=== PATIENT | male | born 1940 | race Caucasian/White ===

== ENCOUNTER 2016-05-09 14:09 | Emergency (ER) | payer OTHER ==
[~2016-05-09] VITALS: Ht 177.8 cm; Wt 90.7 kg
[~2016-05-09 14:09] MED LIST: ALBU8.5H6 IH; ASPI325T11 PO; ASPI325T82 PO; CARV6.252 PO; CRESTOR40 MG PO; DIGO125T PO; FURO20TA3 PO; GABA-586 PO; HYDR-2867 PO; INSU100I13 SQ; INSU100V31 SQ; IPRA3AMP NEB; LISI-334 PO; METF500T4 PO; METO50TA2 PO; OXYC1TAB9 PO; POTA99TA10 PO; PRED-220 PO; RISP1TAB3 PO; WARF2.5T71 PO; WARF5TAB7 PO; Warfarin Sodium MC; [UNRECOGNIZED DRUG - CODE] IJ
[2016-05-09 15:15] VITALS: BP 168/69
[2016-05-09 15:43] LABS: BASO # 0.1 x10^3/uL (0.0-0.2); BASO % 0 % (0-3); EOS % 2 % (0-3); HEMATOCRIT 34.2 % (39.0-53.0); HEMOGLOBIN 10.7 g/dL (13.0-17.5); LYMPH # 0.7 x10^3/uL (1.0-4.8); LYMPH % 5 % (24-48); MEAN CORPUSCULAR HEMOGLOBIN 27 pg (25-35); MEAN CORPUSCULAR HGB CONC 31 g/dL (31-37); MEAN CORPUSCULAR VOLUME 86 fL (79-100); MONO % 6 % (0-9); NEUT % 87 % (31-73); PLATELET COUNT 192 x10^3/uL (140-400); RED BLOOD COUNT 3.96 x10^6/uL (4.30-5.70); RED CELL DISTRIBUTION WIDTH 16.5 % (11.5-14.5); WHITE BLOOD COUNT 13.6 x10^3/uL (4.0-11.0)
[2016-05-09 16:01] LABS: CALCIUM 9.3 mg/dL (8.5-10.1); CREATININE 1.2 mg/dL (0.7-1.3); GFR 59.2; POTASSIUM 4.3 mmol/L (3.5-5.1)
[2016-05-09 16:07] LABS: ALBUMIN 3.5 g/dL (3.4-5.0); ALBUMIN/GLOBULIN RATIO 0.8 (1.0-1.7); TOTAL BILIRUBIN 0.4 mg/dL (0.2-1.0); TOTAL PROTEIN 8.1 g/dL (6.4-8.2)
[2016-05-09] MEDS ORDERED: CLIN300C86 PO (16:28)
--- NOTE | 2016-05-09 16:28 | PHYS DOC ---
Past Medical History Past Medical History: Diabetes-Type II, High Cholesterol, Hypertension, Seizure , Stroke Additional Past Medical Histor: bronchiolitis obliterans, TREMORS Past Surgical History: Appendectomy, Coronary Bypass Surgery, Pacemaker Additional Past Surgical Histo: MULTIPLE TOE AMP, ROTATOR CUFF, BOVINE VALVE, LT HIP Additional Information: quit smoking 40 years ago Alcohol Use: None Drug Use: None Adult General Chief Complaint Chief Complaint: FOOT INJURY PAIN HPI HPI 76-year-old male with severe small vessel peripheral vascular disease status post multiple toe amputations presents with a worsening wound on his right second toe. Patient is hard he had his right great toe amputated. He's been following with Dr. Rios in the wound clinic and there is been some concern that he would need amputation of the second toe sooner rather than later. Family and the patient had noticed that the distal aspect of the toe is purple and is oozing and the ulcer now encompasses the greater portion of the dorsal aspect of the toe. There also is surrounding erythema that is at the metatarsal phalangeal joint. [] Review of Systems Review of Systems Constitutional: Denies fever or chills [] Eyes: Denies change in visual acuity, redness, or eye pain [] HENT: Denies nasal congestion or sore throat [] Respiratory: Denies cough or shortness of breath [] Cardiovascular: No additional information not addressed in HPI [] GI: Denies abdominal pain, nausea, vomiting, bloody stools or diarrhea [] : Denies dysuria or hematuria [] Musculoskeletal: Per history of present illness [] Integument: Denies rash or skin lesions [] Neurologic: Denies headache, focal weakness or sensory changes [] Endocrine: Denies polyuria or polydipsia [] Allergies Allergies Allergies Coded Allergies Type Severity Reaction Last Updated Verified No Known Drug Allergies 02/18/16 No Physical Exam Physical Exam Constitutional: Well developed, well nourished, no acute distress, non-toxic appearance. [] HENT: Normocephalic, atraumatic, bilateral external ears normal, oropharynx moist, no oral exudates, nose normal. [] Eyes: PERRLA, EOMI, conjunctiva normal, no discharge. [] Neck: Normal range of motion, no tenderness, supple, no stridor. [] Cardiovascular:Heart rate regular rhythm, no murmur [] Lungs & Thorax: Bilateral breath sounds clear to auscultation [] Abdomen: Bowel sounds normal, soft, no tenderness, no masses, no pulsatile masses. [] Skin: Warm, dry, no erythema, no rash. [] Back: No tenderness, no CVA tenderness. [] Extremities: Right foot has a great toe amputation and the right second toe has swollen and ecchymotic area to the distal aspect with a small ulcer on the dorsal aspect of the second toe with surrounding erythema to the MTP joint.. [] Neurologic: Alert and oriented X 3, normal motor function, normal sensory function, no focal deficits noted. [] Psychologic: Affect normal, judgement normal, mood normal. [] Current Patient Data Vital Signs Vital Signs Date Time Temp Pulse Resp B/P Pulse Ox O2 Delivery O2 Flow Rate FiO2 05/09/16 15:15 50 18 168/69 94 Room Air 05/09/16 14:21 98.1 98.1 Lab Values Laboratory Tests Test 05/09/16 15:35 White Blood Count 13.6x10^3/uL (4.0-11.0) H Red Blood Count 3.96x10^6/uL (4.30-5.70) L Hemoglobin 10.7g/dL (13.0-17.5) L Hematocrit 34.2% (39.0-53.0) L Mean Corpuscular Volume 86fL (79-100) Mean Corpuscular Hemoglobin 27pg (25-35) Mean Corpuscular Hemoglobin Concent 31g/dL (31-37) Red Cell Distribution Width 16.5% (11.5-14.5) H Platelet Count 192x10^3/uL (140-400) Neutrophils (%) (Auto) 87% (31-73) H Lymphocytes (%) (Auto) 5% (24-48) L Monocytes (%) (Auto) 6% (0-9) Eosinophils (%) (Auto) 2% (0-3) Basophils (%) (Auto) 0% (0-3) Neutrophils # (Auto) 11.8x10^3uL (1.8-7.7) H Lymphocytes # (Auto) 0.7x10^3/uL (1.0-4.8) L Monocytes # (Auto) 0.8x10^3/uL (0.0-1.1) Eosinophils # (Auto) 0.2x10^3/uL (0.0-0.7) Basophils # (Auto) 0.1x10^3/uL (0.0-0.2) Platelet Estimate Pending Sodium Level 137mmol/L (136-145) Potassium Level 4.3mmol/L (3.5-5.1) Chloride Level 100mmol/L (98-107) Carbon Dioxide Level 27mmol/L (21-32) Anion Gap 10 (6-14) Blood Urea Nitrogen 30mg/dL (8-26) H Creatinine 1.2mg/dL (0.7-1.3) Estimated GFR (Cockcroft-Gault) 59.2 BUN/Creatinine Ratio 25 (6-20) H Glucose Level 133mg/dL (70-99) H Calcium Level 9.3mg/dL (8.5-10.1) Total Bilirubin 0.4mg/dL (0.2-1.0) Aspartate Amino Transferase (AST) 14U/L (15-37) L Alanine Aminotransferase (ALT) 19U/L (16-63) Alkaline Phosphatase 82U/L (46-116) Total Protein 8.1g/dL (6.4-8.2) Albumin 3.5g/dL (3.4-5.0) Albumin/Globulin Ratio 0.8 (1.0-1.7) L Laboratory Tests 05/09/16 15:35 Laboratory Tests 05/09/16 15:35 EKG EKG [] Radiology/Procedures Radiology/Procedures [] Course & Med Decision Making Course & Med Decision Making Pertinent Labs and Imaging studies reviewed. 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 I spoke with Dr. Perez our vascular surgeon and he recommended we discharge him home with antibiotics to return this week for a palpitation of the toe. I agree with this assessment. I spoke with the family who also agrees with plan and will be awaiting Dr. Perez's office to call to arrange surgery.] Dragon Disclaimer Dragon Disclaimer This electronic medical record was generated, in whole or in part, using a voice recognition dictation system. Departure Departure Impression: Primary Impression: Gangrene of toe Disposition: 01 HOME, SELF-CARE Condition: STABLE Referrals: MARITZA JONAS (PCP) ARABELLA MCNAMARA MD Call this office if you have not heard from them by tomorrow to arrange surgical follow-up Patient Instructions: Gangrene Additional Instructions: Thank you for allowing us to participate in your care today. Followup with your primary care physician in 3 days if your symptoms do not improve. Return to the emergency department you have any new or concerning findings. This should be evaluated by the primary care physician and any necessary consulting services for continued management within a few days after discharge. Return to emergency room if you have any new or concerning symptoms including but not limited to fever, chills, nausea, vomiting, intractable pain, any new rashes, chest pain, shortness of air, uncontrolled bleeding, difficulty breathing, and/or vision loss. You may have been prescribed medication that can change in your level of thinking and ability to operate machinery. These medications include hydrocodone and Ativan. Also, Benadryl has been known to do this as well. Be sure to check with your pharmacist and ask if the medications you've prescribed can affect your level of consciousness. I recommend not operating heavy machinery or driving while on medication such as these. Scripts Clindamycin Hcl 300 Mg Capsule1 Cap PO TID Infection #30 CAP Prov:LEILA JAIMES DO 05/09/16 LEILA JAIMES DO May 09, 2016 16:28
[2016-05-09 17:51] LABS: % EOS 5 % (0-5)
[2016-05-09 17:54] LABS: ANISOCYTOSIS SLIGHT; OVALOCYTES OCC; PLT ESTIMATE ADEQUATE (ADEQUATE); POLYCHROMASIA SLIGHT
[2016-05-11] MEDS ORDERED: ACET500T68 PO (01:03)
[2016-05-11] MEDS ORDERED: ATORVASTATIN CA80 MG PO (01:03)
[2016-05-11] MEDS ORDERED: FURO20TA3 PO (01:07)
[2016-05-11] MEDS ORDERED: LEVE250T4 PO (01:13)
[2016-05-11] MEDS ORDERED: NPH,100V4 SQ (01:13)
[2016-05-11] MEDS ORDERED: MULT1TAB52 PO (01:16)
[2016-05-11] MEDS ORDERED: OXYC-323 PO (01:17)
[2016-05-11] MEDS ORDERED: ZONI100C PO (01:22)
[2016-05-15] MEDS ORDERED: FURO40TA4 PO (10:07)
[2016-05-15] MEDS ORDERED: DIGO125T PO (10:09)
== END 2016-05-09 16:45 | disposition home or self-care (01) ==
LOC: ER 14:09
DX: I96 Gangrene, not elsewhere classified (principal); I73.9 Peripheral vascular disease, unspecified; E11.9 Type 2 diabetes mellitus without complications; E78.00 Pure hypercholesterolemia, unspecified; I10 Essential (primary) hypertension; Z86.73 Personal history of transient ischemic attack (TIA), and cerebral infarction without residual deficits; Z87.891 Personal history of nicotine dependence; Z95.1 Presence of aortocoronary bypass graft; Z96.89 Presence of other specified functional implants; Z89.421 Acquired absence of other right toe(s)
CPT/HCPCS: 36415; 80053; 85007; 85027; 99284

== ENCOUNTER 2018-05-18 12:52 | Inpatient (IN) | payer MEDICARE, OTHER ==
[~2018-05-18] VITALS: Ht 177.8 cm; Wt 103.2 kg
[2018-05-18] VITALS (7 sets, daily range): BP systolic 100–135; BP diastolic 42–89
[~2018-05-18 12:52] MED LIST changes: +ACET500T68 PO; +ATORVASTATIN CA80 MG PO; +CARV6.2511 PO; -CARV6.252 PO; +CLIN300C8 PO; +FURO40TA4 PO; -GABA-586 PO; +GABA300C18 PO; -IPRA3AMP NEB; +IPRA3AMP29 NEB; +LEVE250T4 PO; +METF500T16 PO; -METF500T4 PO; -METO50TA2 PO; +METO50TA6 PO; +MULT1TAB52 PO; +NPH,100V5 SQ; +OXYC-411 PO; +OXYC1TAB15 PO; -OXYC1TAB9 PO; +WARF-31 PO; -WARF5TAB7 PO; +ZONI100C PO
[2018-05-18] MEDS ORDERED: VANCOMYCIN PER PHARMACY MC ONE (13:00)
[2018-05-18] MEDS ORDERED: PIPERACILLIN/TAZOBACTAM 4.5 GM in IV NORMAL SALINE 100ML 100 ML IV ONE (13:00)
[2018-05-18] MEDS ORDERED: VANCOMYCIN 2 GM in IV NORMAL SALINE 500ML BAG 500 ML IV ONE (13:15)
[2018-05-18] MEDS: IV NORMAL SALINE 1000ML BAG 1,000 ML IV SCH ×2 (13:24→14:36)
[2018-05-18 13:25] LABS: BASO # 0.1 x10^3/uL (0.0-0.2); BASO % 1 % (0-3); EOS % 0 % (0-3); HEMATOCRIT 36.4 % (39.0-53.0); HEMOGLOBIN 11.5 g/dL (13.0-17.5); LYMPH # 0.3 x10^3/uL (1.0-4.8); LYMPH % 1 % (24-48); MEAN CORPUSCULAR HEMOGLOBIN 27 pg (25-35); MEAN CORPUSCULAR HGB CONC 32 g/dL (31-37); MEAN CORPUSCULAR VOLUME 84 fL (79-100); MONO # 1.2 x10^3/uL (0.0-1.1); MONO % 6 % (0-9); NEUT # 19.2 x10^3uL (1.8-7.7); NEUT % 92 % (31-73); PLATELET COUNT 228 x10^3/uL (140-400); RED BLOOD COUNT 4.33 x10^6/uL (4.30-5.70); RED CELL DISTRIBUTION WIDTH 15.5 % (11.5-14.5); WHITE BLOOD COUNT 20.8 x10^3/uL (4.0-11.0)
[2018-05-18 13:32] LABS: CREATININE 1.5 mg/dL (0.7-1.3); GFR 45.5; POTASSIUM 3.6 mmol/L (3.5-5.1)
[2018-05-18 13:35] LABS: PROTHROMBIN TIME PATIENT 44.9 SEC (11.7-14.0)
[2018-05-18 13:38] LABS: ALBUMIN 2.7 g/dL (3.4-5.0); ALBUMIN/GLOBULIN RATIO 0.5 (1.0-1.7); TOTAL BILIRUBIN 0.7 mg/dL (0.2-1.0); TOTAL PROTEIN 7.9 g/dL (6.4-8.2)
[2018-05-18 13:47] LABS: % BANDS 15 % (0-9); % BASOS 1 % (0-3); % LYMPHS 1 % (24-48); % MONOS 9 % (0-10); % SEGS 74 % (35-66)
[2018-05-18 13:52] LABS: PLT ESTIMATE ADEQUATE (ADEQUATE)
[2018-05-18 13:53] LABS: ANISOCYTOSIS SLIGHT; TOXIC VACUOLATION PRESENT
[2018-05-18] MEDS ORDERED: IV NORMAL SALINE 1000ML BAG 1,000 ML IV SCH (14:43)
[2018-05-18] MEDS ORDERED: ONDANSETRON PF 4 MG/2 ML VIAL. IV PRN ×2 (14:45→15:30)
[2018-05-18] MEDS ORDERED: fentaNYL PF VIAL 100 MCG/2 ML VIAL IV PRN (14:45)
--- NOTE | 2018-05-18 14:53 | RAD ---
PORTABLE CHEST 1V Clinical indications: FEVER COMPARISON: May 10, 2016. Findings: No acute lung infiltrate or pleural effusion or pulmonary edema or lung mass or pneumothorax is seen. The heart size, pulmonary vasculature, mediastinum and both lisette are stable. Impression: No acute radiographic abnormality is seen. Electronically signed by: Darío Madison MD (05/18/2018 2:50 PM) [id number]
--- NOTE | 2018-05-18 14:55 | RAD ---
3 view study of the right foot Clinical indications: Right toe is black. FINDINGS: Amputation of the first and second digits is seen at the midshaft of the first and second proximal phalanges. No lytic process is seen. No fracture or dislocation is seen. No soft tissue air is seen. IMPRESSION: No osteomyelitis is evident radiographically. Electronically signed by: Darío Madison MD (05/18/2018 2:52 PM) [id number]
--- NOTE | 2018-05-18 15:06 | PHYS DOC ---
Past Medical History Past Medical History: Diabetes-Type II, High Cholesterol, Hypertension, Seizure , Stroke Additional Past Medical Histor: bronchiolitis obliterans, TREMORS,NECROTIC RT TOES, RT HEEL, LT OUTER ANKLE Past Surgical History: Appendectomy, Coronary Bypass Surgery Additional Past Surgical Histo: MULTIPLE TOE AMP, ROTATOR CUFF, BOVINE VALVE, LT HIP Alcohol Use: None Drug Use: None Adult General Chief Complaint Chief Complaint: FEVER HPI HPI 78-year-old male presenting to the emergency department today with fever and worsening toe necrosis of the right toes. He feels chills and has mild pain in the foot that is sharp shooting nonradiating and intermittent. He has been developing fevers over the past few days. His home health care nurse feels that he needs to be admitted and possibly of time the patient's. Past medical history: Diabetes hyperlipidemia hypertension and seizure disorder history of stroke and necrotic toes in the past on the right along with CHF. Surgical history: History of appendectomy and CABG along with the limitations. History of rotator cuff surgery, bovine valve and left hip surgery. Social history: Former smoker, denies drinking or drug use. Review of systems is negative for chest pain shortness of breath cough abdominal pain vomiting. All other review of systems is negative. ED course: 78-year-old male presenting the emergency department today with right toe necrosis and fever with tachycardia concerning for sepsis. Patient was placed on sepsis alert immediately upon arrival and broad-spectrum antibiotics were initiated along with large IV fluid resuscitation. X-rays not suggestive of osteomyelitis. Chest x-ray unremarkable. Blood work shows significant leukocytosis. INR is elevated at 4.8. Chemistry panel shows creatinine of 1.5. Otherwise lactic acid is 1.7. Admit the patient to the intensive care unit for further treatment and care. I spoke with Dr. Rosa excepted the patient for admission. I am currently trying to page vascular surgery for consultation of necrotic toe amputation. Basic bridge orders placed. Current Medications Current Medications Current Medications Medications (Trade) Dose Ordered Sig/Ana Start Time Stop Time Status Last Admin Dose Admin Fentanyl Citrate (Fentanyl 2ml Vial) 50 mcg PRN Q1HR PRN 05/18/18 14:45 05/19/18 14:44 Ondansetron HCl (Zofran) 4 mg PRN Q8HRS PRN 05/18/18 14:45 05/19/18 14:44 Piperacillin Sod/ Tazobactam Sod 4.5 gm/Sodium Chloride 100 ml @ 200 mls/hr 1X ONCE 05/18/18 13:00 05/18/18 13:29 DC 05/18/18 14:34 200 MLS/HR Sodium Chloride 1,000 ml @ 80 mls/hr [id number] 05/18/18 14:43 05/18/18 18:42 Vancomycin HCl (Vanco Per Pharmacy) 1 each 1X ONCE 05/18/18 13:00 05/18/18 13:11 DC Vancomycin HCl 2 gm/Sodium Chloride 500 ml @ 250 mls/hr 1X ONCE 05/18/18 13:15 05/18/18 15:14 Allergies Allergies Allergies Coded Allergies Type Severity Reaction Last Updated Verified No Known Drug Allergies 05/12/16 No Physical Exam Physical Exam Constitutional: Well developed, well nourished, no acute distress, non-toxic appearance. [] HENT: Normocephalic, atraumatic, bilateral external ears normal, oropharynx moist, no oral exudates, nose normal. [] Eyes: PERRLA, EOMI, conjunctiva normal, no discharge. [] Neck: Normal range of motion, no tenderness, supple, no stridor. [] Cardiovascular:Heart rate regular rhythm, no murmur [] Lungs & Thorax: Bilateral breath sounds clear to auscultation [] Abdomen: Bowel sounds normal, soft, no tenderness, no masses, no pulsatile masses. [] Skin: Warm, dry, no erythema, no rash. [] Back: No tenderness, no CVA tenderness. [] Extremities: The patient's right third phalanx is black and necrotic. Otherwise the patient has chronic wounds over the right foot. The patient's left foot has a small wound on the left lateral malleolus. The remainder the extremities are nontender and otherwise unremarkable. Neurologic: Alert and oriented X 3, normal motor function, normal sensory function, no focal deficits noted. [] Psychologic: Affect normal, judgement normal, mood normal. [] Current Patient Data Vital Signs Vital Signs Date Time Temp Pulse Resp B/P (MAP) Pulse Ox O2 Delivery O2 Flow Rate FiO2 05/18/18 13:04 102.2 121 14 134/73 (93) 92 Room Air 102.2 Lab Values Laboratory Tests Test 05/18/18 13:10 White Blood Count 20.8 x10^3/uL (4.0-11.0) H Red Blood Count 4.33 x10^6/uL (4.30-5.70) Hemoglobin 11.5 g/dL (13.0-17.5) L Hematocrit 36.4 % (39.0-53.0) L Mean Corpuscular Volume 84 fL (79-100) Mean Corpuscular Hemoglobin 27 pg (25-35) Mean Corpuscular Hemoglobin Concent 32 g/dL (31-37) Red Cell Distribution Width 15.5 % (11.5-14.5) H Platelet Count 228 x10^3/uL (140-400) Neutrophils (%) (Auto) 92 % (31-73) H Lymphocytes (%) (Auto) 1 % (24-48) L Monocytes (%) (Auto) 6 % (0-9) Eosinophils (%) (Auto) 0 % (0-3) Basophils (%) (Auto) 1 % (0-3) Neutrophils # (Auto) 19.2 x10^3uL (1.8-7.7) H Lymphocytes # (Auto) 0.3 x10^3/uL (1.0-4.8) L Monocytes # (Auto) 1.2 x10^3/uL (0.0-1.1) H Eosinophils # (Auto) 0.0 x10^3/uL (0.0-0.7) Basophils # (Auto) 0.1 x10^3/uL (0.0-0.2) Segmented Neutrophils % 74 % (35-66) H Band Neutrophils % 15 % (0-9) H Lymphocytes % 1 % (24-48) L Monocytes % 9 % (0-10) Basophils % 1 % (0-3) Toxic Vacuolation Present Platelet Estimate Adequate (ADEQUATE) Anisocytosis Slight Prothrombin Time 44.9 SEC (11.7-14.0) H Prothrombin Time INR 4.8 (0.8-1.1) *H Sodium Level 139 mmol/L (136-145) Potassium Level 3.6 mmol/L (3.5-5.1) Chloride Level 98 mmol/L (98-107) Carbon Dioxide Level 29 mmol/L (21-32) Anion Gap 12 (6-14) Blood Urea Nitrogen 22 mg/dL (8-26) Creatinine 1.5 mg/dL (0.7-1.3) H Estimated GFR (Cockcroft-Gault) 45.5 BUN/Creatinine Ratio 15 (6-20) Glucose Level 110 mg/dL (70-99) H Lactic Acid Level 1.7 mmol/L (0.4-2.0) Calcium Level 9.0 mg/dL (8.5-10.1) Total Bilirubin 0.7 mg/dL (0.2-1.0) Aspartate Amino Transferase (AST) 20 U/L (15-37) Alanine Aminotransferase (ALT) 13 U/L (16-63) L Alkaline Phosphatase 78 U/L (46-116) Total Protein 7.9 g/dL (6.4-8.2) Albumin 2.7 g/dL (3.4-5.0) L Albumin/Globulin Ratio 0.5 (1.0-1.7) L Lipase 21 U/L (73-393) L Laboratory Tests 05/18/18 13:10 Laboratory Tests 05/18/18 13:10 EKG EKG [] Radiology/Procedures Radiology/Procedures [] Course & Med Decision Making Course & Med Decision Making Pertinent Labs and Imaging studies reviewed. (See chart for details) [] Dragon Disclaimer Dragon Disclaimer This electronic medical record was generated, in whole or in part, using a voice recognition dictation system. Departure Departure Impression: Primary Impression: Gangrene of toe Additional Impressions: Severe sepsis Fever Leukocytosis Disposition: ADMITTED INPATIENT Admitting Physician: Mckenzie Rosa Condition: IMPROVED Referrals: NO PCP (PCP) Problem Qualifiers BOB BERRIOS MD May 18, 2018 15:06
[2018-05-18] MEDS ORDERED: ALBUTEROL SULFATE 8GM INHALER. IH PRN (15:30)
[2018-05-18] MEDS ORDERED: ACETAMINOPHEN 500 MG TABLET PO PRN (15:30)
[2018-05-18] MEDS ORDERED: oxyCODONE/APAP 5/325 1 TAB TABLET PO PRN (15:30)
[2018-05-18] MEDS ORDERED: dilTIAZem IV PUSH 25 MG/5 ML VIAL IVP ONE (15:30)
[2018-05-18] MEDS ORDERED: ACETAMINOPHEN 325 MG TABLET. PO ONE (15:30)
--- NOTE | 2018-05-18 15:36 | PDOC1 ---
History and Physical Date of Admission Date of Admission DATE: 05/18/18 TIME: 15:30 Identification/Chief Complaint Chief Complaint confusion, gangrenous right toes Source Source: Caregiver, Chart review, Patient History of Present Illness History of Present Illness MOst of the history obtained from the as patient is acutely ill. 78-year-old white male, known patient of our vascular team because of previous toe amputations and is being followed for PAD. Comes in because of more confusion noted by and home health RN. He has obvious gangrenous toes 2 digits. He already has some amputated toes on the right foot. He was previously on hospice, prev DNR but now both of them cannot answer me if he is a full code or DNR. They wish to be a full code for now but they're papers at home and akilah will get it tmr. In any case the toes are gangrenous and he is severely septic with tachycardia A. fib RVR. - Known history of A. fib and on warfarin. Leukocyte 20s, and elevated lactate and temperature 102. Lactate 1.7. INR 4.8 with no bleeding but maintained on warfarin for prosthetic valve too?. He also has diabetes on insulin with unknown A1c. He is better with IV fluids with sepsis protocol but to admit to ICU because of A. fib RVR septis severe, elevated lactate, fevers leukocytosis, gangrenous toes. I will consult vascular surgery as he is knwon to them plus ID. Blood cultures we will draw prior to antibiotics Seen at ER 23 Past Medical History Cardiovascular: AFIB, HTN, CT Pulmonary: Asthma, Bronchitis, COPD, Pneumonia, Other CENTRAL NERVOUS SYSTEM: CVA, Periperal neuropathy GI: Other Heme/Onc: No pertinent hx Hepatobiliary: No pertinent hx Psych: Depression Musculoskeletal: Osteoarthritis Rheumatologic: No pertinent hx Infectious disease: No pertinent hx Renal/: Other Endocrine: Diabetes Past Surgical History Past Surgical History: Pacemaker, Appendectomy, CABG, Other Family History Family History: Coronary Artery Disease Social History Smoke: No ALCOHOL: none Drugs: None Current Problem List Problem List Problems Medical Problems: (1) Fever Status: Acute (2) Gangrene of toe Status: Acute (3) Leukocytosis Status: Acute (4) Severe sepsis Status: Acute Current Medications Current Medications Current Medications Sodium Chloride 1,000 ml @ 2,190 mls/hr Q28M IV Last administered on at 14:36; Start 05/18/18 at 12:52; Stop 05/18/18 at 13:52; Status DC Piperacillin Sod/ Tazobactam Sod 4.5 gm/Sodium Chloride 100 ml @ 200 mls/hr 1X ONCE IV Last administered on 05/18/18at 14:34; Start 05/18/18 at 13:00; Stop 05/18/18 at 13:29; Status DC Vancomycin HCl (Vanco Per Pharmacy) 1 each 1X ONCE MC ; Start 05/18/18 at 13:00 ; Stop 05/18/18 at 13:11; Status DC Vancomycin HCl 2 gm/Sodium Chloride 500 ml @ 250 mls/hr 1X ONCE IV Last administered on 05/18/18at 15:28; Start 05/18/18 at 13:15; Stop 05/18/18 at 15:14 ; Status DC Ondansetron HCl (Zofran) 4 mg PRN Q8HRS PRN IV NAUSEA/VOMITING; Start 05/18/18 at 14:45; Stop 05/18/18 at 15:28; Status DC Fentanyl Citrate (Fentanyl 2ml Vial) 50 mcg PRN Q1HR PRN IV PAIN; Start at 14:45; Stop 05/19/18 at 14:44 Sodium Chloride 1,000 ml @ 80 mls/hr [id number] IV ; Start 05/18/18 at 14:43; Stop 05/18/18 at 18:42 Acetaminophen (Tylenol) 650 mg 1X ONCE PO Last administered on 05/18/18at 15:29 ; Start 05/18/18 at 15:30; Stop 05/18/18 at 15:31 Ondansetron HCl (Zofran) 4 mg PRN Q6HRS PRN IV NAUSEA/VOMITING; Start 05/18/18 at 15:30; Status UNV Diltiazem HCl (Cardizem Iv Push) 10 mg 1X ONCE IVP ; Start 05/18/18 at 15:30; Stop 05/18/18 at 15:31; Status UNV Acetaminophen (Tylenol) 500 mg PRN Q6HRS PRN PO MILD PAIN / TEMP; Start at 15:30; Status UNV Acetaminophen/ Codeine Phosphate (Tylenol #3) 1 tab PRN Q6HRS PRN PO PAIN; Start 05/18/18 at 15:30; Status UNV Morphine Sulfate (Morphine Sulfate) 2 mg PRN Q2HR PRN IV PAIN; Start 05/18/18 at 15:30; Status UNV Oxycodone/ Acetaminophen (Percocet 5/325) 1 tab PRN Q4HRS PRN PO PAIN; Start at 15:30; Status UNV Active Scripts Active Digoxin 125 Mcg Tablet 125 Mcg PO DAILY Furosemide 40 Mg Tablet 40 Mg PO DAILY Metoprolol Tartrate 50 Mg Tablet 50 Mg PO BID [Warfarin Sodium] 1 EACH Each 1 Each MC PRN DAILY PRN Lisinopril 20 Mg Tablet 20 Mg PO DAILY Duoneb 0.5-3(2.5) Mg/3 Ml (Albuterol/Ipratropium) 3 Ml Ampul.neb 3 Ml NEB Q4HRS W/A 30 Days Hydralazine Hcl 10 Mg Tablet 10 Mg PO TID Reported Zonisamide 100 Mg Capsule 400 Mg PO DAILY Percocet 5-325 Mg Tablet (Oxycodone/Acetaminophen) 1 Each Tablet 1 Tab PO PRN Q4HRS PRN Multivitamins (Multivitamin) 1 Each Tablet 1 Tab PO DAILY Levetiracetam 250 Mg Tablet 1,250 Mg PO BID Novolin N (Nph, Human Insulin Isophane) 100 Unit/1 Ml Vial Unknown Dose SQ Atorvastatin Calcium 80 Mg Tablet 1 Tab PO DAILY Acetaminophen 500 Mg Tablet 1 Tab PO PRN Q6HRS PRN Albuterol Sulfate Hfa Inhaler (Albuterol Sulfate) 8.5 Gm Hfa.aer.ad 2 Puff IH PRN Q6HRS PRN Aspirin Ec (Aspirin) 325 Mg Tablet.dr 81 Mg PO DAILY Crestor (Rosuvastatin Calcium) 40 Mg Tablet 40 Mg PO DAILY Warfarin Sodium 5 Mg Tablet 6 Mg PO DAILY Warfarin Sodium 2.5 Mg Tablet 2.5 Mg PO 3X/WEEK monday,monday, Gabapentin (Gabapentin) 300 Mg Capsule 300 Mg PO DAILY Risperidone 1 Mg Tablet 1 Mg PO HS Novolog (Insulin Aspart) 100 Unit/1 Ml Vial 10 Unit SQ DAILYAC Oxycodone-Acetaminophen 10-325 (Oxycodone Hcl/Acetaminophen) 1 Each Tablet 1 Each PO PRN Q6HRS Potassium 99 Mg Tablet 20 Meq PO DAILY Prednisone (Prednisone) 10 Mg Tablet 10 Mg PO DAILY Metformin Hcl 500 Mg Tablet 1,000 Mg PO BIDBFRMEAL Allergies Allergies: Coded Allergies: No Known Drug Allergies (Unverified , 05/12/16) ROS Review of System Limited he cannot participate as he is acutely ill Physical Exam General: No acute distress, Other (he refuses to talk, comfortable but looks sick, A. fib RVR) HEENT: Atraumatic, PERRLA, EOMI, Mucous membr. moist/pink Lungs: Normal air movement, Other (symmetrical chest expansion no crackles or wheezing) Heart: S1S2, no thrills, no rubs, no gallops, no murmurs, irregularly irregular Cardiovascular: S1, S2 Abdomen: Normal bowel sounds, Soft, No tenderness, No hepatosplenomegaly, No masses Male Genitals Exam: normal genitalia, normal prostate Extremities: No edema, Other (diminished pulses) Skin: Other (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 and 2 gangrenous toes on the right, chronic hyperpigmentation bilateral shins and foot) Vitals Vitals Vital Signs Date Time Temp Pulse Resp B/P (MAP) Pulse Ox O2 Delivery O2 Flow Rate FiO2 05/18/18 13:04 102.2 121 14 134/73 (93) 92 Room Air 102.2 Labs Labs Laboratory Tests Test 05/18/18 13:10 White Blood Count 20.8 x10^3/uL (4.0-11.0) Red Blood Count 4.33 x10^6/uL (4.30-5.70) Hemoglobin 11.5 g/dL (13.0-17.5) Hematocrit 36.4 % (39.0-53.0) Mean Corpuscular Volume 84 fL (79-100) Mean Corpuscular Hemoglobin 27 pg (25-35) Mean Corpuscular Hemoglobin Concent 32 g/dL (31-37) Red Cell Distribution Width 15.5 % (11.5-14.5) Platelet Count 228 x10^3/uL (140-400) Neutrophils (%) (Auto) 92 % (31-73) Lymphocytes (%) (Auto) 1 % (24-48) Monocytes (%) (Auto) 6 % (0-9) Eosinophils (%) (Auto) 0 % (0-3) Basophils (%) (Auto) 1 % (0-3) Neutrophils # (Auto) 19.2 x10^3uL (1.8-7.7) Lymphocytes # (Auto) 0.3 x10^3/uL (1.0-4.8) Monocytes # (Auto) 1.2 x10^3/uL (0.0-1.1) Eosinophils # (Auto) 0.0 x10^3/uL (0.0-0.7) Basophils # (Auto) 0.1 x10^3/uL (0.0-0.2) Segmented Neutrophils % 74 % (35-66) Band Neutrophils % 15 % (0-9) Lymphocytes % 1 % (24-48) Monocytes % 9 % (0-10) Basophils % 1 % (0-3) Toxic Vacuolation Present Platelet Estimate Adequate (ADEQUATE) Anisocytosis Slight Prothrombin Time 44.9 SEC (11.7-14.0) Prothromb Time International Ratio 4.8 (0.8-1.1) Sodium Level 139 mmol/L (136-145) Potassium Level 3.6 mmol/L (3.5-5.1) Chloride Level 98 mmol/L (98-107) Carbon Dioxide Level 29 mmol/L (21-32) Anion Gap 12 (6-14) Blood Urea Nitrogen 22 mg/dL (8-26) Creatinine 1.5 mg/dL (0.7-1.3) Estimated GFR (Cockcroft-Gault) 45.5 BUN/Creatinine Ratio 15 (6-20) Glucose Level 110 mg/dL (70-99) Lactic Acid Level 1.7 mmol/L (0.4-2.0) Calcium Level 9.0 mg/dL (8.5-10.1) Total Bilirubin 0.7 mg/dL (0.2-1.0) Aspartate Amino Transf (AST/SGOT) 20 U/L (15-37) Alanine Aminotransferase (ALT/SGPT) 13 U/L (16-63) Alkaline Phosphatase 78 U/L (46-116) Total Protein 7.9 g/dL (6.4-8.2) Albumin 2.7 g/dL (3.4-5.0) Albumin/Globulin Ratio 0.5 (1.0-1.7) Lipase 21 U/L (73-393) Laboratory Tests Test 05/18/18 13:10 White Blood Count 20.8 x10^3/uL (4.0-11.0) Red Blood Count 4.33 x10^6/uL (4.30-5.70) Hemoglobin 11.5 g/dL (13.0-17.5) Hematocrit 36.4 % (39.0-53.0) Mean Corpuscular Volume 84 fL (79-100) Mean Corpuscular Hemoglobin 27 pg (25-35) Mean Corpuscular Hemoglobin Concent 32 g/dL (31-37) Red Cell Distribution Width 15.5 % (11.5-14.5) Platelet Count 228 x10^3/uL (140-400) Neutrophils (%) (Auto) 92 % (31-73) Lymphocytes (%) (Auto) 1 % (24-48) Monocytes (%) (Auto) 6 % (0-9) Eosinophils (%) (Auto) 0 % (0-3) Basophils (%) (Auto) 1 % (0-3) Neutrophils # (Auto) 19.2 x10^3uL (1.8-7.7) Lymphocytes # (Auto) 0.3 x10^3/uL (1.0-4.8) Monocytes # (Auto) 1.2 x10^3/uL (0.0-1.1) Eosinophils # (Auto) 0.0 x10^3/uL (0.0-0.7) Basophils # (Auto) 0.1 x10^3/uL (0.0-0.2) Segmented Neutrophils % 74 % (35-66) Band Neutrophils % 15 % (0-9) Lymphocytes % 1 % (24-48) Monocytes % 9 % (0-10) Basophils % 1 % (0-3) Toxic Vacuolation Present Platelet Estimate Adequate (ADEQUATE) Anisocytosis Slight Prothrombin Time 44.9 SEC (11.7-14.0) Prothromb Time International Ratio 4.8 (0.8-1.1) Sodium Level 139 mmol/L (136-145) Potassium Level 3.6 mmol/L (3.5-5.1) Chloride Level 98 mmol/L (98-107) Carbon Dioxide Level 29 mmol/L (21-32) Anion Gap 12 (6-14) Blood Urea Nitrogen 22 mg/dL (8-26) Creatinine 1.5 mg/dL (0.7-1.3) Estimated GFR (Cockcroft-Gault) 45.5 BUN/Creatinine Ratio 15 (6-20) Glucose Level 110 mg/dL (70-99) Lactic Acid Level 1.7 mmol/L (0.4-2.0) Calcium Level 9.0 mg/dL (8.5-10.1) Total Bilirubin 0.7 mg/dL (0.2-1.0) Aspartate Amino Transf (AST/SGOT) 20 U/L (15-37) Alanine Aminotransferase (ALT/SGPT) 13 U/L (16-63) Alkaline Phosphatase 78 U/L (46-116) Total Protein 7.9 g/dL (6.4-8.2) Albumin 2.7 g/dL (3.4-5.0) Albumin/Globulin Ratio 0.5 (1.0-1.7) Lipase 21 U/L (73-393) VTE Prophylaxis Ordered VTE Prophylaxis Devices: Yes VTE Pharmacological Prophylaxi: Yes Assessment/Plan Assessment/Plan Severe sepsis with gangrenous toes A. fib RVR Supra therapeutic INR 4.8 Elevated lactate 1.7 AK I creatinine 1.5 Leukocytosis 20, fever temperature 102 Diabetes type 2 on insulin History PAD-known to vascular surgery Prosthetic heart valve?-Maintained on warfarin Plan ICU admit Usually follows with Dr Robledo Consult cards regarding A. fib RVR Cardizem push now Drip if needed for RVR Empiric antibiotics after blood cultures - ID consult Vasc surgery consult Wound care consult He will need another toes amputation Monitor for further fevers Full code Previous was on hospice- revoked for this admission Seen in ER #[id number] and discussed with at bedside ARABELLA MARTINEZ MD May 18, 2018 15:36
[2018-05-18] MEDS: hydrALAZINE 10 MG TABLET PO SCH ×2 (16:00→21:19)
--- NOTE | 2018-05-18 16:10 | PDOC2 ---
VERONIKA VANCE TRAVELING ELECTRICIAN 05/18/18 1610: CARDIAC CONSULT DATE OF CONSULT Date of Consult DATE: 05/18/18 TIME: 15:46 REASON FOR CONSULT Reason for Consult: AFIB RVR REFERRING PHYSICIAN Referring Physician: Shelley SOURCE Source: Chart review HISTORY OF PRESENT ILLNESS HISTORY OF PRESENT ILLNESS This is a 78 yo male admitted for necrotic right toes. He has been having pain to his right foot and chills and fever and was noted by home health that his condition is getting worse. He does have AFIB paroxysmal by hx. He sees Dr. Castillo in . I talked to his spouse and initially noted black tissue to his toes about a week ago. Pt denies any chest pain , SOA and no palpitations. No nausea or vomiting or diarrhea. He has significant cardiac history and past sepsis and bacteremia in the past as noted below. Consult is for AFIB RVR and presently his HR is better after IVF and fever control 90-110. No recent falls, injury and passing out. PAST MEDICAL HISTORY Past Medical History Cardiovascular: AFIB, CAD, CHF, HTN, ND, Hyperlipidemia, ascending aorta dilatation: 4 cm, SSS, severe PAD Pulmonary: COPD, bronchiolitis obliterans CENTRAL NERVOUS SYSTEM: Dementia, tonic clonic seizure, DPN GI: GERD Heme/Onc: anemia Hepatobiliary: No pertinent hx Psych: anxiety, depression Musculoskeletal: Osteoarthritis Rheumatologic: No pertinent hx Infectious disease: Hx of pseudomonas ENT: No pertinent hx Renal/: No pertinent hx Endocrine: Diabetes (2) Dermatology: foot ulcer PAST SURGICAL HISTORY Past Surgical History Pacemaker and removal in 2017, CABG (with bioprosthetic valve), bilateral LE arterial stents, toe amputations FAMILY HISTORY Family History: Coronary Artery Disease (mother and father) SOCIAL HISTORY Social History Smoke: No (quit remotely 17 pk yr) ALCOHOL: none Drugs: None Lives: with Family CURRENT MEDICATIONS CURRENT MEDICATIONS Current Medications Medications (Trade) Dose Ordered Sig/Ana Route PRN Reason Start Time Stop Time Status Last Admin Dose Admin Sodium Chloride 1,000 ml @ 2,190 mls/hr Q28M IV 05/18/18 12:52 05/18/18 13:52 DC 05/18/18 14:36 Piperacillin Sod/ Tazobactam Sod 4.5 gm/Sodium Chloride 100 ml @ 200 mls/hr 1X ONCE IV 05/18/18 13:00 05/18/18 13:29 DC 05/18/18 14:34 Vancomycin HCl 2 gm/Sodium Chloride 500 ml @ 250 mls/hr 1X ONCE IV 05/18/18 13:15 05/18/18 15:14 DC 05/18/18 15:28 Acetaminophen (Tylenol) 650 mg 1X ONCE PO 05/18/18 15:30 05/18/18 15:31 DC 05/18/18 15:29 ALLERGIES ALLERGIES: Coded Allergies: No Known Drug Allergies (Unverified , 05/12/16) ROS Review of System 14 point ROS evaluated with pertinent positives noted per HPI PHYSICAL EXAM General: Alert, Oriented X3, Cooperative, No acute distress HEENT: Atraumatic, Mucous membr. moist/pink Lungs: Clear to auscultation, Normal air movement Heart: Other (AFIB) Abdomen: Soft, No tenderness, Other (obese) Extremities: Other (1+ edema pitting to bilateral LE; erythema to ankle to feet worse to left foot with gangrenous/necrotic toes) Neuro: Normal speech, Sensation intact Psych/Mental Status: Mental status NL, Mood NL MUSCULOSKELETAL: Osteoarthritic changes both hands VITALS VITALS Vital Signs Date Time Temp Pulse Resp B/P (MAP) Pulse Ox O2 Delivery O2 Flow Rate FiO2 05/18/18 13:04 102.2 121 14 134/73 (93) 92 Room Air 102.2 LABS Lab: Laboratory Tests Test 05/18/18 13:10 White Blood Count 20.8 x10^3/uL (4.0-11.0) Red Blood Count 4.33 x10^6/uL (4.30-5.70) Hemoglobin 11.5 g/dL (13.0-17.5) Hematocrit 36.4 % (39.0-53.0) Mean Corpuscular Volume 84 fL (79-100) Mean Corpuscular Hemoglobin 27 pg (25-35) Mean Corpuscular Hemoglobin Concent 32 g/dL (31-37) Red Cell Distribution Width 15.5 % (11.5-14.5) Platelet Count 228 x10^3/uL (140-400) Neutrophils (%) (Auto) 92 % (31-73) Lymphocytes (%) (Auto) 1 % (24-48) Monocytes (%) (Auto) 6 % (0-9) Eosinophils (%) (Auto) 0 % (0-3) Basophils (%) (Auto) 1 % (0-3) Neutrophils # (Auto) 19.2 x10^3uL (1.8-7.7) Lymphocytes # (Auto) 0.3 x10^3/uL (1.0-4.8) Monocytes # (Auto) 1.2 x10^3/uL (0.0-1.1) Eosinophils # (Auto) 0.0 x10^3/uL (0.0-0.7) Basophils # (Auto) 0.1 x10^3/uL (0.0-0.2) Segmented Neutrophils % 74 % (35-66) Band Neutrophils % 15 % (0-9) Lymphocytes % 1 % (24-48) Monocytes % 9 % (0-10) Basophils % 1 % (0-3) Toxic Vacuolation Present Platelet Estimate Adequate (ADEQUATE) Anisocytosis Slight Prothrombin Time 44.9 SEC (11.7-14.0) Prothromb Time International Ratio 4.8 (0.8-1.1) Sodium Level 139 mmol/L (136-145) Potassium Level 3.6 mmol/L (3.5-5.1) Chloride Level 98 mmol/L (98-107) Carbon Dioxide Level 29 mmol/L (21-32) Anion Gap 12 (6-14) Blood Urea Nitrogen 22 mg/dL (8-26) Creatinine 1.5 mg/dL (0.7-1.3) Estimated GFR (Cockcroft-Gault) 45.5 BUN/Creatinine Ratio 15 (6-20) Glucose Level 110 mg/dL (70-99) Lactic Acid Level 1.7 mmol/L (0.4-2.0) Calcium Level 9.0 mg/dL (8.5-10.1) Total Bilirubin 0.7 mg/dL (0.2-1.0) Aspartate Amino Transf (AST/SGOT) 20 U/L (15-37) Alanine Aminotransferase (ALT/SGPT) 13 U/L (16-63) Alkaline Phosphatase 78 U/L (46-116) Total Protein 7.9 g/dL (6.4-8.2) Albumin 2.7 g/dL (3.4-5.0) Albumin/Globulin Ratio 0.5 (1.0-1.7) Lipase 21 U/L (73-393) ECHOCARDIOGRAM ECHOCARDIOGRAM CRYSTAL <Conclusion> Left ventricle systolic function is mildly impaired. The Ejection Fraction is 40-45%. Abnormal septal motion probably secondary to post-op state vs paced rhythm Pacemaker lead noted in the right atrium and rightventricle. Mobile vegitations/thrombi (approx 1.0x0.6 cm size) noted on the Right Atrial lead. Bioprosthetic aortic valve appears well seated and functioning well. Mild aortic regurgitation. Mild mitral regurgitation. Mild tricuspid regurgitation. There is no evidence of significant pericardial effusion. DATE: 02/19/16 1440 <Conclusion> TTE Left ventricle ejection fraction is mildly impaired. The Ejection Fraction is 40 -45%. Septal motion consistent with postoperative state. A pacemaker lead wire is noted in the right ventricular apex. A bovine prosthetic valve is noted in place without any significant stenosis or regurgitation. The ascending aorta is mildly dilated at 4.0 cm DATE: 02/16/16 1605 ASSESSMENT/PLAN ASSESSMENT/PLAN 1. Fever/right toe gangrene/necrosis with hx of severe LE PAD/stents; will need amputation, vascular consult pending 2. AFIB RVR; paroxysmal by hx. Currently with mild RVR which is reactive to above. 3. CAD/AVR (bioprosthetic): Past PCI/stent to RCA/LCx 2006. 10/29/2012. CABG x4 ( AGUILAR to LAD, SVG to D2, SVG to OM and SVG to PDA and with bovine AVR 4. Ischemic cardiomyopathy/chronic diastolic/systolic CHF: compensated 5. Hx of PPM due SSS but was removed due to infection and was noted at that time that he was not pacer dependent 6. DM2/HLP: uncontrolled. per PCP 7. HTN: controlled 10. Chronic coumadin therapy: INR at 4.8 Recommendations No need for cardizem. Restart home Dig and metoprolol Hold coumadin with elevated INR. Awaiting vascular surgery for reversal and eventually change to heparin drip Secondary prevention measures as tolerated. TTE, RLE duplex pending ADDIS TOM MD 05/18/18 6534: CARDIAC CONSULT ASSESSMENT/PLAN ASSESSMENT/PLAN Pt. seen and examined. Agree with above COILER note. Continue rate control with metoprolol and digoxin. EF by echo is approximately 40% He would be moderate risk patient for amputation. No further cardiac testing needed. Will follow along for HF optimization. Thanks Critically ill D/W Dr. Urias. VERONIKA VANCE TRAVELING ELECTRICIAN May 18, 2018 16:10 ADDIS TOM MD May 18, 2018 17:59
--- NOTE | 2018-05-18 16:31 | RAD ---
Bilateral lower extremity arterial ultrasound History:DX: Right leg pain; black toes IMP: stenosis seen in RT SFA mid and RT peroneal ART. Distal [employer] OPERATOR and DPA appear occluded. Findings: Multiple grayscale, color, and duplex spectral analysis sonographic images were acquired of the right lower extremity arteries. There are no previous similar exams. Moderate amount of plaque and intimal thickening is noted involving the right common femoral artery. Focal stenosis at the right mid superficial femoral artery. Velocities in cm/sec: RIGHT Common femoral artery 98 with biphasic flow Profunda femoris artery 93 with biphasic flow Proximal SFA 72 Mid SFA 171 Distal SFA 75 Popliteal artery 46 Anterior tibial artery 39 with monophasic flow Dorsalis pedis artery occluded Posterior tibial artery 79 proximally; occlusion of the posterior tibial artery distally noted. Peroneal artery 185 Impression: 1. Focal stenosis at the right mid superficial femoral artery with elevated arterial velocity. Occlusion of the distal posterior tibial artery and dorsalis pedis artery. Elevated flow velocity of the peroneal artery raises question of proximal stenosis. Electronically signed by: Tyrone Reynoso MD (05/18/2018 4:28 PM) [facility]
[2018-05-18] MEDS: metFORMIN 500 MG TABLET PO SCH (17:00)
[2018-05-18] MEDS: INSULIN LISPRO 300 UNITS/3 ML INSULN.PEN. SQ SCH ×2 (17:00)
[2018-05-18] MEDS: IPRATRPIUM/ALBUTEROL 0.5/2.5MG 3 ML NEBU. NEB SCH ×2 (18:00→22:00)
--- NOTE | 2018-05-18 18:18 | NUR ---
Patient admitted from ER. Vancomycin dose started in ER, finished running in ICU. Fluids started. Echo in progress. Dr. Miguel Arroyo notified of consult, blood cultures drawn in ER, orders given to start zosyn. Dr. Urias here with vascular, spoke with patient about need for R BKA, probably Monday due to elevated INR. Will hold all anticoagulation at this time.
--- NOTE | 2018-05-18 18:48 | PDOC ---
Provider Note Provider Note Vascular Surgery Consult dictated Plan right below the knee amputation and left foot debridement on monday. Will need INR corrected for surgery. STEVEN SUTHERLAND MD May 18, 2018 18:48
--- NOTE | 2018-05-18 18:59 | NUR ---
Family is at bedside. Patient's and daughter would like to speak to someone from vascular service regarding patient's pending amputation. Dr. Urias had been here to see patient prior to their arrival, expecting BKA R foot sometime early next week. Addendum: 05/18/18 at [address]ER [address]RAL RN [address]. Urias paged overhead, no response. Vascular service answering service contacted, page has been placed. Awaiting call back.
--- NOTE | 2018-05-18 19:04 | CARD ---
MR#: [id number] Date of Study: 05/18/2018 Ordering Physician: VERONIKA VANCE, Referring Physician: ARABELLA MARTINEZ, Tech: Jocelyn Washington APPROVED REPORT EXAM: Two-dimensional and M-mode echocardiogram with Doppler and color Doppler. 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 V9.14cm/sE/Lateral E'16.2 LEFT VENTRICLE The left ventricle is normal size. There is moderate to severe concentric left ventricular hypertroph y. The systolic function is moderately impaired. EF grossly estimated at 35-40%. Technically difficul t due to limited imaging and afib. The septum is severaly hypokinetic, the basal to mid inferior wall is severely hypokinetic. Remainder of the LV is mild to moderately hypokinetic. Tissue Doppler imagi ng reveals moderate left ventricular diastolic dysfunction. RIGHT VENTRICLE The right ventricle is moderately dilated. The right ventricle is borderline hypertrophied. The right ventricular systolic function is normal. ATRIA The left atrium is moderately dilated. The right atrium is mildly dilated. The interatrial septum is intact with no evidence for an atrial septal defect or patent foramen ovale as noted on 2-D or Dopple r imaging. AORTIC VALVE Doppler and Color Flow revealed trace aortic regurgitation. There is no significant aortic valvular s tenosis. By history there is a bioprosthetic aortic valve, it is not well visualized. No significant stenosis noted. MITRAL VALVE Mitral annular calcification is mild. There is no evidence of mitral valve prolapse. There is no mitr al valve stenosis. Doppler and Color-flow revealed trace mitral regurgitation. TRICUSPID VALVE The tricuspid valve is normal in structure and function. Doppler and Color Flow revealed trace tricus pid regurgitation. There is no tricuspid valve stenosis. PULMONIC VALVE The pulmonic valve is not well visualized. Doppler and Color Flow revealed no pulmonic valvular regur gitation. There is no pulmonic valvular stenosis. GREAT VESSELS The aortic root is normal in size. The IVC is dilated and collapses <50% with inspiration. PERICARDIAL EFFUSION There is no evidence of significant pericardial effusion. Critical Notification Critical Value: No <Conclusion> The systolic function is moderately impaired. EF grossly estimated at 35-40%. Technically difficult d ue to limited imaging and afib. The septum is severaly hypokinetic, the basal to mid inferior wall is severely hypokinetic. Remainder of the LV is mild to moderately hypokinetic. The right ventricle is moderately dilated. By history there is a bioprosthetic aortic valve, it is not well visualized. No significant stenosis noted. The IVC is dilated and collapses <50% with inspiration suggestive of elevated central venous pressure s. Signed by : Pato Vera, Electronically Approved : 05/18/2018 19:03:30
--- NOTE | 2018-05-18 19:21 | NUR ---
Dr. Urias returned page. Family is no longer present in room, not in waiting room. Provided Dr. Urias with phone number for patient's , Christine. She will attempt to call her this evening, asks that she be paged if family shows back up on unit. Passed on to shift commander RN.
[2018-05-18] MEDS: oxyCODONE/APAP 10/325 1 TAB TABLET PO PRN (19:23)
[2018-05-18] MEDS: PIPERACILLIN/TAZOBACTAM 3.375 GM in IV NORMAL SALINE 50ML 50 ML IV SCH (19:23)
--- NOTE | 2018-05-18 20:01 | NUR ---
Patient was DNR but stated in ED he wanted to be full code. This is to be addressed again tomorrow Addendum: 05/18/18 at 2010 by TIM HERNANDEZ RN Amended: Links added.
[2018-05-18] MEDS: ATORVASTATIN CALCIUM 40 MG TABLET. PO SCH (21:18)
[2018-05-18] MEDS: METOPROLOL TART IMMED RELEASE 50 MG TABLET. PO SCH (21:18)
[2018-05-18] MEDS: risperiDONE 1 MG TABLET. PO SCH (21:20)
[2018-05-18] MEDS: levETIRAcetam 250 MG TABLET PO SCH (21:20)
[2018-05-19] VITALS (23 sets, daily range): BP systolic 81–143; BP diastolic 43–76
[2018-05-19] MEDS: oxyCODONE/APAP 10/325 1 TAB TABLET PO PRN ×3 (02:27→19:24)
[2018-05-19 05:00] LABS: BASO # 0.1 x10^3/uL (0.0-0.2); BASO % 1 % (0-3); EOS # 0.1 x10^3/uL (0.0-0.7); EOS % 1 % (0-3); HEMATOCRIT 31.7 % (39.0-53.0); HEMOGLOBIN 9.9 g/dL (13.0-17.5); LYMPH # 0.3 x10^3/uL (1.0-4.8); LYMPH % 2 % (24-48); MEAN CORPUSCULAR HEMOGLOBIN 26 pg (25-35); MEAN CORPUSCULAR HGB CONC 31 g/dL (31-37); MEAN CORPUSCULAR VOLUME 84 fL (79-100); MONO # 0.8 x10^3/uL (0.0-1.1); MONO % 7 % (0-9); NEUT % 90 % (31-73); PLATELET COUNT 175 x10^3/uL (140-400); RED BLOOD COUNT 3.76 x10^6/uL (4.30-5.70); RED CELL DISTRIBUTION WIDTH 15.9 % (11.5-14.5); WHITE BLOOD COUNT 12.3 x10^3/uL (4.0-11.0)
[2018-05-19 05:11] LABS: PROTHROMBIN TIME PATIENT 52.8 SEC (11.7-14.0)
[2018-05-19 05:38] LABS: CALCIUM 8.3 mg/dL (8.5-10.1); CREATININE 1.4 mg/dL (0.7-1.3); GFR 49.3; POTASSIUM 3.1 mmol/L (3.5-5.1)
[2018-05-19] MEDS: PIPERACILLIN/TAZOBACTAM 3.375 GM in IV NORMAL SALINE 50ML 50 ML IV SCH ×5 (05:57→19:24)
[2018-05-19] MEDS: POTASSIUM CHLORIDE 20 MEQ TABLET.ER. PO SCH (08:00)
[2018-05-19] MEDS: INSULIN LISPRO 300 UNITS/3 ML INSULN.PEN. SQ SCH ×4 (08:00→17:00)
--- NOTE | 2018-05-19 08:20 | PDOC ---
PROGRESS NOTES Chief Complaint Chief Complaint Assessment/Plan Severe sepsis with gangrenous toes A. fib RVR Supra therapeutic INR 4.8 Elevated lactate 1.7 AK I creatinine 1.5 Hypokalemia Leukocytosis 20, fever temperature 102 Diabetes type 2 on insulin History PAD-known to vascular surgery Bioprosthetic heart valve History of Present Illness History of Present Illness 78yo male admitted for necrotic right toes. He has been having pain to his right foot and chills and fever and was noted by home health that his condition is getting worse. He does have AFIB paroxysmal by hx. He sees Dr. Castillo in [place]. I talked to his spouse and initially noted black tissue to his toes about a week ago. Pt denies any chest pain , SOA and no palpitations. No nausea or vomiting or diarrhea. He has significant cardiac history and past sepsis and bacteremia in the past as noted below. Consult is for AFIB RVR and presently his HR is better after IVF and fever control 90-110. No recent falls, injury and passing out. Overnight no acute events. Has pain in his right foot, foul smell associated. He is hungry. INR still elevated. No CP or SOB Plan: To OR monday for likely BKA Monitor INR, will give vitamin K PO tomorrow if necessary Hold digoxin if ok with cardiology Cont empiric antibiotics Vitals Vitals Vital Signs Date Time Temp Pulse Resp B/P (MAP) Pulse Ox O2 Delivery O2 Flow Rate FiO2 05/19/18 05:08 83 20 118/76 (90) 100 Nasal Cannula 2.0 05/19/18 04:28 97.2 97.2 Physical Exam General: Alert, Oriented X3, Cooperative, No acute distress Heart: Other (AFIB) Lungs: Clear Abdomen: Soft, No tenderness, Other (obese) Extremities: Other (1+ edema pitting to bilateral LE; erythema to ankle to feet worse to left foot with gangrenous/necrotic toes) Skin: Other (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 and 2 gangrenous toes on the right, chronic hyperpigmentation bilateral shins and foot) Labs LABS Laboratory Tests Test 05/18/18 13:10 05/18/18 17:25 05/19/18 04:00 White Blood Count 20.8 x10^3/uL (4.0-11.0) 12.3 x10^3/uL (4.0-11.0) Red Blood Count 4.33 x10^6/uL (4.30-5.70) 3.76 x10^6/uL (4.30-5.70) Hemoglobin 11.5 g/dL (13.0-17.5) 9.9 g/dL (13.0-17.5) Hematocrit 36.4 % (39.0-53.0) 31.7 % (39.0-53.0) Mean Corpuscular Volume 84 fL (79-100) 84 fL (79-100) Mean Corpuscular Hemoglobin 27 pg (25-35) 26 pg (25-35) Mean Corpuscular Hemoglobin Concent 32 g/dL (31-37) 31 g/dL (31-37) Red Cell Distribution Width 15.5 % (11.5-14.5) 15.9 % (11.5-14.5) Platelet Count 228 x10^3/uL (140-400) 175 x10^3/uL (140-400) Neutrophils (%) (Auto) 92 % (31-73) 90 % (31-73) Lymphocytes (%) (Auto) 1 % (24-48) 2 % (24-48) Monocytes (%) (Auto) 6 % (0-9) 7 % (0-9) Eosinophils (%) (Auto) 0 % (0-3) 1 % (0-3) Basophils (%) (Auto) 1 % (0-3) 1 % (0-3) Neutrophils # (Auto) 19.2 x10^3uL (1.8-7.7) 11.0 x10^3uL (1.8-7.7) Lymphocytes # (Auto) 0.3 x10^3/uL (1.0-4.8) 0.3 x10^3/uL (1.0-4.8) Monocytes # (Auto) 1.2 x10^3/uL (0.0-1.1) 0.8 x10^3/uL (0.0-1.1) Eosinophils # (Auto) 0.0 x10^3/uL (0.0-0.7) 0.1 x10^3/uL (0.0-0.7) Basophils # (Auto) 0.1 x10^3/uL (0.0-0.2) 0.1 x10^3/uL (0.0-0.2) Segmented Neutrophils % 74 % (35-66) Band Neutrophils % 15 % (0-9) Lymphocytes % 1 % (24-48) Monocytes % 9 % (0-10) Basophils % 1 % (0-3) Toxic Vacuolation Present Platelet Estimate Adequate (ADEQUATE) Anisocytosis Slight Prothrombin Time 44.9 SEC (11.7-14.0) 52.8 SEC (11.7-14.0) Prothromb Time International Ratio 4.8 (0.8-1.1) 5.8 (0.8-1.1) Sodium Level 139 mmol/L (136-145) 139 mmol/L (136-145) Potassium Level 3.6 mmol/L (3.5-5.1) 3.1 mmol/L (3.5-5.1) Chloride Level 98 mmol/L (98-107) 102 mmol/L (98-107) Carbon Dioxide Level 29 mmol/L (21-32) 23 mmol/L (21-32) Anion Gap 12 (6-14) 14 (6-14) Blood Urea Nitrogen 22 mg/dL (8-26) 20 mg/dL (8-26) Creatinine 1.5 mg/dL (0.7-1.3) 1.4 mg/dL (0.7-1.3) Estimated GFR (Cockcroft-Gault) 45.5 49.3 BUN/Creatinine Ratio 15 (6-20) Glucose Level 110 mg/dL (70-99) 103 mg/dL (70-99) Lactic Acid Level 1.7 mmol/L (0.4-2.0) 1.0 mmol/L (0.4-2.0) 1.0 mmol/L (0.4-2.0) Calcium Level 9.0 mg/dL (8.5-10.1) 8.3 mg/dL (8.5-10.1) Total Bilirubin 0.7 mg/dL (0.2-1.0) Aspartate Amino Transf (AST/SGOT) 20 U/L (15-37) Alanine Aminotransferase (ALT/SGPT) 13 U/L (16-63) Alkaline Phosphatase 78 U/L (46-116) Total Protein 7.9 g/dL (6.4-8.2) Albumin 2.7 g/dL (3.4-5.0) Albumin/Globulin Ratio 0.5 (1.0-1.7) Lipase 21 U/L (73-393) Assessment and Plan Assessmemt and Plan Problems Medical Problems: (1) Fever Status: Acute (2) Gangrene of toe Status: Acute (3) Leukocytosis Status: Acute (4) Severe sepsis Status: Acute Comment Review of Relevant I have reviewed the following items navi (where applicable) has been applied. Labs Laboratory Tests Test 05/18/18 13:10 05/18/18 17:25 05/19/18 04:00 White Blood Count 20.8 x10^3/uL (4.0-11.0) 12.3 x10^3/uL (4.0-11.0) Red Blood Count 4.33 x10^6/uL (4.30-5.70) 3.76 x10^6/uL (4.30-5.70) Hemoglobin 11.5 g/dL (13.0-17.5) 9.9 g/dL (13.0-17.5) Hematocrit 36.4 % (39.0-53.0) 31.7 % (39.0-53.0) Mean Corpuscular Volume 84 fL (79-100) 84 fL (79-100) Mean Corpuscular Hemoglobin 27 pg (25-35) 26 pg (25-35) Mean Corpuscular Hemoglobin Concent 32 g/dL (31-37) 31 g/dL (31-37) Red Cell Distribution Width 15.5 % (11.5-14.5) 15.9 % (11.5-14.5) Platelet Count 228 x10^3/uL (140-400) 175 x10^3/uL (140-400) Neutrophils (%) (Auto) 92 % (31-73) 90 % (31-73) Lymphocytes (%) (Auto) 1 % (24-48) 2 % (24-48) Monocytes (%) (Auto) 6 % (0-9) 7 % (0-9) Eosinophils (%) (Auto) 0 % (0-3) 1 % (0-3) Basophils (%) (Auto) 1 % (0-3) 1 % (0-3) Neutrophils # (Auto) 19.2 x10^3uL (1.8-7.7) 11.0 x10^3uL (1.8-7.7) Lymphocytes # (Auto) 0.3 x10^3/uL (1.0-4.8) 0.3 x10^3/uL (1.0-4.8) Monocytes # (Auto) 1.2 x10^3/uL (0.0-1.1) 0.8 x10^3/uL (0.0-1.1) Eosinophils # (Auto) 0.0 x10^3/uL (0.0-0.7) 0.1 x10^3/uL (0.0-0.7) Basophils # (Auto) 0.1 x10^3/uL (0.0-0.2) 0.1 x10^3/uL (0.0-0.2) Segmented Neutrophils % 74 % (35-66) Band Neutrophils % 15 % (0-9) Lymphocytes % 1 % (24-48) Monocytes % 9 % (0-10) Basophils % 1 % (0-3) Toxic Vacuolation Present Platelet Estimate Adequate (ADEQUATE) Anisocytosis Slight Prothrombin Time 44.9 SEC (11.7-14.0) 52.8 SEC (11.7-14.0) Prothromb Time International Ratio 4.8 (0.8-1.1) 5.8 (0.8-1.1) Sodium Level 139 mmol/L (136-145) 139 mmol/L (136-145) Potassium Level 3.6 mmol/L (3.5-5.1) 3.1 mmol/L (3.5-5.1) Chloride Level 98 mmol/L (98-107) 102 mmol/L (98-107) Carbon Dioxide Level 29 mmol/L (21-32) 23 mmol/L (21-32) Anion Gap 12 (6-14) 14 (6-14) Blood Urea Nitrogen 22 mg/dL (8-26) 20 mg/dL (8-26) Creatinine 1.5 mg/dL (0.7-1.3) 1.4 mg/dL (0.7-1.3) Estimated GFR (Cockcroft-Gault) 45.5 49.3 BUN/Creatinine Ratio 15 (6-20) Glucose Level 110 mg/dL (70-99) 103 mg/dL (70-99) Lactic Acid Level 1.7 mmol/L (0.4-2.0) 1.0 mmol/L (0.4-2.0) 1.0 mmol/L (0.4-2.0) Calcium Level 9.0 mg/dL (8.5-10.1) 8.3 mg/dL (8.5-10.1) Total Bilirubin 0.7 mg/dL (0.2-1.0) Aspartate Amino Transf (AST/SGOT) 20 U/L (15-37) Alanine Aminotransferase (ALT/SGPT) 13 U/L (16-63) Alkaline Phosphatase 78 U/L (46-116) Total Protein 7.9 g/dL (6.4-8.2) Albumin 2.7 g/dL (3.4-5.0) Albumin/Globulin Ratio 0.5 (1.0-1.7) Lipase 21 U/L (73-393) Laboratory Tests Test 05/18/18 13:10 05/18/18 17:25 05/19/18 04:00 White Blood Count 20.8 x10^3/uL (4.0-11.0) 12.3 x10^3/uL (4.0-11.0) Red Blood Count 4.33 x10^6/uL (4.30-5.70) 3.76 x10^6/uL (4.30-5.70) Hemoglobin 11.5 g/dL (13.0-17.5) 9.9 g/dL (13.0-17.5) Hematocrit 36.4 % (39.0-53.0) 31.7 % (39.0-53.0) Mean Corpuscular Volume 84 fL (79-100) 84 fL (79-100) Mean Corpuscular Hemoglobin 27 pg (25-35) 26 pg (25-35) Mean Corpuscular Hemoglobin Concent 32 g/dL (31-37) 31 g/dL (31-37) Red Cell Distribution Width 15.5 % (11.5-14.5) 15.9 % (11.5-14.5) Platelet Count 228 x10^3/uL (140-400) 175 x10^3/uL (140-400) Neutrophils (%) (Auto) 92 % (31-73) 90 % (31-73) Lymphocytes (%) (Auto) 1 % (24-48) 2 % (24-48) Monocytes (%) (Auto) 6 % (0-9) 7 % (0-9) Eosinophils (%) (Auto) 0 % (0-3) 1 % (0-3) Basophils (%) (Auto) 1 % (0-3) 1 % (0-3) Neutrophils # (Auto) 19.2 x10^3uL (1.8-7.7) 11.0 x10^3uL (1.8-7.7) Lymphocytes # (Auto) 0.3 x10^3/uL (1.0-4.8) 0.3 x10^3/uL (1.0-4.8) Monocytes # (Auto) 1.2 x10^3/uL (0.0-1.1) 0.8 x10^3/uL (0.0-1.1) Eosinophils # (Auto) 0.0 x10^3/uL (0.0-0.7) 0.1 x10^3/uL (0.0-0.7) Basophils # (Auto) 0.1 x10^3/uL (0.0-0.2) 0.1 x10^3/uL (0.0-0.2) Segmented Neutrophils % 74 % (35-66) Band Neutrophils % 15 % (0-9) Lymphocytes % 1 % (24-48) Monocytes % 9 % (0-10) Basophils % 1 % (0-3) Toxic Vacuolation Present Platelet Estimate Adequate (ADEQUATE) Anisocytosis Slight Prothrombin Time 44.9 SEC (11.7-14.0) 52.8 SEC (11.7-14.0) Prothromb Time International Ratio 4.8 (0.8-1.1) 5.8 (0.8-1.1) Sodium Level 139 mmol/L (136-145) 139 mmol/L (136-145) Potassium Level 3.6 mmol/L (3.5-5.1) 3.1 mmol/L (3.5-5.1) Chloride Level 98 mmol/L (98-107) 102 mmol/L (98-107) Carbon Dioxide Level 29 mmol/L (21-32) 23 mmol/L (21-32) Anion Gap 12 (6-14) 14 (6-14) Blood Urea Nitrogen 22 mg/dL (8-26) 20 mg/dL (8-26) Creatinine 1.5 mg/dL (0.7-1.3) 1.4 mg/dL (0.7-1.3) Estimated GFR (Cockcroft-Gault) 45.5 49.3 BUN/Creatinine Ratio 15 (6-20) Glucose Level 110 mg/dL (70-99) 103 mg/dL (70-99) Lactic Acid Level 1.7 mmol/L (0.4-2.0) 1.0 mmol/L (0.4-2.0) 1.0 mmol/L (0.4-2.0) Calcium Level 9.0 mg/dL (8.5-10.1) 8.3 mg/dL (8.5-10.1) Total Bilirubin 0.7 mg/dL (0.2-1.0) Aspartate Amino Transf (AST/SGOT) 20 U/L (15-37) Alanine Aminotransferase (ALT/SGPT) 13 U/L (16-63) Alkaline Phosphatase 78 U/L (46-116) Total Protein 7.9 g/dL (6.4-8.2) Albumin 2.7 g/dL (3.4-5.0) Albumin/Globulin Ratio 0.5 (1.0-1.7) Lipase 21 U/L (73-393) Medications Current Medications Sodium Chloride 1,000 ml @ 2,190 mls/hr Q28M IV Last administered on at 14:36; Start 05/18/18 at 12:52; Stop 05/18/18 at 13:52; Status DC Piperacillin Sod/ Tazobactam Sod 4.5 gm/Sodium Chloride 100 ml @ 200 mls/hr 1X ONCE IV Last administered on 05/18/18at 14:34; Start 05/18/18 at 13:00; Stop 05/18/18 at 13:29; Status DC Vancomycin HCl (Vanco Per Pharmacy) 1 each 1X ONCE MC Last administered on 01/24at 13:00; Start 05/18/18 at 13:00; Stop 05/18/18 at 13:11; Status DC Vancomycin HCl 2 gm/Sodium Chloride 500 ml @ 250 mls/hr 1X ONCE IV Last administered on 05/18/18at 15:28; Start 05/18/18 at 13:15; Stop 05/18/18 at 15:14 ; Status DC Ondansetron HCl (Zofran) 4 mg PRN Q8HRS PRN IV NAUSEA/VOMITING; Start 05/18/18 at 14:45; Stop 05/18/18 at 15:28; Status DC Fentanyl Citrate (Fentanyl 2ml Vial) 50 mcg PRN Q1HR PRN IV PAIN; Start at 14:45; Stop 05/19/18 at 14:44 Sodium Chloride 1,000 ml @ 80 mls/hr [id number] IV ; Start 05/18/18 at 14:43; Stop 05/18/18 at 18:42; Status DC Acetaminophen (Tylenol) 650 mg 1X ONCE PO Last administered on 05/18/18at 15:29 ; Start 05/18/18 at 15:30; Stop 05/18/18 at 15:31; Status DC Ondansetron HCl (Zofran) 4 mg PRN Q6HRS PRN IV NAUSEA/VOMITING; Start 05/18/18 at 15:30 Diltiazem HCl (Cardizem Iv Push) 10 mg 1X ONCE IVP ; Start 05/18/18 at 15:30; Stop 05/18/18 at 15:31; Status DC Acetaminophen (Tylenol) 500 mg PRN Q6HRS PRN PO MILD PAIN / TEMP; Start at 15:30; Stop 05/18/18 at 16:14; Status DC Acetaminophen/ Codeine Phosphate (Tylenol #3) 1 tab PRN Q6HRS PRN PO MODERATE PAIN; Start 05/18/18 at 15:30 Morphine Sulfate (Morphine Sulfate) 2 mg PRN Q2HR PRN IV PAIN; Start 05/18/18 at 15:30 Oxycodone/ Acetaminophen (Percocet 5/325) 1 tab PRN Q4HRS PRN PO SEVERE PAIN; Start 05/18/18 at 15:30 Albuterol Sulfate (Ventolin Hfa) 2 puff PRN Q6HRS PRN IH SHORTNESS OF BREATH; Start 05/18/18 at 15:30; Status UNV Digoxin (Lanoxin) 125 mcg DAILY PO ; Start 05/19/18 at 09:00 Furosemide (Lasix) 40 mg DAILY PO ; Start 05/19/18 at 09:00 Gabapentin (Neurontin) 300 mg DAILY PO ; Start 05/19/18 at 09:00 Lisinopril (Prinivil) 20 mg DAILY PO ; Start 05/19/18 at 09:00 Metoprolol Tartrate (Lopressor) 50 mg BID PO Last administered on 05/18/18at 21: 18; Start 05/18/18 at 21:00 Oxycodone/ Acetaminophen (Percocet 10/325) 1 tab PRN Q6HRS PRN PO SEVERE PAIN ( 2ND Choice) Last administered on 05/19/18at 02:27; Start 05/18/18 at 15:30 Oxycodone/ Acetaminophen (Percocet 5/325) 1 tab PRN Q4HRS PRN PO PAIN; Start at 15:30; Status UNV Acetaminophen (Tylenol) 500 mg PRN Q6HRS PRN PO MILD PAIN / TEMP; Start at 16:15 Atorvastatin Calcium (Lipitor) 80 mg QHS PO Last administered on 05/18/18at 21: 18; Start 05/18/18 at 21:00 Hydralazine HCl (Apresoline) 10 mg TID PO Last administered on 05/18/18at 21:19 ; Start 05/18/18 at 16:00 Insulin Human Lispro (HumaLOG) 10 units DAILYWBKFT SQ ; Start 05/18/18 at 17:00 Levetiracetam (Keppra) 1,250 mg BID PO Last administered on 05/18/18at 21:20; Start 05/18/18 at 21:00 Metformin HCl (Glucophage) 1,000 mg BIDWMEALS PO ; Start 05/18/18 at 17:00 Multivitamins (Thera M Plus) 1 tab DAILY PO ; Start 05/19/18 at 09:00 Potassium Chloride (Klor-Con) 20 meq DAILYWBKFT PO ; Start 05/19/18 at 08:00 Risperidone (RisperDAL) 1 mg QHS PO Last administered on 05/18/18at 21:20; Start 05/18/18 at 21:00 Non-Formulary Medication (Rosuvastatin Calcium (Crestor)) 40 mg DAILY PO ; Start 05/19/18 at 09:00; Status UNV Zonisamide (Zonegran) 400 mg DAILY PO ; Start 05/19/18 at 09:00 Albuterol/ Ipratropium (Duoneb) 3 ml Q4HRS W/A NEB Last administered on at 18:00; Start 05/18/18 at 18:00 Insulin Human Lispro (HumaLOG) 0-9 UNITS TIDWMEALS SQ ; Start 05/18/18 at 17:00 Dextrose (Dextrose 50%-Water Syringe) 12.5 gm PRN Q15MIN PRN IV SEE COMMENTS; Start 05/18/18 at 15:30 Albuterol Sulfate (Ventolin Neb Soln) 2.5 mg PRN Q6HRS PRN NEB SHORTNESS OF BREATH; Start 05/18/18 at 15:45 Piperacillin Sod/ Tazobactam Sod 3.375 gm/Sodium Chloride 50 ml @ 100 mls/hr Q6HRS IV Last administered on 05/19/18at 05:57; Start 05/18/18 at 18:00 Active Scripts Active Digoxin 125 Mcg Tablet 125 Mcg PO DAILY Furosemide 40 Mg Tablet 40 Mg PO DAILY Metoprolol Tartrate 50 Mg Tablet 50 Mg PO BID [Warfarin Sodium] 1 EACH Each 1 Each MC PRN DAILY PRN Lisinopril 20 Mg Tablet 20 Mg PO DAILY Duoneb 0.5-3(2.5) Mg/3 Ml (Albuterol/Ipratropium) 3 Ml Ampul.neb 3 Ml NEB Q4HRS W/A 30 Days Hydralazine Hcl 10 Mg Tablet 10 Mg PO TID Reported Zonisamide 100 Mg Capsule 400 Mg PO DAILY Percocet 5-325 Mg Tablet (Oxycodone/Acetaminophen) 1 Each Tablet 1 Tab PO PRN Q4HRS PRN Multivitamins (Multivitamin) 1 Each Tablet 1 Tab PO DAILY Levetiracetam 250 Mg Tablet 1,250 Mg PO BID Novolin N (Nph, Human Insulin Isophane) 100 Unit/1 Ml Vial Unknown Dose SQ Atorvastatin Calcium 80 Mg Tablet 1 Tab PO DAILY Acetaminophen 500 Mg Tablet 1 Tab PO PRN Q6HRS PRN Albuterol Sulfate Hfa Inhaler (Albuterol Sulfate) 8.5 Gm Hfa.aer.ad 2 Puff IH PRN Q6HRS PRN Aspirin Ec (Aspirin) 325 Mg Tablet.dr 81 Mg PO DAILY Crestor (Rosuvastatin Calcium) 40 Mg Tablet 40 Mg PO DAILY Warfarin Sodium 5 Mg Tablet 6 Mg PO DAILY Warfarin Sodium 2.5 Mg Tablet 2.5 Mg PO 3X/WEEK monday,monday, Gabapentin (Gabapentin) 300 Mg Capsule 300 Mg PO DAILY Risperidone 1 Mg Tablet 1 Mg PO HS Novolog (Insulin Aspart) 100 Unit/1 Ml Vial 10 Unit SQ DAILYAC Oxycodone-Acetaminophen 10-325 (Oxycodone Hcl/Acetaminophen) 1 Each Tablet 1 Each PO PRN Q6HRS Potassium 99 Mg Tablet 20 Meq PO DAILY Prednisone (Prednisone) 10 Mg Tablet 10 Mg PO DAILY Metformin Hcl 500 Mg Tablet 1,000 Mg PO BIDBFRMEAL Vitals/I & O Vital Sign - Last 24 Hours 05/18/18 05/18/18 05/18/18 05/18/18 13:04 14:30 14:45 15:15 Temp 102.2 102.2 Pulse 121 108 108 114 Resp 14 20 19 26 B/P (MAP) 134/73 (93) 143/79 (100) 149/78 (101) 158/73 (101) Pulse Ox 92 O2 Delivery Room Air Room Air Room Air Room Air 05/18/18 05/18/18 05/18/18 05/18/18 16:00 16:26 17:30 18:00 Temp 101.5 98.7 101.5 98.7 Pulse 108 90 88 Resp 22 18 20 B/P (MAP) 154/67 (96) 114/89 (97) 109/43 (65) Pulse Ox 93 95 O2 Delivery Room Air Room Air Room Air 05/18/18 05/18/18 05/18/18 05/18/18 18:00 18:21 19:00 19:23 Pulse 70 Resp 20 18 B/P (MAP) 135/63 (87) Pulse Ox 97 92 O2 Delivery Room Air Room Air Room Air Room Air 05/18/18 05/18/18 05/18/18 4/12/19 20:00 20:00 21:00 21:18 Pulse 74 88 85 Resp 18 18 B/P (MAP) 122/50 (74) 118/42 (67) 139/60 O2 Delivery Room Air 05/18/18 05/18/18 05/18/18 05/18/18 21:19 22:00 22:10 22:11 Temp 99.7 99.7 Pulse 50 66 Resp 18 18 B/P (MAP) 139/60 100/46 (64) Pulse Ox 87 95 O2 Delivery Room Air Nasal Cannula O2 Flow Rate 2.0 05/18/18 05/19/18 05/19/18 05/19/18 23:06 00:07 00:09 02:00 Temp 99.7 98.2 99.7 98.2 Pulse 65 64 106 Resp 18 16 22 B/P (MAP) 104/47 (66) 116/58 (77) 141/72 (95) Pulse Ox 96 98 98 O2 Delivery Nasal Cannula Room Air Nasal Cannula Nasal Cannula O2 Flow Rate 2.0 2.0 2.0 2.0 05/19/18 05/19/18 05/19/18 05/19/18 02:27 02:30 03:00 03:30 Temp 98.2 98.2 Pulse 106 80 Resp 18 20 20 18 B/P (MAP) 141/72 (95) 112/54 (73) Pulse Ox 98 98 100 98 O2 Delivery Room Air Nasal Cannula Nasal Cannula Room Air O2 Flow Rate 2.0 2.0 2.0 2.0 05/19/18 05/19/18 05/19/18 04:26 04:28 05:08 Temp 97.2 97.2 Pulse 81 83 Resp 18 20 B/P (MAP) 106/55 (72) 118/76 (90) Pulse Ox 99 100 O2 Delivery Room Air Nasal Cannula Nasal Cannula O2 Flow Rate 2.0 2.0 2.0 Intake and Output 05/18/18 05/18/18 05/19/18 15:00 23:00 07:00 Intake Total 1000 ml 1590 ml 300 ml Output Total 500 ml 600 ml Balance 1000 ml 1090 ml -300 ml Images RLE Arterial doppler - 1. Focal stenosis at the right mid superficial femoral artery with elevated arterial velocity. Occlusion of the distal posterior tibial artery and dorsalis pedis artery. Elevated flow velocity of the peroneal artery raises question of proximal stenosis. ECHOCARDIOGRAM - The systolic function is moderately impaired. EF grossly estimated at 35-40%. Technically difficult due to limited imaging and afib. The septum is severaly hypokinetic, the basal to mid inferior wall is severely hypokinetic. Remainder of the LV is mild to moderately hypokinetic. The right ventricle is moderately dilated. By history there is a bioprosthetic aortic valve, it is not well visualized. No significant stenosis noted. The IVC is dilated and collapses <50% with inspiration suggestive of elevated central venous pressures. NEHAL NELSON MD May 19, 2018 08:20
[2018-05-19] MEDS ORDERED: POTASSIUM CHLORIDE 20 MEQ TABLET.ER. PO ONE (08:30)
--- NOTE | 2018-05-19 08:32 | PDOC ---
CARDIOLOGY PROGRESS NOTE SUBJECTIVE: No acute events overnight. No tachy on telemetry OBJECTIVE: Vital SIgns: Vital Signs Date Time Temp Pulse Resp B/P (MAP) Pulse Ox O2 Delivery O2 Flow Rate FiO2 05/19/18 05:08 83 20 118/76 (90) 100 Nasal Cannula 2.0 05/19/18 04:28 97.2 97.2 I & O +1.7 L Objective: He is sitting up in bed, appears to be confused regarding plans. States legs hurt quite a bit. Heart tones are irregular. Soft systolic murmur throughout precordium Soft abd 2+ LLE. L arm in contracture with mild resting tremor. Severe PAD. Neck veins difficult to assess CURRENT MEDICATIONS: Lisinopril 20mg daily Dig 0.125mg daily Lasix 40mg daily Metoprolol 50mg bid Atorvastatin 80mg daily Warfarin (held) DIAGNOSTIC TESTING: Hgb 9.9, cr 1.4, INR 5.8, K 3.1 CXR reviewed - no obvious edema but stable patchy left sided infiltrate ASSESSMENT: 1. Severe PAD with gagrene of RLE 2. Permanent afib with transient RVR, now improved 3. Supratherapeutic INR, POA 4. Ischemic CMP with EF of 35-40%, acute on chronic decompensated HF 5. HTN 6. Dyslipidemia PLAN: 1. Hold digoxin for next 48 hours as this may help potentiate the INR elevation 2. Given Lasix 40mg IVP, stop IVF, monitor Cr. 3. Continue other meds, would consider holding TID heparin given supratherapeutic INR. Supportive care. Will follow along. ADDIS TOM MD May 19, 2018 08:32
[2018-05-19] MEDS ORDERED: FUROSEMIDE 40 MG/4 ML VIAL. IVP ONE (08:45)
[2018-05-19] MEDS ORDERED: DIGOXIN 125 MCG TABLET. PO SCH (09:00)
[2018-05-19] MEDS ORDERED: NON FORMULARY ITEM (Rosuvastatin Calcium (Crestor) 40 MG) PO SCH (09:00)
[2018-05-19] MEDS: FUROSEMIDE 40 MG TABLET. PO SCH (09:00)
[2018-05-19] MEDS: IPRATRPIUM/ALBUTEROL 0.5/2.5MG 3 ML NEBU. NEB SCH ×5 (09:54→22:00)
[2018-05-19] MEDS ORDERED: VANCOMYCIN PER PHARMACY MC PRN (10:00)
[2018-05-19] MEDS ORDERED: PHYTONADIONE 10 MG/ML AMPUL. SQ ONE ×2 (10:00→10:15)
--- NOTE | 2018-05-19 10:00 | PDOC ---
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 Pressure ulcer involving his right heel Lateral malleolar ulcer left foot. INR 5.8 today Plan right below-knee amputation and left leg debridement once his INR is corrected. This is tentatively scheduled for Monday. Have ordered vitamin K subcutaneous today 10 mg We'll recheck INR in a.m. Planned operative procedure, risks, complications, and alternatives have all been reviewed with the patient. Patient understands and agrees to proceed with amputation as outlined. He is nonambulatory. He has a lateral malleolar sore on the left foot. It is possible that if this progresses then he will wind up with bilateral major amputations. AUSTIN ALBRIGHT MD May 19, 2018 10:00
[2018-05-19] MEDS: ACETAMINOPHEN/CODEINE 300/30MG TABLET. PO PRN (10:12)
[2018-05-19] MEDS: METOPROLOL TART IMMED RELEASE 50 MG TABLET. PO SCH ×2 (10:13→21:00)
[2018-05-19] MEDS: MULTIVITAMIN with MINERAL TABLET. PO SCH (10:13)
[2018-05-19] MEDS: LISINOPRIL 20 MG TABLET PO SCH (10:14)
[2018-05-19] MEDS: metFORMIN 500 MG TABLET PO SCH ×2 (10:15→17:09)
[2018-05-19] MEDS: GABAPENTIN 300 MG CAPSULE. PO SCH (10:15)
[2018-05-19] MEDS: levETIRAcetam 250 MG TABLET PO SCH ×2 (10:15→21:04)
[2018-05-19] MEDS: hydrALAZINE 10 MG TABLET PO SCH ×3 (10:16→21:00)
[2018-05-19] MEDS: ZONISAMIDE 100 MG CAPSULE. PO SCH (10:22)
--- NOTE | 2018-05-19 10:34 | NUR ---
Pharmacy Vancomycin Dosing Note S:Consulted to monitor and dose vancomycin started 05/18/18. O:VICKI BRAUN is a 78 year old M with Bacteremia secondary to Gangrenous toes. Height: 5 feet, 10 inches Weight: 95.546433 kg [place] Body Weight: 73.00 Adjusted Body Weight: 82.08 Dosing Weight: Actual Other Antibiotics: Piperacillin-tazobactam LABS: Last BUN: 20 Last Creatinine: 1.4 Creatinine Clearance: about 50-55 mL/min Last WBC: 12.3 Last Procalcitonin: NA (not PNA) Tmax (past 24 hours): 102.2 Microbiology: 4 of 4 + for gram + cocci in clusters I/O: 2890/1100 Drug Levels: Last dose given 05/18/18 at 1528 Vancomycin Dosing: Loading Dose: 2000 mg x1 Dosing Weight: Actual Target Trough: 15-20 A: Based on: Past admission vancomycin dosing, PMH, current renal function, and severity of suspected infection P: 1. Will initiate Vancomycin 1750 mg IV q24h 2. Follow up Trough level on 05/20/18 at 1530 3. Pharmacy will continue to monitor, follow and adjust therapy as needed. BA MART, [facility] [place], 05/19/18 1037
--- NOTE | 2018-05-19 11:16 | PDOC ---
Infectious Disease Note Vital Sign Vital Signs Vital Signs Date Time Temp Pulse Resp B/P (MAP) Pulse Ox O2 Delivery O2 Flow Rate FiO2 05/19/18 09:55 100 Nasal Cannula 2.0 05/19/18 05:08 83 20 118/76 (90) 05/19/18 04:28 97.2 97.2 Labs Lab Laboratory Tests Test 05/18/18 13:10 05/18/18 17:25 05/19/18 04:00 White Blood Count 20.8 x10^3/uL (4.0-11.0) 12.3 x10^3/uL (4.0-11.0) Red Blood Count 4.33 x10^6/uL (4.30-5.70) 3.76 x10^6/uL (4.30-5.70) Hemoglobin 11.5 g/dL (13.0-17.5) 9.9 g/dL (13.0-17.5) Hematocrit 36.4 % (39.0-53.0) 31.7 % (39.0-53.0) Mean Corpuscular Volume 84 fL (79-100) 84 fL (79-100) Mean Corpuscular Hemoglobin 27 pg (25-35) 26 pg (25-35) Mean Corpuscular Hemoglobin Concent 32 g/dL (31-37) 31 g/dL (31-37) Red Cell Distribution Width 15.5 % (11.5-14.5) 15.9 % (11.5-14.5) Platelet Count 228 x10^3/uL (140-400) 175 x10^3/uL (140-400) Neutrophils (%) (Auto) 92 % (31-73) 90 % (31-73) Lymphocytes (%) (Auto) 1 % (24-48) 2 % (24-48) Monocytes (%) (Auto) 6 % (0-9) 7 % (0-9) Eosinophils (%) (Auto) 0 % (0-3) 1 % (0-3) Basophils (%) (Auto) 1 % (0-3) 1 % (0-3) Neutrophils # (Auto) 19.2 x10^3uL (1.8-7.7) 11.0 x10^3uL (1.8-7.7) Lymphocytes # (Auto) 0.3 x10^3/uL (1.0-4.8) 0.3 x10^3/uL (1.0-4.8) Monocytes # (Auto) 1.2 x10^3/uL (0.0-1.1) 0.8 x10^3/uL (0.0-1.1) Eosinophils # (Auto) 0.0 x10^3/uL (0.0-0.7) 0.1 x10^3/uL (0.0-0.7) Basophils # (Auto) 0.1 x10^3/uL (0.0-0.2) 0.1 x10^3/uL (0.0-0.2) Segmented Neutrophils % 74 % (35-66) Band Neutrophils % 15 % (0-9) Lymphocytes % 1 % (24-48) Monocytes % 9 % (0-10) Basophils % 1 % (0-3) Toxic Vacuolation Present Platelet Estimate Adequate (ADEQUATE) Anisocytosis Slight Prothrombin Time 44.9 SEC (11.7-14.0) 52.8 SEC (11.7-14.0) Prothromb Time International Ratio 4.8 (0.8-1.1) 5.8 (0.8-1.1) Sodium Level 139 mmol/L (136-145) 139 mmol/L (136-145) Potassium Level 3.6 mmol/L (3.5-5.1) 3.1 mmol/L (3.5-5.1) Chloride Level 98 mmol/L (98-107) 102 mmol/L (98-107) Carbon Dioxide Level 29 mmol/L (21-32) 23 mmol/L (21-32) Anion Gap 12 (6-14) 14 (6-14) Blood Urea Nitrogen 22 mg/dL (8-26) 20 mg/dL (8-26) Creatinine 1.5 mg/dL (0.7-1.3) 1.4 mg/dL (0.7-1.3) Estimated GFR (Cockcroft-Gault) 45.5 49.3 BUN/Creatinine Ratio 15 (6-20) Glucose Level 110 mg/dL (70-99) 103 mg/dL (70-99) Lactic Acid Level 1.7 mmol/L (0.4-2.0) 1.0 mmol/L (0.4-2.0) 1.0 mmol/L (0.4-2.0) Calcium Level 9.0 mg/dL (8.5-10.1) 8.3 mg/dL (8.5-10.1) Total Bilirubin 0.7 mg/dL (0.2-1.0) Aspartate Amino Transf (AST/SGOT) 20 U/L (15-37) Alanine Aminotransferase (ALT/SGPT) 13 U/L (16-63) Alkaline Phosphatase 78 U/L (46-116) Total Protein 7.9 g/dL (6.4-8.2) Albumin 2.7 g/dL (3.4-5.0) Albumin/Globulin Ratio 0.5 (1.0-1.7) Lipase 21 U/L (73-393) Magnesium Level 1.8 mg/dL (1.8-2.4) Micro Microbiology 05/18/18 Blood Culture - Final, Complete Objective Assessment GPC bacteremia (4 of 4 bottles) with sepsis, POA Infected ulcer left ankle Gangrene involving right 3-5 toes, 1st amp site and heel Bioprosthetic valve Renal insufficiency Encephalopathy Coagulopathy, on chronic warfarin A- fib RVR Severe PAD s/p BLE stents and previous toe amputations Diabetes Type II Chronic Crawley for urinary retention h/o PSA ( R quinolones & I imipenem) h/o group B strep bacteremia, 2016 Plan Plan of Care Continue Zosyn and add vanc Obtain wound culture Repeat BC in am UA C&S, change Crawley Monitor labs and renal function closely Local wound care and offloading Right BKA and left foot debridement tentatively planned for Monday Vascular is following D/w nursing Critically ill Thank you [id number] addendum: Crawley cath placed in ER, he normally doesn't have a Crawley D/w nursing Patient seen and examined. Chart reviewed in detail. Case d/w FURNACE RELINER. Agree with above plan. GIO GASPAR PERSONAL CARE AIDE May 19, 2018 11:16 DIOGENES HASTINGS MD May 19, 2018 20:23
[2018-05-19] MEDS ORDERED: HEPARIN for SUB-Q USE 5,000 UNIT/ML VIAL. SQ SCH (14:00)
--- NOTE | 2018-05-19 15:23 | CONS ---
DATE OF CONSULTATION: 05/18/2018 CHIEF COMPLAINT: Gangrene in the feet. HISTORY OF PRESENT ILLNESS: The patient is a 78-year-old male with a long history of peripheral arterial disease requiring toe amputations in both his right and left foot in the past. He has currently been at home in hospice, however, has come to the hospital because of worsening infection in his feet and pain. He reports pain mostly in his right foot. He is nonambulatory and is completely bedridden and a complete weight transfer. Here in the hospital, he has been admitted to the Intensive Care Unit and started on IV antibiotics for infection in his feet. He takes Coumadin for atrial fibrillation, and his INR is elevated at 4.5. He has no other complaints at this time. REVIEW OF SYSTEMS: A 10-point review of systems was performed, which was otherwise negative besides what is mentioned in history of present illness. PAST MEDICAL HISTORY: Includes: 1. Atrial fibrillation. 2. Hypertension. 3. History of myocardial infarction. 4. Asthma. 5. Bronchitis. 6. COPD. 7. Diabetes mellitus. PAST SURGICAL HISTORY: Includes: 1. Appendectomy. 2. Coronary artery bypass graft. 3. Multiple toe amputations in his feet in the past. SOCIAL HISTORY: The patient does not smoke or drink alcohol. FAMILY HISTORY: Significant for coronary artery disease. PHYSICAL EXAMINATION: GENERAL: The patient is awake and alert. He is currently in no apparent distress. NECK: Supple with no carotid bruits. HEART: Slightly tachycardic without murmurs. LUNGS: Bilateral breath sounds to auscultation. ABDOMEN: Soft, nondistended and nontender. EXTREMITIES: His right lower extremity has no swelling, his right forefoot has gangrene of all of his remaining toes with gangrene extending onto the plantar surface of the foot. There is no purulent drainage, he has a large necrotic gangrenous eschar on his heel with no significant drainage. There is erythema of his right foot. His left lower extremity has mild edema. He has had previous left first and second toe amputations, which are healed. He has a lateral ankle ulcer over the malleolus bone with some necrotic tissue and localized erythema. I do not palpate pedal pulses in his feet. NEUROLOGIC: He is awake and alert, oriented x 3, normal speech, moving all 4 extremities with normal strength, no gross neurologic deficits. IMPRESSION: 1. Right foot extensive gangrene of his forefoot and heel with severe peripheral arterial disease. 2. Left lateral foot ulcer with necrotic tissue. 3. Anticoagulation with Coumadin for atrial fibrillation with an elevated INR of 4.8. PLAN: The patient has extensive gangrene of his right foot with cellulitis. He has severe peripheral arterial disease. He is nonambulatory. I recommend a right below the knee amputation for his severe gangrene in his foot, which I do not feel that will ever heal with primary debridements and toe amputations. He is also nonambulatory, but he does not have any contractures in his knee, and he may use this to help transfer; therefore, I think it is reasonable to start with the below knee amputation before proceeding directly with an above-knee amputation. The patient is agreeable to proceed. I also recommend debridement of his left lateral foot wound during surgery. His INR is currently 4.8. This will need to be reversed prior to surgery. We will plan right below the knee amputation and left foot debridement after his INR has been reversed. He is being started on IV antibiotics. Infectious Disease has been consulted. STEVEN SUTHERLAND MD DR: MARTIR/arely JOB#: [id number] / [id number]
[2018-05-19] MEDS ORDERED: VANCOMYCIN 1.75 GM in IV NORMAL SALINE 500ML BAG 500 ML IV SCH (16:00)
[2018-05-19 20:23] LABS: BILIRUBIN,URINE NEGATIVE (NEG); CLARITY,URINE CLEAR; COLOR,URINE YELLOW; NITRITE,URINE NEGATIVE (NEG); PROTEIN,URINE NEGATIVE (NEG-TRACE)
[2018-05-19 20:30] LABS: AMORPHOUS SEDIMENT,UR PRESENT /HPF; HYALINE CASTS, URINE FEW /HPF
[2018-05-19 20:31] LABS: BACTERIA,URINE FEW /HPF (0-FEW); WBC,URINE 20-40 /HPF (0-4)
--- NOTE | 2018-05-19 20:31 | CONS ---
DATE OF CONSULTATION: 05/19/2018 REFERRING PHYSICIAN: Dr. Mckenzie Rosa. REASON FOR CONSULTATION: Gangrenous toes. HISTORY OF PRESENT ILLNESS: This patient is a 78-year-old male with a history of multiple comorbidities, not ambulatory, cared for at home and followed by hospice care. He was sent to the ER yesterday for evaluation of fever, chills, confusion and worsening right foot pain. He has a history of severe peripheral arterial disease, status post previous bilateral lower extremity stents and previous toe amputations. He was found to have gangrene involving residual toes and heel of right foot as well as an ulcer of left lateral malleolus. He had a temperature of 102 with elevated white blood cell count of 20,000 and a lactic acid of 1.7. He was seen by Vascular Surgery, Dr. Ibrahim who is planning a right below knee amputation and left foot debridement tentatively on Monday once his INR is corrected. He is currently on Zosyn. His blood cultures have now returned with gram-positive cocci in clusters (4/4 bottles). He has a history of urinary retention with a chronic Crawley in place. The patient is somewhat of a poor historian, though he understands his toes are in bad shape and is needing an amputation. He continues to complain of pain, especially right foot. He also complains of body aches. His fever and chills have settled down. He says he was having some chest pain earlier that has since resolved. He denies cough, shortness of air. Denies nausea, vomiting or diarrhea. PAST MEDICAL HISTORY: Beta hemolytic strep group B bacteremia in 2017. Pseudomonas aeruginosa UTI (resistant to Cipro, levofloxacin and intermediate susceptibility to imipenem). Diabetes mellitus type 2, hyperlipidemia, hypertension, coronary artery disease, severe peripheral arterial disease, CVA, atrial fibrillation, on chronic anticoagulation therapy. Ischemic cardiomyopathy. Seizure disorder, cataracts, myocardial infarction, COPD. History of urinary retention with chronic Crawley. Depression. Obesity. PAST SURGICAL HISTORY: Multiple toe amputations. Coronary artery bypass grafting. A pacemaker placement and removal. Bioprosthetic valve. Bilateral lower extremity arterial stents. Pneumonectomy and appendectomy. Left hip replacement. SOCIAL HISTORY: The patient is cared for at home and is followed by hospice services prior to this admission. He is a former smoker. FAMILY HISTORY: Positive for throat cancer, hypercholesterolemia, and coronary artery disease. ALLERGIES: No known drug allergies. MEDICATIONS: Zosyn, warfarin now on hold, Keppra. Other medications are available and have been reviewed on the APR. REVIEW OF SYSTEMS: Per HPI, otherwise all other review of systems are negative. PHYSICAL EXAMINATION: VITAL SIGNS: Temperature is 97.2, T-max 102.2, blood pressure 118/76, heart rate 83, respiratory rate 20, pulse oximetry 100% on 2 liters oxygen. BMI 30. GENERAL: The patient is propped up in bed, alert, calm, in no apparent distress. HEENT: Pupils equally round, reactive. Normal conjunctivae. Oral cavity, pharynx pink, moist. NECK: Supple. LUNGS: Clear to auscultation. HEART: S1 and S2, soft murmur. Irregular. ABDOMEN: Obese, soft and nontender with bowel sounds present. GENITOURINARY: Indwelling Crawley in place. EXTREMITIES: Trace edema in lower extremities bilaterally. He has a dry gangrene involving third through fifth right toes and a necrotic right heel. He also has ulcer, left lateral malleolus with drainage and redness. Distal pulses difficult to palpate. SKIN: Warm without rash. No peripheral stigmata. He has several tattoos. NEUROLOGIC: Alert, oriented to place and president. He follows simple commands. Peripheral IV looks okay. LABORATORY DATA: Today's WBC 12.3 from 20.8, hemoglobin 9.9, platelets 175,000. Creatinine 1.4 from 1.5, BUN 20. Electrolytes are unremarkable. Sodium 139, potassium 3.1. Glucose 103. Lactic acid 1.0, AST 20, ALT 13, total bilirubin 0.7, lipase 21. Blood cultures from 05/18/2018 show gram-positive cocci in clusters 4/4 bottles. X-ray right foot shows no osteomyelitis evident radiographically. Bilateral lower extremity arterial ultrasound shows focal stenosis at the right, reviewed. IMPRESSION: 1. Gram-positive cocci bacteremia (4/4 bottles) with sepsis present on admission. 2. Infected ulcer, left ankle. 3. Gangrene involving right third and fourth toes. First amputation site and heel. 4. Bioprosthetic valve. 5. Renal insufficiency. 6. Encephalopathy. 7. Coagulopathy, on chronic warfarin. 8. Atrial fibrillation with rapid ventricular response. 9. Severe peripheral arterial disease. 10. Diabetes mellitus type 2. 11. Chronic Crawley for urinary retention. PLAN: Continue the Zosyn and add vancomycin. Obtain wound culture. Repeat blood cultures in the a.m. Also, obtain a UA with culture and sensitivity if indicated and will have the Crawley catheter changed. Continue local wound care and offloading. He is scheduled to have a right below knee amputation and left foot debridement tentatively planned for Monday. Vascular is following. Continue to monitor laboratory values and renal function closely. Discussed with nursing. Critically ill. Thank you, Dr. Rosa, for asking us to participate in this patient's care. Should you have further questions or concerns, please call. DIOGENES HASTINGS MD DR: NAHUN/nts JOB#: [id number] / [id number]
[2018-05-19] MEDS: ATORVASTATIN CALCIUM 40 MG TABLET. PO SCH (21:03)
[2018-05-19] MEDS: risperiDONE 1 MG TABLET. PO SCH (21:56)
--- NOTE | 2018-05-19 23:19 | NUR ---
Dr Gonzales was paged via [employer] re: hypotension.
--- NOTE | 2018-05-19 23:22 | NUR ---
Dr Gonzales returned call. Per report Dr Vera D/C IVF due to pts intake was more than output. No further orders except to continue to monitor pt.
[2018-05-20] VITALS (24 sets, daily range): BP systolic 84–136; BP diastolic 29–89
[2018-05-20] MEDS: PIPERACILLIN/TAZOBACTAM 3.375 GM in IV NORMAL SALINE 50ML 50 ML IV SCH ×4 (00:35→17:40)
[2018-05-20] MEDS ORDERED: IV NORMAL SALINE 500ML BAG 500 ML IV ONE (01:15)
[2018-05-20] MEDS: ACETAMINOPHEN 650 MG SUPP.RECT. PR PRN (01:31)
[2018-05-20 04:21] LABS: BASO # 0.1 x10^3/uL (0.0-0.2); BASO % 1 % (0-3); EOS # 0.1 x10^3/uL (0.0-0.7); EOS % 1 % (0-3); HEMATOCRIT 28.8 % (39.0-53.0); LYMPH # 0.4 x10^3/uL (1.0-4.8); LYMPH % 3 % (24-48); MEAN CORPUSCULAR HEMOGLOBIN 27 pg (25-35); MEAN CORPUSCULAR HGB CONC 31 g/dL (31-37); MEAN CORPUSCULAR VOLUME 84 fL (79-100); MONO % 9 % (0-9); NEUT # 9.7 x10^3uL (1.8-7.7); NEUT % 86 % (31-73); PLATELET COUNT 158 x10^3/uL (140-400); RED BLOOD COUNT 3.42 x10^6/uL (4.30-5.70); RED CELL DISTRIBUTION WIDTH 16.1 % (11.5-14.5); WHITE BLOOD COUNT 11.3 x10^3/uL (4.0-11.0)
[2018-05-20 04:38] LABS: PROTHROMBIN TIME PATIENT 25.4 SEC (11.7-14.0)
[2018-05-20 04:46] LABS: CREATININE 1.9 mg/dL (0.7-1.3); GFR 34.6
[2018-05-20] MEDS: IPRATRPIUM/ALBUTEROL 0.5/2.5MG 3 ML NEBU. NEB SCH ×4 (07:53→19:51)
[2018-05-20] MEDS: INSULIN LISPRO 300 UNITS/3 ML INSULN.PEN. SQ SCH ×4 (08:00→17:00)
[2018-05-20] MEDS: POTASSIUM CHLORIDE 20 MEQ TABLET.ER. PO SCH (08:00)
[2018-05-20] MEDS: metFORMIN 500 MG TABLET PO SCH ×2 (08:00→15:04)
[2018-05-20] MEDS: hydrALAZINE 10 MG TABLET PO SCH ×3 (08:01→20:08)
[2018-05-20] MEDS: LISINOPRIL 20 MG TABLET PO SCH (08:02)
[2018-05-20] MEDS: METOPROLOL TART IMMED RELEASE 50 MG TABLET. PO SCH ×2 (08:02→20:09)
[2018-05-20] MEDS: GABAPENTIN 300 MG CAPSULE. PO SCH (09:00)
[2018-05-20] MEDS: MULTIVITAMIN with MINERAL TABLET. PO SCH (09:00)
[2018-05-20] MEDS: FUROSEMIDE 40 MG TABLET. PO SCH (09:00)
[2018-05-20] MEDS: ZONISAMIDE 100 MG CAPSULE. PO SCH (09:00)
[2018-05-20] MEDS: levETIRAcetam 250 MG TABLET PO SCH ×2 (09:00→21:16)
--- NOTE | 2018-05-20 09:00 | PDOC ---
Infectious Disease Note Subjective Subjective Fevers, Tmax 102.0 Vital Sign Vital Signs Vital Signs Date Time Temp Pulse Resp B/P (MAP) Pulse Ox O2 Delivery O2 Flow Rate FiO2 05/20/18 08:02 88 115/45 05/20/18 08:00 100.7 17 100 Nasal Cannula 2.0 100.7 Physical Exam PHYSICAL EXAM GENERAL: Resting quietly HEENT: Pupils equally round, reactive. Normal conjunctivae. Oral cavity, pharynx pink, dry NECK: Supple. LUNGS: Clear to auscultation. HEART: S1 and S2, soft murmur. Irregular. ABDOMEN: Obese, soft and nontender with bowel sounds present. GENITOURINARY: Indwelling Crawley in place. EXTREMITIES: Trace edema in lower extremities bilaterally. He dry gangrene involving third through fifth right toes and a necrotic pressure wound right heel. He also has ulcer, left lateral malleolus with drainage and redness. Distal pulses difficult to palpate. SKIN: Warm without rash. No peripheral stigmata. Several tattoos. NEUROLOGIC: Arouses to voice, Peripheral IV Labs Lab Laboratory Tests Test 05/19/18 11:53 05/19/18 17:07 05/19/18 20:05 05/19/18 20:59 Glucose (Fingerstick) 98 mg/dL (70-99) 117 mg/dL (70-99) 137 mg/dL (70-99) Urine Collection Type Unknown Urine Color Yellow Urine Clarity Clear Urine pH 5.0 Urine Specific [place] 1.020 Urine Protein Negative mg/dL (NEG-TRACE) Urine Glucose (UA) Negative mg/dL (NEG) Urine Ketones (Stick) Negative mg/dL (NEG) Urine Blood Small (NEG) Urine Nitrite Negative (NEG) Urine Bilirubin Negative (NEG) Urine Urobilinogen Dipstick 1.0 mg/dL (0.2 mg/dL) Urine Leukocyte Esterase Moderate (NEG) Urine RBC 1-2 /HPF (0-2) Urine WBC 20-40 /HPF (0-4) Urine Amorphous Sediment Present /HPF Urine Bacteria Few /HPF (0-FEW) Urine Hyaline Casts Few /HPF Urine Mucus Mod /LPF Test 05/20/18 03:30 05/20/18 07:55 White Blood Count 11.3 x10^3/uL (4.0-11.0) Red Blood Count 3.42 x10^6/uL (4.30-5.70) Hemoglobin 9.0 g/dL (13.0-17.5) Hematocrit 28.8 % (39.0-53.0) Mean Corpuscular Volume 84 fL (79-100) Mean Corpuscular Hemoglobin 27 pg (25-35) Mean Corpuscular Hemoglobin Concent 31 g/dL (31-37) Red Cell Distribution Width 16.1 % (11.5-14.5) Platelet Count 158 x10^3/uL (140-400) Neutrophils (%) (Auto) 86 % (31-73) Lymphocytes (%) (Auto) 3 % (24-48) Monocytes (%) (Auto) 9 % (0-9) Eosinophils (%) (Auto) 1 % (0-3) Basophils (%) (Auto) 1 % (0-3) Neutrophils # (Auto) 9.7 x10^3uL (1.8-7.7) Lymphocytes # (Auto) 0.4 x10^3/uL (1.0-4.8) Monocytes # (Auto) 1.0 x10^3/uL (0.0-1.1) Eosinophils # (Auto) 0.1 x10^3/uL (0.0-0.7) Basophils # (Auto) 0.1 x10^3/uL (0.0-0.2) Prothrombin Time 25.4 SEC (11.7-14.0) Prothromb Time International Ratio 2.3 (0.8-1.1) Creatinine 1.9 mg/dL (0.7-1.3) Estimated GFR (Cockcroft-Gault) 34.6 Glucose (Fingerstick) 105 mg/dL (70-99) Micro /. BLOOD CULTURE Final GRAM POSITIVE COCCI IN CLUSTERS 2 SETS DRAWN, 4 OF 4 POSITIVE Objective Assessment Fever GPC bacteremia (4 of 4 bottles) with sepsis, POA Infected ulcer left ankle Gangrene involving right 3-5 toes, 1st amp site and heel Bioprosthetic valve Renal insufficiency/JIMMY Encephalopathy Coagulopathy, on chronic warfarin A- fib RVR Severe PAD s/p BLE stents and previous toe amputations Diabetes Type II h/o PSA ( R quinolones & I imipenem) h/o group B strep bacteremia, 2017 Plan Plan of Care Continue Zosyn Switch vanc to Dapto given JIMMY wound culture pending Repeat BC 05/20 pending UC pending Monitor labs and renal function closely Local wound care and offloading Right BKA and left foot debridement tentatively planned for Monday May need ECHO pending ID organism D/w nursing D/w Dr. Urias D/w Dr. Hastings Critically ill Patient seen and examined. Chart reviewed in detail. Case discussed with FLYING SQUAD SALESPERSON. Agree with above plan. GIO GASPAR BRUSH SANDER May 20, 2018 09:00 DIOGENES HASTINGS MD May 20, 2018 18:47
--- NOTE | 2018-05-20 09:58 | PDOC ---
Provider Note Provider Note Tm 102, BP 97/37, P77, 98% on 2L awake and alert however falls asleep easily right foot with extensive dry gangrene of the forefoot and heel with improved cellulitis left lateral foot necrotic ulcer WBC improved to 11 A/P 78 year old male with bilateral lower extremity peripheral artery disease and severe gangrene of the right foot, left foot ulcer and bacteremia - plan right below the knee amputation and left foot debridement tomorrow - correcting INR currently 2.3, will give more vitamin k now, recheck this evening and if not corrected will give FFP - IV antibiotics per ID - pt has been in hospice however would like to proceed with this surgery STEVEN SUTHERLAND MD May 20, 2018 09:58
--- NOTE | 2018-05-20 10:27 | PDOC ---
CARDIOLOGY PROGRESS NOTE SUBJECTIVE: No acute cardiac events overnight. Mild hypotension this am. Meds held. Cr worsening OBJECTIVE: Vital SIgns: Vital Signs Date Time Temp Pulse Resp B/P (MAP) Pulse Ox O2 Delivery O2 Flow Rate FiO2 05/20/18 10:00 100.4 109 13 107/61 (76) 100 Nasal Cannula 2.0 100.4 I & O Even overnight Objective: No significant changes to cardiac exam. He is drowsy but responsive. irregular heart tones LE similar in appearance. CURRENT MEDICATIONS: Oral meds held. lasix, metoprolol, lisinopril held. DIAGNOSTIC TESTING: Cr 1.9 Hgb downtrending ASSESSMENT: 1. Permanent afib 2. Ischemic CMP and prior bioprosthetic AV 3. Severe CLI PLAN: 1. Due to hypotension, drowsiness and worsening renal failure, hold lisinopril and lasix. Use iV metop and hydralazine prn for HR/BP issues. Supportive care. ADDIS TOM MD May 20, 2018 10:27
[2018-05-20] MEDS ORDERED: PHYTONADIONE (VIT K1) IV 5 MG in IV DEXTROSE 5% 50 ML IV ONE (10:30)
--- NOTE | 2018-05-20 11:42 | PDOC ---
PROGRESS NOTES Chief Complaint Chief Complaint Severe sepsis cellulitis w/ gangrenous toes A. fib RVR, acute diastolic CHF Supra therapeutic INR 4.8 vasomotor nephropathy Hypokalemia Leukocytosis 20, fever temperature 102 Diabetes type 2 on insulin History PAD-known to vascular surgery Bioprosthetic heart valve History of Present Illness History of Present Illness admitted for necrotic right toes, plan vasc surg intervention some pain, marked weakness Pt denies any chest pain - no palpitations. No nausea or vomiting or diarrhea. 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 Normal conjunctivae. Oral cavity, pharynx pink, dry NECK: Supple. LUNGS: Clear to auscultation. HEART: S1 and S2, soft murmur. Irregular. ABDOMEN: Obese, soft and nontender with bowel sounds present. GENITOURINARY: Indwelling Crawley in place. EXTREMITIES: Trace edema in lower extremities bilaterally. He dry gangrene involving third through fifth right toes and a necrotic pressure wound right heel. He also has ulcer, left lateral malleolus with drainage and redness. Distal pulses difficult to palpate. SKIN: Warm without rash. No peripheral stigmata. Several tattoos. 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 and 2 gangrenous toes on the right, chronic hyperpigmentation bilateral shins and foot) Labs LABS Laboratory Tests Test 05/19/18 11:53 05/19/18 17:07 05/19/18 20:05 05/19/18 20:59 Glucose (Fingerstick) 98 mg/dL (70-99) 117 mg/dL (70-99) 137 mg/dL (70-99) Urine Collection Type Unknown Urine Color Yellow Urine Clarity Clear Urine pH 5.0 Urine Specific [place] 1.020 Urine Protein Negative mg/dL (NEG-TRACE) Urine Glucose (UA) Negative mg/dL (NEG) Urine Ketones (Stick) Negative mg/dL (NEG) Urine Blood Small (NEG) Urine Nitrite Negative (NEG) Urine Bilirubin Negative (NEG) Urine Urobilinogen Dipstick 1.0 mg/dL (0.2 mg/dL) Urine Leukocyte Esterase Moderate (NEG) Urine RBC 1-2 /HPF (0-2) Urine WBC 20-40 /HPF (0-4) Urine Amorphous Sediment Present /HPF Urine Bacteria Few /HPF (0-FEW) Urine Hyaline Casts Few /HPF Urine Mucus Mod /LPF Test 05/20/18 03:30 05/20/18 07:55 White Blood Count 11.3 x10^3/uL (4.0-11.0) Red Blood Count 3.42 x10^6/uL (4.30-5.70) Hemoglobin 9.0 g/dL (13.0-17.5) Hematocrit 28.8 % (39.0-53.0) Mean Corpuscular Volume 84 fL (79-100) Mean Corpuscular Hemoglobin 27 pg (25-35) Mean Corpuscular Hemoglobin Concent 31 g/dL (31-37) Red Cell Distribution Width 16.1 % (11.5-14.5) Platelet Count 158 x10^3/uL (140-400) Neutrophils (%) (Auto) 86 % (31-73) Lymphocytes (%) (Auto) 3 % (24-48) Monocytes (%) (Auto) 9 % (0-9) Eosinophils (%) (Auto) 1 % (0-3) Basophils (%) (Auto) 1 % (0-3) Neutrophils # (Auto) 9.7 x10^3uL (1.8-7.7) Lymphocytes # (Auto) 0.4 x10^3/uL (1.0-4.8) Monocytes # (Auto) 1.0 x10^3/uL (0.0-1.1) Eosinophils # (Auto) 0.1 x10^3/uL (0.0-0.7) Basophils # (Auto) 0.1 x10^3/uL (0.0-0.2) Prothrombin Time 25.4 SEC (11.7-14.0) Prothromb Time International Ratio 2.3 (0.8-1.1) Creatinine 1.9 mg/dL (0.7-1.3) Estimated GFR (Cockcroft-Gault) 34.6 Glucose (Fingerstick) 105 mg/dL (70-99) Assessment and Plan Assessmemt and Plan Problems Medical Problems: (1) Fever Status: Acute (2) Gangrene of toe Status: Acute (3) Leukocytosis Status: Acute (4) Severe sepsis Status: Acute Comment Review of Relevant I have reviewed the following items navi (where applicable) has been applied. Labs Laboratory Tests Test 05/18/18 13:10 05/18/18 17:00 05/18/18 17:25 05/19/18 04:00 White Blood Count 20.8 x10^3/uL (4.0-11.0) 12.3 x10^3/uL (4.0-11.0) Red Blood Count 4.33 x10^6/uL (4.30-5.70) 3.76 x10^6/uL (4.30-5.70) Hemoglobin 11.5 g/dL (13.0-17.5) 9.9 g/dL (13.0-17.5) Hematocrit 36.4 % (39.0-53.0) 31.7 % (39.0-53.0) Mean Corpuscular Volume 84 fL (79-100) 84 fL (79-100) Mean Corpuscular Hemoglobin 27 pg (25-35) 26 pg (25-35) Mean Corpuscular Hemoglobin Concent 32 g/dL (31-37) 31 g/dL (31-37) Red Cell Distribution Width 15.5 % (11.5-14.5) 15.9 % (11.5-14.5) Platelet Count 228 x10^3/uL (140-400) 175 x10^3/uL (140-400) Neutrophils (%) (Auto) 92 % (31-73) 90 % (31-73) Lymphocytes (%) (Auto) 1 % (24-48) 2 % (24-48) Monocytes (%) (Auto) 6 % (0-9) 7 % (0-9) Eosinophils (%) (Auto) 0 % (0-3) 1 % (0-3) Basophils (%) (Auto) 1 % (0-3) 1 % (0-3) Neutrophils # (Auto) 19.2 x10^3uL (1.8-7.7) 11.0 x10^3uL (1.8-7.7) Lymphocytes # (Auto) 0.3 x10^3/uL (1.0-4.8) 0.3 x10^3/uL (1.0-4.8) Monocytes # (Auto) 1.2 x10^3/uL (0.0-1.1) 0.8 x10^3/uL (0.0-1.1) Eosinophils # (Auto) 0.0 x10^3/uL (0.0-0.7) 0.1 x10^3/uL (0.0-0.7) Basophils # (Auto) 0.1 x10^3/uL (0.0-0.2) 0.1 x10^3/uL (0.0-0.2) Segmented Neutrophils % 74 % (35-66) Band Neutrophils % 15 % (0-9) Lymphocytes % 1 % (24-48) Monocytes % 9 % (0-10) Basophils % 1 % (0-3) Toxic Vacuolation Present Platelet Estimate Adequate (ADEQUATE) Anisocytosis Slight Prothrombin Time 44.9 SEC (11.7-14.0) 52.8 SEC (11.7-14.0) Prothromb Time International Ratio 4.8 (0.8-1.1) 5.8 (0.8-1.1) Sodium Level 139 mmol/L (136-145) 139 mmol/L (136-145) Potassium Level 3.6 mmol/L (3.5-5.1) 3.1 mmol/L (3.5-5.1) Chloride Level 98 mmol/L (98-107) 102 mmol/L (98-107) Carbon Dioxide Level 29 mmol/L (21-32) 23 mmol/L (21-32) Anion Gap 12 (6-14) 14 (6-14) Blood Urea Nitrogen 22 mg/dL (8-26) 20 mg/dL (8-26) Creatinine 1.5 mg/dL (0.7-1.3) 1.4 mg/dL (0.7-1.3) Estimated GFR (Cockcroft-Gault) 45.5 49.3 BUN/Creatinine Ratio 15 (6-20) Glucose Level 110 mg/dL (70-99) 103 mg/dL (70-99) Lactic Acid Level 1.7 mmol/L (0.4-2.0) 1.0 mmol/L (0.4-2.0) 1.0 mmol/L (0.4-2.0) Calcium Level 9.0 mg/dL (8.5-10.1) 8.3 mg/dL (8.5-10.1) Total Bilirubin 0.7 mg/dL (0.2-1.0) Aspartate Amino Transf (AST/SGOT) 20 U/L (15-37) Alanine Aminotransferase (ALT/SGPT) 13 U/L (16-63) Alkaline Phosphatase 78 U/L (46-116) Total Protein 7.9 g/dL (6.4-8.2) Albumin 2.7 g/dL (3.4-5.0) Albumin/Globulin Ratio 0.5 (1.0-1.7) Lipase 21 U/L (73-393) Nasal Screen MRSA (PCR) Positive (Negative) Magnesium Level 1.8 mg/dL (1.8-2.4) Test 05/19/18 11:53 05/19/18 17:07 05/19/18 20:05 05/19/18 20:59 Glucose (Fingerstick) 98 mg/dL (70-99) 117 mg/dL (70-99) 137 mg/dL (70-99) Urine Collection Type Unknown Urine Color Yellow Urine Clarity Clear Urine pH 5.0 Urine Specific [place] 1.020 Urine Protein Negative mg/dL (NEG-TRACE) Urine Glucose (UA) Negative mg/dL (NEG) Urine Ketones (Stick) Negative mg/dL (NEG) Urine Blood Small (NEG) Urine Nitrite Negative (NEG) Urine Bilirubin Negative (NEG) Urine Urobilinogen Dipstick 1.0 mg/dL (0.2 mg/dL) Urine Leukocyte Esterase Moderate (NEG) Urine RBC 1-2 /HPF (0-2) Urine WBC 20-40 /HPF (0-4) Urine Amorphous Sediment Present /HPF Urine Bacteria Few /HPF (0-FEW) Urine Hyaline Casts Few /HPF Urine Mucus Mod /LPF Test 05/20/18 03:30 05/20/18 07:55 White Blood Count 11.3 x10^3/uL (4.0-11.0) Red Blood Count 3.42 x10^6/uL (4.30-5.70) Hemoglobin 9.0 g/dL (13.0-17.5) Hematocrit 28.8 % (39.0-53.0) Mean Corpuscular Volume 84 fL (79-100) Mean Corpuscular Hemoglobin 27 pg (25-35) Mean Corpuscular Hemoglobin Concent 31 g/dL (31-37) Red Cell Distribution Width 16.1 % (11.5-14.5) Platelet Count 158 x10^3/uL (140-400) Neutrophils (%) (Auto) 86 % (31-73) Lymphocytes (%) (Auto) 3 % (24-48) Monocytes (%) (Auto) 9 % (0-9) Eosinophils (%) (Auto) 1 % (0-3) Basophils (%) (Auto) 1 % (0-3) Neutrophils # (Auto) 9.7 x10^3uL (1.8-7.7) Lymphocytes # (Auto) 0.4 x10^3/uL (1.0-4.8) Monocytes # (Auto) 1.0 x10^3/uL (0.0-1.1) Eosinophils # (Auto) 0.1 x10^3/uL (0.0-0.7) Basophils # (Auto) 0.1 x10^3/uL (0.0-0.2) Prothrombin Time 25.4 SEC (11.7-14.0) Prothromb Time International Ratio 2.3 (0.8-1.1) Creatinine 1.9 mg/dL (0.7-1.3) Estimated GFR (Cockcroft-Gault) 34.6 Glucose (Fingerstick) 105 mg/dL (70-99) Laboratory Tests Test 05/19/18 11:53 05/19/18 17:07 05/19/18 20:05 05/19/18 20:59 Glucose (Fingerstick) 98 mg/dL (70-99) 117 mg/dL (70-99) 137 mg/dL (70-99) Urine Collection Type Unknown Urine Color Yellow Urine Clarity Clear Urine pH 5.0 Urine Specific [place] 1.020 Urine Protein Negative mg/dL (NEG-TRACE) Urine Glucose (UA) Negative mg/dL (NEG) Urine Ketones (Stick) Negative mg/dL (NEG) Urine Blood Small (NEG) Urine Nitrite Negative (NEG) Urine Bilirubin Negative (NEG) Urine Urobilinogen Dipstick 1.0 mg/dL (0.2 mg/dL) Urine Leukocyte Esterase Moderate (NEG) Urine RBC 1-2 /HPF (0-2) Urine WBC 20-40 /HPF (0-4) Urine Amorphous Sediment Present /HPF Urine Bacteria Few /HPF (0-FEW) Urine Hyaline Casts Few /HPF Urine Mucus Mod /LPF Test 05/20/18 03:30 05/20/18 07:55 White Blood Count 11.3 x10^3/uL (4.0-11.0) Red Blood Count 3.42 x10^6/uL (4.30-5.70) Hemoglobin 9.0 g/dL (13.0-17.5) Hematocrit 28.8 % (39.0-53.0) Mean Corpuscular Volume 84 fL (79-100) Mean Corpuscular Hemoglobin 27 pg (25-35) Mean Corpuscular Hemoglobin Concent 31 g/dL (31-37) Red Cell Distribution Width 16.1 % (11.5-14.5) Platelet Count 158 x10^3/uL (140-400) Neutrophils (%) (Auto) 86 % (31-73) Lymphocytes (%) (Auto) 3 % (24-48) Monocytes (%) (Auto) 9 % (0-9) Eosinophils (%) (Auto) 1 % (0-3) Basophils (%) (Auto) 1 % (0-3) Neutrophils # (Auto) 9.7 x10^3uL (1.8-7.7) Lymphocytes # (Auto) 0.4 x10^3/uL (1.0-4.8) Monocytes # (Auto) 1.0 x10^3/uL (0.0-1.1) Eosinophils # (Auto) 0.1 x10^3/uL (0.0-0.7) Basophils # (Auto) 0.1 x10^3/uL (0.0-0.2) Prothrombin Time 25.4 SEC (11.7-14.0) Prothromb Time International Ratio 2.3 (0.8-1.1) Creatinine 1.9 mg/dL (0.7-1.3) Estimated GFR (Cockcroft-Gault) 34.6 Glucose (Fingerstick) 105 mg/dL (70-99) Microbiology 05/18/18 Blood Culture - Final, Complete Medications Current Medications Sodium Chloride 1,000 ml @ 2,190 mls/hr Q28M IV Last administered on at 14:36; Start 05/18/18 at 12:52; Stop 05/18/18 at 13:52; Status DC Piperacillin Sod/ Tazobactam Sod 4.5 gm/Sodium Chloride 100 ml @ 200 mls/hr 1X ONCE IV Last administered on 05/18/18at 14:34; Start 05/18/18 at 13:00; Stop 05/18/18 at 13:29; Status DC Vancomycin HCl (Vanco Per Pharmacy) 1 each 1X ONCE MC Last administered on 01/24at 13:00; Start 05/18/18 at 13:00; Stop 05/18/18 at 13:11; Status DC Vancomycin HCl 2 gm/Sodium Chloride 500 ml @ 250 mls/hr 1X ONCE IV Last administered on 05/18/18at 15:28; Start 05/18/18 at 13:15; Stop 05/18/18 at 15:14 ; Status DC Ondansetron HCl (Zofran) 4 mg PRN Q8HRS PRN IV NAUSEA/VOMITING; Start 05/18/18 at 14:45; Stop 05/18/18 at 15:28; Status DC Fentanyl Citrate (Fentanyl 2ml Vial) 50 mcg PRN Q1HR PRN IV PAIN; Start at 14:45; Stop 05/19/18 at 11:50; Status DC Sodium Chloride 1,000 ml @ 80 mls/hr [id number] IV ; Start 05/18/18 at 14:43; Stop 05/18/18 at 18:42; Status DC Acetaminophen (Tylenol) 650 mg 1X ONCE PO Last administered on 05/18/18at 15:29 ; Start 05/18/18 at 15:30; Stop 05/18/18 at 15:31; Status DC Ondansetron HCl (Zofran) 4 mg PRN Q6HRS PRN IV NAUSEA/VOMITING; Start 05/18/18 at 15:30 Diltiazem HCl (Cardizem Iv Push) 10 mg 1X ONCE IVP ; Start 05/18/18 at 15:30; Stop 05/18/18 at 15:31; Status DC Acetaminophen (Tylenol) 500 mg PRN Q6HRS PRN PO MILD PAIN / TEMP; Start at 15:30; Stop 05/18/18 at 16:14; Status DC Acetaminophen/ Codeine Phosphate (Tylenol #3) 1 tab PRN Q6HRS PRN PO MODERATE PAIN Last administered on 05/19/18at 10:12; Start 05/18/18 at 15:30 Morphine Sulfate (Morphine Sulfate) 2 mg PRN Q2HR PRN IV PAIN; Start 05/18/18 at 15:30 Oxycodone/ Acetaminophen (Percocet 5/325) 1 tab PRN Q4HRS PRN PO SEVERE PAIN; Start 05/18/18 at 15:30 Albuterol Sulfate (Ventolin Hfa) 2 puff PRN Q6HRS PRN IH SHORTNESS OF BREATH; Start 05/18/18 at 15:30; Status UNV Digoxin (Lanoxin) 125 mcg DAILY PO ; Start 05/19/18 at 09:00; Stop 05/19/18 at 09:00; Status DC Furosemide (Lasix) 40 mg DAILY PO ; Start 05/19/18 at 09:00 Gabapentin (Neurontin) 300 mg DAILY PO Last administered on 05/19/18at 10:15; Start 05/19/18 at 09:00 Lisinopril (Prinivil) 20 mg DAILY PO Last administered on 05/19/18at 10:14; Start 05/19/18 at 09:00 Metoprolol Tartrate (Lopressor) 50 mg BID PO Last administered on 05/19/18at 10: 13; Start 05/18/18 at 21:00 Oxycodone/ Acetaminophen (Percocet 10/325) 1 tab PRN Q6HRS PRN PO SEVERE PAIN ( 2ND Choice) Last administered on 05/19/18 19:24; Start 05/18/18 at 15:30 Oxycodone/ Acetaminophen (Percocet 5/325) 1 tab PRN Q4HRS PRN PO PAIN; Start at 15:30; Status UNV Acetaminophen (Tylenol) 500 mg PRN Q6HRS PRN PO MILD PAIN / TEMP; Start at 16:15 Atorvastatin Calcium (Lipitor) 80 mg QHS PO Last administered on 05/19/18at 21: 03; Start 05/18/18 at 21:00 Hydralazine HCl (Apresoline) 10 mg TID PO Last administered on 05/19/18 10:16 ; Start 05/18/18 at 16:00 Insulin Human Lispro (HumaLOG) 10 units DAILYWBKFT SQ ; Start 05/18/18 at 17:00 Levetiracetam (Keppra) 1,250 mg BID PO Last administered on 05/19/18 21:04; Start 05/18/18 at 21:00 Metformin HCl (Glucophage) 1,000 mg BIDWMEALS PO Last administered on at 17:09; Start 05/18/18 at 17:00 Multivitamins (Thera M Plus) 1 tab DAILY PO Last administered on 05/19/18at 10: 13; Start 05/19/18 at 09:00 Potassium Chloride (Klor-Con) 20 meq DAILYWBKFT PO ; Start 05/19/18 at 08:00 Risperidone (RisperDAL) 1 mg QHS PO Last administered on 05/19/18at 21:56; Start 05/18/18 at 21:00 Non-Formulary Medication (Rosuvastatin Calcium (Crestor)) 40 mg DAILY PO ; Start 05/19/18 at 09:00; Status UNV Zonisamide (Zonegran) 400 mg DAILY PO Last administered on 05/19/18 10:22; Start 05/19/18 at 09:00 Albuterol/ Ipratropium (Duoneb) 3 ml Q4HRS W/A NEB Last administered on 07:53; Start 05/18/18 at 18:00 Insulin Human Lispro (HumaLOG) 0-9 UNITS TIDWMEALS SQ ; Start 05/18/18 at 17:00 Dextrose (Dextrose 50%-Water Syringe) 12.5 gm PRN Q15MIN PRN IV SEE COMMENTS; Start 05/18/18 at 15:30 Albuterol Sulfate (Ventolin Neb Soln) 2.5 mg PRN Q6HRS PRN NEB SHORTNESS OF BREATH; Start 05/18/18 at 15:45 Piperacillin Sod/ Tazobactam Sod 3.375 gm/Sodium Chloride 50 ml @ 100 mls/hr Q6HRS IV Last administered on 05/20/18at 06:01; Start 05/18/18 at 18:00 Potassium Chloride (Klor-Con) 40 meq 1X ONCE PO Last administered on at 10:14; Start 05/19/18 at 08:30; Stop 05/19/18 at 08:31; Status DC Heparin Sodium (Porcine) (Heparin Sodium) 5,000 unit Q8HRS SQ ; Start 05/19/18 at 14:00; Stop 05/19/18 at 14:00; Status DC Furosemide (Lasix) 40 mg 1X ONCE IVP Last administered on 05/19/18at 10:12; Start 05/19/18 at 08:45; Stop 05/19/18 at 08:46; Status DC Phytonadione (Vitamin K Ampule) 10 mg 1X ONCE SQ Last administered on at 10:16; Start 05/19/18 at 10:00; Stop 05/19/18 at 10:01; Status DC Vancomycin HCl (Vanco Per Pharmacy) 1 each PRN DAILY PRN MC SEE COMMENTS Last administered on 05/19/18at 10:32; Start 05/19/18 at 10:00; Stop 05/20/18 at 10:42 ; Status DC Phytonadione (Vitamin K Ampule) 10 mg 1X ONCE SQ ; Start 05/19/18 at 10:15; Stop 05/19/18 at 10:16; Status UNV Vancomycin HCl 1.75 gm/Sodium Chloride 500 ml @ 250 mls/hr Q24H IV Last administered on 05/19/18at 16:59; Start 05/19/18 at 16:00; Stop 05/20/18 at 10:42 ; Status DC Vancomycin HCl (Vancomycin Trough Level) 1 each 1X ONCE MC ; Start 05/20/18 at 16:30; Stop 05/20/18 at 16:30; Status DC Acetaminophen (Tylenol Supp) 650 mg PRN Q6HRS PRN NE MILD PAIN / TEMP Last administered on 05/20/18at 01:31; Start 05/20/18 at 01:15 Sodium Chloride 500 ml @ 333 mls/hr 1X ONCE IV Last administered on at 01:14; Start 05/20/18 at 01:15; Stop 05/20/18 at 02:45; Status DC Phytonadione 5 mg/ Dextrose 50.5 ml @ 101 mls/hr 1X ONCE IV Last administered on 05/20/18at 10:08; Start 05/20/18 at 10:30; Stop 05/20/18 at 10:59 ; Status DC Daptomycin 590 mg/ Sodium Chloride 50 ml @ 100 mls/hr Q24H IV ; Start 05/20/18 at 12:00 Active Scripts Active Digoxin 125 Mcg Tablet 125 Mcg PO DAILY Furosemide 40 Mg Tablet 40 Mg PO DAILY Metoprolol Tartrate 50 Mg Tablet 50 Mg PO BID [Warfarin Sodium] 1 EACH Each 1 Each MC PRN DAILY PRN Lisinopril 20 Mg Tablet 20 Mg PO DAILY Duoneb 0.5-3(2.5) Mg/3 Ml (Albuterol/Ipratropium) 3 Ml Ampul.neb 3 Ml NEB Q4HRS W/A 30 Days Hydralazine Hcl 10 Mg Tablet 10 Mg PO TID Reported Zonisamide 100 Mg Capsule 400 Mg PO DAILY Percocet 5-325 Mg Tablet (Oxycodone/Acetaminophen) 1 Each Tablet 1 Tab PO PRN Q4HRS PRN Multivitamins (Multivitamin) 1 Each Tablet 1 Tab PO DAILY Levetiracetam 250 Mg Tablet 1,250 Mg PO BID Novolin N (Nph, Human Insulin Isophane) 100 Unit/1 Ml Vial Unknown Dose SQ Atorvastatin Calcium 80 Mg Tablet 1 Tab PO DAILY Acetaminophen 500 Mg Tablet 1 Tab PO PRN Q6HRS PRN Albuterol Sulfate Hfa Inhaler (Albuterol Sulfate) 8.5 Gm Hfa.aer.ad 2 Puff IH PRN Q6HRS PRN Aspirin Ec (Aspirin) 325 Mg Tablet.dr 81 Mg PO DAILY Crestor (Rosuvastatin Calcium) 40 Mg Tablet 40 Mg PO DAILY Warfarin Sodium 5 Mg Tablet 6 Mg PO DAILY Warfarin Sodium 2.5 Mg Tablet 2.5 Mg PO 3X/WEEK monday,monday, Gabapentin (Gabapentin) 300 Mg Capsule 300 Mg PO DAILY Risperidone 1 Mg Tablet 1 Mg PO HS Novolog (Insulin Aspart) 100 Unit/1 Ml Vial 10 Unit SQ DAILYAC Oxycodone-Acetaminophen 10-325 (Oxycodone Hcl/Acetaminophen) 1 Each Tablet 1 Each PO PRN Q6HRS Potassium 99 Mg Tablet 20 Meq PO DAILY Prednisone (Prednisone) 10 Mg Tablet 10 Mg PO DAILY Metformin Hcl 500 Mg Tablet 1,000 Mg PO BIDBFRMEAL Vitals/I & O Vital Sign - Last 24 Hours 05/19/18 05/19/18 05/19/18 05/19/18 11:49 12:00 12:00 13:00 Pulse 66 66 Resp 26 24 18 B/P (MAP) 107/57 (74) 98/54 (69) Pulse Ox 100 100 100 O2 Delivery Room Air Nasal Cannula Nasal Cannula Nasal Cannula O2 Flow Rate 2.0 2.0 2.0 2.0 05/19/18 05/19/18 05/19/18 05/19/18 13:35 14:00 15:00 16:00 Pulse 64 66 Resp 45 20 B/P (MAP) 81/43 (56) 81/43 (56) Pulse Ox 100 100 100 O2 Delivery Nasal Cannula Nasal Cannula Nasal Cannula Nasal Cannula O2 Flow Rate 2.0 2.0 2.0 2.0 05/19/18 05/19/18 05/19/18 05/19/18 16:00 17:03 17:20 18:00 Temp 98.3 98.3 Pulse 66 65 81 Resp 9 8 11 B/P (MAP) 90/45 (60) 97/48 (64) 96/75 (82) Pulse Ox 100 100 99 100 O2 Delivery Nasal Cannula Nasal Cannula Nasal Cannula Nasal Cannula O2 Flow Rate 2.0 2.0 2.0 2.0 05/19/18 05/19/18 05/19/18 05/19/18 19:00 19:24 20:00 20:00 Temp 100.1 98.6 100.1 98.6 Pulse 78 89 Resp 14 20 14 B/P (MAP) 96/60 (72) 93/68 (76) Pulse Ox 100 100 100 O2 Delivery Nasal Cannula Nasal Cannula Nasal Cannula Nasal Cannula O2 Flow Rate 2.0 2.0 2.0 2.0 05/19/18 05/19/18 05/19/18 05/19/18 20:24 20:35 21:00 22:00 Temp 99.4 99.9 99.4 99.9 Pulse 85 80 Resp 18 19 22 B/P (MAP) 90/57 (68) 87/56 (66) Pulse Ox 96 100 96 100 O2 Delivery Nasal Cannula Nasal Cannula Nasal Cannula Nasal Cannula O2 Flow Rate 2.0 2.0 2.0 2.0 05/19/18 05/19/18 05/20/18 05/20/18 23:00 23:59 00:05 01:00 Temp 98.6 97.8 102.1 98.6 97.8 102.1 Pulse 80 83 81 Resp 13 13 12 B/P (MAP) 82/47 (59) 105/46 (65) 84/46 (59) Pulse Ox 97 100 100 O2 Delivery Nasal Cannula Nasal Cannula Nasal Cannula Nasal Cannula O2 Flow Rate 2.0 2.0 2.0 2.0 05/20/18 05/20/18 05/20/18 05/20/18 01:53 03:33 04:00 04:00 Temp 100.5 99.9 100.6 100.5 99.9 100.6 Pulse 123 105 111 Resp 9 9 10 B/P (MAP) 99/71 (80) 115/50 (71) 113/62 (79) Pulse Ox 100 100 99 O2 Delivery Nasal Cannula Nasal Cannula Nasal Cannula Nasal Cannula O2 Flow Rate 2.0 2.0 2.0 2.0 05/20/18 05/20/18 05/20/18 05/20/18 04:59 05:55 07:00 07:55 Temp 100.3 100.7 100.3 100.7 Pulse 99 77 88 Resp 8 10 10 B/P (MAP) 87/57 (67) 97/38 (57) 97/38 (57) Pulse Ox 96 100 100 100 O2 Delivery Nasal Cannula Nasal Cannula Nasal Cannula Nasal Cannula O2 Flow Rate 2.0 2.0 2.0 2.0 05/20/18 05/20/18 05/20/18 05/20/18 08:00 08:00 08:01 08:02 Temp 100.7 100.7 Pulse 87 88 88 Resp 17 B/P (MAP) 115/45 (68) 115/45 115/45 Pulse Ox 100 O2 Delivery Nasal Cannula Nasal Cannula O2 Flow Rate 2.0 2.0 05/20/18 05/20/18 05/20/18 05/20/18 08:02 09:00 10:00 11:00 Temp 100.4 100.4 Pulse 88 91 109 110 Resp 11 13 11 B/P (MAP) 115/45 114/51 (72) 107/61 (76) 100/41 (60) Pulse Ox 100 100 100 O2 Delivery Nasal Cannula Nasal Cannula Nasal Cannula O2 Flow Rate 2.0 2.0 2.0 Intake and Output 05/19/18 05/19/18 05/20/18 14:59 22:59 06:59 Intake Total 970 ml 300 ml 0 ml Output Total 400 ml 305 ml 220 ml Balance 570 ml -5 ml -220 ml ZAK MENDEZ MD May 20, 2018 11:41
[2018-05-20] MEDS: DAPTOmycin (GENERIC) IVPB 590 MG in IV NORMAL SALINE 50ML 50 ML IV SCH (12:53)
[2018-05-20] MEDS: oxyCODONE/APAP 5/325 1 TAB TABLET PO PRN (13:04)
[2018-05-20 19:26] LABS: PROTHROMBIN TIME PATIENT 18.1 SEC (11.7-14.0)
[2018-05-20] MEDS: risperiDONE 1 MG TABLET. PO SCH (20:08)
[2018-05-20] MEDS: ACETAMINOPHEN 500 MG TABLET PO PRN (20:08)
[2018-05-20] MEDS: ATORVASTATIN CALCIUM 40 MG TABLET. PO SCH (20:08)
--- NOTE | 2018-05-20 22:11 | NUR ---
Spoke with [facility] ICU charge nurse regarding sepsis screen. Patient admitted with sepsis. Lactic acid was ordered result of 0.7. Patient already has positive blood cultures and on antibiotics, bp stable no further action at this time. continue to monitor.
--- NOTE | 2018-05-20 23:39 | NUR ---
Dr Kain noble regarding temperature 101.4 has only been 3 hours since last dose of tylenol which is every 6 hour prn. Continue to monitor.
[2018-05-21] VITALS (21 sets, daily range): BP systolic 98–165; BP diastolic 46–95
[2018-05-21] MEDS: PIPERACILLIN/TAZOBACTAM 3.375 GM in IV NORMAL SALINE 50ML 50 ML IV SCH ×4 (00:11→18:08)
[2018-05-21] MEDS: MORPHINE SULFATE 2 MG/ML VIAL. IV PRN ×2 (05:43→11:48)
[2018-05-21 06:28] LABS: HEMOGLOBIN 10.2 g/dL (13.0-17.5); RED BLOOD COUNT 3.87 x10^6/uL (4.30-5.70); RED CELL DISTRIBUTION WIDTH 16.6 % (11.5-14.5); WHITE BLOOD COUNT 11.1 x10^3/uL (4.0-11.0)
[2018-05-21 06:37] LABS: PROTHROMBIN TIME PATIENT 16.7 SEC (11.7-14.0)
[2018-05-21 06:38] LABS: CALCIUM 8.8 mg/dL (8.5-10.1); CREATININE 1.7 mg/dL (0.7-1.3); GFR 39.4; POTASSIUM 3.5 mmol/L (3.5-5.1)
[2018-05-21] MEDS: INSULIN LISPRO 300 UNITS/3 ML INSULN.PEN. SQ SCH ×4 (08:00→17:00)
--- NOTE | 2018-05-21 08:06 | PDOC ---
Infectious Disease Note Subjective: Subjective Fevers , T max 101 Vital Signs: Vital Signs Vital Signs Date Time Temp Pulse Resp B/P (MAP) Pulse Ox O2 Delivery O2 Flow Rate FiO2 05/21/18 06:16 13 Nasal Cannula 1.0 05/21/18 05:46 115 108/56 (73) 100 05/21/18 04:28 97.2 97.2 Physical Exam: PHYSICAL EXAM GENERAL: Resting quietly HEENT: Pupils equally round, reactive. Normal conjunctivae. Oral cavity, pharynx pink, dry NECK: Supple. LUNGS: Clear to auscultation. HEART: S1 and S2, soft murmur. Irregular. ABDOMEN: Obese, soft and nontender with bowel sounds present. GENITOURINARY: Indwelling Crawley in place. EXTREMITIES: Trace edema in lower extremities bilaterally. He dry gangrene involving third through fifth right toes and a necrotic pressure wound right heel. He also has ulcer, left lateral malleolus with drainage and redness. Distal pulses difficult to palpate. SKIN: Warm without rash. No peripheral stigmata. Several tattoos. NEUROLOGIC: Arouses to voice, Peripheral IV Medications: Inpatient Meds: Current Medications Medications (Trade) Dose Ordered Sig/Ana Start Time Stop Time Status Last Admin Dose Admin Acetaminophen (Tylenol Supp) 650 mg PRN Q6HRS PRN 05/20/18 01:15 05/20/18 01:31 650 MG Acetaminophen (Tylenol) 500 mg PRN Q6HRS PRN 05/18/18 16:15 05/20/18 20:08 500 MG Acetaminophen/ Codeine Phosphate (Tylenol #3) 1 tab PRN Q6HRS PRN 05/18/18 15:30 05/19/18 10:12 1 TAB Albuterol Sulfate (Ventolin Hfa) 2 puff PRN Q6HRS PRN 05/18/18 15:30 UNV Albuterol Sulfate (Ventolin Neb Soln) 2.5 mg PRN Q6HRS PRN 05/18/18 15:45 Albuterol/ Ipratropium (Duoneb) 3 ml Q4HRS W/A 05/18/18 18:00 05/20/18 19:51 3 ML Atorvastatin Calcium (Lipitor) 80 mg QHS 05/18/18 21:00 05/20/18 20:08 80 MG Daptomycin 590 mg/ Sodium Chloride 50 ml @ 100 mls/hr Q24H 05/20/18 12:00 05/20/18 12:53 100 MLS/HR Dextrose (Dextrose 50%-Water Syringe) 12.5 gm PRN Q15MIN PRN 05/18/18 15:30 Digoxin (Lanoxin) 125 mcg DAILY 05/19/18 09:00 05/19/18 09:00 DC Diltiazem HCl (Cardizem Iv Push) 10 mg 1X ONCE 05/18/18 15:30 05/18/18 15:31 DC Fentanyl Citrate (Fentanyl 2ml Vial) 50 mcg PRN Q1HR PRN 05/18/18 14:45 05/19/18 11:50 DC Furosemide (Lasix) 40 mg 1X ONCE 05/19/18 08:45 05/19/18 08:46 DC 05/19/18 10:12 40 MG Gabapentin (Neurontin) 300 mg DAILY 05/19/18 09:00 05/19/18 10:15 300 MG Heparin Sodium (Porcine) (Heparin Sodium) 5,000 unit Q8HRS 05/19/18 14:00 05/19/18 14:00 DC Hydralazine HCl (Apresoline) 10 mg TID 05/18/18 16:00 05/19/18 10:16 10 MG Insulin Human Lispro (HumaLOG) 0-9 UNITS TIDWMEALS 05/18/18 17:00 Levetiracetam (Keppra) 1,250 mg BID 05/18/18 21:00 05/20/18 21:16 1,250 MG Lisinopril (Prinivil) 20 mg DAILY 05/19/18 09:00 05/19/18 10:14 20 MG Metformin HCl (Glucophage) 1,000 mg BIDWMEALS 05/18/18 17:00 05/19/18 17:09 1,000 MG Metoprolol Tartrate (Lopressor) 50 mg BID 05/18/18 21:00 05/19/18 10:13 50 MG Morphine Sulfate (Morphine Sulfate) 2 mg PRN Q2HR PRN 05/18/18 15:30 05/21/18 05:43 2 MG Multivitamins (Thera M Plus) 1 tab DAILY 05/19/18 09:00 05/19/18 10:13 1 TAB Non-Formulary Medication (Rosuvastatin Calcium (Crestor)) 40 mg DAILY 05/19/18 09:00 UNV Ondansetron HCl (Zofran) 4 mg PRN Q6HRS PRN 05/18/18 15:30 Oxycodone/ Acetaminophen (Percocet 10/325) 1 tab PRN Q6HRS PRN 05/18/18 15:30 05/19/18 19:24 1 TAB Oxycodone/ Acetaminophen (Percocet 5/325) 1 tab PRN Q4HRS PRN 05/18/18 15:30 UNV Phytonadione (Vitamin K Ampule) 10 mg 1X ONCE 05/19/18 10:15 05/19/18 10:16 UNV Phytonadione 5 mg/ Dextrose 50.5 ml @ 101 mls/hr 1X ONCE 05/20/18 10:30 05/20/18 10:59 DC 05/20/18 10:08 101 MLS/HR Piperacillin Sod/ Tazobactam Sod 3.375 gm/Sodium Chloride 50 ml @ 100 mls/hr Q6HRS 05/18/18 18:00 05/21/18 05:44 100 MLS/HR Piperacillin Sod/ Tazobactam Sod 4.5 gm/Sodium Chloride 100 ml @ 200 mls/hr 1X ONCE 05/18/18 13:00 05/18/18 13:29 DC 05/18/18 14:34 200 MLS/HR Potassium Chloride (Klor-Con) 40 meq 1X ONCE 05/19/18 08:30 05/19/18 08:31 DC 05/19/18 10:14 40 MEQ Risperidone (RisperDAL) 1 mg QHS 05/18/18 21:00 05/20/18 20:08 1 MG Sodium Chloride 500 ml @ 333 mls/hr 1X ONCE 05/20/18 01:15 05/20/18 02:45 DC 05/20/18 01:14 333 MLS/HR Vancomycin HCl (Vanco Per Pharmacy) 1 each PRN DAILY PRN 05/19/18 10:00 05/20/18 10:42 DC 05/19/18 10:32 1 EACH Vancomycin HCl (Vancomycin Trough Level) 1 each 1X ONCE 05/20/18 16:30 05/20/18 16:30 DC Vancomycin HCl 1.75 gm/Sodium Chloride 500 ml @ 250 mls/hr Q24H 05/19/18 16:00 05/20/18 10:42 DC 05/19/18 16:59 250 MLS/HR Vancomycin HCl 2 gm/Sodium Chloride 500 ml @ 250 mls/hr 1X ONCE 05/18/18 13:15 05/18/18 15:14 DC 05/18/18 15:28 250 MLS/HR Zonisamide (Zonegran) 400 mg DAILY 05/19/18 09:00 05/19/18 10:22 400 MG Labs: Lab Laboratory Tests Test 05/20/18 12:09 05/20/18 17:31 05/20/18 19:10 05/20/18 21:30 Glucose (Fingerstick) 123 mg/dL (70-99) 126 mg/dL (70-99) Prothrombin Time 18.1 SEC (11.7-14.0) Prothromb Time International Ratio 1.5 (0.8-1.1) Lactic Acid Level 0.7 mmol/L (0.4-2.0) Test 05/21/18 06:00 White Blood Count 11.1 x10^3/uL (4.0-11.0) Red Blood Count 3.87 x10^6/uL (4.30-5.70) Hemoglobin 10.2 g/dL (13.0-17.5) Hematocrit 33.0 % (39.0-53.0) Mean Corpuscular Volume 85 fL (79-100) Mean Corpuscular Hemoglobin 26 pg (25-35) Mean Corpuscular Hemoglobin Concent 31 g/dL (31-37) Red Cell Distribution Width 16.6 % (11.5-14.5) Platelet Count 176 x10^3/uL (140-400) Prothrombin Time 16.7 SEC (11.7-14.0) Prothromb Time International Ratio 1.4 (0.8-1.1) Sodium Level 142 mmol/L (136-145) Potassium Level 3.5 mmol/L (3.5-5.1) Chloride Level 103 mmol/L (98-107) Carbon Dioxide Level 24 mmol/L (21-32) Anion Gap 15 (6-14) Blood Urea Nitrogen 21 mg/dL (8-26) Creatinine 1.7 mg/dL (0.7-1.3) Estimated GFR (Cockcroft-Gault) 39.4 Glucose Level 110 mg/dL (70-99) Calcium Level 8.8 mg/dL (8.5-10.1) Micro RUN DATE: 05/19/18 PAGE 1 RUN TIME: 08 [facility] [address] [place] [address] Ge Barnett M.D., [employer] PATIENT: VICKI BRAUN ACCT: [id number] LOC: 1 [facility] U : [id number] AGE/SX: 78/M ROOM: 104 REG : 05/18/[address]: ARABELLA MARTINEZ MD : 1940 BED: 1 DIS : STATUS: ADM IN TLOC: SPEC #: [id number] ERI: 05/18/18-0736 STATUS: COMP REQ #: [id number] RECD: 05/18/18-[address]: BOB BERRIOS MD SOURCE: BLOOD ENTR: 05/18/18-[address] [facility] [address]: MARITZA JONAS [facility]: ORDERED: BCULT Procedure Result BLOOD CULTURE Final GRAM POSITIVE COCCI IN CLUSTERS 2 SETS DRAWN, 4 OF 4 POSITIVE CALLED TO NENITA BETTS RN IN ICU BY Miguel LEMONS 05/19/18,0882 SPECIMEN SENDING TO [facility] FOR FURTHER WORK UP Objective: Assessment: Fever GPC bacteremia (4 of 4 bottles) with sepsis, POA ID and FELICITA pending Severe PAD Infected necrotic ulcer left ankle 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, 1st amp site and heel Bioprosthetic valve Renal insufficiency/JIMMY Encephalopathy Coagulopathy, on chronic warfarin A- fib RVR Severe PAD s/p BLE stents and previous toe amputations Diabetes Type II h/o PSA ( R quinolones & I imipenem) h/o group B strep bacteremia, 2017 Plan: Plan of Care Continue Zosyn/Dapto off IV Vanc due to JIMMY wound culture pending Repeat BC 05/20 pending UC pending Monitor labs and renal function closely Local wound care and offloading Right BKA and left foot debridement tentatively planned for Monday May need ECHO pending ID organism Critically ill NESHA CATES MD May 21, 2018 08:06
[2018-05-21] MEDS: IPRATRPIUM/ALBUTEROL 0.5/2.5MG 3 ML NEBU. NEB SCH ×4 (08:21→20:09)
--- NOTE | 2018-05-21 08:22 | PDOC ---
PROGRESS NOTES Chief Complaint Chief Complaint Severe sepsis cellulitis w/ gangrenous toes A. 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 Today more alert. Some pain in entire right leg, marked weakness. S/p vitamin K x1, INR is down to 1.4 today Pt denies any chest pain - no palpitations. No nausea or vomiting or diarrhea. + dyspnea and weakness today Plan: To OR for likely BKA today Hold digoxin if ok with cardiology Cont empiric antibiotics - MRSA screen positive and GPC bacteremia, high risk MRSA, now on daptomycin and zosyn per ID consultation Vitals Vitals Vital Signs Date Time Temp Pulse Resp B/P (MAP) Pulse Ox O2 Delivery O2 Flow Rate FiO2 05/21/18 06:16 13 Nasal Cannula 1.0 05/21/18 05:46 115 108/56 (73) 100 05/21/18 04:28 97.2 97.2 Physical Exam Physical Exam GENERAL: Resting quietly HEENT: Pupils equally round, reactive. Normal conjunctivae. Oral cavity, pharynx pink, dry NECK: Supple. LUNGS: Clear to auscultation. HEART: S1 and S2, soft murmur. Irregular. ABDOMEN: Obese, soft and nontender with bowel sounds present. GENITOURINARY: Indwelling Crawley in place. EXTREMITIES: Trace edema in lower extremities bilaterally. He dry gangrene involving third through fifth right toes and a necrotic pressure wound right heel. He also has ulcer, left lateral malleolus with drainage and redness. Distal pulses difficult to palpate. SKIN: Warm without rash. No peripheral stigmata. Several tattoos. 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 and 2 gangrenous toes on the right, chronic hyperpigmentation bilateral shins and foot) Labs LABS Laboratory Tests Test 05/20/18 12:09 05/20/18 17:31 05/20/18 19:10 05/20/18 21:30 Glucose (Fingerstick) 123 mg/dL (70-99) 126 mg/dL (70-99) Prothrombin Time 18.1 SEC (11.7-14.0) Prothromb Time International Ratio 1.5 (0.8-1.1) Lactic Acid Level 0.7 mmol/L (0.4-2.0) Test 05/21/18 06:00 05/21/18 07:51 White Blood Count 11.1 x10^3/uL (4.0-11.0) Red Blood Count 3.87 x10^6/uL (4.30-5.70) Hemoglobin 10.2 g/dL (13.0-17.5) Hematocrit 33.0 % (39.0-53.0) Mean Corpuscular Volume 85 fL (79-100) Mean Corpuscular Hemoglobin 26 pg (25-35) Mean Corpuscular Hemoglobin Concent 31 g/dL (31-37) Red Cell Distribution Width 16.6 % (11.5-14.5) Platelet Count 176 x10^3/uL (140-400) Prothrombin Time 16.7 SEC (11.7-14.0) Prothromb Time International Ratio 1.4 (0.8-1.1) Sodium Level 142 mmol/L (136-145) Potassium Level 3.5 mmol/L (3.5-5.1) Chloride Level 103 mmol/L (98-107) Carbon Dioxide Level 24 mmol/L (21-32) Anion Gap 15 (6-14) Blood Urea Nitrogen 21 mg/dL (8-26) Creatinine 1.7 mg/dL (0.7-1.3) Estimated GFR (Cockcroft-Gault) 39.4 Glucose Level 110 mg/dL (70-99) Calcium Level 8.8 mg/dL (8.5-10.1) Glucose (Fingerstick) 107 mg/dL (70-99) Assessment and Plan Assessmemt and Plan Problems Medical Problems: (1) Fever Status: Acute (2) Gangrene of toe Status: Acute (3) Leukocytosis Status: Acute (4) Severe sepsis Status: Acute Comment Review of Relevant I have reviewed the following items navi (where applicable) has been applied. Labs Laboratory Tests Test 05/19/18 11:53 05/19/18 17:07 05/19/18 20:05 05/19/18 20:59 Glucose (Fingerstick) 98 mg/dL (70-99) 117 mg/dL (70-99) 137 mg/dL (70-99) Urine Collection Type Unknown Urine Color Yellow Urine Clarity Clear Urine pH 5.0 Urine Specific [place] 1.020 Urine Protein Negative mg/dL (NEG-TRACE) Urine Glucose (UA) Negative mg/dL (NEG) Urine Ketones (Stick) Negative mg/dL (NEG) Urine Blood Small (NEG) Urine Nitrite Negative (NEG) Urine Bilirubin Negative (NEG) Urine Urobilinogen Dipstick 1.0 mg/dL (0.2 mg/dL) Urine Leukocyte Esterase Moderate (NEG) Urine RBC 1-2 /HPF (0-2) Urine WBC 20-40 /HPF (0-4) Urine Amorphous Sediment Present /HPF Urine Bacteria Few /HPF (0-FEW) Urine Hyaline Casts Few /HPF Urine Mucus Mod /LPF Test 05/20/18 03:30 05/20/18 07:55 05/20/18 12:09 05/20/18 17:31 White Blood Count 11.3 x10^3/uL (4.0-11.0) Red Blood Count 3.42 x10^6/uL (4.30-5.70) Hemoglobin 9.0 g/dL (13.0-17.5) Hematocrit 28.8 % (39.0-53.0) Mean Corpuscular Volume 84 fL (79-100) Mean Corpuscular Hemoglobin 27 pg (25-35) Mean Corpuscular Hemoglobin Concent 31 g/dL (31-37) Red Cell Distribution Width 16.1 % (11.5-14.5) Platelet Count 158 x10^3/uL (140-400) Neutrophils (%) (Auto) 86 % (31-73) Lymphocytes (%) (Auto) 3 % (24-48) Monocytes (%) (Auto) 9 % (0-9) Eosinophils (%) (Auto) 1 % (0-3) Basophils (%) (Auto) 1 % (0-3) Neutrophils # (Auto) 9.7 x10^3uL (1.8-7.7) Lymphocytes # (Auto) 0.4 x10^3/uL (1.0-4.8) Monocytes # (Auto) 1.0 x10^3/uL (0.0-1.1) Eosinophils # (Auto) 0.1 x10^3/uL (0.0-0.7) Basophils # (Auto) 0.1 x10^3/uL (0.0-0.2) Prothrombin Time 25.4 SEC (11.7-14.0) Prothromb Time International Ratio 2.3 (0.8-1.1) Creatinine 1.9 mg/dL (0.7-1.3) Estimated GFR (Cockcroft-Gault) 34.6 Glucose (Fingerstick) 105 mg/dL (70-99) 123 mg/dL (70-99) 126 mg/dL (70-99) Test 05/20/18 19:10 05/20/18 21:30 05/21/18 06:00 05/21/18 07:51 Prothrombin Time 18.1 SEC (11.7-14.0) 16.7 SEC (11.7-14.0) Prothromb Time International Ratio 1.5 (0.8-1.1) 1.4 (0.8-1.1) Lactic Acid Level 0.7 mmol/L (0.4-2.0) White Blood Count 11.1 x10^3/uL (4.0-11.0) Red Blood Count 3.87 x10^6/uL (4.30-5.70) Hemoglobin 10.2 g/dL (13.0-17.5) Hematocrit 33.0 % (39.0-53.0) Mean Corpuscular Volume 85 fL (79-100) Mean Corpuscular Hemoglobin 26 pg (25-35) Mean Corpuscular Hemoglobin Concent 31 g/dL (31-37) Red Cell Distribution Width 16.6 % (11.5-14.5) Platelet Count 176 x10^3/uL (140-400) Sodium Level 142 mmol/L (136-145) Potassium Level 3.5 mmol/L (3.5-5.1) Chloride Level 103 mmol/L (98-107) Carbon Dioxide Level 24 mmol/L (21-32) Anion Gap 15 (6-14) Blood Urea Nitrogen 21 mg/dL (8-26) Creatinine 1.7 mg/dL (0.7-1.3) Estimated GFR (Cockcroft-Gault) 39.4 Glucose Level 110 mg/dL (70-99) Calcium Level 8.8 mg/dL (8.5-10.1) Glucose (Fingerstick) 107 mg/dL (70-99) Laboratory Tests Test 05/20/18 12:09 05/20/18 17:31 05/20/18 19:10 05/20/18 21:30 Glucose (Fingerstick) 123 mg/dL (70-99) 126 mg/dL (70-99) Prothrombin Time 18.1 SEC (11.7-14.0) Prothromb Time International Ratio 1.5 (0.8-1.1) Lactic Acid Level 0.7 mmol/L (0.4-2.0) Test 05/21/18 06:00 05/21/18 07:51 White Blood Count 11.1 x10^3/uL (4.0-11.0) Red Blood Count 3.87 x10^6/uL (4.30-5.70) Hemoglobin 10.2 g/dL (13.0-17.5) Hematocrit 33.0 % (39.0-53.0) Mean Corpuscular Volume 85 fL (79-100) Mean Corpuscular Hemoglobin 26 pg (25-35) Mean Corpuscular Hemoglobin Concent 31 g/dL (31-37) Red Cell Distribution Width 16.6 % (11.5-14.5) Platelet Count 176 x10^3/uL (140-400) Prothrombin Time 16.7 SEC (11.7-14.0) Prothromb Time International Ratio 1.4 (0.8-1.1) Sodium Level 142 mmol/L (136-145) Potassium Level 3.5 mmol/L (3.5-5.1) Chloride Level 103 mmol/L (98-107) Carbon Dioxide Level 24 mmol/L (21-32) Anion Gap 15 (6-14) Blood Urea Nitrogen 21 mg/dL (8-26) Creatinine 1.7 mg/dL (0.7-1.3) Estimated GFR (Cockcroft-Gault) 39.4 Glucose Level 110 mg/dL (70-99) Calcium Level 8.8 mg/dL (8.5-10.1) Glucose (Fingerstick) 107 mg/dL (70-99) Microbiology 05/20/18 Blood Culture - Preliminary, Resulted NO GROWTH AFTER 1 DAY Medications Current Medications Sodium Chloride 1,000 ml @ 2,190 mls/hr Q28M IV Last administered on at 14:36; Start 05/18/18 at 12:52; Stop 05/18/18 at 13:52; Status DC Piperacillin Sod/ Tazobactam Sod 4.5 gm/Sodium Chloride 100 ml @ 200 mls/hr 1X ONCE IV Last administered on 05/18/18at 14:34; Start 05/18/18 at 13:00; Stop 05/18/18 at 13:29; Status DC Vancomycin HCl (Vanco Per Pharmacy) 1 each 1X ONCE MC Last administered on 01/24at 13:00; Start 05/18/18 at 13:00; Stop 05/18/18 at 13:11; Status DC Vancomycin HCl 2 gm/Sodium Chloride 500 ml @ 250 mls/hr 1X ONCE IV Last administered on 05/18/18at 15:28; Start 05/18/18 at 13:15; Stop 05/18/18 at 15:14 ; Status DC Ondansetron HCl (Zofran) 4 mg PRN Q8HRS PRN IV NAUSEA/VOMITING; Start 05/18/18 at 14:45; Stop 05/18/18 at 15:28; Status DC Fentanyl Citrate (Fentanyl 2ml Vial) 50 mcg PRN Q1HR PRN IV PAIN; Start at 14:45; Stop 05/19/18 at 11:50; Status DC Sodium Chloride 1,000 ml @ 80 mls/hr [id number] IV ; Start 05/18/18 at 14:43; Stop 05/18/18 at 18:42; Status DC Acetaminophen (Tylenol) 650 mg 1X ONCE PO Last administered on 05/18/18at 15:29 ; Start 05/18/18 at 15:30; Stop 05/18/18 at 15:31; Status DC Ondansetron HCl (Zofran) 4 mg PRN Q6HRS PRN IV NAUSEA/VOMITING; Start 05/18/18 at 15:30 Diltiazem HCl (Cardizem Iv Push) 10 mg 1X ONCE IVP ; Start 05/18/18 at 15:30; Stop 05/18/18 at 15:31; Status DC Acetaminophen (Tylenol) 500 mg PRN Q6HRS PRN PO MILD PAIN / TEMP; Start at 15:30; Stop 05/18/18 at 16:14; Status DC Acetaminophen/ Codeine Phosphate (Tylenol #3) 1 tab PRN Q6HRS PRN PO MODERATE PAIN Last administered on 05/19/18at 10:12; Start 05/18/18 at 15:30 Morphine Sulfate (Morphine Sulfate) 2 mg PRN Q2HR PRN IV PAIN Last administered on 05/21/18at 05:43; Start 05/18/18 at 15:30 Oxycodone/ Acetaminophen (Percocet 5/325) 1 tab PRN Q4HRS PRN PO SEVERE PAIN Last administered on 05/20/18at 13:04; Start 05/18/18 at 15:30 Albuterol Sulfate (Ventolin Hfa) 2 puff PRN Q6HRS PRN IH SHORTNESS OF BREATH; Start 05/18/18 at 15:30; Status UNV Digoxin (Lanoxin) 125 mcg DAILY PO ; Start 05/19/18 at 09:00; Stop 05/19/18 at 09:00; Status DC Furosemide (Lasix) 40 mg DAILY PO ; Start 05/19/18 at 09:00 Gabapentin (Neurontin) 300 mg DAILY PO Last administered on 05/19/18at 10:15; Start 05/19/18 at 09:00 Lisinopril (Prinivil) 20 mg DAILY PO Last administered on 05/19/18at 10:14; Start 05/19/18 at 09:00 Metoprolol Tartrate (Lopressor) 50 mg BID PO Last administered on 05/19/18at 10: 13; Start 05/18/18 at 21:00 Oxycodone/ Acetaminophen (Percocet 10/325) 1 tab PRN Q6HRS PRN PO SEVERE PAIN ( 2ND Choice) Last administered on 4/13/19at 19:24; Start 05/18/18 at 15:30 Oxycodone/ Acetaminophen (Percocet 5/325) 1 tab PRN Q4HRS PRN PO PAIN; Start at 15:30; Status UNV Acetaminophen (Tylenol) 500 mg PRN Q6HRS PRN PO MILD PAIN / TEMP Last administered on 05/20/18 20:08; Start 05/18/18 at 16:15 Atorvastatin Calcium (Lipitor) 80 mg QHS PO Last administered on 05/20/18 20: 08; Start 05/18/18 at 21:00 Hydralazine HCl (Apresoline) 10 mg TID PO Last administered on 05/19/18 10:16 ; Start 05/18/18 at 16:00 Insulin Human Lispro (HumaLOG) 10 units DAILYWBKFT SQ ; Start 05/18/18 at 17:00 Levetiracetam (Keppra) 1,250 mg BID PO Last administered on 05/20/18 21:16; Start 05/18/18 at 21:00 Metformin HCl (Glucophage) 1,000 mg BIDWMEALS PO Last administered on 17:09; Start 05/18/18 at 17:00 Multivitamins (Thera M Plus) 1 tab DAILY PO Last administered on 05/19/18 10: 13; Start 05/19/18 at 09:00 Potassium Chloride (Klor-Con) 20 meq DAILYWBKFT PO ; Start 05/19/18 at 08:00 Risperidone (RisperDAL) 1 mg QHS PO Last administered on 05/20/18 20:08; Start 05/18/18 at 21:00 Non-Formulary Medication (Rosuvastatin Calcium (Crestor)) 40 mg DAILY PO ; Start 05/19/18 at 09:00; Status UNV Zonisamide (Zonegran) 400 mg DAILY PO Last administered on 05/19/18 10:22; Start 05/19/18 at 09:00 Albuterol/ Ipratropium (Duoneb) 3 ml Q4HRS W/A NEB Last administered on 19:51; Start 05/18/18 at 18:00 Insulin Human Lispro (HumaLOG) 0-9 UNITS TIDWMEALS SQ ; Start 05/18/18 at 17:00 Dextrose (Dextrose 50%-Water Syringe) 12.5 gm PRN Q15MIN PRN IV SEE COMMENTS; Start 05/18/18 at 15:30 Albuterol Sulfate (Ventolin Neb Soln) 2.5 mg PRN Q6HRS PRN NEB SHORTNESS OF BREATH; Start 05/18/18 at 15:45 Piperacillin Sod/ Tazobactam Sod 3.375 gm/Sodium Chloride 50 ml @ 100 mls/hr Q6HRS IV Last administered on 05/21/18at 05:44; Start 05/18/18 at 18:00 Potassium Chloride (Klor-Con) 40 meq 1X ONCE PO Last administered on at 10:14; Start 05/19/18 at 08:30; Stop 05/19/18 at 08:31; Status DC Heparin Sodium (Porcine) (Heparin Sodium) 5,000 unit Q8HRS SQ ; Start 05/19/18 at 14:00; Stop 05/19/18 at 14:00; Status DC Furosemide (Lasix) 40 mg 1X ONCE IVP Last administered on 05/19/18at 10:12; Start 05/19/18 at 08:45; Stop 05/19/18 at 08:46; Status DC Phytonadione (Vitamin K Ampule) 10 mg 1X ONCE SQ Last administered on at 10:16; Start 05/19/18 at 10:00; Stop 05/19/18 at 10:01; Status DC Vancomycin HCl (Vanco Per Pharmacy) 1 each PRN DAILY PRN MC SEE COMMENTS Last administered on 05/19/18at 10:32; Start 05/19/18 at 10:00; Stop 05/20/18 at 10:42 ; Status DC Phytonadione (Vitamin K Ampule) 10 mg 1X ONCE SQ ; Start 05/19/18 at 10:15; Stop 05/19/18 at 10:16; Status UNV Vancomycin HCl 1.75 gm/Sodium Chloride 500 ml @ 250 mls/hr Q24H IV Last administered on 05/19/18at 16:59; Start 05/19/18 at 16:00; Stop 05/20/18 at 10:42 ; Status DC Vancomycin HCl (Vancomycin Trough Level) 1 each 1X ONCE MC ; Start 05/20/18 at 16:30; Stop 05/20/18 at 16:30; Status DC Acetaminophen (Tylenol Supp) 650 mg PRN Q6HRS PRN MD MILD PAIN / TEMP Last administered on 05/20/18at 01:31; Start 05/20/18 at 01:15 Sodium Chloride 500 ml @ 333 mls/hr 1X ONCE IV Last administered on at 01:14; Start 05/20/18 at 01:15; Stop 05/20/18 at 02:45; Status DC Phytonadione 5 mg/ Dextrose 50.5 ml @ 101 mls/hr 1X ONCE IV Last administered on 05/20/18at 10:08; Start 05/20/18 at 10:30; Stop 05/20/18 at 10:59 ; Status DC Daptomycin 590 mg/ Sodium Chloride 50 ml @ 100 mls/hr Q24H IV Last administered on 05/20/18at 12:53; Start 05/20/18 at 12:00 Active Scripts Active Digoxin 125 Mcg Tablet 125 Mcg PO DAILY Furosemide 40 Mg Tablet 40 Mg PO DAILY Metoprolol Tartrate 50 Mg Tablet 50 Mg PO BID [Warfarin Sodium] 1 EACH Each 1 Each MC PRN DAILY PRN Lisinopril 20 Mg Tablet 20 Mg PO DAILY Duoneb 0.5-3(2.5) Mg/3 Ml (Albuterol/Ipratropium) 3 Ml Ampul.neb 3 Ml NEB Q4HRS W/A 30 Days Hydralazine Hcl 10 Mg Tablet 10 Mg PO TID Reported Zonisamide 100 Mg Capsule 400 Mg PO DAILY Percocet 5-325 Mg Tablet (Oxycodone/Acetaminophen) 1 Each Tablet 1 Tab PO PRN Q4HRS PRN Multivitamins (Multivitamin) 1 Each Tablet 1 Tab PO DAILY Levetiracetam 250 Mg Tablet 1,250 Mg PO BID Novolin N (Nph, Human Insulin Isophane) 100 Unit/1 Ml Vial Unknown Dose SQ Atorvastatin Calcium 80 Mg Tablet 1 Tab PO DAILY Acetaminophen 500 Mg Tablet 1 Tab PO PRN Q6HRS PRN Albuterol Sulfate Hfa Inhaler (Albuterol Sulfate) 8.5 Gm Hfa.aer.ad 2 Puff IH PRN Q6HRS PRN Aspirin Ec (Aspirin) 325 Mg Tablet.dr 81 Mg PO DAILY Crestor (Rosuvastatin Calcium) 40 Mg Tablet 40 Mg PO DAILY Warfarin Sodium 5 Mg Tablet 6 Mg PO DAILY Warfarin Sodium 2.5 Mg Tablet 2.5 Mg PO 3X/WEEK monday,monday, Gabapentin (Gabapentin) 300 Mg Capsule 300 Mg PO DAILY Risperidone 1 Mg Tablet 1 Mg PO HS Novolog (Insulin Aspart) 100 Unit/1 Ml Vial 10 Unit SQ DAILYAC Oxycodone-Acetaminophen 10-325 (Oxycodone Hcl/Acetaminophen) 1 Each Tablet 1 Each PO PRN Q6HRS Potassium 99 Mg Tablet 20 Meq PO DAILY Prednisone (Prednisone) 10 Mg Tablet 10 Mg PO DAILY Metformin Hcl 500 Mg Tablet 1,000 Mg PO BIDBFRMEAL Vitals/I & O Vital Sign - Last 24 Hours 05/20/18 05/20/18 05/20/18 05/20/18 09:00 10:00 11:00 12:00 Temp 100.4 100.4 Pulse 91 109 110 Resp 11 13 11 B/P (MAP) 114/51 (72) 107/61 (76) 100/41 (60) Pulse Ox 100 100 100 O2 Delivery Nasal Cannula Nasal Cannula Nasal Cannula Nasal Cannula O2 Flow Rate 2.0 2.0 2.0 2.0 05/20/18 05/20/18 05/20/18 05/20/18 12:00 12:13 13:00 13:04 Temp 100.8 98.6 100.8 98.6 Pulse 100 100 Resp 11 11 B/P (MAP) 92/48 (63) 102/56 (71) Pulse Ox 100 100 100 100 O2 Delivery Nasal Cannula Nasal Cannula Nasal Cannula Nasal Cannula O2 Flow Rate 2.0 2.0 2.0 2.0 05/20/18 05/20/18 05/20/18 05/20/18 14:00 14:04 15:00 15:37 Temp 98.4 98.4 Pulse 103 100 Resp 9 12 B/P (MAP) 108/68 (81) 100/84 (89) Pulse Ox 100 100 100 100 O2 Delivery Nasal Cannula Nasal Cannula Nasal Cannula Nasal Cannula O2 Flow Rate 2.0 2.0 2.0 2.0 05/20/18 05/20/18 05/20/18 05/20/18 16:00 16:00 17:00 18:00 Pulse 109 96 109 Resp 11 10 12 B/P (MAP) 93/45 (61) 94/33 (53) 101/46 (64) Pulse Ox 100 100 99 O2 Delivery Nasal Cannula Nasal Cannula Nasal Cannula Nasal Cannula O2 Flow Rate 2.0 2.0 2.0 2.0 05/20/18 05/20/18 05/20/18 05/20/18 19:30 19:51 19:52 20:09 Temp 100.8 100.8 Pulse 103 102 Resp 16 16 B/P (MAP) 120/68 (85) 136/89 (105) Pulse Ox 100 99 100 O2 Delivery Nasal Cannula Nasal Cannula Nasal Cannula Nasal Cannula O2 Flow Rate 1.0 2.0 1.0 1.0 05/20/18 05/20/18 05/20/18 05/21/18 21:19 22:14 23:07 00:12 Temp 100.8 101.4 100.8 101.4 Pulse 113 108 99 Resp 12 12 10 B/P (MAP) 94/52 (66) 96/29 (51) 90/54 (66) Pulse Ox 99 100 100 O2 Delivery Nasal Cannula Nasal Cannula Nasal Cannula Nasal Cannula O2 Flow Rate 1.0 1.0 1.0 1.0 05/21/18 05/21/18 05/21/18 05/21/18 00:14 01:18 02:02 03:31 Pulse 91 98 92 101 Resp 16 16 12 12 B/P (MAP) 110/56 (74) 120/46 (70) 114/57 (76) 134/59 (84) Pulse Ox 93 100 98 97 O2 Delivery Nasal Cannula Nasal Cannula Nasal Cannula Nasal Cannula O2 Flow Rate 1.0 1.0 1.0 1.0 05/21/18 05/21/18 05/21/18 05/21/18 04:27 04:28 05:17 05:43 Temp 97.2 97.2 Pulse 113 114 Resp 13 14 20 B/P (MAP) 117/62 (80) 101/52 (68) Pulse Ox 100 100 O2 Delivery Nasal Cannula Nasal Cannula Nasal Cannula Nasal Cannula O2 Flow Rate 1.0 1.0 1.0 1.0 05/21/18 05/21/18 05:46 06:16 Pulse 115 Resp 17 13 B/P (MAP) 108/56 (73) Pulse Ox 100 O2 Delivery Nasal Cannula Nasal Cannula O2 Flow Rate 1.0 1.0 Intake and Output 05/20/18 05/20/18 05/21/18 14:59 22:59 06:59 Intake Total 540 ml 590 ml 100 ml Output Total 530 ml 380 ml 335 ml Balance 10 ml 210 ml -235 ml NEHAL NELSON MD May 21, 2018 08:22
[2018-05-21] MEDS: METOPROLOL TART IMMED RELEASE 50 MG TABLET. PO SCH ×2 (09:00→21:00)
[2018-05-21] MEDS: hydrALAZINE 10 MG TABLET PO SCH ×3 (09:00→21:00)
[2018-05-21] MEDS: LISINOPRIL 20 MG TABLET PO SCH (09:00)
--- NOTE | 2018-05-21 09:10 | NUR ---
IP: Pt is mrsa screen + requiring contact precautions.
[2018-05-21] MEDS: POTASSIUM CHLORIDE 20 MEQ TABLET.ER. PO SCH (09:19)
[2018-05-21] MEDS: ZONISAMIDE 100 MG CAPSULE. PO SCH (09:19)
[2018-05-21] MEDS: levETIRAcetam 250 MG TABLET PO SCH ×2 (09:19→20:56)
[2018-05-21] MEDS: metFORMIN 500 MG TABLET PO SCH ×2 (09:19→18:09)
[2018-05-21] MEDS: MULTIVITAMIN with MINERAL TABLET. PO SCH (09:19)
[2018-05-21] MEDS: GABAPENTIN 300 MG CAPSULE. PO SCH (09:20)
[2018-05-21] MEDS: FUROSEMIDE 40 MG TABLET. PO SCH (09:20)
[2018-05-21] MEDS ORDERED: IV RINGERS,LACTATED 1000ML 1,000 ML IV SCH (09:39)
[2018-05-21] MEDS ORDERED: HYDROmorphone 2 MG/ML VIAL IV PRN (09:45)
[2018-05-21] MEDS ORDERED: ONDANSETRON PF 4 MG/2 ML VIAL. IV PRN (09:45)
[2018-05-21] MEDS ORDERED: LIDOCAINE 1% PF 2 ML VIAL. ID PRN (09:45)
[2018-05-21] MEDS ORDERED: MORPHINE SULFATE 2 MG/ML VIAL. IV PRN (09:45)
[2018-05-21] MEDS ORDERED: fentaNYL PF VIAL 100 MCG/2 ML VIAL IV PRN ×2 (09:45)
[2018-05-21] MEDS ORDERED: PROCHLORPERAZINE 10 MG/2 ML VIAL. IV PRN (09:45)
--- NOTE | 2018-05-21 09:56 | EKG ---
[facility] [address] [place] [address] Test Date: 2018-05-21 Test Time: 07:52:40 Pat Name: VICKI BRAUN Department: Room: 104 1 Gender: Registered Clinical Dietitian: : 1940 Requested By: BOB BERRIOS Order Number: [id number] Reading MD: Rickie Barr Measurements Intervals [place] Rate: P: ND: QRS: QRSD: T: QT: QTc: Interpretive Statements Compared to ECG 05/10/2016 19:39:03 Sinus rhythm no longer present Left bundle-branch block no longer present Electronically Signed On 05-28-2018 12:58:28 CDT by Rickie Barr
--- NOTE | 2018-05-21 10:54 | PDOC ---
Provider Note Provider Note Spoke to primary service, anesthesia and patient. Due to 4/4 cultures positive, will rule out seeding of the bioprosthetic valve when he is intubated for his amputation. Thanks ADDIS TOM MD May 21, 2018 10:54
[2018-05-21] MEDS ORDERED: LIDOCAINE 1% 20 ML VIAL. ONE (11:42)
[2018-05-21] MEDS: DAPTOmycin (GENERIC) IVPB 590 MG in IV NORMAL SALINE 50ML 50 ML IV SCH (11:49)
[2018-05-21] MEDS ORDERED: DEXAMETHASONE SOD PHOS 20 MG/5 ML VIAL. ONE (12:27)
[2018-05-21] MEDS ORDERED: ONDANSETRON PF 4 MG/2 ML VIAL. ONE (12:27)
[2018-05-21] MEDS ORDERED: LIDOCAINE 2% PF 5 ML VIAL. ONE (12:27)
[2018-05-21] MEDS ORDERED: FAMOTIDINE 20 MG/2 ML VIAL ONE (12:27)
[2018-05-21] MEDS ORDERED: PROPOFOL 20 ML IV ONE (12:27)
[2018-05-21] MEDS ORDERED: fentaNYL PF VIAL 100 MCG/2 ML VIAL ONE (12:27)
[2018-05-21] MEDS ORDERED: LIDOCAINE 2% JELLY 6ML IN APPLICATOR. MM ONE (12:30)
[2018-05-21] MEDS ORDERED: BACITRACIN 50,000 UNIT in IV NORMAL SALINE 500ML BAG 500 ML IRR ONE (12:40)
[2018-05-21] MEDS ORDERED: ESMOLOL 100 MG/10 ML VIAL. IVP ONE ×2 (13:01→14:22)
[2018-05-21] MEDS ORDERED: NEOMY/BACITR/POLYMYXIN OINT PACKET. TP ONE (13:38)
--- NOTE | 2018-05-21 14:22 | CARD ---
MR#: [id number] Date of Study: 05/21/2018 Ordering Physician: ADDIS VERA, Referring Physician: ARABELLA MARTINEZ Tech: Jocelyn Washington APPROVED REPORT EXAM: Two-dimensional and M-mode echocardiogram with Doppler and color Doppler. INDICATION Atrial Fibrillation Sepsis Surgery/Intervention Status/Post Aortic Valve Replacement: Bioprosthetic Type: Bovine RISK FACTORS Hypertension Diabetes Reason For Test : Rule out endocarditis. PROCEDURE After obtaining informed consent, patient underwent transesophageal echo in the OR Type of Sedation : General Anesthesia Transesophageal probe was inserted and advanced into esophagus by Geoffrey Vera MD. The CRYSTAL was performed without complications. Throughout the procedure, the blood pressure, pulse oximetry, cardiac rhythm, and rate were monitored . LEFT VENTRICLE The left ventricle is normal size. There is mild concentric left ventricular hypertrophy. The Ejectio n Fraction is 35-40%. Global hypokinesis with modereate to severe LV dysfunction. RIGHT VENTRICLE The right ventricle is mildly dilated. The right ventricle is mildly hypertrophied. RV Systolic funct ion is borderline reduced. ATRIA The left atrium is mildly dilated. The right atrium is mildly dilated. The interatrial septum is inta ct with no evidence for an atrial septal defect or patent foramen ovale as noted on 2-D or Doppler im aging. There is no thrombus noted in the left atrial appendage. AORTIC VALVE Doppler and Color Flow revealed trace aortic regurgitation. There is no significant aortic valvular s tenosis. There is no aortic valvular vegetation. 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 Bi oprosthesis leaflets are thin and move normally. MITRAL VALVE The mitral valve is normal in structure and function. There is no evidence of mitral valve prolapse. There is no mitral valve stenosis. Doppler and Color-flow revealed trace mitral regurgitation. TRICUSPID VALVE The tricuspid valve is normal in structure and function. Doppler and Color Flow revealed trace tricus pid regurgitation. There is no tricuspid valve stenosis. PULMONIC VALVE The pulmonic valve is not well visualized. Doppler and Color Flow revealed no pulmonic valvular regur gitation. There is no pulmonic valvular stenosis. GREAT VESSELS The aortic root is normal in size. The IVC is normal in size and collapses >50% with inspiration. Critical Notification Critical Value: No <Conclusion> The Ejection Fraction is 35-40%. Global hypokinesis with modereate to severe LV dysfunction. There is no thrombus noted in the left atrial appendage. No significant aortic valve mass/thrombus or vegetation noted. Other valves are also negative for any vegetation/thrombus/mass. Signed by : Addis Vera, Electronically Approved : 05/21/2018 14:21:49
[2018-05-21] MEDS ORDERED: SEVOFLURANE > 120 MINUTES. IH ONE (14:40)
--- NOTE | 2018-05-21 14:56 | PDOC4 ---
OPERATIVE NOTE Date: Date: May 21, 2018 Pre-Op Diagnosis: Gangrene right foot Nonambulatory Open wound left ankle Post-Op Diagnosis: Same as above Procedure Performed: #1 Right below-knee amputation #2 debridement left ankle wound less than 20 cm skin simultaneous tissue-- incisional Surgeon: Marcia Nolen M.D. Anesthesia Type: Gen. Blood Loss: 150 mL Specimans Obtained: Right leg below the knee Findings: Healthy muscle and tissue at the amputation site with good skin bleeding Left ankle wound sharply debrided with good bleeding at all skin edges wound edges Complications: None Operative Note: Patient was escorted to the operating room and placed supine on the table. After placement appropriate lines and monitoring devices anesthesia was induced without difficulty. The right leg from the thigh down in the left leg from just above the ankle down were prepped and draped in usual sterile fashion. Appropriate timeout was performed. Attention was directed to the right leg or marking pen was used to navi on the skin the area for incision in the standard posterior flap below-knee amputation fashion. A #10 scalpel was used to make an incision in the skin and this is carried down with Bovie cautery through the underlying fascia. This was done along the entire marked line with good hemostasis maintained throughout. Laterally the anterior compartment was removed. The anterior tibial vascular bundle was identified ligated with ties and divided between these. The muscle was divided. The posterior compartments were entered and the bone was fully . A lap pad was passed behind the bone for both the tibia and fibula and then with her divided with the saw. The underlying tissue was divided to leave a healthy posterior muscle flap and the posterior vessels were identified ligated and divided between ties. With the bone divided and the muscle divided the leg was passed off the field as specimen. There was adequate posterior muscle for a good flap. This was all irrigated and cleaned neck for hemostasis was ensured. The posterior flap was brought forward and the fascia was reapproximated with a series of buried interrupted [id number] Vicryl sutures. The deep layer was closed over a 10 MG drain which was brought through the skin and the lateral leg through separate small stab incision. The subdermal layer was then closed with a running 3-0 Vicryl and the skin was closed with matti. The leg was cleaned and dried. The MG drain was sewn in place with a silk stitch and then a sterile dressing was placed over the stump. Attention was directed to the left ankle where the area with open wound over the lateral malleolus was identified. Scissors and a curet were used to remove all the tissue until healthy bleeding tissue was noted at all areas of the wound bed. Excellent hemostasis was ensured and the wound was dressed with triple robotic ointment and a nonadherent dressing and gauze. Patient was awakened in the operating room and escorted recovery in stable condition. No complications, patient told procedure well throughout, at the end of the case all sponge, needle, and instrument counts reported to me as correct 2. MARCIA NOLEN MD May 21, 2018 14:56
[2018-05-21] MEDS: IV NORMAL SALINE 1000ML BAG 1,000 ML IV SCH (14:57)
[2018-05-21] MEDS ORDERED: NALOXONE 0.4 MG/ML VIAL. IV PRN (15:00)
[2018-05-21] MEDS ORDERED: MORPHINE SULFATE/PF 30 ML IV PRN (15:00)
--- NOTE | 2018-05-21 15:06 | NUR ---
Wound Care Wound care consult for multiple wounds. Pt off unit at time of WC team arrival. Will follow up tomorrow.
[2018-05-21] MEDS ORDERED: LABETALOL 20 MG/4 ML DISP.SYRIN. IVP PRN ×2 (15:30)
--- NOTE | 2018-05-21 15:54 | NUR ---
SS following for discharge planning. SS reviewed pt chart. Pt is from home with spouse and is currently requiring oxygen. No discharge needs noted at this time. SS will continue to follow for discharge planning.
--- NOTE | 2018-05-21 16:20 | NUR ---
PATIENT RETURNED TO ROOM 104 FROM SURGERY PER BED, PATIENT GROGGY BUT VERBALLY RESPONSIVE, COMFORT MEASURES GIVEN, 02 ON AT 2 LITERS PER N/C PER PACU NURSE, PATIENTS' VITAL SIGNS ARE FOLLOWS; 137/54,95,98.9(AX), 19, 96% ON 2L PER N/C., PATIENT PRESENTS WITH MG DRAIN TO RIGHT STUMP AREA (S/P RIGHT BELOW THE KNEE AMPUTATION), DRESSING WITH FLUFFS, KERLEX, SUNSHINE WRAP AND COBAN. PATIENTS LEFT FOOT DRESSING IS FOLLOWS; NEOSPORIN, KERKEX GAUZE AND TAPE, PER REPORT PATIENTS BLOOD SUGAR AT 1500 WAS 131., POST OP VITALS STARTED AT THIS TIME.
--- NOTE | 2018-05-21 19:00 | NUR ---
Patient awake, [place] the [place]", oriented to self and birthday. Believes it's "1977". Denies pain. Surgical dressings to right BKA D/I. MG present w/o drainage. Surgical dressing to left foot D/I.
[2018-05-21] MEDS: risperiDONE 1 MG TABLET. PO SCH (20:57)
[2018-05-21] MEDS: ATORVASTATIN CALCIUM 40 MG TABLET. PO SCH (20:57)
--- NOTE | 2018-05-21 21:00 | NUR ---
Patient lethargic, obtunded, not responsive to verbal stimuli. Responded to sternal rub by briefly opening eyes. Pupils 2mm and sluggish. Rachel, RN, charge nurse notified of neuro change. Reji Butts notified (had vascular surgery today.) Dr. Baez notified and orders rec'd.
--- NOTE | 2018-05-21 21:30 | NUR ---
Remains obtunded. VSS. [facility] WNL.
[2018-05-21] MEDS ORDERED: INSULIN GLARGINE 300 UNITS/3 ML INSULN.PEN. SQ ONE (22:00)
--- NOTE | 2018-05-21 22:00 | NUR ---
Patient calling out, "I gotta shit!" Cleaned up. Oriented to self only. Awake and VIERA.
[2018-05-22] VITALS (23 sets, daily range): BP systolic 66–201; BP diastolic 37–155
[2018-05-22 01:41] LABS: BASE EXCESS ABG -6 mmol/L (-3-3); FIO2 ABG 21; HCO3 ABG 19 mmol/L (21-28); PCO2 ABG 32 mmHg (35-46); PO2 ABG 78 mmHg (65-108); SAT O2 ABG 95 % (92-99)
[2018-05-22] MEDS: PIPERACILLIN/TAZOBACTAM 3.375 GM in IV NORMAL SALINE 50ML 50 ML IV SCH ×6 (05:53→23:50)
--- NOTE | 2018-05-22 07:45 | EKG ---
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
--- NOTE | 2018-05-22 07:53 | PDOC ---
Infectious Disease Note Subjective: Subjective pt underwent surgery yesterday says is doing ok pain is under control no fevers Vital Signs: Vital Signs Vital Signs Date Time Temp Pulse Resp B/P (MAP) Pulse Ox O2 Delivery O2 Flow Rate FiO2 05/22/18 06:00 102 23 66/57 (60) 97 Nasal Cannula 2.0 05/22/18 03:00 98.6 98.6 Physical Exam: PHYSICAL EXAM GENERAL: Resting quietly HEENT: Pupils equally round, reactive. Normal conjunctivae. Oral cavity, pharynx pink, dry NECK: Supple. LUNGS: Clear to auscultation. HEART: S1 and S2, soft murmur. Irregular. ABDOMEN: Obese, soft and nontender with bowel sounds present. GENITOURINARY: Indwelling Crawley in place. EXTREMITIES: Trace edema in lower extremities bilaterally. Rt BKA dressing and drain in place ,intact lt foot dressing intact, dry SKIN: Warm without rash. No peripheral stigmata. Several tattoos. NEUROLOGIC: Arouses to voice, Peripheral IV Medications: Inpatient Meds: Current Medications Medications (Trade) Dose Ordered Sig/Ana Start Time Stop Time Status Last Admin Dose Admin Acetaminophen (Tylenol Supp) 650 mg PRN Q6HRS PRN 05/20/18 01:15 05/20/18 01:31 650 MG Acetaminophen (Tylenol) 500 mg PRN Q6HRS PRN 05/18/18 16:15 05/20/18 20:08 500 MG Acetaminophen/ Codeine Phosphate (Tylenol #3) 1 tab PRN Q6HRS PRN 05/18/18 15:30 05/19/18 10:12 1 TAB Albuterol Sulfate (Ventolin Hfa) 2 puff PRN Q6HRS PRN 05/18/18 15:30 UNV Albuterol Sulfate (Ventolin Neb Soln) 2.5 mg PRN Q6HRS PRN 05/18/18 15:45 Albuterol/ Ipratropium (Duoneb) 3 ml Q4HRS W/A 05/18/18 18:00 05/21/18 20:09 3 ML Atorvastatin Calcium (Lipitor) 80 mg QHS 05/18/18 21:00 05/21/18 20:57 80 MG Bacitracin 46884 unit/Sodium Chloride 500 ml @ 500 mls/hr 1X ONCE 05/21/18 12:40 4/15/19 13:39 DC Cefazolin Sodium 1 gm/Sodium Chloride 500 ml @ 500 mls/hr 1X ONCE 05/21/18 12:40 05/21/18 13:39 DC Daptomycin 590 mg/ Sodium Chloride 50 ml @ 100 mls/hr Q24H 05/20/18 12:00 05/21/18 11:49 100 MLS/HR Dexamethasone Sodium Phosphate (Decadron) 20 mg STK-MED ONCE 05/21/18 12:27 05/21/18 12:28 DC Dextrose (Dextrose 50%-Water Syringe) 12.5 gm PRN Q15MIN PRN 05/18/18 15:30 Digoxin (Lanoxin) 125 mcg DAILY 05/19/18 09:00 05/19/18 09:00 DC Diltiazem HCl (Cardizem Iv Push) 10 mg 1X ONCE 05/18/18 15:30 05/18/18 15:31 DC Esmolol HCl (Brevibloc) 100 mg STK-MED ONCE 05/21/18 14:22 05/21/18 14:23 DC Famotidine (Pepcid Vial) 20 mg STK-MED ONCE 05/21/18 12:27 05/21/18 12:28 DC Fentanyl Citrate (Fentanyl 2ml Vial) 100 mcg STK-MED ONCE 05/21/18 12:27 05/21/18 12:28 DC Furosemide (Lasix) 40 mg 1X ONCE 05/19/18 08:45 05/19/18 08:46 DC 05/19/18 10:12 40 MG Gabapentin (Neurontin) 300 mg DAILY 05/19/18 09:00 05/21/18 09:20 300 MG Heparin Sodium (Porcine) (Heparin Sodium) 5,000 unit Q8HRS 05/19/18 14:00 05/19/18 14:00 DC Hydralazine HCl (Apresoline) 10 mg TID 05/18/18 16:00 05/19/18 10:16 10 MG Hydromorphone HCl (Dilaudid) 0.5 mg PRN Q10MIN PRN 05/21/18 09:45 05/22/18 09:44 Insulin Glargine (Lantus) 3 units 1X ONCE 05/21/18 22:00 05/22/18 01:31 DC 05/21/18 22:00 3 UNITS Insulin Human Lispro (HumaLOG) 0-9 UNITS TIDWMEALS 05/18/18 17:00 Labetalol HCl (Normodyne Iv Push) 5 mg 1X PACU PRN 05/21/18 15:30 05/21/18 15:30 5 MG Levetiracetam (Keppra) 1,250 mg BID 05/18/18 21:00 05/21/18 20:56 1,250 MG Lidocaine HCl 20 ml STK-MED ONCE 05/21/18 11:42 05/21/18 12:42 DC Lidocaine HCl (Glydo (Lidocaine) Jelly) 1 vianney 1X ONCE 05/21/18 12:30 05/21/18 12:31 DC Lidocaine HCl (Lidocaine Pf 2% Vial) 5 ml STK-MED ONCE 05/21/18 12:27 05/21/18 12:28 DC Lidocaine HCl (Xylocaine-Mpf 1% 2ml Vial) 2 ml 1X PRN PRN 05/21/18 09:45 05/22/18 09:44 Lisinopril (Prinivil) 20 mg DAILY 05/19/18 09:00 05/19/18 10:14 20 MG Metformin HCl (Glucophage) 1,000 mg BIDWMEALS 05/18/18 17:00 05/21/18 18:09 1,000 MG Metoprolol Tartrate (Lopressor) 50 mg BID 05/18/18 21:00 05/19/18 10:13 50 MG Morphine Sulfate 30 ml @ 0 mls/hr CONT PRN PRN 05/21/18 15:00 Morphine Sulfate (Morphine Sulfate) 1 mg PRN Q10MIN PRN 05/21/18 09:45 05/22/18 09:44 Multivitamins (Thera M Plus) 1 tab DAILY 05/19/18 09:00 05/21/18 09:19 1 TAB Naloxone HCl (Narcan) 0.4 mg PRN Q2MIN PRN 05/21/18 15:00 Neomycin/ Polymyxin/ Bacitracin (Triple Antibiotic Ointment) 1 pkt STK-MED ONCE 05/21/18 13:38 05/21/18 14:38 DC 05/21/18 14:41 1 PKT Non-Formulary Medication (Rosuvastatin Calcium (Crestor)) 40 mg DAILY 05/19/18 09:00 UNV Ondansetron HCl (Zofran) 4 mg STK-MED ONCE 05/21/18 12:27 05/21/18 12:28 DC Oxycodone/ Acetaminophen (Percocet 10/325) 1 tab PRN Q6HRS PRN 05/18/18 15:30 05/19/18 19:24 1 TAB Oxycodone/ Acetaminophen (Percocet 5/325) 1 tab PRN Q4HRS PRN 05/18/18 15:30 UNV Phytonadione (Vitamin K Ampule) 10 mg 1X ONCE 05/19/18 10:15 05/19/18 10:16 UNV Phytonadione 5 mg/ Dextrose 50.5 ml @ 101 mls/hr 1X ONCE 05/20/18 10:30 05/20/18 10:59 DC 05/20/18 10:08 101 MLS/HR Piperacillin Sod/ Tazobactam Sod 3.375 gm/Sodium Chloride 50 ml @ 100 mls/hr Q6HRS 05/18/18 18:00 05/22/18 05:53 100 MLS/HR Piperacillin Sod/ Tazobactam Sod 4.5 gm/Sodium Chloride 100 ml @ 200 mls/hr 1X ONCE 05/18/18 13:00 05/18/18 13:29 DC 05/18/18 14:34 200 MLS/HR Potassium Chloride (Klor-Con) 40 meq 1X ONCE 05/19/18 08:30 05/19/18 08:31 DC 05/19/18 10:14 40 MEQ Prochlorperazine Edisylate (Compazine) 5 mg PACU PRN PRN 05/21/18 09:45 05/22/18 09:44 Propofol 20 ml @ As Directed STK-MED ONCE 05/21/18 12:27 05/21/18 12:28 DC Ringer's Solution 1,000 ml @ 30 mls/hr Q24H 05/21/18 09:39 05/22/18 00:37 DC Risperidone (RisperDAL) 1 mg QHS 05/18/18 21:00 05/21/18 20:57 1 MG Sevoflurane (Ultane) 90 ml STK-MED ONCE 05/21/18 14:40 4/15/19 14:41 DC Sodium Chloride 1,000 ml @ 25 mls/hr Q24H 05/21/18 14:57 Vancomycin HCl (Vanco Per Pharmacy) 1 each PRN DAILY PRN 05/19/18 10:00 05/20/18 10:42 DC 05/19/18 10:32 1 EACH Vancomycin HCl (Vancomycin Trough Level) 1 each 1X ONCE 05/20/18 16:30 05/20/18 16:30 DC Vancomycin HCl 1.75 gm/Sodium Chloride 500 ml @ 250 mls/hr Q24H 05/19/18 16:00 05/20/18 10:42 DC 05/19/18 16:59 250 MLS/HR Vancomycin HCl 2 gm/Sodium Chloride 500 ml @ 250 mls/hr 1X ONCE 05/18/18 13:15 05/18/18 15:14 DC 05/18/18 15:28 250 MLS/HR Zonisamide (Zonegran) 400 mg DAILY 05/19/18 09:00 05/21/18 09:19 400 MG Labs: Lab Laboratory Tests Test 05/21/18 12:04 05/21/18 15:00 05/21/18 17:08 05/21/18 20:46 Glucose (Fingerstick) 110 mg/dL (70-99) 131 mg/dL (70-99) 142 mg/dL (70-99) 212 mg/dL (70-99) Test 05/21/18 21:21 05/22/18 05:30 O2 Saturation 95 % (92-99) Arterial Blood pH 7.38 (7.35-7.45) Arterial Blood pCO2 at Patient Temp 32 mmHg (35-46) Arterial Blood pO2 at Patient Temp 78 mmHg (65-108) Arterial Blood HCO3 19 mmol/L (21-28) Arterial Blood Base Excess -6 mmol/L (-3-3) FiO2 21 Creatinine 1.5 mg/dL (0.7-1.3) Estimated GFR (Cockcroft-Gault) 45.5 Micro RUN DATE: 05/21/18 PAGE 1 RUN TIME: 181 [facility] [address] [place] [address] Ge Barnett M.D., Associate Of Science In Nursing PATIENT: VICKI BRAUN ACCT: [id number] LOC: 1 [facility] U : [id number] AGE/SX: 78/M ROOM: 104 REG : 05/18/[address]: ARABELAL MARTINEZ MD : 1940 BED: 1 DIS : STATUS: ADM IN TLOC: SPEC #: [id number] ERI: 05/18/18 STATUS: RES REQ #: [id number] RECD: 05/18/[address] [facility] [address]: BOB BERRIOS MD SOURCE: BLOOD ENTR: 05/19/18 [facility] DR: MARITZA JONAS [facility]: ORDERED: BLD CULT - LC Procedure Result BLOOD CULTURE LC Preliminary Preliminary report BLD CULT RESULT 1 Preliminary Staphylococcus aureus Performed at: [facility] [address], [place], [place] [id number] Wing Scorer: LÁZARO Chong MD, Phone: [phone] RUN DATE: 05/21/18 PAGE 1 RUN TIME: 151 [facility] [address] [place] [address] Ge Barnett M.D., Associate Of Science In Nursing PATIENT: VICKI BRAUN ACCT: [id number] LOC: 1 [facility] U : [id number] AGE/SX: 78/M ROOM: 104 REG : 05/18/[address]: ARABELLA MARTINEZ MD : 1940 BED: 1 DIS : STATUS: ADM IN TLOC: SPEC #: [id number] ERI: 05/19/18-1099 STATUS: RES REQ #: [id number] RECD: 05/19/[address] [facility] [address]: GIO GASPAR APRN SOURCE: ANKLE ENTR: 05/19/18 [facility] DR: DAYANA CATES MD [facility]: RODRIGUEZ RAO MD, VENKAT R MD TERMULO, CHERRIE Y MD ORDERED: ANAER/AEROB/GS Procedure Result ANAEROBIC-AEROBIC CULTURE PENDING ANAEROBIC RES 1 PENDING AEROBIC CULT PENDING AEROBIC RES 1 PENDING GRAM STAIN Final Final report GRAM STAIN RES 1 Final Comment Rare white blood cells. GRAM STAIN RES 2 Final Comment Few gram negative rods. Performed at: - [address], [place], [place] [id number] Wing Scorer: LÁZARO Chong MD, Phone: [phone] RUN DATE: 05/19/18 PAGE 1 RUN TIME: 0842 [facility] [address] [place] [address] Ge Barnett M.D., Associate Of Science In Nursing PATIENT: VICKI BRAUN ACCT: [id number] LOC: 1 [facility] U : [id number] AGE/SX: 78/M ROOM: 104 REG : 05/18/[address]: ARABELLA MARTINEZ MD : 1940 BED: 1 DIS : STATUS: ADM IN TLOC: SPEC #: [id number] ERI: 05/18/18 STATUS: COMP REQ #: [id number] RECD: 05/18/18-[address] [facility] [address]: BOB BERRIOS MD SOURCE: BLOOD ENTR: 05/18/18-1301 [facility] DR: MARITZA JONAS [facility]: ORDERED: BCULT Procedure Result BLOOD CULTURE Final GRAM POSITIVE COCCI IN CLUSTERS 2 SETS DRAWN, 4 OF 4 POSITIVE CALLED TO NENITA BETTS RN IN ICU BY Miguel LEMONS 05/19/18,0835 SPECIMEN SENDING TO LAB [facility] FOR FURTHER WORK UP RUN DATE: 05/21/18 PAGE 1 RUN TIME: 1810 [facility] [address] [place] [address] Ge Barnett M.D., Associate Of Science In Nursing PATIENT: VICKI BRAUN ACCT: [id number] LOC: 1 [facility] U : [id number] AGE/SX: 78/M ROOM: 104 REG : 05/18/[address]: ARABELLA MARTINEZ MD : 1940 BED: 1 DIS : STATUS: ADM IN TLOC: SPEC #: [id number] ERI: 05/18/18 STATUS: RES REQ #: [id number] RECD: 05/18/[address] [facility] [address]: BOB BERRIOS MD SOURCE: BLOOD ENTR: 05/19/18 [facility] DR: MARITZA JONAS [facility]: ORDERED: BLD CULT - LC Procedure Result BLOOD CULTURE LC Preliminary Preliminary report BLD CULT RESULT 1 Preliminary Staphylococcus aureus Performed at: [facility] [address], [place], [place] [id number] Wing Scorer: LÁZARO Chong MD, Phone: [phone] Objective: Assessment: Fever resolved Staph aureus bacteremia (4 of 4 bottles) with sepsis, POA source Foot infection CRYSTAL done no vegetations 05/21 Severe PAD Infected necrotic ulcer left ankle s/p I and D 05/21 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 There is no significant aortic valvular stenosis. There is no aortic valvular vegetation. 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 Bioprosthesis leaflets are thin and move normally. Renal insufficiency/JIMMY Encephalopathy Coagulopathy, on chronic warfarin A- fib RVR Severe PAD s/p BLE stents and previous toe amputations Diabetes Type II h/o PSA ( R quinolones & I imipenem) h/o group B strep bacteremia, 2016 Plan: Plan of Care Continue Zosyn/Dapto off IV Vanc due to JIMMY wound culture GNR ID pending Repeat BC 05/20 pending UC pending Monitor labs and renal function closely Local wound care and offloading Critically ill D/W NESHA WONG MD May 22, 2018 07:53
--- NOTE | 2018-05-22 08:15 | PDOC ---
PROGRESS NOTES Chief Complaint Chief Complaint Severe sepsis cellulitis w/ gangrenous toes A. fib RVR, acute diastolic CHF Supra therapeutic - corrected vasomotor nephropathy Hypokalemia Leukocytosis 20, fever temperature 102 Diabetes type 2 on insulin History PAD-known to vascular surgery Bioprosthetic heart valve History of Present Illness History of Present Illness Admitted for necrotic right toes, plan vasc surg intervention 05/21: Febrile to 101.4F yesterday evening, MRSA screen positive, GPC bacteremia. 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 CRYSTAL done concurrently showing EF 35-40%, no valvular vegetations noted. Overnight BP was elevated. Today more alert. Some pain in entire right leg, marked weakness. Pt denies any chest pain - no palpitations. No nausea or vomiting or diarrhea. + dyspnea and weakness today Staph on blood cultures. Plan: Cont empiric antibiotics - MRSA screen positive and GPC bacteremia, high risk MRSA, now on daptomycin and zosyn per ID consultation F/u cultures Blood glucose control Pain control HR control Vitals Vitals Vital Signs Date Time Temp Pulse Resp B/P (MAP) Pulse Ox O2 Delivery O2 Flow Rate FiO2 05/22/18 06:00 102 23 66/57 (60) 97 Nasal Cannula 2.0 05/22/18 03:00 98.6 98.6 Physical Exam Physical Exam GENERAL: Resting quietly HEENT: Pupils equally round, reactive. Normal conjunctivae. Oral cavity, pharynx pink, dry NECK: Supple. LUNGS: Clear to auscultation. HEART: S1 and S2, soft murmur. Irregular. ABDOMEN: Obese, soft and nontender with bowel sounds present. GENITOURINARY: Indwelling Crawley in place. EXTREMITIES: Trace edema in lower extremities bilaterally. He dry gangrene involving third through fifth right toes and a necrotic pressure wound right heel. He also has ulcer, left lateral malleolus with drainage and redness. Distal pulses difficult to palpate. SKIN: Warm without rash. No peripheral stigmata. Several tattoos. 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 and 2 gangrenous toes on the right, chronic hyperpigmentation bilateral shins and foot) Labs LABS Laboratory Tests Test 05/21/18 12:04 05/21/18 15:00 05/21/18 17:08 05/21/18 20:46 Glucose (Fingerstick) 110 mg/dL (70-99) 131 mg/dL (70-99) 142 mg/dL (70-99) 212 mg/dL (70-99) Test 05/21/18 21:21 05/22/18 05:30 O2 Saturation 95 % (92-99) Arterial Blood pH 7.38 (7.35-7.45) Arterial Blood pCO2 at Patient Temp 32 mmHg (35-46) Arterial Blood pO2 at Patient Temp 78 mmHg (65-108) Arterial Blood HCO3 19 mmol/L (21-28) Arterial Blood Base Excess -6 mmol/L (-3-3) FiO2 21 Creatinine 1.5 mg/dL (0.7-1.3) Estimated GFR (Cockcroft-Gault) 45.5 Assessment and Plan Assessmemt and Plan Problems Medical Problems: (1) Fever Status: Acute (2) Gangrene of toe Status: Acute (3) Leukocytosis Status: Acute (4) Severe sepsis Status: Acute Comment Review of Relevant I have reviewed the following items navi (where applicable) has been applied. Labs Laboratory Tests Test 05/20/18 12:09 05/20/18 17:31 05/20/18 19:10 05/20/18 21:30 Glucose (Fingerstick) 123 mg/dL (70-99) 126 mg/dL (70-99) Prothrombin Time 18.1 SEC (11.7-14.0) Prothromb Time International Ratio 1.5 (0.8-1.1) Lactic Acid Level 0.7 mmol/L (0.4-2.0) Test 05/21/18 06:00 05/21/18 07:51 05/21/18 12:04 05/21/18 15:00 White Blood Count 11.1 x10^3/uL (4.0-11.0) Red Blood Count 3.87 x10^6/uL (4.30-5.70) Hemoglobin 10.2 g/dL (13.0-17.5) Hematocrit 33.0 % (39.0-53.0) Mean Corpuscular Volume 85 fL (79-100) Mean Corpuscular Hemoglobin 26 pg (25-35) Mean Corpuscular Hemoglobin Concent 31 g/dL (31-37) Red Cell Distribution Width 16.6 % (11.5-14.5) Platelet Count 176 x10^3/uL (140-400) Prothrombin Time 16.7 SEC (11.7-14.0) Prothromb Time International Ratio 1.4 (0.8-1.1) Sodium Level 142 mmol/L (136-145) Potassium Level 3.5 mmol/L (3.5-5.1) Chloride Level 103 mmol/L (98-107) Carbon Dioxide Level 24 mmol/L (21-32) Anion Gap 15 (6-14) Blood Urea Nitrogen 21 mg/dL (8-26) Creatinine 1.7 mg/dL (0.7-1.3) Estimated GFR (Cockcroft-Gault) 39.4 Glucose Level 110 mg/dL (70-99) Calcium Level 8.8 mg/dL (8.5-10.1) Glucose (Fingerstick) 107 mg/dL (70-99) 110 mg/dL (70-99) 131 mg/dL (70-99) Test 05/21/18 17:08 05/21/18 20:46 05/21/18 21:21 05/22/18 05:30 Glucose (Fingerstick) 142 mg/dL (70-99) 212 mg/dL (70-99) O2 Saturation 95 % (92-99) Arterial Blood pH 7.38 (7.35-7.45) Arterial Blood pCO2 at Patient Temp 32 mmHg (35-46) Arterial Blood pO2 at Patient Temp 78 mmHg (65-108) Arterial Blood HCO3 19 mmol/L (21-28) Arterial Blood Base Excess -6 mmol/L (-3-3) FiO2 21 Creatinine 1.5 mg/dL (0.7-1.3) Estimated GFR (Cockcroft-Gault) 45.5 Laboratory Tests Test 05/21/18 12:04 05/21/18 15:00 05/21/18 17:08 05/21/18 20:46 Glucose (Fingerstick) 110 mg/dL (70-99) 131 mg/dL (70-99) 142 mg/dL (70-99) 212 mg/dL (70-99) Test 05/21/18 21:21 05/22/18 05:30 O2 Saturation 95 % (92-99) Arterial Blood pH 7.38 (7.35-7.45) Arterial Blood pCO2 at Patient Temp 32 mmHg (35-46) Arterial Blood pO2 at Patient Temp 78 mmHg (65-108) Arterial Blood HCO3 19 mmol/L (21-28) Arterial Blood Base Excess -6 mmol/L (-3-3) FiO2 21 Creatinine 1.5 mg/dL (0.7-1.3) Estimated GFR (Cockcroft-Gault) 45.5 Microbiology 05/21/18 Blood Culture - Preliminary, Resulted NO GROWTH AFTER 1 DAY 05/19/18 Urine Culture - Final, Complete 05/19/18 Urine Culture Result 1 (FELICITA) - Final, Complete 05/19/18 Anaerobic/Aerobic Culture, Resulted Pending 05/19/18 Anaerobic Culture Result 1 (FELICITA), Resulted Pending 05/19/18 Aerobic Culture, Resulted Pending 05/19/18 Aerobic Culture Result 1 (FELICITA), Resulted Pending 05/19/18 Gram Stain - Final, Resulted 05/19/18 Gram Stain Result 1 (FELICITA) - Final, Resulted 05/19/18 Gram Stain Result 2 (FELICITA) - Final, Resulted Medications Current Medications Sodium Chloride 1,000 ml @ 2,190 mls/hr Q28M IV Last administered on at 14:36; Start 05/18/18 at 12:52; Stop 05/18/18 at 13:52; Status DC Piperacillin Sod/ Tazobactam Sod 4.5 gm/Sodium Chloride 100 ml @ 200 mls/hr 1X ONCE IV Last administered on 05/18/18at 14:34; Start 05/18/18 at 13:00; Stop 05/18/18 at 13:29; Status DC Vancomycin HCl (Vanco Per Pharmacy) 1 each 1X ONCE MC Last administered on 01/24at 13:00; Start 05/18/18 at 13:00; Stop 05/18/18 at 13:11; Status DC Vancomycin HCl 2 gm/Sodium Chloride 500 ml @ 250 mls/hr 1X ONCE IV Last administered on 05/18/18at 15:28; Start 05/18/18 at 13:15; Stop 05/18/18 at 15:14 ; Status DC Ondansetron HCl (Zofran) 4 mg PRN Q8HRS PRN IV NAUSEA/VOMITING; Start 05/18/18 at 14:45; Stop 05/18/18 at 15:28; Status DC Fentanyl Citrate (Fentanyl 2ml Vial) 50 mcg PRN Q1HR PRN IV PAIN; Start at 14:45; Stop 05/19/18 at 11:50; Status DC Sodium Chloride 1,000 ml @ 80 mls/hr [id number] IV ; Start 05/18/18 at 14:43; Stop 05/18/18 at 18:42; Status DC Acetaminophen (Tylenol) 650 mg 1X ONCE PO Last administered on 05/18/18at 15:29 ; Start 05/18/18 at 15:30; Stop 05/18/18 at 15:31; Status DC Ondansetron HCl (Zofran) 4 mg PRN Q6HRS PRN IV NAUSEA/VOMITING; Start 05/18/18 at 15:30 Diltiazem HCl (Cardizem Iv Push) 10 mg 1X ONCE IVP ; Start 05/18/18 at 15:30; Stop 05/18/18 at 15:31; Status DC Acetaminophen (Tylenol) 500 mg PRN Q6HRS PRN PO MILD PAIN / TEMP; Start at 15:30; Stop 05/18/18 at 16:14; Status DC Acetaminophen/ Codeine Phosphate (Tylenol #3) 1 tab PRN Q6HRS PRN PO MODERATE PAIN Last administered on 05/19/18at 10:12; Start 05/18/18 at 15:30 Morphine Sulfate (Morphine Sulfate) 2 mg PRN Q2HR PRN IV PAIN Last administered on 05/21/18at 11:48; Start 05/18/18 at 15:30 Oxycodone/ Acetaminophen (Percocet 5/325) 1 tab PRN Q4HRS PRN PO SEVERE PAIN Last administered on 05/20/18at 13:04; Start 05/18/18 at 15:30 Albuterol Sulfate (Ventolin Hfa) 2 puff PRN Q6HRS PRN IH SHORTNESS OF BREATH; Start 05/18/18 at 15:30; Status UNV Digoxin (Lanoxin) 125 mcg DAILY PO ; Start 05/19/18 at 09:00; Stop 05/19/18 at 09:00; Status DC Furosemide (Lasix) 40 mg DAILY PO Last administered on 05/21/18 09:20; Start 05/19/18 at 09:00 Gabapentin (Neurontin) 300 mg DAILY PO Last administered on 05/21/18 09:20; Start 05/19/18 at 09:00 Lisinopril (Prinivil) 20 mg DAILY PO Last administered on 05/19/18 10:14; Start 05/19/18 at 09:00 Metoprolol Tartrate (Lopressor) 50 mg BID PO Last administered on 05/19/18 10: 13; Start 05/18/18 at 21:00 Oxycodone/ Acetaminophen (Percocet 10/325) 1 tab PRN Q6HRS PRN PO SEVERE PAIN ( 2ND Choice) Last administered on 05/19/18at 19:24; Start 05/18/18 at 15:30 Oxycodone/ Acetaminophen (Percocet 5/325) 1 tab PRN Q4HRS PRN PO PAIN; Start at 15:30; Status UNV Acetaminophen (Tylenol) 500 mg PRN Q6HRS PRN PO MILD PAIN / TEMP Last administered on 05/20/18 20:08; Start 05/18/18 at 16:15 Atorvastatin Calcium (Lipitor) 80 mg QHS PO Last administered on 05/21/18 20: 57; Start 05/18/18 at 21:00 Hydralazine HCl (Apresoline) 10 mg TID PO Last administered on 05/19/18 10:16 ; Start 05/18/18 at 16:00 Insulin Human Lispro (HumaLOG) 10 units DAILYWBKFT SQ ; Start 05/18/18 at 17:00 Levetiracetam (Keppra) 1,250 mg BID PO Last administered on 05/21/18 20:56; Start 05/18/18 at 21:00 Metformin HCl (Glucophage) 1,000 mg BIDWMEALS PO Last administered on 4/15/ 19at 18:09; Start 05/18/18 at 17:00 Multivitamins (Thera M Plus) 1 tab DAILY PO Last administered on 05/21/18 09: 19; Start 05/19/18 at 09:00 Potassium Chloride (Klor-Con) 20 meq DAILYWBKFT PO Last administered on at 09:19; Start 05/19/18 at 08:00 Risperidone (RisperDAL) 1 mg QHS PO Last administered on 05/21/18at 20:57; Start 05/18/18 at 21:00 Non-Formulary Medication (Rosuvastatin Calcium (Crestor)) 40 mg DAILY PO ; Start 05/19/18 at 09:00; Status UNV Zonisamide (Zonegran) 400 mg DAILY PO Last administered on 05/21/18 09:19; Start 05/19/18 at 09:00 Albuterol/ Ipratropium (Duoneb) 3 ml Q4HRS W/A NEB Last administered on at 20:09; Start 05/18/18 at 18:00 Insulin Human Lispro (HumaLOG) 0-9 UNITS TIDWMEALS SQ ; Start 05/18/18 at 17:00 Dextrose (Dextrose 50%-Water Syringe) 12.5 gm PRN Q15MIN PRN IV SEE COMMENTS; Start 05/18/18 at 15:30 Albuterol Sulfate (Ventolin Neb Soln) 2.5 mg PRN Q6HRS PRN NEB SHORTNESS OF BREATH; Start 05/18/18 at 15:45 Piperacillin Sod/ Tazobactam Sod 3.375 gm/Sodium Chloride 50 ml @ 100 mls/hr Q6HRS IV Last administered on 05/22/18at 05:53; Start 05/18/18 at 18:00 Potassium Chloride (Klor-Con) 40 meq 1X ONCE PO Last administered on at 10:14; Start 05/19/18 at 08:30; Stop 05/19/18 at 08:31; Status DC Heparin Sodium (Porcine) (Heparin Sodium) 5,000 unit Q8HRS SQ ; Start 05/19/18 at 14:00; Stop 05/19/18 at 14:00; Status DC Furosemide (Lasix) 40 mg 1X ONCE IVP Last administered on 4/13/19at 10:12; Start 05/19/18 at 08:45; Stop 05/19/18 at 08:46; Status DC Phytonadione (Vitamin K Ampule) 10 mg 1X ONCE SQ Last administered on at 10:16; Start 05/19/18 at 10:00; Stop 05/19/18 at 10:01; Status DC Vancomycin HCl (Vanco Per Pharmacy) 1 each PRN DAILY PRN MC SEE COMMENTS Last administered on 05/19/18at 10:32; Start 05/19/18 at 10:00; Stop 05/20/18 at 10:42 ; Status DC Phytonadione (Vitamin K Ampule) 10 mg 1X ONCE SQ ; Start 05/19/18 at 10:15; Stop 05/19/18 at 10:16; Status UNV Vancomycin HCl 1.75 gm/Sodium Chloride 500 ml @ 250 mls/hr Q24H IV Last administered on 05/19/18at 16:59; Start 05/19/18 at 16:00; Stop 05/20/18 at 10:42 ; Status DC Vancomycin HCl (Vancomycin Trough Level) 1 each 1X ONCE MC ; Start 05/20/18 at 16:30; Stop 05/20/18 at 16:30; Status DC Acetaminophen (Tylenol Supp) 650 mg PRN Q6HRS PRN NE MILD PAIN / TEMP Last administered on 05/20/18at 01:31; Start 05/20/18 at 01:15 Sodium Chloride 500 ml @ 333 mls/hr 1X ONCE IV Last administered on at 01:14; Start 05/20/18 at 01:15; Stop 05/20/18 at 02:45; Status DC Phytonadione 5 mg/ Dextrose 50.5 ml @ 101 mls/hr 1X ONCE IV Last administered on 05/20/18at 10:08; Start 05/20/18 at 10:30; Stop 05/20/18 at 10:59 ; Status DC Daptomycin 590 mg/ Sodium Chloride 50 ml @ 100 mls/hr Q24H IV Last administered on 05/21/18at 11:49; Start 05/20/18 at 12:00 Ondansetron HCl (Zofran) 4 mg PRN Q6HRS PRN IV NAUSEA/VOMITING; Start 05/21/18 at 09:45; Stop 05/22/18 at 09:44 Fentanyl Citrate (Fentanyl 2ml Vial) 25 mcg PRN Q5MIN PRN IV MILD PAIN; Start 05/21/18 at 09:45; Stop 05/22/18 at 09:44 Fentanyl Citrate (Fentanyl 2ml Vial) 50 mcg PRN Q5MIN PRN IV MODERATE TO SEVERE PAIN; Start 05/21/18 at 09:45; Stop 05/22/18 at 09:44 Morphine Sulfate (Morphine Sulfate) 1 mg PRN Q10MIN PRN IV SEVERE PAIN; Start 05/21/18 at 09:45; Stop 05/22/18 at 09:44 Ringer's Solution 1,000 ml @ 30 mls/hr Q24H IV ; Start 05/21/18 at 09:39; Stop 05/22/18 at 00:37; Status DC Lidocaine HCl (Xylocaine-Mpf 1% 2ml Vial) 2 ml 1X PRN PRN ID IV START; Start at 09:45; Stop 05/22/18 at 09:44 Hydromorphone HCl (Dilaudid) 0.5 mg PRN Q10MIN PRN IV SEV PAIN, Second choice; Start 05/21/18 at 09:45; Stop 05/22/18 at 09:44 Prochlorperazine Edisylate (Compazine) 5 mg PACU PRN PRN IV NAUSEA, MRX1; Start 05/21/18 at 09:45; Stop 05/22/18 at 09:44 Lidocaine HCl (Glydo (Lidocaine) Jelly) 1 vianney 1X ONCE MM ; Start 05/21/18 at 12 :30; Stop 05/21/18 at 12:31; Status DC Propofol 20 ml @ As Directed STK-MED ONCE IV ; Start 05/21/18 at 12:27; Stop at 12:28; Status DC Dexamethasone Sodium Phosphate (Decadron) 20 mg STK-MED ONCE .ROUTE ; Start at 12:27; Stop 05/21/18 at 12:28; Status DC Famotidine (Pepcid Vial) 20 mg STK-MED ONCE .ROUTE ; Start 05/21/18 at 12:27; Stop 05/21/18 at 12:28; Status DC Lidocaine HCl (Lidocaine Pf 2% Vial) 5 ml STK-MED ONCE .ROUTE ; Start 05/21/18 at 12:27; Stop 05/21/18 at 12:28; Status DC Ondansetron HCl (Zofran) 4 mg STK-MED ONCE .ROUTE ; Start 05/21/18 at 12:27; Stop 05/21/18 at 12:28; Status DC Fentanyl Citrate (Fentanyl 2ml Vial) 100 mcg STK-MED ONCE .ROUTE ; Start at 12:27; Stop 05/21/18 at 12:28; Status DC Bacitracin 55829 unit/Sodium Chloride 500 ml @ 500 mls/hr 1X ONCE IRR ; Start 05/21/18 at 12:40; Stop 05/21/18 at 13:39; Status DC Cefazolin Sodium 1 gm/Sodium Chloride 500 ml @ 500 mls/hr 1X ONCE IRR ; Start 05/21/18 at 12:40; Stop 05/21/18 at 13:39; Status DC Lidocaine HCl 20 ml STK-MED ONCE .ROUTE ; Start 05/21/18 at 11:42; Stop at 12:42; Status DC Esmolol HCl (Brevibloc) 100 mg STK-MED ONCE IVP ; Start 05/21/18 at 13:01; Stop 05/21/18 at 13:02; Status DC Esmolol HCl (Brevibloc) 100 mg STK-MED ONCE IVP ; Start 05/21/18 at 14:22; Stop 05/21/18 at 14:23; Status DC Neomycin/ Polymyxin/ Bacitracin (Triple Antibiotic Ointment) 1 pkt STK-MED ONCE TP Last administered on 05/21/18at 14:41; Start 05/21/18 at 13:38; Stop at 14:38; Status DC Sevoflurane (Ultane) 90 ml STK-MED ONCE IH ; Start 05/21/18 at 14:40; Stop 05/21 at 14:41; Status DC Naloxone HCl (Narcan) 0.4 mg PRN Q2MIN PRN IV SEE INSTRUCTIONS; Start 05/21/18 at 15:00 Sodium Chloride 1,000 ml @ 25 mls/hr Q24H IV ; Start 05/21/18 at 14:57 Morphine Sulfate 30 ml @ 0 mls/hr CONT PRN PRN IV PER PROTOCOL; Start 05/21/18 at 15:00 Labetalol HCl (Normodyne Iv Push) 20 mg PRN Q2HR PRN IVP HYPERTENSION, SEE COMMENTS; Start 05/21/18 at 15:30 Labetalol HCl (Normodyne Iv Push) 5 mg 1X PACU PRN IVP tachycardia and HTN Last administered on 05/21/18at 15:30; Start 05/21/18 at 15:30 Insulin Glargine (Lantus) 3 units 1X ONCE SQ Last administered on 05/21/18at 22 :00; Start 05/21/18 at 22:00; Stop 05/22/18 at 01:31; Status DC Active Scripts Active Digoxin 125 Mcg Tablet 125 Mcg PO DAILY Furosemide 40 Mg Tablet 40 Mg PO DAILY Metoprolol Tartrate 50 Mg Tablet 50 Mg PO BID [Warfarin Sodium] 1 EACH Each 1 Each MC PRN DAILY PRN Lisinopril 20 Mg Tablet 20 Mg PO DAILY Duoneb 0.5-3(2.5) Mg/3 Ml (Albuterol/Ipratropium) 3 Ml Ampul.neb 3 Ml NEB Q4HRS W/A 30 Days Hydralazine Hcl 10 Mg Tablet 10 Mg PO TID Reported Zonisamide 100 Mg Capsule 400 Mg PO DAILY Percocet 5-325 Mg Tablet (Oxycodone/Acetaminophen) 1 Each Tablet 1 Tab PO PRN Q4HRS PRN Multivitamins (Multivitamin) 1 Each Tablet 1 Tab PO DAILY Levetiracetam 250 Mg Tablet 1,250 Mg PO BID Novolin N (Nph, Human Insulin Isophane) 100 Unit/1 Ml Vial Unknown Dose SQ Atorvastatin Calcium 80 Mg Tablet 1 Tab PO DAILY Acetaminophen 500 Mg Tablet 1 Tab PO PRN Q6HRS PRN Albuterol Sulfate Hfa Inhaler (Albuterol Sulfate) 8.5 Gm Hfa.aer.ad 2 Puff IH PRN Q6HRS PRN Aspirin Ec (Aspirin) 325 Mg Tablet.dr 81 Mg PO DAILY Crestor (Rosuvastatin Calcium) 40 Mg Tablet 40 Mg PO DAILY Warfarin Sodium 5 Mg Tablet 6 Mg PO DAILY Warfarin Sodium 2.5 Mg Tablet 2.5 Mg PO 3X/WEEK monday,monday, Gabapentin (Gabapentin) 300 Mg Capsule 300 Mg PO DAILY Risperidone 1 Mg Tablet 1 Mg PO HS Novolog (Insulin Aspart) 100 Unit/1 Ml Vial 10 Unit SQ DAILYAC Oxycodone-Acetaminophen 10-325 (Oxycodone Hcl/Acetaminophen) 1 Each Tablet 1 Each PO PRN Q6HRS Potassium 99 Mg Tablet 20 Meq PO DAILY Prednisone (Prednisone) 10 Mg Tablet 10 Mg PO DAILY Metformin Hcl 500 Mg Tablet 1,000 Mg PO BIDBFRMEAL Vitals/I & O Vital Sign - Last 24 Hours 05/21/18 05/21/18 05/21/18 05/21/18 08:22 09:00 09:00 09:00 Pulse 128 128 128 B/P (MAP) 99/61 99/61 99/61 Pulse Ox 100 O2 Delivery Nasal Cannula O2 Flow Rate 2.0 05/21/18 05/21/18 05/21/18 05/21/18 09:00 10:00 11:00 11:48 Temp 98.2 98.0 98.3 98.2 98.0 98.3 Pulse 144 126 128 Resp 17 15 20 20 B/P (MAP) 144/95 (111) 134/54 (80) 131/53 (79) Pulse Ox 99 99 100 99 O2 Delivery Nasal Cannula Nasal Cannula Nasal Cannula Nasal Cannula O2 Flow Rate 1.0 1.0 1.0 1.0 05/21/18 05/21/18 05/21/18 05/21/18 12:00 12:00 12:20 12:45 Temp 98.2 98.2 Pulse 128 Resp 20 20 B/P (MAP) 99/61 (74) Pulse Ox 100 99 98 O2 Delivery Nasal Cannula Nasal Cannula Nasal Cannula Nasal Cannula O2 Flow Rate 1.0 1.0 1.0 2.0 05/21/18 05/21/18 05/21/18 05/21/18 14:53 14:53 15:00 15:15 Temp 99.1 99.1 99.1 99.1 99.1 99.1 Pulse 124 122 138 Resp 19 15 17 B/P (MAP) 128/72 130/74 134/64 Pulse Ox 100 100 100 O2 Delivery Nasal Cannula Nasal Cannula Nasal Cannula Nasal Cannula O2 Flow Rate 2.0 2.0 2.0 2.0 05/21/18 05/21/18 05/21/18 05/21/18 15:30 15:30 15:45 15:50 Temp 99.1 98.6 99.1 98.6 Pulse 139 94 88 Resp 15 16 B/P (MAP) 138/64 138/64 135/56 Pulse Ox 100 100 O2 Delivery Nasal Cannula Nasal Cannula Nasal Cannula O2 Flow Rate 2.0 2.0 2.0 05/21/18 05/21/18 05/21/18 05/21/18 16:00 16:20 16:20 17:00 Temp 98.6 98.9 98.6 98.9 Pulse 88 95 110 Resp 16 19 23 B/P (MAP) 151/52 137/54 (81) 117/68 (84) Pulse Ox 100 96 100 O2 Delivery Nasal Cannula Nasal Cannula Nasal Cannula Nasal Cannula O2 Flow Rate 2.0 2.0 2.0 2.0 05/21/18 05/21/18 05/21/18 05/21/18 17:20 18:00 19:38 19:51 Temp 98.2 98.2 Pulse 112 126 Resp 14 35 B/P (MAP) 132/62 (85) 127/64 (85) 98/68 (78) Pulse Ox 98 99 99 O2 Delivery Nasal Cannula Nasal Cannula Nasal Cannula O2 Flow Rate 2.0 2.0 1.5 05/21/18 05/21/18 05/21/18 05/21/18 20:00 20:10 21:00 21:00 B/P (MAP) 119/54 119/54 Pulse Ox 100 O2 Delivery Room Air Nasal Cannula O2 Flow Rate 2.0 05/21/18 05/21/18 05/21/18 05/21/18 21:00 21:15 22:00 23:00 Pulse 108 120 112 Resp 10 10 19 B/P (MAP) 119/54 (75) 165/61 (95) 112/63 (79) Pulse Ox 100 100 99 O2 Delivery Room Air Nasal Cannula Nasal Cannula O2 Flow Rate 2.0 2.0 2.0 05/22/18 05/22/18 05/22/18 05/22/18 00:00 01:00 03:00 04:00 Temp 98.6 98.6 Pulse 100 102 108 98 Resp 11 11 9 10 B/P (MAP) 92/47 (62) 75/40 (52) 118/56 (76) 124/41 (68) Pulse Ox 100 96 98 98 O2 Delivery Nasal Cannula Nasal Cannula Nasal Cannula Nasal Cannula O2 Flow Rate 2.0 2.0 1.5 1.5 05/22/18 05/22/18 05:00 06:00 Pulse 90 102 Resp 9 23 B/P (MAP) 125/45 (71) 66/57 (60) Pulse Ox 98 97 O2 Delivery Nasal Cannula O2 Flow Rate 2.0 Intake and Output 05/21/18 05/21/18 05/22/18 15:00 23:00 07:00 Intake Total 700 ml 395 ml 200 ml Output Total 2750 ml 660 ml 755 ml Balance -2050 ml -265 ml -555 ml Images CRYSTAL - The Ejection Fraction is 35-40%. Global hypokinesis with modereate to severe LV dysfunction. There is no thrombus noted in the left atrial appendage. No significant aortic valve mass/thrombus or vegetation noted. Other valves are also negative for any vegetation/thrombus/mass. Nutrition Consultation Dietary Evaluation: Recommendations by RD: Increase Calorie Intake, Protein supplementation Comments: REC ADA/cardiac diet per pmhx, will adjust diet order REC Cristhian BID REC continue MVI Expected Outcomes/Goals: PO intake to meet >75% est needs Malnutrition Findings: Food and Nutrition Intake (Mod: <75% est energy req 7days Weight Status: Appropriate NEHAL NELSON MD May 22, 2018 08:15
[2018-05-22] MEDS: metFORMIN 500 MG TABLET PO SCH ×2 (08:22→16:20)
[2018-05-22] MEDS: ZONISAMIDE 100 MG CAPSULE. PO SCH (08:22)
[2018-05-22] MEDS: MULTIVITAMIN with MINERAL TABLET. PO SCH (08:22)
[2018-05-22] MEDS: FUROSEMIDE 40 MG TABLET. PO SCH (08:23)
[2018-05-22] MEDS: GABAPENTIN 300 MG CAPSULE. PO SCH (08:23)
[2018-05-22] MEDS: POTASSIUM CHLORIDE 20 MEQ TABLET.ER. PO SCH (08:23)
[2018-05-22] MEDS: IPRATRPIUM/ALBUTEROL 0.5/2.5MG 3 ML NEBU. NEB SCH ×5 (08:24→22:00)
[2018-05-22] MEDS: ACETAMINOPHEN/CODEINE 300/30MG TABLET. PO PRN ×2 (08:24→16:19)
[2018-05-22] MEDS: INSULIN LISPRO 300 UNITS/3 ML INSULN.PEN. SQ SCH ×4 (08:29→17:23)
[2018-05-22] MEDS: LISINOPRIL 20 MG TABLET PO SCH (09:00)
[2018-05-22] MEDS: hydrALAZINE 10 MG TABLET PO SCH ×3 (09:00→21:27)
[2018-05-22] MEDS: METOPROLOL TART IMMED RELEASE 50 MG TABLET. PO SCH ×2 (11:46→21:28)
[2018-05-22] MEDS: levETIRAcetam 250 MG TABLET PO SCH ×2 (11:47→21:25)
--- NOTE | 2018-05-22 12:06 | PDOC ---
[facility] [employer] TECH 05/22/18 1206: CARDIO Progress Notes Date and Time Date of Service 05/22/2018 Time of Evaluation 1130 Vitals Vitals Vital Signs Date Time Temp Pulse Resp B/P (MAP) Pulse Ox O2 Delivery O2 Flow Rate FiO2 05/22/18 11:00 136 14 142/117 (125) 100 Nasal Cannula 2.0 05/22/18 08:00 97.9 97.9 Weight Weight [ ] Input and Output Intake and Output Intake and Output 05/22/18 06:59 Intake Total 1295 ml Output Total 4165 ml Balance -2870 ml Intake Oral 545 ml IV Total 700 ml Blood Product IV Normal Saline Flush 50 ml Output Urine Total 4010 ml Stool Total 0 ml Drainage Total 5 ml Estimated Blood Loss 150 ml # Bowel Movements 3 Laboratory Labs Laboratory Tests Test 05/21/18 12:04 05/21/18 15:00 05/21/18 17:08 05/21/18 20:46 Glucose (Fingerstick) 110 mg/dL (70-99) 131 mg/dL (70-99) 142 mg/dL (70-99) 212 mg/dL (70-99) Test 05/21/18 21:21 05/22/18 05:30 05/22/18 08:21 O2 Saturation 95 % (92-99) Arterial Blood pH 7.38 (7.35-7.45) Arterial Blood pCO2 at Patient Temp 32 mmHg (35-46) Arterial Blood pO2 at Patient Temp 78 mmHg (65-108) Arterial Blood HCO3 19 mmol/L (21-28) Arterial Blood Base Excess -6 mmol/L (-3-3) FiO2 21 Creatinine 1.5 mg/dL (0.7-1.3) Estimated GFR (Cockcroft-Gault) 45.5 Glucose (Fingerstick) 220 mg/dL (70-99) Microbiology Micro Microbiology 05/21/18 Blood Culture - Preliminary, Resulted NO GROWTH AFTER 1 DAY 05/19/18 Urine Culture - Final, Complete 05/19/18 Urine Culture Result 1 (FELICITA) - Final, Complete 05/19/18 Anaerobic/Aerobic Culture, Resulted Pending 05/19/18 Anaerobic Culture Result 1 (FELICITA), Resulted Pending 05/19/18 Aerobic Culture, Resulted Pending 05/19/18 Aerobic Culture Result 1 (FELICITA), Resulted Pending 05/19/18 Gram Stain - Final, Resulted 05/19/18 Gram Stain Result 1 (FELICITA) - Final, Resulted 05/19/18 Gram Stain Result 2 (FELICITA) - Final, Resulted Physical Exam HEENT: Neck Supple W Full Motion Chest: Symmetric LUNGS: Other (diminished bases) Heart: S1S2, irregularly irregular (AFIB) Abdomen: Soft N/T Extremities: Other (RBKA with drain; left foot with dry dressing) Neurology: alert, oriented, follow commands Assessment Assessment 1. Right foot gangrene/ left foot wound: S/P RBKA and left foot debridement 2. PAFIB: RVR 3. CAD/AVR (bioprosthetic): CABG x4 (AGUILAR to LAD, SVG to D2, SVG to OM and SVG to PDA with AVR 2013 4. Bovine AVR: recent CRYSTAL, noted stable with no vegetations/thrombus/mass 5. Ischemic cardiomyopathy/chronic diastolic/systolic CHF: compensated with EF at 35-40% 6. DM2/HLP: uncontrolled. per PCP 7. HTN: controlled 8. Metabolic encephalopathy: 1 hour of unresponsiveness this am, back to baseline Recommendations Metoprolol held this am due to low BP. BP is currently adequate. Resume BB. Dig if remains on RVR. Repeat EKG. On coumadin at home. No anticoagulation or ASA currently. Will place on ASA and check with vascular if ok to resume anticoagulation Secondary prevention measures as tolerated. BMP and Mg. Head CT no contrast. Consider entresto as an outpt. ADDIS TOM MD 05/22/18 1751: CARDIO Progress Notes Plan Plan Pt. seen and examined. Agree with above HOSPITALITY SERVICES MANAGER note. BP are labile. Will monitor overnight and may need to lower lisinopril and add hydralazine TID so that doses can be held if his pressures drop. CT head negative. Supportive care. VERONIKA VANCE APRN May 22, 2018 12:06 ADDIS TOM MD May 22, 2018 17:51
--- NOTE | 2018-05-22 12:21 | EKG ---
[facility] [address] [place] [address] Test Date: 2018-05-22 Test Time: 12:11:28 Pat Name: VICKI BRAUN Department: Room: 104 1 Gender: M Manager Internet: AUGUSTUS : 1940 Requested By: VERONIKA VANCE Order Number: [id number] Reading MD: Rickie Barr Measurements Intervals [place] Rate: 135 P: [place]: QRS: -39 QRSD: 148 T: 144 QT: 328 QTc: 496 Interpretive Statements SINUS TACHYCARDIA LEFT BUNDLE BRANCH BLOCK ABNORMAL ECG Electronically Signed On 05-28-2018 13:06:05 CDT by Rickie Barr
[2018-05-22 12:30] LABS: CREATININE 1.6 mg/dL (0.7-1.3); GFR 42.2; MAGNESIUM 2.1 mg/dL (1.8-2.4); POTASSIUM 4.2 mmol/L (3.5-5.1)
[2018-05-22] MEDS ORDERED: DIGOXIN IV 500 MCG/2 ML AMPUL. IV ONE (12:30)
[2018-05-22] MEDS: DAPTOmycin (GENERIC) IVPB 590 MG in IV NORMAL SALINE 50ML 50 ML IV SCH (13:54)
--- NOTE | 2018-05-22 14:33 | RAD ---
CT Head without contrast 05/22/2018 1:37 PM Indication: encephalopathy Comparison: None Technique: Multidetector CT imaging of the brain is performed without contrast. Findings: There is a large area of right frontoparietal encephalomalacia consistent with prior infarct. Global atrophic changes are noted. Given aforementioned changes the ventricles and basilar cisterns have a expected configuration. Patchy periventricular deep white matter hypoattenuation is seen consistent with chronic small vessel disease. No evidence of acute intracranial hemorrhage is identified. No evidence of subacute territorial infarct is seen. Note that CT is limited for evaluation of acute ischemia. No acute abnormal extra-axial fluid collection is identified. Impression: 1. No acute intracranial process identified 2. 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 Age-related atrophy, and evidence of chronic small vessel disease as described CT DOSING PQRS STATEMENT: One or more of the following individualized dose reduction techniques were utilized for this examination: 1. Automated exposure control 2. Adjustment of the mA and/or kV according to patient size 3. Use of iterative reconstruction technique Electronically signed by: Antoni Reyes MD (05/22/2018 2:30 PM) [facility]
--- NOTE | 2018-05-22 14:52 | PDOC2 ---
PALLIATIVE CARE Palliative Care Note Palliative Care Consult requested by Dr. Herrera /Sathish to address patient's status with hospice. Medical assessment per medical record Medical Problems: (1) Fever (2) Gangrene of toe (3) Leukocytosis (4) Severe sepsis Patient resting. Per --Christine, patient had been on Hospice until 05/18/2018. [facility]. This was confirmed with Janay of [facility]. Patient was a Full Code with hospice. provided AD. Copy placed on record. PC will sign off. DEANDRA LACY May 22, 2018 14:52
[2018-05-22] MEDS: IV NORMAL SALINE 1000ML BAG 1,000 ML IV SCH (14:57)
--- NOTE | 2018-05-22 15:02 | NUR ---
Pharmacy Warfarin Dosing Note S:Pharmacy consulted to assist with anticoagulation, with target INR: 2 - 3 O:VICKI BRAUN is a 78 year old M with Atrial Fibrillation LABS: Last INR: 1.4 Last HGB: 10.2 Last HCT: 33 Last PLT: 176 Previous Regimen: 4mg/day except 2 mg Sat/Sun Vitamin K given: Y 05/19: 10 MG SUB-Q, 05/20: 10 MG IV Drug Interaction Changes: New Interacting Drug Ongoing Drug Interactions: Zosyn A:INR of 1.4 is below desired range due to held doses and vitamin K administration. INR admission was above goal range. Will initiate warfarin and monitor closely, patient may need higher doses at medication restart due to vitamin K. P: Warfarin dose: 4 mg Today at 1600 Next INR due 05/23/18 Pharmacy anticoagulation service will continue to follow. [facility], 05/22/18 [id number]
--- NOTE | 2018-05-22 15:30 | NUR ---
Wound Care Pt went to surgery yesterday for R BKA and L foot debridement, surgical dressings in place. Will defer to Vascular for dressing change orders.
--- NOTE | 2018-05-22 15:42 | EKG ---
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
[2018-05-22] MEDS ORDERED: WARFARIN 4 MG TABLET. PO ONE (16:00)
[2018-05-22] MEDS ORDERED: WARFARIN 5 MG TABLET. PO SCH (16:00)
--- NOTE | 2018-05-22 16:21 | PDOC ---
PROGRESS NOTES Subjective Subjective Pt just returned from head CT. RN concerned about 2 episodes of the pt being unresponsive this am. He reports his pain is controlled. Cardio requesting to resume anticoagulation. Objective Objective Vital Signs Date Time Temp Pulse Resp B/P (MAP) Pulse Ox O2 Delivery O2 Flow Rate FiO2 05/22/18 16:00 Nasal Cannula 1.0 05/22/18 15:20 68 12 118/60 (79) 100 05/22/18 08:00 97.9 97.9 Intake and Output 05/22/18 06:59 Intake Total 1295 ml Output Total 4165 ml Balance -2870 ml Intake Oral 545 ml IV Total 700 ml Blood Product IV Normal Saline Flush 50 ml Output Urine Total 4010 ml Stool Total 0 ml Drainage Total 5 ml Estimated Blood Loss 150 ml # Bowel Movements 3 Physical Exam Physical Exam Vital signs: tachycardic, hypertensive - in ICU Alert, responsive Right BKA dressing clean, dry and intact. MG in place with serosanginous drainage Left foot dressing removed, wound bed clean, good granulation tissue. No surrounding erythema. LLE edema, 1+. Palpable DP pulse. Assessment Assessment Problems Medical Problems: (1) Fever Status: Acute (2) Gangrene of toe Status: Acute (3) Leukocytosis Status: Acute (4) Severe sepsis Status: Acute Plan Plan of Care POD#1 of right BKA and left lateral foot debridement - Pt in ICU. Reports pain controlled. - Dressing to be removed tomorrow - PT when more stable, rigid rooke boot - CM consulted to assist with transition back to home hospice care - Ok to resume warfarin and aspirin Comment Review of Relevant I have reviewed the following items navi (where applicable) has been applied. Labs Laboratory Tests Test 05/20/18 17:31 05/20/18 19:10 05/20/18 21:30 05/21/18 06:00 Glucose (Fingerstick) 126 mg/dL (70-99) Prothrombin Time 18.1 SEC (11.7-14.0) 16.7 SEC (11.7-14.0) Prothromb Time International Ratio 1.5 (0.8-1.1) 1.4 (0.8-1.1) Lactic Acid Level 0.7 mmol/L (0.4-2.0) White Blood Count 11.1 x10^3/uL (4.0-11.0) Red Blood Count 3.87 x10^6/uL (4.30-5.70) Hemoglobin 10.2 g/dL (13.0-17.5) Hematocrit 33.0 % (39.0-53.0) Mean Corpuscular Volume 85 fL (79-100) Mean Corpuscular Hemoglobin 26 pg (25-35) Mean Corpuscular Hemoglobin Concent 31 g/dL (31-37) Red Cell Distribution Width 16.6 % (11.5-14.5) Platelet Count 176 x10^3/uL (140-400) Sodium Level 142 mmol/L (136-145) Potassium Level 3.5 mmol/L (3.5-5.1) Chloride Level 103 mmol/L (98-107) Carbon Dioxide Level 24 mmol/L (21-32) Anion Gap 15 (6-14) Blood Urea Nitrogen 21 mg/dL (8-26) Creatinine 1.7 mg/dL (0.7-1.3) Estimated GFR (Cockcroft-Gault) 39.4 Glucose Level 110 mg/dL (70-99) Calcium Level 8.8 mg/dL (8.5-10.1) Test 05/21/18 07:51 05/21/18 12:04 05/21/18 15:00 05/21/18 17:08 Glucose (Fingerstick) 107 mg/dL (70-99) 110 mg/dL (70-99) 131 mg/dL (70-99) 142 mg/dL (70-99) Test 05/21/18 20:46 05/21/18 21:21 05/22/18 05:30 05/22/18 08:21 Glucose (Fingerstick) 212 mg/dL (70-99) 220 mg/dL (70-99) O2 Saturation 95 % (92-99) Arterial Blood pH 7.38 (7.35-7.45) Arterial Blood pCO2 at Patient Temp 32 mmHg (35-46) Arterial Blood pO2 at Patient Temp 78 mmHg (65-108) Arterial Blood HCO3 19 mmol/L (21-28) Arterial Blood Base Excess -6 mmol/L (-3-3) FiO2 21 Sodium Level 140 mmol/L (136-145) Potassium Level 4.2 mmol/L (3.5-5.1) Chloride Level 101 mmol/L (98-107) Carbon Dioxide Level 23 mmol/L (21-32) Anion Gap 16 (6-14) Blood Urea Nitrogen 25 mg/dL (8-26) Creatinine 1.6 mg/dL (0.7-1.3) Estimated GFR (Cockcroft-Gault) 42.2 Glucose Level 219 mg/dL (70-99) Calcium Level 8.0 mg/dL (8.5-10.1) Magnesium Level 2.1 mg/dL (1.8-2.4) Test 05/22/18 13:14 Glucose (Fingerstick) 150 mg/dL (70-99) Laboratory Tests Test 05/21/18 17:08 05/21/18 20:46 05/21/18 21:21 05/22/18 05:30 Glucose (Fingerstick) 142 mg/dL (70-99) 212 mg/dL (70-99) O2 Saturation 95 % (92-99) Arterial Blood pH 7.38 (7.35-7.45) Arterial Blood pCO2 at Patient Temp 32 mmHg (35-46) Arterial Blood pO2 at Patient Temp 78 mmHg (65-108) Arterial Blood HCO3 19 mmol/L (21-28) Arterial Blood Base Excess -6 mmol/L (-3-3) FiO2 21 Sodium Level 140 mmol/L (136-145) Potassium Level 4.2 mmol/L (3.5-5.1) Chloride Level 101 mmol/L (98-107) Carbon Dioxide Level 23 mmol/L (21-32) Anion Gap 16 (6-14) Blood Urea Nitrogen 25 mg/dL (8-26) Creatinine 1.6 mg/dL (0.7-1.3) Estimated GFR (Cockcroft-Gault) 42.2 Glucose Level 219 mg/dL (70-99) Calcium Level 8.0 mg/dL (8.5-10.1) Magnesium Level 2.1 mg/dL (1.8-2.4) Test 05/22/18 08:21 05/22/18 13:14 Glucose (Fingerstick) 220 mg/dL (70-99) 150 mg/dL (70-99) Microbiology 05/21/18 Blood Culture - Preliminary, Resulted NO GROWTH AFTER 1 DAY 05/19/18 Urine Culture - Final, Complete 05/19/18 Urine Culture Result 1 (FELICITA) - Final, Complete 05/19/18 Anaerobic/Aerobic Culture, Resulted Pending 05/19/18 Anaerobic Culture Result 1 (FELICITA), Resulted Pending 05/19/18 Aerobic Culture - Preliminary, Resulted 05/19/18 Aerobic Culture Result 1 (FELICITA) - Preliminary, Resulted 05/19/18 Aerobic Culture Result 2 (FELICITA) - Preliminary, Resulted 05/19/18 Gram Stain - Final, Resulted 05/19/18 Gram Stain Result 1 (FELICITA) - Final, Resulted 05/19/18 Gram Stain Result 2 (FELICITA) - Final, Resulted Medications Current Medications Sodium Chloride 1,000 ml @ 2,190 mls/hr Q28M IV Last administered on at 14:36; Start 05/18/18 at 12:52; Stop 05/18/18 at 13:52; Status DC Piperacillin Sod/ Tazobactam Sod 4.5 gm/Sodium Chloride 100 ml @ 200 mls/hr 1X ONCE IV Last administered on 05/18/18at 14:34; Start 05/18/18 at 13:00; Stop 05/18/18 at 13:29; Status DC Vancomycin HCl (Vanco Per Pharmacy) 1 each 1X ONCE MC Last administered on 01/24at 13:00; Start 05/18/18 at 13:00; Stop 05/18/18 at 13:11; Status DC Vancomycin HCl 2 gm/Sodium Chloride 500 ml @ 250 mls/hr 1X ONCE IV Last administered on 05/18/18at 15:28; Start 05/18/18 at 13:15; Stop 05/18/18 at 15:14 ; Status DC Ondansetron HCl (Zofran) 4 mg PRN Q8HRS PRN IV NAUSEA/VOMITING; Start 05/18/18 at 14:45; Stop 05/18/18 at 15:28; Status DC Fentanyl Citrate (Fentanyl 2ml Vial) 50 mcg PRN Q1HR PRN IV PAIN; Start at 14:45; Stop 05/19/18 at 11:50; Status DC Sodium Chloride 1,000 ml @ 80 mls/hr [id number] IV ; Start 05/18/18 at 14:43; Stop 05/18/18 at 18:42; Status DC Acetaminophen (Tylenol) 650 mg 1X ONCE PO Last administered on 05/18/18 15:29 ; Start 05/18/18 at 15:30; Stop 05/18/18 at 15:31; Status DC Ondansetron HCl (Zofran) 4 mg PRN Q6HRS PRN IV NAUSEA/VOMITING; Start 05/18/18 at 15:30 Diltiazem HCl (Cardizem Iv Push) 10 mg 1X ONCE IVP ; Start 05/18/18 at 15:30; Stop 05/18/18 at 15:31; Status DC Acetaminophen (Tylenol) 500 mg PRN Q6HRS PRN PO MILD PAIN / TEMP; Start at 15:30; Stop 05/18/18 at 16:14; Status DC Acetaminophen/ Codeine Phosphate (Tylenol #3) 1 tab PRN Q6HRS PRN PO MODERATE PAIN Last administered on 05/22/18 08:24; Start 05/18/18 at 15:30 Morphine Sulfate (Morphine Sulfate) 2 mg PRN Q2HR PRN IV PAIN Last administered on 05/21/18at 11:48; Start 05/18/18 at 15:30 Oxycodone/ Acetaminophen (Percocet 5/325) 1 tab PRN Q4HRS PRN PO SEVERE PAIN Last administered on 05/20/18 13:04; Start 05/18/18 at 15:30 Albuterol Sulfate (Ventolin Hfa) 2 puff PRN Q6HRS PRN IH SHORTNESS OF BREATH; Start 05/18/18 at 15:30; Status UNV Digoxin (Lanoxin) 125 mcg DAILY PO ; Start 05/19/18 at 09:00; Stop 05/19/18 at 09:00; Status DC Furosemide (Lasix) 40 mg DAILY PO Last administered on 05/22/18 08:23; Start 05/19/18 at 09:00 Gabapentin (Neurontin) 300 mg DAILY PO Last administered on 05/22/18 08:23; Start 05/19/18 at 09:00 Lisinopril (Prinivil) 20 mg DAILY PO Last administered on 05/19/18at 10:14; Start 05/19/18 at 09:00 Metoprolol Tartrate (Lopressor) 50 mg BID PO Last administered on 4/16/19at 11: 46; Start 05/18/18 at 21:00 Oxycodone/ Acetaminophen (Percocet 10/325) 1 tab PRN Q6HRS PRN PO SEVERE PAIN ( 2ND Choice) Last administered on 05/19/18 19:24; Start 05/18/18 at 15:30 Oxycodone/ Acetaminophen (Percocet 5/325) 1 tab PRN Q4HRS PRN PO PAIN; Start at 15:30; Status UNV Acetaminophen (Tylenol) 500 mg PRN Q6HRS PRN PO MILD PAIN / TEMP Last administered on 05/20/18 20:08; Start 05/18/18 at 16:15 Atorvastatin Calcium (Lipitor) 80 mg QHS PO Last administered on 05/21/18 20: 57; Start 05/18/18 at 21:00 Hydralazine HCl (Apresoline) 10 mg TID PO Last administered on 05/22/18 14:21 ; Start 05/18/18 at 16:00 Insulin Human Lispro (HumaLOG) 10 units DAILYWBKFT SQ Last administered on 05/22 08:29; Start 05/18/18 at 17:00 Levetiracetam (Keppra) 1,250 mg BID PO Last administered on 05/22/18 11:47; Start 05/18/18 at 21:00 Metformin HCl (Glucophage) 1,000 mg BIDWMEALS PO Last administered on 08:22; Start 05/18/18 at 17:00 Multivitamins (Thera M Plus) 1 tab DAILY PO Last administered on 05/22/18 08: 22; Start 05/19/18 at 09:00 Potassium Chloride (Klor-Con) 20 meq DAILYWBKFT PO Last administered on 08:23; Start 05/19/18 at 08:00 Risperidone (RisperDAL) 1 mg QHS PO Last administered on 05/21/18 20:57; Start 05/18/18 at 21:00 Non-Formulary Medication (Rosuvastatin Calcium (Crestor)) 40 mg DAILY PO ; Start 05/19/18 at 09:00; Status UNV Zonisamide (Zonegran) 400 mg DAILY PO Last administered on 4/16/19at 08:22; Start 05/19/18 at 09:00 Albuterol/ Ipratropium (Duoneb) 3 ml Q4HRS W/A NEB Last administered on at 16:00; Start 05/18/18 at 18:00 Insulin Human Lispro (HumaLOG) 0-9 UNITS TIDWMEALS SQ Last administered on 05/22at 08:30; Start 05/18/18 at 17:00 Dextrose (Dextrose 50%-Water Syringe) 12.5 gm PRN Q15MIN PRN IV SEE COMMENTS; Start 05/18/18 at 15:30 Albuterol Sulfate (Ventolin Neb Soln) 2.5 mg PRN Q6HRS PRN NEB SHORTNESS OF BREATH; Start 05/18/18 at 15:45 Piperacillin Sod/ Tazobactam Sod 3.375 gm/Sodium Chloride 50 ml @ 100 mls/hr Q6HRS IV Last administered on 05/22/18at 13:55; Start 05/18/18 at 18:00 Potassium Chloride (Klor-Con) 40 meq 1X ONCE PO Last administered on at 10:14; Start 05/19/18 at 08:30; Stop 05/19/18 at 08:31; Status DC Heparin Sodium (Porcine) (Heparin Sodium) 5,000 unit Q8HRS SQ ; Start 05/19/18 at 14:00; Stop 05/19/18 at 14:00; Status DC Furosemide (Lasix) 40 mg 1X ONCE IVP Last administered on 05/19/18at 10:12; Start 05/19/18 at 08:45; Stop 05/19/18 at 08:46; Status DC Phytonadione (Vitamin K Ampule) 10 mg 1X ONCE SQ Last administered on at 10:16; Start 05/19/18 at 10:00; Stop 05/19/18 at 10:01; Status DC Vancomycin HCl (Vanco Per Pharmacy) 1 each PRN DAILY PRN MC SEE COMMENTS Last administered on 05/19/18at 10:32; Start 05/19/18 at 10:00; Stop 05/20/18 at 10:42 ; Status DC Phytonadione (Vitamin K Ampule) 10 mg 1X ONCE SQ ; Start 05/19/18 at 10:15; Stop 05/19/18 at 10:16; Status UNV Vancomycin HCl 1.75 gm/Sodium Chloride 500 ml @ 250 mls/hr Q24H IV Last administered on 05/19/18at 16:59; Start 05/19/18 at 16:00; Stop 05/20/18 at 10:42 ; Status DC Vancomycin HCl (Vancomycin Trough Level) 1 each 1X ONCE MC ; Start 05/20/18 at 16:30; Stop 05/20/18 at 16:30; Status DC Acetaminophen (Tylenol Supp) 650 mg PRN Q6HRS PRN CA MILD PAIN / TEMP Last administered on 05/20/18at 01:31; Start 05/20/18 at 01:15 Sodium Chloride 500 ml @ 333 mls/hr 1X ONCE IV Last administered on at 01:14; Start 05/20/18 at 01:15; Stop 05/20/18 at 02:45; Status DC Phytonadione 5 mg/ Dextrose 50.5 ml @ 101 mls/hr 1X ONCE IV Last administered on 05/20/18at 10:08; Start 05/20/18 at 10:30; Stop 05/20/18 at 10:59 ; Status DC Daptomycin 590 mg/ Sodium Chloride 50 ml @ 100 mls/hr Q24H IV Last administered on 05/22/18at 13:54; Start 05/20/18 at 12:00 Ondansetron HCl (Zofran) 4 mg PRN Q6HRS PRN IV NAUSEA/VOMITING; Start 05/21/18 at 09:45; Stop 05/22/18 at 09:44; Status DC Fentanyl Citrate (Fentanyl 2ml Vial) 25 mcg PRN Q5MIN PRN IV MILD PAIN; Start 05/21/18 at 09:45; Stop 05/22/18 at 09:44; Status DC Fentanyl Citrate (Fentanyl 2ml Vial) 50 mcg PRN Q5MIN PRN IV MODERATE TO SEVERE PAIN; Start 05/21/18 at 09:45; Stop 05/22/18 at 09:44; Status DC Morphine Sulfate (Morphine Sulfate) 1 mg PRN Q10MIN PRN IV SEVERE PAIN; Start 05/21/18 at 09:45; Stop 05/22/18 at 09:44; Status DC Ringer's Solution 1,000 ml @ 30 mls/hr Q24H IV ; Start 05/21/18 at 09:39; Stop 05/22/18 at 00:37; Status DC Lidocaine HCl (Xylocaine-Mpf 1% 2ml Vial) 2 ml 1X PRN PRN ID IV START; Start at 09:45; Stop 05/22/18 at 09:44; Status DC Hydromorphone HCl (Dilaudid) 0.5 mg PRN Q10MIN PRN IV SEV PAIN, Second choice; Start 05/21/18 at 09:45; Stop 05/22/18 at 09:44; Status DC Prochlorperazine Edisylate (Compazine) 5 mg PACU PRN PRN IV NAUSEA, MRX1; Start 05/21/18 at 09:45; Stop 05/22/18 at 09:44; Status DC Lidocaine HCl (Glydo (Lidocaine) Jelly) 1 vianney 1X ONCE MM ; Start 05/21/18 at 12 :30; Stop 05/21/18 at 12:31; Status DC Propofol 20 ml @ As Directed STK-MED ONCE IV ; Start 05/21/18 at 12:27; Stop at 12:28; Status DC Dexamethasone Sodium Phosphate (Decadron) 20 mg STK-MED ONCE .ROUTE ; Start at 12:27; Stop 05/21/18 at 12:28; Status DC Famotidine (Pepcid Vial) 20 mg STK-MED ONCE .ROUTE ; Start 05/21/18 at 12:27; Stop 05/21/18 at 12:28; Status DC Lidocaine HCl (Lidocaine Pf 2% Vial) 5 ml STK-MED ONCE .ROUTE ; Start 05/21/18 at 12:27; Stop 05/21/18 at 12:28; Status DC Ondansetron HCl (Zofran) 4 mg STK-MED ONCE .ROUTE ; Start 05/21/18 at 12:27; Stop 05/21/18 at 12:28; Status DC Fentanyl Citrate (Fentanyl 2ml Vial) 100 mcg STK-MED ONCE .ROUTE ; Start at 12:27; Stop 05/21/18 at 12:28; Status DC Bacitracin 36949 unit/Sodium Chloride 500 ml @ 500 mls/hr 1X ONCE IRR ; Start 05/21/18 at 12:40; Stop 05/21/18 at 13:39; Status DC Cefazolin Sodium 1 gm/Sodium Chloride 500 ml @ 500 mls/hr 1X ONCE IRR ; Start 05/21/18 at 12:40; Stop 05/21/18 at 13:39; Status DC Lidocaine HCl 20 ml STK-MED ONCE .ROUTE ; Start 05/21/18 at 11:42; Stop at 12:42; Status DC Esmolol HCl (Brevibloc) 100 mg STK-MED ONCE IVP ; Start 05/21/18 at 13:01; Stop 05/21/18 at 13:02; Status DC Esmolol HCl (Brevibloc) 100 mg STK-MED ONCE IVP ; Start 05/21/18 at 14:22; Stop 05/21/18 at 14:23; Status DC Neomycin/ Polymyxin/ Bacitracin (Triple Antibiotic Ointment) 1 pkt STK-MED ONCE TP Last administered on 05/21/18at 14:41; Start 05/21/18 at 13:38; Stop at 14:38; Status DC Sevoflurane (Ultane) 90 ml STK-MED ONCE IH ; Start 05/21/18 at 14:40; Stop 05/21 at 14:41; Status DC Naloxone HCl (Narcan) 0.4 mg PRN Q2MIN PRN IV SEE INSTRUCTIONS; Start 05/21/18 at 15:00 Sodium Chloride 1,000 ml @ 25 mls/hr Q24H IV ; Start 05/21/18 at 14:57 Morphine Sulfate 30 ml @ 0 mls/hr CONT PRN PRN IV PER PROTOCOL; Start 05/21/18 at 15:00 Labetalol HCl (Normodyne Iv Push) 20 mg PRN Q2HR PRN IVP HYPERTENSION, SEE COMMENTS; Start 05/21/18 at 15:30 Labetalol HCl (Normodyne Iv Push) 5 mg 1X PACU PRN IVP tachycardia and HTN Last administered on 05/21/18at 15:30; Start 05/21/18 at 15:30; Stop 05/22/18 at 09:09; Status DC Insulin Glargine (Lantus) 3 units 1X ONCE SQ Last administered on 05/21/18at 22 :00; Start 05/21/18 at 22:00; Stop 05/22/18 at 01:31; Status DC Aspirin (Ecotrin) 81 mg DAILYWBKFT PO ; Start 05/23/18 at 08:00 Digoxin (Lanoxin) 250 mcg 1X ONCE IV Last administered on 05/22/18at 12:28; Start 05/22/18 at 12:30; Stop 05/22/18 at 12:31; Status DC Warfarin Sodium (Coumadin) 6 mg DAILY16 PO ; Start 05/22/18 at 16:00; Stop 05/22 at 16:00; Status DC Warfarin Sodium (Coumadin) 2.5 mg 3X/WEEK PO ; Start 05/23/18 at 09:00; Status UNV Warfarin Sodium (Coumadin Per Physician) 1 each PRN DAILY PRN MC SEE COMMENTS; Start 05/22/18 at 14:45; Stop 05/22/18 at 14:57; Status DC Warfarin Sodium (Coumadin Per Pharmacy) 1 each PRN DAILY PRN MC SEE COMMENTS Last administered on 05/22/18at 14:59; Start 05/22/18 at 15:00 Warfarin Sodium (Coumadin) 4 mg 1X WARF ONCE PO ; Start 05/22/18 at 16:00; Stop 05/22/18 at 16:01; Status DC Active Scripts Active Digoxin 125 Mcg Tablet 125 Mcg PO DAILY Furosemide 40 Mg Tablet 40 Mg PO DAILY Metoprolol Tartrate 50 Mg Tablet 50 Mg PO BID [Warfarin Sodium] 1 EACH Each 1 Each MC PRN DAILY PRN Lisinopril 20 Mg Tablet 20 Mg PO DAILY Duoneb 0.5-3(2.5) Mg/3 Ml (Albuterol/Ipratropium) 3 Ml Ampul.neb 3 Ml NEB Q4HRS W/A 30 Days Hydralazine Hcl 10 Mg Tablet 10 Mg PO TID Reported Zonisamide 100 Mg Capsule 400 Mg PO DAILY Percocet 5-325 Mg Tablet (Oxycodone/Acetaminophen) 1 Each Tablet 1 Tab PO PRN Q4HRS PRN Multivitamins (Multivitamin) 1 Each Tablet 1 Tab PO DAILY Levetiracetam 250 Mg Tablet 1,250 Mg PO BID Novolin N (Nph, Human Insulin Isophane) 100 Unit/1 Ml Vial Unknown Dose SQ Atorvastatin Calcium 80 Mg Tablet 1 Tab PO DAILY Acetaminophen 500 Mg Tablet 1 Tab PO PRN Q6HRS PRN Albuterol Sulfate Hfa Inhaler (Albuterol Sulfate) 8.5 Gm Hfa.aer.ad 2 Puff IH PRN Q6HRS PRN Aspirin Ec (Aspirin) 325 Mg Tablet.dr 81 Mg PO DAILY Crestor (Rosuvastatin Calcium) 40 Mg Tablet 40 Mg PO DAILY Warfarin Sodium 5 Mg Tablet 6 Mg PO DAILY Warfarin Sodium 2.5 Mg Tablet 2.5 Mg PO 3X/WEEK monday,monday, Gabapentin (Gabapentin) 300 Mg Capsule 300 Mg PO DAILY Risperidone 1 Mg Tablet 1 Mg PO HS Novolog (Insulin Aspart) 100 Unit/1 Ml Vial 10 Unit SQ DAILYAC Oxycodone-Acetaminophen 10-325 (Oxycodone Hcl/Acetaminophen) 1 Each Tablet 1 Each PO PRN Q6HRS Potassium 99 Mg Tablet 20 Meq PO DAILY Prednisone (Prednisone) 10 Mg Tablet 10 Mg PO DAILY Metformin Hcl 500 Mg Tablet 1,000 Mg PO BIDBFRMEAL Vitals/I & O Vital Sign - Last 24 Hours 05/21/18 05/21/18 05/21/18 05/21/18 16:20 16:20 17:00 17:20 Temp 98.9 98.9 Pulse 95 110 Resp 19 23 B/P (MAP) 137/54 (81) 117/68 (84) Pulse Ox 96 100 98 O2 Delivery Nasal Cannula Nasal Cannula Nasal Cannula Nasal Cannula O2 Flow Rate 2.0 2.0 2.0 2.0 05/21/18 05/21/18 05/21/18 05/21/18 18:00 19:38 19:51 20:00 Temp 98.2 98.2 Pulse 112 126 Resp 14 35 B/P (MAP) 132/62 (85) 127/64 (85) 98/68 (78) Pulse Ox 99 99 O2 Delivery Nasal Cannula Nasal Cannula Room Air O2 Flow Rate 2.0 1.5 05/21/18 05/21/18 05/21/18 05/21/18 20:10 21:00 21:00 21:00 Pulse 108 Resp 10 B/P (MAP) 119/54 119/54 119/54 (75) Pulse Ox 100 100 O2 Delivery Nasal Cannula O2 Flow Rate 2.0 2.0 05/21/18 05/21/18 05/21/1816/19 21:15 22:00 23:00 00:00 Pulse 120 112 100 Resp 10 19 11 B/P (MAP) 165/61 (95) 112/63 (79) 92/47 (62) Pulse Ox 100 99 100 O2 Delivery Room Air Nasal Cannula Nasal Cannula Nasal Cannula O2 Flow Rate 2.0 2.0 2.0 05/22/18 05/22/18 05/22/18 05/22/18 01:00 03:00 04:00 05:00 Temp 98.6 98.6 Pulse 102 108 98 90 Resp 11 9 10 9 B/P (MAP) 75/40 (52) 118/56 (76) 124/41 (68) 125/45 (71) Pulse Ox 96 98 98 98 O2 Delivery Nasal Cannula Nasal Cannula Nasal Cannula O2 Flow Rate 2.0 1.5 1.5 05/22/18 05/22/18 05/22/18 05/22/18 06:00 07:00 08:00 08:00 Temp 97.9 97.9 Pulse 102 98 102 Resp 23 14 12 B/P (MAP) 66/57 (60) 111/44 (66) 163/71 (101) Pulse Ox 97 97 98 O2 Delivery Nasal Cannula Nasal Cannula Nasal Cannula Nasal Cannula O2 Flow Rate 2.0 2.0 2.0 2.0 05/22/18 05/22/18 05/22/18 05/22/18 08:12 09:00 09:24 10:00 Pulse 96 138 Resp 22 16 B/P (MAP) 149/64 (92) 129/60 (83) Pulse Ox 98 100 100 100 O2 Delivery Nasal Cannula Nasal Cannula Nasal Cannula Nasal Cannula O2 Flow Rate 1.0 2.0 2.0 2.0 05/22/18 05/22/18 05/22/18 05/22/18 11:00 11:46 12:00 12:00 Pulse 136 135 134 Resp 14 13 B/P (MAP) 142/117 (125) 146/107 138/109 (119) Pulse Ox 100 100 O2 Delivery Nasal Cannula Nasal Cannula Nasal Cannula O2 Flow Rate 2.0 2.0 1.0 05/22/18 05/22/18 05/22/18 05/22/18 12:28 13:00 14:00 14:21 Pulse 135 132 102 87 Resp 12 12 B/P (MAP) 107/56 (73) 201/155 (170) 214/148 Pulse Ox 99 100 O2 Delivery Nasal Cannula Nasal Cannula O2 Flow Rate 1.0 1.0 05/22/18 05/22/18 15:20 16:00 Pulse 68 Resp 12 B/P (MAP) 118/60 (79) Pulse Ox 100 O2 Delivery Nasal Cannula Nasal Cannula O2 Flow Rate 1.0 1.0 Intake and Output 05/21/18 05/21/18 05/22/18 14:59 22:59 06:59 Intake Total 700 ml 275 ml 320 ml Output Total 2750 ml 660 ml 755 ml Balance -2050 ml -385 ml -435 ml LA CASTANEDA May 22, 2018 16:21
[2018-05-22] MEDS: oxyCODONE/APAP 10/325 1 TAB TABLET PO PRN (17:50)
[2018-05-22] MEDS: risperiDONE 1 MG TABLET. PO SCH (21:24)
[2018-05-22] MEDS: ATORVASTATIN CALCIUM 40 MG TABLET. PO SCH (21:25)
[2018-05-23] VITALS (19 sets, daily range): BP systolic 82–169; BP diastolic 44–100
[2018-05-23] MEDS: oxyCODONE/APAP 5/325 1 TAB TABLET PO PRN ×2 (02:46→11:14)
[2018-05-23 05:50] LABS: BASO % 0 % (0-3); EOS # 0.1 x10^3/uL (0.0-0.7); EOS % 1 % (0-3); HEMATOCRIT 26.2 % (39.0-53.0); HEMOGLOBIN 8.4 g/dL (13.0-17.5); LYMPH # 0.5 x10^3/uL (1.0-4.8); LYMPH % 6 % (24-48); MEAN CORPUSCULAR HEMOGLOBIN 27 pg (25-35); MEAN CORPUSCULAR HGB CONC 32 g/dL (31-37); MEAN CORPUSCULAR VOLUME 84 fL (79-100); MONO # 0.8 x10^3/uL (0.0-1.1); MONO % 8 % (0-9); NEUT # 7.6 x10^3uL (1.8-7.7); NEUT % 85 % (31-73); PLATELET COUNT 198 x10^3/uL (140-400); RED BLOOD COUNT 3.13 x10^6/uL (4.30-5.70); RED CELL DISTRIBUTION WIDTH 16.1 % (11.5-14.5); WHITE BLOOD COUNT 8.9 x10^3/uL (4.0-11.0)
[2018-05-23 05:52] LABS: ALBUMIN 1.9 g/dL (3.4-5.0); CALCIUM 8.1 mg/dL (8.5-10.1); CREATININE 1.6 mg/dL (0.7-1.3); GFR 42.2
[2018-05-23 06:27] LABS: PROTHROMBIN TIME PATIENT 16.5 SEC (11.7-14.0)
[2018-05-23] MEDS: PIPERACILLIN/TAZOBACTAM 3.375 GM in IV NORMAL SALINE 50ML 50 ML IV SCH ×4 (06:38→23:54)
--- NOTE | 2018-05-23 07:16 | PDOC ---
Infectious Disease Note Subjective: Subjective Pt comfortable,says is doing ok pain is under control no fevers Vital Signs: Vital Signs Vital Signs Date Time Temp Pulse Resp B/P (MAP) Pulse Ox O2 Delivery O2 Flow Rate FiO2 05/23/18 06:05 94 14 108/79 (89) 94 Room Air 05/23/18 00:00 98.5 98.5 05/22/18 16:00 1.0 Physical Exam: PHYSICAL EXAM GENERAL: Resting quietly HEENT: Pupils equally round, reactive. Normal conjunctivae. Oral cavity, pharynx pink, dry NECK: Supple. LUNGS: Clear to auscultation. HEART: S1 and S2, soft murmur. Irregular. ABDOMEN: Obese, soft and nontender with bowel sounds present. GENITOURINARY: Indwelling Crawley in place. EXTREMITIES: Trace edema in lower extremities bilaterally. Rt BKA dressing and drain in place ,intact lt foot dressing intact, dry SKIN: Warm without rash. No peripheral stigmata. Several tattoos. NEUROLOGIC: Arouses to voice, Peripheral IV Medications: Inpatient Meds: Current Medications Medications (Trade) Dose Ordered Sig/Ana Start Time Stop Time Status Last Admin Dose Admin Acetaminophen (Tylenol Supp) 650 mg PRN Q6HRS PRN 05/20/18 01:15 05/20/18 01:31 650 MG Acetaminophen (Tylenol) 500 mg PRN Q6HRS PRN 05/18/18 16:15 05/20/18 20:08 500 MG Acetaminophen/ Codeine Phosphate (Tylenol #3) 1 tab PRN Q6HRS PRN 05/18/18 15:30 05/22/18 16:19 1 TAB Albuterol Sulfate (Ventolin Hfa) 2 puff PRN Q6HRS PRN 05/18/18 15:30 UNV Albuterol Sulfate (Ventolin Neb Soln) 2.5 mg PRN Q6HRS PRN 05/18/18 15:45 Albuterol/ Ipratropium (Duoneb) 3 ml Q4HRS W/A 05/18/18 18:00 05/22/18 19:50 3 ML Aspirin (Ecotrin) 81 mg [id number] 05/23/18 08:00 Atorvastatin Calcium (Lipitor) 80 mg QHS 05/18/18 21:00 05/22/18 21:25 80 MG Bacitracin 62466 unit/Sodium Chloride 500 ml @ 500 mls/hr 1X ONCE 05/21/18 12:40 05/21/18 13:39 DC Cefazolin Sodium 1 gm/Sodium Chloride 500 ml @ 500 mls/hr 1X ONCE 05/21/18 12:40 05/21/18 13:39 DC Daptomycin 590 mg/ Sodium Chloride 50 ml @ 100 mls/hr Q24H 05/20/18 12:00 05/22/18 13:54 100 MLS/HR Dexamethasone Sodium Phosphate (Decadron) 20 mg STK-MED ONCE 05/21/18 12:27 05/21/18 12:28 DC Dextrose (Dextrose 50%-Water Syringe) 12.5 gm PRN Q15MIN PRN 05/18/18 15:30 Digoxin (Lanoxin) 250 mcg 1X ONCE 05/22/18 12:30 05/22/18 12:31 DC 05/22/18 12:28 250 MCG Diltiazem HCl (Cardizem Iv Push) 10 mg 1X ONCE 05/18/18 15:30 05/18/18 15:31 DC Esmolol HCl (Brevibloc) 100 mg STK-MED ONCE 05/21/18 14:22 05/21/18 14:23 DC Famotidine (Pepcid Vial) 20 mg STK-MED ONCE 05/21/18 12:27 05/21/18 12:28 DC Fentanyl Citrate (Fentanyl 2ml Vial) 100 mcg STK-MED ONCE 05/21/18 12:27 05/21/18 12:28 DC Furosemide (Lasix) 40 mg 1X ONCE 05/19/18 08:45 05/19/18 08:46 DC 05/19/18 10:12 40 MG Gabapentin (Neurontin) 300 mg DAILY 05/19/18 09:00 05/22/18 08:23 300 MG Heparin Sodium (Porcine) (Heparin Sodium) 5,000 unit Q8HRS 05/19/18 14:00 05/19/18 14:00 DC Hydralazine HCl (Apresoline) 10 mg TID 05/18/18 16:00 05/22/18 21:27 10 MG Hydromorphone HCl (Dilaudid) 0.5 mg PRN Q10MIN PRN 05/21/18 09:45 05/22/18 09:44 DC Insulin Glargine (Lantus) 3 units 1X ONCE 05/21/18 22:00 05/22/18 01:31 DC 05/21/18 22:00 3 UNITS Insulin Human Lispro (HumaLOG) 0-9 UNITS TIDWMEALS 05/18/18 17:00 05/22/18 17:23 4 UNITS Labetalol HCl (Normodyne Iv Push) 5 mg 1X PACU PRN 05/21/18 15:30 05/22/18 09:09 DC 05/21/18 15:30 5 MG Levetiracetam (Keppra) 1,250 mg BID 05/18/18 21:00 05/22/18 21:25 1,250 MG Lidocaine HCl 20 ml STK-MED ONCE 05/21/18 11:42 05/21/18 12:42 DC Lidocaine HCl (Glydo (Lidocaine) Jelly) 1 vianney 1X ONCE 05/21/18 12:30 05/21/18 12:31 DC Lidocaine HCl (Lidocaine Pf 2% Vial) 5 ml STK-MED ONCE 05/21/18 12:27 05/21/18 12:28 DC Lidocaine HCl (Xylocaine-Mpf 1% 2ml Vial) 2 ml 1X PRN PRN 05/21/18 09:45 05/22/18 09:44 DC Lisinopril (Prinivil) 20 mg DAILY 05/19/18 09:00 05/19/18 10:14 20 MG Metformin HCl (Glucophage) 1,000 mg BIDWMEALS 05/18/18 17:00 05/22/18 16:20 1,000 MG Metoprolol Tartrate (Lopressor) 50 mg BID 05/18/18 21:00 05/22/18 21:28 50 MG Morphine Sulfate 30 ml @ 0 mls/hr CONT PRN PRN 05/21/18 15:00 Morphine Sulfate (Morphine Sulfate) 1 mg PRN Q10MIN PRN 05/21/18 09:45 05/22/18 09:44 DC Multivitamins (Thera M Plus) 1 tab DAILY 05/19/18 09:00 05/22/18 08:22 1 TAB Naloxone HCl (Narcan) 0.4 mg PRN Q2MIN PRN 05/21/18 15:00 Neomycin/ Polymyxin/ Bacitracin (Triple Antibiotic Ointment) 1 pkt STK-MED ONCE 05/21/18 13:38 05/21/18 14:38 DC 05/21/18 14:41 1 PKT Non-Formulary Medication (Rosuvastatin Calcium (Crestor)) 40 mg DAILY 05/19/18 09:00 UNV Ondansetron HCl (Zofran) 4 mg STK-MED ONCE 05/21/18 12:27 05/21/18 12:28 DC Oxycodone/ Acetaminophen (Percocet 10/325) 1 tab PRN Q6HRS PRN 05/18/18 15:30 05/22/18 17:50 1 TAB Oxycodone/ Acetaminophen (Percocet 5/325) 1 tab PRN Q4HRS PRN 05/18/18 15:30 UNV Phytonadione (Vitamin K Ampule) 10 mg 1X ONCE 05/19/18 10:15 05/19/18 10:16 UNV Phytonadione 5 mg/ Dextrose 50.5 ml @ 101 mls/hr 1X ONCE 05/20/18 10:30 05/20/18 10:59 DC 05/20/18 10:08 101 MLS/HR Piperacillin Sod/ Tazobactam Sod 3.375 gm/Sodium Chloride 50 ml @ 100 mls/hr Q6HRS 05/18/18 18:00 05/23/18 06:38 100 MLS/HR Piperacillin Sod/ Tazobactam Sod 4.5 gm/Sodium Chloride 100 ml @ 200 mls/hr 1X ONCE 05/18/18 13:00 05/18/18 13:29 DC 05/18/18 14:34 200 MLS/HR Potassium Chloride (Klor-Con) 40 meq 1X ONCE 05/19/18 08:30 05/19/18 08:31 DC 05/19/18 10:14 40 MEQ Prochlorperazine Edisylate (Compazine) 5 mg PACU PRN PRN 05/21/18 09:45 05/22/18 09:44 DC Propofol 20 ml @ As Directed STK-MED ONCE 05/21/18 12:27 05/21/18 12:28 DC Ringer's Solution 1,000 ml @ 30 mls/hr Q24H 05/21/18 09:39 4/16/19 00:37 DC Risperidone (RisperDAL) 1 mg QHS 05/18/18 21:00 05/22/18 21:24 1 MG Sevoflurane (Ultane) 90 ml STK-MED ONCE 05/21/18 14:40 05/21/18 14:41 DC Sodium Chloride 1,000 ml @ 25 mls/hr Q24H 05/21/18 14:57 Vancomycin HCl (Vanco Per Pharmacy) 1 each PRN DAILY PRN 05/19/18 10:00 05/20/18 10:42 DC 05/19/18 10:32 1 EACH Vancomycin HCl (Vancomycin Trough Level) 1 each 1X ONCE 05/20/18 16:30 05/20/18 16:30 DC Vancomycin HCl 1.75 gm/Sodium Chloride 500 ml @ 250 mls/hr Q24H 05/19/18 16:00 05/20/18 10:42 DC 05/19/18 16:59 250 MLS/HR Vancomycin HCl 2 gm/Sodium Chloride 500 ml @ 250 mls/hr 1X ONCE 05/18/18 13:15 05/18/18 15:14 DC 05/18/18 15:28 250 MLS/HR Warfarin Sodium (Coumadin Per Pharmacy) 1 each PRN DAILY PRN 05/22/18 15:00 05/22/18 14:59 1 EACH Warfarin Sodium (Coumadin Per Physician) 1 each PRN DAILY PRN 05/22/18 14:45 05/22/18 14:57 DC Warfarin Sodium (Coumadin) 4 mg 1X WARF ONCE 05/22/18 16:00 05/22/18 16:01 DC 05/22/18 16:19 4 MG Zonisamide (Zonegran) 400 mg DAILY 05/19/18 09:00 05/22/18 08:22 400 MG Labs: Lab Laboratory Tests Test 05/22/18 08:21 05/22/18 13:14 05/22/18 17:20 05/22/18 21:17 Glucose (Fingerstick) 220 mg/dL (70-99) 150 mg/dL (70-99) 163 mg/dL (70-99) 137 mg/dL (70-99) Test 05/23/18 05:05 White Blood Count 8.9 x10^3/uL (4.0-11.0) Red Blood Count 3.13 x10^6/uL (4.30-5.70) Hemoglobin 8.4 g/dL (13.0-17.5) Hematocrit 26.2 % (39.0-53.0) Mean Corpuscular Volume 84 fL (79-100) Mean Corpuscular Hemoglobin 27 pg (25-35) Mean Corpuscular Hemoglobin Concent 32 g/dL (31-37) Red Cell Distribution Width 16.1 % (11.5-14.5) Platelet Count 198 x10^3/uL (140-400) Neutrophils (%) (Auto) 85 % (31-73) Lymphocytes (%) (Auto) 6 % (24-48) Monocytes (%) (Auto) 8 % (0-9) Eosinophils (%) (Auto) 1 % (0-3) Basophils (%) (Auto) 0 % (0-3) Neutrophils # (Auto) 7.6 x10^3uL (1.8-7.7) Lymphocytes # (Auto) 0.5 x10^3/uL (1.0-4.8) Monocytes # (Auto) 0.8 x10^3/uL (0.0-1.1) Eosinophils # (Auto) 0.1 x10^3/uL (0.0-0.7) Basophils # (Auto) 0.0 x10^3/uL (0.0-0.2) Prothrombin Time 16.5 SEC (11.7-14.0) Prothromb Time International Ratio 1.4 (0.8-1.1) Sodium Level 138 mmol/L (136-145) Potassium Level 4.0 mmol/L (3.5-5.1) Chloride Level 100 mmol/L (98-107) Carbon Dioxide Level 27 mmol/L (21-32) Anion Gap 11 (6-14) Blood Urea Nitrogen 27 mg/dL (8-26) Creatinine 1.6 mg/dL (0.7-1.3) Estimated GFR (Cockcroft-Gault) 42.2 Glucose Level 127 mg/dL (70-99) Calcium Level 8.1 mg/dL (8.5-10.1) Phosphorus Level 2.0 mg/dL (2.6-4.7) Albumin 1.9 g/dL (3.4-5.0) Micro RUN DATE: 05/21/18 PAGE 1 RUN TIME: 1810 [facility] [address] [place] [address] Ge Barnett M.D., [employer] Operator PATIENT: VICKI BRAUN ACCT: [id number] LOC: 1 [facility] U : [id number] AGE/SX: 78/M ROOM: [facility] REG : 05/18/[address]: ARABELLA MARTINEZ MD : 1940 BED: 1 DIS : STATUS: ADM IN TLOC: SPEC #: [id number] ERI: 05/18/180 STATUS: RES REQ #: [id number] RECD: 05/18/18-[address] [facility] [address]: BOB BERRIOS MD SOURCE: BLOOD ENTR: 05/19/[address] [facility] [address]: MARITZA JONAS [facility]: ORDERED: BLD CULT - LC Procedure Result BLOOD CULTURE LC Preliminary Preliminary report BLD CULT RESULT 1 Preliminary Staphylococcus aureus Performed at: [facility] [address], [place], [place] [id number] Transfer Station Operator: LÁZARO Chong MD, Phone: [phone] RUN DATE: 05/21/18 PAGE 1 RUN TIME: 1514 [facility] [address] [place] [address] Ge Barnett M.D., [employer] Operator PATIENT: VICKI BRAUN Adiel ACCT: [id number] LOC: 1 [facility] U : [id number] AGE/SX: 78/M ROOM: 104 REG : 05/18/[address]: ARABELLA MARTINEZ MD : 1940 BED: 1 DIS : STATUS: ADM IN TLOC: SPEC #: [id number] ERI: 05/19/18 STATUS: RES REQ #: [id number] RECD: 05/19/[address] [facility] [address]: GIO GASPAR APRN SOURCE: ANKLE ENTR: 05/19/[address] [facility] [address]: DAYANA CATES MD [facility]: RODRIGUEZ RAO MD, VENKAT R MD TERMULO, CHERRIE Y MD ORDERED: ANAER/AEROB/GS Procedure Result ANAEROBIC-AEROBIC CULTURE PENDING ANAEROBIC RES 1 PENDING AEROBIC CULT PENDING AEROBIC RES 1 PENDING GRAM STAIN Final Final report GRAM STAIN RES 1 Final Comment Rare white blood cells. GRAM STAIN RES 2 Final Comment Few gram negative rods. Performed at: - [facility] [address] [facility] [address], [place], [place] [id number] Transfer Station Operator: LÁZARO Chong MD, Phone: [phone] RUN DATE: 05/19/18 PAGE 1 RUN TIME: 08 [facility] [address] [place] [address] Ge Barnett M.D., [employer] Operator PATIENT: VICKI BRAUN ACCT: [id number] LOC: 1 [facility] U : [id number] AGE/SX: 78/M ROOM: [facility] REG : 05/18/[address]: ARABELLA MARTINEZ MD : 1940 BED: 1 DIS : STATUS: ADM IN TLOC: SPEC #: [id number] ERI: 05/18/186069 STATUS: COMP REQ #: [id number] RECD: 05/18/18-[address] [facility] [address]: BOB BERRIOS MD SOURCE: BLOOD ENTR: 05/18/18-[address] [facility] [address]: MARITZA JONAS [facility]: ORDERED: BCULT Procedure Result BLOOD CULTURE Final GRAM POSITIVE COCCI IN CLUSTERS 2 SETS DRAWN, 4 OF 4 POSITIVE CALLED TO NENITA BETTS RN IN ICU BY Miguel LEMONS 05/19/18,0835 SPECIMEN SENDING TO [facility] FOR FURTHER WORK UP RUN DATE: 05/21/18 PAGE 1 RUN TIME: 1810 [facility] [address] [place] [address] Ge Barnett M.D., [employer] Operator PATIENT: VICKI BRAUN ACCT: [id number] LOC: 1 [place] [facility] U : [id number] AGE/SX: 78/M ROOM: 104 REG : 05/18/[address]: ARABELLA MARTINEZ MD : 1940 BED: 1 DIS : STATUS: ADM IN TLOC: SPEC #: [id number] ERI: 05/18/18 STATUS: RES REQ #: [id number] RECD: 05/18/[address] [facility] [address]: BOB BERRIOS MD SOURCE: BLOOD ENTR: 05/19/[address] [facility] [address]: MARITZA JONAS [facility]: ORDERED: BLD CULT - LC Procedure Result BLOOD CULTURE LC Preliminary Preliminary report BLD CULT RESULT 1 Preliminary Staphylococcus aureus Performed at: - [facility], [place], [place] [id number] Transfer Station Operator: LÁZARO Chong MD, Phone: [phone] Objective: Assessment: Fever resolved MRSA bacteremia (4 of 4 bottles) with sepsis, POA source possible Foot infection CRYSTAL done no vegetations 05/21 Severe PAD Infected necrotic ulcer left ankle s/p I and D 05/21 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 There is no significant aortic valvular stenosis. There is no aortic valvular vegetation. 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 Bioprosthesis leaflets are thin and move normally. Renal insufficiency/JIMMY Encephalopathy Coagulopathy, on chronic warfarin A- fib RVR Severe PAD s/p BLE stents and previous toe amputations Diabetes Type II h/o PSA ( R quinolones & I imipenem) h/o group B strep bacteremia, 2016 Plan: Plan of Care Continue Zosyn/Dapto off IV Vanc due to JIMMY D/W MICRO to check for dapto suscep wound culture GNR ID pending Repeat BC 05/20 pending UC pending Monitor labs and renal function closely Local wound care and offloading Critically ill D/W NESHA WONG MD May 23, 2018 07:16
[2018-05-23] MEDS: INSULIN LISPRO 300 UNITS/3 ML INSULN.PEN. SQ SCH ×4 (07:58→17:00)
--- NOTE | 2018-05-23 08:27 | PDOC ---
PROGRESS NOTES Chief Complaint Chief Complaint Severe sepsis cellulitis w/ gangrenous toes A. 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 CRYSTAL done concurrently showing EF 35-40%, no valvular vegetations noted. Overnight BP was low, blood glucose low. Today more alert. Some pain in entire right leg, marked weakness. Pt denies any chest pain - no palpitations. No nausea or vomiting or diarrhea. + dyspnea and weakness today Staph on blood cultures. MRSA on left ankle Plan: Cont empiric antibiotics - MRSA screen positive and GPC bacteremia, high risk MRSA, now on daptomycin and zosyn per ID consultation F/u cultures Blood glucose control Pain control HR control Vitals Vitals Vital Signs Date Time Temp Pulse Resp B/P (MAP) Pulse Ox O2 Delivery O2 Flow Rate FiO2 05/23/18 08:21 96 Room Air 05/23/18 06:05 94 14 108/79 (89) 05/23/18 00:00 98.5 98.5 05/22/18 16:00 1.0 Physical Exam Physical Exam GENERAL: Resting quietly HEENT: Pupils equally round, reactive. Normal conjunctivae. Oral cavity, pharynx pink, dry NECK: Supple. LUNGS: Clear to auscultation. HEART: S1 and S2, soft murmur. Irregular. ABDOMEN: Obese, soft and nontender with bowel sounds present. GENITOURINARY: Indwelling Crawley in place. EXTREMITIES: Trace edema in lower extremities bilaterally. Rt BKA dressing and drain in place ,intact lt foot dressing intact, dry SKIN: Warm without rash. No peripheral stigmata. Several tattoos. 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 and 2 gangrenous toes on the right, chronic hyperpigmentation bilateral shins and foot) Labs LABS Laboratory Tests Test 05/22/18 13:14 05/22/18 17:20 05/22/18 21:17 05/23/18 05:05 Glucose (Fingerstick) 150 mg/dL (70-99) 163 mg/dL (70-99) 137 mg/dL (70-99) White Blood Count 8.9 x10^3/uL (4.0-11.0) Red Blood Count 3.13 x10^6/uL (4.30-5.70) Hemoglobin 8.4 g/dL (13.0-17.5) Hematocrit 26.2 % (39.0-53.0) Mean Corpuscular Volume 84 fL (79-100) Mean Corpuscular Hemoglobin 27 pg (25-35) Mean Corpuscular Hemoglobin Concent 32 g/dL (31-37) Red Cell Distribution Width 16.1 % (11.5-14.5) Platelet Count 198 x10^3/uL (140-400) Neutrophils (%) (Auto) 85 % (31-73) Lymphocytes (%) (Auto) 6 % (24-48) Monocytes (%) (Auto) 8 % (0-9) Eosinophils (%) (Auto) 1 % (0-3) Basophils (%) (Auto) 0 % (0-3) Neutrophils # (Auto) 7.6 x10^3uL (1.8-7.7) Lymphocytes # (Auto) 0.5 x10^3/uL (1.0-4.8) Monocytes # (Auto) 0.8 x10^3/uL (0.0-1.1) Eosinophils # (Auto) 0.1 x10^3/uL (0.0-0.7) Basophils # (Auto) 0.0 x10^3/uL (0.0-0.2) Prothrombin Time 16.5 SEC (11.7-14.0) Prothromb Time International Ratio 1.4 (0.8-1.1) Sodium Level 138 mmol/L (136-145) Potassium Level 4.0 mmol/L (3.5-5.1) Chloride Level 100 mmol/L (98-107) Carbon Dioxide Level 27 mmol/L (21-32) Anion Gap 11 (6-14) Blood Urea Nitrogen 27 mg/dL (8-26) Creatinine 1.6 mg/dL (0.7-1.3) Estimated GFR (Cockcroft-Gault) 42.2 Glucose Level 127 mg/dL (70-99) Calcium Level 8.1 mg/dL (8.5-10.1) Phosphorus Level 2.0 mg/dL (2.6-4.7) Albumin 1.9 g/dL (3.4-5.0) Test 05/23/18 07:48 Glucose (Fingerstick) 108 mg/dL (70-99) Assessment and Plan Assessmemt and Plan Problems Medical Problems: (1) Fever Status: Acute (2) Gangrene of toe Status: Acute (3) Leukocytosis Status: Acute (4) Severe sepsis Status: Acute Comment Review of Relevant I have reviewed the following items navi (where applicable) has been applied. Labs Laboratory Tests Test 05/21/18 12:04 05/21/18 15:00 05/21/18 17:08 05/21/18 20:46 Glucose (Fingerstick) 110 mg/dL (70-99) 131 mg/dL (70-99) 142 mg/dL (70-99) 212 mg/dL (70-99) Test 05/21/18 21:21 05/22/18 05:30 05/22/18 08:21 05/22/18 13:14 O2 Saturation 95 % (92-99) Arterial Blood pH 7.38 (7.35-7.45) Arterial Blood pCO2 at Patient Temp 32 mmHg (35-46) Arterial Blood pO2 at Patient Temp 78 mmHg (65-108) Arterial Blood HCO3 19 mmol/L (21-28) Arterial Blood Base Excess -6 mmol/L (-3-3) FiO2 21 Sodium Level 140 mmol/L (136-145) Potassium Level 4.2 mmol/L (3.5-5.1) Chloride Level 101 mmol/L (98-107) Carbon Dioxide Level 23 mmol/L (21-32) Anion Gap 16 (6-14) Blood Urea Nitrogen 25 mg/dL (8-26) Creatinine 1.6 mg/dL (0.7-1.3) Estimated GFR (Cockcroft-Gault) 42.2 Glucose Level 219 mg/dL (70-99) Calcium Level 8.0 mg/dL (8.5-10.1) Magnesium Level 2.1 mg/dL (1.8-2.4) Glucose (Fingerstick) 220 mg/dL (70-99) 150 mg/dL (70-99) Test 05/22/18 17:20 05/22/18 21:17 05/23/18 05:05 05/23/18 07:48 Glucose (Fingerstick) 163 mg/dL (70-99) 137 mg/dL (70-99) 108 mg/dL (70-99) White Blood Count 8.9 x10^3/uL (4.0-11.0) Red Blood Count 3.13 x10^6/uL (4.30-5.70) Hemoglobin 8.4 g/dL (13.0-17.5) Hematocrit 26.2 % (39.0-53.0) Mean Corpuscular Volume 84 fL (79-100) Mean Corpuscular Hemoglobin 27 pg (25-35) Mean Corpuscular Hemoglobin Concent 32 g/dL (31-37) Red Cell Distribution Width 16.1 % (11.5-14.5) Platelet Count 198 x10^3/uL (140-400) Neutrophils (%) (Auto) 85 % (31-73) Lymphocytes (%) (Auto) 6 % (24-48) Monocytes (%) (Auto) 8 % (0-9) Eosinophils (%) (Auto) 1 % (0-3) Basophils (%) (Auto) 0 % (0-3) Neutrophils # (Auto) 7.6 x10^3uL (1.8-7.7) Lymphocytes # (Auto) 0.5 x10^3/uL (1.0-4.8) Monocytes # (Auto) 0.8 x10^3/uL (0.0-1.1) Eosinophils # (Auto) 0.1 x10^3/uL (0.0-0.7) Basophils # (Auto) 0.0 x10^3/uL (0.0-0.2) Prothrombin Time 16.5 SEC (11.7-14.0) Prothromb Time International Ratio 1.4 (0.8-1.1) Sodium Level 138 mmol/L (136-145) Potassium Level 4.0 mmol/L (3.5-5.1) Chloride Level 100 mmol/L (98-107) Carbon Dioxide Level 27 mmol/L (21-32) Anion Gap 11 (6-14) Blood Urea Nitrogen 27 mg/dL (8-26) Creatinine 1.6 mg/dL (0.7-1.3) Estimated GFR (Cockcroft-Gault) 42.2 Glucose Level 127 mg/dL (70-99) Calcium Level 8.1 mg/dL (8.5-10.1) Phosphorus Level 2.0 mg/dL (2.6-4.7) Albumin 1.9 g/dL (3.4-5.0) Laboratory Tests Test 05/22/18 13:14 05/22/18 17:20 05/22/18 21:17 05/23/18 05:05 Glucose (Fingerstick) 150 mg/dL (70-99) 163 mg/dL (70-99) 137 mg/dL (70-99) White Blood Count 8.9 x10^3/uL (4.0-11.0) Red Blood Count 3.13 x10^6/uL (4.30-5.70) Hemoglobin 8.4 g/dL (13.0-17.5) Hematocrit 26.2 % (39.0-53.0) Mean Corpuscular Volume 84 fL (79-100) Mean Corpuscular Hemoglobin 27 pg (25-35) Mean Corpuscular Hemoglobin Concent 32 g/dL (31-37) Red Cell Distribution Width 16.1 % (11.5-14.5) Platelet Count 198 x10^3/uL (140-400) Neutrophils (%) (Auto) 85 % (31-73) Lymphocytes (%) (Auto) 6 % (24-48) Monocytes (%) (Auto) 8 % (0-9) Eosinophils (%) (Auto) 1 % (0-3) Basophils (%) (Auto) 0 % (0-3) Neutrophils # (Auto) 7.6 x10^3uL (1.8-7.7) Lymphocytes # (Auto) 0.5 x10^3/uL (1.0-4.8) Monocytes # (Auto) 0.8 x10^3/uL (0.0-1.1) Eosinophils # (Auto) 0.1 x10^3/uL (0.0-0.7) Basophils # (Auto) 0.0 x10^3/uL (0.0-0.2) Prothrombin Time 16.5 SEC (11.7-14.0) Prothromb Time International Ratio 1.4 (0.8-1.1) Sodium Level 138 mmol/L (136-145) Potassium Level 4.0 mmol/L (3.5-5.1) Chloride Level 100 mmol/L (98-107) Carbon Dioxide Level 27 mmol/L (21-32) Anion Gap 11 (6-14) Blood Urea Nitrogen 27 mg/dL (8-26) Creatinine 1.6 mg/dL (0.7-1.3) Estimated GFR (Cockcroft-Gault) 42.2 Glucose Level 127 mg/dL (70-99) Calcium Level 8.1 mg/dL (8.5-10.1) Phosphorus Level 2.0 mg/dL (2.6-4.7) Albumin 1.9 g/dL (3.4-5.0) Test 05/23/18 07:48 Glucose (Fingerstick) 108 mg/dL (70-99) Microbiology 05/21/18 Blood Culture - Preliminary, Resulted NO GROWTH AFTER 2 DAYS 05/19/18 Urine Culture - Final, Complete 05/19/18 Urine Culture Result 1 (FELICITA) - Final, Complete 05/19/18 Anaerobic/Aerobic Culture, Resulted Pending 05/19/18 Anaerobic Culture Result 1 (FELICITA), Resulted Pending 05/19/18 Aerobic Culture - Preliminary, Resulted 05/19/18 Aerobic Culture Result 1 (FELICITA) - Preliminary, Resulted 05/19/18 Aerobic Culture Result 2 (FELICITA) - Preliminary, Resulted 05/19/18 Gram Stain - Final, Resulted 05/19/18 Gram Stain Result 1 (FELICITA) - Final, Resulted 05/19/18 Gram Stain Result 2 (FELICITA) - Final, Resulted Medications Current Medications Sodium Chloride 1,000 ml @ 2,190 mls/hr Q28M IV Last administered on at 14:36; Start 05/18/18 at 12:52; Stop 05/18/18 at 13:52; Status DC Piperacillin Sod/ Tazobactam Sod 4.5 gm/Sodium Chloride 100 ml @ 200 mls/hr 1X ONCE IV Last administered on 05/18/18at 14:34; Start 05/18/18 at 13:00; Stop 05/18/18 at 13:29; Status DC Vancomycin HCl (Vanco Per Pharmacy) 1 each 1X ONCE MC Last administered on 01/24at 13:00; Start 05/18/18 at 13:00; Stop 05/18/18 at 13:11; Status DC Vancomycin HCl 2 gm/Sodium Chloride 500 ml @ 250 mls/hr 1X ONCE IV Last administered on 05/18/18at 15:28; Start 05/18/18 at 13:15; Stop 05/18/18 at 15:14 ; Status DC Ondansetron HCl (Zofran) 4 mg PRN Q8HRS PRN IV NAUSEA/VOMITING; Start 05/18/18 at 14:45; Stop 05/18/18 at 15:28; Status DC Fentanyl Citrate (Fentanyl 2ml Vial) 50 mcg PRN Q1HR PRN IV PAIN; Start at 14:45; Stop 05/19/18 at 11:50; Status DC Sodium Chloride 1,000 ml @ 80 mls/hr [id number] IV ; Start 05/18/18 at 14:43; Stop 05/18/18 at 18:42; Status DC Acetaminophen (Tylenol) 650 mg 1X ONCE PO Last administered on 05/18/18at 15:29 ; Start 05/18/18 at 15:30; Stop 05/18/18 at 15:31; Status DC Ondansetron HCl (Zofran) 4 mg PRN Q6HRS PRN IV NAUSEA/VOMITING; Start 05/18/18 at 15:30 Diltiazem HCl (Cardizem Iv Push) 10 mg 1X ONCE IVP ; Start 05/18/18 at 15:30; Stop 05/18/18 at 15:31; Status DC Acetaminophen (Tylenol) 500 mg PRN Q6HRS PRN PO MILD PAIN / TEMP; Start at 15:30; Stop 05/18/18 at 16:14; Status DC Acetaminophen/ Codeine Phosphate (Tylenol #3) 1 tab PRN Q6HRS PRN PO MODERATE PAIN Last administered on 05/22/18 16:19; Start 05/18/18 at 15:30 Morphine Sulfate (Morphine Sulfate) 2 mg PRN Q2HR PRN IV PAIN Last administered on 05/21/18 11:48; Start 05/18/18 at 15:30 Oxycodone/ Acetaminophen (Percocet 5/325) 1 tab PRN Q4HRS PRN PO SEVERE PAIN Last administered on 05/23/18 02:46; Start 05/18/18 at 15:30 Albuterol Sulfate (Ventolin Hfa) 2 puff PRN Q6HRS PRN IH SHORTNESS OF BREATH; Start 05/18/18 at 15:30; Status UNV Digoxin (Lanoxin) 125 mcg DAILY PO ; Start 05/19/18 at 09:00; Stop 05/19/18 at 09:00; Status DC Furosemide (Lasix) 40 mg DAILY PO Last administered on 05/22/18 08:23; Start 05/19/18 at 09:00 Gabapentin (Neurontin) 300 mg DAILY PO Last administered on 05/22/18 08:23; Start 05/19/18 at 09:00 Lisinopril (Prinivil) 20 mg DAILY PO Last administered on 05/19/18 10:14; Start 05/19/18 at 09:00 Metoprolol Tartrate (Lopressor) 50 mg BID PO Last administered on 05/22/18 21: 28; Start 05/18/18 at 21:00 Oxycodone/ Acetaminophen (Percocet 10/325) 1 tab PRN Q6HRS PRN PO SEVERE PAIN ( 2ND Choice) Last administered on 05/22/18 17:50; Start 05/18/18 at 15:30 Oxycodone/ Acetaminophen (Percocet 5/325) 1 tab PRN Q4HRS PRN PO PAIN; Start at 15:30; Status UNV Acetaminophen (Tylenol) 500 mg PRN Q6HRS PRN PO MILD PAIN / TEMP Last administered on 05/20/18 20:08; Start 05/18/18 at 16:15 Atorvastatin Calcium (Lipitor) 80 mg QHS PO Last administered on 05/22/18 21: 25; Start 05/18/18 at 21:00 Hydralazine HCl (Apresoline) 10 mg TID PO Last administered on 05/22/18 21:27 ; Start 05/18/18 at 16:00 Insulin Human Lispro (HumaLOG) 10 units DAILYWBKFT SQ Last administered on 05/22 08:29; Start 05/18/18 at 17:00 Levetiracetam (Keppra) 1,250 mg BID PO Last administered on 05/22/18 21:25; Start 05/18/18 at 21:00 Metformin HCl (Glucophage) 1,000 mg BIDWMEALS PO Last administered on 16:20; Start 05/18/18 at 17:00 Multivitamins (Thera M Plus) 1 tab DAILY PO Last administered on 05/22/18 08: 22; Start 05/19/18 at 09:00 Potassium Chloride (Klor-Con) 20 meq DAILYWBKFT PO Last administered on 08:23; Start 05/19/18 at 08:00 Risperidone (RisperDAL) 1 mg QHS PO Last administered on 05/22/18 21:24; Start 05/18/18 at 21:00 Non-Formulary Medication (Rosuvastatin Calcium (Crestor)) 40 mg DAILY PO ; Start 05/19/18 at 09:00; Status UNV Zonisamide (Zonegran) 400 mg DAILY PO Last administered on 05/22/18 08:22; Start 05/19/18 at 09:00 Albuterol/ Ipratropium (Duoneb) 3 ml Q4HRS W/A NEB Last administered on at 19:50; Start 05/18/18 at 18:00 Insulin Human Lispro (HumaLOG) 0-9 UNITS TIDWMEALS SQ Last administered on 05/22 17:23; Start 05/18/18 at 17:00 Dextrose (Dextrose 50%-Water Syringe) 12.5 gm PRN Q15MIN PRN IV SEE COMMENTS; Start 05/18/18 at 15:30 Albuterol Sulfate (Ventolin Neb Soln) 2.5 mg PRN Q6HRS PRN NEB SHORTNESS OF BREATH; Start 05/18/18 at 15:45 Piperacillin Sod/ Tazobactam Sod 3.375 gm/Sodium Chloride 50 ml @ 100 mls/hr Q6HRS IV Last administered on 05/23/18at 06:38; Start 05/18/18 at 18:00 Potassium Chloride (Klor-Con) 40 meq 1X ONCE PO Last administered on at 10:14; Start 05/19/18 at 08:30; Stop 05/19/18 at 08:31; Status DC Heparin Sodium (Porcine) (Heparin Sodium) 5,000 unit Q8HRS SQ ; Start 05/19/18 at 14:00; Stop 05/19/18 at 14:00; Status DC Furosemide (Lasix) 40 mg 1X ONCE IVP Last administered on 05/19/18at 10:12; Start 05/19/18 at 08:45; Stop 05/19/18 at 08:46; Status DC Phytonadione (Vitamin K Ampule) 10 mg 1X ONCE SQ Last administered on at 10:16; Start 05/19/18 at 10:00; Stop 05/19/18 at 10:01; Status DC Vancomycin HCl (Vanco Per Pharmacy) 1 each PRN DAILY PRN MC SEE COMMENTS Last administered on 05/19/18at 10:32; Start 05/19/18 at 10:00; Stop 05/20/18 at 10:42 ; Status DC Phytonadione (Vitamin K Ampule) 10 mg 1X ONCE SQ ; Start 05/19/18 at 10:15; Stop 05/19/18 at 10:16; Status UNV Vancomycin HCl 1.75 gm/Sodium Chloride 500 ml @ 250 mls/hr Q24H IV Last administered on 05/19/18at 16:59; Start 05/19/18 at 16:00; Stop 05/20/18 at 10:42 ; Status DC Vancomycin HCl (Vancomycin Trough Level) 1 each 1X ONCE MC ; Start 05/20/18 at 16:30; Stop 05/20/18 at 16:30; Status DC Acetaminophen (Tylenol Supp) 650 mg PRN Q6HRS PRN AR MILD PAIN / TEMP Last administered on 05/20/18at 01:31; Start 05/20/18 at 01:15 Sodium Chloride 500 ml @ 333 mls/hr 1X ONCE IV Last administered on 4/14/ 19at 01:14; Start 05/20/18 at 01:15; Stop 05/20/18 at 02:45; Status DC Phytonadione 5 mg/ Dextrose 50.5 ml @ 101 mls/hr 1X ONCE IV Last administered on 05/20/18at 10:08; Start 05/20/18 at 10:30; Stop 05/20/18 at 10:59 ; Status DC Daptomycin 590 mg/ Sodium Chloride 50 ml @ 100 mls/hr Q24H IV Last administered on 05/22/18at 13:54; Start 05/20/18 at 12:00 Ondansetron HCl (Zofran) 4 mg PRN Q6HRS PRN IV NAUSEA/VOMITING; Start 05/21/18 at 09:45; Stop 05/22/18 at 09:44; Status DC Fentanyl Citrate (Fentanyl 2ml Vial) 25 mcg PRN Q5MIN PRN IV MILD PAIN; Start 05/21/18 at 09:45; Stop 05/22/18 at 09:44; Status DC Fentanyl Citrate (Fentanyl 2ml Vial) 50 mcg PRN Q5MIN PRN IV MODERATE TO SEVERE PAIN; Start 05/21/18 at 09:45; Stop 05/22/18 at 09:44; Status DC Morphine Sulfate (Morphine Sulfate) 1 mg PRN Q10MIN PRN IV SEVERE PAIN; Start 05/21/18 at 09:45; Stop 05/22/18 at 09:44; Status DC Ringer's Solution 1,000 ml @ 30 mls/hr Q24H IV ; Start 05/21/18 at 09:39; Stop 05/22/18 at 00:37; Status DC Lidocaine HCl (Xylocaine-Mpf 1% 2ml Vial) 2 ml 1X PRN PRN ID IV START; Start at 09:45; Stop 05/22/18 at 09:44; Status DC Hydromorphone HCl (Dilaudid) 0.5 mg PRN Q10MIN PRN IV SEV PAIN, Second choice; Start 05/21/18 at 09:45; Stop 05/22/18 at 09:44; Status DC Prochlorperazine Edisylate (Compazine) 5 mg PACU PRN PRN IV NAUSEA, MRX1; Start 05/21/18 at 09:45; Stop 05/22/18 at 09:44; Status DC Lidocaine HCl (Glydo (Lidocaine) Jelly) 1 vianney 1X ONCE MM ; Start 05/21/18 at 12 :30; Stop 05/21/18 at 12:31; Status DC Propofol 20 ml @ As Directed STK-MED ONCE IV ; Start 05/21/18 at 12:27; Stop at 12:28; Status DC Dexamethasone Sodium Phosphate (Decadron) 20 mg STK-MED ONCE .ROUTE ; Start at 12:27; Stop 05/21/18 at 12:28; Status DC Famotidine (Pepcid Vial) 20 mg STK-MED ONCE .ROUTE ; Start 05/21/18 at 12:27; Stop 05/21/18 at 12:28; Status DC Lidocaine HCl (Lidocaine Pf 2% Vial) 5 ml STK-MED ONCE .ROUTE ; Start 05/21/18 at 12:27; Stop 05/21/18 at 12:28; Status DC Ondansetron HCl (Zofran) 4 mg STK-MED ONCE .ROUTE ; Start 05/21/18 at 12:27; Stop 05/21/18 at 12:28; Status DC Fentanyl Citrate (Fentanyl 2ml Vial) 100 mcg STK-MED ONCE .ROUTE ; Start at 12:27; Stop 05/21/18 at 12:28; Status DC Bacitracin 15550 unit/Sodium Chloride 500 ml @ 500 mls/hr 1X ONCE IRR ; Start 05/21/18 at 12:40; Stop 05/21/18 at 13:39; Status DC Cefazolin Sodium 1 gm/Sodium Chloride 500 ml @ 500 mls/hr 1X ONCE IRR ; Start 05/21/18 at 12:40; Stop 05/21/18 at 13:39; Status DC Lidocaine HCl 20 ml STK-MED ONCE .ROUTE ; Start 05/21/18 at 11:42; Stop at 12:42; Status DC Esmolol HCl (Brevibloc) 100 mg STK-MED ONCE IVP ; Start 05/21/18 at 13:01; Stop 05/21/18 at 13:02; Status DC Esmolol HCl (Brevibloc) 100 mg STK-MED ONCE IVP ; Start 05/21/18 at 14:22; Stop 05/21/18 at 14:23; Status DC Neomycin/ Polymyxin/ Bacitracin (Triple Antibiotic Ointment) 1 pkt STK-MED ONCE TP Last administered on 05/21/18at 14:41; Start 05/21/18 at 13:38; Stop at 14:38; Status DC Sevoflurane (Ultane) 90 ml STK-MED ONCE IH ; Start 05/21/18 at 14:40; Stop 05/21 at 14:41; Status DC Naloxone HCl (Narcan) 0.4 mg PRN Q2MIN PRN IV SEE INSTRUCTIONS; Start 05/21/18 at 15:00 Sodium Chloride 1,000 ml @ 25 mls/hr Q24H IV ; Start 05/21/18 at 14:57 Morphine Sulfate 30 ml @ 0 mls/hr CONT PRN PRN IV PER PROTOCOL; Start 05/21/18 at 15:00 Labetalol HCl (Normodyne Iv Push) 20 mg PRN Q2HR PRN IVP HYPERTENSION, SEE COMMENTS; Start 05/21/18 at 15:30 Labetalol HCl (Normodyne Iv Push) 5 mg 1X PACU PRN IVP tachycardia and HTN Last administered on 05/21/18at 15:30; Start 05/21/18 at 15:30; Stop 05/22/18 at 09:09; Status DC Insulin Glargine (Lantus) 3 units 1X ONCE SQ Last administered on 05/21/18at 22 :00; Start 05/21/18 at 22:00; Stop 05/22/18 at 01:31; Status DC Aspirin (Ecotrin) 81 mg DAILYWBKFT PO ; Start 05/23/18 at 08:00 Digoxin (Lanoxin) 250 mcg 1X ONCE IV Last administered on 05/22/18at 12:28; Start 05/22/18 at 12:30; Stop 05/22/18 at 12:31; Status DC Warfarin Sodium (Coumadin) 6 mg DAILY16 PO ; Start 05/22/18 at 16:00; Stop 05/22 at 16:00; Status DC Warfarin Sodium (Coumadin) 2.5 mg 3X/WEEK PO ; Start 05/23/18 at 09:00; Status UNV Warfarin Sodium (Coumadin Per Physician) 1 each PRN DAILY PRN MC SEE COMMENTS; Start 05/22/18 at 14:45; Stop 05/22/18 at 14:57; Status DC Warfarin Sodium (Coumadin Per Pharmacy) 1 each PRN DAILY PRN MC SEE COMMENTS Last administered on 05/22/18at 14:59; Start 05/22/18 at 15:00 Warfarin Sodium (Coumadin) 4 mg 1X WARF ONCE PO Last administered on at 16:19; Start 05/22/18 at 16:00; Stop 05/22/18 at 16:01; Status DC Active Scripts Active Digoxin 125 Mcg Tablet 125 Mcg PO DAILY Furosemide 40 Mg Tablet 40 Mg PO DAILY Metoprolol Tartrate 50 Mg Tablet 50 Mg PO BID [Warfarin Sodium] 1 EACH Each 1 Each MC PRN DAILY PRN Lisinopril 20 Mg Tablet 20 Mg PO DAILY Duoneb 0.5-3(2.5) Mg/3 Ml (Albuterol/Ipratropium) 3 Ml Ampul.neb 3 Ml NEB Q4HRS W/A 30 Days Hydralazine Hcl 10 Mg Tablet 10 Mg PO TID Reported Zonisamide 100 Mg Capsule 400 Mg PO DAILY Percocet 5-325 Mg Tablet (Oxycodone/Acetaminophen) 1 Each Tablet 1 Tab PO PRN Q4HRS PRN Multivitamins (Multivitamin) 1 Each Tablet 1 Tab PO DAILY Levetiracetam 250 Mg Tablet 1,250 Mg PO BID Novolin N (Nph, Human Insulin Isophane) 100 Unit/1 Ml Vial Unknown Dose SQ Atorvastatin Calcium 80 Mg Tablet 1 Tab PO DAILY Acetaminophen 500 Mg Tablet 1 Tab PO PRN Q6HRS PRN Albuterol Sulfate Hfa Inhaler (Albuterol Sulfate) 8.5 Gm Hfa.aer.ad 2 Puff IH PRN Q6HRS PRN Aspirin Ec (Aspirin) 325 Mg Tablet.dr 81 Mg PO DAILY Crestor (Rosuvastatin Calcium) 40 Mg Tablet 40 Mg PO DAILY Warfarin Sodium 5 Mg Tablet 6 Mg PO DAILY Warfarin Sodium 2.5 Mg Tablet 2.5 Mg PO 3X/WEEK monday,monday, Gabapentin (Gabapentin) 300 Mg Capsule 300 Mg PO DAILY Risperidone 1 Mg Tablet 1 Mg PO HS Novolog (Insulin Aspart) 100 Unit/1 Ml Vial 10 Unit SQ DAILYAC Oxycodone-Acetaminophen 10-325 (Oxycodone Hcl/Acetaminophen) 1 Each Tablet 1 Each PO PRN Q6HRS Potassium 99 Mg Tablet 20 Meq PO DAILY Prednisone (Prednisone) 10 Mg Tablet 10 Mg PO DAILY Metformin Hcl 500 Mg Tablet 1,000 Mg PO BIDBFRMEAL Vitals/I & O Vital Sign - Last 24 Hours 05/22/18 05/22/18 05/22/18 05/22/18 09:00 09:24 10:00 11:00 Temp 98.3 98.3 Pulse 96 138 136 Resp 22 16 14 B/P (MAP) 149/64 (92) 129/60 (83) 142/117 (125) Pulse Ox 100 100 100 O2 Delivery Nasal Cannula Nasal Cannula Nasal Cannula O2 Flow Rate 2.0 2.0 2.0 2.0 05/22/18 05/22/18 05/22/18 05/22/18 11:26 11:46 12:00 12:00 Pulse 135 134 Resp 13 B/P (MAP) 146/107 138/109 (119) Pulse Ox 100 O2 Delivery Nasal Cannula Nasal Cannula Nasal Cannula O2 Flow Rate 1.0 2.0 1.0 05/22/18 05/22/18 05/22/18 05/22/18 12:28 13:00 13:00 14:00 Pulse 135 132 102 Resp 12 12 B/P (MAP) 107/56 (73) 201/155 (170) Pulse Ox 99 100 O2 Delivery Nasal Cannula Nasal Cannula Nasal Cannula O2 Flow Rate 1.0 1.0 1.0 05/22/18 05/22/18 05/22/18 05/22/18 14:21 15:20 16:00 16:00 Pulse 87 68 64 Resp 12 18 B/P (MAP) 214/148 118/60 (79) 108/51 (70) Pulse Ox 100 100 O2 Delivery Nasal Cannula Nasal Cannula O2 Flow Rate 1.0 1.0 1.0 05/22/18 05/22/18 05/22/18 05/22/18 16:00 16:19 17:07 17:19 Pulse 68 Resp 20 18 18 B/P (MAP) 121/37 (65) Pulse Ox 100 100 97 O2 Delivery Nasal Cannula Room Air Room Air Room Air O2 Flow Rate 1.0 4/16/19 4/16/19 4/16/19 4/16/19 17:50 18:11 18:50 19:00 Temp 97.9 98.1 97.9 98.1 Pulse 75 68 Resp 18 18 16 B/P (MAP) 112/54 (73) 96/49 (65) Pulse Ox 100 100 100 100 O2 Delivery Room Air Room Air Room Air Room Air 05/22/18 05/22/18 05/22/18 05/22/18 19:50 20:00 21:00 21:27 Pulse 84 88 75 Resp 12 12 B/P (MAP) 119/49 (72) 82/56 (65) 117/45 Pulse Ox 93 100 100 O2 Delivery Room Air Room Air Room Air 05/22/18 05/22/18 05/22/18 05/23/18 21:28 22:04 23:07 00:00 Temp 98.4 98.5 98.4 98.5 Pulse 75 78 67 75 Resp 16 12 18 B/P (MAP) 117/45 115/94 (101) 102/54 (70) 102/46 (64) Pulse Ox 100 100 100 O2 Delivery Room Air Room Air Room Air 05/23/18 05/23/18 05/23/18 05/23/18 01:04 02:06 02:46 03:00 Pulse 66 67 76 Resp 20 12 16 B/P (MAP) 118/57 (77) 118/52 (74) 117/57 (77) Pulse Ox 100 100 100 100 O2 Delivery Room Air Room Air Nasal Cannula Room Air 05/23/18 05/23/18 05/23/18 05/23/18 03:46 04:02 05:03 06:05 Pulse 14 90 94 Resp 16 14 14 B/P (MAP) 118/57 (77) 101/46 (64) 108/79 (89) Pulse Ox 100 92 96 94 O2 Delivery Room Air Room Air Room Air Room Air 05/23/18 08:21 Pulse Ox 96 O2 Delivery Room Air Intake and Output 05/22/18 05/22/18 05/23/18 14:59 22:59 06:59 Intake Total 300 ml 370 ml 490 ml Output Total 870 ml 575 ml 395 ml Balance -570 ml -205 ml 95 ml Nutrition Consultation Dietary Evaluation: Recommendations by RD: Increase Calorie Intake, Protein supplementation Comments: REC ADA/cardiac diet per pmhx, will adjust diet order REC Cristhian BID REC continue MVI Expected Outcomes/Goals: PO intake to meet >75% est needs Malnutrition Findings: Food and Nutrition Intake (Mod: <75% est energy req 7days Weight Status: Appropriate NEHAL NELSON MD May 23, 2018 08:27
[2018-05-23] MEDS: IPRATRPIUM/ALBUTEROL 0.5/2.5MG 3 ML NEBU. NEB SCH ×4 (08:33→19:44)
[2018-05-23] MEDS: POTASSIUM CHLORIDE 20 MEQ TABLET.ER. PO SCH (08:41)
[2018-05-23] MEDS: METOPROLOL TART IMMED RELEASE 50 MG TABLET. PO SCH ×2 (08:42→21:00)
[2018-05-23] MEDS: FUROSEMIDE 40 MG TABLET. PO SCH (08:42)
[2018-05-23] MEDS: ASPIRIN ENTERIC COATED 81 MG TABLET.DR. PO SCH (08:42)
[2018-05-23] MEDS: metFORMIN 500 MG TABLET PO SCH ×2 (08:42→17:00)
[2018-05-23] MEDS: GABAPENTIN 300 MG CAPSULE. PO SCH (08:50)
[2018-05-23] MEDS: levETIRAcetam 250 MG TABLET PO SCH ×2 (08:50→21:00)
[2018-05-23] MEDS: ZONISAMIDE 100 MG CAPSULE. PO SCH (08:50)
[2018-05-23] MEDS: MULTIVITAMIN with MINERAL TABLET. PO SCH (08:50)
[2018-05-23] MEDS: LISINOPRIL 20 MG TABLET PO SCH (09:00)
[2018-05-23] MEDS ORDERED: WARFARIN 2.5 MG TABLET. PO SCH (09:00)
[2018-05-23] MEDS: hydrALAZINE 10 MG TABLET PO SCH ×3 (09:00→21:00)
--- NOTE | 2018-05-23 09:08 | NUR ---
IP: Pt is mrsa + in blood requiring contact precautions.
--- NOTE | 2018-05-23 10:08 | NUR ---
Pharmacy Warfarin Dosing Note S:Pharmacy consulted to assist with anticoagulation therapy started with target INR: 2 -3 O:VICKI BRAUN is a 78 year old M with Atrial Fibrillation LABS: Last INR: 1.4 Last HGB: 8.4 Last HCT: 26.2 Last PLT: 198 Last dose of 4 mg given on 05/22/18 at 1619 Previous Regimen: 4mg/day except 2 mg Sat/Sun Vitamin K given: Y 05/19: 10 MG SUB-Q, 05/20: 5 MG IV Drug Interaction Changes: New Interacting Drug Ongoing Drug Interactions: Zosyn A:INR of 1.4 is below desired range. Target range for this patient is: 2 -3 P: Warfarin dose: 4 mg Today at 1600 Bridge Therapy: None Next INR due TOMORROW. Pharmacy anticoagulation service will continue to follow. NENITA LAM [facility], 05/23/18 9921
--- NOTE | 2018-05-23 11:41 | PDOC ---
Provider Note Provider Note S: Pt doing well, without complaints of pain today. Minimal out of MG overnight. O: VSS - tachycardic, afebrile respirations non labored Abdomen obese, soft, nontender Right BKA dressing removed, MG removed. Incision clean, dry and intact without surrounding erythema. Right knee able to extend fully, with some resistance Left foot dressing removed, wound bed pink, without significant erythema. Left pedal edema A/P: POD#2 of right BKA and left lateral foot debridement - Pt in ICU. Pain controlled. Ok to move to floor from vasc surg standpoint once medically stable, per primary/cardio. - PT when more stable, rigid rooke boot to be placed today. Preventative measures for flexion contracture. - Offload left lateral heel wound - Discussed with LA ONEAL May 23, 2018 11:41
--- NOTE | 2018-05-23 12:46 | NUR ---
PATIENTS' BLOOD SUGAR LEVEL 47, PATIENT ALERT AND VERBALLY RESPONSIVE, AT THE BEDSIDE 240 CC. OF APPLE JUICE GIVEN AND FEEDING PATIENT HIS LUNCH AT THE TIME, WILL NOTIFY DR. JANE.
--- NOTE | 2018-05-23 12:46 | NUR ---
PATIENTS' BLOOD SUGAR LEVEL PER FINGERSTICK IS 47, PATIENT EXHIBITS NO S/S OF HYPOGLYCEMIA, AT THE BEDSIDE AND FEEDING PATIENT HIS LUNCH, APPLE JUICE 240CC AND ICE TEA GIVEN WITH REGULAR SUGAR PACKETSX2, WILL RECHECK BLOOD SUGAR AND NOTIFY DR. JANE.
[2018-05-23] MEDS: DEXTROSE 50% 25 GM / 50ML DISP.SYRIN. IV PRN (13:15)
--- NOTE | 2018-05-23 13:30 | NUR ---
PATIENTS' BLOOD SUGAR 73 AT THIS TIME AND PATIENT CONSUMED LESS THAN 30% OF LUNCH, WILL ADMINISTER IV DEXTROSE PER PROTOCAL, PATIENT SLIGHTLY DROWSY AT THIS TIME AND WILL NOT CONSUME FOOD OR LIQUIDS.
[2018-05-23] MEDS: DAPTOmycin (GENERIC) IVPB 590 MG in IV NORMAL SALINE 50ML 50 ML IV SCH (13:39)
--- NOTE | 2018-05-23 13:39 | NUR ---
PATIENTS' BLOOD SUGAR 73 AT THIS TIME AND PATIENT CONSUMED LESS THAN 40% OF HIS LUNCH, NO INSULIN GIVEN AT THIS TIME, WILL ADMINISTER 1/2 AMP IV DEXTROSE.
[2018-05-23] MEDS ORDERED: IV RINGERS,LACTATED 1000ML 1,000 ML IV SCH (13:45)
--- NOTE | 2018-05-23 14:21 | NUR ---
IV DEXTROSE WAS GIVEN PER THIS SENIOR JAVA ARCHITECT AND PATIENTS BLOOD SUGAR IS 127 AT THIS TIME, NO INSULIN GIVEN, WILL MONITOR.
--- NOTE | 2018-05-23 14:52 | NUR ---
SS following up with discharge planning. Pt was on services with [facility], ; fax [phone], prior to admitting to hospital. Pt's family wanting resumption of care once discharged from the hospital. SS will continue to follow for discharge planning.
[2018-05-23] MEDS: IV RINGERS,LACTATED 1000ML 1,000 ML IV SCH (15:26)
[2018-05-23] MEDS ORDERED: WARFARIN 4 MG TABLET. PO ONE (16:00)
--- NOTE | 2018-05-23 16:07 | PATHOLOGY ---
[facility] Accession Number: [id number] . 01 Material submitted: . leg - RIGHT BELOW THE KNEE AMPUTATION. Modifiers: right . 01 Clinical history: . PVD, diabetes, CABG with valve, CHF, gangrene . 02 Diagnosis: Right leg below knee amputation: - Gangrenous necrosis of third, fourth and fifth toes. - Status post previous amputation of first and second toes. - Gangrenous necrosis and ulceration of heel with acute cellulitis and focal underlying acute osteomyelitis. - Calcification and focal marked luminal stenosis of anterior and posterior tibial arteries. - Proximal amputation margin viable. (JPM:pit 05/23/2018) QTP/05/23/2018 . 02 Electronically signed: . Ge Barnett MD, Pathologist NPI- [id number] . 01 Gross description: . Received fresh in a red biohazard bag labeled "Nelson Neri, right below the knee amputation" is a right below the knee amputation specimen measuring 31.5 cm heel to skin resection margin and 22.0 cm heel to middle toe. Protruding from the proximal resection margin is the tibia (3.2 cm in length and 4.2 cm in width) and fibula 3.0 cm in length and 1.2 cm in width). Three toes are present (third, fourth, and fifth) which are gangrenous, black-brown, and crusted. Toes one and twi are absent. There is an ulcerated lesion at the site of toe one (2.5 x 1.8 cm) which extends greater than 15 cm from the skin soft tissue margin. Also present on the heel is an ulcerated lesion (3.8 x 3.8 cm) which extends greater than 10 cm from the skin soft tissue margin and appears to extend to the underlying bone. Both the bone and skin soft tissue margins appear viable. The remaining skin is hernández with extensive brown raised lesions on the dorsal aspect of the foot. The anterior and posterior artery vasculature display calcified lumens. Real Estate Teacher sections are submitted as follows: . A1: Skin soft tissue margin A2: Proximal bone marrow A3: Ulcerated heel lesion and dorsal foot lesions A4: Bone deep to heel lesion following decalcification A5: Anterior and posterior arteries following decalcification (SDY; 05/22/2018) SYU/SYU . 02 Pathologist provided ICD-10: I70.261, M86.171 . 02 CPT . 883680, 215635 Specimen Comment: A courtesy copy of this report has been sent to Specimen Comment: [phone], , . Specimen Comment: Report sent to ,DR MARTINEZ / DR BERRIOS Performed at: 01 [facility] [address], [place] [id number] MD Zander Wilson MD Phone: [phone] Performed at: 02 [facility] [address], [place] [id number] MD Ge Barnett MD Phone: [phone]
[2018-05-23] MEDS: ACETAMINOPHEN 650 MG SUPP.RECT. PR PRN ×2 (17:34→23:33)
[2018-05-23] MEDS ORDERED: DEXTROSE 50% 25 GM / 50ML DISP.SYRIN. IV ONE (17:45)
--- NOTE | 2018-05-23 18:00 | NUR ---
METFORMIN AND WARFARIN HELD AT THIS TIME DUE TO PATIENT DROWSY AND NOT ALERT ENOUGH TO TAKE HIS MEDICATIONS.
--- NOTE | 2018-05-23 19:05 | PDOC ---
CARDIOLOGY PROGRESS NOTE SUBJECTIVE: No events overnight. Today on the floor is more somnolent like yesterday Mild fever. OBJECTIVE: Vital SIgns: Vital Signs Date Time Temp Pulse Resp B/P (MAP) Pulse Ox O2 Delivery O2 Flow Rate FiO2 05/23/18 18:10 100.6 73 18 119/47 (71) 93 Nasal Cannula 1.0 100.6 I & O Intake and Output 05/23/18 07:00 Intake Total 1160 ml Output Total 1840 ml Balance -680 ml Intake Oral 1160 ml Output Urine Total 1780 ml Drainage Total 60 ml # Bowel Movements 1 Objective: Somnolent but arousable. No changes on cardiac exam. Lung rodriguez are notable for rhonchi CURRENT MEDICATIONS: Current Medications Medications (Trade) Dose Ordered Sig/Ana Start Time Stop Time Status Last Admin Dose Admin Acetaminophen (Tylenol Supp) 650 mg PRN Q6HRS PRN 05/20/18 01:15 05/23/18 17:34 650 MG Acetaminophen (Tylenol) 500 mg PRN Q6HRS PRN 05/18/18 16:15 05/20/18 20:08 500 MG Acetaminophen/ Codeine Phosphate (Tylenol #3) 1 tab PRN Q6HRS PRN 05/18/18 15:30 05/22/18 16:19 1 TAB Albuterol Sulfate (Ventolin Hfa) 2 puff PRN Q6HRS PRN 05/18/18 15:30 UNV Albuterol Sulfate (Ventolin Neb Soln) 2.5 mg PRN Q6HRS PRN 05/18/18 15:45 Albuterol/ Ipratropium (Duoneb) 3 ml Q4HRS W/A 05/18/18 18:00 05/23/18 15:53 3 ML Aspirin (Ecotrin) 81 mg DAILYWBKFT 05/23/18 08:00 05/23/18 08:42 81 MG Atorvastatin Calcium (Lipitor) 80 mg QHS 05/18/18 21:00 05/22/18 21:25 80 MG Bacitracin 53417 unit/Sodium Chloride 500 ml @ 500 mls/hr 1X ONCE 05/21/18 12:40 05/21/18 13:39 DC Cefazolin Sodium 1 gm/Sodium Chloride 500 ml @ 500 mls/hr 1X ONCE 05/21/18 12:40 05/21/18 13:39 DC Daptomycin 590 mg/ Sodium Chloride 50 ml @ 100 mls/hr Q24H 05/20/18 12:00 05/23/18 13:39 100 MLS/HR Dexamethasone Sodium Phosphate (Decadron) 20 mg STK-MED ONCE 05/21/18 12:27 05/21/18 12:28 DC Dextrose (Dextrose 50%-Water Syringe) 25 gm 1X ONCE 05/23/18 17:45 05/23/18 17:46 DC Digoxin (Lanoxin) 250 mcg 1X ONCE 05/22/18 12:30 05/22/18 12:31 DC 05/22/18 12:28 250 MCG Diltiazem HCl (Cardizem Iv Push) 10 mg 1X ONCE 05/18/18 15:30 05/18/18 15:31 DC Esmolol HCl (Brevibloc) 100 mg STK-MED ONCE 05/21/18 14:22 05/21/18 14:23 DC Famotidine (Pepcid Vial) 20 mg STK-MED ONCE 05/21/18 12:27 05/21/18 12:28 DC Fentanyl Citrate (Fentanyl 2ml Vial) 100 mcg STK-MED ONCE 05/21/18 12:27 05/21/18 12:28 DC Furosemide (Lasix) 40 mg 1X ONCE 05/19/18 08:45 05/19/18 08:46 DC 05/19/18 10:12 40 MG Gabapentin (Neurontin) 300 mg DAILY 05/19/18 09:00 05/23/18 08:50 300 MG Heparin Sodium (Porcine) (Heparin Sodium) 5,000 unit Q8HRS 05/19/18 14:00 05/19/18 14:00 DC Hydralazine HCl (Apresoline) 10 mg TID 05/18/18 16:00 05/22/18 21:27 10 MG Hydromorphone HCl (Dilaudid) 0.5 mg PRN Q10MIN PRN 05/21/18 09:45 05/22/18 09:44 DC Insulin Glargine (Lantus) 3 units 1X ONCE 05/21/18 22:00 05/22/18 01:31 DC 05/21/18 22:00 3 UNITS Insulin Human Lispro (HumaLOG) 7 units DAILYWBKFT 05/24/18 08:00 Labetalol HCl (Normodyne Iv Push) 5 mg 1X PACU PRN 05/21/18 15:30 05/22/18 09:09 DC 05/21/18 15:30 5 MG Levetiracetam (Keppra) 1,250 mg BID 05/18/18 21:00 05/23/18 08:50 1,250 MG Lidocaine HCl 20 ml STK-MED ONCE 05/21/18 11:42 05/21/18 12:42 DC Lidocaine HCl (Glydo (Lidocaine) Jelly) 1 vianney 1X ONCE 05/21/18 12:30 05/21/18 12:31 DC Lidocaine HCl (Lidocaine Pf 2% Vial) 5 ml STK-MED ONCE 05/21/18 12:27 05/21/18 12:28 DC Lidocaine HCl (Xylocaine-Mpf 1% 2ml Vial) 2 ml 1X PRN PRN 05/21/18 09:45 05/22/18 09:44 DC Lisinopril (Prinivil) 20 mg DAILY 05/19/18 09:00 05/19/18 10:14 20 MG Metformin HCl (Glucophage) 1,000 mg BIDWMEALS 05/18/18 17:00 05/23/18 08:42 1,000 MG Metoprolol Tartrate (Lopressor) 50 mg BID 05/18/18 21:00 05/23/18 08:42 50 MG Morphine Sulfate 30 ml @ 0 mls/hr CONT PRN PRN 05/21/18 15:00 Morphine Sulfate (Morphine Sulfate) 1 mg PRN Q10MIN PRN 05/21/18 09:45 05/22/18 09:44 DC Multivitamins (Thera M Plus) 1 tab DAILY 05/19/18 09:00 05/23/18 08:50 1 TAB Naloxone HCl (Narcan) 0.4 mg PRN Q2MIN PRN 05/21/18 15:00 Neomycin/ Polymyxin/ Bacitracin (Triple Antibiotic Ointment) 1 pkt STK-MED ONCE 05/21/18 13:38 05/21/18 14:38 DC 05/21/18 14:41 1 PKT Non-Formulary Medication (Rosuvastatin Calcium (Crestor)) 40 mg DAILY 05/19/18 09:00 UNV Ondansetron HCl (Zofran) 4 mg STK-MED ONCE 05/21/18 12:27 05/21/18 12:28 DC Oxycodone/ Acetaminophen (Percocet 10/325) 1 tab PRN Q6HRS PRN 05/18/18 15:30 05/22/18 17:50 1 TAB Oxycodone/ Acetaminophen (Percocet 5/325) 1 tab PRN Q4HRS PRN 05/18/18 15:30 UNV Phytonadione (Vitamin K Ampule) 10 mg 1X ONCE 05/19/18 10:15 05/19/18 10:16 UNV Phytonadione 5 mg/ Dextrose 50.5 ml @ 101 mls/hr 1X ONCE 05/20/18 10:30 05/20/18 10:59 DC 05/20/18 10:08 101 MLS/HR Piperacillin Sod/ Tazobactam Sod 3.375 gm/Sodium Chloride 50 ml @ 100 mls/hr Q6HRS 05/18/18 18:00 05/23/18 17:33 100 MLS/HR Piperacillin Sod/ Tazobactam Sod 4.5 gm/Sodium Chloride 100 ml @ 200 mls/hr 1X ONCE 05/18/18 13:00 05/18/18 13:29 DC 05/18/18 14:34 200 MLS/HR Potassium Chloride (Klor-Con) 40 meq 1X ONCE 05/19/18 08:30 05/19/18 08:31 DC 05/19/18 10:14 40 MEQ Prochlorperazine Edisylate (Compazine) 5 mg PACU PRN PRN 05/21/18 09:45 05/22/18 09:44 DC Propofol 20 ml @ As Directed STK-MED ONCE 05/21/18 12:27 05/21/18 12:28 DC Ringer's Solution 1,000 ml @ 75 mls/hr [id number] 05/23/18 14:00 05/23/18 15:26 75 MLS/HR Risperidone (RisperDAL) 1 mg QHS 05/18/18 21:00 05/22/18 21:24 1 MG Sevoflurane (Ultane) 90 ml STK-MED ONCE 05/21/18 14:40 05/21/18 14:41 DC Sodium Chloride 1,000 ml @ 25 mls/hr Q24H 05/21/18 14:57 Vancomycin HCl (Vanco Per Pharmacy) 1 each PRN DAILY PRN 05/19/18 10:00 05/20/18 10:42 DC 05/19/18 10:32 1 EACH Vancomycin HCl (Vancomycin Trough Level) 1 each 1X ONCE 05/20/18 16:30 05/20/18 16:30 DC Vancomycin HCl 1.75 gm/Sodium Chloride 500 ml @ 250 mls/hr Q24H 05/19/18 16:00 05/20/18 10:42 DC 05/19/18 16:59 250 MLS/HR Vancomycin HCl 2 gm/Sodium Chloride 500 ml @ 250 mls/hr 1X ONCE 05/18/18 13:15 05/18/18 15:14 DC 05/18/18 15:28 250 MLS/HR Warfarin Sodium (Coumadin Per Pharmacy) 1 each PRN DAILY PRN 05/22/18 15:00 05/23/18 09:49 1 EACH Warfarin Sodium (Coumadin Per Physician) 1 each PRN DAILY PRN 05/22/18 14:45 05/22/18 14:57 DC Warfarin Sodium (Coumadin) 4 mg 1X WARF ONCE 05/23/18 16:00 05/23/18 16:01 DC Zonisamide (Zonegran) 400 mg DAILY 05/19/18 09:00 05/23/18 08:50 400 MG DIAGNOSTIC TESTING: Labs reviewed. Hgb 8.5 ASSESSMENT: 1. CAD + hx of bioprosthetic AVR 2. PAD s/p amputation 3. HTN - labile 4. Mental status changes - likely metabolic 5. Permanent atrial fibrillation PLAN: 1. Continue asa, warfarin and lasix. 2. ok to hold lisinopril for now. May restart when more alert and BP better. 3. Continue statin as tolerated 4. Continue metoprolol for rate control. EF 40% on echo this admission. Supportive care. Will follow along. ADDIS TOM MD May 23, 2018 19:04
[2018-05-23] MEDS: risperiDONE 1 MG TABLET. PO SCH (21:00)
[2018-05-23] MEDS: ATORVASTATIN CALCIUM 40 MG TABLET. PO SCH (21:00)
[2018-05-23] MEDS: MORPHINE SULFATE 2 MG/ML VIAL. IV PRN (23:49)
[2018-05-24] VITALS (7 sets, daily range): BP systolic 95–152; BP diastolic 58–98
[2018-05-24 03:50] LABS: BASO % 0 % (0-3); EOS # 0.1 x10^3/uL (0.0-0.7); EOS % 1 % (0-3); HEMATOCRIT 26.9 % (39.0-53.0); HEMOGLOBIN 8.5 g/dL (13.0-17.5); LYMPH # 0.7 x10^3/uL (1.0-4.8); LYMPH % 6 % (24-48); MEAN CORPUSCULAR HEMOGLOBIN 27 pg (25-35); MEAN CORPUSCULAR HGB CONC 32 g/dL (31-37); MEAN CORPUSCULAR VOLUME 84 fL (79-100); MONO # 0.7 x10^3/uL (0.0-1.1); MONO % 7 % (0-9); NEUT # 9.4 x10^3uL (1.8-7.7); NEUT % 86 % (31-73); PLATELET COUNT 196 x10^3/uL (140-400); RED CELL DISTRIBUTION WIDTH 16.3 % (11.5-14.5)
[2018-05-24 04:08] LABS: ALBUMIN 1.8 g/dL (3.4-5.0); CALCIUM 8.1 mg/dL (8.5-10.1); CREATININE 1.7 mg/dL (0.7-1.3); GFR 39.4; PHOSPHORUS 1.8 mg/dL (2.6-4.7); POTASSIUM 3.9 mmol/L (3.5-5.1)
[2018-05-24 04:14] LABS: PROTHROMBIN TIME PATIENT 17.5 SEC (11.7-14.0)
[2018-05-24] MEDS: PIPERACILLIN/TAZOBACTAM 3.375 GM in IV NORMAL SALINE 50ML 50 ML IV SCH (05:33)
[2018-05-24] MEDS: IV RINGERS,LACTATED 1000ML 1,000 ML IV SCH ×2 (05:34→17:15)
[2018-05-24] MEDS: MORPHINE SULFATE 2 MG/ML VIAL. IV PRN ×4 (05:57→23:25)
--- NOTE | 2018-05-24 06:34 | NUR ---
Neuro assessment change 0200 patient became alert and oriented x4, depressed affect. pt able to answer questions appropriately. Call light in reach, bed in low locked position with bed alarm, 1L on NC and resting comfortably.
[2018-05-24] MEDS: IPRATRPIUM/ALBUTEROL 0.5/2.5MG 3 ML NEBU. NEB SCH ×4 (07:03→19:26)
[2018-05-24] MEDS: INSULIN LISPRO 300 UNITS/3 ML INSULN.PEN. SQ SCH ×4 (08:00→17:00)
--- NOTE | 2018-05-24 08:07 | PDOC ---
Infectious Disease Note Subjective: Subjective Pt comfortable,says is doing ok has postop pain but under control no sob,cough,diarrhea,abdo pain,n/v T max 101.7 D/W RN Vital Signs: Vital Signs Vital Signs Date Time Temp Pulse Resp B/P (MAP) Pulse Ox O2 Delivery O2 Flow Rate FiO2 05/24/18 07:10 Room Air 05/24/18 07:03 98 1.0 05/24/18 07:00 98.4 78 18 108/62 (77) 98.4 Physical Exam: PHYSICAL EXAM GENERAL: Resting quietly HEENT: Pupils equally round, reactive. Normal conjunctivae. Oral cavity, pharynx pink, dry NECK: Supple. LUNGS: Clear to auscultation. HEART: S1 and S2, soft murmur. Irregular. ABDOMEN: Obese, soft and nontender with bowel sounds present. GENITOURINARY: Indwelling Crawley in place. EXTREMITIES: Trace edema in lower extremities bilaterally. Rt BKA dressing and drain in place ,intact lt foot dressing intact, dry SKIN: Warm without rash. No peripheral stigmata. Several tattoos. NEUROLOGIC: Arouses to voice, Peripheral IV Medications: Inpatient Meds: Current Medications Medications (Trade) Dose Ordered Sig/Ana Start Time Stop Time Status Last Admin Dose Admin Acetaminophen (Tylenol Supp) 650 mg PRN Q6HRS PRN 05/20/18 01:15 05/23/18 23:33 Acetaminophen (Tylenol) 500 mg PRN Q6HRS PRN 05/18/18 16:15 05/20/18 20:08 Acetaminophen/ Codeine Phosphate (Tylenol #3) 1 tab PRN Q6HRS PRN 05/18/18 15:30 05/22/18 16:19 Albuterol Sulfate (Ventolin Hfa) 2 puff PRN Q6HRS PRN 05/18/18 15:30 UNV Albuterol Sulfate (Ventolin Neb Soln) 2.5 mg PRN Q6HRS PRN 05/18/18 15:45 Albuterol/ Ipratropium (Duoneb) 3 ml Q4HRS W/A 05/18/18 18:00 05/24/18 07:03 Aspirin (Ecotrin) 81 mg DAILYWBKFT 05/23/18 08:00 05/23/18 08:42 Atorvastatin Calcium (Lipitor) 80 mg QHS 05/18/18 21:00 05/22/18 21:25 Bacitracin 43237 unit/Sodium Chloride 500 ml @ 500 mls/hr 1X ONCE 05/21/18 12:40 05/21/18 13:39 DC Cefazolin Sodium 1 gm/Sodium Chloride 500 ml @ 500 mls/hr 1X ONCE 05/21/18 12:40 05/21/18 13:39 DC Daptomycin 590 mg/ Sodium Chloride 50 ml @ 100 mls/hr Q24H 05/20/18 12:00 05/23/18 13:39 Dexamethasone Sodium Phosphate (Decadron) 20 mg STK-MED ONCE 05/21/18 12:27 05/21/18 12:28 DC Dextrose (Dextrose 50%-Water Syringe) 25 gm 1X ONCE 05/23/18 17:45 05/23/18 17:46 DC 05/23/18 13:15 Digoxin (Lanoxin) 250 mcg 1X ONCE 05/22/18 12:30 05/22/18 12:31 DC 05/22/18 12:28 Diltiazem HCl (Cardizem Iv Push) 10 mg 1X ONCE 05/18/18 15:30 05/18/18 15:31 DC Esmolol HCl (Brevibloc) 100 mg STK-MED ONCE 05/21/18 14:22 05/21/18 14:23 DC Famotidine (Pepcid Vial) 20 mg STK-MED ONCE 05/21/18 12:27 05/21/18 12:28 DC Fentanyl Citrate (Fentanyl 2ml Vial) 100 mcg STK-MED ONCE 05/21/18 12:27 05/21/18 12:28 DC Furosemide (Lasix) 40 mg 1X ONCE 05/19/18 08:45 05/19/18 08:46 DC 05/19/18 10:12 Gabapentin (Neurontin) 300 mg DAILY 05/19/18 09:00 05/23/18 08:50 Heparin Sodium (Porcine) (Heparin Sodium) 5,000 unit Q8HRS 05/19/18 14:00 05/19/18 14:00 DC Hydralazine HCl (Apresoline) 10 mg TID 05/18/18 16:00 05/22/18 21:27 Hydromorphone HCl (Dilaudid) 0.5 mg PRN Q10MIN PRN 05/21/18 09:45 05/22/18 09:44 DC Insulin Glargine (Lantus) 3 units 1X ONCE 05/21/18 22:00 05/22/18 01:31 DC 05/21/18 22:00 Insulin Human Lispro (HumaLOG) 7 units DAILYWBKFT 05/24/18 08:00 Labetalol HCl (Normodyne Iv Push) 5 mg 1X PACU PRN 05/21/18 15:30 05/22/18 09:09 DC 05/21/18 15:30 Levetiracetam (Keppra) 1,250 mg BID 05/18/18 21:00 05/23/18 08:50 Lidocaine HCl 20 ml STK-MED ONCE 05/21/18 11:42 05/21/18 12:42 DC Lidocaine HCl (Glydo (Lidocaine) Jelly) 1 vianney 1X ONCE 05/21/18 12:30 05/21/18 12:31 DC Lidocaine HCl (Lidocaine Pf 2% Vial) 5 ml STK-MED ONCE 05/21/18 12:27 05/21/18 12:28 DC Lidocaine HCl (Xylocaine-Mpf 1% 2ml Vial) 2 ml 1X PRN PRN 05/21/18 09:45 05/22/18 09:44 DC Lisinopril (Prinivil) 20 mg DAILY 05/19/18 09:00 05/19/18 10:14 Metformin HCl (Glucophage) 1,000 mg BIDWMEALS 05/18/18 17:00 05/23/18 08:42 Metoprolol Tartrate (Lopressor) 50 mg BID 05/18/18 21:00 05/23/18 08:42 Morphine Sulfate 30 ml @ 0 mls/hr CONT PRN PRN 05/21/18 15:00 Morphine Sulfate (Morphine Sulfate) 1 mg PRN Q10MIN PRN 05/21/18 09:45 05/22/18 09:44 DC Multivitamins (Thera M Plus) 1 tab DAILY 05/19/18 09:00 05/23/18 08:50 Naloxone HCl (Narcan) 0.4 mg PRN Q2MIN PRN 05/21/18 15:00 Neomycin/ Polymyxin/ Bacitracin (Triple Antibiotic Ointment) 1 pkt STK-MED ONCE 05/21/18 13:38 05/21/18 14:38 DC 05/21/18 14:41 Non-Formulary Medication (Rosuvastatin Calcium (Crestor)) 40 mg DAILY 05/19/18 09:00 UNV Ondansetron HCl (Zofran) 4 mg STK-MED ONCE 05/21/18 12:27 05/21/18 12:28 DC Oxycodone/ Acetaminophen (Percocet 10/325) 1 tab PRN Q6HRS PRN 05/18/18 15:30 05/22/18 17:50 Oxycodone/ Acetaminophen (Percocet 5/325) 1 tab PRN Q4HRS PRN 05/18/18 15:30 UNV Phytonadione (Vitamin K Ampule) 10 mg 1X ONCE 05/19/18 10:15 05/19/18 10:16 UNV Phytonadione 5 mg/ Dextrose 50.5 ml @ 101 mls/hr 1X ONCE 05/20/18 10:30 05/20/18 10:59 DC 05/20/18 10:08 Piperacillin Sod/ Tazobactam Sod 3.375 gm/Sodium Chloride 50 ml @ 100 mls/hr Q6HRS 05/18/18 18:00 05/24/18 05:33 Piperacillin Sod/ Tazobactam Sod 4.5 gm/Sodium Chloride 100 ml @ 200 mls/hr 1X ONCE 05/18/18 13:00 05/18/18 13:29 DC 05/18/18 14:34 Potassium Chloride (Klor-Con) 40 meq 1X ONCE 05/19/18 08:30 05/19/18 08:31 DC 05/19/18 10:14 Prochlorperazine Edisylate (Compazine) 5 mg PACU PRN PRN 05/21/18 09:45 05/22/18 09:44 DC Propofol 20 ml @ As Directed STK-MED ONCE 05/21/18 12:27 05/21/18 12:28 DC Ringer's Solution 1,000 ml @ 75 mls/hr [id number] 05/23/18 14:00 05/24/18 05:34 Risperidone (RisperDAL) 1 mg QHS 4/12/19 21:00 05/22/18 21:24 Sevoflurane (Ultane) 90 ml STK-MED ONCE 05/21/18 14:40 05/21/18 14:41 DC Sodium Chloride 1,000 ml @ 25 mls/hr Q24H 05/21/18 14:57 05/24/18 07:00 DC Vancomycin HCl (Vanco Per Pharmacy) 1 each PRN DAILY PRN 05/19/18 10:00 05/20/18 10:42 DC 05/19/18 10:32 Vancomycin HCl (Vancomycin Trough Level) 1 each 1X ONCE 05/20/18 16:30 05/20/18 16:30 DC Vancomycin HCl 1.75 gm/Sodium Chloride 500 ml @ 250 mls/hr Q24H 05/19/18 16:00 05/20/18 10:42 DC 05/19/18 16:59 Vancomycin HCl 2 gm/Sodium Chloride 500 ml @ 250 mls/hr 1X ONCE 05/18/18 13:15 05/18/18 15:14 DC 05/18/18 15:28 Warfarin Sodium (Coumadin Per Pharmacy) 1 each PRN DAILY PRN 05/22/18 15:00 05/23/18 09:49 Warfarin Sodium (Coumadin Per Physician) 1 each PRN DAILY PRN 05/22/18 14:45 05/22/18 14:57 DC Warfarin Sodium (Coumadin) 4 mg 1X WARF ONCE 05/23/18 16:00 05/23/18 16:01 DC Zonisamide (Zonegran) 400 mg DAILY 05/19/18 09:00 05/23/18 08:50 Labs: Lab Laboratory Tests Test 05/23/18 12:46 05/23/18 13:29 05/23/18 14:21 05/23/18 17:37 Glucose (Fingerstick) 47 mg/dL (70-99) 73 mg/dL (70-99) 127 mg/dL (70-99) 138 mg/dL (70-99) Test 05/23/18 20:25 05/24/18 03:00 Glucose (Fingerstick) 125 mg/dL (70-99) White Blood Count 11.0 x10^3/uL (4.0-11.0) Red Blood Count 3.20 x10^6/uL (4.30-5.70) Hemoglobin 8.5 g/dL (13.0-17.5) Hematocrit 26.9 % (39.0-53.0) Mean Corpuscular Volume 84 fL (79-100) Mean Corpuscular Hemoglobin 27 pg (25-35) Mean Corpuscular Hemoglobin Concent 32 g/dL (31-37) Red Cell Distribution Width 16.3 % (11.5-14.5) Platelet Count 196 x10^3/uL (140-400) Neutrophils (%) (Auto) 86 % (31-73) Lymphocytes (%) (Auto) 6 % (24-48) Monocytes (%) (Auto) 7 % (0-9) Eosinophils (%) (Auto) 1 % (0-3) Basophils (%) (Auto) 0 % (0-3) Neutrophils # (Auto) 9.4 x10^3uL (1.8-7.7) Lymphocytes # (Auto) 0.7 x10^3/uL (1.0-4.8) Monocytes # (Auto) 0.7 x10^3/uL (0.0-1.1) Eosinophils # (Auto) 0.1 x10^3/uL (0.0-0.7) Basophils # (Auto) 0.0 x10^3/uL (0.0-0.2) Prothrombin Time 17.5 SEC (11.7-14.0) Prothromb Time International Ratio 1.5 (0.8-1.1) Sodium Level 138 mmol/L (136-145) Potassium Level 3.9 mmol/L (3.5-5.1) Chloride Level 101 mmol/L (98-107) Carbon Dioxide Level 27 mmol/L (21-32) Anion Gap 10 (6-14) Blood Urea Nitrogen 30 mg/dL (8-26) Creatinine 1.7 mg/dL (0.7-1.3) Estimated GFR (Cockcroft-Gault) 39.4 Glucose Level 135 mg/dL (70-99) Calcium Level 8.1 mg/dL (8.5-10.1) Phosphorus Level 1.8 mg/dL (2.6-4.7) Albumin 1.8 g/dL (3.4-5.0) Micro RUN DATE: 05/22/18 PAGE 1 RUN TIME: 1804 [facility] [address] [place] [address] Ge Barnett M.D., Sheet Metal Operator PATIENT: VICKI BRAUN ACCT: [id number] LOC: 1 [facility] U : [id number] AGE/SX: 78/M ROOM: 104 REG : 05/18/[address]: ARABELLA MARTINEZ MD : 1940 BED: 1 DIS : STATUS: ADM IN TLOC: SPEC #: [id number] ERI: 05/18/18 STATUS: COMP REQ #: [id number] RECD: 05/18/18 [facility] DR: BOB BERRIOS MD SOURCE: BLOOD ENTR: 05/19/18 [facility] DR: MARITZA JONAS [facility]: ORDERED: BLD CULT - LC Procedure Result BLOOD CULTURE LC Final Final report BLD CULT RESULT 1 Final Comment Methicillin - resistant Staphylococcus aureus Based on resistance to oxacillin this isolate would be resistant to all currently available beta-lactam antimicrobial agents, with the exception of the newer cephalosporins with anti-MRSA activity, such as Ceftaroline ANTIMICROBIAL SUSCEPTIBILITY Final Comment S = Susceptible; I = Intermediate; R = Resistant P = Positive; N = Negative MICS are expressed in micrograms per mL Antibiotic RSLT#1 RSLT#2 RSLT#3 RSLT#4 Ciprofloxacin R>=8 Gentamicin S<=0.5 Levofloxacin I =4 Linezolid S =2 Nitrofurantoin S<=16 Oxacillin R>=4 Penicillin R>=0.5 Rifampin S<=0.5 Tetracycline S<=1 Trimethoprim/Sulfa S<=10 Vancomycin S =1 Performed at: [facility], [place], [place] [id number] Splicing Technician: LÁZARO Chong MD, Phone: [phone] PATIENT: VICKI BRAUN ACCT: [id number] LOC: 1 [facility] U : [id number] AGE/SX: 78/M ROOM: [address] [place] [address] : 05/18/[address]: ARABELLA MARTINEZ MD : 1940 BED: 1 DIS : STATUS: ADM IN TLOC: SPEC #: [id number] ERI: 05/19/18 STATUS: RES REQ #: [id number] RECD: 05/19/[address]: GIO GASPAR APRN SOURCE: ANKLE ENTR: 05/19/[address]: DAYANA CATES MD SPDESC: RODRIGUEZ RAO MD, VENKAT R MD TERMULO, CHERRIE Y MD ORDERED: ANAER/AEROB/GS COMMENTS: Specimen Comment: Test(s) Aerobic Culture called to ANNE 05/23/2018 at 14:01 Specimen Comment: EST Procedure Result ANAEROBIC-AEROBIC CULTURE Preliminary Preliminary report ANAEROBIC RES 1 Preliminary Comment No anaerobes recovered in 48 hours. AEROBIC CULT Final Final report AEROBIC RES 1 Final Comment Enterobacter cloacae complex 4+ AEROBIC RES 2 Final Comment Methicillin - resistant Staphylococcus aureus Scant growth Based on resistance to oxacillin this isolate would be resistant to all currently available beta-lactam antimicrobial agents, with the exception of the newer cephalosporins with anti-MRSA activity, such as Ceftaroline This isolate does not demonstrate inducible clindamycin resistance in vitro by D test. CONTINUED ON NEXT PAGE RUN DATE: 05/23/18 PAGE 2 RUN TIME: 2280 [facility] [address] [place] [address] Ge Barnett M.D., Sheet Metal Operator SPEC: [id number] PATIENT: BRAUNVICKI [id number] ( Continued) Procedure Result ANTIMICROBIAL SUSCEPTIBILITY Final Comment S = Susceptible; I = Intermediate; R = Resistant P = Positive; N = Negative MICS are expressed in micrograms per mL Antibiotic RSLT#1 RSLT#2 RSLT#3 RSLT#4 Amoxicillin/Clavulanic Acid R =R Cefepime S<=0.12 Cefuroxime R =R Ciprofloxacin S<=0.25 R =4 Clindamycin S<=0.25 Ertapenem S<=0.12 Erythromycin R>=8 Gentamicin S<=1 S<=0.5 Imipenem S<=0.25 Levofloxacin S<=0.12 I =4 Linezolid S =2 Meropenem S<=0.25 Oxacillin R>=4 Penicillin R>=0.5 Rifampin S<=0.5 Tetracycline S =2 S<=1 Tobramycin S<=1 Trimethoprim/Sulfa S<=20 S<=10 Vancomycin S<=0.5 GRAM STAIN Final Final report GRAM STAIN RES 1 Final Comment Rare white blood cells. GRAM STAIN RES 2 Final Comment Few gram negative rods. Performed at: [facility] [address], [place], [place] [id number] Splicing Technician: LÁZARO Chong MD, Phone: [phone] END OF REPORT Objective: Assessment: Fever again ? 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 There is no significant aortic valvular stenosis. There is no aortic valvular vegetation. 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 Bioprosthesis leaflets are thin and move normally. Renal insufficiency/JIMMY Encephalopathy Coagulopathy, on chronic warfarin A- fib RVR Severe PAD s/p BLE stents and previous toe amputations Diabetes Type II h/o PSA ( R quinolones & I imipenem) h/o group B strep bacteremia, 2016 Plan: Plan of Care Continue Dapto start merrem, was on zosyn off IV Vanc due to JIMMY D/W MICRO to check for dapto suscep repeat BC,UA,Urine c/s Repeat BC 05/20 ,05/21 pending Monitor labs and renal function closely Local wound care and offloading D/W NESHA WONG MD May 24, 2018 08:07
[2018-05-24] MEDS: levETIRAcetam 250 MG TABLET PO SCH ×2 (08:41→21:27)
[2018-05-24] MEDS: ASPIRIN ENTERIC COATED 81 MG TABLET.DR. PO SCH (08:41)
[2018-05-24] MEDS: FUROSEMIDE 40 MG TABLET. PO SCH (08:41)
[2018-05-24] MEDS: METOPROLOL TART IMMED RELEASE 50 MG TABLET. PO SCH ×2 (08:41→21:26)
[2018-05-24] MEDS: metFORMIN 500 MG TABLET PO SCH ×2 (08:42→17:14)
[2018-05-24] MEDS: MULTIVITAMIN with MINERAL TABLET. PO SCH (08:42)
[2018-05-24] MEDS: GABAPENTIN 300 MG CAPSULE. PO SCH (08:42)
[2018-05-24] MEDS: ZONISAMIDE 100 MG CAPSULE. PO SCH (08:43)
[2018-05-24] MEDS: POTASSIUM CHLORIDE 20 MEQ TABLET.ER. PO SCH (08:43)
[2018-05-24] MEDS: hydrALAZINE 10 MG TABLET PO SCH ×3 (08:45→21:26)
[2018-05-24] MEDS: LISINOPRIL 20 MG TABLET PO SCH (08:46)
[2018-05-24 10:14] LABS: BILIRUBIN,URINE NEGATIVE (NEG); CLARITY,URINE CLEAR; COLOR,URINE YELLOW; NITRITE,URINE NEGATIVE (NEG); PH,URINE 6.5; PROTEIN,URINE NEGATIVE (NEG-TRACE); UROBILINOGEN,URINE 0.2 mg/dL (0.2 mg/dL)
--- NOTE | 2018-05-24 10:23 | PDOC ---
PROGRESS NOTES Subjective Subjective Pt doing well today. More alert and awake this am. Reports pain to right leg, but controlled. Has not worked with PT, has not received rigid rooke boot yet. Objective Objective Vital Signs Date Time Temp Pulse Resp B/P (MAP) Pulse Ox O2 Delivery O2 Flow Rate FiO2 05/24/18 09:20 98 Room Air 05/24/18 08:46 78 108/62 05/24/18 07:03 1.0 05/24/18 07:00 98.4 18 98.4 Intake and Output 05/24/18 06:59 Intake Total 2320 ml Output Total 1400 ml Balance 920 ml Intake Oral 1320 ml IV Total 1000 ml Output Urine Total 1400 ml # Bowel Movements 1 Physical Exam Physical Exam Alert, oriented, in no apparent distress Respirations nonlabored Right BKA incision clean, dry and intact, minimal drainage on dressing that was removed. Minimal surrounding erythema. No active drainage. Right knee able to straighten, not full 180 degrees and with some resistance. 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 - Keep BKA incision clean and dry - Again stressed importance to nursing about placing rigid rooke boot which the pt has yet to receive. Preventative measures for flexion contracture. - Offload left lateral heel wound, aquacel AG to wound, daily changes - PT today - Discussed with RN Comment Review of Relevant I have reviewed the following items navi (where applicable) has been applied. Labs Laboratory Tests Test 05/22/18 13:14 05/22/18 17:20 05/22/18 21:17 05/23/18 05:05 Glucose (Fingerstick) 150 mg/dL (70-99) 163 mg/dL (70-99) 137 mg/dL (70-99) White Blood Count 8.9 x10^3/uL (4.0-11.0) Red Blood Count 3.13 x10^6/uL (4.30-5.70) Hemoglobin 8.4 g/dL (13.0-17.5) Hematocrit 26.2 % (39.0-53.0) Mean Corpuscular Volume 84 fL (79-100) Mean Corpuscular Hemoglobin 27 pg (25-35) Mean Corpuscular Hemoglobin Concent 32 g/dL (31-37) Red Cell Distribution Width 16.1 % (11.5-14.5) Platelet Count 198 x10^3/uL (140-400) Neutrophils (%) (Auto) 85 % (31-73) Lymphocytes (%) (Auto) 6 % (24-48) Monocytes (%) (Auto) 8 % (0-9) Eosinophils (%) (Auto) 1 % (0-3) Basophils (%) (Auto) 0 % (0-3) Neutrophils # (Auto) 7.6 x10^3uL (1.8-7.7) Lymphocytes # (Auto) 0.5 x10^3/uL (1.0-4.8) Monocytes # (Auto) 0.8 x10^3/uL (0.0-1.1) Eosinophils # (Auto) 0.1 x10^3/uL (0.0-0.7) Basophils # (Auto) 0.0 x10^3/uL (0.0-0.2) Prothrombin Time 16.5 SEC (11.7-14.0) Prothromb Time International Ratio 1.4 (0.8-1.1) Sodium Level 138 mmol/L (136-145) Potassium Level 4.0 mmol/L (3.5-5.1) Chloride Level 100 mmol/L (98-107) Carbon Dioxide Level 27 mmol/L (21-32) Anion Gap 11 (6-14) Blood Urea Nitrogen 27 mg/dL (8-26) Creatinine 1.6 mg/dL (0.7-1.3) Estimated GFR (Cockcroft-Gault) 42.2 Glucose Level 127 mg/dL (70-99) Calcium Level 8.1 mg/dL (8.5-10.1) Phosphorus Level 2.0 mg/dL (2.6-4.7) Albumin 1.9 g/dL (3.4-5.0) Test 05/23/18 07:48 05/23/18 12:46 05/23/18 13:29 05/23/18 14:21 Glucose (Fingerstick) 108 mg/dL (70-99) 47 mg/dL (70-99) 73 mg/dL (70-99) 127 mg/dL (70-99) Test 05/23/18 17:37 05/23/18 20:25 05/24/18 03:00 Glucose (Fingerstick) 138 mg/dL (70-99) 125 mg/dL (70-99) White Blood Count 11.0 x10^3/uL (4.0-11.0) Red Blood Count 3.20 x10^6/uL (4.30-5.70) Hemoglobin 8.5 g/dL (13.0-17.5) Hematocrit 26.9 % (39.0-53.0) Mean Corpuscular Volume 84 fL (79-100) Mean Corpuscular Hemoglobin 27 pg (25-35) Mean Corpuscular Hemoglobin Concent 32 g/dL (31-37) Red Cell Distribution Width 16.3 % (11.5-14.5) Platelet Count 196 x10^3/uL (140-400) Neutrophils (%) (Auto) 86 % (31-73) Lymphocytes (%) (Auto) 6 % (24-48) Monocytes (%) (Auto) 7 % (0-9) Eosinophils (%) (Auto) 1 % (0-3) Basophils (%) (Auto) 0 % (0-3) Neutrophils # (Auto) 9.4 x10^3uL (1.8-7.7) Lymphocytes # (Auto) 0.7 x10^3/uL (1.0-4.8) Monocytes # (Auto) 0.7 x10^3/uL (0.0-1.1) Eosinophils # (Auto) 0.1 x10^3/uL (0.0-0.7) Basophils # (Auto) 0.0 x10^3/uL (0.0-0.2) Prothrombin Time 17.5 SEC (11.7-14.0) Prothromb Time International Ratio 1.5 (0.8-1.1) Sodium Level 138 mmol/L (136-145) Potassium Level 3.9 mmol/L (3.5-5.1) Chloride Level 101 mmol/L (98-107) Carbon Dioxide Level 27 mmol/L (21-32) Anion Gap 10 (6-14) Blood Urea Nitrogen 30 mg/dL (8-26) Creatinine 1.7 mg/dL (0.7-1.3) Estimated GFR (Cockcroft-Gault) 39.4 Glucose Level 135 mg/dL (70-99) Calcium Level 8.1 mg/dL (8.5-10.1) Phosphorus Level 1.8 mg/dL (2.6-4.7) Albumin 1.8 g/dL (3.4-5.0) Laboratory Tests Test 05/23/18 12:46 05/23/18 13:29 05/23/18 14:21 05/23/18 17:37 Glucose (Fingerstick) 47 mg/dL (70-99) 73 mg/dL (70-99) 127 mg/dL (70-99) 138 mg/dL (70-99) Test 05/23/18 20:25 05/24/18 03:00 Glucose (Fingerstick) 125 mg/dL (70-99) White Blood Count 11.0 x10^3/uL (4.0-11.0) Red Blood Count 3.20 x10^6/uL (4.30-5.70) Hemoglobin 8.5 g/dL (13.0-17.5) Hematocrit 26.9 % (39.0-53.0) Mean Corpuscular Volume 84 fL (79-100) Mean Corpuscular Hemoglobin 27 pg (25-35) Mean Corpuscular Hemoglobin Concent 32 g/dL (31-37) Red Cell Distribution Width 16.3 % (11.5-14.5) Platelet Count 196 x10^3/uL (140-400) Neutrophils (%) (Auto) 86 % (31-73) Lymphocytes (%) (Auto) 6 % (24-48) Monocytes (%) (Auto) 7 % (0-9) Eosinophils (%) (Auto) 1 % (0-3) Basophils (%) (Auto) 0 % (0-3) Neutrophils # (Auto) 9.4 x10^3uL (1.8-7.7) Lymphocytes # (Auto) 0.7 x10^3/uL (1.0-4.8) Monocytes # (Auto) 0.7 x10^3/uL (0.0-1.1) Eosinophils # (Auto) 0.1 x10^3/uL (0.0-0.7) Basophils # (Auto) 0.0 x10^3/uL (0.0-0.2) Prothrombin Time 17.5 SEC (11.7-14.0) Prothromb Time International Ratio 1.5 (0.8-1.1) Sodium Level 138 mmol/L (136-145) Potassium Level 3.9 mmol/L (3.5-5.1) Chloride Level 101 mmol/L (98-107) Carbon Dioxide Level 27 mmol/L (21-32) Anion Gap 10 (6-14) Blood Urea Nitrogen 30 mg/dL (8-26) Creatinine 1.7 mg/dL (0.7-1.3) Estimated GFR (Cockcroft-Gault) 39.4 Glucose Level 135 mg/dL (70-99) Calcium Level 8.1 mg/dL (8.5-10.1) Phosphorus Level 1.8 mg/dL (2.6-4.7) Albumin 1.8 g/dL (3.4-5.0) Microbiology 05/21/18 Blood Culture - Preliminary, Resulted NO GROWTH AFTER 3 DAYS 05/19/18 Urine Culture - Final, Complete 05/19/18 Urine Culture Result 1 (FELICITA) - Final, Complete 05/19/18 Anaerobic/Aerobic Culture - Preliminary, Resulted 05/19/18 Anaerobic Culture Result 1 (FELICITA) - Preliminary, Resulted 05/19/18 Aerobic Culture - Final, Resulted 05/19/18 Aerobic Culture Result 1 (FELICITA) - Final, Resulted 05/19/18 Aerobic Culture Result 2 (FELICITA) - Final, Resulted 05/19/18 Antimicrobic Susceptibility - Final, Resulted 05/19/18 Gram Stain - Final, Resulted 05/19/18 Gram Stain Result 1 (FELICITA) - Final, Resulted 05/19/18 Gram Stain Result 2 (FELICITA) - Final, Resulted Medications Current Medications Sodium Chloride 1,000 ml @ 2,190 mls/hr Q28M IV Last administered on at 14:36; Start 05/18/18 at 12:52; Stop 05/18/18 at 13:52; Status DC Piperacillin Sod/ Tazobactam Sod 4.5 gm/Sodium Chloride 100 ml @ 200 mls/hr 1X ONCE IV Last administered on 05/18/18at 14:34; Start 05/18/18 at 13:00; Stop 05/18/18 at 13:29; Status DC Vancomycin HCl (Vanco Per Pharmacy) 1 each 1X ONCE MC Last administered on 01/24at 13:00; Start 05/18/18 at 13:00; Stop 05/18/18 at 13:11; Status DC Vancomycin HCl 2 gm/Sodium Chloride 500 ml @ 250 mls/hr 1X ONCE IV Last administered on 05/18/18at 15:28; Start 05/18/18 at 13:15; Stop 05/18/18 at 15:14 ; Status DC Ondansetron HCl (Zofran) 4 mg PRN Q8HRS PRN IV NAUSEA/VOMITING; Start 05/18/18 at 14:45; Stop 05/18/18 at 15:28; Status DC Fentanyl Citrate (Fentanyl 2ml Vial) 50 mcg PRN Q1HR PRN IV PAIN; Start at 14:45; Stop 05/19/18 at 11:50; Status DC Sodium Chloride 1,000 ml @ 80 mls/hr [id number] IV ; Start 05/18/18 at 14:43; Stop 05/18/18 at 18:42; Status DC Acetaminophen (Tylenol) 650 mg 1X ONCE PO Last administered on 05/18/18at 15:29 ; Start 05/18/18 at 15:30; Stop 05/18/18 at 15:31; Status DC Ondansetron HCl (Zofran) 4 mg PRN Q6HRS PRN IV NAUSEA/VOMITING Last administered on 05/24/18at 06:14; Start 05/18/18 at 15:30 Diltiazem HCl (Cardizem Iv Push) 10 mg 1X ONCE IVP ; Start 05/18/18 at 15:30; Stop 05/18/18 at 15:31; Status DC Acetaminophen (Tylenol) 500 mg PRN Q6HRS PRN PO MILD PAIN / TEMP; Start at 15:30; Stop 05/18/18 at 16:14; Status DC Acetaminophen/ Codeine Phosphate (Tylenol #3) 1 tab PRN Q6HRS PRN PO MODERATE PAIN Last administered on 05/22/18at 16:19; Start 05/18/18 at 15:30 Morphine Sulfate (Morphine Sulfate) 2 mg PRN Q2HR PRN IV PAIN Last administered on 05/24/18 08:49; Start 05/18/18 at 15:30 Oxycodone/ Acetaminophen (Percocet 5/325) 1 tab PRN Q4HRS PRN PO SEVERE PAIN Last administered on 05/23/18 11:14; Start 05/18/18 at 15:30 Albuterol Sulfate (Ventolin Hfa) 2 puff PRN Q6HRS PRN IH SHORTNESS OF BREATH; Start 05/18/18 at 15:30; Status UNV Digoxin (Lanoxin) 125 mcg DAILY PO ; Start 05/19/18 at 09:00; Stop 05/19/18 at 09:00; Status DC Furosemide (Lasix) 40 mg DAILY PO Last administered on 05/24/18 08:41; Start 05/19/18 at 09:00 Gabapentin (Neurontin) 300 mg DAILY PO Last administered on 05/24/18 08:42; Start 05/19/18 at 09:00 Lisinopril (Prinivil) 20 mg DAILY PO Last administered on 05/19/18 10:14; Start 05/19/18 at 09:00 Metoprolol Tartrate (Lopressor) 50 mg BID PO Last administered on 05/24/18 08: 41; Start 05/18/18 at 21:00 Oxycodone/ Acetaminophen (Percocet 10/325) 1 tab PRN Q6HRS PRN PO SEVERE PAIN ( 2ND Choice) Last administered on 05/22/18 17:50; Start 05/18/18 at 15:30 Oxycodone/ Acetaminophen (Percocet 5/325) 1 tab PRN Q4HRS PRN PO PAIN; Start at 15:30; Status UNV Acetaminophen (Tylenol) 500 mg PRN Q6HRS PRN PO MILD PAIN / TEMP Last administered on 05/20/18 20:08; Start 05/18/18 at 16:15 Atorvastatin Calcium (Lipitor) 80 mg QHS PO Last administered on 05/22/18 21: 25; Start 05/18/18 at 21:00 Hydralazine HCl (Apresoline) 10 mg TID PO Last administered on 05/22/18 21:27 ; Start 05/18/18 at 16:00 Insulin Human Lispro (HumaLOG) 10 units DAILYWBKFT SQ Last administered on 05/23 08:58; Start 05/18/18 at 17:00; Stop 05/23/18 at 14:25; Status DC Levetiracetam (Keppra) 1,250 mg BID PO Last administered on 05/24/18 08:41; Start 05/18/18 at 21:00 Metformin HCl (Glucophage) 1,000 mg BIDWMEALS PO Last administered on 08:42; Start 05/18/18 at 17:00 Multivitamins (Thera M Plus) 1 tab DAILY PO Last administered on 05/24/18 08: 42; Start 05/19/18 at 09:00 Potassium Chloride (Klor-Con) 20 meq DAILYWBKFT PO Last administered on 08:43; Start 05/19/18 at 08:00 Risperidone (RisperDAL) 1 mg QHS PO Last administered on 05/22/18 21:24; Start 05/18/18 at 21:00 Non-Formulary Medication (Rosuvastatin Calcium (Crestor)) 40 mg DAILY PO ; Start 05/19/18 at 09:00; Status UNV Zonisamide (Zonegran) 400 mg DAILY PO Last administered on 05/24/18 08:43; Start 05/19/18 at 09:00 Albuterol/ Ipratropium (Duoneb) 3 ml Q4HRS W/A NEB Last administered on 07:03; Start 05/18/18 at 18:00 Insulin Human Lispro (HumaLOG) 0-9 UNITS TIDWMEALS SQ Last administered on 05/22 17:23; Start 05/18/18 at 17:00 Dextrose (Dextrose 50%-Water Syringe) 12.5 gm PRN Q15MIN PRN IV SEE COMMENTS Last administered on 05/23/18at 13:15; Start 05/18/18 at 15:30 Albuterol Sulfate (Ventolin Neb Soln) 2.5 mg PRN Q6HRS PRN NEB SHORTNESS OF BREATH; Start 05/18/18 at 15:45 Piperacillin Sod/ Tazobactam Sod 3.375 gm/Sodium Chloride 50 ml @ 100 mls/hr Q6HRS IV Last administered on 05/24/18at 05:33; Start 05/18/18 at 18:00; Stop at 08:09; Status DC Potassium Chloride (Klor-Con) 40 meq 1X ONCE PO Last administered on at 10:14; Start 05/19/18 at 08:30; Stop 05/19/18 at 08:31; Status DC Heparin Sodium (Porcine) (Heparin Sodium) 5,000 unit Q8HRS SQ ; Start 05/19/18 at 14:00; Stop 05/19/18 at 14:00; Status DC Furosemide (Lasix) 40 mg 1X ONCE IVP Last administered on 05/19/18at 10:12; Start 05/19/18 at 08:45; Stop 05/19/18 at 08:46; Status DC Phytonadione (Vitamin K Ampule) 10 mg 1X ONCE SQ Last administered on at 10:16; Start 05/19/18 at 10:00; Stop 05/19/18 at 10:01; Status DC Vancomycin HCl (Vanco Per Pharmacy) 1 each PRN DAILY PRN MC SEE COMMENTS Last administered on 05/19/18at 10:32; Start 05/19/18 at 10:00; Stop 05/20/18 at 10:42 ; Status DC Phytonadione (Vitamin K Ampule) 10 mg 1X ONCE SQ ; Start 05/19/18 at 10:15; Stop 05/19/18 at 10:16; Status UNV Vancomycin HCl 1.75 gm/Sodium Chloride 500 ml @ 250 mls/hr Q24H IV Last administered on 05/19/18at 16:59; Start 05/19/18 at 16:00; Stop 05/20/18 at 10:42 ; Status DC Vancomycin HCl (Vancomycin Trough Level) 1 each 1X ONCE MC ; Start 05/20/18 at 16:30; Stop 05/20/18 at 16:30; Status DC Acetaminophen (Tylenol Supp) 650 mg PRN Q6HRS PRN PA MILD PAIN / TEMP Last administered on 05/23/18at 23:33; Start 05/20/18 at 01:15 Sodium Chloride 500 ml @ 333 mls/hr 1X ONCE IV Last administered on at 01:14; Start 05/20/18 at 01:15; Stop 05/20/18 at 02:45; Status DC Phytonadione 5 mg/ Dextrose 50.5 ml @ 101 mls/hr 1X ONCE IV Last administered on 05/20/18at 10:08; Start 05/20/18 at 10:30; Stop 05/20/18 at 10:59 ; Status DC Daptomycin 590 mg/ Sodium Chloride 50 ml @ 100 mls/hr Q24H IV Last administered on 05/23/18at 13:39; Start 05/20/18 at 12:00 Ondansetron HCl (Zofran) 4 mg PRN Q6HRS PRN IV NAUSEA/VOMITING; Start 05/21/18 at 09:45; Stop 05/22/18 at 09:44; Status DC Fentanyl Citrate (Fentanyl 2ml Vial) 25 mcg PRN Q5MIN PRN IV MILD PAIN; Start 05/21/18 at 09:45; Stop 05/22/18 at 09:44; Status DC Fentanyl Citrate (Fentanyl 2ml Vial) 50 mcg PRN Q5MIN PRN IV MODERATE TO SEVERE PAIN; Start 05/21/18 at 09:45; Stop 05/22/18 at 09:44; Status DC Morphine Sulfate (Morphine Sulfate) 1 mg PRN Q10MIN PRN IV SEVERE PAIN; Start 05/21/18 at 09:45; Stop 05/22/18 at 09:44; Status DC Ringer's Solution 1,000 ml @ 30 mls/hr Q24H IV ; Start 05/21/18 at 09:39; Stop 05/22/18 at 00:37; Status DC Lidocaine HCl (Xylocaine-Mpf 1% 2ml Vial) 2 ml 1X PRN PRN ID IV START; Start at 09:45; Stop 05/22/18 at 09:44; Status DC Hydromorphone HCl (Dilaudid) 0.5 mg PRN Q10MIN PRN IV SEV PAIN, Second choice; Start 05/21/18 at 09:45; Stop 05/22/18 at 09:44; Status DC Prochlorperazine Edisylate (Compazine) 5 mg PACU PRN PRN IV NAUSEA, MRX1; Start 05/21/18 at 09:45; Stop 05/22/18 at 09:44; Status DC Lidocaine HCl (Glydo (Lidocaine) Jelly) 1 vianney 1X ONCE MM ; Start 05/21/18 at 12 :30; Stop 05/21/18 at 12:31; Status DC Propofol 20 ml @ As Directed STK-MED ONCE IV ; Start 05/21/18 at 12:27; Stop at 12:28; Status DC Dexamethasone Sodium Phosphate (Decadron) 20 mg STK-MED ONCE .ROUTE ; Start at 12:27; Stop 05/21/18 at 12:28; Status DC Famotidine (Pepcid Vial) 20 mg STK-MED ONCE .ROUTE ; Start 05/21/18 at 12:27; Stop 05/21/18 at 12:28; Status DC Lidocaine HCl (Lidocaine Pf 2% Vial) 5 ml STK-MED ONCE .ROUTE ; Start 05/21/18 at 12:27; Stop 05/21/18 at 12:28; Status DC Ondansetron HCl (Zofran) 4 mg STK-MED ONCE .ROUTE ; Start 05/21/18 at 12:27; Stop 05/21/18 at 12:28; Status DC Fentanyl Citrate (Fentanyl 2ml Vial) 100 mcg STK-MED ONCE .ROUTE ; Start at 12:27; Stop 05/21/18 at 12:28; Status DC Bacitracin 13728 unit/Sodium Chloride 500 ml @ 500 mls/hr 1X ONCE IRR ; Start 05/21/18 at 12:40; Stop 05/21/18 at 13:39; Status DC Cefazolin Sodium 1 gm/Sodium Chloride 500 ml @ 500 mls/hr 1X ONCE IRR ; Start 05/21/18 at 12:40; Stop 05/21/18 at 13:39; Status DC Lidocaine HCl 20 ml STK-MED ONCE .ROUTE ; Start 05/21/18 at 11:42; Stop at 12:42; Status DC Esmolol HCl (Brevibloc) 100 mg STK-MED ONCE IVP ; Start 05/21/18 at 13:01; Stop 05/21/18 at 13:02; Status DC Esmolol HCl (Brevibloc) 100 mg STK-MED ONCE IVP ; Start 05/21/18 at 14:22; Stop 05/21/18 at 14:23; Status DC Neomycin/ Polymyxin/ Bacitracin (Triple Antibiotic Ointment) 1 pkt STK-MED ONCE TP Last administered on 05/21/18at 14:41; Start 05/21/18 at 13:38; Stop at 14:38; Status DC Sevoflurane (Ultane) 90 ml STK-MED ONCE IH ; Start 05/21/18 at 14:40; Stop 05/21 at 14:41; Status DC Naloxone HCl (Narcan) 0.4 mg PRN Q2MIN PRN IV SEE INSTRUCTIONS; Start 05/21/18 at 15:00 Sodium Chloride 1,000 ml @ 25 mls/hr Q24H IV ; Start 05/21/18 at 14:57; Stop at 07:00; Status DC Morphine Sulfate 30 ml @ 0 mls/hr CONT PRN PRN IV PER PROTOCOL; Start 05/21/18 at 15:00 Labetalol HCl (Normodyne Iv Push) 20 mg PRN Q2HR PRN IVP HYPERTENSION, SEE COMMENTS Last administered on 05/24/18at 00:15; Start 05/21/18 at 15:30 Labetalol HCl (Normodyne Iv Push) 5 mg 1X PACU PRN IVP tachycardia and HTN Last administered on 05/21/18at 15:30; Start 05/21/18 at 15:30; Stop 05/22/18 at 09:09; Status DC Insulin Glargine (Lantus) 3 units 1X ONCE SQ Last administered on 05/21/18at 22 :00; Start 05/21/18 at 22:00; Stop 05/22/18 at 01:31; Status DC Aspirin (Ecotrin) 81 mg DAILYWBKFT PO Last administered on 05/24/18at 08:41; Start 05/23/18 at 08:00 Digoxin (Lanoxin) 250 mcg 1X ONCE IV Last administered on 05/22/18at 12:28; Start 05/22/18 at 12:30; Stop 05/22/18 at 12:31; Status DC Warfarin Sodium (Coumadin) 6 mg DAILY16 PO ; Start 05/22/18 at 16:00; Stop 05/22 at 16:00; Status DC Warfarin Sodium (Coumadin) 2.5 mg 3X/WEEK PO ; Start 05/23/18 at 09:00; Status UNV Warfarin Sodium (Coumadin Per Physician) 1 each PRN DAILY PRN MC SEE COMMENTS; Start 05/22/18 at 14:45; Stop 05/22/18 at 14:57; Status DC Warfarin Sodium (Coumadin Per Pharmacy) 1 each PRN DAILY PRN MC SEE COMMENTS Last administered on 05/23/18at 09:49; Start 05/22/18 at 15:00 Warfarin Sodium (Coumadin) 4 mg 1X WARF ONCE PO Last administered on at 16:19; Start 05/22/18 at 16:00; Stop 05/22/18 at 16:01; Status DC Warfarin Sodium (Coumadin) 4 mg 1X WARF ONCE PO ; Start 05/23/18 at 16:00; Stop 05/23/18 at 16:01; Status DC Ringer's Solution 1,000 ml @ 75 mls/hr [id number] IV ; Start 05/23/18 at 13:45; Status Cancel Ringer's Solution 1,000 ml @ 75 mls/hr [id number] IV Last administered on at 05:34; Start 05/23/18 at 14:00 Insulin Human Lispro (HumaLOG) 7 units DAILYWBKFT SQ ; Start 05/24/18 at 08:00 Dextrose (Dextrose 50%-Water Syringe) 25 gm 1X ONCE IV Last administered on at 13:15; Start 05/23/18 at 17:45; Stop 05/23/18 at 17:46; Status DC Meropenem 500 mg/ Sodium Chloride 50 ml @ 100 mls/hr Q6HRS IV ; Start 05/24/18 at 12:00 Active Scripts Active Digoxin 125 Mcg Tablet 125 Mcg PO DAILY Furosemide 40 Mg Tablet 40 Mg PO DAILY Metoprolol Tartrate 50 Mg Tablet 50 Mg PO BID [Warfarin Sodium] 1 EACH Each 1 Each MC PRN DAILY PRN Lisinopril 20 Mg Tablet 20 Mg PO DAILY Duoneb 0.5-3(2.5) Mg/3 Ml (Albuterol/Ipratropium) 3 Ml Ampul.neb 3 Ml NEB Q4HRS W/A 30 Days Hydralazine Hcl 10 Mg Tablet 10 Mg PO TID Reported Zonisamide 100 Mg Capsule 400 Mg PO DAILY Percocet 5-325 Mg Tablet (Oxycodone/Acetaminophen) 1 Each Tablet 1 Tab PO PRN Q4HRS PRN Multivitamins (Multivitamin) 1 Each Tablet 1 Tab PO DAILY Levetiracetam 250 Mg Tablet 1,250 Mg PO BID Novolin N (Nph, Human Insulin Isophane) 100 Unit/1 Ml Vial Unknown Dose SQ Atorvastatin Calcium 80 Mg Tablet 1 Tab PO DAILY Acetaminophen 500 Mg Tablet 1 Tab PO PRN Q6HRS PRN Albuterol Sulfate Hfa Inhaler (Albuterol Sulfate) 8.5 Gm Hfa.aer.ad 2 Puff IH PRN Q6HRS PRN Aspirin Ec (Aspirin) 325 Mg Tablet.dr 81 Mg PO DAILY Crestor (Rosuvastatin Calcium) 40 Mg Tablet 40 Mg PO DAILY Warfarin Sodium 5 Mg Tablet 6 Mg PO DAILY Warfarin Sodium 2.5 Mg Tablet 2.5 Mg PO 3X/WEEK monday,monday, Gabapentin (Gabapentin) 300 Mg Capsule 300 Mg PO DAILY Risperidone 1 Mg Tablet 1 Mg PO HS Novolog (Insulin Aspart) 100 Unit/1 Ml Vial 10 Unit SQ DAILYAC Oxycodone-Acetaminophen 10-325 (Oxycodone Hcl/Acetaminophen) 1 Each Tablet 1 Each PO PRN Q6HRS Potassium 99 Mg Tablet 20 Meq PO DAILY Prednisone (Prednisone) 10 Mg Tablet 10 Mg PO DAILY Metformin Hcl 500 Mg Tablet 1,000 Mg PO BIDBFRMEAL Vitals/I & O Vital Sign - Last 24 Hours 05/23/18 05/23/18 05/23/18 05/23/18 11:00 11:14 12:00 12:00 Temp 98.3 98.3 Pulse 68 68 Resp 17 B/P (MAP) 141/87 (105) Pulse Ox 93 91 93 O2 Delivery Room Air Room Air Room Air Room Air O2 Flow Rate 1.0 05/23/18 05/23/18 05/23/18 05/23/18 12:08 12:30 13:00 13:00 Temp 97.9 98.1 97.9 98.1 Pulse 72 72 Resp 19 14 14 B/P (MAP) 82/49 (60) 82/49 (60) Pulse Ox 95 92 86 86 O2 Delivery Room Air Room Air Room Air Room Air 05/23/18 05/23/18 05/23/18 05/23/18 14:00 14:00 14:00 15:00 Temp 98.4 98.0 98.9 98.4 98.0 98.9 Pulse 74 74 74 68 Resp 15 15 24 B/P (MAP) 114/44 114/44 (67) 114/44 (67) 99/44 (62) Pulse Ox 85 85 95 O2 Delivery Nasal Cannula Room Air Nasal Cannula O2 Flow Rate 2.0 2.0 05/23/18 05/23/18 05/23/18 05/23/18 15:55 16:00 16:00 16:00 Temp 100.0 100.0 100.0 100.0 Pulse 68 68 Resp 15 21 B/P (MAP) 104/48 (66) 104/48 (66) Pulse Ox 96 100 100 O2 Delivery Nasal Cannula Room Air Nasal Cannula Nasal Cannula O2 Flow Rate 1.0 2.0 2.0 2.0 05/23/18 05/23/18 05/23/18 05/23/18 18:10 19:00 19:44 20:00 Temp 100.6 97.7 100.6 97.7 Pulse 73 73 Resp 18 18 B/P (MAP) 119/47 (71) 138/63 (88) Pulse Ox 93 97 96 O2 Delivery Nasal Cannula Nasal Cannula Room Air Room Air O2 Flow Rate 1.0 1.0 1.0 05/23/18 05/23/18 05/24/18 05/24/18 23:00 23:49 00:15 00:19 Temp 101.7 101.7 Pulse 92 109 Resp 20 20 18 B/P (MAP) 169/100 (123) 169/100 Pulse Ox 98 98 O2 Delivery Nasal Cannula Nasal Cannula O2 Flow Rate 1.0 1.0 1.0 05/24/18 05/24/18 05/24/18 05/24/18 00:59 03:00 05:57 07:00 Temp 100.6 98.4 100.6 98.4 Pulse 79 78 Resp 20 18 18 B/P (MAP) 152/98 (116) 129/62 (84) 108/62 (77) Pulse Ox 95 99 97 O2 Delivery Nasal Cannula Nasal Cannula Nasal Cannula O2 Flow Rate 1.0 1.0 1.0 05/24/18 05/24/18 05/24/18 05/24/18 07:03 07:10 08:41 08:45 Pulse 78 78 B/P (MAP) 108/62 108/62 Pulse Ox 98 O2 Delivery Nasal Cannula Room Air O2 Flow Rate 1.0 05/24/18 05/24/18 05/24/18 08:46 08:49 09:20 Pulse 78 B/P (MAP) 108/62 Pulse Ox 98 98 O2 Delivery Room Air Room Air Intake and Output 05/23/18 05/23/18 05/24/18 14:59 22:59 06:59 Intake Total 0 ml 2320 ml Output Total 700 ml 700 ml Balance -700 ml 1620 ml LA CASTANEDA May 24, 2018 10:23
[2018-05-24 10:49] LABS: SQUAMOUS EPITHELIAL CELL,UR OCC /LPF
[2018-05-24 10:50] LABS: BACTERIA,URINE 0 /HPF (0-FEW); RBC,URINE >40 /HPF (0-2)
[2018-05-24] MEDS: DAPTOmycin (GENERIC) IVPB 590 MG in IV NORMAL SALINE 50ML 50 ML IV SCH (12:00)
[2018-05-24] MEDS: MEROPENEM 500 MG in IV NORMAL SALINE 50ML 50 ML IV SCH ×2 (12:22→18:28)
--- NOTE | 2018-05-24 12:40 | PDOC ---
PROGRESS NOTES Chief Complaint Chief Complaint Severe sepsis cellulitis w/ gangrenous toes A. 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 CRYSTAL done concurrently showing EF 35-40%, no valvular vegetations noted. 05/23: Overnight BP was low, blood glucose low. Today more alert. Some pain in entire right leg, marked weakness. Pt denies any chest pain - no palpitations. No nausea or vomiting or diarrhea. + dyspnea and weakness today Staph on blood cultures. MRSA on left ankle Plan: Cont empiric antibiotics - MRSA screen positive and GPC bacteremia, high risk MRSA, now on daptomycin and merrem per ID consultation PT/OT He is on home hospice, will need to discuss goals of care ultimately F/u cultures Blood glucose control Pain control HR control Vitals Vitals Vital Signs Date Time Temp Pulse Resp B/P (MAP) Pulse Ox O2 Delivery O2 Flow Rate FiO2 05/24/18 11:21 Nasal Cannula 1.0 05/24/18 10:52 99.5 67 18 130/58 (82) 96 99.5 Physical Exam Physical Exam GENERAL: Resting quietly HEENT: Pupils equally round, reactive. Normal conjunctivae. Oral cavity, pharynx pink, dry NECK: Supple. LUNGS: Clear to auscultation. HEART: S1 and S2, soft murmur. Irregular. ABDOMEN: Obese, soft and nontender with bowel sounds present. GENITOURINARY: Indwelling Crawley in place. EXTREMITIES: Trace edema in lower extremities bilaterally. Rt BKA dressing and drain in place ,intact lt foot dressing intact, dry SKIN: Warm without rash. No peripheral stigmata. Several tattoos. 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 and 2 gangrenous toes on the right, chronic hyperpigmentation bilateral shins and foot) Labs LABS Laboratory Tests Test 05/23/18 12:46 05/23/18 13:29 05/23/18 14:21 05/23/18 17:37 Glucose (Fingerstick) 47 mg/dL (70-99) 73 mg/dL (70-99) 127 mg/dL (70-99) 138 mg/dL (70-99) Test 05/23/18 20:25 05/24/18 03:00 05/24/18 09:45 05/24/18 11:42 Glucose (Fingerstick) 125 mg/dL (70-99) 123 mg/dL (70-99) White Blood Count 11.0 x10^3/uL (4.0-11.0) Red Blood Count 3.20 x10^6/uL (4.30-5.70) Hemoglobin 8.5 g/dL (13.0-17.5) Hematocrit 26.9 % (39.0-53.0) Mean Corpuscular Volume 84 fL (79-100) Mean Corpuscular Hemoglobin 27 pg (25-35) Mean Corpuscular Hemoglobin Concent 32 g/dL (31-37) Red Cell Distribution Width 16.3 % (11.5-14.5) Platelet Count 196 x10^3/uL (140-400) Neutrophils (%) (Auto) 86 % (31-73) Lymphocytes (%) (Auto) 6 % (24-48) Monocytes (%) (Auto) 7 % (0-9) Eosinophils (%) (Auto) 1 % (0-3) Basophils (%) (Auto) 0 % (0-3) Neutrophils # (Auto) 9.4 x10^3uL (1.8-7.7) Lymphocytes # (Auto) 0.7 x10^3/uL (1.0-4.8) Monocytes # (Auto) 0.7 x10^3/uL (0.0-1.1) Eosinophils # (Auto) 0.1 x10^3/uL (0.0-0.7) Basophils # (Auto) 0.0 x10^3/uL (0.0-0.2) Prothrombin Time 17.5 SEC (11.7-14.0) Prothromb Time International Ratio 1.5 (0.8-1.1) Sodium Level 138 mmol/L (136-145) Potassium Level 3.9 mmol/L (3.5-5.1) Chloride Level 101 mmol/L (98-107) Carbon Dioxide Level 27 mmol/L (21-32) Anion Gap 10 (6-14) Blood Urea Nitrogen 30 mg/dL (8-26) Creatinine 1.7 mg/dL (0.7-1.3) Estimated GFR (Cockcroft-Gault) 39.4 Glucose Level 135 mg/dL (70-99) Calcium Level 8.1 mg/dL (8.5-10.1) Phosphorus Level 1.8 mg/dL (2.6-4.7) Albumin 1.8 g/dL (3.4-5.0) Urine Collection Type Unknown Urine Color Yellow Urine Clarity Clear Urine pH 6.5 Urine Specific [place] 1.015 Urine Protein Negative mg/dL (NEG-TRACE) Urine Glucose (UA) Negative mg/dL (NEG) Urine Ketones (Stick) Negative mg/dL (NEG) Urine Blood Large (NEG) Urine Nitrite Negative (NEG) Urine Bilirubin Negative (NEG) Urine Urobilinogen Dipstick 0.2 mg/dL (0.2 mg/dL) Urine Leukocyte Esterase Negative (NEG) Urine RBC >40 /HPF (0-2) Urine WBC 1-4 /HPF (0-4) Urine Squamous Epithelial Cells Occ /LPF Urine Bacteria 0 /HPF (0-FEW) Assessment and Plan Assessmemt and Plan Problems Medical Problems: (1) Fever Status: Acute (2) Gangrene of toe Status: Acute (3) Leukocytosis Status: Acute (4) Severe sepsis Status: Acute Comment Review of Relevant I have reviewed the following items navi (where applicable) has been applied. Labs Laboratory Tests Test 05/22/18 13:14 05/22/18 17:20 05/22/18 21:17 05/23/18 05:05 Glucose (Fingerstick) 150 mg/dL (70-99) 163 mg/dL (70-99) 137 mg/dL (70-99) White Blood Count 8.9 x10^3/uL (4.0-11.0) Red Blood Count 3.13 x10^6/uL (4.30-5.70) Hemoglobin 8.4 g/dL (13.0-17.5) Hematocrit 26.2 % (39.0-53.0) Mean Corpuscular Volume 84 fL (79-100) Mean Corpuscular Hemoglobin 27 pg (25-35) Mean Corpuscular Hemoglobin Concent 32 g/dL (31-37) Red Cell Distribution Width 16.1 % (11.5-14.5) Platelet Count 198 x10^3/uL (140-400) Neutrophils (%) (Auto) 85 % (31-73) Lymphocytes (%) (Auto) 6 % (24-48) Monocytes (%) (Auto) 8 % (0-9) Eosinophils (%) (Auto) 1 % (0-3) Basophils (%) (Auto) 0 % (0-3) Neutrophils # (Auto) 7.6 x10^3uL (1.8-7.7) Lymphocytes # (Auto) 0.5 x10^3/uL (1.0-4.8) Monocytes # (Auto) 0.8 x10^3/uL (0.0-1.1) Eosinophils # (Auto) 0.1 x10^3/uL (0.0-0.7) Basophils # (Auto) 0.0 x10^3/uL (0.0-0.2) Prothrombin Time 16.5 SEC (11.7-14.0) Prothromb Time International Ratio 1.4 (0.8-1.1) Sodium Level 138 mmol/L (136-145) Potassium Level 4.0 mmol/L (3.5-5.1) Chloride Level 100 mmol/L (98-107) Carbon Dioxide Level 27 mmol/L (21-32) Anion Gap 11 (6-14) Blood Urea Nitrogen 27 mg/dL (8-26) Creatinine 1.6 mg/dL (0.7-1.3) Estimated GFR (Cockcroft-Gault) 42.2 Glucose Level 127 mg/dL (70-99) Calcium Level 8.1 mg/dL (8.5-10.1) Phosphorus Level 2.0 mg/dL (2.6-4.7) Albumin 1.9 g/dL (3.4-5.0) Test 05/23/18 07:48 05/23/18 12:46 05/23/18 13:29 05/23/18 14:21 Glucose (Fingerstick) 108 mg/dL (70-99) 47 mg/dL (70-99) 73 mg/dL (70-99) 127 mg/dL (70-99) Test 05/23/18 17:37 05/23/18 20:25 05/24/18 03:00 05/24/18 09:45 Glucose (Fingerstick) 138 mg/dL (70-99) 125 mg/dL (70-99) White Blood Count 11.0 x10^3/uL (4.0-11.0) Red Blood Count 3.20 x10^6/uL (4.30-5.70) Hemoglobin 8.5 g/dL (13.0-17.5) Hematocrit 26.9 % (39.0-53.0) Mean Corpuscular Volume 84 fL (79-100) Mean Corpuscular Hemoglobin 27 pg (25-35) Mean Corpuscular Hemoglobin Concent 32 g/dL (31-37) Red Cell Distribution Width 16.3 % (11.5-14.5) Platelet Count 196 x10^3/uL (140-400) Neutrophils (%) (Auto) 86 % (31-73) Lymphocytes (%) (Auto) 6 % (24-48) Monocytes (%) (Auto) 7 % (0-9) Eosinophils (%) (Auto) 1 % (0-3) Basophils (%) (Auto) 0 % (0-3) Neutrophils # (Auto) 9.4 x10^3uL (1.8-7.7) Lymphocytes # (Auto) 0.7 x10^3/uL (1.0-4.8) Monocytes # (Auto) 0.7 x10^3/uL (0.0-1.1) Eosinophils # (Auto) 0.1 x10^3/uL (0.0-0.7) Basophils # (Auto) 0.0 x10^3/uL (0.0-0.2) Prothrombin Time 17.5 SEC (11.7-14.0) Prothromb Time International Ratio 1.5 (0.8-1.1) Sodium Level 138 mmol/L (136-145) Potassium Level 3.9 mmol/L (3.5-5.1) Chloride Level 101 mmol/L (98-107) Carbon Dioxide Level 27 mmol/L (21-32) Anion Gap 10 (6-14) Blood Urea Nitrogen 30 mg/dL (8-26) Creatinine 1.7 mg/dL (0.7-1.3) Estimated GFR (Cockcroft-Gault) 39.4 Glucose Level 135 mg/dL (70-99) Calcium Level 8.1 mg/dL (8.5-10.1) Phosphorus Level 1.8 mg/dL (2.6-4.7) Albumin 1.8 g/dL (3.4-5.0) Urine Collection Type Unknown Urine Color Yellow Urine Clarity Clear Urine pH 6.5 Urine Specific [place] 1.015 Urine Protein Negative mg/dL (NEG-TRACE) Urine Glucose (UA) Negative mg/dL (NEG) Urine Ketones (Stick) Negative mg/dL (NEG) Urine Blood Large (NEG) Urine Nitrite Negative (NEG) Urine Bilirubin Negative (NEG) Urine Urobilinogen Dipstick 0.2 mg/dL (0.2 mg/dL) Urine Leukocyte Esterase Negative (NEG) Urine RBC >40 /HPF (0-2) Urine WBC 1-4 /HPF (0-4) Urine Squamous Epithelial Cells Occ /LPF Urine Bacteria 0 /HPF (0-FEW) Test 05/24/18 11:42 Glucose (Fingerstick) 123 mg/dL (70-99) Laboratory Tests Test 05/23/18 12:46 05/23/18 13:29 05/23/18 14:21 05/23/18 17:37 Glucose (Fingerstick) 47 mg/dL (70-99) 73 mg/dL (70-99) 127 mg/dL (70-99) 138 mg/dL (70-99) Test 05/23/18 20:25 05/24/18 03:00 05/24/18 09:45 05/24/18 11:42 Glucose (Fingerstick) 125 mg/dL (70-99) 123 mg/dL (70-99) White Blood Count 11.0 x10^3/uL (4.0-11.0) Red Blood Count 3.20 x10^6/uL (4.30-5.70) Hemoglobin 8.5 g/dL (13.0-17.5) Hematocrit 26.9 % (39.0-53.0) Mean Corpuscular Volume 84 fL (79-100) Mean Corpuscular Hemoglobin 27 pg (25-35) Mean Corpuscular Hemoglobin Concent 32 g/dL (31-37) Red Cell Distribution Width 16.3 % (11.5-14.5) Platelet Count 196 x10^3/uL (140-400) Neutrophils (%) (Auto) 86 % (31-73) Lymphocytes (%) (Auto) 6 % (24-48) Monocytes (%) (Auto) 7 % (0-9) Eosinophils (%) (Auto) 1 % (0-3) Basophils (%) (Auto) 0 % (0-3) Neutrophils # (Auto) 9.4 x10^3uL (1.8-7.7) Lymphocytes # (Auto) 0.7 x10^3/uL (1.0-4.8) Monocytes # (Auto) 0.7 x10^3/uL (0.0-1.1) Eosinophils # (Auto) 0.1 x10^3/uL (0.0-0.7) Basophils # (Auto) 0.0 x10^3/uL (0.0-0.2) Prothrombin Time 17.5 SEC (11.7-14.0) Prothromb Time International Ratio 1.5 (0.8-1.1) Sodium Level 138 mmol/L (136-145) Potassium Level 3.9 mmol/L (3.5-5.1) Chloride Level 101 mmol/L (98-107) Carbon Dioxide Level 27 mmol/L (21-32) Anion Gap 10 (6-14) Blood Urea Nitrogen 30 mg/dL (8-26) Creatinine 1.7 mg/dL (0.7-1.3) Estimated GFR (Cockcroft-Gault) 39.4 Glucose Level 135 mg/dL (70-99) Calcium Level 8.1 mg/dL (8.5-10.1) Phosphorus Level 1.8 mg/dL (2.6-4.7) Albumin 1.8 g/dL (3.4-5.0) Urine Collection Type Unknown Urine Color Yellow Urine Clarity Clear Urine pH 6.5 Urine Specific [place] 1.015 Urine Protein Negative mg/dL (NEG-TRACE) Urine Glucose (UA) Negative mg/dL (NEG) Urine Ketones (Stick) Negative mg/dL (NEG) Urine Blood Large (NEG) Urine Nitrite Negative (NEG) Urine Bilirubin Negative (NEG) Urine Urobilinogen Dipstick 0.2 mg/dL (0.2 mg/dL) Urine Leukocyte Esterase Negative (NEG) Urine RBC >40 /HPF (0-2) Urine WBC 1-4 /HPF (0-4) Urine Squamous Epithelial Cells Occ /LPF Urine Bacteria 0 /HPF (0-FEW) Microbiology 05/21/18 Blood Culture - Preliminary, Resulted NO GROWTH AFTER 3 DAYS 05/19/18 Urine Culture - Final, Complete 05/19/18 Urine Culture Result 1 (FELICITA) - Final, Complete 05/19/18 Anaerobic/Aerobic Culture - Preliminary, Resulted 05/19/18 Anaerobic Culture Result 1 (FELICITA) - Preliminary, Resulted 05/19/18 Aerobic Culture - Final, Resulted 05/19/18 Aerobic Culture Result 1 (FELICITA) - Final, Resulted 05/19/18 Aerobic Culture Result 2 (FELICITA) - Final, Resulted 05/19/18 Antimicrobic Susceptibility - Final, Resulted 05/19/18 Gram Stain - Final, Resulted 05/19/18 Gram Stain Result 1 (FELICITA) - Final, Resulted 05/19/18 Gram Stain Result 2 (FELICITA) - Final, Resulted Medications Current Medications Sodium Chloride 1,000 ml @ 2,190 mls/hr Q28M IV Last administered on at 14:36; Start 05/18/18 at 12:52; Stop 05/18/18 at 13:52; Status DC Piperacillin Sod/ Tazobactam Sod 4.5 gm/Sodium Chloride 100 ml @ 200 mls/hr 1X ONCE IV Last administered on 05/18/18at 14:34; Start 05/18/18 at 13:00; Stop 05/18/18 at 13:29; Status DC Vancomycin HCl (Vanco Per Pharmacy) 1 each 1X ONCE MC Last administered on 01/24at 13:00; Start 05/18/18 at 13:00; Stop 05/18/18 at 13:11; Status DC Vancomycin HCl 2 gm/Sodium Chloride 500 ml @ 250 mls/hr 1X ONCE IV Last administered on 05/18/18at 15:28; Start 05/18/18 at 13:15; Stop 05/18/18 at 15:14 ; Status DC Ondansetron HCl (Zofran) 4 mg PRN Q8HRS PRN IV NAUSEA/VOMITING; Start 05/18/18 at 14:45; Stop 05/18/18 at 15:28; Status DC Fentanyl Citrate (Fentanyl 2ml Vial) 50 mcg PRN Q1HR PRN IV PAIN; Start at 14:45; Stop 05/19/18 at 11:50; Status DC Sodium Chloride 1,000 ml @ 80 mls/hr [id number] IV ; Start 05/18/18 at 14:43; Stop 05/18/18 at 18:42; Status DC Acetaminophen (Tylenol) 650 mg 1X ONCE PO Last administered on 05/18/18at 15:29 ; Start 05/18/18 at 15:30; Stop 05/18/18 at 15:31; Status DC Ondansetron HCl (Zofran) 4 mg PRN Q6HRS PRN IV NAUSEA/VOMITING Last administered on 05/24/18at 06:14; Start 05/18/18 at 15:30 Diltiazem HCl (Cardizem Iv Push) 10 mg 1X ONCE IVP ; Start 05/18/18 at 15:30; Stop 05/18/18 at 15:31; Status DC Acetaminophen (Tylenol) 500 mg PRN Q6HRS PRN PO MILD PAIN / TEMP; Start at 15:30; Stop 05/18/18 at 16:14; Status DC Acetaminophen/ Codeine Phosphate (Tylenol #3) 1 tab PRN Q6HRS PRN PO MODERATE PAIN Last administered on 05/22/18at 16:19; Start 05/18/18 at 15:30 Morphine Sulfate (Morphine Sulfate) 2 mg PRN Q2HR PRN IV PAIN Last administered on 05/24/18at 08:49; Start 05/18/18 at 15:30 Oxycodone/ Acetaminophen (Percocet 5/325) 1 tab PRN Q4HRS PRN PO SEVERE PAIN Last administered on 05/23/18at 11:14; Start 05/18/18 at 15:30 Albuterol Sulfate (Ventolin Hfa) 2 puff PRN Q6HRS PRN IH SHORTNESS OF BREATH; Start 05/18/18 at 15:30; Status UNV Digoxin (Lanoxin) 125 mcg DAILY PO ; Start 05/19/18 at 09:00; Stop 05/19/18 at 09:00; Status DC Furosemide (Lasix) 40 mg DAILY PO Last administered on 05/24/18 08:41; Start 05/19/18 at 09:00 Gabapentin (Neurontin) 300 mg DAILY PO Last administered on 05/24/18 08:42; Start 05/19/18 at 09:00 Lisinopril (Prinivil) 20 mg DAILY PO Last administered on 05/19/18 10:14; Start 05/19/18 at 09:00 Metoprolol Tartrate (Lopressor) 50 mg BID PO Last administered on 05/24/18 08: 41; Start 05/18/18 at 21:00 Oxycodone/ Acetaminophen (Percocet 10/325) 1 tab PRN Q6HRS PRN PO SEVERE PAIN ( 2ND Choice) Last administered on 05/22/18at 17:50; Start 05/18/18 at 15:30 Oxycodone/ Acetaminophen (Percocet 5/325) 1 tab PRN Q4HRS PRN PO PAIN; Start at 15:30; Status UNV Acetaminophen (Tylenol) 500 mg PRN Q6HRS PRN PO MILD PAIN / TEMP Last administered on 05/20/18at 20:08; Start 05/18/18 at 16:15 Atorvastatin Calcium (Lipitor) 80 mg QHS PO Last administered on 05/22/18 21: 25; Start 05/18/18 at 21:00 Hydralazine HCl (Apresoline) 10 mg TID PO Last administered on 05/22/18 21:27 ; Start 05/18/18 at 16:00 Insulin Human Lispro (HumaLOG) 10 units DAILYWBKFT SQ Last administered on 05/23 08:58; Start 05/18/18 at 17:00; Stop 05/23/18 at 14:25; Status DC Levetiracetam (Keppra) 1,250 mg BID PO Last administered on 05/24/18 08:41; Start 05/18/18 at 21:00 Metformin HCl (Glucophage) 1,000 mg BIDWMEALS PO Last administered on 08:42; Start 05/18/18 at 17:00 Multivitamins (Thera M Plus) 1 tab DAILY PO Last administered on 05/24/18 08: 42; Start 05/19/18 at 09:00 Potassium Chloride (Klor-Con) 20 meq DAILYWBKFT PO Last administered on 08:43; Start 05/19/18 at 08:00 Risperidone (RisperDAL) 1 mg QHS PO Last administered on 05/22/18 21:24; Start 05/18/18 at 21:00 Non-Formulary Medication (Rosuvastatin Calcium (Crestor)) 40 mg DAILY PO ; Start 05/19/18 at 09:00; Status UNV Zonisamide (Zonegran) 400 mg DAILY PO Last administered on 05/24/18 08:43; Start 05/19/18 at 09:00 Albuterol/ Ipratropium (Duoneb) 3 ml Q4HRS W/A NEB Last administered on 11:19; Start 05/18/18 at 18:00 Insulin Human Lispro (HumaLOG) 0-9 UNITS TIDWMEALS SQ Last administered on 05/22 17:23; Start 05/18/18 at 17:00 Dextrose (Dextrose 50%-Water Syringe) 12.5 gm PRN Q15MIN PRN IV SEE COMMENTS Last administered on 05/23/18at 13:15; Start 05/18/18 at 15:30 Albuterol Sulfate (Ventolin Neb Soln) 2.5 mg PRN Q6HRS PRN NEB SHORTNESS OF BREATH; Start 05/18/18 at 15:45 Piperacillin Sod/ Tazobactam Sod 3.375 gm/Sodium Chloride 50 ml @ 100 mls/hr Q6HRS IV Last administered on 05/24/18at 05:33; Start 05/18/18 at 18:00; Stop at 08:09; Status DC Potassium Chloride (Klor-Con) 40 meq 1X ONCE PO Last administered on at 10:14; Start 05/19/18 at 08:30; Stop 05/19/18 at 08:31; Status DC Heparin Sodium (Porcine) (Heparin Sodium) 5,000 unit Q8HRS SQ ; Start 05/19/18 at 14:00; Stop 05/19/18 at 14:00; Status DC Furosemide (Lasix) 40 mg 1X ONCE IVP Last administered on 05/19/18at 10:12; Start 05/19/18 at 08:45; Stop 05/19/18 at 08:46; Status DC Phytonadione (Vitamin K Ampule) 10 mg 1X ONCE SQ Last administered on at 10:16; Start 05/19/18 at 10:00; Stop 05/19/18 at 10:01; Status DC Vancomycin HCl (Vanco Per Pharmacy) 1 each PRN DAILY PRN MC SEE COMMENTS Last administered on 05/19/18at 10:32; Start 05/19/18 at 10:00; Stop 05/20/18 at 10:42 ; Status DC Phytonadione (Vitamin K Ampule) 10 mg 1X ONCE SQ ; Start 05/19/18 at 10:15; Stop 05/19/18 at 10:16; Status UNV Vancomycin HCl 1.75 gm/Sodium Chloride 500 ml @ 250 mls/hr Q24H IV Last administered on 05/19/18at 16:59; Start 05/19/18 at 16:00; Stop 05/20/18 at 10:42 ; Status DC Vancomycin HCl (Vancomycin Trough Level) 1 each 1X ONCE MC ; Start 05/20/18 at 16:30; Stop 05/20/18 at 16:30; Status DC Acetaminophen (Tylenol Supp) 650 mg PRN Q6HRS PRN CA MILD PAIN / TEMP Last administered on 05/23/18at 23:33; Start 05/20/18 at 01:15 Sodium Chloride 500 ml @ 333 mls/hr 1X ONCE IV Last administered on at 01:14; Start 05/20/18 at 01:15; Stop 05/20/18 at 02:45; Status DC Phytonadione 5 mg/ Dextrose 50.5 ml @ 101 mls/hr 1X ONCE IV Last administered on 05/20/18at 10:08; Start 05/20/18 at 10:30; Stop 05/20/18 at 10:59 ; Status DC Daptomycin 590 mg/ Sodium Chloride 50 ml @ 100 mls/hr Q24H IV Last administered on 05/23/18at 13:39; Start 05/20/18 at 12:00 Ondansetron HCl (Zofran) 4 mg PRN Q6HRS PRN IV NAUSEA/VOMITING; Start 05/21/18 at 09:45; Stop 05/22/18 at 09:44; Status DC Fentanyl Citrate (Fentanyl 2ml Vial) 25 mcg PRN Q5MIN PRN IV MILD PAIN; Start 05/21/18 at 09:45; Stop 05/22/18 at 09:44; Status DC Fentanyl Citrate (Fentanyl 2ml Vial) 50 mcg PRN Q5MIN PRN IV MODERATE TO SEVERE PAIN; Start 05/21/18 at 09:45; Stop 05/22/18 at 09:44; Status DC Morphine Sulfate (Morphine Sulfate) 1 mg PRN Q10MIN PRN IV SEVERE PAIN; Start 05/21/18 at 09:45; Stop 05/22/18 at 09:44; Status DC Ringer's Solution 1,000 ml @ 30 mls/hr Q24H IV ; Start 05/21/18 at 09:39; Stop 05/22/18 at 00:37; Status DC Lidocaine HCl (Xylocaine-Mpf 1% 2ml Vial) 2 ml 1X PRN PRN ID IV START; Start at 09:45; Stop 05/22/18 at 09:44; Status DC Hydromorphone HCl (Dilaudid) 0.5 mg PRN Q10MIN PRN IV SEV PAIN, Second choice; Start 05/21/18 at 09:45; Stop 05/22/18 at 09:44; Status DC Prochlorperazine Edisylate (Compazine) 5 mg PACU PRN PRN IV NAUSEA, MRX1; Start 05/21/18 at 09:45; Stop 05/22/18 at 09:44; Status DC Lidocaine HCl (Glydo (Lidocaine) Jelly) 1 vianney 1X ONCE MM ; Start 05/21/18 at 12 :30; Stop 05/21/18 at 12:31; Status DC Propofol 20 ml @ As Directed STK-MED ONCE IV ; Start 05/21/18 at 12:27; Stop at 12:28; Status DC Dexamethasone Sodium Phosphate (Decadron) 20 mg STK-MED ONCE .ROUTE ; Start at 12:27; Stop 05/21/18 at 12:28; Status DC Famotidine (Pepcid Vial) 20 mg STK-MED ONCE .ROUTE ; Start 05/21/18 at 12:27; Stop 05/21/18 at 12:28; Status DC Lidocaine HCl (Lidocaine Pf 2% Vial) 5 ml STK-MED ONCE .ROUTE ; Start 05/21/18 at 12:27; Stop 05/21/18 at 12:28; Status DC Ondansetron HCl (Zofran) 4 mg STK-MED ONCE .ROUTE ; Start 05/21/18 at 12:27; Stop 05/21/18 at 12:28; Status DC Fentanyl Citrate (Fentanyl 2ml Vial) 100 mcg STK-MED ONCE .ROUTE ; Start at 12:27; Stop 05/21/18 at 12:28; Status DC Bacitracin 68092 unit/Sodium Chloride 500 ml @ 500 mls/hr 1X ONCE IRR ; Start 05/21/18 at 12:40; Stop 05/21/18 at 13:39; Status DC Cefazolin Sodium 1 gm/Sodium Chloride 500 ml @ 500 mls/hr 1X ONCE IRR ; Start 05/21/18 at 12:40; Stop 05/21/18 at 13:39; Status DC Lidocaine HCl 20 ml STK-MED ONCE .ROUTE ; Start 05/21/18 at 11:42; Stop at 12:42; Status DC Esmolol HCl (Brevibloc) 100 mg STK-MED ONCE IVP ; Start 05/21/18 at 13:01; Stop 05/21/18 at 13:02; Status DC Esmolol HCl (Brevibloc) 100 mg STK-MED ONCE IVP ; Start 05/21/18 at 14:22; Stop 05/21/18 at 14:23; Status DC Neomycin/ Polymyxin/ Bacitracin (Triple Antibiotic Ointment) 1 pkt STK-MED ONCE TP Last administered on 05/21/18at 14:41; Start 05/21/18 at 13:38; Stop at 14:38; Status DC Sevoflurane (Ultane) 90 ml STK-MED ONCE IH ; Start 05/21/18 at 14:40; Stop 05/21 at 14:41; Status DC Naloxone HCl (Narcan) 0.4 mg PRN Q2MIN PRN IV SEE INSTRUCTIONS; Start 05/21/18 at 15:00 Sodium Chloride 1,000 ml @ 25 mls/hr Q24H IV ; Start 05/21/18 at 14:57; Stop at 07:00; Status DC Morphine Sulfate 30 ml @ 0 mls/hr CONT PRN PRN IV PER PROTOCOL; Start 05/21/18 at 15:00 Labetalol HCl (Normodyne Iv Push) 20 mg PRN Q2HR PRN IVP HYPERTENSION, SEE COMMENTS Last administered on 05/24/18at 00:15; Start 05/21/18 at 15:30 Labetalol HCl (Normodyne Iv Push) 5 mg 1X PACU PRN IVP tachycardia and HTN Last administered on 05/21/18at 15:30; Start 05/21/18 at 15:30; Stop 05/22/18 at 09:09; Status DC Insulin Glargine (Lantus) 3 units 1X ONCE SQ Last administered on 05/21/18at 22 :00; Start 05/21/18 at 22:00; Stop 05/22/18 at 01:31; Status DC Aspirin (Ecotrin) 81 mg DAILYWBKFT PO Last administered on 05/24/18at 08:41; Start 05/23/18 at 08:00 Digoxin (Lanoxin) 250 mcg 1X ONCE IV Last administered on 05/22/18at 12:28; Start 05/22/18 at 12:30; Stop 05/22/18 at 12:31; Status DC Warfarin Sodium (Coumadin) 6 mg [id number] PO ; Start 05/22/18 at 16:00; Stop 05/22 at 16:00; Status DC Warfarin Sodium (Coumadin) 2.5 mg 3X/WEEK PO ; Start 05/23/18 at 09:00; Status UNV Warfarin Sodium (Coumadin Per Physician) 1 each PRN DAILY PRN MC SEE COMMENTS; Start 05/22/18 at 14:45; Stop 05/22/18 at 14:57; Status DC Warfarin Sodium (Coumadin Per Pharmacy) 1 each PRN DAILY PRN MC SEE COMMENTS Last administered on 05/23/18at 09:49; Start 05/22/18 at 15:00 Warfarin Sodium (Coumadin) 4 mg 1X WARF ONCE PO Last administered on at 16:19; Start 05/22/18 at 16:00; Stop 05/22/18 at 16:01; Status DC Warfarin Sodium (Coumadin) 4 mg 1X WARF ONCE PO ; Start 05/23/18 at 16:00; Stop 05/23/18 at 16:01; Status DC Ringer's Solution 1,000 ml @ 75 mls/hr [id number] IV ; Start 05/23/18 at 13:45; Status Cancel Ringer's Solution 1,000 ml @ 75 mls/hr [id number] IV Last administered on at 05:34; Start 05/23/18 at 14:00 Insulin Human Lispro (HumaLOG) 7 units [id number] SQ ; Start 05/24/18 at 08:00 Dextrose (Dextrose 50%-Water Syringe) 25 gm 1X ONCE IV Last administered on at 13:15; Start 05/23/18 at 17:45; Stop 05/23/18 at 17:46; Status DC Meropenem 500 mg/ Sodium Chloride 50 ml @ 100 mls/hr Q6HRS IV Last administered on 05/24/18at 12:22; Start 05/24/18 at 12:00 Active Scripts Active Digoxin 125 Mcg Tablet 125 Mcg PO DAILY Furosemide 40 Mg Tablet 40 Mg PO DAILY Metoprolol Tartrate 50 Mg Tablet 50 Mg PO BID [Warfarin Sodium] 1 EACH Each 1 Each MC PRN DAILY PRN Lisinopril 20 Mg Tablet 20 Mg PO DAILY Duoneb 0.5-3(2.5) Mg/3 Ml (Albuterol/Ipratropium) 3 Ml Ampul.neb 3 Ml NEB Q4HRS W/A 30 Days Hydralazine Hcl 10 Mg Tablet 10 Mg PO TID Reported Zonisamide 100 Mg Capsule 400 Mg PO DAILY Percocet 5-325 Mg Tablet (Oxycodone/Acetaminophen) 1 Each Tablet 1 Tab PO PRN Q4HRS PRN Multivitamins (Multivitamin) 1 Each Tablet 1 Tab PO DAILY Levetiracetam 250 Mg Tablet 1,250 Mg PO BID Novolin N (Nph, Human Insulin Isophane) 100 Unit/1 Ml Vial Unknown Dose SQ Atorvastatin Calcium 80 Mg Tablet 1 Tab PO DAILY Acetaminophen 500 Mg Tablet 1 Tab PO PRN Q6HRS PRN Albuterol Sulfate Hfa Inhaler (Albuterol Sulfate) 8.5 Gm Hfa.aer.ad 2 Puff IH PRN Q6HRS PRN Aspirin Ec (Aspirin) 325 Mg Tablet.dr 81 Mg PO DAILY Crestor (Rosuvastatin Calcium) 40 Mg Tablet 40 Mg PO DAILY Warfarin Sodium 5 Mg Tablet 6 Mg PO DAILY Warfarin Sodium 2.5 Mg Tablet 2.5 Mg PO 3X/WEEK monday,monday, Gabapentin (Gabapentin) 300 Mg Capsule 300 Mg PO DAILY Risperidone 1 Mg Tablet 1 Mg PO HS Novolog (Insulin Aspart) 100 Unit/1 Ml Vial 10 Unit SQ DAILYAC Oxycodone-Acetaminophen 10-325 (Oxycodone Hcl/Acetaminophen) 1 Each Tablet 1 Each PO PRN Q6HRS Potassium 99 Mg Tablet 20 Meq PO DAILY Prednisone (Prednisone) 10 Mg Tablet 10 Mg PO DAILY Metformin Hcl 500 Mg Tablet 1,000 Mg PO BIDBFRMEAL Vitals/I & O Vital Sign - Last 24 Hours 05/23/18 05/23/18 05/23/18 05/23/18 13:00 13:00 14:00 14:00 Temp 97.9 98.1 98.4 97.9 98.1 98.4 Pulse 72 72 74 74 Resp 14 14 15 B/P (MAP) 82/49 (60) 82/49 (60) 114/44 114/44 (67) Pulse Ox 86 86 85 O2 Delivery Room Air Room Air Nasal Cannula O2 Flow Rate 2.0 05/23/18 05/23/18 05/23/18 05/23/18 14:00 15:00 15:55 16:00 Temp 98.0 98.9 98.0 98.9 Pulse 74 68 Resp 15 24 B/P (MAP) 114/44 (67) 99/44 (62) Pulse Ox 85 95 96 O2 Delivery Room Air Nasal Cannula Nasal Cannula Room Air O2 Flow Rate 2.0 1.0 2.0 05/23/18 05/23/18 05/23/18 05/23/18 16:00 16:00 18:10 19:00 Temp 100.0 100.0 100.6 97.7 100.0 100.0 100.6 97.7 Pulse 68 68 73 73 Resp 15 21 18 18 B/P (MAP) 104/48 (66) 104/48 (66) 119/47 (71) 138/63 (88) Pulse Ox 100 100 93 97 O2 Delivery Nasal Cannula Nasal Cannula Nasal Cannula Nasal Cannula O2 Flow Rate 2.0 2.0 1.0 1.0 05/23/18 05/23/18 05/23/18 05/23/18 19:44 20:00 23:00 23:49 Temp 101.7 101.7 Pulse 92 Resp 20 20 B/P (MAP) 169/100 (123) Pulse Ox 96 98 98 O2 Delivery Room Air Room Air Nasal Cannula Nasal Cannula O2 Flow Rate 1.0 1.0 1.0 05/24/18 05/24/18 05/24/18 05/24/18 00:15 00:19 00:59 03:00 Temp 100.6 100.6 Pulse 109 79 Resp 18 20 B/P (MAP) 169/100 152/98 (116) 129/62 (84) Pulse Ox 95 O2 Delivery Nasal Cannula O2 Flow Rate 1.0 1.0 05/24/18 05/24/18 05/24/18 05/24/18 05:57 07:00 07:03 07:10 Temp 98.4 98.4 Pulse 78 Resp 18 18 B/P (MAP) 108/62 (77) Pulse Ox 99 97 98 O2 Delivery Nasal Cannula Nasal Cannula Nasal Cannula Room Air O2 Flow Rate 1.0 1.0 1.0 05/24/18 05/24/18 05/24/18 05/24/18 08:41 08:45 08:46 08:49 Pulse 78 78 78 B/P (MAP) 108/62 108/62 108/62 Pulse Ox 98 O2 Delivery Room Air 05/24/18 05/24/18 05/24/18 09:20 10:52 11:21 Temp 99.5 99.5 Pulse 67 Resp 18 B/P (MAP) 130/58 (82) Pulse Ox 98 96 O2 Delivery Room Air Nasal Cannula Nasal Cannula O2 Flow Rate 1.0 1.0 Intake and Output 05/23/18 05/23/18 05/24/18 15:00 23:00 07:00 Intake Total 0 ml 2320 ml Output Total 700 ml 700 ml Balance -700 ml 1620 ml Nutrition Consultation Dietary Evaluation: Recommendations by RD: Increase Calorie Intake, Protein supplementation Comments: REC ADA/cardiac diet per pmhx, will adjust diet order REC Cristhian BID REC continue MVI Expected Outcomes/Goals: PO intake to meet >75% est needs Malnutrition Findings: Food and Nutrition Intake (Mod: <75% est energy req 7days Weight Status: Appropriate NEHAL NELSON MD May 24, 2018 12:40
--- NOTE | 2018-05-24 14:22 | NUR ---
Pharmacy Warfarin Dosing Note S:Pharmacy consulted to assist with anticoagulation therapy started with target INR: 2 -3 O:VICKI BRAUN is a 78 year old M with Atrial Fibrillation LABS: Last INR: 1.5 Last HGB: 8.4 Last HCT: 26.2 Last PLT: 198 Last dose of NOT ALERT TO TAKE 05/23 given on 05/22/18 at 1619 Previous Regimen: 4mg/day except 2 mg Sat/Sun Vitamin K given: Y 05/19: 10 MG SUB-Q, 05/20: 5 MG IV Drug Interaction Changes: New Interacting Drug Ongoing Drug Interactions: Zosyn A:INR of 1.5 is below desired range. Target range for this patient is: 2 -3 P: Warfarin dose: 6 mg Today at 1600 Bridge Therapy: None Next INR due IN AM Pharmacy anticoagulation service will continue to follow. ANTHONY RODRIGUES [facility], 05/24/18 [id number]
--- NOTE | 2018-05-24 15:11 | PDOC ---
MATT CIFUENTES [employer]ER 05/24/18 1511: CARDIO Progress Notes Date and Time Date of Service 05/24/18 Time of Evaluation 1440 Vitals Vitals Vital Signs Date Time Temp Pulse Resp B/P (MAP) Pulse Ox O2 Delivery O2 Flow Rate FiO2 05/24/18 14:34 96 Room Air 05/24/18 11:21 1.0 05/24/18 10:52 99.5 67 18 130/58 (82) 99.5 Weight Weight [ ] Input and Output Intake and Output Intake and Output 05/24/18 07:00 Intake Total 2320 ml Output Total 1400 ml Balance 920 ml Intake Oral 1320 ml IV Total 1000 ml Output Urine Total 1400 ml # Bowel Movements 1 Laboratory Labs Laboratory Tests Test 05/23/18 17:37 05/23/18 20:25 05/24/18 03:00 05/24/18 09:45 Glucose (Fingerstick) 138 mg/dL (70-99) 125 mg/dL (70-99) White Blood Count 11.0 x10^3/uL (4.0-11.0) Red Blood Count 3.20 x10^6/uL (4.30-5.70) Hemoglobin 8.5 g/dL (13.0-17.5) Hematocrit 26.9 % (39.0-53.0) Mean Corpuscular Volume 84 fL (79-100) Mean Corpuscular Hemoglobin 27 pg (25-35) Mean Corpuscular Hemoglobin Concent 32 g/dL (31-37) Red Cell Distribution Width 16.3 % (11.5-14.5) Platelet Count 196 x10^3/uL (140-400) Neutrophils (%) (Auto) 86 % (31-73) Lymphocytes (%) (Auto) 6 % (24-48) Monocytes (%) (Auto) 7 % (0-9) Eosinophils (%) (Auto) 1 % (0-3) Basophils (%) (Auto) 0 % (0-3) Neutrophils # (Auto) 9.4 x10^3uL (1.8-7.7) Lymphocytes # (Auto) 0.7 x10^3/uL (1.0-4.8) Monocytes # (Auto) 0.7 x10^3/uL (0.0-1.1) Eosinophils # (Auto) 0.1 x10^3/uL (0.0-0.7) Basophils # (Auto) 0.0 x10^3/uL (0.0-0.2) Prothrombin Time 17.5 SEC (11.7-14.0) Prothromb Time International Ratio 1.5 (0.8-1.1) Sodium Level 138 mmol/L (136-145) Potassium Level 3.9 mmol/L (3.5-5.1) Chloride Level 101 mmol/L (98-107) Carbon Dioxide Level 27 mmol/L (21-32) Anion Gap 10 (6-14) Blood Urea Nitrogen 30 mg/dL (8-26) Creatinine 1.7 mg/dL (0.7-1.3) Estimated GFR (Cockcroft-Gault) 39.4 Glucose Level 135 mg/dL (70-99) Calcium Level 8.1 mg/dL (8.5-10.1) Phosphorus Level 1.8 mg/dL (2.6-4.7) Albumin 1.8 g/dL (3.4-5.0) Urine Collection Type Unknown Urine Color Yellow Urine Clarity Clear Urine pH 6.5 Urine Specific [place] 1.015 Urine Protein Negative mg/dL (NEG-TRACE) Urine Glucose (UA) Negative mg/dL (NEG) Urine Ketones (Stick) Negative mg/dL (NEG) Urine Blood Large (NEG) Urine Nitrite Negative (NEG) Urine Bilirubin Negative (NEG) Urine Urobilinogen Dipstick 0.2 mg/dL (0.2 mg/dL) Urine Leukocyte Esterase Negative (NEG) Urine RBC >40 /HPF (0-2) Urine WBC 1-4 /HPF (0-4) Urine Squamous Epithelial Cells Occ /LPF Urine Bacteria 0 /HPF (0-FEW) Test 05/24/18 11:42 Glucose (Fingerstick) 123 mg/dL (70-99) Microbiology Micro Microbiology 05/21/18 Blood Culture - Preliminary, Resulted NO GROWTH AFTER 3 DAYS 05/19/18 Urine Culture - Final, Complete 05/19/18 Urine Culture Result 1 (FELICITA) - Final, Complete 05/19/18 Anaerobic/Aerobic Culture - Preliminary, Resulted 05/19/18 Anaerobic Culture Result 1 (FELICITA) - Preliminary, Resulted 05/19/18 Aerobic Culture - Final, Resulted 05/19/18 Aerobic Culture Result 1 (FELICITA) - Final, Resulted 05/19/18 Aerobic Culture Result 2 (FELICITA) - Final, Resulted 05/19/18 Antimicrobic Susceptibility - Final, Resulted 05/19/18 Gram Stain - Final, Resulted 05/19/18 Gram Stain Result 1 (FELICITA) - Final, Resulted 05/19/18 Gram Stain Result 2 (FELICITA) - Final, Resulted Physical Exam HEENT: Neck Supple W Full Motion Chest: Symmetric LUNGS: Other (diminished bases) Heart: S1S2, irregularly irregular (AFIB) Abdomen: Soft N/T Extremities: Other (RBKA, left foot with dry dressing) Neurology: alert, follow commands Assessment Assessment 1. PAD;s/p amputation 2. permanent AFIB 3. CAD; s/p CABG x4 (AGUILAR to LAD, SVG to D2, SVG to OM and SVG to PDA with AVR 2013 4. Bovine AVR: recent CRYSTAL, noted stable with no vegetations/thrombus/mass 5. Ischemic cardiomyopathy/chronic diastolic/systolic CHF: compensated with EF at 35-40% 6. DM2/HLP: uncontrolled. per PCP 7. HTN: controlled 8. Metabolic encephalopathy: 1 hour of unresponsiveness this am, back to baseline Recommendations Continue ASA, statin, warfarin, BB, Resume lisinopril if BP remains consistently adequate. Supportive care Hospice upon discharge ADDIS TOM MD 05/24/18 [id number]: CARDIO Progress Notes Plan Plan Patient seen and examined. Agree with above nurse practitioner note. Discussed with primary physician. MATT CIFUENTES APRN May 24, 2018 15:11 ADDIS TOM MD May 24, 2018 18:38
[2018-05-24] MEDS ORDERED: WARFARIN 3 MG TABLET. PO ONE (16:00)
--- NOTE | 2018-05-24 17:32 | PDOC2 ---
PALLIATIVE CARE Palliative Care Note Palliative Care Met with patient and his . They would like to go home with [facility] when discharged. Discussed Code Status; patient remains undecided. DEANDRA LACY May 24, 2018 17:32
[2018-05-24] MEDS: ACETAMINOPHEN 500 MG TABLET PO PRN (21:23)
[2018-05-24] MEDS: ATORVASTATIN CALCIUM 40 MG TABLET. PO SCH (21:26)
[2018-05-24] MEDS: risperiDONE 1 MG TABLET. PO SCH (21:47)
[2018-05-25] VITALS (7 sets, daily range): BP systolic 108–152; BP diastolic 39–69
[2018-05-25] MEDS: MEROPENEM 500 MG in IV NORMAL SALINE 50ML 50 ML IV SCH ×5 (00:03→23:57)
[2018-05-25 05:23] LABS: BASO % 0 % (0-3); EOS # 0.2 x10^3/uL (0.0-0.7); EOS % 2 % (0-3); HEMATOCRIT 26.2 % (39.0-53.0); HEMOGLOBIN 8.3 g/dL (13.0-17.5); LYMPH # 0.7 x10^3/uL (1.0-4.8); LYMPH % 7 % (24-48); MEAN CORPUSCULAR HEMOGLOBIN 27 pg (25-35); MEAN CORPUSCULAR HGB CONC 32 g/dL (31-37); MEAN CORPUSCULAR VOLUME 86 fL (79-100); MONO % 10 % (0-9); NEUT # 8.6 x10^3uL (1.8-7.7); NEUT % 81 % (31-73); PLATELET COUNT 194 x10^3/uL (140-400); RED BLOOD COUNT 3.06 x10^6/uL (4.30-5.70); RED CELL DISTRIBUTION WIDTH 16.3 % (11.5-14.5); WHITE BLOOD COUNT 10.6 x10^3/uL (4.0-11.0)
[2018-05-25 05:33] LABS: PROTHROMBIN TIME PATIENT 17.8 SEC (11.7-14.0)
[2018-05-25 05:49] LABS: ALBUMIN 1.6 g/dL (3.4-5.0); CALCIUM 8.1 mg/dL (8.5-10.1); CREATININE 1.5 mg/dL (0.7-1.3); GFR 45.5; PHOSPHORUS 2.2 mg/dL (2.6-4.7); POTASSIUM 3.7 mmol/L (3.5-5.1)
[2018-05-25] MEDS: IPRATRPIUM/ALBUTEROL 0.5/2.5MG 3 ML NEBU. NEB SCH ×5 (06:00→22:00)
[2018-05-25] MEDS: DEXTROSE 50% 25 GM / 50ML DISP.SYRIN. IV PRN (06:04)
[2018-05-25] MEDS: IV RINGERS,LACTATED 1000ML 1,000 ML IV SCH ×2 (06:06→16:58)
--- NOTE | 2018-05-25 06:27 | NUR ---
Pt BS checked at 0603, BS 34. Gave 1 amp dextrose. BS rechecked in 15 min, BS 182.
[2018-05-25] MEDS: INSULIN LISPRO 300 UNITS/3 ML INSULN.PEN. SQ SCH ×4 (08:00→17:00)
--- NOTE | 2018-05-25 08:12 | PDOC ---
PROGRESS NOTES Chief Complaint Chief Complaint Severe sepsis cellulitis w/ gangrenous toes A. 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 CRYSTAL done concurrently showing EF 35-40%, no valvular vegetations noted. 05/23: Overnight BP was low, blood glucose low. Today more alert. Some pain in entire right leg, marked weakness. Hypoglycemic to 35 Pt denies any chest pain - no palpitations. No nausea or vomiting or diarrhea. + dyspnea and weakness today. On O2 currently Staph on blood cultures. MRSA on left ankle Plan: Cont empiric antibiotics - MRSA screen positive and GPC bacteremia, high risk MRSA, now on daptomycin and merrem per ID consultation PT/OT He was on home hospice, will need to discuss goals of care ultimately F/u cultures Blood glucose control Pain control HR control Ok to transfer out of [facility] Vitals Vitals Vital Signs Date Time Temp Pulse Resp B/P (MAP) Pulse Ox O2 Delivery O2 Flow Rate FiO2 05/25/18 07:16 91 Nasal Cannula 1.0 05/25/18 07:00 98.5 59 18 133/63 (86) 98.5 Physical Exam Physical Exam GENERAL: Resting quietly HEENT: Pupils equally round, reactive. Normal conjunctivae. Oral cavity, pharynx pink, dry NECK: Supple. LUNGS: Clear to auscultation. HEART: S1 and S2, soft murmur. Irregular. ABDOMEN: Obese, soft and nontender with bowel sounds present. GENITOURINARY: Indwelling Crawley in place. EXTREMITIES: Trace edema in lower extremities bilaterally. Rt BKA dressing and drain in place ,intact lt foot dressing intact, dry SKIN: Warm without rash. No peripheral stigmata. Several tattoos. 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 and 2 gangrenous toes on the right, chronic hyperpigmentation bilateral shins and foot) Labs LABS Laboratory Tests Test 05/24/18 09:45 05/24/18 11:42 05/24/18 16:28 05/24/18 20:12 Urine Collection Type Unknown Urine Color Yellow Urine Clarity Clear Urine pH 6.5 Urine Specific [place] 1.015 Urine Protein Negative mg/dL (NEG-TRACE) Urine Glucose (UA) Negative mg/dL (NEG) Urine Ketones (Stick) Negative mg/dL (NEG) Urine Blood Large (NEG) Urine Nitrite Negative (NEG) Urine Bilirubin Negative (NEG) Urine Urobilinogen Dipstick 0.2 mg/dL (0.2 mg/dL) Urine Leukocyte Esterase Negative (NEG) Urine RBC >40 /HPF (0-2) Urine WBC 1-4 /HPF (0-4) Urine Squamous Epithelial Cells Occ /LPF Urine Bacteria 0 /HPF (0-FEW) Glucose (Fingerstick) 123 mg/dL (70-99) 124 mg/dL (70-99) 133 mg/dL (70-99) Test 05/25/18 04:30 05/25/18 05:58 05/25/18 06:24 05/25/18 07:35 White Blood Count 10.6 x10^3/uL (4.0-11.0) Red Blood Count 3.06 x10^6/uL (4.30-5.70) Hemoglobin 8.3 g/dL (13.0-17.5) Hematocrit 26.2 % (39.0-53.0) Mean Corpuscular Volume 86 fL (79-100) Mean Corpuscular Hemoglobin 27 pg (25-35) Mean Corpuscular Hemoglobin Concent 32 g/dL (31-37) Red Cell Distribution Width 16.3 % (11.5-14.5) Platelet Count 194 x10^3/uL (140-400) Neutrophils (%) (Auto) 81 % (31-73) Lymphocytes (%) (Auto) 7 % (24-48) Monocytes (%) (Auto) 10 % (0-9) Eosinophils (%) (Auto) 2 % (0-3) Basophils (%) (Auto) 0 % (0-3) Neutrophils # (Auto) 8.6 x10^3uL (1.8-7.7) Lymphocytes # (Auto) 0.7 x10^3/uL (1.0-4.8) Monocytes # (Auto) 1.0 x10^3/uL (0.0-1.1) Eosinophils # (Auto) 0.2 x10^3/uL (0.0-0.7) Basophils # (Auto) 0.0 x10^3/uL (0.0-0.2) Prothrombin Time 17.8 SEC (11.7-14.0) Prothromb Time International Ratio 1.5 (0.8-1.1) Sodium Level 137 mmol/L (136-145) Potassium Level 3.7 mmol/L (3.5-5.1) Chloride Level 101 mmol/L (98-107) Carbon Dioxide Level 28 mmol/L (21-32) Anion Gap 8 (6-14) Blood Urea Nitrogen 25 mg/dL (8-26) Creatinine 1.5 mg/dL (0.7-1.3) Estimated GFR (Cockcroft-Gault) 45.5 Glucose Level 121 mg/dL (70-99) Calcium Level 8.1 mg/dL (8.5-10.1) Phosphorus Level 2.2 mg/dL (2.6-4.7) Albumin 1.6 g/dL (3.4-5.0) Glucose (Fingerstick) 34 mg/dL (70-99) 182 mg/dL (70-99) 172 mg/dL (70-99) Assessment and Plan Assessmemt and Plan Problems Medical Problems: (1) Fever Status: Acute (2) Gangrene of toe Status: Acute (3) Leukocytosis Status: Acute (4) Severe sepsis Status: Acute Comment Review of Relevant I have reviewed the following items navi (where applicable) has been applied. Labs Laboratory Tests Test 05/23/18 12:46 05/23/18 13:29 05/23/18 14:21 05/23/18 17:37 Glucose (Fingerstick) 47 mg/dL (70-99) 73 mg/dL (70-99) 127 mg/dL (70-99) 138 mg/dL (70-99) Test 05/23/18 20:25 05/24/18 03:00 05/24/18 09:45 05/24/18 11:42 Glucose (Fingerstick) 125 mg/dL (70-99) 123 mg/dL (70-99) White Blood Count 11.0 x10^3/uL (4.0-11.0) Red Blood Count 3.20 x10^6/uL (4.30-5.70) Hemoglobin 8.5 g/dL (13.0-17.5) Hematocrit 26.9 % (39.0-53.0) Mean Corpuscular Volume 84 fL (79-100) Mean Corpuscular Hemoglobin 27 pg (25-35) Mean Corpuscular Hemoglobin Concent 32 g/dL (31-37) Red Cell Distribution Width 16.3 % (11.5-14.5) Platelet Count 196 x10^3/uL (140-400) Neutrophils (%) (Auto) 86 % (31-73) Lymphocytes (%) (Auto) 6 % (24-48) Monocytes (%) (Auto) 7 % (0-9) Eosinophils (%) (Auto) 1 % (0-3) Basophils (%) (Auto) 0 % (0-3) Neutrophils # (Auto) 9.4 x10^3uL (1.8-7.7) Lymphocytes # (Auto) 0.7 x10^3/uL (1.0-4.8) Monocytes # (Auto) 0.7 x10^3/uL (0.0-1.1) Eosinophils # (Auto) 0.1 x10^3/uL (0.0-0.7) Basophils # (Auto) 0.0 x10^3/uL (0.0-0.2) Prothrombin Time 17.5 SEC (11.7-14.0) Prothromb Time International Ratio 1.5 (0.8-1.1) Sodium Level 138 mmol/L (136-145) Potassium Level 3.9 mmol/L (3.5-5.1) Chloride Level 101 mmol/L (98-107) Carbon Dioxide Level 27 mmol/L (21-32) Anion Gap 10 (6-14) Blood Urea Nitrogen 30 mg/dL (8-26) Creatinine 1.7 mg/dL (0.7-1.3) Estimated GFR (Cockcroft-Gault) 39.4 Glucose Level 135 mg/dL (70-99) Calcium Level 8.1 mg/dL (8.5-10.1) Phosphorus Level 1.8 mg/dL (2.6-4.7) Albumin 1.8 g/dL (3.4-5.0) Urine Collection Type Unknown Urine Color Yellow Urine Clarity Clear Urine pH 6.5 Urine Specific [place] 1.015 Urine Protein Negative mg/dL (NEG-TRACE) Urine Glucose (UA) Negative mg/dL (NEG) Urine Ketones (Stick) Negative mg/dL (NEG) Urine Blood Large (NEG) Urine Nitrite Negative (NEG) Urine Bilirubin Negative (NEG) Urine Urobilinogen Dipstick 0.2 mg/dL (0.2 mg/dL) Urine Leukocyte Esterase Negative (NEG) Urine RBC >40 /HPF (0-2) Urine WBC 1-4 /HPF (0-4) Urine Squamous Epithelial Cells Occ /LPF Urine Bacteria 0 /HPF (0-FEW) Test 05/24/18 16:28 05/24/18 20:12 05/25/18 04:30 05/25/18 05:58 Glucose (Fingerstick) 124 mg/dL (70-99) 133 mg/dL (70-99) 34 mg/dL (70-99) White Blood Count 10.6 x10^3/uL (4.0-11.0) Red Blood Count 3.06 x10^6/uL (4.30-5.70) Hemoglobin 8.3 g/dL (13.0-17.5) Hematocrit 26.2 % (39.0-53.0) Mean Corpuscular Volume 86 fL (79-100) Mean Corpuscular Hemoglobin 27 pg (25-35) Mean Corpuscular Hemoglobin Concent 32 g/dL (31-37) Red Cell Distribution Width 16.3 % (11.5-14.5) Platelet Count 194 x10^3/uL (140-400) Neutrophils (%) (Auto) 81 % (31-73) Lymphocytes (%) (Auto) 7 % (24-48) Monocytes (%) (Auto) 10 % (0-9) Eosinophils (%) (Auto) 2 % (0-3) Basophils (%) (Auto) 0 % (0-3) Neutrophils # (Auto) 8.6 x10^3uL (1.8-7.7) Lymphocytes # (Auto) 0.7 x10^3/uL (1.0-4.8) Monocytes # (Auto) 1.0 x10^3/uL (0.0-1.1) Eosinophils # (Auto) 0.2 x10^3/uL (0.0-0.7) Basophils # (Auto) 0.0 x10^3/uL (0.0-0.2) Prothrombin Time 17.8 SEC (11.7-14.0) Prothromb Time International Ratio 1.5 (0.8-1.1) Sodium Level 137 mmol/L (136-145) Potassium Level 3.7 mmol/L (3.5-5.1) Chloride Level 101 mmol/L (98-107) Carbon Dioxide Level 28 mmol/L (21-32) Anion Gap 8 (6-14) Blood Urea Nitrogen 25 mg/dL (8-26) Creatinine 1.5 mg/dL (0.7-1.3) Estimated GFR (Cockcroft-Gault) 45.5 Glucose Level 121 mg/dL (70-99) Calcium Level 8.1 mg/dL (8.5-10.1) Phosphorus Level 2.2 mg/dL (2.6-4.7) Albumin 1.6 g/dL (3.4-5.0) Test 05/25/18 06:24 05/25/18 07:35 Glucose (Fingerstick) 182 mg/dL (70-99) 172 mg/dL (70-99) Laboratory Tests Test 05/24/18 09:45 05/24/18 11:42 05/24/18 16:28 05/24/18 20:12 Urine Collection Type Unknown Urine Color Yellow Urine Clarity Clear Urine pH 6.5 Urine Specific [place] 1.015 Urine Protein Negative mg/dL (NEG-TRACE) Urine Glucose (UA) Negative mg/dL (NEG) Urine Ketones (Stick) Negative mg/dL (NEG) Urine Blood Large (NEG) Urine Nitrite Negative (NEG) Urine Bilirubin Negative (NEG) Urine Urobilinogen Dipstick 0.2 mg/dL (0.2 mg/dL) Urine Leukocyte Esterase Negative (NEG) Urine RBC >40 /HPF (0-2) Urine WBC 1-4 /HPF (0-4) Urine Squamous Epithelial Cells Occ /LPF Urine Bacteria 0 /HPF (0-FEW) Glucose (Fingerstick) 123 mg/dL (70-99) 124 mg/dL (70-99) 133 mg/dL (70-99) Test 05/25/18 04:30 05/25/18 05:58 05/25/18 06:24 05/25/18 07:35 White Blood Count 10.6 x10^3/uL (4.0-11.0) Red Blood Count 3.06 x10^6/uL (4.30-5.70) Hemoglobin 8.3 g/dL (13.0-17.5) Hematocrit 26.2 % (39.0-53.0) Mean Corpuscular Volume 86 fL (79-100) Mean Corpuscular Hemoglobin 27 pg (25-35) Mean Corpuscular Hemoglobin Concent 32 g/dL (31-37) Red Cell Distribution Width 16.3 % (11.5-14.5) Platelet Count 194 x10^3/uL (140-400) Neutrophils (%) (Auto) 81 % (31-73) Lymphocytes (%) (Auto) 7 % (24-48) Monocytes (%) (Auto) 10 % (0-9) Eosinophils (%) (Auto) 2 % (0-3) Basophils (%) (Auto) 0 % (0-3) Neutrophils # (Auto) 8.6 x10^3uL (1.8-7.7) Lymphocytes # (Auto) 0.7 x10^3/uL (1.0-4.8) Monocytes # (Auto) 1.0 x10^3/uL (0.0-1.1) Eosinophils # (Auto) 0.2 x10^3/uL (0.0-0.7) Basophils # (Auto) 0.0 x10^3/uL (0.0-0.2) Prothrombin Time 17.8 SEC (11.7-14.0) Prothromb Time International Ratio 1.5 (0.8-1.1) Sodium Level 137 mmol/L (136-145) Potassium Level 3.7 mmol/L (3.5-5.1) Chloride Level 101 mmol/L (98-107) Carbon Dioxide Level 28 mmol/L (21-32) Anion Gap 8 (6-14) Blood Urea Nitrogen 25 mg/dL (8-26) Creatinine 1.5 mg/dL (0.7-1.3) Estimated GFR (Cockcroft-Gault) 45.5 Glucose Level 121 mg/dL (70-99) Calcium Level 8.1 mg/dL (8.5-10.1) Phosphorus Level 2.2 mg/dL (2.6-4.7) Albumin 1.6 g/dL (3.4-5.0) Glucose (Fingerstick) 34 mg/dL (70-99) 182 mg/dL (70-99) 172 mg/dL (70-99) Microbiology 05/21/18 Blood Culture - Preliminary, Resulted NO GROWTH AFTER 4 DAYS 05/19/18 Urine Culture - Final, Complete 05/19/18 Urine Culture Result 1 (FELICITA) - Final, Complete 05/19/18 Anaerobic/Aerobic Culture - Final, Complete 05/19/18 Anaerobic Culture Result 1 (FELICITA) - Final, Complete 05/19/18 Aerobic Culture - Final, Complete 05/19/18 Aerobic Culture Result 1 (FELICITA) - Final, Complete 05/19/18 Aerobic Culture Result 2 (EFLICITA) - Final, Complete 05/19/18 Antimicrobic Susceptibility - Final, Complete 05/19/18 Gram Stain - Final, Complete 05/19/18 Gram Stain Result 1 (FELICITA) - Final, Complete 05/19/18 Gram Stain Result 2 (FELICITA) - Final, Complete Medications Current Medications Sodium Chloride 1,000 ml @ 2,190 mls/hr Q28M IV Last administered on at 14:36; Start 05/18/18 at 12:52; Stop 05/18/18 at 13:52; Status DC Piperacillin Sod/ Tazobactam Sod 4.5 gm/Sodium Chloride 100 ml @ 200 mls/hr 1X ONCE IV Last administered on 05/18/18at 14:34; Start 05/18/18 at 13:00; Stop 05/18/18 at 13:29; Status DC Vancomycin HCl (Vanco Per Pharmacy) 1 each 1X ONCE MC Last administered on 01/24at 13:00; Start 05/18/18 at 13:00; Stop 05/18/18 at 13:11; Status DC Vancomycin HCl 2 gm/Sodium Chloride 500 ml @ 250 mls/hr 1X ONCE IV Last administered on 05/18/18at 15:28; Start 05/18/18 at 13:15; Stop 05/18/18 at 15:14 ; Status DC Ondansetron HCl (Zofran) 4 mg PRN Q8HRS PRN IV NAUSEA/VOMITING; Start 05/18/18 at 14:45; Stop 05/18/18 at 15:28; Status DC Fentanyl Citrate (Fentanyl 2ml Vial) 50 mcg PRN Q1HR PRN IV PAIN; Start at 14:45; Stop 05/19/18 at 11:50; Status DC Sodium Chloride 1,000 ml @ 80 mls/hr [id number] IV ; Start 05/18/18 at 14:43; Stop 05/18/18 at 18:42; Status DC Acetaminophen (Tylenol) 650 mg 1X ONCE PO Last administered on 05/18/18at 15:29 ; Start 05/18/18 at 15:30; Stop 05/18/18 at 15:31; Status DC Ondansetron HCl (Zofran) 4 mg PRN Q6HRS PRN IV NAUSEA/VOMITING Last administered on 05/24/18at 06:14; Start 05/18/18 at 15:30 Diltiazem HCl (Cardizem Iv Push) 10 mg 1X ONCE IVP ; Start 05/18/18 at 15:30; Stop 05/18/18 at 15:31; Status DC Acetaminophen (Tylenol) 500 mg PRN Q6HRS PRN PO MILD PAIN / TEMP; Start at 15:30; Stop 05/18/18 at 16:14; Status DC Acetaminophen/ Codeine Phosphate (Tylenol #3) 1 tab PRN Q6HRS PRN PO MODERATE PAIN Last administered on 05/22/18at 16:19; Start 05/18/18 at 15:30 Morphine Sulfate (Morphine Sulfate) 2 mg PRN Q2HR PRN IV PAIN Last administered on 05/24/18at 23:25; Start 05/18/18 at 15:30 Oxycodone/ Acetaminophen (Percocet 5/325) 1 tab PRN Q4HRS PRN PO SEVERE PAIN Last administered on 05/23/18 11:14; Start 05/18/18 at 15:30 Albuterol Sulfate (Ventolin Hfa) 2 puff PRN Q6HRS PRN IH SHORTNESS OF BREATH; Start 05/18/18 at 15:30; Status UNV Digoxin (Lanoxin) 125 mcg DAILY PO ; Start 05/19/18 at 09:00; Stop 05/19/18 at 09:00; Status DC Furosemide (Lasix) 40 mg DAILY PO Last administered on 05/24/18 08:41; Start 05/19/18 at 09:00 Gabapentin (Neurontin) 300 mg DAILY PO Last administered on 05/24/18 08:42; Start 05/19/18 at 09:00 Lisinopril (Prinivil) 20 mg DAILY PO Last administered on 05/19/18 10:14; Start 05/19/18 at 09:00; Stop 05/24/18 at 15:20; Status DC Metoprolol Tartrate (Lopressor) 50 mg BID PO Last administered on 05/24/18 21: 26; Start 05/18/18 at 21:00 Oxycodone/ Acetaminophen (Percocet 10/325) 1 tab PRN Q6HRS PRN PO SEVERE PAIN ( 2ND Choice) Last administered on 05/22/18 17:50; Start 05/18/18 at 15:30 Oxycodone/ Acetaminophen (Percocet 5/325) 1 tab PRN Q4HRS PRN PO PAIN; Start at 15:30; Status UNV Acetaminophen (Tylenol) 500 mg PRN Q6HRS PRN PO MILD PAIN / TEMP Last administered on 05/24/18 21:23; Start 05/18/18 at 16:15 Atorvastatin Calcium (Lipitor) 80 mg QHS PO Last administered on 05/24/18 21: 26; Start 05/18/18 at 21:00 Hydralazine HCl (Apresoline) 10 mg TID PO Last administered on 05/24/18 21:26 ; Start 05/18/18 at 16:00 Insulin Human Lispro (HumaLOG) 10 units DAILYWBKFT SQ Last administered on 05/23at 08:58; Start 05/18/18 at 17:00; Stop 05/23/18 at 14:25; Status DC Levetiracetam (Keppra) 1,250 mg BID PO Last administered on 05/24/18 21:27; Start 05/18/18 at 21:00 Metformin HCl (Glucophage) 1,000 mg BIDWMEALS PO Last administered on 17:14; Start 05/18/18 at 17:00 Multivitamins (Thera M Plus) 1 tab DAILY PO Last administered on 05/24/18 08: 42; Start 05/19/18 at 09:00 Potassium Chloride (Klor-Con) 20 meq DAILYWBKFT PO Last administered on 08:43; Start 05/19/18 at 08:00 Risperidone (RisperDAL) 1 mg QHS PO Last administered on 05/24/18 21:47; Start 05/18/18 at 21:00 Non-Formulary Medication (Rosuvastatin Calcium (Crestor)) 40 mg DAILY PO ; Start 05/19/18 at 09:00; Status UNV Zonisamide (Zonegran) 400 mg DAILY PO Last administered on 05/24/18 08:43; Start 05/19/18 at 09:00 Albuterol/ Ipratropium (Duoneb) 3 ml Q4HRS W/A NEB Last administered on 06:00; Start 05/18/18 at 18:00 Insulin Human Lispro (HumaLOG) 0-9 UNITS TIDWMEALS SQ Last administered on 05/22at 17:23; Start 05/18/18 at 17:00 Dextrose (Dextrose 50%-Water Syringe) 12.5 gm PRN Q15MIN PRN IV SEE COMMENTS Last administered on 05/25/18at 06:04; Start 05/18/18 at 15:30 Albuterol Sulfate (Ventolin Neb Soln) 2.5 mg PRN Q6HRS PRN NEB SHORTNESS OF BREATH; Start 05/18/18 at 15:45 Piperacillin Sod/ Tazobactam Sod 3.375 gm/Sodium Chloride 50 ml @ 100 mls/hr Q6HRS IV Last administered on 05/24/18at 05:33; Start 05/18/18 at 18:00; Stop at 08:09; Status DC Potassium Chloride (Klor-Con) 40 meq 1X ONCE PO Last administered on at 10:14; Start 05/19/18 at 08:30; Stop 05/19/18 at 08:31; Status DC Heparin Sodium (Porcine) (Heparin Sodium) 5,000 unit Q8HRS SQ ; Start 05/19/18 at 14:00; Stop 05/19/18 at 14:00; Status DC Furosemide (Lasix) 40 mg 1X ONCE IVP Last administered on 05/19/18at 10:12; Start 05/19/18 at 08:45; Stop 05/19/18 at 08:46; Status DC Phytonadione (Vitamin K Ampule) 10 mg 1X ONCE SQ Last administered on at 10:16; Start 05/19/18 at 10:00; Stop 05/19/18 at 10:01; Status DC Vancomycin HCl (Vanco Per Pharmacy) 1 each PRN DAILY PRN MC SEE COMMENTS Last administered on 05/19/18at 10:32; Start 05/19/18 at 10:00; Stop 05/20/18 at 10:42 ; Status DC Phytonadione (Vitamin K Ampule) 10 mg 1X ONCE SQ ; Start 05/19/18 at 10:15; Stop 05/19/18 at 10:16; Status UNV Vancomycin HCl 1.75 gm/Sodium Chloride 500 ml @ 250 mls/hr Q24H IV Last administered on 05/19/18at 16:59; Start 05/19/18 at 16:00; Stop 05/20/18 at 10:42 ; Status DC Vancomycin HCl (Vancomycin Trough Level) 1 each 1X ONCE MC ; Start 05/20/18 at 16:30; Stop 05/20/18 at 16:30; Status DC Acetaminophen (Tylenol Supp) 650 mg PRN Q6HRS PRN [place] MILD PAIN / TEMP Last administered on 05/23/18at 23:33; Start 05/20/18 at 01:15 Sodium Chloride 500 ml @ 333 mls/hr 1X ONCE IV Last administered on at 01:14; Start 05/20/18 at 01:15; Stop 05/20/18 at 02:45; Status DC Phytonadione 5 mg/ Dextrose 50.5 ml @ 101 mls/hr 1X ONCE IV Last administered on 05/20/18at 10:08; Start 05/20/18 at 10:30; Stop 05/20/18 at 10:59 ; Status DC Daptomycin 590 mg/ Sodium Chloride 50 ml @ 100 mls/hr Q24H IV Last administered on 05/24/18at 12:00; Start 05/20/18 at 12:00 Ondansetron HCl (Zofran) 4 mg PRN Q6HRS PRN IV NAUSEA/VOMITING; Start 05/21/18 at 09:45; Stop 05/22/18 at 09:44; Status DC Fentanyl Citrate (Fentanyl 2ml Vial) 25 mcg PRN Q5MIN PRN IV MILD PAIN; Start 05/21/18 at 09:45; Stop 05/22/18 at 09:44; Status DC Fentanyl Citrate (Fentanyl 2ml Vial) 50 mcg PRN Q5MIN PRN IV MODERATE TO SEVERE PAIN; Start 05/21/18 at 09:45; Stop 05/22/18 at 09:44; Status DC Morphine Sulfate (Morphine Sulfate) 1 mg PRN Q10MIN PRN IV SEVERE PAIN; Start 05/21/18 at 09:45; Stop 05/22/18 at 09:44; Status DC Ringer's Solution 1,000 ml @ 30 mls/hr Q24H IV ; Start 05/21/18 at 09:39; Stop 05/22/18 at 00:37; Status DC Lidocaine HCl (Xylocaine-Mpf 1% 2ml Vial) 2 ml 1X PRN PRN ID IV START; Start at 09:45; Stop 05/22/18 at 09:44; Status DC Hydromorphone HCl (Dilaudid) 0.5 mg PRN Q10MIN PRN IV SEV PAIN, Second choice; Start 05/21/18 at 09:45; Stop 05/22/18 at 09:44; Status DC Prochlorperazine Edisylate (Compazine) 5 mg PACU PRN PRN IV NAUSEA, MRX1; Start 05/21/18 at 09:45; Stop 05/22/18 at 09:44; Status DC Lidocaine HCl (Glydo (Lidocaine) Jelly) 1 vianney 1X ONCE MM ; Start 05/21/18 at 12 :30; Stop 05/21/18 at 12:31; Status DC Propofol 20 ml @ As Directed STK-MED ONCE IV ; Start 05/21/18 at 12:27; Stop at 12:28; Status DC Dexamethasone Sodium Phosphate (Decadron) 20 mg STK-MED ONCE .ROUTE ; Start at 12:27; Stop 05/21/18 at 12:28; Status DC Famotidine (Pepcid Vial) 20 mg STK-MED ONCE .ROUTE ; Start 05/21/18 at 12:27; Stop 05/21/18 at 12:28; Status DC Lidocaine HCl (Lidocaine Pf 2% Vial) 5 ml STK-MED ONCE .ROUTE ; Start 05/21/18 at 12:27; Stop 05/21/18 at 12:28; Status DC Ondansetron HCl (Zofran) 4 mg STK-MED ONCE .ROUTE ; Start 05/21/18 at 12:27; Stop 05/21/18 at 12:28; Status DC Fentanyl Citrate (Fentanyl 2ml Vial) 100 mcg STK-MED ONCE .ROUTE ; Start at 12:27; Stop 05/21/18 at 12:28; Status DC Bacitracin 54279 unit/Sodium Chloride 500 ml @ 500 mls/hr 1X ONCE IRR ; Start 05/21/18 at 12:40; Stop 05/21/18 at 13:39; Status DC Cefazolin Sodium 1 gm/Sodium Chloride 500 ml @ 500 mls/hr 1X ONCE IRR ; Start 05/21/18 at 12:40; Stop 05/21/18 at 13:39; Status DC Lidocaine HCl 20 ml STK-MED ONCE .ROUTE ; Start 05/21/18 at 11:42; Stop at 12:42; Status DC Esmolol HCl (Brevibloc) 100 mg STK-MED ONCE IVP ; Start 05/21/18 at 13:01; Stop 05/21/18 at 13:02; Status DC Esmolol HCl (Brevibloc) 100 mg STK-MED ONCE IVP ; Start 05/21/18 at 14:22; Stop 05/21/18 at 14:23; Status DC Neomycin/ Polymyxin/ Bacitracin (Triple Antibiotic Ointment) 1 pkt STK-MED ONCE TP Last administered on 05/21/18at 14:41; Start 05/21/18 at 13:38; Stop at 14:38; Status DC Sevoflurane (Ultane) 90 ml STK-MED ONCE IH ; Start 05/21/18 at 14:40; Stop 05/21 at 14:41; Status DC Naloxone HCl (Narcan) 0.4 mg PRN Q2MIN PRN IV SEE INSTRUCTIONS; Start 05/21/18 at 15:00 Sodium Chloride 1,000 ml @ 25 mls/hr Q24H IV ; Start 05/21/18 at 14:57; Stop at 07:00; Status DC Morphine Sulfate 30 ml @ 0 mls/hr CONT PRN PRN IV PER PROTOCOL; Start 05/21/18 at 15:00 Labetalol HCl (Normodyne Iv Push) 20 mg PRN Q2HR PRN IVP HYPERTENSION, SEE COMMENTS Last administered on 05/24/18at 00:15; Start 05/21/18 at 15:30 Labetalol HCl (Normodyne Iv Push) 5 mg 1X PACU PRN IVP tachycardia and HTN Last administered on 05/21/18at 15:30; Start 05/21/18 at 15:30; Stop 05/22/18 at 09:09; Status DC Insulin Glargine (Lantus) 3 units 1X ONCE SQ Last administered on 05/21/18at 22 :00; Start 05/21/18 at 22:00; Stop 05/22/18 at 01:31; Status DC Aspirin (Ecotrin) 81 mg [id number] PO Last administered on 05/24/18at 08:41; Start 05/23/18 at 08:00 Digoxin (Lanoxin) 250 mcg 1X ONCE IV Last administered on 05/22/18at 12:28; Start 05/22/18 at 12:30; Stop 05/22/18 at 12:31; Status DC Warfarin Sodium (Coumadin) 6 mg DAILY16 PO ; Start 05/22/18 at 16:00; Stop 05/22 at 16:00; Status DC Warfarin Sodium (Coumadin) 2.5 mg 3X/WEEK PO ; Start 05/23/18 at 09:00; Status UNV Warfarin Sodium (Coumadin Per Physician) 1 each PRN DAILY PRN MC SEE COMMENTS; Start 05/22/18 at 14:45; Stop 05/22/18 at 14:57; Status DC Warfarin Sodium (Coumadin Per Pharmacy) 1 each PRN DAILY PRN MC SEE COMMENTS Last administered on 05/24/18at 14:18; Start 05/22/18 at 15:00 Warfarin Sodium (Coumadin) 4 mg 1X WARF ONCE PO Last administered on at 16:19; Start 05/22/18 at 16:00; Stop 05/22/18 at 16:01; Status DC Warfarin Sodium (Coumadin) 4 mg 1X WARF ONCE PO ; Start 05/23/18 at 16:00; Stop 05/23/18 at 16:01; Status DC Ringer's Solution 1,000 ml @ 75 mls/hr [id number] IV ; Start 05/23/18 at 13:45; Status Cancel Ringer's Solution 1,000 ml @ 75 mls/hr [id number] IV Last administered on at 06:06; Start 05/23/18 at 14:00 Insulin Human Lispro (HumaLOG) 7 units [id number] SQ ; Start 05/24/18 at 08:00 Dextrose (Dextrose 50%-Water Syringe) 25 gm 1X ONCE IV Last administered on at 13:15; Start 05/23/18 at 17:45; Stop 05/23/18 at 17:46; Status DC Meropenem 500 mg/ Sodium Chloride 50 ml @ 100 mls/hr Q6HRS IV Last administered on 05/25/18at 06:06; Start 05/24/18 at 12:00 Warfarin Sodium (Coumadin) 6 mg 1X WARF ONCE PO Last administered on at 15:33; Start 05/24/18 at 16:00; Stop 05/24/18 at 16:01; Status DC Active Scripts Active Digoxin 125 Mcg Tablet 125 Mcg PO DAILY Furosemide 40 Mg Tablet 40 Mg PO DAILY Metoprolol Tartrate 50 Mg Tablet 50 Mg PO BID [Warfarin Sodium] 1 EACH Each 1 Each PRN DAILY PRN Lisinopril 20 Mg Tablet 20 Mg PO DAILY Duoneb 0.5-3(2.5) Mg/3 Ml (Albuterol/Ipratropium) 3 Ml Ampul.neb 3 Ml NEB Q4HRS W/A 30 Days Hydralazine Hcl 10 Mg Tablet 10 Mg PO TID Reported Zonisamide 100 Mg Capsule 400 Mg PO DAILY Percocet 5-325 Mg Tablet (Oxycodone/Acetaminophen) 1 Each Tablet 1 Tab PO PRN Q4HRS PRN Multivitamins (Multivitamin) 1 Each Tablet 1 Tab PO DAILY Levetiracetam 250 Mg Tablet 1,250 Mg PO BID Novolin N (Nph, Human Insulin Isophane) 100 Unit/1 Ml Vial Unknown Dose SQ Atorvastatin Calcium 80 Mg Tablet 1 Tab PO DAILY Acetaminophen 500 Mg Tablet 1 Tab PO PRN Q6HRS PRN Albuterol Sulfate Hfa Inhaler (Albuterol Sulfate) 8.5 Gm Hfa.aer.ad 2 Puff IH PRN Q6HRS PRN Aspirin Ec (Aspirin) 325 Mg Tablet.dr 81 Mg PO DAILY Crestor (Rosuvastatin Calcium) 40 Mg Tablet 40 Mg PO DAILY Warfarin Sodium 5 Mg Tablet 6 Mg PO DAILY Warfarin Sodium 2.5 Mg Tablet 2.5 Mg PO 3X/WEEK monday,monday, Gabapentin (Gabapentin) 300 Mg Capsule 300 Mg PO DAILY Risperidone 1 Mg Tablet 1 Mg PO HS Novolog (Insulin Aspart) 100 Unit/1 Ml Vial 10 Unit SQ DAILYAC Oxycodone-Acetaminophen 10-325 (Oxycodone Hcl/Acetaminophen) 1 Each Tablet 1 Each PO PRN Q6HRS Potassium 99 Mg Tablet 20 Meq PO DAILY Prednisone (Prednisone) 10 Mg Tablet 10 Mg PO DAILY Metformin Hcl 500 Mg Tablet 1,000 Mg PO BIDBFRMEAL Vitals/I & O Vital Sign - Last 24 Hours 05/24/18 05/24/18 05/24/18 05/24/18 08:41 08:45 08:46 08:49 Pulse 78 78 78 B/P (MAP) 108/62 108/62 108/62 Pulse Ox 98 O2 Delivery Room Air 05/24/18 05/24/18 05/24/18 05/24/18 10:52 11:21 13:31 15:28 Temp 99.5 99.6 99.5 99.6 Pulse 67 67 Resp 18 18 B/P (MAP) 130/58 (82) 152/65 (94) Pulse Ox 96 96 95 O2 Delivery Nasal Cannula Nasal Cannula Room Air Nasal Cannula O2 Flow Rate 1.0 1.0 1.0 05/24/18 05/24/18 05/24/18 05/24/18 15:34 16:11 19:00 19:29 Temp 101.7 101.7 Pulse 67 86 Resp 18 B/P (MAP) 152/65 119/58 (78) Pulse Ox 96 93 87 O2 Delivery Nasal Cannula Nasal Cannula Room Air O2 Flow Rate 1.0 1.0 05/24/18 05/24/18 05/24/18 05/24/18 19:50 21:26 21:26 22:36 Temp 100.7 100.7 Pulse 87 87 90 Resp 18 B/P (MAP) 102/51 102/51 95/70 (78) Pulse Ox 96 O2 Delivery Nasal Cannula Nasal Cannula O2 Flow Rate 1.0 1.0 05/24/18 05/24/18 05/25/18 05/25/18 23:25 23:55 02:44 07:00 Temp 98.9 98.5 98.9 98.5 Pulse 68 59 Resp 16 16 17 18 B/P (MAP) 108/54 (72) 133/63 (86) Pulse Ox 96 95 96 94 O2 Delivery Nasal Cannula Nasal Cannula Nasal Cannula Nasal Cannula O2 Flow Rate 1.0 1.0 1.0 1.0 05/25/18 07:16 Pulse Ox 91 O2 Delivery Nasal Cannula O2 Flow Rate 1.0 Intake and Output 05/24/18 05/24/18 05/25/18 15:00 23:00 07:00 Intake Total 625 ml 275 ml 360 ml Output Total 675 ml 850 ml 650 ml Balance -50 ml -575 ml -290 ml Nutrition Consultation Dietary Evaluation: Recommendations by RD: Increase Calorie Intake, Protein supplementation Comments: REC continue ADA/cardiac diet, can liberalize as needed to provide foods that pt likes REC Glucerna TID (chocolate) Continue MVI REC Vit C (500 mg BID) Expected Outcomes/Goals: PO intake to meet >75% est needs - not met, goal ongoing Malnutrition Findings: Food and Nutrition Intake (Mod: <75% est energy req 7days Weight Status: Appropriate NEHAL NELSON MD May 25, 2018 08:11
--- NOTE | 2018-05-25 08:26 | PDOC ---
Infectious Disease Note Subjective: Subjective pt remains febrile lethargic this am now on O2 by nc no n/v/d/abdo pain has postop pain but under control D/W RN ROS: ROS limited but Negative except for above. Vital Signs: Vital Signs Vital Signs Date Time Temp Pulse Resp B/P (MAP) Pulse Ox O2 Delivery O2 Flow Rate FiO2 05/25/18 07:16 91 Nasal Cannula 1.0 05/25/18 07:00 98.5 59 18 133/63 (86) 98.5 Physical Exam: PHYSICAL EXAM GENERAL: Resting quietly HEENT: Pupils equally round, reactive. Normal conjunctivae. Oral cavity, pharynx pink, dry NECK: Supple. LUNGS: Dec bs at bases HEART: S1 and S2, soft murmur. Irregular. ABDOMEN: Obese, soft and nontender with bowel sounds present. GENITOURINARY: Indwelling Crawley in place. EXTREMITIES: Trace edema in lower extremities bilaterally. Rt BKA dressing and drain in place ,intact lt foot dressing intact, dry SKIN: Warm without rash. No peripheral stigmata. Several tattoos. NEUROLOGIC: Arouses to voice, Peripheral IV Medications: Inpatient Meds: Current Medications Medications (Trade) Dose Ordered Sig/Ana Start Time Stop Time Status Last Admin Dose Admin Acetaminophen (Tylenol Supp) 650 mg PRN Q6HRS PRN 05/20/18 01:15 05/23/18 23:33 650 MG Acetaminophen (Tylenol) 500 mg PRN Q6HRS PRN 05/18/18 16:15 05/24/18 21:23 500 MG Acetaminophen/ Codeine Phosphate (Tylenol #3) 1 tab PRN Q6HRS PRN 05/18/18 15:30 05/22/18 16:19 1 TAB Albuterol Sulfate (Ventolin Hfa) 2 puff PRN Q6HRS PRN 05/18/18 15:30 UNV Albuterol Sulfate (Ventolin Neb Soln) 2.5 mg PRN Q6HRS PRN 05/18/18 15:45 Albuterol/ Ipratropium (Duoneb) 3 ml Q4HRS W/A 05/18/18 18:00 05/25/18 06:00 3 ML Aspirin (Ecotrin) 81 mg [id number] 05/23/18 08:00 05/24/18 08:41 81 MG Atorvastatin Calcium (Lipitor) 80 mg QHS 05/18/18 21:00 05/24/18 21:26 80 MG Bacitracin 77336 unit/Sodium Chloride 500 ml @ 500 mls/hr 1X ONCE 05/21/18 12:40 05/21/18 13:39 DC Cefazolin Sodium 1 gm/Sodium Chloride 500 ml @ 500 mls/hr 1X ONCE 05/21/18 12:40 05/21/18 13:39 DC Daptomycin 590 mg/ Sodium Chloride 50 ml @ 100 mls/hr Q24H 05/20/18 12:00 05/24/18 12:00 100 MLS/HR Dexamethasone Sodium Phosphate (Decadron) 20 mg STK-MED ONCE 05/21/18 12:27 05/21/18 12:28 DC Dextrose (Dextrose 50%-Water Syringe) 25 gm 1X ONCE 05/23/18 17:45 05/23/18 17:46 DC 05/23/18 13:15 25 GM Digoxin (Lanoxin) 250 mcg 1X ONCE 05/22/18 12:30 05/22/18 12:31 DC 05/22/18 12:28 250 MCG Diltiazem HCl (Cardizem Iv Push) 10 mg 1X ONCE 05/18/18 15:30 05/18/18 15:31 DC Esmolol HCl (Brevibloc) 100 mg STK-MED ONCE 05/21/18 14:22 05/21/18 14:23 DC Famotidine (Pepcid Vial) 20 mg STK-MED ONCE 05/21/18 12:27 05/21/18 12:28 DC Fentanyl Citrate (Fentanyl 2ml Vial) 100 mcg STK-MED ONCE 05/21/18 12:27 05/21/18 12:28 DC Furosemide (Lasix) 40 mg 1X ONCE 05/19/18 08:45 05/19/18 08:46 DC 05/19/18 10:12 40 MG Gabapentin (Neurontin) 300 mg DAILY 05/19/18 09:00 05/24/18 08:42 300 MG Heparin Sodium (Porcine) (Heparin Sodium) 5,000 unit Q8HRS 05/19/18 14:00 05/19/18 14:00 DC Hydralazine HCl (Apresoline) 10 mg TID 05/18/18 16:00 05/24/18 21:26 10 MG Hydromorphone HCl (Dilaudid) 0.5 mg PRN Q10MIN PRN 05/21/18 09:45 05/22/18 09:44 DC Insulin Glargine (Lantus) 3 units 1X ONCE 05/21/18 22:00 05/22/18 01:31 DC 05/21/18 22:00 3 UNITS Insulin Human Lispro (HumaLOG) 7 units DAILYWBKFT 05/24/18 08:00 Labetalol HCl (Normodyne Iv Push) 5 mg 1X PACU PRN 05/21/18 15:30 05/22/18 09:09 DC 05/21/18 15:30 5 MG Levetiracetam (Keppra) 1,250 mg BID 05/18/18 21:00 05/24/18 21:27 1,250 MG Lidocaine HCl 20 ml STK-MED ONCE 05/21/18 11:42 05/21/18 12:42 DC Lidocaine HCl (Glydo (Lidocaine) Jelly) 1 vianney 1X ONCE 05/21/18 12:30 05/21/18 12:31 DC Lidocaine HCl (Lidocaine Pf 2% Vial) 5 ml STK-MED ONCE 05/21/18 12:27 05/21/18 12:28 DC Lidocaine HCl (Xylocaine-Mpf 1% 2ml Vial) 2 ml 1X PRN PRN 05/21/18 09:45 05/22/18 09:44 DC Lisinopril (Prinivil) 20 mg DAILY 05/19/18 09:00 05/24/18 15:20 DC 05/19/18 10:14 20 MG Meropenem 500 mg/ Sodium Chloride 50 ml @ 100 mls/hr Q6HRS 05/24/18 12:00 05/25/18 06:06 100 MLS/HR Metformin HCl (Glucophage) 1,000 mg BIDWMEALS 05/18/18 17:00 05/24/18 17:14 1,000 MG Metoprolol Tartrate (Lopressor) 50 mg BID 05/18/18 21:00 05/24/18 21:26 50 MG Morphine Sulfate 30 ml @ 0 mls/hr CONT PRN PRN 05/21/18 15:00 Morphine Sulfate (Morphine Sulfate) 1 mg PRN Q10MIN PRN 05/21/18 09:45 05/22/18 09:44 DC Multivitamins (Thera M Plus) 1 tab DAILY 05/19/18 09:00 05/24/18 08:42 1 TAB Naloxone HCl (Narcan) 0.4 mg PRN Q2MIN PRN 05/21/18 15:00 Neomycin/ Polymyxin/ Bacitracin (Triple Antibiotic Ointment) 1 pkt STK-MED ONCE 05/21/18 13:38 05/21/18 14:38 DC 05/21/18 14:41 1 PKT Non-Formulary Medication (Rosuvastatin Calcium (Crestor)) 40 mg DAILY 05/19/18 09:00 UNV Ondansetron HCl (Zofran) 4 mg STK-MED ONCE 05/21/18 12:27 05/21/18 12:28 DC Oxycodone/ Acetaminophen (Percocet 10/325) 1 tab PRN Q6HRS PRN 05/18/18 15:30 05/22/18 17:50 1 TAB Oxycodone/ Acetaminophen (Percocet 5/325) 1 tab PRN Q4HRS PRN 05/18/18 15:30 UNV Phytonadione (Vitamin K Ampule) 10 mg 1X ONCE 05/19/18 10:15 05/19/18 10:16 UNV Phytonadione 5 mg/ Dextrose 50.5 ml @ 101 mls/hr 1X ONCE 05/20/18 10:30 05/20/18 10:59 DC 05/20/18 10:08 101 MLS/HR Piperacillin Sod/ Tazobactam Sod 3.375 gm/Sodium Chloride 50 ml @ 100 mls/hr Q6HRS 05/18/18 18:00 05/24/18 08:09 DC 05/24/18 05:33 100 MLS/HR Piperacillin Sod/ Tazobactam Sod 4.5 gm/Sodium Chloride 100 ml @ 200 mls/hr 1X ONCE 05/18/18 13:00 05/18/18 13:29 DC 05/18/18 14:34 200 MLS/HR Potassium Chloride (Klor-Con) 40 meq 1X ONCE 05/19/18 08:30 05/19/18 08:31 DC 05/19/18 10:14 40 MEQ Prochlorperazine Edisylate (Compazine) 5 mg PACU PRN PRN 05/21/18 09:45 05/22/18 09:44 DC Propofol 20 ml @ As Directed STK-MED ONCE 05/21/18 12:27 05/21/18 12:28 DC Ringer's Solution 1,000 ml @ 75 mls/hr [id number] 05/23/18 14:00 05/25/18 06:06 75 MLS/HR Risperidone (RisperDAL) 1 mg QHS 05/18/18 21:00 05/24/18 21:47 1 MG Sevoflurane (Ultane) 90 ml STK-MED ONCE 05/21/18 14:40 05/21/18 14:41 DC Sodium Chloride 1,000 ml @ 25 mls/hr Q24H 05/21/18 14:57 05/24/18 07:00 DC Vancomycin HCl (Vanco Per Pharmacy) 1 each PRN DAILY PRN 05/19/18 10:00 05/20/18 10:42 DC 05/19/18 10:32 1 EACH Vancomycin HCl (Vancomycin Trough Level) 1 each 1X ONCE 05/20/18 16:30 05/20/18 16:30 DC Vancomycin HCl 1.75 gm/Sodium Chloride 500 ml @ 250 mls/hr Q24H 05/19/18 16:00 05/20/18 10:42 DC 05/19/18 16:59 250 MLS/HR Vancomycin HCl 2 gm/Sodium Chloride 500 ml @ 250 mls/hr 1X ONCE 05/18/18 13:15 05/18/18 15:14 DC 05/18/18 15:28 250 MLS/HR Warfarin Sodium (Coumadin Per Pharmacy) 1 each PRN DAILY PRN 05/22/18 15:00 05/24/18 14:18 1 EACH Warfarin Sodium (Coumadin Per Physician) 1 each PRN DAILY PRN 05/22/18 14:45 05/22/18 14:57 DC Warfarin Sodium (Coumadin) 6 mg 1X WARF ONCE 05/24/18 16:00 05/24/18 16:01 DC 05/24/18 15:33 6 MG Zonisamide (Zonegran) 400 mg DAILY 05/19/18 09:00 05/24/18 08:43 400 MG Labs: Lab Laboratory Tests Test 05/24/18 09:45 05/24/18 11:42 05/24/18 16:28 05/24/18 20:12 Urine Collection Type Unknown Urine Color Yellow Urine Clarity Clear Urine pH 6.5 Urine Specific [place] 1.015 Urine Protein Negative mg/dL (NEG-TRACE) Urine Glucose (UA) Negative mg/dL (NEG) Urine Ketones (Stick) Negative mg/dL (NEG) Urine Blood Large (NEG) Urine Nitrite Negative (NEG) Urine Bilirubin Negative (NEG) Urine Urobilinogen Dipstick 0.2 mg/dL (0.2 mg/dL) Urine Leukocyte Esterase Negative (NEG) Urine RBC >40 /HPF (0-2) Urine WBC 1-4 /HPF (0-4) Urine Squamous Epithelial Cells Occ /LPF Urine Bacteria 0 /HPF (0-FEW) Glucose (Fingerstick) 123 mg/dL (70-99) 124 mg/dL (70-99) 133 mg/dL (70-99) Test 05/25/18 04:30 05/25/18 05:58 05/25/18 06:24 05/25/18 07:35 White Blood Count 10.6 x10^3/uL (4.0-11.0) Red Blood Count 3.06 x10^6/uL (4.30-5.70) Hemoglobin 8.3 g/dL (13.0-17.5) Hematocrit 26.2 % (39.0-53.0) Mean Corpuscular Volume 86 fL (79-100) Mean Corpuscular Hemoglobin 27 pg (25-35) Mean Corpuscular Hemoglobin Concent 32 g/dL (31-37) Red Cell Distribution Width 16.3 % (11.5-14.5) Platelet Count 194 x10^3/uL (140-400) Neutrophils (%) (Auto) 81 % (31-73) Lymphocytes (%) (Auto) 7 % (24-48) Monocytes (%) (Auto) 10 % (0-9) Eosinophils (%) (Auto) 2 % (0-3) Basophils (%) (Auto) 0 % (0-3) Neutrophils # (Auto) 8.6 x10^3uL (1.8-7.7) Lymphocytes # (Auto) 0.7 x10^3/uL (1.0-4.8) Monocytes # (Auto) 1.0 x10^3/uL (0.0-1.1) Eosinophils # (Auto) 0.2 x10^3/uL (0.0-0.7) Basophils # (Auto) 0.0 x10^3/uL (0.0-0.2) Prothrombin Time 17.8 SEC (11.7-14.0) Prothromb Time International Ratio 1.5 (0.8-1.1) Sodium Level 137 mmol/L (136-145) Potassium Level 3.7 mmol/L (3.5-5.1) Chloride Level 101 mmol/L (98-107) Carbon Dioxide Level 28 mmol/L (21-32) Anion Gap 8 (6-14) Blood Urea Nitrogen 25 mg/dL (8-26) Creatinine 1.5 mg/dL (0.7-1.3) Estimated GFR (Cockcroft-Gault) 45.5 Glucose Level 121 mg/dL (70-99) Calcium Level 8.1 mg/dL (8.5-10.1) Phosphorus Level 2.2 mg/dL (2.6-4.7) Albumin 1.6 g/dL (3.4-5.0) Glucose (Fingerstick) 34 mg/dL (70-99) 182 mg/dL (70-99) 172 mg/dL (70-99) Micro RUN DATE: 05/22/18 PAGE 1 RUN TIME: 1907 [facility] [address] [place] [address] Ge Barnett M.D., [employer] PATIENT: VICKI BRAUN ACCT: [id number] LOC: 1 [facility] U : [id number] AGE/SX: 78/M ROOM: 104 REG : 05/18/[address]: ARABELLA MARTINEZ MD : 1940 BED: 1 DIS : STATUS: ADM IN TLOC: SPEC #: [id number] ERI: 05/18/18 STATUS: COMP REQ #: [id number] RECD: 05/18/[address] [facility] [address]: BOB BERRIOS MD SOURCE: BLOOD ENTR: 05/19/18 [facility] [address]: MARITZA JONAS [facility]: ORDERED: BLD CULT - LC Procedure Result BLOOD CULTURE LC Final Final report BLD CULT RESULT 1 Final Comment Methicillin - resistant Staphylococcus aureus Based on resistance to oxacillin this isolate would be resistant to all currently available beta-lactam antimicrobial agents, with the exception of the newer cephalosporins with anti-MRSA activity, such as Ceftaroline ANTIMICROBIAL SUSCEPTIBILITY Final Comment S = Susceptible; I = Intermediate; R = Resistant P = Positive; N = Negative MICS are expressed in micrograms per mL Antibiotic RSLT#1 RSLT#2 RSLT#3 RSLT#4 Ciprofloxacin R>=8 Gentamicin S<=0.5 Levofloxacin I =4 Linezolid S =2 Nitrofurantoin S<=16 Oxacillin R>=4 Penicillin R>=0.5 Rifampin S<=0.5 Tetracycline S<=1 Trimethoprim/Sulfa S<=10 Vancomycin S =1 Performed at: - [facility] [address] [facility] [address], [place], [place] [id number] Customer Care Coordinator: LÁZARO Chong MD, Phone: [phone] PATIENT: VICKI BRAUN ACCT: [id number] LOC: 1 [facility] U : [id number] AGE/SX: 78/M ROOM: 104 REG : 05/18/[address]: ARABELLA MARTINEZ MD : 1940 BED: 1 DIS : STATUS: ADM IN TLOC: SPEC #: [id number] ERI: 05/19/18-1099 STATUS: RES REQ #: [id number] RECD: 05/19/18-[address]: GIO GASPAR APRN SOURCE: ANKLE ENTR: 05/19/18-[address]: DAYANA CATES MD [facility]: RODRIGUEZ RAO MD, VENKAT R MD TERMULO, CHERRIE Y MD ORDERED: ANAER/AEROB/GS COMMENTS: Specimen Comment: Test(s) Aerobic Culture called to ANNE 05/23/2018 at 14:01 Specimen Comment: EST Procedure Result ANAEROBIC-AEROBIC CULTURE Preliminary Preliminary report ANAEROBIC RES 1 Preliminary Comment No anaerobes recovered in 48 hours. AEROBIC CULT Final Final report AEROBIC RES 1 Final Comment Enterobacter cloacae complex 4+ AEROBIC RES 2 Final Comment Methicillin - resistant Staphylococcus aureus Scant growth Based on resistance to oxacillin this isolate would be resistant to all currently available beta-lactam antimicrobial agents, with the exception of the newer cephalosporins with anti-MRSA activity, such as Ceftaroline This isolate does not demonstrate inducible clindamycin resistance in vitro by D test. CONTINUED ON NEXT PAGE RUN DATE: 05/23/18 PAGE 2 RUN TIME: 5279 [facility] [address] [place] [address] Ge Barnett M.D., [employer] SPEC: [id number] PATIENT: VICKI BRAUN [id number] ( Continued) Procedure Result ANTIMICROBIAL SUSCEPTIBILITY Final Comment S = Susceptible; I = Intermediate; R = Resistant P = Positive; N = Negative MICS are expressed in micrograms per mL Antibiotic RSLT#1 RSLT#2 RSLT#3 RSLT#4 Amoxicillin/Clavulanic Acid R =R Cefepime S<=0.12 Cefuroxime R =R Ciprofloxacin S<=0.25 R =4 Clindamycin S<=0.25 Ertapenem S<=0.12 Erythromycin R>=8 Gentamicin S<=1 S<=0.5 Imipenem S<=0.25 Levofloxacin S<=0.12 I =4 Linezolid S =2 Meropenem S<=0.25 Oxacillin R>=4 Penicillin R>=0.5 Rifampin S<=0.5 Tetracycline S =2 S<=1 Tobramycin S<=1 Trimethoprim/Sulfa S<=20 S<=10 Vancomycin S<=0.5 GRAM STAIN Final Final report GRAM STAIN RES 1 Final Comment Rare white blood cells. GRAM STAIN RES 2 Final Comment Few gram negative rods. 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 There is no significant aortic valvular stenosis. There is no aortic valvular vegetation. 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 Bioprosthesis leaflets are thin and move normally. Renal insufficiency/JIMMY Encephalopathy Coagulopathy, on chronic warfarin A- fib RVR Severe PAD s/p BLE stents and previous toe amputations Diabetes Type II h/o PSA ( R quinolones & I imipenem) h/o group B strep bacteremia, 2017 Hematuria Plan: Plan of Care Continue Dapto on merrem 05/24, was on zosyn off IV Vanc due to JIMMY D/W MICRO to check for dapto suscep repeat BC,UA,Urine c/s Repeat BC 05/20 ,05/21 , 05/24 pending Monitor labs and renal function closely Local wound care and offloading CT Abdomen,Chest D/W NESHA WONG MD May 25, 2018 08:25
[2018-05-25] MEDS: MULTIVITAMIN with MINERAL TABLET. PO SCH (09:04)
[2018-05-25] MEDS: GABAPENTIN 300 MG CAPSULE. PO SCH (09:04)
[2018-05-25] MEDS: POTASSIUM CHLORIDE 20 MEQ TABLET.ER. PO SCH (09:04)
[2018-05-25] MEDS: metFORMIN 500 MG TABLET PO SCH ×2 (09:04→17:38)
[2018-05-25] MEDS: FUROSEMIDE 40 MG TABLET. PO SCH (09:04)
[2018-05-25] MEDS: ASPIRIN ENTERIC COATED 81 MG TABLET.DR. PO SCH (09:05)
[2018-05-25] MEDS: hydrALAZINE 10 MG TABLET PO SCH ×3 (09:05→21:00)
[2018-05-25] MEDS: METOPROLOL TART IMMED RELEASE 50 MG TABLET. PO SCH ×2 (09:07→21:00)
[2018-05-25] MEDS: levETIRAcetam 250 MG TABLET PO SCH ×2 (09:19→21:00)
--- NOTE | 2018-05-25 12:10 | NUR ---
Wound care Wound care consult for multiple wounds. Pt had R BKA eliminating multiple wounds. Pt has left lateral ankle DFU. Cleansed wound, applied Aquacel Ag, gauze and tape, change daily per [facility]. No other wounds noted on full skin inspection. Foam placed on coccyx for protection. WC will continue to follow for possible changes.
[2018-05-25] MEDS: oxyCODONE/APAP 5/325 1 TAB TABLET PO PRN (12:14)
[2018-05-25] MEDS: ZONISAMIDE 100 MG CAPSULE. PO SCH (12:15)
--- NOTE | 2018-05-25 12:43 | PDOC ---
PROGRESS NOTES Subjective Subjective "Where's my ? We've been nearly 54 year." Objective Objective Vascular Surgery - POD#4 Right BKA; left heel debridement General: Patient examined at bedside. Complains of pain to amputation incision during dressing removal and stump protector removal. RLE: Has rigid stump protector in place. Removed. Patient able to flex and extent at the knee joint nearly 90 degrees. Takes coaching to get him to complete the motion. Incision intact and healing very well. No hematoma or ecchymosis. No swelling. LLE: lateral foot wound debridement with healthy tissue. Assessment/Plan: 1. POD#4 of right BKA and left lateral foot debridement - Pain with manipulation of stump. Continue with pain management. - continue with rigid stump protector with periodic removal for ROM activities to right knee to avoid flexion contracture. - Continue with off-loading to left lateral heel wound, aquacel AG to wound, daily changes - PT to work w/patient with transfers, OOB activities. - Discussed with RN. - ok to discharge from a vascular perspective when deemed medically stable to do so. Vital Signs Date Time Temp Pulse Resp B/P (MAP) Pulse Ox O2 Delivery O2 Flow Rate FiO2 05/25/18 12:14 Nasal Cannula 2.0 05/25/18 11:00 98.7 71 18 152/69 (96) 94 98.7 Intake and Output 05/25/18 07:00 Intake Total 1260 ml Output Total 2175 ml Balance -915 ml Intake Oral 1260 ml Output Urine Total 2175 ml # Bowel Movements 1 Assessment Assessment Problems Medical Problems: (1) Fever Status: Acute (2) Gangrene of toe Status: Acute (3) Leukocytosis Status: Acute (4) Severe sepsis Status: Acute Comment Review of Relevant I have reviewed the following items navi (where applicable) has been applied. Labs Laboratory Tests Test 05/23/18 12:46 05/23/18 13:29 05/23/18 14:21 05/23/18 17:37 Glucose (Fingerstick) 47 mg/dL (70-99) 73 mg/dL (70-99) 127 mg/dL (70-99) 138 mg/dL (70-99) Test 05/23/18 20:25 05/24/18 03:00 05/24/18 09:45 05/24/18 11:42 Glucose (Fingerstick) 125 mg/dL (70-99) 123 mg/dL (70-99) White Blood Count 11.0 x10^3/uL (4.0-11.0) Red Blood Count 3.20 x10^6/uL (4.30-5.70) Hemoglobin 8.5 g/dL (13.0-17.5) Hematocrit 26.9 % (39.0-53.0) Mean Corpuscular Volume 84 fL (79-100) Mean Corpuscular Hemoglobin 27 pg (25-35) Mean Corpuscular Hemoglobin Concent 32 g/dL (31-37) Red Cell Distribution Width 16.3 % (11.5-14.5) Platelet Count 196 x10^3/uL (140-400) Neutrophils (%) (Auto) 86 % (31-73) Lymphocytes (%) (Auto) 6 % (24-48) Monocytes (%) (Auto) 7 % (0-9) Eosinophils (%) (Auto) 1 % (0-3) Basophils (%) (Auto) 0 % (0-3) Neutrophils # (Auto) 9.4 x10^3uL (1.8-7.7) Lymphocytes # (Auto) 0.7 x10^3/uL (1.0-4.8) Monocytes # (Auto) 0.7 x10^3/uL (0.0-1.1) Eosinophils # (Auto) 0.1 x10^3/uL (0.0-0.7) Basophils # (Auto) 0.0 x10^3/uL (0.0-0.2) Prothrombin Time 17.5 SEC (11.7-14.0) Prothromb Time International Ratio 1.5 (0.8-1.1) Sodium Level 138 mmol/L (136-145) Potassium Level 3.9 mmol/L (3.5-5.1) Chloride Level 101 mmol/L (98-107) Carbon Dioxide Level 27 mmol/L (21-32) Anion Gap 10 (6-14) Blood Urea Nitrogen 30 mg/dL (8-26) Creatinine 1.7 mg/dL (0.7-1.3) Estimated GFR (Cockcroft-Gault) 39.4 Glucose Level 135 mg/dL (70-99) Calcium Level 8.1 mg/dL (8.5-10.1) Phosphorus Level 1.8 mg/dL (2.6-4.7) Albumin 1.8 g/dL (3.4-5.0) Urine Collection Type Unknown Urine Color Yellow Urine Clarity Clear Urine pH 6.5 Urine Specific [place] 1.015 Urine Protein Negative mg/dL (NEG-TRACE) Urine Glucose (UA) Negative mg/dL (NEG) Urine Ketones (Stick) Negative mg/dL (NEG) Urine Blood Large (NEG) Urine Nitrite Negative (NEG) Urine Bilirubin Negative (NEG) Urine Urobilinogen Dipstick 0.2 mg/dL (0.2 mg/dL) Urine Leukocyte Esterase Negative (NEG) Urine RBC >40 /HPF (0-2) Urine WBC 1-4 /HPF (0-4) Urine Squamous Epithelial Cells Occ /LPF Urine Bacteria 0 /HPF (0-FEW) Test 05/24/18 16:28 05/24/18 20:12 05/25/18 04:30 05/25/18 05:58 Glucose (Fingerstick) 124 mg/dL (70-99) 133 mg/dL (70-99) 34 mg/dL (70-99) White Blood Count 10.6 x10^3/uL (4.0-11.0) Red Blood Count 3.06 x10^6/uL (4.30-5.70) Hemoglobin 8.3 g/dL (13.0-17.5) Hematocrit 26.2 % (39.0-53.0) Mean Corpuscular Volume 86 fL (79-100) Mean Corpuscular Hemoglobin 27 pg (25-35) Mean Corpuscular Hemoglobin Concent 32 g/dL (31-37) Red Cell Distribution Width 16.3 % (11.5-14.5) Platelet Count 194 x10^3/uL (140-400) Neutrophils (%) (Auto) 81 % (31-73) Lymphocytes (%) (Auto) 7 % (24-48) Monocytes (%) (Auto) 10 % (0-9) Eosinophils (%) (Auto) 2 % (0-3) Basophils (%) (Auto) 0 % (0-3) Neutrophils # (Auto) 8.6 x10^3uL (1.8-7.7) Lymphocytes # (Auto) 0.7 x10^3/uL (1.0-4.8) Monocytes # (Auto) 1.0 x10^3/uL (0.0-1.1) Eosinophils # (Auto) 0.2 x10^3/uL (0.0-0.7) Basophils # (Auto) 0.0 x10^3/uL (0.0-0.2) Prothrombin Time 17.8 SEC (11.7-14.0) Prothromb Time International Ratio 1.5 (0.8-1.1) Sodium Level 137 mmol/L (136-145) Potassium Level 3.7 mmol/L (3.5-5.1) Chloride Level 101 mmol/L (98-107) Carbon Dioxide Level 28 mmol/L (21-32) Anion Gap 8 (6-14) Blood Urea Nitrogen 25 mg/dL (8-26) Creatinine 1.5 mg/dL (0.7-1.3) Estimated GFR (Cockcroft-Gault) 45.5 Glucose Level 121 mg/dL (70-99) Calcium Level 8.1 mg/dL (8.5-10.1) Phosphorus Level 2.2 mg/dL (2.6-4.7) Albumin 1.6 g/dL (3.4-5.0) Test 05/25/18 06:24 05/25/18 07:35 05/25/18 12:12 Glucose (Fingerstick) 182 mg/dL (70-99) 172 mg/dL (70-99) 146 mg/dL (70-99) Laboratory Tests Test 05/24/18 16:28 05/24/18 20:12 05/25/18 04:30 05/25/18 05:58 Glucose (Fingerstick) 124 mg/dL (70-99) 133 mg/dL (70-99) 34 mg/dL (70-99) White Blood Count 10.6 x10^3/uL (4.0-11.0) Red Blood Count 3.06 x10^6/uL (4.30-5.70) Hemoglobin 8.3 g/dL (13.0-17.5) Hematocrit 26.2 % (39.0-53.0) Mean Corpuscular Volume 86 fL (79-100) Mean Corpuscular Hemoglobin 27 pg (25-35) Mean Corpuscular Hemoglobin Concent 32 g/dL (31-37) Red Cell Distribution Width 16.3 % (11.5-14.5) Platelet Count 194 x10^3/uL (140-400) Neutrophils (%) (Auto) 81 % (31-73) Lymphocytes (%) (Auto) 7 % (24-48) Monocytes (%) (Auto) 10 % (0-9) Eosinophils (%) (Auto) 2 % (0-3) Basophils (%) (Auto) 0 % (0-3) Neutrophils # (Auto) 8.6 x10^3uL (1.8-7.7) Lymphocytes # (Auto) 0.7 x10^3/uL (1.0-4.8) Monocytes # (Auto) 1.0 x10^3/uL (0.0-1.1) Eosinophils # (Auto) 0.2 x10^3/uL (0.0-0.7) Basophils # (Auto) 0.0 x10^3/uL (0.0-0.2) Prothrombin Time 17.8 SEC (11.7-14.0) Prothromb Time International Ratio 1.5 (0.8-1.1) Sodium Level 137 mmol/L (136-145) Potassium Level 3.7 mmol/L (3.5-5.1) Chloride Level 101 mmol/L (98-107) Carbon Dioxide Level 28 mmol/L (21-32) Anion Gap 8 (6-14) Blood Urea Nitrogen 25 mg/dL (8-26) Creatinine 1.5 mg/dL (0.7-1.3) Estimated GFR (Cockcroft-Gault) 45.5 Glucose Level 121 mg/dL (70-99) Calcium Level 8.1 mg/dL (8.5-10.1) Phosphorus Level 2.2 mg/dL (2.6-4.7) Albumin 1.6 g/dL (3.4-5.0) Test 05/25/18 06:24 05/25/18 07:35 05/25/18 12:12 Glucose (Fingerstick) 182 mg/dL (70-99) 172 mg/dL (70-99) 146 mg/dL (70-99) Microbiology 05/24/18 Blood Culture - Preliminary, Resulted NO GROWTH AFTER 1 DAY 05/19/18 Urine Culture - Final, Complete 05/19/18 Urine Culture Result 1 (FELICITA) - Final, Complete 05/19/18 Anaerobic/Aerobic Culture - Final, Complete 05/19/18 Anaerobic Culture Result 1 (FELICITA) - Final, Complete 05/19/18 Aerobic Culture - Final, Complete 05/19/18 Aerobic Culture Result 1 (FELICITA) - Final, Complete 05/19/18 Aerobic Culture Result 2 (FELICITA) - Final, Complete 05/19/18 Antimicrobic Susceptibility - Final, Complete 05/19/18 Gram Stain - Final, Complete 05/19/18 Gram Stain Result 1 (FELICITA) - Final, Complete 05/19/18 Gram Stain Result 2 (FELICITA) - Final, Complete Medications Current Medications Sodium Chloride 1,000 ml @ 2,190 mls/hr Q28M IV Last administered on at 14:36; Start 05/18/18 at 12:52; Stop 05/18/18 at 13:52; Status DC Piperacillin Sod/ Tazobactam Sod 4.5 gm/Sodium Chloride 100 ml @ 200 mls/hr 1X ONCE IV Last administered on 05/18/18at 14:34; Start 05/18/18 at 13:00; Stop 05/18/18 at 13:29; Status DC Vancomycin HCl (Vanco Per Pharmacy) 1 each 1X ONCE MC Last administered on 01/24at 13:00; Start 05/18/18 at 13:00; Stop 05/18/18 at 13:11; Status DC Vancomycin HCl 2 gm/Sodium Chloride 500 ml @ 250 mls/hr 1X ONCE IV Last administered on 05/18/18at 15:28; Start 05/18/18 at 13:15; Stop 05/18/18 at 15:14 ; Status DC Ondansetron HCl (Zofran) 4 mg PRN Q8HRS PRN IV NAUSEA/VOMITING; Start 05/18/18 at 14:45; Stop 05/18/18 at 15:28; Status DC Fentanyl Citrate (Fentanyl 2ml Vial) 50 mcg PRN Q1HR PRN IV PAIN; Start at 14:45; Stop 05/19/18 at 11:50; Status DC Sodium Chloride 1,000 ml @ 80 mls/hr [id number] IV ; Start 05/18/18 at 14:43; Stop 05/18/18 at 18:42; Status DC Acetaminophen (Tylenol) 650 mg 1X ONCE PO Last administered on 05/18/18at 15:29 ; Start 05/18/18 at 15:30; Stop 05/18/18 at 15:31; Status DC Ondansetron HCl (Zofran) 4 mg PRN Q6HRS PRN IV NAUSEA/VOMITING Last administered on 05/24/18at 06:14; Start 05/18/18 at 15:30 Diltiazem HCl (Cardizem Iv Push) 10 mg 1X ONCE IVP ; Start 05/18/18 at 15:30; Stop 05/18/18 at 15:31; Status DC Acetaminophen (Tylenol) 500 mg PRN Q6HRS PRN PO MILD PAIN / TEMP; Start at 15:30; Stop 05/18/18 at 16:14; Status DC Acetaminophen/ Codeine Phosphate (Tylenol #3) 1 tab PRN Q6HRS PRN PO MODERATE PAIN Last administered on 05/22/18at 16:19; Start 05/18/18 at 15:30 Morphine Sulfate (Morphine Sulfate) 2 mg PRN Q2HR PRN IV PAIN Last administered on 05/24/18at 23:25; Start 05/18/18 at 15:30 Oxycodone/ Acetaminophen (Percocet 5/325) 1 tab PRN Q4HRS PRN PO SEVERE PAIN Last administered on 05/25/18at 12:14; Start 05/18/18 at 15:30 Albuterol Sulfate (Ventolin Hfa) 2 puff PRN Q6HRS PRN IH SHORTNESS OF BREATH; Start 05/18/18 at 15:30; Status UNV Digoxin (Lanoxin) 125 mcg DAILY PO ; Start 05/19/18 at 09:00; Stop 05/19/18 at 09:00; Status DC Furosemide (Lasix) 40 mg DAILY PO Last administered on 05/25/18at 09:04; Start 05/19/18 at 09:00 Gabapentin (Neurontin) 300 mg DAILY PO Last administered on 05/25/18at 09:04; Start 05/19/18 at 09:00 Lisinopril (Prinivil) 20 mg DAILY PO Last administered on 05/19/18 10:14; Start 05/19/18 at 09:00; Stop 05/24/18 at 15:20; Status DC Metoprolol Tartrate (Lopressor) 50 mg BID PO Last administered on 05/25/18 09: 07; Start 05/18/18 at 21:00 Oxycodone/ Acetaminophen (Percocet 10/325) 1 tab PRN Q6HRS PRN PO SEVERE PAIN ( 2ND Choice) Last administered on 05/22/18at 17:50; Start 05/18/18 at 15:30 Oxycodone/ Acetaminophen (Percocet 5/325) 1 tab PRN Q4HRS PRN PO PAIN; Start at 15:30; Status UNV Acetaminophen (Tylenol) 500 mg PRN Q6HRS PRN PO MILD PAIN / TEMP Last administered on 05/24/18at 21:23; Start 05/18/18 at 16:15 Atorvastatin Calcium (Lipitor) 80 mg QHS PO Last administered on 05/24/18at 21: 26; Start 05/18/18 at 21:00 Hydralazine HCl (Apresoline) 10 mg TID PO Last administered on 05/25/18 09:05 ; Start 05/18/18 at 16:00 Insulin Human Lispro (HumaLOG) 10 units DAILYWBKFT SQ Last administered on 05/23at 08:58; Start 05/18/18 at 17:00; Stop 05/23/18 at 14:25; Status DC Levetiracetam (Keppra) 1,250 mg BID PO Last administered on 05/25/18 09:19; Start 05/18/18 at 21:00 Metformin HCl (Glucophage) 1,000 mg BIDWMEALS PO Last administered on 09:04; Start 05/18/18 at 17:00 Multivitamins (Thera M Plus) 1 tab DAILY PO Last administered on 05/25/18 09: 04; Start 05/19/18 at 09:00 Potassium Chloride (Klor-Con) 20 meq DAILYWBKFT PO Last administered on at 09:04; Start 05/19/18 at 08:00 Risperidone (RisperDAL) 1 mg QHS PO Last administered on 05/24/18at 21:47; Start 05/18/18 at 21:00 Non-Formulary Medication (Rosuvastatin Calcium (Crestor)) 40 mg DAILY PO ; Start 05/19/18 at 09:00; Status UNV Zonisamide (Zonegran) 400 mg DAILY PO Last administered on 05/25/18 12:15; Start 05/19/18 at 09:00 Albuterol/ Ipratropium (Duoneb) 3 ml Q4HRS W/A NEB Last administered on 11:24; Start 05/18/18 at 18:00 Insulin Human Lispro (HumaLOG) 0-9 UNITS TIDWMEALS SQ Last administered on 05/22 17:23; Start 05/18/18 at 17:00 Dextrose (Dextrose 50%-Water Syringe) 12.5 gm PRN Q15MIN PRN IV SEE COMMENTS Last administered on 05/25/18 06:04; Start 05/18/18 at 15:30 Albuterol Sulfate (Ventolin Neb Soln) 2.5 mg PRN Q6HRS PRN NEB SHORTNESS OF BREATH; Start 05/18/18 at 15:45 Piperacillin Sod/ Tazobactam Sod 3.375 gm/Sodium Chloride 50 ml @ 100 mls/hr Q6HRS IV Last administered on 05/24/18 05:33; Start 05/18/18 at 18:00; Stop at 08:09; Status DC Potassium Chloride (Klor-Con) 40 meq 1X ONCE PO Last administered on at 10:14; Start 05/19/18 at 08:30; Stop 05/19/18 at 08:31; Status DC Heparin Sodium (Porcine) (Heparin Sodium) 5,000 unit Q8HRS SQ ; Start 05/19/18 at 14:00; Stop 05/19/18 at 14:00; Status DC Furosemide (Lasix) 40 mg 1X ONCE IVP Last administered on 05/19/18 10:12; Start 05/19/18 at 08:45; Stop 05/19/18 at 08:46; Status DC Phytonadione (Vitamin K Ampule) 10 mg 1X ONCE SQ Last administered on at 10:16; Start 05/19/18 at 10:00; Stop 05/19/18 at 10:01; Status DC Vancomycin HCl (Vanco Per Pharmacy) 1 each PRN DAILY PRN MC SEE COMMENTS Last administered on 05/19/18at 10:32; Start 05/19/18 at 10:00; Stop 05/20/18 at 10:42 ; Status DC Phytonadione (Vitamin K Ampule) 10 mg 1X ONCE SQ ; Start 05/19/18 at 10:15; Stop 05/19/18 at 10:16; Status UNV Vancomycin HCl 1.75 gm/Sodium Chloride 500 ml @ 250 mls/hr Q24H IV Last administered on 05/19/18at 16:59; Start 05/19/18 at 16:00; Stop 05/20/18 at 10:42 ; Status DC Vancomycin HCl (Vancomycin Trough Level) 1 each 1X ONCE MC ; Start 05/20/18 at 16:30; Stop 05/20/18 at 16:30; Status DC Acetaminophen (Tylenol Supp) 650 mg PRN Q6HRS PRN SC MILD PAIN / TEMP Last administered on 05/23/18at 23:33; Start 05/20/18 at 01:15 Sodium Chloride 500 ml @ 333 mls/hr 1X ONCE IV Last administered on at 01:14; Start 05/20/18 at 01:15; Stop 05/20/18 at 02:45; Status DC Phytonadione 5 mg/ Dextrose 50.5 ml @ 101 mls/hr 1X ONCE IV Last administered on 05/20/18at 10:08; Start 05/20/18 at 10:30; Stop 05/20/18 at 10:59 ; Status DC Daptomycin 590 mg/ Sodium Chloride 50 ml @ 100 mls/hr Q24H IV Last administered on 05/24/18at 12:00; Start 05/20/18 at 12:00 Ondansetron HCl (Zofran) 4 mg PRN Q6HRS PRN IV NAUSEA/VOMITING; Start 05/21/18 at 09:45; Stop 05/22/18 at 09:44; Status DC Fentanyl Citrate (Fentanyl 2ml Vial) 25 mcg PRN Q5MIN PRN IV MILD PAIN; Start 05/21/18 at 09:45; Stop 05/22/18 at 09:44; Status DC Fentanyl Citrate (Fentanyl 2ml Vial) 50 mcg PRN Q5MIN PRN IV MODERATE TO SEVERE PAIN; Start 05/21/18 at 09:45; Stop 05/22/18 at 09:44; Status DC Morphine Sulfate (Morphine Sulfate) 1 mg PRN Q10MIN PRN IV SEVERE PAIN; Start 05/21/18 at 09:45; Stop 05/22/18 at 09:44; Status DC Ringer's Solution 1,000 ml @ 30 mls/hr Q24H IV ; Start 05/21/18 at 09:39; Stop 05/22/18 at 00:37; Status DC Lidocaine HCl (Xylocaine-Mpf 1% 2ml Vial) 2 ml 1X PRN PRN ID IV START; Start at 09:45; Stop 05/22/18 at 09:44; Status DC Hydromorphone HCl (Dilaudid) 0.5 mg PRN Q10MIN PRN IV SEV PAIN, Second choice; Start 05/21/18 at 09:45; Stop 05/22/18 at 09:44; Status DC Prochlorperazine Edisylate (Compazine) 5 mg PACU PRN PRN IV NAUSEA, MRX1; Start 05/21/18 at 09:45; Stop 05/22/18 at 09:44; Status DC Lidocaine HCl (Glydo (Lidocaine) Jelly) 1 vianney 1X ONCE MM ; Start 05/21/18 at 12 :30; Stop 05/21/18 at 12:31; Status DC Propofol 20 ml @ As Directed STK-MED ONCE IV ; Start 05/21/18 at 12:27; Stop at 12:28; Status DC Dexamethasone Sodium Phosphate (Decadron) 20 mg STK-MED ONCE .ROUTE ; Start at 12:27; Stop 05/21/18 at 12:28; Status DC Famotidine (Pepcid Vial) 20 mg STK-MED ONCE .ROUTE ; Start 05/21/18 at 12:27; Stop 05/21/18 at 12:28; Status DC Lidocaine HCl (Lidocaine Pf 2% Vial) 5 ml STK-MED ONCE .ROUTE ; Start 05/21/18 at 12:27; Stop 05/21/18 at 12:28; Status DC Ondansetron HCl (Zofran) 4 mg STK-MED ONCE .ROUTE ; Start 05/21/18 at 12:27; Stop 05/21/18 at 12:28; Status DC Fentanyl Citrate (Fentanyl 2ml Vial) 100 mcg STK-MED ONCE .ROUTE ; Start at 12:27; Stop 05/21/18 at 12:28; Status DC Bacitracin 84410 unit/Sodium Chloride 500 ml @ 500 mls/hr 1X ONCE IRR ; Start 05/21/18 at 12:40; Stop 05/21/18 at 13:39; Status DC Cefazolin Sodium 1 gm/Sodium Chloride 500 ml @ 500 mls/hr 1X ONCE IRR ; Start 05/21/18 at 12:40; Stop 05/21/18 at 13:39; Status DC Lidocaine HCl 20 ml STK-MED ONCE .ROUTE ; Start 05/21/18 at 11:42; Stop at 12:42; Status DC Esmolol HCl (Brevibloc) 100 mg STK-MED ONCE IVP ; Start 05/21/18 at 13:01; Stop 05/21/18 at 13:02; Status DC Esmolol HCl (Brevibloc) 100 mg STK-MED ONCE IVP ; Start 05/21/18 at 14:22; Stop 05/21/18 at 14:23; Status DC Neomycin/ Polymyxin/ Bacitracin (Triple Antibiotic Ointment) 1 pkt STK-MED ONCE TP Last administered on 05/21/18at 14:41; Start 05/21/18 at 13:38; Stop at 14:38; Status DC Sevoflurane (Ultane) 90 ml STK-MED ONCE IH ; Start 05/21/18 at 14:40; Stop 05/21 at 14:41; Status DC Naloxone HCl (Narcan) 0.4 mg PRN Q2MIN PRN IV SEE INSTRUCTIONS; Start 05/21/18 at 15:00 Sodium Chloride 1,000 ml @ 25 mls/hr Q24H IV ; Start 05/21/18 at 14:57; Stop at 07:00; Status DC Morphine Sulfate 30 ml @ 0 mls/hr CONT PRN PRN IV PER PROTOCOL; Start 05/21/18 at 15:00 Labetalol HCl (Normodyne Iv Push) 20 mg PRN Q2HR PRN IVP HYPERTENSION, SEE COMMENTS Last administered on 05/24/18at 00:15; Start 05/21/18 at 15:30 Labetalol HCl (Normodyne Iv Push) 5 mg 1X PACU PRN IVP tachycardia and HTN Last administered on 05/21/18at 15:30; Start 05/21/18 at 15:30; Stop 05/22/18 at 09:09; Status DC Insulin Glargine (Lantus) 3 units 1X ONCE SQ Last administered on 05/21/18at 22 :00; Start 05/21/18 at 22:00; Stop 05/22/18 at 01:31; Status DC Aspirin (Ecotrin) 81 mg DAILYWBKFT PO Last administered on 05/25/18at 09:05; Start 05/23/18 at 08:00 Digoxin (Lanoxin) 250 mcg 1X ONCE IV Last administered on 05/22/18at 12:28; Start 05/22/18 at 12:30; Stop 05/22/18 at 12:31; Status DC Warfarin Sodium (Coumadin) 6 mg DAILY16 PO ; Start 05/22/18 at 16:00; Stop 05/22 at 16:00; Status DC Warfarin Sodium (Coumadin) 2.5 mg 3X/WEEK PO ; Start 05/23/18 at 09:00; Status UNV Warfarin Sodium (Coumadin Per Physician) 1 each PRN DAILY PRN MC SEE COMMENTS; Start 05/22/18 at 14:45; Stop 05/22/18 at 14:57; Status DC Warfarin Sodium (Coumadin Per Pharmacy) 1 each PRN DAILY PRN MC SEE COMMENTS Last administered on 05/24/18at 14:18; Start 05/22/18 at 15:00 Warfarin Sodium (Coumadin) 4 mg 1X WARF ONCE PO Last administered on at 16:19; Start 05/22/18 at 16:00; Stop 05/22/18 at 16:01; Status DC Warfarin Sodium (Coumadin) 4 mg 1X WARF ONCE PO ; Start 05/23/18 at 16:00; Stop 05/23/18 at 16:01; Status DC Ringer's Solution 1,000 ml @ 75 mls/hr [id number] IV ; Start 05/23/18 at 13:45; Status Cancel Ringer's Solution 1,000 ml @ 75 mls/hr [id number] IV Last administered on at 06:06; Start 05/23/18 at 14:00 Insulin Human Lispro (HumaLOG) 7 units DAILYWBKFT SQ ; Start 05/24/18 at 08:00 Dextrose (Dextrose 50%-Water Syringe) 25 gm 1X ONCE IV Last administered on at 13:15; Start 05/23/18 at 17:45; Stop 05/23/18 at 17:46; Status DC Meropenem 500 mg/ Sodium Chloride 50 ml @ 100 mls/hr Q6HRS IV Last administered on 05/25/18at 12:15; Start 05/24/18 at 12:00 Warfarin Sodium (Coumadin) 6 mg 1X WARF ONCE PO Last administered on at 15:33; Start 05/24/18 at 16:00; Stop 05/24/18 at 16:01; Status DC Active Scripts Active Digoxin 125 Mcg Tablet 125 Mcg PO DAILY Furosemide 40 Mg Tablet 40 Mg PO DAILY Metoprolol Tartrate 50 Mg Tablet 50 Mg PO BID [Warfarin Sodium] 1 EACH Each 1 Each MC PRN DAILY PRN Lisinopril 20 Mg Tablet 20 Mg PO DAILY Duoneb 0.5-3(2.5) Mg/3 Ml (Albuterol/Ipratropium) 3 Ml Ampul.neb 3 Ml NEB Q4HRS W/A 30 Days Hydralazine Hcl 10 Mg Tablet 10 Mg PO TID Reported Zonisamide 100 Mg Capsule 400 Mg PO DAILY Percocet 5-325 Mg Tablet (Oxycodone/Acetaminophen) 1 Each Tablet 1 Tab PO PRN Q4HRS PRN Multivitamins (Multivitamin) 1 Each Tablet 1 Tab PO DAILY Levetiracetam 250 Mg Tablet 1,250 Mg PO BID Novolin N (Nph, Human Insulin Isophane) 100 Unit/1 Ml Vial Unknown Dose SQ Atorvastatin Calcium 80 Mg Tablet 1 Tab PO DAILY Acetaminophen 500 Mg Tablet 1 Tab PO PRN Q6HRS PRN Albuterol Sulfate Hfa Inhaler (Albuterol Sulfate) 8.5 Gm Hfa.aer.ad 2 Puff IH PRN Q6HRS PRN Aspirin Ec (Aspirin) 325 Mg Tablet.dr 81 Mg PO DAILY Crestor (Rosuvastatin Calcium) 40 Mg Tablet 40 Mg PO DAILY Warfarin Sodium 5 Mg Tablet 6 Mg PO DAILY Warfarin Sodium 2.5 Mg Tablet 2.5 Mg PO 3X/WEEK monday,monday, Gabapentin (Gabapentin) 300 Mg Capsule 300 Mg PO DAILY Risperidone 1 Mg Tablet 1 Mg PO HS Novolog (Insulin Aspart) 100 Unit/1 Ml Vial 10 Unit SQ DAILYAC Oxycodone-Acetaminophen 10-325 (Oxycodone Hcl/Acetaminophen) 1 Each Tablet 1 Each PO PRN Q6HRS Potassium 99 Mg Tablet 20 Meq PO DAILY Prednisone (Prednisone) 10 Mg Tablet 10 Mg PO DAILY Metformin Hcl 500 Mg Tablet 1,000 Mg PO BIDBFRMEAL Vitals/I & O Vital Sign - Last 24 Hours 05/24/18 05/24/18 05/24/18 05/24/18 13:31 15:28 15:34 16:11 Temp 99.6 99.6 Pulse 67 67 Resp 18 B/P (MAP) 152/65 (94) 152/65 Pulse Ox 96 95 96 O2 Delivery Room Air Nasal Cannula Nasal Cannula O2 Flow Rate 1.0 1.0 05/24/18 05/24/18 05/24/18 05/24/18 19:00 19:29 19:50 21:26 Temp 101.7 101.7 Pulse 86 87 Resp 18 B/P (MAP) 119/58 (78) 102/51 Pulse Ox 93 87 O2 Delivery Nasal Cannula Room Air Nasal Cannula O2 Flow Rate 1.0 1.0 05/24/18 05/24/18 05/24/18 05/24/18 21:26 22:36 23:25 23:55 Temp 100.7 100.7 Pulse 87 90 Resp 18 16 16 B/P (MAP) 102/51 95/70 (78) Pulse Ox 96 96 95 O2 Delivery Nasal Cannula Nasal Cannula Nasal Cannula O2 Flow Rate 1.0 1.0 1.0 05/25/18 05/25/18 05/25/18 05/25/18 02:44 07:00 07:16 08:00 Temp 98.9 98.5 98.9 98.5 Pulse 68 59 Resp 17 18 B/P (MAP) 108/54 (72) 133/63 (86) Pulse Ox 96 94 91 O2 Delivery Nasal Cannula Nasal Cannula Nasal Cannula Nasal Cannula O2 Flow Rate 1.0 1.0 1.0 1.0 05/25/18 05/25/18 05/25/18 05/25/18 09:05 09:07 11:00 11:25 Temp 98.7 98.7 Pulse 77 77 71 Resp 18 B/P (MAP) 133/63 133/63 152/69 (96) Pulse Ox 94 O2 Delivery Nasal Cannula Nasal Cannula O2 Flow Rate 1.0 2.0 05/25/18 12:14 O2 Delivery Nasal Cannula O2 Flow Rate 2.0 Intake and Output 05/24/18 05/24/18 05/25/18 15:00 23:00 07:00 Intake Total 625 ml 275 ml 360 ml Output Total 675 ml 850 ml 650 ml Balance -50 ml -575 ml -290 ml Nutrition Consultation Dietary Evaluation: Recommendations by RD: Increase Calorie Intake, Protein supplementation Comments: REC continue ADA/cardiac diet, can liberalize as needed to provide foods that pt likes REC Glucerna TID (chocolate) Continue MVI REC Vit C (500 mg BID) Expected Outcomes/Goals: PO intake to meet >75% est needs - not met, goal ongoing Malnutrition Findings: Food and Nutrition Intake (Mod: <75% est energy req 7days Weight Status: Appropriate ROSCOE MCNAMARA APRN May 25, 2018 12:42
--- NOTE | 2018-05-25 12:52 | RAD ---
CT of the chest, abdomen and pelvis without contrast, 05/25/2018: HISTORY: Fever, shortness of breath Noncontrast scans were obtained as requested. There is moderate calcific plaquing of the thoracic aorta and its branches without evidence of aneurysm. An aortic valvular prosthesis is in place. Extensive coronary artery calcifications are present. The heart is generally enlarged. There are right hilar calcifications compatible with old granulomatous disease. No mediastinal adenopathy is evident. Poststernotomy changes are present. A calcified granuloma is present in the right upper lobe. There are small bilateral pleural effusions with mild associated atelectasis posteriorly in both lung bases. There is mild streaky infiltrate or scarring posterior laterally in the right upper lobe abutting the superior aspect of the oblique fissure. A small streaky subpleural opacity is present laterally in the right upper lobe which may represent scarring or atelectasis. Additional peripheral linear opacities in both lungs are probably scars. There is mild soft tissue pleural thickening on the left which is most prominent laterally in the lower chest as seen on axial image 36 of series #2. The unopacified liver is unremarkable. The gallbladder is distended. It contains medium density material. There is no evidence of pericholecystic edema. There is fatty infiltration of the pancreas. No pancreatic mass is evident. The spleen is of normal size. There is moderate bilateral renal cortical scarring with mild streaky perinephric edema. Several renal cysts are noted with the largest of these on the right measuring 4.5 cm. The kidneys show no evidence of obstruction. No adrenal abnormality is detected. There is moderate aortoiliac calcific plaquing without evidence of aneurysm. No abdominal or pelvic adenopathy is seen. Artifacts arising from a left hip prosthesis degrade image quality in the lower pelvis. A Crawley catheter extends into the collapsed urinary bladder. There are mild scattered colonic diverticula. No paracolonic inflammatory process is seen. The bowel loops are not dilated. No free fluid or free air is evident in the abdomen or pelvis. There is a moderate thoracolumbar scoliosis with moderate multilevel degenerative change. 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 IMPRESSION: 1. Extensive coronary artery disease. 2. Scattered bilateral pleural-parenchymal opacities as described above may represent scarring. A neoplastic etiology cannot be excluded and CT follow-up may be prudent. 3. Small bilateral pleural effusions with mild bibasilar atelectasis. 4. Distended gallbladder containing material of medium density. This may represent sludge or vicarious excretion of IV iodinated contrast if the patient has undergone a recent contrast study. 5. Additional miscellaneous chronic findings as described above. RS Compliance Statement: One or more of the following individualized dose reduction techniques were utilized for this examination: 1. Automated exposure control 2. Adjustment of the mA and/or kV according to patient size 3. Use of iterative reconstruction technique Electronically signed by: Sammy Rahman MD (05/25/2018 12:49 PM) [facility]
[2018-05-25] MEDS: DAPTOmycin (GENERIC) IVPB 590 MG in IV NORMAL SALINE 50ML 50 ML IV SCH (13:21)
[2018-05-25] MEDS: MORPHINE SULFATE 2 MG/ML VIAL. IV PRN (13:33)
--- NOTE | 2018-05-25 14:03 | NUR ---
Pharmacy Warfarin Dosing Note S: Pharmacy consulted to assist with anticoagulation therapy O: VICKI BRAUN is a 78 year old M with Atrial Fibrillation LABS: Last INR: 1.5 Last HGB: 8.3 Last HCT: 26.2 Last PLT: 194 Last dose of 6 mg given on 05/24/18 at 1533 Vitamin K given: Y 05/19: 10 MG SUB-Q, 05/20: 5 MG IV Ongoing Drug Interactions: Zosyn A:INR of 1.5 is below desired range. Target range for this patient is: 2 -3 P: Warfarin dose: 6 mg Today at 1600 Bridge Therapy: None Next INR due tomorrow Pharmacy anticoagulation service will continue to follow. Serena Perez [facility], 05/25/18 [id number]
[2018-05-25] MEDS ORDERED: WARFARIN 3 MG TABLET. PO ONE (16:00)
[2018-05-25] MEDS: oxyCODONE/APAP 10/325 1 TAB TABLET PO PRN (16:03)
--- NOTE | 2018-05-25 16:29 | NUR ---
Report given to DANNY Perea on phone and reviewed at bedside. Patient family present on transfer.
--- NOTE | 2018-05-25 16:43 | NUR ---
Received report from Jared at 1558. Patient transferred to the unit at 1620 accompanied by patient's . He's awake, reports pain on his right leg at 8/10. VS upon arrival BP 118/51 HR 76 RR 19; rbs 158. He was oriented to his room, electronic controls, and call light policy. We'll continue to monitor the patient.
[2018-05-25] MEDS: ATORVASTATIN CALCIUM 40 MG TABLET. PO SCH (21:00)
[2018-05-25] MEDS: risperiDONE 1 MG TABLET. PO SCH (21:00)
--- NOTE | 2018-05-25 21:00 | NUR ---
Patient only moans when name called. Not fully awake to take oral meds tonight. Meds held tonight. Will continue to monitor.
[2018-05-26] VITALS (7 sets, daily range): BP systolic 99–149; BP diastolic 33–69
[2018-05-26] MEDS: MORPHINE SULFATE 2 MG/ML VIAL. IV PRN ×3 (01:25→18:10)
[2018-05-26] MEDS: oxyCODONE/APAP 10/325 1 TAB TABLET PO PRN ×2 (03:43→12:46)
[2018-05-26 05:47] LABS: BASO # 0.1 x10^3/uL (0.0-0.2); BASO % 0 % (0-3); EOS # 0.2 x10^3/uL (0.0-0.7); EOS % 2 % (0-3); HEMOGLOBIN 8.2 g/dL (13.0-17.5); LYMPH # 0.8 x10^3/uL (1.0-4.8); LYMPH % 6 % (24-48); MEAN CORPUSCULAR HEMOGLOBIN 27 pg (25-35); MEAN CORPUSCULAR HGB CONC 32 g/dL (31-37); MEAN CORPUSCULAR VOLUME 85 fL (79-100); MONO # 1.3 x10^3/uL (0.0-1.1); MONO % 10 % (0-9); NEUT # 10.5 x10^3uL (1.8-7.7); NEUT % 82 % (31-73); PLATELET COUNT 235 x10^3/uL (140-400); RED BLOOD COUNT 3.07 x10^6/uL (4.30-5.70); RED CELL DISTRIBUTION WIDTH 16.4 % (11.5-14.5); WHITE BLOOD COUNT 12.8 x10^3/uL (4.0-11.0)
[2018-05-26 05:52] LABS: ALBUMIN 1.6 g/dL (3.4-5.0); CALCIUM 8.3 mg/dL (8.5-10.1); CREATININE 1.5 mg/dL (0.7-1.3); GFR 45.5; PHOSPHORUS 2.2 mg/dL (2.6-4.7); POTASSIUM 4.2 mmol/L (3.5-5.1)
[2018-05-26] MEDS: IPRATRPIUM/ALBUTEROL 0.5/2.5MG 3 ML NEBU. NEB SCH ×5 (06:00→20:18)
[2018-05-26] MEDS: MEROPENEM 500 MG in IV NORMAL SALINE 50ML 50 ML IV SCH ×3 (06:16→18:00)
[2018-05-26 06:27] LABS: PROTHROMBIN TIME PATIENT 17.6 SEC (11.7-14.0)
[2018-05-26] MEDS: INSULIN LISPRO 300 UNITS/3 ML INSULN.PEN. SQ SCH ×4 (08:00→18:04)
[2018-05-26] MEDS: ALBUTEROL SULFATE 2.5 MG/3 ML NEBU. NEB PRN (08:35)
[2018-05-26] MEDS: METOPROLOL TART IMMED RELEASE 50 MG TABLET. PO SCH ×2 (09:00→20:39)
[2018-05-26] MEDS: FUROSEMIDE 40 MG TABLET. PO SCH (09:00)
[2018-05-26] MEDS: hydrALAZINE 10 MG TABLET PO SCH ×3 (09:00→20:39)
[2018-05-26] MEDS: MULTIVITAMIN with MINERAL TABLET. PO SCH (09:14)
[2018-05-26] MEDS: levETIRAcetam 250 MG TABLET PO SCH ×2 (09:14→20:39)
[2018-05-26] MEDS: ASPIRIN ENTERIC COATED 81 MG TABLET.DR. PO SCH (09:14)
[2018-05-26] MEDS: ZONISAMIDE 100 MG CAPSULE. PO SCH (09:14)
[2018-05-26] MEDS: metFORMIN 500 MG TABLET PO SCH ×2 (09:15→17:49)
[2018-05-26] MEDS: GABAPENTIN 300 MG CAPSULE. PO SCH (09:15)
[2018-05-26] MEDS: IV RINGERS,LACTATED 1000ML 1,000 ML IV SCH ×2 (09:15→22:00)
[2018-05-26] MEDS: POTASSIUM CHLORIDE 20 MEQ TABLET.ER. PO SCH (09:15)
[2018-05-26] MEDS: oxyCODONE/APAP 5/325 1 TAB TABLET PO PRN ×2 (09:24→14:54)
--- NOTE | 2018-05-26 11:04 | PDOC ---
Infectious Disease Note Subjective Subjective More alert this morning Feels pretty good Low-grade fevers Denies pain/chills/SOA/upset stomach ROS ROS per HPI Vital Sign Vital Signs Vital Signs Date Time Temp Pulse Resp B/P (MAP) Pulse Ox O2 Delivery O2 Flow Rate FiO2 05/26/18 09:00 63 104/41 05/26/18 08:37 Nasal Cannula 2.0 05/26/18 07:00 99.8 12 92 99.8 Physical Exam PHYSICAL EXAM Propped up in bed, alert, eating HEENT: Pupils equally round, reactive. Normal conjunctivae. Oral cavity, pharynx pink, dry NECK: Supple. LUNGS: Clear anteriorly HEART: S1 and S2, soft murmur. Irregular. ABDOMEN: Obese, soft and nontender with bowel sounds present. GENITOURINARY: Indwelling Crawley in place. 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 Left foot bandaged. SKIN: Warm without rash. No peripheral stigmata. Several tattoos. NEUROLOGIC: Alert, coop Labs Lab Laboratory Tests Test 05/25/18 12:12 05/25/18 16:26 05/25/18 19:35 05/26/18 05:00 Glucose (Fingerstick) 146 mg/dL (70-99) 158 mg/dL (70-99) 135 mg/dL (70-99) White Blood Count 12.8 x10^3/uL (4.0-11.0) Red Blood Count 3.07 x10^6/uL (4.30-5.70) Hemoglobin 8.2 g/dL (13.0-17.5) Hematocrit 26.0 % (39.0-53.0) Mean Corpuscular Volume 85 fL (79-100) Mean Corpuscular Hemoglobin 27 pg (25-35) Mean Corpuscular Hemoglobin Concent 32 g/dL (31-37) Red Cell Distribution Width 16.4 % (11.5-14.5) Platelet Count 235 x10^3/uL (140-400) Neutrophils (%) (Auto) 82 % (31-73) Lymphocytes (%) (Auto) 6 % (24-48) Monocytes (%) (Auto) 10 % (0-9) Eosinophils (%) (Auto) 2 % (0-3) Basophils (%) (Auto) 0 % (0-3) Neutrophils # (Auto) 10.5 x10^3uL (1.8-7.7) Lymphocytes # (Auto) 0.8 x10^3/uL (1.0-4.8) Monocytes # (Auto) 1.3 x10^3/uL (0.0-1.1) Eosinophils # (Auto) 0.2 x10^3/uL (0.0-0.7) Basophils # (Auto) 0.1 x10^3/uL (0.0-0.2) Prothrombin Time 17.6 SEC (11.7-14.0) Prothromb Time International Ratio 1.5 (0.8-1.1) Sodium Level 137 mmol/L (136-145) Potassium Level 4.2 mmol/L (3.5-5.1) Chloride Level 102 mmol/L (98-107) Carbon Dioxide Level 27 mmol/L (21-32) Anion Gap 8 (6-14) Blood Urea Nitrogen 23 mg/dL (8-26) Creatinine 1.5 mg/dL (0.7-1.3) Estimated GFR (Cockcroft-Gault) 45.5 Glucose Level 169 mg/dL (70-99) Calcium Level 8.3 mg/dL (8.5-10.1) Phosphorus Level 2.2 mg/dL (2.6-4.7) Albumin 1.6 g/dL (3.4-5.0) Test 05/26/18 08:08 Glucose (Fingerstick) 163 mg/dL (70-99) CT chest/abd/pelvis, 05/25 1. Extensive coronary artery disease. 2. Scattered bilateral pleural-parenchymal opacities as described above may represent scarring. A neoplastic etiology cannot be excluded and CT follow-up may be prudent. 3. Small bilateral pleural effusions with mild bibasilar atelectasis. 4. Distended gallbladder containing material of medium density. This may represent sludge or vicarious excretion of IV iodinated contrast if the patient has undergone a recent contrast study. 5. Additional miscellaneous chronic findings as described above. Micro 05/24. BLOOD CULTURE Preliminary NO GROWTH AFTER 2 DAYS Objective Assessment Fevers. repeat UA and BC from 05/24 neg so far Constipation MRSA bacteremia (4 of 4 bottles) with sepsis, POA source possible foot infection -CRYSTAL done no vegetations 05/21; BC from 05/20 & 05/21 neg Infected necrotic ulcer left ankle s/p I and D 05/21. 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 Severe PAD s/p BLE stents and previous toe amputations Bioprosthetic aortic valve Renal insufficiency/JIMMY Encephalopathy - improved Coagulopathy, on chronic warfarin A- fib RVR Diabetes Type II h/o PSA ( R quinolones & I imipenem) h/o group B strep bacteremia, 2016 Plan Plan of Care Dapto (susceptibility testing pending) Merrem (05/24), was on zosyn off IV Vanc due to JIMMY Repeat BC, UA c/s from 05/24 NGTD Monitor labs and renal function closely Local wound care and offloading Attending Co-Sign Attending Co-Sign The patient was seen and interviewed as well as examined at the bedside. The chart was reviewed. The case was discussed. Agree with the plan of care. GIO GASPAR APRN May 26, 2018 11:03 MACARIO PRIEST MD May 26, 2018 13:51
--- NOTE | 2018-05-26 11:44 | PDOC ---
PROGRESS NOTES Chief Complaint Chief Complaint Severe sepsis cellulitis w/ gangrenous toes MRSA bacteremia (4 of 4 bottles) with sepsis, POA source //foot infection -CRYSTAL done no vegetations 05/21; BC from 05/20 & 05/21 neg A. 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 A neoplastic etiology cannot be excluded and CT follow-up may be prudent. Small bilateral pleural effusions with mild bibasilar atelectasis. Distended gallbladder containing material of medium density. 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 CRYSTAL done concurrently showing EF 35-40%, no valvular vegetations noted. 05/23: Overnight BP was low, blood glucose low. Today more alert. Some pain in entire right leg, marked weakness. Hypoglycemic to 35 Pt denies any chest pain - no palpitations. No nausea or vomiting or diarrhea. + dyspnea and weakness today. On O2 currently Staph on blood cultures. 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 44 min pt exam, record review, > 50% of time spent with pt exam, chart review, pt care coordination Vitals Vitals Vital Signs Date Time Temp Pulse Resp B/P (MAP) Pulse Ox O2 Delivery O2 Flow Rate FiO2 05/26/18 09:00 63 104/41 05/26/18 08:37 Nasal Cannula 2.0 05/26/18 07:00 99.8 12 92 99.8 Physical Exam Physical Exam Propped up in bed, alert, eating HEENT: Pupils equally round, reactive. Normal conjunctivae. Oral cavity, pharynx pink, dry NECK: Supple. LUNGS: Clear anteriorly HEART: S1 and S2, soft murmur. Irregular. ABDOMEN: Obese, soft and nontender with bowel sounds present. GENITOURINARY: Indwelling Crawley in place. 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 Left foot bandaged. SKIN: Warm without rash. No peripheral stigmata. Several tattoos. NEUROLOGIC: Alert, coop General: Alert, Oriented X3, Cooperative, No acute distress Heart: Other (AFIB) Lungs: Clear Abdomen: Normal bowel sounds, Soft, No tenderness, Other (obese) Extremities: Other (1+ edema pitting to bilateral LE; erythema to ankle to feet worse to left foot with gangrenous/necrotic toes) Skin: Other (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 and 2 gangrenous toes on the right, chronic hyperpigmentation bilateral shins and foot) Labs LABS CT of the chest, abdomen and pelvis without contrast, 05/25/2018: HISTORY: Fever, shortness of breath Noncontrast scans were obtained as requested. There is moderate calcific plaquing of the thoracic aorta and its branches without evidence of aneurysm. An aortic valvular prosthesis is in place. Extensive coronary artery calcifications are present. The heart is generally enlarged. There are right hilar calcifications compatible with old granulomatous disease. No mediastinal adenopathy is evident. Poststernotomy changes are present. A calcified granuloma is present in the right upper lobe. There are small bilateral pleural effusions with mild associated atelectasis posteriorly in both lung bases. There is mild streaky infiltrate or scarring posterior laterally in the right upper lobe abutting the superior aspect of the oblique fissure. A small streaky subpleural opacity is present laterally in the right upper lobe which may represent scarring or atelectasis. Additional peripheral linear opacities in both lungs are probably scars. There is mild soft tissue pleural thickening on the left which is most prominent laterally in the lower chest as seen on axial image 36 of series #2. The unopacified liver is unremarkable. The gallbladder is distended. It contains medium density material. There is no evidence of pericholecystic edema. There is fatty infiltration of the pancreas. No pancreatic mass is evident. The spleen is of normal size. There is moderate bilateral renal cortical scarring with mild streaky perinephric edema. Several renal cysts are noted with the largest of these on the right measuring 4.5 cm. The kidneys show no evidence of obstruction. No adrenal abnormality is detected. There is moderate aortoiliac calcific plaquing without evidence of aneurysm. No abdominal or pelvic adenopathy is seen. Artifacts arising from a left hip prosthesis degrade image quality in the lower pelvis. A Crawley catheter extends into the collapsed urinary bladder. There are mild scattered colonic diverticula. No paracolonic inflammatory process is seen. The bowel loops are not dilated. No free fluid or free air is evident in the abdomen or pelvis. There is a moderate thoracolumbar scoliosis with moderate multilevel degenerative change. 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 IMPRESSION: 1. Extensive coronary artery disease. 2. Scattered bilateral pleural-parenchymal opacities as described above may represent scarring. A neoplastic etiology cannot be excluded and CT follow-up may be prudent. 3. Small bilateral pleural effusions with mild bibasilar atelectasis. 4. Distended gallbladder containing material of medium density. This may represent sludge or vicarious excretion of IV iodinated contrast if the patient has undergone a recent contrast study. 5. Additional miscellaneous chronic findings as described above. PQRS Compliance Statement: One or more of the following individualized dose reduction techniques were utilized for this examination: 1. Automated exposure control 2. Adjustment of the mA and/or kV according to patient size 3. Use of iterative reconstruction technique Electronically signed by: Sammy Rahman MD (05/25/2018 12:49 PM) [facility] DICTATED and SIGNED BY: SAMMY RAHMAN MD Laboratory Tests Test 05/25/18 12:12 05/25/18 16:26 05/25/18 19:35 05/26/18 05:00 Glucose (Fingerstick) 146 mg/dL (70-99) 158 mg/dL (70-99) 135 mg/dL (70-99) White Blood Count 12.8 x10^3/uL (4.0-11.0) Red Blood Count 3.07 x10^6/uL (4.30-5.70) Hemoglobin 8.2 g/dL (13.0-17.5) Hematocrit 26.0 % (39.0-53.0) Mean Corpuscular Volume 85 fL (79-100) Mean Corpuscular Hemoglobin 27 pg (25-35) Mean Corpuscular Hemoglobin Concent 32 g/dL (31-37) Red Cell Distribution Width 16.4 % (11.5-14.5) Platelet Count 235 x10^3/uL (140-400) Neutrophils (%) (Auto) 82 % (31-73) Lymphocytes (%) (Auto) 6 % (24-48) Monocytes (%) (Auto) 10 % (0-9) Eosinophils (%) (Auto) 2 % (0-3) Basophils (%) (Auto) 0 % (0-3) Neutrophils # (Auto) 10.5 x10^3uL (1.8-7.7) Lymphocytes # (Auto) 0.8 x10^3/uL (1.0-4.8) Monocytes # (Auto) 1.3 x10^3/uL (0.0-1.1) Eosinophils # (Auto) 0.2 x10^3/uL (0.0-0.7) Basophils # (Auto) 0.1 x10^3/uL (0.0-0.2) Prothrombin Time 17.6 SEC (11.7-14.0) Prothromb Time International Ratio 1.5 (0.8-1.1) Sodium Level 137 mmol/L (136-145) Potassium Level 4.2 mmol/L (3.5-5.1) Chloride Level 102 mmol/L (98-107) Carbon Dioxide Level 27 mmol/L (21-32) Anion Gap 8 (6-14) Blood Urea Nitrogen 23 mg/dL (8-26) Creatinine 1.5 mg/dL (0.7-1.3) Estimated GFR (Cockcroft-Gault) 45.5 Glucose Level 169 mg/dL (70-99) Calcium Level 8.3 mg/dL (8.5-10.1) Phosphorus Level 2.2 mg/dL (2.6-4.7) Albumin 1.6 g/dL (3.4-5.0) Test 05/26/18 08:08 Glucose (Fingerstick) 163 mg/dL (70-99) Assessment and Plan Assessmemt and Plan Problems Medical Problems: (1) Fever Status: Acute (2) Gangrene of toe Status: Acute (3) Leukocytosis Status: Acute (4) Severe sepsis Status: Acute Comment Review of Relevant I have reviewed the following items navi (where applicable) has been applied. Labs Laboratory Tests Test 05/24/18 16:28 05/24/18 20:12 05/25/18 04:30 05/25/18 05:58 Glucose (Fingerstick) 124 mg/dL (70-99) 133 mg/dL (70-99) 34 mg/dL (70-99) White Blood Count 10.6 x10^3/uL (4.0-11.0) Red Blood Count 3.06 x10^6/uL (4.30-5.70) Hemoglobin 8.3 g/dL (13.0-17.5) Hematocrit 26.2 % (39.0-53.0) Mean Corpuscular Volume 86 fL (79-100) Mean Corpuscular Hemoglobin 27 pg (25-35) Mean Corpuscular Hemoglobin Concent 32 g/dL (31-37) Red Cell Distribution Width 16.3 % (11.5-14.5) Platelet Count 194 x10^3/uL (140-400) Neutrophils (%) (Auto) 81 % (31-73) Lymphocytes (%) (Auto) 7 % (24-48) Monocytes (%) (Auto) 10 % (0-9) Eosinophils (%) (Auto) 2 % (0-3) Basophils (%) (Auto) 0 % (0-3) Neutrophils # (Auto) 8.6 x10^3uL (1.8-7.7) Lymphocytes # (Auto) 0.7 x10^3/uL (1.0-4.8) Monocytes # (Auto) 1.0 x10^3/uL (0.0-1.1) Eosinophils # (Auto) 0.2 x10^3/uL (0.0-0.7) Basophils # (Auto) 0.0 x10^3/uL (0.0-0.2) Prothrombin Time 17.8 SEC (11.7-14.0) Prothromb Time International Ratio 1.5 (0.8-1.1) Sodium Level 137 mmol/L (136-145) Potassium Level 3.7 mmol/L (3.5-5.1) Chloride Level 101 mmol/L (98-107) Carbon Dioxide Level 28 mmol/L (21-32) Anion Gap 8 (6-14) Blood Urea Nitrogen 25 mg/dL (8-26) Creatinine 1.5 mg/dL (0.7-1.3) Estimated GFR (Cockcroft-Gault) 45.5 Glucose Level 121 mg/dL (70-99) Calcium Level 8.1 mg/dL (8.5-10.1) Phosphorus Level 2.2 mg/dL (2.6-4.7) Albumin 1.6 g/dL (3.4-5.0) Test 05/25/18 06:24 05/25/18 07:35 05/25/18 12:12 05/25/18 16:26 Glucose (Fingerstick) 182 mg/dL (70-99) 172 mg/dL (70-99) 146 mg/dL (70-99) 158 mg/dL (70-99) Test 05/25/18 19:35 05/26/18 05:00 05/26/18 08:08 Glucose (Fingerstick) 135 mg/dL (70-99) 163 mg/dL (70-99) White Blood Count 12.8 x10^3/uL (4.0-11.0) Red Blood Count 3.07 x10^6/uL (4.30-5.70) Hemoglobin 8.2 g/dL (13.0-17.5) Hematocrit 26.0 % (39.0-53.0) Mean Corpuscular Volume 85 fL (79-100) Mean Corpuscular Hemoglobin 27 pg (25-35) Mean Corpuscular Hemoglobin Concent 32 g/dL (31-37) Red Cell Distribution Width 16.4 % (11.5-14.5) Platelet Count 235 x10^3/uL (140-400) Neutrophils (%) (Auto) 82 % (31-73) Lymphocytes (%) (Auto) 6 % (24-48) Monocytes (%) (Auto) 10 % (0-9) Eosinophils (%) (Auto) 2 % (0-3) Basophils (%) (Auto) 0 % (0-3) Neutrophils # (Auto) 10.5 x10^3uL (1.8-7.7) Lymphocytes # (Auto) 0.8 x10^3/uL (1.0-4.8) Monocytes # (Auto) 1.3 x10^3/uL (0.0-1.1) Eosinophils # (Auto) 0.2 x10^3/uL (0.0-0.7) Basophils # (Auto) 0.1 x10^3/uL (0.0-0.2) Prothrombin Time 17.6 SEC (11.7-14.0) Prothromb Time International Ratio 1.5 (0.8-1.1) Sodium Level 137 mmol/L (136-145) Potassium Level 4.2 mmol/L (3.5-5.1) Chloride Level 102 mmol/L (98-107) Carbon Dioxide Level 27 mmol/L (21-32) Anion Gap 8 (6-14) Blood Urea Nitrogen 23 mg/dL (8-26) Creatinine 1.5 mg/dL (0.7-1.3) Estimated GFR (Cockcroft-Gault) 45.5 Glucose Level 169 mg/dL (70-99) Calcium Level 8.3 mg/dL (8.5-10.1) Phosphorus Level 2.2 mg/dL (2.6-4.7) Albumin 1.6 g/dL (3.4-5.0) Laboratory Tests Test 05/25/18 12:12 05/25/18 16:26 05/25/18 19:35 05/26/18 05:00 Glucose (Fingerstick) 146 mg/dL (70-99) 158 mg/dL (70-99) 135 mg/dL (70-99) White Blood Count 12.8 x10^3/uL (4.0-11.0) Red Blood Count 3.07 x10^6/uL (4.30-5.70) Hemoglobin 8.2 g/dL (13.0-17.5) Hematocrit 26.0 % (39.0-53.0) Mean Corpuscular Volume 85 fL (79-100) Mean Corpuscular Hemoglobin 27 pg (25-35) Mean Corpuscular Hemoglobin Concent 32 g/dL (31-37) Red Cell Distribution Width 16.4 % (11.5-14.5) Platelet Count 235 x10^3/uL (140-400) Neutrophils (%) (Auto) 82 % (31-73) Lymphocytes (%) (Auto) 6 % (24-48) Monocytes (%) (Auto) 10 % (0-9) Eosinophils (%) (Auto) 2 % (0-3) Basophils (%) (Auto) 0 % (0-3) Neutrophils # (Auto) 10.5 x10^3uL (1.8-7.7) Lymphocytes # (Auto) 0.8 x10^3/uL (1.0-4.8) Monocytes # (Auto) 1.3 x10^3/uL (0.0-1.1) Eosinophils # (Auto) 0.2 x10^3/uL (0.0-0.7) Basophils # (Auto) 0.1 x10^3/uL (0.0-0.2) Prothrombin Time 17.6 SEC (11.7-14.0) Prothromb Time International Ratio 1.5 (0.8-1.1) Sodium Level 137 mmol/L (136-145) Potassium Level 4.2 mmol/L (3.5-5.1) Chloride Level 102 mmol/L (98-107) Carbon Dioxide Level 27 mmol/L (21-32) Anion Gap 8 (6-14) Blood Urea Nitrogen 23 mg/dL (8-26) Creatinine 1.5 mg/dL (0.7-1.3) Estimated GFR (Cockcroft-Gault) 45.5 Glucose Level 169 mg/dL (70-99) Calcium Level 8.3 mg/dL (8.5-10.1) Phosphorus Level 2.2 mg/dL (2.6-4.7) Albumin 1.6 g/dL (3.4-5.0) Test 05/26/18 08:08 Glucose (Fingerstick) 163 mg/dL (70-99) Microbiology 05/24/18 Blood Culture - Preliminary, Resulted NO GROWTH AFTER 1 DAY 05/19/18 Urine Culture - Final, Complete 05/19/18 Urine Culture Result 1 (FELICITA) - Final, Complete 05/19/18 Anaerobic/Aerobic Culture - Final, Complete 05/19/18 Anaerobic Culture Result 1 (FELICITA) - Final, Complete 05/19/18 Aerobic Culture - Final, Complete 05/19/18 Aerobic Culture Result 1 (FELICITA) - Final, Complete 05/19/18 Aerobic Culture Result 2 (FELICITA) - Final, Complete 05/19/18 Antimicrobic Susceptibility - Final, Complete 05/19/18 Gram Stain - Final, Complete 05/19/18 Gram Stain Result 1 (FELICITA) - Final, Complete 05/19/18 Gram Stain Result 2 (FELICITA) - Final, Complete Medications Current Medications Sodium Chloride 1,000 ml @ 2,190 mls/hr Q28M IV Last administered on at 14:36; Start 05/18/18 at 12:52; Stop 05/18/18 at 13:52; Status DC Piperacillin Sod/ Tazobactam Sod 4.5 gm/Sodium Chloride 100 ml @ 200 mls/hr 1X ONCE IV Last administered on 05/18/18at 14:34; Start 05/18/18 at 13:00; Stop 05/18/18 at 13:29; Status DC Vancomycin HCl (Vanco Per Pharmacy) 1 each 1X ONCE MC Last administered on 01/24at 13:00; Start 05/18/18 at 13:00; Stop 05/18/18 at 13:11; Status DC Vancomycin HCl 2 gm/Sodium Chloride 500 ml @ 250 mls/hr 1X ONCE IV Last administered on 05/18/18at 15:28; Start 05/18/18 at 13:15; Stop 05/18/18 at 15:14 ; Status DC Ondansetron HCl (Zofran) 4 mg PRN Q8HRS PRN IV NAUSEA/VOMITING; Start 05/18/18 at 14:45; Stop 05/18/18 at 15:28; Status DC Fentanyl Citrate (Fentanyl 2ml Vial) 50 mcg PRN Q1HR PRN IV PAIN; Start at 14:45; Stop 05/19/18 at 11:50; Status DC Sodium Chloride 1,000 ml @ 80 mls/hr [id number] IV ; Start 05/18/18 at 14:43; Stop 05/18/18 at 18:42; Status DC Acetaminophen (Tylenol) 650 mg 1X ONCE PO Last administered on 05/18/18at 15:29 ; Start 05/18/18 at 15:30; Stop 05/18/18 at 15:31; Status DC Ondansetron HCl (Zofran) 4 mg PRN Q6HRS PRN IV NAUSEA/VOMITING Last administered on 05/24/18at 06:14; Start 05/18/18 at 15:30 Diltiazem HCl (Cardizem Iv Push) 10 mg 1X ONCE IVP ; Start 05/18/18 at 15:30; Stop 05/18/18 at 15:31; Status DC Acetaminophen (Tylenol) 500 mg PRN Q6HRS PRN PO MILD PAIN / TEMP; Start at 15:30; Stop 05/18/18 at 16:14; Status DC Acetaminophen/ Codeine Phosphate (Tylenol #3) 1 tab PRN Q6HRS PRN PO MODERATE PAIN Last administered on 05/22/18 16:19; Start 05/18/18 at 15:30 Morphine Sulfate (Morphine Sulfate) 2 mg PRN Q2HR PRN IV PAIN Last administered on 05/26/18 09:24; Start 05/18/18 at 15:30 Oxycodone/ Acetaminophen (Percocet 5/325) 1 tab PRN Q4HRS PRN PO SEVERE PAIN Last administered on 05/26/18 09:24; Start 05/18/18 at 15:30 Albuterol Sulfate (Ventolin Hfa) 2 puff PRN Q6HRS PRN IH SHORTNESS OF BREATH; Start 05/18/18 at 15:30; Status UNV Digoxin (Lanoxin) 125 mcg DAILY PO ; Start 05/19/18 at 09:00; Stop 05/19/18 at 09:00; Status DC Furosemide (Lasix) 40 mg DAILY PO Last administered on 05/25/18 09:04; Start 05/19/18 at 09:00 Gabapentin (Neurontin) 300 mg DAILY PO Last administered on 05/26/18at 09:15; Start 05/19/18 at 09:00 Lisinopril (Prinivil) 20 mg DAILY PO Last administered on 05/19/18at 10:14; Start 05/19/18 at 09:00; Stop 05/24/18 at 15:20; Status DC Metoprolol Tartrate (Lopressor) 50 mg BID PO Last administered on 05/25/18at 09: 07; Start 05/18/18 at 21:00 Oxycodone/ Acetaminophen (Percocet 10/325) 1 tab PRN Q6HRS PRN PO SEVERE PAIN ( 2ND Choice) Last administered on 05/26/18at 03:43; Start 05/18/18 at 15:30 Oxycodone/ Acetaminophen (Percocet 5/325) 1 tab PRN Q4HRS PRN PO PAIN; Start at 15:30; Status UNV Acetaminophen (Tylenol) 500 mg PRN Q6HRS PRN PO MILD PAIN / TEMP Last administered on 05/24/18 21:23; Start 05/18/18 at 16:15 Atorvastatin Calcium (Lipitor) 80 mg QHS PO Last administered on 05/24/18 21: 26; Start 05/18/18 at 21:00 Hydralazine HCl (Apresoline) 10 mg TID PO Last administered on 05/25/18 13:53 ; Start 05/18/18 at 16:00 Insulin Human Lispro (HumaLOG) 10 units DAILYWBKFT SQ Last administered on 05/23at 08:58; Start 05/18/18 at 17:00; Stop 05/23/18 at 14:25; Status DC Levetiracetam (Keppra) 1,250 mg BID PO Last administered on 05/26/18 09:14; Start 05/18/18 at 21:00 Metformin HCl (Glucophage) 1,000 mg BIDWMEALS PO Last administered on 09:15; Start 05/18/18 at 17:00 Multivitamins (Thera M Plus) 1 tab DAILY PO Last administered on 05/26/18at 09: 14; Start 05/19/18 at 09:00 Potassium Chloride (Klor-Con) 20 meq DAILYWBKFT PO Last administered on at 09:15; Start 05/19/18 at 08:00 Risperidone (RisperDAL) 1 mg QHS PO Last administered on 05/24/18 21:47; Start 05/18/18 at 21:00 Non-Formulary Medication (Rosuvastatin Calcium (Crestor)) 40 mg DAILY PO ; Start 05/19/18 at 09:00; Status UNV Zonisamide (Zonegran) 400 mg DAILY PO Last administered on 05/26/18at 09:14; Start 05/19/18 at 09:00 Albuterol/ Ipratropium (Duoneb) 3 ml Q4HRS W/A NEB Last administered on at 19:36; Start 05/18/18 at 18:00 Insulin Human Lispro (HumaLOG) 0-9 UNITS TIDWMEALS SQ Last administered on 05/22at 17:23; Start 05/18/18 at 17:00 Dextrose (Dextrose 50%-Water Syringe) 12.5 gm PRN Q15MIN PRN IV SEE COMMENTS Last administered on 05/25/18at 06:04; Start 05/18/18 at 15:30 Albuterol Sulfate (Ventolin Neb Soln) 2.5 mg PRN Q6HRS PRN NEB SHORTNESS OF BREATH Last administered on 05/26/18at 08:35; Start 05/18/18 at 15:45 Piperacillin Sod/ Tazobactam Sod 3.375 gm/Sodium Chloride 50 ml @ 100 mls/hr Q6HRS IV Last administered on 05/24/18at 05:33; Start 05/18/18 at 18:00; Stop at 08:09; Status DC Potassium Chloride (Klor-Con) 40 meq 1X ONCE PO Last administered on at 10:14; Start 05/19/18 at 08:30; Stop 05/19/18 at 08:31; Status DC Heparin Sodium (Porcine) (Heparin Sodium) 5,000 unit Q8HRS SQ ; Start 05/19/18 at 14:00; Stop 05/19/18 at 14:00; Status DC Furosemide (Lasix) 40 mg 1X ONCE IVP Last administered on 05/19/18 10:12; Start 05/19/18 at 08:45; Stop 05/19/18 at 08:46; Status DC Phytonadione (Vitamin K Ampule) 10 mg 1X ONCE SQ Last administered on at 10:16; Start 05/19/18 at 10:00; Stop 05/19/18 at 10:01; Status DC Vancomycin HCl (Vanco Per Pharmacy) 1 each PRN DAILY PRN MC SEE COMMENTS Last administered on 05/19/18at 10:32; Start 05/19/18 at 10:00; Stop 05/20/18 at 10:42 ; Status DC Phytonadione (Vitamin K Ampule) 10 mg 1X ONCE SQ ; Start 05/19/18 at 10:15; Stop 05/19/18 at 10:16; Status UNV Vancomycin HCl 1.75 gm/Sodium Chloride 500 ml @ 250 mls/hr Q24H IV Last administered on 05/19/18at 16:59; Start 05/19/18 at 16:00; Stop 05/20/18 at 10:42 ; Status DC Vancomycin HCl (Vancomycin Trough Level) 1 each 1X ONCE MC ; Start 05/20/18 at 16:30; Stop 05/20/18 at 16:30; Status DC Acetaminophen (Tylenol Supp) 650 mg PRN Q6HRS PRN [place] MILD PAIN / TEMP Last administered on 05/23/18at 23:33; Start 05/20/18 at 01:15 Sodium Chloride 500 ml @ 333 mls/hr 1X ONCE IV Last administered on at 01:14; Start 05/20/18 at 01:15; Stop 05/20/18 at 02:45; Status DC Phytonadione 5 mg/ Dextrose 50.5 ml @ 101 mls/hr 1X ONCE IV Last administered on 05/20/18at 10:08; Start 05/20/18 at 10:30; Stop 05/20/18 at 10:59 ; Status DC Daptomycin 590 mg/ Sodium Chloride 50 ml @ 100 mls/hr Q24H IV Last administered on 05/25/18at 13:21; Start 05/20/18 at 12:00 Ondansetron HCl (Zofran) 4 mg PRN Q6HRS PRN IV NAUSEA/VOMITING; Start 05/21/18 at 09:45; Stop 05/22/18 at 09:44; Status DC Fentanyl Citrate (Fentanyl 2ml Vial) 25 mcg PRN Q5MIN PRN IV MILD PAIN; Start 05/21/18 at 09:45; Stop 05/22/18 at 09:44; Status DC Fentanyl Citrate (Fentanyl 2ml Vial) 50 mcg PRN Q5MIN PRN IV MODERATE TO SEVERE PAIN; Start 05/21/18 at 09:45; Stop 05/22/18 at 09:44; Status DC Morphine Sulfate (Morphine Sulfate) 1 mg PRN Q10MIN PRN IV SEVERE PAIN; Start 05/21/18 at 09:45; Stop 05/22/18 at 09:44; Status DC Ringer's Solution 1,000 ml @ 30 mls/hr Q24H IV ; Start 05/21/18 at 09:39; Stop 05/22/18 at 00:37; Status DC Lidocaine HCl (Xylocaine-Mpf 1% 2ml Vial) 2 ml 1X PRN PRN ID IV START; Start at 09:45; Stop 05/22/18 at 09:44; Status DC Hydromorphone HCl (Dilaudid) 0.5 mg PRN Q10MIN PRN IV SEV PAIN, Second choice; Start 05/21/18 at 09:45; Stop 05/22/18 at 09:44; Status DC Prochlorperazine Edisylate (Compazine) 5 mg PACU PRN PRN IV NAUSEA, MRX1; Start 05/21/18 at 09:45; Stop 05/22/18 at 09:44; Status DC Lidocaine HCl (Glydo (Lidocaine) Jelly) 1 vianney 1X ONCE MM ; Start 05/21/18 at 12 :30; Stop 05/21/18 at 12:31; Status DC Propofol 20 ml @ As Directed STK-MED ONCE IV ; Start 05/21/18 at 12:27; Stop at 12:28; Status DC Dexamethasone Sodium Phosphate (Decadron) 20 mg STK-MED ONCE .ROUTE ; Start at 12:27; Stop 05/21/18 at 12:28; Status DC Famotidine (Pepcid Vial) 20 mg STK-MED ONCE .ROUTE ; Start 05/21/18 at 12:27; Stop 05/21/18 at 12:28; Status DC Lidocaine HCl (Lidocaine Pf 2% Vial) 5 ml STK-MED ONCE .ROUTE ; Start 05/21/18 at 12:27; Stop 05/21/18 at 12:28; Status DC Ondansetron HCl (Zofran) 4 mg STK-MED ONCE .ROUTE ; Start 05/21/18 at 12:27; Stop 05/21/18 at 12:28; Status DC Fentanyl Citrate (Fentanyl 2ml Vial) 100 mcg STK-MED ONCE .ROUTE ; Start at 12:27; Stop 05/21/18 at 12:28; Status DC Bacitracin 01918 unit/Sodium Chloride 500 ml @ 500 mls/hr 1X ONCE IRR ; Start 05/21/18 at 12:40; Stop 05/21/18 at 13:39; Status DC Cefazolin Sodium 1 gm/Sodium Chloride 500 ml @ 500 mls/hr 1X ONCE IRR ; Start 05/21/18 at 12:40; Stop 05/21/18 at 13:39; Status DC Lidocaine HCl 20 ml STK-MED ONCE .ROUTE ; Start 05/21/18 at 11:42; Stop at 12:42; Status DC Esmolol HCl (Brevibloc) 100 mg STK-MED ONCE IVP ; Start 05/21/18 at 13:01; Stop 05/21/18 at 13:02; Status DC Esmolol HCl (Brevibloc) 100 mg STK-MED ONCE IVP ; Start 05/21/18 at 14:22; Stop 05/21/18 at 14:23; Status DC Neomycin/ Polymyxin/ Bacitracin (Triple Antibiotic Ointment) 1 pkt STK-MED ONCE TP Last administered on 05/21/18at 14:41; Start 05/21/18 at 13:38; Stop at 14:38; Status DC Sevoflurane (Ultane) 90 ml STK-MED ONCE IH ; Start 05/21/18 at 14:40; Stop 05/21 at 14:41; Status DC Naloxone HCl (Narcan) 0.4 mg PRN Q2MIN PRN IV SEE INSTRUCTIONS; Start 05/21/18 at 15:00 Sodium Chloride 1,000 ml @ 25 mls/hr Q24H IV ; Start 05/21/18 at 14:57; Stop at 07:00; Status DC Morphine Sulfate 30 ml @ 0 mls/hr CONT PRN PRN IV PER PROTOCOL; Start 05/21/18 at 15:00 Labetalol HCl (Normodyne Iv Push) 20 mg PRN Q2HR PRN IVP HYPERTENSION, SEE COMMENTS Last administered on 05/24/18at 00:15; Start 05/21/18 at 15:30 Labetalol HCl (Normodyne Iv Push) 5 mg 1X PACU PRN IVP tachycardia and HTN Last administered on 05/21/18at 15:30; Start 05/21/18 at 15:30; Stop 05/22/18 at 09:09; Status DC Insulin Glargine (Lantus) 3 units 1X ONCE SQ Last administered on 05/21/18at 22 :00; Start 05/21/18 at 22:00; Stop 05/22/18 at 01:31; Status DC Aspirin (Ecotrin) 81 mg [id number] PO Last administered on 05/26/18at 09:14; Start 05/23/18 at 08:00 Digoxin (Lanoxin) 250 mcg 1X ONCE IV Last administered on 05/22/18at 12:28; Start 05/22/18 at 12:30; Stop 05/22/18 at 12:31; Status DC Warfarin Sodium (Coumadin) 6 mg DAILY16 PO ; Start 05/22/18 at 16:00; Stop 05/22 at 16:00; Status DC Warfarin Sodium (Coumadin) 2.5 mg 3X/WEEK PO ; Start 05/23/18 at 09:00; Status UNV Warfarin Sodium (Coumadin Per Physician) 1 each PRN DAILY PRN MC SEE COMMENTS; Start 05/22/18 at 14:45; Stop 05/22/18 at 14:57; Status DC Warfarin Sodium (Coumadin Per Pharmacy) 1 each PRN DAILY PRN MC SEE COMMENTS Last administered on 05/25/18at 14:01; Start 05/22/18 at 15:00 Warfarin Sodium (Coumadin) 4 mg 1X WARF ONCE PO Last administered on at 16:19; Start 05/22/18 at 16:00; Stop 05/22/18 at 16:01; Status DC Warfarin Sodium (Coumadin) 4 mg 1X WARF ONCE PO ; Start 05/23/18 at 16:00; Stop 05/23/18 at 16:01; Status DC Ringer's Solution 1,000 ml @ 75 mls/hr [id number] IV ; Start 05/23/18 at 13:45; Status Cancel Ringer's Solution 1,000 ml @ 75 mls/hr [id number] IV Last administered on at 09:15; Start 05/23/18 at 14:00 Insulin Human Lispro (HumaLOG) 7 units DAILYWBKFT SQ ; Start 05/24/18 at 08:00; Stop 05/25/18 at 12:44; Status DC Dextrose (Dextrose 50%-Water Syringe) 25 gm 1X ONCE IV Last administered on at 13:15; Start 05/23/18 at 17:45; Stop 05/23/18 at 17:46; Status DC Meropenem 500 mg/ Sodium Chloride 50 ml @ 100 mls/hr Q6HRS IV Last administered on 05/26/18at 06:16; Start 05/24/18 at 12:00 Warfarin Sodium (Coumadin) 6 mg 1X WARF ONCE PO Last administered on at 15:33; Start 05/24/18 at 16:00; Stop 05/24/18 at 16:01; Status DC Insulin Human Lispro (HumaLOG) 3 units DAILYWBKFT SQ ; Start 05/26/18 at 08:00 Warfarin Sodium (Coumadin) 6 mg 1X WARF ONCE PO Last administered on at 16:04; Start 05/25/18 at 16:00; Stop 05/25/18 at 16:01; Status DC Active Scripts Active Digoxin 125 Mcg Tablet 125 Mcg PO DAILY Furosemide 40 Mg Tablet 40 Mg PO DAILY Metoprolol Tartrate 50 Mg Tablet 50 Mg PO BID [Warfarin Sodium] 1 EACH Each 1 Each MC PRN DAILY PRN Lisinopril 20 Mg Tablet 20 Mg PO DAILY Duoneb 0.5-3(2.5) Mg/3 Ml (Albuterol/Ipratropium) 3 Ml Ampul.neb 3 Ml NEB Q4HRS W/A 30 Days Hydralazine Hcl 10 Mg Tablet 10 Mg PO TID Reported Zonisamide 100 Mg Capsule 400 Mg PO DAILY Percocet 5-325 Mg Tablet (Oxycodone/Acetaminophen) 1 Each Tablet 1 Tab PO PRN Q4HRS PRN Multivitamins (Multivitamin) 1 Each Tablet 1 Tab PO DAILY Levetiracetam 250 Mg Tablet 1,250 Mg PO BID Novolin N (Nph, Human Insulin Isophane) 100 Unit/1 Ml Vial Unknown Dose SQ Atorvastatin Calcium 80 Mg Tablet 1 Tab PO DAILY Acetaminophen 500 Mg Tablet 1 Tab PO PRN Q6HRS PRN Albuterol Sulfate Hfa Inhaler (Albuterol Sulfate) 8.5 Gm Hfa.aer.ad 2 Puff IH PRN Q6HRS PRN Aspirin Ec (Aspirin) 325 Mg Tablet.dr 81 Mg PO DAILY Crestor (Rosuvastatin Calcium) 40 Mg Tablet 40 Mg PO DAILY Warfarin Sodium 5 Mg Tablet 6 Mg PO DAILY Warfarin Sodium 2.5 Mg Tablet 2.5 Mg PO 3X/WEEK monday,monday, Gabapentin (Gabapentin) 300 Mg Capsule 300 Mg PO DAILY Risperidone 1 Mg Tablet 1 Mg PO HS Novolog (Insulin Aspart) 100 Unit/1 Ml Vial 10 Unit SQ DAILYAC Oxycodone-Acetaminophen 10-325 (Oxycodone Hcl/Acetaminophen) 1 Each Tablet 1 Each PO PRN Q6HRS Potassium 99 Mg Tablet 20 Meq PO DAILY Prednisone (Prednisone) 10 Mg Tablet 10 Mg PO DAILY Metformin Hcl 500 Mg Tablet 1,000 Mg PO BIDBFRMEAL Vitals/I & O Vital Sign - Last 24 Hours 05/25/18 05/25/18 05/25/18 05/25/18 12:14 13:33 13:34 13:53 Pulse 81 B/P (MAP) 141/61 O2 Delivery Nasal Cannula Nasal Cannula Room Air O2 Flow Rate 2.0 2.0 2.0 05/25/18 05/25/18 05/25/18 05/25/18 14:20 15:10 15:15 16:03 Temp 98.1 98.1 Pulse 76 Resp 18 B/P (MAP) 142/61 (88) Pulse Ox 93 97 94 91 O2 Delivery Nasal Cannula Nasal Cannula Nasal Cannula O2 Flow Rate 1.0 2.0 2.0 05/25/18 05/25/18 05/25/18 05/25/18 16:15 17:05 19:20 19:37 Temp 99.3 100.3 99.3 100.3 Pulse 76 67 Resp 16 16 B/P (MAP) 118/51 (73) 117/39 (65) Pulse Ox 98 91 96 95 O2 Delivery Room Air Room Air Nasal Cannula O2 Flow Rate 2.0 2.0 05/25/18 05/25/18 05/26/18 05/26/18 19:45 23:45 01:25 01:55 Temp 100.9 100.9 Pulse 76 Resp 18 20 20 B/P (MAP) 110/54 (72) Pulse Ox 91 O2 Delivery Nasal Cannula Room Air Room Air Nasal Cannula O2 Flow Rate 2.0 2.0 2.0 05/26/18 05/26/18 05/26/18 05/26/18 03:35 03:43 04:43 07:00 Temp 99.5 99.8 99.5 99.8 Pulse 75 63 Resp 18 20 20 12 B/P (MAP) 149/49 (82) 104/41 (62) Pulse Ox 92 92 O2 Delivery Room Air Nasal Cannula Room Air Room Air O2 Flow Rate 2.0 05/26/18 05/26/18 05/26/18 05/26/18 08:00 08:37 09:00 09:00 Pulse 63 63 B/P (MAP) 104/41 104/41 O2 Delivery Nasal Cannula Nasal Cannula O2 Flow Rate 2.0 2.0 Intake and Output 05/25/18 05/25/18 05/26/18 15:00 23:00 07:00 Intake Total 1360 ml 120 ml 1060 ml Output Total 925 ml 300 ml Balance 1360 ml -805 ml 760 ml Nutrition Consultation Dietary Evaluation: Recommendations by RD: Increase Calorie Intake, Protein supplementation Comments: REC continue ADA/cardiac diet, can liberalize as needed to provide foods that pt likes REC Glucerna TID (chocolate) Continue MVI REC Vit C (500 mg BID) Expected Outcomes/Goals: PO intake to meet >75% est needs - not met, goal ongoing Malnutrition Findings: Food and Nutrition Intake (Mod: <75% est energy req 7days Weight Status: Appropriate KEV HATCH MD May 26, 2018 11:44
[2018-05-26] MEDS: DAPTOmycin (GENERIC) IVPB 590 MG in IV NORMAL SALINE 50ML 50 ML IV SCH (12:41)
[2018-05-26] MEDS: POLYETHYLENE GLYCOL 3350 17 GM PACKET. PO SCH (14:54)
--- NOTE | 2018-05-26 15:30 | NUR ---
1500 vitals showed patient running a temperature of 100.3 orally, upon re-examination, pt shaky and rating pain 10/10 in bilat legs. Vitals temp 98.8 oral, BP 113/67, HR 94. Pt stated that she thinks "fever is coming from the sun beating down on him" PRN medications given. Will continue to monitor.
[2018-05-26] MEDS: ACETAMINOPHEN 500 MG TABLET PO PRN (17:49)
[2018-05-26] MEDS: ATORVASTATIN CALCIUM 40 MG TABLET. PO SCH (20:38)
[2018-05-26] MEDS: risperiDONE 1 MG TABLET. PO SCH (20:38)
[2018-05-26] MEDS: ACETAMINOPHEN/CODEINE 300/30MG TABLET. PO PRN (21:56)
[2018-05-27] MEDS: MEROPENEM 500 MG in IV NORMAL SALINE 50ML 50 ML IV SCH ×5 (00:42→23:31)
[2018-05-27] MEDS: IV RINGERS,LACTATED 1000ML 1,000 ML IV SCH (00:43)
[2018-05-27] MEDS: MORPHINE SULFATE 2 MG/ML VIAL. IV PRN ×5 (02:20→21:29)
[2018-05-27] MEDS: ACETAMINOPHEN 500 MG TABLET PO PRN ×2 (02:20→23:35)
[2018-05-27 03:30] VITALS: BP 126/78
[2018-05-27 05:25] LABS: BASO % 0 % (0-3); EOS # 0.2 x10^3/uL (0.0-0.7); EOS % 2 % (0-3); HEMATOCRIT 25.1 % (39.0-53.0); HEMOGLOBIN 7.9 g/dL (13.0-17.5); LYMPH # 0.7 x10^3/uL (1.0-4.8); LYMPH % 6 % (24-48); MEAN CORPUSCULAR HEMOGLOBIN 27 pg (25-35); MEAN CORPUSCULAR HGB CONC 32 g/dL (31-37); MEAN CORPUSCULAR VOLUME 85 fL (79-100); MONO # 1.2 x10^3/uL (0.0-1.1); MONO % 10 % (0-9); NEUT % 82 % (31-73); PLATELET COUNT 255 x10^3/uL (140-400); RED BLOOD COUNT 2.94 x10^6/uL (4.30-5.70); RED CELL DISTRIBUTION WIDTH 16.4 % (11.5-14.5); WHITE BLOOD COUNT 12.2 x10^3/uL (4.0-11.0)
[2018-05-27 05:33] LABS: CREATININE 1.5 mg/dL (0.7-1.3); GFR 45.5; POTASSIUM 4.4 mmol/L (3.5-5.1)
[2018-05-27 05:34] LABS: PROTHROMBIN TIME PATIENT 18.1 SEC (11.7-14.0)
[2018-05-27 05:40] LABS: CALCIUM 8.1 mg/dL (8.5-10.1)
[2018-05-27 07:00] VITALS: BP 115/41
[2018-05-27] MEDS: INSULIN LISPRO 300 UNITS/3 ML INSULN.PEN. SQ SCH ×4 (08:00→17:00)
[2018-05-27] MEDS: IPRATRPIUM/ALBUTEROL 0.5/2.5MG 3 ML NEBU. NEB SCH ×5 (08:23→20:55)
[2018-05-27] MEDS: POLYETHYLENE GLYCOL 3350 17 GM PACKET. PO SCH (09:00)
[2018-05-27] MEDS: hydrALAZINE 10 MG TABLET PO SCH ×3 (09:00→21:00)
[2018-05-27] MEDS: levETIRAcetam 250 MG TABLET PO SCH ×2 (09:00→21:32)
[2018-05-27] MEDS: METOPROLOL TART IMMED RELEASE 50 MG TABLET. PO SCH ×2 (09:00→21:00)
[2018-05-27] MEDS: FUROSEMIDE 40 MG TABLET. PO SCH (09:00)
--- NOTE | 2018-05-27 09:18 | PDOC ---
PROGRESS NOTES Chief Complaint Chief Complaint Severe sepsis cellulitis w/ gangrenous toes MRSA bacteremia (4 of 4 bottles) with sepsis, POA source //foot infection -CRYSTAL done no vegetations 05/21; BC from 05/20 & 05/21 neg A. 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 A neoplastic etiology cannot be excluded and CT follow-up may be prudent. Small bilateral pleural effusions with mild bibasilar atelectasis. Distended gallbladder containing material of medium density. 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 CRYSTAL // EF 35-40%, no valvular vegetations noted. 05/23: Overnight BP was low, blood glucose low. Today more alert. Some pain in entire right leg, marked weakness. Hypoglycemic to 35 Pt denies any chest pain - no palpitations. No nausea or vomiting or diarrhea. + dyspnea and weakness today. On O2 currently Staph on blood cultures. MRSA on left ankle 05/26 ct reviewed low grade temp, alert Plan: Cont empiric antibiotics - MRSA screen positive and GPC bacteremia, high risk MRSA, now on daptomycin and merrem per ID consultation PT/OT He was on home hospice, [employer] F/u cultures Blood glucose control Pain control HR control GB SONO home with [facility] when discharged. 05/27 temp last night 101.1, blood cult requested 47 min pt exam, record review, > 50% of time spent with pt exam, chart review, pt care coordination Vitals Vitals Vital Signs Date Time Temp Pulse Resp B/P (MAP) Pulse Ox O2 Delivery O2 Flow Rate FiO2 05/27/18 08:25 94 Nasal Cannula 3.0 05/27/18 03:30 100.4 63 20 126/78 (94) 100.4 Physical Exam Physical Exam Propped up in bed, alert, eating HEENT: Pupils equally round, reactive. Normal conjunctivae. Oral cavity, pharynx pink, dry NECK: Supple. LUNGS: Clear anteriorly HEART: S1 and S2, soft murmur. Irregular. ABDOMEN: Obese, soft and nontender with bowel sounds present. GENITOURINARY: Indwelling Crawley in place. 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 Left foot bandaged. SKIN: Warm without rash. No peripheral stigmata. Several tattoos. NEUROLOGIC: Alert, coop General: Alert, Oriented X3, Cooperative, No acute distress, mild distress Heart: Regular rate, Other (AFIB) Lungs: Clear Abdomen: Normal bowel sounds, Soft, No tenderness, Other (obese) Extremities: No cyanosis, Other (1+ edema pitting to bilateral LE; erythema to ankle to feet worse to left foot with gangrenous/necrotic toes) Skin: Other (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 and 2 gangrenous toes on the right, chronic hyperpigmentation bilateral shins and foot) Labs LABS PROCEDURE: CT CHEST ABDOMEN PELVIS WO CT of the chest, abdomen and pelvis without contrast, 05/25/2018: HISTORY: Fever, shortness of breath Noncontrast scans were obtained as requested. There is moderate calcific plaquing of the thoracic aorta and its branches without evidence of aneurysm. An aortic valvular prosthesis is in place. Extensive coronary artery calcifications are present. The heart is generally enlarged. There are right hilar calcifications compatible with old granulomatous disease. No mediastinal adenopathy is evident. Poststernotomy changes are present. A calcified granuloma is present in the right upper lobe. There are small bilateral pleural effusions with mild associated atelectasis posteriorly in both lung bases. There is mild streaky infiltrate or scarring posterior laterally in the right upper lobe abutting the superior aspect of the oblique fissure. A small streaky subpleural opacity is present laterally in the right upper lobe which may represent scarring or atelectasis. Additional peripheral linear opacities in both lungs are probably scars. There is mild soft tissue pleural thickening on the left which is most prominent laterally in the lower chest as seen on axial image 36 of series #2. The unopacified liver is unremarkable. The gallbladder is distended. It contains medium density material. There is no evidence of pericholecystic edema. There is fatty infiltration of the pancreas. No pancreatic mass is evident. The spleen is of normal size. There is moderate bilateral renal cortical scarring with mild streaky perinephric edema. Several renal cysts are noted with the largest of these on the right measuring 4.5 cm. The kidneys show no evidence of obstruction. No adrenal abnormality is detected. There is moderate aortoiliac calcific plaquing without evidence of aneurysm. No abdominal or pelvic adenopathy is seen. Artifacts arising from a left hip prosthesis degrade image quality in the lower pelvis. A Crawley catheter extends into the collapsed urinary bladder. There are mild scattered colonic diverticula. No paracolonic inflammatory process is seen. The bowel loops are not dilated. No free fluid or free air is evident in the abdomen or pelvis. There is a moderate thoracolumbar scoliosis with moderate multilevel degenerative change. 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 IMPRESSION: 1. Extensive coronary artery disease. 2. Scattered bilateral pleural-parenchymal opacities as described above may represent scarring. A neoplastic etiology cannot be excluded and CT follow-up may be prudent. 3. Small bilateral pleural effusions with mild bibasilar atelectasis. 4. Distended gallbladder containing material of medium density. This may represent sludge or vicarious excretion of IV iodinated contrast if the patient has undergone a recent contrast study. 5. Additional miscellaneous chronic findings as described above. PQRS Compliance Statement: One or more of the following individualized dose reduction techniques were utilized for this examination: 1. Automated exposure control 2. Adjustment of the mA and/or kV according to patient size 3. Use of iterative reconstruction technique Electronically signed by: Sammy Rahman MD (05/25/2018 12:49 PM) [facility] DICTATED and SIGNED BY: SAMMY RAHMAN MD DATE: 05/25/18 1249 Laboratory Tests Test 05/26/18 11:44 05/26/18 17:25 05/26/18 21:24 05/27/18 04:35 Glucose (Fingerstick) 159 mg/dL (70-99) 193 mg/dL (70-99) 165 mg/dL (70-99) White Blood Count 12.2 x10^3/uL (4.0-11.0) Red Blood Count 2.94 x10^6/uL (4.30-5.70) Hemoglobin 7.9 g/dL (13.0-17.5) Hematocrit 25.1 % (39.0-53.0) Mean Corpuscular Volume 85 fL (79-100) Mean Corpuscular Hemoglobin 27 pg (25-35) Mean Corpuscular Hemoglobin Concent 32 g/dL (31-37) Red Cell Distribution Width 16.4 % (11.5-14.5) Platelet Count 255 x10^3/uL (140-400) Neutrophils (%) (Auto) 82 % (31-73) Lymphocytes (%) (Auto) 6 % (24-48) Monocytes (%) (Auto) 10 % (0-9) Eosinophils (%) (Auto) 2 % (0-3) Basophils (%) (Auto) 0 % (0-3) Neutrophils # (Auto) 10.0 x10^3uL (1.8-7.7) Lymphocytes # (Auto) 0.7 x10^3/uL (1.0-4.8) Monocytes # (Auto) 1.2 x10^3/uL (0.0-1.1) Eosinophils # (Auto) 0.2 x10^3/uL (0.0-0.7) Basophils # (Auto) 0.0 x10^3/uL (0.0-0.2) Prothrombin Time 18.1 SEC (11.7-14.0) Prothromb Time International Ratio 1.5 (0.8-1.1) Sodium Level 135 mmol/L (136-145) Potassium Level 4.4 mmol/L (3.5-5.1) Chloride Level 101 mmol/L (98-107) Carbon Dioxide Level 26 mmol/L (21-32) Anion Gap 8 (6-14) Blood Urea Nitrogen 20 mg/dL (8-26) Creatinine 1.5 mg/dL (0.7-1.3) Estimated GFR (Cockcroft-Gault) 45.5 Glucose Level 135 mg/dL (70-99) Calcium Level 8.1 mg/dL (8.5-10.1) Test 05/27/18 07:56 Glucose (Fingerstick) 103 mg/dL (70-99) Assessment and Plan Assessmemt and Plan Problems Medical Problems: (1) Fever Status: Acute (2) Gangrene of toe Status: Acute (3) Leukocytosis Status: Acute (4) Severe sepsis Status: Acute Comment Review of Relevant I have reviewed the following items navi (where applicable) has been applied. Labs Laboratory Tests Test 05/25/18 12:12 05/25/18 16:26 05/25/18 19:35 05/26/18 05:00 Glucose (Fingerstick) 146 mg/dL (70-99) 158 mg/dL (70-99) 135 mg/dL (70-99) White Blood Count 12.8 x10^3/uL (4.0-11.0) Red Blood Count 3.07 x10^6/uL (4.30-5.70) Hemoglobin 8.2 g/dL (13.0-17.5) Hematocrit 26.0 % (39.0-53.0) Mean Corpuscular Volume 85 fL (79-100) Mean Corpuscular Hemoglobin 27 pg (25-35) Mean Corpuscular Hemoglobin Concent 32 g/dL (31-37) Red Cell Distribution Width 16.4 % (11.5-14.5) Platelet Count 235 x10^3/uL (140-400) Neutrophils (%) (Auto) 82 % (31-73) Lymphocytes (%) (Auto) 6 % (24-48) Monocytes (%) (Auto) 10 % (0-9) Eosinophils (%) (Auto) 2 % (0-3) Basophils (%) (Auto) 0 % (0-3) Neutrophils # (Auto) 10.5 x10^3uL (1.8-7.7) Lymphocytes # (Auto) 0.8 x10^3/uL (1.0-4.8) Monocytes # (Auto) 1.3 x10^3/uL (0.0-1.1) Eosinophils # (Auto) 0.2 x10^3/uL (0.0-0.7) Basophils # (Auto) 0.1 x10^3/uL (0.0-0.2) Prothrombin Time 17.6 SEC (11.7-14.0) Prothromb Time International Ratio 1.5 (0.8-1.1) Sodium Level 137 mmol/L (136-145) Potassium Level 4.2 mmol/L (3.5-5.1) Chloride Level 102 mmol/L (98-107) Carbon Dioxide Level 27 mmol/L (21-32) Anion Gap 8 (6-14) Blood Urea Nitrogen 23 mg/dL (8-26) Creatinine 1.5 mg/dL (0.7-1.3) Estimated GFR (Cockcroft-Gault) 45.5 Glucose Level 169 mg/dL (70-99) Calcium Level 8.3 mg/dL (8.5-10.1) Phosphorus Level 2.2 mg/dL (2.6-4.7) Albumin 1.6 g/dL (3.4-5.0) Test 05/26/18 08:08 05/26/18 11:44 05/26/18 17:25 05/26/18 21:24 Glucose (Fingerstick) 163 mg/dL (70-99) 159 mg/dL (70-99) 193 mg/dL (70-99) 165 mg/dL (70-99) Test 05/27/18 04:35 05/27/18 07:56 White Blood Count 12.2 x10^3/uL (4.0-11.0) Red Blood Count 2.94 x10^6/uL (4.30-5.70) Hemoglobin 7.9 g/dL (13.0-17.5) Hematocrit 25.1 % (39.0-53.0) Mean Corpuscular Volume 85 fL (79-100) Mean Corpuscular Hemoglobin 27 pg (25-35) Mean Corpuscular Hemoglobin Concent 32 g/dL (31-37) Red Cell Distribution Width 16.4 % (11.5-14.5) Platelet Count 255 x10^3/uL (140-400) Neutrophils (%) (Auto) 82 % (31-73) Lymphocytes (%) (Auto) 6 % (24-48) Monocytes (%) (Auto) 10 % (0-9) Eosinophils (%) (Auto) 2 % (0-3) Basophils (%) (Auto) 0 % (0-3) Neutrophils # (Auto) 10.0 x10^3uL (1.8-7.7) Lymphocytes # (Auto) 0.7 x10^3/uL (1.0-4.8) Monocytes # (Auto) 1.2 x10^3/uL (0.0-1.1) Eosinophils # (Auto) 0.2 x10^3/uL (0.0-0.7) Basophils # (Auto) 0.0 x10^3/uL (0.0-0.2) Prothrombin Time 18.1 SEC (11.7-14.0) Prothromb Time International Ratio 1.5 (0.8-1.1) Sodium Level 135 mmol/L (136-145) Potassium Level 4.4 mmol/L (3.5-5.1) Chloride Level 101 mmol/L (98-107) Carbon Dioxide Level 26 mmol/L (21-32) Anion Gap 8 (6-14) Blood Urea Nitrogen 20 mg/dL (8-26) Creatinine 1.5 mg/dL (0.7-1.3) Estimated GFR (Cockcroft-Gault) 45.5 Glucose Level 135 mg/dL (70-99) Calcium Level 8.1 mg/dL (8.5-10.1) Glucose (Fingerstick) 103 mg/dL (70-99) Laboratory Tests Test 05/26/18 11:44 05/26/18 17:25 05/26/18 21:24 05/27/18 04:35 Glucose (Fingerstick) 159 mg/dL (70-99) 193 mg/dL (70-99) 165 mg/dL (70-99) White Blood Count 12.2 x10^3/uL (4.0-11.0) Red Blood Count 2.94 x10^6/uL (4.30-5.70) Hemoglobin 7.9 g/dL (13.0-17.5) Hematocrit 25.1 % (39.0-53.0) Mean Corpuscular Volume 85 fL (79-100) Mean Corpuscular Hemoglobin 27 pg (25-35) Mean Corpuscular Hemoglobin Concent 32 g/dL (31-37) Red Cell Distribution Width 16.4 % (11.5-14.5) Platelet Count 255 x10^3/uL (140-400) Neutrophils (%) (Auto) 82 % (31-73) Lymphocytes (%) (Auto) 6 % (24-48) Monocytes (%) (Auto) 10 % (0-9) Eosinophils (%) (Auto) 2 % (0-3) Basophils (%) (Auto) 0 % (0-3) Neutrophils # (Auto) 10.0 x10^3uL (1.8-7.7) Lymphocytes # (Auto) 0.7 x10^3/uL (1.0-4.8) Monocytes # (Auto) 1.2 x10^3/uL (0.0-1.1) Eosinophils # (Auto) 0.2 x10^3/uL (0.0-0.7) Basophils # (Auto) 0.0 x10^3/uL (0.0-0.2) Prothrombin Time 18.1 SEC (11.7-14.0) Prothromb Time International Ratio 1.5 (0.8-1.1) Sodium Level 135 mmol/L (136-145) Potassium Level 4.4 mmol/L (3.5-5.1) Chloride Level 101 mmol/L (98-107) Carbon Dioxide Level 26 mmol/L (21-32) Anion Gap 8 (6-14) Blood Urea Nitrogen 20 mg/dL (8-26) Creatinine 1.5 mg/dL (0.7-1.3) Estimated GFR (Cockcroft-Gault) 45.5 Glucose Level 135 mg/dL (70-99) Calcium Level 8.1 mg/dL (8.5-10.1) Test 05/27/18 07:56 Glucose (Fingerstick) 103 mg/dL (70-99) Microbiology 05/24/18 Blood Culture - Preliminary, Resulted NO GROWTH AFTER 2 DAYS 05/19/18 Urine Culture - Final, Complete 05/19/18 Urine Culture Result 1 (FELICITA) - Final, Complete 05/19/18 Anaerobic/Aerobic Culture - Final, Complete 05/19/18 Anaerobic Culture Result 1 (FELICITA) - Final, Complete 05/19/18 Aerobic Culture - Final, Complete 05/19/18 Aerobic Culture Result 1 (FELICITA) - Final, Complete 05/19/18 Aerobic Culture Result 2 (FELICITA) - Final, Complete 05/19/18 Antimicrobic Susceptibility - Final, Complete 05/19/18 Gram Stain - Final, Complete 05/19/18 Gram Stain Result 1 (FELICITA) - Final, Complete 05/19/18 Gram Stain Result 2 (FELICITA) - Final, Complete Medications Current Medications Sodium Chloride 1,000 ml @ 2,190 mls/hr Q28M IV Last administered on at 14:36; Start 05/18/18 at 12:52; Stop 05/18/18 at 13:52; Status DC Piperacillin Sod/ Tazobactam Sod 4.5 gm/Sodium Chloride 100 ml @ 200 mls/hr 1X ONCE IV Last administered on 05/18/18at 14:34; Start 05/18/18 at 13:00; Stop 05/18/18 at 13:29; Status DC Vancomycin HCl (Vanco Per Pharmacy) 1 each 1X ONCE MC Last administered on 01/24at 13:00; Start 05/18/18 at 13:00; Stop 05/18/18 at 13:11; Status DC Vancomycin HCl 2 gm/Sodium Chloride 500 ml @ 250 mls/hr 1X ONCE IV Last administered on 05/18/18at 15:28; Start 05/18/18 at 13:15; Stop 05/18/18 at 15:14 ; Status DC Ondansetron HCl (Zofran) 4 mg PRN Q8HRS PRN IV NAUSEA/VOMITING; Start 05/18/18 at 14:45; Stop 05/18/18 at 15:28; Status DC Fentanyl Citrate (Fentanyl 2ml Vial) 50 mcg PRN Q1HR PRN IV PAIN; Start at 14:45; Stop 05/19/18 at 11:50; Status DC Sodium Chloride 1,000 ml @ 80 mls/hr [id number] IV ; Start 05/18/18 at 14:43; Stop 05/18/18 at 18:42; Status DC Acetaminophen (Tylenol) 650 mg 1X ONCE PO Last administered on 05/18/18at 15:29 ; Start 05/18/18 at 15:30; Stop 05/18/18 at 15:31; Status DC Ondansetron HCl (Zofran) 4 mg PRN Q6HRS PRN IV NAUSEA/VOMITING Last administered on 05/24/18at 06:14; Start 05/18/18 at 15:30 Diltiazem HCl (Cardizem Iv Push) 10 mg 1X ONCE IVP ; Start 05/18/18 at 15:30; Stop 05/18/18 at 15:31; Status DC Acetaminophen (Tylenol) 500 mg PRN Q6HRS PRN PO MILD PAIN / TEMP; Start at 15:30; Stop 05/18/18 at 16:14; Status DC Acetaminophen/ Codeine Phosphate (Tylenol #3) 1 tab PRN Q6HRS PRN PO MODERATE PAIN Last administered on 05/26/18 21:56; Start 05/18/18 at 15:30 Morphine Sulfate (Morphine Sulfate) 2 mg PRN Q2HR PRN IV PAIN Last administered on 05/27/18 05:11; Start 05/18/18 at 15:30 Oxycodone/ Acetaminophen (Percocet 5/325) 1 tab PRN Q4HRS PRN PO SEVERE PAIN Last administered on 05/26/18 14:54; Start 05/18/18 at 15:30 Albuterol Sulfate (Ventolin Hfa) 2 puff PRN Q6HRS PRN IH SHORTNESS OF BREATH; Start 05/18/18 at 15:30; Status UNV Digoxin (Lanoxin) 125 mcg DAILY PO ; Start 05/19/18 at 09:00; Stop 05/19/18 at 09:00; Status DC Furosemide (Lasix) 40 mg DAILY PO Last administered on 05/25/18 09:04; Start 05/19/18 at 09:00 Gabapentin (Neurontin) 300 mg DAILY PO Last administered on 05/26/18 09:15; Start 05/19/18 at 09:00 Lisinopril (Prinivil) 20 mg DAILY PO Last administered on 05/19/18 10:14; Start 05/19/18 at 09:00; Stop 05/24/18 at 15:20; Status DC Metoprolol Tartrate (Lopressor) 50 mg BID PO Last administered on 05/26/18 20: 39; Start 05/18/18 at 21:00 Oxycodone/ Acetaminophen (Percocet 10/325) 1 tab PRN Q6HRS PRN PO SEVERE PAIN ( 2ND Choice) Last administered on 05/26/18at 12:46; Start 05/18/18 at 15:30 Oxycodone/ Acetaminophen (Percocet 5/325) 1 tab PRN Q4HRS PRN PO PAIN; Start at 15:30; Status UNV Acetaminophen (Tylenol) 500 mg PRN Q6HRS PRN PO MILD PAIN / TEMP Last administered on 05/27/18 02:20; Start 05/18/18 at 16:15 Atorvastatin Calcium (Lipitor) 80 mg QHS PO Last administered on 05/26/18 20: 38; Start 05/18/18 at 21:00 Hydralazine HCl (Apresoline) 10 mg TID PO Last administered on 05/26/18 20:39 ; Start 05/18/18 at 16:00 Insulin Human Lispro (HumaLOG) 10 units DAILYWBKFT SQ Last administered on 05/23 08:58; Start 05/18/18 at 17:00; Stop 05/23/18 at 14:25; Status DC Levetiracetam (Keppra) 1,250 mg BID PO Last administered on 05/26/18 20:39; Start 05/18/18 at 21:00 Metformin HCl (Glucophage) 1,000 mg BIDWMEALS PO Last administered on 17:49; Start 05/18/18 at 17:00 Multivitamins (Thera M Plus) 1 tab DAILY PO Last administered on 05/26/18 09: 14; Start 05/19/18 at 09:00 Potassium Chloride (Klor-Con) 20 meq DAILYWBKFT PO Last administered on 09:15; Start 05/19/18 at 08:00 Risperidone (RisperDAL) 1 mg QHS PO Last administered on 05/26/18 20:38; Start 05/18/18 at 21:00 Non-Formulary Medication (Rosuvastatin Calcium (Crestor)) 40 mg DAILY PO ; Start 05/19/18 at 09:00; Status UNV Zonisamide (Zonegran) 400 mg DAILY PO Last administered on 05/26/18 09:14; Start 05/19/18 at 09:00 Albuterol/ Ipratropium (Duoneb) 3 ml Q4HRS W/A NEB Last administered on 08:23; Start 05/18/18 at 18:00 Insulin Human Lispro (HumaLOG) 0-9 UNITS TIDWMEALS SQ Last administered on 05/26 18:04; Start 05/18/18 at 17:00 Dextrose (Dextrose 50%-Water Syringe) 12.5 gm PRN Q15MIN PRN IV SEE COMMENTS Last administered on 05/25/18at 06:04; Start 05/18/18 at 15:30 Albuterol Sulfate (Ventolin Neb Soln) 2.5 mg PRN Q6HRS PRN NEB SHORTNESS OF BREATH Last administered on 05/26/18at 08:35; Start 05/18/18 at 15:45 Piperacillin Sod/ Tazobactam Sod 3.375 gm/Sodium Chloride 50 ml @ 100 mls/hr Q6HRS IV Last administered on 05/24/18at 05:33; Start 05/18/18 at 18:00; Stop at 08:09; Status DC Potassium Chloride (Klor-Con) 40 meq 1X ONCE PO Last administered on at 10:14; Start 05/19/18 at 08:30; Stop 05/19/18 at 08:31; Status DC Heparin Sodium (Porcine) (Heparin Sodium) 5,000 unit Q8HRS SQ ; Start 05/19/18 at 14:00; Stop 05/19/18 at 14:00; Status DC Furosemide (Lasix) 40 mg 1X ONCE IVP Last administered on 05/19/18at 10:12; Start 05/19/18 at 08:45; Stop 05/19/18 at 08:46; Status DC Phytonadione (Vitamin K Ampule) 10 mg 1X ONCE SQ Last administered on at 10:16; Start 05/19/18 at 10:00; Stop 05/19/18 at 10:01; Status DC Vancomycin HCl (Vanco Per Pharmacy) 1 each PRN DAILY PRN MC SEE COMMENTS Last administered on 05/19/18at 10:32; Start 05/19/18 at 10:00; Stop 05/20/18 at 10:42 ; Status DC Phytonadione (Vitamin K Ampule) 10 mg 1X ONCE SQ ; Start 05/19/18 at 10:15; Stop 05/19/18 at 10:16; Status UNV Vancomycin HCl 1.75 gm/Sodium Chloride 500 ml @ 250 mls/hr Q24H IV Last administered on 05/19/18at 16:59; Start 05/19/18 at 16:00; Stop 05/20/18 at 10:42 ; Status DC Vancomycin HCl (Vancomycin Trough Level) 1 each 1X ONCE MC ; Start 05/20/18 at 16:30; Stop 05/20/18 at 16:30; Status DC Acetaminophen (Tylenol Supp) 650 mg PRN Q6HRS PRN [place] MILD PAIN / TEMP Last administered on 05/23/18at 23:33; Start 05/20/18 at 01:15 Sodium Chloride 500 ml @ 333 mls/hr 1X ONCE IV Last administered on at 01:14; Start 05/20/18 at 01:15; Stop 05/20/18 at 02:45; Status DC Phytonadione 5 mg/ Dextrose 50.5 ml @ 101 mls/hr 1X ONCE IV Last administered on 05/20/18at 10:08; Start 05/20/18 at 10:30; Stop 05/20/18 at 10:59 ; Status DC Daptomycin 590 mg/ Sodium Chloride 50 ml @ 100 mls/hr Q24H IV Last administered on 05/26/18at 12:41; Start 05/20/18 at 12:00 Ondansetron HCl (Zofran) 4 mg PRN Q6HRS PRN IV NAUSEA/VOMITING; Start 05/21/18 at 09:45; Stop 05/22/18 at 09:44; Status DC Fentanyl Citrate (Fentanyl 2ml Vial) 25 mcg PRN Q5MIN PRN IV MILD PAIN; Start 05/21/18 at 09:45; Stop 05/22/18 at 09:44; Status DC Fentanyl Citrate (Fentanyl 2ml Vial) 50 mcg PRN Q5MIN PRN IV MODERATE TO SEVERE PAIN; Start 05/21/18 at 09:45; Stop 05/22/18 at 09:44; Status DC Morphine Sulfate (Morphine Sulfate) 1 mg PRN Q10MIN PRN IV SEVERE PAIN; Start 05/21/18 at 09:45; Stop 05/22/18 at 09:44; Status DC Ringer's Solution 1,000 ml @ 30 mls/hr Q24H IV ; Start 05/21/18 at 09:39; Stop 05/22/18 at 00:37; Status DC Lidocaine HCl (Xylocaine-Mpf 1% 2ml Vial) 2 ml 1X PRN PRN ID IV START; Start at 09:45; Stop 05/22/18 at 09:44; Status DC Hydromorphone HCl (Dilaudid) 0.5 mg PRN Q10MIN PRN IV SEV PAIN, Second choice; Start 05/21/18 at 09:45; Stop 05/22/18 at 09:44; Status DC Prochlorperazine Edisylate (Compazine) 5 mg PACU PRN PRN IV NAUSEA, MRX1; Start 05/21/18 at 09:45; Stop 05/22/18 at 09:44; Status DC Lidocaine HCl (Glydo (Lidocaine) Jelly) 1 vianney 1X ONCE MM ; Start 05/21/18 at 12 :30; Stop 05/21/18 at 12:31; Status DC Propofol 20 ml @ As Directed STK-MED ONCE IV ; Start 05/21/18 at 12:27; Stop at 12:28; Status DC Dexamethasone Sodium Phosphate (Decadron) 20 mg STK-MED ONCE .ROUTE ; Start at 12:27; Stop 05/21/18 at 12:28; Status DC Famotidine (Pepcid Vial) 20 mg STK-MED ONCE .ROUTE ; Start 05/21/18 at 12:27; Stop 05/21/18 at 12:28; Status DC Lidocaine HCl (Lidocaine Pf 2% Vial) 5 ml STK-MED ONCE .ROUTE ; Start 05/21/18 at 12:27; Stop 05/21/18 at 12:28; Status DC Ondansetron HCl (Zofran) 4 mg STK-MED ONCE .ROUTE ; Start 05/21/18 at 12:27; Stop 05/21/18 at 12:28; Status DC Fentanyl Citrate (Fentanyl 2ml Vial) 100 mcg STK-MED ONCE .ROUTE ; Start at 12:27; Stop 05/21/18 at 12:28; Status DC Bacitracin 91931 unit/Sodium Chloride 500 ml @ 500 mls/hr 1X ONCE IRR ; Start 05/21/18 at 12:40; Stop 05/21/18 at 13:39; Status DC Cefazolin Sodium 1 gm/Sodium Chloride 500 ml @ 500 mls/hr 1X ONCE IRR ; Start 05/21/18 at 12:40; Stop 05/21/18 at 13:39; Status DC Lidocaine HCl 20 ml STK-MED ONCE .ROUTE ; Start 05/21/18 at 11:42; Stop at 12:42; Status DC Esmolol HCl (Brevibloc) 100 mg STK-MED ONCE IVP ; Start 05/21/18 at 13:01; Stop 05/21/18 at 13:02; Status DC Esmolol HCl (Brevibloc) 100 mg STK-MED ONCE IVP ; Start 05/21/18 at 14:22; Stop 05/21/18 at 14:23; Status DC Neomycin/ Polymyxin/ Bacitracin (Triple Antibiotic Ointment) 1 pkt STK-MED ONCE TP Last administered on 05/21/18at 14:41; Start 05/21/18 at 13:38; Stop at 14:38; Status DC Sevoflurane (Ultane) 90 ml STK-MED ONCE IH ; Start 05/21/18 at 14:40; Stop 05/21 at 14:41; Status DC Naloxone HCl (Narcan) 0.4 mg PRN Q2MIN PRN IV SEE INSTRUCTIONS; Start 05/21/18 at 15:00 Sodium Chloride 1,000 ml @ 25 mls/hr Q24H IV ; Start 05/21/18 at 14:57; Stop at 07:00; Status DC Morphine Sulfate 30 ml @ 0 mls/hr CONT PRN PRN IV PER PROTOCOL; Start 05/21/18 at 15:00 Labetalol HCl (Normodyne Iv Push) 20 mg PRN Q2HR PRN IVP HYPERTENSION, SEE COMMENTS Last administered on 05/24/18at 00:15; Start 05/21/18 at 15:30 Labetalol HCl (Normodyne Iv Push) 5 mg 1X PACU PRN IVP tachycardia and HTN Last administered on 05/21/18at 15:30; Start 05/21/18 at 15:30; Stop 05/22/18 at 09:09; Status DC Insulin Glargine (Lantus) 3 units 1X ONCE SQ Last administered on 05/21/18at 22 :00; Start 05/21/18 at 22:00; Stop 05/22/18 at 01:31; Status DC Aspirin (Ecotrin) 81 mg [id number] PO Last administered on 05/26/18at 09:14; Start 05/23/18 at 08:00 Digoxin (Lanoxin) 250 mcg 1X ONCE IV Last administered on 05/22/18at 12:28; Start 05/22/18 at 12:30; Stop 05/22/18 at 12:31; Status DC Warfarin Sodium (Coumadin) 6 mg DAILY16 PO ; Start 05/22/18 at 16:00; Stop 05/22 at 16:00; Status DC Warfarin Sodium (Coumadin) 2.5 mg 3X/WEEK PO ; Start 05/23/18 at 09:00; Status UNV Warfarin Sodium (Coumadin Per Physician) 1 each PRN DAILY PRN MC SEE COMMENTS; Start 05/22/18 at 14:45; Stop 05/22/18 at 14:57; Status DC Warfarin Sodium (Coumadin Per Pharmacy) 1 each PRN DAILY PRN MC SEE COMMENTS Last administered on 05/25/18at 14:01; Start 05/22/18 at 15:00 Warfarin Sodium (Coumadin) 4 mg 1X WARF ONCE PO Last administered on at 16:19; Start 05/22/18 at 16:00; Stop 05/22/18 at 16:01; Status DC Warfarin Sodium (Coumadin) 4 mg 1X WARF ONCE PO ; Start 05/23/18 at 16:00; Stop 05/23/18 at 16:01; Status DC Ringer's Solution 1,000 ml @ 75 mls/hr [id number] IV ; Start 05/23/18 at 13:45; Status Cancel Ringer's Solution 1,000 ml @ 75 mls/hr [id number] IV Last administered on at 00:43; Start 05/23/18 at 14:00 Insulin Human Lispro (HumaLOG) 7 units DAILYWBKFT SQ ; Start 05/24/18 at 08:00; Stop 05/25/18 at 12:44; Status DC Dextrose (Dextrose 50%-Water Syringe) 25 gm 1X ONCE IV Last administered on at 13:15; Start 05/23/18 at 17:45; Stop 05/23/18 at 17:46; Status DC Meropenem 500 mg/ Sodium Chloride 50 ml @ 100 mls/hr Q6HRS IV Last administered on 05/27/18at 05:11; Start 05/24/18 at 12:00 Warfarin Sodium (Coumadin) 6 mg 1X WARF ONCE PO Last administered on at 15:33; Start 05/24/18 at 16:00; Stop 05/24/18 at 16:01; Status DC Insulin Human Lispro (HumaLOG) 3 units [id number] SQ ; Start 05/26/18 at 08:00 Warfarin Sodium (Coumadin) 6 mg 1X WARF ONCE PO Last administered on at 16:04; Start 05/25/18 at 16:00; Stop 05/25/18 at 16:01; Status DC Polyethylene Glycol (miraLAX PACKET) 17 gm DAILY PO Last administered on at 14:54; Start 05/26/18 at 14:00 Active Scripts Active Digoxin 125 Mcg Tablet 125 Mcg PO DAILY Furosemide 40 Mg Tablet 40 Mg PO DAILY Metoprolol Tartrate 50 Mg Tablet 50 Mg PO BID [Warfarin Sodium] 1 EACH Each 1 Each MC PRN DAILY PRN Lisinopril 20 Mg Tablet 20 Mg PO DAILY Duoneb 0.5-3(2.5) Mg/3 Ml (Albuterol/Ipratropium) 3 Ml Ampul.neb 3 Ml NEB Q4HRS W/A 30 Days Hydralazine Hcl 10 Mg Tablet 10 Mg PO TID Reported Zonisamide 100 Mg Capsule 400 Mg PO DAILY Percocet 5-325 Mg Tablet (Oxycodone/Acetaminophen) 1 Each Tablet 1 Tab PO PRN Q4HRS PRN Multivitamins (Multivitamin) 1 Each Tablet 1 Tab PO DAILY Levetiracetam 250 Mg Tablet 1,250 Mg PO BID Novolin N (Nph, Human Insulin Isophane) 100 Unit/1 Ml Vial Unknown Dose SQ Atorvastatin Calcium 80 Mg Tablet 1 Tab PO DAILY Acetaminophen 500 Mg Tablet 1 Tab PO PRN Q6HRS PRN Albuterol Sulfate Hfa Inhaler (Albuterol Sulfate) 8.5 Gm Hfa.aer.ad 2 Puff IH PRN Q6HRS PRN Aspirin Ec (Aspirin) 325 Mg Tablet.dr 81 Mg PO DAILY Crestor (Rosuvastatin Calcium) 40 Mg Tablet 40 Mg PO DAILY Warfarin Sodium 5 Mg Tablet 6 Mg PO DAILY Warfarin Sodium 2.5 Mg Tablet 2.5 Mg PO 3X/WEEK monday,monday, Gabapentin (Gabapentin) 300 Mg Capsule 300 Mg PO DAILY Risperidone 1 Mg Tablet 1 Mg PO HS Novolog (Insulin Aspart) 100 Unit/1 Ml Vial 10 Unit SQ DAILYAC Oxycodone-Acetaminophen 10-325 (Oxycodone Hcl/Acetaminophen) 1 Each Tablet 1 Each PO PRN Q6HRS Potassium 99 Mg Tablet 20 Meq PO DAILY Prednisone (Prednisone) 10 Mg Tablet 10 Mg PO DAILY Metformin Hcl 500 Mg Tablet 1,000 Mg PO BIDBFRMEAL Vitals/I & O Vital Sign - Last 24 Hours 05/26/18 05/26/18 05/26/18 05/26/18 11:00 12:56 14:54 15:00 Temp 98.5 100.2 98.5 100.2 Pulse 69 69 74 Resp 12 16 B/P (MAP) 124/33 (63) 124/33 99/42 (61) Pulse Ox 93 95 O2 Delivery Room Air Nasal Cannula Room Air O2 Flow Rate 2.0 05/26/18 05/26/18 05/26/18 05/26/18 16:16 18:10 19:25 19:30 Temp 98.8 102.0 98.8 102.0 Pulse 94 80 Resp 20 B/P (MAP) 113/67 (82) 125/40 (68) Pulse Ox 93 O2 Delivery Nasal Cannula Nasal Cannula Nasal Cannula O2 Flow Rate 2.0 2.0 05/26/18 05/26/18 05/26/18 05/26/18 20:00 20:15 20:39 20:39 Pulse 94 94 B/P (MAP) 113/67 113/67 Pulse Ox 93 O2 Delivery Nasal Cannula Nasal Cannula O2 Flow Rate 2.0 3.0 05/26/18 05/26/18 05/26/18 05/27/18 21:56 23:00 23:30 02:20 Temp 101.2 101.2 Pulse 93 Resp 20 B/P (MAP) 135/69 (91) Pulse Ox 93 94 94 96 O2 Delivery Nasal Cannula Nasal Cannula Nasal Cannula Nasal Cannula O2 Flow Rate 3.0 2.0 2.0 2.0 05/27/18 05/27/18 05/27/18 05/27/18 03:30 05:11 05:45 08:25 Temp 100.4 100.4 Pulse 63 Resp 20 B/P (MAP) 126/78 (94) Pulse Ox 96 96 96 94 O2 Delivery Nasal Cannula Nasal Cannula Nasal Cannula Nasal Cannula O2 Flow Rate 2.0 2.0 2.0 3.0 Intake and Output 05/26/18 05/26/18 05/27/18 14:59 22:59 06:59 Intake Total 237 ml 500 ml 950 ml Output Total 600 ml 850 ml Balance 237 ml -100 ml 100 ml Nutrition Consultation Dietary Evaluation: Recommendations by RD: Increase Calorie Intake, Protein supplementation Comments: REC continue ADA/cardiac diet, can liberalize as needed to provide foods that pt likes REC Glucerna TID (chocolate) Continue MVI REC Vit C (500 mg BID) Expected Outcomes/Goals: PO intake to meet >75% est needs - not met, goal ongoing Malnutrition Findings: Food and Nutrition Intake (Mod: <75% est energy req 7days Weight Status: Appropriate KEV HATCH MD May 27, 2018 09:18
[2018-05-27] MEDS: metFORMIN 500 MG TABLET PO SCH ×2 (09:47→17:56)
[2018-05-27] MEDS: ZONISAMIDE 100 MG CAPSULE. PO SCH (09:47)
[2018-05-27] MEDS: oxyCODONE/APAP 10/325 1 TAB TABLET PO PRN ×2 (09:48→23:35)
[2018-05-27] MEDS: GABAPENTIN 300 MG CAPSULE. PO SCH (09:48)
[2018-05-27] MEDS: MULTIVITAMIN with MINERAL TABLET. PO SCH (09:48)
[2018-05-27] MEDS: ASPIRIN ENTERIC COATED 81 MG TABLET.DR. PO SCH (09:48)
[2018-05-27] MEDS: POTASSIUM CHLORIDE 20 MEQ TABLET.ER. PO SCH (09:48)
[2018-05-27 10:19] LABS: ALBUMIN 1.6 g/dL (3.4-5.0); DIRECT BILIRUBIN 0.3 mg/dL (0.0-0.2); TOTAL BILIRUBIN 0.4 mg/dL (0.2-1.0); TOTAL PROTEIN 5.2 g/dL (6.4-8.2)
[2018-05-27 11:00] VITALS: BP 111/36
--- NOTE | 2018-05-27 11:20 | RAD ---
CHEST AP ONLY Clinical History: FEVER Technique: AP view of the chest was obtained at 05/27/2018 10:09 AM. Comparison: May 18, 2018. Findings: The heart is top normal limits in size. The pulmonary vessels appear normal. Median sternotomy wires are again seen. Prominent superior mediastinum is likely ectatic vasculature was seen previously. Impression: Stable appearance of the chest. Electronically signed by: Tab Flanagan III, MD (05/27/2018 11:18 AM) [id number]
--- NOTE | 2018-05-27 11:31 | NUR ---
Pharmacy Warfarin Dosing Note S:Pharmacy consulted to assist with anticoagulation therapy started with target INR: 2 -3 O:VICKI BRAUN is a 78 year old M with Atrial Fibrillation LABS: Last INR: 1.5 Last HGB: 8.3 Last HCT: 26.2 Last PLT: 194 Last dose of 6 mg given on 05/24/18 at 1533 Previous Regimen: 4mg/day except 2 mg Sat/Sun Vitamin K given: Y 05/19: 10 MG SUB-Q, 05/20: 5 MG IV Drug Interaction Changes: New Interacting Drug Ongoing Drug Interactions: Zosyn A:INR of 1.5 is below desired range. Target range for this patient is: 2 -3 P: Warfarin dose: 7.5 mg Today at 1600 Bridge Therapy: None Next INR due IN AM Pharmacy anticoagulation service will continue to follow. GAIL GEORGES [facility] [place], 05/27/18 0145
--- NOTE | 2018-05-27 11:42 | PDOC ---
Infectious Disease Note Subjective Subjective More alert this morning Doing ok Low-grade fevers Denies pain/chills/SOA/upset stomach ROS ROS o/w neg Vital Sign Vital Signs Vital Signs Date Time Temp Pulse Resp B/P (MAP) Pulse Ox O2 Delivery O2 Flow Rate FiO2 05/27/18 09:48 18 Nasal Cannula 05/27/18 09:00 60 115/41 05/27/18 08:25 94 3.0 05/27/18 07:00 97.5 97.5 Physical Exam PHYSICAL EXAM Propped up in bed, alert, HEENT: Pupils equally round, reactive. Normal conjunctivae. Oral cavity, pharynx pink, dry NECK: Supple. LUNGS: Clear anteriorly HEART: S1 and S2, soft murmur. Irregular. ABDOMEN: Obese, soft and Mild tender with bowel sounds present. GENITOURINARY: Indwelling Crawley in place. 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 Left foot bandaged. SKIN: Warm without rash. No peripheral stigmata. Several tattoos. NEUROLOGIC: Alert, coop Labs Lab Laboratory Tests Test 05/26/18 11:44 05/26/18 17:25 05/26/18 21:24 05/27/18 04:35 Glucose (Fingerstick) 159 mg/dL (70-99) 193 mg/dL (70-99) 165 mg/dL (70-99) White Blood Count 12.2 x10^3/uL (4.0-11.0) Red Blood Count 2.94 x10^6/uL (4.30-5.70) Hemoglobin 7.9 g/dL (13.0-17.5) Hematocrit 25.1 % (39.0-53.0) Mean Corpuscular Volume 85 fL (79-100) Mean Corpuscular Hemoglobin 27 pg (25-35) Mean Corpuscular Hemoglobin Concent 32 g/dL (31-37) Red Cell Distribution Width 16.4 % (11.5-14.5) Platelet Count 255 x10^3/uL (140-400) Neutrophils (%) (Auto) 82 % (31-73) Lymphocytes (%) (Auto) 6 % (24-48) Monocytes (%) (Auto) 10 % (0-9) Eosinophils (%) (Auto) 2 % (0-3) Basophils (%) (Auto) 0 % (0-3) Neutrophils # (Auto) 10.0 x10^3uL (1.8-7.7) Lymphocytes # (Auto) 0.7 x10^3/uL (1.0-4.8) Monocytes # (Auto) 1.2 x10^3/uL (0.0-1.1) Eosinophils # (Auto) 0.2 x10^3/uL (0.0-0.7) Basophils # (Auto) 0.0 x10^3/uL (0.0-0.2) Prothrombin Time 18.1 SEC (11.7-14.0) Prothromb Time International Ratio 1.5 (0.8-1.1) Sodium Level 135 mmol/L (136-145) Potassium Level 4.4 mmol/L (3.5-5.1) Chloride Level 101 mmol/L (98-107) Carbon Dioxide Level 26 mmol/L (21-32) Anion Gap 8 (6-14) Blood Urea Nitrogen 20 mg/dL (8-26) Creatinine 1.5 mg/dL (0.7-1.3) Estimated GFR (Cockcroft-Gault) 45.5 Glucose Level 135 mg/dL (70-99) Calcium Level 8.1 mg/dL (8.5-10.1) Total Bilirubin 0.4 mg/dL (0.2-1.0) Direct Bilirubin 0.3 mg/dL (0.0-0.2) Aspartate Amino Transf (AST/SGOT) 50 U/L (15-37) Alanine Aminotransferase (ALT/SGPT) 25 U/L (16-63) Alkaline Phosphatase 80 U/L (46-116) Total Protein 5.2 g/dL (6.4-8.2) Albumin 1.6 g/dL (3.4-5.0) Test 05/27/18 07:56 Glucose (Fingerstick) 103 mg/dL (70-99) Micro Microbiology 05/24/18 Blood Culture - Preliminary, Resulted NO GROWTH AFTER 2 DAYS 05/19/18 Urine Culture - Final, Complete 05/19/18 Urine Culture Result 1 (FELICITA) - Final, Complete 05/19/18 Anaerobic/Aerobic Culture - Final, Complete 05/19/18 Anaerobic Culture Result 1 (FELICITA) - Final, Complete 05/19/18 Aerobic Culture - Final, Complete 05/19/18 Aerobic Culture Result 1 (FELICITA) - Final, Complete 05/19/18 Aerobic Culture Result 2 (FELICITA) - Final, Complete 05/19/18 Antimicrobic Susceptibility - Final, Complete 05/19/18 Gram Stain - Final, Complete 05/19/18 Gram Stain Result 1 (FELICITA) - Final, Complete 05/19/18 Gram Stain Result 2 (FELICITA) - Final, Complete Objective Assessment Fevers. repeat UA and BC from 05/24 neg so far Constipation MRSA bacteremia (4 of 4 bottles) with sepsis, POA source possible foot infection -CRYSTAL done no vegetations 05/21; BC from 05/20 & 05/21 neg Infected necrotic ulcer left ankle s/p I and D 05/21. 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 Severe PAD s/p BLE stents and previous toe amputations Bioprosthetic aortic valve Renal insufficiency/JIMMY Encephalopathy - improved Coagulopathy, on chronic warfarin A- fib RVR Diabetes Type II h/o PSA ( R quinolones & I imipenem) h/o group B strep bacteremia, 2016 Plan Plan of Care Add Lipase/Procalcitonin/TSH F/u U/S abd Add Micafungin Dapto (susceptibility testing pending) Merrem (05/24), was on zosyn off IV Vanc due to JIMMY Repeat BC, UA c/s from 05/24 NGTD Monitor labs and renal function closely Local wound care and offloading MACARIO PRIEST MD May 27, 2018 11:42
[2018-05-27] MEDS: DAPTOmycin (GENERIC) IVPB 590 MG in IV NORMAL SALINE 50ML 50 ML IV SCH (12:48)
[2018-05-27] MEDS: oxyCODONE/APAP 5/325 1 TAB TABLET PO PRN (12:49)
[2018-05-27] MEDS: MICAFUNGIN 100 MG in IV DEXTROSE 5% 100ML 100 ML IV SCH (12:50)
--- NOTE | 2018-05-27 13:13 | RAD ---
Clinical History: Gallbladder disease Technique: Sonographic examination of the right upper quadrant of the abdomen was performed and multiple static images were obtained. Comparison: none Findings: The majority of the liver is visualized and appears homogeneous. The common bile duct appears normal and measures 6 mm in diameter. The gallbladder is distended and there is sludge. The gallbladder wall measures 3.7 mm in thickness. There is no surrounding fluid or tenderness. The pancreas is not well visualized due to overlying bowel gas but appears within normal limits. The right kidney is seen without hydronephrosis and measures 11 cm in length. There are small cyst and the right kidney. Impression: The gallbladder is distended and there is sludge and mild wall thickening. Mild acute cholecystitis is possible. Electronically signed by: Tab Flanagan III, MD (05/27/2018 1:10 PM) [id number]
[2018-05-27 15:00] VITALS: BP 122/59
--- NOTE | 2018-05-27 15:30 | NUR ---
Dolan catheter removed at 924. Pt has not voided since removing catheter, bladder scan showed approx. 230mL retained. Notified Dr. Gonzales, orders received to wait 3 more hours and scan bladder again, if bladder scan shows >230mL, re-insert dolan catheter. Will continue to monitor.
[2018-05-27] MEDS ORDERED: WARFARIN 7.5 MG TABLET. PO ONE (16:00)
[2018-05-27 19:25] VITALS: BP 113/39
[2018-05-27] MEDS: risperiDONE 1 MG TABLET. PO SCH (21:32)
[2018-05-27] MEDS: ATORVASTATIN CALCIUM 40 MG TABLET. PO SCH (21:33)
[2018-05-27 23:10] VITALS: BP 123/54
[2018-05-28] MEDS: METOPROLOL TART IMMED RELEASE 50 MG TABLET. PO SCH ×3 (00:08→21:00)
[2018-05-28] MEDS: IV RINGERS,LACTATED 1000ML 1,000 ML IV SCH ×2 (00:40→13:23)
[2018-05-28 03:41] VITALS: BP 98/39
[2018-05-28] MEDS: MEROPENEM 500 MG in IV NORMAL SALINE 50ML 50 ML IV SCH ×4 (05:35→23:16)
[2018-05-28] MEDS: MORPHINE SULFATE 2 MG/ML VIAL. IV PRN ×2 (05:36→12:03)
[2018-05-28 07:45] VITALS: BP 107/59
[2018-05-28] MEDS: IPRATRPIUM/ALBUTEROL 0.5/2.5MG 3 ML NEBU. NEB SCH ×5 (07:58→22:00)
[2018-05-28] MEDS: POTASSIUM CHLORIDE 20 MEQ TABLET.ER. PO SCH (08:00)
[2018-05-28] MEDS: INSULIN LISPRO 300 UNITS/3 ML INSULN.PEN. SQ SCH ×4 (08:00→17:00)
[2018-05-28] MEDS: levETIRAcetam 250 MG TABLET PO SCH ×2 (08:45→21:00)
[2018-05-28] MEDS: ZONISAMIDE 100 MG CAPSULE. PO SCH (08:46)
[2018-05-28] MEDS: FUROSEMIDE 40 MG TABLET. PO SCH (08:47)
[2018-05-28] MEDS: ASPIRIN ENTERIC COATED 81 MG TABLET.DR. PO SCH (08:47)
[2018-05-28] MEDS: metFORMIN 500 MG TABLET PO SCH ×2 (08:48→17:33)
[2018-05-28] MEDS: MULTIVITAMIN with MINERAL TABLET. PO SCH (08:48)
[2018-05-28] MEDS: hydrALAZINE 10 MG TABLET PO SCH ×3 (08:49→21:00)
[2018-05-28] MEDS: POLYETHYLENE GLYCOL 3350 17 GM PACKET. PO SCH (08:49)
[2018-05-28] MEDS: GABAPENTIN 300 MG CAPSULE. PO SCH (08:50)
[2018-05-28 08:57] LABS: BASO % 0 % (0-3); EOS # 0.2 x10^3/uL (0.0-0.7); EOS % 2 % (0-3); HEMATOCRIT 24.1 % (39.0-53.0); HEMOGLOBIN 7.5 g/dL (13.0-17.5); LYMPH # 0.6 x10^3/uL (1.0-4.8); LYMPH % 5 % (24-48); MEAN CORPUSCULAR HEMOGLOBIN 26 pg (25-35); MEAN CORPUSCULAR HGB CONC 31 g/dL (31-37); MEAN CORPUSCULAR VOLUME 84 fL (79-100); MONO # 1.1 x10^3/uL (0.0-1.1); MONO % 10 % (0-9); NEUT # 9.4 x10^3uL (1.8-7.7); NEUT % 83 % (31-73); PLATELET COUNT 294 x10^3/uL (140-400); RED BLOOD COUNT 2.85 x10^6/uL (4.30-5.70); RED CELL DISTRIBUTION WIDTH 16.1 % (11.5-14.5); WHITE BLOOD COUNT 11.4 x10^3/uL (4.0-11.0)
[2018-05-28 09:06] LABS: PROTHROMBIN TIME PATIENT 21.1 SEC (11.7-14.0)
[2018-05-28 09:37] LABS: ALBUMIN 1.5 g/dL (3.4-5.0); ALBUMIN/GLOBULIN RATIO 0.3 (1.0-1.7); CALCIUM 8.2 mg/dL (8.5-10.1); CREATININE 1.4 mg/dL (0.7-1.3); GFR 49.3; POTASSIUM 4.5 mmol/L (3.5-5.1); TOTAL BILIRUBIN 0.5 mg/dL (0.2-1.0); TOTAL PROTEIN 6.2 g/dL (6.4-8.2)
--- NOTE | 2018-05-28 10:27 | PDOC ---
Infectious Disease Note Subjective Subjective More alert this morning Doing ok Low-grade fevers Denies pain/chills/SOA/upset stomach Vital Sign Vital Signs Vital Signs Date Time Temp Pulse Resp B/P (MAP) Pulse Ox O2 Delivery O2 Flow Rate FiO2 05/28/18 08:49 66 107/59 05/28/18 07:58 Nasal Cannula 3.0 05/28/18 07:45 98.6 22 96 98.6 Physical Exam PHYSICAL EXAM Propped up in bed, alert, HEENT: Pupils equally round, reactive. Normal conjunctivae. Oral cavity, pharynx pink, dry NECK: Supple. LUNGS: Clear anteriorly HEART: S1 and S2, soft murmur. Irregular. ABDOMEN: Obese, soft and Mild tender with bowel sounds present. GENITOURINARY: Indwelling Crawley in place. 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 Left foot bandaged. SKIN: Warm without rash. No peripheral stigmata. Several tattoos. NEUROLOGIC: Alert, coop Labs Lab Laboratory Tests Test 05/27/18 11:56 05/27/18 17:14 05/27/18 19:50 05/28/18 07:53 Glucose (Fingerstick) 132 mg/dL (70-99) 118 mg/dL (70-99) 104 mg/dL (70-99) 121 mg/dL (70-99) Test 05/28/18 08:15 White Blood Count 11.4 x10^3/uL (4.0-11.0) Red Blood Count 2.85 x10^6/uL (4.30-5.70) Hemoglobin 7.5 g/dL (13.0-17.5) Hematocrit 24.1 % (39.0-53.0) Mean Corpuscular Volume 84 fL (79-100) Mean Corpuscular Hemoglobin 26 pg (25-35) Mean Corpuscular Hemoglobin Concent 31 g/dL (31-37) Red Cell Distribution Width 16.1 % (11.5-14.5) Platelet Count 294 x10^3/uL (140-400) Neutrophils (%) (Auto) 83 % (31-73) Lymphocytes (%) (Auto) 5 % (24-48) Monocytes (%) (Auto) 10 % (0-9) Eosinophils (%) (Auto) 2 % (0-3) Basophils (%) (Auto) 0 % (0-3) Neutrophils # (Auto) 9.4 x10^3uL (1.8-7.7) Lymphocytes # (Auto) 0.6 x10^3/uL (1.0-4.8) Monocytes # (Auto) 1.1 x10^3/uL (0.0-1.1) Eosinophils # (Auto) 0.2 x10^3/uL (0.0-0.7) Basophils # (Auto) 0.0 x10^3/uL (0.0-0.2) Prothrombin Time 21.1 SEC (11.7-14.0) Prothromb Time International Ratio 1.9 (0.8-1.1) Sodium Level 138 mmol/L (136-145) Potassium Level 4.5 mmol/L (3.5-5.1) Chloride Level 104 mmol/L (98-107) Carbon Dioxide Level 25 mmol/L (21-32) Anion Gap 9 (6-14) Blood Urea Nitrogen 20 mg/dL (8-26) Creatinine 1.4 mg/dL (0.7-1.3) Estimated GFR (Cockcroft-Gault) 49.3 BUN/Creatinine Ratio 14 (6-20) Glucose Level 127 mg/dL (70-99) Calcium Level 8.2 mg/dL (8.5-10.1) Total Bilirubin 0.5 mg/dL (0.2-1.0) Aspartate Amino Transf (AST/SGOT) 72 U/L (15-37) Alanine Aminotransferase (ALT/SGPT) 27 U/L (16-63) Alkaline Phosphatase 89 U/L (46-116) Total Protein 6.2 g/dL (6.4-8.2) Albumin 1.5 g/dL (3.4-5.0) Albumin/Globulin Ratio 0.3 (1.0-1.7) Micro Microbiology 05/24/18 Blood Culture - Preliminary, Resulted NO GROWTH AFTER 2 DAYS 05/19/18 Urine Culture - Final, Complete 05/19/18 Urine Culture Result 1 (FELICITA) - Final, Complete 05/19/18 Anaerobic/Aerobic Culture - Final, Complete 05/19/18 Anaerobic Culture Result 1 (FELICITA) - Final, Complete 05/19/18 Aerobic Culture - Final, Complete 05/19/18 Aerobic Culture Result 1 (FELICITA) - Final, Complete 05/19/18 Aerobic Culture Result 2 (FELICITA) - Final, Complete 05/19/18 Antimicrobic Susceptibility - Final, Complete 05/19/18 Gram Stain - Final, Complete 05/19/18 Gram Stain Result 1 (FELICITA) - Final, Complete 05/19/18 Gram Stain Result 2 (FELICITA) - Final, Complete Objective Assessment Fevers better overall. repeat UA and BC from 05/24 neg so far Leukocytosis - better Constipation ? chlolecystisis MRSA bacteremia (4 of 4 bottles) with sepsis, POA source possible foot infection- Dapto sensitive -CRYSTAL done no vegetations 05/21; BC from 05/20 & 05/21 neg Infected necrotic ulcer left ankle s/p I and D 05/21. 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 Severe PAD s/p BLE stents and previous toe amputations Bioprosthetic aortic valve Renal insufficiency/JIMMY Encephalopathy - improved Coagulopathy, on chronic warfarin A- fib RVR Diabetes Type II h/o PSA ( R quinolones & I imipenem) h/o group B strep bacteremia, 2017 Plan Plan of Care Gen surg eval - D/w Dr. Frye who agrees GB maybe playing into this but he is a poor surgical candidate. His plan is to monitor but may need Cholecystostomy tube placement Cont Micafungin Dapto (susceptibility testing pending) Merrem (05/24), was on zosyn off IV Vanc due to JIMMY Repeat BC, UA c/s from 05/24 NGTD Monitor labs and renal function closely Local wound care and offloading D/w nursing MACARIO PRIEST MD May 28, 2018 10:27
[2018-05-28 10:54] VITALS: BP 143/56
--- NOTE | 2018-05-28 11:22 | PDOC2 ---
CONSULT Date of Consult Date of Consult DATE: 05/28/18 TIME: 11:15 Reason for Consult Reason for Consult: acalculous cholecystitis Referring Physician Referring Physician: Dr. Rivas Identification/Chief Complaint Chief Complaint none Source Source: Chart review History of Present Illness Reason for Visit: 78 yo M admitted with severe sepsis and LE ulcers. 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 Has been noted to have persistent issues with fevers and elevated WBC. Imaging c/w acalculous cholecystitis. Pt seen in hospital room. Pt denies complaint but is poor historian. Past Medical History Cardiovascular: AFIB, HTN, [place] Pulmonary: Asthma, Bronchitis, COPD, Pneumonia, Other CENTRAL NERVOUS SYSTEM: CVA, Periperal neuropathy GI: Other Heme/Onc: No pertinent hx Hepatobiliary: No pertinent hx Psych: Depression Musculoskeletal: Osteoarthritis Rheumatologic: No pertinent hx Infectious disease: No pertinent hx Renal/: Other Endocrine: Diabetes Past Surgical History Past Surgical History: Pacemaker, Appendectomy, CABG, Other Family History Family History: Coronary Artery Disease (mother and father) Social History No ALCOHOL: none Drugs: None Lives: with Family Current Problem List Problem List Problems Medical Problems: (1) Fever Status: Acute (2) Gangrene of toe Status: Acute (3) Leukocytosis Status: Acute (4) Severe sepsis Status: Acute Current Medications Current Medications Current Medications Sodium Chloride 1,000 ml @ 2,190 mls/hr Q28M IV Last administered on 05/18/18at 14:36; Start 05/18/18 at 12:52; Stop 05/18/18 at 13:52; Status DC Piperacillin Sod/ Tazobactam Sod 4.5 gm/Sodium Chloride 100 ml @ 200 mls/hr 1X ONCE IV Last administered on 05/18/18at 14:34; Start 05/18/18 at 13:00; Stop 05/18/18 at 13:29; Status DC Vancomycin HCl (Vanco Per Pharmacy) 1 each 1X ONCE MC Last administered on 05/18/18at 13:00; Start 05/18/18 at 13:00; Stop 05/18/18 at 13:11; Status DC Vancomycin HCl 2 gm/Sodium Chloride 500 ml @ 250 mls/hr 1X ONCE IV Last administered on 05/18/18at 15:28; Start 05/18/18 at 13:15; Stop 05/18/18 at 15:14; Status DC Ondansetron HCl (Zofran) 4 mg PRN Q8HRS PRN IV NAUSEA/VOMITING; Start 05/18/18 at 14:45; Stop 05/18/18 at 15:28; Status DC Fentanyl Citrate (Fentanyl 2ml Vial) 50 mcg PRN Q1HR PRN IV PAIN; Start 05/18/18 at 14:45; Stop 05/19/18 at 11:50; Status DC Sodium Chloride 1,000 ml @ 80 mls/hr [id number] IV ; Start 05/18/18 at 14:43; Stop 05/18/18 at 18:42; Status DC Acetaminophen (Tylenol) 650 mg 1X ONCE PO Last administered on 05/18/18at 15:29; Start 05/18/18 at 15:30; Stop 05/18/18 at 15:31; Status DC Ondansetron HCl (Zofran) 4 mg PRN Q6HRS PRN IV NAUSEA/VOMITING Last administered on 05/24/18at 06:14; Start 05/18/18 at 15:30 Diltiazem HCl (Cardizem Iv Push) 10 mg 1X ONCE IVP ; Start 05/18/18 at 15:30; Stop 05/18/18 at 15:31; Status DC Acetaminophen (Tylenol) 500 mg PRN Q6HRS PRN PO MILD PAIN / TEMP; Start 05/18/18 at 15:30; Stop 05/18/18 at 16:14; Status DC Acetaminophen/ Codeine Phosphate (Tylenol #3) 1 tab PRN Q6HRS PRN PO MODERATE PAIN Last administered on 05/26/18at 21:56; Start 05/18/18 at 15:30 Morphine Sulfate (Morphine Sulfate) 2 mg PRN Q2HR PRN IV PAIN Last administered on 05/28/18at 05:36; Start 05/18/18 at 15:30 Oxycodone/ Acetaminophen (Percocet 5/325) 1 tab PRN Q4HRS PRN PO SEVERE PAIN Last administered on 05/27/18at 12:49; Start 05/18/18 at 15:30 Albuterol Sulfate (Ventolin Hfa) 2 puff PRN Q6HRS PRN IH SHORTNESS OF BREATH; Start 05/18/18 at 15:30; Status UNV Digoxin (Lanoxin) 125 mcg DAILY PO ; Start 05/19/18 at 09:00; Stop 05/19/18 at 09:00; Status DC Furosemide (Lasix) 40 mg DAILY PO Last administered on 05/28/18 08:47; Start 05/19/18 at 09:00 Gabapentin (Neurontin) 300 mg DAILY PO Last administered on 05/28/18 08:50; Start 05/19/18 at 09:00 Lisinopril (Prinivil) 20 mg DAILY PO Last administered on 05/19/18 10:14; Start 05/19/18 at 09:00; Stop 05/24/18 at 15:20; Status DC Metoprolol Tartrate (Lopressor) 50 mg BID PO Last administered on 05/28/18 08:46; Start 05/18/18 at 21:00 Oxycodone/ Acetaminophen (Percocet 10/325) 1 tab PRN Q6HRS PRN PO SEVERE PAIN (2ND Choice) Last administered on 05/27/18at 23:35; Start 05/18/18 at 15:30 Oxycodone/ Acetaminophen (Percocet 5/325) 1 tab PRN Q4HRS PRN PO PAIN; Start 05/18/18 at 15:30; Status UNV Acetaminophen (Tylenol) 500 mg PRN Q6HRS PRN PO MILD PAIN / TEMP Last administered on 05/27/18at 23:35; Start 05/18/18 at 16:15 Atorvastatin Calcium (Lipitor) 80 mg QHS PO Last administered on 05/27/18 21:33; Start 05/18/18 at 21:00 Hydralazine HCl (Apresoline) 10 mg TID PO Last administered on 05/28/18 08:49; Start 05/18/18 at 16:00 Insulin Human Lispro (HumaLOG) 10 units DAILYWBKFT SQ Last administered on 05/23/18 08:58; Start 05/18/18 at 17:00; Stop 05/23/18 at 14:25; Status DC Levetiracetam (Keppra) 1,250 mg BID PO Last administered on 05/28/18 08:45; Start 05/18/18 at 21:00 Metformin HCl (Glucophage) 1,000 mg BIDWMEALS PO Last administered on 05/28/18 08:48; Start 05/18/18 at 17:00 Multivitamins (Thera M Plus) 1 tab DAILY PO Last administered on 05/28/18 08:48; Start 05/19/18 at 09:00 Potassium Chloride (Klor-Con) 20 meq DAILYWBKFT PO Last administered on 05/28/18 08:00; Start 05/19/18 at 08:00 Risperidone (RisperDAL) 1 mg QHS PO Last administered on 05/27/18 21:32; Start 05/18/18 at 21:00 Non-Formulary Medication (Rosuvastatin Calcium (Crestor)) 40 mg DAILY PO ; Start 05/19/18 at 09:00; Status UNV Zonisamide (Zonegran) 400 mg DAILY PO Last administered on 05/28/18 08:46; Start 05/19/18 at 09:00 Albuterol/ Ipratropium (Duoneb) 3 ml Q4HRS W/A NEB Last administered on 05/28/18 07:58; Start 05/18/18 at 18:00 Insulin Human Lispro (HumaLOG) 0-9 UNITS TIDWMEALS SQ Last administered on 05/26/18 18:04; Start 05/18/18 at 17:00 Dextrose (Dextrose 50%-Water Syringe) 12.5 gm PRN Q15MIN PRN IV SEE COMMENTS Last administered on 05/25/18 06:04; Start 05/18/18 at 15:30 Albuterol Sulfate (Ventolin Neb Soln) 2.5 mg PRN Q6HRS PRN NEB SHORTNESS OF BREATH Last administered on 05/26/18 08:35; Start 05/18/18 at 15:45 Piperacillin Sod/ Tazobactam Sod 3.375 gm/Sodium Chloride 50 ml @ 100 mls/hr Q6HRS IV Last administered on 05/24/18 05:33; Start 05/18/18 at 18:00; Stop 05/24/18 at 08:09; Status DC Potassium Chloride (Klor-Con) 40 meq 1X ONCE PO Last administered on 05/19/18 10:14; Start 05/19/18 at 08:30; Stop 05/19/18 at 08:31; Status DC Heparin Sodium (Porcine) (Heparin Sodium) 5,000 unit Q8HRS SQ ; Start 05/19/18 at 14:00; Stop 05/19/18 at 14:00; Status DC Furosemide (Lasix) 40 mg 1X ONCE IVP Last administered on 05/19/18at 10:12; Start 05/19/18 at 08:45; Stop 05/19/18 at 08:46; Status DC Phytonadione (Vitamin K Ampule) 10 mg 1X ONCE SQ Last administered on 05/19/18at 10:16; Start 05/19/18 at 10:00; Stop 05/19/18 at 10:01; Status DC Vancomycin HCl (Vanco Per Pharmacy) 1 each PRN DAILY PRN MC SEE COMMENTS Last administered on 05/19/18at 10:32; Start 05/19/18 at 10:00; Stop 05/20/18 at 10:42; Status DC Phytonadione (Vitamin K Ampule) 10 mg 1X ONCE SQ ; Start 05/19/18 at 10:15; Stop 05/19/18 at 10:16; Status UNV Vancomycin HCl 1.75 gm/Sodium Chloride 500 ml @ 250 mls/hr Q24H IV Last administered on 05/19/18at 16:59; Start 05/19/18 at 16:00; Stop 05/20/18 at 10:42; Status DC Vancomycin HCl (Vancomycin Trough Level) 1 each 1X ONCE MC ; Start 05/20/18 at 16:30; Stop 05/20/18 at 16:30; Status DC Acetaminophen (Tylenol Supp) 650 mg PRN Q6HRS PRN [place] MILD PAIN / TEMP Last administered on 05/23/18at 23:33; Start 05/20/18 at 01:15 Sodium Chloride 500 ml @ 333 mls/hr 1X ONCE IV Last administered on 05/20/18at 01:14; Start 05/20/18 at 01:15; Stop 05/20/18 at 02:45; Status DC Phytonadione 5 mg/ Dextrose 50.5 ml @ 101 mls/hr 1X ONCE IV Last administered on 05/20/18at 10:08; Start 05/20/18 at 10:30; Stop 05/20/18 at 10:59; Status DC Daptomycin 590 mg/ Sodium Chloride 50 ml @ 100 mls/hr Q24H IV Last administered on 05/27/18at 12:48; Start 05/20/18 at 12:00 Ondansetron HCl (Zofran) 4 mg PRN Q6HRS PRN IV NAUSEA/VOMITING; Start 05/21/18 at 09:45; Stop 05/22/18 at 09:44; Status DC Fentanyl Citrate (Fentanyl 2ml Vial) 25 mcg PRN Q5MIN PRN IV MILD PAIN; Start 05/21/18 at 09:45; Stop 05/22/18 at 09:44; Status DC Fentanyl Citrate (Fentanyl 2ml Vial) 50 mcg PRN Q5MIN PRN IV MODERATE TO SEVERE PAIN; Start 05/21/18 at 09:45; Stop 05/22/18 at 09:44; Status DC Morphine Sulfate (Morphine Sulfate) 1 mg PRN Q10MIN PRN IV SEVERE PAIN; Start 05/21/18 at 09:45; Stop 05/22/18 at 09:44; Status DC Ringer's Solution 1,000 ml @ 30 mls/hr Q24H IV ; Start 05/21/18 at 09:39; Stop 05/22/18 at 00:37; Status DC Lidocaine HCl (Xylocaine-Mpf 1% 2ml Vial) 2 ml 1X PRN PRN ID IV START; Start 05/21/18 at 09:45; Stop 05/22/18 at 09:44; Status DC Hydromorphone HCl (Dilaudid) 0.5 mg PRN Q10MIN PRN IV SEV PAIN, Second choice; Start 05/21/18 at 09:45; Stop 05/22/18 at 09:44; Status DC Prochlorperazine Edisylate (Compazine) 5 mg PACU PRN PRN IV NAUSEA, MRX1; Start 05/21/18 at 09:45; Stop 05/22/18 at 09:44; Status DC Lidocaine HCl (Glydo (Lidocaine) Jelly) 1 vianney 1X ONCE MM ; Start 05/21/18 at 12:30; Stop 05/21/18 at 12:31; Status DC Propofol 20 ml @ As Directed STK-MED ONCE IV ; Start 05/21/18 at 12:27; Stop 05/21/18 at 12:28; Status DC Dexamethasone Sodium Phosphate (Decadron) 20 mg STK-MED ONCE .ROUTE ; Start 05/21/18 at 12:27; Stop 05/21/18 at 12:28; Status DC Famotidine (Pepcid Vial) 20 mg STK-MED ONCE .ROUTE ; Start 05/21/18 at 12:27; Stop 05/21/18 at 12:28; Status DC Lidocaine HCl (Lidocaine Pf 2% Vial) 5 ml STK-MED ONCE .ROUTE ; Start 05/21/18 at 12:27; Stop 05/21/18 at 12:28; Status DC Ondansetron HCl (Zofran) 4 mg STK-MED ONCE .ROUTE ; Start 05/21/18 at 12:27; Stop 05/21/18 at 12:28; Status DC Fentanyl Citrate (Fentanyl 2ml Vial) 100 mcg STK-MED ONCE .ROUTE ; Start 05/21/18 at 12:27; Stop 05/21/18 at 12:28; Status DC Bacitracin 80052 unit/Sodium Chloride 500 ml @ 500 mls/hr 1X ONCE IRR ; Start 05/21/18 at 12:40; Stop 05/21/18 at 13:39; Status DC Cefazolin Sodium 1 gm/Sodium Chloride 500 ml @ 500 mls/hr 1X ONCE IRR ; Start 05/21/18 at 12:40; Stop 05/21/18 at 13:39; Status DC Lidocaine HCl 20 ml STK-MED ONCE .ROUTE ; Start 05/21/18 at 11:42; Stop 05/21/18 at 12:42; Status DC Esmolol HCl (Brevibloc) 100 mg STK-MED ONCE IVP ; Start 05/21/18 at 13:01; Stop 05/21/18 at 13:02; Status DC Esmolol HCl (Brevibloc) 100 mg STK-MED ONCE IVP ; Start 05/21/18 at 14:22; Stop 05/21/18 at 14:23; Status DC Neomycin/ Polymyxin/ Bacitracin (Triple Antibiotic Ointment) 1 pkt STK-MED ONCE TP Last administered on 05/21/18at 14:41; Start 05/21/18 at 13:38; Stop 05/21/18 at 14:38; Status DC Sevoflurane (Ultane) 90 ml STK-MED ONCE IH ; Start 05/21/18 at 14:40; Stop 05/21/18 at 14:41; Status DC Naloxone HCl (Narcan) 0.4 mg PRN Q2MIN PRN IV SEE INSTRUCTIONS; Start 05/21/18 at 15:00 Sodium Chloride 1,000 ml @ 25 mls/hr Q24H IV ; Start 05/21/18 at 14:57; Stop 05/24/18 at 07:00; Status DC Morphine Sulfate 30 ml @ 0 mls/hr CONT PRN PRN IV PER PROTOCOL; Start 05/21/18 at 15:00 Labetalol HCl (Normodyne Iv Push) 20 mg PRN Q2HR PRN IVP HYPERTENSION, SEE COMMENTS Last administered on 05/24/18at 00:15; Start 05/21/18 at 15:30 Labetalol HCl (Normodyne Iv Push) 5 mg 1X PACU PRN IVP tachycardia and HTN Last administered on 05/21/18at 15:30; Start 05/21/18 at 15:30; Stop 05/22/18 at 09:09; Status DC Insulin Glargine (Lantus) 3 units 1X ONCE SQ Last administered on 05/21/18at 22:00; Start 05/21/18 at 22:00; Stop 05/22/18 at 01:31; Status DC Aspirin (Ecotrin) 81 mg DAILYWBKFT PO Last administered on 05/28/18at 08:47; Start 05/23/18 at 08:00 Digoxin (Lanoxin) 250 mcg 1X ONCE IV Last administered on 05/22/18at 12:28; Start 05/22/18 at 12:30; Stop 05/22/18 at 12:31; Status DC Warfarin Sodium (Coumadin) 6 mg DAILY16 PO ; Start 05/22/18 at 16:00; Stop 05/22/18 at 16:00; Status DC Warfarin Sodium (Coumadin) 2.5 mg 3X/WEEK PO ; Start 05/23/18 at 09:00; Status UNV Warfarin Sodium (Coumadin Per Physician) 1 each PRN DAILY PRN MC SEE COMMENTS; Start 05/22/18 at 14:45; Stop 05/22/18 at 14:57; Status DC Warfarin Sodium (Coumadin Per Pharmacy) 1 each PRN DAILY PRN MC SEE COMMENTS Last administered on 05/27/18at 11:30; Start 05/22/18 at 15:00 Warfarin Sodium (Coumadin) 4 mg 1X WARF ONCE PO Last administered on 05/22/18at 16:19; Start 05/22/18 at 16:00; Stop 05/22/18 at 16:01; Status DC Warfarin Sodium (Coumadin) 4 mg 1X WARF ONCE PO ; Start 05/23/18 at 16:00; Stop 05/23/18 at 16:01; Status DC Ringer's Solution 1,000 ml @ 75 mls/hr [id number] IV ; Start 05/23/18 at 13:45; Status Cancel Ringer's Solution 1,000 ml @ 75 mls/hr [id number] IV Last administered on 05/27/18at 00:43; Start 05/23/18 at 14:00 Insulin Human Lispro (HumaLOG) 7 units DAILYWBKFT SQ ; Start 05/24/18 at 08:00; Stop 05/25/18 at 12:44; Status DC Dextrose (Dextrose 50%-Water Syringe) 25 gm 1X ONCE IV Last administered on 05/23/18at 13:15; Start 05/23/18 at 17:45; Stop 05/23/18 at 17:46; Status DC Meropenem 500 mg/ Sodium Chloride 50 ml @ 100 mls/hr Q6HRS IV Last administered on 05/28/18at 11:14; Start 05/24/18 at 12:00 Warfarin Sodium (Coumadin) 6 mg 1X WARF ONCE PO Last administered on 05/24/18at 15:33; Start 05/24/18 at 16:00; Stop 05/24/18 at 16:01; Status DC Insulin Human Lispro (HumaLOG) 3 units DAILYWBKFT SQ Last administered on 05/28/18at 09:06; Start 05/26/18 at 08:00 Warfarin Sodium (Coumadin) 6 mg 1X WARF ONCE PO Last administered on 05/25/18at 16:04; Start 05/25/18 at 16:00; Stop 05/25/18 at 16:01; Status DC Polyethylene Glycol (miraLAX PACKET) 17 gm DAILY PO Last administered on 05/28/18at 08:49; Start 05/26/18 at 14:00 Warfarin Sodium (Coumadin) 7.5 mg 1X WARF ONCE PO Last administered on 05/27/18at 17:56; Start 05/27/18 at 16:00; Stop 05/27/18 at 16:01; Status DC Micafungin Sodium 100 mg/Dextrose 100 ml @ 100 mls/hr Q24H IV Last administered on 05/27/18at 12:50; Start 05/27/18 at 12:00 Active Scripts Active Digoxin 125 Mcg Tablet 125 Mcg PO DAILY Furosemide 40 Mg Tablet 40 Mg PO DAILY Metoprolol Tartrate 50 Mg Tablet 50 Mg PO BID [Warfarin Sodium] 1 EACH Each 1 Each MC PRN DAILY PRN Lisinopril 20 Mg Tablet 20 Mg PO DAILY Duoneb 0.5-3(2.5) Mg/3 Ml (Albuterol/Ipratropium) 3 Ml Ampul.neb 3 Ml NEB Q4HRS W/A 30 Days Hydralazine Hcl 10 Mg Tablet 10 Mg PO TID Reported Zonisamide 100 Mg Capsule 400 Mg PO DAILY Percocet 5-325 Mg Tablet (Oxycodone/Acetaminophen) 1 Each Tablet 1 Tab PO PRN Q4HRS PRN Multivitamins (Multivitamin) 1 Each Tablet 1 Tab PO DAILY Levetiracetam 250 Mg Tablet 1,250 Mg PO BID Novolin N (Nph, Human Insulin Isophane) 100 Unit/1 Ml Vial Unknown Dose SQ Atorvastatin Calcium 80 Mg Tablet 1 Tab PO DAILY Acetaminophen 500 Mg Tablet 1 Tab PO PRN Q6HRS PRN Albuterol Sulfate Hfa Inhaler (Albuterol Sulfate) 8.5 Gm Hfa.aer.ad 2 Puff IH PRN Q6HRS PRN Aspirin Ec (Aspirin) 325 Mg Tablet.dr 81 Mg PO DAILY Crestor (Rosuvastatin Calcium) 40 Mg Tablet 40 Mg PO DAILY Warfarin Sodium 5 Mg Tablet 6 Mg PO DAILY Warfarin Sodium 2.5 Mg Tablet 2.5 Mg PO 3X/WEEK monday,monday, Gabapentin (Gabapentin) 300 Mg Capsule 300 Mg PO DAILY Risperidone 1 Mg Tablet 1 Mg PO HS Novolog (Insulin Aspart) 100 Unit/1 Ml Vial 10 Unit SQ DAILYAC Oxycodone-Acetaminophen 10-325 (Oxycodone Hcl/Acetaminophen) 1 Each Tablet 1 Each PO PRN Q6HRS Potassium 99 Mg Tablet 20 Meq PO DAILY Prednisone (Prednisone) 10 Mg Tablet 10 Mg PO DAILY Metformin Hcl 500 Mg Tablet 1,000 Mg PO BIDBFRMEAL Allergies Allergies: Coded Allergies: I S O L A T I O N *CONTACT* (Verified Allergy, Unknown, 05/23/18) mrsa No Known Medication Allergies (Verified Allergy, Unknown, 05/23/18) ROS Review of System poor historian, unobtainable Physical Exam General: Alert, Cooperative, No acute distress HEENT: Atraumatic Lungs: Normal air movement Abdomen: Soft, No tenderness Extremities: Other (right BKA dressing, LLE dressing) Neuro: Other (alert, but pleasant confusion) Vitals VITALS Vital Signs Date Time Temp Pulse Resp B/P (MAP) Pulse Ox O2 Delivery O2 Flow Rate FiO2 05/28/18 10:54 99.0 57 20 143/56 (85) 98 Nasal Cannula 2.0 99.0 Labs Labs Laboratory Tests Test 05/26/18 11:44 05/26/18 17:25 05/26/18 21:24 05/27/18 04:35 Glucose (Fingerstick) 159 mg/dL (70-99) 193 mg/dL (70-99) 165 mg/dL (70-99) White Blood Count 12.2 x10^3/uL (4.0-11.0) Red Blood Count 2.94 x10^6/uL (4.30-5.70) Hemoglobin 7.9 g/dL (13.0-17.5) Hematocrit 25.1 % (39.0-53.0) Mean Corpuscular Volume 85 fL (79-100) Mean Corpuscular Hemoglobin 27 pg (25-35) Mean Corpuscular Hemoglobin Concent 32 g/dL (31-37) Red Cell Distribution Width 16.4 % (11.5-14.5) Platelet Count 255 x10^3/uL (140-400) Neutrophils (%) (Auto) 82 % (31-73) Lymphocytes (%) (Auto) 6 % (24-48) Monocytes (%) (Auto) 10 % (0-9) Eosinophils (%) (Auto) 2 % (0-3) Basophils (%) (Auto) 0 % (0-3) Neutrophils # (Auto) 10.0 x10^3uL (1.8-7.7) Lymphocytes # (Auto) 0.7 x10^3/uL (1.0-4.8) Monocytes # (Auto) 1.2 x10^3/uL (0.0-1.1) Eosinophils # (Auto) 0.2 x10^3/uL (0.0-0.7) Basophils # (Auto) 0.0 x10^3/uL (0.0-0.2) Prothrombin Time 18.1 SEC (11.7-14.0) Prothromb Time International Ratio 1.5 (0.8-1.1) Sodium Level 135 mmol/L (136-145) Potassium Level 4.4 mmol/L (3.5-5.1) Chloride Level 101 mmol/L (98-107) Carbon Dioxide Level 26 mmol/L (21-32) Anion Gap 8 (6-14) Blood Urea Nitrogen 20 mg/dL (8-26) Creatinine 1.5 mg/dL (0.7-1.3) Estimated GFR (Cockcroft-Gault) 45.5 Glucose Level 135 mg/dL (70-99) Calcium Level 8.1 mg/dL (8.5-10.1) Total Bilirubin 0.4 mg/dL (0.2-1.0) Direct Bilirubin 0.3 mg/dL (0.0-0.2) Aspartate Amino Transf (AST/SGOT) 50 U/L (15-37) Alanine Aminotransferase (ALT/SGPT) 25 U/L (16-63) Alkaline Phosphatase 80 U/L (46-116) Total Protein 5.2 g/dL (6.4-8.2) Albumin 1.6 g/dL (3.4-5.0) Lipase 34 U/L (73-393) Procalcitonin 0.27 ng/mL (0.00-0.10) Thyroid Stimulating Hormone (TSH) 0.878 uIU/mL (0.358-3.74) Test 05/27/18 07:56 05/27/18 11:56 05/27/18 17:14 05/27/18 19:50 Glucose (Fingerstick) 103 mg/dL (70-99) 132 mg/dL (70-99) 118 mg/dL (70-99) 104 mg/dL (70-99) Test 05/28/18 07:53 05/28/18 08:15 Glucose (Fingerstick) 121 mg/dL (70-99) White Blood Count 11.4 x10^3/uL (4.0-11.0) Red Blood Count 2.85 x10^6/uL (4.30-5.70) Hemoglobin 7.5 g/dL (13.0-17.5) Hematocrit 24.1 % (39.0-53.0) Mean Corpuscular Volume 84 fL (79-100) Mean Corpuscular Hemoglobin 26 pg (25-35) Mean Corpuscular Hemoglobin Concent 31 g/dL (31-37) Red Cell Distribution Width 16.1 % (11.5-14.5) Platelet Count 294 x10^3/uL (140-400) Neutrophils (%) (Auto) 83 % (31-73) Lymphocytes (%) (Auto) 5 % (24-48) Monocytes (%) (Auto) 10 % (0-9) Eosinophils (%) (Auto) 2 % (0-3) Basophils (%) (Auto) 0 % (0-3) Neutrophils # (Auto) 9.4 x10^3uL (1.8-7.7) Lymphocytes # (Auto) 0.6 x10^3/uL (1.0-4.8) Monocytes # (Auto) 1.1 x10^3/uL (0.0-1.1) Eosinophils # (Auto) 0.2 x10^3/uL (0.0-0.7) Basophils # (Auto) 0.0 x10^3/uL (0.0-0.2) Prothrombin Time 21.1 SEC (11.7-14.0) Prothromb Time International Ratio 1.9 (0.8-1.1) Sodium Level 138 mmol/L (136-145) Potassium Level 4.5 mmol/L (3.5-5.1) Chloride Level 104 mmol/L (98-107) Carbon Dioxide Level 25 mmol/L (21-32) Anion Gap 9 (6-14) Blood Urea Nitrogen 20 mg/dL (8-26) Creatinine 1.4 mg/dL (0.7-1.3) Estimated GFR (Cockcroft-Gault) 49.3 BUN/Creatinine Ratio 14 (6-20) Glucose Level 127 mg/dL (70-99) Calcium Level 8.2 mg/dL (8.5-10.1) Total Bilirubin 0.5 mg/dL (0.2-1.0) Aspartate Amino Transf (AST/SGOT) 72 U/L (15-37) Alanine Aminotransferase (ALT/SGPT) 27 U/L (16-63) Alkaline Phosphatase 89 U/L (46-116) Total Protein 6.2 g/dL (6.4-8.2) Albumin 1.5 g/dL (3.4-5.0) Albumin/Globulin Ratio 0.3 (1.0-1.7) Laboratory Tests Test 05/27/18 11:56 05/27/18 17:14 05/27/18 19:50 05/28/18 07:53 Glucose (Fingerstick) 132 mg/dL (70-99) 118 mg/dL (70-99) 104 mg/dL (70-99) 121 mg/dL (70-99) Test 05/28/18 08:15 White Blood Count 11.4 x10^3/uL (4.0-11.0) Red Blood Count 2.85 x10^6/uL (4.30-5.70) Hemoglobin 7.5 g/dL (13.0-17.5) Hematocrit 24.1 % (39.0-53.0) Mean Corpuscular Volume 84 fL (79-100) Mean Corpuscular Hemoglobin 26 pg (25-35) Mean Corpuscular Hemoglobin Concent 31 g/dL (31-37) Red Cell Distribution Width 16.1 % (11.5-14.5) Platelet Count 294 x10^3/uL (140-400) Neutrophils (%) (Auto) 83 % (31-73) Lymphocytes (%) (Auto) 5 % (24-48) Monocytes (%) (Auto) 10 % (0-9) Eosinophils (%) (Auto) 2 % (0-3) Basophils (%) (Auto) 0 % (0-3) Neutrophils # (Auto) 9.4 x10^3uL (1.8-7.7) Lymphocytes # (Auto) 0.6 x10^3/uL (1.0-4.8) Monocytes # (Auto) 1.1 x10^3/uL (0.0-1.1) Eosinophils # (Auto) 0.2 x10^3/uL (0.0-0.7) Basophils # (Auto) 0.0 x10^3/uL (0.0-0.2) Prothrombin Time 21.1 SEC (11.7-14.0) Prothromb Time International Ratio 1.9 (0.8-1.1) Sodium Level 138 mmol/L (136-145) Potassium Level 4.5 mmol/L (3.5-5.1) Chloride Level 104 mmol/L (98-107) Carbon Dioxide Level 25 mmol/L (21-32) Anion Gap 9 (6-14) Blood Urea Nitrogen 20 mg/dL (8-26) Creatinine 1.4 mg/dL (0.7-1.3) Estimated GFR (Cockcroft-Gault) 49.3 BUN/Creatinine Ratio 14 (6-20) Glucose Level 127 mg/dL (70-99) Calcium Level 8.2 mg/dL (8.5-10.1) Total Bilirubin 0.5 mg/dL (0.2-1.0) Aspartate Amino Transf (AST/SGOT) 72 U/L (15-37) Alanine Aminotransferase (ALT/SGPT) 27 U/L (16-63) Alkaline Phosphatase 89 U/L (46-116) Total Protein 6.2 g/dL (6.4-8.2) Albumin 1.5 g/dL (3.4-5.0) Albumin/Globulin Ratio 0.3 (1.0-1.7) Images Images Ct with distended gallbladder and sludge Assessment/Plan Assessment/Plan acalculous cholecystitis pt currently appears comfortable, but certainly gallbladder may be source of inf ection and inflammation. Although, with multiple comorbidities, may not be definitive answer. Pt is poor surgical candidate and would recommend against cholecystectomy. However, if pt with continued fever and without other source of infection, would consider IR consult for cholecystostomy tube placement. D/w ID. Thanks for consult! DAVY NAQVI MD May 28, 2018 11:22
[2018-05-28] MEDS: MICAFUNGIN 100 MG in IV DEXTROSE 5% 100ML 100 ML IV SCH (12:01)
--- NOTE | 2018-05-28 12:22 | PDOC ---
PROGRESS NOTES Subjective Subjective Patient status post right BKA and left foot debridement Objective Objective Vital Signs Date Time Temp Pulse Resp B/P (MAP) Pulse Ox O2 Delivery O2 Flow Rate FiO2 05/28/18 12:07 99 Nasal Cannula 3.0 05/28/18 12:03 16 05/28/18 10:54 99.0 57 143/56 (85) 99.0 Intake and Output 05/28/18 06:59 Intake Total 100 ml Output Total 1400 ml Balance -1300 ml Intake Oral 100 ml Output Urine Total 1400 ml Bladder Scan Volume Amount Physical Exam Physical Exam Dressing taken down by me todayright BKA stump looks very good skin edges all appeared healthy no hematoma Left lateral ankle wound superficial, skin edges appear healthy Assessment Assessment Problems Medical Problems: (1) Fever Status: Acute (2) Gangrene of toe Status: Acute (3) Leukocytosis Status: Acute (4) Severe sepsis Status: Acute Plan Plan of Care BKA stump looks good, follow-up in the office in 2 weeks for staple removal Continue local wound care left lateral ankle wound Vascular surgery standpoint okay to discharge Comment Review of Relevant I have reviewed the following items navi (where applicable) has been applied. Labs Laboratory Tests Test 05/26/18 17:25 05/26/18 21:24 05/27/18 04:35 05/27/18 07:56 Glucose (Fingerstick) 193 mg/dL (70-99) 165 mg/dL (70-99) 103 mg/dL (70-99) White Blood Count 12.2 x10^3/uL (4.0-11.0) Red Blood Count 2.94 x10^6/uL (4.30-5.70) Hemoglobin 7.9 g/dL (13.0-17.5) Hematocrit 25.1 % (39.0-53.0) Mean Corpuscular Volume 85 fL (79-100) Mean Corpuscular Hemoglobin 27 pg (25-35) Mean Corpuscular Hemoglobin Concent 32 g/dL (31-37) Red Cell Distribution Width 16.4 % (11.5-14.5) Platelet Count 255 x10^3/uL (140-400) Neutrophils (%) (Auto) 82 % (31-73) Lymphocytes (%) (Auto) 6 % (24-48) Monocytes (%) (Auto) 10 % (0-9) Eosinophils (%) (Auto) 2 % (0-3) Basophils (%) (Auto) 0 % (0-3) Neutrophils # (Auto) 10.0 x10^3uL (1.8-7.7) Lymphocytes # (Auto) 0.7 x10^3/uL (1.0-4.8) Monocytes # (Auto) 1.2 x10^3/uL (0.0-1.1) Eosinophils # (Auto) 0.2 x10^3/uL (0.0-0.7) Basophils # (Auto) 0.0 x10^3/uL (0.0-0.2) Prothrombin Time 18.1 SEC (11.7-14.0) Prothromb Time International Ratio 1.5 (0.8-1.1) Sodium Level 135 mmol/L (136-145) Potassium Level 4.4 mmol/L (3.5-5.1) Chloride Level 101 mmol/L (98-107) Carbon Dioxide Level 26 mmol/L (21-32) Anion Gap 8 (6-14) Blood Urea Nitrogen 20 mg/dL (8-26) Creatinine 1.5 mg/dL (0.7-1.3) Estimated GFR (Cockcroft-Gault) 45.5 Glucose Level 135 mg/dL (70-99) Calcium Level 8.1 mg/dL (8.5-10.1) Total Bilirubin 0.4 mg/dL (0.2-1.0) Direct Bilirubin 0.3 mg/dL (0.0-0.2) Aspartate Amino Transf (AST/SGOT) 50 U/L (15-37) Alanine Aminotransferase (ALT/SGPT) 25 U/L (16-63) Alkaline Phosphatase 80 U/L (46-116) Total Protein 5.2 g/dL (6.4-8.2) Albumin 1.6 g/dL (3.4-5.0) Lipase 34 U/L (73-393) Procalcitonin 0.27 ng/mL (0.00-0.10) Thyroid Stimulating Hormone (TSH) 0.878 uIU/mL (0.358-3.74) Test 05/27/18 11:56 05/27/18 17:14 05/27/18 19:50 05/28/18 07:53 Glucose (Fingerstick) 132 mg/dL (70-99) 118 mg/dL (70-99) 104 mg/dL (70-99) 121 mg/dL (70-99) Test 05/28/18 08:15 05/28/18 11:48 White Blood Count 11.4 x10^3/uL (4.0-11.0) Red Blood Count 2.85 x10^6/uL (4.30-5.70) Hemoglobin 7.5 g/dL (13.0-17.5) Hematocrit 24.1 % (39.0-53.0) Mean Corpuscular Volume 84 fL (79-100) Mean Corpuscular Hemoglobin 26 pg (25-35) Mean Corpuscular Hemoglobin Concent 31 g/dL (31-37) Red Cell Distribution Width 16.1 % (11.5-14.5) Platelet Count 294 x10^3/uL (140-400) Neutrophils (%) (Auto) 83 % (31-73) Lymphocytes (%) (Auto) 5 % (24-48) Monocytes (%) (Auto) 10 % (0-9) Eosinophils (%) (Auto) 2 % (0-3) Basophils (%) (Auto) 0 % (0-3) Neutrophils # (Auto) 9.4 x10^3uL (1.8-7.7) Lymphocytes # (Auto) 0.6 x10^3/uL (1.0-4.8) Monocytes # (Auto) 1.1 x10^3/uL (0.0-1.1) Eosinophils # (Auto) 0.2 x10^3/uL (0.0-0.7) Basophils # (Auto) 0.0 x10^3/uL (0.0-0.2) Prothrombin Time 21.1 SEC (11.7-14.0) Prothromb Time International Ratio 1.9 (0.8-1.1) Sodium Level 138 mmol/L (136-145) Potassium Level 4.5 mmol/L (3.5-5.1) Chloride Level 104 mmol/L (98-107) Carbon Dioxide Level 25 mmol/L (21-32) Anion Gap 9 (6-14) Blood Urea Nitrogen 20 mg/dL (8-26) Creatinine 1.4 mg/dL (0.7-1.3) Estimated GFR (Cockcroft-Gault) 49.3 BUN/Creatinine Ratio 14 (6-20) Glucose Level 127 mg/dL (70-99) Calcium Level 8.2 mg/dL (8.5-10.1) Total Bilirubin 0.5 mg/dL (0.2-1.0) Aspartate Amino Transf (AST/SGOT) 72 U/L (15-37) Alanine Aminotransferase (ALT/SGPT) 27 U/L (16-63) Alkaline Phosphatase 89 U/L (46-116) Total Protein 6.2 g/dL (6.4-8.2) Albumin 1.5 g/dL (3.4-5.0) Albumin/Globulin Ratio 0.3 (1.0-1.7) Glucose (Fingerstick) 139 mg/dL (70-99) Laboratory Tests Test 05/27/18 17:14 05/27/18 19:50 05/28/18 07:53 05/28/18 08:15 Glucose (Fingerstick) 118 mg/dL (70-99) 104 mg/dL (70-99) 121 mg/dL (70-99) White Blood Count 11.4 x10^3/uL (4.0-11.0) Red Blood Count 2.85 x10^6/uL (4.30-5.70) Hemoglobin 7.5 g/dL (13.0-17.5) Hematocrit 24.1 % (39.0-53.0) Mean Corpuscular Volume 84 fL (79-100) Mean Corpuscular Hemoglobin 26 pg (25-35) Mean Corpuscular Hemoglobin Concent 31 g/dL (31-37) Red Cell Distribution Width 16.1 % (11.5-14.5) Platelet Count 294 x10^3/uL (140-400) Neutrophils (%) (Auto) 83 % (31-73) Lymphocytes (%) (Auto) 5 % (24-48) Monocytes (%) (Auto) 10 % (0-9) Eosinophils (%) (Auto) 2 % (0-3) Basophils (%) (Auto) 0 % (0-3) Neutrophils # (Auto) 9.4 x10^3uL (1.8-7.7) Lymphocytes # (Auto) 0.6 x10^3/uL (1.0-4.8) Monocytes # (Auto) 1.1 x10^3/uL (0.0-1.1) Eosinophils # (Auto) 0.2 x10^3/uL (0.0-0.7) Basophils # (Auto) 0.0 x10^3/uL (0.0-0.2) Prothrombin Time 21.1 SEC (11.7-14.0) Prothromb Time International Ratio 1.9 (0.8-1.1) Sodium Level 138 mmol/L (136-145) Potassium Level 4.5 mmol/L (3.5-5.1) Chloride Level 104 mmol/L (98-107) Carbon Dioxide Level 25 mmol/L (21-32) Anion Gap 9 (6-14) Blood Urea Nitrogen 20 mg/dL (8-26) Creatinine 1.4 mg/dL (0.7-1.3) Estimated GFR (Cockcroft-Gault) 49.3 BUN/Creatinine Ratio 14 (6-20) Glucose Level 127 mg/dL (70-99) Calcium Level 8.2 mg/dL (8.5-10.1) Total Bilirubin 0.5 mg/dL (0.2-1.0) Aspartate Amino Transf (AST/SGOT) 72 U/L (15-37) Alanine Aminotransferase (ALT/SGPT) 27 U/L (16-63) Alkaline Phosphatase 89 U/L (46-116) Total Protein 6.2 g/dL (6.4-8.2) Albumin 1.5 g/dL (3.4-5.0) Albumin/Globulin Ratio 0.3 (1.0-1.7) Test 05/28/18 11:48 Glucose (Fingerstick) 139 mg/dL (70-99) Microbiology 05/24/18 Blood Culture - Preliminary, Resulted NO GROWTH AFTER 4 DAYS 05/19/18 Urine Culture - Final, Complete 05/19/18 Urine Culture Result 1 (FELICITA) - Final, Complete 05/19/18 Anaerobic/Aerobic Culture - Final, Complete 05/19/18 Anaerobic Culture Result 1 (FELICITA) - Final, Complete 05/19/18 Aerobic Culture - Final, Complete 05/19/18 Aerobic Culture Result 1 (FELICITA) - Final, Complete 05/19/18 Aerobic Culture Result 2 (FELICITA) - Final, Complete 05/19/18 Antimicrobic Susceptibility - Final, Complete 05/19/18 Gram Stain - Final, Complete 05/19/18 Gram Stain Result 1 (FELICITA) - Final, Complete 05/19/18 Gram Stain Result 2 (FELICITA) - Final, Complete Medications Current Medications Sodium Chloride 1,000 ml @ 2,190 mls/hr Q28M IV Last administered on 05/18/18at 14:36; Start 05/18/18 at 12:52; Stop 05/18/18 at 13:52; Status DC Piperacillin Sod/ Tazobactam Sod 4.5 gm/Sodium Chloride 100 ml @ 200 mls/hr 1X ONCE IV Last administered on 05/18/18at 14:34; Start 05/18/18 at 13:00; Stop 05/18/18 at 13:29; Status DC Vancomycin HCl (Vanco Per Pharmacy) 1 each 1X ONCE MC Last administered on 05/18/18at 13:00; Start 05/18/18 at 13:00; Stop 05/18/18 at 13:11; Status DC Vancomycin HCl 2 gm/Sodium Chloride 500 ml @ 250 mls/hr 1X ONCE IV Last administered on 05/18/18at 15:28; Start 05/18/18 at 13:15; Stop 05/18/18 at 15:14; Status DC Ondansetron HCl (Zofran) 4 mg PRN Q8HRS PRN IV NAUSEA/VOMITING; Start 05/18/18 at 14:45; Stop 05/18/18 at 15:28; Status DC Fentanyl Citrate (Fentanyl 2ml Vial) 50 mcg PRN Q1HR PRN IV PAIN; Start 05/18/18 at 14:45; Stop 05/19/18 at 11:50; Status DC Sodium Chloride 1,000 ml @ 80 mls/hr [id number] IV ; Start 05/18/18 at 14:43; Stop 05/18/18 at 18:42; Status DC Acetaminophen (Tylenol) 650 mg 1X ONCE PO Last administered on 05/18/18at 15:29; Start 05/18/18 at 15:30; Stop 05/18/18 at 15:31; Status DC Ondansetron HCl (Zofran) 4 mg PRN Q6HRS PRN IV NAUSEA/VOMITING Last administered on 05/24/18 06:14; Start 05/18/18 at 15:30 Diltiazem HCl (Cardizem Iv Push) 10 mg 1X ONCE IVP ; Start 05/18/18 at 15:30; Stop 05/18/18 at 15:31; Status DC Acetaminophen (Tylenol) 500 mg PRN Q6HRS PRN PO MILD PAIN / TEMP; Start 05/18/18 at 15:30; Stop 05/18/18 at 16:14; Status DC Acetaminophen/ Codeine Phosphate (Tylenol #3) 1 tab PRN Q6HRS PRN PO MODERATE PAIN Last administered on 05/26/18at 21:56; Start 05/18/18 at 15:30 Morphine Sulfate (Morphine Sulfate) 2 mg PRN Q2HR PRN IV PAIN Last administered on 05/28/18at 12:03; Start 05/18/18 at 15:30 Oxycodone/ Acetaminophen (Percocet 5/325) 1 tab PRN Q4HRS PRN PO SEVERE PAIN Last administered on 05/27/18at 12:49; Start 05/18/18 at 15:30 Albuterol Sulfate (Ventolin Hfa) 2 puff PRN Q6HRS PRN IH SHORTNESS OF BREATH; Start 05/18/18 at 15:30; Status UNV Digoxin (Lanoxin) 125 mcg DAILY PO ; Start 05/19/18 at 09:00; Stop 05/19/18 at 09:00; Status DC Furosemide (Lasix) 40 mg DAILY PO Last administered on 05/28/18at 08:47; Start 05/19/18 at 09:00 Gabapentin (Neurontin) 300 mg DAILY PO Last administered on 05/28/18at 08:50; Start 05/19/18 at 09:00 Lisinopril (Prinivil) 20 mg DAILY PO Last administered on 05/19/18at 10:14; Start 05/19/18 at 09:00; Stop 05/24/18 at 15:20; Status DC Metoprolol Tartrate (Lopressor) 50 mg BID PO Last administered on 05/28/18at 08:46; Start 05/18/18 at 21:00 Oxycodone/ Acetaminophen (Percocet 10/325) 1 tab PRN Q6HRS PRN PO SEVERE PAIN (2ND Choice) Last administered on 05/27/18 23:35; Start 05/18/18 at 15:30 Oxycodone/ Acetaminophen (Percocet 5/325) 1 tab PRN Q4HRS PRN PO PAIN; Start 05/18/18 at 15:30; Status UNV Acetaminophen (Tylenol) 500 mg PRN Q6HRS PRN PO MILD PAIN / TEMP Last administered on 05/27/18at 23:35; Start 05/18/18 at 16:15 Atorvastatin Calcium (Lipitor) 80 mg QHS PO Last administered on 05/27/18 21:33; Start 05/18/18 at 21:00 Hydralazine HCl (Apresoline) 10 mg TID PO Last administered on 05/28/18 08:49; Start 05/18/18 at 16:00 Insulin Human Lispro (HumaLOG) 10 units DAILYWBKFT SQ Last administered on 05/23/18 08:58; Start 05/18/18 at 17:00; Stop 05/23/18 at 14:25; Status DC Levetiracetam (Keppra) 1,250 mg BID PO Last administered on 05/28/18 08:45; Start 05/18/18 at 21:00 Metformin HCl (Glucophage) 1,000 mg BIDWMEALS PO Last administered on 05/28/18 08:48; Start 05/18/18 at 17:00 Multivitamins (Thera M Plus) 1 tab DAILY PO Last administered on 05/28/18 08:48; Start 05/19/18 at 09:00 Potassium Chloride (Klor-Con) 20 meq DAILYWBKFT PO Last administered on 05/28/18 08:00; Start 05/19/18 at 08:00 Risperidone (RisperDAL) 1 mg QHS PO Last administered on 05/27/18 21:32; Start 05/18/18 at 21:00 Non-Formulary Medication (Rosuvastatin Calcium (Crestor)) 40 mg DAILY PO ; Start 05/19/18 at 09:00; Status UNV Zonisamide (Zonegran) 400 mg DAILY PO Last administered on 05/28/18 08:46; Start 05/19/18 at 09:00 Albuterol/ Ipratropium (Duoneb) 3 ml Q4HRS W/A NEB Last administered on 05/28/18at 12:05; Start 05/18/18 at 18:00 Insulin Human Lispro (HumaLOG) 0-9 UNITS TIDWMEALS SQ Last administered on 05/26/18at 18:04; Start 05/18/18 at 17:00 Dextrose (Dextrose 50%-Water Syringe) 12.5 gm PRN Q15MIN PRN IV SEE COMMENTS Last administered on 05/25/18at 06:04; Start 05/18/18 at 15:30 Albuterol Sulfate (Ventolin Neb Soln) 2.5 mg PRN Q6HRS PRN NEB SHORTNESS OF BREATH Last administered on 05/26/18at 08:35; Start 05/18/18 at 15:45 Piperacillin Sod/ Tazobactam Sod 3.375 gm/Sodium Chloride 50 ml @ 100 mls/hr Q6HRS IV Last administered on 05/24/18at 05:33; Start 05/18/18 at 18:00; Stop 05/24/18 at 08:09; Status DC Potassium Chloride (Klor-Con) 40 meq 1X ONCE PO Last administered on 05/19/18at 10:14; Start 05/19/18 at 08:30; Stop 05/19/18 at 08:31; Status DC Heparin Sodium (Porcine) (Heparin Sodium) 5,000 unit Q8HRS SQ ; Start 05/19/18 at 14:00; Stop 05/19/18 at 14:00; Status DC Furosemide (Lasix) 40 mg 1X ONCE IVP Last administered on 05/19/18at 10:12; Start 05/19/18 at 08:45; Stop 05/19/18 at 08:46; Status DC Phytonadione (Vitamin K Ampule) 10 mg 1X ONCE SQ Last administered on 9at 10:16; Start 05/19/18 at 10:00; Stop 05/19/18 at 10:01; Status DC Vancomycin HCl (Vanco Per Pharmacy) 1 each PRN DAILY PRN MC SEE COMMENTS Last administered on 05/19/18at 10:32; Start 05/19/18 at 10:00; Stop 05/20/18 at 10:42; Status DC Phytonadione (Vitamin K Ampule) 10 mg 1X ONCE SQ ; Start 05/19/18 at 10:15; Stop 05/19/18 at 10:16; Status UNV Vancomycin HCl 1.75 gm/Sodium Chloride 500 ml @ 250 mls/hr Q24H IV Last administered on 05/19/18at 16:59; Start 05/19/18 at 16:00; Stop 05/20/18 at 10:42; Status DC Vancomycin HCl (Vancomycin Trough Level) 1 each 1X ONCE MC ; Start 05/20/18 at 16:30; Stop 05/20/18 at 16:30; Status DC Acetaminophen (Tylenol Supp) 650 mg PRN Q6HRS PRN UT MILD PAIN / TEMP Last administered on 05/23/18at 23:33; Start 05/20/18 at 01:15 Sodium Chloride 500 ml @ 333 mls/hr 1X ONCE IV Last administered on 05/20/18at 01:14; Start 05/20/18 at 01:15; Stop 05/20/18 at 02:45; Status DC Phytonadione 5 mg/ Dextrose 50.5 ml @ 101 mls/hr 1X ONCE IV Last administered on 05/20/18at 10:08; Start 05/20/18 at 10:30; Stop 05/20/18 at 10:59; Status DC Daptomycin 590 mg/ Sodium Chloride 50 ml @ 100 mls/hr Q24H IV Last administered on 05/27/18at 12:48; Start 05/20/18 at 12:00 Ondansetron HCl (Zofran) 4 mg PRN Q6HRS PRN IV NAUSEA/VOMITING; Start 05/21/18 at 09:45; Stop 05/22/18 at 09:44; Status DC Fentanyl Citrate (Fentanyl 2ml Vial) 25 mcg PRN Q5MIN PRN IV MILD PAIN; Start 05/21/18 at 09:45; Stop 05/22/18 at 09:44; Status DC Fentanyl Citrate (Fentanyl 2ml Vial) 50 mcg PRN Q5MIN PRN IV MODERATE TO SEVERE PAIN; Start 05/21/18 at 09:45; Stop 05/22/18 at 09:44; Status DC Morphine Sulfate (Morphine Sulfate) 1 mg PRN Q10MIN PRN IV SEVERE PAIN; Start 05/21/18 at 09:45; Stop 05/22/18 at 09:44; Status DC Ringer's Solution 1,000 ml @ 30 mls/hr Q24H IV ; Start 05/21/18 at 09:39; Stop 05/22/18 at 00:37; Status DC Lidocaine HCl (Xylocaine-Mpf 1% 2ml Vial) 2 ml 1X PRN PRN ID IV START; Start 05/21/18 at 09:45; Stop 05/22/18 at 09:44; Status DC Hydromorphone HCl (Dilaudid) 0.5 mg PRN Q10MIN PRN IV SEV PAIN, Second choice; Start 05/21/18 at 09:45; Stop 05/22/18 at 09:44; Status DC Prochlorperazine Edisylate (Compazine) 5 mg PACU PRN PRN IV NAUSEA, MRX1; Start 05/21/18 at 09:45; Stop 05/22/18 at 09:44; Status DC Lidocaine HCl (Glydo (Lidocaine) Jelly) 1 vianney 1X ONCE MM ; Start 05/21/18 at 12:30; Stop 05/21/18 at 12:31; Status DC Propofol 20 ml @ As Directed STK-MED ONCE IV ; Start 05/21/18 at 12:27; Stop 05/21/18 at 12:28; Status DC Dexamethasone Sodium Phosphate (Decadron) 20 mg STK-MED ONCE .ROUTE ; Start 05/21/18 at 12:27; Stop 05/21/18 at 12:28; Status DC Famotidine (Pepcid Vial) 20 mg STK-MED ONCE .ROUTE ; Start 05/21/18 at 12:27; Stop 05/21/18 at 12:28; Status DC Lidocaine HCl (Lidocaine Pf 2% Vial) 5 ml STK-MED ONCE .ROUTE ; Start 05/21/18 at 12:27; Stop 05/21/18 at 12:28; Status DC Ondansetron HCl (Zofran) 4 mg STK-MED ONCE .ROUTE ; Start 05/21/18 at 12:27; Stop 05/21/18 at 12:28; Status DC Fentanyl Citrate (Fentanyl 2ml Vial) 100 mcg STK-MED ONCE .ROUTE ; Start 05/21/18 at 12:27; Stop 05/21/18 at 12:28; Status DC Bacitracin 01343 unit/Sodium Chloride 500 ml @ 500 mls/hr 1X ONCE IRR ; Start 05/21/18 at 12:40; Stop 05/21/18 at 13:39; Status DC Cefazolin Sodium 1 gm/Sodium Chloride 500 ml @ 500 mls/hr 1X ONCE IRR ; Start 05/21/18 at 12:40; Stop 05/21/18 at 13:39; Status DC Lidocaine HCl 20 ml STK-MED ONCE .ROUTE ; Start 05/21/18 at 11:42; Stop 05/21/18 at 12:42; Status DC Esmolol HCl (Brevibloc) 100 mg STK-MED ONCE IVP ; Start 05/21/18 at 13:01; Stop 05/21/18 at 13:02; Status DC Esmolol HCl (Brevibloc) 100 mg STK-MED ONCE IVP ; Start 05/21/18 at 14:22; Stop 05/21/18 at 14:23; Status DC Neomycin/ Polymyxin/ Bacitracin (Triple Antibiotic Ointment) 1 pkt STK-MED ONCE TP Last administered on 05/21/18at 14:41; Start 05/21/18 at 13:38; Stop 05/21/18 at 14:38; Status DC Sevoflurane (Ultane) 90 ml STK-MED ONCE IH ; Start 05/21/18 at 14:40; Stop 05/21/18 at 14:41; Status DC Naloxone HCl (Narcan) 0.4 mg PRN Q2MIN PRN IV SEE INSTRUCTIONS; Start 05/21/18 at 15:00 Sodium Chloride 1,000 ml @ 25 mls/hr Q24H IV ; Start 05/21/18 at 14:57; Stop 05/24/18 at 07:00; Status DC Morphine Sulfate 30 ml @ 0 mls/hr CONT PRN PRN IV PER PROTOCOL; Start 05/21/18 at 15:00 Labetalol HCl (Normodyne Iv Push) 20 mg PRN Q2HR PRN IVP HYPERTENSION, SEE COMMENTS Last administered on 05/24/18at 00:15; Start 05/21/18 at 15:30 Labetalol HCl (Normodyne Iv Push) 5 mg 1X PACU PRN IVP tachycardia and HTN Last administered on 05/21/18at 15:30; Start 05/21/18 at 15:30; Stop 05/22/18 at 09:09; Status DC Insulin Glargine (Lantus) 3 units 1X ONCE SQ Last administered on 05/21/18at 22:00; Start 05/21/18 at 22:00; Stop 05/22/18 at 01:31; Status DC Aspirin (Ecotrin) 81 mg DAILYWBKFT PO Last administered on 05/28/18at 08:47; Start 05/23/18 at 08:00 Digoxin (Lanoxin) 250 mcg 1X ONCE IV Last administered on 05/22/18at 12:28; Start 05/22/18 at 12:30; Stop 05/22/18 at 12:31; Status DC Warfarin Sodium (Coumadin) 6 mg DAILY16 PO ; Start 05/22/18 at 16:00; Stop 05/22/18 at 16:00; Status DC Warfarin Sodium (Coumadin) 2.5 mg 3X/WEEK PO ; Start 05/23/18 at 09:00; Status UNV Warfarin Sodium (Coumadin Per Physician) 1 each PRN DAILY PRN MC SEE COMMENTS; Start 05/22/18 at 14:45; Stop 05/22/18 at 14:57; Status DC Warfarin Sodium (Coumadin Per Pharmacy) 1 each PRN DAILY PRN MC SEE COMMENTS L ast administered on 05/27/18at 11:30; Start 05/22/18 at 15:00 Warfarin Sodium (Coumadin) 4 mg 1X WARF ONCE PO Last administered on 05/22/18at 16:19; Start 05/22/18 at 16:00; Stop 05/22/18 at 16:01; Status DC Warfarin Sodium (Coumadin) 4 mg 1X WARF ONCE PO ; Start 05/23/18 at 16:00; Stop 05/23/18 at 16:01; Status DC Ringer's Solution 1,000 ml @ 75 mls/hr [id number] IV ; Start 05/23/18 at 13:45; Status Cancel Ringer's Solution 1,000 ml @ 75 mls/hr [id number] IV Last administered on 05/27/18at 00:43; Start 05/23/18 at 14:00 Insulin Human Lispro (HumaLOG) 7 units DAILYWBKFT SQ ; Start 05/24/18 at 08:00; Stop 05/25/18 at 12:44; Status DC Dextrose (Dextrose 50%-Water Syringe) 25 gm 1X ONCE IV Last administered on 05/23/18at 13:15; Start 05/23/18 at 17:45; Stop 05/23/18 at 17:46; Status DC Meropenem 500 mg/ Sodium Chloride 50 ml @ 100 mls/hr Q6HRS IV Last administered on 05/28/18at 11:14; Start 05/24/18 at 12:00 Warfarin Sodium (Coumadin) 6 mg 1X WARF ONCE PO Last administered on 05/24/18at 15:33; Start 05/24/18 at 16:00; Stop 05/24/18 at 16:01; Status DC Insulin Human Lispro (HumaLOG) 3 units DAILYWBKFT SQ Last administered on 05/28/18at 09:06; Start 05/26/18 at 08:00 Warfarin Sodium (Coumadin) 6 mg 1X WARF ONCE PO Last administered on 05/25/18at 16:04; Start 05/25/18 at 16:00; Stop 05/25/18 at 16:01; Status DC Polyethylene Glycol (miraLAX PACKET) 17 gm DAILY PO Last administered on 05/28/18at 08:49; Start 05/26/18 at 14:00 Warfarin Sodium (Coumadin) 7.5 mg 1X WARF ONCE PO Last administered on 05/27/18at 17:56; Start 05/27/18 at 16:00; Stop 05/27/18 at 16:01; Status DC Micafungin Sodium 100 mg/Dextrose 100 ml @ 100 mls/hr Q24H IV Last administered on 05/28/18at 12:01; Start 05/27/18 at 12:00 Active Scripts Active Digoxin 125 Mcg Tablet 125 Mcg PO DAILY Furosemide 40 Mg Tablet 40 Mg PO DAILY Metoprolol Tartrate 50 Mg Tablet 50 Mg PO BID [Warfarin Sodium] 1 EACH Each 1 Each MC PRN DAILY PRN Lisinopril 20 Mg Tablet 20 Mg PO DAILY Duoneb 0.5-3(2.5) Mg/3 Ml (Albuterol/Ipratropium) 3 Ml Ampul.neb 3 Ml NEB Q4HRS W/A 30 Days Hydralazine Hcl 10 Mg Tablet 10 Mg PO TID Reported Zonisamide 100 Mg Capsule 400 Mg PO DAILY Percocet 5-325 Mg Tablet (Oxycodone/Acetaminophen) 1 Each Tablet 1 Tab PO PRN Q4HRS PRN Multivitamins (Multivitamin) 1 Each Tablet 1 Tab PO DAILY Levetiracetam 250 Mg Tablet 1,250 Mg PO BID Novolin N (Nph, Human Insulin Isophane) 100 Unit/1 Ml Vial Unknown Dose SQ Atorvastatin Calcium 80 Mg Tablet 1 Tab PO DAILY Acetaminophen 500 Mg Tablet 1 Tab PO PRN Q6HRS PRN Albuterol Sulfate Hfa Inhaler (Albuterol Sulfate) 8.5 Gm Hfa.aer.ad 2 Puff IH PRN Q6HRS PRN Aspirin Ec (Aspirin) 325 Mg Tablet.dr 81 Mg PO DAILY Crestor (Rosuvastatin Calcium) 40 Mg Tablet 40 Mg PO DAILY Warfarin Sodium 5 Mg Tablet 6 Mg PO DAILY Warfarin Sodium 2.5 Mg Tablet 2.5 Mg PO 3X/WEEK monday,monday, Gabapentin (Gabapentin) 300 Mg Capsule 300 Mg PO DAILY Risperidone 1 Mg Tablet 1 Mg PO HS Novolog (Insulin Aspart) 100 Unit/1 Ml Vial 10 Unit SQ DAILYAC Oxycodone-Acetaminophen 10-325 (Oxycodone Hcl/Acetaminophen) 1 Each Tablet 1 Each PO PRN Q6HRS Potassium 99 Mg Tablet 20 Meq PO DAILY Prednisone (Prednisone) 10 Mg Tablet 10 Mg PO DAILY Metformin Hcl 500 Mg Tablet 1,000 Mg PO BIDBFRMEAL Vitals/I & O Vital Sign - Last 24 Hours 05/27/18 05/27/18 05/27/18 05/27/18 12:50 15:00 16:56 19:25 Temp 98.8 99.2 98.8 99.2 Pulse 73 66 61 Resp 18 18 B/P (MAP) 111/36 122/59 (80) 113/39 (63) Pulse Ox 97 93 O2 Delivery Nasal Cannula Nasal Cannula Nasal Cannula O2 Flow Rate 2.0 3.0 2.0 05/27/18 05/27/18 05/27/18 05/27/18 20:00 20:58 21:00 21:29 Pulse 61 B/P (MAP) 113/39 Pulse Ox 97 97 O2 Delivery Nasal Cannula Nasal Cannula Nasal Cannula O2 Flow Rate 2.0 3.0 3.0 05/27/18 05/27/18 05/28/1819 23:10 23:35 00:08 00:35 Temp 100.2 100.2 Pulse 116 116 Resp 18 B/P (MAP) 123/54 (77) 123/54 Pulse Ox 96 97 97 O2 Delivery Nasal Cannula Nasal Cannula Nasal Cannula O2 Flow Rate 2.0 3.0 3.0 05/28/18 05/28/18 05/28/18 05/28/18 03:41 05:36 06:06 07:45 Temp 100.4 98.6 100.4 98.6 Pulse 49 66 Resp 18 22 B/P (MAP) 98/39 (58) 107/59 (75) Pulse Ox 93 93 93 96 O2 Delivery Nasal Cannula Nasal Cannula Nasal Cannula Nasal Cannula O2 Flow Rate 2.0 2.0 2.0 2.0 05/28/18 05/28/18 05/28/18 05/28/18 07:58 08:46 08:49 10:54 Temp 99.0 99.0 Pulse 66 66 57 Resp 20 B/P (MAP) 107/59 107/59 143/56 (85) Pulse Ox 98 O2 Delivery Nasal Cannula Nasal Cannula O2 Flow Rate 3.0 2.0 05/28/18 05/28/18 12:03 12:07 Resp 16 Pulse Ox 98 99 O2 Delivery Nasal Cannula Nasal Cannula O2 Flow Rate 2.0 3.0 Intake and Output 05/27/18 05/27/18 05/28/18 14:59 22:59 06:59 Intake Total 50 ml 50 ml Output Total 300 ml 400 ml 700 ml Balance -300 ml -350 ml -650 ml MARCIA NOLEN MD May 28, 2018 12:22
--- NOTE | 2018-05-28 12:54 | PDOC ---
PROGRESS NOTES Chief Complaint Chief Complaint Severe sepsis cellulitis w/ gangrenous toes MRSA bacteremia (4 of 4 bottles) with sepsis, POA source //foot infection -CRYSTAL done no vegetations 05/21; BC from 05/20 & 05/21 neg A. 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 A neoplastic etiology cannot be excluded and CT follow-up may be prudent. Small bilateral pleural effusions with mild bibasilar atelectasis. Distended gallbladder containing material of medium density. 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 ID following still weakness, poor PO intkae PT/OT He was on home hospice, [facility] F/u cultures Blood glucose control Pain control HR control GB SONO home with [facility] when discharged. Vitals Vitals Vital Signs Date Time Temp Pulse Resp B/P (MAP) Pulse Ox O2 Delivery O2 Flow Rate FiO2 05/28/18 12:07 99 Nasal Cannula 3.0 05/28/18 12:03 16 05/28/18 10:54 99.0 57 143/56 (85) 99.0 Physical Exam Physical Exam Propped up in bed, alert, HEENT: Pupils equally round, reactive. Normal conjunctivae. Oral cavity, pharynx pink, dry NECK: Supple. LUNGS: Clear anteriorly HEART: S1 and S2, soft murmur. Irregular. ABDOMEN: Obese, soft and Mild tender with bowel sounds present. GENITOURINARY: Indwelling Crawley in place. 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 Left foot bandaged. SKIN: Warm without rash. No peripheral stigmata. Several tattoos. NEUROLOGIC: Alert, coop General: Alert, Cooperative, No acute distress Heart: Regular rate, Other (AFIB) Lungs: Clear Abdomen: Soft, No tenderness Extremities: No cyanosis, Other (right BKA dressing, LLE dressing) Skin: No significant lesion, Other (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 and 2 gangrenous toes on the right, chronic hyperpigmentation bilateral shins and foot) Labs LABS Laboratory Tests Test 05/27/18 17:14 05/27/18 19:50 05/28/18 07:53 05/28/18 08:15 Glucose (Fingerstick) 118 mg/dL (70-99) 104 mg/dL (70-99) 121 mg/dL (70-99) White Blood Count 11.4 x10^3/uL (4.0-11.0) Red Blood Count 2.85 x10^6/uL (4.30-5.70) Hemoglobin 7.5 g/dL (13.0-17.5) Hematocrit 24.1 % (39.0-53.0) Mean Corpuscular Volume 84 fL (79-100) Mean Corpuscular Hemoglobin 26 pg (25-35) Mean Corpuscular Hemoglobin Concent 31 g/dL (31-37) Red Cell Distribution Width 16.1 % (11.5-14.5) Platelet Count 294 x10^3/uL (140-400) Neutrophils (%) (Auto) 83 % (31-73) Lymphocytes (%) (Auto) 5 % (24-48) Monocytes (%) (Auto) 10 % (0-9) Eosinophils (%) (Auto) 2 % (0-3) Basophils (%) (Auto) 0 % (0-3) Neutrophils # (Auto) 9.4 x10^3uL (1.8-7.7) Lymphocytes # (Auto) 0.6 x10^3/uL (1.0-4.8) Monocytes # (Auto) 1.1 x10^3/uL (0.0-1.1) Eosinophils # (Auto) 0.2 x10^3/uL (0.0-0.7) Basophils # (Auto) 0.0 x10^3/uL (0.0-0.2) Prothrombin Time 21.1 SEC (11.7-14.0) Prothromb Time International Ratio 1.9 (0.8-1.1) Sodium Level 138 mmol/L (136-145) Potassium Level 4.5 mmol/L (3.5-5.1) Chloride Level 104 mmol/L (98-107) Carbon Dioxide Level 25 mmol/L (21-32) Anion Gap 9 (6-14) Blood Urea Nitrogen 20 mg/dL (8-26) Creatinine 1.4 mg/dL (0.7-1.3) Estimated GFR (Cockcroft-Gault) 49.3 BUN/Creatinine Ratio 14 (6-20) Glucose Level 127 mg/dL (70-99) Calcium Level 8.2 mg/dL (8.5-10.1) Total Bilirubin 0.5 mg/dL (0.2-1.0) Aspartate Amino Transf (AST/SGOT) 72 U/L (15-37) Alanine Aminotransferase (ALT/SGPT) 27 U/L (16-63) Alkaline Phosphatase 89 U/L (46-116) Total Protein 6.2 g/dL (6.4-8.2) Albumin 1.5 g/dL (3.4-5.0) Albumin/Globulin Ratio 0.3 (1.0-1.7) Test 05/28/18 11:48 Glucose (Fingerstick) 139 mg/dL (70-99) Review of Systems Review of Systems weakeness, lethargy Assessment and Plan Assessmemt and Plan Problems Medical Problems: (1) Fever Status: Acute (2) Gangrene of toe Status: Acute (3) Leukocytosis Status: Acute (4) Severe sepsis Status: Acute Comment Review of Relevant I have reviewed the following items navi (where applicable) has been applied. Labs Laboratory Tests Test 05/26/18 17:25 05/26/18 21:24 05/27/18 04:35 05/27/18 07:56 Glucose (Fingerstick) 193 mg/dL (70-99) 165 mg/dL (70-99) 103 mg/dL (70-99) White Blood Count 12.2 x10^3/uL (4.0-11.0) Red Blood Count 2.94 x10^6/uL (4.30-5.70) Hemoglobin 7.9 g/dL (13.0-17.5) Hematocrit 25.1 % (39.0-53.0) Mean Corpuscular Volume 85 fL (79-100) Mean Corpuscular Hemoglobin 27 pg (25-35) Mean Corpuscular Hemoglobin Concent 32 g/dL (31-37) Red Cell Distribution Width 16.4 % (11.5-14.5) Platelet Count 255 x10^3/uL (140-400) Neutrophils (%) (Auto) 82 % (31-73) Lymphocytes (%) (Auto) 6 % (24-48) Monocytes (%) (Auto) 10 % (0-9) Eosinophils (%) (Auto) 2 % (0-3) Basophils (%) (Auto) 0 % (0-3) Neutrophils # (Auto) 10.0 x10^3uL (1.8-7.7) Lymphocytes # (Auto) 0.7 x10^3/uL (1.0-4.8) Monocytes # (Auto) 1.2 x10^3/uL (0.0-1.1) Eosinophils # (Auto) 0.2 x10^3/uL (0.0-0.7) Basophils # (Auto) 0.0 x10^3/uL (0.0-0.2) Prothrombin Time 18.1 SEC (11.7-14.0) Prothromb Time International Ratio 1.5 (0.8-1.1) Sodium Level 135 mmol/L (136-145) Potassium Level 4.4 mmol/L (3.5-5.1) Chloride Level 101 mmol/L (98-107) Carbon Dioxide Level 26 mmol/L (21-32) Anion Gap 8 (6-14) Blood Urea Nitrogen 20 mg/dL (8-26) Creatinine 1.5 mg/dL (0.7-1.3) Estimated GFR (Cockcroft-Gault) 45.5 Glucose Level 135 mg/dL (70-99) Calcium Level 8.1 mg/dL (8.5-10.1) Total Bilirubin 0.4 mg/dL (0.2-1.0) Direct Bilirubin 0.3 mg/dL (0.0-0.2) Aspartate Amino Transf (AST/SGOT) 50 U/L (15-37) Alanine Aminotransferase (ALT/SGPT) 25 U/L (16-63) Alkaline Phosphatase 80 U/L (46-116) Total Protein 5.2 g/dL (6.4-8.2) Albumin 1.6 g/dL (3.4-5.0) Lipase 34 U/L (73-393) Procalcitonin 0.27 ng/mL (0.00-0.10) Thyroid Stimulating Hormone (TSH) 0.878 uIU/mL (0.358-3.74) Test 05/27/18 11:56 05/27/18 17:14 05/27/18 19:50 05/28/18 07:53 Glucose (Fingerstick) 132 mg/dL (70-99) 118 mg/dL (70-99) 104 mg/dL (70-99) 121 mg/dL (70-99) Test 05/28/18 08:15 05/28/18 11:48 White Blood Count 11.4 x10^3/uL (4.0-11.0) Red Blood Count 2.85 x10^6/uL (4.30-5.70) Hemoglobin 7.5 g/dL (13.0-17.5) Hematocrit 24.1 % (39.0-53.0) Mean Corpuscular Volume 84 fL (79-100) Mean Corpuscular Hemoglobin 26 pg (25-35) Mean Corpuscular Hemoglobin Concent 31 g/dL (31-37) Red Cell Distribution Width 16.1 % (11.5-14.5) Platelet Count 294 x10^3/uL (140-400) Neutrophils (%) (Auto) 83 % (31-73) Lymphocytes (%) (Auto) 5 % (24-48) Monocytes (%) (Auto) 10 % (0-9) Eosinophils (%) (Auto) 2 % (0-3) Basophils (%) (Auto) 0 % (0-3) Neutrophils # (Auto) 9.4 x10^3uL (1.8-7.7) Lymphocytes # (Auto) 0.6 x10^3/uL (1.0-4.8) Monocytes # (Auto) 1.1 x10^3/uL (0.0-1.1) Eosinophils # (Auto) 0.2 x10^3/uL (0.0-0.7) Basophils # (Auto) 0.0 x10^3/uL (0.0-0.2) Prothrombin Time 21.1 SEC (11.7-14.0) Prothromb Time International Ratio 1.9 (0.8-1.1) Sodium Level 138 mmol/L (136-145) Potassium Level 4.5 mmol/L (3.5-5.1) Chloride Level 104 mmol/L (98-107) Carbon Dioxide Level 25 mmol/L (21-32) Anion Gap 9 (6-14) Blood Urea Nitrogen 20 mg/dL (8-26) Creatinine 1.4 mg/dL (0.7-1.3) Estimated GFR (Cockcroft-Gault) 49.3 BUN/Creatinine Ratio 14 (6-20) Glucose Level 127 mg/dL (70-99) Calcium Level 8.2 mg/dL (8.5-10.1) Total Bilirubin 0.5 mg/dL (0.2-1.0) Aspartate Amino Transf (AST/SGOT) 72 U/L (15-37) Alanine Aminotransferase (ALT/SGPT) 27 U/L (16-63) Alkaline Phosphatase 89 U/L (46-116) Total Protein 6.2 g/dL (6.4-8.2) Albumin 1.5 g/dL (3.4-5.0) Albumin/Globulin Ratio 0.3 (1.0-1.7) Glucose (Fingerstick) 139 mg/dL (70-99) Laboratory Tests Test 05/27/18 17:14 05/27/18 19:50 05/28/18 07:53 05/28/18 08:15 Glucose (Fingerstick) 118 mg/dL (70-99) 104 mg/dL (70-99) 121 mg/dL (70-99) White Blood Count 11.4 x10^3/uL (4.0-11.0) Red Blood Count 2.85 x10^6/uL (4.30-5.70) Hemoglobin 7.5 g/dL (13.0-17.5) Hematocrit 24.1 % (39.0-53.0) Mean Corpuscular Volume 84 fL (79-100) Mean Corpuscular Hemoglobin 26 pg (25-35) Mean Corpuscular Hemoglobin Concent 31 g/dL (31-37) Red Cell Distribution Width 16.1 % (11.5-14.5) Platelet Count 294 x10^3/uL (140-400) Neutrophils (%) (Auto) 83 % (31-73) Lymphocytes (%) (Auto) 5 % (24-48) Monocytes (%) (Auto) 10 % (0-9) Eosinophils (%) (Auto) 2 % (0-3) Basophils (%) (Auto) 0 % (0-3) Neutrophils # (Auto) 9.4 x10^3uL (1.8-7.7) Lymphocytes # (Auto) 0.6 x10^3/uL (1.0-4.8) Monocytes # (Auto) 1.1 x10^3/uL (0.0-1.1) Eosinophils # (Auto) 0.2 x10^3/uL (0.0-0.7) Basophils # (Auto) 0.0 x10^3/uL (0.0-0.2) Prothrombin Time 21.1 SEC (11.7-14.0) Prothromb Time International Ratio 1.9 (0.8-1.1) Sodium Level 138 mmol/L (136-145) Potassium Level 4.5 mmol/L (3.5-5.1) Chloride Level 104 mmol/L (98-107) Carbon Dioxide Level 25 mmol/L (21-32) Anion Gap 9 (6-14) Blood Urea Nitrogen 20 mg/dL (8-26) Creatinine 1.4 mg/dL (0.7-1.3) Estimated GFR (Cockcroft-Gault) 49.3 BUN/Creatinine Ratio 14 (6-20) Glucose Level 127 mg/dL (70-99) Calcium Level 8.2 mg/dL (8.5-10.1) Total Bilirubin 0.5 mg/dL (0.2-1.0) Aspartate Amino Transf (AST/SGOT) 72 U/L (15-37) Alanine Aminotransferase (ALT/SGPT) 27 U/L (16-63) Alkaline Phosphatase 89 U/L (46-116) Total Protein 6.2 g/dL (6.4-8.2) Albumin 1.5 g/dL (3.4-5.0) Albumin/Globulin Ratio 0.3 (1.0-1.7) Test 05/28/18 11:48 Glucose (Fingerstick) 139 mg/dL (70-99) Microbiology 05/24/18 Blood Culture - Preliminary, Resulted NO GROWTH AFTER 4 DAYS 05/19/18 Urine Culture - Final, Complete 05/19/18 Urine Culture Result 1 (FELICITA) - Final, Complete 05/19/18 Anaerobic/Aerobic Culture - Final, Complete 05/19/18 Anaerobic Culture Result 1 (FELICITA) - Final, Complete 05/19/18 Aerobic Culture - Final, Complete 05/19/18 Aerobic Culture Result 1 (FELICITA) - Final, Complete 05/19/18 Aerobic Culture Result 2 (FELICITA) - Final, Complete 05/19/18 Antimicrobic Susceptibility - Final, Complete 05/19/18 Gram Stain - Final, Complete 05/19/18 Gram Stain Result 1 (FELICITA) - Final, Complete 05/19/18 Gram Stain Result 2 (FELICITA) - Final, Complete Medications Current Medications Sodium Chloride 1,000 ml @ 2,190 mls/hr Q28M IV Last administered on 05/18/18at 14:36; Start 05/18/18 at 12:52; Stop 05/18/18 at 13:52; Status DC Piperacillin Sod/ Tazobactam Sod 4.5 gm/Sodium Chloride 100 ml @ 200 mls/hr 1X ONCE IV Last administered on 05/18/18at 14:34; Start 05/18/18 at 13:00; Stop 05/18/18 at 13:29; Status DC Vancomycin HCl (Vanco Per Pharmacy) 1 each 1X ONCE MC Last administered on 05/18/18at 13:00; Start 05/18/18 at 13:00; Stop 05/18/18 at 13:11; Status DC Vancomycin HCl 2 gm/Sodium Chloride 500 ml @ 250 mls/hr 1X ONCE IV Last administered on 05/18/18at 15:28; Start 05/18/18 at 13:15; Stop 05/18/18 at 15:14; Status DC Ondansetron HCl (Zofran) 4 mg PRN Q8HRS PRN IV NAUSEA/VOMITING; Start 05/18/18 at 14:45; Stop 05/18/18 at 15:28; Status DC Fentanyl Citrate (Fentanyl 2ml Vial) 50 mcg PRN Q1HR PRN IV PAIN; Start 05/18/18 at 14:45; Stop 05/19/18 at 11:50; Status DC Sodium Chloride 1,000 ml @ 80 mls/hr [id number] IV ; Start 05/18/18 at 14:43; Stop 05/18/18 at 18:42; Status DC Acetaminophen (Tylenol) 650 mg 1X ONCE PO Last administered on 05/18/18at 15:29; Start 05/18/18 at 15:30; Stop 05/18/18 at 15:31; Status DC Ondansetron HCl (Zofran) 4 mg PRN Q6HRS PRN IV NAUSEA/VOMITING Last administered on 05/24/18at 06:14; Start 05/18/18 at 15:30 Diltiazem HCl (Cardizem Iv Push) 10 mg 1X ONCE IVP ; Start 05/18/18 at 15:30; Stop 05/18/18 at 15:31; Status DC Acetaminophen (Tylenol) 500 mg PRN Q6HRS PRN PO MILD PAIN / TEMP; Start 05/18/18 at 15:30; Stop 05/18/18 at 16:14; Status DC Acetaminophen/ Codeine Phosphate (Tylenol #3) 1 tab PRN Q6HRS PRN PO MODERATE PAIN Last administered on 05/26/18at 21:56; Start 05/18/18 at 15:30 Morphine Sulfate (Morphine Sulfate) 2 mg PRN Q2HR PRN IV PAIN Last administered on 05/28/18at 12:03; Start 05/18/18 at 15:30 Oxycodone/ Acetaminophen (Percocet 5/325) 1 tab PRN Q4HRS PRN PO SEVERE PAIN Last administered on 05/27/18at 12:49; Start 05/18/18 at 15:30 Albuterol Sulfate (Ventolin Hfa) 2 puff PRN Q6HRS PRN IH SHORTNESS OF BREATH; Start 05/18/18 at 15:30; Status UNV Digoxin (Lanoxin) 125 mcg DAILY PO ; Start 05/19/18 at 09:00; Stop 05/19/18 at 09:00; Status DC Furosemide (Lasix) 40 mg DAILY PO Last administered on 05/28/18 08:47; Start 05/19/18 at 09:00 Gabapentin (Neurontin) 300 mg DAILY PO Last administered on 05/28/18 08:50; Start 05/19/18 at 09:00 Lisinopril (Prinivil) 20 mg DAILY PO Last administered on 05/19/18at 10:14; Start 05/19/18 at 09:00; Stop 05/24/18 at 15:20; Status DC Metoprolol Tartrate (Lopressor) 50 mg BID PO Last administered on 05/28/18 08:46; Start 05/18/18 at 21:00 Oxycodone/ Acetaminophen (Percocet 10/325) 1 tab PRN Q6HRS PRN PO SEVERE PAIN (2ND Choice) Last administered on 05/27/18 23:35; Start 05/18/18 at 15:30 Oxycodone/ Acetaminophen (Percocet 5/325) 1 tab PRN Q4HRS PRN PO PAIN; Start 05/18/18 at 15:30; Status UNV Acetaminophen (Tylenol) 500 mg PRN Q6HRS PRN PO MILD PAIN / TEMP Last administered on 05/27/18 23:35; Start 05/18/18 at 16:15 Atorvastatin Calcium (Lipitor) 80 mg QHS PO Last administered on 05/27/18 21:33; Start 05/18/18 at 21:00 Hydralazine HCl (Apresoline) 10 mg TID PO Last administered on 05/28/18 08:49; Start 05/18/18 at 16:00 Insulin Human Lispro (HumaLOG) 10 units DAILYWBKFT SQ Last administered on 05/23/18 08:58; Start 05/18/18 at 17:00; Stop 05/23/18 at 14:25; Status DC Levetiracetam (Keppra) 1,250 mg BID PO Last administered on 05/28/18 08:45; Start 05/18/18 at 21:00 Metformin HCl (Glucophage) 1,000 mg BIDWMEALS PO Last administered on 05/28/18 08:48; Start 05/18/18 at 17:00 Multivitamins (Thera M Plus) 1 tab DAILY PO Last administered on 05/28/18 08:48; Start 05/19/18 at 09:00 Potassium Chloride (Klor-Con) 20 meq DAILYWBKFT PO Last administered on 05/28/18 08:00; Start 05/19/18 at 08:00 Risperidone (RisperDAL) 1 mg QHS PO Last administered on 05/27/18 21:32; Start 05/18/18 at 21:00 Non-Formulary Medication (Rosuvastatin Calcium (Crestor)) 40 mg DAILY PO ; Start 05/19/18 at 09:00; Status UNV Zonisamide (Zonegran) 400 mg DAILY PO Last administered on 05/28/18at 08:46; Start 05/19/18 at 09:00 Albuterol/ Ipratropium (Duoneb) 3 ml Q4HRS W/A NEB Last administered on 05/28/18at 12:05; Start 05/18/18 at 18:00 Insulin Human Lispro (HumaLOG) 0-9 UNITS TIDWMEALS SQ Last administered on 05/26/18at 18:04; Start 05/18/18 at 17:00 Dextrose (Dextrose 50%-Water Syringe) 12.5 gm PRN Q15MIN PRN IV SEE COMMENTS Last administered on 05/25/18at 06:04; Start 05/18/18 at 15:30 Albuterol Sulfate (Ventolin Neb Soln) 2.5 mg PRN Q6HRS PRN NEB SHORTNESS OF BREATH Last administered on 05/26/18at 08:35; Start 05/18/18 at 15:45 Piperacillin Sod/ Tazobactam Sod 3.375 gm/Sodium Chloride 50 ml @ 100 mls/hr Q6HRS IV Last administered on 05/24/18at 05:33; Start 05/18/18 at 18:00; Stop 05/24/18 at 08:09; Status DC Potassium Chloride (Klor-Con) 40 meq 1X ONCE PO Last administered on 05/19/18at 10:14; Start 05/19/18 at 08:30; Stop 05/19/18 at 08:31; Status DC Heparin Sodium (Porcine) (Heparin Sodium) 5,000 unit Q8HRS SQ ; Start 05/19/18 at 14:00; Stop 05/19/18 at 14:00; Status DC Furosemide (Lasix) 40 mg 1X ONCE IVP Last administered on 05/19/18at 10:12; Start 05/19/18 at 08:45; Stop 05/19/18 at 08:46; Status DC Phytonadione (Vitamin K Ampule) 10 mg 1X ONCE SQ Last administered on 05/19/18at 10:16; Start 05/19/18 at 10:00; Stop 05/19/18 at 10:01; Status DC Vancomycin HCl (Vanco Per Pharmacy) 1 each PRN DAILY PRN MC SEE COMMENTS Last administered on 05/19/18at 10:32; Start 05/19/18 at 10:00; Stop 05/20/18 at 10:42; Status DC Phytonadione (Vitamin K Ampule) 10 mg 1X ONCE SQ ; Start 05/19/18 at 10:15; Stop 05/19/18 at 10:16; Status UNV Vancomycin HCl 1.75 gm/Sodium Chloride 500 ml @ 250 mls/hr Q24H IV Last administered on 05/19/18at 16:59; Start 05/19/18 at 16:00; Stop 05/20/18 at 10:42; Status DC Vancomycin HCl (Vancomycin Trough Level) 1 each 1X ONCE MC ; Start 05/20/18 at 16:30; Stop 05/20/18 at 16:30; Status DC Acetaminophen (Tylenol Supp) 650 mg PRN Q6HRS PRN VT MILD PAIN / TEMP Last administered on 05/23/18at 23:33; Start 05/20/18 at 01:15 Sodium Chloride 500 ml @ 333 mls/hr 1X ONCE IV Last administered on 05/20/18at 01:14; Start 05/20/18 at 01:15; Stop 05/20/18 at 02:45; Status DC Phytonadione 5 mg/ Dextrose 50.5 ml @ 101 mls/hr 1X ONCE IV Last administered on 05/20/18at 10:08; Start 05/20/18 at 10:30; Stop 05/20/18 at 10:59; Status DC Daptomycin 590 mg/ Sodium Chloride 50 ml @ 100 mls/hr Q24H IV Last administered on 05/27/18at 12:48; Start 05/20/18 at 12:00 Ondansetron HCl (Zofran) 4 mg PRN Q6HRS PRN IV NAUSEA/VOMITING; Start 05/21/18 at 09:45; Stop 05/22/18 at 09:44; Status DC Fentanyl Citrate (Fentanyl 2ml Vial) 25 mcg PRN Q5MIN PRN IV MILD PAIN; Start 05/21/18 at 09:45; Stop 05/22/18 at 09:44; Status DC Fentanyl Citrate (Fentanyl 2ml Vial) 50 mcg PRN Q5MIN PRN IV MODERATE TO SEVERE PAIN; Start 05/21/18 at 09:45; Stop 05/22/18 at 09:44; Status DC Morphine Sulfate (Morphine Sulfate) 1 mg PRN Q10MIN PRN IV SEVERE PAIN; Start 05/21/18 at 09:45; Stop 05/22/18 at 09:44; Status DC Ringer's Solution 1,000 ml @ 30 mls/hr Q24H IV ; Start 05/21/18 at 09:39; Stop 05/22/18 at 00:37; Status DC Lidocaine HCl (Xylocaine-Mpf 1% 2ml Vial) 2 ml 1X PRN PRN ID IV START; Start 05/21/18 at 09:45; Stop 05/22/18 at 09:44; Status DC Hydromorphone HCl (Dilaudid) 0.5 mg PRN Q10MIN PRN IV SEV PAIN, Second choice; Start 05/21/18 at 09:45; Stop 05/22/18 at 09:44; Status DC Prochlorperazine Edisylate (Compazine) 5 mg PACU PRN PRN IV NAUSEA, MRX1; Start 05/21/18 at 09:45; Stop 05/22/18 at 09:44; Status DC Lidocaine HCl (Glydo (Lidocaine) Jelly) 1 vianney 1X ONCE MM ; Start 05/21/18 at 12:30; Stop 05/21/18 at 12:31; Status DC Propofol 20 ml @ As Directed STK-MED ONCE IV ; Start 05/21/18 at 12:27; Stop 05/21/18 at 12:28; Status DC Dexamethasone Sodium Phosphate (Decadron) 20 mg STK-MED ONCE .ROUTE ; Start 05/21/18 at 12:27; Stop 05/21/18 at 12:28; Status DC Famotidine (Pepcid Vial) 20 mg STK-MED ONCE .ROUTE ; Start 05/21/18 at 12:27; Stop 05/21/18 at 12:28; Status DC Lidocaine HCl (Lidocaine Pf 2% Vial) 5 ml STK-MED ONCE .ROUTE ; Start 05/21/18 at 12:27; Stop 05/21/18 at 12:28; Status DC Ondansetron HCl (Zofran) 4 mg STK-MED ONCE .ROUTE ; Start 05/21/18 at 12:27; Stop 05/21/18 at 12:28; Status DC Fentanyl Citrate (Fentanyl 2ml Vial) 100 mcg STK-MED ONCE .ROUTE ; Start 05/21/18 at 12:27; Stop 05/21/18 at 12:28; Status DC Bacitracin 47334 unit/Sodium Chloride 500 ml @ 500 mls/hr 1X ONCE IRR ; Start 05/21/18 at 12:40; Stop 05/21/18 at 13:39; Status DC Cefazolin Sodium 1 gm/Sodium Chloride 500 ml @ 500 mls/hr 1X ONCE IRR ; Start 05/21/18 at 12:40; Stop 05/21/18 at 13:39; Status DC Lidocaine HCl 20 ml STK-MED ONCE .ROUTE ; Start 05/21/18 at 11:42; Stop 05/21/18 at 12:42; Status DC Esmolol HCl (Brevibloc) 100 mg STK-MED ONCE IVP ; Start 05/21/18 at 13:01; Stop 05/21/18 at 13:02; Status DC Esmolol HCl (Brevibloc) 100 mg STK-MED ONCE IVP ; Start 05/21/18 at 14:22; Stop 05/21/18 at 14:23; Status DC Neomycin/ Polymyxin/ Bacitracin (Triple Antibiotic Ointment) 1 pkt STK-MED ONCE TP Last administered on 05/21/18at 14:41; Start 05/21/18 at 13:38; Stop 05/21/18 at 14:38; Status DC Sevoflurane (Ultane) 90 ml STK-MED ONCE IH ; Start 05/21/18 at 14:40; Stop 05/21/18 at 14:41; Status DC Naloxone HCl (Narcan) 0.4 mg PRN Q2MIN PRN IV SEE INSTRUCTIONS; Start 05/21/18 at 15:00 Sodium Chloride 1,000 ml @ 25 mls/hr Q24H IV ; Start 05/21/18 at 14:57; Stop 05/24/18 at 07:00; Status DC Morphine Sulfate 30 ml @ 0 mls/hr CONT PRN PRN IV PER PROTOCOL; Start 05/21/18 at 15:00 Labetalol HCl (Normodyne Iv Push) 20 mg PRN Q2HR PRN IVP HYPERTENSION, SEE COMMENTS Last administered on 05/24/18at 00:15; Start 05/21/18 at 15:30 Labetalol HCl (Normodyne Iv Push) 5 mg 1X PACU PRN IVP tachycardia and HTN Last administered on 05/21/18at 15:30; Start 05/21/18 at 15:30; Stop 05/22/18 at 09:0 9; Status DC Insulin Glargine (Lantus) 3 units 1X ONCE SQ Last administered on 05/21/18at 22:00; Start 05/21/18 at 22:00; Stop 05/22/18 at 01:31; Status DC Aspirin (Ecotrin) 81 mg DAILYWBKFT PO Last administered on 05/28/18at 08:47; Start 05/23/18 at 08:00 Digoxin (Lanoxin) 250 mcg 1X ONCE IV Last administered on 05/22/18at 12:28; Start 05/22/18 at 12:30; Stop 05/22/18 at 12:31; Status DC Warfarin Sodium (Coumadin) 6 mg DAILY16 PO ; Start 05/22/18 at 16:00; Stop 05/22/18 at 16:00; Status DC Warfarin Sodium (Coumadin) 2.5 mg 3X/WEEK PO ; Start 05/23/18 at 09:00; Status UNV Warfarin Sodium (Coumadin Per Physician) 1 each PRN DAILY PRN MC SEE COMMENTS; Start 05/22/18 at 14:45; Stop 05/22/18 at 14:57; Status DC Warfarin Sodium (Coumadin Per Pharmacy) 1 each PRN DAILY PRN MC SEE COMMENTS Last administered on 05/27/18at 11:30; Start 05/22/18 at 15:00 Warfarin Sodium (Coumadin) 4 mg 1X WARF ONCE PO Last administered on 05/22/18at 16:19; Start 05/22/18 at 16:00; Stop 05/22/18 at 16:01; Status DC Warfarin Sodium (Coumadin) 4 mg 1X WARF ONCE PO ; Start 05/23/18 at 16:00; Stop 05/23/18 at 16:01; Status DC Ringer's Solution 1,000 ml @ 75 mls/hr [id number] IV ; Start 05/23/18 at 13:45; Status Cancel Ringer's Solution 1,000 ml @ 75 mls/hr [id number] IV Last administered on 05/27/18at 00:43; Start 05/23/18 at 14:00 Insulin Human Lispro (HumaLOG) 7 units [id number] SQ ; Start 05/24/18 at 08:00; Stop 05/25/18 at 12:44; Status DC Dextrose (Dextrose 50%-Water Syringe) 25 gm 1X ONCE IV Last administered on 05/23/18at 13:15; Start 05/23/18 at 17:45; Stop 05/23/18 at 17:46; Status DC Meropenem 500 mg/ Sodium Chloride 50 ml @ 100 mls/hr Q6HRS IV Last administered on 05/28/18at 11:14; Start 05/24/18 at 12:00 Warfarin Sodium (Coumadin) 6 mg 1X WARF ONCE PO Last administered on 05/24/18at 15:33; Start 05/24/18 at 16:00; Stop 05/24/18 at 16:01; Status DC Insulin Human Lispro (HumaLOG) 3 units DAILYWBKFT SQ Last administered on 05/28/18at 09:06; Start 05/26/18 at 08:00 Warfarin Sodium (Coumadin) 6 mg 1X WARF ONCE PO Last administered on 05/25/18at 16:04; Start 05/25/18 at 16:00; Stop 05/25/18 at 16:01; Status DC Polyethylene Glycol (miraLAX PACKET) 17 gm DAILY PO Last administered on 05/28/18 08:49; Start 05/26/18 at 14:00 Warfarin Sodium (Coumadin) 7.5 mg 1X WARF ONCE PO Last administered on 05/27/18at 17:56; Start 05/27/18 at 16:00; Stop 05/27/18 at 16:01; Status DC Micafungin Sodium 100 mg/Dextrose 100 ml @ 100 mls/hr Q24H IV Last administered on 05/28/18at 12:01; Start 05/27/18 at 12:00 Active Scripts Active Digoxin 125 Mcg Tablet 125 Mcg PO DAILY Furosemide 40 Mg Tablet 40 Mg PO DAILY Metoprolol Tartrate 50 Mg Tablet 50 Mg PO BID [Warfarin Sodium] 1 EACH Each 1 Each MC PRN DAILY PRN Lisinopril 20 Mg Tablet 20 Mg PO DAILY Duoneb 0.5-3(2.5) Mg/3 Ml (Albuterol/Ipratropium) 3 Ml Ampul.neb 3 Ml NEB Q4HRS W/A 30 Days Hydralazine Hcl 10 Mg Tablet 10 Mg PO TID Reported Zonisamide 100 Mg Capsule 400 Mg PO DAILY Percocet 5-325 Mg Tablet (Oxycodone/Acetaminophen) 1 Each Tablet 1 Tab PO PRN Q4HRS PRN Multivitamins (Multivitamin) 1 Each Tablet 1 Tab PO DAILY Levetiracetam 250 Mg Tablet 1,250 Mg PO BID Novolin N (Nph, Human Insulin Isophane) 100 Unit/1 Ml Vial Unknown Dose SQ Atorvastatin Calcium 80 Mg Tablet 1 Tab PO DAILY Acetaminophen 500 Mg Tablet 1 Tab PO PRN Q6HRS PRN Albuterol Sulfate Hfa Inhaler (Albuterol Sulfate) 8.5 Gm Hfa.aer.ad 2 Puff IH PRN Q6HRS PRN Aspirin Ec (Aspirin) 325 Mg Tablet.dr 81 Mg PO DAILY Crestor (Rosuvastatin Calcium) 40 Mg Tablet 40 Mg PO DAILY Warfarin Sodium 5 Mg Tablet 6 Mg PO DAILY Warfarin Sodium 2.5 Mg Tablet 2.5 Mg PO 3X/WEEK monday,monday, Gabapentin (Gabapentin) 300 Mg Capsule 300 Mg PO DAILY Risperidone 1 Mg Tablet 1 Mg PO HS Novolog (Insulin Aspart) 100 Unit/1 Ml Vial 10 Unit SQ DAILYAC Oxycodone-Acetaminophen 10-325 (Oxycodone Hcl/Acetaminophen) 1 Each Tablet 1 Each PO PRN Q6HRS Potassium 99 Mg Tablet 20 Meq PO DAILY Prednisone (Prednisone) 10 Mg Tablet 10 Mg PO DAILY Metformin Hcl 500 Mg Tablet 1,000 Mg PO BIDBFRMEAL Vitals/I & O Vital Sign - Last 24 Hours 05/27/18 05/27/18 05/27/18 05/27/18 15:00 16:56 19:25 20:00 Temp 98.8 99.2 98.8 99.2 Pulse 66 61 Resp 18 18 B/P (MAP) 122/59 (80) 113/39 (63) Pulse Ox 97 93 O2 Delivery Nasal Cannula Nasal Cannula Nasal Cannula Nasal Cannula O2 Flow Rate 2.0 3.0 2.0 2.0 05/27/18 05/27/18 05/27/18 05/27/18 20:58 21:00 21:29 23:10 Temp 100.2 100.2 Pulse 61 116 Resp 18 B/P (MAP) 113/39 123/54 (77) Pulse Ox 97 97 96 O2 Delivery Nasal Cannula Nasal Cannula Nasal Cannula O2 Flow Rate 3.0 3.0 2.0 05/27/18 05/28/18 05/28/18 05/28/18 23:35 00:08 00:35 03:41 Temp 100.4 100.4 Pulse 116 49 Resp 18 B/P (MAP) 123/54 98/39 (58) Pulse Ox 97 97 93 O2 Delivery Nasal Cannula Nasal Cannula Nasal Cannula O2 Flow Rate 3.0 3.0 2.0 05/28/18 05/28/18 05/28/18 05/28/18 05:36 06:06 07:45 07:58 Temp 98.6 98.6 Pulse 66 Resp 22 B/P (MAP) 107/59 (75) Pulse Ox 93 93 96 O2 Delivery Nasal Cannula Nasal Cannula Nasal Cannula Nasal Cannula O2 Flow Rate 2.0 2.0 2.0 3.0 05/28/18 05/28/18 05/28/18 05/28/18 08:46 08:49 10:54 12:03 Temp 99.0 99.0 Pulse 66 66 57 Resp 20 16 B/P (MAP) 107/59 107/59 143/56 (85) Pulse Ox 98 98 O2 Delivery Nasal Cannula Nasal Cannula O2 Flow Rate 2.0 2.0 05/28/18 12:07 Pulse Ox 99 O2 Delivery Nasal Cannula O2 Flow Rate 3.0 Intake and Output 05/27/18 05/27/18 05/28/18 15:00 23:00 07:00 Intake Total 50 ml 50 ml Output Total 300 ml 400 ml 700 ml Balance -300 ml -350 ml -650 ml Nutrition Consultation Dietary Evaluation: Recommendations by RD: Increase Calorie Intake, Protein supplementation Comments: REC continue ADA/cardiac diet, can liberalize as needed to provide foods that pt likes REC Glucerna TID (chocolate) Continue MVI REC Vit C (500 mg BID) Expected Outcomes/Goals: PO intake to meet >75% est needs - not met, goal ongoing Malnutrition Findings: Food and Nutrition Intake (Mod: <75% est energy req 7days Weight Status: Appropriate ZAK MENDEZ MD May 28, 2018 12:54
[2018-05-28] MEDS: DAPTOmycin (GENERIC) IVPB 590 MG in IV NORMAL SALINE 50ML 50 ML IV SCH (13:29)
[2018-05-28] MEDS ORDERED: WARFARIN 3 MG TABLET. PO ONE (16:00)
[2018-05-28 17:18] VITALS: BP 137/72
[2018-05-28] MEDS: ASCORBIC ACID 500 MG TABLET PO SCH (17:33)
[2018-05-28 19:15] VITALS: BP 138/39
[2018-05-28] MEDS: ATORVASTATIN CALCIUM 40 MG TABLET. PO SCH (21:00)
[2018-05-28] MEDS: risperiDONE 1 MG TABLET. PO SCH (21:00)
--- NOTE | 2018-05-28 23:02 | NUR ---
Non-administered evening medications due to day shift nurse put in orders for speech to see patient for concerns with swallowing.
[2018-05-28 23:59] VITALS: BP 131/47
[2018-05-29] VITALS (7 sets, daily range): BP systolic 105–132; BP diastolic 36–94
[2018-05-29] MEDS: MORPHINE SULFATE 2 MG/ML VIAL. IV PRN ×3 (02:22→23:42)
[2018-05-29] MEDS: IV RINGERS,LACTATED 1000ML 1,000 ML IV SCH ×2 (05:14→17:05)
[2018-05-29] MEDS: MEROPENEM 500 MG in IV NORMAL SALINE 50ML 50 ML IV SCH ×4 (05:15→23:41)
[2018-05-29] MEDS: IPRATRPIUM/ALBUTEROL 0.5/2.5MG 3 ML NEBU. NEB SCH ×3 (07:22→19:34)
[2018-05-29] MEDS: metFORMIN 500 MG TABLET PO SCH ×2 (08:00→17:03)
[2018-05-29] MEDS: POTASSIUM CHLORIDE 20 MEQ TABLET.ER. PO SCH (08:00)
[2018-05-29] MEDS: INSULIN LISPRO 300 UNITS/3 ML INSULN.PEN. SQ SCH ×4 (08:00→16:55)
[2018-05-29] MEDS: ASPIRIN ENTERIC COATED 81 MG TABLET.DR. PO SCH (08:00)
[2018-05-29 08:08] LABS: BASO # 0.1 x10^3/uL (0.0-0.2); BASO % 0 % (0-3); EOS # 0.2 x10^3/uL (0.0-0.7); EOS % 2 % (0-3); HEMATOCRIT 24.3 % (39.0-53.0); HEMOGLOBIN 7.6 g/dL (13.0-17.5); LYMPH # 0.7 x10^3/uL (1.0-4.8); LYMPH % 6 % (24-48); MEAN CORPUSCULAR HEMOGLOBIN 26 pg (25-35); MEAN CORPUSCULAR HGB CONC 31 g/dL (31-37); MEAN CORPUSCULAR VOLUME 84 fL (79-100); MONO # 1.2 x10^3/uL (0.0-1.1); MONO % 10 % (0-9); NEUT # 9.8 x10^3uL (1.8-7.7); NEUT % 82 % (31-73); PLATELET COUNT 304 x10^3/uL (140-400); RED BLOOD COUNT 2.91 x10^6/uL (4.30-5.70); RED CELL DISTRIBUTION WIDTH 16.1 % (11.5-14.5)
[2018-05-29 08:20] LABS: PROTHROMBIN TIME PATIENT 21.9 SEC (11.7-14.0)
[2018-05-29 08:34] LABS: ALBUMIN 1.5 g/dL (3.4-5.0); ALBUMIN/GLOBULIN RATIO 0.3 (1.0-1.7); CALCIUM 8.2 mg/dL (8.5-10.1); CREATININE 1.2 mg/dL (0.7-1.3); GFR 58.9; POTASSIUM 4.3 mmol/L (3.5-5.1); TOTAL BILIRUBIN 0.6 mg/dL (0.2-1.0); TOTAL PROTEIN 6.1 g/dL (6.4-8.2)
--- NOTE | 2018-05-29 08:36 | PDOC ---
LUKAS MILES AGRICULTURIST 05/29/18 0836: SURGICAL PROGRESS NOTE Subjective back and jaw pain no nausea Vital Signs Vital Signs Date Time Temp Pulse Resp B/P (MAP) Pulse Ox O2 Delivery O2 Flow Rate FiO2 05/29/18 07:25 Nasal Cannula 2.0 05/29/18 03:59 98.2 87 21 106/48 (67) 96 98.2 I&O Intake and Output 05/29/18 07:00 Intake Total 640 ml Output Total 925 ml Balance -285 ml Intake Oral 640 ml Output Urine Total 925 ml # Voids 2 # Bowel Movements 1 General: Alert, Oriented X3, Cooperative, No acute distress Abdomen: Soft, No tenderness Labs Laboratory Tests Test 05/27/18 11:56 05/27/18 17:14 05/27/18 19:50 05/28/18 07:53 Glucose (Fingerstick) 132 mg/dL (70-99) 118 mg/dL (70-99) 104 mg/dL (70-99) 121 mg/dL (70-99) Test 05/28/18 08:15 05/28/18 11:48 05/28/18 17:15 05/28/18 20:51 White Blood Count 11.4 x10^3/uL (4.0-11.0) Red Blood Count 2.85 x10^6/uL (4.30-5.70) Hemoglobin 7.5 g/dL (13.0-17.5) Hematocrit 24.1 % (39.0-53.0) Mean Corpuscular Volume 84 fL (79-100) Mean Corpuscular Hemoglobin 26 pg (25-35) Mean Corpuscular Hemoglobin Concent 31 g/dL (31-37) Red Cell Distribution Width 16.1 % (11.5-14.5) Platelet Count 294 x10^3/uL (140-400) Neutrophils (%) (Auto) 83 % (31-73) Lymphocytes (%) (Auto) 5 % (24-48) Monocytes (%) (Auto) 10 % (0-9) Eosinophils (%) (Auto) 2 % (0-3) Basophils (%) (Auto) 0 % (0-3) Neutrophils # (Auto) 9.4 x10^3uL (1.8-7.7) Lymphocytes # (Auto) 0.6 x10^3/uL (1.0-4.8) Monocytes # (Auto) 1.1 x10^3/uL (0.0-1.1) Eosinophils # (Auto) 0.2 x10^3/uL (0.0-0.7) Basophils # (Auto) 0.0 x10^3/uL (0.0-0.2) Prothrombin Time 21.1 SEC (11.7-14.0) Prothromb Time International Ratio 1.9 (0.8-1.1) Sodium Level 138 mmol/L (136-145) Potassium Level 4.5 mmol/L (3.5-5.1) Chloride Level 104 mmol/L (98-107) Carbon Dioxide Level 25 mmol/L (21-32) Anion Gap 9 (6-14) Blood Urea Nitrogen 20 mg/dL (8-26) Creatinine 1.4 mg/dL (0.7-1.3) Estimated GFR (Cockcroft-Gault) 49.3 BUN/Creatinine Ratio 14 (6-20) Glucose Level 127 mg/dL (70-99) Calcium Level 8.2 mg/dL (8.5-10.1) Total Bilirubin 0.5 mg/dL (0.2-1.0) Aspartate Amino Transf (AST/SGOT) 72 U/L (15-37) Alanine Aminotransferase (ALT/SGPT) 27 U/L (16-63) Alkaline Phosphatase 89 U/L (46-116) Total Protein 6.2 g/dL (6.4-8.2) Albumin 1.5 g/dL (3.4-5.0) Albumin/Globulin Ratio 0.3 (1.0-1.7) Glucose (Fingerstick) 139 mg/dL (70-99) 129 mg/dL (70-99) 117 mg/dL (70-99) Test 05/29/18 07:45 White Blood Count 12.0 x10^3/uL (4.0-11.0) Red Blood Count 2.91 x10^6/uL (4.30-5.70) Hemoglobin 7.6 g/dL (13.0-17.5) Hematocrit 24.3 % (39.0-53.0) Mean Corpuscular Volume 84 fL (79-100) Mean Corpuscular Hemoglobin 26 pg (25-35) Mean Corpuscular Hemoglobin Concent 31 g/dL (31-37) Red Cell Distribution Width 16.1 % (11.5-14.5) Platelet Count 304 x10^3/uL (140-400) Neutrophils (%) (Auto) 82 % (31-73) Lymphocytes (%) (Auto) 6 % (24-48) Monocytes (%) (Auto) 10 % (0-9) Eosinophils (%) (Auto) 2 % (0-3) Basophils (%) (Auto) 0 % (0-3) Neutrophils # (Auto) 9.8 x10^3uL (1.8-7.7) Lymphocytes # (Auto) 0.7 x10^3/uL (1.0-4.8) Monocytes # (Auto) 1.2 x10^3/uL (0.0-1.1) Eosinophils # (Auto) 0.2 x10^3/uL (0.0-0.7) Basophils # (Auto) 0.1 x10^3/uL (0.0-0.2) Prothrombin Time 21.9 SEC (11.7-14.0) Prothromb Time International Ratio 1.9 (0.8-1.1) Laboratory Tests Test 05/28/18 11:48 05/28/18 17:15 05/28/18 20:51 05/29/18 07:45 Glucose (Fingerstick) 139 mg/dL (70-99) 129 mg/dL (70-99) 117 mg/dL (70-99) White Blood Count 12.0 x10^3/uL (4.0-11.0) Red Blood Count 2.91 x10^6/uL (4.30-5.70) Hemoglobin 7.6 g/dL (13.0-17.5) Hematocrit 24.3 % (39.0-53.0) Mean Corpuscular Volume 84 fL (79-100) Mean Corpuscular Hemoglobin 26 pg (25-35) Mean Corpuscular Hemoglobin Concent 31 g/dL (31-37) Red Cell Distribution Width 16.1 % (11.5-14.5) Platelet Count 304 x10^3/uL (140-400) Neutrophils (%) (Auto) 82 % (31-73) Lymphocytes (%) (Auto) 6 % (24-48) Monocytes (%) (Auto) 10 % (0-9) Eosinophils (%) (Auto) 2 % (0-3) Basophils (%) (Auto) 0 % (0-3) Neutrophils # (Auto) 9.8 x10^3uL (1.8-7.7) Lymphocytes # (Auto) 0.7 x10^3/uL (1.0-4.8) Monocytes # (Auto) 1.2 x10^3/uL (0.0-1.1) Eosinophils # (Auto) 0.2 x10^3/uL (0.0-0.7) Basophils # (Auto) 0.1 x10^3/uL (0.0-0.2) Prothrombin Time 21.9 SEC (11.7-14.0) Prothromb Time International Ratio 1.9 (0.8-1.1) Problem List Problems Medical Problems: (1) Fever Status: Acute (2) Gangrene of toe Status: Acute (3) Leukocytosis Status: Acute (4) Severe sepsis Status: Acute Assessment/Plan continue supportive measures no surgical plans t max 100.7, wbc 12 DAVY NAQVI MD 05/29/18 1650: SURGICAL PROGRESS NOTE Assessment/Plan Pt seen and examined. Agree with MsTracie Miles's note Pt without c/o abd soft, ND, NTTP d/w pt's at bedside as well cont abx, try to avoid intervention LUKAS MILES APRN May 29, 2018 08:36 DAVY NAQVI MD May 29, 2018 16:50
--- NOTE | 2018-05-29 08:43 | PDOC ---
Infectious Disease Note Subjective Subjective More alert this morning- Feeling better Wants a drink Denies gen aches Low-grade fevers Denies pain/chills/SOA/upset stomach ROS ROS o/w neg Vital Sign Vital Signs Vital Signs Date Time Temp Pulse Resp B/P (MAP) Pulse Ox O2 Delivery O2 Flow Rate FiO2 05/29/18 07:25 Nasal Cannula 2.0 05/29/18 03:59 98.2 87 21 106/48 (67) 96 98.2 Physical Exam PHYSICAL EXAM Propped up in bed, alert, Looks better HEENT: Pupils equally round, reactive. Normal conjunctivae. Oral cavity, pharynx pink, dry NECK: Supple. LUNGS: Clear anteriorly HEART: S1 and S2, soft murmur. Irregular. ABDOMEN: Obese, soft and Non tender with bowel sounds present. GENITOURINARY: Indwelling Crawley in place. 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 Left foot bandaged wound clean SKIN: Warm without rash. No peripheral stigmata. Several tattoos. NEUROLOGIC: Alert, coop Labs Lab Laboratory Tests Test 05/28/18 11:48 05/28/18 17:15 05/28/18 20:51 05/29/18 07:45 Glucose (Fingerstick) 139 mg/dL (70-99) 129 mg/dL (70-99) 117 mg/dL (70-99) White Blood Count 12.0 x10^3/uL (4.0-11.0) Red Blood Count 2.91 x10^6/uL (4.30-5.70) Hemoglobin 7.6 g/dL (13.0-17.5) Hematocrit 24.3 % (39.0-53.0) Mean Corpuscular Volume 84 fL (79-100) Mean Corpuscular Hemoglobin 26 pg (25-35) Mean Corpuscular Hemoglobin Concent 31 g/dL (31-37) Red Cell Distribution Width 16.1 % (11.5-14.5) Platelet Count 304 x10^3/uL (140-400) Neutrophils (%) (Auto) 82 % (31-73) Lymphocytes (%) (Auto) 6 % (24-48) Monocytes (%) (Auto) 10 % (0-9) Eosinophils (%) (Auto) 2 % (0-3) Basophils (%) (Auto) 0 % (0-3) Neutrophils # (Auto) 9.8 x10^3uL (1.8-7.7) Lymphocytes # (Auto) 0.7 x10^3/uL (1.0-4.8) Monocytes # (Auto) 1.2 x10^3/uL (0.0-1.1) Eosinophils # (Auto) 0.2 x10^3/uL (0.0-0.7) Basophils # (Auto) 0.1 x10^3/uL (0.0-0.2) Prothrombin Time 21.9 SEC (11.7-14.0) Prothromb Time International Ratio 1.9 (0.8-1.1) Sodium Level 137 mmol/L (136-145) Potassium Level 4.3 mmol/L (3.5-5.1) Chloride Level 103 mmol/L (98-107) Carbon Dioxide Level 25 mmol/L (21-32) Anion Gap 9 (6-14) Blood Urea Nitrogen 16 mg/dL (8-26) Creatinine 1.2 mg/dL (0.7-1.3) Estimated GFR (Cockcroft-Gault) 58.9 BUN/Creatinine Ratio 13 (6-20) Glucose Level 111 mg/dL (70-99) Calcium Level 8.2 mg/dL (8.5-10.1) Total Bilirubin 0.6 mg/dL (0.2-1.0) Aspartate Amino Transf (AST/SGOT) 73 U/L (15-37) Alanine Aminotransferase (ALT/SGPT) 32 U/L (16-63) Alkaline Phosphatase 95 U/L (46-116) Total Protein 6.1 g/dL (6.4-8.2) Albumin 1.5 g/dL (3.4-5.0) Albumin/Globulin Ratio 0.3 (1.0-1.7) Micro Microbiology 05/24/18 Blood Culture - Preliminary, Resulted NO GROWTH AFTER 2 DAYS 05/19/18 Urine Culture - Final, Complete 05/19/18 Urine Culture Result 1 (FELICITA) - Final, Complete 05/19/18 Anaerobic/Aerobic Culture - Final, Complete 05/19/18 Anaerobic Culture Result 1 (FELICITA) - Final, Complete 05/19/18 Aerobic Culture - Final, Complete 05/19/18 Aerobic Culture Result 1 (FELICITA) - Final, Complete 05/19/18 Aerobic Culture Result 2 (FELICITA) - Final, Complete 05/19/18 Antimicrobic Susceptibility - Final, Complete 05/19/18 Gram Stain - Final, Complete 05/19/18 Gram Stain Result 1 (FELICITA) - Final, Complete 05/19/18 Gram Stain Result 2 (FELICITA) - Final, Complete Objective Assessment Fevers better overall. repeat UA and BC from 05/24 neg so far Leukocytosis - better Constipation ? chlolecystisis MRSA bacteremia (4 of 4 bottles) with sepsis, POA source possible foot infection- Dapto sensitive -CRYSTAL done no vegetations 05/21; BC from 05/20 & 05/21 neg Infected necrotic ulcer left ankle s/p I and D 05/21. 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 Severe PAD s/p BLE stents and previous toe amputations Bioprosthetic aortic valve Renal insufficiency/JIMMY Encephalopathy - improved Coagulopathy, on chronic warfarin A- fib RVR Diabetes Type II h/o PSA ( R quinolones & I imipenem) h/o group B strep bacteremia, 2016 Plan Plan of Care Gen surg eval - D/w Dr. Frye 05/28 who agrees GB maybe playing into this but he is a poor surgical candidate. His plan is to monitor but may need Cholecystostomy tube placement Cont Micafungin/Dapto (susceptibility testing pending) /Merrem (05/24), was on zosyn Repeat BC, UA c/s from 05/24 NGTD Monitor labs and renal function closely Local wound care and offloading D/w nursing MACARIO PRIEST MD May 29, 2018 08:43
[2018-05-29] MEDS: GABAPENTIN 300 MG CAPSULE. PO SCH (09:00)
[2018-05-29] MEDS: MULTIVITAMIN with MINERAL TABLET. PO SCH (09:00)
[2018-05-29] MEDS: POLYETHYLENE GLYCOL 3350 17 GM PACKET. PO SCH (09:00)
[2018-05-29] MEDS: METOPROLOL TART IMMED RELEASE 50 MG TABLET. PO SCH ×2 (09:00→20:35)
[2018-05-29] MEDS: levETIRAcetam 250 MG TABLET PO SCH ×2 (09:00→20:34)
[2018-05-29] MEDS: ASCORBIC ACID 500 MG TABLET PO SCH (09:00)
[2018-05-29] MEDS: ZONISAMIDE 100 MG CAPSULE. PO SCH (09:00)
[2018-05-29] MEDS: FUROSEMIDE 40 MG TABLET. PO SCH (09:00)
[2018-05-29] MEDS: hydrALAZINE 10 MG TABLET PO SCH ×3 (09:00→20:35)
--- NOTE | 2018-05-29 12:27 | NUR ---
Pharmacy Warfarin Dosing Note S:Pharmacy consulted to assist with anticoagulation therapy started with target INR: 2 -3 O:VICKI BRAUN is a 78 year old M with Atrial Fibrillation LABS: Last INR: 1.9 Last HGB: 7.6 Last HCT: 24.3 Last PLT: 304 Last dose of 6 mg given on 05/28/18 at 1732 Previous Regimen: 4mg/day except 2 mg Sat/Sun Vitamin K given: Y 05/19: 10 MG SUB-Q, 05/20: 5 MG IV Drug Interaction Changes: New Interacting Drug Ongoing Drug Interactions: Zosyn A:INR of 1.9 is below desired range. Target range for this patient is: 2 -3 P: Warfarin dose: 6 mg Today at 1600 Bridge Therapy: None Next INR due 05/30/18 Pharmacy anticoagulation service will continue to follow. MATT FAYE RP, 05/29/18 [id number]
--- NOTE | 2018-05-29 12:31 | PDOC ---
PROGRESS NOTES Chief Complaint Chief Complaint Severe sepsis cellulitis w/ gangrenous toes MRSA bacteremia (4 of 4 bottles) with sepsis, POA source //foot infection -CRYSTAL done no vegetations 05/21; BC from 05/20 & 05/21 neg A. 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 A neoplastic etiology cannot be excluded and CT follow-up may be prudent. Small bilateral pleural effusions with mild bibasilar atelectasis. Distended gallbladder containing material of medium density. 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 ID following still weakness, poor PO intake PT/OT F/u cultures Blood glucose control Pain control HR control GB SONO home with [facility] when discharged. Vitals Vitals Vital Signs Date Time Temp Pulse Resp B/P (MAP) Pulse Ox O2 Delivery O2 Flow Rate FiO2 05/29/18 11:42 Nasal Cannula 2.0 05/29/18 07:00 97.9 62 17 112/36 (61) 93 97.9 Physical Exam Physical Exam Propped up in bed, alert, Looks better HEENT: Pupils equally round, reactive. Normal conjunctivae. Oral cavity, pharynx pink, dry NECK: Supple. LUNGS: Clear anteriorly HEART: S1 and S2, soft murmur. Irregular. ABDOMEN: Obese, soft and Non tender with bowel sounds present. GENITOURINARY: Indwelling Crawley in place. 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 Left foot bandaged wound clean SKIN: Warm without rash. No peripheral stigmata. Several tattoos. NEUROLOGIC: Alert, coop General: Alert, Oriented X3, Cooperative, No acute distress Heart: Regular rate, Other (AFIB) Lungs: Clear Abdomen: Soft, No tenderness Extremities: No cyanosis, Other (right BKA dressing, LLE dressing) Skin: No significant lesion, Other (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 and 2 gangrenous toes on the right, chronic hyperpigmentation bilateral shins and foot) Labs LABS Laboratory Tests Test 05/28/18 17:15 05/28/18 20:51 05/29/18 07:45 05/29/18 08:46 Glucose (Fingerstick) 129 mg/dL (70-99) 117 mg/dL (70-99) 101 mg/dL (70-99) White Blood Count 12.0 x10^3/uL (4.0-11.0) Red Blood Count 2.91 x10^6/uL (4.30-5.70) Hemoglobin 7.6 g/dL (13.0-17.5) Hematocrit 24.3 % (39.0-53.0) Mean Corpuscular Volume 84 fL (79-100) Mean Corpuscular Hemoglobin 26 pg (25-35) Mean Corpuscular Hemoglobin Concent 31 g/dL (31-37) Red Cell Distribution Width 16.1 % (11.5-14.5) Platelet Count 304 x10^3/uL (140-400) Neutrophils (%) (Auto) 82 % (31-73) Lymphocytes (%) (Auto) 6 % (24-48) Monocytes (%) (Auto) 10 % (0-9) Eosinophils (%) (Auto) 2 % (0-3) Basophils (%) (Auto) 0 % (0-3) Neutrophils # (Auto) 9.8 x10^3uL (1.8-7.7) Lymphocytes # (Auto) 0.7 x10^3/uL (1.0-4.8) Monocytes # (Auto) 1.2 x10^3/uL (0.0-1.1) Eosinophils # (Auto) 0.2 x10^3/uL (0.0-0.7) Basophils # (Auto) 0.1 x10^3/uL (0.0-0.2) Prothrombin Time 21.9 SEC (11.7-14.0) Prothromb Time International Ratio 1.9 (0.8-1.1) Sodium Level 137 mmol/L (136-145) Potassium Level 4.3 mmol/L (3.5-5.1) Chloride Level 103 mmol/L (98-107) Carbon Dioxide Level 25 mmol/L (21-32) Anion Gap 9 (6-14) Blood Urea Nitrogen 16 mg/dL (8-26) Creatinine 1.2 mg/dL (0.7-1.3) Estimated GFR (Cockcroft-Gault) 58.9 BUN/Creatinine Ratio 13 (6-20) Glucose Level 111 mg/dL (70-99) Calcium Level 8.2 mg/dL (8.5-10.1) Total Bilirubin 0.6 mg/dL (0.2-1.0) Aspartate Amino Transf (AST/SGOT) 73 U/L (15-37) Alanine Aminotransferase (ALT/SGPT) 32 U/L (16-63) Alkaline Phosphatase 95 U/L (46-116) Total Protein 6.1 g/dL (6.4-8.2) Albumin 1.5 g/dL (3.4-5.0) Albumin/Globulin Ratio 0.3 (1.0-1.7) Test 05/29/18 12:09 Glucose (Fingerstick) 100 mg/dL (70-99) Assessment and Plan Assessmemt and Plan Problems Medical Problems: (1) Fever Status: Acute (2) Gangrene of toe Status: Acute (3) Leukocytosis Status: Acute (4) Severe sepsis Status: Acute Comment Review of Relevant I have reviewed the following items navi (where applicable) has been applied. Labs Laboratory Tests Test 05/27/18 17:14 05/27/18 19:50 05/28/18 07:53 05/28/18 08:15 Glucose (Fingerstick) 118 mg/dL (70-99) 104 mg/dL (70-99) 121 mg/dL (70-99) White Blood Count 11.4 x10^3/uL (4.0-11.0) Red Blood Count 2.85 x10^6/uL (4.30-5.70) Hemoglobin 7.5 g/dL (13.0-17.5) Hematocrit 24.1 % (39.0-53.0) Mean Corpuscular Volume 84 fL (79-100) Mean Corpuscular Hemoglobin 26 pg (25-35) Mean Corpuscular Hemoglobin Concent 31 g/dL (31-37) Red Cell Distribution Width 16.1 % (11.5-14.5) Platelet Count 294 x10^3/uL (140-400) Neutrophils (%) (Auto) 83 % (31-73) Lymphocytes (%) (Auto) 5 % (24-48) Monocytes (%) (Auto) 10 % (0-9) Eosinophils (%) (Auto) 2 % (0-3) Basophils (%) (Auto) 0 % (0-3) Neutrophils # (Auto) 9.4 x10^3uL (1.8-7.7) Lymphocytes # (Auto) 0.6 x10^3/uL (1.0-4.8) Monocytes # (Auto) 1.1 x10^3/uL (0.0-1.1) Eosinophils # (Auto) 0.2 x10^3/uL (0.0-0.7) Basophils # (Auto) 0.0 x10^3/uL (0.0-0.2) Prothrombin Time 21.1 SEC (11.7-14.0) Prothromb Time International Ratio 1.9 (0.8-1.1) Sodium Level 138 mmol/L (136-145) Potassium Level 4.5 mmol/L (3.5-5.1) Chloride Level 104 mmol/L (98-107) Carbon Dioxide Level 25 mmol/L (21-32) Anion Gap 9 (6-14) Blood Urea Nitrogen 20 mg/dL (8-26) Creatinine 1.4 mg/dL (0.7-1.3) Estimated GFR (Cockcroft-Gault) 49.3 BUN/Creatinine Ratio 14 (6-20) Glucose Level 127 mg/dL (70-99) Calcium Level 8.2 mg/dL (8.5-10.1) Total Bilirubin 0.5 mg/dL (0.2-1.0) Aspartate Amino Transf (AST/SGOT) 72 U/L (15-37) Alanine Aminotransferase (ALT/SGPT) 27 U/L (16-63) Alkaline Phosphatase 89 U/L (46-116) Total Protein 6.2 g/dL (6.4-8.2) Albumin 1.5 g/dL (3.4-5.0) Albumin/Globulin Ratio 0.3 (1.0-1.7) Test 05/28/18 11:48 05/28/18 17:15 05/28/18 20:51 05/29/18 07:45 Glucose (Fingerstick) 139 mg/dL (70-99) 129 mg/dL (70-99) 117 mg/dL (70-99) White Blood Count 12.0 x10^3/uL (4.0-11.0) Red Blood Count 2.91 x10^6/uL (4.30-5.70) Hemoglobin 7.6 g/dL (13.0-17.5) Hematocrit 24.3 % (39.0-53.0) Mean Corpuscular Volume 84 fL (79-100) Mean Corpuscular Hemoglobin 26 pg (25-35) Mean Corpuscular Hemoglobin Concent 31 g/dL (31-37) Red Cell Distribution Width 16.1 % (11.5-14.5) Platelet Count 304 x10^3/uL (140-400) Neutrophils (%) (Auto) 82 % (31-73) Lymphocytes (%) (Auto) 6 % (24-48) Monocytes (%) (Auto) 10 % (0-9) Eosinophils (%) (Auto) 2 % (0-3) Basophils (%) (Auto) 0 % (0-3) Neutrophils # (Auto) 9.8 x10^3uL (1.8-7.7) Lymphocytes # (Auto) 0.7 x10^3/uL (1.0-4.8) Monocytes # (Auto) 1.2 x10^3/uL (0.0-1.1) Eosinophils # (Auto) 0.2 x10^3/uL (0.0-0.7) Basophils # (Auto) 0.1 x10^3/uL (0.0-0.2) Prothrombin Time 21.9 SEC (11.7-14.0) Prothromb Time International Ratio 1.9 (0.8-1.1) Sodium Level 137 mmol/L (136-145) Potassium Level 4.3 mmol/L (3.5-5.1) Chloride Level 103 mmol/L (98-107) Carbon Dioxide Level 25 mmol/L (21-32) Anion Gap 9 (6-14) Blood Urea Nitrogen 16 mg/dL (8-26) Creatinine 1.2 mg/dL (0.7-1.3) Estimated GFR (Cockcroft-Gault) 58.9 BUN/Creatinine Ratio 13 (6-20) Glucose Level 111 mg/dL (70-99) Calcium Level 8.2 mg/dL (8.5-10.1) Total Bilirubin 0.6 mg/dL (0.2-1.0) Aspartate Amino Transf (AST/SGOT) 73 U/L (15-37) Alanine Aminotransferase (ALT/SGPT) 32 U/L (16-63) Alkaline Phosphatase 95 U/L (46-116) Total Protein 6.1 g/dL (6.4-8.2) Albumin 1.5 g/dL (3.4-5.0) Albumin/Globulin Ratio 0.3 (1.0-1.7) Test 05/29/18 08:46 05/29/18 12:09 Glucose (Fingerstick) 101 mg/dL (70-99) 100 mg/dL (70-99) Laboratory Tests Test 05/28/18 17:15 05/28/18 20:51 05/29/18 07:45 05/29/18 08:46 Glucose (Fingerstick) 129 mg/dL (70-99) 117 mg/dL (70-99) 101 mg/dL (70-99) White Blood Count 12.0 x10^3/uL (4.0-11.0) Red Blood Count 2.91 x10^6/uL (4.30-5.70) Hemoglobin 7.6 g/dL (13.0-17.5) Hematocrit 24.3 % (39.0-53.0) Mean Corpuscular Volume 84 fL (79-100) Mean Corpuscular Hemoglobin 26 pg (25-35) Mean Corpuscular Hemoglobin Concent 31 g/dL (31-37) Red Cell Distribution Width 16.1 % (11.5-14.5) Platelet Count 304 x10^3/uL (140-400) Neutrophils (%) (Auto) 82 % (31-73) Lymphocytes (%) (Auto) 6 % (24-48) Monocytes (%) (Auto) 10 % (0-9) Eosinophils (%) (Auto) 2 % (0-3) Basophils (%) (Auto) 0 % (0-3) Neutrophils # (Auto) 9.8 x10^3uL (1.8-7.7) Lymphocytes # (Auto) 0.7 x10^3/uL (1.0-4.8) Monocytes # (Auto) 1.2 x10^3/uL (0.0-1.1) Eosinophils # (Auto) 0.2 x10^3/uL (0.0-0.7) Basophils # (Auto) 0.1 x10^3/uL (0.0-0.2) Prothrombin Time 21.9 SEC (11.7-14.0) Prothromb Time International Ratio 1.9 (0.8-1.1) Sodium Level 137 mmol/L (136-145) Potassium Level 4.3 mmol/L (3.5-5.1) Chloride Level 103 mmol/L (98-107) Carbon Dioxide Level 25 mmol/L (21-32) Anion Gap 9 (6-14) Blood Urea Nitrogen 16 mg/dL (8-26) Creatinine 1.2 mg/dL (0.7-1.3) Estimated GFR (Cockcroft-Gault) 58.9 BUN/Creatinine Ratio 13 (6-20) Glucose Level 111 mg/dL (70-99) Calcium Level 8.2 mg/dL (8.5-10.1) Total Bilirubin 0.6 mg/dL (0.2-1.0) Aspartate Amino Transf (AST/SGOT) 73 U/L (15-37) Alanine Aminotransferase (ALT/SGPT) 32 U/L (16-63) Alkaline Phosphatase 95 U/L (46-116) Total Protein 6.1 g/dL (6.4-8.2) Albumin 1.5 g/dL (3.4-5.0) Albumin/Globulin Ratio 0.3 (1.0-1.7) Test 05/29/18 12:09 Glucose (Fingerstick) 100 mg/dL (70-99) Microbiology 05/27/18 Blood Culture - Preliminary, Resulted NO GROWTH AFTER 1 DAY 05/19/18 Urine Culture - Final, Complete 05/19/18 Urine Culture Result 1 (FELICITA) - Final, Complete 05/19/18 Anaerobic/Aerobic Culture - Final, Complete 05/19/18 Anaerobic Culture Result 1 (FELICITA) - Final, Complete 05/19/18 Aerobic Culture - Final, Complete 05/19/18 Aerobic Culture Result 1 (FELICITA) - Final, Complete 05/19/18 Aerobic Culture Result 2 (FELICITA) - Final, Complete 05/19/18 Antimicrobic Susceptibility - Final, Complete 05/19/18 Gram Stain - Final, Complete 05/19/18 Gram Stain Result 1 (FELICITA) - Final, Complete 05/19/18 Gram Stain Result 2 (FELICITA) - Final, Complete Medications Current Medications Sodium Chloride 1,000 ml @ 2,190 mls/hr Q28M IV Last administered on 05/18/18at 14:36; Start 05/18/18 at 12:52; Stop 05/18/18 at 13:52; Status DC Piperacillin Sod/ Tazobactam Sod 4.5 gm/Sodium Chloride 100 ml @ 200 mls/hr 1X ONCE IV Last administered on 05/18/18at 14:34; Start 05/18/18 at 13:00; Stop 05/18/18 at 13:29; Status DC Vancomycin HCl (Vanco Per Pharmacy) 1 each 1X ONCE MC Last administered on 05/18/18at 13:00; Start 05/18/18 at 13:00; Stop 05/18/18 at 13:11; Status DC Vancomycin HCl 2 gm/Sodium Chloride 500 ml @ 250 mls/hr 1X ONCE IV Last administered on 05/18/18at 15:28; Start 05/18/18 at 13:15; Stop 05/18/18 at 15:14; Status DC Ondansetron HCl (Zofran) 4 mg PRN Q8HRS PRN IV NAUSEA/VOMITING; Start 05/18/18 at 14:45; Stop 05/18/18 at 15:28; Status DC Fentanyl Citrate (Fentanyl 2ml Vial) 50 mcg PRN Q1HR PRN IV PAIN; Start 05/18/18 at 14:45; Stop 05/19/18 at 11:50; Status DC Sodium Chloride 1,000 ml @ 80 mls/hr [id number] IV ; Start 05/18/18 at 14:43; Stop 05/18/18 at 18:42; Status DC Acetaminophen (Tylenol) 650 mg 1X ONCE PO Last administered on 05/18/18at 15:29; Start 05/18/18 at 15:30; Stop 05/18/18 at 15:31; Status DC Ondansetron HCl (Zofran) 4 mg PRN Q6HRS PRN IV NAUSEA/VOMITING Last administered on 05/24/18at 06:14; Start 05/18/18 at 15:30 Diltiazem HCl (Cardizem Iv Push) 10 mg 1X ONCE IVP ; Start 05/18/18 at 15:30; Stop 05/18/18 at 15:31; Status DC Acetaminophen (Tylenol) 500 mg PRN Q6HRS PRN PO MILD PAIN / TEMP; Start 05/18/18 at 15:30; Stop 05/18/18 at 16:14; Status DC Acetaminophen/ Codeine Phosphate (Tylenol #3) 1 tab PRN Q6HRS PRN PO MODERATE PAIN Last administered on 05/26/18 21:56; Start 05/18/18 at 15:30 Morphine Sulfate (Morphine Sulfate) 2 mg PRN Q2HR PRN IV PAIN Last administered on 05/29/18 04:13; Start 05/18/18 at 15:30 Oxycodone/ Acetaminophen (Percocet 5/325) 1 tab PRN Q4HRS PRN PO SEVERE PAIN Last administered on 05/27/18 12:49; Start 05/18/18 at 15:30 Albuterol Sulfate (Ventolin Hfa) 2 puff PRN Q6HRS PRN IH SHORTNESS OF BREATH; Start 05/18/18 at 15:30; Status UNV Digoxin (Lanoxin) 125 mcg DAILY PO ; Start 05/19/18 at 09:00; Stop 05/19/18 at 09:00; Status DC Furosemide (Lasix) 40 mg DAILY PO Last administered on 05/28/18 08:47; Start 05/19/18 at 09:00 Gabapentin (Neurontin) 300 mg DAILY PO Last administered on 05/28/18 08:50; Start 05/19/18 at 09:00 Lisinopril (Prinivil) 20 mg DAILY PO Last administered on 05/19/18 10:14; Start 05/19/18 at 09:00; Stop 05/24/18 at 15:20; Status DC Metoprolol Tartrate (Lopressor) 50 mg BID PO Last administered on 05/28/18 08:46; Start 05/18/18 at 21:00 Oxycodone/ Acetaminophen (Percocet 10/325) 1 tab PRN Q6HRS PRN PO SEVERE PAIN (2ND Choice) Last administered on 05/27/18 23:35; Start 05/18/18 at 15:30 Oxycodone/ Acetaminophen (Percocet 5/325) 1 tab PRN Q4HRS PRN PO PAIN; Start 05/18/18 at 15:30; Status UNV Acetaminophen (Tylenol) 500 mg PRN Q6HRS PRN PO MILD PAIN / TEMP Last administered on 05/27/18 23:35; Start 05/18/18 at 16:15 Atorvastatin Calcium (Lipitor) 80 mg QHS PO Last administered on 05/27/18 21:33; Start 05/18/18 at 21:00 Hydralazine HCl (Apresoline) 10 mg TID PO Last administered on 05/28/18 13:23; Start 05/18/18 at 16:00 Insulin Human Lispro (HumaLOG) 10 units DAILYWBKFT SQ Last administered on 05/23/18 08:58; Start 05/18/18 at 17:00; Stop 05/23/18 at 14:25; Status DC Levetiracetam (Keppra) 1,250 mg BID PO Last administered on 05/28/18 08:45; Start 05/18/18 at 21:00 Metformin HCl (Glucophage) 1,000 mg BIDWMEALS PO Last administered on 05/28/18 17:33; Start 05/18/18 at 17:00 Multivitamins (Thera M Plus) 1 tab DAILY PO Last administered on 05/28/18 08:48; Start 05/19/18 at 09:00 Potassium Chloride (Klor-Con) 20 meq DAILYWBKFT PO Last administered on 05/28/18 08:00; Start 05/19/18 at 08:00 Risperidone (RisperDAL) 1 mg QHS PO Last administered on 05/27/18 21:32; Start 05/18/18 at 21:00 Non-Formulary Medication (Rosuvastatin Calcium (Crestor)) 40 mg DAILY PO ; Start 05/19/18 at 09:00; Status UNV Zonisamide (Zonegran) 400 mg DAILY PO Last administered on 05/28/18 08:46; Start 05/19/18 at 09:00 Albuterol/ Ipratropium (Duoneb) 3 ml Q4HRS W/A NEB Last administered on 05/29/18at 11:42; Start 05/18/18 at 18:00 Insulin Human Lispro (HumaLOG) 0-9 UNITS TIDWMEALS SQ Last administered on 05/26/18at 18:04; Start 05/18/18 at 17:00 Dextrose (Dextrose 50%-Water Syringe) 12.5 gm PRN Q15MIN PRN IV SEE COMMENTS Last administered on 05/25/18at 06:04; Start 05/18/18 at 15:30 Albuterol Sulfate (Ventolin Neb Soln) 2.5 mg PRN Q6HRS PRN NEB SHORTNESS OF BREATH Last administered on 05/26/18 08:35; Start 05/18/18 at 15:45 Piperacillin Sod/ Tazobactam Sod 3.375 gm/Sodium Chloride 50 ml @ 100 mls/hr Q6HRS IV Last administered on 05/24/18at 05:33; Start 05/18/18 at 18:00; Stop 05/24/18 at 08:09; Status DC Potassium Chloride (Klor-Con) 40 meq 1X ONCE PO Last administered on 05/19/18 10:14; Start 05/19/18 at 08:30; Stop 05/19/18 at 08:31; Status DC Heparin Sodium (Porcine) (Heparin Sodium) 5,000 unit Q8HRS SQ ; Start 05/19/18 at 14:00; Stop 05/19/18 at 14:00; Status DC Furosemide (Lasix) 40 mg 1X ONCE IVP Last administered on 05/19/18at 10:12; Start 05/19/18 at 08:45; Stop 05/19/18 at 08:46; Status DC Phytonadione (Vitamin K Ampule) 10 mg 1X ONCE SQ Last administered on 05/19/18at 10:16; Start 05/19/18 at 10:00; Stop 05/19/18 at 10:01; Status DC Vancomycin HCl (Vanco Per Pharmacy) 1 each PRN DAILY PRN MC SEE COMMENTS Last administered on 05/19/18at 10:32; Start 05/19/18 at 10:00; Stop 05/20/18 at 10:42; Status DC Phytonadione (Vitamin K Ampule) 10 mg 1X ONCE SQ ; Start 05/19/18 at 10:15; Stop 05/19/18 at 10:16; Status UNV Vancomycin HCl 1.75 gm/Sodium Chloride 500 ml @ 250 mls/hr Q24H IV Last administered on 05/19/18at 16:59; Start 05/19/18 at 16:00; Stop 05/20/18 at 10:42; Status DC Vancomycin HCl (Vancomycin Trough Level) 1 each 1X ONCE MC ; Start 05/20/18 at 16:30; Stop 05/20/18 at 16:30; Status DC Acetaminophen (Tylenol Supp) 650 mg PRN Q6HRS PRN VA MILD PAIN / TEMP Last administered on 05/23/18at 23:33; Start 05/20/18 at 01:15 Sodium Chloride 500 ml @ 333 mls/hr 1X ONCE IV Last administered on 05/20/18at 01:14; Start 05/20/18 at 01:15; Stop 05/20/18 at 02:45; Status DC Phytonadione 5 mg/ Dextrose 50.5 ml @ 101 mls/hr 1X ONCE IV Last administered on 05/20/18at 10:08; Start 05/20/18 at 10:30; Stop 05/20/18 at 10:59; Status DC Daptomycin 590 mg/ Sodium Chloride 50 ml @ 100 mls/hr Q24H IV Last administered on 05/28/18at 13:29; Start 05/20/18 at 12:00 Ondansetron HCl (Zofran) 4 mg PRN Q6HRS PRN IV NAUSEA/VOMITING; Start 05/21/18 at 09:45; Stop 05/22/18 at 09:44; Status DC Fentanyl Citrate (Fentanyl 2ml Vial) 25 mcg PRN Q5MIN PRN IV MILD PAIN; Start 05/21/18 at 09:45; Stop 05/22/18 at 09:44; Status DC Fentanyl Citrate (Fentanyl 2ml Vial) 50 mcg PRN Q5MIN PRN IV MODERATE TO SEVERE PAIN; Start 05/21/18 at 09:45; Stop 05/22/18 at 09:44; Status DC Morphine Sulfate (Morphine Sulfate) 1 mg PRN Q10MIN PRN IV SEVERE PAIN; Start 05/21/18 at 09:45; Stop 05/22/18 at 09:44; Status DC Ringer's Solution 1,000 ml @ 30 mls/hr Q24H IV ; Start 05/21/18 at 09:39; Stop 05/22/18 at 00:37; Status DC Lidocaine HCl (Xylocaine-Mpf 1% 2ml Vial) 2 ml 1X PRN PRN ID IV START; Start 05/21/18 at 09:45; Stop 05/22/18 at 09:44; Status DC Hydromorphone HCl (Dilaudid) 0.5 mg PRN Q10MIN PRN IV SEV PAIN, Second choice; Start 05/21/18 at 09:45; Stop 05/22/18 at 09:44; Status DC Prochlorperazine Edisylate (Compazine) 5 mg PACU PRN PRN IV NAUSEA, MRX1; Start 05/21/18 at 09:45; Stop 05/22/18 at 09:44; Status DC Lidocaine HCl (Glydo (Lidocaine) Jelly) 1 vianney 1X ONCE MM ; Start 05/21/18 at 12:30; Stop 05/21/18 at 12:31; Status DC Propofol 20 ml @ As Directed STK-MED ONCE IV ; Start 05/21/18 at 12:27; Stop 05/21/18 at 12:28; Status DC Dexamethasone Sodium Phosphate (Decadron) 20 mg STK-MED ONCE .ROUTE ; Start 05/21/18 at 12:27; Stop 05/21/18 at 12:28; Status DC Famotidine (Pepcid Vial) 20 mg STK-MED ONCE .ROUTE ; Start 05/21/18 at 12:27; Stop 05/21/18 at 12:28; Status DC Lidocaine HCl (Lidocaine Pf 2% Vial) 5 ml STK-MED ONCE .ROUTE ; Start 05/21/18 at 12:27; Stop 05/21/18 at 12:28; Status DC Ondansetron HCl (Zofran) 4 mg STK-MED ONCE .ROUTE ; Start 05/21/18 at 12:27; Stop 05/21/18 at 12:28; Status DC Fentanyl Citrate (Fentanyl 2ml Vial) 100 mcg STK-MED ONCE .ROUTE ; Start 05/21/18 at 12:27; Stop 05/21/18 at 12:28; Status DC Bacitracin 95443 unit/Sodium Chloride 500 ml @ 500 mls/hr 1X ONCE IRR ; Start 05/21/18 at 12:40; Stop 05/21/18 at 13:39; Status DC Cefazolin Sodium 1 gm/Sodium Chloride 500 ml @ 500 mls/hr 1X ONCE IRR ; Start 05/21/18 at 12:40; Stop 05/21/18 at 13:39; Status DC Lidocaine HCl 20 ml STK-MED ONCE .ROUTE ; Start 05/21/18 at 11:42; Stop 05/21/18 at 12:42; Status DC Esmolol HCl (Brevibloc) 100 mg STK-MED ONCE IVP ; Start 05/21/18 at 13:01; Stop 05/21/18 at 13:02; Status DC Esmolol HCl (Brevibloc) 100 mg STK-MED ONCE IVP ; Start 05/21/18 at 14:22; Stop 05/21/18 at 14:23; Status DC Neomycin/ Polymyxin/ Bacitracin (Triple Antibiotic Ointment) 1 pkt STK-MED ONCE TP Last administered on 05/21/18at 14:41; Start 05/21/18 at 13:38; Stop 05/21/18 at 14:38; Status DC Sevoflurane (Ultane) 90 ml STK-MED ONCE IH ; Start 05/21/18 at 14:40; Stop 05/21/18 at 14:41; Status DC Naloxone HCl (Narcan) 0.4 mg PRN Q2MIN PRN IV SEE INSTRUCTIONS; Start 05/21/18 at 15:00 Sodium Chloride 1,000 ml @ 25 mls/hr Q24H IV ; Start 05/21/18 at 14:57; Stop 05/24/18 at 07:00; Status DC Morphine Sulfate 30 ml @ 0 mls/hr CONT PRN PRN IV PER PROTOCOL; Start 05/21/18 at 15:00 Labetalol HCl (Normodyne Iv Push) 20 mg PRN Q2HR PRN IVP HYPERTENSION, SEE COMMENTS Last administered on 05/24/18at 00:15; Start 05/21/18 at 15:30 Labetalol HCl (Normodyne Iv Push) 5 mg 1X PACU PRN IVP tachycardia and HTN Last administered on 05/21/18at 15:30; Start 05/21/18 at 15:30; Stop 05/22/18 at 09:09; Status DC Insulin Glargine (Lantus) 3 units 1X ONCE SQ Last administered on 05/21/18at 22:00; Start 05/21/18 at 22:00; Stop 05/22/18 at 01:31; Status DC Aspirin (Ecotrin) 81 mg DAILYWBKFT PO Last administered on 05/28/18at 08:47; Start 05/23/18 at 08:00 Digoxin (Lanoxin) 250 mcg 1X ONCE IV Last administered on 05/22/18at 12:28; Start 05/22/18 at 12:30; Stop 05/22/18 at 12:31; Status DC Warfarin Sodium (Coumadin) 6 mg DAILY16 PO ; Start 05/22/18 at 16:00; Stop 05/07 07/25 at 16:00; Status DC Warfarin Sodium (Coumadin) 2.5 mg 3X/WEEK PO ; Start 05/23/18 at 09:00; Status UNV Warfarin Sodium (Coumadin Per Physician) 1 each PRN DAILY PRN MC SEE COMMENTS; Start 05/22/18 at 14:45; Stop 05/22/18 at 14:57; Status DC Warfarin Sodium (Coumadin Per Pharmacy) 1 each PRN DAILY PRN MC SEE COMMENTS Last administered on 05/28/18at 13:25; Start 05/22/18 at 15:00 Warfarin Sodium (Coumadin) 4 mg 1X WARF ONCE PO Last administered on 05/22/18at 16:19; Start 05/22/18 at 16:00; Stop 05/22/18 at 16:01; Status DC Warfarin Sodium (Coumadin) 4 mg 1X WARF ONCE PO ; Start 05/23/18 at 16:00; Stop 05/23/18 at 16:01; Status DC Ringer's Solution 1,000 ml @ 75 mls/hr [id number] IV ; Start 05/23/18 at 13:45; Status Cancel Ringer's Solution 1,000 ml @ 75 mls/hr [id number] IV Last administered on 05/29/18at 05:14; Start 05/23/18 at 14:00 Insulin Human Lispro (HumaLOG) 7 units [id number] SQ ; Start 05/24/18 at 08:00; Stop 05/25/18 at 12:44; Status DC Dextrose (Dextrose 50%-Water Syringe) 25 gm 1X ONCE IV Last administered on 05/23/18 13:15; Start 05/23/18 at 17:45; Stop 05/23/18 at 17:46; Status DC Meropenem 500 mg/ Sodium Chloride 50 ml @ 100 mls/hr Q6HRS IV Last administered on 05/29/18 05:15; Start 05/24/18 at 12:00 Warfarin Sodium (Coumadin) 6 mg 1X WARF ONCE PO Last administered on 05/24/18 15:33; Start 05/24/18 at 16:00; Stop 05/24/18 at 16:01; Status DC Insulin Human Lispro (HumaLOG) 3 units DAILYWBKFT SQ Last administered on 05/28/18 09:06; Start 05/26/18 at 08:00 Warfarin Sodium (Coumadin) 6 mg 1X WARF ONCE PO Last administered on 05/25/18 16:04; Start 05/25/18 at 16:00; Stop 05/25/18 at 16:01; Status DC Polyethylene Glycol (miraLAX PACKET) 17 gm DAILY PO Last administered on 05/28/18 08:49; Start 05/26/18 at 14:00 Warfarin Sodium (Coumadin) 7.5 mg 1X WARF ONCE PO Last administered on 05/27/18 17:56; Start 05/27/18 at 16:00; Stop 05/27/18 at 16:01; Status DC Micafungin Sodium 100 mg/Dextrose 100 ml @ 100 mls/hr Q24H IV Last administered on 05/28/18 12:01; Start 05/27/18 at 12:00 Warfarin Sodium (Coumadin) 6 mg 1X WARF ONCE PO Last administered on 05/28/18 17:32; Start 05/28/18 at 16:00; Stop 05/28/18 at 16:01; Status DC Ascorbic Acid (Vitamin C) 500 mg DAILY PO Last administered on 05/28/18 17:33; Start 05/28/18 at 16:00 Active Scripts Active Digoxin 125 Mcg Tablet 125 Mcg PO DAILY Furosemide 40 Mg Tablet 40 Mg PO DAILY Metoprolol Tartrate 50 Mg Tablet 50 Mg PO BID [Warfarin Sodium] 1 EACH Each 1 Each PRN DAILY PRN Lisinopril 20 Mg Tablet 20 Mg PO DAILY Duoneb 0.5-3(2.5) Mg/3 Ml (Albuterol/Ipratropium) 3 Ml Ampul.neb 3 Ml NEB Q4HRS W/A 30 Days Hydralazine Hcl 10 Mg Tablet 10 Mg PO TID Reported Zonisamide 100 Mg Capsule 400 Mg PO DAILY Percocet 5-325 Mg Tablet (Oxycodone/Acetaminophen) 1 Each Tablet 1 Tab PO PRN Q4HRS PRN Multivitamins (Multivitamin) 1 Each Tablet 1 Tab PO DAILY Levetiracetam 250 Mg Tablet 1,250 Mg PO BID Novolin N (Nph, Human Insulin Isophane) 100 Unit/1 Ml Vial Unknown Dose SQ Atorvastatin Calcium 80 Mg Tablet 1 Tab PO DAILY Acetaminophen 500 Mg Tablet 1 Tab PO PRN Q6HRS PRN Albuterol Sulfate Hfa Inhaler (Albuterol Sulfate) 8.5 Gm Hfa.aer.ad 2 Puff IH PRN Q6HRS PRN Aspirin Ec (Aspirin) 325 Mg Tablet.dr 81 Mg PO DAILY Crestor (Rosuvastatin Calcium) 40 Mg Tablet 40 Mg PO DAILY Warfarin Sodium 5 Mg Tablet 6 Mg PO DAILY Warfarin Sodium 2.5 Mg Tablet 2.5 Mg PO 3X/WEEK monday,monday, Gabapentin (Gabapentin) 300 Mg Capsule 300 Mg PO DAILY Risperidone 1 Mg Tablet 1 Mg PO HS Novolog (Insulin Aspart) 100 Unit/1 Ml Vial 10 Unit SQ DAILYAC Oxycodone-Acetaminophen 10-325 (Oxycodone Hcl/Acetaminophen) 1 Each Tablet 1 Each PO PRN Q6HRS Potassium 99 Mg Tablet 20 Meq PO DAILY Prednisone (Prednisone) 10 Mg Tablet 10 Mg PO DAILY Metformin Hcl 500 Mg Tablet 1,000 Mg PO BIDBFRMEAL Vitals/I & O Vital Sign - Last 24 Hours 05/28/18 05/28/18 05/28/18 05/28/18 12:33 13:23 15:00 16:07 Pulse 57 Resp 12 B/P (MAP) 143/56 Pulse Ox 99 99 O2 Delivery Nasal Cannula Nasal Cannula O2 Flow Rate 2.0 3.0 05/28/18 05/28/18 05/28/18 05/28/18 17:18 19:15 19:37 20:30 Temp 100.7 99.6 100.7 99.6 Pulse 69 72 Resp 24 25 B/P (MAP) 137/72 (93) 138/39 (72) Pulse Ox 96 95 O2 Delivery Nasal Cannula Nasal Cannula Nasal Cannula Nasal Cannula O2 Flow Rate 2.0 2.0 2.0 2.0 05/28/18 05/29/18 05/29/18 05/29/18 23:59 02:22 03:59 04:13 Temp 99.9 98.2 99.9 98.2 Pulse 81 87 Resp 21 B/P (MAP) 131/47 (75) 106/48 (67) Pulse Ox 95 96 O2 Delivery Nasal Cannula Nasal Cannula Room Air Nasal Cannula O2 Flow Rate 2.0 2.0 2.0 2.0 05/29/18 05/29/18 05/29/18 05/29/18 05:14 07:00 07:25 08:00 Temp 97.9 97.9 Pulse 62 Resp 17 B/P (MAP) 112/36 (61) Pulse Ox 93 O2 Delivery Nasal Cannula Nasal Cannula Nasal Cannula Nasal Cannula O2 Flow Rate 2.0 2.0 2.0 2.0 05/29/18 11:42 O2 Delivery Nasal Cannula O2 Flow Rate 2.0 Intake and Output 05/28/18 05/28/18 05/29/18 14:59 22:59 06:59 Intake Total 200 ml 240 ml 200 ml Output Total 925 ml Balance 200 ml 240 ml -725 ml Nutrition Consultation Dietary Evaluation: Recommendations by RD: Increase Calorie Intake, Protein supplementation Comments: REC continue ADA/cardiac diet, can liberalize as needed to provide foods that pt likes continue Glucerna TID (chocolate) Continue MVI REC Vit C (500 mg BID) Expected Outcomes/Goals: PO intake to meet >75% est needs - not met, goal ongoing Malnutrition Findings: Food and Nutrition Intake (Mod: <75% est energy req 7days Weight Status: Appropriate ZAK MENDEZ MD May 29, 2018 12:31
[2018-05-29] MEDS: DAPTOmycin (GENERIC) IVPB 590 MG in IV NORMAL SALINE 50ML 50 ML IV SCH (12:41)
[2018-05-29] MEDS: MICAFUNGIN 100 MG in IV DEXTROSE 5% 100ML 100 ML IV SCH (12:43)
[2018-05-29] MEDS: oxyCODONE/APAP 10/325 1 TAB TABLET PO PRN (14:17)
[2018-05-29] MEDS ORDERED: WARFARIN 3 MG TABLET. PO ONE (16:00)
[2018-05-29] MEDS: ATORVASTATIN CALCIUM 40 MG TABLET. PO SCH (20:34)
[2018-05-29] MEDS: risperiDONE 1 MG TABLET. PO SCH (20:35)
[2018-05-30 03:13] VITALS: BP 151/64
[2018-05-30 04:26] LABS: PROTHROMBIN TIME PATIENT 22.8 SEC (11.7-14.0)
[2018-05-30] MEDS: IV RINGERS,LACTATED 1000ML 1,000 ML IV SCH ×2 (06:00→19:20)
[2018-05-30 07:30] VITALS: BP 151/83
[2018-05-30] MEDS: INSULIN LISPRO 300 UNITS/3 ML INSULN.PEN. SQ SCH ×4 (08:00→17:00)
[2018-05-30] MEDS: IPRATRPIUM/ALBUTEROL 0.5/2.5MG 3 ML NEBU. NEB SCH ×5 (08:13→22:00)
--- NOTE | 2018-05-30 08:24 | PDOC ---
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 MANAGER 05/30/18 0824: SURGICAL PROGRESS NOTE Subjective denies abdominal pain tolerating diet Vital Signs Vital Signs Date Time Temp Pulse Resp B/P (MAP) Pulse Ox O2 Delivery O2 Flow Rate FiO2 05/30/18 08:13 98 Nasal Cannula 2.0 05/30/18 07:30 98.6 99 16 151/83 (105) 98.6 I&O Intake and Output 05/30/18 07:00 Intake Total 200 ml Output Total 1000 ml Balance -800 ml Intake Oral 200 ml Output Urine Total 1000 ml General: Cooperative, No acute distress Abdomen: Soft, No tenderness Labs Laboratory Tests Test 05/28/18 11:48 05/28/18 17:15 05/28/18 20:51 05/29/18 07:45 Glucose (Fingerstick) 139 mg/dL (70-99) 129 mg/dL (70-99) 117 mg/dL (70-99) White Blood Count 12.0 x10^3/uL (4.0-11.0) Red Blood Count 2.91 x10^6/uL (4.30-5.70) Hemoglobin 7.6 g/dL (13.0-17.5) Hematocrit 24.3 % (39.0-53.0) Mean Corpuscular Volume 84 fL (79-100) Mean Corpuscular Hemoglobin 26 pg (25-35) Mean Corpuscular Hemoglobin Concent 31 g/dL (31-37) Red Cell Distribution Width 16.1 % (11.5-14.5) Platelet Count 304 x10^3/uL (140-400) Neutrophils (%) (Auto) 82 % (31-73) Lymphocytes (%) (Auto) 6 % (24-48) Monocytes (%) (Auto) 10 % (0-9) Eosinophils (%) (Auto) 2 % (0-3) Basophils (%) (Auto) 0 % (0-3) Neutrophils # (Auto) 9.8 x10^3uL (1.8-7.7) Lymphocytes # (Auto) 0.7 x10^3/uL (1.0-4.8) Monocytes # (Auto) 1.2 x10^3/uL (0.0-1.1) Eosinophils # (Auto) 0.2 x10^3/uL (0.0-0.7) Basophils # (Auto) 0.1 x10^3/uL (0.0-0.2) Prothrombin Time 21.9 SEC (11.7-14.0) Prothromb Time International Ratio 1.9 (0.8-1.1) Sodium Level 137 mmol/L (136-145) Potassium Level 4.3 mmol/L (3.5-5.1) Chloride Level 103 mmol/L (98-107) Carbon Dioxide Level 25 mmol/L (21-32) Anion Gap 9 (6-14) Blood Urea Nitrogen 16 mg/dL (8-26) Creatinine 1.2 mg/dL (0.7-1.3) Estimated GFR (Cockcroft-Gault) 58.9 BUN/Creatinine Ratio 13 (6-20) Glucose Level 111 mg/dL (70-99) Calcium Level 8.2 mg/dL (8.5-10.1) Total Bilirubin 0.6 mg/dL (0.2-1.0) Aspartate Amino Transf (AST/SGOT) 73 U/L (15-37) Alanine Aminotransferase (ALT/SGPT) 32 U/L (16-63) Alkaline Phosphatase 95 U/L (46-116) Total Protein 6.1 g/dL (6.4-8.2) Albumin 1.5 g/dL (3.4-5.0) Albumin/Globulin Ratio 0.3 (1.0-1.7) Test 05/29/18 08:46 05/29/18 12:09 05/29/18 16:50 05/29/18 20:48 Glucose (Fingerstick) 101 mg/dL (70-99) 100 mg/dL (70-99) 124 mg/dL (70-99) 97 mg/dL (70-99) Test 05/30/18 03:40 05/30/18 07:32 Prothrombin Time 22.8 SEC (11.7-14.0) Prothromb Time International Ratio 2.0 (0.8-1.1) Glucose (Fingerstick) 94 mg/dL (70-99) Laboratory Tests Test 05/29/18 08:46 05/29/18 12:09 05/29/18 16:50 05/29/18 20:48 Glucose (Fingerstick) 101 mg/dL (70-99) 100 mg/dL (70-99) 124 mg/dL (70-99) 97 mg/dL (70-99) Test 05/30/18 03:40 05/30/18 07:32 Prothrombin Time 22.8 SEC (11.7-14.0) Prothromb Time International Ratio 2.0 (0.8-1.1) Glucose (Fingerstick) 94 mg/dL (70-99) Problem List Problems Medical Problems: (1) Fever Status: Acute (2) Gangrene of toe Status: Acute (3) Leukocytosis Status: Acute (4) Severe sepsis Status: Acute Assessment/Plan afebrile appears nontender, tolerating diet no surgical plans DAVY NAQVI MD 05/30/18 1337: SURGICAL PROGRESS NOTE Assessment/Plan Pt seen and examined. Agree with Ms. Miles's note Pt without c/o, bernice PO well denies abd pain d/w hospitalist no surgical plans, OK to work on D/c planning. LUKAS MILES APRN May 30, 2018 08:24 DAVY NAQVI MD May 30, 2018 13:37
--- NOTE | 2018-05-30 08:42 | PDOC ---
Infectious Disease Note Subjective Subjective Doing ok this morning- Feeling better Denies gen aches Low-grade fevers - better Denies pain/chills/SOA/upset stomach Vital Sign Vital Signs Vital Signs Date Time Temp Pulse Resp B/P (MAP) Pulse Ox O2 Delivery O2 Flow Rate FiO2 05/30/18 08:05 Nasal Cannula 2.0 05/30/18 07:30 98.6 99 16 151/83 (105) 93 98.6 Physical Exam PHYSICAL EXAM GEN: Propped up in bed, alert, Looks better HEENT: Pupils equally round, reactive. Normal conjunctivae. Oral cavity, pharynx pink, dry NECK: Supple. LUNGS: Clear anteriorly HEART: S1 and S2, soft murmur. Irregular. ABDOMEN: Obese, soft and Non tender with bowel sounds present. GENITOURINARY: Indwelling Crawley in place. 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 Left foot bandaged wound clean SKIN: Warm without rash. No peripheral stigmata. Several tattoos. NEUROLOGIC: Alert, coop - still a little confused Labs Lab Laboratory Tests Test 05/29/18 08:46 05/29/18 12:09 05/29/18 16:50 05/29/18 20:48 Glucose (Fingerstick) 101 mg/dL (70-99) 100 mg/dL (70-99) 124 mg/dL (70-99) 97 mg/dL (70-99) Test 05/30/18 03:40 05/30/18 07:32 Prothrombin Time 22.8 SEC (11.7-14.0) Prothromb Time International Ratio 2.0 (0.8-1.1) Glucose (Fingerstick) 94 mg/dL (70-99) Micro Microbiology 05/24/18 Blood Culture - Preliminary, Resulted NO GROWTH AFTER 2 DAYS 05/19/18 Urine Culture - Final, Complete 05/19/18 Urine Culture Result 1 (FELICITA) - Final, Complete 05/19/18 Anaerobic/Aerobic Culture - Final, Complete 05/19/18 Anaerobic Culture Result 1 (FELICITA) - Final, Complete 05/19/18 Aerobic Culture - Final, Complete 05/19/18 Aerobic Culture Result 1 (FELICITA) - Final, Complete 05/19/18 Aerobic Culture Result 2 (FELICITA) - Final, Complete 05/19/18 Antimicrobic Susceptibility - Final, Complete 05/19/18 Gram Stain - Final, Complete 05/19/18 Gram Stain Result 1 (FELICITA) - Final, Complete 05/19/18 Gram Stain Result 2 (FELICITA) - Final, Complete Objective Assessment Fevers better overall. repeat UA and BC from 05/24 neg so far Leukocytosis - better Constipation ? chlolecystisis - non tender MRSA bacteremia (4 of 4 bottles) with sepsis, POA source possible foot infection- Dapto sensitive 05/18 -CRYSTAL done no vegetations 05/21; BC from 05/20 & 05/21 neg Infected necrotic ulcer left ankle s/p I and D 05/21. 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 Severe PAD s/p BLE stents and previous toe amputations Bioprosthetic aortic valve Renal insufficiency/JIMMY - better Encephalopathy - improved but still some confusion Coagulopathy, on chronic warfarin A- fib RVR Diabetes Type II h/o PSA ( R quinolones & I imipenem) h/o group B strep bacteremia, 2016 Plan Plan of Care Gen surg following PICC line Cont Micafungin(05/27)/Dapto (susceptible 05/18) /Merrem (05/24), was on zosyn Repeat BC, UA c/s from 05/24 NGTD Monitor labs CK/BMP/LFTs in am and renal function closely Local wound care and offloading D/w MACARIO Glass MD May 30, 2018 08:41
--- NOTE | 2018-05-30 09:31 | PDOC ---
Provider Note Provider Note Vascular Surgery AF, VSS awake and alert right BKA dressing removed, incision is intact with no erythema, no drainage, no hematoma left lateral ankle wound clean with no drainage, no erythema A/P s/p right BKA and left lateral ankle debridement with no signs of infection and healing well - continue antibiotics per ID - follow up with Dr. Mendoza in 2-3 weeks and follow up in the [facility] wound care center weekly STEVEN SUTHERLAND MD May 30, 2018 09:31
[2018-05-30] MEDS: MORPHINE SULFATE 2 MG/ML VIAL. IV PRN (11:11)
[2018-05-30] MEDS: hydrALAZINE 10 MG TABLET PO SCH ×3 (11:27→20:38)
[2018-05-30] MEDS: ZONISAMIDE 100 MG CAPSULE. PO SCH (11:27)
[2018-05-30] MEDS: METOPROLOL TART IMMED RELEASE 50 MG TABLET. PO SCH ×2 (11:28→20:37)
[2018-05-30] MEDS: metFORMIN 500 MG TABLET PO SCH ×2 (11:28→15:28)
[2018-05-30] MEDS: ASCORBIC ACID 500 MG TABLET PO SCH (11:28)
[2018-05-30] MEDS: ASPIRIN ENTERIC COATED 81 MG TABLET.DR. PO SCH (11:28)
[2018-05-30] MEDS: GABAPENTIN 300 MG CAPSULE. PO SCH (11:28)
[2018-05-30] MEDS: FUROSEMIDE 40 MG TABLET. PO SCH (11:29)
[2018-05-30] MEDS: MULTIVITAMIN with MINERAL TABLET. PO SCH (11:29)
[2018-05-30] MEDS: POTASSIUM CHLORIDE 20 MEQ TABLET.ER. PO SCH (11:29)
[2018-05-30] MEDS: POLYETHYLENE GLYCOL 3350 17 GM PACKET. PO SCH (11:29)
[2018-05-30] MEDS: levETIRAcetam 250 MG TABLET PO SCH ×2 (11:29→20:39)
[2018-05-30] MEDS: MEROPENEM 500 MG in IV NORMAL SALINE 50ML 50 ML IV SCH ×3 (11:30→18:15)
--- NOTE | 2018-05-30 12:38 | NUR ---
Two successful attempts to access a vein to start a PICC line, but patient, being very confused and agitated pulled both wires out before catheter could be threaded each time. I alerted primary nurse and household cook. I advised nurse and metal cans supervisor that it would be helpful to have two sterile persons in the room to hold patient's arm before another attempt is made.
--- NOTE | 2018-05-30 12:44 | NUR ---
Pharmacy Warfarin Dosing Note S:Pharmacy consulted to assist with anticoagulation therapy started with target INR: 2 -3 O:VICKI BRAUN is a 78 year old M with Atrial Fibrillation LABS: Last INR: 2.0 Last HGB: 7.6 Last HCT: 24.3 Last PLT: 304 Last dose of 6 mg given on 05/29/18 at 1704 Previous Regimen: 4mg/day except 2 mg Sat/Sun Vitamin K given: Y 05/19: 10 MG SUB-Q, 05/20: 5 MG IV Drug Interaction Changes: New Interacting Drug Ongoing Drug Interactions: Zosyn A:INR of 2.0 is within desired range. Target range for this patient is: 2 -3 P: Warfarin dose: 6 mg Today at 1600 Bridge Therapy: None Next INR due 05/31/18 Pharmacy anticoagulation service will continue to follow. MATT FAYE RP, 05/30/18 [id number]
--- NOTE | 2018-05-30 12:56 | NUR ---
SW following pt. SW faxed pt's face sheet to [facility] to eval LTAC benefits. Will continue to follow.
[2018-05-30 13:08] VITALS: BP 136/66
--- NOTE | 2018-05-30 13:36 | NUR ---
SW following. Spoke with Gayle at [facility] and pt does have rev codes for LTAC. Referral faxed to [facility]. Pt acceptance and admission pending. CORTNEY CM regarding pt's insurance change to managed medicare in EMR. CORTNEY Physician.
[2018-05-30] MEDS ORDERED: LIDOCAINE WITH 8.4% SOD BICARB 3 ML DISP.SYRIN. ONE (13:48)
--- NOTE | 2018-05-30 13:57 | PDOC ---
PROGRESS NOTES Chief Complaint Chief Complaint Severe sepsis cellulitis w/ gangrenous toes MRSA bacteremia (4 of 4 bottles) with sepsis, POA source //foot infection -CRYSTAL done no vegetations 05/21; BC from 05/20 & 05/21 neg A. 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 A neoplastic etiology cannot be excluded and CT follow-up may be prudent. Small bilateral pleural effusions with mild bibasilar atelectasis. Distended gallbladder containing material of medium density. This may represent sludge History of Present Illness History of Present Illness plan LTAC or snu PICC to be placed cont urrent ID following PT/OT will need to reutn to [facility] at some time Vitals Vitals Vital Signs Date Time Temp Pulse Resp B/P (MAP) Pulse Ox O2 Delivery O2 Flow Rate FiO2 05/30/18 13:08 98.8 114 20 136/66 (89) 96 Nasal Cannula 3.0 98.8 Physical Exam Physical Exam GEN: Propped up in bed, alert, Looks better HEENT: Pupils equally round, reactive. Normal conjunctivae. Oral cavity, pharynx pink, dry NECK: Supple. LUNGS: Clear anteriorly HEART: S1 and S2, soft murmur. Irregular. ABDOMEN: Obese, soft and Non tender with bowel sounds present. GENITOURINARY: Indwelling Crawley in place. 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 Left foot bandaged wound clean SKIN: Warm without rash. No peripheral stigmata. Several tattoos. 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 and 2 gangrenous toes on the right, chronic hyperpigmentation bilateral shins and foot) Labs LABS Laboratory Tests Test 05/29/18 16:50 05/29/18 20:48 05/30/18 03:40 05/30/18 07:32 Glucose (Fingerstick) 124 mg/dL (70-99) 97 mg/dL (70-99) 94 mg/dL (70-99) Prothrombin Time 22.8 SEC (11.7-14.0) Prothromb Time International Ratio 2.0 (0.8-1.1) Test 05/30/18 12:49 Glucose (Fingerstick) 109 mg/dL (70-99) Assessment and Plan Assessmemt and Plan Problems Medical Problems: (1) Fever Status: Acute (2) Gangrene of toe Status: Acute (3) Leukocytosis Status: Acute (4) Severe sepsis Status: Acute Comment Review of Relevant I have reviewed the following items navi (where applicable) has been applied. Labs Laboratory Tests Test 05/28/18 17:15 05/28/18 20:51 05/29/18 07:45 05/29/18 08:46 Glucose (Fingerstick) 129 mg/dL (70-99) 117 mg/dL (70-99) 101 mg/dL (70-99) White Blood Count 12.0 x10^3/uL (4.0-11.0) Red Blood Count 2.91 x10^6/uL (4.30-5.70) Hemoglobin 7.6 g/dL (13.0-17.5) Hematocrit 24.3 % (39.0-53.0) Mean Corpuscular Volume 84 fL (79-100) Mean Corpuscular Hemoglobin 26 pg (25-35) Mean Corpuscular Hemoglobin Concent 31 g/dL (31-37) Red Cell Distribution Width 16.1 % (11.5-14.5) Platelet Count 304 x10^3/uL (140-400) Neutrophils (%) (Auto) 82 % (31-73) Lymphocytes (%) (Auto) 6 % (24-48) Monocytes (%) (Auto) 10 % (0-9) Eosinophils (%) (Auto) 2 % (0-3) Basophils (%) (Auto) 0 % (0-3) Neutrophils # (Auto) 9.8 x10^3uL (1.8-7.7) Lymphocytes # (Auto) 0.7 x10^3/uL (1.0-4.8) Monocytes # (Auto) 1.2 x10^3/uL (0.0-1.1) Eosinophils # (Auto) 0.2 x10^3/uL (0.0-0.7) Basophils # (Auto) 0.1 x10^3/uL (0.0-0.2) Prothrombin Time 21.9 SEC (11.7-14.0) Prothromb Time International Ratio 1.9 (0.8-1.1) Sodium Level 137 mmol/L (136-145) Potassium Level 4.3 mmol/L (3.5-5.1) Chloride Level 103 mmol/L (98-107) Carbon Dioxide Level 25 mmol/L (21-32) Anion Gap 9 (6-14) Blood Urea Nitrogen 16 mg/dL (8-26) Creatinine 1.2 mg/dL (0.7-1.3) Estimated GFR (Cockcroft-Gault) 58.9 BUN/Creatinine Ratio 13 (6-20) Glucose Level 111 mg/dL (70-99) Calcium Level 8.2 mg/dL (8.5-10.1) Total Bilirubin 0.6 mg/dL (0.2-1.0) Aspartate Amino Transf (AST/SGOT) 73 U/L (15-37) Alanine Aminotransferase (ALT/SGPT) 32 U/L (16-63) Alkaline Phosphatase 95 U/L (46-116) Total Protein 6.1 g/dL (6.4-8.2) Albumin 1.5 g/dL (3.4-5.0) Albumin/Globulin Ratio 0.3 (1.0-1.7) Test 05/29/18 12:09 05/29/18 16:50 05/29/18 20:48 05/30/18 03:40 Glucose (Fingerstick) 100 mg/dL (70-99) 124 mg/dL (70-99) 97 mg/dL (70-99) Prothrombin Time 22.8 SEC (11.7-14.0) Prothromb Time International Ratio 2.0 (0.8-1.1) Test 05/30/18 07:32 05/30/18 12:49 Glucose (Fingerstick) 94 mg/dL (70-99) 109 mg/dL (70-99) Laboratory Tests Test 05/29/18 16:50 05/29/18 20:48 05/30/18 03:40 05/30/18 07:32 Glucose (Fingerstick) 124 mg/dL (70-99) 97 mg/dL (70-99) 94 mg/dL (70-99) Prothrombin Time 22.8 SEC (11.7-14.0) Prothromb Time International Ratio 2.0 (0.8-1.1) Test 05/30/18 12:49 Glucose (Fingerstick) 109 mg/dL (70-99) Microbiology 05/27/18 Blood Culture - Preliminary, Resulted NO GROWTH AFTER 3 DAYS 05/19/18 Urine Culture - Final, Complete 05/19/18 Urine Culture Result 1 (FELICITA) - Final, Complete 05/19/18 Anaerobic/Aerobic Culture - Final, Complete 05/19/18 Anaerobic Culture Result 1 (FELICITA) - Final, Complete 05/19/18 Aerobic Culture - Final, Complete 05/19/18 Aerobic Culture Result 1 (FELICITA) - Final, Complete 05/19/18 Aerobic Culture Result 2 (FELICITA) - Final, Complete 05/19/18 Antimicrobic Susceptibility - Final, Complete 05/19/18 Gram Stain - Final, Complete 05/19/18 Gram Stain Result 1 (FELICITA) - Final, Complete 05/19/18 Gram Stain Result 2 (FELICITA) - Final, Complete Medications Current Medications Sodium Chloride 1,000 ml @ 2,190 mls/hr Q28M IV Last administered on 05/18/18at 14:36; Start 05/18/18 at 12:52; Stop 05/18/18 at 13:52; Status DC Piperacillin Sod/ Tazobactam Sod 4.5 gm/Sodium Chloride 100 ml @ 200 mls/hr 1X ONCE IV Last administered on 05/18/18at 14:34; Start 05/18/18 at 13:00; Stop 05/18/18 at 13:29; Status DC Vancomycin HCl (Vanco Per Pharmacy) 1 each 1X ONCE MC Last administered on 05/18/18at 13:00; Start 05/18/18 at 13:00; Stop 05/18/18 at 13:11; Status DC Vancomycin HCl 2 gm/Sodium Chloride 500 ml @ 250 mls/hr 1X ONCE IV Last administered on 05/18/18at 15:28; Start 05/18/18 at 13:15; Stop 05/18/18 at 15:14; Status DC Ondansetron HCl (Zofran) 4 mg PRN Q8HRS PRN IV NAUSEA/VOMITING; Start 05/18/18 at 14:45; Stop 05/18/18 at 15:28; Status DC Fentanyl Citrate (Fentanyl 2ml Vial) 50 mcg PRN Q1HR PRN IV PAIN; Start 05/18/18 at 14:45; Stop 05/19/18 at 11:50; Status DC Sodium Chloride 1,000 ml @ 80 mls/hr [id number] IV ; Start 05/18/18 at 14:43; Stop 05/18/18 at 18:42; Status DC Acetaminophen (Tylenol) 650 mg 1X ONCE PO Last administered on 05/18/18at 15:29; Start 05/18/18 at 15:30; Stop 05/18/18 at 15:31; Status DC Ondansetron HCl (Zofran) 4 mg PRN Q6HRS PRN IV NAUSEA/VOMITING Last a dministered on 05/24/18at 06:14; Start 05/18/18 at 15:30 Diltiazem HCl (Cardizem Iv Push) 10 mg 1X ONCE IVP ; Start 05/18/18 at 15:30; Stop 05/18/18 at 15:31; Status DC Acetaminophen (Tylenol) 500 mg PRN Q6HRS PRN PO MILD PAIN / TEMP; Start 05/18/18 at 15:30; Stop 05/18/18 at 16:14; Status DC Acetaminophen/ Codeine Phosphate (Tylenol #3) 1 tab PRN Q6HRS PRN PO MODERATE PAIN Last administered on 05/26/18at 21:56; Start 05/18/18 at 15:30 Morphine Sulfate (Morphine Sulfate) 2 mg PRN Q2HR PRN IV PAIN Last administered on 05/30/18at 11:11; Start 05/18/18 at 15:30 Oxycodone/ Acetaminophen (Percocet 5/325) 1 tab PRN Q4HRS PRN PO SEVERE PAIN Last administered on 05/27/18at 12:49; Start 05/18/18 at 15:30 Albuterol Sulfate (Ventolin Hfa) 2 puff PRN Q6HRS PRN IH SHORTNESS OF BREATH; Start 05/18/18 at 15:30; Status UNV Digoxin (Lanoxin) 125 mcg DAILY PO ; Start 05/19/18 at 09:00; Stop 05/19/18 at 09:00; Status DC Furosemide (Lasix) 40 mg DAILY PO Last administered on 05/30/18 11:29; Start 05/19/18 at 09:00 Gabapentin (Neurontin) 300 mg DAILY PO Last administered on 05/30/18 11:28; Start 05/19/18 at 09:00 Lisinopril (Prinivil) 20 mg DAILY PO Last administered on 05/19/18 10:14; Start 05/19/18 at 09:00; Stop 05/24/18 at 15:20; Status DC Metoprolol Tartrate (Lopressor) 50 mg BID PO Last administered on 05/30/18 11:28; Start 05/18/18 at 21:00 Oxycodone/ Acetaminophen (Percocet 10/325) 1 tab PRN Q6HRS PRN PO SEVERE PAIN (2ND Choice) Last administered on 05/29/18 14:17; Start 05/18/18 at 15:30 Oxycodone/ Acetaminophen (Percocet 5/325) 1 tab PRN Q4HRS PRN PO PAIN; Start 05/18/18 at 15:30; Status UNV Acetaminophen (Tylenol) 500 mg PRN Q6HRS PRN PO MILD PAIN / TEMP Last administered on 05/27/18at 23:35; Start 05/18/18 at 16:15 Atorvastatin Calcium (Lipitor) 80 mg QHS PO Last administered on 05/29/18 20:34; Start 05/18/18 at 21:00 Hydralazine HCl (Apresoline) 10 mg TID PO Last administered on 05/30/18 11:27; Start 05/18/18 at 16:00 Insulin Human Lispro (HumaLOG) 10 units DAILYWBKFT SQ Last administered on 05/23/18 08:58; Start 05/18/18 at 17:00; Stop 05/23/18 at 14:25; Status DC Levetiracetam (Keppra) 1,250 mg BID PO Last administered on 05/30/18 11:29; Start 05/18/18 at 21:00 Metformin HCl (Glucophage) 1,000 mg BIDWMEALS PO Last administered on 05/30/18 11:28; Start 05/18/18 at 17:00 Multivitamins (Thera M Plus) 1 tab DAILY PO Last administered on 05/30/18 11:29; Start 05/19/18 at 09:00 Potassium Chloride (Klor-Con) 20 meq DAILYWBKFT PO Last administered on 05/30/18 11:29; Start 05/19/18 at 08:00 Risperidone (RisperDAL) 1 mg QHS PO Last administered on 05/29/18 20:35; Start 05/18/18 at 21:00 Non-Formulary Medication (Rosuvastatin Calcium (Crestor)) 40 mg DAILY PO ; Start 05/19/18 at 09:00; Status UNV Zonisamide (Zonegran) 400 mg DAILY PO Last administered on 05/30/18 11:27; Start 05/19/18 at 09:00 Albuterol/ Ipratropium (Duoneb) 3 ml Q4HRS W/A NEB Last administered on 05/08 12:18; Start 05/18/18 at 18:00 Insulin Human Lispro (HumaLOG) 0-9 UNITS TIDWMEALS SQ Last administered on 05/26/18 18:04; Start 05/18/18 at 17:00 Dextrose (Dextrose 50%-Water Syringe) 12.5 gm PRN Q15MIN PRN IV SEE COMMENTS Last administered on 05/25/18 06:04; Start 05/18/18 at 15:30 Albuterol Sulfate (Ventolin Neb Soln) 2.5 mg PRN Q6HRS PRN NEB SHORTNESS OF BREATH Last administered on 05/26/18 08:35; Start 05/18/18 at 15:45 Piperacillin Sod/ Tazobactam Sod 3.375 gm/Sodium Chloride 50 ml @ 100 mls/hr Q6HRS IV Last administered on 05/24/18 05:33; Start 05/18/18 at 18:00; Stop 05/24/18 at 08:09; Status DC Potassium Chloride (Klor-Con) 40 meq 1X ONCE PO Last administered on 05/19/18 10:14; Start 05/19/18 at 08:30; Stop 05/19/18 at 08:31; Status DC Heparin Sodium (Porcine) (Heparin Sodium) 5,000 unit Q8HRS SQ ; Start 05/19/18 at 14:00; Stop 05/19/18 at 14:00; Status DC Furosemide (Lasix) 40 mg 1X ONCE IVP Last administered on 05/19/18at 10:12; Start 05/19/18 at 08:45; Stop 05/19/18 at 08:46; Status DC Phytonadione (Vitamin K Ampule) 10 mg 1X ONCE SQ Last administered on 05/19/18at 10:16; Start 05/19/18 at 10:00; Stop 05/19/18 at 10:01; Status DC Vancomycin HCl (Vanco Per Pharmacy) 1 each PRN DAILY PRN MC SEE COMMENTS Last administered on 05/19/18at 10:32; Start 05/19/18 at 10:00; Stop 05/20/18 at 10:42; Status DC Phytonadione (Vitamin K Ampule) 10 mg 1X ONCE SQ ; Start 05/19/18 at 10:15; Stop 05/19/18 at 10:16; Status UNV Vancomycin HCl 1.75 gm/Sodium Chloride 500 ml @ 250 mls/hr Q24H IV Last administered on 05/19/18at 16:59; Start 05/19/18 at 16:00; Stop 05/20/18 at 10:42; Status DC Vancomycin HCl (Vancomycin Trough Level) 1 each 1X ONCE MC ; Start 05/20/18 at 16:30; Stop 05/20/18 at 16:30; Status DC Acetaminophen (Tylenol Supp) 650 mg PRN Q6HRS PRN NM MILD PAIN / TEMP Last administered on 05/23/18at 23:33; Start 05/20/18 at 01:15 Sodium Chloride 500 ml @ 333 mls/hr 1X ONCE IV Last administered on 05/20/18at 01:14; Start 05/20/18 at 01:15; Stop 05/20/18 at 02:45; Status DC Phytonadione 5 mg/ Dextrose 50.5 ml @ 101 mls/hr 1X ONCE IV Last administered on 05/20/18at 10:08; Start 05/20/18 at 10:30; Stop 05/20/18 at 10:59; Status DC Daptomycin 590 mg/ Sodium Chloride 50 ml @ 100 mls/hr Q24H IV Last administered on 05/29/18at 12:41; Start 05/20/18 at 12:00 Ondansetron HCl (Zofran) 4 mg PRN Q6HRS PRN IV NAUSEA/VOMITING; Start 05/21/18 at 09:45; Stop 05/22/18 at 09:44; Status DC Fentanyl Citrate (Fentanyl 2ml Vial) 25 mcg PRN Q5MIN PRN IV MILD PAIN; Start 05/21/18 at 09:45; Stop 05/22/18 at 09:44; Status DC Fentanyl Citrate (Fentanyl 2ml Vial) 50 mcg PRN Q5MIN PRN IV MODERATE TO SEVERE PAIN; Start 05/21/18 at 09:45; Stop 05/22/18 at 09:44; Status DC Morphine Sulfate (Morphine Sulfate) 1 mg PRN Q10MIN PRN IV SEVERE PAIN; Start 05/21/18 at 09:45; Stop 05/22/18 at 09:44; Status DC Ringer's Solution 1,000 ml @ 30 mls/hr Q24H IV ; Start 05/21/18 at 09:39; Stop 05/22/18 at 00:37; Status DC Lidocaine HCl (Xylocaine-Mpf 1% 2ml Vial) 2 ml 1X PRN PRN ID IV START; Start 05/21/18 at 09:45; Stop 05/22/18 at 09:44; Status DC Hydromorphone HCl (Dilaudid) 0.5 mg PRN Q10MIN PRN IV SEV PAIN, Second choice; Start 05/21/18 at 09:45; Stop 05/22/18 at 09:44; Status DC Prochlorperazine Edisylate (Compazine) 5 mg PACU PRN PRN IV NAUSEA, MRX1; Start 05/21/18 at 09:45; Stop 05/22/18 at 09:44; Status DC Lidocaine HCl (Glydo (Lidocaine) Jelly) 1 vianney 1X ONCE MM ; Start 05/21/18 at 12:30; Stop 05/21/18 at 12:31; Status DC Propofol 20 ml @ As Directed STK-MED ONCE IV ; Start 05/21/18 at 12:27; Stop 05/21/18 at 12:28; Status DC Dexamethasone Sodium Phosphate (Decadron) 20 mg STK-MED ONCE .ROUTE ; Start 05/21/18 at 12:27; Stop 05/21/18 at 12:28; Status DC Famotidine (Pepcid Vial) 20 mg STK-MED ONCE .ROUTE ; Start 05/21/18 at 12:27; Stop 05/21/18 at 12:28; Status DC Lidocaine HCl (Lidocaine Pf 2% Vial) 5 ml STK-MED ONCE .ROUTE ; Start 05/21/18 at 12:27; Stop 05/21/18 at 12:28; Status DC Ondansetron HCl (Zofran) 4 mg STK-MED ONCE .ROUTE ; Start 05/21/18 at 12:27; Stop 05/21/18 at 12:28; Status DC Fentanyl Citrate (Fentanyl 2ml Vial) 100 mcg STK-MED ONCE .ROUTE ; Start 05/21/18 at 12:27; Stop 05/21/18 at 12:28; Status DC Bacitracin 21772 unit/Sodium Chloride 500 ml @ 500 mls/hr 1X ONCE IRR ; Start 05/21/18 at 12:40; Stop 05/21/18 at 13:39; Status DC Cefazolin Sodium 1 gm/Sodium Chloride 500 ml @ 500 mls/hr 1X ONCE IRR ; Start 05/21/18 at 12:40; Stop 05/21/18 at 13:39; Status DC Lidocaine HCl 20 ml STK-MED ONCE .ROUTE ; Start 05/21/18 at 11:42; Stop 05/21/18 at 12:42; Status DC Esmolol HCl (Brevibloc) 100 mg STK-MED ONCE IVP ; Start 05/21/18 at 13:01; Stop 05/21/18 at 13:02; Status DC Esmolol HCl (Brevibloc) 100 mg STK-MED ONCE IVP ; Start 05/21/18 at 14:22; Stop 05/21/18 at 14:23; Status DC Neomycin/ Polymyxin/ Bacitracin (Triple Antibiotic Ointment) 1 pkt STK-MED ONCE TP Last administered on 05/21/18at 14:41; Start 05/21/18 at 13:38; Stop 05/21/18 at 14:38; Status DC Sevoflurane (Ultane) 90 ml STK-MED ONCE IH ; Start 05/21/18 at 14:40; Stop 05/21/18 at 14:41; Status DC Naloxone HCl (Narcan) 0.4 mg PRN Q2MIN PRN IV SEE INSTRUCTIONS; Start 05/21/18 at 15:00 Sodium Chloride 1,000 ml @ 25 mls/hr Q24H IV ; Start 05/21/18 at 14:57; Stop 05/24/18 at 07:00; Status DC Morphine Sulfate 30 ml @ 0 mls/hr CONT PRN PRN IV PER PROTOCOL; Start 05/21/18 at 15:00 Labetalol HCl (Normodyne Iv Push) 20 mg PRN Q2HR PRN IVP HYPERTENSION, SEE COMMENTS Last administered on 05/24/18at 00:15; Start 05/21/18 at 15:30 Labetalol HCl (Normodyne Iv Push) 5 mg 1X PACU PRN IVP tachycardia and HTN Last administered on 05/21/18at 15:30; Start 05/21/18 at 15:30; Stop 05/22/18 at 09:09; Status DC Insulin Glargine (Lantus) 3 units 1X ONCE SQ Last administered on 05/21/18at 22:00; Start 05/21/18 at 22:00; Stop 05/22/18 at 01:31; Status DC Aspirin (Ecotrin) 81 mg DAILYWBKFT PO Last administered on 05/30/18at 11:28; Start 05/23/18 at 08:00 Digoxin (Lanoxin) 250 mcg 1X ONCE IV Last administered on 05/22/18at 12:28; Start 05/22/18 at 12:30; Stop 05/22/18 at 12:31; Status DC Warfarin Sodium (Coumadin) 6 mg DAILY16 PO ; Start 05/22/18 at 16:00; Stop 05/22/18 at 16:00; Status DC Warfarin Sodium (Coumadin) 2.5 mg 3X/WEEK PO ; Start 05/23/18 at 09:00; Status UNV Warfarin Sodium (Coumadin Per Physician) 1 each PRN DAILY PRN MC SEE COMMENTS; Start 05/22/18 at 14:45; Stop 05/22/18 at 14:57; Status DC Warfarin Sodium (Coumadin Per Pharmacy) 1 each PRN DAILY PRN MC SEE COMMENTS Last administered on 05/30/18at 12:43; Start 05/22/18 at 15:00 Warfarin Sodium (Coumadin) 4 mg 1X WARF ONCE PO Last administered on 05/22/18at 16:19; Start 05/22/18 at 16:00; Stop 05/22/18 at 16:01; Status DC Warfarin Sodium (Coumadin) 4 mg 1X WARF ONCE PO ; Start 05/23/18 at 16:00; Stop 05/23/18 at 16:01; Status DC Ringer's Solution 1,000 ml @ 75 mls/hr [id number] IV ; Start 05/23/18 at 13:45; Status Cancel Ringer's Solution 1,000 ml @ 75 mls/hr [id number] IV Last administered on 05/29/18at 17:05; Start 05/23/18 at 14:00 Insulin Human Lispro (HumaLOG) 7 units DAILYWBKFT SQ ; Start 05/24/18 at 08:00; Stop 05/25/18 at 12:44; Status DC Dextrose (Dextrose 50%-Water Syringe) 25 gm 1X ONCE IV Last administered on 05/23/18at 13:15; Start 05/23/18 at 17:45; Stop 05/23/18 at 17:46; Status DC Meropenem 500 mg/ Sodium Chloride 50 ml @ 100 mls/hr Q6HRS IV Last administered on 05/30/18 11:30; Start 05/24/18 at 12:00 Warfarin Sodium (Coumadin) 6 mg 1X WARF ONCE PO Last administered on 05/24/18at 15:33; Start 05/24/18 at 16:00; Stop 05/24/18 at 16:01; Status DC Insulin Human Lispro (HumaLOG) 3 units DAILYWBKFT SQ Last administered on 05/28/18 09:06; Start 05/26/18 at 08:00 Warfarin Sodium (Coumadin) 6 mg 1X WARF ONCE PO Last administered on 05/25/18at 16:04; Start 05/25/18 at 16:00; Stop 05/25/18 at 16:01; Status DC Polyethylene Glycol (miraLAX PACKET) 17 gm DAILY PO Last administered on 05/30/18 11:29; Start 05/26/18 at 14:00 Warfarin Sodium (Coumadin) 7.5 mg 1X WARF ONCE PO Last administered on 05/27/18at 17:56; Start 05/27/18 at 16:00; Stop 05/27/18 at 16:01; Status DC Micafungin Sodium 100 mg/Dextrose 100 ml @ 100 mls/hr Q24H IV Last administered on 05/29/18at 12:43; Start 05/27/18 at 12:00 Warfarin Sodium (Coumadin) 6 mg 1X WARF ONCE PO Last administered on 05/28/18at 17:32; Start 05/28/18 at 16:00; Stop 05/28/18 at 16:01; Status DC Ascorbic Acid (Vitamin C) 500 mg DAILY PO Last administered on 05/30/18at 11:28; Start 05/28/18 at 16:00 Warfarin Sodium (Coumadin) 6 mg 1X WARF ONCE PO Last administered on 05/29/18at 17:04; Start 05/29/18 at 16:00; Stop 05/29/18 at 16:01; Status DC Warfarin Sodium (Coumadin) 6 mg 1X WARF ONCE PO ; Start 05/30/18 at 16:00; Stop 05/30/18 at 16:01 Lidocaine/Sodium Bicarbonate (Buffered Lidocaine 1%) 3 ml STK-MED ONCE .ROUTE ; Start 05/30/18 at 13:48; Stop 05/30/18 at 13:49; Status DC Active Scripts Active Digoxin 125 Mcg Tablet 125 Mcg PO DAILY Furosemide 40 Mg Tablet 40 Mg PO DAILY Metoprolol Tartrate 50 Mg Tablet 50 Mg PO BID [Warfarin Sodium] 1 EACH Each 1 Each MC PRN DAILY PRN Lisinopril 20 Mg Tablet 20 Mg PO DAILY Duoneb 0.5-3(2.5) Mg/3 Ml (Albuterol/Ipratropium) 3 Ml Ampul.neb 3 Ml NEB Q4HRS W/A 30 Days Hydralazine Hcl 10 Mg Tablet 10 Mg PO TID Reported Zonisamide 100 Mg Capsule 400 Mg PO DAILY Percocet 5-325 Mg Tablet (Oxycodone/Acetaminophen) 1 Each Tablet 1 Tab PO PRN Q4HRS PRN Multivitamins (Multivitamin) 1 Each Tablet 1 Tab PO DAILY Levetiracetam 250 Mg Tablet 1,250 Mg PO BID Novolin N (Nph, Human Insulin Isophane) 100 Unit/1 Ml Vial Unknown Dose SQ Atorvastatin Calcium 80 Mg Tablet 1 Tab PO DAILY Acetaminophen 500 Mg Tablet 1 Tab PO PRN Q6HRS PRN Albuterol Sulfate Hfa Inhaler (Albuterol Sulfate) 8.5 Gm Hfa.aer.ad 2 Puff IH PRN Q6HRS PRN Aspirin Ec (Aspirin) 325 Mg Tablet.dr 81 Mg PO DAILY Crestor (Rosuvastatin Calcium) 40 Mg Tablet 40 Mg PO DAILY Warfarin Sodium 5 Mg Tablet 6 Mg PO DAILY Warfarin Sodium 2.5 Mg Tablet 2.5 Mg PO 3X/WEEK monday,monday, Gabapentin (Gabapentin) 300 Mg Capsule 300 Mg PO DAILY Risperidone 1 Mg Tablet 1 Mg PO HS Novolog (Insulin Aspart) 100 Unit/1 Ml Vial 10 Unit SQ DAILYAC Oxycodone-Acetaminophen 10-325 (Oxycodone Hcl/Acetaminophen) 1 Each Tablet 1 Each PO PRN Q6HRS Potassium 99 Mg Tablet 20 Meq PO DAILY Prednisone (Prednisone) 10 Mg Tablet 10 Mg PO DAILY Metformin Hcl 500 Mg Tablet 1,000 Mg PO BIDBFRMEAL Vitals/I & O Vital Sign - Last 24 Hours 05/29/18 05/29/18 05/29/18 05/29/18 14:17 14:17 15:17 15:20 Temp 97.8 97.8 Pulse 64 55 Resp 16 16 18 B/P (MAP) 119/94 105/50 (68) Pulse Ox 98 94 95 O2 Delivery Nasal Cannula Nasal Cannula Nasal Cannula O2 Flow Rate 2.0 3.0 2.0 05/29/18 05/29/18 05/29/18 05/29/18 19:34 19:58 20:30 20:35 Pulse 122 B/P (MAP) 116/63 (80) 116/63 Pulse Ox 98 O2 Delivery Nasal Cannula Nasal Cannula Nasal Cannula O2 Flow Rate 2.0 2.0 2.0 05/29/18 05/29/18 05/29/18 05/30/18 20:35 23:24 23:42 03:13 Temp 97.9 98.0 97.9 98.0 Pulse 122 73 69 Resp 24 16 B/P (MAP) 116/63 132/56 (81) 151/64 (93) Pulse Ox 92 90 O2 Delivery Nasal Cannula Nasal Cannula Nasal Cannula O2 Flow Rate 2.0 2.0 3.0 05/30/18 05/30/18 05/30/18 05/30/18 07:30 08:05 08:13 11:11 Temp 98.6 98.6 Pulse 99 Resp 16 16 B/P (MAP) 151/83 (105) Pulse Ox 93 98 98 O2 Delivery Nasal Cannula Nasal Cannula Nasal Cannula Nasal Cannula O2 Flow Rate 3.0 2.0 2.0 2.0 05/30/18 05/30/18 05/30/18 05/30/18 11:27 11:28 11:41 12:17 Pulse 99 99 Resp 16 B/P (MAP) 151/83 151/83 Pulse Ox 98 O2 Delivery Nasal Cannula Nasal Cannula O2 Flow Rate 2.0 2.0 05/30/18 13:08 Temp 98.8 98.8 Pulse 114 Resp 20 B/P (MAP) 136/66 (89) Pulse Ox 96 O2 Delivery Nasal Cannula O2 Flow Rate 3.0 Intake and Output 05/29/18 05/29/18 05/30/18 15:00 23:00 07:00 Intake Total 200 ml Output Total 1000 ml Balance -800 ml Nutrition Consultation Dietary Evaluation: Recommendations by RD: Increase Calorie Intake, Protein supplementation Comments: REC continue ADA/cardiac diet, can liberalize as needed to provide foods that pt likes continue Glucerna TID (chocolate) Continue MVI REC Vit C (500 mg BID) Expected Outcomes/Goals: PO intake to meet >75% est needs - not met, goal ongoing Malnutrition Findings: Food and Nutrition Intake (Mod: <75% est energy req 7days Weight Status: Appropriate ZAK MENDEZ MD May 30, 2018 13:57
--- NOTE | 2018-05-30 14:48 | RAD ---
Procedure: Upper extremity PICC line placement Clinical Indication: 78-year-old requiring central venous access Sedation: Local anesthesia only was provided Antibiotics: None Fluoro Time: 0.2 minutes. Images: 2 Contrast: None Sterility: All elements of maximal sterile barrier technique including the use of a cap, mask, sterile gown, sterile gloves, large sterile sheet, appropriate hand hygiene, and 2% chlorhexidine for cutaneous antisepsis (or acceptable alternative antiseptic per current guidelines) were followed for this procedure. Consent: The procedure was explained in its entirety to the patient or the patients designated marketing representative by a member of the treatment team, including a discussion of the risks, benefits and commonly accepted alternatives to the procedure, as well as the expected consequences of no therapy whatsoever. Discussion of the risks included, but was not limited to, those that are most frequent and those that are rare but possibly severe or life-threatening, as well as the possibility of unforeseen complications. Technique and Findings: Following informed consent, the patient was prepped and draped in the usual sterile fashion. Ultrasound interrogation of the right arm revealed patency and compressibility of the right basilic vein. A hard copy ultrasound image was recorded. 1% Lidocaine was used to achieve local anesthesia and a 21-gauge micropuncture needle was used to gain access to the targeted vein. The needle was exchanged over wire for a 5 [place] peel-away sheath which was used to deploy a PICC line under fluoroscopic guidance such that the distal tip resided at the cavoatrial junction. The catheter flushed and aspirated with ease and was sutured to the skin. Complications: No immediate Impression: 1. Ultrasound guided PICC line placement as described.
[2018-05-30] MEDS: MICAFUNGIN 100 MG in IV DEXTROSE 5% 100ML 100 ML IV SCH (15:15)
[2018-05-30] MEDS: DAPTOmycin (GENERIC) IVPB 590 MG in IV NORMAL SALINE 50ML 50 ML IV SCH (15:21)
[2018-05-30 15:45] VITALS: BP 140/47
[2018-05-30] MEDS ORDERED: WARFARIN 3 MG TABLET. PO ONE (16:00)
--- NOTE | 2018-05-30 16:10 | NUR ---
SW following pt. Spoke with [facility] and they are not able to take pt as pt's insurance will change to [employer] on 06/06/2018.
[2018-05-30] MEDS: oxyCODONE/APAP 10/325 1 TAB TABLET PO PRN (17:41)
[2018-05-30 19:20] VITALS: BP 167/46
[2018-05-30] MEDS: risperiDONE 1 MG TABLET. PO SCH (20:38)
[2018-05-30] MEDS: ATORVASTATIN CALCIUM 40 MG TABLET. PO SCH (20:38)
[2018-05-30 23:54] VITALS: BP 118/36
[2018-05-31 03:30] VITALS: BP 97/40
[2018-05-31] MEDS: MEROPENEM 500 MG in IV NORMAL SALINE 50ML 50 ML IV SCH ×5 (05:19→18:15)
[2018-05-31 05:43] LABS: ALBUMIN 1.5 g/dL (3.4-5.0); CALCIUM 8.1 mg/dL (8.5-10.1); DIRECT BILIRUBIN 0.3 mg/dL (0.0-0.2); GFR 72.6; POTASSIUM 4.2 mmol/L (3.5-5.1); TOTAL BILIRUBIN 0.5 mg/dL (0.2-1.0); TOTAL PROTEIN 6.2 g/dL (6.4-8.2)
[2018-05-31 07:20] VITALS: BP 113/42
[2018-05-31] MEDS: INSULIN LISPRO 300 UNITS/3 ML INSULN.PEN. SQ SCH ×4 (08:00→17:00)
[2018-05-31] MEDS: IPRATRPIUM/ALBUTEROL 0.5/2.5MG 3 ML NEBU. NEB SCH ×5 (08:35→22:00)
[2018-05-31] MEDS: ASPIRIN ENTERIC COATED 81 MG TABLET.DR. PO SCH (08:49)
[2018-05-31] MEDS: metFORMIN 500 MG TABLET PO SCH ×2 (08:50→17:00)
[2018-05-31] MEDS: hydrALAZINE 10 MG TABLET PO SCH ×3 (08:50→22:02)
[2018-05-31] MEDS: GABAPENTIN 300 MG CAPSULE. PO SCH (08:50)
[2018-05-31] MEDS: ZONISAMIDE 100 MG CAPSULE. PO SCH (08:51)
[2018-05-31] MEDS: FUROSEMIDE 40 MG TABLET. PO SCH (08:51)
[2018-05-31] MEDS: POTASSIUM CHLORIDE 20 MEQ TABLET.ER. PO SCH (08:51)
[2018-05-31] MEDS: levETIRAcetam 250 MG TABLET PO SCH ×2 (08:51→22:02)
[2018-05-31] MEDS: ASCORBIC ACID 500 MG TABLET PO SCH (08:51)
[2018-05-31] MEDS: METOPROLOL TART IMMED RELEASE 50 MG TABLET. PO SCH ×2 (08:52→22:02)
[2018-05-31] MEDS: MULTIVITAMIN with MINERAL TABLET. PO SCH (09:00)
[2018-05-31] MEDS: POLYETHYLENE GLYCOL 3350 17 GM PACKET. PO SCH (09:00)
--- NOTE | 2018-05-31 09:29 | PDOC ---
SURGICAL PROGRESS NOTE Subjective tolerating diet no abdominal pain Vital Signs Vital Signs Date Time Temp Pulse Resp B/P (MAP) Pulse Ox O2 Delivery O2 Flow Rate FiO2 05/31/18 08:52 65 113/42 05/31/18 08:19 95 Nasal Cannula 2.0 05/31/18 07:20 99.2 20 99.2 I&O Intake and Output 05/31/18 07:00 Intake Total 450 ml Output Total 1000 ml Balance -550 ml Intake Oral 400 ml IV Total 50 ml Output Urine Total 1000 ml # Bowel Movements 2 General: Alert, Cooperative, No acute distress Abdomen: Normal bowel sounds, Soft, No tenderness Labs Laboratory Tests Test 05/29/18 12:09 05/29/18 16:50 05/29/18 20:48 05/30/18 03:40 Glucose (Fingerstick) 100 mg/dL (70-99) 124 mg/dL (70-99) 97 mg/dL (70-99) Prothrombin Time 22.8 SEC (11.7-14.0) Prothromb Time International Ratio 2.0 (0.8-1.1) Test 05/30/18 07:32 05/30/18 12:49 05/30/18 16:57 05/30/18 20:39 Glucose (Fingerstick) 94 mg/dL (70-99) 109 mg/dL (70-99) 111 mg/dL (70-99) 145 mg/dL (70-99) Test 05/31/18 05:15 05/31/18 05:20 05/31/18 07:19 Sodium Level 136 mmol/L (136-145) Potassium Level 4.2 mmol/L (3.5-5.1) Chloride Level 104 mmol/L (98-107) Carbon Dioxide Level 24 mmol/L (21-32) Anion Gap 8 (6-14) Blood Urea Nitrogen 11 mg/dL (8-26) Creatinine 1.0 mg/dL (0.7-1.3) Estimated GFR (Cockcroft-Gault) 72.6 Glucose Level 114 mg/dL (70-99) Calcium Level 8.1 mg/dL (8.5-10.1) Total Bilirubin 0.5 mg/dL (0.2-1.0) Direct Bilirubin 0.3 mg/dL (0.0-0.2) Aspartate Amino Transf (AST/SGOT) 90 U/L (15-37) Alanine Aminotransferase (ALT/SGPT) 49 U/L (16-63) Alkaline Phosphatase 103 U/L (46-116) Creatine Kinase 218 U/L (39-308) Total Protein 6.2 g/dL (6.4-8.2) Albumin 1.5 g/dL (3.4-5.0) Prothrombin Time 26.0 SEC (11.7-14.0) Prothromb Time International Ratio 2.4 (0.8-1.1) Glucose (Fingerstick) 113 mg/dL (70-99) Laboratory Tests Test 05/30/18 12:49 05/30/18 16:57 05/30/18 20:39 05/31/18 05:15 Glucose (Fingerstick) 109 mg/dL (70-99) 111 mg/dL (70-99) 145 mg/dL (70-99) Sodium Level 136 mmol/L (136-145) Potassium Level 4.2 mmol/L (3.5-5.1) Chloride Level 104 mmol/L (98-107) Carbon Dioxide Level 24 mmol/L (21-32) Anion Gap 8 (6-14) Blood Urea Nitrogen 11 mg/dL (8-26) Creatinine 1.0 mg/dL (0.7-1.3) Estimated GFR (Cockcroft-Gault) 72.6 Glucose Level 114 mg/dL (70-99) Calcium Level 8.1 mg/dL (8.5-10.1) Total Bilirubin 0.5 mg/dL (0.2-1.0) Direct Bilirubin 0.3 mg/dL (0.0-0.2) Aspartate Amino Transf (AST/SGOT) 90 U/L (15-37) Alanine Aminotransferase (ALT/SGPT) 49 U/L (16-63) Alkaline Phosphatase 103 U/L (46-116) Creatine Kinase 218 U/L (39-308) Total Protein 6.2 g/dL (6.4-8.2) Albumin 1.5 g/dL (3.4-5.0) Test 05/31/18 05:20 05/31/18 07:19 Prothrombin Time 26.0 SEC (11.7-14.0) Prothromb Time International Ratio 2.4 (0.8-1.1) Glucose (Fingerstick) 113 mg/dL (70-99) Problem List Problems Medical Problems: (1) Fever Status: Acute (2) Gangrene of toe Status: Acute (3) Leukocytosis Status: Acute (4) Severe sepsis Status: Acute Assessment/Plan no surgical plans available as needed LUKAS MILES APRN May 31, 2018 09:28
--- NOTE | 2018-05-31 10:25 | PDOC ---
Infectious Disease Note Subjective Subjective sleepy Denies gen aches Low-grade fevers - better Denies pain/chills/SOA/upset stomach Vital Sign Vital Signs Vital Signs Date Time Temp Pulse Resp B/P (MAP) Pulse Ox O2 Delivery O2 Flow Rate FiO2 05/31/18 08:52 65 113/42 05/31/18 08:19 95 Nasal Cannula 2.0 05/31/18 07:20 99.2 20 99.2 Physical Exam PHYSICAL EXAM GEN: Propped up in bed, alert, Looks better HEENT: Pupils equally round, reactive. Normal conjunctivae. Oral cavity, pharynx pink, dry NECK: Supple. LUNGS: Clear anteriorly HEART: S1 and S2, soft murmur. Irregular. ABDOMEN: Obese, soft and Non tender with bowel sounds present. GENITOURINARY: Indwelling Crawley in place. 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 Left foot bandaged wound clean SKIN: Warm without rash. No peripheral stigmata. Several tattoos. NEUROLOGIC: Alert, coop - still a little confused Labs Lab Laboratory Tests Test 05/30/18 12:49 05/30/18 16:57 05/30/18 20:39 05/31/18 05:15 Glucose (Fingerstick) 109 mg/dL (70-99) 111 mg/dL (70-99) 145 mg/dL (70-99) Sodium Level 136 mmol/L (136-145) Potassium Level 4.2 mmol/L (3.5-5.1) Chloride Level 104 mmol/L (98-107) Carbon Dioxide Level 24 mmol/L (21-32) Anion Gap 8 (6-14) Blood Urea Nitrogen 11 mg/dL (8-26) Creatinine 1.0 mg/dL (0.7-1.3) Estimated GFR (Cockcroft-Gault) 72.6 Glucose Level 114 mg/dL (70-99) Calcium Level 8.1 mg/dL (8.5-10.1) Total Bilirubin 0.5 mg/dL (0.2-1.0) Direct Bilirubin 0.3 mg/dL (0.0-0.2) Aspartate Amino Transf (AST/SGOT) 90 U/L (15-37) Alanine Aminotransferase (ALT/SGPT) 49 U/L (16-63) Alkaline Phosphatase 103 U/L (46-116) Creatine Kinase 218 U/L (39-308) Total Protein 6.2 g/dL (6.4-8.2) Albumin 1.5 g/dL (3.4-5.0) Test 05/31/18 05:20 05/31/18 07:19 Prothrombin Time 26.0 SEC (11.7-14.0) Prothromb Time International Ratio 2.4 (0.8-1.1) Glucose (Fingerstick) 113 mg/dL (70-99) Micro Microbiology 05/24/18 Blood Culture - Preliminary, Resulted NO GROWTH AFTER 2 DAYS 05/19/18 Urine Culture - Final, Complete 05/19/18 Urine Culture Result 1 (FELICITA) - Final, Complete 05/19/18 Anaerobic/Aerobic Culture - Final, Complete 05/19/18 Anaerobic Culture Result 1 (FELICITA) - Final, Complete 05/19/18 Aerobic Culture - Final, Complete 05/19/18 Aerobic Culture Result 1 (FELICITA) - Final, Complete 05/19/18 Aerobic Culture Result 2 (FELICITA) - Final, Complete 05/19/18 Antimicrobic Susceptibility - Final, Complete 05/19/18 Gram Stain - Final, Complete 05/19/18 Gram Stain Result 1 (FELICITA) - Final, Complete 05/19/18 Gram Stain Result 2 (FELICITA) - Final, Complete Objective Assessment Fevers better overall. repeat UA and BC from 05/24 neg so far Leukocytosis - better Constipation ? chlolecystisis - non tender MRSA bacteremia (4 of 4 bottles) with sepsis, POA source possible foot infection- Dapto sensitive 05/18 -CRYSTAL done no vegetations 05/21; BC from 05/20 & 05/21 neg Infected necrotic ulcer left ankle s/p I and D 05/21. 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 Severe PAD s/p BLE stents and previous toe amputations Bioprosthetic aortic valve Renal insufficiency/JIMMY - better Encephalopathy - improved but still some confusion Coagulopathy, on chronic warfarin A- fib RVR Diabetes Type II h/o PSA ( R quinolones & I imipenem) h/o group B strep bacteremia, 2017 Plan Plan of Care Gen surg following PICC line CBC/LFts today Cont Micafungin(4/21)/Dapto (susceptible 05/18) /Merrem (05/24), was on zosyn Repeat BC, UA c/s from 05/24 NGTD Monitor labs CK/BMP/LFTs in am and renal function closely Local wound care and offloading MACARIO PRIEST MD May 31, 2018 10:25
[2018-05-31 10:44] LABS: BASO # 0.1 x10^3/uL (0.0-0.2); BASO % 1 % (0-3); EOS # 0.2 x10^3/uL (0.0-0.7); EOS % 2 % (0-3); HEMATOCRIT 25.6 % (39.0-53.0); HEMOGLOBIN 7.8 g/dL (13.0-17.5); LYMPH # 0.7 x10^3/uL (1.0-4.8); LYMPH % 7 % (24-48); MEAN CORPUSCULAR HEMOGLOBIN 26 pg (25-35); MEAN CORPUSCULAR HGB CONC 31 g/dL (31-37); MEAN CORPUSCULAR VOLUME 86 fL (79-100); MONO % 10 % (0-9); NEUT # 7.7 x10^3uL (1.8-7.7); NEUT % 80 % (31-73); PLATELET COUNT 314 x10^3/uL (140-400); RED BLOOD COUNT 2.98 x10^6/uL (4.30-5.70); RED CELL DISTRIBUTION WIDTH 16.4 % (11.5-14.5); WHITE BLOOD COUNT 9.6 x10^3/uL (4.0-11.0)
[2018-05-31 11:20] VITALS: BP 112/47
--- NOTE | 2018-05-31 11:28 | PDOC ---
PROGRESS NOTES Chief Complaint Chief Complaint Severe sepsis cellulitis w/ gangrenous toes MRSA bacteremia (4 of 4 bottles) with sepsis, POA source //foot infection -CRYSTAL done no vegetations 05/21; BC from 05/20 & 05/21 neg A. 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 A neoplastic etiology cannot be excluded and CT follow-up may be prudent. Small bilateral pleural effusions with mild bibasilar atelectasis. Distended gallbladder containing material of medium density. This may represent sludge History of Present Illness History of Present Illness plan LTAC or snu, palliative care following, change to hospice at home would be a fine option, he is not improving much cont current other, still will need 4 weeks of IV abx for treatment plan ID following PT/OT Vitals Vitals Vital Signs Date Time Temp Pulse Resp B/P (MAP) Pulse Ox O2 Delivery O2 Flow Rate FiO2 05/31/18 08:52 65 113/42 05/31/18 08:19 95 Nasal Cannula 2.0 05/31/18 07:20 99.2 20 99.2 Physical Exam Physical Exam GEN: sleeping and hard to arouse HEENT: Pupils equally round, reactive. Normal conjunctivae. 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 right, chronic hyperpigmentation bilateral shins and foot) Labs LABS Laboratory Tests Test 05/30/18 12:49 05/30/18 16:57 05/30/18 20:39 05/31/18 05:15 Glucose (Fingerstick) 109 mg/dL (70-99) 111 mg/dL (70-99) 145 mg/dL (70-99) Sodium Level 136 mmol/L (136-145) Potassium Level 4.2 mmol/L (3.5-5.1) Chloride Level 104 mmol/L (98-107) Carbon Dioxide Level 24 mmol/L (21-32) Anion Gap 8 (6-14) Blood Urea Nitrogen 11 mg/dL (8-26) Creatinine 1.0 mg/dL (0.7-1.3) Estimated GFR (Cockcroft-Gault) 72.6 Glucose Level 114 mg/dL (70-99) Calcium Level 8.1 mg/dL (8.5-10.1) Total Bilirubin 0.5 mg/dL (0.2-1.0) Direct Bilirubin 0.3 mg/dL (0.0-0.2) Aspartate Amino Transf (AST/SGOT) 90 U/L (15-37) Alanine Aminotransferase (ALT/SGPT) 49 U/L (16-63) Alkaline Phosphatase 103 U/L (46-116) Creatine Kinase 218 U/L (39-308) Total Protein 6.2 g/dL (6.4-8.2) Albumin 1.5 g/dL (3.4-5.0) Test 05/31/18 05:20 05/31/18 07:19 White Blood Count 9.6 x10^3/uL (4.0-11.0) Red Blood Count 2.98 x10^6/uL (4.30-5.70) Hemoglobin 7.8 g/dL (13.0-17.5) Hematocrit 25.6 % (39.0-53.0) Mean Corpuscular Volume 86 fL (79-100) Mean Corpuscular Hemoglobin 26 pg (25-35) Mean Corpuscular Hemoglobin Concent 31 g/dL (31-37) Red Cell Distribution Width 16.4 % (11.5-14.5) Platelet Count 314 x10^3/uL (140-400) Neutrophils (%) (Auto) 80 % (31-73) Lymphocytes (%) (Auto) 7 % (24-48) Monocytes (%) (Auto) 10 % (0-9) Eosinophils (%) (Auto) 2 % (0-3) Basophils (%) (Auto) 1 % (0-3) Neutrophils # (Auto) 7.7 x10^3uL (1.8-7.7) Lymphocytes # (Auto) 0.7 x10^3/uL (1.0-4.8) Monocytes # (Auto) 1.0 x10^3/uL (0.0-1.1) Eosinophils # (Auto) 0.2 x10^3/uL (0.0-0.7) Basophils # (Auto) 0.1 x10^3/uL (0.0-0.2) Prothrombin Time 26.0 SEC (11.7-14.0) Prothromb Time International Ratio 2.4 (0.8-1.1) Glucose (Fingerstick) 113 mg/dL (70-99) Assessment and Plan Assessmemt and Plan Problems Medical Problems: (1) Fever Status: Acute (2) Gangrene of toe Status: Acute (3) Leukocytosis Status: Acute (4) Severe sepsis Status: Acute Comment Review of Relevant I have reviewed the following items navi (where applicable) has been applied. Labs Laboratory Tests Test 05/29/18 12:09 05/29/18 16:50 05/29/18 20:48 05/30/18 03:40 Glucose (Fingerstick) 100 mg/dL (70-99) 124 mg/dL (70-99) 97 mg/dL (70-99) Prothrombin Time 22.8 SEC (11.7-14.0) Prothromb Time International Ratio 2.0 (0.8-1.1) Test 05/30/18 07:32 05/30/18 12:49 05/30/18 16:57 05/30/18 20:39 Glucose (Fingerstick) 94 mg/dL (70-99) 109 mg/dL (70-99) 111 mg/dL (70-99) 145 mg/dL (70-99) Test 05/31/18 05:15 05/31/18 05:20 05/31/18 07:19 Sodium Level 136 mmol/L (136-145) Potassium Level 4.2 mmol/L (3.5-5.1) Chloride Level 104 mmol/L (98-107) Carbon Dioxide Level 24 mmol/L (21-32) Anion Gap 8 (6-14) Blood Urea Nitrogen 11 mg/dL (8-26) Creatinine 1.0 mg/dL (0.7-1.3) Estimated GFR (Cockcroft-Gault) 72.6 Glucose Level 114 mg/dL (70-99) Calcium Level 8.1 mg/dL (8.5-10.1) Total Bilirubin 0.5 mg/dL (0.2-1.0) Direct Bilirubin 0.3 mg/dL (0.0-0.2) Aspartate Amino Transf (AST/SGOT) 90 U/L (15-37) Alanine Aminotransferase (ALT/SGPT) 49 U/L (16-63) Alkaline Phosphatase 103 U/L (46-116) Creatine Kinase 218 U/L (39-308) Total Protein 6.2 g/dL (6.4-8.2) Albumin 1.5 g/dL (3.4-5.0) White Blood Count 9.6 x10^3/uL (4.0-11.0) Red Blood Count 2.98 x10^6/uL (4.30-5.70) Hemoglobin 7.8 g/dL (13.0-17.5) Hematocrit 25.6 % (39.0-53.0) Mean Corpuscular Volume 86 fL (79-100) Mean Corpuscular Hemoglobin 26 pg (25-35) Mean Corpuscular Hemoglobin Concent 31 g/dL (31-37) Red Cell Distribution Width 16.4 % (11.5-14.5) Platelet Count 314 x10^3/uL (140-400) Neutrophils (%) (Auto) 80 % (31-73) Lymphocytes (%) (Auto) 7 % (24-48) Monocytes (%) (Auto) 10 % (0-9) Eosinophils (%) (Auto) 2 % (0-3) Basophils (%) (Auto) 1 % (0-3) Neutrophils # (Auto) 7.7 x10^3uL (1.8-7.7) Lymphocytes # (Auto) 0.7 x10^3/uL (1.0-4.8) Monocytes # (Auto) 1.0 x10^3/uL (0.0-1.1) Eosinophils # (Auto) 0.2 x10^3/uL (0.0-0.7) Basophils # (Auto) 0.1 x10^3/uL (0.0-0.2) Prothrombin Time 26.0 SEC (11.7-14.0) Prothromb Time International Ratio 2.4 (0.8-1.1) Glucose (Fingerstick) 113 mg/dL (70-99) Laboratory Tests Test 05/30/18 12:49 05/30/18 16:57 05/30/18 20:39 05/31/18 05:15 Glucose (Fingerstick) 109 mg/dL (70-99) 111 mg/dL (70-99) 145 mg/dL (70-99) Sodium Level 136 mmol/L (136-145) Potassium Level 4.2 mmol/L (3.5-5.1) Chloride Level 104 mmol/L (98-107) Carbon Dioxide Level 24 mmol/L (21-32) Anion Gap 8 (6-14) Blood Urea Nitrogen 11 mg/dL (8-26) Creatinine 1.0 mg/dL (0.7-1.3) Estimated GFR (Cockcroft-Gault) 72.6 Glucose Level 114 mg/dL (70-99) Calcium Level 8.1 mg/dL (8.5-10.1) Total Bilirubin 0.5 mg/dL (0.2-1.0) Direct Bilirubin 0.3 mg/dL (0.0-0.2) Aspartate Amino Transf (AST/SGOT) 90 U/L (15-37) Alanine Aminotransferase (ALT/SGPT) 49 U/L (16-63) Alkaline Phosphatase 103 U/L (46-116) Creatine Kinase 218 U/L (39-308) Total Protein 6.2 g/dL (6.4-8.2) Albumin 1.5 g/dL (3.4-5.0) Test 05/31/18 05:20 05/31/18 07:19 White Blood Count 9.6 x10^3/uL (4.0-11.0) Red Blood Count 2.98 x10^6/uL (4.30-5.70) Hemoglobin 7.8 g/dL (13.0-17.5) Hematocrit 25.6 % (39.0-53.0) Mean Corpuscular Volume 86 fL (79-100) Mean Corpuscular Hemoglobin 26 pg (25-35) Mean Corpuscular Hemoglobin Concent 31 g/dL (31-37) Red Cell Distribution Width 16.4 % (11.5-14.5) Platelet Count 314 x10^3/uL (140-400) Neutrophils (%) (Auto) 80 % (31-73) Lymphocytes (%) (Auto) 7 % (24-48) Monocytes (%) (Auto) 10 % (0-9) Eosinophils (%) (Auto) 2 % (0-3) Basophils (%) (Auto) 1 % (0-3) Neutrophils # (Auto) 7.7 x10^3uL (1.8-7.7) Lymphocytes # (Auto) 0.7 x10^3/uL (1.0-4.8) Monocytes # (Auto) 1.0 x10^3/uL (0.0-1.1) Eosinophils # (Auto) 0.2 x10^3/uL (0.0-0.7) Basophils # (Auto) 0.1 x10^3/uL (0.0-0.2) Prothrombin Time 26.0 SEC (11.7-14.0) Prothromb Time International Ratio 2.4 (0.8-1.1) Glucose (Fingerstick) 113 mg/dL (70-99) Microbiology 05/27/18 Blood Culture - Preliminary, Resulted NO GROWTH AFTER 3 DAYS 05/19/18 Urine Culture - Final, Complete 05/19/18 Urine Culture Result 1 (FELICITA) - Final, Complete 05/19/18 Anaerobic/Aerobic Culture - Final, Complete 05/19/18 Anaerobic Culture Result 1 (FELICITA) - Final, Complete 05/19/18 Aerobic Culture - Final, Complete 05/19/18 Aerobic Culture Result 1 (FELICITA) - Final, Complete 05/19/18 Aerobic Culture Result 2 (FELICITA) - Final, Complete 05/19/18 Antimicrobic Susceptibility - Final, Complete 05/19/18 Gram Stain - Final, Complete 05/19/18 Gram Stain Result 1 (FELICITA) - Final, Complete 05/19/18 Gram Stain Result 2 (FELICITA) - Final, Complete Medications Current Medications Sodium Chloride 1,000 ml @ 2,190 mls/hr Q28M IV Last administered on 05/18/18at 14:36; Start 05/18/18 at 12:52; Stop 05/18/18 at 13:52; Status DC Piperacillin Sod/ Tazobactam Sod 4.5 gm/Sodium Chloride 100 ml @ 200 mls/hr 1X ONCE IV Last administered on 05/18/18at 14:34; Start 05/18/18 at 13:00; Stop 05/18/18 at 13:29; Status DC Vancomycin HCl (Vanco Per Pharmacy) 1 each 1X ONCE MC Last administered on 05/18/18at 13:00; Start 05/18/18 at 13:00; Stop 05/18/18 at 13:11; Status DC Vancomycin HCl 2 gm/Sodium Chloride 500 ml @ 250 mls/hr 1X ONCE IV Last administered on 05/18/18at 15:28; Start 05/18/18 at 13:15; Stop 05/18/18 at 15:14; Status DC Ondansetron HCl (Zofran) 4 mg PRN Q8HRS PRN IV NAUSEA/VOMITING; Start 05/18/18 at 14:45; Stop 05/18/18 at 15:28; Status DC Fentanyl Citrate (Fentanyl 2ml Vial) 50 mcg PRN Q1HR PRN IV PAIN; Start 05/18/18 at 14:45; Stop 05/19/18 at 11:50; Status DC Sodium Chloride 1,000 ml @ 80 mls/hr [id number] IV ; Start 05/18/18 at 14:43; Stop 05/18/18 at 18:42; Status DC Acetaminophen (Tylenol) 650 mg 1X ONCE PO Last administered on 05/18/18at 15:29 ; Start 05/18/18 at 15:30; Stop 05/18/18 at 15:31; Status DC Ondansetron HCl (Zofran) 4 mg PRN Q6HRS PRN IV NAUSEA/VOMITING Last administered on 05/24/18at 06:14; Start 05/18/18 at 15:30 Diltiazem HCl (Cardizem Iv Push) 10 mg 1X ONCE IVP ; Start 05/18/18 at 15:30; Stop 05/18/18 at 15:31; Status DC Acetaminophen (Tylenol) 500 mg PRN Q6HRS PRN PO MILD PAIN / TEMP; Start 05/18/18 at 15:30; Stop 05/18/18 at 16:14; Status DC Acetaminophen/ Codeine Phosphate (Tylenol #3) 1 tab PRN Q6HRS PRN PO MODERATE PAIN Last administered on 05/26/18at 21:56; Start 05/18/18 at 15:30 Morphine Sulfate (Morphine Sulfate) 2 mg PRN Q2HR PRN IV PAIN Last administered on 05/30/18 11:11; Start 05/18/18 at 15:30 Oxycodone/ Acetaminophen (Percocet 5/325) 1 tab PRN Q4HRS PRN PO SEVERE PAIN Last administered on 05/27/18 12:49; Start 05/18/18 at 15:30 Albuterol Sulfate (Ventolin Hfa) 2 puff PRN Q6HRS PRN IH SHORTNESS OF BREATH; Start 05/18/18 at 15:30; Status UNV Digoxin (Lanoxin) 125 mcg DAILY PO ; Start 05/19/18 at 09:00; Stop 05/19/18 at 09:00; Status DC Furosemide (Lasix) 40 mg DAILY PO Last administered on 05/31/18 08:51; Start 05/19/18 at 09:00 Gabapentin (Neurontin) 300 mg DAILY PO Last administered on 05/31/18 08:50; Start 05/19/18 at 09:00 Lisinopril (Prinivil) 20 mg DAILY PO Last administered on 05/19/18 10:14; Start 05/19/18 at 09:00; Stop 05/24/18 at 15:20; Status DC Metoprolol Tartrate (Lopressor) 50 mg BID PO Last administered on 05/30/18 20:37; Start 05/18/18 at 21:00 Oxycodone/ Acetaminophen (Percocet 10/325) 1 tab PRN Q6HRS PRN PO SEVERE PAIN (2ND Choice) Last administered on 05/30/18 17:41; Start 05/18/18 at 15:30 Oxycodone/ Acetaminophen (Percocet 5/325) 1 tab PRN Q4HRS PRN PO PAIN; Start 05/18/18 at 15:30; Status UNV Acetaminophen (Tylenol) 500 mg PRN Q6HRS PRN PO MILD PAIN / TEMP Last administered on 05/27/18 23:35; Start 05/18/18 at 16:15 Atorvastatin Calcium (Lipitor) 80 mg QHS PO Last administered on 05/30/18 20:38; Start 05/18/18 at 21:00 Hydralazine HCl (Apresoline) 10 mg TID PO Last administered on 05/31/18 08:50; Start 05/18/18 at 16:00 Insulin Human Lispro (HumaLOG) 10 units DAILYWBKFT SQ Last administered on 08:58; Start 05/18/18 at 17:00; Stop 05/23/18 at 14:25; Status DC Levetiracetam (Keppra) 1,250 mg BID PO Last administered on 05/31/18 08:51; Start 05/18/18 at 21:00 Metformin HCl (Glucophage) 1,000 mg BIDWMEALS PO Last administered on 05/31/18 08:50; Start 05/18/18 at 17:00 Multivitamins (Thera M Plus) 1 tab DAILY PO Last administered on 05/30/18 11:29; Start 05/19/18 at 09:00 Potassium Chloride (Klor-Con) 20 meq DAILYWBKFT PO Last administered on 05/31/18 08:51; Start 05/19/18 at 08:00 Risperidone (RisperDAL) 1 mg QHS PO Last administered on 05/30/18 20:38; Start 05/18/18 at 21:00 Non-Formulary Medication (Rosuvastatin Calcium (Crestor)) 40 mg DAILY PO ; Start 05/19/18 at 09:00; Status UNV Zonisamide (Zonegran) 400 mg DAILY PO Last administered on 05/31/18 08:51; Start 05/19/18 at 09:00 Albuterol/ Ipratropium (Duoneb) 3 ml Q4HRS W/A NEB Last administered on 05/31/18 08:35; Start 05/18/18 at 18:00 Insulin Human Lispro (HumaLOG) 0-9 UNITS TIDWMEALS SQ Last administered on 05/26/18 18:04; Start 05/18/18 at 17:00 Dextrose (Dextrose 50%-Water Syringe) 12.5 gm PRN Q15MIN PRN IV SEE COMMENTS Last administered on 05/25/18 06:04; Start 05/18/18 at 15:30 Albuterol Sulfate (Ventolin Neb Soln) 2.5 mg PRN Q6HRS PRN NEB SHORTNESS OF BREATH Last administered on 4/20/19at 08:35; Start 05/18/18 at 15:45 Piperacillin Sod/ Tazobactam Sod 3.375 gm/Sodium Chloride 50 ml @ 100 mls/hr Q6HRS IV Last administered on 05/24/18 05:33; Start 05/18/18 at 18:00; Stop 05/24/18 at 08:09; Status DC Potassium Chloride (Klor-Con) 40 meq 1X ONCE PO Last administered on 05/19/18at 10:14; Start 05/19/18 at 08:30; Stop 05/19/18 at 08:31; Status DC Heparin Sodium (Porcine) (Heparin Sodium) 5,000 unit Q8HRS SQ ; Start 05/19/18 at 14:00; Stop 05/19/18 at 14:00; Status DC Furosemide (Lasix) 40 mg 1X ONCE IVP Last administered on 05/19/18at 10:12; Start 05/19/18 at 08:45; Stop 05/19/18 at 08:46; Status DC Phytonadione (Vitamin K Ampule) 10 mg 1X ONCE SQ Last administered on 05/19/18at 10:16; Start 05/19/18 at 10:00; Stop 05/19/18 at 10:01; Status DC Vancomycin HCl (Vanco Per Pharmacy) 1 each PRN DAILY PRN MC SEE COMMENTS Last administered on 05/19/18at 10:32; Start 05/19/18 at 10:00; Stop 05/20/18 at 10:42; Status DC Phytonadione (Vitamin K Ampule) 10 mg 1X ONCE SQ ; Start 05/19/18 at 10:15; Stop 05/19/18 at 10:16; Status UNV Vancomycin HCl 1.75 gm/Sodium Chloride 500 ml @ 250 mls/hr Q24H IV Last administered on 05/19/18at 16:59; Start 05/19/18 at 16:00; Stop 05/20/18 at 10:42; Status DC Vancomycin HCl (Vancomycin Trough Level) 1 each 1X ONCE MC ; Start 05/20/18 at 16:30; Stop 05/20/18 at 16:30; Status DC Acetaminophen (Tylenol Supp) 650 mg PRN Q6HRS PRN NE MILD PAIN / TEMP Last administered on 05/23/18at 23:33; Start 05/20/18 at 01:15 Sodium Chloride 500 ml @ 333 mls/hr 1X ONCE IV Last administered on 05/20/18at 01:14; Start 05/20/18 at 01:15; Stop 05/20/18 at 02:45; Status DC Phytonadione 5 mg/ Dextrose 50.5 ml @ 101 mls/hr 1X ONCE IV Last administered on 05/20/18at 10:08; Start 05/20/18 at 10:30; Stop 05/20/18 at 10:59; Status DC Daptomycin 590 mg/ Sodium Chloride 50 ml @ 100 mls/hr Q24H IV Last administered on 05/30/18at 15:21; Start 05/20/18 at 12:00 Ondansetron HCl (Zofran) 4 mg PRN Q6HRS PRN IV NAUSEA/VOMITING; Start 05/21/18 at 09:45; Stop 05/22/18 at 09:44; Status DC Fentanyl Citrate (Fentanyl 2ml Vial) 25 mcg PRN Q5MIN PRN IV MILD PAIN; Start 05/21/18 at 09:45; Stop 05/22/18 at 09:44; Status DC Fentanyl Citrate (Fentanyl 2ml Vial) 50 mcg PRN Q5MIN PRN IV MODERATE TO SEVERE PAIN; Start 05/21/18 at 09:45; Stop 05/22/18 at 09:44; Status DC Morphine Sulfate (Morphine Sulfate) 1 mg PRN Q10MIN PRN IV SEVERE PAIN; Start 05/21/18 at 09:45; Stop 05/22/18 at 09:44; Status DC Ringer's Solution 1,000 ml @ 30 mls/hr Q24H IV ; Start 05/21/18 at 09:39; Stop 05/22/18 at 00:37; Status DC Lidocaine HCl (Xylocaine-Mpf 1% 2ml Vial) 2 ml 1X PRN PRN ID IV START; Start 05/21/18 at 09:45; Stop 05/22/18 at 09:44; Status DC Hydromorphone HCl (Dilaudid) 0.5 mg PRN Q10MIN PRN IV SEV PAIN, Second choice; Start 05/21/18 at 09:45; Stop 05/22/18 at 09:44; Status DC Prochlorperazine Edisylate (Compazine) 5 mg PACU PRN PRN IV NAUSEA, MRX1; S tart 05/21/18 at 09:45; Stop 05/22/18 at 09:44; Status DC Lidocaine HCl (Glydo (Lidocaine) Jelly) 1 vianney 1X ONCE MM ; Start 05/21/18 at 12:30; Stop 05/21/18 at 12:31; Status DC Propofol 20 ml @ As Directed STK-MED ONCE IV ; Start 05/21/18 at 12:27; Stop 05/21/18 at 12:28; Status DC Dexamethasone Sodium Phosphate (Decadron) 20 mg STK-MED ONCE .ROUTE ; Start 05/21/18 at 12:27; Stop 05/21/18 at 12:28; Status DC Famotidine (Pepcid Vial) 20 mg STK-MED ONCE .ROUTE ; Start 05/21/18 at 12:27; Stop 05/21/18 at 12:28; Status DC Lidocaine HCl (Lidocaine Pf 2% Vial) 5 ml STK-MED ONCE .ROUTE ; Start 05/21/18 at 12:27; Stop 05/21/18 at 12:28; Status DC Ondansetron HCl (Zofran) 4 mg STK-MED ONCE .ROUTE ; Start 05/21/18 at 12:27; Stop 05/21/18 at 12:28; Status DC Fentanyl Citrate (Fentanyl 2ml Vial) 100 mcg STK-MED ONCE .ROUTE ; Start 05/21/18 at 12:27; Stop 05/21/18 at 12:28; Status DC Bacitracin 80051 unit/Sodium Chloride 500 ml @ 500 mls/hr 1X ONCE IRR ; Start 05/21/18 at 12:40; Stop 05/21/18 at 13:39; Status DC Cefazolin Sodium 1 gm/Sodium Chloride 500 ml @ 500 mls/hr 1X ONCE IRR ; Start 05/21/18 at 12:40; Stop 05/21/18 at 13:39; Status DC Lidocaine HCl 20 ml STK-MED ONCE .ROUTE ; Start 05/21/18 at 11:42; Stop 05/21/18 at 12:42; Status DC Esmolol HCl (Brevibloc) 100 mg STK-MED ONCE IVP ; Start 05/21/18 at 13:01; Stop 05/21/18 at 13:02; Status DC Esmolol HCl (Brevibloc) 100 mg STK-MED ONCE IVP ; Start 05/21/18 at 14:22; Stop 05/21/18 at 14:23; Status DC Neomycin/ Polymyxin/ Bacitracin (Triple Antibiotic Ointment) 1 pkt STK-MED ONCE TP Last administered on 05/21/18at 14:41; Start 05/21/18 at 13:38; Stop 05/21/18 at 14:38; Status DC Sevoflurane (Ultane) 90 ml STK-MED ONCE IH ; Start 05/21/18 at 14:40; Stop 05/21/18 at 14:41; Status DC Naloxone HCl (Narcan) 0.4 mg PRN Q2MIN PRN IV SEE INSTRUCTIONS; Start 05/21/18 at 15:00 Sodium Chloride 1,000 ml @ 25 mls/hr Q24H IV ; Start 05/21/18 at 14:57; Stop 05/24/18 at 07:00; Status DC Morphine Sulfate 30 ml @ 0 mls/hr CONT PRN PRN IV PER PROTOCOL; Start 05/21/18 at 15:00 Labetalol HCl (Normodyne Iv Push) 20 mg PRN Q2HR PRN IVP HYPERTENSION, SEE COMMENTS Last administered on 05/24/18at 00:15; Start 05/21/18 at 15:30 Labetalol HCl (Normodyne Iv Push) 5 mg 1X PACU PRN IVP tachycardia and HTN Last administered on 05/21/18at 15:30; Start 05/21/18 at 15:30; Stop 05/22/18 at 09:09; Status DC Insulin Glargine (Lantus) 3 units 1X ONCE SQ Last administered on 05/21/18at 22:00; Start 05/21/18 at 22:00; Stop 05/22/18 at 01:31; Status DC Aspirin (Ecotrin) 81 mg DAILYWBKFT PO Last administered on 05/31/18at 08:49; Start 05/23/18 at 08:00 Digoxin (Lanoxin) 250 mcg 1X ONCE IV Last administered on 05/22/18at 12:28; Start 05/22/18 at 12:30; Stop 05/22/18 at 12:31; Status DC Warfarin Sodium (Coumadin) 6 mg DAILY16 PO ; Start 05/22/18 at 16:00; Stop 05/22/18 at 16:00; Status DC Warfarin Sodium (Coumadin) 2.5 mg 3X/WEEK PO ; Start 05/23/18 at 09:00; Status UNV Warfarin Sodium (Coumadin Per Physician) 1 each PRN DAILY PRN MC SEE COMMENTS; Start 05/22/18 at 14:45; Stop 05/22/18 at 14:57; Status DC Warfarin Sodium (Coumadin Per Pharmacy) 1 each PRN DAILY PRN MC SEE COMMENTS Last administered on 05/30/18at 12:43; Start 05/22/18 at 15:00 Warfarin Sodium (Coumadin) 4 mg 1X WARF ONCE PO Last administered on 05/22/18at 16:19; Start 05/22/18 at 16:00; Stop 05/22/18 at 16:01; Status DC Warfarin Sodium (Coumadin) 4 mg 1X WARF ONCE PO ; Start 05/23/18 at 16:00; Stop 05/23/18 at 16:01; Status DC Ringer's Solution 1,000 ml @ 75 mls/hr [id number] IV ; Start 05/23/18 at 13:45; Status Cancel Ringer's Solution 1,000 ml @ 75 mls/hr [id number] IV Last administered on 05/29/18at 17:05; Start 05/23/18 at 14:00 Insulin Human Lispro (HumaLOG) 7 units DAILYWBKFT SQ ; Start 05/24/18 at 08:00; Stop 05/25/18 at 12:44; Status DC Dextrose (Dextrose 50%-Water Syringe) 25 gm 1X ONCE IV Last administered on 05/23/18at 13:15; Start 05/23/18 at 17:45; Stop 05/23/18 at 17:46; Status DC Meropenem 500 mg/ Sodium Chloride 50 ml @ 100 mls/hr Q6HRS IV Last administered on 05/31/18at 05:19; Start 05/24/18 at 12:00 Warfarin Sodium (Coumadin) 6 mg 1X WARF ONCE PO Last administered on 05/24/18at 15:33; Start 05/24/18 at 16:00; Stop 05/24/18 at 16:01; Status DC Insulin Human Lispro (HumaLOG) 3 units DAILYWBKFT SQ Last administered on 05/31/18 09:05; Start 05/26/18 at 08:00 Warfarin Sodium (Coumadin) 6 mg 1X WARF ONCE PO Last administered on 05/25/18 16:04; Start 05/25/18 at 16:00; Stop 05/25/18 at 16:01; Status DC Polyethylene Glycol (miraLAX PACKET) 17 gm DAILY PO Last administered on 05/30/18 11:29; Start 05/26/18 at 14:00 Warfarin Sodium (Coumadin) 7.5 mg 1X WARF ONCE PO Last administered on 05/27/18 17:56; Start 05/27/18 at 16:00; Stop 05/27/18 at 16:01; Status DC Micafungin Sodium 100 mg/Dextrose 100 ml @ 100 mls/hr Q24H IV Last administered on 05/30/18 15:15; Start 05/27/18 at 12:00 Warfarin Sodium (Coumadin) 6 mg 1X WARF ONCE PO Last administered on 05/28/18 17:32; Start 05/28/18 at 16:00; Stop 05/28/18 at 16:01; Status DC Ascorbic Acid (Vitamin C) 500 mg DAILY PO Last administered on 05/31/18 08:51; Start 05/28/18 at 16:00 Warfarin Sodium (Coumadin) 6 mg 1X WARF ONCE PO Last administered on 05/29/18 17:04; Start 05/29/18 at 16:00; Stop 05/29/18 at 16:01; Status DC Warfarin Sodium (Coumadin) 6 mg 1X WARF ONCE PO Last administered on 05/30/18 15:29; Start 05/30/18 at 16:00; Stop 05/30/18 at 16:01; Status DC Lidocaine/Sodium Bicarbonate (Buffered Lidocaine 1%) 3 ml STK-MED ONCE .ROUTE ; Start 05/30/18 at 13:48; Stop 05/30/18 at 13:49; Status DC Active Scripts Active Digoxin 125 Mcg Tablet 125 Mcg PO DAILY Furosemide 40 Mg Tablet 40 Mg PO DAILY Metoprolol Tartrate 50 Mg Tablet 50 Mg PO BID [Warfarin Sodium] 1 EACH Each 1 Each MC PRN DAILY PRN Lisinopril 20 Mg Tablet 20 Mg PO DAILY Duoneb 0.5-3(2.5) Mg/3 Ml (Albuterol/Ipratropium) 3 Ml Ampul.neb 3 Ml NEB Q4HRS W/A 30 Days Hydralazine Hcl 10 Mg Tablet 10 Mg PO TID Reported Zonisamide 100 Mg Capsule 400 Mg PO DAILY Percocet 5-325 Mg Tablet (Oxycodone/Acetaminophen) 1 Each Tablet 1 Tab PO PRN Q4HRS PRN Multivitamins (Multivitamin) 1 Each Tablet 1 Tab PO DAILY Levetiracetam 250 Mg Tablet 1,250 Mg PO BID Novolin N (Nph, Human Insulin Isophane) 100 Unit/1 Ml Vial Unknown Dose SQ Atorvastatin Calcium 80 Mg Tablet 1 Tab PO DAILY Acetaminophen 500 Mg Tablet 1 Tab PO PRN Q6HRS PRN Albuterol Sulfate Hfa Inhaler (Albuterol Sulfate) 8.5 Gm Hfa.aer.ad 2 Puff IH PRN Q6HRS PRN Aspirin Ec (Aspirin) 325 Mg Tablet.dr 81 Mg PO DAILY Crestor (Rosuvastatin Calcium) 40 Mg Tablet 40 Mg PO DAILY Warfarin Sodium 5 Mg Tablet 6 Mg PO DAILY Warfarin Sodium 2.5 Mg Tablet 2.5 Mg PO 3X/WEEK monday,monday, Gabapentin (Gabapentin) 300 Mg Capsule 300 Mg PO DAILY Risperidone 1 Mg Tablet 1 Mg PO HS Novolog (Insulin Aspart) 100 Unit/1 Ml Vial 10 Unit SQ DAILYAC Oxycodone-Acetaminophen 10-325 (Oxycodone Hcl/Acetaminophen) 1 Each Tablet 1 Each PO PRN Q6HRS Potassium 99 Mg Tablet 20 Meq PO DAILY Prednisone (Prednisone) 10 Mg Tablet 10 Mg PO DAILY Metformin Hcl 500 Mg Tablet 1,000 Mg PO BIDBFRMEAL Vitals/I & O Vital Sign - Last 24 Hours 05/30/18 05/30/18 05/30/18 05/30/18 11:27 11:28 11:41 12:17 Pulse 99 99 Resp 16 B/P (MAP) 151/83 151/83 Pulse Ox 98 O2 Delivery Nasal Cannula Nasal Cannula O2 Flow Rate 2.0 2.0 05/30/18 05/30/18 05/30/18 05/30/18 13:08 15:24 15:45 16:08 Temp 98.8 98.0 98.8 98.0 Pulse 114 114 90 Resp 20 22 B/P (MAP) 136/66 (89) 136/66 140/47 (78) Pulse Ox 96 95 O2 Delivery Nasal Cannula Nasal Cannula Nasal Cannula O2 Flow Rate 3.0 2.0 2.0 05/30/18 05/30/18 05/30/18 05/30/18 17:41 19:20 19:45 19:47 Temp 98.5 98.5 Pulse 134 Resp 0 20 B/P (MAP) 167/46 (86) Pulse Ox 95 98 98 O2 Delivery Nasal Cannula Nasal Cannula Nasal Cannula Nasal Cannula O2 Flow Rate 2.0 2.0 2.0 2.0 05/30/18 05/30/18 05/30/18 05/31/18 20:37 20:38 23:54 03:30 Temp 99.0 98.4 99.0 98.4 Pulse 134 134 115 104 Resp 20 16 B/P (MAP) 167/46 167/46 118/36 (63) 97/40 (59) Pulse Ox 96 97 O2 Delivery Nasal Cannula Nasal Cannula O2 Flow Rate 2.0 2.0 05/31/18 05/31/18 05/31/18 05/31/18 07:20 08:00 08:19 08:50 Temp 99.2 99.2 Pulse 65 65 Resp 20 B/P (MAP) 113/42 (65) 113/42 Pulse Ox 93 95 O2 Delivery Nasal Cannula Nasal Cannula Nasal Cannula O2 Flow Rate 2.0 2.0 2.0 05/31/18 08:52 Pulse 65 B/P (MAP) 113/42 Intake and Output 05/30/18 05/30/18 05/31/18 14:59 22:59 06:59 Intake Total 100 ml 300 ml 50 ml Output Total 450 ml 550 ml Balance 100 ml -150 ml -500 ml Nutrition Consultation Dietary Evaluation: Recommendations by RD: Increase Calorie Intake, Protein supplementation Comments: Continue diet per [employer] with ADA/cardiac diet restrictions per pmhx, can liberalize as needed to provide foods that pt likes continue Glucerna TID (chocolate) Continue MVI and Vit C (500 mg BID) Expected Outcomes/Goals: PO intake to meet >75% est needs - not met, goal ongoing Malnutrition Findings: Food and Nutrition Intake (Mod: <75% est energy req 7days Weight Status: Obese ZAK MENDEZ MD May 31, 2018 11:28
[2018-05-31] MEDS: IV RINGERS,LACTATED 1000ML 1,000 ML IV SCH ×2 (11:38→22:02)
--- NOTE | 2018-05-31 11:40 | NUR ---
SW following pt. Spoke with Cori at [facility] and she reported she will come up and review clinicals to if they can meet IV abx needs. Spoke with ID and pt might be better to go to SNU for IV abx. Pt might need to be on Daptomycin for 4-6weeks. PC spoke with pt's regarding goals of care. wants to continue treatment for infection and wants pt to continue to be full code. Pt's chose [facility] and [facility], notified of medicare star ratings. SW phoned and faxed referral to both facilities. Pt acceptance and admission pending. SW also requested for PT/OT order. Discussed with Physician.
--- NOTE | 2018-05-31 11:41 | PDOC2 ---
PALLIATIVE CARE Palliative Care Note Palliative Care Patient lethargic but able to carry on conversation. Patient wants to continue to treat infections. Spoke with Christine--. Patient had been with [facility]--cardiac dx. (call placed to hospice to confirm) Christine would like to continue with aggressive tx. including treatment of infections. Discussed SNU to continue antibiotic therapy. Requests Naima or KAMLESH Carlin SW aware and will proceed with faxing information. DEANDRA LACY May 31, 2018 11:41
[2018-05-31] MEDS: MICAFUNGIN 100 MG in IV DEXTROSE 5% 100ML 100 ML IV SCH (13:24)
[2018-05-31 15:10] VITALS: BP 95/44
[2018-05-31] MEDS: DAPTOmycin (GENERIC) IVPB 590 MG in IV NORMAL SALINE 50ML 50 ML IV SCH (15:10)
[2018-05-31] MEDS ORDERED: WARFARIN 3 MG TABLET. PO ONE (16:00)
--- NOTE | 2018-05-31 16:10 | NUR ---
Pharmacy Warfarin Dosing Note S:Pharmacy consulted to assist with anticoagulation therapy started with target INR: 2 -3 O:VICKI BRAUN is a 78 year old M with Atrial Fibrillation LABS: Last INR: 2.4 Last HGB: 7.8 Last HCT: 25.6 Last PLT: 314 Last dose of 6 mg given on 05/30/18 at 1529 Previous Regimen: 4mg/day except 2 mg Sat/Sun Vitamin K given: Y 05/19: 10 MG SUB-Q, 05/20: 5 MG IV Drug Interaction Changes: New Interacting Drug Ongoing Drug Interactions: Zosyn A:INR of 2.4 is within desired range. Target range for this patient is: 2 -3 P: Warfarin dose: 6 mg Today at 1600 Bridge Therapy: None Next INR due TOMORROW. Pharmacy anticoagulation service will continue to follow. NENITA LAM [facility], 05/31/18 [id number]
--- NOTE | 2018-05-31 16:21 | NUR ---
AMAURI following pt. PP declined to take pt and Cori reported if infection was not related to the heart failure, they will not cover IV abx at home. Bindu draper [facility] reported he will come visit pt tomorrow. Awaiting on PT/OT recommendations as well.
[2018-05-31 19:59] VITALS: BP 110/42
[2018-05-31] MEDS: ATORVASTATIN CALCIUM 40 MG TABLET. PO SCH (22:01)
[2018-05-31] MEDS: risperiDONE 1 MG TABLET. PO SCH (22:02)
[2018-05-31 23:33] VITALS: BP 123/67
[2018-06-01] MEDS: MEROPENEM 500 MG in IV NORMAL SALINE 50ML 50 ML IV SCH ×2 (00:20→05:32)
[2018-06-01] MEDS: oxyCODONE/APAP 5/325 1 TAB TABLET PO PRN ×2 (02:22→13:23)
[2018-06-01 03:44] VITALS: BP 131/47
[2018-06-01 06:21] LABS: PROTHROMBIN TIME PATIENT 29.2 SEC (11.7-14.0)
[2018-06-01] MEDS: IPRATRPIUM/ALBUTEROL 0.5/2.5MG 3 ML NEBU. NEB SCH ×4 (07:34→21:41)
[2018-06-01 07:36] VITALS: BP 125/46
[2018-06-01] MEDS: INSULIN LISPRO 300 UNITS/3 ML INSULN.PEN. SQ SCH ×4 (08:00→17:00)
[2018-06-01] MEDS: ZONISAMIDE 100 MG CAPSULE. PO SCH (09:00)
[2018-06-01] MEDS: POLYETHYLENE GLYCOL 3350 17 GM PACKET. PO SCH (09:00)
[2018-06-01] MEDS: levETIRAcetam 250 MG TABLET PO SCH ×2 (09:00→21:15)
[2018-06-01] MEDS: MULTIVITAMIN with MINERAL TABLET. PO SCH (09:01)
[2018-06-01] MEDS: ASCORBIC ACID 500 MG TABLET PO SCH (09:01)
[2018-06-01] MEDS: ASPIRIN ENTERIC COATED 81 MG TABLET.DR. PO SCH (09:01)
[2018-06-01] MEDS: METOPROLOL TART IMMED RELEASE 50 MG TABLET. PO SCH ×2 (09:01→21:16)
[2018-06-01] MEDS: metFORMIN 500 MG TABLET PO SCH ×2 (09:01→16:14)
[2018-06-01] MEDS: FUROSEMIDE 40 MG TABLET. PO SCH (09:02)
[2018-06-01] MEDS: hydrALAZINE 10 MG TABLET PO SCH ×3 (09:02→21:16)
[2018-06-01] MEDS: GABAPENTIN 300 MG CAPSULE. PO SCH (09:02)
[2018-06-01] MEDS: POTASSIUM CHLORIDE 20 MEQ TABLET.ER. PO SCH (09:02)
--- NOTE | 2018-06-01 09:52 | PDOC ---
Infectious Disease Note Subjective Subjective Doing ok. Eating some but never hungry Denies gen aches Low-grade fevers - better Denies abd pain/chills/SOA/upset stomach ROS ROS o/w neg Vital Sign Vital Signs Vital Signs Date Time Temp Pulse Resp B/P (MAP) Pulse Ox O2 Delivery O2 Flow Rate FiO2 06/01/18 09:02 65 125/46 06/01/18 07:36 97.3 16 95 Nasal Cannula 2.0 97.3 Physical Exam PHYSICAL EXAM GEN: Propped up in bed, alert, Looks better. Smiling HEENT: Pupils equally round, reactive. Normal conjunctivae. Oral cavity, pharynx pink, dry NECK: Supple. LUNGS: Clear anteriorly HEART: S1 and S2, soft murmur. Irregular. ABDOMEN: Obese, soft and Non tender with bowel sounds present. GENITOURINARY: Indwelling Crawley in place. 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 Left foot wound clean - no bone exposure SKIN: Warm without rash. No peripheral stigmata. Several tattoos. NEUROLOGIC: Alert, coop - still a little confused but realizes he has his days and nights mixed up PICC RUE - clean Labs Lab Laboratory Tests Test 05/31/18 11:28 05/31/18 16:49 05/31/18 19:27 06/01/18 05:30 Glucose (Fingerstick) 89 mg/dL (70-99) 94 mg/dL (70-99) 97 mg/dL (70-99) Prothrombin Time 29.2 SEC (11.7-14.0) Prothromb Time International Ratio 2.8 (0.8-1.1) Test 06/01/18 07:44 Glucose (Fingerstick) 124 mg/dL (70-99) Micro Microbiology 05/24/18 Blood Culture - Preliminary, Resulted NO GROWTH AFTER 2 DAYS 05/19/18 Urine Culture - Final, Complete 05/19/18 Urine Culture Result 1 (FELICITA) - Final, Complete 05/19/18 Anaerobic/Aerobic Culture - Final, Complete 05/19/18 Anaerobic Culture Result 1 (FELICITA) - Final, Complete 05/19/18 Aerobic Culture - Final, Complete 05/19/18 Aerobic Culture Result 1 (FELICITA) - Final, Complete 05/19/18 Aerobic Culture Result 2 (FELICITA) - Final, Complete 05/19/18 Antimicrobic Susceptibility - Final, Complete 05/19/18 Gram Stain - Final, Complete 05/19/18 Gram Stain Result 1 (FELICITA) - Final, Complete 05/19/18 Gram Stain Result 2 (FELICITA) - Final, Complete Objective Assessment Fevers better overall. repeat UA and BC from 05/24 neg so far Leukocytosis - better Constipation ? chlolecystisis - non tender better MRSA bacteremia (4 of 4 bottles) with sepsis, POA source possible foot infecti on- Dapto sensitive 05/18 -CRYSTAL done no vegetations 05/21; BC from 05/20 & 05/21 neg Infected necrotic ulcer left ankle s/p I and D 05/21. 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 Severe PAD s/p BLE stents and previous toe amputations Bioprosthetic aortic valve Renal insufficiency/JIMMY - better Encephalopathy - improved but still some confusion Coagulopathy, on chronic warfarin A- fib RVR Diabetes Type II h/o PSA ( R quinolones & I imipenem) h/o group B strep bacteremia, 2016 Plan Plan of Care Gen surg following Cont Dapto (susceptible 05/18)- 6 weeks = July 02 D/c Merrem (05/24) - wound is clean and no bone D/c Micafungin(05/27) after 7 days (06/02) Monitor labs CK/CMP/CBC with diff Q Monday while on Daptomycin Local wound care and offloading MACARIO PRIEST MD Jun 01, 2018 09:52
[2018-06-01] MEDS: oxyCODONE/APAP 10/325 1 TAB TABLET PO PRN (10:46)
[2018-06-01] MEDS: IV RINGERS,LACTATED 1000ML 1,000 ML IV SCH (11:20)
[2018-06-01 11:21] VITALS: BP 118/52
[2018-06-01] MEDS: MICAFUNGIN 100 MG in IV DEXTROSE 5% 100ML 100 ML IV SCH (12:14)
[2018-06-01] MEDS: DAPTOmycin (GENERIC) IVPB 590 MG in IV NORMAL SALINE 50ML 50 ML IV SCH (12:15)
--- NOTE | 2018-06-01 12:36 | PDOC ---
PROGRESS NOTES Chief Complaint Chief Complaint Severe sepsis cellulitis w/ gangrenous toes MRSA bacteremia (4 of 4 bottles) with sepsis, POA source //foot infection -CRYSTAL done no vegetations 05/21; BC from 05/20 & 05/21 neg A. 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 A neoplastic etiology cannot be excluded and CT follow-up may be prudent. Small bilateral pleural effusions with mild bibasilar atelectasis. Distended gallbladder containing material of medium density. This may represent sludge History of Present Illness History of Present Illness plan LTAC or snu, palliative care following, change to hospice at home would be a fine option, he is not improving much cont current other, still will need 4 weeks of IV abx for treatment plan ID following PT/OT Vitals Vitals Vital Signs Date Time Temp Pulse Resp B/P (MAP) Pulse Ox O2 Delivery O2 Flow Rate FiO2 06/01/18 11:22 Nasal Cannula 2.0 06/01/18 11:21 98.0 73 16 118/52 (74) 98 98.0 Physical Exam Physical Exam GEN: Propped up in bed, alert, Looks better. Smiling HEENT: Pupils equally round, reactive. Normal conjunctivae. Oral cavity, pharynx pink, dry NECK: Supple. LUNGS: Clear anteriorly HEART: S1 and S2, soft murmur. Irregular. ABDOMEN: Obese, soft and Non tender with bowel sounds present. GENITOURINARY: Indwelling Crawley in place. 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 Left foot wound clean - no bone exposure SKIN: Warm without rash. No peripheral stigmata. Several tattoos. 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 right, chronic hyperpigmentation bilateral shins and foot) Labs LABS Laboratory Tests Test 05/31/18 16:49 05/31/18 19:27 06/01/18 05:30 06/01/18 07:44 Glucose (Fingerstick) 94 mg/dL (70-99) 97 mg/dL (70-99) 124 mg/dL (70-99) Prothrombin Time 29.2 SEC (11.7-14.0) Prothromb Time International Ratio 2.8 (0.8-1.1) Test 06/01/18 12:16 Glucose (Fingerstick) 127 mg/dL (70-99) Assessment and Plan Assessmemt and Plan Problems Medical Problems: (1) Fever Status: Acute (2) Gangrene of toe Status: Acute (3) Leukocytosis Status: Acute (4) Severe sepsis Status: Acute Comment Review of Relevant I have reviewed the following items navi (where applicable) has been applied. Labs Laboratory Tests Test 05/30/18 12:49 05/30/18 16:57 05/30/18 20:39 05/31/18 05:15 Glucose (Fingerstick) 109 mg/dL (70-99) 111 mg/dL (70-99) 145 mg/dL (70-99) Sodium Level 136 mmol/L (136-145) Potassium Level 4.2 mmol/L (3.5-5.1) Chloride Level 104 mmol/L (98-107) Carbon Dioxide Level 24 mmol/L (21-32) Anion Gap 8 (6-14) Blood Urea Nitrogen 11 mg/dL (8-26) Creatinine 1.0 mg/dL (0.7-1.3) Estimated GFR (Cockcroft-Gault) 72.6 Glucose Level 114 mg/dL (70-99) Calcium Level 8.1 mg/dL (8.5-10.1) Total Bilirubin 0.5 mg/dL (0.2-1.0) Direct Bilirubin 0.3 mg/dL (0.0-0.2) Aspartate Amino Transf (AST/SGOT) 90 U/L (15-37) Alanine Aminotransferase (ALT/SGPT) 49 U/L (16-63) Alkaline Phosphatase 103 U/L (46-116) Creatine Kinase 218 U/L (39-308) Total Protein 6.2 g/dL (6.4-8.2) Albumin 1.5 g/dL (3.4-5.0) Test 05/31/18 05:20 05/31/18 07:19 05/31/18 11:28 05/31/18 16:49 White Blood Count 9.6 x10^3/uL (4.0-11.0) Red Blood Count 2.98 x10^6/uL (4.30-5.70) Hemoglobin 7.8 g/dL (13.0-17.5) Hematocrit 25.6 % (39.0-53.0) Mean Corpuscular Volume 86 fL (79-100) Mean Corpuscular Hemoglobin 26 pg (25-35) Mean Corpuscular Hemoglobin Concent 31 g/dL (31-37) Red Cell Distribution Width 16.4 % (11.5-14.5) Platelet Count 314 x10^3/uL (140-400) Neutrophils (%) (Auto) 80 % (31-73) Lymphocytes (%) (Auto) 7 % (24-48) Monocytes (%) (Auto) 10 % (0-9) Eosinophils (%) (Auto) 2 % (0-3) Basophils (%) (Auto) 1 % (0-3) Neutrophils # (Auto) 7.7 x10^3uL (1.8-7.7) Lymphocytes # (Auto) 0.7 x10^3/uL (1.0-4.8) Monocytes # (Auto) 1.0 x10^3/uL (0.0-1.1) Eosinophils # (Auto) 0.2 x10^3/uL (0.0-0.7) Basophils # (Auto) 0.1 x10^3/uL (0.0-0.2) Prothrombin Time 26.0 SEC (11.7-14.0) Prothromb Time International Ratio 2.4 (0.8-1.1) Glucose (Fingerstick) 113 mg/dL (70-99) 89 mg/dL (70-99) 94 mg/dL (70-99) Test 05/31/18 19:27 06/01/18 05:30 06/01/18 07:44 06/01/18 12:16 Glucose (Fingerstick) 97 mg/dL (70-99) 124 mg/dL (70-99) 127 mg/dL (70-99) Prothrombin Time 29.2 SEC (11.7-14.0) Prothromb Time International Ratio 2.8 (0.8-1.1) Laboratory Tests Test 05/31/18 16:49 05/31/18 19:27 06/01/18 05:30 06/01/18 07:44 Glucose (Fingerstick) 94 mg/dL (70-99) 97 mg/dL (70-99) 124 mg/dL (70-99) Prothrombin Time 29.2 SEC (11.7-14.0) Prothromb Time International Ratio 2.8 (0.8-1.1) Test 06/01/18 12:16 Glucose (Fingerstick) 127 mg/dL (70-99) Microbiology 05/27/18 Blood Culture - Preliminary, Resulted NO GROWTH AFTER 4 DAYS 05/19/18 Urine Culture - Final, Complete 05/19/18 Urine Culture Result 1 (FELICITA) - Final, Complete 05/19/18 Anaerobic/Aerobic Culture - Final, Complete 05/19/18 Anaerobic Culture Result 1 (FELICITA) - Final, Complete 05/19/18 Aerobic Culture - Final, Complete 05/19/18 Aerobic Culture Result 1 (FELICITA) - Final, Complete 05/19/18 Aerobic Culture Result 2 (FELICITA) - Final, Complete 05/19/18 Antimicrobic Susceptibility - Final, Complete 05/19/18 Gram Stain - Final, Complete 05/19/18 Gram Stain Result 1 (FELICITA) - Final, Complete 05/19/18 Gram Stain Result 2 (FELICITA) - Final, Complete Medications Current Medications Sodium Chloride 1,000 ml @ 2,190 mls/hr Q28M IV Last administered on 05/18/18at 14:36; Start 05/18/18 at 12:52; Stop 05/18/18 at 13:52; Status DC Piperacillin Sod/ Tazobactam Sod 4.5 gm/Sodium Chloride 100 ml @ 200 mls/hr 1X ONCE IV Last administered on 05/18/18at 14:34; Start 05/18/18 at 13:00; Stop 05/18/18 at 13:29; Status DC Vancomycin HCl (Vanco Per Pharmacy) 1 each 1X ONCE MC Last administered on 05/18/18at 13:00; Start 05/18/18 at 13:00; Stop 05/18/18 at 13:11; Status DC Vancomycin HCl 2 gm/Sodium Chloride 500 ml @ 250 mls/hr 1X ONCE IV Last administered on 05/18/18at 15:28; Start 05/18/18 at 13:15; Stop 05/18/18 at 15:14; Status DC Ondansetron HCl (Zofran) 4 mg PRN Q8HRS PRN IV NAUSEA/VOMITING; Start 05/18/18 at 14:45; Stop 05/18/18 at 15:28; Status DC Fentanyl Citrate (Fentanyl 2ml Vial) 50 mcg PRN Q1HR PRN IV PAIN; Start 05/18/18 at 14:45; Stop 05/19/18 at 11:50; Status DC Sodium Chloride 1,000 ml @ 80 mls/hr [id number] IV ; Start 05/18/18 at 14:43; Stop 05/18/18 at 18:42; Status DC Acetaminophen (Tylenol) 650 mg 1X ONCE PO Last administered on 05/18/18at 15:29; Start 05/18/18 at 15:30; Stop 05/18/18 at 15:31; Status DC Ondansetron HCl (Zofran) 4 mg PRN Q6HRS PRN IV NAUSEA/VOMITING Last administered on 05/24/18at 06:14; Start 05/18/18 at 15:30 Diltiazem HCl (Cardizem Iv Push) 10 mg 1X ONCE IVP ; Start 05/18/18 at 15:30; Stop 05/18/18 at 15:31; Status DC Acetaminophen (Tylenol) 500 mg PRN Q6HRS PRN PO MILD PAIN / TEMP; Start 05/18/18 at 15:30; Stop 05/18/18 at 16:14; Status DC Acetaminophen/ Codeine Phosphate (Tylenol #3) 1 tab PRN Q6HRS PRN PO MODERATE PAIN Last administered on 05/26/18at 21:56; Start 05/18/18 at 15:30 Morphine Sulfate (Morphine Sulfate) 2 mg PRN Q2HR PRN IV PAIN Last administered on 05/30/18at 11:11; Start 05/18/18 at 15:30 Oxycodone/ Acetaminophen (Percocet 5/325) 1 tab PRN Q4HRS PRN PO SEVERE PAIN Last administered on 06/01/18 02:22; Start 05/18/18 at 15:30 Albuterol Sulfate (Ventolin Hfa) 2 puff PRN Q6HRS PRN IH SHORTNESS OF BREATH; Start 05/18/18 at 15:30; Status UNV Digoxin (Lanoxin) 125 mcg DAILY PO ; Start 05/19/18 at 09:00; Stop 05/19/18 at 09:00; Status DC Furosemide (Lasix) 40 mg DAILY PO Last administered on 06/01/18 09:02; Start 05/19/18 at 09:00 Gabapentin (Neurontin) 300 mg DAILY PO Last administered on 06/01/18 09:02; Start 05/19/18 at 09:00 Lisinopril (Prinivil) 20 mg DAILY PO Last administered on 05/19/18at 10:14; Start 05/19/18 at 09:00; Stop 05/24/18 at 15:20; Status DC Metoprolol Tartrate (Lopressor) 50 mg BID PO Last administered on 06/01/18 09:01; Start 05/18/18 at 21:00 Oxycodone/ Acetaminophen (Percocet 10/325) 1 tab PRN Q6HRS PRN PO SEVERE PAIN (2ND Choice) Last administered on 06/01/18at 10:46; Start 05/18/18 at 15:30 Oxycodone/ Acetaminophen (Percocet 5/325) 1 tab PRN Q4HRS PRN PO PAIN; Start 05/18/18 at 15:30; Status UNV Acetaminophen (Tylenol) 500 mg PRN Q6HRS PRN PO MILD PAIN / TEMP Last administered on 05/27/18at 23:35; Start 05/18/18 at 16:15 Atorvastatin Calcium (Lipitor) 80 mg QHS PO Last administered on 05/31/18at 22:01; Start 05/18/18 at 21:00 Hydralazine HCl (Apresoline) 10 mg TID PO Last administered on 06/01/18at 09:02; Start 05/18/18 at 16:00 Insulin Human Lispro (HumaLOG) 10 units DAILYWBKFT SQ Last administered on 05/23/18 08:58; Start 05/18/18 at 17:00; Stop 05/23/18 at 14:25; Status DC Levetiracetam (Keppra) 1,250 mg BID PO Last administered on 06/01/18 09:00; Start 05/18/18 at 21:00 Metformin HCl (Glucophage) 1,000 mg BIDWMEALS PO Last administered on 06/01/18 09:01; Start 05/18/18 at 17:00 Multivitamins (Thera M Plus) 1 tab DAILY PO Last administered on 06/01/18 09:01; Start 05/19/18 at 09:00 Potassium Chloride (Klor-Con) 20 meq DAILYWBKFT PO Last administered on 06/01/18 09:02; Start 05/19/18 at 08:00 Risperidone (RisperDAL) 1 mg QHS PO Last administered on 05/30/18 20:38; Start 05/18/18 at 21:00 Non-Formulary Medication (Rosuvastatin Calcium (Crestor)) 40 mg DAILY PO ; Start 05/19/18 at 09:00; Status UNV Zonisamide (Zonegran) 400 mg DAILY PO Last administered on 06/01/18 09:00; Start 05/19/18 at 09:00 Albuterol/ Ipratropium (Duoneb) 3 ml Q4HRS W/A NEB Last administered on 06/01/18 11:22; Start 05/18/18 at 18:00 Insulin Human Lispro (HumaLOG) 0-9 UNITS TIDWMEALS SQ Last administered on 05/26/18 18:04; Start 05/18/18 at 17:00 Dextrose (Dextrose 50%-Water Syringe) 12.5 gm PRN Q15MIN PRN IV SEE COMMENTS Last administered on 05/25/18 06:04; Start 05/18/18 at 15:30 Albuterol Sulfate (Ventolin Neb Soln) 2.5 mg PRN Q6HRS PRN NEB SHORTNESS OF BREATH Last administered on 05/26/18 08:35; Start 05/18/18 at 15:45 Piperacillin Sod/ Tazobactam Sod 3.375 gm/Sodium Chloride 50 ml @ 100 mls/hr Q6HRS IV Last administered on 05/24/18at 05:33; Start 05/18/18 at 18:00; Stop 05/24/18 at 08:09; Status DC Potassium Chloride (Klor-Con) 40 meq 1X ONCE PO Last administered on 05/19/18at 10:14; Start 05/19/18 at 08:30; Stop 05/19/18 at 08:31; Status DC Heparin Sodium (Porcine) (Heparin Sodium) 5,000 unit Q8HRS SQ ; Start 05/19/18 at 14:00; Stop 05/19/18 at 14:00; Status DC Furosemide (Lasix) 40 mg 1X ONCE IVP Last administered on 05/19/18at 10:12; Start 05/19/18 at 08:45; Stop 05/19/18 at 08:46; Status DC Phytonadione (Vitamin K Ampule) 10 mg 1X ONCE SQ Last administered on 05/19/18at 10:16; Start 05/19/18 at 10:00; Stop 05/19/18 at 10:01; Status DC Vancomycin HCl (Vanco Per Pharmacy) 1 each PRN DAILY PRN MC SEE COMMENTS Last administered on 05/19/18at 10:32; Start 05/19/18 at 10:00; Stop 05/20/18 at 10:42; Status DC Phytonadione (Vitamin K Ampule) 10 mg 1X ONCE SQ ; Start 05/19/18 at 10:15; Stop 05/19/18 at 10:16; Status UNV Vancomycin HCl 1.75 gm/Sodium Chloride 500 ml @ 250 mls/hr Q24H IV Last administered on 05/19/18at 16:59; Start 05/19/18 at 16:00; Stop 05/20/18 at 10:42; Status DC Vancomycin HCl (Vancomycin Trough Level) 1 each 1X ONCE MC ; Start 05/20/18 at 16:30; Stop 05/20/18 at 16:30; Status DC Acetaminophen (Tylenol Supp) 650 mg PRN Q6HRS PRN OR MILD PAIN / TEMP Last administered on 05/23/18at 23:33; Start 05/20/18 at 01:15 Sodium Chloride 500 ml @ 333 mls/hr 1X ONCE IV Last administered on 05/20/18at 01:14; Start 05/20/18 at 01:15; Stop 05/20/18 at 02:45; Status DC Phytonadione 5 mg/ Dextrose 50.5 ml @ 101 mls/hr 1X ONCE IV Last administered on 05/20/18at 10:08; Start 05/20/18 at 10:30; Stop 05/20/18 at 10:59; Status DC Daptomycin 590 mg/ Sodium Chloride 50 ml @ 100 mls/hr Q24H IV Last administered on 06/01/18at 12:15; Start 05/20/18 at 12:00 Ondansetron HCl (Zofran) 4 mg PRN Q6HRS PRN IV NAUSEA/VOMITING; Start 05/21/18 at 09:45; Stop 05/22/18 at 09:44; Status DC Fentanyl Citrate (Fentanyl 2ml Vial) 25 mcg PRN Q5MIN PRN IV MILD PAIN; Start 05/21/18 at 09:45; Stop 05/22/18 at 09:44; Status DC Fentanyl Citrate (Fentanyl 2ml Vial) 50 mcg PRN Q5MIN PRN IV MODERATE TO SEVERE PAIN; Start 05/21/18 at 09:45; Stop 05/22/18 at 09:44; Status DC Morphine Sulfate (Morphine Sulfate) 1 mg PRN Q10MIN PRN IV SEVERE PAIN; Start 05/21/18 at 09:45; Stop 05/22/18 at 09:44; Status DC Ringer's Solution 1,000 ml @ 30 mls/hr Q24H IV ; Start 05/21/18 at 09:39; Stop 05/22/18 at 00:37; Status DC Lidocaine HCl (Xylocaine-Mpf 1% 2ml Vial) 2 ml 1X PRN PRN ID IV START; Start 05/21/18 at 09:45; Stop 05/22/18 at 09:44; Status DC Hydromorphone HCl (Dilaudid) 0.5 mg PRN Q10MIN PRN IV SEV PAIN, Second choice; Start 05/21/18 at 09:45; Stop 05/22/18 at 09:44; Status DC Prochlorperazine Edisylate (Compazine) 5 mg PACU PRN PRN IV NAUSEA, MRX1; Start 05/21/18 at 09:45; Stop 05/22/18 at 09:44; Status DC Lidocaine HCl (Glydo (Lidocaine) Jelly) 1 vianney 1X ONCE MM ; Start 05/21/18 at 12:30; Stop 05/21/18 at 12:31; Status DC Propofol 20 ml @ As Directed STK-MED ONCE IV ; Start 05/21/18 at 12:27; Stop 05/21/18 at 12:28; Status DC Dexamethasone Sodium Phosphate (Decadron) 20 mg STK-MED ONCE .ROUTE ; Start 05/21/18 at 12:27; Stop 05/21/18 at 12:28; Status DC Famotidine (Pepcid Vial) 20 mg STK-MED ONCE .ROUTE ; Start 05/21/18 at 12:27; Stop 05/21/18 at 12:28; Status DC Lidocaine HCl (Lidocaine Pf 2% Vial) 5 ml STK-MED ONCE .ROUTE ; Start 05/21/18 at 12:27; Stop 05/21/18 at 12:28; Status DC Ondansetron HCl (Zofran) 4 mg STK-MED ONCE .ROUTE ; Start 05/21/18 at 12:27; Stop 05/21/18 at 12:28; Status DC Fentanyl Citrate (Fentanyl 2ml Vial) 100 mcg STK-MED ONCE .ROUTE ; Start 05/21/18 at 12:27; Stop 05/21/18 at 12:28; Status DC Bacitracin 23366 unit/Sodium Chloride 500 ml @ 500 mls/hr 1X ONCE IRR ; Start 05/21/18 at 12:40; Stop 05/21/18 at 13:39; Status DC Cefazolin Sodium 1 gm/Sodium Chloride 500 ml @ 500 mls/hr 1X ONCE IRR ; Start 05/21/18 at 12:40; Stop 05/21/18 at 13:39; Status DC Lidocaine HCl 20 ml STK-MED ONCE .ROUTE ; Start 05/21/18 at 11:42; Stop 05/21/18 at 12:42; Status DC Esmolol HCl (Brevibloc) 100 mg STK-MED ONCE IVP ; Start 05/21/18 at 13:01; Stop 05/21/18 at 13:02; Status DC Esmolol HCl (Brevibloc) 100 mg STK-MED ONCE IVP ; Start 05/21/18 at 14:22; Stop 05/21/18 at 14:23; Status DC Neomycin/ Polymyxin/ Bacitracin (Triple Antibiotic Ointment) 1 pkt STK-MED ONCE TP Last administered on 05/21/18at 14:41; Start 05/21/18 at 13:38; Stop 05/21/18 at 14:38; Status DC Sevoflurane (Ultane) 90 ml STK-MED ONCE IH ; Start 05/21/18 at 14:40; Stop 05/21/18 at 14:41; Status DC Naloxone HCl (Narcan) 0.4 mg PRN Q2MIN PRN IV SEE INSTRUCTIONS; Start 05/21/18 at 15:00 Sodium Chloride 1,000 ml @ 25 mls/hr Q24H IV ; Start 05/21/18 at 14:57; Stop 05/24/18 at 07:00; Status DC Morphine Sulfate 30 ml @ 0 mls/hr CONT PRN PRN IV PER PROTOCOL; Start 05/21/18 at 15:00 Labetalol HCl (Normodyne Iv Push) 20 mg PRN Q2HR PRN IVP HYPERTENSION, SEE COMMENTS Last administered on 05/24/18at 00:15; Start 05/21/18 at 15:30 Labetalol HCl (Normodyne Iv Push) 5 mg 1X PACU PRN IVP tachycardia and HTN Last administered on 05/21/18at 15:30; Start 05/21/18 at 15:30; Stop 05/22/18 at 09:09; Status DC Insulin Glargine (Lantus) 3 units 1X ONCE SQ Last administered on 05/21/18at 22:00; Start 05/21/18 at 22:00; Stop 05/22/18 at 01:31; Status DC Aspirin (Ecotrin) 81 mg DAILYWBKFT PO Last administered on 06/01/18at 09:01; Start 05/23/18 at 08:00 Digoxin (Lanoxin) 250 mcg 1X ONCE IV Last administered on 05/22/18at 12:28; Start 05/22/18 at 12:30; Stop 05/22/18 at 12:31; Status DC Warfarin Sodium (Coumadin) 6 mg DAILY16 PO ; Start 05/22/18 at 16:00; Stop 05/22/18 at 16:00; Status DC Warfarin Sodium (Coumadin) 2.5 mg 3X/WEEK PO ; Start 05/23/18 at 09:00; Status UNV Warfarin Sodium (Coumadin Per Physician) 1 each PRN DAILY PRN MC SEE COMMENTS; Start 05/22/18 at 14:45; Stop 05/22/18 at 14:57; Status DC Warfarin Sodium (Coumadin Per Pharmacy) 1 each PRN DAILY PRN MC SEE COMMENTS Last administered on 05/31/18at 17:07; Start 05/22/18 at 15:00 Warfarin Sodium (Coumadin) 4 mg 1X WARF ONCE PO Last administered on 05/22/18at 16:19; Start 05/22/18 at 16:00; Stop 05/22/18 at 16:01; Status DC Warfarin Sodium (Coumadin) 4 mg 1X WARF ONCE PO ; Start 05/23/18 at 16:00; Stop 05/23/18 at 16:01; Status DC Ringer's Solution 1,000 ml @ 75 mls/hr [id number] IV ; Start 05/23/18 at 13:45; Status Cancel Ringer's Solution 1,000 ml @ 75 mls/hr [id number] IV Last administered on at 11:38; Start 05/23/18 at 14:00 Insulin Human Lispro (HumaLOG) 7 units DAILYWBKFT SQ ; Start 05/24/18 at 08:00; Stop 05/25/18 at 12:44; Status DC Dextrose (Dextrose 50%-Water Syringe) 25 gm 1X ONCE IV Last administered on 05/23/18at 13:15; Start 05/23/18 at 17:45; Stop 05/23/18 at 17:46; Status DC Meropenem 500 mg/ Sodium Chloride 50 ml @ 100 mls/hr Q6HRS IV Last admini stered on 06/01/18at 05:32; Start 05/24/18 at 12:00; Stop 06/01/18 at 09:46; Status DC Warfarin Sodium (Coumadin) 6 mg 1X WARF ONCE PO Last administered on 05/24/18at 15:33; Start 05/24/18 at 16:00; Stop 05/24/18 at 16:01; Status DC Insulin Human Lispro (HumaLOG) 3 units DAILYWBKFT SQ Last administered on 05/31/18at 09:05; Start 05/26/18 at 08:00 Warfarin Sodium (Coumadin) 6 mg 1X WARF ONCE PO Last administered on 05/25/18 16:04; Start 05/25/18 at 16:00; Stop 05/25/18 at 16:01; Status DC Polyethylene Glycol (miraLAX PACKET) 17 gm DAILY PO Last administered on 06/01/18 09:00; Start 05/26/18 at 14:00 Warfarin Sodium (Coumadin) 7.5 mg 1X WARF ONCE PO Last administered on 05/27/18at 17:56; Start 05/27/18 at 16:00; Stop 05/27/18 at 16:01; Status DC Micafungin Sodium 100 mg/Dextrose 100 ml @ 100 mls/hr Q24H IV Last administered on 06/01/18at 12:14; Start 05/27/18 at 12:00 Warfarin Sodium (Coumadin) 6 mg 1X WARF ONCE PO Last administered on 05/28/18at 17:32; Start 05/28/18 at 16:00; Stop 05/28/18 at 16:01; Status DC Ascorbic Acid (Vitamin C) 500 mg DAILY PO Last administered on 06/01/18 09:01; Start 05/28/18 at 16:00 Warfarin Sodium (Coumadin) 6 mg 1X WARF ONCE PO Last administered on 05/29/18at 17:04; Start 05/29/18 at 16:00; Stop 05/29/18 at 16:01; Status DC Warfarin Sodium (Coumadin) 6 mg 1X WARF ONCE PO Last administered on 05/30/18 15:29; Start 05/30/18 at 16:00; Stop 05/30/18 at 16:01; Status DC Lidocaine/Sodium Bicarbonate (Buffered Lidocaine 1%) 3 ml bitmovin-MED ONCE .ROUTE ; Start 05/30/18 at 13:48; Stop 05/30/18 at 13:49; Status DC Warfarin Sodium (Coumadin) 6 mg 1X WARF ONCE PO Last administered on 05/31/18 17:23; Start 05/31/18 at 16:00; Stop 05/31/18 at 16:01; Status DC Active Scripts Active Digoxin 125 Mcg Tablet 125 Mcg PO DAILY Furosemide 40 Mg Tablet 40 Mg PO DAILY Metoprolol Tartrate 50 Mg Tablet 50 Mg PO BID [Warfarin Sodium] 1 EACH Each 1 Each MC PRN DAILY PRN Lisinopril 20 Mg Tablet 20 Mg PO DAILY Duoneb 0.5-3(2.5) Mg/3 Ml (Albuterol/Ipratropium) 3 Ml Ampul.neb 3 Ml NEB Q4HRS W/A 30 Days Hydralazine Hcl 10 Mg Tablet 10 Mg PO TID Reported Zonisamide 100 Mg Capsule 400 Mg PO DAILY Percocet 5-325 Mg Tablet (Oxycodone/Acetaminophen) 1 Each Tablet 1 Tab PO PRN Q4HRS PRN Multivitamins (Multivitamin) 1 Each Tablet 1 Tab PO DAILY Levetiracetam 250 Mg Tablet 1,250 Mg PO BID Novolin N (Nph, Human Insulin Isophane) 100 Unit/1 Ml Vial Unknown Dose SQ Atorvastatin Calcium 80 Mg Tablet 1 Tab PO DAILY Acetaminophen 500 Mg Tablet 1 Tab PO PRN Q6HRS PRN Albuterol Sulfate Hfa Inhaler (Albuterol Sulfate) 8.5 Gm Hfa.aer.ad 2 Puff IH PRN Q6HRS PRN Aspirin Ec (Aspirin) 325 Mg Tablet.dr 81 Mg PO DAILY Crestor (Rosuvastatin Calcium) 40 Mg Tablet 40 Mg PO DAILY Warfarin Sodium 5 Mg Tablet 6 Mg PO DAILY Warfarin Sodium 2.5 Mg Tablet 2.5 Mg PO 3X/WEEK monday,monday, Gabapentin (Gabapentin) 300 Mg Capsule 300 Mg PO DAILY Risperidone 1 Mg Tablet 1 Mg PO HS Novolog (Insulin Aspart) 100 Unit/1 Ml Vial 10 Unit SQ DAILYAC Oxycodone-Acetaminophen 10-325 (Oxycodone Hcl/Acetaminophen) 1 Each Tablet 1 Each PO PRN Q6HRS Potassium 99 Mg Tablet 20 Meq PO DAILY Prednisone (Prednisone) 10 Mg Tablet 10 Mg PO DAILY Metformin Hcl 500 Mg Tablet 1,000 Mg PO BIDBFRMEAL Vitals/I & O Vital Sign - Last 24 Hours 05/31/18 05/31/18 05/31/18 05/31/18 14:00 15:10 15:45 19:25 Temp 98.2 98.2 Pulse 83 87 Resp 20 B/P (MAP) 112/47 95/44 (61) Pulse Ox 92 O2 Delivery Nasal Cannula Nasal Cannula Nasal Cannula O2 Flow Rate 2.0 2.0 2.0 05/31/18 05/31/18 05/31/1819 19:59 20:29 22:02 22:02 Temp 97.8 97.8 Pulse 46 46 46 Resp 16 B/P (MAP) 110/42 (64) 110/42 110/42 Pulse Ox 93 O2 Delivery Nasal Cannula Nasal Cannula O2 Flow Rate 2.0 2.0 05/31/18 06/01/18 06/01/18 06/01/18 23:33 03:30 03:44 07:34 Temp 98.0 98.2 98.0 98.2 Pulse 141 128 Resp 18 16 18 B/P (MAP) 123/67 (85) 131/47 (75) Pulse Ox 96 94 94 95 O2 Delivery Nasal Cannula Nasal Cannula Nasal Cannula Nasal Cannula O2 Flow Rate 2.0 2.0 2.0 2.0 06/01/18 06/01/18 06/01/18 06/01/18 07:36 08:00 09:01 09:02 Temp 97.3 97.3 Pulse 65 65 65 Resp 16 B/P (MAP) 125/46 (72) 125/46 125/46 Pulse Ox 95 O2 Delivery Nasal Cannula Nasal Cannula O2 Flow Rate 2.0 2.0 06/01/18 06/01/18 11:21 11:22 Temp 98.0 98.0 Pulse 73 Resp 16 B/P (MAP) 118/52 (74) Pulse Ox 98 O2 Delivery Nasal Cannula Nasal Cannula O2 Flow Rate 2.0 2.0 Intake and Output 05/31/18 05/31/18 06/01/18 14:59 22:59 06:59 Intake Total 300 ml 150 ml 100 ml Output Total 1000 ml 1350 ml Balance 300 ml -850 ml -1250 ml Nutrition Consultation Dietary Evaluation: Recommendations by RD: Increase Calorie Intake, Protein supplementation Comments: Continue diet per [employer] with ADA/cardiac diet restrictions per pmhx, can liberalize as needed to provide foods that pt likes continue Glucerna TID (chocolate) Continue MVI and Vit C (500 mg BID) Expected Outcomes/Goals: PO intake to meet >75% est needs - not met, goal ongoing Malnutrition Findings: Food and Nutrition Intake (Mod: <75% est energy req 7days Weight Status: Obese ZAK MENDEZ MD Jun 01, 2018 12:36
--- NOTE | 2018-06-01 13:26 | NUR ---
Pharmacy Warfarin Dosing Note S:Pharmacy consulted to assist with anticoagulation therapy started with target INR: 2 -3 O:VICKI BRAUN is a 78 year old M with Atrial Fibrillation Bioprosthetic Valve LABS: Last INR: 2.8 Last HGB: 7.8 Last HCT: 25.6 Last PLT: 314 Last dose of 6 mg given on 05/31/18 at 1529 Previous Regimen: 4mg/day except 2 mg Sat/Sun Vitamin K given: Y 05/19: 10 MG SUB-Q, 05/20: 5 MG IV Drug Interaction Changes: New Interacting Drug Ongoing Drug Interactions: Zosyn A:INR of 2.8 is within desired range. Target range for this patient is: 2 -3 P: Warfarin dose: 3 mg Today at 1600 Bridge Therapy: None Next INR due TOMORROW. Pharmacy anticoagulation service will continue to follow. NENITA LAM [facility], 06/01/18 [id number]
[2018-06-01 15:00] VITALS: BP 118/53
--- NOTE | 2018-06-01 15:24 | NUR ---
SW following pt. Spoke with Bindu at [facility] who reported he will try to see pt today or Monday. He also reported they will request insurance to carve out cost of Iv abx. Pt is at baseline for PT/OT at this time. Discussed with pt's at bedside.
--- NOTE | 2018-06-01 15:25 | NUR ---
Wound Care Wound care consult for multiple wounds. Pt has DFU to Left ankle, cleansed, redressed with saline moistened Aquacel Ag and foam. Change every 3 days. Pt has Skin tears to L forearm and shoulder, left foam in place for protection, they are both scabbed. Pt has stage II PU to coccyx and unstageable PU to what appears to be a hemorrhoid on anus. Cleansed wounds and applied A&D ointment as pt is having diarrhea and is incontinent. Turned pt to right side with heels floated. Pt should be L&R turn only. WC will continue to follow for possible changes.
[2018-06-01] MEDS ORDERED: WARFARIN 3 MG TABLET. PO ONE (16:00)
--- NOTE | 2018-06-01 17:37 | NUR ---
Pt transferred to room 534. Report called to DANNY Galeas. All belongings with patient at time of transfer. , Christine, at the bedside.
[2018-06-01 19:59] VITALS: BP 125/45
[2018-06-01] MEDS: risperiDONE 1 MG TABLET. PO SCH (21:16)
[2018-06-01] MEDS: ATORVASTATIN CALCIUM 40 MG TABLET. PO SCH (21:16)
[2018-06-01] MEDS: VITS A & D/LANOLIN TOPICAL OINTMENT 56GM TUBE. TP SCH (21:17)
[2018-06-01 23:55] VITALS: BP 120/47
[2018-06-02] MEDS: IV RINGERS,LACTATED 1000ML 1,000 ML IV SCH ×2 (00:40→13:17)
[2018-06-02] MEDS: oxyCODONE/APAP 5/325 1 TAB TABLET PO PRN ×4 (01:47→19:11)
--- NOTE | 2018-06-02 03:18 | NUR ---
Red port will not flush or give blood return, purple port flushes without complications and gives blood return. continue to monitor. Addendum: 06/02/18 at 0322 by ASHER VELIZ RN Amended: Links added.
[2018-06-02 03:46] VITALS: BP 117/50
[2018-06-02 04:36] LABS: BASO # 0.1 x10^3/uL (0.0-0.2); BASO % 1 % (0-3); EOS # 0.3 x10^3/uL (0.0-0.7); EOS % 3 % (0-3); HEMATOCRIT 26.3 % (39.0-53.0); HEMOGLOBIN 8.3 g/dL (13.0-17.5); LYMPH # 0.9 x10^3/uL (1.0-4.8); LYMPH % 9 % (24-48); MEAN CORPUSCULAR HEMOGLOBIN 26 pg (25-35); MEAN CORPUSCULAR HGB CONC 31 g/dL (31-37); MEAN CORPUSCULAR VOLUME 84 fL (79-100); MONO # 0.8 x10^3/uL (0.0-1.1); MONO % 8 % (0-9); NEUT # 8.1 x10^3uL (1.8-7.7); NEUT % 80 % (31-73); PLATELET COUNT 327 x10^3/uL (140-400); RED BLOOD COUNT 3.14 x10^6/uL (4.30-5.70); RED CELL DISTRIBUTION WIDTH 16.1 % (11.5-14.5); WHITE BLOOD COUNT 10.2 x10^3/uL (4.0-11.0)
[2018-06-02 04:44] LABS: PROTHROMBIN TIME PATIENT 32.9 SEC (11.7-14.0)
[2018-06-02 05:06] LABS: ALBUMIN 1.6 g/dL (3.4-5.0); ALBUMIN/GLOBULIN RATIO 0.3 (1.0-1.7); CALCIUM 8.2 mg/dL (8.5-10.1); CREATININE 1.3 mg/dL (0.7-1.3); GFR 53.7; POTASSIUM 4.3 mmol/L (3.5-5.1); TOTAL BILIRUBIN 0.5 mg/dL (0.2-1.0); TOTAL PROTEIN 6.4 g/dL (6.4-8.2)
[2018-06-02 07:00] VITALS: BP 110/47
[2018-06-02] MEDS: INSULIN LISPRO 300 UNITS/3 ML INSULN.PEN. SQ SCH ×4 (08:00→16:57)
[2018-06-02] MEDS: IPRATRPIUM/ALBUTEROL 0.5/2.5MG 3 ML NEBU. NEB SCH ×4 (08:01→19:45)
[2018-06-02] MEDS: hydrALAZINE 10 MG TABLET PO SCH ×3 (09:00→21:39)
[2018-06-02] MEDS: levETIRAcetam 250 MG TABLET PO SCH ×2 (09:16→21:40)
[2018-06-02] MEDS: FUROSEMIDE 40 MG TABLET. PO SCH (09:17)
[2018-06-02] MEDS: GABAPENTIN 300 MG CAPSULE. PO SCH (09:17)
[2018-06-02] MEDS: POTASSIUM CHLORIDE 20 MEQ TABLET.ER. PO SCH (09:17)
[2018-06-02] MEDS: ZONISAMIDE 100 MG CAPSULE. PO SCH (09:17)
[2018-06-02] MEDS: MULTIVITAMIN with MINERAL TABLET. PO SCH (09:17)
[2018-06-02] MEDS: ASCORBIC ACID 500 MG TABLET PO SCH (09:17)
[2018-06-02] MEDS: ASPIRIN ENTERIC COATED 81 MG TABLET.DR. PO SCH (09:17)
[2018-06-02] MEDS: METOPROLOL TART IMMED RELEASE 50 MG TABLET. PO SCH ×2 (09:18→21:00)
[2018-06-02] MEDS: metFORMIN 500 MG TABLET PO SCH ×2 (09:18→17:00)
[2018-06-02] MEDS: POLYETHYLENE GLYCOL 3350 17 GM PACKET. PO SCH (09:20)
[2018-06-02] MEDS: VITS A & D/LANOLIN TOPICAL OINTMENT 56GM TUBE. TP SCH ×2 (09:29→21:41)
--- NOTE | 2018-06-02 10:55 | PDOC ---
PROGRESS NOTES Chief Complaint Chief Complaint Severe sepsis cellulitis w/ gangrenous toes MRSA bacteremia (4 of 4 bottles) with sepsis, POA source //foot infection post Right below-knee amputation -CRYSTAL done no vegetations 05/21; BC from 05/20 & 05/21 neg A. 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 A neoplastic etiology cannot be excluded and CT follow-up may be prudent. Small bilateral pleural effusions with mild bibasilar atelectasis. Distended gallbladder containing material of medium density. This may represent sludge Cont Dapto (susceptible 05/18)- 6 weeks = Jul 02 2018 History of Present Illness History of Present Illness plan LTAC or snu, palliative care following, change to hospice at home not improving much cont current other, still will need 4 weeks of IV abx for treatment plan ID following Christine would like to continue with aggressive tx. including treatment of infections. PT/OT Vitals Vitals Vital Signs Date Time Temp Pulse Resp B/P (MAP) Pulse Ox O2 Delivery O2 Flow Rate FiO2 06/02/18 09:18 84 110/47 06/02/18 09:16 Room Air 06/02/18 08:02 97 06/02/18 07:00 97.4 16 97.4 06/01/18 18:30 2.0 Physical Exam Physical Exam GEN: Propped up in bed, alert, Looks better. Smiling HEENT: Pupils equally round, reactive. Normal conjunctivae. Oral cavity, pharynx pink, dry NECK: Supple. LUNGS: Clear anteriorly HEART: S1 and S2, soft murmur. Irregular. ABDOMEN: Obese, soft and Non tender with bowel sounds present. GENITOURINARY: Indwelling Crawley in place. 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 Left foot wound clean - no bone exposure SKIN: Warm without rash. No peripheral stigmata. Several tattoos. 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 right, chronic hyperpigmentation bilateral shins and foot) Labs LABS Laboratory Tests Test 06/01/18 12:16 06/01/18 17:24 06/02/18 04:10 06/02/18 09:18 Glucose (Fingerstick) 127 mg/dL (70-99) 144 mg/dL (70-99) 109 mg/dL (70-99) White Blood Count 10.2 x10^3/uL (4.0-11.0) Red Blood Count 3.14 x10^6/uL (4.30-5.70) Hemoglobin 8.3 g/dL (13.0-17.5) Hematocrit 26.3 % (39.0-53.0) Mean Corpuscular Volume 84 fL (79-100) Mean Corpuscular Hemoglobin 26 pg (25-35) Mean Corpuscular Hemoglobin Concent 31 g/dL (31-37) Red Cell Distribution Width 16.1 % (11.5-14.5) Platelet Count 327 x10^3/uL (140-400) Neutrophils (%) (Auto) 80 % (31-73) Lymphocytes (%) (Auto) 9 % (24-48) Monocytes (%) (Auto) 8 % (0-9) Eosinophils (%) (Auto) 3 % (0-3) Basophils (%) (Auto) 1 % (0-3) Neutrophils # (Auto) 8.1 x10^3uL (1.8-7.7) Lymphocytes # (Auto) 0.9 x10^3/uL (1.0-4.8) Monocytes # (Auto) 0.8 x10^3/uL (0.0-1.1) Eosinophils # (Auto) 0.3 x10^3/uL (0.0-0.7) Basophils # (Auto) 0.1 x10^3/uL (0.0-0.2) Prothrombin Time 32.9 SEC (11.7-14.0) Prothromb Time International Ratio 3.2 (0.8-1.1) Sodium Level 139 mmol/L (136-145) Potassium Level 4.3 mmol/L (3.5-5.1) Chloride Level 104 mmol/L (98-107) Carbon Dioxide Level 25 mmol/L (21-32) Anion Gap 10 (6-14) Blood Urea Nitrogen 13 mg/dL (8-26) Creatinine 1.3 mg/dL (0.7-1.3) Estimated GFR (Cockcroft-Gault) 53.7 BUN/Creatinine Ratio 10 (6-20) Glucose Level 106 mg/dL (70-99) Calcium Level 8.2 mg/dL (8.5-10.1) Total Bilirubin 0.5 mg/dL (0.2-1.0) Aspartate Amino Transf (AST/SGOT) 71 U/L (15-37) Alanine Aminotransferase (ALT/SGPT) 47 U/L (16-63) Alkaline Phosphatase 110 U/L (46-116) Total Protein 6.4 g/dL (6.4-8.2) Albumin 1.6 g/dL (3.4-5.0) Albumin/Globulin Ratio 0.3 (1.0-1.7) Assessment and Plan Assessmemt and Plan Problems Medical Problems: (1) Fever Status: Acute (2) Gangrene of toe Status: Acute (3) Leukocytosis Status: Acute (4) Severe sepsis Status: Acute Date: May 21, 2018 Pre-Op Diagnosis: Gangrene right foot Nonambulatory Open wound left ankle Post-Op Diagnosis: Same as above Procedure Performed: #1 Right below-knee amputation #2 debridement left ankle wound less than 20 cm skin simultaneous tissue-- incisional Surgeon: Jermaine Ge M.D. Anesthesia Type: Gen. Blood Loss: 150 mL Specimans Obtained: Right leg below the knee Findings: Healthy muscle and tissue at the amputation site with good skin bleeding Left ankle wound sharply debrided with good bleeding at all skin edges wound edges Complications: Comment Review of Relevant I have reviewed the following items navi (where applicable) has been applied. Labs Laboratory Tests Test 05/31/18 11:28 05/31/18 16:49 05/31/18 19:27 06/01/18 05:30 Glucose (Fingerstick) 89 mg/dL (70-99) 94 mg/dL (70-99) 97 mg/dL (70-99) Prothrombin Time 29.2 SEC (11.7-14.0) Prothromb Time International Ratio 2.8 (0.8-1.1) Test 06/01/18 07:44 06/01/18 12:16 06/01/18 17:24 06/02/18 04:10 Glucose (Fingerstick) 124 mg/dL (70-99) 127 mg/dL (70-99) 144 mg/dL (70-99) White Blood Count 10.2 x10^3/uL (4.0-11.0) Red Blood Count 3.14 x10^6/uL (4.30-5.70) Hemoglobin 8.3 g/dL (13.0-17.5) Hematocrit 26.3 % (39.0-53.0) Mean Corpuscular Volume 84 fL (79-100) Mean Corpuscular Hemoglobin 26 pg (25-35) Mean Corpuscular Hemoglobin Concent 31 g/dL (31-37) Red Cell Distribution Width 16.1 % (11.5-14.5) Platelet Count 327 x10^3/uL (140-400) Neutrophils (%) (Auto) 80 % (31-73) Lymphocytes (%) (Auto) 9 % (24-48) Monocytes (%) (Auto) 8 % (0-9) Eosinophils (%) (Auto) 3 % (0-3) Basophils (%) (Auto) 1 % (0-3) Neutrophils # (Auto) 8.1 x10^3uL (1.8-7.7) Lymphocytes # (Auto) 0.9 x10^3/uL (1.0-4.8) Monocytes # (Auto) 0.8 x10^3/uL (0.0-1.1) Eosinophils # (Auto) 0.3 x10^3/uL (0.0-0.7) Basophils # (Auto) 0.1 x10^3/uL (0.0-0.2) Prothrombin Time 32.9 SEC (11.7-14.0) Prothromb Time International Ratio 3.2 (0.8-1.1) Sodium Level 139 mmol/L (136-145) Potassium Level 4.3 mmol/L (3.5-5.1) Chloride Level 104 mmol/L (98-107) Carbon Dioxide Level 25 mmol/L (21-32) Anion Gap 10 (6-14) Blood Urea Nitrogen 13 mg/dL (8-26) Creatinine 1.3 mg/dL (0.7-1.3) Estimated GFR (Cockcroft-Gault) 53.7 BUN/Creatinine Ratio 10 (6-20) Glucose Level 106 mg/dL (70-99) Calcium Level 8.2 mg/dL (8.5-10.1) Total Bilirubin 0.5 mg/dL (0.2-1.0) Aspartate Amino Transf (AST/SGOT) 71 U/L (15-37) Alanine Aminotransferase (ALT/SGPT) 47 U/L (16-63) Alkaline Phosphatase 110 U/L (46-116) Total Protein 6.4 g/dL (6.4-8.2) Albumin 1.6 g/dL (3.4-5.0) Albumin/Globulin Ratio 0.3 (1.0-1.7) Test 06/02/18 09:18 Glucose (Fingerstick) 109 mg/dL (70-99) Laboratory Tests Test 06/01/18 12:16 06/01/18 17:24 06/02/18 04:10 06/02/18 09:18 Glucose (Fingerstick) 127 mg/dL (70-99) 144 mg/dL (70-99) 109 mg/dL (70-99) White Blood Count 10.2 x10^3/uL (4.0-11.0) Red Blood Count 3.14 x10^6/uL (4.30-5.70) Hemoglobin 8.3 g/dL (13.0-17.5) Hematocrit 26.3 % (39.0-53.0) Mean Corpuscular Volume 84 fL (79-100) Mean Corpuscular Hemoglobin 26 pg (25-35) Mean Corpuscular Hemoglobin Concent 31 g/dL (31-37) Red Cell Distribution Width 16.1 % (11.5-14.5) Platelet Count 327 x10^3/uL (140-400) Neutrophils (%) (Auto) 80 % (31-73) Lymphocytes (%) (Auto) 9 % (24-48) Monocytes (%) (Auto) 8 % (0-9) Eosinophils (%) (Auto) 3 % (0-3) Basophils (%) (Auto) 1 % (0-3) Neutrophils # (Auto) 8.1 x10^3uL (1.8-7.7) Lymphocytes # (Auto) 0.9 x10^3/uL (1.0-4.8) Monocytes # (Auto) 0.8 x10^3/uL (0.0-1.1) Eosinophils # (Auto) 0.3 x10^3/uL (0.0-0.7) Basophils # (Auto) 0.1 x10^3/uL (0.0-0.2) Prothrombin Time 32.9 SEC (11.7-14.0) Prothromb Time International Ratio 3.2 (0.8-1.1) Sodium Level 139 mmol/L (136-145) Potassium Level 4.3 mmol/L (3.5-5.1) Chloride Level 104 mmol/L (98-107) Carbon Dioxide Level 25 mmol/L (21-32) Anion Gap 10 (6-14) Blood Urea Nitrogen 13 mg/dL (8-26) Creatinine 1.3 mg/dL (0.7-1.3) Estimated GFR (Cockcroft-Gault) 53.7 BUN/Creatinine Ratio 10 (6-20) Glucose Level 106 mg/dL (70-99) Calcium Level 8.2 mg/dL (8.5-10.1) Total Bilirubin 0.5 mg/dL (0.2-1.0) Aspartate Amino Transf (AST/SGOT) 71 U/L (15-37) Alanine Aminotransferase (ALT/SGPT) 47 U/L (16-63) Alkaline Phosphatase 110 U/L (46-116) Total Protein 6.4 g/dL (6.4-8.2) Albumin 1.6 g/dL (3.4-5.0) Albumin/Globulin Ratio 0.3 (1.0-1.7) Microbiology 05/27/18 Blood Culture - Final, Complete NO GROWTH AFTER 5 DAYS 05/19/18 Urine Culture - Final, Complete 05/19/18 Urine Culture Result 1 (FELICITA) - Final, Complete 05/19/18 Anaerobic/Aerobic Culture - Final, Complete 05/19/18 Anaerobic Culture Result 1 (FELICITA) - Final, Complete 05/19/18 Aerobic Culture - Final, Complete 05/19/18 Aerobic Culture Result 1 (FELICITA) - Final, Complete 05/19/18 Aerobic Culture Result 2 (FELICITA) - Final, Complete 05/19/18 Antimicrobic Susceptibility - Final, Complete 05/19/18 Gram Stain - Final, Complete 05/19/18 Gram Stain Result 1 (FELICITA) - Final, Complete 05/19/18 Gram Stain Result 2 (FELICITA) - Final, Complete Medications Current Medications Sodium Chloride 1,000 ml @ 2,190 mls/hr Q28M IV Last administered on 05/18/18at 14:36; Start 05/18/18 at 12:52; Stop 05/18/18 at 13:52; Status DC Piperacillin Sod/ Tazobactam Sod 4.5 gm/Sodium Chloride 100 ml @ 200 mls/hr 1X ONCE IV Last administered on 05/18/18at 14:34; Start 05/18/18 at 13:00; Stop 05/18/18 at 13:29; Status DC Vancomycin HCl (Vanco Per Pharmacy) 1 each 1X ONCE MC Last administered on 05/18/18at 13:00; Start 05/18/18 at 13:00; Stop 05/18/18 at 13:11; Status DC Vancomycin HCl 2 gm/Sodium Chloride 500 ml @ 250 mls/hr 1X ONCE IV Last administered on 05/18/18at 15:28; Start 05/18/18 at 13:15; Stop 05/18/18 at 15 :14; Status DC Ondansetron HCl (Zofran) 4 mg PRN Q8HRS PRN IV NAUSEA/VOMITING; Start 05/18/18 at 14:45; Stop 05/18/18 at 15:28; Status DC Fentanyl Citrate (Fentanyl 2ml Vial) 50 mcg PRN Q1HR PRN IV PAIN; Start 05/18/18 at 14:45; Stop 05/19/18 at 11:50; Status DC Sodium Chloride 1,000 ml @ 80 mls/hr [id number] IV ; Start 05/18/18 at 14:43; Stop 05/18/18 at 18:42; Status DC Acetaminophen (Tylenol) 650 mg 1X ONCE PO Last administered on 05/18/18at 15:29; Start 05/18/18 at 15:30; Stop 05/18/18 at 15:31; Status DC Ondansetron HCl (Zofran) 4 mg PRN Q6HRS PRN IV NAUSEA/VOMITING Last administered on 05/24/18at 06:14; Start 05/18/18 at 15:30 Diltiazem HCl (Cardizem Iv Push) 10 mg 1X ONCE IVP ; Start 05/18/18 at 15:30; Stop 05/18/18 at 15:31; Status DC Acetaminophen (Tylenol) 500 mg PRN Q6HRS PRN PO MILD PAIN / TEMP; Start 05/18/18 at 15:30; Stop 05/18/18 at 16:14; Status DC Acetaminophen/ Codeine Phosphate (Tylenol #3) 1 tab PRN Q6HRS PRN PO MODERATE PAIN Last administered on 05/26/18at 21:56; Start 05/18/18 at 15:30 Morphine Sulfate (Morphine Sulfate) 2 mg PRN Q2HR PRN IV PAIN Last administered on 05/30/18at 11:11; Start 05/18/18 at 15:30 Oxycodone/ Acetaminophen (Percocet 5/325) 1 tab PRN Q4HRS PRN PO SEVERE PAIN Last administered on 06/02/18 05:52; Start 05/18/18 at 15:30 Albuterol Sulfate (Ventolin Hfa) 2 puff PRN Q6HRS PRN IH SHORTNESS OF BREATH; Start 05/18/18 at 15:30; Status UNV Digoxin (Lanoxin) 125 mcg DAILY PO ; Start 05/19/18 at 09:00; Stop 05/19/18 at 09:00; Status DC Furosemide (Lasix) 40 mg DAILY PO Last administered on 06/02/18 09:17; Start 05/19/18 at 09:00 Gabapentin (Neurontin) 300 mg DAILY PO Last administered on 06/02/18 09:17; Start 05/19/18 at 09:00 Lisinopril (Prinivil) 20 mg DAILY PO Last administered on 05/19/18at 10:14; Start 05/19/18 at 09:00; Stop 05/24/18 at 15:20; Status DC Metoprolol Tartrate (Lopressor) 50 mg BID PO Last administered on 4/27/19at 09:18; Start 05/18/18 at 21:00 Oxycodone/ Acetaminophen (Percocet 10/325) 1 tab PRN Q6HRS PRN PO SEVERE PAIN (2ND Choice) Last administered on 06/01/18at 10:46; Start 05/18/18 at 15:30 Oxycodone/ Acetaminophen (Percocet 5/325) 1 tab PRN Q4HRS PRN PO PAIN; Start 05/18/18 at 15:30; Status UNV Acetaminophen (Tylenol) 500 mg PRN Q6HRS PRN PO MILD PAIN / TEMP Last administered on 05/27/18at 23:35; Start 05/18/18 at 16:15 Atorvastatin Calcium (Lipitor) 80 mg QHS PO Last administered on 06/01/18 21:16; Start 05/18/18 at 21:00 Hydralazine HCl (Apresoline) 10 mg TID PO Last administered on 06/01/18 21:16; Start 05/18/18 at 16:00 Insulin Human Lispro (HumaLOG) 10 units DAILYWBKFT SQ Last administered on 05/23/18at 08:58; Start 05/18/18 at 17:00; Stop 05/23/18 at 14:25; Status DC Levetiracetam (Keppra) 1,250 mg BID PO Last administered on 06/02/18 09:16; Start 05/18/18 at 21:00 Metformin HCl (Glucophage) 1,000 mg BIDWMEALS PO Last administered on 06/02/18 09:18; Start 05/18/18 at 17:00 Multivitamins (Thera M Plus) 1 tab DAILY PO Last administered on 06/02/18 09:17; Start 05/19/18 at 09:00 Potassium Chloride (Klor-Con) 20 meq DAILYWBKFT PO Last administered on 06/02/18 09:17; Start 05/19/18 at 08:00 Risperidone (RisperDAL) 1 mg QHS PO Last administered on 06/01/18 21:16; Start 05/18/18 at 21:00 Non-Formulary Medication (Rosuvastatin Calcium (Crestor)) 40 mg DAILY PO ; Start 05/19/18 at 09:00; Status UNV Zonisamide (Zonegran) 400 mg DAILY PO Last administered on 06/02/18 09:17; Start 05/19/18 at 09:00 Albuterol/ Ipratropium (Duoneb) 3 ml Q4HRS W/A NEB Last administered on 06/02/18 08:01; Start 05/18/18 at 18:00 Insulin Human Lispro (HumaLOG) 0-9 UNITS TIDWMEALS SQ Last administered on 05/26/18at 18:04; Start 05/18/18 at 17:00 Dextrose (Dextrose 50%-Water Syringe) 12.5 gm PRN Q15MIN PRN IV SEE COMMENTS Last administered on 05/25/18 06:04; Start 05/18/18 at 15:30 Albuterol Sulfate (Ventolin Neb Soln) 2.5 mg PRN Q6HRS PRN NEB SHORTNESS OF BREATH Last administered on 05/26/18at 08:35; Start 05/18/18 at 15:45 Piperacillin Sod/ Tazobactam Sod 3.375 gm/Sodium Chloride 50 ml @ 100 mls/hr Q6HRS IV Last administered on 05/24/18at 05:33; Start 05/18/18 at 18:00; Stop 05/24/18 at 08:09; Status DC Potassium Chloride (Klor-Con) 40 meq 1X ONCE PO Last administered on 05/19/18at 10:14; Start 05/19/18 at 08:30; Stop 05/19/18 at 08:31; Status DC Heparin Sodium (Porcine) (Heparin Sodium) 5,000 unit Q8HRS SQ ; Start 05/19/18 at 14:00; Stop 05/19/18 at 14:00; Status DC Furosemide (Lasix) 40 mg 1X ONCE IVP Last administered on 05/19/18at 10:12; Start 05/19/18 at 08:45; Stop 05/19/18 at 08:46; Status DC Phytonadione (Vitamin K Ampule) 10 mg 1X ONCE SQ Last administered on 05/19/18at 10:16; Start 05/19/18 at 10:00; Stop 05/19/18 at 10:01; Status DC Vancomycin HCl (Vanco Per Pharmacy) 1 each PRN DAILY PRN MC SEE COMMENTS Last administered on 05/19/18at 10:32; Start 05/19/18 at 10:00; Stop 05/20/18 at 10:42; Status DC Phytonadione (Vitamin K Ampule) 10 mg 1X ONCE SQ ; Start 05/19/18 at 10:15; Stop 05/19/18 at 10:16; Status UNV Vancomycin HCl 1.75 gm/Sodium Chloride 500 ml @ 250 mls/hr Q24H IV Last administered on 05/19/18at 16:59; Start 05/19/18 at 16:00; Stop 05/20/18 at 10:42; Status DC Vancomycin HCl (Vancomycin Trough Level) 1 each 1X ONCE MC ; Start 05/20/18 at 16:30; Stop 05/20/18 at 16:30; Status DC Acetaminophen (Tylenol Supp) 650 mg PRN Q6HRS PRN MD MILD PAIN / TEMP Last administered on 05/23/18at 23:33; Start 05/20/18 at 01:15 Sodium Chloride 500 ml @ 333 mls/hr 1X ONCE IV Last administered on 05/20/18at 01:14; Start 05/20/18 at 01:15; Stop 05/20/18 at 02:45; Status DC Phytonadione 5 mg/ Dextrose 50.5 ml @ 101 mls/hr 1X ONCE IV Last administered on 05/20/18at 10:08; Start 05/20/18 at 10:30; Stop 05/20/18 at 10:59; Status DC Daptomycin 590 mg/ Sodium Chloride 50 ml @ 100 mls/hr Q24H IV Last administered on 06/01/18at 12:15; Start 05/20/18 at 12:00 Ondansetron HCl (Zofran) 4 mg PRN Q6HRS PRN IV NAUSEA/VOMITING; Start 05/21/18 at 09:45; Stop 05/22/18 at 09:44; Status DC Fentanyl Citrate (Fentanyl 2ml Vial) 25 mcg PRN Q5MIN PRN IV MILD PAIN; Start 05/21/18 at 09:45; Stop 05/22/18 at 09:44; Status DC Fentanyl Citrate (Fentanyl 2ml Vial) 50 mcg PRN Q5MIN PRN IV MODERATE TO SEVERE PAIN; Start 05/21/18 at 09:45; Stop 05/22/18 at 09:44; Status DC Morphine Sulfate (Morphine Sulfate) 1 mg PRN Q10MIN PRN IV SEVERE PAIN; Start 05/21/18 at 09:45; Stop 05/22/18 at 09:44; Status DC Ringer's Solution 1,000 ml @ 30 mls/hr Q24H IV ; Start 05/21/18 at 09:39; Stop 05/22/18 at 00:37; Status DC Lidocaine HCl (Xylocaine-Mpf 1% 2ml Vial) 2 ml 1X PRN PRN ID IV START; Start 05/21/18 at 09:45; Stop 05/22/18 at 09:44; Status DC Hydromorphone HCl (Dilaudid) 0.5 mg PRN Q10MIN PRN IV SEV PAIN, Second choice; Start 05/21/18 at 09:45; Stop 05/22/18 at 09:44; Status DC Prochlorperazine Edisylate (Compazine) 5 mg PACU PRN PRN IV NAUSEA, MRX1; Start 05/21/18 at 09:45; Stop 05/22/18 at 09:44; Status DC Lidocaine HCl (Glydo (Lidocaine) Jelly) 1 vianney 1X ONCE MM ; Start 05/21/18 at 12:30; Stop 05/21/18 at 12:31; Status DC Propofol 20 ml @ As Directed STK-MED ONCE IV ; Start 05/21/18 at 12:27; Stop 05/21/18 at 12:28; Status DC Dexamethasone Sodium Phosphate (Decadron) 20 mg STK-MED ONCE .ROUTE ; Start 05/21/18 at 12:27; Stop 05/21/18 at 12:28; Status DC Famotidine (Pepcid Vial) 20 mg STK-MED ONCE .ROUTE ; Start 05/21/18 at 12:27; Stop 05/21/18 at 12:28; Status DC Lidocaine HCl (Lidocaine Pf 2% Vial) 5 ml STK-MED ONCE .ROUTE ; Start 05/21/18 at 12:27; Stop 05/21/18 at 12:28; Status DC Ondansetron HCl (Zofran) 4 mg STK-MED ONCE .ROUTE ; Start 05/21/18 at 12:27; Stop 05/21/18 at 12:28; Status DC Fentanyl Citrate (Fentanyl 2ml Vial) 100 mcg STK-MED ONCE .ROUTE ; Start 05/21/18 at 12:27; Stop 05/21/18 at 12:28; Status DC Bacitracin 17542 unit/Sodium Chloride 500 ml @ 500 mls/hr 1X ONCE IRR ; Start 05/21/18 at 12:40; Stop 05/21/18 at 13:39; Status DC Cefazolin Sodium 1 gm/Sodium Chloride 500 ml @ 500 mls/hr 1X ONCE IRR ; Start 05/21/18 at 12:40; Stop 05/21/18 at 13:39; Status DC Lidocaine HCl 20 ml STK-MED ONCE .ROUTE ; Start 05/21/18 at 11:42; Stop 05/21/18 at 12:42; Status DC Esmolol HCl (Brevibloc) 100 mg STK-MED ONCE IVP ; Start 05/21/18 at 13:01; Stop 05/21/18 at 13:02; Status DC Esmolol HCl (Brevibloc) 100 mg STK-MED ONCE IVP ; Start 05/21/18 at 14:22; Stop 05/21/18 at 14:23; Status DC Neomycin/ Polymyxin/ Bacitracin (Triple Antibiotic Ointment) 1 pkt STK-MED ONCE TP Last administered on 05/21/18at 14:41; Start 05/21/18 at 13:38; Stop 05/21/18 at 14:38; Status DC Sevoflurane (Ultane) 90 ml STK-MED ONCE IH ; Start 05/21/18 at 14:40; Stop 05/21/18 at 14:41; Status DC Naloxone HCl (Narcan) 0.4 mg PRN Q2MIN PRN IV SEE INSTRUCTIONS; Start 05/21/18 at 15:00 Sodium Chloride 1,000 ml @ 25 mls/hr Q24H IV ; Start 05/21/18 at 14:57; Stop 05/24/18 at 07:00; Status DC Morphine Sulfate 30 ml @ 0 mls/hr CONT PRN PRN IV PER PROTOCOL; Start 05/21/18 at 15:00 Labetalol HCl (Normodyne Iv Push) 20 mg PRN Q2HR PRN IVP HYPERTENSION, SEE COMMENTS Last administered on 05/24/18at 00:15; Start 05/21/18 at 15:30 Labetalol HCl (Normodyne Iv Push) 5 mg 1X PACU PRN IVP tachycardia and HTN Last administered on 05/21/18at 15:30; Start 05/21/18 at 15:30; Stop 05/22/18 at 09:09; Status DC Insulin Glargine (Lantus) 3 units 1X ONCE SQ Last administered on 05/21/18at 22:00; Start 05/21/18 at 22:00; Stop 05/22/18 at 01:31; Status DC Aspirin (Ecotrin) 81 mg DAILYWBKFT PO Last administered on 06/02/18at 09:17; Start 05/23/18 at 08:00 Digoxin (Lanoxin) 250 mcg 1X ONCE IV Last administered on 05/22/18at 12:28; Start 05/22/18 at 12:30; Stop 05/22/18 at 12:31; Status DC Warfarin Sodium (Coumadin) 6 mg DAILY16 PO ; Start 05/22/18 at 16:00; Stop 05/22/18 at 16:00; Status DC Warfarin Sodium (Coumadin) 2.5 mg 3X/WEEK PO ; Start 05/23/18 at 09:00; Status UNV Warfarin Sodium (Coumadin Per Physician) 1 each PRN DAILY PRN MC SEE COMMENTS; Start 05/22/18 at 14:45; Stop 05/22/18 at 14:57; Status DC Warfarin Sodium (Coumadin Per Pharmacy) 1 each PRN DAILY PRN MC SEE COMMENTS Last administered on 06/01/18at 13:24; Start 05/22/18 at 15:00 Warfarin Sodium (Coumadin) 4 mg 1X WARF ONCE PO Last administered on 05/22/18at 16:19; Start 05/22/18 at 16:00; Stop 05/22/18 at 16:01; Status DC Warfarin Sodium (Coumadin) 4 mg 1X WARF ONCE PO ; Start 05/23/18 at 16:00; Stop 05/23/18 at 16:01; Status DC Ringer's Solution 1,000 ml @ 75 mls/hr [id number] IV ; Start 05/23/18 at 13:45; Status Cancel Ringer's Solution 1,000 ml @ 75 mls/hr [id number] IV Last administered on 05/31/18at 11:38; Start 05/23/18 at 14:00 Insulin Human Lispro (HumaLOG) 7 units DAILYWBKFT SQ ; Start 05/24/18 at 08:00; Stop 05/25/18 at 12:44; Status DC Dextrose (Dextrose 50%-Water Syringe) 25 gm 1X ONCE IV Last administered on 05/23/18at 13:15; Start 05/23/18 at 17:45; Stop 05/23/18 at 17:46; Status DC Meropenem 500 mg/ Sodium Chloride 50 ml @ 100 mls/hr Q6HRS IV Last administered on 06/01/18at 05:32; Start 05/24/18 at 12:00; Stop 06/01/18 at 09:46; Status DC Warfarin Sodium (Coumadin) 6 mg 1X WARF ONCE PO Last administered on 05/24/18at 15:33; Start 05/24/18 at 16:00; Stop 05/24/18 at 16:01; Status DC Insulin Human Lispro (HumaLOG) 3 units DAILYWBKFT SQ Last administered on 06/02/18at 09:22; Start 05/26/18 at 08:00 Warfarin Sodium (Coumadin) 6 mg 1X WARF ONCE PO Last administered on 05/25/18at 16:04; Start 05/25/18 at 16:00; Stop 05/25/18 at 16:01; Status DC Polyethylene Glycol (miraLAX PACKET) 17 gm DAILY PO Last administered on 06/02/18at 09:20; Start 05/26/18 at 14:00 Warfarin Sodium (Coumadin) 7.5 mg 1X WARF ONCE PO Last administered on 05/27/18at 17:56; Start 05/27/18 at 16:00; Stop 05/27/18 at 16:01; Status DC Micafungin Sodium 100 mg/Dextrose 100 ml @ 100 mls/hr Q24H IV Last administered on 06/01/18at 12:14; Start 05/27/18 at 12:00 Warfarin Sodium (Coumadin) 6 mg 1X WARF ONCE PO Last administered on 05/28/18at 17:32; Start 05/28/18 at 16:00; Stop 05/28/18 at 16:01; Status DC Ascorbic Acid (Vitamin C) 500 mg DAILY PO Last administered on 06/02/18at 09:17; Start 05/28/18 at 16:00 Warfarin Sodium (Coumadin) 6 mg 1X WARF ONCE PO Last administered on 05/29/18at 17:04; Start 05/29/18 at 16:00; Stop 05/29/18 at 16:01; Status DC Warfarin Sodium (Coumadin) 6 mg 1X WARF ONCE PO Last administered on 05/30/18at 15:29; Start 05/30/18 at 16:00; Stop 05/30/18 at 16:01; Status DC Lidocaine/Sodium Bicarbonate (Buffered Lidocaine 1%) 3 ml STK-MED ONCE .ROUTE ; Start 05/30/18 at 13:48; Stop 05/30/18 at 13:49; Status DC Warfarin Sodium (Coumadin) 6 mg 1X WARF ONCE PO Last administered on 05/31/18at 17:23; Start 05/31/18 at 16:00; Stop 05/31/18 at 16:01; Status DC Warfarin Sodium (Coumadin) 3 mg 1X WARF ONCE PO Last administered on 06/01/18at 16:14; Start 06/01/18 at 16:00; Stop 06/01/18 at 16:01; Status DC Vitamin A/Vitamin D (Vitamin A & D Ointment) 1 vianney BID TP Last administered on 06/02/18at 09:29; Start 06/01/18 at 21:00 Active Scripts Active Digoxin 125 Mcg Tablet 125 Mcg PO DAILY Furosemide 40 Mg Tablet 40 Mg PO DAILY Metoprolol Tartrate 50 Mg Tablet 50 Mg PO BID [Warfarin Sodium] 1 EACH Each 1 Each MC PRN DAILY PRN Lisinopril 20 Mg Tablet 20 Mg PO DAILY Duoneb 0.5-3(2.5) Mg/3 Ml (Albuterol/Ipratropium) 3 Ml Ampul.neb 3 Ml NEB Q4HRS W/A 30 Days Hydralazine Hcl 10 Mg Tablet 10 Mg PO TID Reported Zonisamide 100 Mg Capsule 400 Mg PO DAILY Percocet 5-325 Mg Tablet (Oxycodone/Acetaminophen) 1 Each Tablet 1 Tab PO PRN Q4HRS PRN Multivitamins (Multivitamin) 1 Each Tablet 1 Tab PO DAILY Levetiracetam 250 Mg Tablet 1,250 Mg PO BID Novolin N (Nph, Human Insulin Isophane) 100 Unit/1 Ml Vial Unknown Dose SQ Atorvastatin Calcium 80 Mg Tablet 1 Tab PO DAILY Acetaminophen 500 Mg Tablet 1 Tab PO PRN Q6HRS PRN Albuterol Sulfate Hfa Inhaler (Albuterol Sulfate) 8.5 Gm Hfa.aer.ad 2 Puff IH PRN Q6HRS PRN Aspirin Ec (Aspirin) 325 Mg Tablet.dr 81 Mg PO DAILY Crestor (Rosuvastatin Calcium) 40 Mg Tablet 40 Mg PO DAILY Warfarin Sodium 5 Mg Tablet 6 Mg PO DAILY Warfarin Sodium 2.5 Mg Tablet 2.5 Mg PO 3X/WEEK monday,monday, Gabapentin (Gabapentin) 300 Mg Capsule 300 Mg PO DAILY Risperidone 1 Mg Tablet 1 Mg PO HS Novolog (Insulin Aspart) 100 Unit/1 Ml Vial 10 Unit SQ DAILYAC Oxycodone-Acetaminophen 10-325 (Oxycodone Hcl/Acetaminophen) 1 Each Tablet 1 Each PO PRN Q6HRS Potassium 99 Mg Tablet 20 Meq PO DAILY Prednisone (Prednisone) 10 Mg Tablet 10 Mg PO DAILY Metformin Hcl 500 Mg Tablet 1,000 Mg PO BIDBFRMEAL Vitals/I & O Vital Sign - Last 24 Hours 06/01/18 06/01/18 06/01/18 06/01/18 11:21 11:22 13:24 15:00 Temp 98.0 97.7 98.0 97.7 Pulse 73 73 62 Resp 16 16 B/P (MAP) 118/52 (74) 118/52 118/53 (74) Pulse Ox 98 98 O2 Delivery Nasal Cannula Nasal Cannula Nasal Cannula O2 Flow Rate 2.0 2.0 2.0 06/01/18 06/01/18 06/01/18 06/01/18 15:29 18:30 19:59 21:15 Temp 98.7 98.7 Pulse 65 Resp 19 B/P (MAP) 125/45 (71) Pulse Ox 96 O2 Delivery Nasal Cannula Nasal Cannula Room Air Room Air O2 Flow Rate 2.0 2.0 06/01/18 06/01/18 06/01/18 06/01/18 21:16 21:16 21:42 23:55 Temp 99.9 99.9 Pulse 65 65 65 Resp 18 B/P (MAP) 125/45 125/45 120/47 (71) Pulse Ox 92 94 O2 Delivery Room Air Room Air 06/02/18 06/02/18 06/02/18 06/02/18 01:47 02:50 03:46 05:52 Temp 98.6 98.6 Pulse 66 Resp 20 20 19 20 B/P (MAP) 117/50 (72) Pulse Ox 94 O2 Delivery Room Air Room Air Room Air 06/02/18 06/02/18 06/02/18 06/02/18 07:00 08:00 08:02 09:00 Temp 97.4 97.4 Pulse 84 84 Resp 16 B/P (MAP) 110/47 (68) 110/47 Pulse Ox 95 97 O2 Delivery Room Air Room Air Room Air 06/02/18 06/02/18 09:16 09:18 Pulse 84 B/P (MAP) 110/47 O2 Delivery Room Air Intake and Output 06/01/18 06/01/18 06/02/18 14:59 22:59 06:59 Intake Total 360 ml 100 ml Output Total 1150 ml 150 ml 600 ml Balance -790 ml -50 ml -600 ml Nutrition Consultation Dietary Evaluation: Recommendations by RD: Increase Calorie Intake, Protein supplementation Comments: Continue diet per [employer] with ADA/cardiac diet restrictions per pmhx, can liberalize as needed to provide foods that pt likes continue Glucerna TID (chocolate) Continue MVI and Vit C (500 mg BID) Expected Outcomes/Goals: PO intake to meet >75% est needs - not met, goal ongoing Malnutrition Findings: Food and Nutrition Intake (Mod: <75% est energy req 7days Weight Status: Obese KEV HATCH MD Jun 02, 2018 10:54
[2018-06-02 11:00] VITALS: BP 116/57
[2018-06-02] MEDS: MICAFUNGIN 100 MG in IV DEXTROSE 5% 100ML 100 ML IV SCH (11:37)
[2018-06-02] MEDS ORDERED: ALTEPLASE 1MG SYRINGE. INT CAT ONE (12:15)
--- NOTE | 2018-06-02 12:51 | NUR ---
This nurse spoke with MD about pt. fluids. Pt. has been off LR for 2 days r/t change in pt. condition. told this nurse to restart fluids r/t low pt. I&Os and poor intake. Will continue to monitor.
[2018-06-02] MEDS: PHENYLEPH/MINERAL OIL/PETROLAT RECTAL OINTMENT 28GM TUBE. RC SCH ×2 (13:18→21:40)
--- NOTE | 2018-06-02 13:52 | PDOC ---
Infectious Disease Note Subjective Subjective Feeling ok, some leg pain, "jumps around" No F/CN/V/SOA ROS ROS per HPI Vital Sign Vital Signs Vital Signs Date Time Temp Pulse Resp B/P (MAP) Pulse Ox O2 Delivery O2 Flow Rate FiO2 06/02/18 13:33 64 111/92 06/02/18 13:16 Room Air 06/02/18 12:46 96 06/02/18 11:00 97.7 18 97.7 06/01/18 18:30 2.0 Physical Exam PHYSICAL EXAM GEN: Propped up in bed, alert, NAD HEENT: Normal conjunctivae. Oral cavity, pharynx pink, dry NECK: Supple. LUNGS: Clear anteriorly HEART: S1 and S2, soft murmur. Irregular. ABDOMEN: Obese, soft and Non tender with bowel sounds present. GENITOURINARY: Indwelling Crawley in place. EXTREMITIES: Right BKA incision well approx w/ matti, clean Left foot wound, no bone exposure or area redness SKIN: Warm without rash. No peripheral stigmata. Several tattoos. NEUROLOGIC: Alert, coop PICC RUE - clean Labs Lab Laboratory Tests Test 06/01/18 17:24 06/02/18 04:10 06/02/18 09:18 06/02/18 11:11 Glucose (Fingerstick) 144 mg/dL (70-99) 109 mg/dL (70-99) 95 mg/dL (70-99) White Blood Count 10.2 x10^3/uL (4.0-11.0) Red Blood Count 3.14 x10^6/uL (4.30-5.70) Hemoglobin 8.3 g/dL (13.0-17.5) Hematocrit 26.3 % (39.0-53.0) Mean Corpuscular Volume 84 fL (79-100) Mean Corpuscular Hemoglobin 26 pg (25-35) Mean Corpuscular Hemoglobin Concent 31 g/dL (31-37) Red Cell Distribution Width 16.1 % (11.5-14.5) Platelet Count 327 x10^3/uL (140-400) Neutrophils (%) (Auto) 80 % (31-73) Lymphocytes (%) (Auto) 9 % (24-48) Monocytes (%) (Auto) 8 % (0-9) Eosinophils (%) (Auto) 3 % (0-3) Basophils (%) (Auto) 1 % (0-3) Neutrophils # (Auto) 8.1 x10^3uL (1.8-7.7) Lymphocytes # (Auto) 0.9 x10^3/uL (1.0-4.8) Monocytes # (Auto) 0.8 x10^3/uL (0.0-1.1) Eosinophils # (Auto) 0.3 x10^3/uL (0.0-0.7) Basophils # (Auto) 0.1 x10^3/uL (0.0-0.2) Prothrombin Time 32.9 SEC (11.7-14.0) Prothromb Time International Ratio 3.2 (0.8-1.1) Sodium Level 139 mmol/L (136-145) Potassium Level 4.3 mmol/L (3.5-5.1) Chloride Level 104 mmol/L (98-107) Carbon Dioxide Level 25 mmol/L (21-32) Anion Gap 10 (6-14) Blood Urea Nitrogen 13 mg/dL (8-26) Creatinine 1.3 mg/dL (0.7-1.3) Estimated GFR (Cockcroft-Gault) 53.7 BUN/Creatinine Ratio 10 (6-20) Glucose Level 106 mg/dL (70-99) Calcium Level 8.2 mg/dL (8.5-10.1) Total Bilirubin 0.5 mg/dL (0.2-1.0) Aspartate Amino Transf (AST/SGOT) 71 U/L (15-37) Alanine Aminotransferase (ALT/SGPT) 47 U/L (16-63) Alkaline Phosphatase 110 U/L (46-116) Total Protein 6.4 g/dL (6.4-8.2) Albumin 1.6 g/dL (3.4-5.0) Albumin/Globulin Ratio 0.3 (1.0-1.7) Micro 05/24. BLOOD CULTURE Preliminary NO GROWTH AFTER 2 DAYS Objective Assessment Fevers better overall. repeat UA and BC from 05/24 neg so far Leukocytosis - better Constipation ? cholecystitis - non tender better MRSA bacteremia (4 of 4 bottles) with sepsis, POA source possible foot infection- Dapto sensitive 05/18 -CRYSTAL done no vegetations 05/21; BC from 05/20 & 05/21 neg Infected necrotic ulcer left ankle s/p I and D 05/21. MRSA and Enterobacter ( R Augmentin/cefuroxime) - no exposed bone. 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 Severe PAD s/p BLE stents and previous toe amputations Bioprosthetic aortic valve Renal insufficiency/JIMMY - better Encephalopathy - improved but still some confusion Coagulopathy, on chronic warfarin A- fib RVR Diabetes Type II h/o PSA ( R quinolones & I imipenem) h/o group B strep bacteremia, 2016 Plan Plan of Care Gen surg following Cont Dapto (susceptible 05/18)- 6 weeks = July 02 (last CPK 05/31 was 218) off Merrem (05/24) - wound is clean and no bone off Micafungin(05/27) after 7 days (06/02) Monitor labs CK/CMP/CBC with diff Q Monday while on Daptomycin Local wound care and offloading D/w Attending Co-Sign The patient was seen and interviewed as well as examined at the bedside. The chart was reviewed. The case was discussed. Agree with the plan of care. GIO GASPAR APRN Jun 02, 2018 13:52 DAYANA CATES MD Jun 02, 2018 14:32
[2018-06-02] MEDS: DAPTOmycin (GENERIC) IVPB 590 MG in IV NORMAL SALINE 50ML 50 ML IV SCH (14:22)
--- NOTE | 2018-06-02 14:24 | NUR ---
Pt. 1200 daptomycin administered late r/t pt. PICC line not flushing. Purple lumen drawing back blood and flushing well after cath stuart. 1200 Micafungin administered around 1300 and 1200 daptomycin administered around 1400. Will continue to monitor.
[2018-06-02 15:00] VITALS: BP 119/44
[2018-06-02 19:00] VITALS: BP 128/40
[2018-06-02] MEDS: risperiDONE 1 MG TABLET. PO SCH (21:38)
[2018-06-02] MEDS: ATORVASTATIN CALCIUM 40 MG TABLET. PO SCH (21:39)
[2018-06-02 23:00] VITALS: BP 124/64
[2018-06-03 03:00] VITALS: BP 121/85
[2018-06-03 03:40] LABS: PROTHROMBIN TIME PATIENT 35.4 SEC (11.7-14.0)
[2018-06-03 03:41] LABS: CALCIUM 8.2 mg/dL (8.5-10.1); CREATININE 1.1 mg/dL (0.7-1.3); GFR 65.1; POTASSIUM 3.6 mmol/L (3.5-5.1)
[2018-06-03 03:42] LABS: BASO # 0.1 x10^3/uL (0.0-0.2); BASO % 1 % (0-3); EOS # 0.3 x10^3/uL (0.0-0.7); EOS % 4 % (0-3); HEMATOCRIT 22.1 % (39.0-53.0); HEMOGLOBIN 7.1 g/dL (13.0-17.5); LYMPH # 0.7 x10^3/uL (1.0-4.8); LYMPH % 9 % (24-48); MEAN CORPUSCULAR HEMOGLOBIN 27 pg (25-35); MEAN CORPUSCULAR HGB CONC 32 g/dL (31-37); MEAN CORPUSCULAR VOLUME 84 fL (79-100); MONO # 0.7 x10^3/uL (0.0-1.1); MONO % 9 % (0-9); NEUT # 6.4 x10^3uL (1.8-7.7); NEUT % 78 % (31-73); PLATELET COUNT 301 x10^3/uL (140-400); RED BLOOD COUNT 2.64 x10^6/uL (4.30-5.70); RED CELL DISTRIBUTION WIDTH 16.1 % (11.5-14.5); WHITE BLOOD COUNT 8.3 x10^3/uL (4.0-11.0)
[2018-06-03 07:00] VITALS: BP 127/95
[2018-06-03] MEDS: IPRATRPIUM/ALBUTEROL 0.5/2.5MG 3 ML NEBU. NEB SCH ×4 (07:35→19:59)
[2018-06-03] MEDS: metFORMIN 500 MG TABLET PO SCH ×2 (08:00→17:35)
[2018-06-03] MEDS: INSULIN LISPRO 300 UNITS/3 ML INSULN.PEN. SQ SCH ×4 (08:00→17:00)
[2018-06-03] MEDS: POLYETHYLENE GLYCOL 3350 17 GM PACKET. PO SCH (09:00)
[2018-06-03] MEDS ORDERED: IV NORMAL SALINE 1000ML BAG 1,000 ML IV ONE (10:30)
--- NOTE | 2018-06-03 10:46 | EKG ---
[facility] [address] [place] [address] Test Date: 2018-06-03 Test Time: 10:43:38 Pat Name: VICKI BRAUN Department: Room: 534 1 Gender: M Manager Oncology: JONAS : 1940 Requested By: ZAK MENDEZ Order Number: [id number] Reading MD: Dmear Coe Measurements Intervals [place] Rate: 106 P: -68 [place]: 174 QRS: -40 QRSD: 140 T: 121 QT: 374 QTc: 499 Interpretive Statements SINUS TACHYCARDIA LEFT BUNDLE BRANCH BLOCK NONSPECIFIC ST-T WAVE CHANGES. Electronically Signed On 06-06-2018 17:39:53 CDT by Demar Coe
[2018-06-03 11:00] VITALS: BP 114/68
[2018-06-03] MEDS: METOPROLOL TART IMMED RELEASE 50 MG TABLET. PO SCH ×2 (11:00→20:43)
[2018-06-03] MEDS: ASPIRIN ENTERIC COATED 81 MG TABLET.DR. PO SCH (11:01)
[2018-06-03] MEDS: FUROSEMIDE 40 MG TABLET. PO SCH (11:01)
[2018-06-03] MEDS: ZONISAMIDE 100 MG CAPSULE. PO SCH (11:02)
[2018-06-03] MEDS: MULTIVITAMIN with MINERAL TABLET. PO SCH (11:02)
[2018-06-03] MEDS: ASCORBIC ACID 500 MG TABLET PO SCH (11:02)
[2018-06-03] MEDS: POTASSIUM CHLORIDE 20 MEQ TABLET.ER. PO SCH (11:02)
[2018-06-03] MEDS: hydrALAZINE 10 MG TABLET PO SCH ×3 (11:02→20:42)
[2018-06-03] MEDS: GABAPENTIN 300 MG CAPSULE. PO SCH (11:03)
[2018-06-03] MEDS: levETIRAcetam 250 MG TABLET PO SCH ×2 (11:03→20:43)
[2018-06-03] MEDS: PHENYLEPH/MINERAL OIL/PETROLAT RECTAL OINTMENT 28GM TUBE. RC SCH ×3 (11:04→20:42)
--- NOTE | 2018-06-03 11:04 | PDOC ---
Infectious Disease Note Subjective Subjective less responsive per RN No fevers reported Patient denies pain Vital Sign Vital Signs Vital Signs Date Time Temp Pulse Resp B/P (MAP) Pulse Ox O2 Delivery O2 Flow Rate FiO2 06/03/18 07:35 95 Room Air 06/03/18 07:00 97.6 126 18 127/95 (106) 97.6 Physical Exam PHYSICAL EXAM GEN: Lying down, opens eyes to voice HEENT: Normal conjunctivae. Oral cavity, pharynx pink, dry NECK: Supple. LUNGS: Clear anteriorly HEART: S1 and S2, soft murmur. ABDOMEN: Obese, soft and non tender with bowel sounds present. GENITOURINARY: Indwelling Crawley in place. EXTREMITIES: Right BKA incision well approx w/ matti, clean Left foot wound, no bone exposure or area redness SKIN: Warm without rash. Several tattoos. NEUROLOGIC: Arouses to name, attention span decreased, drowsy PICC RUE - clean Labs Lab Laboratory Tests Test 06/02/18 11:11 06/02/18 16:35 06/02/18 21:07 06/03/18 03:20 Glucose (Fingerstick) 95 mg/dL (70-99) 94 mg/dL (70-99) 92 mg/dL (70-99) White Blood Count 8.3 x10^3/uL (4.0-11.0) Red Blood Count 2.64 x10^6/uL (4.30-5.70) Hemoglobin 7.1 g/dL (13.0-17.5) Hematocrit 22.1 % (39.0-53.0) Mean Corpuscular Volume 84 fL (79-100) Mean Corpuscular Hemoglobin 27 pg (25-35) Mean Corpuscular Hemoglobin Concent 32 g/dL (31-37) Red Cell Distribution Width 16.1 % (11.5-14.5) Platelet Count 301 x10^3/uL (140-400) Neutrophils (%) (Auto) 78 % (31-73) Lymphocytes (%) (Auto) 9 % (24-48) Monocytes (%) (Auto) 9 % (0-9) Eosinophils (%) (Auto) 4 % (0-3) Basophils (%) (Auto) 1 % (0-3) Neutrophils # (Auto) 6.4 x10^3uL (1.8-7.7) Lymphocytes # (Auto) 0.7 x10^3/uL (1.0-4.8) Monocytes # (Auto) 0.7 x10^3/uL (0.0-1.1) Eosinophils # (Auto) 0.3 x10^3/uL (0.0-0.7) Basophils # (Auto) 0.1 x10^3/uL (0.0-0.2) Prothrombin Time 35.4 SEC (11.7-14.0) Prothromb Time International Ratio 3.5 (0.8-1.1) Sodium Level 137 mmol/L (136-145) Potassium Level 3.6 mmol/L (3.5-5.1) Chloride Level 102 mmol/L (98-107) Carbon Dioxide Level 27 mmol/L (21-32) Anion Gap 8 (6-14) Blood Urea Nitrogen 15 mg/dL (8-26) Creatinine 1.1 mg/dL (0.7-1.3) Estimated GFR (Cockcroft-Gault) 65.1 Glucose Level 85 mg/dL (70-99) Calcium Level 8.2 mg/dL (8.5-10.1) Test 06/03/18 07:23 Glucose (Fingerstick) 83 mg/dL (70-99) Objective Assessment Fevers better overall. repeat UA and BC from 05/24 neg so far Leukocytosis - better Constipation ? cholecystitis - non tender better MRSA bacteremia (4 of 4 bottles) with sepsis, POA source possible foot infection- Dapto sensitive 05/18 -CRYSTAL done no vegetations 05/21; BC from 05/20 & 05/21 neg Infected necrotic ulcer left ankle s/p I and D 05/21. MRSA and Enterobacter ( R Augmentin/cefuroxime) - no exposed bone. 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 Severe PAD s/p BLE stents and previous toe amputations Bioprosthetic aortic valve Renal insufficiency/JIMMY - better Encephalopathy - improved but still some confusion Coagulopathy, on chronic warfarin A- fib RVR Diabetes Type II h/o PSA ( R quinolones & I imipenem) h/o group B strep bacteremia, 2017 Plan Plan of Care Gen surg following Cont Dapto (susceptible 05/18)- 6 weeks = July 02 (last CPK 05/31 was 218) Monitor labs CK/CMP/CBC with diff Q Monday while on Daptomycin Local wound care and offloading D/w nursing Attending Co-Sign The patient was seen and interviewed as well as examined at the bedside. The chart was reviewed. The case was discussed. Agree with the plan of care. GIO GASPAR APRN Jun 03, 2018 11:03 DAYANA CATES MD Jun 03, 2018 13:36
[2018-06-03] MEDS: MORPHINE SULFATE 2 MG/ML VIAL. IV PRN ×2 (11:17→13:22)
[2018-06-03] MEDS: MICAFUNGIN 100 MG in IV DEXTROSE 5% 100ML 100 ML IV SCH (12:02)
[2018-06-03] MEDS: VITS A & D/LANOLIN TOPICAL OINTMENT 56GM TUBE. TP SCH ×2 (12:02→20:42)
[2018-06-03] MEDS: DAPTOmycin (GENERIC) IVPB 590 MG in IV NORMAL SALINE 50ML 50 ML IV SCH (13:21)
--- NOTE | 2018-06-03 14:01 | PDOC ---
PROGRESS NOTES Chief Complaint Chief Complaint Severe sepsis cellulitis w/ gangrenous toes MRSA bacteremia (4 of 4 bottles) with sepsis, POA source //foot infection post Right below-knee amputation -CRYSTAL done no vegetations 05/21; BC from 05/20 & 05/21 neg A. 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 A neoplastic etiology cannot be excluded and CT follow-up may be prudent. Small bilateral pleural effusions with mild bibasilar atelectasis. Distended gallbladder containing material of medium density. This may represent sludge Cont Dapto (susceptible 05/18)- 6 weeks = Jul 02 2018 History of Present Illness History of Present Illness plan LTAC or snu, palliative care following, change to hospice at home not improving much cont current other, still will need 4 weeks of IV abx for treatment plan ID following Christine would like to continue with aggressive tx. including treatment of infections. PT/OT Vitals Vitals Vital Signs Date Time Temp Pulse Resp B/P (MAP) Pulse Ox O2 Delivery O2 Flow Rate FiO2 06/03/18 13:22 95 Room Air 2.0 06/03/18 11:02 124 114/76 06/03/18 11:00 98.3 20 98.3 Physical Exam Physical Exam GEN: Lying down, opens eyes to voice HEENT: Normal conjunctivae. Oral cavity, pharynx pink, dry NECK: Supple. LUNGS: Clear anteriorly HEART: S1 and S2, soft murmur. ABDOMEN: Obese, soft and non tender with bowel sounds present. GENITOURINARY: Indwelling Crawley in place. EXTREMITIES: Right BKA incision well approx w/ matti, clean Left foot wound, no bone exposure or area redness SKIN: Warm without rash. Several tattoos. NEUROLOGIC: Arouses to name, attention span decreased, drowsy PICC RUE - clean 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 right, chronic hyperpigmentation bilateral shins and foot) Labs LABS Laboratory Tests Test 06/02/18 16:35 06/02/18 21:07 06/03/18 03:20 06/03/18 07:23 Glucose (Fingerstick) 94 mg/dL (70-99) 92 mg/dL (70-99) 83 mg/dL (70-99) White Blood Count 8.3 x10^3/uL (4.0-11.0) Red Blood Count 2.64 x10^6/uL (4.30-5.70) Hemoglobin 7.1 g/dL (13.0-17.5) Hematocrit 22.1 % (39.0-53.0) Mean Corpuscular Volume 84 fL (79-100) Mean Corpuscular Hemoglobin 27 pg (25-35) Mean Corpuscular Hemoglobin Concent 32 g/dL (31-37) Red Cell Distribution Width 16.1 % (11.5-14.5) Platelet Count 301 x10^3/uL (140-400) Neutrophils (%) (Auto) 78 % (31-73) Lymphocytes (%) (Auto) 9 % (24-48) Monocytes (%) (Auto) 9 % (0-9) Eosinophils (%) (Auto) 4 % (0-3) Basophils (%) (Auto) 1 % (0-3) Neutrophils # (Auto) 6.4 x10^3uL (1.8-7.7) Lymphocytes # (Auto) 0.7 x10^3/uL (1.0-4.8) Monocytes # (Auto) 0.7 x10^3/uL (0.0-1.1) Eosinophils # (Auto) 0.3 x10^3/uL (0.0-0.7) Basophils # (Auto) 0.1 x10^3/uL (0.0-0.2) Prothrombin Time 35.4 SEC (11.7-14.0) Prothromb Time International Ratio 3.5 (0.8-1.1) Sodium Level 137 mmol/L (136-145) Potassium Level 3.6 mmol/L (3.5-5.1) Chloride Level 102 mmol/L (98-107) Carbon Dioxide Level 27 mmol/L (21-32) Anion Gap 8 (6-14) Blood Urea Nitrogen 15 mg/dL (8-26) Creatinine 1.1 mg/dL (0.7-1.3) Estimated GFR (Cockcroft-Gault) 65.1 Glucose Level 85 mg/dL (70-99) Calcium Level 8.2 mg/dL (8.5-10.1) Test 06/03/18 11:06 Glucose (Fingerstick) 83 mg/dL (70-99) Assessment and Plan Assessmemt and Plan Problems Medical Problems: (1) Fever Status: Acute (2) Gangrene of toe Status: Acute (3) Leukocytosis Status: Acute (4) Severe sepsis Status: Acute Comment Review of Relevant I have reviewed the following items navi (where applicable) has been applied. Labs Laboratory Tests Test 06/01/18 17:24 06/02/18 04:10 06/02/18 09:18 06/02/18 11:11 Glucose (Fingerstick) 144 mg/dL (70-99) 109 mg/dL (70-99) 95 mg/dL (70-99) White Blood Count 10.2 x10^3/uL (4.0-11.0) Red Blood Count 3.14 x10^6/uL (4.30-5.70) Hemoglobin 8.3 g/dL (13.0-17.5) Hematocrit 26.3 % (39.0-53.0) Mean Corpuscular Volume 84 fL (79-100) Mean Corpuscular Hemoglobin 26 pg (25-35) Mean Corpuscular Hemoglobin Concent 31 g/dL (31-37) Red Cell Distribution Width 16.1 % (11.5-14.5) Platelet Count 327 x10^3/uL (140-400) Neutrophils (%) (Auto) 80 % (31-73) Lymphocytes (%) (Auto) 9 % (24-48) Monocytes (%) (Auto) 8 % (0-9) Eosinophils (%) (Auto) 3 % (0-3) Basophils (%) (Auto) 1 % (0-3) Neutrophils # (Auto) 8.1 x10^3uL (1.8-7.7) Lymphocytes # (Auto) 0.9 x10^3/uL (1.0-4.8) Monocytes # (Auto) 0.8 x10^3/uL (0.0-1.1) Eosinophils # (Auto) 0.3 x10^3/uL (0.0-0.7) Basophils # (Auto) 0.1 x10^3/uL (0.0-0.2) Prothrombin Time 32.9 SEC (11.7-14.0) Prothromb Time International Ratio 3.2 (0.8-1.1) Sodium Level 139 mmol/L (136-145) Potassium Level 4.3 mmol/L (3.5-5.1) Chloride Level 104 mmol/L (98-107) Carbon Dioxide Level 25 mmol/L (21-32) Anion Gap 10 (6-14) Blood Urea Nitrogen 13 mg/dL (8-26) Creatinine 1.3 mg/dL (0.7-1.3) Estimated GFR (Cockcroft-Gault) 53.7 BUN/Creatinine Ratio 10 (6-20) Glucose Level 106 mg/dL (70-99) Calcium Level 8.2 mg/dL (8.5-10.1) Total Bilirubin 0.5 mg/dL (0.2-1.0) Aspartate Amino Transf (AST/SGOT) 71 U/L (15-37) Alanine Aminotransferase (ALT/SGPT) 47 U/L (16-63) Alkaline Phosphatase 110 U/L (46-116) Total Protein 6.4 g/dL (6.4-8.2) Albumin 1.6 g/dL (3.4-5.0) Albumin/Globulin Ratio 0.3 (1.0-1.7) Test 06/02/18 16:35 06/02/18 21:07 06/03/18 03:20 06/03/18 07:23 Glucose (Fingerstick) 94 mg/dL (70-99) 92 mg/dL (70-99) 83 mg/dL (70-99) White Blood Count 8.3 x10^3/uL (4.0-11.0) Red Blood Count 2.64 x10^6/uL (4.30-5.70) Hemoglobin 7.1 g/dL (13.0-17.5) Hematocrit 22.1 % (39.0-53.0) Mean Corpuscular Volume 84 fL (79-100) Mean Corpuscular Hemoglobin 27 pg (25-35) Mean Corpuscular Hemoglobin Concent 32 g/dL (31-37) Red Cell Distribution Width 16.1 % (11.5-14.5) Platelet Count 301 x10^3/uL (140-400) Neutrophils (%) (Auto) 78 % (31-73) Lymphocytes (%) (Auto) 9 % (24-48) Monocytes (%) (Auto) 9 % (0-9) Eosinophils (%) (Auto) 4 % (0-3) Basophils (%) (Auto) 1 % (0-3) Neutrophils # (Auto) 6.4 x10^3uL (1.8-7.7) Lymphocytes # (Auto) 0.7 x10^3/uL (1.0-4.8) Monocytes # (Auto) 0.7 x10^3/uL (0.0-1.1) Eosinophils # (Auto) 0.3 x10^3/uL (0.0-0.7) Basophils # (Auto) 0.1 x10^3/uL (0.0-0.2) Prothrombin Time 35.4 SEC (11.7-14.0) Prothromb Time International Ratio 3.5 (0.8-1.1) Sodium Level 137 mmol/L (136-145) Potassium Level 3.6 mmol/L (3.5-5.1) Chloride Level 102 mmol/L (98-107) Carbon Dioxide Level 27 mmol/L (21-32) Anion Gap 8 (6-14) Blood Urea Nitrogen 15 mg/dL (8-26) Creatinine 1.1 mg/dL (0.7-1.3) Estimated GFR (Cockcroft-Gault) 65.1 Glucose Level 85 mg/dL (70-99) Calcium Level 8.2 mg/dL (8.5-10.1) Test 06/03/18 11:06 Glucose (Fingerstick) 83 mg/dL (70-99) Laboratory Tests Test 06/02/18 16:35 06/02/18 21:07 06/03/18 03:20 06/03/18 07:23 Glucose (Fingerstick) 94 mg/dL (70-99) 92 mg/dL (70-99) 83 mg/dL (70-99) White Blood Count 8.3 x10^3/uL (4.0-11.0) Red Blood Count 2.64 x10^6/uL (4.30-5.70) Hemoglobin 7.1 g/dL (13.0-17.5) Hematocrit 22.1 % (39.0-53.0) Mean Corpuscular Volume 84 fL (79-100) Mean Corpuscular Hemoglobin 27 pg (25-35) Mean Corpuscular Hemoglobin Concent 32 g/dL (31-37) Red Cell Distribution Width 16.1 % (11.5-14.5) Platelet Count 301 x10^3/uL (140-400) Neutrophils (%) (Auto) 78 % (31-73) Lymphocytes (%) (Auto) 9 % (24-48) Monocytes (%) (Auto) 9 % (0-9) Eosinophils (%) (Auto) 4 % (0-3) Basophils (%) (Auto) 1 % (0-3) Neutrophils # (Auto) 6.4 x10^3uL (1.8-7.7) Lymphocytes # (Auto) 0.7 x10^3/uL (1.0-4.8) Monocytes # (Auto) 0.7 x10^3/uL (0.0-1.1) Eosinophils # (Auto) 0.3 x10^3/uL (0.0-0.7) Basophils # (Auto) 0.1 x10^3/uL (0.0-0.2) Prothrombin Time 35.4 SEC (11.7-14.0) Prothromb Time International Ratio 3.5 (0.8-1.1) Sodium Level 137 mmol/L (136-145) Potassium Level 3.6 mmol/L (3.5-5.1) Chloride Level 102 mmol/L (98-107) Carbon Dioxide Level 27 mmol/L (21-32) Anion Gap 8 (6-14) Blood Urea Nitrogen 15 mg/dL (8-26) Creatinine 1.1 mg/dL (0.7-1.3) Estimated GFR (Cockcroft-Gault) 65.1 Glucose Level 85 mg/dL (70-99) Calcium Level 8.2 mg/dL (8.5-10.1) Test 06/03/18 11:06 Glucose (Fingerstick) 83 mg/dL (70-99) Microbiology 05/27/18 Blood Culture - Final, Complete NO GROWTH AFTER 5 DAYS 05/19/18 Urine Culture - Final, Complete 05/19/18 Urine Culture Result 1 (FELICITA) - Final, Complete 05/19/18 Anaerobic/Aerobic Culture - Final, Complete 05/19/18 Anaerobic Culture Result 1 (FELICITA) - Final, Complete 05/19/18 Aerobic Culture - Final, Complete 05/19/18 Aerobic Culture Result 1 (FELICITA) - Final, Complete 05/19/18 Aerobic Culture Result 2 (FELICITA) - Final, Complete 05/19/18 Antimicrobic Susceptibility - Final, Complete 05/19/18 Gram Stain - Final, Complete 05/19/18 Gram Stain Result 1 (FELICITA) - Final, Complete 05/19/18 Gram Stain Result 2 (FELICITA) - Final, Complete Medications Current Medications Sodium Chloride 1,000 ml @ 2,190 mls/hr Q28M IV Last administered on 05/18/18at 14:36; Start 05/18/18 at 12:52; Stop 05/18/18 at 13:52; Status DC Piperacillin Sod/ Tazobactam Sod 4.5 gm/Sodium Chloride 100 ml @ 200 mls/hr 1X ONCE IV Last administered on 05/18/18at 14:34; Start 05/18/18 at 13:00; Stop 05/18/18 at 13:29; Status DC Vancomycin HCl (Vanco Per Pharmacy) 1 each 1X ONCE MC Last administered on 05/18/18at 13:00; Start 05/18/18 at 13:00; Stop 05/18/18 at 13:11; Status DC Vancomycin HCl 2 gm/Sodium Chloride 500 ml @ 250 mls/hr 1X ONCE IV Last admi nistered on 05/18/18at 15:28; Start 05/18/18 at 13:15; Stop 05/18/18 at 15:14; Status DC Ondansetron HCl (Zofran) 4 mg PRN Q8HRS PRN IV NAUSEA/VOMITING; Start 05/18/18 at 14:45; Stop 05/18/18 at 15:28; Status DC Fentanyl Citrate (Fentanyl 2ml Vial) 50 mcg PRN Q1HR PRN IV PAIN; Start 05/18/18 at 14:45; Stop 05/19/18 at 11:50; Status DC Sodium Chloride 1,000 ml @ 80 mls/hr [id number] IV ; Start 05/18/18 at 14:43; Stop 05/18/18 at 18:42; Status DC Acetaminophen (Tylenol) 650 mg 1X ONCE PO Last administered on 05/18/18at 15:29; Start 05/18/18 at 15:30; Stop 05/18/18 at 15:31; Status DC Ondansetron HCl (Zofran) 4 mg PRN Q6HRS PRN IV NAUSEA/VOMITING Last administered on 05/24/18at 06:14; Start 05/18/18 at 15:30 Diltiazem HCl (Cardizem Iv Push) 10 mg 1X ONCE IVP ; Start 05/18/18 at 15:30; Stop 05/18/18 at 15:31; Status DC Acetaminophen (Tylenol) 500 mg PRN Q6HRS PRN PO MILD PAIN / TEMP; Start 05/18/18 at 15:30; Stop 05/18/18 at 16:14; Status DC Acetaminophen/ Codeine Phosphate (Tylenol #3) 1 tab PRN Q6HRS PRN PO MODERATE PAIN Last administered on 05/26/18at 21:56; Start 05/18/18 at 15:30 Morphine Sulfate (Morphine Sulfate) 2 mg PRN Q2HR PRN IV PAIN Last administered on 06/03/18at 13:22; Start 05/18/18 at 15:30 Oxycodone/ Acetaminophen (Percocet 5/325) 1 tab PRN Q4HRS PRN PO SEVERE PAIN Last administered on 06/02/18at 19:11; Start 05/18/18 at 15:30 Albuterol Sulfate (Ventolin Hfa) 2 puff PRN Q6HRS PRN IH SHORTNESS OF BREATH; Start 05/18/18 at 15:30; Status UNV Digoxin (Lanoxin) 125 mcg DAILY PO ; Start 05/19/18 at 09:00; Stop 05/19/18 at 09:00; Status DC Furosemide (Lasix) 40 mg DAILY PO Last administered on 06/03/18at 11:01; Start 05/19/18 at 09:00 Gabapentin (Neurontin) 300 mg DAILY PO Last administered on 06/03/18 11:03; Start 05/19/18 at 09:00 Lisinopril (Prinivil) 20 mg DAILY PO Last administered on 05/19/18 10:14; Start 05/19/18 at 09:00; Stop 05/24/18 at 15:20; Status DC Metoprolol Tartrate (Lopressor) 50 mg BID PO Last administered on 06/03/18 11:00; Start 05/18/18 at 21:00 Oxycodone/ Acetaminophen (Percocet 10/325) 1 tab PRN Q6HRS PRN PO SEVERE PAIN (2ND Choice) Last administered on 06/01/18 10:46; Start 05/18/18 at 15:30 Oxycodone/ Acetaminophen (Percocet 5/325) 1 tab PRN Q4HRS PRN PO PAIN; Start 05/18/18 at 15:30; Status UNV Acetaminophen (Tylenol) 500 mg PRN Q6HRS PRN PO MILD PAIN / TEMP Last administered on 05/27/18at 23:35; Start 05/18/18 at 16:15 Atorvastatin Calcium (Lipitor) 80 mg QHS PO Last administered on 06/02/18 21:39; Start 05/18/18 at 21:00 Hydralazine HCl (Apresoline) 10 mg TID PO Last administered on 06/03/18 11:02; Start 05/18/18 at 16:00 Insulin Human Lispro (HumaLOG) 10 units DAILYWBKFT SQ Last administered on 05/23/18 08:58; Start 05/18/18 at 17:00; Stop 05/23/18 at 14:25; Status DC Levetiracetam (Keppra) 1,250 mg BID PO Last administered on 06/03/18 11:03; Start 05/18/18 at 21:00 Metformin HCl (Glucophage) 1,000 mg BIDWMEALS PO Last administered on 06/02/18 09:18; Start 05/18/18 at 17:00 Multivitamins (Thera M Plus) 1 tab DAILY PO Last administered on 06/03/18 11:02; Start 05/19/18 at 09:00 Potassium Chloride (Klor-Con) 20 meq DAILYWBKFT PO Last administered on 06/03/18 11:02; Start 05/19/18 at 08:00 Risperidone (RisperDAL) 1 mg QHS PO Last administered on 06/02/18 21:38; Start 05/18/18 at 21:00 Non-Formulary Medication (Rosuvastatin Calcium (Crestor)) 40 mg DAILY PO ; Start 05/19/18 at 09:00; Status UNV Zonisamide (Zonegran) 400 mg DAILY PO Last administered on 06/03/18 11:02; Start 05/19/18 at 09:00 Albuterol/ Ipratropium (Duoneb) 3 ml Q4HRS W/A NEB Last administered on 06/03/18 12:38; Start 05/18/18 at 18:00 Insulin Human Lispro (HumaLOG) 0-9 UNITS TIDWMEALS SQ Last administered on 05/26/18 18:04; Start 05/18/18 at 17:00 Dextrose (Dextrose 50%-Water Syringe) 12.5 gm PRN Q15MIN PRN IV SEE COMMENTS Last administered on 05/25/18 06:04; Start 05/18/18 at 15:30 Albuterol Sulfate (Ventolin Neb Soln) 2.5 mg PRN Q6HRS PRN NEB SHORTNESS OF BREATH Last administered on 05/26/18at 08:35; Start 05/18/18 at 15:45 Piperacillin Sod/ Tazobactam Sod 3.375 gm/Sodium Chloride 50 ml @ 100 mls/hr Q6HRS IV Last administered on 05/24/18 05:33; Start 05/18/18 at 18:00; Stop 05/24/18 at 08:09; Status DC Potassium Chloride (Klor-Con) 40 meq 1X ONCE PO Last administered on 05/19/18 10:14; Start 05/19/18 at 08:30; Stop 05/19/18 at 08:31; Status DC Heparin Sodium (Porcine) (Heparin Sodium) 5,000 unit Q8HRS SQ ; Start 05/19/18 at 14:00; Stop 05/19/18 at 14:00; Status DC Furosemide (Lasix) 40 mg 1X ONCE IVP Last administered on 4/13/19at 10:12; Start 05/19/18 at 08:45; Stop 05/19/18 at 08:46; Status DC Phytonadione (Vitamin K Ampule) 10 mg 1X ONCE SQ Last administered on 05/19/18at 10:16; Start 05/19/18 at 10:00; Stop 05/19/18 at 10:01; Status DC Vancomycin HCl (Vanco Per Pharmacy) 1 each PRN DAILY PRN MC SEE COMMENTS Last administered on 05/19/18at 10:32; Start 05/19/18 at 10:00; Stop 05/20/18 at 10:42; Status DC Phytonadione (Vitamin K Ampule) 10 mg 1X ONCE SQ ; Start 05/19/18 at 10:15; Stop 05/19/18 at 10:16; Status UNV Vancomycin HCl 1.75 gm/Sodium Chloride 500 ml @ 250 mls/hr Q24H IV Last administered on 05/19/18at 16:59; Start 05/19/18 at 16:00; Stop 05/20/18 at 10:42; Status DC Vancomycin HCl (Vancomycin Trough Level) 1 each 1X ONCE MC ; Start 05/20/18 at 16:30; Stop 05/20/18 at 16:30; Status DC Acetaminophen (Tylenol Supp) 650 mg PRN Q6HRS PRN CO MILD PAIN / TEMP Last administered on 05/23/18at 23:33; Start 05/20/18 at 01:15 Sodium Chloride 500 ml @ 333 mls/hr 1X ONCE IV Last administered on 05/20/18at 01:14; Start 05/20/18 at 01:15; Stop 05/20/18 at 02:45; Status DC Phytonadione 5 mg/ Dextrose 50.5 ml @ 101 mls/hr 1X ONCE IV Last administered on 05/20/18at 10:08; Start 05/20/18 at 10:30; Stop 05/20/18 at 10:59; Status DC Daptomycin 590 mg/ Sodium Chloride 50 ml @ 100 mls/hr Q24H IV Last administer ed on 06/03/18at 13:21; Start 05/20/18 at 12:00 Ondansetron HCl (Zofran) 4 mg PRN Q6HRS PRN IV NAUSEA/VOMITING; Start 05/21/18 at 09:45; Stop 05/22/18 at 09:44; Status DC Fentanyl Citrate (Fentanyl 2ml Vial) 25 mcg PRN Q5MIN PRN IV MILD PAIN; Start 05/21/18 at 09:45; Stop 05/22/18 at 09:44; Status DC Fentanyl Citrate (Fentanyl 2ml Vial) 50 mcg PRN Q5MIN PRN IV MODERATE TO SEVERE PAIN; Start 05/21/18 at 09:45; Stop 05/22/18 at 09:44; Status DC Morphine Sulfate (Morphine Sulfate) 1 mg PRN Q10MIN PRN IV SEVERE PAIN; Start 05/21/18 at 09:45; Stop 05/22/18 at 09:44; Status DC Ringer's Solution 1,000 ml @ 30 mls/hr Q24H IV ; Start 05/21/18 at 09:39; Stop 05/22/18 at 00:37; Status DC Lidocaine HCl (Xylocaine-Mpf 1% 2ml Vial) 2 ml 1X PRN PRN ID IV START; Start 05/21/18 at 09:45; Stop 05/22/18 at 09:44; Status DC Hydromorphone HCl (Dilaudid) 0.5 mg PRN Q10MIN PRN IV SEV PAIN, Second choice; Start 05/21/18 at 09:45; Stop 05/22/18 at 09:44; Status DC Prochlorperazine Edisylate (Compazine) 5 mg PACU PRN PRN IV NAUSEA, MRX1; Start 05/21/18 at 09:45; Stop 05/22/18 at 09:44; Status DC Lidocaine HCl (Glydo (Lidocaine) Jelly) 1 vianney 1X ONCE MM ; Start 05/21/18 at 12:30; Stop 05/21/18 at 12:31; Status DC Propofol 20 ml @ As Directed STK-MED ONCE IV ; Start 05/21/18 at 12:27; Stop 05/21/18 at 12:28; Status DC Dexamethasone Sodium Phosphate (Decadron) 20 mg STK-MED ONCE .ROUTE ; Start at 12:27; Stop 05/21/18 at 12:28; Status DC Famotidine (Pepcid Vial) 20 mg STK-MED ONCE .ROUTE ; Start 05/21/18 at 12:27; Stop 05/21/18 at 12:28; Status DC Lidocaine HCl (Lidocaine Pf 2% Vial) 5 ml STK-MED ONCE .ROUTE ; Start 05/21/18 at 12:27; Stop 05/21/18 at 12:28; Status DC Ondansetron HCl (Zofran) 4 mg STK-MED ONCE .ROUTE ; Start 05/21/18 at 12:27; Stop 05/21/18 at 12:28; Status DC Fentanyl Citrate (Fentanyl 2ml Vial) 100 mcg STK-MED ONCE .ROUTE ; Start 05/21/18 at 12:27; Stop 05/21/18 at 12:28; Status DC Bacitracin 64650 unit/Sodium Chloride 500 ml @ 500 mls/hr 1X ONCE IRR ; Start 05/21/18 at 12:40; Stop 05/21/18 at 13:39; Status DC Cefazolin Sodium 1 gm/Sodium Chloride 500 ml @ 500 mls/hr 1X ONCE IRR ; Start 05/21/18 at 12:40; Stop 05/21/18 at 13:39; Status DC Lidocaine HCl 20 ml STK-MED ONCE .ROUTE ; Start 05/21/18 at 11:42; Stop 05/21/18 at 12:42; Status DC Esmolol HCl (Brevibloc) 100 mg STK-MED ONCE IVP ; Start 05/21/18 at 13:01; Stop 05/21/18 at 13:02; Status DC Esmolol HCl (Brevibloc) 100 mg STK-MED ONCE IVP ; Start 05/21/18 at 14:22; Stop 05/21/18 at 14:23; Status DC Neomycin/ Polymyxin/ Bacitracin (Triple Antibiotic Ointment) 1 pkt STK-MED ONCE TP Last administered on 05/21/18at 14:41; Start 05/21/18 at 13:38; Stop 05/21/18 at 14:38; Status DC Sevoflurane (Ultane) 90 ml STK-MED ONCE IH ; Start 05/21/18 at 14:40; Stop 05/21/18 at 14:41; Status DC Naloxone HCl (Narcan) 0.4 mg PRN Q2MIN PRN IV SEE INSTRUCTIONS; Start 05/21/18 at 15:00 Sodium Chloride 1,000 ml @ 25 mls/hr Q24H IV ; Start 05/21/18 at 14:57; Stop 05/24/18 at 07:00; Status DC Morphine Sulfate 30 ml @ 0 mls/hr CONT PRN PRN IV PER PROTOCOL; Start 05/21/18 at 15:00 Labetalol HCl (Normodyne Iv Push) 20 mg PRN Q2HR PRN IVP HYPERTENSION, SEE COMMENTS Last administered on 05/24/18at 00:15; Start 05/21/18 at 15:30 Labetalol HCl (Normodyne Iv Push) 5 mg 1X PACU PRN IVP tachycardia and HTN Last administered on 05/21/18at 15:30; Start 05/21/18 at 15:30; Stop 05/22/18 at 09:09; Status DC Insulin Glargine (Lantus) 3 units 1X ONCE SQ Last administered on 05/21/18at 22:00; Start 05/21/18 at 22:00; Stop 05/22/18 at 01:31; Status DC Aspirin (Ecotrin) 81 mg DAILYWBKFT PO Last administered on 06/03/18at 11:01; Start 05/23/18 at 08:00 Digoxin (Lanoxin) 250 mcg 1X ONCE IV Last administered on 05/22/18at 12:28; Start 05/22/18 at 12:30; Stop 05/22/18 at 12:31; Status DC Warfarin Sodium (Coumadin) 6 mg DAILY16 PO ; Start 05/22/18 at 16:00; Stop 05/22/18 at 16:00; Status DC Warfarin Sodium (Coumadin) 2.5 mg 3X/WEEK PO ; Start 05/23/18 at 09:00; Status UNV Warfarin Sodium (Coumadin Per Physician) 1 each PRN DAILY PRN MC SEE COMMENTS; Start 05/22/18 at 14:45; Stop 05/22/18 at 14:57; Status DC Warfarin Sodium (Coumadin Per Pharmacy) 1 each PRN DAILY PRN MC SEE COMMENTS Last administered on 06/02/18at 15:25; Start 05/22/18 at 15:00 Warfarin Sodium (Coumadin) 4 mg 1X WARF ONCE PO Last administered on 05/22/18at 16:19; Start 05/22/18 at 16:00; Stop 05/22/18 at 16:01; Status DC Warfarin Sodium (Coumadin) 4 mg 1X WARF ONCE PO ; Start 05/23/18 at 16:00; Stop 05/23/18 at 16:01; Status DC Ringer's Solution 1,000 ml @ 75 mls/hr [id number] IV ; Start 05/23/18 at 13:45; Status Cancel Ringer's Solution 1,000 ml @ 75 mls/hr [id number] IV Last administered on 06/02/18at 13:17; Start 05/23/18 at 14:00; Stop 06/02/18 at 18:01; Status DC Insulin Human Lispro (HumaLOG) 7 units DAILYWBKFT SQ ; Start 05/24/18 at 08:00; Stop 05/25/18 at 12:44; Status DC Dextrose (Dextrose 50%-Water Syringe) 25 gm 1X ONCE IV Last administered on 05/23/18at 13:15; Start 05/23/18 at 17:45; Stop 05/23/18 at 17:46; Status DC Meropenem 500 mg/ Sodium Chloride 50 ml @ 100 mls/hr Q6HRS IV Last administ ered on 06/01/18at 05:32; Start 05/24/18 at 12:00; Stop 06/01/18 at 09:46; Status DC Warfarin Sodium (Coumadin) 6 mg 1X WARF ONCE PO Last administered on 05/24/18at 15:33; Start 05/24/18 at 16:00; Stop 05/24/18 at 16:01; Status DC Insulin Human Lispro (HumaLOG) 3 units [id number] SQ Last administered on 06/02/18at 09:22; Start 05/26/18 at 08:00 Warfarin Sodium (Coumadin) 6 mg 1X WARF ONCE PO Last administered on 05/25/18at 16:04; Start 05/25/18 at 16:00; Stop 05/25/18 at 16:01; Status DC Polyethylene Glycol (miraLAX PACKET) 17 gm DAILY PO Last administered on 06/02/18at 09:20; Start 05/26/18 at 14:00 Warfarin Sodium (Coumadin) 7.5 mg 1X WARF ONCE PO Last administered on 05/27/18at 17:56; Start 05/27/18 at 16:00; Stop 05/27/18 at 16:01; Status DC Micafungin Sodium 100 mg/Dextrose 100 ml @ 100 mls/hr Q24H IV Last administered on 06/03/18 12:02; Start 05/27/18 at 12:00 Warfarin Sodium (Coumadin) 6 mg 1X WARF ONCE PO Last administered on 05/28/18 17:32; Start 05/28/18 at 16:00; Stop 05/28/18 at 16:01; Status DC Ascorbic Acid (Vitamin C) 500 mg DAILY PO Last administered on 06/03/18 11:02; Start 05/28/18 at 16:00 Warfarin Sodium (Coumadin) 6 mg 1X WARF ONCE PO Last administered on 05/29/18 17:04; Start 05/29/18 at 16:00; Stop 05/29/18 at 16:01; Status DC Warfarin Sodium (Coumadin) 6 mg 1X WARF ONCE PO Last administered on 05/30/18 15:29; Start 05/30/18 at 16:00; Stop 05/30/18 at 16:01; Status DC Lidocaine/Sodium Bicarbonate (Buffered Lidocaine 1%) 3 ml STK-MED ONCE .ROUTE ; Start 05/30/18 at 13:48; Stop 05/30/18 at 13:49; Status DC Warfarin Sodium (Coumadin) 6 mg 1X WARF ONCE PO Last administered on 05/31/18 17:23; Start 05/31/18 at 16:00; Stop 05/31/18 at 16:01; Status DC Warfarin Sodium (Coumadin) 3 mg 1X WARF ONCE PO Last administered on 06/01/18 16:14; Start 06/01/18 at 16:00; Stop 06/01/18 at 16:01; Status DC Vitamin A/Vitamin D (Vitamin A & D Ointment) 1 vianney BID TP Last administered on 06/03/18 12:02; Start 06/01/18 at 21:00 Phenyleph/Shark Oil/Min Oil/Petrol (Preparation H) 1 vianney TID RC Last administered on 06/03/18 11:04; Start 06/02/18 at 14:00 Alteplase, Recombinant (Cathflo For Central Catheter Clearance) 1 mg 1X ONCE INT CAT Last administered on 06/02/18 13:16; Start 06/02/18 at 12:15; Stop 06/02/18 at 12:16; Status DC Warfarin Sodium (Coumadin - No Dose Today) 1 each 1X WARF ONCE MC Last administered on 06/02/18at 16:00; Start 06/02/18 at 16:00; Stop 06/02/18 at 16:01; Status DC Sodium Chloride 1,000 ml @ 1,000 mls/hr 1X ONCE IV Last administered on 06/03/18at 10:44; Start 06/03/18 at 10:30; Stop 06/03/18 at 11:29; Status DC Active Scripts Active Digoxin 125 Mcg Tablet 125 Mcg PO DAILY Furosemide 40 Mg Tablet 40 Mg PO DAILY Metoprolol Tartrate 50 Mg Tablet 50 Mg PO BID [Warfarin Sodium] 1 EACH Each 1 Each MC PRN DAILY PRN Lisinopril 20 Mg Tablet 20 Mg PO DAILY Duoneb 0.5-3(2.5) Mg/3 Ml (Albuterol/Ipratropium) 3 Ml Ampul.neb 3 Ml NEB Q4HRS W/A 30 Days Hydralazine Hcl 10 Mg Tablet 10 Mg PO TID Reported Zonisamide 100 Mg Capsule 400 Mg PO DAILY Percocet 5-325 Mg Tablet (Oxycodone/Acetaminophen) 1 Each Tablet 1 Tab PO PRN Q4HRS PRN Multivitamins (Multivitamin) 1 Each Tablet 1 Tab PO DAILY Levetiracetam 250 Mg Tablet 1,250 Mg PO BID Novolin N (Nph, Human Insulin Isophane) 100 Unit/1 Ml Vial Unknown Dose SQ Atorvastatin Calcium 80 Mg Tablet 1 Tab PO DAILY Acetaminophen 500 Mg Tablet 1 Tab PO PRN Q6HRS PRN Albuterol Sulfate Hfa Inhaler (Albuterol Sulfate) 8.5 Gm Hfa.aer.ad 2 Puff IH PRN Q6HRS PRN Aspirin Ec (Aspirin) 325 Mg Tablet.dr 81 Mg PO DAILY Crestor (Rosuvastatin Calcium) 40 Mg Tablet 40 Mg PO DAILY Warfarin Sodium 5 Mg Tablet 6 Mg PO DAILY Warfarin Sodium 2.5 Mg Tablet 2.5 Mg PO 3X/WEEK monday,monday, Gabapentin (Gabapentin) 300 Mg Capsule 300 Mg PO DAILY Risperidone 1 Mg Tablet 1 Mg PO HS Novolog (Insulin Aspart) 100 Unit/1 Ml Vial 10 Unit SQ DAILYAC Oxycodone-Acetaminophen 10-325 (Oxycodone Hcl/Acetaminophen) 1 Each Tablet 1 Each PO PRN Q6HRS Potassium 99 Mg Tablet 20 Meq PO DAILY Prednisone (Prednisone) 10 Mg Tablet 10 Mg PO DAILY Metformin Hcl 500 Mg Tablet 1,000 Mg PO BIDBFRMEAL Vitals/I & O Vital Sign - Last 24 Hours 06/02/18 06/02/18 06/02/18 06/02/18 15:00 16:16 19:00 19:11 Temp 99.1 98.4 99.1 98.4 Pulse 63 63 Resp 18 16 B/P (MAP) 119/44 (69) 128/40 (69) Pulse Ox 96 96 95 O2 Delivery Room Air Room Air Room Air Room Air 06/02/18 06/02/18 06/02/18 06/02/18 19:46 20:00 20:11 21:00 Pulse 63 B/P (MAP) 128/40 Pulse Ox 96 O2 Delivery Room Air Room Air Room Air 06/02/18 06/02/18 06/03/18 06/03/18 21:39 23:00 03:00 07:00 Temp 98.2 97.9 97.6 98.2 97.9 97.6 Pulse 63 45 87 126 Resp 17 17 18 B/P (MAP) 128/40 124/64 (84) 121/85 (97) 127/95 (106) Pulse Ox 95 92 95 O2 Delivery Room Air Room Air Room Air 06/03/18 06/03/18 06/03/18 06/03/18 07:35 11:00 11:00 11:02 Temp 98.3 98.3 Pulse 124 125 124 Resp 20 B/P (MAP) 114/68 114/68 (83) 114/76 Pulse Ox 95 95 O2 Delivery Room Air Room Air 06/03/18 06/03/18 06/03/18 06/03/18 11:17 11:47 12:39 13:22 Pulse Ox 95 95 O2 Delivery Room Air Room Air Room Air Room Air O2 Flow Rate 2.0 2.0 Intake and Output 06/02/18 06/02/18 06/03/18 15:00 23:00 07:00 Intake Total 150 ml 150 ml Output Total 1000 ml 700 ml Balance 150 ml -1000 ml -550 ml Nutrition Consultation Dietary Evaluation: Recommendations by RD: Increase Calorie Intake, Protein supplementation Comments: Continue diet per [employer] RO[employer] with ADA/cardiac diet restrictions per pmhx, can liberalize as needed to provide foods that pt likes continue Glucerna TID (chocolate) Continue MVI and Vit C (500 mg BID) Expected Outcomes/Goals: PO intake to meet >75% est needs - not met, goal ongoing Malnutrition Findings: Food and Nutrition Intake (Mod: <75% est energy req 7days Weight Status: Obese ZAK MENDEZ MD Jun 03, 2018 14:01
[2018-06-03 15:00] VITALS: BP 122/51
[2018-06-03] MEDS ORDERED: WARFARIN 1 MG TABLET. PO ONE (16:00)
[2018-06-03 19:00] VITALS: BP 136/53
[2018-06-03] MEDS: ATORVASTATIN CALCIUM 40 MG TABLET. PO SCH (20:43)
[2018-06-03] MEDS: risperiDONE 1 MG TABLET. PO SCH (20:43)
[2018-06-03 23:00] VITALS: BP 159/69
[2018-06-04 03:00] VITALS: BP 139/40
[2018-06-04 06:27] LABS: BASO # 0.1 x10^3/uL (0.0-0.2); BASO % 1 % (0-3); EOS # 0.4 x10^3/uL (0.0-0.7); EOS % 4 % (0-3); HEMATOCRIT 24.1 % (39.0-53.0); HEMOGLOBIN 7.7 g/dL (13.0-17.5); LYMPH # 0.9 x10^3/uL (1.0-4.8); LYMPH % 9 % (24-48); MEAN CORPUSCULAR HEMOGLOBIN 26 pg (25-35); MEAN CORPUSCULAR HGB CONC 32 g/dL (31-37); MEAN CORPUSCULAR VOLUME 83 fL (79-100); MONO # 0.9 x10^3/uL (0.0-1.1); MONO % 9 % (0-9); NEUT # 7.8 x10^3uL (1.8-7.7); NEUT % 77 % (31-73); PLATELET COUNT 325 x10^3/uL (140-400); RED CELL DISTRIBUTION WIDTH 16.1 % (11.5-14.5); WHITE BLOOD COUNT 10.1 x10^3/uL (4.0-11.0)
[2018-06-04 06:39] LABS: PROTHROMBIN TIME PATIENT 34.5 SEC (11.7-14.0)
[2018-06-04 06:42] LABS: ALBUMIN 1.6 g/dL (3.4-5.0); ALBUMIN/GLOBULIN RATIO 0.3 (1.0-1.7); CALCIUM 8.3 mg/dL (8.5-10.1); CREATININE 1.1 mg/dL (0.7-1.3); GFR 65.1; POTASSIUM 3.9 mmol/L (3.5-5.1); TOTAL BILIRUBIN 0.5 mg/dL (0.2-1.0); TOTAL PROTEIN 6.2 g/dL (6.4-8.2)
[2018-06-04 07:00] VITALS: BP 143/63
[2018-06-04] MEDS: INSULIN LISPRO 300 UNITS/3 ML INSULN.PEN. SQ SCH ×4 (07:54→16:54)
[2018-06-04] MEDS: VITS A & D/LANOLIN TOPICAL OINTMENT 56GM TUBE. TP SCH ×2 (08:01→20:38)
[2018-06-04] MEDS: PHENYLEPH/MINERAL OIL/PETROLAT RECTAL OINTMENT 28GM TUBE. RC SCH ×3 (08:01→20:38)
[2018-06-04] MEDS: POLYETHYLENE GLYCOL 3350 17 GM PACKET. PO SCH (08:01)
[2018-06-04] MEDS: GABAPENTIN 300 MG CAPSULE. PO SCH (08:02)
[2018-06-04] MEDS: MULTIVITAMIN with MINERAL TABLET. PO SCH (08:02)
[2018-06-04] MEDS: POTASSIUM CHLORIDE 20 MEQ TABLET.ER. PO SCH (08:02)
[2018-06-04] MEDS: ASCORBIC ACID 500 MG TABLET PO SCH (08:02)
[2018-06-04] MEDS: FUROSEMIDE 40 MG TABLET. PO SCH (08:02)
[2018-06-04] MEDS: ZONISAMIDE 100 MG CAPSULE. PO SCH (08:02)
[2018-06-04] MEDS: levETIRAcetam 250 MG TABLET PO SCH ×2 (08:03→20:40)
[2018-06-04] MEDS: hydrALAZINE 10 MG TABLET PO SCH ×3 (08:03→20:39)
[2018-06-04] MEDS: ASPIRIN ENTERIC COATED 81 MG TABLET.DR. PO SCH (08:03)
[2018-06-04] MEDS: metFORMIN 500 MG TABLET PO SCH ×2 (08:04→16:57)
[2018-06-04] MEDS: METOPROLOL TART IMMED RELEASE 50 MG TABLET. PO SCH ×2 (08:04→20:39)
[2018-06-04] MEDS: IPRATRPIUM/ALBUTEROL 0.5/2.5MG 3 ML NEBU. NEB SCH ×4 (09:02→19:23)
--- NOTE | 2018-06-04 09:49 | PDOC ---
Infectious Disease Note Subjective Subjective pt is feeling good, wants to go home ( not SNF ) ROS ROS no n/v/d/ Vital Sign Vital Signs Vital Signs Date Time Temp Pulse Resp B/P (MAP) Pulse Ox O2 Delivery O2 Flow Rate FiO2 06/04/18 09:03 98 Nasal Cannula 2.0 06/04/18 08:04 106 143/63 06/04/18 07:00 98.6 18 98.6 Physical Exam PHYSICAL EXAM GEN: Lying down, opens eyes to voice HEENT: Normal conjunctivae. Oral cavity, pharynx pink, dry NECK: Supple. LUNGS: Clear anteriorly HEART: S1 and S2, soft murmur. ABDOMEN: Obese, soft and non tender with bowel sounds present. GENITOURINARY: Indwelling Crawley in place. EXTREMITIES: Right BKA incision well approx w/ matti, clean Left ankle wound, no bone exposure or area redness SKIN: Warm without rash. Several tattoos. NEUROLOGIC: Arouses to name, attention span decreased, drowsy PICC RUE - clean Labs Lab Laboratory Tests Test 06/03/18 11:06 06/03/18 16:07 06/03/18 20:33 06/04/18 06:15 Glucose (Fingerstick) 83 mg/dL (70-99) 139 mg/dL (70-99) 105 mg/dL (70-99) White Blood Count 10.1 x10^3/uL (4.0-11.0) Red Blood Count 2.90 x10^6/uL (4.30-5.70) Hemoglobin 7.7 g/dL (13.0-17.5) Hematocrit 24.1 % (39.0-53.0) Mean Corpuscular Volume 83 fL (79-100) Mean Corpuscular Hemoglobin 26 pg (25-35) Mean Corpuscular Hemoglobin Concent 32 g/dL (31-37) Red Cell Distribution Width 16.1 % (11.5-14.5) Platelet Count 325 x10^3/uL (140-400) Neutrophils (%) (Auto) 77 % (31-73) Lymphocytes (%) (Auto) 9 % (24-48) Monocytes (%) (Auto) 9 % (0-9) Eosinophils (%) (Auto) 4 % (0-3) Basophils (%) (Auto) 1 % (0-3) Neutrophils # (Auto) 7.8 x10^3uL (1.8-7.7) Lymphocytes # (Auto) 0.9 x10^3/uL (1.0-4.8) Monocytes # (Auto) 0.9 x10^3/uL (0.0-1.1) Eosinophils # (Auto) 0.4 x10^3/uL (0.0-0.7) Basophils # (Auto) 0.1 x10^3/uL (0.0-0.2) Prothrombin Time 34.5 SEC (11.7-14.0) Prothromb Time International Ratio 3.4 (0.8-1.1) Sodium Level 138 mmol/L (136-145) Potassium Level 3.9 mmol/L (3.5-5.1) Chloride Level 104 mmol/L (98-107) Carbon Dioxide Level 26 mmol/L (21-32) Anion Gap 8 (6-14) Blood Urea Nitrogen 12 mg/dL (8-26) Creatinine 1.1 mg/dL (0.7-1.3) Estimated GFR (Cockcroft-Gault) 65.1 BUN/Creatinine Ratio 11 (6-20) Glucose Level 114 mg/dL (70-99) Calcium Level 8.3 mg/dL (8.5-10.1) Total Bilirubin 0.5 mg/dL (0.2-1.0) Aspartate Amino Transf (AST/SGOT) 49 U/L (15-37) Alanine Aminotransferase (ALT/SGPT) 34 U/L (16-63) Alkaline Phosphatase 99 U/L (46-116) Total Protein 6.2 g/dL (6.4-8.2) Albumin 1.6 g/dL (3.4-5.0) Albumin/Globulin Ratio 0.3 (1.0-1.7) Test 06/04/18 07:43 Glucose (Fingerstick) 106 mg/dL (70-99) Micro Microbiology 05/27/18 Blood Culture - Final, Complete NO GROWTH AFTER 5 DAYS 05/19/18 Urine Culture - Final, Complete 05/19/18 Urine Culture Result 1 (FELICITA) - Final, Complete 05/19/18 Anaerobic/Aerobic Culture - Final, Complete 05/19/18 Anaerobic Culture Result 1 (FELICITA) - Final, Complete 05/19/18 Aerobic Culture - Final, Complete 05/19/18 Aerobic Culture Result 1 (FELICITA) - Final, Complete 05/19/18 Aerobic Culture Result 2 (FELICITA) - Final, Complete 05/19/18 Antimicrobic Susceptibility - Final, Complete 05/19/18 Gram Stain - Final, Complete 05/19/18 Gram Stain Result 1 (FELICITA) - Final, Complete 05/19/18 Gram Stain Result 2 (FELICITA) - Final, Complete Objective Assessment Fevers better overall. repeat UA and BC from 05/24 neg so far Leukocytosis - better Constipation ? cholecystitis - non tender better MRSA bacteremia (4 of 4 bottles) with sepsis, POA source possible foot infection- Dapto sensitive 05/18 -CRYSTAL done no vegetations 05/21; BC from 05/20 & 05/21 neg Infected necrotic ulcer left ankle s/p I and D 05/21. MRSA and Enterobacter ( R Augmentin/cefuroxime) - no exposed bone. 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 Severe PAD s/p BLE stents and previous toe amputations Bioprosthetic aortic valve Renal insufficiency/JIMMY - better Encephalopathy - improved but still some confusion Coagulopathy, on chronic warfarin A- fib RVR Diabetes Type II h/o PSA ( R quinolones & I imipenem) h/o group B strep bacteremia, 2016 Plan Plan of Care Cont Dapto (susceptible 05/18)- 6 weeks = July 02 (last CPK 05/31 was 218) Monitor labs CK/CMP/CBC with diff Q Monday while on Daptomycin Local wound care and offloading left ankle wound is not infected, but it is on lat malleolus, and the way his foot rotates and sits on it , likely will get worse D/w nursing f/u with us in 2 wks wkly cbc, bun/cr, sed rate, cpk , fax to [phone] DAYANA CATES MD Jun 04, 2018 09:49
--- NOTE | 2018-06-04 10:15 | NUR ---
SW following pt. Pt has been accepted at [facility] pending insurance approval. Spoke with [facility] and they are awaiting to hear if [employer] will give them a carve out for IV abx. [facility] RN [facility].
[2018-06-04 11:00] VITALS: BP 125/36
[2018-06-04] MEDS: DAPTOmycin (GENERIC) IVPB 590 MG in IV NORMAL SALINE 50ML 50 ML IV SCH (11:56)
--- NOTE | 2018-06-04 13:19 | PDOC ---
PROGRESS NOTES Chief Complaint Chief Complaint Severe sepsis cellulitis w/ gangrenous toes MRSA bacteremia (4 of 4 bottles) with sepsis, POA source //foot infection post Right below-knee amputation -CRYSTAL done no vegetations 05/21; BC from 05/20 & 05/21 neg A. 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 A neoplastic etiology cannot be excluded and CT follow-up may be prudent. Small bilateral pleural effusions with mild bibasilar atelectasis. Distended gallbladder containing material of medium density. This may represent sludge Cont Dapto (susceptible 05/18)- 6 weeks = Jul 02 2018 History of Present Illness History of Present Illness plan LTAC or snu, palliative care following, change to hospice at home not improving much cont current other, still will need 4 weeks of IV abx for treatment plan ID following Christine would like to continue with aggressive tx. including treatment of infections. PT/OT Vitals Vitals Vital Signs Date Time Temp Pulse Resp B/P (MAP) Pulse Ox O2 Delivery O2 Flow Rate FiO2 06/04/18 12:35 93 Room Air 06/04/18 11:00 99.2 64 125/36 (65) 2.0 99.2 06/04/18 07:00 18 Physical Exam Physical Exam GEN: Lying down, opens eyes to voice HEENT: Normal conjunctivae. Oral cavity, pharynx pink, dry NECK: Supple. LUNGS: Clear anteriorly HEART: S1 and S2, soft murmur. ABDOMEN: Obese, soft and non tender with bowel sounds present. GENITOURINARY: Indwelling Crawley in place. EXTREMITIES: Right BKA incision well approx w/ matti, clean Left ankle wound, no bone exposure or area redness SKIN: Warm without rash. Several tattoos. NEUROLOGIC: Arouses to name, attention span decreased, drowsy PICC RUE - clean 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 right, chronic hyperpigmentation bilateral shins and foot) Labs LABS Laboratory Tests Test 06/03/18 16:07 06/03/18 20:33 06/04/18 06:15 06/04/18 07:43 Glucose (Fingerstick) 139 mg/dL (70-99) 105 mg/dL (70-99) 106 mg/dL (70-99) White Blood Count 10.1 x10^3/uL (4.0-11.0) Red Blood Count 2.90 x10^6/uL (4.30-5.70) Hemoglobin 7.7 g/dL (13.0-17.5) Hematocrit 24.1 % (39.0-53.0) Mean Corpuscular Volume 83 fL (79-100) Mean Corpuscular Hemoglobin 26 pg (25-35) Mean Corpuscular Hemoglobin Concent 32 g/dL (31-37) Red Cell Distribution Width 16.1 % (11.5-14.5) Platelet Count 325 x10^3/uL (140-400) Neutrophils (%) (Auto) 77 % (31-73) Lymphocytes (%) (Auto) 9 % (24-48) Monocytes (%) (Auto) 9 % (0-9) Eosinophils (%) (Auto) 4 % (0-3) Basophils (%) (Auto) 1 % (0-3) Neutrophils # (Auto) 7.8 x10^3uL (1.8-7.7) Lymphocytes # (Auto) 0.9 x10^3/uL (1.0-4.8) Monocytes # (Auto) 0.9 x10^3/uL (0.0-1.1) Eosinophils # (Auto) 0.4 x10^3/uL (0.0-0.7) Basophils # (Auto) 0.1 x10^3/uL (0.0-0.2) Prothrombin Time 34.5 SEC (11.7-14.0) Prothromb Time International Ratio 3.4 (0.8-1.1) Sodium Level 138 mmol/L (136-145) Potassium Level 3.9 mmol/L (3.5-5.1) Chloride Level 104 mmol/L (98-107) Carbon Dioxide Level 26 mmol/L (21-32) Anion Gap 8 (6-14) Blood Urea Nitrogen 12 mg/dL (8-26) Creatinine 1.1 mg/dL (0.7-1.3) Estimated GFR (Cockcroft-Gault) 65.1 BUN/Creatinine Ratio 11 (6-20) Glucose Level 114 mg/dL (70-99) Calcium Level 8.3 mg/dL (8.5-10.1) Total Bilirubin 0.5 mg/dL (0.2-1.0) Aspartate Amino Transf (AST/SGOT) 49 U/L (15-37) Alanine Aminotransferase (ALT/SGPT) 34 U/L (16-63) Alkaline Phosphatase 99 U/L (46-116) Total Protein 6.2 g/dL (6.4-8.2) Albumin 1.6 g/dL (3.4-5.0) Albumin/Globulin Ratio 0.3 (1.0-1.7) Test 06/04/18 11:07 06/04/18 13:02 Glucose (Fingerstick) 84 mg/dL (70-99) 87 mg/dL (70-99) Assessment and Plan Assessmemt and Plan Problems Medical Problems: (1) Fever Status: Acute (2) Gangrene of toe Status: Acute (3) Leukocytosis Status: Acute (4) Severe sepsis Status: Acute Comment Review of Relevant I have reviewed the following items navi (where applicable) has been applied. Labs Laboratory Tests Test 06/02/18 16:35 06/02/18 21:07 06/03/18 03:20 06/03/18 07:23 Glucose (Fingerstick) 94 mg/dL (70-99) 92 mg/dL (70-99) 83 mg/dL (70-99) White Blood Count 8.3 x10^3/uL (4.0-11.0) Red Blood Count 2.64 x10^6/uL (4.30-5.70) Hemoglobin 7.1 g/dL (13.0-17.5) Hematocrit 22.1 % (39.0-53.0) Mean Corpuscular Volume 84 fL (79-100) Mean Corpuscular Hemoglobin 27 pg (25-35) Mean Corpuscular Hemoglobin Concent 32 g/dL (31-37) Red Cell Distribution Width 16.1 % (11.5-14.5) Platelet Count 301 x10^3/uL (140-400) Neutrophils (%) (Auto) 78 % (31-73) Lymphocytes (%) (Auto) 9 % (24-48) Monocytes (%) (Auto) 9 % (0-9) Eosinophils (%) (Auto) 4 % (0-3) Basophils (%) (Auto) 1 % (0-3) Neutrophils # (Auto) 6.4 x10^3uL (1.8-7.7) Lymphocytes # (Auto) 0.7 x10^3/uL (1.0-4.8) Monocytes # (Auto) 0.7 x10^3/uL (0.0-1.1) Eosinophils # (Auto) 0.3 x10^3/uL (0.0-0.7) Basophils # (Auto) 0.1 x10^3/uL (0.0-0.2) Prothrombin Time 35.4 SEC (11.7-14.0) Prothromb Time International Ratio 3.5 (0.8-1.1) Sodium Level 137 mmol/L (136-145) Potassium Level 3.6 mmol/L (3.5-5.1) Chloride Level 102 mmol/L (98-107) Carbon Dioxide Level 27 mmol/L (21-32) Anion Gap 8 (6-14) Blood Urea Nitrogen 15 mg/dL (8-26) Creatinine 1.1 mg/dL (0.7-1.3) Estimated GFR (Cockcroft-Gault) 65.1 Glucose Level 85 mg/dL (70-99) Calcium Level 8.2 mg/dL (8.5-10.1) Test 06/03/18 11:06 06/03/18 16:07 06/03/18 20:33 06/04/18 06:15 Glucose (Fingerstick) 83 mg/dL (70-99) 139 mg/dL (70-99) 105 mg/dL (70-99) White Blood Count 10.1 x10^3/uL (4.0-11.0) Red Blood Count 2.90 x10^6/uL (4.30-5.70) Hemoglobin 7.7 g/dL (13.0-17.5) Hematocrit 24.1 % (39.0-53.0) Mean Corpuscular Volume 83 fL (79-100) Mean Corpuscular Hemoglobin 26 pg (25-35) Mean Corpuscular Hemoglobin Concent 32 g/dL (31-37) Red Cell Distribution Width 16.1 % (11.5-14.5) Platelet Count 325 x10^3/uL (140-400) Neutrophils (%) (Auto) 77 % (31-73) Lymphocytes (%) (Auto) 9 % (24-48) Monocytes (%) (Auto) 9 % (0-9) Eosinophils (%) (Auto) 4 % (0-3) Basophils (%) (Auto) 1 % (0-3) Neutrophils # (Auto) 7.8 x10^3uL (1.8-7.7) Lymphocytes # (Auto) 0.9 x10^3/uL (1.0-4.8) Monocytes # (Auto) 0.9 x10^3/uL (0.0-1.1) Eosinophils # (Auto) 0.4 x10^3/uL (0.0-0.7) Basophils # (Auto) 0.1 x10^3/uL (0.0-0.2) Prothrombin Time 34.5 SEC (11.7-14.0) Prothromb Time International Ratio 3.4 (0.8-1.1) Sodium Level 138 mmol/L (136-145) Potassium Level 3.9 mmol/L (3.5-5.1) Chloride Level 104 mmol/L (98-107) Carbon Dioxide Level 26 mmol/L (21-32) Anion Gap 8 (6-14) Blood Urea Nitrogen 12 mg/dL (8-26) Creatinine 1.1 mg/dL (0.7-1.3) Estimated GFR (Cockcroft-Gault) 65.1 BUN/Creatinine Ratio 11 (6-20) Glucose Level 114 mg/dL (70-99) Calcium Level 8.3 mg/dL (8.5-10.1) Total Bilirubin 0.5 mg/dL (0.2-1.0) Aspartate Amino Transf (AST/SGOT) 49 U/L (15-37) Alanine Aminotransferase (ALT/SGPT) 34 U/L (16-63) Alkaline Phosphatase 99 U/L (46-116) Total Protein 6.2 g/dL (6.4-8.2) Albumin 1.6 g/dL (3.4-5.0) Albumin/Globulin Ratio 0.3 (1.0-1.7) Test 06/04/18 07:43 06/04/18 11:07 06/04/18 13:02 Glucose (Fingerstick) 106 mg/dL (70-99) 84 mg/dL (70-99) 87 mg/dL (70-99) Laboratory Tests Test 06/03/18 16:07 06/03/18 20:33 06/04/18 06:15 06/04/18 07:43 Glucose (Fingerstick) 139 mg/dL (70-99) 105 mg/dL (70-99) 106 mg/dL (70-99) White Blood Count 10.1 x10^3/uL (4.0-11.0) Red Blood Count 2.90 x10^6/uL (4.30-5.70) Hemoglobin 7.7 g/dL (13.0-17.5) Hematocrit 24.1 % (39.0-53.0) Mean Corpuscular Volume 83 fL (79-100) Mean Corpuscular Hemoglobin 26 pg (25-35) Mean Corpuscular Hemoglobin Concent 32 g/dL (31-37) Red Cell Distribution Width 16.1 % (11.5-14.5) Platelet Count 325 x10^3/uL (140-400) Neutrophils (%) (Auto) 77 % (31-73) Lymphocytes (%) (Auto) 9 % (24-48) Monocytes (%) (Auto) 9 % (0-9) Eosinophils (%) (Auto) 4 % (0-3) Basophils (%) (Auto) 1 % (0-3) Neutrophils # (Auto) 7.8 x10^3uL (1.8-7.7) Lymphocytes # (Auto) 0.9 x10^3/uL (1.0-4.8) Monocytes # (Auto) 0.9 x10^3/uL (0.0-1.1) Eosinophils # (Auto) 0.4 x10^3/uL (0.0-0.7) Basophils # (Auto) 0.1 x10^3/uL (0.0-0.2) Prothrombin Time 34.5 SEC (11.7-14.0) Prothromb Time International Ratio 3.4 (0.8-1.1) Sodium Level 138 mmol/L (136-145) Potassium Level 3.9 mmol/L (3.5-5.1) Chloride Level 104 mmol/L (98-107) Carbon Dioxide Level 26 mmol/L (21-32) Anion Gap 8 (6-14) Blood Urea Nitrogen 12 mg/dL (8-26) Creatinine 1.1 mg/dL (0.7-1.3) Estimated GFR (Cockcroft-Gault) 65.1 BUN/Creatinine Ratio 11 (6-20) Glucose Level 114 mg/dL (70-99) Calcium Level 8.3 mg/dL (8.5-10.1) Total Bilirubin 0.5 mg/dL (0.2-1.0) Aspartate Amino Transf (AST/SGOT) 49 U/L (15-37) Alanine Aminotransferase (ALT/SGPT) 34 U/L (16-63) Alkaline Phosphatase 99 U/L (46-116) Total Protein 6.2 g/dL (6.4-8.2) Albumin 1.6 g/dL (3.4-5.0) Albumin/Globulin Ratio 0.3 (1.0-1.7) Test 06/04/18 11:07 06/04/18 13:02 Glucose (Fingerstick) 84 mg/dL (70-99) 87 mg/dL (70-99) Microbiology 05/27/18 Blood Culture - Final, Complete NO GROWTH AFTER 5 DAYS 05/19/18 Urine Culture - Final, Complete 05/19/18 Urine Culture Result 1 (FELICITA) - Final, Complete 05/19/18 Anaerobic/Aerobic Culture - Final, Complete 05/19/18 Anaerobic Culture Result 1 (FELICITA) - Final, Complete 05/19/18 Aerobic Culture - Final, Complete 05/19/18 Aerobic Culture Result 1 (FELICITA) - Final, Complete 05/19/18 Aerobic Culture Result 2 (FELICITA) - Final, Complete 05/19/18 Antimicrobic Susceptibility - Final, Complete 05/19/18 Gram Stain - Final, Complete 05/19/18 Gram Stain Result 1 (FELICITA) - Final, Complete 05/19/18 Gram Stain Result 2 (FELICITA) - Final, Complete Medications Current Medications Sodium Chloride 1,000 ml @ 2,190 mls/hr Q28M IV Last administered on 05/18/18at 14:36; Start 05/18/18 at 12:52; Stop 05/18/18 at 13:52; Status DC Piperacillin Sod/ Tazobactam Sod 4.5 gm/Sodium Chloride 100 ml @ 200 mls/hr 1X ONCE IV Last administered on 05/18/18at 14:34; Start 05/18/18 at 13:00; Stop 05/18/18 at 13:29; Status DC Vancomycin HCl (Vanco Per Pharmacy) 1 each 1X ONCE MC Last administered on 05/18/18at 13:00; Start 05/18/18 at 13:00; Stop 05/18/18 at 13:11; Status DC Vancomycin HCl 2 gm/Sodium Chloride 500 ml @ 250 mls/hr 1X ONCE IV Last administered on 05/18/18at 15:28; Start 05/18/18 at 13:15; Stop 05/18/18 at 15:14; Status DC Ondansetron HCl (Zofran) 4 mg PRN Q8HRS PRN IV NAUSEA/VOMITING; Start 05/18/18 at 14:45; Stop 05/18/18 at 15:28; Status DC Fentanyl Citrate (Fentanyl 2ml Vial) 50 mcg PRN Q1HR PRN IV PAIN; Start 05/18 at 14:45; Stop 05/19/18 at 11:50; Status DC Sodium Chloride 1,000 ml @ 80 mls/hr [id number] IV ; Start 05/18/18 at 14:43; St op 05/18/18 at 18:42; Status DC Acetaminophen (Tylenol) 650 mg 1X ONCE PO Last administered on 05/18/18at 15:29; Start 05/18/18 at 15:30; Stop 05/18/18 at 15:31; Status DC Ondansetron HCl (Zofran) 4 mg PRN Q6HRS PRN IV NAUSEA/VOMITING Last administered on 05/24/18at 06:14; Start 05/18/18 at 15:30 Diltiazem HCl (Cardizem Iv Push) 10 mg 1X ONCE IVP ; Start 05/18/18 at 15:30; Stop 05/18/18 at 15:31; Status DC Acetaminophen (Tylenol) 500 mg PRN Q6HRS PRN PO MILD PAIN / TEMP; Start 05/18/18 at 15:30; Stop 05/18/18 at 16:14; Status DC Acetaminophen/ Codeine Phosphate (Tylenol #3) 1 tab PRN Q6HRS PRN PO MODERATE PAIN Last administered on 05/26/18at 21:56; Start 05/18/18 at 15:30 Morphine Sulfate (Morphine Sulfate) 2 mg PRN Q2HR PRN IV PAIN Last administered on 06/03/18 13:22; Start 05/18/18 at 15:30 Oxycodone/ Acetaminophen (Percocet 5/325) 1 tab PRN Q4HRS PRN PO SEVERE PAIN Last administered on 06/02/18at 19:11; Start 05/18/18 at 15:30 Albuterol Sulfate (Ventolin Hfa) 2 puff PRN Q6HRS PRN IH SHORTNESS OF BREATH; Start 05/18/18 at 15:30; Status UNV Digoxin (Lanoxin) 125 mcg DAILY PO ; Start 05/19/18 at 09:00; Stop 05/19/18 at 09:00; Status DC Furosemide (Lasix) 40 mg DAILY PO Last administered on 06/04/18 08:02; Start 05/19/18 at 09:00 Gabapentin (Neurontin) 300 mg DAILY PO Last administered on 06/04/18 08:02; Start 05/19/18 at 09:00 Lisinopril (Prinivil) 20 mg DAILY PO Last administered on 05/19/18at 10:14; Start 05/19/18 at 09:00; Stop 05/24/18 at 15:20; Status DC Metoprolol Tartrate (Lopressor) 50 mg BID PO Last administered on 06/04/18 08:04; Start 05/18/18 at 21:00 Oxycodone/ Acetaminophen (Percocet 10/325) 1 tab PRN Q6HRS PRN PO SEVERE PAIN (2ND Choice) Last administered on 06/01/18at 10:46; Start 05/18/18 at 15:30 Oxycodone/ Acetaminophen (Percocet 5/325) 1 tab PRN Q4HRS PRN PO PAIN; Start 05/18/18 at 15:30; Status UNV Acetaminophen (Tylenol) 500 mg PRN Q6HRS PRN PO MILD PAIN / TEMP Last administered on 05/27/18 23:35; Start 05/18/18 at 16:15 Atorvastatin Calcium (Lipitor) 80 mg QHS PO Last administered on 06/03/18 20:43; Start 05/18/18 at 21:00 Hydralazine HCl (Apresoline) 10 mg TID PO Last administered on 06/04/18 08:03; Start 05/18/18 at 16:00 Insulin Human Lispro (HumaLOG) 10 units DAILYWBKFT SQ Last administered on 05/23/18 08:58; Start 05/18/18 at 17:00; Stop 05/23/18 at 14:25; Status DC Levetiracetam (Keppra) 1,250 mg BID PO Last administered on 06/04/18 08:03; Start 05/18/18 at 21:00 Metformin HCl (Glucophage) 1,000 mg BIDWMEALS PO Last administered on 06/04/18 08:04; Start 05/18/18 at 17:00 Multivitamins (Thera M Plus) 1 tab DAILY PO Last administered on 06/04/18 08:02; Start 05/19/18 at 09:00 Potassium Chloride (Klor-Con) 20 meq DAILYWBKFT PO Last administered on 06/04/18 08:02; Start 05/19/18 at 08:00 Risperidone (RisperDAL) 1 mg QHS PO Last administered on 06/03/18 20:43; Start 05/18/18 at 21:00 Non-Formulary Medication (Rosuvastatin Calcium (Crestor)) 40 mg DAILY PO ; Start 05/19/18 at 09:00; Status UNV Zonisamide (Zonegran) 400 mg DAILY PO Last administered on 06/04/18 08:02; Start 05/19/18 at 09:00 Albuterol/ Ipratropium (Duoneb) 3 ml Q4HRS W/A NEB Last administered on 06/04/18 12:34; Start 05/18/18 at 18:00 Insulin Human Lispro (HumaLOG) 0-9 UNITS TIDWMEALS SQ Last administered on 05/26/18at 18:04; Start 05/18/18 at 17:00 Dextrose (Dextrose 50%-Water Syringe) 12.5 gm PRN Q15MIN PRN IV SEE COMMENTS Last administered on 05/25/18at 06:04; Start 05/18/18 at 15:30 Albuterol Sulfate (Ventolin Neb Soln) 2.5 mg PRN Q6HRS PRN NEB SHORTNESS OF BREATH Last administered on 05/26/18at 08:35; Start 05/18/18 at 15:45 Piperacillin Sod/ Tazobactam Sod 3.375 gm/Sodium Chloride 50 ml @ 100 mls/hr Q6HRS IV Last administered on 05/24/18at 05:33; Start 05/18/18 at 18:00; Stop 05/24/18 at 08:09; Status DC Potassium Chloride (Klor-Con) 40 meq 1X ONCE PO Last administered on 05/19/18at 10:14; Start 05/19/18 at 08:30; Stop 05/19/18 at 08:31; Status DC Heparin Sodium (Porcine) (Heparin Sodium) 5,000 unit Q8HRS SQ ; Start 05/19/18 at 14:00; Stop 05/19/18 at 14:00; Status DC Furosemide (Lasix) 40 mg 1X ONCE IVP Last administered on 05/19/18at 10:12; Start 05/19/18 at 08:45; Stop 05/19/18 at 08:46; Status DC Phytonadione (Vitamin K Ampule) 10 mg 1X ONCE SQ Last administered on 05/19/18at 10:16; Start 05/19/18 at 10:00; Stop 05/19/18 at 10:01; Status DC Vancomycin HCl (Vanco Per Pharmacy) 1 each PRN DAILY PRN MC SEE COMMENTS Last administered on 05/19/18at 10:32; Start 05/19/18 at 10:00; Stop 05/20/18 at 10:42; Status DC Phytonadione (Vitamin K Ampule) 10 mg 1X ONCE SQ ; Start 05/19/18 at 10:15; Stop 05/19/18 at 10:16; Status UNV Vancomycin HCl 1.75 gm/Sodium Chloride 500 ml @ 250 mls/hr Q24H IV Last admi nistered on 05/19/18at 16:59; Start 05/19/18 at 16:00; Stop 05/20/18 at 10:42; Status DC Vancomycin HCl (Vancomycin Trough Level) 1 each 1X ONCE MC ; Start 05/20/18 at 16:30; Stop 05/20/18 at 16:30; Status DC Acetaminophen (Tylenol Supp) 650 mg PRN Q6HRS PRN CO MILD PAIN / TEMP Last administered on 05/23/18at 23:33; Start 05/20/18 at 01:15 Sodium Chloride 500 ml @ 333 mls/hr 1X ONCE IV Last administered on 05/20/18at 01:14; Start 05/20/18 at 01:15; Stop 05/20/18 at 02:45; Status DC Phytonadione 5 mg/ Dextrose 50.5 ml @ 101 mls/hr 1X ONCE IV Last administered on 05/20/18at 10:08; Start 05/20/18 at 10:30; Stop 05/20/18 at 10:59; Status DC Daptomycin 590 mg/ Sodium Chloride 50 ml @ 100 mls/hr Q24H IV Last administered on 06/04/18at 11:56; Start 05/20/18 at 12:00 Ondansetron HCl (Zofran) 4 mg PRN Q6HRS PRN IV NAUSEA/VOMITING; Start 05/21/18 at 09:45; Stop 05/22/18 at 09:44; Status DC Fentanyl Citrate (Fentanyl 2ml Vial) 25 mcg PRN Q5MIN PRN IV MILD PAIN; Start 05/21/18 at 09:45; Stop 05/22/18 at 09:44; Status DC Fentanyl Citrate (Fentanyl 2ml Vial) 50 mcg PRN Q5MIN PRN IV MODERATE TO SEVERE PAIN; Start 05/21/18 at 09:45; Stop 05/22/18 at 09:44; Status DC Morphine Sulfate (Morphine Sulfate) 1 mg PRN Q10MIN PRN IV SEVERE PAIN; Start 05/21/18 at 09:45; Stop 05/22/18 at 09:44; Status DC Ringer's Solution 1,000 ml @ 30 mls/hr Q24H IV ; Start 05/21/18 at 09:39; Stop 05/22/18 at 00:37; Status DC Lidocaine HCl (Xylocaine-Mpf 1% 2ml Vial) 2 ml 1X PRN PRN ID IV START; Start 05/21/18 at 09:45; Stop 05/22/18 at 09:44; Status DC Hydromorphone HCl (Dilaudid) 0.5 mg PRN Q10MIN PRN IV SEV PAIN, Second choice; Start 05/21/18 at 09:45; Stop 05/22/18 at 09:44; Status DC Prochlorperazine Edisylate (Compazine) 5 mg PACU PRN PRN IV NAUSEA, MRX1; Start 05/21/18 at 09:45; Stop 05/22/18 at 09:44; Status DC Lidocaine HCl (Glydo (Lidocaine) Jelly) 1 vianney 1X ONCE MM ; Start 05/21/18 at 12:30; Stop 05/21/18 at 12:31; Status DC Propofol 20 ml @ As Directed STK-MED ONCE IV ; Start 05/21/18 at 12:27; Stop 05/21/18 at 12:28; Status DC Dexamethasone Sodium Phosphate (Decadron) 20 mg STK-MED ONCE .ROUTE ; Start 05/21/18 at 12:27; Stop 05/21/18 at 12:28; Status DC Famotidine (Pepcid Vial) 20 mg STK-MED ONCE .ROUTE ; Start 05/21/18 at 12:27; Stop 05/21/18 at 12:28; Status DC Lidocaine HCl (Lidocaine Pf 2% Vial) 5 ml STK-MED ONCE .ROUTE ; Start 05/21/18 at 12:27; Stop 05/21/18 at 12:28; Status DC Ondansetron HCl (Zofran) 4 mg STK-MED ONCE .ROUTE ; Start 05/21/18 at 12:27; Stop 05/21/18 at 12:28; Status DC Fentanyl Citrate (Fentanyl 2ml Vial) 100 mcg STK-MED ONCE .ROUTE ; Start 05/21/18 at 12:27; Stop 05/21/18 at 12:28; Status DC Bacitracin 83613 unit/Sodium Chloride 500 ml @ 500 mls/hr 1X ONCE IRR ; Start 05/21/18 at 12:40; Stop 05/21/18 at 13:39; Status DC Cefazolin Sodium 1 gm/Sodium Chloride 500 ml @ 500 mls/hr 1X ONCE IRR ; Start 05/21/18 at 12:40; Stop 05/21/18 at 13:39; Status DC Lidocaine HCl 20 ml STK-MED ONCE .ROUTE ; Start 05/21/18 at 11:42; Stop 05/21/18 at 12:42; Status DC Esmolol HCl (Brevibloc) 100 mg STK-MED ONCE IVP ; Start 05/21/18 at 13:01; Stop 05/21/18 at 13:02; Status DC Esmolol HCl (Brevibloc) 100 mg STK-MED ONCE IVP ; Start 05/21/18 at 14:22; Stop 05/21/18 at 14:23; Status DC Neomycin/ Polymyxin/ Bacitracin (Triple Antibiotic Ointment) 1 pkt STK-MED ONCE TP Last administered on 05/21/18at 14:41; Start 05/21/18 at 13:38; Stop 05/21/18 at 14:38; Status DC Sevoflurane (Ultane) 90 ml STK-MED ONCE IH ; Start 05/21/18 at 14:40; Stop 05/21/18 at 14:41; Status DC Naloxone HCl (Narcan) 0.4 mg PRN Q2MIN PRN IV SEE INSTRUCTIONS; Start 05/21/18 at 15:00 Sodium Chloride 1,000 ml @ 25 mls/hr Q24H IV ; Start 05/21/18 at 14:57; Stop 05/24/18 at 07:00; Status DC Morphine Sulfate 30 ml @ 0 mls/hr CONT PRN PRN IV PER PROTOCOL; Start 05/21/18 at 15:00 Labetalol HCl (Normodyne Iv Push) 20 mg PRN Q2HR PRN IVP HYPERTENSION, SEE COMMENTS Last administered on 05/24/18at 00:15; Start 05/21/18 at 15:30 Labetalol HCl (Normodyne Iv Push) 5 mg 1X PACU PRN IVP tachycardia and HTN Last administered on 05/21/18at 15:30; Start 05/21/18 at 15:30; Stop 05/22/18 at 09:09; Status DC Insulin Glargine (Lantus) 3 units 1X ONCE SQ Last administered on 05/21/18at 22:00; Start 05/21/18 at 22:00; Stop 05/22/18 at 01:31; Status DC Aspirin (Ecotrin) 81 mg DAILYWBKFT PO Last administered on 06/04/18at 08:03; Start 05/23/18 at 08:00 Digoxin (Lanoxin) 250 mcg 1X ONCE IV Last administered on 05/22/18at 12:28; Start 05/22/18 at 12:30; Stop 05/22/18 at 12:31; Status DC Warfarin Sodium (Coumadin) 6 mg DAILY16 PO ; Start 05/22/18 at 16:00; Stop 05/22/18 at 16:00; Status DC Warfarin Sodium (Coumadin) 2.5 mg 3X/WEEK PO ; Start 05/23/18 at 09:00; Status UNV Warfarin Sodium (Coumadin Per Physician) 1 each PRN DAILY PRN MC SEE COMMENTS; Start 05/22/18 at 14:45; Stop 05/22/18 at 14:57; Status DC Warfarin Sodium (Coumadin Per Pharmacy) 1 each PRN DAILY PRN MC SEE COMMENTS Last administered on 06/03/18at 15:48; Start 05/22/18 at 15:00 Warfarin Sodium (Coumadin) 4 mg 1X WARF ONCE PO Last administered on 05/22/18at 16:19; Start 05/22/18 at 16:00; Stop 05/22/18 at 16:01; Status DC Warfarin Sodium (Coumadin) 4 mg 1X WARF ONCE PO ; Start 05/23/18 at 16:00; Stop 05/23/18 at 16:01; Status DC Ringer's Solution 1,000 ml @ 75 mls/hr [id number] IV ; Start 05/23/18 at 13:45; Status Cancel Ringer's Solution 1,000 ml @ 75 mls/hr [id number] IV Last administered on 06/02/18at 13:17; Start 05/23/18 at 14:00; Stop 06/02/18 at 18:01; Status DC Insulin Human Lispro (HumaLOG) 7 units [id number] SQ ; Start 05/24/18 at 08:00; Stop 05/25/18 at 12:44; Status DC Dextrose (Dextrose 50%-Water Syringe) 25 gm 1X ONCE IV Last administered on 05/23/18 13:15; Start 05/23/18 at 17:45; Stop 05/23/18 at 17:46; Status DC Meropenem 500 mg/ Sodium Chloride 50 ml @ 100 mls/hr [id number] IV Last administered on 06/01/18 05:32; Start 05/24/18 at 12:00; Stop 06/01/18 at 09:46; Status DC Warfarin Sodium (Coumadin) 6 mg 1X WARF ONCE PO Last administered on 05/24/18 15:33; Start 05/24/18 at 16:00; Stop 05/24/18 at 16:01; Status DC Insulin Human Lispro (HumaLOG) 3 units DAILYWBKFT SQ Last administered on 06/04/18 08:06; Start 05/26/18 at 08:00 Warfarin Sodium (Coumadin) 6 mg 1X WARF ONCE PO Last administered on 05/25/18 16:04; Start 05/25/18 at 16:00; Stop 05/25/18 at 16:01; Status DC Polyethylene Glycol (miraLAX PACKET) 17 gm DAILY PO Last administered on 06/04/18 08:01; Start 05/26/18 at 14:00 Warfarin Sodium (Coumadin) 7.5 mg 1X WARF ONCE PO Last administered on 05/27/18 17:56; Start 05/27/18 at 16:00; Stop 05/27/18 at 16:01; Status DC Micafungin Sodium 100 mg/Dextrose 100 ml @ 100 mls/hr Q24H IV Last administered on 06/03/18 12:02; Start 05/27/18 at 12:00; Stop 06/04/18 at 09:49; Status DC Warfarin Sodium (Coumadin) 6 mg 1X WARF ONCE PO Last administered on 05/28/18 17:32; Start 05/28/18 at 16:00; Stop 05/28/18 at 16:01; Status DC Ascorbic Acid (Vitamin C) 500 mg DAILY PO Last administered on 06/04/18 08:02; Start 05/28/18 at 16:00 Warfarin Sodium (Coumadin) 6 mg 1X WARF ONCE PO Last administered on 05/29/18 17:04; Start 05/29/18 at 16:00; Stop 05/29/18 at 16:01; Status DC Warfarin Sodium (Coumadin) 6 mg 1X WARF ONCE PO Last administered on 05/30/18 15:29; Start 05/30/18 at 16:00; Stop 05/30/18 at 16:01; Status DC Lidocaine/Sodium Bicarbonate (Buffered Lidocaine 1%) 3 ml STK-MED ONCE .ROUTE ; Start 05/30/18 at 13:48; Stop 05/30/18 at 13:49; Status DC Warfarin Sodium (Coumadin) 6 mg 1X WARF ONCE PO Last administered on 05/31/18 17:23; Start 05/31/18 at 16:00; Stop 05/31/18 at 16:01; Status DC Warfarin Sodium (Coumadin) 3 mg 1X WARF ONCE PO Last administered on 06/01/18at 16:14; Start 06/01/18 at 16:00; Stop 06/01/18 at 16:01; Status DC Vitamin A/Vitamin D (Vitamin A & D Ointment) 1 vianney BID TP Last administered on 06/04/18 08:01; Start 06/01/18 at 21:00 Phenyleph/Shark Oil/Min Oil/Petrol (Preparation H) 1 vianney TID RC Last administered on 06/04/18 08:01; Start 06/02/18 at 14:00 Alteplase, Recombinant (Cathflo For Central Catheter Clearance) 1 mg 1X ONCE INT CAT Last administered on 06/02/18 13:16; Start 06/02/18 at 12:15; Stop 06/02/18 at 12:16; Status DC Warfarin Sodium (Coumadin - No Dose Today) 1 each 1X WARF ONCE MC Last administered on 06/02/18 16:00; Start 06/02/18 at 16:00; Stop 06/02/18 at 16:01; Status DC Sodium Chloride 1,000 ml @ 1,000 mls/hr 1X ONCE IV Last administered on 06/03/18at 10:44; Start 06/03/18 at 10:30; Stop 06/03/18 at 11:29; Status DC Warfarin Sodium (Coumadin) 1 mg 1X WARF ONCE PO Last administered on 06/03/18at 17:36; Start 06/03/18 at 16:00; Stop 06/03/18 at 16:01; Status DC Active Scripts Active Digoxin 125 Mcg Tablet 125 Mcg PO DAILY Furosemide 40 Mg Tablet 40 Mg PO DAILY Metoprolol Tartrate 50 Mg Tablet 50 Mg PO BID [Warfarin Sodium] 1 EACH Each 1 Each MC PRN DAILY PRN Lisinopril 20 Mg Tablet 20 Mg PO DAILY Duoneb 0.5-3(2.5) Mg/3 Ml (Albuterol/Ipratropium) 3 Ml Ampul.neb 3 Ml NEB Q4HRS W/A 30 Days Hydralazine Hcl 10 Mg Tablet 10 Mg PO TID Reported Zonisamide 100 Mg Capsule 400 Mg PO DAILY Percocet 5-325 Mg Tablet (Oxycodone/Acetaminophen) 1 Each Tablet 1 Tab PO PRN Q4HRS PRN Multivitamins (Multivitamin) 1 Each Tablet 1 Tab PO DAILY Levetiracetam 250 Mg Tablet 1,250 Mg PO BID Novolin N (Nph, Human Insulin Isophane) 100 Unit/1 Ml Vial Unknown Dose SQ Atorvastatin Calcium 80 Mg Tablet 1 Tab PO DAILY Acetaminophen 500 Mg Tablet 1 Tab PO PRN Q6HRS PRN Albuterol Sulfate Hfa Inhaler (Albuterol Sulfate) 8.5 Gm Hfa.aer.ad 2 Puff IH PRN Q6HRS PRN Aspirin Ec (Aspirin) 325 Mg Tablet.dr 81 Mg PO DAILY Crestor (Rosuvastatin Calcium) 40 Mg Tablet 40 Mg PO DAILY Warfarin Sodium 5 Mg Tablet 6 Mg PO DAILY Warfarin Sodium 2.5 Mg Tablet 2.5 Mg PO 3X/WEEK monday,monday, Gabapentin (Gabapentin) 300 Mg Capsule 300 Mg PO DAILY Risperidone 1 Mg Tablet 1 Mg PO HS Novolog (Insulin Aspart) 100 Unit/1 Ml Vial 10 Unit SQ DAILYAC Oxycodone-Acetaminophen 10-325 (Oxycodone Hcl/Acetaminophen) 1 Each Tablet 1 Each PO PRN Q6HRS Potassium 99 Mg Tablet 20 Meq PO DAILY Prednisone (Prednisone) 10 Mg Tablet 10 Mg PO DAILY Metformin Hcl 500 Mg Tablet 1,000 Mg PO BIDBFRMEAL Vitals/I & O Vital Sign - Last 24 Hours 06/03/18 06/03/18 06/03/18 06/03/18 13:22 13:52 14:46 15:00 Temp 98.1 98.1 Pulse 64 71 Resp 18 B/P (MAP) 123/51 122/51 (74) Pulse Ox 95 100 O2 Delivery Room Air Room Air Room Air O2 Flow Rate 2.0 06/03/18 06/03/18 06/03/18 06/03/18 16:48 19:00 19:15 20:00 Temp 99.1 99.1 Pulse 71 Resp 18 B/P (MAP) 136/53 (80) Pulse Ox 95 O2 Delivery Room Air Room Air Room Air Room Air 06/03/18 06/03/18 06/03/18 06/04/18 20:42 20:43 23:00 03:00 Temp 100.3 99.9 100.3 99.9 Pulse 71 71 78 63 Resp 20 18 B/P (MAP) 136/53 136/53 159/69 (99) 139/40 (73) Pulse Ox 97 94 O2 Delivery Room Air Room Air 06/04/18 06/04/18 06/04/18 06/04/18 07:00 08:00 08:03 08:04 Temp 98.6 98.6 Pulse 106 106 106 Resp 18 B/P (MAP) 143/63 (89) 143/63 143/63 Pulse Ox 98 O2 Delivery Room Air Room Air O2 Flow Rate 2.0 06/04/18 06/04/18 06/04/18 09:03 11:00 12:35 Temp 99.2 99.2 Pulse 64 B/P (MAP) 125/36 (65) Pulse Ox 98 92 93 O2 Delivery Nasal Cannula Nasal Cannula Room Air O2 Flow Rate 2.0 2.0 Intake and Output 06/03/18 06/03/18 06/04/18 15:00 23:00 07:00 Intake Total 750 ml 280 ml Output Total 900 ml 1150 ml 400 ml Balance -150 ml -1150 ml -120 ml Nutrition Consultation Dietary Evaluation: Recommendations by RD: Increase Calorie Intake, Protein supplementation Comments: Continue diet per HIDE PULLER with ADA/cardiac diet restrictions per pmhx, can liberalize as needed to provide foods that pt likes change Glucerna TID (chocolate) to ita ensure pudding tid Continue MVI and Vit C (500 mg BID) Expected Outcomes/Goals: PO intake to meet >75% est needs - not met, goal ongoing Malnutrition Findings: Food and Nutrition Intake (Mod: <75% est energy req 7days Weight Status: Obese ZAK MENDEZ MD Jun 04, 2018 13:19
--- NOTE | 2018-06-04 13:48 | NUR ---
Pharmacy Warfarin Dosing Note S:Pharmacy consulted to assist with anticoagulation therapy started with target INR: 2 -3 O:VICKI BRAUN is a 78 year old M with Atrial Fibrillation Bioprosthetic Valve LABS: Last INR: 3.4 Last HGB: 7.7 Last HCT: 24.1 Last PLT: 325 Last dose of Hold given on 06/03/18 at 1529 Previous Regimen: 4mg/day except 2 mg Sat/Sun Vitamin K given: Y 05/19: 10 MG SUB-Q, 05/20: 5 MG IV Drug Interaction Changes: New Interacting Drug Ongoing Drug Interactions: Zosyn A:INR of 3.4 is above desired range. Target range for this patient is: 2 -3 P: Warfarin dose: Hold Today at 1600 Bridge Therapy: None Next INR due 06/05/18 Pharmacy anticoagulation service will continue to follow. MATT FAYE RPH, 06/04/18 [id number]
[2018-06-04 15:00] VITALS: BP 135/71
[2018-06-04] MEDS: oxyCODONE/APAP 10/325 1 TAB TABLET PO PRN ×2 (15:12→20:38)
[2018-06-04 19:00] VITALS: BP 134/45
[2018-06-04] MEDS: risperiDONE 1 MG TABLET. PO SCH (20:40)
[2018-06-04] MEDS: ATORVASTATIN CALCIUM 40 MG TABLET. PO SCH (20:40)
[2018-06-04 22:58] VITALS: BP 124/40
[2018-06-05 03:00] VITALS: BP 113/56
[2018-06-05 07:00] VITALS: BP 119/42
[2018-06-05] MEDS: ASPIRIN ENTERIC COATED 81 MG TABLET.DR. PO SCH (08:00)
[2018-06-05] MEDS: INSULIN LISPRO 300 UNITS/3 ML INSULN.PEN. SQ SCH ×4 (08:00→17:00)
[2018-06-05] MEDS: IPRATRPIUM/ALBUTEROL 0.5/2.5MG 3 ML NEBU. NEB SCH ×5 (08:22→19:22)
[2018-06-05] MEDS: MULTIVITAMIN with MINERAL TABLET. PO SCH (09:21)
[2018-06-05] MEDS: FUROSEMIDE 40 MG TABLET. PO SCH (09:22)
[2018-06-05] MEDS: ASCORBIC ACID 500 MG TABLET PO SCH (09:22)
[2018-06-05] MEDS: hydrALAZINE 10 MG TABLET PO SCH ×3 (09:23→21:01)
[2018-06-05] MEDS: GABAPENTIN 300 MG CAPSULE. PO SCH (09:24)
[2018-06-05] MEDS: POLYETHYLENE GLYCOL 3350 17 GM PACKET. PO SCH (09:24)
[2018-06-05] MEDS: METOPROLOL TART IMMED RELEASE 50 MG TABLET. PO SCH ×2 (09:24→21:00)
[2018-06-05] MEDS: POTASSIUM CHLORIDE 20 MEQ TABLET.ER. PO SCH (09:25)
[2018-06-05] MEDS: metFORMIN 500 MG TABLET PO SCH ×2 (09:26→17:00)
[2018-06-05] MEDS: levETIRAcetam 250 MG TABLET PO SCH ×2 (09:26→20:59)
[2018-06-05] MEDS: ZONISAMIDE 100 MG CAPSULE. PO SCH (09:27)
[2018-06-05] MEDS: PHENYLEPH/MINERAL OIL/PETROLAT RECTAL OINTMENT 28GM TUBE. RC SCH ×3 (09:31→21:00)
[2018-06-05] MEDS: VITS A & D/LANOLIN TOPICAL OINTMENT 56GM TUBE. TP SCH ×2 (09:32→21:00)
[2018-06-05] MEDS: oxyCODONE/APAP 10/325 1 TAB TABLET PO PRN (09:37)
[2018-06-05 10:19] LABS: PROTHROMBIN TIME PATIENT 32.8 SEC (11.7-14.0)
[2018-06-05 11:00] VITALS: BP 139/49
[2018-06-05] MEDS: DAPTOmycin (GENERIC) IVPB 590 MG in IV NORMAL SALINE 50ML 50 ML IV SCH (12:00)
--- NOTE | 2018-06-05 14:15 | NUR ---
Pharmacy Warfarin Dosing Note S:Pharmacy consulted to assist with anticoagulation therapy started with target INR: 2 -3 O:VICKI BRAUN is a 78 year old M with Atrial Fibrillation Bioprosthetic Valve LABS: Last INR: 3.2 Last HGB: 7.7 Last HCT: 24.1 Last PLT: 325 Last dose of Hold given on 06/04/18 at 1529 Previous Regimen: 4mg/day except 2 mg Sat/Sun Vitamin K given: Y 05/19: 10 MG SUB-Q, 05/20: 5 MG IV Drug Interaction Changes: New Interacting Drug Ongoing Drug Interactions: Zosyn A:INR of 3.2 is above desired range. Target range for this patient is: 2 -3 P: Warfarin dose: Hold Today at 1600 Bridge Therapy: None Next INR due 06/06/18 Pharmacy anticoagulation service will continue to follow. MATT FAYE RPH, 06/05/18 [id number]
--- NOTE | 2018-06-05 14:22 | PDOC ---
Infectious Disease Note Subjective Subjective pt is feeling good, wants to go home ( not SNF ) ROS ROS no n/v/d/ Vital Sign Vital Signs Vital Signs Date Time Temp Pulse Resp B/P (MAP) Pulse Ox O2 Delivery O2 Flow Rate FiO2 06/05/18 12:14 94 Room Air 06/05/18 11:00 97.5 61 14 139/49 (79) 2.0 97.5 Physical Exam PHYSICAL EXAM GEN: Lying down, opens eyes to voice HEENT: Normal conjunctivae. Oral cavity, pharynx pink, dry NECK: Supple. LUNGS: Clear anteriorly HEART: S1 and S2, soft murmur. ABDOMEN: Obese, soft and non tender with bowel sounds present. GENITOURINARY: Indwelling Crawley in place. EXTREMITIES: Right BKA incision well approx w/ matti, clean Left ankle wound, no bone exposure or area redness SKIN: Warm without rash. Several tattoos. NEUROLOGIC: Arouses to name, attention span decreased, drowsy PICC RUE - clean Labs Lab Laboratory Tests Test 06/04/18 16:53 06/04/18 20:38 06/05/18 07:12 06/05/18 10:00 Glucose (Fingerstick) 94 mg/dL (70-99) 114 mg/dL (70-99) 125 mg/dL (70-99) Prothrombin Time 32.8 SEC (11.7-14.0) Prothromb Time International Ratio 3.2 (0.8-1.1) Test 06/05/18 11:30 Glucose (Fingerstick) 94 mg/dL (70-99) Objective Assessment Fevers better overall. repeat UA and BC from 05/24 neg so far Leukocytosis - better Constipation ? cholecystitis - non tender better MRSA bacteremia (4 of 4 bottles) with sepsis, POA source possible foot infection- Dapto sensitive 05/18 -CRYSTAL done no vegetations 05/21; BC from 05/20 & 05/21 neg Infected necrotic ulcer left ankle s/p I and D 05/21. MRSA and Enterobacter ( R Augmentin/cefuroxime) - no exposed bone. 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 Severe PAD s/p BLE stents and previous toe amputations Bioprosthetic aortic valve Renal insufficiency/JIMMY - better Encephalopathy - improved but still some confusion Coagulopathy, on chronic warfarin A- fib RVR Diabetes Type II h/o PSA ( R quinolones & I imipenem) h/o group B strep bacteremia, 2016 Plan Plan of Care Cont Dapto (susceptible 05/18)- 6 weeks = July 02 (last CPK 05/31 was 218) Monitor labs CK/CMP/CBC with diff Q Monday while on Daptomycin Local wound care and offloading left ankle wound is not infected, but it is on lat malleolus, and the way his foot rotates and sits on it , likely will get worse D/w nursing f/u with us in 2 wks wkly cbc, bun/cr, sed rate, cpk , fax to [phone] DAYANA CATES MD Jun 05, 2018 14:22
--- NOTE | 2018-06-05 16:37 | NUR ---
SW following pt. Insurance has denied SNU.
[2018-06-05 19:00] VITALS: BP 130/48
--- NOTE | 2018-06-05 19:58 | PDOC ---
PROGRESS NOTES Chief Complaint Chief Complaint Severe sepsis cellulitis w/ gangrenous toes MRSA bacteremia (4 of 4 bottles) with sepsis, POA source //foot infection post Right below-knee amputation -CRYSTAL done no vegetations 05/21; BC from 05/20 & 05/21 neg A. 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 A neoplastic etiology cannot be excluded and CT follow-up may be prudent. Small bilateral pleural effusions with mild bibasilar atelectasis. Distended gallbladder containing material of medium density. This may represent sludge Cont Dapto (susceptible 05/18)- 6 weeks = Jul 02 2018 History of Present Illness History of Present Illness I asked for Peer to Peer for SNU today, when reviewing notes, the quality engineer medical device noted that patient did not participate at times with PT and in those notes had great difficulty awakening, I decrribed the fluctuations in status daily, and we discussed, we can re apply for SNU soon cont current other, still will need 4 weeks of IV abx for treatment plan ID following Christine would like to continue with aggressive tx. including treatment of infections. PT/OT Vitals Vitals Vital Signs Date Time Temp Pulse Resp B/P (MAP) Pulse Ox O2 Delivery O2 Flow Rate FiO2 06/05/18 19:24 99 Nasal Cannula 3.0 06/05/18 11:00 97.5 61 14 139/49 (79) 97.5 Physical Exam Physical Exam GEN: Lying down, talkative HEENT: Normal conjunctivae. Oral cavity, pharynx pink, dry NECK: Supple. LUNGS: Clear anteriorly HEART: S1 and S2, soft murmur. ABDOMEN: Obese, soft and non tender with bowel sounds present. GENITOURINARY: Indwelling Crawley in place. EXTREMITIES: Right BKA incision well approx w/ matti, clean Left ankle wou nd, no bone exposure or area redness SKIN: Warm without rash. Several tattoos. NEUROLOGIC: Arouses to name follows commands PICC RUE - clean 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 right, chronic hyperpigmentation bilateral shins and foot) Labs LABS Laboratory Tests Test 06/04/18 20:38 06/05/18 07:12 06/05/18 10:00 06/05/18 11:30 Glucose (Fingerstick) 114 mg/dL (70-99) 125 mg/dL (70-99) 94 mg/dL (70-99) Prothrombin Time 32.8 SEC (11.7-14.0) Prothromb Time International Ratio 3.2 (0.8-1.1) Test 06/05/18 16:44 06/05/18 19:31 Glucose (Fingerstick) 115 mg/dL (70-99) 109 mg/dL (70-99) Assessment and Plan Assessmemt and Plan Problems Medical Problems: (1) Fever Status: Acute (2) Gangrene of toe Status: Acute (3) Leukocytosis Status: Acute (4) Severe sepsis Status: Acute Comment Review of Relevant I have reviewed the following items navi (where applicable) has been applied. Labs Laboratory Tests Test 06/03/18 20:33 06/04/18 06:15 06/04/18 07:43 06/04/18 11:07 Glucose (Fingerstick) 105 mg/dL (70-99) 106 mg/dL (70-99) 84 mg/dL (70-99) White Blood Count 10.1 x10^3/uL (4.0-11.0) Red Blood Count 2.90 x10^6/uL (4.30-5.70) Hemoglobin 7.7 g/dL (13.0-17.5) Hematocrit 24.1 % (39.0-53.0) Mean Corpuscular Volume 83 fL (79-100) Mean Corpuscular Hemoglobin 26 pg (25-35) Mean Corpuscular Hemoglobin Concent 32 g/dL (31-37) Red Cell Distribution Width 16.1 % (11.5-14.5) Platelet Count 325 x10^3/uL (140-400) Neutrophils (%) (Auto) 77 % (31-73) Lymphocytes (%) (Auto) 9 % (24-48) Monocytes (%) (Auto) 9 % (0-9) Eosinophils (%) (Auto) 4 % (0-3) Basophils (%) (Auto) 1 % (0-3) Neutrophils # (Auto) 7.8 x10^3uL (1.8-7.7) Lymphocytes # (Auto) 0.9 x10^3/uL (1.0-4.8) Monocytes # (Auto) 0.9 x10^3/uL (0.0-1.1) Eosinophils # (Auto) 0.4 x10^3/uL (0.0-0.7) Basophils # (Auto) 0.1 x10^3/uL (0.0-0.2) Prothrombin Time 34.5 SEC (11.7-14.0) Prothromb Time International Ratio 3.4 (0.8-1.1) Sodium Level 138 mmol/L (136-145) Potassium Level 3.9 mmol/L (3.5-5.1) Chloride Level 104 mmol/L (98-107) Carbon Dioxide Level 26 mmol/L (21-32) Anion Gap 8 (6-14) Blood Urea Nitrogen 12 mg/dL (8-26) Creatinine 1.1 mg/dL (0.7-1.3) Estimated GFR (Cockcroft-Gault) 65.1 BUN/Creatinine Ratio 11 (6-20) Glucose Level 114 mg/dL (70-99) Calcium Level 8.3 mg/dL (8.5-10.1) Total Bilirubin 0.5 mg/dL (0.2-1.0) Aspartate Amino Transf (AST/SGOT) 49 U/L (15-37) Alanine Aminotransferase (ALT/SGPT) 34 U/L (16-63) Alkaline Phosphatase 99 U/L (46-116) Total Protein 6.2 g/dL (6.4-8.2) Albumin 1.6 g/dL (3.4-5.0) Albumin/Globulin Ratio 0.3 (1.0-1.7) Test 06/04/18 13:02 06/04/18 16:53 06/04/18 20:38 06/05/18 07:12 Glucose (Fingerstick) 87 mg/dL (70-99) 94 mg/dL (70-99) 114 mg/dL (70-99) 125 mg/dL (70-99) Test 06/05/18 10:00 06/05/18 11:30 06/05/18 16:44 06/05/18 19:31 Prothrombin Time 32.8 SEC (11.7-14.0) Prothromb Time International Ratio 3.2 (0.8-1.1) Glucose (Fingerstick) 94 mg/dL (70-99) 115 mg/dL (70-99) 109 mg/dL (70-99) Laboratory Tests Test 06/04/18 20:38 06/05/18 07:12 06/05/18 10:00 06/05/18 11:30 Glucose (Fingerstick) 114 mg/dL (70-99) 125 mg/dL (70-99) 94 mg/dL (70-99) Prothrombin Time 32.8 SEC (11.7-14.0) Prothromb Time International Ratio 3.2 (0.8-1.1) Test 06/05/18 16:44 06/05/18 19:31 Glucose (Fingerstick) 115 mg/dL (70-99) 109 mg/dL (70-99) Microbiology 05/27/18 Blood Culture - Final, Complete NO GROWTH AFTER 5 DAYS 05/19/18 Urine Culture - Final, Complete 05/19/18 Urine Culture Result 1 (FELICITA) - Final, Complete 05/19/18 Anaerobic/Aerobic Culture - Final, Complete 05/19/18 Anaerobic Culture Result 1 (FELICITA) - Final, Complete 05/19/18 Aerobic Culture - Final, Complete 05/19/18 Aerobic Culture Result 1 (FELICITA) - Final, Complete 05/19/18 Aerobic Culture Result 2 (FELICITA) - Final, Complete 05/19/18 Antimicrobic Susceptibility - Final, Complete 05/19/18 Gram Stain - Final, Complete 05/19/18 Gram Stain Result 1 (FELICITA) - Final, Complete 05/19/18 Gram Stain Result 2 (FELICITA) - Final, Complete Medications Current Medications Sodium Chloride 1,000 ml @ 2,190 mls/hr Q28M IV Last administered on 05/18/18at 14:36; Start 05/18/18 at 12:52; Stop 05/18/18 at 13:52; Status DC Piperacillin Sod/ Tazobactam Sod 4.5 gm/Sodium Chloride 100 ml @ 200 mls/hr 1X ONCE IV Last administered on 05/18/18at 14:34; Start 05/18/18 at 13:00; Stop 05/18/18 at 13:29; Status DC Vancomycin HCl (Vanco Per Pharmacy) 1 each 1X ONCE MC Last administered on 05/18/18at 13:00; Start 05/18/18 at 13:00; Stop 05/18/18 at 13:11; Status DC Vancomycin HCl 2 gm/Sodium Chloride 500 ml @ 250 mls/hr 1X ONCE IV Last administered on 05/18/18at 15:28; Start 05/18/18 at 13:15; Stop 05/18/18 at 15:14; Status DC Ondansetron HCl (Zofran) 4 mg PRN Q8HRS PRN IV NAUSEA/VOMITING; Start 05/18/18 at 14:45; Stop 05/18/18 at 15:28; Status DC Fentanyl Citrate (Fentanyl 2ml Vial) 50 mcg PRN Q1HR PRN IV PAIN; Start 05/18/18 at 14:45; Stop 05/19/18 at 11:50; Status DC Sodium Chloride 1,000 ml @ 80 mls/hr [id number] IV ; Start 05/18/18 at 14:43; Stop 05/18/18 at 18:42; Status DC Acetaminophen (Tylenol) 650 mg 1X ONCE PO Last administered on 05/18/18at 15:29; Start 05/18/18 at 15:30; Stop 05/18/18 at 15:31; Status DC Ondansetron HCl (Zofran) 4 mg PRN Q6HRS PRN IV NAUSEA/VOMITING Last administered on 05/24/18at 06:14; Start 05/18/18 at 15:30 Diltiazem HCl (Cardizem Iv Push) 10 mg 1X ONCE IVP ; Start 05/18/18 at 15:30; Stop 05/18/18 at 15:31; Status DC Acetaminophen (Tylenol) 500 mg PRN Q6HRS PRN PO MILD PAIN / TEMP; Start 05/18/18 at 15:30; Stop 05/18/18 at 16:14; Status DC Acetaminophen/ Codeine Phosphate (Tylenol #3) 1 tab PRN Q6HRS PRN PO MODERATE PAIN Last administered on 05/26/18 21:56; Start 05/18/18 at 15:30 Morphine Sulfate (Morphine Sulfate) 2 mg PRN Q2HR PRN IV PAIN Last administered on 06/03/18 13:22; Start 05/18/18 at 15:30 Oxycodone/ Acetaminophen (Percocet 5/325) 1 tab PRN Q4HRS PRN PO SEVERE PAIN Last administered on 06/02/18 19:11; Start 05/18/18 at 15:30 Albuterol Sulfate (Ventolin Hfa) 2 puff PRN Q6HRS PRN IH SHORTNESS OF BREATH; Start 05/18/18 at 15:30; Status UNV Digoxin (Lanoxin) 125 mcg DAILY PO ; Start 05/19/18 at 09:00; Stop 05/19/18 at 09:00; Status DC Furosemide (Lasix) 40 mg DAILY PO Last administered on 06/05/18 09:22; Start 05/19/18 at 09:00 Gabapentin (Neurontin) 300 mg DAILY PO Last administered on 06/05/18 09:24; Start 05/19/18 at 09:00 Lisinopril (Prinivil) 20 mg DAILY PO Last administered on 05/19/18 10:14; Start 05/19/18 at 09:00; Stop 05/24/18 at 15:20; Status DC Metoprolol Tartrate (Lopressor) 50 mg BID PO Last administered on 06/05/18 09:24; Start 05/18/18 at 21:00 Oxycodone/ Acetaminophen (Percocet 10/325) 1 tab PRN Q6HRS PRN PO SEVERE PAIN (2ND Choice) Last administered on 06/05/18 09:37; Start 05/18/18 at 15:30 Oxycodone/ Acetaminophen (Percocet 5/325) 1 tab PRN Q4HRS PRN PO PAIN; Start 05/18/18 at 15:30; Status UNV Acetaminophen (Tylenol) 500 mg PRN Q6HRS PRN PO MILD PAIN / TEMP Last admini stered on 05/27/18 23:35; Start 05/18/18 at 16:15 Atorvastatin Calcium (Lipitor) 80 mg QHS PO Last administered on 06/04/18 2 0:40; Start 05/18/18 at 21:00 Hydralazine HCl (Apresoline) 10 mg TID PO Last administered on 06/05/18 09:23; Start 05/18/18 at 16:00 Insulin Human Lispro (HumaLOG) 10 units DAILYWBKFT SQ Last administered on 05/23/18 08:58; Start 05/18/18 at 17:00; Stop 05/23/18 at 14:25; Status DC Levetiracetam (Keppra) 1,250 mg BID PO Last administered on 06/05/18 09:26; Start 05/18/18 at 21:00 Metformin HCl (Glucophage) 1,000 mg BIDWMEALS PO Last administered on 06/05/18 09:26; Start 05/18/18 at 17:00 Multivitamins (Thera M Plus) 1 tab DAILY PO Last administered on 06/05/18 09:21; Start 05/19/18 at 09:00 Potassium Chloride (Klor-Con) 20 meq DAILYWBKFT PO Last administered on 06/05/18 09:25; Start 05/19/18 at 08:00 Risperidone (RisperDAL) 1 mg QHS PO Last administered on 06/04/18 20:40; Start 05/18/18 at 21:00 Non-Formulary Medication (Rosuvastatin Calcium (Crestor)) 40 mg DAILY PO ; Start 05/19/18 at 09:00; Status UNV Zonisamide (Zonegran) 400 mg DAILY PO Last administered on 06/05/18 09:27; Start 05/19/18 at 09:00 Albuterol/ Ipratropium (Duoneb) 3 ml Q4HRS W/A NEB Last administered on 06/05/18 19:22; Start 05/18/18 at 18:00 Insulin Human Lispro (HumaLOG) 0-9 UNITS TIDWMEALS SQ Last administered on 05/26/18 18:04; Start 05/18/18 at 17:00 Dextrose (Dextrose 50%-Water Syringe) 12.5 gm PRN Q15MIN PRN IV SEE COMMENTS Last administered on 4/19/19at 06:04; Start 05/18/18 at 15:30 Albuterol Sulfate (Ventolin Neb Soln) 2.5 mg PRN Q6HRS PRN NEB SHORTNESS OF BREATH Last administered on 05/26/18at 08:35; Start 05/18/18 at 15:45 Piperacillin Sod/ Tazobactam Sod 3.375 gm/Sodium Chloride 50 ml @ 100 mls/hr Q6HRS IV Last administered on 05/24/18at 05:33; Start 05/18/18 at 18:00; Stop 05/24/18 at 08:09; Status DC Potassium Chloride (Klor-Con) 40 meq 1X ONCE PO Last administered on 05/19/18at 10:14; Start 05/19/18 at 08:30; Stop 05/19/18 at 08:31; Status DC Heparin Sodium (Porcine) (Heparin Sodium) 5,000 unit Q8HRS SQ ; Start 05/19/18 at 14:00; Stop 05/19/18 at 14:00; Status DC Furosemide (Lasix) 40 mg 1X ONCE IVP Last administered on 05/19/18at 10:12; Start 05/19/18 at 08:45; Stop 05/19/18 at 08:46; Status DC Phytonadione (Vitamin K Ampule) 10 mg 1X ONCE SQ Last administered on 05/19/18at 10:16; Start 05/19/18 at 10:00; Stop 05/19/18 at 10:01; Status DC Vancomycin HCl (Vanco Per Pharmacy) 1 each PRN DAILY PRN MC SEE COMMENTS Last administered on 05/19/18at 10:32; Start 05/19/18 at 10:00; Stop 05/20/18 at 10:42; Status DC Phytonadione (Vitamin K Ampule) 10 mg 1X ONCE SQ ; Start 05/19/18 at 10:15; Stop 05/19/18 at 10:16; Status UNV Vancomycin HCl 1.75 gm/Sodium Chloride 500 ml @ 250 mls/hr Q24H IV Last administered on 05/19/18at 16:59; Start 05/19/18 at 16:00; Stop 05/20/18 at 10:42; Status DC Vancomycin HCl (Vancomycin Trough Level) 1 each 1X ONCE MC ; Start 05/20/18 at 16:30; Stop 05/20/18 at 16:30; Status DC Acetaminophen (Tylenol Supp) 650 mg PRN Q6HRS PRN WA MILD PAIN / TEMP Last administered on 05/23/18at 23:33; Start 05/20/18 at 01:15 Sodium Chloride 500 ml @ 333 mls/hr 1X ONCE IV Last administered on 05/20/18at 01:14; Start 05/20/18 at 01:15; Stop 05/20/18 at 02:45; Status DC Phytonadione 5 mg/ Dextrose 50.5 ml @ 101 mls/hr 1X ONCE IV Last administered on 05/20/18at 10:08; Start 05/20/18 at 10:30; Stop 05/20/18 at 10:59; Status DC Daptomycin 590 mg/ Sodium Chloride 50 ml @ 100 mls/hr Q24H IV Last administered on 06/04/18at 11:56; Start 05/20/18 at 12:00 Ondansetron HCl (Zofran) 4 mg PRN Q6HRS PRN IV NAUSEA/VOMITING; Start 05/21/18 at 09:45; Stop 05/22/18 at 09:44; Status DC Fentanyl Citrate (Fentanyl 2ml Vial) 25 mcg PRN Q5MIN PRN IV MILD PAIN; Start 05/21/18 at 09:45; Stop 05/22/18 at 09:44; Status DC Fentanyl Citrate (Fentanyl 2ml Vial) 50 mcg PRN Q5MIN PRN IV MODERATE TO SEVERE PAIN; Start 05/21/18 at 09:45; Stop 05/22/18 at 09:44; Status DC Morphine Sulfate (Morphine Sulfate) 1 mg PRN Q10MIN PRN IV SEVERE PAIN; Start 05/21/18 at 09:45; Stop 05/22/18 at 09:44; Status DC Ringer's Solution 1,000 ml @ 30 mls/hr Q24H IV ; Start 05/21/18 at 09:39; Stop 05/22/18 at 00:37; Status DC Lidocaine HCl (Xylocaine-Mpf 1% 2ml Vial) 2 ml 1X PRN PRN ID IV START; Start 05/21/18 at 09:45; Stop 05/22/18 at 09:44; Status DC Hydromorphone HCl (Dilaudid) 0.5 mg PRN Q10MIN PRN IV SEV PAIN, Second choice; Start 05/21/18 at 09:45; Stop 05/22/18 at 09:44; Status DC Prochlorperazine Edisylate (Compazine) 5 mg PACU PRN PRN IV NAUSEA, MRX1; Start 05/21/18 at 09:45; Stop 05/22/18 at 09:44; Status DC Lidocaine HCl (Glydo (Lidocaine) Jelly) 1 vianney 1X ONCE MM ; Start 05/21/18 at 12:30; Stop 05/21/18 at 12:31; Status DC Propofol 20 ml @ As Directed STK-MED ONCE IV ; Start 05/21/18 at 12:27; Stop 05/21/18 at 12:28; Status DC Dexamethasone Sodium Phosphate (Decadron) 20 mg STK-MED ONCE .ROUTE ; Start 05/21/18 at 12:27; Stop 05/21/18 at 12:28; Status DC Famotidine (Pepcid Vial) 20 mg STK-MED ONCE .ROUTE ; Start 05/21/18 at 12:27; Stop 05/21/18 at 12:28; Status DC Lidocaine HCl (Lidocaine Pf 2% Vial) 5 ml STK-MED ONCE .ROUTE ; Start 05/21/18 at 12:27; Stop 05/21/18 at 12:28; Status DC Ondansetron HCl (Zofran) 4 mg STK-MED ONCE .ROUTE ; Start 05/21/18 at 12:27; Stop 05/21/18 at 12:28; Status DC Fentanyl Citrate (Fentanyl 2ml Vial) 100 mcg STK-MED ONCE .ROUTE ; Start 05/21/18 at 12:27; Stop 05/21/18 at 12:28; Status DC Bacitracin 76703 unit/Sodium Chloride 500 ml @ 500 mls/hr 1X ONCE IRR ; Start 05/21/18 at 12:40; Stop 05/21/18 at 13:39; Status DC Cefazolin Sodium 1 gm/Sodium Chloride 500 ml @ 500 mls/hr 1X ONCE IRR ; Start 05/21/18 at 12:40; Stop 05/21/18 at 13:39; Status DC Lidocaine HCl 20 ml STK-MED ONCE .ROUTE ; Start 05/21/18 at 11:42; Stop 05/21/18 at 12:42; Status DC Esmolol HCl (Brevibloc) 100 mg STK-MED ONCE IVP ; Start 05/21/18 at 13:01; Stop 05/21/18 at 13:02; Status DC Esmolol HCl (Brevibloc) 100 mg STK-MED ONCE IVP ; Start 05/21/18 at 14:22; Stop 05/21/18 at 14:23; Status DC Neomycin/ Polymyxin/ Bacitracin (Triple Antibiotic Ointment) 1 pkt STK-MED ONCE TP Last administered on 05/21/18at 14:41; Start 05/21/18 at 13:38; Stop 05/21/18 at 14:38; Status DC Sevoflurane (Ultane) 90 ml STK-MED ONCE IH ; Start 05/21/18 at 14:40; Stop 05/21/18 at 14:41; Status DC Naloxone HCl (Narcan) 0.4 mg PRN Q2MIN PRN IV SEE INSTRUCTIONS; Start 05/21/18 at 15:00 Sodium Chloride 1,000 ml @ 25 mls/hr Q24H IV ; Start 05/21/18 at 14:57; Stop 05/24/18 at 07:00; Status DC Morphine Sulfate 30 ml @ 0 mls/hr CONT PRN PRN IV PER PROTOCOL; Start 05/21/18 at 15:00 Labetalol HCl (Normodyne Iv Push) 20 mg PRN Q2HR PRN IVP HYPERTENSION, SEE COMMENTS Last administered on 05/24/18at 00:15; Start 05/21/18 at 15:30 Labetalol HCl (Normodyne Iv Push) 5 mg 1X PACU PRN IVP tachycardia and HTN Last administered on 05/21/18at 15:30; Start 05/21/18 at 15:30; Stop 05/22/18 at 09:09; Status DC Insulin Glargine (Lantus) 3 units 1X ONCE SQ Last administered on 05/21/18at 22:00; Start 05/21/18 at 22:00; Stop 05/22/18 at 01:31; Status DC Aspirin (Ecotrin) 81 mg DAILYWBKFT PO Last administered on 06/05/18at 08:00; Start 05/23/18 at 08:00 Digoxin (Lanoxin) 250 mcg 1X ONCE IV Last administered on 05/22/18at 12:28; Start 05/22/18 at 12:30; Stop 05/22/18 at 12:31; Status DC Warfarin Sodium (Coumadin) 6 mg DAILY16 PO ; Start 05/22/18 at 16:00; Stop 05/22/18 at 16:00; Status DC Warfarin Sodium (Coumadin) 2.5 mg 3X/WEEK PO ; Start 05/23/18 at 09:00; Status UNV Warfarin Sodium (Coumadin Per Physician) 1 each PRN DAILY PRN MC SEE COMMENTS; Start 05/22/18 at 14:45; Stop 05/22/18 at 14:57; Status DC Warfarin Sodium (Coumadin Per Pharmacy) 1 each PRN DAILY PRN MC SEE COMMENTS Last administered on 06/05/18at 14:15; Start 05/22/18 at 15:00 Warfarin Sodium (Coumadin) 4 mg 1X WARF ONCE PO Last administered on 05/22/18at 16:19; Start 05/22/18 at 16:00; Stop 05/22/18 at 16:01; Status DC Warfarin Sodium (Coumadin) 4 mg 1X WARF ONCE PO ; Start 05/23/18 at 16:00; Stop 05/23/18 at 16:01; Status DC Ringer's Solution 1,000 ml @ 75 mls/hr [id number] IV ; Start 05/23/18 at 13:45; Status Cancel Ringer's Solution 1,000 ml @ 75 mls/hr [id number] IV Last administered on 06/02/18at 13:17; Start 05/23/18 at 14:00; Stop 06/02/18 at 18:01; Status DC Insulin Human Lispro (HumaLOG) 7 units DAILYWBKFT SQ ; Start 05/24/18 at 08:00; Stop 05/25/18 at 12:44; Status DC Dextrose (Dextrose 50%-Water Syringe) 25 gm 1X ONCE IV Last administered on 05/23/18at 13:15; Start 05/23/18 at 17:45; Stop 05/23/18 at 17:46; Status DC Meropenem 500 mg/ Sodium Chloride 50 ml @ 100 mls/hr Q6HRS IV Last administered on 06/01/18at 05:32; Start 05/24/18 at 12:00; Stop 06/01/18 at 09:46; Status DC Warfarin Sodium (Coumadin) 6 mg 1X WARF ONCE PO Last administered on 05/24/18 15:33; Start 05/24/18 at 16:00; Stop 05/24/18 at 16:01; Status DC Insulin Human Lispro (HumaLOG) 3 units DAILYWBKFT SQ Last administered on 06/05/18 09:39; Start 05/26/18 at 08:00 Warfarin Sodium (Coumadin) 6 mg 1X WARF ONCE PO Last administered on 05/25/18 16:04; Start 05/25/18 at 16:00; Stop 05/25/18 at 16:01; Status DC Polyethylene Glycol (miraLAX PACKET) 17 gm DAILY PO Last administered on 09:24; Start 05/26/18 at 14:00 Warfarin Sodium (Coumadin) 7.5 mg 1X WARF ONCE PO Last administered on 05/27/18 17:56; Start 05/27/18 at 16:00; Stop 05/27/18 at 16:01; Status DC Micafungin Sodium 100 mg/Dextrose 100 ml @ 100 mls/hr Q24H IV Last a dministered on 06/03/18 12:02; Start 05/27/18 at 12:00; Stop 06/04/18 at 09:49; Status DC Warfarin Sodium (Coumadin) 6 mg 1X WARF ONCE PO Last administered on 05/28/18 17:32; Start 05/28/18 at 16:00; Stop 05/28/18 at 16:01; Status DC Ascorbic Acid (Vitamin C) 500 mg DAILY PO Last administered on 06/05/18 09:22; Start 05/28/18 at 16:00 Warfarin Sodium (Coumadin) 6 mg 1X WARF ONCE PO Last administered on 05/29/18 17:04; Start 05/29/18 at 16:00; Stop 05/29/18 at 16:01; Status DC Warfarin Sodium (Coumadin) 6 mg 1X WARF ONCE PO Last administered on 05/30/18 15:29; Start 05/30/18 at 16:00; Stop 05/30/18 at 16:01; Status DC Lidocaine/Sodium Bicarbonate (Buffered Lidocaine 1%) 3 ml STK-MED ONCE .ROUTE ; Start 05/30/18 at 13:48; Stop 05/30/18 at 13:49; Status DC Warfarin Sodium (Coumadin) 6 mg 1X WARF ONCE PO Last administered on 05/31/18at 17:23; Start 05/31/18 at 16:00; Stop 05/31/18 at 16:01; Status DC Warfarin Sodium (Coumadin) 3 mg 1X WARF ONCE PO Last administered on 06/01/18at 16:14; Start 06/01/18 at 16:00; Stop 06/01/18 at 16:01; Status DC Vitamin A/Vitamin D (Vitamin A & D Ointment) 1 vianney BID TP Last administered on 06/05/18 09:32; Start 06/01/18 at 21:00 Phenyleph/Shark Oil/Min Oil/Petrol (Preparation H) 1 vianney TID RC Last administered on 06/05/18 09:31; Start 06/02/18 at 14:00 Alteplase, Recombinant (Cathflo For Central Catheter Clearance) 1 mg 1X ONCE INT CAT Last administered on 06/02/18 13:16; Start 06/02/18 at 12:15; Stop 06/02/18 at 12:16; Status DC Warfarin Sodium (Coumadin - No Dose Today) 1 each 1X WARF ONCE MC Last administered on 06/02/18at 16:00; Start 06/02/18 at 16:00; Stop 06/02/18 at 16:01; Status DC Sodium Chloride 1,000 ml @ 1,000 mls/hr 1X ONCE IV Last administered on 06/03/18at 10:44; Start 06/03/18 at 10:30; Stop 06/03/18 at 11:29; Status DC Warfarin Sodium (Coumadin) 1 mg 1X WARF ONCE PO Last administered on 06/03/18at 17:36; Start 06/03/18 at 16:00; Stop 06/03/18 at 16:01; Status DC Warfarin Sodium (Coumadin - No Dose Today) 1 each 1X WARF ONCE MC Last administered on 06/04/18at 15:06; Start 06/04/18 at 16:00; Stop 06/04/18 at 16:01; Status DC Warfarin Sodium (Coumadin - No Dose Today) 1 each 1X WARF ONCE MC ; Start 06/05/18 at 16:00; Stop 06/05/18 at 16:01; Status DC Active Scripts Active Digoxin 125 Mcg Tablet 125 Mcg PO DAILY Furosemide 40 Mg Tablet 40 Mg PO DAILY Metoprolol Tartrate 50 Mg Tablet 50 Mg PO BID [Warfarin Sodium] 1 EACH Each 1 Each MC PRN DAILY PRN Lisinopril 20 Mg Tablet 20 Mg PO DAILY Duoneb 0.5-3(2.5) Mg/3 Ml (Albuterol/Ipratropium) 3 Ml Ampul.neb 3 Ml NEB Q4HRS W/A 30 Days Hydralazine Hcl 10 Mg Tablet 10 Mg PO TID Reported Zonisamide 100 Mg Capsule 400 Mg PO DAILY Percocet 5-325 Mg Tablet (Oxycodone/Acetaminophen) 1 Each Tablet 1 Tab PO PRN Q4HRS PRN Multivitamins (Multivitamin) 1 Each Tablet 1 Tab PO DAILY Levetiracetam 250 Mg Tablet 1,250 Mg PO BID Novolin N (Nph, Human Insulin Isophane) 100 Unit/1 Ml Vial Unknown Dose SQ Atorvastatin Calcium 80 Mg Tablet 1 Tab PO DAILY Acetaminophen 500 Mg Tablet 1 Tab PO PRN Q6HRS PRN Albuterol Sulfate Hfa Inhaler (Albuterol Sulfate) 8.5 Gm Hfa.aer.ad 2 Puff IH P RN Q6HRS PRN Aspirin Ec (Aspirin) 325 Mg Tablet.dr 81 Mg PO DAILY Crestor (Rosuvastatin Calcium) 40 Mg Tablet 40 Mg PO DAILY Warfarin Sodium 5 Mg Tablet 6 Mg PO DAILY Warfarin Sodium 2.5 Mg Tablet 2.5 Mg PO 3X/WEEK monday,monday, Gabapentin (Gabapentin) 300 Mg Capsule 300 Mg PO DAILY Risperidone 1 Mg Tablet 1 Mg PO HS Novolog (Insulin Aspart) 100 Unit/1 Ml Vial 10 Unit SQ DAILYAC Oxycodone-Acetaminophen 10-325 (Oxycodone Hcl/Acetaminophen) 1 Each Tablet 1 Each PO PRN Q6HRS Potassium 99 Mg Tablet 20 Meq PO DAILY Prednisone (Prednisone) 10 Mg Tablet 10 Mg PO DAILY Metformin Hcl 500 Mg Tablet 1,000 Mg PO BIDBFRMEAL Vitals/I & O Vital Sign - Last 24 Hours 06/04/18 06/04/18 06/04/18 06/04/18 20:00 20:38 20:39 20:39 Pulse 70 70 Resp 18 B/P (MAP) 134/45 134/45 Pulse Ox 98 O2 Delivery Room Air Room Air O2 Flow Rate 2.0 06/04/18 06/04/18 06/05/18 06/05/18 21:45 22:58 03:00 07:00 Temp 97.9 98.4 98.2 97.9 98.4 98.2 Pulse 59 87 65 Resp 16 18 18 14 B/P (MAP) 124/40 (68) 113/56 (75) 119/42 (67) Pulse Ox 98 97 98 94 O2 Delivery Room Air Nasal Cannula Nasal Cannula Room Air O2 Flow Rate 2.0 2.0 2.0 06/05/18 06/05/18 06/05/18 06/05/18 08:00 08:24 09:23 09:24 Pulse 65 65 B/P (MAP) 119/42 119/42 Pulse Ox 95 O2 Delivery Room Air Room Air O2 Flow Rate 2.0 06/05/18 06/05/18 06/05/18 06/05/18 09:37 11:00 12:14 16:00 Temp 97.5 97.5 Pulse 61 Resp 18 14 B/P (MAP) 139/49 (79) Pulse Ox 95 97 94 99 O2 Delivery Room Air Nasal Cannula Room Air Nasal Cannula O2 Flow Rate 2.0 2.0 3.0 06/05/18 19:24 Pulse Ox 99 O2 Delivery Nasal Cannula O2 Flow Rate 3.0 Intake and Output 06/04/18 06/04/18 06/05/18 15:00 23:00 07:00 Intake Total 350 ml Output Total 1050 ml 225 ml Balance -700 ml -225 ml Nutrition Consultation Dietary Evaluation: Recommendations by RD: Increase Calorie Intake, Protein supplementation Comments: Continue diet per [place] [facility] with ADA/cardiac diet restrictions per pmhx, can liberalize as needed to provide foods that pt likes change Glucerna TID (chocolate) to ita ensure pudding tid Continue MVI and Vit C (500 mg BID) Expected Outcomes/Goals: PO intake to meet >75% est needs - not met, goal ongoing Malnutrition Findings: Food and Nutrition Intake (Mod: <75% est energy req 7days Weight Status: Obese ZAK MENDEZ MD Jun 05, 2018 19:58
[2018-06-05] MEDS: ATORVASTATIN CALCIUM 40 MG TABLET. PO SCH (20:59)
[2018-06-05] MEDS: risperiDONE 1 MG TABLET. PO SCH (20:59)
--- NOTE | 2018-06-05 21:35 | NUR ---
afternoon meds non-administered. The administration was paper charted by nursing staff, see chart. [employer] was down at the time.
[2018-06-05 23:00] VITALS: BP 129/45
[2018-06-06] MEDS: oxyCODONE/APAP 10/325 1 TAB TABLET PO PRN ×2 (02:52→18:04)
[2018-06-06 03:00] VITALS: BP 114/88
[2018-06-06 05:24] LABS: PROTHROMBIN TIME PATIENT 33.6 SEC (11.7-14.0)
[2018-06-06 07:00] VITALS: BP 171/78
[2018-06-06] MEDS: INSULIN LISPRO 300 UNITS/3 ML INSULN.PEN. SQ SCH ×4 (08:00→17:00)
[2018-06-06] MEDS: IPRATRPIUM/ALBUTEROL 0.5/2.5MG 3 ML NEBU. NEB SCH ×4 (08:04→20:24)
--- NOTE | 2018-06-06 08:51 | NUR ---
SW following pt. [facility] to Peer was denied. SW had run pt's home infusion benefit and was informed it would cost pt around $1800/week to do IV abx at home. Hospice agency also does not want to pay for IV abx as it is not related to hospice dx. AMAURI spoke with Elena at [facility] who stated SNU is denied and Pt does not meet criteria for LTAC. Per Elena,'Pt can stay in current setting until IV abx is completed and pt is stable to dc home'. AMAURI discussed barriers for dc to home at this time and Elena stated she will provide SW with a pharmacy [facility] uses to see if they are able to accommodate home infusion. [facility] is denying SNU as Pt is at baseline with PT/OT and IV abx only does not meet criteria for SNU. AMAURI will continue to follow.
[2018-06-06] MEDS: METOPROLOL TART IMMED RELEASE 50 MG TABLET. PO SCH ×2 (08:59→21:47)
[2018-06-06] MEDS: GABAPENTIN 300 MG CAPSULE. PO SCH (09:00)
[2018-06-06] MEDS: ASPIRIN ENTERIC COATED 81 MG TABLET.DR. PO SCH (09:00)
[2018-06-06] MEDS: POTASSIUM CHLORIDE 20 MEQ TABLET.ER. PO SCH (09:00)
[2018-06-06] MEDS: FUROSEMIDE 40 MG TABLET. PO SCH (09:00)
[2018-06-06] MEDS: MULTIVITAMIN with MINERAL TABLET. PO SCH (09:00)
[2018-06-06] MEDS: levETIRAcetam 250 MG TABLET PO SCH ×2 (09:01→21:47)
[2018-06-06] MEDS: ASCORBIC ACID 500 MG TABLET PO SCH (09:01)
[2018-06-06] MEDS: hydrALAZINE 10 MG TABLET PO SCH ×3 (09:01→21:47)
[2018-06-06] MEDS: metFORMIN 500 MG TABLET PO SCH ×2 (09:01→18:03)
[2018-06-06] MEDS: ZONISAMIDE 100 MG CAPSULE. PO SCH (09:02)
[2018-06-06] MEDS: POLYETHYLENE GLYCOL 3350 17 GM PACKET. PO SCH (09:02)
[2018-06-06] MEDS: VITS A & D/LANOLIN TOPICAL OINTMENT 56GM TUBE. TP SCH ×2 (09:04→21:46)
[2018-06-06] MEDS: PHENYLEPH/MINERAL OIL/PETROLAT RECTAL OINTMENT 28GM TUBE. RC SCH ×3 (09:04→21:46)
--- NOTE | 2018-06-06 09:04 | NUR ---
Patient not given meal dose and sliding scale insulin, as he informed nurse that he does not eat breakfast, just had coffee this morning.
[2018-06-06 11:00] VITALS: BP 147/66
--- NOTE | 2018-06-06 11:41 | PDOC ---
PROGRESS NOTES Chief Complaint Chief Complaint Severe sepsis cellulitis w/ gangrenous toes MRSA bacteremia (4 of 4 bottles) with sepsis, POA source //foot infection post Right below-knee amputation -CRYSTAL done no vegetations 05/21; BC from 05/20 & 05/21 neg A. 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 A neoplastic etiology cannot be excluded and CT follow-up may be prudent. Small bilateral pleural effusions with mild bibasilar atelectasis. Distended gallbladder containing material of medium density. This may represent sludge Cont Dapto (susceptible 05/18)- 6 weeks = Jul 02 2018 History of Present Illness History of Present Illness Patient seen and examined I discussed the case with the hospice nurse in detail Patient is very depressed and just wants to go home with hospice Vitals Vitals Vital Signs Date Time Temp Pulse Resp B/P (MAP) Pulse Ox O2 Delivery O2 Flow Rate FiO2 06/06/18 11:00 98.2 56 18 147/66 (93) 97 Nasal Cannula 2.0 98.2 Physical Exam Physical Exam GEN: Lying down, talkative HEENT: Normal conjunctivae. Oral cavity, pharynx pink, dry NECK: Supple. LUNGS: Clear anteriorly HEART: S1 and S2, soft murmur. ABDOMEN: Obese, soft and non tender with bowel sounds present. GENITOURINARY: Indwelling Crawley in place. EXTREMITIES: Right BKA incision well approx w/ matti, clean Left ankle wound, no bone exposure or area redness SKIN: Warm without rash. Several tattoos. NEUROLOGIC: Arouses to name follows commands, depressed PICC RUE - clean General: No acute distress, Other (lethargic and weak and tough to arouse today) Heart: Regular rate, Other (AFIB) Lungs: Clear Abdomen: Normal bowel sounds, Soft, No tenderness Extremities: No cyanosis, Other (right BKA dressing, LLE dressing) Skin: No significant lesion, Other (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 and 2 g angrenous toes on the right, chronic hyperpigmentation bilateral shins and foot) Labs LABS Laboratory Tests Test 06/05/18 16:44 06/05/18 19:31 06/06/18 02:40 06/06/18 07:31 Glucose (Fingerstick) 115 mg/dL (70-99) 109 mg/dL (70-99) 155 mg/dL (70-99) Prothrombin Time 33.6 SEC (11.7-14.0) Prothromb Time International Ratio 3.3 (0.8-1.1) Review of Systems Review of Systems Complains of depression complains of weakness Assessment and Plan Assessmemt and Plan Problems Medical Problems: (1) Fever Status: Acute (2) Gangrene of toe Status: Acute (3) Leukocytosis Status: Acute (4) Severe sepsis Status: Acute Assessment/Plan Severe sepsis with gangrenous toes A. fib RVR Supra therapeutic INR 4.8 Elevated lactate 1.7 AK I creatinine 1.5 Leukocytosis 20, fever temperature 102 Diabetes type 2 on insulin History PAD-known to vascular surgery Prosthetic heart valve?-Maintained on warfarin Plan Hospice reevaluate in progress Discharge disposition pending (we are sure if he'll go to senior care or home or even a rehabilitation) Continue current meds DVT prophylaxis IV fluids Wound care Prognosis long-term is terminal Comment Review of Relevant I have reviewed the following items navi (where applicable) has been applied. Labs Laboratory Tests Test 06/04/18 13:02 06/04/18 16:53 06/04/18 20:38 06/05/18 07:12 Glucose (Fingerstick) 87 mg/dL (70-99) 94 mg/dL (70-99) 114 mg/dL (70-99) 125 mg/dL (70-99) Test 06/05/18 10:00 06/05/18 11:30 06/05/18 16:44 06/05/18 19:31 Prothrombin Time 32.8 SEC (11.7-14.0) Prothromb Time International Ratio 3.2 (0.8-1.1) Glucose (Fingerstick) 94 mg/dL (70-99) 115 mg/dL (70-99) 109 mg/dL (70-99) Test 06/06/18 02:40 06/06/18 07:31 Prothrombin Time 33.6 SEC (11.7-14.0) Prothromb Time International Ratio 3.3 (0.8-1.1) Glucose (Fingerstick) 155 mg/dL (70-99) Laboratory Tests Test 06/05/18 16:44 06/05/18 19:31 06/06/18 02:40 06/06/18 07:31 Glucose (Fingerstick) 115 mg/dL (70-99) 109 mg/dL (70-99) 155 mg/dL (70-99) Prothrombin Time 33.6 SEC (11.7-14.0) Prothromb Time International Ratio 3.3 (0.8-1.1) Microbiology 05/27/18 Blood Culture - Final, Complete NO GROWTH AFTER 5 DAYS 05/19/18 Urine Culture - Final, Complete 05/19/18 Urine Culture Result 1 (FELICITA) - Final, Complete 05/19/18 Anaerobic/Aerobic Culture - Final, Complete 05/19/18 Anaerobic Culture Result 1 (FELICITA) - Final, Complete 05/19/18 Aerobic Culture - Final, Complete 05/19/18 Aerobic Culture Result 1 (FELICITA) - Final, Complete 05/19/18 Aerobic Culture Result 2 (FELICITA) - Final, Complete 05/19/18 Antimicrobic Susceptibility - Final, Complete 05/19/18 Gram Stain - Final, Complete 05/19/18 Gram Stain Result 1 (FELICITA) - Final, Complete 05/19/18 Gram Stain Result 2 (FELICITA) - Final, Complete Medications Current Medications Sodium Chloride 1,000 ml @ 2,190 mls/hr Q28M IV Last administered on 05/18/18at 14:36; Start 05/18/18 at 12:52; Stop 05/18/18 at 13:52; Status DC Piperacillin Sod/ Tazobactam Sod 4.5 gm/Sodium Chloride 100 ml @ 200 mls/hr 1X ONCE IV Last administered on 05/18/18at 14:34; Start 05/18/18 at 13:00; Stop 05/18/18 at 13:29; Status DC Vancomycin HCl (Vanco Per Pharmacy) 1 each 1X ONCE MC Last administered on 05/18/18at 13:00; Start 05/18/18 at 13:00; Stop 05/18/18 at 13:11; Status DC Vancomycin HCl 2 gm/Sodium Chloride 500 ml @ 250 mls/hr 1X ONCE IV Last administered on 05/18/18at 15:28; Start 05/18/18 at 13:15; Stop 05/18/18 at 15:14; Status DC Ondansetron HCl (Zofran) 4 mg PRN Q8HRS PRN IV NAUSEA/VOMITING; Start 05/18/18 at 14:45; Stop 05/18/18 at 15:28; Status DC Fentanyl Citrate (Fentanyl 2ml Vial) 50 mcg PRN Q1HR PRN IV PAIN; Start 05/18/18 at 14:45; Stop 05/19/18 at 11:50; Status DC Sodium Chloride 1,000 ml @ 80 mls/hr [id number] IV ; Start 05/18/18 at 14:43; Stop 05/18/18 at 18:42; Status DC Acetaminophen (Tylenol) 650 mg 1X ONCE PO Last administered on 05/18/18at 15:29; Start 05/18/18 at 15:30; Stop 05/18/18 at 15:31; Status DC Ondansetron HCl (Zofran) 4 mg PRN Q6HRS PRN IV NAUSEA/VOMITING Last administered on 05/24/18at 06:14; Start 05/18/18 at 15:30 Diltiazem HCl (Cardizem Iv Push) 10 mg 1X ONCE IVP ; Start 05/18/18 at 15:30; Stop 05/18/18 at 15:31; Status DC Acetaminophen (Tylenol) 500 mg PRN Q6HRS PRN PO MILD PAIN / TEMP; Start 05/18/18 at 15:30; Stop 05/18/18 at 16:14; Status DC Acetaminophen/ Codeine Phosphate (Tylenol #3) 1 tab PRN Q6HRS PRN PO MODERATE PAIN Last administered on 05/26/18at 21:56; Start 05/18/18 at 15:30 Morphine Sulfate (Morphine Sulfate) 2 mg PRN Q2HR PRN IV PAIN Last administered on 06/03/18at 13:22; Start 05/18/18 at 15:30 Oxycodone/ Acetaminophen (Percocet 5/325) 1 tab PRN Q4HRS PRN PO SEVERE PAIN Last administered on 06/02/18at 19:11; Start 05/18/18 at 15:30 Albuterol Sulfate (Ventolin Hfa) 2 puff PRN Q6HRS PRN IH SHORTNESS OF BREATH; Start 05/18/18 at 15:30; Status UNV Digoxin (Lanoxin) 125 mcg DAILY PO ; Start 05/19/18 at 09:00; Stop 05/19/18 at 09:00; Status DC Furosemide (Lasix) 40 mg DAILY PO Last administered on 06/06/18 09:00; Start 05/19/18 at 09:00 Gabapentin (Neurontin) 300 mg DAILY PO Last administered on 06/06/18 09:00; Start 05/19/18 at 09:00 Lisinopril (Prinivil) 20 mg DAILY PO Last administered on 05/19/18 10:14; S tart 05/19/18 at 09:00; Stop 05/24/18 at 15:20; Status DC Metoprolol Tartrate (Lopressor) 50 mg BID PO Last administered on 06/06/18 08:59; Start 05/18/18 at 21:00 Oxycodone/ Acetaminophen (Percocet 10/325) 1 tab PRN Q6HRS PRN PO SEVERE PAIN (2ND Choice) Last administered on 06/06/18at 02:52; Start 05/18/18 at 15:30 Oxycodone/ Acetaminophen (Percocet 5/325) 1 tab PRN Q4HRS PRN PO PAIN; Start 05/18/18 at 15:30; Status UNV Acetaminophen (Tylenol) 500 mg PRN Q6HRS PRN PO MILD PAIN / TEMP Last administered on 05/27/18at 23:35; Start 05/18/18 at 16:15 Atorvastatin Calcium (Lipitor) 80 mg QHS PO Last administered on 06/05/18 20:59; Start 05/18/18 at 21:00 Hydralazine HCl (Apresoline) 10 mg TID PO Last administered on 06/06/18 09:01; Start 05/18/18 at 16:00 Insulin Human Lispro (HumaLOG) 10 units DAILYWBKFT SQ Last administered on 05/23/18at 08:58; Start 05/18/18 at 17:00; Stop 05/23/18 at 14:25; Status DC Levetiracetam (Keppra) 1,250 mg BID PO Last administered on 06/06/18 09:01; Start 05/18/18 at 21:00 Metformin HCl (Glucophage) 1,000 mg BIDWMEALS PO Last administered on 06/06/18 09:01; Start 05/18/18 at 17:00 Multivitamins (Thera M Plus) 1 tab DAILY PO Last administered on 06/06/18 09:00; Start 05/19/18 at 09:00 Potassium Chloride (Klor-Con) 20 meq DAILYWBKFT PO Last administered on 06/06/18 09:00; Start 05/19/18 at 08:00 Risperidone (RisperDAL) 1 mg QHS PO Last administered on 06/05/18 20:59; Start 05/18/18 at 21:00 Non-Formulary Medication (Rosuvastatin Calcium (Crestor)) 40 mg DAILY PO ; Start 05/19/18 at 09:00; Status UNV Zonisamide (Zonegran) 400 mg DAILY PO Last administered on 06/06/18 09:02; Start 05/19/18 at 09:00 Albuterol/ Ipratropium (Duoneb) 3 ml Q4HRS W/A NEB Last administered on 06/06/18 08:04; Start 05/18/18 at 18:00 Insulin Human Lispro (HumaLOG) 0-9 UNITS TIDWMEALS SQ Last administered on 05/26/18 18:04; Start 05/18/18 at 17:00 Dextrose (Dextrose 50%-Water Syringe) 12.5 gm PRN Q15MIN PRN IV SEE COMMENTS Last administered on 05/25/18 06:04; Start 05/18/18 at 15:30 Albuterol Sulfate (Ventolin Neb Soln) 2.5 mg PRN Q6HRS PRN NEB SHORTNESS OF BREATH Last administered on 05/26/18 08:35; Start 05/18/18 at 15:45 Piperacillin Sod/ Tazobactam Sod 3.375 gm/Sodium Chloride 50 ml @ 100 mls/hr Q6HRS IV Last administered on 05/24/18 05:33; Start 05/18/18 at 18:00; Stop 05/24/18 at 08:09; Status DC Potassium Chloride (Klor-Con) 40 meq 1X ONCE PO Last administered on 4/13/19at 10:14; Start 05/19/18 at 08:30; Stop 05/19/18 at 08:31; Status DC Heparin Sodium (Porcine) (Heparin Sodium) 5,000 unit Q8HRS SQ ; Start 05/19/18 at 14:00; Stop 05/19/18 at 14:00; Status DC Furosemide (Lasix) 40 mg 1X ONCE IVP Last administered on 05/19/18at 10:12; Start 05/19/18 at 08:45; Stop 05/19/18 at 08:46; Status DC Phytonadione (Vitamin K Ampule) 10 mg 1X ONCE SQ Last administered on 05/19/18at 10:16; Start 05/19/18 at 10:00; Stop 05/19/18 at 10:01; Status DC Vancomycin HCl (Vanco Per Pharmacy) 1 each PRN DAILY PRN MC SEE COMMENTS Last administered on 05/19/18at 10:32; Start 05/19/18 at 10:00; Stop 05/20/18 at 10:42; Status DC Phytonadione (Vitamin K Ampule) 10 mg 1X ONCE SQ ; Start 05/19/18 at 10:15; Stop 05/19/18 at 10:16; Status UNV Vancomycin HCl 1.75 gm/Sodium Chloride 500 ml @ 250 mls/hr Q24H IV Last administered on 05/19/18at 16:59; Start 05/19/18 at 16:00; Stop 05/20/18 at 10:42; Status DC Vancomycin HCl (Vancomycin Trough Level) 1 each 1X ONCE MC ; Start 05/20/18 at 16:30; Stop 05/20/18 at 16:30; Status DC Acetaminophen (Tylenol Supp) 650 mg PRN Q6HRS PRN ID MILD PAIN / TEMP Last administered on 05/23/18at 23:33; Start 05/20/18 at 01:15 Sodium Chloride 500 ml @ 333 mls/hr 1X ONCE IV Last administered on 05/20/18at 01:14; Start 05/20/18 at 01:15; Stop 05/20/18 at 02:45; Status DC Phytonadione 5 mg/ Dextrose 50.5 ml @ 101 mls/hr 1X ONCE IV Last administered on 05/20/18at 10:08; Start 05/20/18 at 10:30; Stop 05/20/18 at 10:59; Status DC Daptomycin 590 mg/ Sodium Chloride 50 ml @ 100 mls/hr Q24H IV Last administered on 06/04/18at 11:56; Start 05/20/18 at 12:00 Ondansetron HCl (Zofran) 4 mg PRN Q6HRS PRN IV NAUSEA/VOMITING; Start 05/21/18 at 09:45; Stop 05/22/18 at 09:44; Status DC Fentanyl Citrate (Fentanyl 2ml Vial) 25 mcg PRN Q5MIN PRN IV MILD PAIN; Start 05/21/18 at 09:45; Stop 05/22/18 at 09:44; Status DC Fentanyl Citrate (Fentanyl 2ml Vial) 50 mcg PRN Q5MIN PRN IV MODERATE TO SEVERE PAIN; Start 05/21/18 at 09:45; Stop 05/22/18 at 09:44; Status DC Morphine Sulfate (Morphine Sulfate) 1 mg PRN Q10MIN PRN IV SEVERE PAIN; Start 05/21/18 at 09:45; Stop 05/22/18 at 09:44; Status DC Ringer's Solution 1,000 ml @ 30 mls/hr Q24H IV ; Start 05/21/18 at 09:39; Stop 05/22/18 at 00:37; Status DC Lidocaine HCl (Xylocaine-Mpf 1% 2ml Vial) 2 ml 1X PRN PRN ID IV START; Start 05/21/18 at 09:45; Stop 05/22/18 at 09:44; Status DC Hydromorphone HCl (Dilaudid) 0.5 mg PRN Q10MIN PRN IV SEV PAIN, Second choice; Start 05/21/18 at 09:45; Stop 05/22/18 at 09:44; Status DC Prochlorperazine Edisylate (Compazine) 5 mg PACU PRN PRN IV NAUSEA, MRX1; Start 05/21/18 at 09:45; Stop 05/22/18 at 09:44; Status DC Lidocaine HCl (Glydo (Lidocaine) Jelly) 1 vianney 1X ONCE MM ; Start 05/21/18 at 12:30; Stop 05/21/18 at 12:31; Status DC Propofol 20 ml @ As Directed STK-MED ONCE IV ; Start 05/21/18 at 12:27; Stop 05/21/18 at 12:28; Status DC Dexamethasone Sodium Phosphate (Decadron) 20 mg STK-MED ONCE .ROUTE ; Start 05/21/18 at 12:27; Stop 05/21/18 at 12:28; Status DC Famotidine (Pepcid Vial) 20 mg STK-MED ONCE .ROUTE ; Start 05/21/18 at 12:27; Stop 05/21/18 at 12:28; Status DC Lidocaine HCl (Lidocaine Pf 2% Vial) 5 ml STK-MED ONCE .ROUTE ; Start 05/21/18 at 12:27; Stop 05/21/18 at 12:28; Status DC Ondansetron HCl (Zofran) 4 mg STK-MED ONCE .ROUTE ; Start 05/21/18 at 12:27; Stop 05/21/18 at 12:28; Status DC Fentanyl Citrate (Fentanyl 2ml Vial) 100 mcg STK-MED ONCE .ROUTE ; Start 05/21/18 at 12:27; Stop 05/21/18 at 12:28; Status DC Bacitracin 32827 unit/Sodium Chloride 500 ml @ 500 mls/hr 1X ONCE IRR ; Start 05/21/18 at 12:40; Stop 05/21/18 at 13:39; Status DC Cefazolin Sodium 1 gm/Sodium Chloride 500 ml @ 500 mls/hr 1X ONCE IRR ; Start 05/21/18 at 12:40; Stop 05/21/18 at 13:39; Status DC Lidocaine HCl 20 ml STK-MED ONCE .ROUTE ; Start 05/21/18 at 11:42; Stop 05/21/18 at 12:42; Status DC Esmolol HCl (Brevibloc) 100 mg STK-MED ONCE IVP ; Start 05/21/18 at 13:01; Stop 05/21/18 at 13:02; Status DC Esmolol HCl (Brevibloc) 100 mg STK-MED ONCE IVP ; Start 05/21/18 at 14:22; Stop 05/21/18 at 14:23; Status DC Neomycin/ Polymyxin/ Bacitracin (Triple Antibiotic Ointment) 1 pkt STK-MED ONCE TP Last administered on 05/21/18at 14:41; Start 05/21/18 at 13:38; Stop 05/21/18 at 14:38; Status DC Sevoflurane (Ultane) 90 ml STK-MED ONCE IH ; Start 05/21/18 at 14:40; Stop 05/21/18 at 14:41; Status DC Naloxone HCl (Narcan) 0.4 mg PRN Q2MIN PRN IV SEE INSTRUCTIONS; Start 05/21/18 at 15:00 Sodium Chloride 1,000 ml @ 25 mls/hr Q24H IV ; Start 05/21/18 at 14:57; Stop 05/24/18 at 07:00; Status DC Morphine Sulfate 30 ml @ 0 mls/hr CONT PRN PRN IV PER PROTOCOL; Start 05/21/18 at 15:00 Labetalol HCl (Normodyne Iv Push) 20 mg PRN Q2HR PRN IVP HYPERTENSION, SEE COMMENTS Last administered on 05/24/18at 00:15; Start 05/21/18 at 15:30 Labetalol HCl (Normodyne Iv Push) 5 mg 1X PACU PRN IVP tachycardia and HTN Last administered on 05/21/18at 15:30; Start 05/21/18 at 15:30; Stop 05/22/18 at 09:09; Status DC Insulin Glargine (Lantus) 3 units 1X ONCE SQ Last administered on 05/21/18at 22:00; Start 05/21/18 at 22:00; Stop 05/22/18 at 01:31; Status DC Aspirin (Ecotrin) 81 mg DAILYWBKFT PO Last administered on 06/06/18at 09:00; Start 05/23/18 at 08:00 Digoxin (Lanoxin) 250 mcg 1X ONCE IV Last administered on 05/22/18at 12:28; Start 05/22/18 at 12:30; Stop 05/22/18 at 12:31; Status DC Warfarin Sodium (Coumadin) 6 mg DAILY16 PO ; Start 05/22/18 at 16:00; Stop 05/22/18 at 16:00; Status DC Warfarin Sodium (Coumadin) 2.5 mg 3X/WEEK PO ; Start 05/23/18 at 09:00; Status UNV Warfarin Sodium (Coumadin Per Physician) 1 each PRN DAILY PRN MC SEE COMMENTS; Start 05/22/18 at 14:45; Stop 05/22/18 at 14:57; Status DC Warfarin Sodium (Coumadin Per Pharmacy) 1 each PRN DAILY PRN MC SEE COMMENTS Last administered on 06/05/18at 14:15; Start 05/22/18 at 15:00 Warfarin Sodium (Coumadin) 4 mg 1X WARF ONCE PO Last administered on 05/22/18at 16:19; Start 05/22/18 at 16:00; Stop 05/22/18 at 16:01; Status DC Warfarin Sodium (Coumadin) 4 mg 1X WARF ONCE PO ; Start 05/23/18 at 16:00; Stop 05/23/18 at 16:01; Status DC Ringer's Solution 1,000 ml @ 75 mls/hr [id number] IV ; Start 05/23/18 at 13:45; Status Cancel Ringer's Solution 1,000 ml @ 75 mls/hr [id number] IV Last administered on 06/02/18at 13:17; Start 05/23/18 at 14:00; Stop 06/02/18 at 18:01; Status DC Insulin Human Lispro (HumaLOG) 7 units DAILYWBKFT SQ ; Start 05/24/18 at 08:00; Stop 05/25/18 at 12:44; Status DC Dextrose (Dextrose 50%-Water Syringe) 25 gm 1X ONCE IV Last administered on 05/23/18at 13:15; Start 05/23/18 at 17:45; Stop 05/23/18 at 17:46; Status DC Meropenem 500 mg/ Sodium Chloride 50 ml @ 100 mls/hr Q6HRS IV Last administered on 06/01/18at 05:32; Start 05/24/18 at 12:00; Stop 06/01/18 at 09:46; Status DC Warfarin Sodium (Coumadin) 6 mg 1X WARF ONCE PO Last administered on 05/24/18at 15:33; Start 05/24/18 at 16:00; Stop 05/24/18 at 16:01; Status DC Insulin Human Lispro (HumaLOG) 3 units DAILYWBKFT SQ Last administered on 06/05/18at 09:39; Start 05/26/18 at 08:00 Warfarin Sodium (Coumadin) 6 mg 1X WARF ONCE PO Last administered on 05/25/18at 16:04; Start 05/25/18 at 16:00; Stop 05/25/18 at 16:01; Status DC Polyethylene Glycol (miraLAX PACKET) 17 gm DAILY PO Last administered on 06/06/18 09:02; Start 05/26/18 at 14:00 Warfarin Sodium (Coumadin) 7.5 mg 1X WARF ONCE PO Last administered on 05/27/18 17:56; Start 05/27/18 at 16:00; Stop 05/27/18 at 16:01; Status DC Micafungin Sodium 100 mg/Dextrose 100 ml @ 100 mls/hr Q24H IV Last administered on 06/03/18 12:02; Start 05/27/18 at 12:00; Stop 06/04/18 at 09:49; Status DC Warfarin Sodium (Coumadin) 6 mg 1X WARF ONCE PO Last administered on 05/28/18 17:32; Start 05/28/18 at 16:00; Stop 05/28/18 at 16:01; Status DC Ascorbic Acid (Vitamin C) 500 mg DAILY PO Last administered on 06/06/18 09:01; Start 05/28/18 at 16:00 Warfarin Sodium (Coumadin) 6 mg 1X WARF ONCE PO Last administered on 05/29/18 17:04; Start 05/29/18 at 16:00; Stop 05/29/18 at 16:01; Status DC Warfarin Sodium (Coumadin) 6 mg 1X WARF ONCE PO Last administered on 05/30/18 15:29; Start 05/30/18 at 16:00; Stop 05/30/18 at 16:01; Status DC Lidocaine/Sodium Bicarbonate (Buffered Lidocaine 1%) 3 ml STK-MED ONCE .ROUTE ; Start 05/30/18 at 13:48; Stop 05/30/18 at 13:49; Status DC Warfarin Sodium (Coumadin) 6 mg 1X WARF ONCE PO Last administered on 05/31/18 17:23; Start 05/31/18 at 16:00; Stop 05/31/18 at 16:01; Status DC Warfarin Sodium (Coumadin) 3 mg 1X WARF ONCE PO Last administered on 06/01/18 16:14; Start 06/01/18 at 16:00; Stop 06/01/18 at 16:01; Status DC Vitamin A/Vitamin D (Vitamin A & D Ointment) 1 vianney BID TP Last administered on 06/06/18 09:04; Start 06/01/18 at 21:00 Phenyleph/Shark Oil/Min Oil/Petrol (Preparation H) 1 vianney TID RC Last administered on 06/06/18at 09:04; Start 06/02/18 at 14:00 Alteplase, Recombinant (Cathflo For Central Catheter Clearance) 1 mg 1X ONCE INT CAT Last administered on 06/02/18at 13:16; Start 06/02/18 at 12:15; Stop 06/02/18 at 12:16; Status DC Warfarin Sodium (Coumadin - No Dose Today) 1 each 1X WARF ONCE MC Last administered on 06/02/18at 16:00; Start 06/02/18 at 16:00; Stop 06/02/18 at 16:01; Status DC Sodium Chloride 1,000 ml @ 1,000 mls/hr 1X ONCE IV Last administered on 06/03/18at 10:44; Start 06/03/18 at 10:30; Stop 06/03/18 at 11:29; Status DC Warfarin Sodium (Coumadin) 1 mg 1X WARF ONCE PO Last administered on 06/03/18at 17:36; Start 06/03/18 at 16:00; Stop 06/03/18 at 16:01; Status DC Warfarin Sodium (Coumadin - No Dose Today) 1 each 1X WARF ONCE MC Last administered on 06/04/18at 15:06; Start 06/04/18 at 16:00; Stop 06/04/18 at 16:01; Status DC Warfarin Sodium (Coumadin - No Dose Today) 1 each 1X WARF ONCE MC ; Start 06/05/18 at 16:00; Stop 06/05/18 at 16:01; Status DC Active Scripts Active Digoxin 125 Mcg Tablet 125 Mcg PO DAILY Furosemide 40 Mg Tablet 40 Mg PO DAILY Metoprolol Tartrate 50 Mg Tablet 50 Mg PO BID [Warfarin Sodium] 1 EACH Each 1 Each MC PRN DAILY PRN Lisinopril 20 Mg Tablet 20 Mg PO DAILY Duoneb 0.5-3(2.5) Mg/3 Ml (Albuterol/Ipratropium) 3 Ml Ampul.neb 3 Ml NEB Q4HRS W/A 30 Days Hydralazine Hcl 10 Mg Tablet 10 Mg PO TID Reported Zonisamide 100 Mg Capsule 400 Mg PO DAILY Percocet 5-325 Mg Tablet (Oxycodone/Acetaminophen) 1 Each Tablet 1 Tab PO PRN Q4HRS PRN Multivitamins (Multivitamin) 1 Each Tablet 1 Tab PO DAILY Levetiracetam 250 Mg Tablet 1,250 Mg PO BID Novolin N (Nph, Human Insulin Isophane) 100 Unit/1 Ml Vial Unknown Dose SQ Atorvastatin Calcium 80 Mg Tablet 1 Tab PO DAILY Acetaminophen 500 Mg Tablet 1 Tab PO PRN Q6HRS PRN Albuterol Sulfate Hfa Inhaler (Albuterol Sulfate) 8.5 Gm Hfa.aer.ad 2 Puff IH PRN Q6HRS PRN Aspirin Ec (Aspirin) 325 Mg Tablet.dr 81 Mg PO DAILY Crestor (Rosuvastatin Calcium) 40 Mg Tablet 40 Mg PO DAILY Warfarin Sodium 5 Mg Tablet 6 Mg PO DAILY Warfarin Sodium 2.5 Mg Tablet 2.5 Mg PO 3X/WEEK monday,monday, Gabapentin (Gabapentin) 300 Mg Capsule 300 Mg PO DAILY Risperidone 1 Mg Tablet 1 Mg PO HS Novolog (Insulin Aspart) 100 Unit/1 Ml Vial 10 Unit SQ DAILYAC Oxycodone-Acetaminophen 10-325 (Oxycodone Hcl/Acetaminophen) 1 Each Tablet 1 Each PO PRN Q6HRS Potassium 99 Mg Tablet 20 Meq PO DAILY Prednisone (Prednisone) 10 Mg Tablet 10 Mg PO DAILY Metformin Hcl 500 Mg Tablet 1,000 Mg PO BIDBFRMEAL Vitals/I & O Vital Sign - Last 24 Hours 06/05/18 06/05/18 06/05/18 06/05/18 12:14 16:00 19:00 19:24 Temp 97.9 97.9 Pulse 79 Resp 14 B/P (MAP) 130/48 (75) Pulse Ox 94 99 96 99 O2 Delivery Room Air Nasal Cannula Room Air Nasal Cannula O2 Flow Rate 3.0 3.0 06/05/18 06/05/18 06/05/18 06/05/18 20:00 21:00 21:01 23:00 Temp 97.9 97.9 Pulse 79 79 65 Resp 14 B/P (MAP) 130/48 130/48 129/45 (73) Pulse Ox 99 O2 Delivery Room Air Room Air O2 Flow Rate 2.0 06/06/18 06/06/18 06/06/18 06/06/18 02:52 03:00 07:00 08:00 Temp 97.6 98.0 97.6 98.0 Pulse 78 68 Resp 18 14 B/P (MAP) 114/88 (97) 171/78 (109) Pulse Ox 99 98 97 O2 Delivery Room Air Room Air Nasal Cannula Room Air O2 Flow Rate 2.0 2.0 2.0 06/06/18 06/06/18 06/06/18 06/06/18 08:05 08:59 09:01 11:00 Temp 98.2 98.2 Pulse 68 68 56 Resp 18 B/P (MAP) 171/78 171/78 147/66 (93) Pulse Ox 95 97 O2 Delivery Nasal Cannula Nasal Cannula O2 Flow Rate 2.0 2.0 Intake and Output 06/05/18 06/05/18 06/06/18 15:00 23:00 07:00 Intake Total 50 ml 0 ml Output Total 325 ml 100 ml 500 ml Balance -325 ml -50 ml -500 ml Nutrition Consultation Dietary Evaluation: Recommendations by RD: Increase Calorie Intake, Protein supplementation Comments: Continue diet per [employer] with ADA/cardiac diet restrictions per pmhx, can liberalize as needed to provide foods that pt likes change Glucerna TID (chocolate) to ita ensure pudding tid Continue MVI and Vit C (500 mg BID) Expected Outcomes/Goals: PO intake to meet >75% est needs - not met, goal ongoing Malnutrition Findings: Food and Nutrition Intake (Mod: <75% est energy req 7days Weight Status: Obese OBI SOLANO III DO June 06, 2018 11:41
--- NOTE | 2018-06-06 12:22 | PDOC ---
Infectious Disease Note Subjective Subjective pt is feeling good, wants to go home ( not SNF ) ROS ROS no n/v/d/ Vital Sign Vital Signs Vital Signs Date Time Temp Pulse Resp B/P (MAP) Pulse Ox O2 Delivery O2 Flow Rate FiO2 06/06/18 11:50 Nasal Cannula 2.0 06/06/18 11:00 98.2 56 18 147/66 (93) 97 98.2 Physical Exam PHYSICAL EXAM GEN: Lying down, talkative HEENT: Normal conjunctivae. Oral cavity, pharynx pink, dry NECK: Supple. LUNGS: Clear anteriorly HEART: S1 and S2, soft murmur. ABDOMEN: Obese, soft and non tender with bowel sounds present. GENITOURINARY: Indwelling Crawley in place. EXTREMITIES: Right BKA incision well approx w/ matti, clean Left ankle wound, no bone exposure or area redness SKIN: Warm without rash. Several tattoos. NEUROLOGIC: Arouses to name follows commands, depressed PICC RUE - clean Labs Lab Laboratory Tests Test 06/05/18 16:44 06/05/18 19:31 06/06/18 02:40 06/06/18 07:31 Glucose (Fingerstick) 115 mg/dL (70-99) 109 mg/dL (70-99) 155 mg/dL (70-99) Prothrombin Time 33.6 SEC (11.7-14.0) Prothromb Time International Ratio 3.3 (0.8-1.1) Test 06/06/18 11:38 Glucose (Fingerstick) 141 mg/dL (70-99) Objective Assessment Fevers better overall. repeat UA and BC from 05/24 neg so far Leukocytosis - better Constipation ? cholecystitis - non tender better MRSA bacteremia (4 of 4 bottles) with sepsis, POA source possible foot infection- Dapto sensitive 05/18 -CRYSTAL done no vegetations 05/21; BC from 05/20 & 05/21 neg Infected necrotic ulcer left ankle s/p I and D 05/21. MRSA and Enterobacter ( R Augmentin/cefuroxime) - no exposed bone. 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 Severe PAD s/p BLE stents and previous toe amputations Bioprosthetic aortic valve Renal insufficiency/JIMMY - better Encephalopathy - improved but still some confusion Coagulopathy, on chronic warfarin A- fib RVR Diabetes Type II h/o PSA ( R quinolones & I imipenem) h/o group B strep bacteremia, 2017 Plan Plan of Care Cont Dapto (susceptible 05/18)- 6 weeks = July 02 (last CPK 05/31 was 218) Monitor labs CK/CMP/CBC with diff Q Monday while on Daptomycin Local wound care and offloading left ankle wound is not infected, but it is on lat malleolus, and the way his foot rotates and sits on it , likely will get worse D/w nursing f/u with us in 2 wks wkly cbc, bun/cr, sed rate, cpk , fax to [phone] DYAANA CATES MD June 06, 2018 12:22
[2018-06-06] MEDS: DAPTOmycin (GENERIC) IVPB 590 MG in IV NORMAL SALINE 50ML 50 ML IV SCH (12:34)
--- NOTE | 2018-06-06 14:52 | NUR ---
Pharmacy Warfarin Dosing Note S:Pharmacy consulted to assist with anticoagulation therapy started with target INR: 2 -3 O:VICKI BRAUN is a 78 year old M with Atrial Fibrillation Bioprosthetic Valve LABS: Last INR: 3.3 Last HGB: 7.7 Last HCT: 24.1 Last PLT: 325 Last dose of Hold given on 06/05/18 at 1529 Previous Regimen: 4mg/day except 2 mg Sat/Sun Vitamin K given: Y 05/19: 10 MG SUB-Q, 05/20: 5 MG IV Drug Interaction Changes: New Interacting Drug Ongoing Drug Interactions: Zosyn A:INR of 3.3 is above desired range. Target range for this patient is: 2 -3 P: Warfarin dose: 1 mg Today at 1600 Bridge Therapy: None Next INR due IN AM Pharmacy anticoagulation service will continue to follow. ANTHONY RODRIGUES [facility], 06/06/18 2164
[2018-06-06 15:00] VITALS: BP 182/60
--- NOTE | 2018-06-06 15:09 | NUR ---
Pharmacy Warfarin Dosing Note S:Pharmacy consulted to assist with anticoagulation therapy started with target INR: 2 -3 O:VICKI BRAUN is a 78 year old M with Atrial Fibrillation Bioprosthetic Valve LABS: Last INR: 3.3 Last HGB: 7.7 Last HCT: 24.1 Last PLT: 325 Last dose of Hold given on 06/05/18 at 1529 Previous Regimen: 4mg/day except 2 mg Sat/Sun Vitamin K given: Y 05/19: 10 MG SUB-Q, 05/20: 5 MG IV Drug Interaction Changes: New Interacting Drug Ongoing Drug Interactions: Zosyn A:INR of 3.3 is above desired range. Target range for this patient is: 2 -3 P: Warfarin dose: 1 mg Today at 1600 Bridge Therapy: None Next INR due IN AM Pharmacy anticoagulation service will continue to follow. ANTHONY RODRIGUES [facility], 06/06/18 [id number]
--- NOTE | 2018-06-06 15:45 | NUR ---
Wound Care Pt seen for wound care f/u for multiple wounds, see wound assessment. 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 Pt currently is not wearing the [employer] stocking and brace, per pt's , they are waiting on [employer] to bring a new stocking, will call [employer] for f/u, as it has been several days. L lateral ankle ulcer with half eschar covering half red granulation tissue, changed dressing to Medihoney alginate to help autolytically debride and cover with foam dressing, change every 3-4 days. Pt had small BM, danae areas and catheter care completed. Pt's coccyx area is healed/closed, new skin covering, continued with A&D ointment for protection, and anal wound still with necrotic tissue present, Prep H applied and left MIKE as a dressing would not stay in place. L upper arm skin tear almost healed, contact layer and foam applied. Pt repositioned onto R side with wedge and pillows, heel and stump floated.
[2018-06-06] MEDS ORDERED: WARFARIN 2 MG TABLET. PO ONE (16:00)
[2018-06-06] MEDS ORDERED: WARFARIN 1 MG TABLET. PO ONE (16:00)
--- NOTE | 2018-06-06 16:09 | NUR ---
AMAURI following pt. [facility] is preferred provider for [place]. Spoke with Neha at [facility] and pt will be responsible for 1065.41/week and 18.42/day for supplies until deductible are met. Neha reported prices will change after the two weeks as pt might meet pt responsibility and insurance will cover most cost. Discussed with pt's via phone who stated they are not able to afford as they live on fixed Social security income/has a lot bills to pay. AMAURI discussed about payment plans informing pt is not able to stay in the hospital for 4-6 weeks. Pt's agreeable to see how the payment plans will be and wants to discuss options. Discussed with Neha from [facility] and informed her pt might benefit form financial hardship application if they meet criteria. Neha to reach out to pt's to discuss payment options. AMAURI will follow up in the morning.
[2018-06-06 19:00] VITALS: BP 108/39
[2018-06-06] MEDS: ATORVASTATIN CALCIUM 40 MG TABLET. PO SCH (21:46)
[2018-06-06] MEDS: risperiDONE 1 MG TABLET. PO SCH (21:47)
[2018-06-06 22:52] VITALS: BP 105/79
[2018-06-07 03:00] VITALS: BP 121/82
[2018-06-07 06:30] LABS: PROTHROMBIN TIME PATIENT 36.1 SEC (11.7-14.0)
[2018-06-07 07:00] VITALS: BP 122/32
[2018-06-07] MEDS: IPRATRPIUM/ALBUTEROL 0.5/2.5MG 3 ML NEBU. NEB SCH ×5 (07:15→22:00)
[2018-06-07] MEDS: INSULIN LISPRO 300 UNITS/3 ML INSULN.PEN. SQ SCH ×4 (08:00→17:00)
--- NOTE | 2018-06-07 09:24 | NUR ---
SW following pt. Spoke with Neha and a [facility] financial office will contact pt's to apply for financial hardship application today. Neha will also do a bedside teach with pt's today. Pt's wants to continue HH with [facility]. AMAURI will fax orders once Rx is available. Discussed with ID.
[2018-06-07] MEDS: POTASSIUM CHLORIDE 20 MEQ TABLET.ER. PO SCH (09:29)
[2018-06-07] MEDS: GABAPENTIN 300 MG CAPSULE. PO SCH (09:29)
[2018-06-07] MEDS: levETIRAcetam 250 MG TABLET PO SCH ×2 (09:30→22:21)
[2018-06-07] MEDS: ASCORBIC ACID 500 MG TABLET PO SCH (09:30)
[2018-06-07] MEDS: MULTIVITAMIN with MINERAL TABLET. PO SCH (09:30)
[2018-06-07] MEDS: FUROSEMIDE 40 MG TABLET. PO SCH (09:30)
[2018-06-07] MEDS: metFORMIN 500 MG TABLET PO SCH ×2 (09:31→17:40)
[2018-06-07] MEDS: METOPROLOL TART IMMED RELEASE 50 MG TABLET. PO SCH ×2 (09:31→21:00)
[2018-06-07] MEDS: ASPIRIN ENTERIC COATED 81 MG TABLET.DR. PO SCH (09:32)
[2018-06-07] MEDS: hydrALAZINE 10 MG TABLET PO SCH ×3 (09:32→21:00)
[2018-06-07] MEDS: POLYETHYLENE GLYCOL 3350 17 GM PACKET. PO SCH (09:35)
--- NOTE | 2018-06-07 09:36 | PDOC ---
Infectious Disease Note Subjective Subjective pt is feeling good, wants to go home ( not SNF ) ROS ROS no n/v/d/ did have low grade fever Vital Sign Vital Signs Vital Signs Date Time Temp Pulse Resp B/P (MAP) Pulse Ox O2 Delivery O2 Flow Rate FiO2 06/07/18 07:16 Nasal Cannula 2.0 06/07/18 07:00 96.6 96 16 122/32 (62) 94 96.6 Physical Exam PHYSICAL EXAM GEN: Lying down, talkative HEENT: Normal conjunctivae. Oral cavity, pharynx pink, dry NECK: Supple. LUNGS: Clear anteriorly HEART: S1 and S2, soft murmur. ABDOMEN: Obese, soft and non tender with bowel sounds present. GENITOURINARY: Indwelling Crawley in place. EXTREMITIES: Right BKA incision well approx w/ matti, clean Left ankle wou nd, no bone exposure or area redness SKIN: Warm without rash. Several tattoos. NEUROLOGIC: Arouses to name follows commands, depressed PICC RUE - clean Labs Lab Laboratory Tests Test 06/06/18 11:38 06/06/18 16:28 06/06/18 21:10 06/07/18 06:00 Glucose (Fingerstick) 141 mg/dL (70-99) 177 mg/dL (70-99) 161 mg/dL (70-99) Prothrombin Time 36.1 SEC (11.7-14.0) Prothromb Time International Ratio 3.6 (0.8-1.1) Objective Assessment Fevers better overall. repeat UA and BC from 05/24 neg so far Leukocytosis - better Constipation ? cholecystitis - non tender better MRSA bacteremia (4 of 4 bottles) with sepsis, POA source possible foot infection- Dapto sensitive 05/18 -CRYSTAL done no vegetations 05/21; BC from 05/20 & 05/21 neg Infected necrotic ulcer left ankle s/p I and D 05/21. MRSA and Enterobacter ( R Augmentin/cefuroxime) - no exposed bone. 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 Severe PAD s/p BLE stents and previous toe amputations Bioprosthetic aortic valve Renal insufficiency/JIMMY - better Encephalopathy - improved but still some confusion Coagulopathy, on chronic warfarin A- fib RVR Diabetes Type II h/o PSA ( R quinolones & I imipenem) h/o group B strep bacteremia, 2016 Plan Plan of Care Cont Dapto (susceptible 05/18)- 6 weeks = July 02 (last CPK 05/31 was 218) Monitor labs CK/CMP/CBC with diff Q Monday while on Daptomycin Local wound care and offloading left ankle wound is not infected, but it is on lat malleolus, and the way his foot rotates and sits on it , likely will get worse D/w nursing f/u with us in 2 wks wkly cbc, bun/cr, sed rate, cpk , fax to [phone] DAYANA CATES MD June 07, 2018 09:36
[2018-06-07] MEDS: ZONISAMIDE 100 MG CAPSULE. PO SCH (09:39)
[2018-06-07] MEDS: VITS A & D/LANOLIN TOPICAL OINTMENT 56GM TUBE. TP SCH ×2 (09:40→21:00)
[2018-06-07] MEDS: PHENYLEPH/MINERAL OIL/PETROLAT RECTAL OINTMENT 28GM TUBE. RC SCH ×3 (09:40→21:00)
[2018-06-07] MEDS: ACETAMINOPHEN/CODEINE 300/30MG TABLET. PO PRN (10:22)
[2018-06-07 11:12] VITALS: BP_SYST 122; BP_SYST 129; BP_DIAS 35; BP_DIAS 40
--- NOTE | 2018-06-07 12:16 | NUR ---
Pharmacy Warfarin Dosing Note S:Pharmacy consulted to assist with anticoagulation therapy started with target INR: 2 -3 O:VICKI BRAUN is a 78 year old M with Atrial Fibrillation Bioprosthetic Valve LABS: Last INR: 3.6 Last HGB: 7.7 Last HCT: 24.1 Last PLT: 325 Last dose of 1 mg given on 06/06/18 at 1529 Previous Regimen: 4mg/day except 2 mg Sat/Sun Vitamin K given: Y 05/19: 10 MG SUB-Q, 05/20: 5 MG IV Drug Interaction Changes: New Interacting Drug Ongoing Drug Interactions: Zosyn A:INR of 3.6 is above desired range. Target range for this patient is: 2 -3 P: Warfarin dose: Hold Today at 1600 Bridge Therapy: None Next INR due IN AM Pharmacy anticoagulation service will continue to follow. ANTHONY RODRIGUES [facility], 06/07/18 3330
[2018-06-07] MEDS: DAPTOmycin (GENERIC) IVPB 590 MG in IV NORMAL SALINE 50ML 50 ML IV SCH (13:08)
--- NOTE | 2018-06-07 13:38 | PDOC ---
PROGRESS NOTES Chief Complaint Chief Complaint Severe sepsis cellulitis w/ gangrenous toes MRSA bacteremia (4 of 4 bottles) with sepsis, POA source //foot infection post Right below-knee amputation -CRYSTAL done no vegetations 05/21; BC from 05/20 & 05/21 neg A. 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 A neoplastic etiology cannot be excluded and CT follow-up may be prudent. Small bilateral pleural effusions with mild bibasilar atelectasis. Distended gallbladder containing material of medium density. This may represent sludge Cont Dapto (susceptible 05/18)- 6 weeks = Jul 02 2018 History of Present Illness History of Present Illness Patient seen and examined I discussed the case with the case management team in detail Patient is very depressed and just wants to go home with hospice We'll most likely have to arrange home with home health as the doesn't want hospice (I spoke with her yesterday by phone) Vitals Vitals Vital Signs Date Time Temp Pulse Resp B/P (MAP) Pulse Ox O2 Delivery O2 Flow Rate FiO2 06/07/18 12:39 93 Room Air 2.0 06/07/18 11:12 98.6 73 16 129/35 (66) 98.6 Physical Exam Physical Exam GEN: Lying down, talkative HEENT: Normal conjunctivae. Oral cavity, pharynx pink, dry NECK: Supple. LUNGS: Clear anteriorly HEART: S1 and S2, soft murmur. ABDOMEN: Obese, soft and non tender with bowel sounds present. GENITOURINARY: Indwelling Crawley in place. EXTREMITIES: Right BKA incision well approx w/ matti, clean Left ankle wound, no bone exposure or area redness SKIN: Warm without rash. Several tattoos. NEUROLOGIC: Arouses to name follows commands, depressed PICC RUE - clean 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 right, chronic hyperpigmentation bilateral shins and foot) Labs LABS Laboratory Tests Test 06/06/18 16:28 06/06/18 21:10 06/07/18 06:00 06/07/18 11:22 Glucose (Fingerstick) 177 mg/dL (70-99) 161 mg/dL (70-99) 107 mg/dL (70-99) Prothrombin Time 36.1 SEC (11.7-14.0) Prothromb Time International Ratio 3.6 (0.8-1.1) Review of Systems Review of Systems Complains of depression and weakness Assessment and Plan Assessmemt and Plan Problems Medical Problems: (1) Fever Status: Acute (2) Gangrene of toe Status: Acute (3) Leukocytosis Status: Acute (4) Severe sepsis Status: Acute Severe sepsis cellulitis w/ gangrenous toes MRSA bacteremia (4 of 4 bottles) with sepsis, POA source //foot infection post Right below-knee amputation -CRYSTAL done no vegetations 05/21; BC from 05/20 & 05/21 neg A. 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 A neoplastic etiology cannot be excluded and CT follow-up may be prudent. Small bilateral pleural effusions with mild bibasilar atelectasis. Distended gallbladder containing material of medium density. This may represent sludge Cont Dapto (susceptible 05/18)- 6 weeks = Jul 02 2018 Plan Continue current treatment but will arrange home with home health for tomorrow morning Eventually he needs to be transitioned back to hospice care which is what he wants DVT prophylaxis Wound care IV fluids Long-term prognosis terminal Comment Review of Relevant I have reviewed the following items navi (where applicable) has been applied. Labs Laboratory Tests Test 06/05/18 16:44 06/05/18 19:31 06/06/18 02:40 06/06/18 07:31 Glucose (Fingerstick) 115 mg/dL (70-99) 109 mg/dL (70-99) 155 mg/dL (70-99) Prothrombin Time 33.6 SEC (11.7-14.0) Prothromb Time International Ratio 3.3 (0.8-1.1) Test 06/06/18 11:38 06/06/18 16:28 06/06/18 21:10 06/07/18 06:00 Glucose (Fingerstick) 141 mg/dL (70-99) 177 mg/dL (70-99) 161 mg/dL (70-99) Prothrombin Time 36.1 SEC (11.7-14.0) Prothromb Time International Ratio 3.6 (0.8-1.1) Test 06/07/18 11:22 Glucose (Fingerstick) 107 mg/dL (70-99) Laboratory Tests Test 06/06/18 16:28 06/06/18 21:10 06/07/18 06:00 06/07/18 11:22 Glucose (Fingerstick) 177 mg/dL (70-99) 161 mg/dL (70-99) 107 mg/dL (70-99) Prothrombin Time 36.1 SEC (11.7-14.0) Prothromb Time International Ratio 3.6 (0.8-1.1) Microbiology 05/27/18 Blood Culture - Final, Complete NO GROWTH AFTER 5 DAYS 05/19/18 Urine Culture - Final, Complete 05/19/18 Urine Culture Result 1 (FELICITA) - Final, Complete 05/19/18 Anaerobic/Aerobic Culture - Final, Complete 05/19/18 Anaerobic Culture Result 1 (FELICITA) - Final, Complete 05/19/18 Aerobic Culture - Final, Complete 05/19/18 Aerobic Culture Result 1 (FELICITA) - Final, Complete 05/19/18 Aerobic Culture Result 2 (FELICITA) - Final, Complete 05/19/18 Antimicrobic Susceptibility - Final, Complete 05/19/18 Gram Stain - Final, Complete 05/19/18 Gram Stain Result 1 (FELICITA) - Final, Complete 05/19/18 Gram Stain Result 2 (FELICITA) - Final, Complete Medications Current Medications Sodium Chloride 1,000 ml @ 2,190 mls/hr Q28M IV Last administered on 05/18/18at 14:36; Start 05/18/18 at 12:52; Stop 05/18/18 at 13:52; Status DC Piperacillin Sod/ Tazobactam Sod 4.5 gm/Sodium Chloride 100 ml @ 200 mls/hr 1X ONCE IV Last administered on 05/18/18at 14:34; Start 05/18/18 at 13:00; Stop 05/18/18 at 13:29; Status DC Vancomycin HCl (Vanco Per Pharmacy) 1 each 1X ONCE MC Last administered on 05/18/18at 13:00; Start 05/18/18 at 13:00; Stop 05/18/18 at 13:11; Status DC Vancomycin HCl 2 gm/Sodium Chloride 500 ml @ 250 mls/hr 1X ONCE IV Last administered on 05/18/18at 15:28; Start 05/18/18 at 13:15; Stop 05/18/18 at 15:14; Status DC Ondansetron HCl (Zofran) 4 mg PRN Q8HRS PRN IV NAUSEA/VOMITING; Start 05/18/18 at 14:45; Stop 05/18/18 at 15:28; Status DC Fentanyl Citrate (Fentanyl 2ml Vial) 50 mcg PRN Q1HR PRN IV PAIN; Start 05/18/18 at 14:45; Stop 05/19/18 at 11:50; Status DC Sodium Chloride 1,000 ml @ 80 mls/hr [id number] IV ; Start 05/18/18 at 14:43; Stop 05/18/18 at 18:42; Status DC Acetaminophen (Tylenol) 650 mg 1X ONCE PO Last administered on 05/18/18at 15:29; Start 05/18/18 at 15:30; Stop 05/18/18 at 15:31; Status DC Ondansetron HCl (Zofran) 4 mg PRN Q6HRS PRN IV NAUSEA/VOMITING Last administered on 05/24/18at 06:14; Start 05/18/18 at 15:30 Diltiazem HCl (Cardizem Iv Push) 10 mg 1X ONCE IVP ; Start 05/18/18 at 15:30; Stop 05/18/18 at 15:31; Status DC Acetaminophen (Tylenol) 500 mg PRN Q6HRS PRN PO MILD PAIN / TEMP; Start 05/18/18 at 15:30; Stop 05/18/18 at 16:14; Status DC Acetaminophen/ Codeine Phosphate (Tylenol #3) 1 tab PRN Q6HRS PRN PO MODERATE PAIN Last administered on 06/07/18 10:22; Start 05/18/18 at 15:30 Morphine Sulfate (Morphine Sulfate) 2 mg PRN Q2HR PRN IV PAIN Last administered on 06/03/18 13:22; Start 05/18/18 at 15:30 Oxycodone/ Acetaminophen (Percocet 5/325) 1 tab PRN Q4HRS PRN PO SEVERE PAIN Last administered on 06/02/18 19:11; Start 05/18/18 at 15:30 Albuterol Sulfate (Ventolin Hfa) 2 puff PRN Q6HRS PRN IH SHORTNESS OF BREATH; Start 05/18/18 at 15:30; Status UNV Digoxin (Lanoxin) 125 mcg DAILY PO ; Start 05/19/18 at 09:00; Stop 05/19/18 at 09:00; Status DC Furosemide (Lasix) 40 mg DAILY PO Last administered on 06/07/18 09:30; Start 05/19/18 at 09:00 Gabapentin (Neurontin) 300 mg DAILY PO Last administered on 06/07/18 09:29; Start 05/19/18 at 09:00 Lisinopril (Prinivil) 20 mg DAILY PO Last administered on 05/19/18 10:14; Start 05/19/18 at 09:00; Stop 05/24/18 at 15:20; Status DC Metoprolol Tartrate (Lopressor) 50 mg BID PO Last administered on 06/07/18 09:31; Start 05/18/18 at 21:00 Oxycodone/ Acetaminophen (Percocet 10/325) 1 tab PRN Q6HRS PRN PO SEVERE PAIN (2ND Choice) Last administered on 06/06/18 18:04; Start 05/18/18 at 15:30 Oxycodone/ Acetaminophen (Percocet 5/325) 1 tab PRN Q4HRS PRN PO PAIN; Start 05/18/18 at 15:30; Status UNV Acetaminophen (Tylenol) 500 mg PRN Q6HRS PRN PO MILD PAIN / TEMP Last administered on 05/27/18 23:35; Start 05/18/18 at 16:15 Atorvastatin Calcium (Lipitor) 80 mg QHS PO Last administered on 06/06/18 21:46; Start 05/18/18 at 21:00 Hydralazine HCl (Apresoline) 10 mg TID PO Last administered on 06/07/18 09:32; Start 05/18/18 at 16:00 Insulin Human Lispro (HumaLOG) 10 units DAILYWBKFT SQ Last administered on 05/23/18 08:58; Start 05/18/18 at 17:00; Stop 05/23/18 at 14:25; Status DC Levetiracetam (Keppra) 1,250 mg BID PO Last administered on 06/07/18 09:30; Start 05/18/18 at 21:00 Metformin HCl (Glucophage) 1,000 mg BIDWMEALS PO Last administered on 06/07/18 09:31; Start 05/18/18 at 17:00 Multivitamins (Thera M Plus) 1 tab DAILY PO Last administered on 06/07/18 09:30; Start 05/19/18 at 09:00 Potassium Chloride (Klor-Con) 20 meq DAILYWBKFT PO Last administered on 06/07/18 09:29; Start 05/19/18 at 08:00 Risperidone (RisperDAL) 1 mg QHS PO Last administered on 06/06/18 21:47; Start 05/18/18 at 21:00 Non-Formulary Medication (Rosuvastatin Calcium (Crestor)) 40 mg DAILY PO ; Start 05/19/18 at 09:00; Status UNV Zonisamide (Zonegran) 400 mg DAILY PO Last administered on 06/07/18 09:39; Start 05/19/18 at 09:00 Albuterol/ Ipratropium (Duoneb) 3 ml Q4HRS W/A NEB Last administered on 06/07/18 11:30; Start 05/18/18 at 18:00 Insulin Human Lispro (HumaLOG) 0-9 UNITS TIDWMEALS SQ Last administered on 05/26/18 18:04; Start 05/18/18 at 17:00 Dextrose (Dextrose 50%-Water Syringe) 12.5 gm PRN Q15MIN PRN IV SEE COMMENTS Last administered on 05/25/18 06:04; Start 05/18/18 at 15:30 Albuterol Sulfate (Ventolin Neb Soln) 2.5 mg PRN Q6HRS PRN NEB SHORTNESS OF BREATH Last administered on 05/26/18at 08:35; Start 05/18/18 at 15:45 Piperacillin Sod/ Tazobactam Sod 3.375 gm/Sodium Chloride 50 ml @ 100 mls/hr Q6HRS IV Last administered on 05/24/18at 05:33; Start 05/18/18 at 18:00; Stop 05/24/18 at 08:09; Status DC Potassium Chloride (Klor-Con) 40 meq 1X ONCE PO Last administered on 05/19/18at 10:14; Start 05/19/18 at 08:30; Stop 05/19/18 at 08:31; Status DC Heparin Sodium (Porcine) (Heparin Sodium) 5,000 unit Q8HRS SQ ; Start 05/19/18 at 14:00; Stop 05/19/18 at 14:00; Status DC Furosemide (Lasix) 40 mg 1X ONCE IVP Last administered on 05/19/18at 10:12; Start 05/19/18 at 08:45; Stop 05/19/18 at 08:46; Status DC Phytonadione (Vitamin K Ampule) 10 mg 1X ONCE SQ Last administered on 05/19/18at 10:16; Start 05/19/18 at 10:00; Stop 05/19/18 at 10:01; Status DC Vancomycin HCl (Vanco Per Pharmacy) 1 each PRN DAILY PRN MC SEE COMMENTS Last administered on 05/19/18at 10:32; Start 05/19/18 at 10:00; Stop 05/20/18 at 10:42; Status DC Phytonadione (Vitamin K Ampule) 10 mg 1X ONCE SQ ; Start 05/19/18 at 10:15; Stop 05/19/18 at 10:16; Status UNV Vancomycin HCl 1.75 gm/Sodium Chloride 500 ml @ 250 mls/hr Q24H IV Last adm inistered on 05/19/18at 16:59; Start 05/19/18 at 16:00; Stop 05/20/18 at 10:42; Status DC Vancomycin HCl (Vancomycin Trough Level) 1 each 1X ONCE MC ; Start 05/20/18 at 16:30; Stop 05/20/18 at 16:30; Status DC Acetaminophen (Tylenol Supp) 650 mg PRN Q6HRS PRN MD MILD PAIN / TEMP Last administered on 05/23/18at 23:33; Start 05/20/18 at 01:15 Sodium Chloride 500 ml @ 333 mls/hr 1X ONCE IV Last administered on 05/20/18at 01:14; Start 05/20/18 at 01:15; Stop 05/20/18 at 02:45; Status DC Phytonadione 5 mg/ Dextrose 50.5 ml @ 101 mls/hr 1X ONCE IV Last administered on 05/20/18at 10:08; Start 05/20/18 at 10:30; Stop 05/20/18 at 10:59; Status DC Daptomycin 590 mg/ Sodium Chloride 50 ml @ 100 mls/hr Q24H IV Last administered on 06/07/18at 13:08; Start 05/20/18 at 12:00 Ondansetron HCl (Zofran) 4 mg PRN Q6HRS PRN IV NAUSEA/VOMITING; Start 05/21/18 at 09:45; Stop 05/22/18 at 09:44; Status DC Fentanyl Citrate (Fentanyl 2ml Vial) 25 mcg PRN Q5MIN PRN IV MILD PAIN; Start 05/21/18 at 09:45; Stop 05/22/18 at 09:44; Status DC Fentanyl Citrate (Fentanyl 2ml Vial) 50 mcg PRN Q5MIN PRN IV MODERATE TO SEVERE PAIN; Start 05/21/18 at 09:45; Stop 05/22/18 at 09:44; Status DC Morphine Sulfate (Morphine Sulfate) 1 mg PRN Q10MIN PRN IV SEVERE PAIN; Start 05/21/18 at 09:45; Stop 05/22/18 at 09:44; Status DC Ringer's Solution 1,000 ml @ 30 mls/hr Q24H IV ; Start 05/21/18 at 09:39; Stop 05/22/18 at 00:37; Status DC Lidocaine HCl (Xylocaine-Mpf 1% 2ml Vial) 2 ml 1X PRN PRN ID IV START; Start 05/21/18 at 09:45; Stop 05/22/18 at 09:44; Status DC Hydromorphone HCl (Dilaudid) 0.5 mg PRN Q10MIN PRN IV SEV PAIN, Second choice; Start 05/21/18 at 09:45; Stop 05/22/18 at 09:44; Status DC Prochlorperazine Edisylate (Compazine) 5 mg PACU PRN PRN IV NAUSEA, MRX1; Start 05/21/18 at 09:45; Stop 05/22/18 at 09:44; Status DC Lidocaine HCl (Glydo (Lidocaine) Jelly) 1 vianney 1X ONCE MM ; Start 05/21/18 at 12:30; Stop 05/21/18 at 12:31; Status DC Propofol 20 ml @ As Directed STK-MED ONCE IV ; Start 05/21/18 at 12:27; Stop 05/21/18 at 12:28; Status DC Dexamethasone Sodium Phosphate (Decadron) 20 mg STK-MED ONCE .ROUTE ; Start 05/21/18 at 12:27; Stop 05/21/18 at 12:28; Status DC Famotidine (Pepcid Vial) 20 mg STK-MED ONCE .ROUTE ; Start 05/21/18 at 12:27; Stop 05/21/18 at 12:28; Status DC Lidocaine HCl (Lidocaine Pf 2% Vial) 5 ml STK-MED ONCE .ROUTE ; Start 05/21/18 at 12:27; Stop 05/21/18 at 12:28; Status DC Ondansetron HCl (Zofran) 4 mg STK-MED ONCE .ROUTE ; Start 05/21/18 at 12:27; Stop 05/21/18 at 12:28; Status DC Fentanyl Citrate (Fentanyl 2ml Vial) 100 mcg STK-MED ONCE .ROUTE ; Start 05/21/18 at 12:27; Stop 05/21/18 at 12:28; Status DC Bacitracin 48557 unit/Sodium Chloride 500 ml @ 500 mls/hr 1X ONCE IRR ; Start 05/21/18 at 12:40; Stop 05/21/18 at 13:39; Status DC Cefazolin Sodium 1 gm/Sodium Chloride 500 ml @ 500 mls/hr 1X ONCE IRR ; Start 05/21/18 at 12:40; Stop 05/21/18 at 13:39; Status DC Lidocaine HCl 20 ml STK-MED ONCE .ROUTE ; Start 05/21/18 at 11:42; Stop 05/21/18 at 12:42; Status DC Esmolol HCl (Brevibloc) 100 mg STK-MED ONCE IVP ; Start 05/21/18 at 13:01; Stop 05/21/18 at 13:02; Status DC Esmolol HCl (Brevibloc) 100 mg STK-MED ONCE IVP ; Start 05/21/18 at 14:22; Stop 05/21/18 at 14:23; Status DC Neomycin/ Polymyxin/ Bacitracin (Triple Antibiotic Ointment) 1 pkt STK-MED ONCE TP Last administered on 05/21/18at 14:41; Start 05/21/18 at 13:38; Stop 05/21/18 at 14:38; Status DC Sevoflurane (Ultane) 90 ml STK-MED ONCE IH ; Start 05/21/18 at 14:40; Stop 05/21/18 at 14:41; Status DC Naloxone HCl (Narcan) 0.4 mg PRN Q2MIN PRN IV SEE INSTRUCTIONS; Start 05/21/18 at 15:00 Sodium Chloride 1,000 ml @ 25 mls/hr Q24H IV ; Start 05/21/18 at 14:57; Stop 05/24/18 at 07:00; Status DC Morphine Sulfate 30 ml @ 0 mls/hr CONT PRN PRN IV PER PROTOCOL; Start 05/21/18 at 15:00 Labetalol HCl (Normodyne Iv Push) 20 mg PRN Q2HR PRN IVP HYPERTENSION, SEE COMMENTS Last administered on 05/24/18at 00:15; Start 05/21/18 at 15:30 Labetalol HCl (Normodyne Iv Push) 5 mg 1X PACU PRN IVP tachycardia and HTN Last administered on 05/21/18at 15:30; Start 05/21/18 at 15:30; Stop 05/22/18 at 09:09; Status DC Insulin Glargine (Lantus) 3 units 1X ONCE SQ Last administered on 05/21/18at 22:00; Start 05/21/18 at 22:00; Stop 05/22/18 at 01:31; Status DC Aspirin (Ecotrin) 81 mg DAILYWBKFT PO Last administered on 06/07/18at 09:32; Start 05/23/18 at 08:00 Digoxin (Lanoxin) 250 mcg 1X ONCE IV Last administered on 05/22/18at 12:28; Start 05/22/18 at 12:30; Stop 05/22/18 at 12:31; Status DC Warfarin Sodium (Coumadin) 6 mg DAILY16 PO ; Start 05/22/18 at 16:00; Stop 05/22/18 at 16:00; Status DC Warfarin Sodium (Coumadin) 2.5 mg 3X/WEEK PO ; Start 05/23/18 at 09:00; Status UNV Warfarin Sodium (Coumadin Per Physician) 1 each PRN DAILY PRN MC SEE COMMENTS; Start 05/22/18 at 14:45; Stop 05/22/18 at 14:57; Status DC Warfarin Sodium (Coumadin Per Pharmacy) 1 each PRN DAILY PRN MC SEE COMMENTS Last administered on 06/07/18at 12:13; Start 05/22/18 at 15:00 Warfarin Sodium (Coumadin) 4 mg 1X WARF ONCE PO Last administered on 05/22/18at 16:19; Start 05/22/18 at 16:00; Stop 05/22/18 at 16:01; Status DC Warfarin Sodium (Coumadin) 4 mg 1X WARF ONCE PO ; Start 05/23/18 at 16:00; Stop 05/23/18 at 16:01; Status DC Ringer's Solution 1,000 ml @ 75 mls/hr [id number] IV ; Start 05/23/18 at 13:45; Status Cancel Ringer's Solution 1,000 ml @ 75 mls/hr [id number] IV Last administered on 06/02/18at 13:17; Start 05/23/18 at 14:00; Stop 06/02/18 at 18:01; Status DC Insulin Human Lispro (HumaLOG) 7 units DAILYWBKFT SQ ; Start 05/24/18 at 08:00; Stop 05/25/18 at 12:44; Status DC Dextrose (Dextrose 50%-Water Syringe) 25 gm 1X ONCE IV Last administered on 05/23/18at 13:15; Start 05/23/18 at 17:45; Stop 05/23/18 at 17:46; Status DC Meropenem 500 mg/ Sodium Chloride 50 ml @ 100 mls/hr Q6HRS IV Last administered on 06/01/18at 05:32; Start 05/24/18 at 12:00; Stop 06/01/18 at 09:46; Status DC Warfarin Sodium (Coumadin) 6 mg 1X WARF ONCE PO Last administered on 05/24/18 15:33; Start 05/24/18 at 16:00; Stop 05/24/18 at 16:01; Status DC Insulin Human Lispro (HumaLOG) 3 units DAILYWBKFT SQ Last administered on 06/05/18 09:39; Start 05/26/18 at 08:00 Warfarin Sodium (Coumadin) 6 mg 1X WARF ONCE PO Last administered on 05/25/18 16:04; Start 05/25/18 at 16:00; Stop 05/25/18 at 16:01; Status DC Polyethylene Glycol (miraLAX PACKET) 17 gm DAILY PO Last administered on 06/07/18 09:35; Start 05/26/18 at 14:00 Warfarin Sodium (Coumadin) 7.5 mg 1X WARF ONCE PO Last administered on 05/27/18 17:56; Start 05/27/18 at 16:00; Stop 05/27/18 at 16:01; Status DC Micafungin Sodium 100 mg/Dextrose 100 ml @ 100 mls/hr Q24H IV Last administered on 06/03/18 12:02; Start 05/27/18 at 12:00; Stop 06/04/18 at 09:49; Status DC Warfarin Sodium (Coumadin) 6 mg 1X WARF ONCE PO Last administered on 05/28/18 17:32; Start 05/28/18 at 16:00; Stop 05/28/18 at 16:01; Status DC Ascorbic Acid (Vitamin C) 500 mg DAILY PO Last administered on 06/07/18 09:30; Start 05/28/18 at 16:00 Warfarin Sodium (Coumadin) 6 mg 1X WARF ONCE PO Last administered on 05/29/18 17:04; Start 05/29/18 at 16:00; Stop 05/29/18 at 16:01; Status DC Warfarin Sodium (Coumadin) 6 mg 1X WARF ONCE PO Last administered on 05/30/18 15:29; Start 05/30/18 at 16:00; Stop 05/30/18 at 16:01; Status DC Lidocaine/Sodium Bicarbonate (Buffered Lidocaine 1%) 3 ml STK-MED ONCE .ROUTE ; Start 05/30/18 at 13:48; Stop 05/30/18 at 13:49; Status DC Warfarin Sodium (Coumadin) 6 mg 1X WARF ONCE PO Last administered on 05/31/18at 17:23; Start 05/31/18 at 16:00; Stop 05/31/18 at 16:01; Status DC Warfarin Sodium (Coumadin) 3 mg 1X WARF ONCE PO Last administered on 06/01/18at 16:14; Start 06/01/18 at 16:00; Stop 06/01/18 at 16:01; Status DC Vitamin A/Vitamin D (Vitamin A & D Ointment) 1 vianney BID TP Last administered on 06/07/18 09:40; Start 06/01/18 at 21:00 Phenyleph/Shark Oil/Min Oil/Petrol (Preparation H) 1 vianney TID RC Last administered on 06/07/18 09:40; Start 06/02/18 at 14:00 Alteplase, Recombinant (Cathflo For Central Catheter Clearance) 1 mg 1X ONCE INT CAT Last administered on 06/02/18 13:16; Start 06/02/18 at 12:15; Stop 06/02/18 at 12:16; Status DC Warfarin Sodium (Coumadin - No Dose Today) 1 each 1X WARF ONCE MC Last administered on 06/02/18at 16:00; Start 06/02/18 at 16:00; Stop 06/02/18 at 16:01; Status DC Sodium Chloride 1,000 ml @ 1,000 mls/hr 1X ONCE IV Last administered on 06/03/18at 10:44; Start 06/03/18 at 10:30; Stop 06/03/18 at 11:29; Status DC Warfarin Sodium (Coumadin) 1 mg 1X WARF ONCE PO Last administered on 06/03/18at 17:36; Start 06/03/18 at 16:00; Stop 06/03/18 at 16:01; Status DC Warfarin Sodium (Coumadin - No Dose Today) 1 each 1X WARF ONCE MC Last administered on 06/04/18at 15:06; Start 06/04/18 at 16:00; Stop 06/04/18 at 16:01; Status DC Warfarin Sodium (Coumadin - No Dose Today) 1 each 1X WARF ONCE MC ; Start 06/05/18 at 16:00; Stop 06/05/18 at 16:01; Status DC Warfarin Sodium (Coumadin) 2 mg 1X WARF ONCE PO ; Start 06/06/18 at 16:00; Stop 06/06/18 at 16:00; Status DC Warfarin Sodium (Coumadin) 1 mg 1X WARF ONCE PO Last administered on 06/06/18at 18:03; Start 06/06/18 at 16:00; Stop 06/06/18 at 16:01; Status DC Warfarin Sodium (Coumadin - No Dose Today) 1 each 1X WARF ONCE MC ; Start 06/07/18 at 16:00; Stop 06/07/18 at 16:01 Active Scripts Active Digoxin 125 Mcg Tablet 125 Mcg PO DAILY Furosemide 40 Mg Tablet 40 Mg PO DAILY Metoprolol Tartrate 50 Mg Tablet 50 Mg PO BID [Warfarin Sodium] 1 EACH Each 1 Each MC PRN DAILY PRN Lisinopril 20 Mg Tablet 20 Mg PO DAILY Duoneb 0.5-3(2.5) Mg/3 Ml (Albuterol/Ipratropium) 3 Ml Ampul.neb 3 Ml NEB Q4HRS W/A 30 Days Hydralazine Hcl 10 Mg Tablet 10 Mg PO TID Reported Zonisamide 100 Mg Capsule 400 Mg PO DAILY Percocet 5-325 Mg Tablet (Oxycodone/Acetaminophen) 1 Each Tablet 1 Tab PO PRN Q4HRS PRN Multivitamins (Multivitamin) 1 Each Tablet 1 Tab PO DAILY Levetiracetam 250 Mg Tablet 1,250 Mg PO BID Novolin N (Nph, Human Insulin Isophane) 100 Unit/1 Ml Vial Unknown Dose SQ Atorvastatin Calcium 80 Mg Tablet 1 Tab PO DAILY Acetaminophen 500 Mg Tablet 1 Tab PO PRN Q6HRS PRN Albuterol Sulfate Hfa Inhaler (Albuterol Sulfate) 8.5 Gm Hfa.aer.ad 2 Puff IH PRN Q6HRS PRN Aspirin Ec (Aspirin) 325 Mg Tablet.dr 81 Mg PO DAILY Crestor (Rosuvastatin Calcium) 40 Mg Tablet 40 Mg PO DAILY Warfarin Sodium 5 Mg Tablet 6 Mg PO DAILY Warfarin Sodium 2.5 Mg Tablet 2.5 Mg PO 3X/WEEK monday,monday, Gabapentin (Gabapentin) 300 Mg Capsule 300 Mg PO DAILY Risperidone 1 Mg Tablet 1 Mg PO HS Novolog (Insulin Aspart) 100 Unit/1 Ml Vial 10 Unit SQ DAILYAC Oxycodone-Acetaminophen 10-325 (Oxycodone Hcl/Acetaminophen) 1 Each Tablet 1 Each PO PRN Q6HRS Potassium 99 Mg Tablet 20 Meq PO DAILY Prednisone (Prednisone) 10 Mg Tablet 10 Mg PO DAILY Metformin Hcl 500 Mg Tablet 1,000 Mg PO BIDBFRMEAL Vitals/I & O Vital Sign - Last 24 Hours 06/06/18 06/06/18 06/06/18 06/06/18 15:00 15:49 18:04 18:06 Temp 98.8 98.8 Pulse 64 64 Resp 18 20 B/P (MAP) 182/60 (100) 182/60 Pulse Ox 92 95 O2 Delivery Nasal Cannula Nasal Cannula Room Air O2 Flow Rate 2.0 2.0 06/06/18 06/06/18 06/06/18 06/06/18 19:00 19:04 20:22 21:47 Temp 100.1 100.1 Pulse 98 98 Resp 18 20 B/P (MAP) 108/39 (62) 108/39 Pulse Ox 94 95 88 O2 Delivery Nasal Cannula Room Air Room Air O2 Flow Rate 2.0 06/06/18 06/06/18 06/07/18 06/07/18 21:47 22:52 03:00 07:00 Temp 100.1 100.1 96.6 100.1 100.1 96.6 Pulse 98 107 51 96 Resp 19 18 16 B/P (MAP) 108/39 105/79 (88) 121/82 (95) 122/32 (62) Pulse Ox 96 99 94 O2 Delivery Nasal Cannula Nasal Cannula Room Air O2 Flow Rate 2.0 2.0 06/07/18 06/07/18 06/07/18 06/07/18 07:16 09:31 09:32 11:12 Temp 98.6 98.6 Pulse 69 69 73 Resp 16 B/P (MAP) 140/53 140/53 129/35 (66) Pulse Ox 94 O2 Delivery Nasal Cannula Room Air O2 Flow Rate 2.0 06/07/18 06/07/18 11:31 12:39 Pulse Ox 93 93 O2 Delivery Room Air Room Air O2 Flow Rate 2.0 Intake and Output 06/06/18 06/06/18 06/07/18 15:00 23:00 07:00 Intake Total 275 ml 0 ml Output Total 950 ml 300 ml Balance 275 ml -950 ml -300 ml Nutrition Consultation Dietary Evaluation: Recommendations by RD: Increase Calorie Intake, Protein supplementation Comments: Continue diet per [employer] with ADA/cardiac diet restrictions per pmhx, can liberalize as needed to provide foods that pt likes change Glucerna TID (chocolate) to ita ensure pudding tid Continue MVI and Vit C (500 mg BID) Expected Outcomes/Goals: PO intake to meet >75% est needs - not met, goal ongoing Malnutrition Findings: Food and Nutrition Intake (Mod: <75% est energy req 7days Weight Status: Obese OBI SOLANO III DO June 07, 2018 13:38
[2018-06-07 15:00] VITALS: BP 130/40
[2018-06-07] MEDS: oxyCODONE/APAP 10/325 1 TAB TABLET PO PRN (15:38)
--- NOTE | 2018-06-07 16:22 | NUR ---
SW following pt. [facility] is able to provide with IV abx at home and will assist family in applying for financial hardship. AMAURI then received a phone call from [facility] nursing technician who reported they will be taking pt's hospital bed and Shyla lift tomorrow as pt is not going on hospice. AMAURI notified RN regarding Rx for hospital bed and shyla lift for tomorrow. Orders faxed to [facility] and [facility].
[2018-06-07] MEDS: ALBUTEROL SULFATE 2.5 MG/3 ML NEBU. NEB PRN (17:05)
[2018-06-07 19:00] VITALS: BP 118/37
[2018-06-07] MEDS: ATORVASTATIN CALCIUM 40 MG TABLET. PO SCH (22:20)
[2018-06-07] MEDS: risperiDONE 1 MG TABLET. PO SCH (22:22)
[2018-06-07 23:00] VITALS: BP 124/59
[2018-06-08 03:00] VITALS: BP 148/58
[2018-06-08 05:35] LABS: PROTHROMBIN TIME PATIENT 31.8 SEC (11.7-14.0)
[2018-06-08 07:00] VITALS: BP 119/60
[2018-06-08] MEDS: IPRATRPIUM/ALBUTEROL 0.5/2.5MG 3 ML NEBU. NEB SCH ×3 (07:51→14:00)
[2018-06-08] MEDS: INSULIN LISPRO 300 UNITS/3 ML INSULN.PEN. SQ SCH ×4 (08:00→16:45)
[2018-06-08] MEDS: POLYETHYLENE GLYCOL 3350 17 GM PACKET. PO SCH ×2 (09:00→09:43)
--- NOTE | 2018-06-08 09:34 | NUR ---
SW following pt. SW spoke with pt's who is distressed about pt coming home today. SW provided assurance and informed pt unfortunately can not stay at [facility] for next 5-6 weeks. SW discussed SW will assist in arranging hospital bed, shyla lift and home 02 today. Pt's stated Hospice agency will be picking up equipment today and she is not sure what time they are coming. Pt's continued crying over the phone and SW provided emotional support via phone. Spoke with Faizan at [facility] and they will have an RN tomorrow. requesting if pt can dc tomorrow so her sons can help her with his transition. Awaiting on Rx for equipment to coordinate dc. Discussed with RN. Physician notified.
[2018-06-08] MEDS: levETIRAcetam 250 MG TABLET PO SCH (09:40)
[2018-06-08] MEDS: FUROSEMIDE 40 MG TABLET. PO SCH (09:40)
[2018-06-08] MEDS: metFORMIN 500 MG TABLET PO SCH ×2 (09:40→16:45)
[2018-06-08] MEDS: ASPIRIN ENTERIC COATED 81 MG TABLET.DR. PO SCH (09:40)
[2018-06-08] MEDS: MULTIVITAMIN with MINERAL TABLET. PO SCH (09:40)
[2018-06-08] MEDS: GABAPENTIN 300 MG CAPSULE. PO SCH (09:41)
[2018-06-08] MEDS: POTASSIUM CHLORIDE 20 MEQ TABLET.ER. PO SCH (09:41)
[2018-06-08] MEDS: ASCORBIC ACID 500 MG TABLET PO SCH (09:42)
[2018-06-08] MEDS: METOPROLOL TART IMMED RELEASE 50 MG TABLET. PO SCH (09:42)
[2018-06-08] MEDS: hydrALAZINE 10 MG TABLET PO SCH ×2 (09:42→14:02)
[2018-06-08] MEDS: VITS A & D/LANOLIN TOPICAL OINTMENT 56GM TUBE. TP SCH (09:43)
[2018-06-08] MEDS: PHENYLEPH/MINERAL OIL/PETROLAT RECTAL OINTMENT 28GM TUBE. RC SCH ×2 (09:43→14:02)
[2018-06-08] MEDS: ZONISAMIDE 100 MG CAPSULE. PO SCH (09:49)
[2018-06-08 11:00] VITALS: BP 120/34
--- NOTE | 2018-06-08 11:07 | NUR ---
Patient currently on 3L O2 via [place], patient de stated to 82% within one minute off of O2.
--- NOTE | 2018-06-08 11:31 | DS ---
DATE OF DISCHARGE: 06/08/2018 ADMISSION DIAGNOSES: Sepsis and wounds. DISCHARGE DIAGNOSES: Resolving sepsis, chronic wounds, history of methicillin-resistant Staphylococcus aureus bacteremia, atrial fibrillation with rapid ventricular response, vasomotor neuropathy, hypokalemia, diabetes, peripheral arterial disease and prosthetic heart valve. CONSULTS: Infectious Disease, wound care. HOSPITAL COURSE: The patient is a pleasant 78-year-old male who presented with sepsis. He was acutely ill. He had recent toe amputations. He was more confused. He had been seen by home health nurse. We admitted the patient. The above consults were obtained. We placed him on IV antibiotics and did aggressive wound care. Over the past couple of days, he has improved. I saw and examined him this morning. His heart tones were normal. His lungs were clear. His wounds were septic tank cleaner. He is bedridden and needs a hospital bed and a Phoebe lift. We plan to discharge to home with home health. DISPOSITION: Home with home health. ACTIVITY: Bed rest and he needs a hospital bed and a Phoebe lift. DIET: Low sodium. MEDICATIONS: I resumed his home meds and antibiotics per Infectious Disease. TOTAL TIME: 32 minutes. OBI SOLANO DO DR: GLENIS/arely JOB#: [id number] / [id number]
--- NOTE | 2018-06-08 11:52 | PDOC ---
[facility] PROGRESS NOTE Chief Complaint Chief Complaint Severe sepsis cellulitis w/ gangrenous toes MRSA bacteremia (4 of 4 bottles) with sepsis, POA source //foot infection post Right below-knee amputation -CRYSTAL done no vegetations 05/21; BC from 05/20 & 05/21 neg A. 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 A neoplastic etiology cannot be excluded and CT follow-up may be prudent Small bilateral pleural effusions with mild bibasilar atelectasis. Distended gallbladder containing material of medium density. This may represent sludge Cont Dapto (susceptible 05/18)- 6 weeks = Jul 02 2018 History of Present Illness History of Present Illness Patient seen and examined I discussed the case with the case management team in detail Patient is very depressed and just wants to go home with hospice We'll most likely have to arrange home with home health as the doesn't want hospice (I spoke with her yesterday by phone) I just arranged discharge to home with home health with a home hospital bed and a quarter left and home O2 with correctional case manager Vitals Vitals Vital Signs Date Time Temp Pulse Resp B/P (MAP) Pulse Ox O2 Delivery O2 Flow Rate FiO2 06/08/18 11:00 100.2 74 18 120/34 (62) 97 Nasal Cannula 3.0 100.2 Physical Exam Physical Exam GEN: Lying down, talkative HEENT: Normal conjunctivae. Oral cavity, pharynx pink, dry NECK: Supple. LUNGS: Clear anteriorly HEART: S1 and S2, soft murmur. ABDOMEN: Obese, soft and non tender with bowel sounds present. GENITOURINARY: Indwelling Crawley in place. EXTREMITIES: Right BKA incision well approx w/ matti, clean Left ankle wound, no bone exposure or area redness SKIN: Warm without rash. Several tattoos. NEUROLOGIC: Arouses to name follows commands, depressed PICC RUE - clean 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 right, chronic hyperpigmentation bilateral shins and foot) Labs LABS Laboratory Tests Test 06/07/18 16:58 06/07/18 20:30 06/08/18 05:15 06/08/18 07:48 Glucose (Fingerstick) 107 mg/dL (70-99) 115 mg/dL (70-99) 93 mg/dL (70-99) Prothrombin Time 31.8 SEC (11.7-14.0) Prothromb Time International Ratio 3.1 (0.8-1.1) Test 06/08/18 11:39 Glucose (Fingerstick) 114 mg/dL (70-99) Assessment and Plan Assessmemt and Plan Problems Medical Problems: (1) Fever Status: Acute (2) Gangrene of toe Status: Acute (3) Leukocytosis Status: Acute (4) Severe sepsis Status: Acute Severe sepsis cellulitis w/ gangrenous toes MRSA bacteremia (4 of 4 bottles) with sepsis, POA source //foot infection post Right below-knee amputation -CRYSTAL done no vegetations 05/21; BC from 05/20 & 05/21 neg A. 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 A neoplastic etiology cannot be excluded and CT Plan Discharged home with home health please see dictation Eventually he will need hospice Comment Review of Relevant I have reviewed the following items navi (where applicable) has been applied. Labs Laboratory Tests Test 06/06/18 16:28 06/06/18 21:10 06/07/18 06:00 06/07/18 07:26 Glucose (Fingerstick) 177 mg/dL (70-99) 161 mg/dL (70-99) 106 mg/dL (70-99) Prothrombin Time 36.1 SEC (11.7-14.0) Prothromb Time International Ratio 3.6 (0.8-1.1) Test 06/07/18 11:22 06/07/18 16:58 06/07/18 20:30 06/08/18 05:15 Glucose (Fingerstick) 107 mg/dL (70-99) 107 mg/dL (70-99) 115 mg/dL (70-99) Prothrombin Time 31.8 SEC (11.7-14.0) Prothromb Time International Ratio 3.1 (0.8-1.1) Test 06/08/18 07:48 06/08/18 11:39 Glucose (Fingerstick) 93 mg/dL (70-99) 114 mg/dL (70-99) Laboratory Tests Test 06/07/18 16:58 06/07/18 20:30 06/08/18 05:15 06/08/18 07:48 Glucose (Fingerstick) 107 mg/dL (70-99) 115 mg/dL (70-99) 93 mg/dL (70-99) Prothrombin Time 31.8 SEC (11.7-14.0) Prothromb Time International Ratio 3.1 (0.8-1.1) Test 06/08/18 11:39 Glucose (Fingerstick) 114 mg/dL (70-99) Microbiology 05/27/18 Blood Culture - Final, Complete NO GROWTH AFTER 5 DAYS 05/19/18 Urine Culture - Final, Complete 05/19/18 Urine Culture Result 1 (FELICITA) - Final, Complete 05/19/18 Anaerobic/Aerobic Culture - Final, Complete 05/19/18 Anaerobic Culture Result 1 (FELICITA) - Final, Complete 05/19/18 Aerobic Culture - Final, Complete 05/19/18 Aerobic Culture Result 1 (FELICITA) - Final, Complete 05/19/18 Aerobic Culture Result 2 (FELICITA) - Final, Complete 05/19/18 Antimicrobic Susceptibility - Final, Complete 05/19/18 Gram Stain - Final, Complete 05/19/18 Gram Stain Result 1 (FELICITA) - Final, Complete 05/19/18 Gram Stain Result 2 (FELICITA) - Final, Complete Medications Current Medications Sodium Chloride 1,000 ml @ 2,190 mls/hr Q28M IV Last administered on 05/18/18at 14:36; Start 05/18/18 at 12:52; Stop 05/18/18 at 13:52; Status DC Piperacillin Sod/ Tazobactam Sod 4.5 gm/Sodium Chloride 100 ml @ 200 mls/hr 1X ONCE IV Last administered on 05/18/18at 14:34; Start 05/18/18 at 13:00; Stop 05/18/18 at 13:29; Status DC Vancomycin HCl (Vanco Per Pharmacy) 1 each 1X ONCE MC Last administered on 05/18/18at 13:00; Start 05/18/18 at 13:00; Stop 05/18/18 at 13:11; Status DC Vancomycin HCl 2 gm/Sodium Chloride 500 ml @ 250 mls/hr 1X ONCE IV Last administered on 05/18/18at 15:28; Start 05/18/18 at 13:15; Stop 05/18/18 at 15:14; Status DC Ondansetron HCl (Zofran) 4 mg PRN Q8HRS PRN IV NAUSEA/VOMITING; Start 05/18/18 at 14:45; Stop 05/18/18 at 15:28; Status DC Fentanyl Citrate (Fentanyl 2ml Vial) 50 mcg PRN Q1HR PRN IV PAIN; Start 05/18/18 at 14:45; Stop 05/19/18 at 11:50; Status DC Sodium Chloride 1,000 ml @ 80 mls/hr [id number] IV ; Start 05/18/18 at 14:43; Stop 05/18/18 at 18:42; Status DC Acetaminophen (Tylenol) 650 mg 1X ONCE PO Last administered on 05/18/18at 15:29; Start 05/18/18 at 15:30; Stop 05/18/18 at 15:31; Status DC Ondansetron HCl (Zofran) 4 mg PRN Q6HRS PRN IV NAUSEA/VOMITING Last administered on 05/24/18at 06:14; Start 05/18/18 at 15:30 Diltiazem HCl (Cardizem Iv Push) 10 mg 1X ONCE IVP ; Start 05/18/18 at 15:30; Stop 05/18/18 at 15:31; Status DC Acetaminophen (Tylenol) 500 mg PRN Q6HRS PRN PO MILD PAIN / TEMP; Start 05/18/18 at 15:30; Stop 05/18/18 at 16:14; Status DC Acetaminophen/ Codeine Phosphate (Tylenol #3) 1 tab PRN Q6HRS PRN PO MODERATE PAIN Last administered on 06/07/18at 10:22; Start 05/18/18 at 15:30 Morphine Sulfate (Morphine Sulfate) 2 mg PRN Q2HR PRN IV PAIN Last administered on 06/03/18 13:22; Start 05/18/18 at 15:30 Oxycodone/ Acetaminophen (Percocet 5/325) 1 tab PRN Q4HRS PRN PO SEVERE PAIN Last administered on 06/02/18 19:11; Start 05/18/18 at 15:30 Albuterol Sulfate (Ventolin Hfa) 2 puff PRN Q6HRS PRN IH SHORTNESS OF BREATH; Start 05/18/18 at 15:30; Status UNV Digoxin (Lanoxin) 125 mcg DAILY PO ; Start 05/19/18 at 09:00; Stop 05/19/18 at 09:00; Status DC Furosemide (Lasix) 40 mg DAILY PO Last administered on 06/08/18 09:40; Start 05/19/18 at 09:00 Gabapentin (Neurontin) 300 mg DAILY PO Last administered on 06/08/18 09:41; Start 05/19/18 at 09:00 Lisinopril (Prinivil) 20 mg DAILY PO Last administered on 05/19/18 10:14; Start 05/19/18 at 09:00; Stop 05/24/18 at 15:20; Status DC Metoprolol Tartrate (Lopressor) 50 mg BID PO Last administered on 06/08/18 09:42; Start 05/18/18 at 21:00 Oxycodone/ Acetaminophen (Percocet 10/325) 1 tab PRN Q6HRS PRN PO SEVERE PAIN (2ND Choice) Last administered on 06/07/18 15:38; Start 05/18/18 at 15:30 Oxycodone/ Acetaminophen (Percocet 5/325) 1 tab PRN Q4HRS PRN PO PAIN; Start 05/18/18 at 15:30; Status UNV Acetaminophen (Tylenol) 500 mg PRN Q6HRS PRN PO MILD PAIN / TEMP Last administered on 05/27/18 23:35; Start 05/18/18 at 16:15 Atorvastatin Calcium (Lipitor) 80 mg QHS PO Last administered on 06/07/18 22:20; Start 05/18/18 at 21:00 Hydralazine HCl (Apresoline) 10 mg TID PO Last administered on 06/08/18 09:42; Start 05/18/18 at 16:00 Insulin Human Lispro (HumaLOG) 10 units DAILYWBKFT SQ Last administered on 05/23/18 08:58; Start 05/18/18 at 17:00; Stop 05/23/18 at 14:25; Status DC Levetiracetam (Keppra) 1,250 mg BID PO Last administered on 06/08/18 09:40; Start 05/18/18 at 21:00 Metformin HCl (Glucophage) 1,000 mg BIDWMEALS PO Last administered on 06/08/18 09:40; Start 05/18/18 at 17:00 Multivitamins (Thera M Plus) 1 tab DAILY PO Last administered on 06/08/18 09:40; Start 05/19/18 at 09:00 Potassium Chloride (Klor-Con) 20 meq DAILYWBKFT PO Last administered on 06/08/18 09:41; Start 05/19/18 at 08:00 Risperidone (RisperDAL) 1 mg QHS PO Last administered on 06/07/18 22:22; Start 05/18/18 at 21:00 Non-Formulary Medication (Rosuvastatin Calcium (Crestor)) 40 mg DAILY PO ; Start 05/19/18 at 09:00; Status UNV Zonisamide (Zonegran) 400 mg DAILY PO Last administered on 06/08/18 09:49; Start 05/19/18 at 09:00 Albuterol/ Ipratropium (Duoneb) 3 ml Q4HRS W/A NEB Last administered on 06/08/18 07:51; Start 05/18/18 at 18:00 Insulin Human Lispro (HumaLOG) 0-9 UNITS TIDWMEALS SQ Last administered on 05/26/18 18:04; Start 05/18/18 at 17:00 Dextrose (Dextrose 50%-Water Syringe) 12.5 gm PRN Q15MIN PRN IV SEE COMMENTS Last administered on 05/25/18 06:04; Start 05/18/18 at 15:30 Albuterol Sulfate (Ventolin Neb Soln) 2.5 mg PRN Q6HRS PRN NEB SHORTNESS OF BREATH Last administered on 06/07/18at 17:05; Start 05/18/18 at 15:45 Piperacillin Sod/ Tazobactam Sod 3.375 gm/Sodium Chloride 50 ml @ 100 mls/hr Q6HRS IV Last administered on 05/24/18at 05:33; Start 05/18/18 at 18:00; Stop 05/24/18 at 08:09; Status DC Potassium Chloride (Klor-Con) 40 meq 1X ONCE PO Last administered on 05/19/18at 10:14; Start 05/19/18 at 08:30; Stop 05/19/18 at 08:31; Status DC Heparin Sodium (Porcine) (Heparin Sodium) 5,000 unit Q8HRS SQ ; Start 05/19/18 at 14:00; Stop 05/19/18 at 14:00; Status DC Furosemide (Lasix) 40 mg 1X ONCE IVP Last administered on 05/19/18at 10:12; Start 05/19/18 at 08:45; Stop 05/19/18 at 08:46; Status DC Phytonadione (Vitamin K Ampule) 10 mg 1X ONCE SQ Last administered on 05/19/18at 10:16; Start 05/19/18 at 10:00; Stop 05/19/18 at 10:01; Status DC Vancomycin HCl (Vanco Per Pharmacy) 1 each PRN DAILY PRN MC SEE COMMENTS Last administered on 05/19/18at 10:32; Start 05/19/18 at 10:00; Stop 05/20/18 at 10:42; Status DC Phytonadione (Vitamin K Ampule) 10 mg 1X ONCE SQ ; Start 05/19/18 at 10:15; Stop 05/19/18 at 10:16; Status UNV Vancomycin HCl 1.75 gm/Sodium Chloride 500 ml @ 250 mls/hr Q24H IV Last administered on 05/19/18at 16:59; Start 05/19/18 at 16:00; Stop 05/20/18 at 10:42; Status DC Vancomycin HCl (Vancomycin Trough Level) 1 each 1X ONCE MC ; Start 05/20/18 at 16:30; Stop 05/20/18 at 16:30; Status DC Acetaminophen (Tylenol Supp) 650 mg PRN Q6HRS PRN NC MILD PAIN / TEMP Last administered on 05/23/18at 23:33; Start 05/20/18 at 01:15 Sodium Chloride 500 ml @ 333 mls/hr 1X ONCE IV Last administered on 05/20/18at 01:14; Start 05/20/18 at 01:15; Stop 05/20/18 at 02:45; Status DC Phytonadione 5 mg/ Dextrose 50.5 ml @ 101 mls/hr 1X ONCE IV Last administered on 05/20/18at 10:08; Start 05/20/18 at 10:30; Stop 05/20/18 at 10:59; Status DC Daptomycin 590 mg/ Sodium Chloride 50 ml @ 100 mls/hr Q24H IV Last adm inistered on 06/07/18at 13:08; Start 05/20/18 at 12:00 Ondansetron HCl (Zofran) 4 mg PRN Q6HRS PRN IV NAUSEA/VOMITING; Start 05/21/18 at 09:45; Stop 05/22/18 at 09:44; Status DC Fentanyl Citrate (Fentanyl 2ml Vial) 25 mcg PRN Q5MIN PRN IV MILD PAIN; Start 05/21/18 at 09:45; Stop 05/22/18 at 09:44; Status DC Fentanyl Citrate (Fentanyl 2ml Vial) 50 mcg PRN Q5MIN PRN IV MODERATE TO SEVERE PAIN; Start 05/21/18 at 09:45; Stop 05/22/18 at 09:44; Status DC Morphine Sulfate (Morphine Sulfate) 1 mg PRN Q10MIN PRN IV SEVERE PAIN; Start 05/21/18 at 09:45; Stop 05/22/18 at 09:44; Status DC Ringer's Solution 1,000 ml @ 30 mls/hr Q24H IV ; Start 05/21/18 at 09:39; Stop 05/22/18 at 00:37; Status DC Lidocaine HCl (Xylocaine-Mpf 1% 2ml Vial) 2 ml 1X PRN PRN ID IV START; Start 05/21/18 at 09:45; Stop 05/22/18 at 09:44; Status DC Hydromorphone HCl (Dilaudid) 0.5 mg PRN Q10MIN PRN IV SEV PAIN, Second choice; Start 05/21/18 at 09:45; Stop 05/22/18 at 09:44; Status DC Prochlorperazine Edisylate (Compazine) 5 mg PACU PRN PRN IV NAUSEA, MRX1; Start 05/21/18 at 09:45; Stop 05/22/18 at 09:44; Status DC Lidocaine HCl (Glydo (Lidocaine) Jelly) 1 vianney 1X ONCE MM ; Start 05/21/18 at 12:30; Stop 05/21/18 at 12:31; Status DC Propofol 20 ml @ As Directed STK-MED ONCE IV ; Start 05/21/18 at 12:27; Stop 05/21/18 at 12:28; Status DC Dexamethasone Sodium Phosphate (Decadron) 20 mg STK-MED ONCE .ROUTE ; Start 05/21/18 at 12:27; Stop 05/21/18 at 12:28; Status DC Famotidine (Pepcid Vial) 20 mg STK-MED ONCE .ROUTE ; Start 05/21/18 at 12:27; Stop 05/21/18 at 12:28; Status DC Lidocaine HCl (Lidocaine Pf 2% Vial) 5 ml STK-MED ONCE .ROUTE ; Start 05/21/18 at 12:27; Stop 05/21/18 at 12:28; Status DC Ondansetron HCl (Zofran) 4 mg STK-MED ONCE .ROUTE ; Start 05/21/18 at 12:27; Stop 05/21/18 at 12:28; Status DC Fentanyl Citrate (Fentanyl 2ml Vial) 100 mcg STK-MED ONCE .ROUTE ; Start 05/21/18 at 12:27; Stop 05/21/18 at 12:28; Status DC Bacitracin 73610 unit/Sodium Chloride 500 ml @ 500 mls/hr 1X ONCE IRR ; Start 05/21/18 at 12:40; Stop 05/21/18 at 13:39; Status DC Cefazolin Sodium 1 gm/Sodium Chloride 500 ml @ 500 mls/hr 1X ONCE IRR ; Start 05/21/18 at 12:40; Stop 05/21/18 at 13:39; Status DC Lidocaine HCl 20 ml STK-MED ONCE .ROUTE ; Start 05/21/18 at 11:42; Stop 05/21/18 at 12:42; Status DC Esmolol HCl (Brevibloc) 100 mg STK-MED ONCE IVP ; Start 05/21/18 at 13:01; Stop 05/21/18 at 13:02; Status DC Esmolol HCl (Brevibloc) 100 mg STK-MED ONCE IVP ; Start 05/21/18 at 14:22; Stop 05/21/18 at 14:23; Status DC Neomycin/ Polymyxin/ Bacitracin (Triple Antibiotic Ointment) 1 pkt STK-MED ONCE TP Last administered on 05/21/18at 14:41; Start 05/21/18 at 13:38; Stop 05/21/18 at 14:38; Status DC Sevoflurane (Ultane) 90 ml STK-MED ONCE IH ; Start 05/21/18 at 14:40; Stop 05/21/18 at 14:41; Status DC Naloxone HCl (Narcan) 0.4 mg PRN Q2MIN PRN IV SEE INSTRUCTIONS; Start 05/21/18 at 15:00 Sodium Chloride 1,000 ml @ 25 mls/hr Q24H IV ; Start 05/21/18 at 14:57; Stop 05/24/18 at 07:00; Status DC Morphine Sulfate 30 ml @ 0 mls/hr CONT PRN PRN IV PER PROTOCOL; Start 05/21/18 at 15:00 Labetalol HCl (Normodyne Iv Push) 20 mg PRN Q2HR PRN IVP HYPERTENSION, SEE COMMENTS Last administered on 05/24/18at 00:15; Start 05/21/18 at 15:30 Labetalol HCl (Normodyne Iv Push) 5 mg 1X PACU PRN IVP tachycardia and HTN Last administered on 05/21/18at 15:30; Start 05/21/18 at 15:30; Stop 05/22/18 at 09:09; Status DC Insulin Glargine (Lantus) 3 units 1X ONCE SQ Last administered on 05/21/18at 22:00; Start 05/21/18 at 22:00; Stop 05/22/18 at 01:31; Status DC Aspirin (Ecotrin) 81 mg DAILYWBKFT PO Last administered on 06/08/18at 09:40; Start 05/23/18 at 08:00 Digoxin (Lanoxin) 250 mcg 1X ONCE IV Last administered on 05/22/18at 12:28; Start 05/22/18 at 12:30; Stop 05/22/18 at 12:31; Status DC Warfarin Sodium (Coumadin) 6 mg DAILY16 PO ; Start 05/22/18 at 16:00; Stop 05/22/18 at 16:00; Status DC Warfarin Sodium (Coumadin) 2.5 mg 3X/WEEK PO ; Start 05/23/18 at 09:00; Status UNV Warfarin Sodium (Coumadin Per Physician) 1 each PRN DAILY PRN MC SEE COMMENTS; Start 05/22/18 at 14:45; Stop 05/22/18 at 14:57; Status DC Warfarin Sodium (Coumadin Per Pharmacy) 1 each PRN DAILY PRN MC SEE COMMENTS Last administered on 06/07/18at 12:13; Start 05/22/18 at 15:00 Warfarin Sodium (Coumadin) 4 mg 1X WARF ONCE PO Last administered on 05/22/18at 16:19; Start 05/22/18 at 16:00; Stop 05/22/18 at 16:01; Status DC Warfarin Sodium (Coumadin) 4 mg 1X WARF ONCE PO ; Start 05/23/18 at 16:00; Stop 05/23/18 at 16:01; Status DC Ringer's Solution 1,000 ml @ 75 mls/hr [id number] IV ; Start 05/23/18 at 13:45; Status Cancel Ringer's Solution 1,000 ml @ 75 mls/hr [id number] IV Last administered on 06/02/18at 13:17; Start 05/23/18 at 14:00; Stop 06/02/18 at 18:01; Status DC Insulin Human Lispro (HumaLOG) 7 units DAILYWBKFT SQ ; Start 05/24/18 at 08:00; Stop 05/25/18 at 12:44; Status DC Dextrose (Dextrose 50%-Water Syringe) 25 gm 1X ONCE IV Last administered on 05/23/18at 13:15; Start 05/23/18 at 17:45; Stop 05/23/18 at 17:46; Status DC Meropenem 500 mg/ Sodium Chloride 50 ml @ 100 mls/hr Q6HRS IV Last admi nistered on 06/01/18at 05:32; Start 05/24/18 at 12:00; Stop 06/01/18 at 09:46; Status DC Warfarin Sodium (Coumadin) 6 mg 1X WARF ONCE PO Last administered on 05/24/18 15:33; Start 05/24/18 at 16:00; Stop 05/24/18 at 16:01; Status DC Insulin Human Lispro (HumaLOG) 3 units DAILYWBKFT SQ Last administered on 06/05/18 09:39; Start 05/26/18 at 08:00 Warfarin Sodium (Coumadin) 6 mg 1X WARF ONCE PO Last administered on 05/25/18 16:04; Start 05/25/18 at 16:00; Stop 05/25/18 at 16:01; Status DC Polyethylene Glycol (miraLAX PACKET) 17 gm DAILY PO Last administered on 06/07/18 09:35; Start 05/26/18 at 14:00 Warfarin Sodium (Coumadin) 7.5 mg 1X WARF ONCE PO Last administered on 05/27/18 17:56; Start 05/27/18 at 16:00; Stop 05/27/18 at 16:01; Status DC Micafungin Sodium 100 mg/Dextrose 100 ml @ 100 mls/hr Q24H IV Last administered on 06/03/18 12:02; Start 05/27/18 at 12:00; Stop 06/04/18 at 09:49; Status DC Warfarin Sodium (Coumadin) 6 mg 1X WARF ONCE PO Last administered on 05/28/18 17:32; Start 05/28/18 at 16:00; Stop 05/28/18 at 16:01; Status DC Ascorbic Acid (Vitamin C) 500 mg DAILY PO Last administered on 06/08/18 09:42; Start 05/28/18 at 16:00 Warfarin Sodium (Coumadin) 6 mg 1X WARF ONCE PO Last administered on 05/29/18at 17:04; Start 05/29/18 at 16:00; Stop 05/29/18 at 16:01; Status DC Warfarin Sodium (Coumadin) 6 mg 1X WARF ONCE PO Last administered on 05/30/18 15:29; Start 05/30/18 at 16:00; Stop 05/30/18 at 16:01; Status DC Lidocaine/Sodium Bicarbonate (Buffered Lidocaine 1%) 3 ml STK-MED ONCE .ROUTE ; Start 05/30/18 at 13:48; Stop 05/30/18 at 13:49; Status DC Warfarin Sodium (Coumadin) 6 mg 1X WARF ONCE PO Last administered on 05/31/18 17:23; Start 05/31/18 at 16:00; Stop 05/31/18 at 16:01; Status DC Warfarin Sodium (Coumadin) 3 mg 1X WARF ONCE PO Last administered on 06/01/18at 16:14; Start 06/01/18 at 16:00; Stop 06/01/18 at 16:01; Status DC Vitamin A/Vitamin D (Vitamin A & D Ointment) 1 vianney BID TP Last administered on 06/08/18 09:43; Start 06/01/18 at 21:00 Phenyleph/Shark Oil/Min Oil/Petrol (Preparation H) 1 vianney TID RC Last administered on 06/08/18 09:43; Start 06/02/18 at 14:00 Alteplase, Recombinant (Cathflo For Central Catheter Clearance) 1 mg 1X ONCE INT CAT Last administered on 06/02/18 13:16; Start 06/02/18 at 12:15; Stop 06/02/18 at 12:16; Status DC Warfarin Sodium (Coumadin - No Dose Today) 1 each 1X WARF ONCE MC Last administered on 06/02/18at 16:00; Start 06/02/18 at 16:00; Stop 06/02/18 at 16:01; Status DC Sodium Chloride 1,000 ml @ 1,000 mls/hr 1X ONCE IV Last administered on 06/03/18at 10:44; Start 06/03/18 at 10:30; Stop 06/03/18 at 11:29; Status DC Warfarin Sodium (Coumadin) 1 mg 1X WARF ONCE PO Last administered on 06/03/18at 17:36; Start 06/03/18 at 16:00; Stop 06/03/18 at 16:01; Status DC Warfarin Sodium (Coumadin - No Dose Today) 1 each 1X WARF ONCE MC Last administered on 06/04/18at 15:06; Start 06/04/18 at 16:00; Stop 06/04/18 at 16:01; Status DC Warfarin Sodium (Coumadin - No Dose Today) 1 each 1X WARF ONCE MC ; Start 06/05/18 at 16:00; Stop 06/05/18 at 16:01; Status DC Warfarin Sodium (Coumadin) 2 mg 1X WARF ONCE PO ; Start 06/06/18 at 16:00; Stop 06/06/18 at 16:00; Status DC Warfarin Sodium (Coumadin) 1 mg 1X WARF ONCE PO Last administered on 06/06/18at 18:03; Start 06/06/18 at 16:00; Stop 06/06/18 at 16:01; Status DC Warfarin Sodium (Coumadin - No Dose Today) 1 each 1X WARF ONCE MC Last administered on 06/07/18at 16:00; Start 06/07/18 at 16:00; Stop 06/07/18 at 16:01; Status DC Active Scripts Active Digoxin 125 Mcg Tablet 125 Mcg PO DAILY Furosemide 40 Mg Tablet 40 Mg PO DAILY Metoprolol Tartrate 50 Mg Tablet 50 Mg PO BID [Warfarin Sodium] 1 EACH Each 1 Each MC PRN DAILY PRN Lisinopril 20 Mg Tablet 20 Mg PO DAILY Duoneb 0.5-3(2.5) Mg/3 Ml (Albuterol/Ipratropium) 3 Ml Ampul.neb 3 Ml NEB Q4HRS W/A 30 Days Hydralazine Hcl 10 Mg Tablet 10 Mg PO TID Reported Zonisamide 100 Mg Capsule 400 Mg PO DAILY Percocet 5-325 Mg Tablet (Oxycodone/Acetaminophen) 1 Each Tablet 1 Tab PO PRN Q4HRS PRN Multivitamins (Multivitamin) 1 Each Tablet 1 Tab PO DAILY Levetiracetam 250 Mg Tablet 1,250 Mg PO BID Novolin N (Nph, Human Insulin Isophane) 100 Unit/1 Ml Vial Unknown Dose SQ Atorvastatin Calcium 80 Mg Tablet 1 Tab PO DAILY Acetaminophen 500 Mg Tablet 1 Tab PO PRN Q6HRS PRN Albuterol Sulfate Hfa Inhaler (Albuterol Sulfate) 8.5 Gm Hfa.aer.ad 2 Puff IH PRN Q6HRS PRN Aspirin Ec (Aspirin) 325 Mg Tablet.dr 81 Mg PO DAILY Crestor (Rosuvastatin Calcium) 40 Mg Tablet 40 Mg PO DAILY Warfarin Sodium 5 Mg Tablet 6 Mg PO DAILY Warfarin Sodium 2.5 Mg Tablet 2.5 Mg PO 3X/WEEK monday,monday, Gabapentin (Gabapentin) 300 Mg Capsule 300 Mg PO DAILY Risperidone 1 Mg Tablet 1 Mg PO HS Novolog (Insulin Aspart) 100 Unit/1 Ml Vial 10 Unit SQ DAILYAC Oxycodone-Acetaminophen 10-325 (Oxycodone Hcl/Acetaminophen) 1 Each Tablet 1 Each PO PRN Q6HRS Potassium 99 Mg Tablet 20 Meq PO DAILY Prednisone (Prednisone) 10 Mg Tablet 10 Mg PO DAILY Metformin Hcl 500 Mg Tablet 1,000 Mg PO BIDBFRMEAL Vitals/I & O Vital Sign - Last 24 Hours 06/07/18 06/07/18 06/07/18 06/07/18 12:39 15:00 15:10 15:38 Temp 100.0 100.0 Pulse 74 Resp 18 B/P (MAP) 130/40 (70) Pulse Ox 93 95 O2 Delivery Room Air Nasal Cannula Room Air Room Air O2 Flow Rate 2.0 2.0 06/07/18 06/07/18 06/07/18 06/07/18 15:38 19:00 20:00 23:00 Temp 98.8 98.1 98.8 98.1 Pulse 74 43 62 Resp 18 18 B/P (MAP) 130/40 118/37 (64) 124/59 (80) Pulse Ox 99 98 O2 Delivery Nasal Cannula Nasal Cannula Nasal Cannula O2 Flow Rate 2.0 2.0 2.0 06/08/18 06/08/18 06/08/18 06/08/18 03:00 07:00 07:51 08:00 Temp 97.9 99.0 97.9 99.0 Pulse 80 89 Resp 18 18 B/P (MAP) 148/58 (88) 119/60 (79) Pulse Ox 95 91 99 O2 Delivery Nasal Cannula Nasal Cannula Nasal Cannula Nasal Cannula O2 Flow Rate 2.0 3.0 3.0 3.0 06/08/18 06/08/18 06/08/18 09:42 09:42 11:00 Temp 100.2 100.2 Pulse 89 89 74 Resp 18 B/P (MAP) 119/60 119/60 120/34 (62) Pulse Ox 97 O2 Delivery Nasal Cannula O2 Flow Rate 3.0 Intake and Output 06/07/18 06/07/18 06/08/18 15:00 23:00 07:00 Intake Total 0 ml 0 ml Output Total 300 ml Balance 0 ml -300 ml MIESHA SOLANOL K III DO June 08, 2018 11:52
[2018-06-08] MEDS: DAPTOmycin (GENERIC) IVPB 590 MG in IV NORMAL SALINE 50ML 50 ML IV SCH (11:56)
--- NOTE | 2018-06-08 12:09 | NUR ---
SW phoned and faxed orders for 02, Phoebe lift and hospital bed to [facility]. Awaiting to hear back on approval. Discussed with pt's via phone.
--- NOTE | 2018-06-08 12:19 | PDOC ---
Infectious Disease Note Subjective Subjective pt is feeling good, wants to go home ( not SNF ) Vital Sign Vital Signs Vital Signs Date Time Temp Pulse Resp B/P (MAP) Pulse Ox O2 Delivery O2 Flow Rate FiO2 06/08/18 11:00 100.2 74 18 120/34 (62) 97 Nasal Cannula 3.0 100.2 Physical Exam PHYSICAL EXAM GEN: Lying down, talkative HEENT: Normal conjunctivae. Oral cavity, pharynx pink, dry NECK: Supple. LUNGS: Clear anteriorly HEART: S1 and S2, soft murmur. ABDOMEN: Obese, soft and non tender with bowel sounds present. GENITOURINARY: Indwelling Crawley in place. EXTREMITIES: Right BKA incision well approx w/ matti, clean Left ankle wound, no bone exposure or area redness SKIN: Warm without rash. Several tattoos. NEUROLOGIC: Arouses to name follows commands, depressed PICC RUE - clean Labs Lab Laboratory Tests Test 06/07/18 16:58 06/07/18 20:30 06/08/18 05:15 06/08/18 07:48 Glucose (Fingerstick) 107 mg/dL (70-99) 115 mg/dL (70-99) 93 mg/dL (70-99) Prothrombin Time 31.8 SEC (11.7-14.0) Prothromb Time International Ratio 3.1 (0.8-1.1) Test 06/08/18 11:39 Glucose (Fingerstick) 114 mg/dL (70-99) Objective Assessment Fevers better overall. repeat UA and BC from 05/24 neg so far Leukocytosis - better Constipation ? cholecystitis - non tender better MRSA bacteremia (4 of 4 bottles) with sepsis, POA source possible foot infection- Dapto sensitive 05/18 -CRYSTAL done no vegetations 05/21; BC from 05/20 & 05/21 neg Infected necrotic ulcer left ankle s/p I and D 05/21. MRSA and Enterobacter ( R Augmentin/cefuroxime) - no exposed bone. 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 Severe PAD s/p BLE stents and previous toe amputations Bioprosthetic aortic valve Renal insufficiency/JIMMY - better Encephalopathy - improved but still some confusion Coagulopathy, on chronic warfarin A- fib RVR Diabetes Type II h/o PSA ( R quinolones & I imipenem) h/o group B strep bacteremia, 2016 Plan Plan of Care Cont Dapto (susceptible 05/18)- 6 weeks = July 02 (last CPK 05/31 was 218) Monitor labs CK/CMP/CBC with diff Q Monday while on Daptomycin Local wound care and offloading left ankle wound is not infected, but it is on lat malleolus, and the way his foot rotates and sits on it , likely will get worse D/w nursing f/u with us in 2 wks wkly cbc, bun/cr, sed rate, cpk , fax to [phone] DAYANA CATES MD June 08, 2018 12:19
--- NOTE | 2018-06-08 12:51 | NUR ---
Pharmacy Warfarin Dosing Note S:Pharmacy consulted to assist with anticoagulation therapy started with target INR: 2 -3 O:VICKI BRAUN is a 78 year old M with Atrial Fibrillation Bioprosthetic Valve LABS: Last INR: 3.1 Last HGB: 7.7 Last HCT: 24.1 Last PLT: 325 Last dose of Hold given on 06/06/18 at 1529 Previous Regimen: 4mg/day except 2 mg Sat/Sun Vitamin K given: Y 05/19: 10 MG SUB-Q, 05/20: 5 MG IV Drug Interaction Changes: New Interacting Drug Ongoing Drug Interactions: Zosyn A:INR of 3.1 is above desired range. Target range for this patient is: 2 -3 P: Warfarin dose: 1 mg Today at 1600. Bridge Therapy: None Next INR due tomorrow. Pharmacy anticoagulation service will continue to follow. George Foely [facility], 06/08/18 [id number]
[2018-06-08] MEDS: oxyCODONE/APAP 10/325 1 TAB TABLET PO PRN (14:04)
[2018-06-08 15:00] VITALS: BP 100/27
--- NOTE | 2018-06-08 15:16 | SNU/HH DC ---
DISCHARGE WITH HOME HEALTH DISCHARGE INFORMATION: Final Diagnosis: Problems Medical Problems: (1) Fever Status: Acute (2) Gangrene of toe Status: Acute (3) Leukocytosis Status: Acute (4) Severe sepsis Status: Acute Condition on Discharge: Stable CODE STATUS: Code Status: Full HOME HEALTH: Face to Face: I certify this patient is under my care and that I, or a nurse practitioner or physician's boiler assistant operator working with me, had a face to face encounter that meets the physician face to face encounter requirements with this patient on []. 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 POST DISCHARGE ORDERS: Activity Instructions for Disc: Bedrest today Bathing Instructions: Shower-keep dressing dry DIET AFTER DISCHARGE: Cardiac Wound/Incision Care: Keep wound elevated, Change dressing CERTIFICATION STATEMENT: Certification Statement: Certification Statement: Based on the above finding, I certify that this patient is confined to the home and needs intermittent [place] [facility] care, physical therapy and/or speech therapy, or continues to need occupational therapy.~ This patient is under my care, and I have initiated the establishment of the plan of care.~ This patient will be followed by myself or a community physician who will periodically review the plan of care. Home Meds Active Scripts Digoxin (DIGOXIN) 125 Mcg Tablet, 125 MCG PO DAILY, #30 TAB-CAP Prov:MAUREEN BRIDGES MD 05/15/16 Furosemide (FUROSEMIDE) 40 Mg Tablet, 40 MG PO DAILY, #30 TAB-CAP Prov:MAUREEN BRIDGES MD 05/15/16 Metoprolol Tartrate (METOPROLOL TARTRATE) 50 Mg Tablet, 50 MG PO BID, #60 TAB Prov:ISAAC SPRINGER MD 02/24/16 [Warfarin Sodium] 1 EACH EACH No Conflict Check, 1 EACH MC PRN DAILY PRN for SEE COMMENTS Prov:ISAAC SPRINGER MD 02/24/16 Lisinopril (LISINOPRIL) 20 Mg Tablet, 20 MG PO DAILY, #30 TAB Prov:ISAAC SPRINGER MD 02/24/16 Ipratropium/Albuterol Sulfate (DUONEB 0.5-3(2.5) MG/3 ML) 3 Ml Ampul.neb, 3 ML NEB Q4HRS W/A for 30 Days, ML Prov:ISAAC SPRINGER MD 02/24/16 Hydralazine Hcl (HYDRALAZINE HCL) 10 Mg Tablet, 10 MG PO TID, #90 TAB Prov:ISAAC SPRINGER MD 02/24/16 Reported Medications Zonisamide (ZONISAMIDE) 100 Mg Capsule, 400 MG PO DAILY 05/11/16 Oxycodone/Apap 5-325 (PERCOCET 5-325 MG TABLET ) 1 Each Tablet, 1 TAB PO PRN Q4HRS PRN for PAIN, #120 TAB 05/11/16 Multivitamin (MULTIVITAMINS) 1 Each Tablet, 1 TAB PO DAILY, #90 TAB 3 Refills 05/11/16 Levetiracetam (LEVETIRACETAM) 250 Mg Tablet, 1250 MG PO BID, TAB 05/11/16 Nph, Human Insulin Isophane (NOVOLIN N) 100 Unit/1 Ml Vial, SQ, VIAL 05/11/16 Atorvastatin Calcium (ATORVASTATIN CALCIUM) 80 Mg Tablet, 1 TAB PO DAILY, #30 TAB 5 Refills 05/11/16 Acetaminophen (ACETAMINOPHEN) 500 Mg Tablet, 1 TAB PO PRN Q6HRS PRN for MILD PAIN / TEMP, #60 TAB 1 Refill 05/11/16 Albuterol Sulfate (ALBUTEROL SULFATE HFA INHALER) 8.5 Gm Hfa.aer.ad, 2 PUFF IH PRN Q6HRS PRN for SHORTNESS OF BREATH 02/20/13 Aspirin (ASPIRIN EC) 325 Mg Tablet.dr, 81 MG PO DAILY 02/20/13 Rosuvastatin Calcium (CRESTOR) 40 Mg Tablet, 40 MG PO DAILY 02/19/13 Warfarin Sodium (WARFARIN SODIUM) 5 Mg Tablet, 6 MG PO DAILY 02/19/13 Warfarin Sodium (WARFARIN SODIUM) 2.5 Mg Tablet, 2.5 MG PO 3X/WEEK monday,monday,02/19/13 Gabapentin (GABAPENTIN ) 300 Mg Capsule, 300 MG PO DAILY 02/19/13 Risperidone (RISPERIDONE) 1 Mg Tablet, 1 MG PO HS 02/19/13 Insulin Aspart (NOVOLOG) 100 Unit/1 Ml Vial, 10 UNIT SQ DAILYAC, VIAL 02/19/13 Oxycodone Hcl/Acetaminophen (OXYCODONE-ACETAMINOPHEN 10-325) 1 Each Tablet, 1 EACH PO PRN Q6HRS 02/19/13 Potassium (POTASSIUM) 99 Mg Tablet, 20 MEQ PO DAILY 02/19/13 Prednisone (PREDNISONE ) 10 Mg Tablet, 10 MG PO DAILY 02/19/13 Metformin Hcl (METFORMIN HCL) 500 Mg Tablet, 1000 MG PO BIDBFRMEAL 02/19/13 OBI SOLANO III DO June 08, 2018 15:16
--- NOTE | 2018-06-08 15:28 | NUR ---
SW following pt. Orders faxed to [facility] and RN will visit pt tomorrow/provide bedside teach for IV abx. Orders for DME (02, bed and shyla lift) approved by [facility] and will be delivered tonight at 1800. [facility] will also deliver IV abx today. SW also left an 02 tank in pt's room to take home. AMAURI extensively discussed this over phone with pt's and provided her with contact phone numbers for providers. Pt's choice and rights forms verbally consented by and copies on chart. Pt will transport via [facility] at 1930. RN notified.
[2018-06-08] MEDS ORDERED: WARFARIN 1 MG TABLET. PO ONE (16:00)
--- NOTE | 2018-06-08 20:16 | NUR ---
Patient discharge Pt was escort out with [facility] at approximately 1950. Pt was sent home with all his belongings, PICC line still intact, dolan catheter, and oxygen tank. Pt's Christine was notified regarding pt's discharge orders and planning. verbalized understanding.
[2018-06-28] MEDS ORDERED: BUDE0.5A NEB (09:33)
[2018-06-28] MEDS ORDERED: FAMO20TA5 PO (09:33)
== END 2018-06-08 20:20 | disposition home health service (06) | DRG 853 ==
LOC: ER 12:52 → 1 WEST ICU 14:42 → 2 SOUTH 05-23 18:24 → 6 SOUTH 05-25 16:15 → 5 NORTH 06-01 17:37
PROVIDERS: ADMIT Internal Medicine; ATTEND Internal Medicine
PROC: 0Y6H0Z1 Detachment at Right Lower Leg, High, Open Approach (ICD-10-PCS; principal; 2018-05-21 12:30)
PROC: 0JBR0ZZ Excision of Left Foot Subcutaneous Tissue and Fascia, Open Approach (ICD-10-PCS; 2018-05-21 12:30)
PROC: B24BZZ4 Ultrasonography of Heart with Aorta, Transesophageal (ICD-10-PCS; 2018-05-21 12:30)
PROC: 02HV33Z Insertion of Infusion Device into Superior Vena Cava, Percutaneous Approach (ICD-10-PCS; 2018-05-30)
PROC: B548ZZA Ultrasonography of Superior Vena Cava, Guidance (ICD-10-PCS; 2018-05-30)
DX: A41.02 Sepsis due to Methicillin resistant Staphylococcus aureus (principal); I50.43 Acute on chronic combined systolic (congestive) and diastolic (congestive) heart failure; N17.0 Acute kidney failure with tubular necrosis; G93.41 Metabolic encephalopathy; L97.329 Non-pressure chronic ulcer of left ankle with unspecified severity; E11.52 Type 2 diabetes mellitus with diabetic peripheral angiopathy with gangrene; L03.115 Cellulitis of right lower limb; D68.9 Coagulation defect, unspecified; J98.11 Atelectasis; L97.319 Non-pressure chronic ulcer of right ankle with unspecified severity; R65.20 Severe sepsis without septic shock; L97.529 Non-pressure chronic ulcer of other part of left foot with unspecified severity; E78.00 Pure hypercholesterolemia, unspecified; E78.5 Hyperlipidemia, unspecified; G40.909 Epilepsy, unspecified, not intractable, without status epilepticus; I11.0 Hypertensive heart disease with heart failure; Z66 Do not resuscitate; Z51.5 Encounter for palliative care; M19.90 Unspecified osteoarthritis, unspecified site; F41.9 Anxiety disorder, unspecified; F32.9 Major depressive disorder, single episode, unspecified; I48.0 Paroxysmal atrial fibrillation; I25.10 Atherosclerotic heart disease of native coronary artery without angina pectoris; J44.9 Chronic obstructive pulmonary disease, unspecified; F03.90 Unspecified dementia, unspecified severity, without behavioral disturbance, psychotic disturbance, mood disturbance, and anxiety; K21.9 Gastro-esophageal reflux disease without esophagitis; I25.5 Ischemic cardiomyopathy; I49.5 Sick sinus syndrome; R33.9 Retention of urine, unspecified; K81.9 Cholecystitis, unspecified; E87.6 Hypokalemia; E11.40 Type 2 diabetes mellitus with diabetic neuropathy, unspecified; E11.621 Type 2 diabetes mellitus with foot ulcer; E11.649 Type 2 diabetes mellitus with hypoglycemia without coma; I48.2 Chronic atrial fibrillation; K59.00 Constipation, unspecified; K82.8 Other specified diseases of gallbladder; Z96.642 Presence of left artificial hip joint; E66.9 Obesity, unspecified; Z86.73 Personal history of transient ischemic attack (TIA), and cerebral infarction without residual deficits; Z90.49 Acquired absence of other specified parts of digestive tract; Z95.1 Presence of aortocoronary bypass graft; Z87.891 Personal history of nicotine dependence; Z89.421 Acquired absence of other right toe(s); Z79.01 Long term (current) use of anticoagulants; Z79.4 Long term (current) use of insulin; I25.2 Old myocardial infarction; Z82.49 Family history of ischemic heart disease and other diseases of the circulatory system; Z95.0 Presence of cardiac pacemaker; Z74.01 Bed confinement status; Z80.8 Family history of malignant neoplasm of other organs or systems; Z86.14 Personal history of Methicillin resistant Staphylococcus aureus infection; Z95.3 Presence of xenogenic heart valve; Z68.32 Body mass index [BMI] 32.0-32.9, adult; E11.622 Type 2 diabetes mellitus with other skin ulcer
CPT/HCPCS: 36415; 36569; 36600; 51702; 51798; 70450; 71045; 71250; 73630; 74176; 76705; 76937; 77001; 80048; 80053; 80069; 80076; 81001; 82550; 82565; 82805; 82962; 83605; 83690; 83735; 84145; 84443; 85007; 85025; 85027; 85610; 87040; 87071; 87075; 87077; 87086; 87186; 87205; 87641; 88307; 88311; 93005; 93306; 93312; 93926; 94640; 94760; 96365; 96366; 96368; C1751; C1892; J0878; J1100; J1160; J1815; J1940; J2001; J2185; J2248; J2270; J2405; J2543; J2704; J3010; J3370; J3430; J3490; J7030; J7040; J7042; J7120; J7613; J7620; 92526; 92610; 99285-25; A4461

== ENCOUNTER 2018-06-15 08:07 | Inpatient (IN) | payer MEDICARE, OTHER ==
[2018-06-15] VITALS (9 sets, daily range): BP systolic 99–139; BP diastolic 53–79
[~2018-06-15] VITALS: Ht 177.8 cm; Wt 92.5 kg
[2018-06-15] MEDS ORDERED: IPRATRPIUM/ALBUTEROL 0.5/2.5MG 3 ML NEBU. NEB ONE (08:15)
--- NOTE | 2018-06-15 08:34 | RAD ---
AP portable chest radiograph 06/15/2018 Clinical History: Shortness of breath. An AP erect portable digital radiograph of the chest was obtained. Comparison study is dated 05/27/2018. The patient is post cardiac valve replacement. The cardiac silhouette is mildly enlarged. Atherosclerotic calcification thoracic aorta is seen. The thoracic aorta is mildly tortuous. A right arm PICC has been placed. The tip of this catheter is difficult to visualize but appears to extend to overlie the right atrium of the heart. A right perihilar infiltrate is seen which is new since the previous examination. No pneumothorax or pleural effusion is noted. The osseous structures are unchanged. IMPRESSION: Right perihilar infiltrate. Electronically signed by: Carson Liao MD (06/15/2018 8:31 AM) [id number]
[2018-06-15] MEDS ORDERED: IV NORMAL SALINE 1000ML BAG 1,000 ML IV SCH (08:35)
[2018-06-15 08:40] LABS: BASO % 0 % (0-3); EOS # 0.2 x10^3/uL (0.0-0.7); EOS % 1 % (0-3); HEMATOCRIT 24.1 % (39.0-53.0); HEMOGLOBIN 7.5 g/dL (13.0-17.5); LYMPH # 0.6 x10^3/uL (1.0-4.8); LYMPH % 4 % (24-48); MEAN CORPUSCULAR HEMOGLOBIN 26 pg (25-35); MEAN CORPUSCULAR HGB CONC 31 g/dL (31-37); MEAN CORPUSCULAR VOLUME 83 fL (79-100); MONO # 1.8 x10^3/uL (0.0-1.1); MONO % 10 % (0-9); NEUT # 15.8 x10^3uL (1.8-7.7); NEUT % 86 % (31-73); PLATELET COUNT 404 x10^3/uL (140-400); RED CELL DISTRIBUTION WIDTH 16.8 % (11.5-14.5); WHITE BLOOD COUNT 18.5 x10^3/uL (4.0-11.0)
[2018-06-15] MEDS ORDERED: ONDANSETRON PF 4 MG/2 ML VIAL. IV PRN ×2 (08:45)
[2018-06-15] MEDS ORDERED: MORPHINE SULFATE 2 MG/ML VIAL. IV PRN (08:45)
[2018-06-15] MEDS: IPRATRPIUM/ALBUTEROL 0.5/2.5MG 3 ML NEBU. NEB SCH ×4 (08:45→19:55)
[2018-06-15] MEDS ORDERED: IV NORMAL SALINE 500ML BAG 500 ML IV ONE (08:45)
[2018-06-15] MEDS ORDERED: ACETAMINOPHEN 500 MG TABLET PO PRN ×2 (08:45→09:30)
[2018-06-15] MEDS ORDERED: PIP/TAZO PER PHARMACY MC PRN (08:45)
[2018-06-15] MEDS ORDERED: DEXTROSE 50% 25 GM / 50ML DISP.SYRIN. IV PRN (08:45)
[2018-06-15 08:54] LABS: CALCIUM 8.7 mg/dL (8.5-10.1); GFR 72.6; POTASSIUM 3.9 mmol/L (3.5-5.1)
[2018-06-15 08:59] LABS: ALBUMIN 2.1 g/dL (3.4-5.0); DIRECT BILIRUBIN 0.3 mg/dL (0.0-0.2); TOTAL BILIRUBIN 0.5 mg/dL (0.2-1.0); TOTAL PROTEIN 6.5 g/dL (6.4-8.2)
[2018-06-15] MEDS ORDERED: NON FORMULARY ITEM (Rosuvastatin Calcium (Crestor) 40 MG) PO SCH (09:00)
[2018-06-15] MEDS ORDERED: methylPREDNISolone SOD SUCC PF 125 MG/2 ML VIAL. IV ONE (09:00)
[2018-06-15] MEDS: LISINOPRIL 20 MG TABLET PO SCH (09:00)
[2018-06-15] MEDS: METOPROLOL TART IMMED RELEASE 50 MG TABLET. PO SCH ×2 (09:00→20:45)
[2018-06-15] MEDS: FUROSEMIDE 40 MG TABLET. PO SCH (09:00)
[2018-06-15] MEDS ORDERED: ASPIRIN ENTERIC COATED 325 MG TABLET.DR. PO SCH (09:00)
--- NOTE | 2018-06-15 09:05 | PHYS DOC ---
Past Medical History Past Medical History: Diabetes-Type II, High Cholesterol, Hypertension, Seizure, Stroke Additional Past Medical Histor: bronchiolitis obliterans, TREMORS,NECROTIC RT TOES, RT HEEL, LT OUTER ANKLE Past Surgical History: Appendectomy, Coronary Bypass Surgery Additional Past Surgical Histo: MULTIPLE TOE AMP, ROTATOR CUFF, BOVINE VALVE, LT HIP Alcohol Use: None Drug Use: None Adult General Chief Complaint Chief Complaint: SHORTNESS OF BREATH HPI HPI 78-year-old male presenting the emergency department today with worsening shortness of breath over the past 2 days. He was picked up by EMS who arrived at his home where he was dyspneic. They placed him on facemask which improved his symptoms. He is wheezing bilaterally. Patient reports having 4 L nasal cannula as needed at home at baseline. He denies any fevers but has had a cough over the past few days. Review of systems is negative for abdominal pain nausea vomiting diaphoresis fevers or chills. All other review of systems is negative. ED course: 78-year-old male presenting the emergency room today with worsening shortness of breath. On arrival the patient is tachycardic. EKG reviewed by wei caldwell shows a tachycardic left bundle-branch block pattern. Compared to previous on June 03, 2018 the morphology of the QRS is similar. He is more tachycardic now. Vital signs on arrival shows a low-grade temperature with tachycardia tachypnea saturating well on a nasal cannula that we titrated down from facemask. Blood pressure is elevated. Broad-spectrum antibiotics initiated. Lactate ordered. Thi s patient could be in sepsis however A. fib with RVR with CHF exacerbation is in the differential diagnosis as well the last we will used judicious fluid management. We will start with a 500 mL bolus. The patient does have a history of CHF. Chest x-ray shows pneumonia. White blood cell count is elevated. Otherwise chemistry panel is unremarkable. Lactate pending at this time. We'll admit the patient to the intensive care unit. I spoke with Dr. Rosa who accepted the patient for admission and was able to see the patient. On the emergency department. Basic bridge orders placed. CT angiogram is ordered and pending at this time. Review of Systems Review of Systems Constitutional: Denies fever or chills [] Eyes: Denies change in visual acuity, redness, or eye pain [] HENT: Denies nasal congestion or sore throat [] Respiratory: Denies cough or shortness of breath [] Cardiovascular: No additional information not addressed in HPI [] GI: Denies abdominal pain, nausea, vomiting, bloody stools or diarrhea [] : Denies dysuria or hematuria [] Musculoskeletal: Denies back pain or joint pain [] Integument: Denies rash or skin lesions [] Neurologic: Denies headache, focal weakness or sensory changes [] Endocrine: Denies polyuria or polydipsia [] All other systems were reviewed and found to be within normal limits, except as documented in this note. Current Medications Current Medications Current Medications Medications (Trade) Dose Ordered Sig/Ana Start Time Stop Time Status Last Admin Dose Admin Acetaminophen (Tylenol) 500 mg PRN Q6HRS PRN 06/15/18 08:45 Albuterol/ Ipratropium (Duoneb) 3 ml RTQID 06/15/18 08:45 Aspirin (Ecotrin) 81 mg DAILY 06/15/18 09:00 Atorvastatin Calcium (Lipitor) 80 mg QHS 06/15/18 21:00 Dextrose (Dextrose 50%-Water Syringe) 12.5 gm PRN Q15MIN PRN 06/15/18 08:45 Digoxin (Lanoxin) 125 mcg DAILY 06/15/18 09:00 UNV Furosemide (Lasix) 40 mg DAILY 06/15/18 09:00 Gabapentin (Neurontin) 300 mg DAILY 06/15/18 09:00 UNV Insulin Human Lispro (HumaLOG) 0-9 UNITS TIDWMEALS 06/15/18 12:00 UNV Lisinopril (Prinivil) 20 mg DAILY 06/15/18 09:00 UNV Methylprednisolone Sodium Succinate (SOLU-Medrol 125MG VIAL) 125 mg 1X ONCE 06/15/18 09:00 06/15/18 09:01 06/15/18 08:46 125 MG Metoprolol Tartrate (Lopressor) 50 mg BID 06/15/18 09:00 Morphine Sulfate (Morphine Sulfate) 2 mg PRN Q2HR PRN 06/15/18 08:45 06/16/18 08:44 Non-Formulary Medication (Acetaminophen ) 1 tab PRN Q6HRS PRN 06/15/18 08:45 UNV Non-Formulary Medication (Hydralazine Hcl ) 10 mg TID 06/15/18 09:00 UNV Non-Formulary Medication (Insulin Aspart (Novolog)) 10 unit DAILYAC 06/16/18 07:30 UNV Non-Formulary Medication (Levetiracetam ) 1,250 mg BID 06/15/18 09:00 UNV Non-Formulary Medication (Multivitamin (Multivitamins)) 1 tab DAILY 06/15/18 09:00 UNV Non-Formulary Medication (Risperidone ) 1 mg HS 06/15/18 21:00 UNV Non-Formulary Medication (Rosuvastatin Calcium (Crestor)) 40 mg DAILY 06/15/18 09:00 UNV Non-Formulary Medication (Zonisamide ) 400 mg DAILY 06/15/18 09:00 UNV Ondansetron HCl (Zofran) 4 mg PRN Q6HRS PRN 06/15/18 08:45 Piperacillin Sod/ Tazobactam Sod (Zosyn Per Pharmacy) 1 each PRN DAILY PRN 06/15/18 08:45 UNV Piperacillin Sod/ Tazobactam Sod 4.5 gm/Sodium Chloride 100 ml @ 200 mls/hr 1X ONCE 06/15/18 09:15 06/15/18 09:44 06/15/18 08:47 200 MLS/HR Sodium Chloride 1,000 ml @ 100 mls/hr Q10H 06/15/18 08:35 06/15/18 12:34 Vancomycin HCl (Vanco Per Pharmacy) 1 each PRN DAILY PRN 06/15/18 08:45 UNV Vancomycin HCl 2 gm/Sodium Chloride 500 ml @ 250 mls/hr 1X ONCE 06/15/18 09:15 06/15/18 11:14 Warfarin Sodium (Coumadin Per Pharmacy) 1 each PRN DAILY PRN 06/15/18 08:45 UNV Allergies Allergies Allergies Coded Allergies Type Severity Reaction Last Updated Verified I S O L A T I O N *CONTACT* Allergy Unknown 05/23/18 Yes No Known Medication Allergies Allergy Unknown 05/23/18 Yes Physical Exam Physical Exam Constitutional: Well developed, well nourished, no acute distress, non-toxic appearance. [] HENT: Normocephalic, atraumatic, bilateral external ears normal, oropharynx moist, no oral exudates, nose normal. [] Eyes: PERRLA, EOMI, conjunctiva normal, no discharge. [] Neck: Normal range of motion, no tenderness, supple, no stridor. [] Cardiovascular:Heart rate regular rhythm, no murmur [] Lungs & Thorax: Bilateral breath sounds clear to auscultation [] Abdomen: Bowel sounds normal, soft, no tenderness, no masses, no pulsatile masses. [] Skin: Warm, dry, no erythema, no rash. [] Back: No tenderness, no CVA tenderness. [] Extremities: No tenderness, no cyanosis, no clubbing, ROM intact, no edema. [] Neurologic: Alert and oriented X 3, normal motor function, normal sensory function, no focal deficits noted. [] Psychologic: Affect normal, judgement normal, mood normal. [] Current Patient Data Vital Signs Vital Signs Date Time Temp Pulse Resp B/P (MAP) Pulse Ox O2 Delivery O2 Flow Rate FiO2 06/15/18 08:24 Nasal Cannula 2.0 06/15/18 08:07 99.8 136 22 155/69 (97) 97 99.8 Lab Values Laboratory Tests Test 06/15/18 08:20 White Blood Count 18.5 x10^3/uL (4.0-11.0) H Red Blood Count 2.90 x10^6/uL (4.30-5.70) L Hemoglobin 7.5 g/dL (13.0-17.5) L Hematocrit 24.1 % (39.0-53.0) L Mean Corpuscular Volume 83 fL (79-100) Mean Corpuscular Hemoglobin 26 pg (25-35) Mean Corpuscular Hemoglobin Concent 31 g/dL (31-37) Red Cell Distribution Width 16.8 % (11.5-14.5) H Platelet Count 404 x10^3/uL (140-400) H Neutrophils (%) (Auto) 86 % (31-73) H Lymphocytes (%) (Auto) 4 % (24-48) L Monocytes (%) (Auto) 10 % (0-9) H Eosinophils (%) (Auto) 1 % (0-3) Basophils (%) (Auto) 0 % (0-3) Neutrophils # (Auto) 15.8 x10^3uL (1.8-7.7) H Lymphocytes # (Auto) 0.6 x10^3/uL (1.0-4.8) L Monocytes # (Auto) 1.8 x10^3/uL (0.0-1.1) H Eosinophils # (Auto) 0.2 x10^3/uL (0.0-0.7) Basophils # (Auto) 0.0 x10^3/uL (0.0-0.2) Platelet Estimate Pending Laboratory Tests 06/15/18 08:20 EKG EKG [] Radiology/Procedures Radiology/Procedures [] Course & Med Decision Making Course & Med Decision Making Pertinent Labs and Imaging studies reviewed. (See chart for details) [] Dragon Disclaimer Dragon Disclaimer This electronic medical record was generated, in whole or in part, using a voice recognition dictation system. Departure Departure Impression: Primary Impression: Tachycardia Additional Impressions: Pneumonia Sepsis Disposition: ADMITTED INPATIENT Admitting Physician: Mckenzie Rosa Condition: GUARDED Referrals: NO PCP (PCP) Critical Care Time Critical care time spent was 45 minutes exclusive of procedures. Time was spent evaluating the patient, ordering the administration of medications, reevaluating the patient, discussing with the admitting provider and documenting. Problem Qualifiers BOB BERRIOS MD June 15, 2018 09:05
--- NOTE | 2018-06-15 09:10 | PDOC1 ---
History and Physical Date of Admission Date of Admission DATE: 06/15/18 TIME: 09:00 Identification/Chief Complaint Chief Complaint S OA, weaker than on discharge Source Source: Caregiver, Chart review, Patient History of Present Illness History of Present Illness Most of the history obtained from the who is a bit frustrated about his medical course and social issues. Patient is a 78-year-old white male who was discharged just last Monday after being here for gangrene of the toe osteomyelitis needing 6 weeks of antibiotics, has a right indwelling PICC. I'm confused, but in any case she says he is on week 3 out of 6 of an antibiotic that begins with D (daptomycin ?) Insurance would not cover for LTAC stay-despite need for IV antibiotics for 6 weeks, rehabilitation etc. He is an amputee from PVD known to vascular surgery. And then insurance apparently calls the patient's at home and says they would cover for prolonged stay in the hospital. In any case medically speaking, he comes in because of SOA, no fevers, white count of 18,000 with predominance of neutrophils and bandemia.NO signif CP. Hypoxic on nonrebreather on arrival. Blood pressure and tachycardic high. Febrile 99.8. Previous smoker diagnosed with COPD but has quit 30 years ago. Chest x-ray shows bilateral pneumonia on wet read but radiologist is seeing the right pneumonia. Patient is hungry awake but weak. Patient's a lot of comorbidities namely global hypokinesis based on echo last month with an EF of 35-40% on warfarin digoxin and other cardiac meds. The rest of the labs are pending including an INR, lactate BNP etc. Patient will be admitted ICU, sepsis protocol but with cautious hydration because of low EF. Vanco and Zosyn per pharmacy. No listed allergies. I did consult pulmonary for the hypoxia and bilateral pneumonia along with ID to continue the IV antibiotics per PICC for the toe and bilateral pneumonia. We'll reconsult social work regarding this issue about hopefully insurance covering this time LTAC as I do think he qualifies and needs it. He is too weak for home health or needs of home health I did explain with the and she seemed appeased after my encounter or interaction/explanation. Full code CC 30 Past Medical History Cardiovascular: AFIB, HTN, NC Pulmonary: Asthma, Bronchitis, COPD, Pneumonia, Other CENTRAL NERVOUS SYSTEM: CVA, Periperal neuropathy GI: Other Heme/Onc: No pertinent hx Hepatobiliary: No pertinent hx Psych: Depression Musculoskeletal: Osteoarthritis Rheumatologic: No pertinent hx Infectious disease: No pertinent hx Renal/: Other Endocrine: Diabetes Past Surgical History Past Surgical History: Pacemaker, Appendectomy, CABG, Other Family History Family History: Coronary Artery Disease Social History Smoke: Quit ALCOHOL: none Drugs: None Current Medications Current Medications Current Medications Albuterol/ Ipratropium (Duoneb) 3 ml 1X ONCE NEB Last administered on 06/15/18at 08:24; Start 06/15/18 at 08:15; Stop 06/15/18 at 08:16; Status DC Methylprednisolone Sodium Succinate (SOLU-Medrol 125MG VIAL) 125 mg 1X ONCE IV Last administered on 06/15/18at 08:46; Start 06/15/18 at 09:00; Stop 06/15/18 at 09:01 Vancomycin HCl (Vanco Per Pharmacy) 1 each PRN DAILY PRN MC SEE COMMENTS; Start 06/15/18 at 08:45; Status UNV Piperacillin Sod/ Tazobactam Sod (Zosyn Per Pharmacy) 1 each PRN DAILY PRN MC SEE COMMENTS; Start 06/15/18 at 08:45; Status UNV Sodium Chloride 500 ml @ 500 mls/hr 1X ONCE IV Last administered on 06/15/18at 08:47; Start 06/15/18 at 08:45; Stop 06/15/18 at 09:44 Vancomycin HCl 2 gm/Sodium Chloride 500 ml @ 250 mls/hr 1X ONCE IV ; Start 06/15/18 at 09:15; Stop 06/15/18 at 11:14 Piperacillin Sod/ Tazobactam Sod 4.5 gm/Sodium Chloride 100 ml @ 200 mls/hr 1X ONCE IV Last administered on 06/15/18at 08:47; Start 06/15/18 at 09:15; Stop 06/15/18 at 09:44 Ondansetron HCl (Zofran) 4 mg PRN Q8HRS PRN IV NAUSEA/VOMITING; Start 06/15/18 at 08:45; Stop 06/16/18 at 08:44 Morphine Sulfate (Morphine Sulfate) 2 mg PRN Q2HR PRN IV PAIN; Start 06/15/18 at 08:45; Stop 06/16/18 at 08:44 Sodium Chloride 1,000 ml @ 100 mls/hr Q10H IV ; Start 06/15/18 at 08:35; Stop 06/15/18 at 12:34 Albuterol/ Ipratropium (Duoneb) 3 ml RTQID NEB ; Start 06/15/18 at 08:45 Acetaminophen (Tylenol) 500 mg PRN Q6HRS PRN PO MILD PAIN / TEMP; Start 06/15/18 at 08:45 Ondansetron HCl (Zofran) 4 mg PRN Q6HRS PRN IV NAUSEA/VOMITING; Start 06/15/18 at 08:45 Aspirin (Ecotrin) 81 mg DAILY PO ; Start 06/15/18 at 09:00 Digoxin (Lanoxin) 125 mcg DAILY PO ; Start 06/15/18 at 09:00; Status UNV Furosemide (Lasix) 40 mg DAILY PO ; Start 06/15/18 at 09:00 Gabapentin (Neurontin) 300 mg DAILY PO ; Start 06/15/18 at 09:00; Status UNV Lisinopril (Prinivil) 20 mg DAILY PO ; Start 06/15/18 at 09:00; Status UNV Metoprolol Tartrate (Lopressor) 50 mg BID PO ; Start 06/15/18 at 09:00 Non-Formulary Medication (Acetaminophen ) 1 tab PRN Q6HRS PRN PO MILD PAIN / TEMP; Start 06/15/18 at 08:45; Status UNV Atorvastatin Calcium (Lipitor) 80 mg QHS PO ; Start 06/15/18 at 21:00 Non-Formulary Medication (Hydralazine Hcl ) 10 mg TID PO ; Start 06/15/18 at 09:00; Status UNV Non-Formulary Medication (Insulin Aspart (Novolog)) 10 unit DAILYAC SQ ; Start 06/16/18 at 07:30; Status UNV Non-Formulary Medication (Levetiracetam ) 1,250 mg BID PO ; Start 06/15/18 at 09:00; Status UNV Non-Formulary Medication (Multivitamin (Multivitamins)) 1 tab DAILY PO ; Start 06/15/18 at 09:00; Status UNV Non-Formulary Medication (Risperidone ) 1 mg HS PO ; Start 06/15/18 at 21:00; Status UNV Non-Formulary Medication (Rosuvastatin Calcium (Crestor)) 40 mg DAILY PO ; Start 06/15/18 at 09:00; Status UNV Non-Formulary Medication (Zonisamide ) 400 mg DAILY PO ; Start 06/15/18 at 09:00; Status UNV Insulin Human Lispro (HumaLOG) 0-9 UNITS TIDWMEALS SQ ; Start 06/15/18 at 12:00; Status UNV Dextrose (Dextrose 50%-Water Syringe) 12.5 gm PRN Q15MIN PRN IV SEE COMMENTS; Start 06/15/18 at 08:45 Warfarin Sodium (Coumadin Per Pharmacy) 1 each PRN DAILY PRN MC SEE COMMENTS; Start 06/15/18 at 08:45; Status UNV Active Scripts Active Digoxin 125 Mcg Tablet 125 Mcg PO DAILY Furosemide 40 Mg Tablet 40 Mg PO DAILY Metoprolol Tartrate 50 Mg Tablet 50 Mg PO BID [Warfarin Sodium] 1 EACH Each 1 Each MC PRN DAILY PRN Lisinopril 20 Mg Tablet 20 Mg PO DAILY Duoneb 0.5-3(2.5) Mg/3 Ml (Albuterol/Ipratropium) 3 Ml Ampul.neb 3 Ml NEB Q4HRS W/A 30 Days Hydralazine Hcl 10 Mg Tablet 10 Mg PO TID Reported Zonisamide 100 Mg Capsule 400 Mg PO DAILY Percocet 5-325 Mg Tablet (Oxycodone/Acetaminophen) 1 Each Tablet 1 Tab PO PRN Q4HRS PRN Multivitamins (Multivitamin) 1 Each Tablet 1 Tab PO DAILY Levetiracetam 250 Mg Tablet 1,250 Mg PO BID Novolin N (Nph, Human Insulin Isophane) 100 Unit/1 Ml Vial Unknown Dose SQ Atorvastatin Calcium 80 Mg Tablet 1 Tab PO DAILY Acetaminophen 500 Mg Tablet 1 Tab PO PRN Q6HRS PRN Albuterol Sulfate Hfa Inhaler (Albuterol Sulfate) 8.5 Gm Hfa.aer.ad 2 Puff IH PRN Q6HRS PRN Aspirin Ec (Aspirin) 325 Mg Tablet.dr 81 Mg PO DAILY Crestor (Rosuvastatin Calcium) 40 Mg Tablet 40 Mg PO DAILY Warfarin Sodium 5 Mg Tablet 6 Mg PO DAILY Warfarin Sodium 2.5 Mg Tablet 2.5 Mg PO 3X/WEEK monday,monday, Gabapentin (Gabapentin) 300 Mg Capsule 300 Mg PO DAILY Risperidone 1 Mg Tablet 1 Mg PO HS Novolog (Insulin Aspart) 100 Unit/1 Ml Vial 10 Unit SQ DAILYAC Oxycodone-Acetaminophen 10-325 (Oxycodone Hcl/Acetaminophen) 1 Each Tablet 1 Each PO PRN Q6HRS Potassium 99 Mg Tablet 20 Meq PO DAILY Prednisone (Prednisone) 10 Mg Tablet 10 Mg PO DAILY Metformin Hcl 500 Mg Tablet 1,000 Mg PO BIDBFRMEAL Allergies Allergies: Coded Allergies: I S O L A T I O N *CONTACT* (Verified Allergy, Unknown, 05/23/18) mrsa No Known Medication Allergies (Verified Allergy, Unknown, 05/23/18) ROS Review of System too weak to fully obtain Physical Exam General: moderate distress HEENT: Atraumatic, PERRLA Lungs: Normal air movement, Other (symmetrical chest expansion diminished at the bases may be minor crackles but not significant- no wheezing) Heart: RRR, no thrills, no rubs, no gallops, no murmurs, other (sinus tachycardia) Cardiovascular: S1 Breasts: Normal, Rt breast nml w/o mass, Lt breast nml w/o mass, Nipples normal Abdomen: Normal bowel sounds, Soft, No tenderness, No hepatosplenomegaly, No masses, Other (he has an old CABG scar and multiple abdominal scars-history of drain etc. taken down in the distant past) Rectal Exam: not examined PELVIC: Nml ext genitalia Extremities: Other (he is bilateral amputee with wound dressing) Neuro: Normal tone, Sensation intact, Cranial nerves 3-12 NL, Reflexes 2+ Vitals Vitals Vital Signs Date Time Temp Pulse Resp B/P (MAP) Pulse Ox O2 Delivery O2 Flow Rate FiO2 06/15/18 08:24 Nasal Cannula 2.0 06/15/18 08:07 99.8 136 22 155/69 (97) 97 99.8 Labs Labs Laboratory Tests Test 06/15/18 08:20 White Blood Count 18.5 x10^3/uL (4.0-11.0) Red Blood Count 2.90 x10^6/uL (4.30-5.70) Hemoglobin 7.5 g/dL (13.0-17.5) Hematocrit 24.1 % (39.0-53.0) Mean Corpuscular Volume 83 fL (79-100) Mean Corpuscular Hemoglobin 26 pg (25-35) Mean Corpuscular Hemoglobin Concent 31 g/dL (31-37) Red Cell Distribution Width 16.8 % (11.5-14.5) Platelet Count 404 x10^3/uL (140-400) Neutrophils (%) (Auto) 86 % (31-73) Lymphocytes (%) (Auto) 4 % (24-48) Monocytes (%) (Auto) 10 % (0-9) Eosinophils (%) (Auto) 1 % (0-3) Basophils (%) (Auto) 0 % (0-3) Neutrophils # (Auto) 15.8 x10^3uL (1.8-7.7) Lymphocytes # (Auto) 0.6 x10^3/uL (1.0-4.8) Monocytes # (Auto) 1.8 x10^3/uL (0.0-1.1) Eosinophils # (Auto) 0.2 x10^3/uL (0.0-0.7) Basophils # (Auto) 0.0 x10^3/uL (0.0-0.2) Sodium Level 137 mmol/L (136-145) Potassium Level 3.9 mmol/L (3.5-5.1) Chloride Level 100 mmol/L (98-107) Carbon Dioxide Level 27 mmol/L (21-32) Anion Gap 10 (6-14) Blood Urea Nitrogen 15 mg/dL (8-26) Creatinine 1.0 mg/dL (0.7-1.3) Estimated GFR (Cockcroft-Gault) 72.6 Glucose Level 170 mg/dL (70-99) Calcium Level 8.7 mg/dL (8.5-10.1) Laboratory Tests Test 06/15/18 08:20 White Blood Count 18.5 x10^3/uL (4.0-11.0) Red Blood Count 2.90 x10^6/uL (4.30-5.70) Hemoglobin 7.5 g/dL (13.0-17.5) Hematocrit 24.1 % (39.0-53.0) Mean Corpuscular Volume 83 fL (79-100) Mean Corpuscular Hemoglobin 26 pg (25-35) Mean Corpuscular Hemoglobin Concent 31 g/dL (31-37) Red Cell Distribution Width 16.8 % (11.5-14.5) Platelet Count 404 x10^3/uL (140-400) Neutrophils (%) (Auto) 86 % (31-73) Lymphocytes (%) (Auto) 4 % (24-48) Monocytes (%) (Auto) 10 % (0-9) Eosinophils (%) (Auto) 1 % (0-3) Basophils (%) (Auto) 0 % (0-3) Neutrophils # (Auto) 15.8 x10^3uL (1.8-7.7) Lymphocytes # (Auto) 0.6 x10^3/uL (1.0-4.8) Monocytes # (Auto) 1.8 x10^3/uL (0.0-1.1) Eosinophils # (Auto) 0.2 x10^3/uL (0.0-0.7) Basophils # (Auto) 0.0 x10^3/uL (0.0-0.2) Sodium Level 137 mmol/L (136-145) Potassium Level 3.9 mmol/L (3.5-5.1) Chloride Level 100 mmol/L (98-107) Carbon Dioxide Level 27 mmol/L (21-32) Anion Gap 10 (6-14) Blood Urea Nitrogen 15 mg/dL (8-26) Creatinine 1.0 mg/dL (0.7-1.3) Estimated GFR (Cockcroft-Gault) 72.6 Glucose Level 170 mg/dL (70-99) Calcium Level 8.7 mg/dL (8.5-10.1) VTE Prophylaxis Ordered VTE Prophylaxis Devices: Yes VTE Pharmacological Prophylaxi: Yes Assessment/Plan Assessment/Plan Sepsis source, bilateral pneumonia HCAP Hypoxic respiratory failure, history COPD, ex-smoker having quit 30 years ago - NRB at ER Febrile, leukocytosis with bandemia Accelerated hypertension POA History severe systolic cardiomyopathy global hypokinesis EF 35-40%-echo 05/2018 History Pseudomonas UTI Amputee-recent osteomyelitis/toe gangrene - R indwelling PICC - week 3 of 6 IV abx - HH PVD - known to vasc sx Functional quadriplegia-generalized weakness Anemia of chronic disease Diabetes FULL CODE PLAN: ICU Bed, sepsis protocol but cautious hydration given global hypokinesis Consult pulmonary and ID Nonrebreather if needed or even BiPAP if needed ( will need to have hypercapnea too in ABG) I have reconciled home meds Okay for ADA diet-he is awake enough to swallow Sliding-scale insulin No need to check A1c if recently checked last admission Vanco and Zosyn Blood cultures have been drawn INR per pharmacy with goal 2-3 Add ESR and INR checked to labs BMP is still pending I did hold metformin and K since I do not have the BMP yet Continue Lasix home dose Full code Social work consult for issues with insurance if they could screen again for LTAC-I think he needs it Discussed with significant time in the ER #2 Wound care consult for the recent leg wound ARABELLA MARTINEZ MD June 15, 2018 09:10
[2018-06-15] MEDS ORDERED: VANCOMYCIN 2 GM in IV NORMAL SALINE 500ML BAG 500 ML IV ONE (09:15)
[2018-06-15] MEDS ORDERED: PIPERACILLIN/TAZOBACTAM 4.5 GM in IV NORMAL SALINE 100ML 100 ML IV ONE (09:15)
[2018-06-15 09:16] LABS: % BANDS 2 % (0-9); % LYMPHS 5 % (24-48); % MONOS 6 % (0-10); % MYELOS 1 % (0-0); % SEGS 86 % (35-66)
[2018-06-15 09:17] LABS: PROTHROMBIN TIME PATIENT 41.3 SEC (11.7-14.0)
[2018-06-15 09:18] LABS: ANISOCYTOSIS SLIGHT; PLT ESTIMATE ADEQUATE (ADEQUATE); POLYCHROMASIA SLIGHT
[2018-06-15 09:20] LABS: OVALOCYTES FEW
[2018-06-15] MEDS: INSULIN LISPRO 300 UNITS/3 ML INSULN.PEN. SQ SCH ×3 (09:20→17:00)
[2018-06-15] MEDS: risperiDONE 1 MG TABLET. PO SCH ×2 (09:45→20:43)
[2018-06-15] MEDS: hydrALAZINE 10 MG TABLET PO SCH ×3 (10:00→20:43)
[2018-06-15] MEDS: GABAPENTIN 300 MG CAPSULE. PO SCH (11:53)
[2018-06-15] MEDS: MULTIVITAMIN with MINERAL TABLET. PO SCH (11:53)
[2018-06-15] MEDS: DIGOXIN 125 MCG TABLET. PO SCH (11:54)
[2018-06-15] MEDS: ZONISAMIDE 100 MG CAPSULE. PO SCH (11:54)
[2018-06-15] MEDS: levETIRAcetam 250 MG TABLET PO SCH ×2 (11:55→20:42)
--- NOTE | 2018-06-15 12:21 | EKG ---
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
[2018-06-15 13:03] LABS: BILIRUBIN,URINE SMALL (NEG); CLARITY,URINE CLOUDY; NITRITE,URINE NEGATIVE (NEG); PH,URINE 5.5; PROTEIN,URINE 100 mg/dL (NEG-TRACE)
[2018-06-15 13:14] LABS: BACTERIA,URINE MANY /HPF (0-FEW); COLOR,URINE YELLOW; WBC,URINE >40 /HPF (0-4)
[2018-06-15] MEDS: VANCOMYCIN PER PHARMACY MC PRN (14:59)
--- NOTE | 2018-06-15 15:00 | NUR ---
Pharmacy Vancomycin Dosing Note S:Consulted to monitor and dose vancomycin started 06/15/18. O:VICKI BRAUN is a 78 year old M with HCAP . Height: 5 feet, 10 inches Weight: 97.440607 kg [place] Body Weight: 73.00 Adjusted Body Weight: 82.60 Dosing Weight: Actual Other Antibiotics: LABS: Last BUN: 15 Last Creatinine: 1.0 Creatinine Clearance: 73 mL/min Last WBC: 18.5 Last Procalcitonin: Tmax (past 24 hours): 99.8 Microbiology: I/O: Drug Levels: Last level: on at Last dose given at Vancomycin Dosing: Loading Dose: 2000 mg x1 Dosing Weight: Actual Target Trough: 15-20 A: Based on: HT, WT AND RENAL FUNCTION P: 1. Begin Vancomycin 1500 mg IV q18h 2. Follow up Trough level on 06/17/18 at 1430 3. Pharmacy will continue to monitor, follow and adjust therapy as needed. GAIL GEORGES, [facility], 06/15/18 1500
--- NOTE | 2018-06-15 15:02 | NUR ---
Wound care: Patient seen per wound care consult. See wound assessment. Patient had recent right BKA, matti intact and suture line approximated. Cleansed will chloraprep and sheath and stabilizer placed back on patient. All Wounds cleansed, assessed, measured, and pictured. Patient has multiple pressure ulcers and one DFU to left lateral ankle. Dressings applied and patient tolerated well. Dressing change instructions left in room. Patient repositioned using wedge to left side. Heel medix placed back on left foot. Left arm elevated on pillows as there is large amount of edema to entire extremity. Bed lowered and call light in reach. Patient appears lethargic but responding. Patient on ICU bed at this time. Will follow patient regarding wound care.
[2018-06-15] MEDS: PIPERACILLIN/TAZOBACTAM 4.5 GM in IV NORMAL SALINE 100ML 100 ML IV SCH (17:00)
[2018-06-15] MEDS: ATORVASTATIN CALCIUM 40 MG TABLET. PO SCH (20:43)
[2018-06-16] VITALS (35 sets, daily range): BP systolic 90–138; BP diastolic 37–91
[2018-06-16] MEDS: PIPERACILLIN/TAZOBACTAM 4.5 GM in IV NORMAL SALINE 100ML 100 ML IV SCH ×4 (02:23→16:57)
[2018-06-16] MEDS: VANCOMYCIN 1.5 GM in IV NORMAL SALINE 500ML BAG 500 ML IV SCH ×2 (03:53→21:49)
--- NOTE | 2018-06-16 05:39 | CONS ---
DATE OF CONSULTATION: 06/15/2018 ATTENDING PHYSICIAN: Mckenzie Rosa M.D. REASON FOR CONSULTATION: The patient seen in Pulmonary consultation at the request of Dr. Rosa for abnormal chest x-ray. HISTORY OF PRESENT ILLNESS: The patient is a 78-year-old that presented to the Emergency Department with increasing shortness of breath over the last 2-3 days. No nausea, vomiting or diarrhea. No subjective fever or documented fever. The patient uses oxygen at home p.r.n. He does not walk as he is an amputee, below-knee amputation on the right and he has had toes removed on the left. He states that he is taking his water pill and all of his medications as prescribed. He has a history of CHF, AFib, presented with acute onset of shortness of air. His chest x-ray is compatible with [id number] congestive heart failure. The patient is in the intensive care unit. His heart rate is elevated. He does have a history of AFib. PAST MEDICAL HISTORY: Remarkable for chronic heart failure; type 2 diabetes; hyperlipidemia; hypertension; COPD, quit tobacco 4 years ago; prior history of seizures and stroke. PAST SURGICAL HISTORY: He has had previous necrotic left toe excised. He has had amputation on the right, status post coronary artery bypass grafting, appendectomy, rotator cuff repair. REVIEW OF SYSTEMS: CONSTITUTIONAL: No fever or chills. EYES: No change in visual acuity. HEENT: No nasal congestion or sore throat. PULMONARY: As indicated above. CARDIOVASCULAR: No chest pain or pressure. GASTROINTESTINAL: No nausea, vomiting or diarrhea. GENITOURINARY: No dysuria or frequency. MUSCULOSKELETAL: No localized muscle aches or joint pain. SKIN: No new skin rashes. ALLERGIES: To FENTANYL. SOCIAL HISTORY: The patient lives with his , currently not smoking. No excessive alcohol intake. FAMILY HISTORY: No family history of lung disorders. PHYSICAL EXAMINATION: VITAL SIGNS: On examination, the patient was awake, alert, following commands, in no significant respiratory distress. HEENT: Eyes, the sclerae were nonicteric. NECK: Jugular venous distention was not elevated. No lymphadenopathy. CHEST: Full expansion. LUNGS: Crackles bilaterally with no wheezes. CARDIOVASCULAR: Regular rate and rhythm with S1 and S2. No S3. ABDOMEN: Soft, distended. EXTREMITIES: He had marked edema of the left upper extremity. Some edema of the right. He did have edema of the right lower extremity. NEUROLOGICAL: The patient was awake, alert and following commands. A detailed neuro exam was not performed. LABORATORY DATA: White count was elevated. Hemoglobin and hematocrit 7.5 and 24. INR was 4.3. UA was noted. Electrolytes were normal. BNP was elevated. Albumin was low. IMPRESSION: 1. Acute hypoxemic respiratory failure. 2. [id number]-[id number] diastolic heart failure. 3. Atrial fibrillation with rapid ventricular response. 4. Coronary artery disease, status post coronary artery bypass grafting. 5. Leukocytosis, suspect reactive. 6. 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 7. Peripheral vascular disease. 8. Functional quadriplegia. 9. Accelerated hypertension. 10. Severe protein malnutrition. PLAN: 1. Continue diuresis. 2. Control heart rate. 3. ID has been consulted, I do not think that the infiltrates and x-rays are related to pneumonia. 4. Suspect the leukocytosis is reactive. We will monitor for now. 5. Monitor INR. 6. We will continue broad-spectrum antibiotics until Infectious Disease sees the patient. 7. drug abuse worker to address home care. 8. Dietary consultation. A very complex situation with comorbidities and clinical presentation compatible with acute on chronic heart failure, possible sepsis. We will follow along. Case discussed with RN. Total cumulative critical care time of 40 minutes. MANDEEP ZEPEDA MD DR: EUGENIA/arely JOB#: [id number] / [id number]
[2018-06-16] MEDS ORDERED: NON FORMULARY ITEM (Insulin Aspart (Novolog) 10 UNIT) SQ SCH (07:30)
[2018-06-16] MEDS: IPRATRPIUM/ALBUTEROL 0.5/2.5MG 3 ML NEBU. NEB SCH ×4 (07:37→20:00)
[2018-06-16] MEDS: MULTIVITAMIN with MINERAL TABLET. PO SCH (08:21)
[2018-06-16] MEDS: levETIRAcetam 250 MG TABLET PO SCH ×2 (08:22→22:50)
[2018-06-16] MEDS: LISINOPRIL 20 MG TABLET PO SCH (08:22)
[2018-06-16] MEDS: ZONISAMIDE 100 MG CAPSULE. PO SCH (08:22)
[2018-06-16] MEDS: GABAPENTIN 300 MG CAPSULE. PO SCH (08:22)
[2018-06-16] MEDS: DIGOXIN 125 MCG TABLET. PO SCH (08:23)
[2018-06-16] MEDS: FUROSEMIDE 40 MG TABLET. PO SCH (08:23)
[2018-06-16] MEDS: METOPROLOL TART IMMED RELEASE 50 MG TABLET. PO SCH ×2 (08:23→22:50)
[2018-06-16] MEDS: hydrALAZINE 10 MG TABLET PO SCH ×3 (08:24→22:51)
[2018-06-16] MEDS: INSULIN LISPRO 300 UNITS/3 ML INSULN.PEN. SQ SCH ×3 (08:25→17:02)
[2018-06-16] MEDS: ASPIRIN ENTERIC COATED 81 MG TABLET.DR. PO SCH (09:07)
--- NOTE | 2018-06-16 09:15 | PDOC ---
PULMONARY PROGRESS NOTES Subjective PT NOT MORE SOA FEEL BETTER Vitals Vital Signs Date Time Temp Pulse Resp B/P (MAP) Pulse Ox O2 Delivery O2 Flow Rate FiO2 06/16/18 09:10 70 12 109/60 (76) 94 Nasal Cannula 2.0 06/16/18 08:00 97.6 97.6 ROS: No Chest Pain, No Abdominal Pain, No Increase Cough General: Alert Lungs: Clear Cardiovascular: S1 Abdomen: Soft, Non-tender, Other Extremities: Other (L ARM SWOLLEN) Labs Laboratory Tests Test 06/15/18 08:15 06/15/18 08:20 06/16/18 07:54 Urine Collection Type U cath Urine Color Yellow Urine Clarity Cloudy Urine pH 5.5 Urine Specific [place] 1.025 Urine Protein 100 mg/dL (NEG-TRACE) Urine Glucose (UA) Negative mg/dL (NEG) Urine Ketones (Stick) Negative mg/dL (NEG) Urine Blood Moderate (NEG) Urine Nitrite Negative (NEG) Urine Bilirubin Small (NEG) Urine Urobilinogen Dipstick 1.0 mg/dL (0.2 mg/dL) Urine Leukocyte Esterase Moderate (NEG) Urine RBC 11-20 /HPF (0-2) Urine WBC >40 /HPF (0-4) Urine Bacteria Many /HPF (0-FEW) Urine Mucus Marked /LPF White Blood Count 18.5 x10^3/uL (4.0-11.0) Red Blood Count 2.90 x10^6/uL (4.30-5.70) Hemoglobin 7.5 g/dL (13.0-17.5) Hematocrit 24.1 % (39.0-53.0) Mean Corpuscular Volume 83 fL (79-100) Mean Corpuscular Hemoglobin 26 pg (25-35) Mean Corpuscular Hemoglobin Concent 31 g/dL (31-37) Red Cell Distribution Width 16.8 % (11.5-14.5) Platelet Count 404 x10^3/uL (140-400) Neutrophils (%) (Auto) 86 % (31-73) Lymphocytes (%) (Auto) 4 % (24-48) Monocytes (%) (Auto) 10 % (0-9) Eosinophils (%) (Auto) 1 % (0-3) Basophils (%) (Auto) 0 % (0-3) Neutrophils # (Auto) 15.8 x10^3uL (1.8-7.7) Lymphocytes # (Auto) 0.6 x10^3/uL (1.0-4.8) Monocytes # (Auto) 1.8 x10^3/uL (0.0-1.1) Eosinophils # (Auto) 0.2 x10^3/uL (0.0-0.7) Basophils # (Auto) 0.0 x10^3/uL (0.0-0.2) Segmented Neutrophils % 86 % (35-66) Band Neutrophils % 2 % (0-9) Lymphocytes % 5 % (24-48) Monocytes % 6 % (0-10) Myelocytes % 1 % (0-0) Platelet Estimate Adequate (ADEQUATE) Polychromasia Slight Anisocytosis Slight Ovalocytes Few Erythrocyte Sedimentation Rate 130 (0-15) Prothrombin Time 41.3 SEC (11.7-14.0) Prothromb Time International Ratio 4.3 (0.8-1.1) Sodium Level 137 mmol/L (136-145) Potassium Level 3.9 mmol/L (3.5-5.1) Chloride Level 100 mmol/L (98-107) Carbon Dioxide Level 27 mmol/L (21-32) Anion Gap 10 (6-14) Blood Urea Nitrogen 15 mg/dL (8-26) Creatinine 1.0 mg/dL (0.7-1.3) Estimated GFR (Cockcroft-Gault) 72.6 Glucose Level 170 mg/dL (70-99) Lactic Acid Level 1.1 mmol/L (0.4-2.0) Calcium Level 8.7 mg/dL (8.5-10.1) Total Bilirubin 0.5 mg/dL (0.2-1.0) Direct Bilirubin 0.3 mg/dL (0.0-0.2) Aspartate Amino Transf (AST/SGOT) 23 U/L (15-37) Alanine Aminotransferase (ALT/SGPT) 24 U/L (16-63) Alkaline Phosphatase 87 U/L (46-116) Troponin I Quantitative 0.031 ng/mL (0.000-0.055) AP-Urv-B-Type Natriuretic Peptide 50688 pg/mL (0-449) Total Protein 6.5 g/dL (6.4-8.2) Albumin 2.1 g/dL (3.4-5.0) Lipase 35 U/L (73-393) Glucose (Fingerstick) 183 mg/dL (70-99) Laboratory Tests Test 06/16/18 07:54 Glucose (Fingerstick) 183 mg/dL (70-99) Medications Active Scripts Medications Dose Route/Sig Max Daily Dose Days Date Category Dose Instructions Digoxin 125 Mcg Tablet 125 Mcg PO DAILY 05/15/16 Rx Furosemide 40 Mg Tablet 40 Mg PO DAILY 05/15/16 Rx Zonisamide 100 Mg Capsule 400 Mg PO DAILY 05/11/16 Reported Percocet 5-325 Mg Tablet (Oxycodone/Acetaminophen) 1 Each Tablet 1 Tab PO PRN Q4HRS PRN 05/11/16 Reported Multivitamins (Multivitamin) 1 Each Tablet 1 Tab PO DAILY 05/11/16 Reported Levetiracetam 250 Mg Tablet 1,250 Mg PO BID 05/11/16 Reported Novolin N (Nph, Human Insulin Isophane) 100 Unit/1 Ml Vial Unknown Dose SQ 05/11/16 Reported Atorvastatin Calcium 80 Mg Tablet 1 Tab PO DAILY 05/11/16 Reported Acetaminophen 500 Mg Tablet 1 Tab PO PRN Q6HRS PRN 05/11/16 Reported Metoprolol Tartrate 50 Mg Tablet 50 Mg PO BID 02/24/16 Rx [Warfarin Sodium] 1 EACH Each 1 Each MC PRN DAILY PRN 02/24/16 Rx Lisinopril 20 Mg Tablet 20 Mg PO DAILY 02/24/16 Rx Duoneb 0.5-3(2.5) Mg/3 Ml (Albuterol/Ipratropium) 3 Ml Ampul.neb 3 Ml NEB Q4HRS W/A 30 02/24/16 Rx Hydralazine Hcl 10 Mg Tablet 10 Mg PO TID 02/24/16 Rx Albuterol Sulfate Hfa Inhaler (Albuterol Sulfate) 8.5 Gm Hfa.aer.ad 2 Puff IH PRN Q6HRS PRN 02/20/13 Reported Aspirin Ec (Aspirin) 325 Mg Tablet.dr 81 Mg PO DAILY 02/20/13 Reported Crestor (Rosuvastatin Calcium) 40 Mg Tablet 40 Mg PO DAILY 02/19/13 Reported Warfarin Sodium 5 Mg Tablet 6 Mg PO DAILY 02/19/13 Reported Warfarin Sodium 2.5 Mg Tablet 2.5 Mg PO 3X/WEEK 02/19/13 Reported monday,monday, Gabapentin (Gabapentin) 300 Mg Capsule 300 Mg PO DAILY 02/19/13 Reported Risperidone 1 Mg Tablet 1 Mg PO HS 02/19/13 Reported Novolog (Insulin Aspart) 100 Unit/1 Ml Vial 10 Unit SQ DAILYAC 02/19/13 Reported Oxycodone-Acetaminophen 10-325 (Oxycodone Hcl/Acetaminophen) 1 Each Tablet 1 Each PO PRN Q6HRS 02/19/13 Reported Potassium 99 Mg Tablet 20 Meq PO DAILY 02/19/13 Reported Prednisone (Prednisone) 10 Mg Tablet 10 Mg PO DAILY 02/19/13 Reported Metformin Hcl 500 Mg Tablet 1,000 Mg PO BIDBFRMEAL 02/19/13 Reported Impression . IMPRESSION: 1. Acute hypoxemic respiratory failure. 2. Lowci-nt-xrxijdv diastolic heart failure. 3. Atrial fibrillation with rapid ventricular response. 4. Coronary artery disease, status post coronary artery bypass grafting. 5. Leukocytosis, suspect reactive. 6. 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 7. Peripheral vascular disease. 8. Functional quadriplegia. 9. Accelerated hypertension. 10. Severe protein malnutrition. 11 h/o MRSA bacteremia with sepsis from 05/18. D/c Dapto till 07/02 -CRYSTAL done no vegetations 05/21; BC from 05/20 & onward were neg (PER ID) Plan . PRN BIPAP U/S UPPER L EXT DIURESE CONTROL HR FOLLOW ID REC DIETARY CONSULT COMPLEX DECISION MAKING CCT 30 MIN MANDEEP ZEPEDA MD June 16, 2018 09:15
[2018-06-16 09:32] LABS: CALCIUM 8.3 mg/dL (8.5-10.1); GFR 72.6; POTASSIUM 4.4 mmol/L (3.5-5.1)
--- NOTE | 2018-06-16 09:34 | PDOC ---
Infectious Disease Note Vital Sign Vital Signs Vital Signs Date Time Temp Pulse Resp B/P (MAP) Pulse Ox O2 Delivery O2 Flow Rate FiO2 06/16/18 08:24 128/66 06/16/18 08:23 85 06/16/18 08:00 97.6 12 95 Nasal Cannula 2.0 97.6 Labs Lab Laboratory Tests Test 06/16/18 07:54 Glucose (Fingerstick) 183 mg/dL (70-99) Objective Assessment Right perihilar infiltrate. Leukocytosis Chronic [place] with pyuria, POA. UC pending h/o MRSA bacteremia with sepsis from 05/18. D/c Dapto till 07/02 -CRYSTAL done no vegetations 05/21; BC from 05/20 & onward were neg Acute on chronic CHF h/o MRSA and Enterobacter ( R Augmentin/cefuroxime) infection h/o PSA ( R quinolones & I imipenem) infection Bioprosthetic aortic valve A- fib, anticoagulation on warfarin Diabetes Type II Seizure disorder, on Keppra Plan Plan of Care Clinically improving, continue vanc and Zosyn for now Monitor renal function closely He was previously on Dapto at home for h/o MRSA bacteremia. He will need to continue treatment till July 02. Wound care team consulted Check CPK PICC maintenance care Change Denisa D/w nursing Thank you [phone] Patient seen and examined. Chart reviewed in detail. Case discussed with CURING SUPERVISOR. Agree with above plan. GIO GASPAR APRN June 16, 2018 09:34 DIOGENES HASTINGS MD June 16, 2018 22:12
[2018-06-16 09:47] LABS: BASO # 0.1 x10^3/uL (0.0-0.2); BASO % 1 % (0-3); EOS % 0 % (0-3); HEMATOCRIT 22.2 % (39.0-53.0); LYMPH # 0.3 x10^3/uL (1.0-4.8); LYMPH % 2 % (24-48); MEAN CORPUSCULAR HEMOGLOBIN 26 pg (25-35); MEAN CORPUSCULAR HGB CONC 30 g/dL (31-37); MEAN CORPUSCULAR VOLUME 85 fL (79-100); MONO # 0.6 x10^3/uL (0.0-1.1); MONO % 5 % (0-9); NEUT # 11.3 x10^3uL (1.8-7.7); NEUT % 92 % (31-73); PLATELET COUNT 314 x10^3/uL (140-400); RED BLOOD COUNT 2.62 x10^6/uL (4.30-5.70); RED CELL DISTRIBUTION WIDTH 16.9 % (11.5-14.5); WHITE BLOOD COUNT 12.2 x10^3/uL (4.0-11.0)
[2018-06-16 09:50] LABS: HEMOGLOBIN 6.7 g/dL (13.0-17.5)
[2018-06-16 09:58] LABS: PROTHROMBIN TIME PATIENT 51.5 SEC (11.7-14.0)
[2018-06-16] MEDS ORDERED: PHYTONADIONE 10 MG/ML ORAL SOLUTION. PO ONE (11:00)
--- NOTE | 2018-06-16 11:46 | PDOC ---
[employer] PROGRESS NOTE Chief Complaint Chief Complaint Pneumonia with right perihilar infiltrate. Leukocytosis Chronic Crawley with pyuria MRSA bacteremia with sepsis from 05/18. D/c Dapto till 07/02 Acute on chronic CHF MRSA and Enterobacter ( R Augmentin/cefuroxime) infection PSA ( R quinolones & I imipenem) infection Bioprosthetic aortic valve A- fib Anticoagulation on warfarin Diabetes Type II Seizure disorder, on Keppra Noncompliance New anemia with possible GI bleed Over anticoagulation noted today with INR 5.7 History of Present Illness History of Present Illness Patient seen and examined in the intensive care unit I discussed the case at length with his RN Patient's hematoma has dropped from 8 to 6.7 His INR is now high as well at 5.7 He denies dark stools or bloody stools or hemoptysis? 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 taken down in the distant past) Extremities: Other (he is bilateral amputee with wound dressing he also has a stump protector on the right and a knee brace on the right) Labs LABS Laboratory Tests Test 06/16/18 07:54 06/16/18 08:30 06/16/18 09:30 06/16/18 11:22 Glucose (Fingerstick) 183 mg/dL (70-99) 224 mg/dL (70-99) Sodium Level 141 mmol/L (136-145) Potassium Level 4.4 mmol/L (3.5-5.1) Chloride Level 104 mmol/L (98-107) Carbon Dioxide Level 27 mmol/L (21-32) Anion Gap 10 (6-14) Blood Urea Nitrogen 17 mg/dL (8-26) Creatinine 1.0 mg/dL (0.7-1.3) Estimated GFR (Cockcroft-Gault) 72.6 Glucose Level 197 mg/dL (70-99) Calcium Level 8.3 mg/dL (8.5-10.1) Creatine Kinase 34 U/L (39-308) Procalcitonin 0.36 ng/mL (0.00-0.10) White Blood Count 12.2 x10^3/uL (4.0-11.0) Red Blood Count 2.62 x10^6/uL (4.30-5.70) Hemoglobin 6.7 g/dL (13.0-17.5) Hematocrit 22.2 % (39.0-53.0) Mean Corpuscular Volume 85 fL (79-100) Mean Corpuscular Hemoglobin 26 pg (25-35) Mean Corpuscular Hemoglobin Concent 30 g/dL (31-37) Red Cell Distribution Width 16.9 % (11.5-14.5) Platelet Count 314 x10^3/uL (140-400) Neutrophils (%) (Auto) 92 % (31-73) Lymphocytes (%) (Auto) 2 % (24-48) Monocytes (%) (Auto) 5 % (0-9) Eosinophils (%) (Auto) 0 % (0-3) Basophils (%) (Auto) 1 % (0-3) Neutrophils # (Auto) 11.3 x10^3uL (1.8-7.7) Lymphocytes # (Auto) 0.3 x10^3/uL (1.0-4.8) Monocytes # (Auto) 0.6 x10^3/uL (0.0-1.1) Eosinophils # (Auto) 0.0 x10^3/uL (0.0-0.7) Basophils # (Auto) 0.1 x10^3/uL (0.0-0.2) Prothrombin Time 51.5 SEC (11.7-14.0) Prothromb Time International Ratio 5.6 (0.8-1.1) Review of Systems Review of Systems He complains of shortness of breath and weakness Assessment and Plan Assessmemt and Plan Problems Medical Problems: (1) Pneumonia Status: Acute (2) Sepsis Status: Acute (3) Tachycardia Status: Acute New anemia with possible GI bleed? Over anticoagulation noted today with INR 5.7 Pneumonia with right perihilar infiltrate. Leukocytosis Chronic Crawley with pyuria MRSA bacteremia with sepsis from 05/18. D/c Dapto till 07/02 Acute on chronic CHF MRSA and Enterobacter ( R Augmentin/cefuroxime) infection PSA ( R quinolones & I imipenem) infection Bioprosthetic aortic valve A- fib Anticoagulation on warfarin Diabetes Type II Seizure disorder, on Keppra Noncompliance New anemia with possible GI bleed Over anticoagulation noted today with INR 5.7 Plan Plan of Care ICU monitoring Transfuse 1 unit of packed red blood cells 5 mg of vitamin K Transfused 1 units of fresh frozen plasma Continue vanc and Zosyn for now Monitor renal function closely Wound care PICC Change Crawley Frequent labs Full code Home meds Prognosis guarded ID and pulmonary following Total time 32 minutes Comment Review of Relevant I have reviewed the following items navi (where applicable) has been applied. Labs Laboratory Tests Test 06/15/18 08:15 06/15/18 08:20 06/15/18 10:30 06/16/18 07:54 Urine Collection Type U cath Urine Color Yellow Urine Clarity Cloudy Urine pH 5.5 Urine Specific Blanco 1.025 Urine Protein 100 mg/dL (NEG-TRACE) Urine Glucose (UA) Negative mg/dL (NEG) Urine Ketones (Stick) Negative mg/dL (NEG) Urine Blood Moderate (NEG) Urine Nitrite Negative (NEG) Urine Bilirubin Small (NEG) Urine Urobilinogen Dipstick 1.0 mg/dL (0.2 mg/dL) Urine Leukocyte Esterase Moderate (NEG) Urine RBC 11-20 /HPF (0-2) Urine WBC >40 /HPF (0-4) Urine Bacteria Many /HPF (0-FEW) Urine Mucus Marked /LPF White Blood Count 18.5 x10^3/uL (4.0-11.0) Red Blood Count 2.90 x10^6/uL (4.30-5.70) Hemoglobin 7.5 g/dL (13.0-17.5) Hematocrit 24.1 % (39.0-53.0) Mean Corpuscular Volume 83 fL (79-100) Mean Corpuscular Hemoglobin 26 pg (25-35) Mean Corpuscular Hemoglobin Concent 31 g/dL (31-37) Red Cell Distribution Width 16.8 % (11.5-14.5) Platelet Count 404 x10^3/uL (140-400) Neutrophils (%) (Auto) 86 % (31-73) Lymphocytes (%) (Auto) 4 % (24-48) Monocytes (%) (Auto) 10 % (0-9) Eosinophils (%) (Auto) 1 % (0-3) Basophils (%) (Auto) 0 % (0-3) Neutrophils # (Auto) 15.8 x10^3uL (1.8-7.7) Lymphocytes # (Auto) 0.6 x10^3/uL (1.0-4.8) Monocytes # (Auto) 1.8 x10^3/uL (0.0-1.1) Eosinophils # (Auto) 0.2 x10^3/uL (0.0-0.7) Basophils # (Auto) 0.0 x10^3/uL (0.0-0.2) Segmented Neutrophils % 86 % (35-66) Band Neutrophils % 2 % (0-9) Lymphocytes % 5 % (24-48) Monocytes % 6 % (0-10) Myelocytes % 1 % (0-0) Platelet Estimate Adequate (ADEQUATE) Polychromasia Slight Anisocytosis Slight Ovalocytes Few Erythrocyte Sedimentation Rate 130 (0-15) Prothrombin Time 41.3 SEC (11.7-14.0) Prothromb Time International Ratio 4.3 (0.8-1.1) Sodium Level 137 mmol/L (136-145) Potassium Level 3.9 mmol/L (3.5-5.1) Chloride Level 100 mmol/L (98-107) Carbon Dioxide Level 27 mmol/L (21-32) Anion Gap 10 (6-14) Blood Urea Nitrogen 15 mg/dL (8-26) Creatinine 1.0 mg/dL (0.7-1.3) Estimated GFR (Cockcroft-Gault) 72.6 Glucose Level 170 mg/dL (70-99) Lactic Acid Level 1.1 mmol/L (0.4-2.0) Calcium Level 8.7 mg/dL (8.5-10.1) Total Bilirubin 0.5 mg/dL (0.2-1.0) Direct Bilirubin 0.3 mg/dL (0.0-0.2) Aspartate Amino Transf (AST/SGOT) 23 U/L (15-37) Alanine Aminotransferase (ALT/SGPT) 24 U/L (16-63) Alkaline Phosphatase 87 U/L (46-116) Troponin I Quantitative 0.031 ng/mL (0.000-0.055) PO-Vrs-L-Type Natriuretic Peptide 56605 pg/mL (0-449) Total Protein 6.5 g/dL (6.4-8.2) Albumin 2.1 g/dL (3.4-5.0) Lipase 35 U/L (73-393) Nasal Screen MRSA (PCR) Negative (Negative) Glucose (Fingerstick) 183 mg/dL (70-99) Test 06/16/18 08:30 06/16/18 09:30 06/16/18 11:22 Sodium Level 141 mmol/L (136-145) Potassium Level 4.4 mmol/L (3.5-5.1) Chloride Level 104 mmol/L (98-107) Carbon Dioxide Level 27 mmol/L (21-32) Anion Gap 10 (6-14) Blood Urea Nitrogen 17 mg/dL (8-26) Creatinine 1.0 mg/dL (0.7-1.3) Estimated GFR (Cockcroft-Gault) 72.6 Glucose Level 197 mg/dL (70-99) Calcium Level 8.3 mg/dL (8.5-10.1) Creatine Kinase 34 U/L (39-308) Procalcitonin 0.36 ng/mL (0.00-0.10) White Blood Count 12.2 x10^3/uL (4.0-11.0) Red Blood Count 2.62 x10^6/uL (4.30-5.70) Hemoglobin 6.7 g/dL (13.0-17.5) Hematocrit 22.2 % (39.0-53.0) Mean Corpuscular Volume 85 fL (79-100) Mean Corpuscular Hemoglobin 26 pg (25-35) Mean Corpuscular Hemoglobin Concent 30 g/dL (31-37) Red Cell Distribution Width 16.9 % (11.5-14.5) Platelet Count 314 x10^3/uL (140-400) Neutrophils (%) (Auto) 92 % (31-73) Lymphocytes (%) (Auto) 2 % (24-48) Monocytes (%) (Auto) 5 % (0-9) Eosinophils (%) (Auto) 0 % (0-3) Basophils (%) (Auto) 1 % (0-3) Neutrophils # (Auto) 11.3 x10^3uL (1.8-7.7) Lymphocytes # (Auto) 0.3 x10^3/uL (1.0-4.8) Monocytes # (Auto) 0.6 x10^3/uL (0.0-1.1) Eosinophils # (Auto) 0.0 x10^3/uL (0.0-0.7) Basophils # (Auto) 0.1 x10^3/uL (0.0-0.2) Prothrombin Time 51.5 SEC (11.7-14.0) Prothromb Time International Ratio 5.6 (0.8-1.1) Glucose (Fingerstick) 224 mg/dL (70-99) Laboratory Tests Test 06/16/18 07:54 06/16/18 08:30 06/16/18 09:30 06/16/18 11:22 Glucose (Fingerstick) 183 mg/dL (70-99) 224 mg/dL (70-99) Sodium Level 141 mmol/L (136-145) Potassium Level 4.4 mmol/L (3.5-5.1) Chloride Level 104 mmol/L (98-107) Carbon Dioxide Level 27 mmol/L (21-32) Anion Gap 10 (6-14) Blood Urea Nitrogen 17 mg/dL (8-26) Creatinine 1.0 mg/dL (0.7-1.3) Estimated GFR (Cockcroft-Gault) 72.6 Glucose Level 197 mg/dL (70-99) Calcium Level 8.3 mg/dL (8.5-10.1) Creatine Kinase 34 U/L (39-308) Procalcitonin 0.36 ng/mL (0.00-0.10) White Blood Count 12.2 x10^3/uL (4.0-11.0) Red Blood Count 2.62 x10^6/uL (4.30-5.70) Hemoglobin 6.7 g/dL (13.0-17.5) Hematocrit 22.2 % (39.0-53.0) Mean Corpuscular Volume 85 fL (79-100) Mean Corpuscular Hemoglobin 26 pg (25-35) Mean Corpuscular Hemoglobin Concent 30 g/dL (31-37) Red Cell Distribution Width 16.9 % (11.5-14.5) Platelet Count 314 x10^3/uL (140-400) Neutrophils (%) (Auto) 92 % (31-73) Lymphocytes (%) (Auto) 2 % (24-48) Monocytes (%) (Auto) 5 % (0-9) Eosinophils (%) (Auto) 0 % (0-3) Basophils (%) (Auto) 1 % (0-3) Neutrophils # (Auto) 11.3 x10^3uL (1.8-7.7) Lymphocytes # (Auto) 0.3 x10^3/uL (1.0-4.8) Monocytes # (Auto) 0.6 x10^3/uL (0.0-1.1) Eosinophils # (Auto) 0.0 x10^3/uL (0.0-0.7) Basophils # (Auto) 0.1 x10^3/uL (0.0-0.2) Prothrombin Time 51.5 SEC (11.7-14.0) Prothromb Time International Ratio 5.6 (0.8-1.1) Microbiology 06/15/18 Blood Culture - Preliminary, Resulted NO GROWTH AFTER 1 DAY Medications Current Medications Albuterol/ Ipratropium (Duoneb) 3 ml 1X ONCE NEB Last administered on 06/15/18at 08:24; Start 06/15/18 at 08:15; Stop 06/15/18 at 08:16; Status DC Methylprednisolone Sodium Succinate (SOLU-Medrol 125MG VIAL) 125 mg 1X ONCE IV Last administered on 06/15/18at 08:46; Start 06/15/18 at 09:00; Stop 06/15/18 at 09:01; Status DC Vancomycin HCl (Vanco Per Pharmacy) 1 each PRN DAILY PRN MC SEE COMMENTS Last administered on 06/15/18at 14:59; Start 06/15/18 at 08:45 Piperacillin Sod/ Tazobactam Sod (Zosyn Per Pharmacy) 1 each PRN DAILY PRN MC SEE COMMENTS; Start 06/15/18 at 08:45 Sodium Chloride 500 ml @ 500 mls/hr 1X ONCE IV Last administered on 06/15/18at 08:47; Start 06/15/18 at 08:45; Stop 06/15/18 at 09:44; Status DC Vancomycin HCl 2 gm/Sodium Chloride 500 ml @ 250 mls/hr 1X ONCE IV Last administered on 06/15/18at 09:22; Start 06/15/18 at 09:15; Stop 06/15/18 at 11:14; Status DC Piperacillin Sod/ Tazobactam Sod 4.5 gm/Sodium Chloride 100 ml @ 200 mls/hr 1X ONCE IV Last administered on 06/15/18at 08:47; Start 06/15/18 at 09:15; Stop 06/15/18 at 09:44; Status DC Ondansetron HCl (Zofran) 4 mg PRN Q8HRS PRN IV NAUSEA/VOMITING; Start 06/15/18 at 08:45; Stop 06/16/18 at 08:44; Status DC Morphine Sulfate (Morphine Sulfate) 2 mg PRN Q2HR PRN IV PAIN; Start 06/15/18 at 08:45; Stop 06/16/18 at 08:44; Status DC Sodium Chloride 1,000 ml @ 100 mls/hr Q10H IV Last administered on 06/15/18at 09:17; Start 06/15/18 at 08:35; Stop 06/15/18 at 12:34; Status DC Albuterol/ Ipratropium (Duoneb) 3 ml RTQID NEB Last administered on 06/16/18at 11:33; Start 06/15/18 at 08:45 Acetaminophen (Tylenol) 500 mg PRN Q6HRS PRN PO MILD PAIN / TEMP; Start 06/15/18 at 08:45; Stop 06/15/18 at 14:08; Status DC Ondansetron HCl (Zofran) 4 mg PRN Q6HRS PRN IV NAUSEA/VOMITING; Start 06/15/18 at 08:45 Aspirin (Ecotrin) 81 mg DAILY PO Last administered on 06/15/18at 09:00; Start 06/15/18 at 09:00; Stop 06/16/18 at 08:34; Status DC Digoxin (Lanoxin) 125 mcg DAILY PO Last administered on 06/16/18at 08:23; Start 06/15/18 at 09:00 Furosemide (Lasix) 40 mg DAILY PO Last administered on 06/16/18 08:23; Start 06/15/18 at 09:00 Gabapentin (Neurontin) 300 mg DAILY PO Last administered on 06/16/18 08:22; Start 06/15/18 at 09:00 Lisinopril (Prinivil) 20 mg DAILY PO Last administered on 06/16/18 08:22; Start 06/15/18 at 09:00 Metoprolol Tartrate (Lopressor) 50 mg BID PO Last administered on 06/16/18 08 :23; Start 06/15/18 at 09:00 Acetaminophen (Tylenol) 500 mg PRN Q6HRS PRN PO MILD PAIN / TEMP; Start 06/15/18 at 09:30 Atorvastatin Calcium (Lipitor) 80 mg QHS PO Last administered on 06/15/18 20:43; Start 06/15/18 at 21:00 Hydralazine HCl (Apresoline) 10 mg TID PO Last administered on 06/16/18 08:24; Start 06/15/18 at 10:00 Non-Formulary Medication (Insulin Aspart (Novolog)) 10 unit DAILYAC SQ ; Start 06/16/18 at 07:30; Status UNV Levetiracetam (Keppra) 1,250 mg BID PO Last administered on 06/16/18 08:22; Start 06/15/18 at 09:30 Multivitamins (Thera M Plus) 1 tab DAILY PO Last administered on 06/16/18 08:21; Start 06/15/18 at 09:30 Risperidone (RisperDAL) 1 mg QHS PO Last administered on 06/15/18 20:43; Start 06/15/18 at 09:45 Non-Formulary Medication (Rosuvastatin Calcium (Crestor)) 40 mg DAILY PO ; Start 06/15/18 at 09:00; Status UNV Zonisamide (Zonegran) 400 mg DAILY PO Last administered on 06/16/18 08:22; Start 06/15/18 at 09:30 Insulin Human Lispro (HumaLOG) 0-9 UNITS TIDWMEALS SQ Last administered on 06/16/18 08:25; Start 06/15/18 at 09:20 Dextrose (Dextrose 50%-Water Syringe) 12.5 gm PRN Q15MIN PRN IV SEE COMMENTS; Start 06/15/18 at 08:45 Warfarin Sodium (Coumadin Per Pharmacy) 1 each PRN DAILY PRN MC SEE COMMENTS Last administered on 06/15/18at 10:02; Start 06/15/18 at 08:45 Warfarin Sodium (Coumadin - No Dose Today) 1 each 1X WARF ONCE MC ; Start 06/15/18 at 16:00; Stop 06/15/18 at 16:01; Status DC Piperacillin Sod/ Tazobactam Sod 4.5 gm/Sodium Chloride 100 ml @ 200 mls/hr Q6HRS IV Last administered on 06/16/18at 06:07; Start 06/15/18 at 17:00 Vancomycin HCl 1.5 gm/Sodium Chloride 500 ml @ 250 mls/hr Q18H IV Last administered on 06/16/18at 03:53; Start 06/16/18 at 03:00 Vancomycin HCl (Vancomycin Trough Level) 1 each 1X ONCE MC ; Start 06/17/18 at 14:30; Stop 06/17/18 at 14:31 Aspirin (Ecotrin) 81 mg DAILY PO Last administered on 06/16/18at 09:07; Start 06/16/18 at 09:00 Phytonadione (Mephyton Oral Soln) 5 mg 1X ONCE PO Last administered on 06/16/18at 11:02; Start 06/16/18 at 11:00; Stop 06/16/18 at 11:01; Status DC Active Scripts Active Digoxin 125 Mcg Tablet 125 Mcg PO DAILY Furosemide 40 Mg Tablet 40 Mg PO DAILY Metoprolol Tartrate 50 Mg Tablet 50 Mg PO BID [Warfarin Sodium] 1 EACH Each 1 Each MC PRN DAILY PRN Lisinopril 20 Mg Tablet 20 Mg PO DAILY Duoneb 0.5-3(2.5) Mg/3 Ml (Albuterol/Ipratropium) 3 Ml Ampul.neb 3 Ml NEB Q4HRS W/A 30 Days Hydralazine Hcl 10 Mg Tablet 10 Mg PO TID Reported Zonisamide 100 Mg Capsule 400 Mg PO DAILY Percocet 5-325 Mg Tablet (Oxycodone/Acetaminophen) 1 Each Tablet 1 Tab PO PRN Q4HRS PRN Multivitamins (Multivitamin) 1 Each Tablet 1 Tab PO DAILY Levetiracetam 250 Mg Tablet 1,250 Mg PO BID Novolin N (Nph, Human Insulin Isophane) 100 Unit/1 Ml Vial Unknown Dose SQ Atorvastatin Calcium 80 Mg Tablet 1 Tab PO DAILY Acetaminophen 500 Mg Tablet 1 Tab PO PRN Q6HRS PRN Albuterol Sulfate Hfa Inhaler (Albuterol Sulfate) 8.5 Gm Hfa.aer.ad 2 Puff IH PRN Q6HRS PRN Aspirin Ec (Aspirin) 325 Mg Tablet.dr 81 Mg PO DAILY Crestor (Rosuvastatin Calcium) 40 Mg Tablet 40 Mg PO DAILY Warfarin Sodium 5 Mg Tablet 6 Mg PO DAILY Warfarin Sodium 2.5 Mg Tablet 2.5 Mg PO 3X/WEEK monday,monday, Gabapentin (Gabapentin) 300 Mg Capsule 300 Mg PO DAILY Risperidone 1 Mg Tablet 1 Mg PO HS Novolog (Insulin Aspart) 100 Unit/1 Ml Vial 10 Unit SQ DAILYAC Oxycodone-Acetaminophen 10-325 (Oxycodone Hcl/Acetaminophen) 1 Each Tablet 1 Each PO PRN Q6HRS Potassium 99 Mg Tablet 20 Meq PO DAILY Prednisone (Prednisone) 10 Mg Tablet 10 Mg PO DAILY Metformin Hcl 500 Mg Tablet 1,000 Mg PO BIDBFRMEAL Vitals/I & O Vital Sign - Last 24 Hours 06/15/18 06/15/18 06/15/18 06/15/18 11:54 11:58 12:23 13:30 Temp 99.8 98.0 99.8 98.0 Pulse 103 130 127 Resp B/P (MAP) 106/73 106/58 (74) 126/79 (95) Pulse Ox 93 96 96 O2 Delivery Nasal Cannula Nasal Cannula Nasal Cannula O2 Flow Rate 2.0 2.0 2.0 06/15/18 06/15/18 06/15/18 06/15/18 13:37 16:30 16:44 16:54 Pulse 83 Resp 22 B/P (MAP) 99/67 (78) Pulse Ox 96 94 O2 Delivery Nasal Cannula Nasal Cannula Nasal Cannula Nasal Cannula O2 Flow Rate 2.0 2.0 2.0 2.0 06/15/18 06/15/18 06/15/18 06/15/18 17:00 19:00 19:54 20:00 Temp 97.8 97.8 Pulse 83 84 90 Resp 22 22 B/P (MAP) 116/61 (79) 120/63 (82) 139/72 (94) Pulse Ox 96 96 96 96 O2 Delivery Nasal Cannula Nasal Cannula Nasal Cannula Nasal Cannula O2 Flow Rate 2.0 2.0 3.0 2.0 06/15/18 06/15/18 06/15/18 06/15/18 20:00 20:43 20:45 21:00 Pulse 84 84 84 Resp 22 B/P (MAP) 139/72 139/72 118/64 (82) Pulse Ox 96 O2 Delivery Nasal Cannula Nasal Cannula O2 Flow Rate 2.0 2.0 06/15/18 06/15/18 06/16/18 06/16/18 22:00 23:00 00:00 00:01 Temp 98.0 98.0 Pulse 114 62 60 Resp 22 8 14 B/P (MAP) 137/70 (92) 108/53 (71) 109/55 (73) Pulse Ox 96 96 97 O2 Delivery Nasal Cannula Nasal Cannula Nasal Cannula Nasal Cannula O2 Flow Rate 2.0 2.0 2.0 2.0 06/16/18 06/16/18 06/16/18 06/16/18 01:00 02:00 03:00 04:00 Temp 98.1 98.1 Pulse 60 60 62 62 Resp 12 12 12 14 B/P (MAP) 107/54 (71) 114/53 (73) 107/54 (71) 115/55 (75) Pulse Ox 96 96 97 97 O2 Delivery Nasal Cannula Nasal Cannula Nasal Cannula Nasal Cannula O2 Flow Rate 2.0 2.0 2.0 2.0 06/16/18 06/16/18 06/16/18 06/16/18 04:00 05:00 06:00 07:00 Temp 97.6 97.6 Pulse 60 63 83 Resp 12 12 B/P (MAP) 114/57 (76) 114/56 (75) 138/70 (92) Pulse Ox 96 97 97 O2 Delivery Nasal Cannula Nasal Cannula Nasal Cannula Nasal Cannula O2 Flow Rate 2.0 2.0 2.0 2.0 06/16/18 06/16/18 06/16/18 06/16/18 07:35 07:41 08:00 08:22 Temp 97.6 97.6 Pulse 85 Resp 12 B/P (MAP) 128/66 (86) 128/66 Pulse Ox 93 95 O2 Delivery Nasal Cannula Nasal Cannula Nasal Cannula O2 Flow Rate 2.0 3.0 2.0 06/16/18 06/16/18 06/16/18 06/16/18 08:23 08:23 08:24 09:10 Pulse 85 70 Resp 12 B/P (MAP) 128/66 128/66 128/66 109/60 (76) Pulse Ox 94 O2 Delivery Nasal Cannula O2 Flow Rate 2.0 06/16/18 06/16/18 06/16/18 10:00 11:05 11:33 Pulse 65 64 Resp 18 18 B/P (MAP) 115/48 (70) 104/54 (71) Pulse Ox 97 93 91 O2 Delivery Nasal Cannula Nasal Cannula Nasal Cannula O2 Flow Rate 2.0 2.0 3.0 Intake and Output 06/15/18 06/15/18 06/16/18 15:00 23:00 07:00 Intake Total 2200 ml 100 ml Output Total 350 ml 210 ml 340 ml Balance 1850 ml -110 ml -340 ml OBI SOLANO III DO June 16, 2018 11:46
--- NOTE | 2018-06-16 12:43 | RAD ---
Left upper extremity venous duplex study 06/16/2018 CLINICAL HISTORY: Left arm swelling. TECHNIQUE: Using a combination of real-time ultrasound imaging and color-flow and pulse Doppler imaging techniques, duplex evaluation of the major venous structures of the left upper extremity to include the left internal jugular and left subclavian veins was performed. Multiple images were obtained. FINDINGS: There is no sonographic evidence of venous thrombosis involving the visualized venous structures of the left upper extremity. IMPRESSION: Negative study. Electronically signed by: Carson Liao MD (06/16/2018 12:40 PM) [facility]
[2018-06-16] MEDS: ATORVASTATIN CALCIUM 40 MG TABLET. PO SCH (22:50)
[2018-06-16] MEDS: risperiDONE 1 MG TABLET. PO SCH (22:54)
[2018-06-17] VITALS (15 sets, daily range): BP systolic 90–156; BP diastolic 27–78
[2018-06-17 00:03] LABS: HEMATOCRIT 24.6 % (39.0-53.0); HEMOGLOBIN 7.7 g/dL (13.0-17.5); RED BLOOD COUNT 2.91 x10^6/uL (4.30-5.70); RED CELL DISTRIBUTION WIDTH 16.7 % (11.5-14.5)
[2018-06-17] MEDS: PIPERACILLIN/TAZOBACTAM 4.5 GM in IV NORMAL SALINE 100ML 100 ML IV SCH ×4 (00:12→17:28)
--- NOTE | 2018-06-17 02:46 | CONS ---
DATE OF CONSULTATION: 06/16/2018 REFERRING PHYSICIAN: Dr. Rosa. REASON FOR CONSULTATION: HCAP. HISTORY OF PRESENT ILLNESS: This patient is a 78-year-old male with a history of severe peripheral arterial disease, status post previous bilateral lower extremity stents and previous toe amputations. He was recently admitted last month for gangrene of right foot for which he underwent a right below-knee amputation. In addition, he had developed an infected ulcer over the left lateral malleolus for which he had I and D. Cultures grew MRSA and Enterobacter for which he completed a course of meropenem. His blood cultures from 05/18 grew MRSA. A transesophageal echocardiogram showed no evidence of vegetation. He was eventually discharged home on daptomycin until 07/02/2018 to complete 6 weeks. The patient says he was doing well when he felt sick and short of breath prompting ER visit. He was hypoxic requiring increased supplemental oxygen. He had elevated white blood cell count of 18,500 and a lactic acid of 1.1. Chest x-ray showed right perihilar infiltrate. He has since been admitted and dosed with vancomycin and Zosyn. ID has been asked to consult for further evaluation and antibiotic management. The patient is currently in the intensive care unit. He says he is feeling better and less short of air. He says he normally wears oxygen at home as needed. He has a little bit of cough without complaints of chest discomfort, headache or nasal/sinus congestion. He denies fevers, chills or body aches. He says about a week ago, he got his left hand caught in the bed rail at home and since has been swollen. He denies pain. He had a bowel movement earlier. He denies nausea, vomiting or diarrhea. He says his appetite is pretty good. He has a chronic Crawley that was last changed on 05/27. PAST MEDICAL HISTORY: Recent history of MRSA bacteremia, history of infected ulcer, left ankle with growth of MRSA and Enterobacter (resistant to Augmentin and cefuroxime). Bioprosthetic valve. Atrial fibrillation, anticoagulation therapy with warfarin. Severe peripheral arterial disease, diabetes mellitus type 2, obesity, chronic Crawley for history of urinary retention. History of beta hemolytic strep B bacteremia in 2017. History of Pseudomonas aeruginosa UTI (resistant to Cipro, levofloxacin and intermediate susceptibility to imipenem). Coronary artery disease, hyperlipidemia, hypertension, CVA, ischemic cardiomyopathy, seizure disorder, cataracts, myocardial infarction, COPD and depression. 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 I and D of left ankle ulcer on 05/21/2018. Multiple toe amputations. Pacemaker placement and removal. Bioprosthetic valve. Bilateral lower extremity arterial stents. Pneumonectomy and appendectomy. Left hip replacement. SOCIAL HISTORY: The patient is . He is cared for at home. He is nonambulatory. He was previously on hospice. He is a former smoker. FAMILY HISTORY: Positive for throat cancer, hypercholesterolemia and coronary artery disease. ALLERGIES: FENTANYL. MEDICATIONS: Vancomycin, Zosyn, warfarin and Keppra. REVIEW OF SYSTEMS: Per HPI, otherwise all other review of systems are negative. PHYSICAL EXAMINATION: VITAL SIGNS: Temperature 97.6, blood pressure 128/66, heart rate 85, respiratory rate 12, pulse oximetry 95% on 2 liters oxygen and BMI 31. GENERAL: The patient is propped up in bed, alert, eating breakfast and watching TV. HEENT: Pupils equally round and reactive. Normal conjunctivae. Oral cavity: Pharynx pink and moist. No thrush. NECK: Supple. LUNGS: Soft wheezes, nonlabored. HEART: S1 and S2 irregular. ABDOMEN: Obese, soft and nontender with bowel sounds present. GENITOURINARY: Indwelling Crawley in place (05/27). EXTREMITIES: Left hand is swollen. No redness or warmth or limitation of range of motion. Left lower extremity 2+ edema. No cyanosis. Right BKA covered/sleeve. SKIN: Warm without generalized rash. Multiple tattoos. A small superficial ulcer, left lateral malleolus area without signs of infection. NEUROLOGIC: Alert and responding appropriately. Somewhat of a poor historian. RUE-PICC (POA) without signs of any complications. LABORATORY DATA: From 06/15/2018, WBC 18.5, hemoglobin 7.5 and platelets 404,000. Sed rate 130. Creatinine 1.0 and BUN 15. Electrolytes are unremarkable. Glucose 170, total bilirubin 0.5, AST 23 and ALT 24. Troponin is 0.031. BNP 16,137. Albumin 2.1. Lipase 35. Urinalysis shows wbc's greater than 40, leukocyte esterase moderate and many bacteria. Urine and blood cultures are pending. Chest x-ray showed right perihilar infiltrate. IMPRESSION: 1. Right perihilar infiltrate. 2. Leukocytosis. 3. Chronic Crawley with pyuria, present on admission. Urine culture is pending. 4. History of methicillin-resistant Staphylococcus aureus bacteremia with sepsis from 05/18/2018. He was discharged on daptomycin until 07/02/2018. 5. Acute on chronic congestive heart failure. 6. History of MRSA and Enterobacter (resistant to Augmentin/cefuroxime) infection. 7. History of pseudomonas (resistant to quinolones and intermediate imipenem) infection. 8. Bioprosthetic aortic valve. 9. Atrial fibrillation, on anticoagulation therapy with warfarin. 10. Seizure disorder. 11. Diabetes mellitus type 2. PLAN: The patient is clinically improving. Continue the vancomycin and Zosyn for now. Monitor renal function closely. Repeat labs and includes a CPK level. He was previously on daptomycin at home for recent history of methicillin-resistant Staphylococcus aureus bacteremia. He will need to continue treatment until 07/02/2018. Wound care team has been consulted. PICC maintenance care. Change Crawley. Thank you, Dr. Rosa, for asking us to participate in this patient's care. Should you have further questions or concerns, please call. DIOGENES HASTINGS MD DR: IZABELA/arely JOB#: [id number] / [id number] BENJAMIN
[2018-06-17] MEDS: oxyCODONE/APAP 5/325 1 TAB TABLET PO PRN (03:26)
[2018-06-17 06:51] LABS: PROTHROMBIN TIME PATIENT 21.1 SEC (11.7-14.0)
[2018-06-17] MEDS: DIGOXIN 125 MCG TABLET. PO SCH (08:44)
[2018-06-17] MEDS: ASPIRIN ENTERIC COATED 81 MG TABLET.DR. PO SCH (08:44)
[2018-06-17] MEDS: FUROSEMIDE 40 MG TABLET. PO SCH (08:44)
[2018-06-17] MEDS: GABAPENTIN 300 MG CAPSULE. PO SCH (08:44)
[2018-06-17] MEDS: ZONISAMIDE 100 MG CAPSULE. PO SCH (08:44)
[2018-06-17] MEDS: MULTIVITAMIN with MINERAL TABLET. PO SCH (08:44)
[2018-06-17] MEDS: METOPROLOL TART IMMED RELEASE 50 MG TABLET. PO SCH ×2 (08:45→21:28)
[2018-06-17] MEDS: levETIRAcetam 250 MG TABLET PO SCH ×2 (08:45→21:27)
[2018-06-17] MEDS: hydrALAZINE 10 MG TABLET PO SCH ×3 (08:45→21:28)
[2018-06-17] MEDS: LISINOPRIL 20 MG TABLET PO SCH (08:45)
[2018-06-17] MEDS: INSULIN LISPRO 300 UNITS/3 ML INSULN.PEN. SQ SCH ×3 (08:47→17:43)
--- NOTE | 2018-06-17 09:07 | NUR ---
Pharmacy Warfarin Dosing Note S:Pharmacy consulted to assist with anticoagulation therapy started with target INR: 2 -3 O:VICKI BRAUN is a 78 year old M with Atrial Fibrillation Bioprosthetic Valve LABS: Last INR: 1.9 Last HGB: 7.5 Last HCT: 24.1 Last PLT: 404 Last dose of Hold given on 06/16/18 at Previous Regimen: Vitamin K given: Y Drug Interaction Changes: Ongoing Drug Interactions: A:INR of 1.9 is below desired range. Target range for this patient is: 2 -3 P: Warfarin dose: 3 mg Today at 1600 Bridge Therapy: Next INR due IN AM Pharmacy anticoagulation service will continue to follow. ANTHONY RODRIGUES [facility], 06/17/18 [id number]
[2018-06-17] MEDS: IPRATRPIUM/ALBUTEROL 0.5/2.5MG 3 ML NEBU. NEB SCH ×4 (09:50→20:26)
--- NOTE | 2018-06-17 10:43 | PDOC ---
Infectious Disease Note Subjective Subjective Feeling better + cough 2L O2 No F/C/S/N/V ROS ROS per HPI Vital Sign Vital Signs Vital Signs Date Time Temp Pulse Resp B/P (MAP) Pulse Ox O2 Delivery O2 Flow Rate FiO2 06/17/18 10:00 98.0 65 18 96 Nasal Cannula 3.0 98.0 Physical Exam PHYSICAL EXAM GENERAL: Propped up in bed, alert, eating breakfast and watching TV. HEENT: Pupils equally round and reactive. Normal conjunctivae. Oral oralpharynx pink and moist. No thrush. NECK: Supple. LUNGS: Improved aeration HEART: S1 and S2 irregular. ABDOMEN: Obese, soft and nontender with bowel sounds present. GENITOURINARY: Indwelling Crawley out. EXTREMITIES: Left hand is swollen. No redness, warmth or limited range of motion. Left lower extremity 2+ edema. No cyanosis. Right BKA covered/sleeve SKIN: Warm without generalized rash. Multiple tattoos. A small superficial ulcer, left lateral malleolus area without signs of infection. NEUROLOGIC: Alert and responding appropriately. Poor historian. RUE-PICC (POA) without signs of any complications. Labs Lab Laboratory Tests Test 06/16/18 11:22 06/16/18 16:55 06/16/18 21:48 06/16/18 23:50 Glucose (Fingerstick) 224 mg/dL (70-99) 164 mg/dL (70-99) 189 mg/dL (70-99) White Blood Count 14.0 x10^3/uL (4.0-11.0) Red Blood Count 2.91 x10^6/uL (4.30-5.70) Hemoglobin 7.7 g/dL (13.0-17.5) Hematocrit 24.6 % (39.0-53.0) Mean Corpuscular Volume 85 fL (79-100) Mean Corpuscular Hemoglobin 26 pg (25-35) Mean Corpuscular Hemoglobin Concent 31 g/dL (31-37) Red Cell Distribution Width 16.7 % (11.5-14.5) Platelet Count 320 x10^3/uL (140-400) Test 06/17/18 06:00 06/17/18 08:06 Prothrombin Time 21.1 SEC (11.7-14.0) Prothromb Time International Ratio 1.9 (0.8-1.1) Glucose (Fingerstick) 169 mg/dL (70-99) Micro 06/15/18 Blood Culture - Preliminary, Resulted NO GROWTH AFTER 1 DAY 06/15. URINE CULTURE RES 1 Preliminary Gram negative rods Greater than 100,000 colony forming units per mL Objective Assessment Right perihilar infiltrate. Leukocytosis, s/p PRBCs Chronic Crawley with pyuria, POA. Crawley now out, UC GNR h/o MRSA bacteremia with sepsis from 05/18. D/c Dapto till 07/02 -CRYSTAL done no vegetations 05/21; BC from 05/20 & onward were neg Acute on chronic CHF h/o MRSA and Enterobacter ( R Augmentin/cefuroxime) infection h/o PSA ( R quinolones & I imipenem) infection Bioprosthetic aortic valve A- fib, anticoagulation on warfarin Diabetes Type II Seizure disorder, on Keppra Anemia s/p PRBCs Plan Plan of Care Clinically improving, continue vanc and Zosyn for now Monitor renal function closely He was previously on Dapto at home for h/o MRSA bacteremia. He will need to continue treatment till July 02. CPK 34 Wound care team consulted PICC maintenance care Awaiting GNR ID/susceptibilities Repeat CBC in am D/w RN Patient seen and examined. Chart reviewed in detail. Case discussed with LIQUOR CLERK. Agree with above plan. GIO GASPAR APRN June 17, 2018 10:43 DIOGENES HASTINGS MD June 17, 2018 18:49
--- NOTE | 2018-06-17 11:50 | PDOC ---
PULMONARY PROGRESS NOTES Subjective UP IN CHAIR PT NOT MORE SOA FEEL BETTER Vitals Vital Signs Date Time Temp Pulse Resp B/P (MAP) Pulse Ox O2 Delivery O2 Flow Rate FiO2 06/17/18 11:00 97.9 65 17 132/48 (76) 98 Nasal Cannula 3.0 97.9 ROS: No Chest Pain, No Abdominal Pain, No Increase Cough General: Alert Lungs: Wheezing, Crackles Cardiovascular: S1 Abdomen: Soft, Non-tender, Other Extremities: Other (L ARM SWOLLEN) Labs Laboratory Tests Test 06/16/18 07:54 06/16/18 08:30 06/16/18 09:30 06/16/18 11:22 Glucose (Fingerstick) 183 mg/dL (70-99) 224 mg/dL (70-99) Sodium Level 141 mmol/L (136-145) Potassium Level 4.4 mmol/L (3.5-5.1) Chloride Level 104 mmol/L (98-107) Carbon Dioxide Level 27 mmol/L (21-32) Anion Gap 10 (6-14) Blood Urea Nitrogen 17 mg/dL (8-26) Creatinine 1.0 mg/dL (0.7-1.3) Estimated GFR (Cockcroft-Gault) 72.6 Glucose Level 197 mg/dL (70-99) Calcium Level 8.3 mg/dL (8.5-10.1) Creatine Kinase 34 U/L (39-308) Procalcitonin 0.36 ng/mL (0.00-0.10) White Blood Count 12.2 x10^3/uL (4.0-11.0) Red Blood Count 2.62 x10^6/uL (4.30-5.70) Hemoglobin 6.7 g/dL (13.0-17.5) Hematocrit 22.2 % (39.0-53.0) Mean Corpuscular Volume 85 fL (79-100) Mean Corpuscular Hemoglobin 26 pg (25-35) Mean Corpuscular Hemoglobin Concent 30 g/dL (31-37) Red Cell Distribution Width 16.9 % (11.5-14.5) Platelet Count 314 x10^3/uL (140-400) Neutrophils (%) (Auto) 92 % (31-73) Lymphocytes (%) (Auto) 2 % (24-48) Monocytes (%) (Auto) 5 % (0-9) Eosinophils (%) (Auto) 0 % (0-3) Basophils (%) (Auto) 1 % (0-3) Neutrophils # (Auto) 11.3 x10^3uL (1.8-7.7) Lymphocytes # (Auto) 0.3 x10^3/uL (1.0-4.8) Monocytes # (Auto) 0.6 x10^3/uL (0.0-1.1) Eosinophils # (Auto) 0.0 x10^3/uL (0.0-0.7) Basophils # (Auto) 0.1 x10^3/uL (0.0-0.2) Prothrombin Time 51.5 SEC (11.7-14.0) Prothromb Time International Ratio 5.6 (0.8-1.1) Test 06/16/18 16:55 06/16/18 21:48 06/16/18 23:50 06/17/18 06:00 Glucose (Fingerstick) 164 mg/dL (70-99) 189 mg/dL (70-99) White Blood Count 14.0 x10^3/uL (4.0-11.0) Red Blood Count 2.91 x10^6/uL (4.30-5.70) Hemoglobin 7.7 g/dL (13.0-17.5) Hematocrit 24.6 % (39.0-53.0) Mean Corpuscular Volume 85 fL (79-100) Mean Corpuscular Hemoglobin 26 pg (25-35) Mean Corpuscular Hemoglobin Concent 31 g/dL (31-37) Red Cell Distribution Width 16.7 % (11.5-14.5) Platelet Count 320 x10^3/uL (140-400) Prothrombin Time 21.1 SEC (11.7-14.0) Prothromb Time International Ratio 1.9 (0.8-1.1) Test 06/17/18 08:06 Glucose (Fingerstick) 169 mg/dL (70-99) Laboratory Tests Test 06/16/18 16:55 06/16/18 21:48 06/16/18 23:50 06/17/18 06:00 Glucose (Fingerstick) 164 mg/dL (70-99) 189 mg/dL (70-99) White Blood Count 14.0 x10^3/uL (4.0-11.0) Red Blood Count 2.91 x10^6/uL (4.30-5.70) Hemoglobin 7.7 g/dL (13.0-17.5) Hematocrit 24.6 % (39.0-53.0) Mean Corpuscular Volume 85 fL (79-100) Mean Corpuscular Hemoglobin 26 pg (25-35) Mean Corpuscular Hemoglobin Concent 31 g/dL (31-37) Red Cell Distribution Width 16.7 % (11.5-14.5) Platelet Count 320 x10^3/uL (140-400) Prothrombin Time 21.1 SEC (11.7-14.0) Prothromb Time International Ratio 1.9 (0.8-1.1) Test 06/17/18 08:06 Glucose (Fingerstick) 169 mg/dL (70-99) Medications Active Scripts Medications Dose Route/Sig Max Daily Dose Days Date Category Dose Instructions Digoxin 125 Mcg Tablet 125 Mcg PO DAILY 05/15/16 Rx Furosemide 40 Mg Tablet 40 Mg PO DAILY 05/15/16 Rx Zonisamide 100 Mg Capsule 400 Mg PO DAILY 05/11/16 Reported Percocet 5-325 Mg Tablet (Oxycodone/Acetaminophen) 1 Each Tablet 1 Tab PO PRN Q4HRS PRN 05/11/16 Reported Multivitamins (Multivitamin) 1 Each Tablet 1 Tab PO DAILY 05/11/16 Reported Levetiracetam 250 Mg Tablet 1,250 Mg PO BID 05/11/16 Reported Novolin N (Nph, Human Insulin Isophane) 100 Unit/1 Ml Vial Unknown Dose SQ 05/11/16 Reported Atorvastatin Calcium 80 Mg Tablet 1 Tab PO DAILY 05/11/16 Reported Acetaminophen 500 Mg Tablet 1 Tab PO PRN Q6HRS PRN 05/11/16 Reported Metoprolol Tartrate 50 Mg Tablet 50 Mg PO BID 02/24/16 Rx [Warfarin Sodium] 1 EACH Each 1 Each MC PRN DAILY PRN 02/24/16 Rx Lisinopril 20 Mg Tablet 20 Mg PO DAILY 02/24/16 Rx Duoneb 0.5-3(2.5) Mg/3 Ml (Albuterol/Ipratropium) 3 Ml Ampul.neb 3 Ml NEB Q4HRS W/A 30 02/24/16 Rx Hydralazine Hcl 10 Mg Tablet 10 Mg PO TID 02/24/16 Rx Albuterol Sulfate Hfa Inhaler (Albuterol Sulfate) 8.5 Gm Hfa.aer.ad 2 Puff IH PRN Q6HRS PRN 02/20/13 Reported Aspirin Ec (Aspirin) 325 Mg Tablet.dr 81 Mg PO DAILY 02/20/13 Reported Crestor (Rosuvastatin Calcium) 40 Mg Tablet 40 Mg PO DAILY 02/19/13 Reported Warfarin Sodium 5 Mg Tablet 6 Mg PO DAILY 02/19/13 Reported Warfarin Sodium 2.5 Mg Tablet 2.5 Mg PO 3X/WEEK 02/19/13 Reported monday,monday, Gabapentin (Gabapentin) 300 Mg Capsule 300 Mg PO DAILY 02/19/13 Reported Risperidone 1 Mg Tablet 1 Mg PO HS 02/19/13 Reported Novolog (Insulin Aspart) 100 Unit/1 Ml Vial 10 Unit SQ DAILYAC 02/19/13 Reported Oxycodone-Acetaminophen 10-325 (Oxycodone Hcl/Acetaminophen) 1 Each Tablet 1 Each PO PRN Q6HRS 02/19/13 Reported Potassium 99 Mg Tablet 20 Meq PO DAILY 02/19/13 Reported Prednisone (Prednisone) 10 Mg Tablet 10 Mg PO DAILY 02/19/13 Reported Metformin Hcl 500 Mg Tablet 1,000 Mg PO BIDBFRMEAL 02/19/13 Reported Impression . IMPRESSION: 1. Acute hypoxemic respiratory failure. 2. Rdsfj-hv-obypyfu diastolic heart failure. 3. Atrial fibrillation with rapid ventricular response. 4. Coronary artery disease, status post coronary artery bypass grafting. 5. Leukocytosis, suspect reactive. 6. 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 7. Peripheral vascular disease. 8. Functional quadriplegia. 9. Accelerated hypertension. 10. Severe protein malnutrition. 11 h/o MRSA bacteremia with sepsis from 05/18. D/c Dapto till 07/02 -CRYSTAL done no vegetations 05/21; BC from 05/20 & onward were neg (PER ID) 12 NEGATIVE LEFT UPPER EXT VENOUS Plan . ANTIBX PER ID OK TO TRANSFER PRN BIPAP U/S UPPER L EXT NEGATIVE DIURESE CONTROL HR DIETARY CONSULT COMPLEX DECISION MAKING CCT 30 MIN MANDEEP ZEPEDA MD June 17, 2018 11:50
--- NOTE | 2018-06-17 13:24 | PDOC ---
[employer] PROGRESS NOTE Chief Complaint Chief Complaint Pneumonia with right perihilar infiltrate. Leukocytosis Chronic Crawley with pyuria MRSA bacteremia with sepsis from 05/18. D/c Dapto till 07/02 Acute on chronic CHF MRSA and Enterobacter ( R Augmentin/cefuroxime) infection PSA ( R quinolones & I imipenem) infection Bioprosthetic aortic valve A- fib Anticoagulation on warfarin Diabetes Type II Seizure disorder, on Keppra Noncompliance New anemia with possible GI bleed s/p blood transfusion New INR 1.9 History of Present Illness History of Present Illness Patient seen and examined in the intensive care unit I discussed the case at length with his RN Patient's hematoma has dropped from 8 to 6.7 His INR is now high as well at 5.7 He denies dark stools or bloody stools or hemoptysis? Vitals Vitals Vital Signs Date Time Temp Pulse Resp B/P (MAP) Pulse Ox O2 Delivery O2 Flow Rate FiO2 06/17/18 12:00 Nasal Cannula 3.0 06/17/18 12:00 97.8 65 16 90/41 (57) 99 97.8 Physical Exam Physical Exam GENERAL: Propped up in bed, alert, eating breakfast and watching TV. HEENT: Pupils equally round and reactive. Normal conjunctivae. Oral oralpharynx pink and moist. No thrush. NECK: Supple. LUNGS: Improved aeration HEART: S1 and S2 irregular. ABDOMEN: Obese, soft and nontender with bowel sounds present. GENITOURINARY: Indwelling Crawley out. EXTREMITIES: Left hand is swollen. No redness, warmth or limited range of motion. Left lower extremity 2+ edema. No cyanosis. Right BKA covered/sleeve SKIN: Warm without generalized rash. Multiple tattoos. A small superficial ulcer, left lateral malleolus area without signs of infection. NEUROLOGIC: Alert and responding appropriately. Poor historian. RUE-PICC (POA) without signs of any complications. 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 taken down in the distant past) Extremities: Other (he is bilateral amputee with wound dressing he also has a stump protector on the right and a knee brace on the right) Labs LABS Laboratory Tests Test 06/16/18 16:55 06/16/18 21:48 06/16/18 23:50 06/17/18 06:00 Glucose (Fingerstick) 164 mg/dL (70-99) 189 mg/dL (70-99) White Blood Count 14.0 x10^3/uL (4.0-11.0) Red Blood Count 2.91 x10^6/uL (4.30-5.70) Hemoglobin 7.7 g/dL (13.0-17.5) Hematocrit 24.6 % (39.0-53.0) Mean Corpuscular Volume 85 fL (79-100) Mean Corpuscular Hemoglobin 26 pg (25-35) Mean Corpuscular Hemoglobin Concent 31 g/dL (31-37) Red Cell Distribution Width 16.7 % (11.5-14.5) Platelet Count 320 x10^3/uL (140-400) Prothrombin Time 21.1 SEC (11.7-14.0) Prothromb Time International Ratio 1.9 (0.8-1.1) Test 06/17/18 08:06 06/17/18 12:16 Glucose (Fingerstick) 169 mg/dL (70-99) 185 mg/dL (70-99) Review of Systems Review of Systems Patient denies YOUNG Patient denies dizziness Assessment and Plan Assessmemt and Plan Problems Medical Problems: (1) Pneumonia Status: Acute (2) Sepsis Status: Acute (3) Tachycardia Status: Acute Assessment: New anemia with possible GI bleed s/p 1 unit transfused blood Over anticoagulation resolved with INR 1.9 Pneumonia with right perihilar infiltrate. Leukocytosis Chronic Crawley with pyuria MRSA bacteremia with sepsis from 05/18. D/c Dapto till 07/02 Acute on chronic CHF MRSA and Enterobacter ( R Augmentin/cefuroxime) infection PSA ( R quinolones & I imipenem) infection Bioprosthetic aortic valve A- fib Anticoagulation on warfarin Diabetes Type II Seizure disorder, on Keppra Noncompliance Plan: Transfer to General Floor if specialists agree Continue vanc and Zosyn Monitor kidney function Labs Wound care PICC Full code Home meds ID and Pulmonary following Comment Review of Relevant I have reviewed the following items navi (where applicable) has been applied. Labs Laboratory Tests Test 06/16/18 07:54 06/16/18 08:30 06/16/18 09:30 06/16/18 11:22 Glucose (Fingerstick) 183 mg/dL (70-99) 224 mg/dL (70-99) Sodium Level 141 mmol/L (136-145) Potassium Level 4.4 mmol/L (3.5-5.1) Chloride Level 104 mmol/L (98-107) Carbon Dioxide Level 27 mmol/L (21-32) Anion Gap 10 (6-14) Blood Urea Nitrogen 17 mg/dL (8-26) Creatinine 1.0 mg/dL (0.7-1.3) Estimated GFR (Cockcroft-Gault) 72.6 Glucose Level 197 mg/dL (70-99) Calcium Level 8.3 mg/dL (8.5-10.1) Creatine Kinase 34 U/L (39-308) Procalcitonin 0.36 ng/mL (0.00-0.10) White Blood Count 12.2 x10^3/uL (4.0-11.0) Red Blood Count 2.62 x10^6/uL (4.30-5.70) Hemoglobin 6.7 g/dL (13.0-17.5) Hematocrit 22.2 % (39.0-53.0) Mean Corpuscular Volume 85 fL (79-100) Mean Corpuscular Hemoglobin 26 pg (25-35) Mean Corpuscular Hemoglobin Concent 30 g/dL (31-37) Red Cell Distribution Width 16.9 % (11.5-14.5) Platelet Count 314 x10^3/uL (140-400) Neutrophils (%) (Auto) 92 % (31-73) Lymphocytes (%) (Auto) 2 % (24-48) Monocytes (%) (Auto) 5 % (0-9) Eosinophils (%) (Auto) 0 % (0-3) Basophils (%) (Auto) 1 % (0-3) Neutrophils # (Auto) 11.3 x10^3uL (1.8-7.7) Lymphocytes # (Auto) 0.3 x10^3/uL (1.0-4.8) Monocytes # (Auto) 0.6 x10^3/uL (0.0-1.1) Eosinophils # (Auto) 0.0 x10^3/uL (0.0-0.7) Basophils # (Auto) 0.1 x10^3/uL (0.0-0.2) Prothrombin Time 51.5 SEC (11.7-14.0) Prothromb Time International Ratio 5.6 (0.8-1.1) Test 06/16/18 16:55 06/16/18 21:48 06/16/18 23:50 06/17/18 06:00 Glucose (Fingerstick) 164 mg/dL (70-99) 189 mg/dL (70-99) White Blood Count 14.0 x10^3/uL (4.0-11.0) Red Blood Count 2.91 x10^6/uL (4.30-5.70) Hemoglobin 7.7 g/dL (13.0-17.5) Hematocrit 24.6 % (39.0-53.0) Mean Corpuscular Volume 85 fL (79-100) Mean Corpuscular Hemoglobin 26 pg (25-35) Mean Corpuscular Hemoglobin Concent 31 g/dL (31-37) Red Cell Distribution Width 16.7 % (11.5-14.5) Platelet Count 320 x10^3/uL (140-400) Prothrombin Time 21.1 SEC (11.7-14.0) Prothromb Time International Ratio 1.9 (0.8-1.1) Test 06/17/18 08:06 06/17/18 12:16 Glucose (Fingerstick) 169 mg/dL (70-99) 185 mg/dL (70-99) Laboratory Tests Test 06/16/18 16:55 06/16/18 21:48 06/16/18 23:50 06/17/18 06:00 Glucose (Fingerstick) 164 mg/dL (70-99) 189 mg/dL (70-99) White Blood Count 14.0 x10^3/uL (4.0-11.0) Red Blood Count 2.91 x10^6/uL (4.30-5.70) Hemoglobin 7.7 g/dL (13.0-17.5) Hematocrit 24.6 % (39.0-53.0) Mean Corpuscular Volume 85 fL (79-100) Mean Corpuscular Hemoglobin 26 pg (25-35) Mean Corpuscular Hemoglobin Concent 31 g/dL (31-37) Red Cell Distribution Width 16.7 % (11.5-14.5) Platelet Count 320 x10^3/uL (140-400) Prothrombin Time 21.1 SEC (11.7-14.0) Prothromb Time International Ratio 1.9 (0.8-1.1) Test 06/17/18 08:06 06/17/18 12:16 Glucose (Fingerstick) 169 mg/dL (70-99) 185 mg/dL (70-99) Microbiology 06/15/18 Blood Culture - Preliminary, Resulted NO GROWTH AFTER 2 DAYS 06/15/18 Urine Culture - Preliminary, Resulted 06/15/18 Urine Culture Result 1 (FELICITA) - Preliminary, Resulted Medications Current Medications Albuterol/ Ipratropium (Duoneb) 3 ml 1X ONCE NEB Last administered on 06/15/18at 08:24; Start 06/15/18 at 08:15; Stop 06/15/18 at 08:16; Status DC Methylprednisolone Sodium Succinate (SOLU-Medrol 125MG VIAL) 125 mg 1X ONCE IV Last administered on 06/15/18at 08:46; Start 06/15/18 at 09:00; Stop 06/15/18 at 09:01; Status DC Vancomycin HCl (Vanco Per Pharmacy) 1 each PRN DAILY PRN MC SEE COMMENTS Last administered on 06/15/18at 14:59; Start 06/15/18 at 08:45 Piperacillin Sod/ Tazobactam Sod (Zosyn Per Pharmacy) 1 each PRN DAILY PRN MC SEE COMMENTS; Start 06/15/18 at 08:45 Sodium Chloride 500 ml @ 500 mls/hr 1X ONCE IV Last administered on 06/15/18at 08:47; Start 06/15/18 at 08:45; Stop 06/15/18 at 09:44; Status DC Vancomycin HCl 2 gm/Sodium Chloride 500 ml @ 250 mls/hr 1X ONCE IV Last administered on 06/15/18at 09:22; Start 06/15/18 at 09:15; Stop 06/15/18 at 11:14; Status DC Piperacillin Sod/ Tazobactam Sod 4.5 gm/Sodium Chloride 100 ml @ 200 mls/hr 1X ONCE IV Last administered on 06/15/18at 08:47; Start 06/15/18 at 09:15; Stop 06/15/18 at 09:44; Status DC Ondansetron HCl (Zofran) 4 mg PRN Q8HRS PRN IV NAUSEA/VOMITING; Start 06/15/18 at 08:45; Stop 06/16/18 at 08:44; Status DC Morphine Sulfate (Morphine Sulfate) 2 mg PRN Q2HR PRN IV PAIN; Start 06/15/18 at 08:45; Stop 06/16/18 at 08:44; Status DC Sodium Chloride 1,000 ml @ 100 mls/hr Q10H IV Last administered on 06/15/18at 09:17; Start 06/15/18 at 08:35; Stop 06/15/18 at 12:34; Status DC Albuterol/ Ipratropium (Duoneb) 3 ml RTQID NEB Last administered on 06/17/18at 09:50; Start 06/15/18 at 08:45 Acetaminophen (Tylenol) 500 mg PRN Q6HRS PRN PO MILD PAIN / TEMP; Start 06/15/18 at 08:45; Stop 06/15/18 at 14:08; Status DC Ondansetron HCl (Zofran) 4 mg PRN Q6HRS PRN IV NAUSEA/VOMITING; Start 06/15/18 at 08:45 Aspirin (Ecotrin) 81 mg DAILY PO Last administered on 06/15/18at 09:00; Start 06/15/18 at 09:00; Stop 06/16/18 at 08:34; Status DC Digoxin (Lanoxin) 125 mcg DAILY PO Last administered on 06/17/18at 08:44; Start 06/15/18 at 09:00 Furosemide (Lasix) 40 mg DAILY PO Last administered on 06/17/18 08:44; Start 06/15/18 at 09:00 Gabapentin (Neurontin) 300 mg DAILY PO Last administered on 06/17/18 08:44; Start 06/15/18 at 09:00 Lisinopril (Prinivil) 20 mg DAILY PO Last administered on 06/17/18at 08:45; Start 06/15/18 at 09:00 Metoprolol Tartrate (Lopressor) 50 mg BID PO Last administered on 06/17/18 08:45; Start 06/15/18 at 09:00 Acetaminophen (Tylenol) 500 mg PRN Q6HRS PRN PO MILD PAIN / TEMP; Start 06/15/18 at 09:30 Atorvastatin Calcium (Lipitor) 80 mg QHS PO Last administered on 06/16/18at 22:50; Start 06/15/18 at 21:00 Hydralazine HCl (Apresoline) 10 mg TID PO Last administered on 06/17/18 08:45; Start 06/15/18 at 10:00 Non-Formulary Medication (Insulin Aspart (Novolog)) 10 unit DAILYAC SQ ; Start 06/16/18 at 07:30; Status UNV Levetiracetam (Keppra) 1,250 mg BID PO Last administered on 06/17/18 08:45; Start 06/15/18 at 09:30 Multivitamins (Thera M Plus) 1 tab DAILY PO Last administered on 06/17/18 08:44; Start 06/15/18 at 09:30 Risperidone (RisperDAL) 1 mg QHS PO Last administered on 06/16/18 22:54; Start 06/15/18 at 09:45 Non-Formulary Medication (Rosuvastatin Calcium (Crestor)) 40 mg DAILY PO ; Start 06/15/18 at 09:00; Status UNV Zonisamide (Zonegran) 400 mg DAILY PO Last administered on 06/17/18 08:44; Start 06/15/18 at 09:30 Insulin Human Lispro (HumaLOG) 0-9 UNITS TIDWMEALS SQ Last administered on 06/17/18at 12:27; Start 06/15/18 at 09:20 Dextrose (Dextrose 50%-Water Syringe) 12.5 gm PRN Q15MIN PRN IV SEE COMMENTS; Start 06/15/18 at 08:45 Warfarin Sodium (Coumadin Per Pharmacy) 1 each PRN DAILY PRN MC SEE COMMENTS Last administered on 06/17/18at 09:05; Start 06/15/18 at 08:45 Warfarin Sodium (Coumadin - No Dose Today) 1 each 1X WARF ONCE MC ; Start 06/15/18 at 16:00; Stop 06/15/18 at 16:01; Status DC Piperacillin Sod/ Tazobactam Sod 4.5 gm/Sodium Chloride 100 ml @ 200 mls/hr Q6HRS IV Last administered on 06/17/18at 12:26; Start 06/15/18 at 17:00 Vancomycin HCl 1.5 gm/Sodium Chloride 500 ml @ 250 mls/hr Q18H IV Last administered on 06/16/18at 21:49; Start 06/16/18 at 03:00 Vancomycin HCl (Vancomycin Trough Level) 1 each 1X ONCE MC ; Start 06/17/18 at 14:30; Stop 06/17/18 at 14:31 Aspirin (Ecotrin) 81 mg DAILY PO Last administered on 06/17/18at 08:44; Start 06/16/18 at 09:00 Phytonadione (Mephyton Oral Soln) 5 mg 1X ONCE PO Last administered on 06/16/18at 11:02; Start 06/16/18 at 11:00; Stop 06/16/18 at 11:01; Status DC Warfarin Sodium (Coumadin - No Dose Today) 1 each 1X WARF ONCE MC ; Start 06/16/18 at 16:00; Stop 06/16/18 at 16:01; Status DC Oxycodone/ Acetaminophen (Percocet 5/325) 1 tab PRN Q4HRS PRN PO SEVERE PAIN Last administered on 06/17/18at 03:26; Start 06/17/18 at 03:15 Warfarin Sodium (Coumadin) 3 mg 1X WARF ONCE PO ; Start 06/17/18 at 16:00; Stop 06/17/18 at 16:01 Active Scripts Active Digoxin 125 Mcg Tablet 125 Mcg PO DAILY Furosemide 40 Mg Tablet 40 Mg PO DAILY Metoprolol Tartrate 50 Mg Tablet 50 Mg PO BID [Warfarin Sodium] 1 EACH Each 1 Each MC PRN DAILY PRN Lisinopril 20 Mg Tablet 20 Mg PO DAILY Duoneb 0.5-3(2.5) Mg/3 Ml (Albuterol/Ipratropium) 3 Ml Ampul.neb 3 Ml NEB Q4HRS W/A 30 Days Hydralazine Hcl 10 Mg Tablet 10 Mg PO TID Reported Zonisamide 100 Mg Capsule 400 Mg PO DAILY Percocet 5-325 Mg Tablet (Oxycodone/Acetaminophen) 1 Each Tablet 1 Tab PO PRN Q4HRS PRN Multivitamins (Multivitamin) 1 Each Tablet 1 Tab PO DAILY Levetiracetam 250 Mg Tablet 1,250 Mg PO BID Novolin N (Nph, Human Insulin Isophane) 100 Unit/1 Ml Vial Unknown Dose SQ Atorvastatin Calcium 80 Mg Tablet 1 Tab PO DAILY Acetaminophen 500 Mg Tablet 1 Tab PO PRN Q6HRS PRN Albuterol Sulfate Hfa Inhaler (Albuterol Sulfate) 8.5 Gm Hfa.aer.ad 2 Puff IH PRN Q6HRS PRN Aspirin Ec (Aspirin) 325 Mg Tablet.dr 81 Mg PO DAILY Crestor (Rosuvastatin Calcium) 40 Mg Tablet 40 Mg PO DAILY Warfarin Sodium 5 Mg Tablet 6 Mg PO DAILY Warfarin Sodium 2.5 Mg Tablet 2.5 Mg PO 3X/WEEK monday,monday, Gabapentin (Gabapentin) 300 Mg Capsule 300 Mg PO DAILY Risperidone 1 Mg Tablet 1 Mg PO HS Novolog (Insulin Aspart) 100 Unit/1 Ml Vial 10 Unit SQ DAILYAC Oxycodone-Acetaminophen 10-325 (Oxycodone Hcl/Acetaminophen) 1 Each Tablet 1 Each PO PRN Q6HRS Potassium 99 Mg Tablet 20 Meq PO DAILY Prednisone (Prednisone) 10 Mg Tablet 10 Mg PO DAILY Metformin Hcl 500 Mg Tablet 1,000 Mg PO BIDBFRMEAL Vitals/I & O Vital Sign - Last 24 Hours 06/16/18 06/16/18 06/16/18 06/16/18 14:07 14:53 14:55 15:07 Temp 98.3 98.5 98.5 98.3 98.5 98.5 Pulse 63 63 63 63 Resp 18 20 B/P (MAP) 107/54 (71) 114/44 114/44 (67) 117/57 Pulse Ox 100 98 O2 Delivery Nasal Cannula Nasal Cannula O2 Flow Rate 2.0 2.0 06/16/18 06/16/18 06/16/18 06/16/18 15:22 15:35 15:37 16:04 Temp 98.4 98.3 98.4 98.3 Pulse 63 63 Resp 20 18 B/P (MAP) 116/60 116/54 Pulse Ox 91 O2 Delivery Nasal Cannula Nasal Cannula O2 Flow Rate 3.0 2.0 06/16/18 06/16/18 06/16/18 06/16/18 16:08 16:12 16:53 17:00 Temp 98.3 98.3 98.4 98.3 98.3 98.3 98.4 98.3 Pulse 63 63 64 64 Resp 20 18 18 18 B/P (MAP) 99/37 99/37 (57) 125/72 90/78 (82) Pulse Ox 98 98 O2 Delivery Nasal Cannula Nasal Cannula O2 Flow Rate 2.0 2.0 06/16/18 06/16/18 06/16/18 06/16/18 18:24 18:26 18:37 18:44 Temp 98.3 98.4 98.0 98.5 98.3 98.4 98.0 98.5 Pulse 64 64 64 63 Resp 18 18 18 18 B/P (MAP) 105/91 105/91 (96) 122/54 125/62 Pulse Ox 98 O2 Delivery Nasal Cannula O2 Flow Rate 2.0 06/16/18 06/16/18 06/16/18 06/16/18 18:45 18:59 20:00 20:00 Temp 98.5 98.4 97.4 98.5 98.4 97.4 Pulse 64 64 63 Resp 18 18 16 B/P (MAP) 125/62 124/55 126/58 (80) Pulse Ox 100 O2 Delivery Nasal Cannula Nasal Cannula O2 Flow Rate 2.0 2.0 06/16/18 06/16/18 06/16/18 06/16/18 20:00 20:01 20:35 21:00 Temp 97.4 97.5 97.5 97.4 97.5 97.5 Pulse 63 63 63 Resp 16 12 8 B/P (MAP) 126/58 117/54 123/60 (81) Pulse Ox 95 100 O2 Delivery Nasal Cannula Nasal Cannula O2 Flow Rate 3.0 2.0 06/16/18 06/16/18 06/16/18 06/16/18 21:35 22:00 22:50 22:51 Temp 97.5 97.5 Pulse 63 63 64 64 Resp 10 16 B/P (MAP) 123/60 135/74 (94) 137/74 135/74 Pulse Ox 99 O2 Delivery Nasal Cannula O2 Flow Rate 2.0 06/16/18 06/17/18 06/17/18 06/17/18 23:00 00:19 00:21 01:00 Temp 97.7 97.7 Pulse 64 64 63 Resp 16 14 16 B/P (MAP) 130/53 (78) 156/56 (89) 107/78 (88) Pulse Ox 100 96 98 O2 Delivery Nasal Cannula Nasal Cannula Nasal Cannula Nasal Cannula O2 Flow Rate 2.0 2.0 2.0 2.0 06/17/18 06/17/18 06/17/18 06/17/18 02:02 03:39 04:00 04:00 Temp 97.7 97.7 Pulse 64 65 65 Resp 16 20 20 B/P (MAP) 110/57 (74) 113/42 (65) 125/53 (77) Pulse Ox 96 98 100 O2 Delivery Nasal Cannula Nasal Cannula Nasal Cannula Nasal Cannula O2 Flow Rate 2.0 2.0 2.0 2.0 06/17/18 06/17/18 06/17/18 06/17/18 05:00 06:00 07:00 08:00 Temp 97.6 97.8 97.6 97.8 Pulse 64 66 73 66 Resp 01 17 16 17 B/P (MAP) 100/54 (69) 95/46 (62) 110/47 (68) 133/63 (86) Pulse Ox 97 99 89 99 O2 Delivery Nasal Cannula Nasal Cannula Nasal Cannula Nasal Cannula O2 Flow Rate 2.0 2.0 2.0 3.0 06/17/18 06/17/18 06/17/18 06/17/18 08:00 08:44 08:45 08:45 Pulse 66 66 66 B/P (MAP) 133/63 133/63 133/63 O2 Delivery Nasal Cannula O2 Flow Rate 3.0 06/17/18 06/17/18 06/17/18 06/17/18 08:45 09:00 09:51 10:00 Temp 98.3 98.0 98.3 98.0 Pulse 66 66 65 Resp 18 18 B/P (MAP) 133/63 127/57 (80) Pulse Ox 95 96 O2 Delivery Nasal Cannula Nasal Cannula Nasal Cannula O2 Flow Rate 3.0 3.0 3.0 06/17/18 06/17/18 06/17/18 11:00 12:00 12:00 Temp 97.9 97.8 97.9 97.8 Pulse 65 65 Resp 17 16 B/P (MAP) 132/48 (76) 90/41 (57) Pulse Ox 98 99 O2 Delivery Nasal Cannula Nasal Cannula Nasal Cannula O2 Flow Rate 3.0 3.0 3.0 Intake and Output 06/16/18 06/16/18 06/17/18 15:00 23:00 07:00 Intake Total 300 ml 890 ml 520 ml Output Total 100 ml 0 ml 0 ml Balance 200 ml 890 ml 520 ml OBI SOLANO III DO June 17, 2018 13:24
[2018-06-17] MEDS: VANCOMYCIN 1.5 GM in IV NORMAL SALINE 500ML BAG 500 ML IV SCH ×2 (15:00→21:34)
--- NOTE | 2018-06-17 15:25 | NUR ---
Pharmacy Warfarin Dosing Note S:Pharmacy consulted to assist with anticoagulation therapy started with target INR: 2 -3 O:VICKI BRAUN is a 78 year old M with Atrial Fibrillation Bioprosthetic Valve LABS: Last INR: 1.9 Last HGB: 7.5 Last HCT: 24.1 Last PLT: 404 Last dose of Hold given on 06/16/18 at Previous Regimen: Vitamin K given: Y Drug Interaction Changes: Ongoing Drug Interactions: A:INR of 1.9 is below desired range. Target range for this patient is: 2 -3 P: Warfarin dose: 3 mg Today at 1600 Bridge Therapy: Next INR due in am Pharmacy anticoagulation service will continue to follow. ANTHONY RODRIGUES [facility], 06/17/18 [id number]
[2018-06-17 15:46] LABS: VANC TR 24.7 mcg/mL (10.0-20.0)
[2018-06-17] MEDS ORDERED: WARFARIN 3 MG TABLET. PO ONE (16:00)
[2018-06-17] MEDS: VANCOMYCIN PER PHARMACY MC PRN (16:09)
--- NOTE | 2018-06-17 16:10 | NUR ---
Pharmacy Vancomycin Dosing Note S:Consulted to monitor and dose vancomycin started 06/15/18. O:VICKI BRAUN is a 78 year old M with HCAP . Height: 5 feet, 10 inches Weight: 100.509227 kg [place] Body Weight: 73.00 Adjusted Body Weight: 82.60 Dosing Weight: Actual Other Antibiotics: LABS: Last BUN: 15 Last Creatinine: 1.0 Creatinine Clearance: 73 mL/min Last WBC: 14 Last Procalcitonin: Tmax (past 24 hours): 99.8 Microbiology: I/O: 1490/100 Drug Levels: Last Trough level: 24.7 on 06/17/18 at 1530 Last dose given at Vancomycin Dosing: Loading Dose: 2000 mg x1 Dosing Weight: Actual Target Trough: 15-20 A: Based on: LEVEL P: 1. Change Vancomycin 1500 mg IV q24h 2. Follow up Trough level on 06/19/18 at 2030 3. Pharmacy will continue to monitor, follow and adjust therapy as needed. ANTHONY RODRIGUES [facility], 06/17/18 [id number]
[2018-06-17] MEDS: ALBUTEROL SULFATE 2.5 MG/3 ML NEBU. IH PRN (17:50)
[2018-06-17] MEDS: risperiDONE 1 MG TABLET. PO SCH (21:27)
[2018-06-17] MEDS: ATORVASTATIN CALCIUM 40 MG TABLET. PO SCH (21:27)
[2018-06-18] MEDS: PIPERACILLIN/TAZOBACTAM 4.5 GM in IV NORMAL SALINE 100ML 100 ML IV SCH ×3 (00:10→12:51)
[2018-06-18 03:00] VITALS: BP 129/45
[2018-06-18 06:21] LABS: BASO % 0 % (0-3); EOS # 0.5 x10^3/uL (0.0-0.7); EOS % 4 % (0-3); HEMATOCRIT 25.9 % (39.0-53.0); HEMOGLOBIN 8.2 g/dL (13.0-17.5); LYMPH # 0.6 x10^3/uL (1.0-4.8); LYMPH % 5 % (24-48); MEAN CORPUSCULAR HEMOGLOBIN 27 pg (25-35); MEAN CORPUSCULAR HGB CONC 32 g/dL (31-37); MEAN CORPUSCULAR VOLUME 85 fL (79-100); MONO # 1.2 x10^3/uL (0.0-1.1); MONO % 11 % (0-9); NEUT # 8.9 x10^3uL (1.8-7.7); NEUT % 80 % (31-73); PLATELET COUNT 327 x10^3/uL (140-400); RED BLOOD COUNT 3.05 x10^6/uL (4.30-5.70); WHITE BLOOD COUNT 11.1 x10^3/uL (4.0-11.0)
[2018-06-18 06:30] LABS: PROTHROMBIN TIME PATIENT 18.2 SEC (11.7-14.0)
[2018-06-18 06:32] LABS: CALCIUM 8.3 mg/dL (8.5-10.1); CREATININE 1.2 mg/dL (0.7-1.3); GFR 58.9; POTASSIUM 3.4 mmol/L (3.5-5.1)
[2018-06-18 07:00] VITALS: BP 96/50
[2018-06-18] MEDS: IPRATRPIUM/ALBUTEROL 0.5/2.5MG 3 ML NEBU. NEB SCH ×4 (07:36→20:02)
[2018-06-18] MEDS: INSULIN LISPRO 300 UNITS/3 ML INSULN.PEN. SQ SCH ×3 (08:00→16:58)
[2018-06-18] MEDS: GABAPENTIN 300 MG CAPSULE. PO SCH (08:38)
[2018-06-18] MEDS: ZONISAMIDE 100 MG CAPSULE. PO SCH (08:38)
[2018-06-18] MEDS: MULTIVITAMIN with MINERAL TABLET. PO SCH (08:38)
--- NOTE | 2018-06-18 08:38 | PDOC ---
PULMONARY PROGRESS NOTES Subjective UP IN CHAIR PT NOT MORE SOA FEEL BETTER Vitals Vital Signs Date Time Temp Pulse Resp B/P (MAP) Pulse Ox O2 Delivery O2 Flow Rate FiO2 06/18/18 07:38 97 Nasal Cannula 3.0 06/18/18 07:00 97.4 53 16 96/50 (65) 97.4 ROS: No Chest Pain, No Abdominal Pain, No Increase Cough General: Alert Lungs: Wheezing, Crackles Cardiovascular: S1 Abdomen: Soft, Non-tender, Other Extremities: Other (L ARM SWOLLEN) Labs Laboratory Tests Test 06/16/18 09:30 06/16/18 11:22 06/16/18 16:55 06/16/18 21:48 White Blood Count 12.2 x10^3/uL (4.0-11.0) Red Blood Count 2.62 x10^6/uL (4.30-5.70) Hemoglobin 6.7 g/dL (13.0-17.5) Hematocrit 22.2 % (39.0-53.0) Mean Corpuscular Volume 85 fL (79-100) Mean Corpuscular Hemoglobin 26 pg (25-35) Mean Corpuscular Hemoglobin Concent 30 g/dL (31-37) Red Cell Distribution Width 16.9 % (11.5-14.5) Platelet Count 314 x10^3/uL (140-400) Neutrophils (%) (Auto) 92 % (31-73) Lymphocytes (%) (Auto) 2 % (24-48) Monocytes (%) (Auto) 5 % (0-9) Eosinophils (%) (Auto) 0 % (0-3) Basophils (%) (Auto) 1 % (0-3) Neutrophils # (Auto) 11.3 x10^3uL (1.8-7.7) Lymphocytes # (Auto) 0.3 x10^3/uL (1.0-4.8) Monocytes # (Auto) 0.6 x10^3/uL (0.0-1.1) Eosinophils # (Auto) 0.0 x10^3/uL (0.0-0.7) Basophils # (Auto) 0.1 x10^3/uL (0.0-0.2) Prothrombin Time 51.5 SEC (11.7-14.0) Prothromb Time International Ratio 5.6 (0.8-1.1) Glucose (Fingerstick) 224 mg/dL (70-99) 164 mg/dL (70-99) 189 mg/dL (70-99) Test 06/16/18 23:50 06/17/18 06:00 06/17/18 08:06 06/17/18 12:16 White Blood Count 14.0 x10^3/uL (4.0-11.0) Red Blood Count 2.91 x10^6/uL (4.30-5.70) Hemoglobin 7.7 g/dL (13.0-17.5) Hematocrit 24.6 % (39.0-53.0) Mean Corpuscular Volume 85 fL (79-100) Mean Corpuscular Hemoglobin 26 pg (25-35) Mean Corpuscular Hemoglobin Concent 31 g/dL (31-37) Red Cell Distribution Width 16.7 % (11.5-14.5) Platelet Count 320 x10^3/uL (140-400) Prothrombin Time 21.1 SEC (11.7-14.0) Prothromb Time International Ratio 1.9 (0.8-1.1) Glucose (Fingerstick) 169 mg/dL (70-99) 185 mg/dL (70-99) Test 06/17/18 15:29 06/17/18 17:11 06/17/18 21:31 06/18/18 06:10 Vancomycin Level Trough 24.7 mcg/mL (10.0-20.0) Vancomycin Last Dose Date 06/17/18 Vancomycin Last Dose Time 0200 Glucose (Fingerstick) 171 mg/dL (70-99) 176 mg/dL (70-99) White Blood Count 11.1 x10^3/uL (4.0-11.0) Red Blood Count 3.05 x10^6/uL (4.30-5.70) Hemoglobin 8.2 g/dL (13.0-17.5) Hematocrit 25.9 % (39.0-53.0) Mean Corpuscular Volume 85 fL (79-100) Mean Corpuscular Hemoglobin 27 pg (25-35) Mean Corpuscular Hemoglobin Concent 32 g/dL (31-37) Red Cell Distribution Width 17.0 % (11.5-14.5) Platelet Count 327 x10^3/uL (140-400) Neutrophils (%) (Auto) 80 % (31-73) Lymphocytes (%) (Auto) 5 % (24-48) Monocytes (%) (Auto) 11 % (0-9) Eosinophils (%) (Auto) 4 % (0-3) Basophils (%) (Auto) 0 % (0-3) Neutrophils # (Auto) 8.9 x10^3uL (1.8-7.7) Lymphocytes # (Auto) 0.6 x10^3/uL (1.0-4.8) Monocytes # (Auto) 1.2 x10^3/uL (0.0-1.1) Eosinophils # (Auto) 0.5 x10^3/uL (0.0-0.7) Basophils # (Auto) 0.0 x10^3/uL (0.0-0.2) Prothrombin Time 18.2 SEC (11.7-14.0) Prothromb Time International Ratio 1.5 (0.8-1.1) Sodium Level 143 mmol/L (136-145) Potassium Level 3.4 mmol/L (3.5-5.1) Chloride Level 107 mmol/L (98-107) Carbon Dioxide Level 28 mmol/L (21-32) Anion Gap 8 (6-14) Blood Urea Nitrogen 19 mg/dL (8-26) Creatinine 1.2 mg/dL (0.7-1.3) Estimated GFR (Cockcroft-Gault) 58.9 Glucose Level 161 mg/dL (70-99) Calcium Level 8.3 mg/dL (8.5-10.1) Test 06/18/18 07:33 Glucose (Fingerstick) 142 mg/dL (70-99) Laboratory Tests Test 06/17/18 12:16 06/17/18 15:29 06/17/18 17:11 06/17/18 21:31 Glucose (Fingerstick) 185 mg/dL (70-99) 171 mg/dL (70-99) 176 mg/dL (70-99) Vancomycin Level Trough 24.7 mcg/mL (10.0-20.0) Vancomycin Last Dose Date 06/17/18 Vancomycin Last Dose Time 0200 Test 06/18/18 06:10 06/18/18 07:33 White Blood Count 11.1 x10^3/uL (4.0-11.0) Red Blood Count 3.05 x10^6/uL (4.30-5.70) Hemoglobin 8.2 g/dL (13.0-17.5) Hematocrit 25.9 % (39.0-53.0) Mean Corpuscular Volume 85 fL (79-100) Mean Corpuscular Hemoglobin 27 pg (25-35) Mean Corpuscular Hemoglobin Concent 32 g/dL (31-37) Red Cell Distribution Width 17.0 % (11.5-14.5) Platelet Count 327 x10^3/uL (140-400) Neutrophils (%) (Auto) 80 % (31-73) Lymphocytes (%) (Auto) 5 % (24-48) Monocytes (%) (Auto) 11 % (0-9) Eosinophils (%) (Auto) 4 % (0-3) Basophils (%) (Auto) 0 % (0-3) Neutrophils # (Auto) 8.9 x10^3uL (1.8-7.7) Lymphocytes # (Auto) 0.6 x10^3/uL (1.0-4.8) Monocytes # (Auto) 1.2 x10^3/uL (0.0-1.1) Eosinophils # (Auto) 0.5 x10^3/uL (0.0-0.7) Basophils # (Auto) 0.0 x10^3/uL (0.0-0.2) Prothrombin Time 18.2 SEC (11.7-14.0) Prothromb Time International Ratio 1.5 (0.8-1.1) Sodium Level 143 mmol/L (136-145) Potassium Level 3.4 mmol/L (3.5-5.1) Chloride Level 107 mmol/L (98-107) Carbon Dioxide Level 28 mmol/L (21-32) Anion Gap 8 (6-14) Blood Urea Nitrogen 19 mg/dL (8-26) Creatinine 1.2 mg/dL (0.7-1.3) Estimated GFR (Cockcroft-Gault) 58.9 Glucose Level 161 mg/dL (70-99) Calcium Level 8.3 mg/dL (8.5-10.1) Glucose (Fingerstick) 142 mg/dL (70-99) Medications Active Scripts Medications Dose Route/Sig Max Daily Dose Days Date Category Dose Instructions Digoxin 125 Mcg Tablet 125 Mcg PO DAILY 05/15/16 Rx Furosemide 40 Mg Tablet 40 Mg PO DAILY 05/15/16 Rx Zonisamide 100 Mg Capsule 400 Mg PO DAILY 05/11/16 Reported Percocet 5-325 Mg Tablet (Oxycodone/Acetaminophen) 1 Each Tablet 1 Tab PO PRN Q4HRS PRN 05/11/16 Reported Multivitamins (Multivitamin) 1 Each Tablet 1 Tab PO DAILY 05/11/16 Reported Levetiracetam 250 Mg Tablet 1,250 Mg PO BID 05/11/16 Reported Novolin N (Nph, Human Insulin Isophane) 100 Unit/1 Ml Vial Unknown Dose SQ 05/11/16 Reported Atorvastatin Calcium 80 Mg Tablet 1 Tab PO DAILY 05/11/16 Reported Acetaminophen 500 Mg Tablet 1 Tab PO PRN Q6HRS PRN 05/11/16 Reported Metoprolol Tartrate 50 Mg Tablet 50 Mg PO BID 02/24/16 Rx [Warfarin Sodium] 1 EACH Each 1 Each MC PRN DAILY PRN 02/24/16 Rx Lisinopril 20 Mg Tablet 20 Mg PO DAILY 02/24/16 Rx Duoneb 0.5-3(2.5) Mg/3 Ml (Albuterol/Ipratropium) 3 Ml Ampul.neb 3 Ml NEB Q4HRS W/A 30 02/24/16 Rx Hydralazine Hcl 10 Mg Tablet 10 Mg PO TID 02/24/16 Rx Albuterol Sulfate Hfa Inhaler (Albuterol Sulfate) 8.5 Gm Hfa.aer.ad 2 Puff IH PRN Q6HRS PRN 02/20/13 Reported Aspirin Ec (Aspirin) 325 Mg Tablet.dr 81 Mg PO DAILY 02/20/13 Reported Crestor (Rosuvastatin Calcium) 40 Mg Tablet 40 Mg PO DAILY 02/19/13 Reported Warfarin Sodium 5 Mg Tablet 6 Mg PO DAILY 02/19/13 Reported Warfarin Sodium 2.5 Mg Tablet 2.5 Mg PO 3X/WEEK 02/19/13 Reported monday,monday, Gabapentin (Gabapentin) 300 Mg Capsule 300 Mg PO DAILY 02/19/13 Reported Risperidone 1 Mg Tablet 1 Mg PO HS 02/19/13 Reported Novolog (Insulin Aspart) 100 Unit/1 Ml Vial 10 Unit SQ DAILYAC 02/19/13 Reported Oxycodone-Acetaminophen 10-325 (Oxycodone Hcl/Acetaminophen) 1 Each Tablet 1 Each PO PRN Q6HRS 02/19/13 Reported Potassium 99 Mg Tablet 20 Meq PO DAILY 02/19/13 Reported Prednisone (Prednisone) 10 Mg Tablet 10 Mg PO DAILY 02/19/13 Reported Metformin Hcl 500 Mg Tablet 1,000 Mg PO BIDBFRMEAL 02/19/13 Reported Impression . IMPRESSION: 1. Acute hypoxemic respiratory failure. 2. Mullo-ji-[id number] diastolic heart failure. 3. Atrial fibrillation with rapid ventricular response. 4. Coronary artery disease, status post coronary artery bypass grafting. 5. Leukocytosis, suspect reactive. 6. 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 7. Peripheral vascular disease. 8. Functional quadriplegia. 9. Accelerated hypertension. 10. Severe protein malnutrition. 11 h/o MRSA bacteremia with sepsis from 05/18. D/c Dapto till 07/02 -CRYSTAL done no vegetations 05/21; BC from 05/20 & onward were neg (PER ID) 12 NEGATIVE LEFT UPPER EXT VENOUS Plan . ANTIBX PER ID GI WORK UP PRN BIPAP U/S UPPER L EXT NEGATIVE DIURESE CONTROL HR DIETARY CONSULT MANDEEP [email or web address] MD June 18, 2018 08:38
[2018-06-18] MEDS: ASPIRIN ENTERIC COATED 81 MG TABLET.DR. PO SCH (08:39)
[2018-06-18] MEDS: levETIRAcetam 250 MG TABLET PO SCH ×2 (08:39→22:20)
[2018-06-18] MEDS: DIGOXIN 125 MCG TABLET. PO SCH ×2 (08:40→12:51)
[2018-06-18] MEDS: FUROSEMIDE 40 MG TABLET. PO SCH ×2 (08:40→12:51)
[2018-06-18] MEDS: hydrALAZINE 10 MG TABLET PO SCH ×3 (08:40→22:22)
[2018-06-18] MEDS: METOPROLOL TART IMMED RELEASE 50 MG TABLET. PO SCH ×3 (08:40→22:23)
[2018-06-18] MEDS: LISINOPRIL 20 MG TABLET PO SCH (08:40)
--- NOTE | 2018-06-18 08:50 | PDOC ---
PROGRESS NOTES Chief Complaint Chief Complaint Pneumonia with right perihilar infiltrate. Leukocytosis Chronic Crawley with pyuria MRSA bacteremia with sepsis from 05/18. D/c Dapto till 07/02 Acute on chronic CHF MRSA and Enterobacter ( R Augmentin/cefuroxime) infection PSA ( R quinolones & I imipenem) infection Bioprosthetic aortic valve A- fib Anticoagulation on warfarin Diabetes Type II Seizure disorder, on Keppra Noncompliance New anemia with possible GI bleed s/p blood transfusion History of Present Illness History of Present Illness Patient seen and examined. I discussed the case at length with his RN. INR 1.5, K 3.4. Sitting up in chair this morning. He denies dark stools or bloody stools or hemoptysis. Urine returned with 100K GNR today Vitals Vitals Vital Signs Date Time Temp Pulse Resp B/P (MAP) Pulse Ox O2 Delivery O2 Flow Rate FiO2 06/18/18 07:38 97 Nasal Cannula 3.0 06/18/18 07:00 97.4 53 16 96/50 (65) 97.4 Physical Exam Physical Exam GENERAL: Propped up in bed, alert, eating breakfast and watching TV. HEENT: Pupils equally round and reactive. Normal conjunctivae. Oral oralpharynx pink and moist. No thrush. NECK: Supple. LUNGS: Improved aeration HEART: S1 and S2 irregular. ABDOMEN: Obese, soft and nontender with bowel sounds present. GENITOURINARY: Indwelling Crawley out. EXTREMITIES: Left hand is swollen. No redness, warmth or limited range of motion. Left lower extremity 2+ edema. No cyanosis. Right BKA covered/sleeve SKIN: Warm without generalized rash. Multiple tattoos. A small superficial ulcer, left lateral malleolus area without signs of infection. NEUROLOGIC: Alert and responding appropriately. Poor historian. RUE-PICC (POA) without signs of any complications. 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 taken down in the distant past) Extremities: Other (he is bilateral amputee with wound dressing he also has a stump protector on the right and a knee brace on the right) Labs LABS Laboratory Tests Test 06/17/18 12:16 06/17/18 15:29 06/17/18 17:11 06/17/18 21:31 Glucose (Fingerstick) 185 mg/dL (70-99) 171 mg/dL (70-99) 176 mg/dL (70-99) Vancomycin Level Trough 24.7 mcg/mL (10.0-20.0) Vancomycin Last Dose Date 06/17/18 Vancomycin Last Dose Time 0200 Test 06/18/18 06:10 06/18/18 07:33 White Blood Count 11.1 x10^3/uL (4.0-11.0) Red Blood Count 3.05 x10^6/uL (4.30-5.70) Hemoglobin 8.2 g/dL (13.0-17.5) Hematocrit 25.9 % (39.0-53.0) Mean Corpuscular Volume 85 fL (79-100) Mean Corpuscular Hemoglobin 27 pg (25-35) Mean Corpuscular Hemoglobin Concent 32 g/dL (31-37) Red Cell Distribution Width 17.0 % (11.5-14.5) Platelet Count 327 x10^3/uL (140-400) Neutrophils (%) (Auto) 80 % (31-73) Lymphocytes (%) (Auto) 5 % (24-48) Monocytes (%) (Auto) 11 % (0-9) Eosinophils (%) (Auto) 4 % (0-3) Basophils (%) (Auto) 0 % (0-3) Neutrophils # (Auto) 8.9 x10^3uL (1.8-7.7) Lymphocytes # (Auto) 0.6 x10^3/uL (1.0-4.8) Monocytes # (Auto) 1.2 x10^3/uL (0.0-1.1) Eosinophils # (Auto) 0.5 x10^3/uL (0.0-0.7) Basophils # (Auto) 0.0 x10^3/uL (0.0-0.2) Prothrombin Time 18.2 SEC (11.7-14.0) Prothromb Time International Ratio 1.5 (0.8-1.1) Sodium Level 143 mmol/L (136-145) Potassium Level 3.4 mmol/L (3.5-5.1) Chloride Level 107 mmol/L (98-107) Carbon Dioxide Level 28 mmol/L (21-32) Anion Gap 8 (6-14) Blood Urea Nitrogen 19 mg/dL (8-26) Creatinine 1.2 mg/dL (0.7-1.3) Estimated GFR (Cockcroft-Gault) 58.9 Glucose Level 161 mg/dL (70-99) Calcium Level 8.3 mg/dL (8.5-10.1) Glucose (Fingerstick) 142 mg/dL (70-99) Assessment and Plan Assessmemt and Plan Problems Medical Problems: (1) Pneumonia Status: Acute (2) Sepsis Status: Acute (3) Tachycardia Status: Acute Comment Review of Relevant I have reviewed the following items navi (where applicable) has been applied. Labs Laboratory Tests Test 06/16/18 09:30 06/16/18 11:22 06/16/18 16:55 06/16/18 21:48 White Blood Count 12.2 x10^3/uL (4.0-11.0) Red Blood Count 2.62 x10^6/uL (4.30-5.70) Hemoglobin 6.7 g/dL (13.0-17.5) Hematocrit 22.2 % (39.0-53.0) Mean Corpuscular Volume 85 fL (79-100) Mean Corpuscular Hemoglobin 26 pg (25-35) Mean Corpuscular Hemoglobin Concent 30 g/dL (31-37) Red Cell Distribution Width 16.9 % (11.5-14.5) Platelet Count 314 x10^3/uL (140-400) Neutrophils (%) (Auto) 92 % (31-73) Lymphocytes (%) (Auto) 2 % (24-48) Monocytes (%) (Auto) 5 % (0-9) Eosinophils (%) (Auto) 0 % (0-3) Basophils (%) (Auto) 1 % (0-3) Neutrophils # (Auto) 11.3 x10^3uL (1.8-7.7) Lymphocytes # (Auto) 0.3 x10^3/uL (1.0-4.8) Monocytes # (Auto) 0.6 x10^3/uL (0.0-1.1) Eosinophils # (Auto) 0.0 x10^3/uL (0.0-0.7) Basophils # (Auto) 0.1 x10^3/uL (0.0-0.2) Prothrombin Time 51.5 SEC (11.7-14.0) Prothromb Time International Ratio 5.6 (0.8-1.1) Glucose (Fingerstick) 224 mg/dL (70-99) 164 mg/dL (70-99) 189 mg/dL (70-99) Test 06/16/18 23:50 06/17/18 06:00 06/17/18 08:06 06/17/18 12:16 White Blood Count 14.0 x10^3/uL (4.0-11.0) Red Blood Count 2.91 x10^6/uL (4.30-5.70) Hemoglobin 7.7 g/dL (13.0-17.5) Hematocrit 24.6 % (39.0-53.0) Mean Corpuscular Volume 85 fL (79-100) Mean Corpuscular Hemoglobin 26 pg (25-35) Mean Corpuscular Hemoglobin Concent 31 g/dL (31-37) Red Cell Distribution Width 16.7 % (11.5-14.5) Platelet Count 320 x10^3/uL (140-400) Prothrombin Time 21.1 SEC (11.7-14.0) Prothromb Time International Ratio 1.9 (0.8-1.1) Glucose (Fingerstick) 169 mg/dL (70-99) 185 mg/dL (70-99) Test 06/17/18 15:29 06/17/18 17:11 06/17/18 21:31 06/18/18 06:10 Vancomycin Level Trough 24.7 mcg/mL (10.0-20.0) Vancomycin Last Dose Date 06/17/18 Vancomycin Last Dose Time 0200 Glucose (Fingerstick) 171 mg/dL (70-99) 176 mg/dL (70-99) White Blood Count 11.1 x10^3/uL (4.0-11.0) Red Blood Count 3.05 x10^6/uL (4.30-5.70) Hemoglobin 8.2 g/dL (13.0-17.5) Hematocrit 25.9 % (39.0-53.0) Mean Corpuscular Volume 85 fL (79-100) Mean Corpuscular Hemoglobin 27 pg (25-35) Mean Corpuscular Hemoglobin Concent 32 g/dL (31-37) Red Cell Distribution Width 17.0 % (11.5-14.5) Platelet Count 327 x10^3/uL (140-400) Neutrophils (%) (Auto) 80 % (31-73) Lymphocytes (%) (Auto) 5 % (24-48) Monocytes (%) (Auto) 11 % (0-9) Eosinophils (%) (Auto) 4 % (0-3) Basophils (%) (Auto) 0 % (0-3) Neutrophils # (Auto) 8.9 x10^3uL (1.8-7.7) Lymphocytes # (Auto) 0.6 x10^3/uL (1.0-4.8) Monocytes # (Auto) 1.2 x10^3/uL (0.0-1.1) Eosinophils # (Auto) 0.5 x10^3/uL (0.0-0.7) Basophils # (Auto) 0.0 x10^3/uL (0.0-0.2) Prothrombin Time 18.2 SEC (11.7-14.0) Prothromb Time International Ratio 1.5 (0.8-1.1) Sodium Level 143 mmol/L (136-145) Potassium Level 3.4 mmol/L (3.5-5.1) Chloride Level 107 mmol/L (98-107) Carbon Dioxide Level 28 mmol/L (21-32) Anion Gap 8 (6-14) Blood Urea Nitrogen 19 mg/dL (8-26) Creatinine 1.2 mg/dL (0.7-1.3) Estimated GFR (Cockcroft-Gault) 58.9 Glucose Level 161 mg/dL (70-99) Calcium Level 8.3 mg/dL (8.5-10.1) Test 06/18/18 07:33 Glucose (Fingerstick) 142 mg/dL (70-99) Laboratory Tests Test 06/17/18 12:16 06/17/18 15:29 06/17/18 17:11 06/17/18 21:31 Glucose (Fingerstick) 185 mg/dL (70-99) 171 mg/dL (70-99) 176 mg/dL (70-99) Vancomycin Level Trough 24.7 mcg/mL (10.0-20.0) Vancomycin Last Dose Date 06/17/18 Vancomycin Last Dose Time 0200 Test 06/18/18 06:10 06/18/18 07:33 White Blood Count 11.1 x10^3/uL (4.0-11.0) Red Blood Count 3.05 x10^6/uL (4.30-5.70) Hemoglobin 8.2 g/dL (13.0-17.5) Hematocrit 25.9 % (39.0-53.0) Mean Corpuscular Volume 85 fL (79-100) Mean Corpuscular Hemoglobin 27 pg (25-35) Mean Corpuscular Hemoglobin Concent 32 g/dL (31-37) Red Cell Distribution Width 17.0 % (11.5-14.5) Platelet Count 327 x10^3/uL (140-400) Neutrophils (%) (Auto) 80 % (31-73) Lymphocytes (%) (Auto) 5 % (24-48) Monocytes (%) (Auto) 11 % (0-9) Eosinophils (%) (Auto) 4 % (0-3) Basophils (%) (Auto) 0 % (0-3) Neutrophils # (Auto) 8.9 x10^3uL (1.8-7.7) Lymphocytes # (Auto) 0.6 x10^3/uL (1.0-4.8) Monocytes # (Auto) 1.2 x10^3/uL (0.0-1.1) Eosinophils # (Auto) 0.5 x10^3/uL (0.0-0.7) Basophils # (Auto) 0.0 x10^3/uL (0.0-0.2) Prothrombin Time 18.2 SEC (11.7-14.0) Prothromb Time International Ratio 1.5 (0.8-1.1) Sodium Level 143 mmol/L (136-145) Potassium Level 3.4 mmol/L (3.5-5.1) Chloride Level 107 mmol/L (98-107) Carbon Dioxide Level 28 mmol/L (21-32) Anion Gap 8 (6-14) Blood Urea Nitrogen 19 mg/dL (8-26) Creatinine 1.2 mg/dL (0.7-1.3) Estimated GFR (Cockcroft-Gault) 58.9 Glucose Level 161 mg/dL (70-99) Calcium Level 8.3 mg/dL (8.5-10.1) Glucose (Fingerstick) 142 mg/dL (70-99) Microbiology 06/15/18 Blood Culture - Preliminary, Resulted NO GROWTH AFTER 2 DAYS 06/15/18 Urine Culture - Preliminary, Resulted 06/15/18 Urine Culture Result 1 (FELICITA) - Preliminary, Resulted Medications Current Medications Albuterol/ Ipratropium (Duoneb) 3 ml 1X ONCE NEB Last administered on at 08:24; Start 06/15/18 at 08:15; Stop 06/15/18 at 08:16; Status DC Methylprednisolone Sodium Succinate (SOLU-Medrol 125MG VIAL) 125 mg 1X ONCE IV Last administered on 06/15/18at 08:46; Start 06/15/18 at 09:00; Stop 06/15/18 at 09:01; Status DC Vancomycin HCl (Vanco Per Pharmacy) 1 each PRN DAILY PRN MC SEE COMMENTS Last administered on 06/17/18at 16:09; Start 06/15/18 at 08:45 Piperacillin Sod/ Tazobactam Sod (Zosyn Per Pharmacy) 1 each PRN DAILY PRN MC SEE COMMENTS; Start 06/15/18 at 08:45 Sodium Chloride 500 ml @ 500 mls/hr 1X ONCE IV Last administered on 06/15/18at 08:47; Start 06/15/18 at 08:45; Stop 06/15/18 at 09:44; Status DC Vancomycin HCl 2 gm/Sodium Chloride 500 ml @ 250 mls/hr 1X ONCE IV Last administered on 06/15/18at 09:22; Start 06/15/18 at 09:15; Stop 06/15/18 at 11:14; Status DC Piperacillin Sod/ Tazobactam Sod 4.5 gm/Sodium Chloride 100 ml @ 200 mls/hr 1X ONCE IV Last administered on 06/15/18at 08:47; Start 06/15/18 at 09:15; Stop 06/15/18 at 09:44; Status DC Ondansetron HCl (Zofran) 4 mg PRN Q8HRS PRN IV NAUSEA/VOMITING; Start 06/15/18 at 08:45; Stop 06/16/18 at 08:44; Status DC Morphine Sulfate (Morphine Sulfate) 2 mg PRN Q2HR PRN IV PAIN; Start 06/15/18 at 08:45; Stop 06/16/18 at 08:44; Status DC Sodium Chloride 1,000 ml @ 100 mls/hr Q10H IV Last administered on 06/15/18at 09:17; Start 06/15/18 at 08:35; Stop 06/15/18 at 12:34; Status DC Albuterol/ Ipratropium (Duoneb) 3 ml RTQID NEB Last administered on 06/18/18at 07:36; Start 06/15/18 at 08:45 Acetaminophen (Tylenol) 500 mg PRN Q6HRS PRN PO MILD PAIN / TEMP; Start 06/15/18 at 08:45; Stop 06/15/18 at 14:08; Status DC Ondansetron HCl (Zofran) 4 mg PRN Q6HRS PRN IV NAUSEA/VOMITING; Start 06/15/18 at 08:45 Aspirin (Ecotrin) 81 mg DAILY PO Last administered on 06/15/18 09:00; Start 06/15/18 at 09:00; Stop 06/16/18 at 08:34; Status DC Digoxin (Lanoxin) 125 mcg DAILY PO Last administered on 06/17/18 08:44; Start 06/15/18 at 09:00 Furosemide (Lasix) 40 mg DAILY PO Last administered on 06/17/18 08:44; Start 06/15/18 at 09:00 Gabapentin (Neurontin) 300 mg DAILY PO Last administered on 06/18/18 08:38; Start 06/15/18 at 09:00 Lisinopril (Prinivil) 20 mg DAILY PO Last administered on 06/17/18 08:45; Start 06/15/18 at 09:00 Metoprolol Tartrate (Lopressor) 50 mg BID PO Last administered on 06/17/18 21:28; Start 06/15/18 at 09:00 Acetaminophen (Tylenol) 500 mg PRN Q6HRS PRN PO MILD PAIN / TEMP; Start 06/15/18 at 09:30 Atorvastatin Calcium (Lipitor) 80 mg QHS PO Last administered on 06/17/18 21:27; Start 06/15/18 at 21:00 Hydralazine HCl (Apresoline) 10 mg TID PO Last administered on 06/17/18 21:28; Start 06/15/18 at 10:00 Non-Formulary Medication (Insulin Aspart (Novolog)) 10 unit DAILYAC SQ ; Start 06/16/18 at 07:30; Status UNV Levetiracetam (Keppra) 1,250 mg BID PO Last administered on 06/18/18 08:39; Start 06/15/18 at 09:30 Multivitamins (Thera M Plus) 1 tab DAILY PO Last administered on 06/18/18 08:38; Start 06/15/18 at 09:30 Risperidone (RisperDAL) 1 mg QHS PO Last administered on 06/17/18 21:27; Start 06/15/18 at 09:45 Non-Formulary Medication (Rosuvastatin Calcium (Crestor)) 40 mg DAILY PO ; Start 06/15/18 at 09:00; Status UNV Zonisamide (Zonegran) 400 mg DAILY PO Last administered on 06/18/18 08:38; Start 06/15/18 at 09:30 Insulin Human Lispro (HumaLOG) 0-9 UNITS TIDWMEALS SQ Last administered on 06/17/18at 17:43; Start 06/15/18 at 09:20 Dextrose (Dextrose 50%-Water Syringe) 12.5 gm PRN Q15MIN PRN IV SEE COMMENTS; Start 06/15/18 at 08:45 Warfarin Sodium (Coumadin Per Pharmacy) 1 each PRN DAILY PRN MC SEE COMMENTS Last administered on 06/17/18 09:05; Start 06/15/18 at 08:45 Warfarin Sodium (Coumadin - No Dose Today) 1 each 1X WARF ONCE MC ; Start 06/15/18 at 16:00; Stop 06/15/18 at 16:01; Status DC Piperacillin Sod/ Tazobactam Sod 4.5 gm/Sodium Chloride 100 ml @ 200 mls/hr Q6HRS IV Last administered on 06/18/18 06:12; Start 06/15/18 at 17:00 Vancomycin HCl 1.5 gm/Sodium Chloride 500 ml @ 250 mls/hr Q18H IV Last administered on 06/16/18at 21:49; Start 06/16/18 at 03:00; Stop 06/17/18 at 16:03; Status DC Vancomycin HCl (Vancomycin Trough Level) 1 each 1X ONCE MC Last administered on 06/17/18at 14:30; Start 06/17/18 at 14:30; Stop 06/17/18 at 14:31; Status DC Aspirin (Ecotrin) 81 mg DAILY PO Last administered on 06/18/18at 08:39; Start 06/16/18 at 09:00 Phytonadione (Mephyton Oral Soln) 5 mg 1X ONCE PO Last administered on 06/16/18at 11:02; Start 06/16/18 at 11:00; Stop 06/16/18 at 11:01; Status DC Warfarin Sodium (Coumadin - No Dose Today) 1 each 1X WARF ONCE MC ; Start 06/16/18 at 16:00; Stop 06/16/18 at 16:01; Status DC Oxycodone/ Acetaminophen (Percocet 5/325) 1 tab PRN Q4HRS PRN PO SEVERE PAIN Last administered on 06/17/18 03:26; Start 06/17/18 at 03:15 Warfarin Sodium (Coumadin) 3 mg 1X WARF ONCE PO Last administered on 06/17/18at 17:29; Start 06/17/18 at 16:00; Stop 06/17/18 at 16:01; Status DC Vancomycin HCl 1.5 gm/Sodium Chloride 500 ml @ 250 mls/hr Q24H IV Last administered on 06/17/18at 21:34; Start 06/17/18 at 21:00 Vancomycin HCl (Vancomycin Trough Level) 1 each 1X ONCE MC ; Start 06/19/18 at 20:30; Stop 06/19/18 at 20:31 Albuterol Sulfate (Ventolin Neb Soln) 2.5 mg RTQID PRN IH WHEEZING Last administered on 06/17/18at 17:50; Start 06/17/18 at 17:30 Active Scripts Active Digoxin 125 Mcg Tablet 125 Mcg PO DAILY Furosemide 40 Mg Tablet 40 Mg PO DAILY Metoprolol Tartrate 50 Mg Tablet 50 Mg PO BID [Warfarin Sodium] 1 EACH Each 1 Each MC PRN DAILY PRN Lisinopril 20 Mg Tablet 20 Mg PO DAILY Duoneb 0.5-3(2.5) Mg/3 Ml (Albuterol/Ipratropium) 3 Ml Ampul.neb 3 Ml NEB Q4HRS W/A 30 Days Hydralazine Hcl 10 Mg Tablet 10 Mg PO TID Reported Zonisamide 100 Mg Capsule 400 Mg PO DAILY Percocet 5-325 Mg Tablet (Oxycodone/Acetaminophen) 1 Each Tablet 1 Tab PO PRN Q4HRS PRN Multivitamins (Multivitamin) 1 Each Tablet 1 Tab PO DAILY Levetiracetam 250 Mg Tablet 1,250 Mg PO BID Novolin N (Nph, Human Insulin Isophane) 100 Unit/1 Ml Vial Unknown Dose SQ Atorvastatin Calcium 80 Mg Tablet 1 Tab PO DAILY Acetaminophen 500 Mg Tablet 1 Tab PO PRN Q6HRS PRN Albuterol Sulfate Hfa Inhaler (Albuterol Sulfate) 8.5 Gm Hfa.aer.ad 2 Puff IH PRN Q6HRS PRN Aspirin Ec (Aspirin) 325 Mg Tablet.dr 81 Mg PO DAILY Crestor (Rosuvastatin Calcium) 40 Mg Tablet 40 Mg PO DAILY Warfarin Sodium 5 Mg Tablet 6 Mg PO DAILY Warfarin Sodium 2.5 Mg Tablet 2.5 Mg PO 3X/WEEK monday,monday, Gabapentin (Gabapentin) 300 Mg Capsule 300 Mg PO DAILY Risperidone 1 Mg Tablet 1 Mg PO HS Novolog (Insulin Aspart) 100 Unit/1 Ml Vial 10 Unit SQ DAILYAC Oxycodone-Acetaminophen 10-325 (Oxycodone Hcl/Acetaminophen) 1 Each Tablet 1 Each PO PRN Q6HRS Potassium 99 Mg Tablet 20 Meq PO DAILY Prednisone (Prednisone) 10 Mg Tablet 10 Mg PO DAILY Metformin Hcl 500 Mg Tablet 1,000 Mg PO BIDBFRMEAL Vitals/I & O Vital Sign - Last 24 Hours 06/17/18 06/17/18 06/17/18 06/17/18 09:00 09:51 10:00 11:00 Temp 98.3 98.0 97.9 98.3 98.0 97.9 Pulse 66 65 65 Resp 18 18 17 B/P (MAP) 127/57 (80) 132/48 (76) Pulse Ox 95 96 98 O2 Delivery Nasal Cannula Nasal Cannula Nasal Cannula Nasal Cannula O2 Flow Rate 3.0 3.0 3.0 3.0 06/17/18 06/17/18 06/17/18 06/17/18 12:00 12:00 14:00 15:00 Temp 97.8 97.8 97.8 97.8 Pulse 65 70 70 Resp 16 B/P (MAP) 90/41 (57) 91/42 91/42 (58) Pulse Ox 99 95 O2 Delivery Nasal Cannula Nasal Cannula Nasal Cannula O2 Flow Rate 3.0 3.0 3.0 06/17/18 06/17/18 06/17/18 06/17/18 16:20 17:51 19:04 20:15 Temp 97.4 97.4 Pulse 66 Resp 20 B/P (MAP) 147/27 (67) Pulse Ox 100 O2 Delivery Nasal Cannula Nasal Cannula Nasal Cannula Nasal Cannula O2 Flow Rate 3.0 3.0 3.0 3.0 06/17/18 06/17/18 06/17/18 06/17/18 20:26 21:28 21:28 23:00 Temp 98.8 98.8 Pulse 67 67 66 Resp 18 B/P (MAP) 178/64 178/64 134/41 (72) Pulse Ox 99 100 O2 Delivery Nasal Cannula Nasal Cannula O2 Flow Rate 3.0 3.0 06/18/18 06/18/18 06/18/18 03:00 07:00 07:38 Temp 98.1 97.4 98.1 97.4 Pulse 66 53 Resp 18 16 B/P (MAP) 129/45 (73) 96/50 (65) Pulse Ox 97 96 97 O2 Delivery Nasal Cannula Nasal Cannula Nasal Cannula O2 Flow Rate 3.0 3.0 3.0 Intake and Output 06/17/18 06/17/18 06/18/18 15:00 23:00 07:00 Intake Total 900 ml Balance 900 ml NEHAL NELSON MD June 18, 2018 08:50
[2018-06-18] MEDS: VANCOMYCIN PER PHARMACY MC PRN (09:38)
--- NOTE | 2018-06-18 09:50 | NUR ---
IP: Pt has a hx of + mrsa screen, blood and ankle wound on 05/18/18. Pt to be in contact precautions until there are 2 negatives from screen and blood 7 days apart and no open wounds.
--- NOTE | 2018-06-18 10:19 | NUR ---
SW following for discharge planning. Discussed with RN, pt is from home with . Pt recently at [facility] and was discharged home with [facility] for IV Dapto, and [facility], as well as a shyla lift, hospital bed, and oxygen through [employer]. [facility] denied pt to go to LTAC last admission. AMAURI faxed face sheet to [facility] to try for LTAC screen again, per doctor request. AMAURI will continue to follow.
[2018-06-18] MEDS: POTASSIUM CHLORIDE 20 MEQ TABLET.ER. PO SCH (10:44)
[2018-06-18] MEDS: oxyCODONE/APAP 5/325 1 TAB TABLET PO PRN ×2 (10:44→22:21)
--- NOTE | 2018-06-18 10:46 | PDOC ---
Infectious Disease Note Subjective Subjective Transferred to med-surg Says breathing "so-so" Some congestion and cough Has some discomfort with eating 2L O2 +BM No F/C/S/N/V ROS ROS per HPI Vital Sign Vital Signs Vital Signs Date Time Temp Pulse Resp B/P (MAP) Pulse Ox O2 Delivery O2 Flow Rate FiO2 06/18/18 08:00 Nasal Cannula 3.0 06/18/18 07:38 97 06/18/18 07:00 97.4 53 16 96/50 (65) 97.4 Physical Exam PHYSICAL EXAM GENERAL: Propped up in bed, alert, NAD HEENT: Pupils equally round and reactive. Normal conjunctivae. Oral oropharynx pink and moist. No thrush. NECK: Supple. LUNGS: Improved aeration HEART: S1 and S2 irregular. ABDOMEN: Obese, soft and nontender with bowel sounds present. GENITOURINARY: Indwelling Crawley out. EXTREMITIES: Left hand is swollen. No redness, warmth or limited range of motion. Left lower extremity 2+ edema. No cyanosis. Right BKA incision healing well, stables still in place. no redness or drainage SKIN: Warm without generalized rash. Multiple tattoos. A small superficial ulcer, left lateral malleolus area without signs of infection. NEUROLOGIC: Alert and responding appropriately. Poor historian. RUE-PICC (POA) without signs of any complications. Labs Lab Laboratory Tests Test 06/17/18 12:16 06/17/18 15:29 06/17/18 17:11 06/17/18 21:31 Glucose (Fingerstick) 185 mg/dL (70-99) 171 mg/dL (70-99) 176 mg/dL (70-99) Vancomycin Level Trough 24.7 mcg/mL (10.0-20.0) Vancomycin Last Dose Date 06/17/18 Vancomycin Last Dose Time 0200 Test 06/18/18 06:10 06/18/18 07:33 White Blood Count 11.1 x10^3/uL (4.0-11.0) Red Blood Count 3.05 x10^6/uL (4.30-5.70) Hemoglobin 8.2 g/dL (13.0-17.5) Hematocrit 25.9 % (39.0-53.0) Mean Corpuscular Volume 85 fL (79-100) Mean Corpuscular Hemoglobin 27 pg (25-35) Mean Corpuscular Hemoglobin Concent 32 g/dL (31-37) Red Cell Distribution Width 17.0 % (11.5-14.5) Platelet Count 327 x10^3/uL (140-400) Neutrophils (%) (Auto) 80 % (31-73) Lymphocytes (%) (Auto) 5 % (24-48) Monocytes (%) (Auto) 11 % (0-9) Eosinophils (%) (Auto) 4 % (0-3) Basophils (%) (Auto) 0 % (0-3) Neutrophils # (Auto) 8.9 x10^3uL (1.8-7.7) Lymphocytes # (Auto) 0.6 x10^3/uL (1.0-4.8) Monocytes # (Auto) 1.2 x10^3/uL (0.0-1.1) Eosinophils # (Auto) 0.5 x10^3/uL (0.0-0.7) Basophils # (Auto) 0.0 x10^3/uL (0.0-0.2) Prothrombin Time 18.2 SEC (11.7-14.0) Prothromb Time International Ratio 1.5 (0.8-1.1) Sodium Level 143 mmol/L (136-145) Potassium Level 3.4 mmol/L (3.5-5.1) Chloride Level 107 mmol/L (98-107) Carbon Dioxide Level 28 mmol/L (21-32) Anion Gap 8 (6-14) Blood Urea Nitrogen 19 mg/dL (8-26) Creatinine 1.2 mg/dL (0.7-1.3) Estimated GFR (Cockcroft-Gault) 58.9 Glucose Level 161 mg/dL (70-99) Calcium Level 8.3 mg/dL (8.5-10.1) Magnesium Level 1.9 mg/dL (1.8-2.4) Glucose (Fingerstick) 142 mg/dL (70-99) FINDINGS: There is no sonographic evidence of venous thrombosis involving the visualized venous structures of the left upper extremity. IMPRESSION: Negative study. Micro 06/15/18 Blood Culture - Preliminary, Resulted NO GROWTH AFTER 3 DAY 06/15. URINE CULTURE RES 1 Preliminary Gram negative rods Greater than 100,000 colony forming units per mL Objective Assessment Right perihilar infiltrate. Leukocytosis, s/p PRBCs Chronic Crawley with pyuria, POA. Crawley now out, UC GNR h/o MRSA bacteremia with sepsis from 05/18. Discharged on Dapto till 07/02 -CRYSTAL done no vegetations 05/21; BC from 05/20 & onward were neg Acute on chronic CHF h/o MRSA and Enterobacter ( R Augmentin/cefuroxime) infection h/o PSA ( R quinolones & I imipenem) infection Bioprosthetic aortic valve A- fib, anticoagulation on warfarin Diabetes Type II Seizure disorder, on Keppra Anemia s/p PRBCs Plan Plan of Care continue vanc and Zosyn for now - Adjust Zosyn dose Trough 24.7 Monitor renal function closely -labs in am Repeat Abd U/S He was previously on Dapto at home for h/o MRSA bacteremia. He will need to continue treatment till July 02. CPK 34 Wound care team following PICC maintenance care Awaiting GNR fro urine ID/susceptibilities Leg elevation Needs to remain in isolation for MRSA D/w nursing D/w Attending Co-Sign Attending Co-Sign The patient was seen and interviewed as well as examined at the bedside. The chart was reviewed. The case was discussed. Agree with the plan of care. GIO GASPAR APRN June 18, 2018 10:46 MACARIO PRIEST MD June 18, 2018 14:07
--- NOTE | 2018-06-18 10:48 | NUR ---
Pharmacy Warfarin Dosing Note S:Pharmacy consulted to assist with anticoagulation therapy started with target INR: 2 -3 O:VICKI BRAUN is a 78 year old M with Atrial Fibrillation Bioprosthetic Valve LABS: Last INR: 1.5 Last HGB: 8.2 Last HCT: 25.9 Last PLT: 327 Last dose of 3 mg given on 06/17/18 at 1729 Previous Regimen: Vitamin K given: Y Drug Interaction Changes: Ongoing Drug Interactions: A:INR of 1.5 is below desired range. Target range for this patient is: 2 -3 P: Warfarin dose: 5 mg Today at 1600. Bridge Therapy: Next INR due tomorrow. Pharmacy anticoagulation service will continue to follow. George Foley [facility] [place], 06/18/18 [id number]
[2018-06-18 11:00] VITALS: BP 133/49
[2018-06-18] MEDS ORDERED: LACTOBACILLUS RHAMNOSUS GG 1 CAPSULE. PO SCH (12:00)
[2018-06-18 15:00] VITALS: BP 128/48
[2018-06-18] MEDS ORDERED: WARFARIN 5 MG TABLET. PO ONE (16:00)
[2018-06-18] MEDS: PIPERACILLIN/TAZOBACTAM 3.375 GM in IV NORMAL SALINE 50ML 50 ML IV SCH (18:16)
[2018-06-18 19:00] VITALS: BP 199/57
[2018-06-18] MEDS: ATORVASTATIN CALCIUM 40 MG TABLET. PO SCH (22:20)
[2018-06-18] MEDS: risperiDONE 1 MG TABLET. PO SCH (22:21)
[2018-06-18] MEDS: VANCOMYCIN 1.5 GM in IV NORMAL SALINE 500ML BAG 500 ML IV SCH (22:56)
[2018-06-18 23:00] VITALS: BP 168/42
[2018-06-19] VITALS (7 sets, daily range): BP systolic 121–165; BP diastolic 30–61
[2018-06-19] MEDS: oxyCODONE/APAP 5/325 1 TAB TABLET PO PRN ×3 (00:48→14:12)
[2018-06-19] MEDS: PIPERACILLIN/TAZOBACTAM 3.375 GM in IV NORMAL SALINE 50ML 50 ML IV SCH ×2 (00:48→06:43)
--- NOTE | 2018-06-19 01:33 | NUR ---
Blue lumen on PICC line does not give blood return. Addendum: 06/19/18 at 0139 by SUDARSHAN DUNN RN Amended: Links added.
[2018-06-19] MEDS: IPRATRPIUM/ALBUTEROL 0.5/2.5MG 3 ML NEBU. NEB SCH ×4 (07:19→20:14)
--- NOTE | 2018-06-19 08:09 | RAD ---
Examination: ABDOMEN LTD History: Gallbladder distention Comparison/Correlation: 05/27/2018 Limited abdominal ultrasound exam Findings: Limited right upper quadrant ultrasound exam was performed. Fatty infiltration of the liver is present. Portal venous flow is normal. Inferior cava is unremarkable. Gallbladder wall thickness of 0.3 cm noted. No cholelithiasis. No findings of cholecystitis. There is sludge in the gallbladder. Common bile that measures up to 0.6 cm diameter. Right kidney measures 11.7 cm x 5.2 cm 4.5 cm. Small right renal superior pole cyst is present measuring 3.3 cm diameter. Adjacent smaller cystic structure measuring up to 1.5 cm diameter is also noted. This alternatively may represent a single septated cyst.. Right kidney is slightly echogenic echotexture. Renal cortical atrophy noted. No right hydronephrosis. No right upper quadrant ascites. Fatty infiltration of the proximal pancreas is present. Impression: Sludge in the gallbladder. No cholelithiasis or cholecystitis. No biliary dilatation. Electronically signed by: Tyrone Reynoso MD (06/19/2018 8:07 AM) [facility]
--- NOTE | 2018-06-19 08:24 | PDOC ---
PROGRESS NOTES Chief Complaint Chief Complaint Pneumonia with right perihilar infiltrate. Leukocytosis Chronic Crawley with pyuria MRSA bacteremia with sepsis from 05/18. D/c Dapto till 07/02 Acute on chronic CHF MRSA and Enterobacter ( R Augmentin/cefuroxime) infection PSA ( R quinolones & I imipenem) infection Bioprosthetic aortic valve A- fib Anticoagulation on warfarin Diabetes Type II Seizure disorder, on Keppra Noncompliance New anemia with possible GI bleed s/p blood transfusion History of Present Illness History of Present Illness Patient seen and examined. I discussed the case at length with his and RN, AMAURI. INR 1.8. Sitting up in chair this morning, breathing a bit better He denies dark stools or bloody stools or hemoptysis. Urine returned with 100K GNR - e coli sensitive. Wishes for SNF on d/c, needs daptomycin until 07/02 and ceftin until 06/22. CXR still with bilateral opacities. Plan: Antibiotics per ID, needs a bit more diuresis, D/C to SNF in the next day or so Vitals Vitals Vital Signs Date Time Temp Pulse Resp B/P (MAP) Pulse Ox O2 Delivery O2 Flow Rate FiO2 06/19/18 07:45 Nasal Cannula 3.0 06/19/18 07:00 97.5 79 17 134/58 (83) 97 97.5 Physical Exam Physical Exam GENERAL: Propped up in bed, alert, NAD HEENT: Pupils equally round and reactive. Normal conjunctivae. Oral oropharynx pink and moist. No thrush. NECK: Supple. LUNGS: Improved aeration HEART: S1 and S2 irregular. ABDOMEN: Obese, soft and nontender with bowel sounds present. GENITOURINARY: Indwelling Crawley out. EXTREMITIES: Left hand is swollen. No redness, warmth or limited range of motion. Left lower extremity 2+ edema. No cyanosis. Right BKA incision healing well, stables still in place. no redness or drainage SKIN: Warm without generalized rash. Multiple tattoos. A small superficial ulcer, left lateral malleolus area without signs of infection. NEUROLOGIC: Alert and responding appropriately. Poor historian. RUE-PICC (POA) without signs of any complications. 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 taken down in the distant past) Extremities: Other (he is bilateral amputee with wound dressing he also has a s tump protector on the right and a knee brace on the right) Labs LABS Laboratory Tests Test 06/18/18 11:41 06/18/18 16:46 06/18/18 20:40 06/19/18 07:12 Glucose (Fingerstick) 155 mg/dL (70-99) 160 mg/dL (70-99) 165 mg/dL (70-99) 160 mg/dL (70-99) Assessment and Plan Assessmemt and Plan Problems Medical Problems: (1) Pneumonia Status: Acute (2) Sepsis Status: Acute (3) Tachycardia Status: Acute Comment Review of Relevant I have reviewed the following items navi (where applicable) has been applied. Labs Laboratory Tests Test 06/17/18 12:16 06/17/18 15:29 06/17/18 17:11 06/17/18 21:31 Glucose (Fingerstick) 185 mg/dL (70-99) 171 mg/dL (70-99) 176 mg/dL (70-99) Vancomycin Level Trough 24.7 mcg/mL (10.0-20.0) Vancomycin Last Dose Date 06/17/18 Vancomycin Last Dose Time 0200 Test 06/18/18 06:10 06/18/18 07:33 06/18/18 11:41 06/18/18 16:46 White Blood Count 11.1 x10^3/uL (4.0-11.0) Red Blood Count 3.05 x10^6/uL (4.30-5.70) Hemoglobin 8.2 g/dL (13.0-17.5) Hematocrit 25.9 % (39.0-53.0) Mean Corpuscular Volume 85 fL (79-100) Mean Corpuscular Hemoglobin 27 pg (25-35) Mean Corpuscular Hemoglobin Concent 32 g/dL (31-37) Red Cell Distribution Width 17.0 % (11.5-14.5) Platelet Count 327 x10^3/uL (140-400) Neutrophils (%) (Auto) 80 % (31-73) Lymphocytes (%) (Auto) 5 % (24-48) Monocytes (%) (Auto) 11 % (0-9) Eosinophils (%) (Auto) 4 % (0-3) Basophils (%) (Auto) 0 % (0-3) Neutrophils # (Auto) 8.9 x10^3uL (1.8-7.7) Lymphocytes # (Auto) 0.6 x10^3/uL (1.0-4.8) Monocytes # (Auto) 1.2 x10^3/uL (0.0-1.1) Eosinophils # (Auto) 0.5 x10^3/uL (0.0-0.7) Basophils # (Auto) 0.0 x10^3/uL (0.0-0.2) Prothrombin Time 18.2 SEC (11.7-14.0) Prothromb Time International Ratio 1.5 (0.8-1.1) Sodium Level 143 mmol/L (136-145) Potassium Level 3.4 mmol/L (3.5-5.1) Chloride Level 107 mmol/L (98-107) Carbon Dioxide Level 28 mmol/L (21-32) Anion Gap 8 (6-14) Blood Urea Nitrogen 19 mg/dL (8-26) Creatinine 1.2 mg/dL (0.7-1.3) Estimated GFR (Cockcroft-Gault) 58.9 Glucose Level 161 mg/dL (70-99) Calcium Level 8.3 mg/dL (8.5-10.1) Magnesium Level 1.9 mg/dL (1.8-2.4) Glucose (Fingerstick) 142 mg/dL (70-99) 155 mg/dL (70-99) 160 mg/dL (70-99) Test 06/18/18 20:40 06/19/18 07:12 Glucose (Fingerstick) 165 mg/dL (70-99) 160 mg/dL (70-99) Laboratory Tests Test 06/18/18 11:41 06/18/18 16:46 06/18/18 20:40 06/19/18 07:12 Glucose (Fingerstick) 155 mg/dL (70-99) 160 mg/dL (70-99) 165 mg/dL (70-99) 160 mg/dL (70-99) Microbiology 06/15/18 Blood Culture - Preliminary, Resulted NO GROWTH AFTER 3 DAYS 06/15/18 Urine Culture - Final, Complete 06/15/18 Urine Culture Result 1 (FELICITA) - Final, Complete 06/15/18 Antimicrobic Susceptibility - Final, Complete Medications Current Medications Albuterol/ Ipratropium (Duoneb) 3 ml 1X ONCE NEB Last administered on 06/15/18at 08:24; Start 06/15/18 at 08:15; Stop 06/15/18 at 08:16; Status DC Methylprednisolone Sodium Succinate (SOLU-Medrol 125MG VIAL) 125 mg 1X ONCE IV Last administered on 06/15/18at 08:46; Start 06/15/18 at 09:00; Stop 06/15/18 at 09:01; Status DC Vancomycin HCl (Vanco Per Pharmacy) 1 each PRN DAILY PRN MC SEE COMMENTS Last administered on 06/18/18at 09:38; Start 06/15/18 at 08:45 Piperacillin Sod/ Tazobactam Sod (Zosyn Per Pharmacy) 1 each PRN DAILY PRN MC SEE COMMENTS; Start 06/15/18 at 08:45; Stop 06/18/18 at 13:55; Status DC Sodium Chloride 500 ml @ 500 mls/hr 1X ONCE IV Last administered on 06/15/18at 08:47; Start 06/15/18 at 08:45; Stop 06/15/18 at 09:44; Status DC Vancomycin HCl 2 gm/Sodium Chloride 500 ml @ 250 mls/hr 1X ONCE IV Last administered on 06/15/18at 09:22; Start 06/15/18 at 09:15; Stop 06/15/18 at 11:14; Status DC Piperacillin Sod/ Tazobactam Sod 4.5 gm/Sodium Chloride 100 ml @ 200 mls/hr 1X ONCE IV Last administered on 06/15/18at 08:47; Start 06/15/18 at 09:15; Stop 06/15/18 at 09:44; Status DC Ondansetron HCl (Zofran) 4 mg PRN Q8HRS PRN IV NAUSEA/VOMITING; Start 06/15/18 at 08:45; Stop 06/16/18 at 08:44; Status DC Morphine Sulfate (Morphine Sulfate) 2 mg PRN Q2HR PRN IV PAIN; Start 06/15/18 at 08:45; Stop 06/16/18 at 08:44; Status DC Sodium Chloride 1,000 ml @ 100 mls/hr Q10H IV Last administered on 06/15/18at 09:17; Start 06/15/18 at 08:35; Stop 06/15/18 at 12:34; Status DC Albuterol/ Ipratropium (Duoneb) 3 ml RTQID NEB Last administered on 06/19/18at 07:19; Start 06/15/18 at 08:45 Acetaminophen (Tylenol) 500 mg PRN Q6HRS PRN PO MILD PAIN / TEMP; Start 06/15/18 at 08:45; Stop 06/15/18 at 14:08; Status DC Ondansetron HCl (Zofran) 4 mg PRN Q6HRS PRN IV NAUSEA/VOMITING; Start 06/15/18 at 08:45 Aspirin (Ecotrin) 81 mg DAILY PO Last administered on 06/15/18 09:00; Start at 09:00; Stop 06/16/18 at 08:34; Status DC Digoxin (Lanoxin) 125 mcg DAILY PO Last administered on 06/18/18 12:51; Start 06/15/18 at 09:00 Furosemide (Lasix) 40 mg DAILY PO Last administered on 06/18/18 12:51; Start 06/15/18 at 09:00 Gabapentin (Neurontin) 300 mg DAILY PO Last administered on 06/18/18at 08:38; Start 06/15/18 at 09:00 Lisinopril (Prinivil) 20 mg DAILY PO Last administered on 06/17/18 08:45; Start 06/15/18 at 09:00 Metoprolol Tartrate (Lopressor) 50 mg BID PO Last administered on 06/18/18 22:23; Start 06/15/18 at 09:00 Acetaminophen (Tylenol) 500 mg PRN Q6HRS PRN PO MILD PAIN / TEMP; Start 06/15/18 at 09:30 Atorvastatin Calcium (Lipitor) 80 mg QHS PO Last administered on 06/18/18 22:20; Start 06/15/18 at 21:00 Hydralazine HCl (Apresoline) 10 mg TID PO Last administered on 06/18/18 22:22; Start 06/15/18 at 10:00 Non-Formulary Medication (Insulin Aspart (Novolog)) 10 unit DAILYAC SQ ; Start 06/16/18 at 07:30; Status UNV Levetiracetam (Keppra) 1,250 mg BID PO Last administered on 06/18/18 22:20; Start 06/15/18 at 09:30 Multivitamins (Thera M Plus) 1 tab DAILY PO Last administered on 06/18/18 08:3 8; Start 06/15/18 at 09:30 Risperidone (RisperDAL) 1 mg QHS PO Last administered on 06/18/18 22:21; Start 06/15/18 at 09:45 Non-Formulary Medication (Rosuvastatin Calcium (Crestor)) 40 mg DAILY PO ; Start 06/15/18 at 09:00; Status UNV Zonisamide (Zonegran) 400 mg DAILY PO Last administered on 06/18/18 08:38; Start 06/15/18 at 09:30 Insulin Human Lispro (HumaLOG) 0-9 UNITS TIDWMEALS SQ Last administered on 06/18/18 12:52; Start 06/15/18 at 09:20 Dextrose (Dextrose 50%-Water Syringe) 12.5 gm PRN Q15MIN PRN IV SEE COMMENTS; Start 06/15/18 at 08:45 Warfarin Sodium (Coumadin Per Pharmacy) 1 each PRN DAILY PRN MC SEE COMMENTS Last administered on 06/18/18at 10:46; Start 06/15/18 at 08:45 Warfarin Sodium (Coumadin - No Dose Today) 1 each 1X WARF ONCE MC ; Start 06/15/18 at 16:00; Stop 06/15/18 at 16:01; Status DC Piperacillin Sod/ Tazobactam Sod 4.5 gm/Sodium Chloride 100 ml @ 200 mls/hr Q6HRS IV Last administered on 06/18/18 12:51; Start 06/15/18 at 17:00; Stop 06/18/18 at 13:55; Status DC Vancomycin HCl 1.5 gm/Sodium Chloride 500 ml @ 250 mls/hr Q18H IV Last administered on 06/16/18 21:49; Start 06/16/18 at 03:00; Stop 06/17/18 at 16:03; Status DC Vancomycin HCl (Vancomycin Trough Level) 1 each 1X ONCE MC Last administered on 06/17/18at 14:30; Start 06/17/18 at 14:30; Stop 06/17/18 at 14:31; Status DC Aspirin (Ecotrin) 81 mg DAILY PO Last administered on 06/18/18at 08:39; Start 06/16/18 at 09:00 Phytonadione (Mephyton Oral Soln) 5 mg 1X ONCE PO Last administered on 06/16/18at 11:02; Start 06/16/18 at 11:00; Stop 06/16/18 at 11:01; Status DC Warfarin Sodium (Coumadin - No Dose Today) 1 each 1X WARF ONCE MC ; Start 06/16 at 16:00; Stop 06/16/18 at 16:01; Status DC Oxycodone/ Acetaminophen (Percocet 5/325) 1 tab PRN Q4HRS PRN PO SEVERE PAIN L ast administered on 06/19/18at 00:48; Start 06/17/18 at 03:15 Warfarin Sodium (Coumadin) 3 mg 1X WARF ONCE PO Last administered on 06/17/18at 17:29; Start 06/17/18 at 16:00; Stop 06/17/18 at 16:01; Status DC Vancomycin HCl 1.5 gm/Sodium Chloride 500 ml @ 250 mls/hr Q24H IV Last administered on 06/18/18at 22:56; Start 06/17/18 at 21:00 Vancomycin HCl (Vancomycin Trough Level) 1 each 1X ONCE MC ; Start 06/19/18 at 20:30; Stop 06/19/18 at 20:31 Albuterol Sulfate (Ventolin Neb Soln) 2.5 mg RTQID PRN IH WHEEZING Last administered on 06/17/18at 17:50; Start 06/17/18 at 17:30 Potassium Chloride (Klor-Con) 40 meq DAILY PO Last administered on 06/18/18at 10:44; Start 06/18/18 at 09:00 Warfarin Sodium (Coumadin) 5 mg 1X WARF ONCE PO Last administered on 06/18/18at 22:21; Start 06/18/18 at 16:00; Stop 06/18/18 at 16:01; Status DC Lactobacillus Rhamnosus (Culturelle) 1 cap BID PO ; Start 06/18/18 at 12:00; Status Cancel Piperacillin Sod/ Tazobactam Sod 3.375 gm/Sodium Chloride 50 ml @ 100 mls/hr Q6HRS IV Last administered on 06/19/18at 06:43; Start 06/18/18 at 18:00 Active Scripts Active Digoxin 125 Mcg Tablet 125 Mcg PO DAILY Furosemide 40 Mg Tablet 40 Mg PO DAILY Metoprolol Tartrate 50 Mg Tablet 50 Mg PO BID [Warfarin Sodium] 1 EACH Each 1 Each MC PRN DAILY PRN Lisinopril 20 Mg Tablet 20 Mg PO DAILY Duoneb 0.5-3(2.5) Mg/3 Ml (Albuterol/Ipratropium) 3 Ml Ampul.neb 3 Ml NEB Q4HRS W/A 30 Days Hydralazine Hcl 10 Mg Tablet 10 Mg PO TID Reported Zonisamide 100 Mg Capsule 400 Mg PO DAILY Percocet 5-325 Mg Tablet (Oxycodone/Acetaminophen) 1 Each Tablet 1 Tab PO PRN Q4HRS PRN Multivitamins (Multivitamin) 1 Each Tablet 1 Tab PO DAILY Levetiracetam 250 Mg Tablet 1,250 Mg PO BID Novolin N (Nph, Human Insulin Isophane) 100 Unit/1 Ml Vial Unknown Dose SQ Atorvastatin Calcium 80 Mg Tablet 1 Tab PO DAILY Acetaminophen 500 Mg Tablet 1 Tab PO PRN Q6HRS PRN Albuterol Sulfate Hfa Inhaler (Albuterol Sulfate) 8.5 Gm Hfa.aer.ad 2 Puff IH PRN Q6HRS PRN Aspirin Ec (Aspirin) 325 Mg Tablet.dr 81 Mg PO DAILY Crestor (Rosuvastatin Calcium) 40 Mg Tablet 40 Mg PO DAILY Warfarin Sodium 5 Mg Tablet 6 Mg PO DAILY Warfarin Sodium 2.5 Mg Tablet 2.5 Mg PO 3X/WEEK monday,monday, Gabapentin (Gabapentin) 300 Mg Capsule 300 Mg PO DAILY Risperidone 1 Mg Tablet 1 Mg PO HS Novolog (Insulin Aspart) 100 Unit/1 Ml Vial 10 Unit SQ DAILYAC Oxycodone-Acetaminophen 10-325 (Oxycodone Hcl/Acetaminophen) 1 Each Tablet 1 Each PO PRN Q6HRS Potassium 99 Mg Tablet 20 Meq PO DAILY Prednisone (Prednisone) 10 Mg Tablet 10 Mg PO DAILY Metformin Hcl 500 Mg Tablet 1,000 Mg PO BIDBFRMEAL Vitals/I & O Vital Sign - Last 24 Hours 06/18/18 06/18/18 06/18/18 06/18/18 10:44 11:00 12:19 12:50 Temp 97.9 97.9 Pulse 109 109 Resp 18 B/P (MAP) 133/49 (77) 133/49 Pulse Ox 99 95 O2 Delivery Nasal Cannula Room Air Nasal Cannula O2 Flow Rate 3.0 3.0 06/18/18 06/18/18 06/18/18 06/18/18 12:51 12:51 15:00 16:00 Temp 97.7 97.7 Pulse 109 109 62 Resp 18 B/P (MAP) 133/49 133/49 128/48 (74) Pulse Ox 98 95 O2 Delivery Room Air Nasal Cannula O2 Flow Rate 3.0 06/18/18 06/18/18 06/18/18 06/18/18 19:00 20:00 20:03 22:21 Temp 98.7 98.7 Pulse 69 Resp 20 20 B/P (MAP) 199/57 (104) Pulse Ox 90 96 O2 Delivery Room Air Nasal Cannula Nasal Cannula Nasal Cannula O2 Flow Rate 3.0 3.0 06/18/18 06/18/18 06/18/18 06/19/18 22:22 22:23 23:00 00:48 Temp 98.0 98.0 Pulse 69 Resp 20 18 B/P (MAP) 199/57 199/57 168/42 (84) Pulse Ox 100 O2 Delivery Room Air Nasal Cannula O2 Flow Rate 3.0 06/19/18 06/19/18 06/19/18 06/19/18 01:48 03:00 07:00 07:19 Temp 98.0 97.5 98.0 97.5 Pulse 67 79 Resp 18 20 17 B/P (MAP) 141/30 (67) 134/58 (83) Pulse Ox 98 97 O2 Delivery Nasal Cannula Room Air Nasal Cannula Nasal Cannula O2 Flow Rate 3.0 3.0 3.0 06/19/18 07:45 O2 Delivery Nasal Cannula O2 Flow Rate 3.0 Intake and Output 06/18/18 06/18/18 06/19/18 14:59 22:59 06:59 Intake Total 380 ml Balance 380 ml NEHAL NELSON MD June 19, 2018 08:24
[2018-06-19] MEDS: levETIRAcetam 250 MG TABLET PO SCH ×2 (08:36→21:19)
[2018-06-19] MEDS: ZONISAMIDE 100 MG CAPSULE. PO SCH (08:36)
[2018-06-19] MEDS: ASPIRIN ENTERIC COATED 81 MG TABLET.DR. PO SCH (08:37)
[2018-06-19] MEDS: POTASSIUM CHLORIDE 20 MEQ TABLET.ER. PO SCH (08:37)
[2018-06-19] MEDS: hydrALAZINE 10 MG TABLET PO SCH ×3 (08:37→21:19)
[2018-06-19] MEDS: MULTIVITAMIN with MINERAL TABLET. PO SCH (08:37)
[2018-06-19] MEDS: DIGOXIN 125 MCG TABLET. PO SCH (08:37)
[2018-06-19] MEDS: METOPROLOL TART IMMED RELEASE 50 MG TABLET. PO SCH ×2 (08:38→21:19)
[2018-06-19] MEDS: LISINOPRIL 20 MG TABLET PO SCH (08:38)
[2018-06-19] MEDS: GABAPENTIN 300 MG CAPSULE. PO SCH (08:38)
[2018-06-19] MEDS: FUROSEMIDE 40 MG TABLET. PO SCH (08:38)
[2018-06-19] MEDS: INSULIN LISPRO 300 UNITS/3 ML INSULN.PEN. SQ SCH ×3 (08:46→17:05)
--- NOTE | 2018-06-19 09:16 | PDOC ---
Infectious Disease Note Subjective Subjective Says better today Less congestion and cough 2L O2 +BM this am No F/C/S/N/V ROS ROS o/w neg Vital Sign Vital Signs Vital Signs Date Time Temp Pulse Resp B/P (MAP) Pulse Ox O2 Delivery O2 Flow Rate FiO2 06/19/18 08:40 16 Nasal Cannula 06/19/18 08:38 79 134/58 06/19/18 07:45 3.0 06/19/18 07:00 97.5 97 97.5 Physical Exam PHYSICAL EXAM GENERAL: Propped up in bed, alert, NAD HEENT: Pupils equally round and reactive. Normal conjunctivae. Oral oropharynx pink and moist. No thrush. NECK: Supple. LUNGS: Improved aeration HEART: S1 and S2 irregular. ABDOMEN: Obese, soft and nontender with bowel sounds present. GENITOURINARY: Indwelling Crawley out. EXTREMITIES: Left hand is swollen. No redness, warmth or limited range of motion. Left lower extremity 1+ edema. No cyanosis. Right BKA incision healing well, stables still in place. no redness or drainage SKIN: Warm without generalized rash. Multiple tattoos. A small superficial ulcer, left lateral malleolus area without signs of infection - healing NEUROLOGIC: Alert and responding appropriately. Poor historian. RUE-PICC (POA) without signs of any complications. Labs Lab Laboratory Tests Test 06/18/18 11:41 06/18/18 16:46 06/18/18 20:40 06/19/18 07:12 Glucose (Fingerstick) 155 mg/dL (70-99) 160 mg/dL (70-99) 165 mg/dL (70-99) 160 mg/dL (70-99) Micro Urine cult 06/15 URINE CULTURE RES 1 Final Escherichia coli Greater than 100,000 colony forming units per mL Cefazolin with an FELICITA <=16 predicts susceptibility to the oral agents cefaclor, cefdinir, cefpodoxime, cefprozil, cefuroxime, cephalexin, and loracarbef when used for therapy of uncomplicated urinary tract infections due to E. coli, Klebsiella pneumoniae, and Proteus mirabilis. ANTIMICROBIAL SUSCEPTIBILITY Final Comment S = Susceptible; I = Intermediate; R = Resistant P = Positive; N = Negative MICS are expressed in micrograms per mL Antibiotic RSLT#1 RSLT#2 RSLT#3 RSLT#4 Amoxicillin/Clavulanic Acid I =16 Ampicillin R>=32 Cefazolin S Cefepime S<=0.12 Ceftriaxone S<=0.25 Cefuroxime S =4 Ciprofloxacin S<=0.25 Ertapenem S<=0.12 Gentamicin S<=1 Imipenem S<=0.25 Levofloxacin S<=0.12 Meropenem S<=0.25 Nitrofurantoin S<=16 Piperacillin/Tazobactam S<=4 Tetracycline S<=1 Tobramycin S<=1 Trimethoprim/Sulfa S<=20 Microbiology 06/15/18 Blood Culture - Preliminary, Resulted NO GROWTH AFTER 3 DAYS 06/15/18 Urine Culture - Final, Complete 06/15/18 Urine Culture Result 1 (FELICITA) - Final, Complete 06/15/18 Antimicrobic Susceptibility - Final, Complete Objective Assessment Right perihilar infiltrate. Leukocytosis, s/p PRBCs Chronic Crawley with pyuria, POA. Crawley now out - Ecoli h/o MRSA bacteremia with sepsis from 05/18. Discharged on Dapto till 07/02 -CRYSTAL done no vegetations 05/21; BC from 05/20 & onward were neg Acute on chronic CHF h/o MRSA and Enterobacter ( R Augmentin/cefuroxime) infection h/o PSA ( R quinolones & I imipenem) infection Bioprosthetic aortic valve A- fib, anticoagulation on warfarin Diabetes Type II Seizure disorder, on Keppra Anemia s/p PRBCs H/o cholecystitis - U/S 06/18 Sludge in the gallbladder. No cholelithiasis or cholecystitis. No biliary dilatation Plan Plan of Care Discontinue vanc and Zosyn Restart Dapto for MRSA. He will need to continue treatment till July 02. CPK 34 (06/16). Weekly labs -CBC/CPK/CMP fax to [phone]. F/u ID office 2 weeks [phone] add po Cephalexin through 06/24 Ellen pr Vascular Wound care team following PICC maintenance care Leg elevation Needs to remain in isolation for MRSA D/w nursing MACARIO PRIEST MD June 19, 2018 09:16
[2018-06-19 09:54] LABS: CALCIUM 8.4 mg/dL (8.5-10.1); CREATININE 1.1 mg/dL (0.7-1.3); GFR 65.1; POTASSIUM 3.6 mmol/L (3.5-5.1)
[2018-06-19 10:02] LABS: BASO % 0 % (0-3); EOS # 0.5 x10^3/uL (0.0-0.7); EOS % 6 % (0-3); HEMATOCRIT 29.5 % (39.0-53.0); HEMOGLOBIN 9.4 g/dL (13.0-17.5); LYMPH # 0.6 x10^3/uL (1.0-4.8); LYMPH % 7 % (24-48); MEAN CORPUSCULAR HEMOGLOBIN 27 pg (25-35); MEAN CORPUSCULAR HGB CONC 32 g/dL (31-37); MEAN CORPUSCULAR VOLUME 85 fL (79-100); MONO # 0.9 x10^3/uL (0.0-1.1); MONO % 10 % (0-9); NEUT # 7.3 x10^3uL (1.8-7.7); NEUT % 78 % (31-73); PLATELET COUNT 265 x10^3/uL (140-400); RED BLOOD COUNT 3.49 x10^6/uL (4.30-5.70); RED CELL DISTRIBUTION WIDTH 16.8 % (11.5-14.5); WHITE BLOOD COUNT 9.3 x10^3/uL (4.0-11.0)
[2018-06-19 10:05] LABS: PROTHROMBIN TIME PATIENT 20.5 SEC (11.7-14.0)
[2018-06-19] MEDS: DAPTOmycin (GENERIC) IVPB 600 MG in IV NORMAL SALINE 50ML 50 ML IV SCH (10:45)
--- NOTE | 2018-06-19 11:14 | PDOC ---
Provider Note Provider Note Vascular 78 year old male with remote history right below knee amputation 05/20/2018, we have been consulted regarding staple removal. S: Patient without complaints, asking when his matti will be removed. O: Awake and alert Right BKA incision dry and intact, well approximated with matti A/P: Right BKA well healed. Remove matti and place steristrips. Follow up with Vascular PRN. CAMRON METCALF DESK MONITOR June 19, 2018 11:14
--- NOTE | 2018-06-19 11:16 | NUR ---
Per Vascular verbal order all matti were removed from patients BKA and steri strips were placed by this RN. Patient tolerated well.
--- NOTE | 2018-06-19 11:52 | NUR ---
Pharmacy Warfarin Dosing Note S:Pharmacy consulted to assist with anticoagulation therapy started with target INR: 2 -3 O:VICKI BRAUN is a 78 year old M with Atrial Fibrillation Bioprosthetic Valve LABS: Last INR: 1.8 Last HGB: 8.2 Last HCT: 25.9 Last PLT: 327 Last dose of 5 mg given on 06/18/18 at 2221 Previous Regimen: Vitamin K given: Y Drug Interaction Changes: Ongoing Drug Interactions: A:INR of 1.8 is below desired range. Target range for this patient is: 2 -3 P: Warfarin dose: 5 mg Today at 1600 Bridge Therapy: Next INR due IN AM. Pharmacy anticoagulation service will continue to follow. GAIL GEORGES [facility], 06/19/18 [id number]
[2018-06-19] MEDS: CEPHALEXIN 250 MG CAPSULE. PO SCH ×3 (12:31→21:19)
--- NOTE | 2018-06-19 12:45 | NUR ---
SW following for discharge planning. Discussed with RN, pt does not qualify for [facility] at this time. AMAURI met with pt and pt's , Christine to discuss discharge planning. Christine reported she cannot really take care of pt at home at this time, and they cannot resign with Hospice until after the Daptomycin treatment is complete, which should be around the June,. PT/OT recommending SNU, however it is difficult for pt's to be accepted at SNU when on Dapto due to it being very expensive. Christine would like referral sent to [facility], AMAURI spoke with Raegan who was SW for pt last admission. Per Raegan, [facility] denied pt to go to SNU and would not approve a carve out for the Daptomycin. Christine requested AMAURI to contact their daughter, Gwendolyn ([phone]) to discuss. AMAURI spoke with Gwendolyn, Gwendolyn does not think her mother can take care of the pt at home as she can hardly take care of herself, Gwendolyn reported she has to go to help supervisor accounting clerks and unhook the abx. Gwendolyn also reported pt was supposed to be on a certain diet as to not choke, however pt's was feeding him regular food and he aspirated. AMAURI plan to determine pt's income and print medicaid application, Gwendolyn will assist pt's to complete the application. AMAURI faxed referral to [facility]. AMAURI will continue to follow.
--- NOTE | 2018-06-19 13:48 | PDOC ---
PULMONARY PROGRESS NOTES Subjective PT NOT MORE SOA FEEL BETTER Vitals Vital Signs Date Time Temp Pulse Resp B/P (MAP) Pulse Ox O2 Delivery O2 Flow Rate FiO2 06/19/18 11:00 97.7 66 17 149/37 (74) 99 Nasal Cannula 3.0 97.7 ROS: No Chest Pain, No Abdominal Pain, No Increase Cough General: Alert Lungs: Clear Cardiovascular: S1 Abdomen: Soft, Non-tender, Other Extremities: Other (right BKA, 1+edema left) Labs Laboratory Tests Test 06/17/18 15:29 06/17/18 17:11 06/17/18 21:31 06/18/18 06:10 Vancomycin Level Trough 24.7 mcg/mL (10.0-20.0) Vancomycin Last Dose Date 06/17/18 Vancomycin Last Dose Time 0200 Glucose (Fingerstick) 171 mg/dL (70-99) 176 mg/dL (70-99) White Blood Count 11.1 x10^3/uL (4.0-11.0) Red Blood Count 3.05 x10^6/uL (4.30-5.70) Hemoglobin 8.2 g/dL (13.0-17.5) Hematocrit 25.9 % (39.0-53.0) Mean Corpuscular Volume 85 fL (79-100) Mean Corpuscular Hemoglobin 27 pg (25-35) Mean Corpuscular Hemoglobin Concent 32 g/dL (31-37) Red Cell Distribution Width 17.0 % (11.5-14.5) Platelet Count 327 x10^3/uL (140-400) Neutrophils (%) (Auto) 80 % (31-73) Lymphocytes (%) (Auto) 5 % (24-48) Monocytes (%) (Auto) 11 % (0-9) Eosinophils (%) (Auto) 4 % (0-3) Basophils (%) (Auto) 0 % (0-3) Neutrophils # (Auto) 8.9 x10^3uL (1.8-7.7) Lymphocytes # (Auto) 0.6 x10^3/uL (1.0-4.8) Monocytes # (Auto) 1.2 x10^3/uL (0.0-1.1) Eosinophils # (Auto) 0.5 x10^3/uL (0.0-0.7) Basophils # (Auto) 0.0 x10^3/uL (0.0-0.2) Prothrombin Time 18.2 SEC (11.7-14.0) Prothromb Time International Ratio 1.5 (0.8-1.1) Sodium Level 143 mmol/L (136-145) Potassium Level 3.4 mmol/L (3.5-5.1) Chloride Level 107 mmol/L (98-107) Carbon Dioxide Level 28 mmol/L (21-32) Anion Gap 8 (6-14) Blood Urea Nitrogen 19 mg/dL (8-26) Creatinine 1.2 mg/dL (0.7-1.3) Estimated GFR (Cockcroft-Gault) 58.9 Glucose Level 161 mg/dL (70-99) Calcium Level 8.3 mg/dL (8.5-10.1) Magnesium Level 1.9 mg/dL (1.8-2.4) Test 06/18/18 07:33 06/18/18 11:41 06/18/18 16:46 06/18/18 20:40 Glucose (Fingerstick) 142 mg/dL (70-99) 155 mg/dL (70-99) 160 mg/dL (70-99) 165 mg/dL (70-99) Test 06/19/18 07:12 06/19/18 09:35 06/19/18 11:34 Glucose (Fingerstick) 160 mg/dL (70-99) 136 mg/dL (70-99) White Blood Count 9.3 x10^3/uL (4.0-11.0) Red Blood Count 3.49 x10^6/uL (4.30-5.70) Hemoglobin 9.4 g/dL (13.0-17.5) Hematocrit 29.5 % (39.0-53.0) Mean Corpuscular Volume 85 fL (79-100) Mean Corpuscular Hemoglobin 27 pg (25-35) Mean Corpuscular Hemoglobin Concent 32 g/dL (31-37) Red Cell Distribution Width 16.8 % (11.5-14.5) Platelet Count 265 x10^3/uL (140-400) Neutrophils (%) (Auto) 78 % (31-73) Lymphocytes (%) (Auto) 7 % (24-48) Monocytes (%) (Auto) 10 % (0-9) Eosinophils (%) (Auto) 6 % (0-3) Basophils (%) (Auto) 0 % (0-3) Neutrophils # (Auto) 7.3 x10^3uL (1.8-7.7) Lymphocytes # (Auto) 0.6 x10^3/uL (1.0-4.8) Monocytes # (Auto) 0.9 x10^3/uL (0.0-1.1) Eosinophils # (Auto) 0.5 x10^3/uL (0.0-0.7) Basophils # (Auto) 0.0 x10^3/uL (0.0-0.2) Prothrombin Time 20.5 SEC (11.7-14.0) Prothromb Time International Ratio 1.8 (0.8-1.1) Sodium Level 144 mmol/L (136-145) Potassium Level 3.6 mmol/L (3.5-5.1) Chloride Level 105 mmol/L (98-107) Carbon Dioxide Level 31 mmol/L (21-32) Anion Gap 8 (6-14) Blood Urea Nitrogen 14 mg/dL (8-26) Creatinine 1.1 mg/dL (0.7-1.3) Estimated GFR (Cockcroft-Gault) 65.1 Glucose Level 180 mg/dL (70-99) Calcium Level 8.4 mg/dL (8.5-10.1) Laboratory Tests Test 06/18/18 16:46 06/18/18 20:40 06/19/18 07:12 06/19/18 09:35 Glucose (Fingerstick) 160 mg/dL (70-99) 165 mg/dL (70-99) 160 mg/dL (70-99) White Blood Count 9.3 x10^3/uL (4.0-11.0) Red Blood Count 3.49 x10^6/uL (4.30-5.70) Hemoglobin 9.4 g/dL (13.0-17.5) Hematocrit 29.5 % (39.0-53.0) Mean Corpuscular Volume 85 fL (79-100) Mean Corpuscular Hemoglobin 27 pg (25-35) Mean Corpuscular Hemoglobin Concent 32 g/dL (31-37) Red Cell Distribution Width 16.8 % (11.5-14.5) Platelet Count 265 x10^3/uL (140-400) Neutrophils (%) (Auto) 78 % (31-73) Lymphocytes (%) (Auto) 7 % (24-48) Monocytes (%) (Auto) 10 % (0-9) Eosinophils (%) (Auto) 6 % (0-3) Basophils (%) (Auto) 0 % (0-3) Neutrophils # (Auto) 7.3 x10^3uL (1.8-7.7) Lymphocytes # (Auto) 0.6 x10^3/uL (1.0-4.8) Monocytes # (Auto) 0.9 x10^3/uL (0.0-1.1) Eosinophils # (Auto) 0.5 x10^3/uL (0.0-0.7) Basophils # (Auto) 0.0 x10^3/uL (0.0-0.2) Prothrombin Time 20.5 SEC (11.7-14.0) Prothromb Time International Ratio 1.8 (0.8-1.1) Sodium Level 144 mmol/L (136-145) Potassium Level 3.6 mmol/L (3.5-5.1) Chloride Level 105 mmol/L (98-107) Carbon Dioxide Level 31 mmol/L (21-32) Anion Gap 8 (6-14) Blood Urea Nitrogen 14 mg/dL (8-26) Creatinine 1.1 mg/dL (0.7-1.3) Estimated GFR (Cockcroft-Gault) 65.1 Glucose Level 180 mg/dL (70-99) Calcium Level 8.4 mg/dL (8.5-10.1) Test 06/19/18 11:34 Glucose (Fingerstick) 136 mg/dL (70-99) Medications Active Scripts Medications Dose Route/Sig Max Daily Dose Days Date Category Dose Instructions Digoxin 125 Mcg Tablet 125 Mcg PO DAILY 05/15/16 Rx Furosemide 40 Mg Tablet 40 Mg PO DAILY 05/15/16 Rx Zonisamide 100 Mg Capsule 400 Mg PO DAILY 05/11/16 Reported Percocet 5-325 Mg Tablet (Oxycodone/Acetaminophen) 1 Each Tablet 1 Tab PO PRN Q4HRS PRN 05/11/16 Reported Multivitamins (Multivitamin) 1 Each Tablet 1 Tab PO DAILY 05/11/16 Reported Levetiracetam 250 Mg Tablet 1,250 Mg PO BID 05/11/16 Reported Novolin N (Nph, Human Insulin Isophane) 100 Unit/1 Ml Vial Unknown Dose SQ 05/11/16 Reported Atorvastatin Calcium 80 Mg Tablet 1 Tab PO DAILY 05/11/16 Reported Acetaminophen 500 Mg Tablet 1 Tab PO PRN Q6HRS PRN 05/11/16 Reported Metoprolol Tartrate 50 Mg Tablet 50 Mg PO BID 02/24/16 Rx [Warfarin Sodium] 1 EACH Each 1 Each MC PRN DAILY PRN 02/24/16 Rx Lisinopril 20 Mg Tablet 20 Mg PO DAILY 02/24/16 Rx Duoneb 0.5-3(2.5) Mg/3 Ml (Albuterol/Ipratropium) 3 Ml Ampul.neb 3 Ml NEB Q4HRS W/A 30 02/24/16 Rx Hydralazine Hcl 10 Mg Tablet 10 Mg PO TID 02/24/16 Rx Albuterol Sulfate Hfa Inhaler (Albuterol Sulfate) 8.5 Gm Hfa.aer.ad 2 Puff IH PRN Q6HRS PRN 02/20/13 Reported Aspirin Ec (Aspirin) 325 Mg Tablet.dr 81 Mg PO DAILY 02/20/13 Reported Crestor (Rosuvastatin Calcium) 40 Mg Tablet 40 Mg PO DAILY 02/19/13 Reported Warfarin Sodium 5 Mg Tablet 6 Mg PO DAILY 02/19/13 Reported Warfarin Sodium 2.5 Mg Tablet 2.5 Mg PO 3X/WEEK 02/19/13 Reported monday,monday, Gabapentin (Gabapentin) 300 Mg Capsule 300 Mg PO DAILY 02/19/13 Reported Risperidone 1 Mg Tablet 1 Mg PO HS 02/19/13 Reported Novolog (Insulin Aspart) 100 Unit/1 Ml Vial 10 Unit SQ DAILYAC 02/19/13 Reported Oxycodone-Acetaminophen 10-325 (Oxycodone Hcl/Acetaminophen) 1 Each Tablet 1 Each PO PRN Q6HRS 02/19/13 Reported Potassium 99 Mg Tablet 20 Meq PO DAILY 02/19/13 Reported Prednisone (Prednisone) 10 Mg Tablet 10 Mg PO DAILY 02/19/13 Reported Metformin Hcl 500 Mg Tablet 1,000 Mg PO BIDBFRMEAL 02/19/13 Reported Impression . IMPRESSION: 1. Acute hypoxemic respiratory failure. 2. [id number] diastolic heart failure. 3. Atrial fibrillation with rapid ventricular response. 4. Coronary artery disease, status post coronary artery bypass grafting. 5. Leukocytosis, suspect reactive. 6. 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 7. Peripheral vascular disease. 8. Functional quadriplegia. 9. Accelerated hypertension. 10. Severe protein malnutrition. 11 h/o MRSA bacteremia with sepsis from 05/18. D/c Dapto till 07/02 -CRYSTAL done no vegetations 05/21; BC from 05/20 & onward were neg (PER ID) 12 NEGATIVE LEFT UPPER EXT VENOUS 13. CMP EF 35% 14. ABNORMAL CXR/ Plan . ANTIBX PER ID GI WORK UP PRN BIPAP U/S UPPER L EXT NEGATIVE DIURESE REPEAT CXR TODAY RAMESH SANTIAGO MD June 19, 2018 13:48
[2018-06-19] MEDS ORDERED: WARFARIN 5 MG TABLET. PO ONE (16:00)
--- NOTE | 2018-06-19 16:36 | RAD ---
PORTABLE CHEST 1V History: CHF Comparison: June 15, 2018 Findings: Single view of the chest is submitted. There again has been sternotomy, valvular prosthesis. There is atherosclerotic calcification greater near aortic arch. There is again right upper extremity PICC. There is persistent fairly coarse right perihilar opacity, slightly decreased of the mid right hemithorax. There is persistent left perihilar airspace opacity and also of the left lung base not convincingly changed. Cardiac silhouette is enlarged although stable. No pneumothorax is identified. Small left pleural effusion is not excluded, also possible small right pleural effusion now present. Impression: 1. There is persistent airspace opacity bilaterally greater of the perihilar regions and left lung base which may be due to infiltrates and/or edema, also suspected small pleural effusions. Electronically signed by: Jean-Pierre Griffiths MD (06/19/2018 4:32 PM) [id number]
[2018-06-19] MEDS: ATORVASTATIN CALCIUM 40 MG TABLET. PO SCH (21:19)
[2018-06-19] MEDS: risperiDONE 1 MG TABLET. PO SCH (21:19)
[2018-06-20] VITALS (7 sets, daily range): BP systolic 133–185; BP diastolic 47–76
[2018-06-20] MEDS: ALBUTEROL SULFATE 2.5 MG/3 ML NEBU. IH PRN ×2 (03:39→18:27)
[2018-06-20] MEDS: oxyCODONE/APAP 5/325 1 TAB TABLET PO PRN ×2 (04:17→21:17)
[2018-06-20 05:51] LABS: PROTHROMBIN TIME PATIENT 24.5 SEC (11.7-14.0)
[2018-06-20 05:54] LABS: CALCIUM 8.6 mg/dL (8.5-10.1); CREATININE 1.1 mg/dL (0.7-1.3); GFR 65.1; POTASSIUM 3.9 mmol/L (3.5-5.1)
[2018-06-20] MEDS: INSULIN LISPRO 300 UNITS/3 ML INSULN.PEN. SQ SCH ×3 (08:00→17:11)
[2018-06-20] MEDS: IPRATRPIUM/ALBUTEROL 0.5/2.5MG 3 ML NEBU. NEB SCH ×4 (08:00→19:46)
--- NOTE | 2018-06-20 08:40 | PDOC ---
PROGRESS NOTES Chief Complaint Chief Complaint Pneumonia with right perihilar infiltrate. Leukocytosis Chronic Crawley with pyuria MRSA bacteremia with sepsis from 05/18. D/c Dapto till 07/02 Acute on chronic CHF MRSA and Enterobacter ( R Augmentin/cefuroxime) infection PSA ( R quinolones & I imipenem) infection Bioprosthetic aortic valve A- fib Anticoagulation on warfarin Diabetes Type II Seizure disorder, on Keppra Noncompliance New anemia with possible GI bleed s/p blood transfusion History of Present Illness History of Present Illness Patient seen and examined. I discussed the case at length with his and RN, AMAURI. Sitting up in bed this morning, breathing a bit better. At his baseline confusion per He denies dark stools or bloody stools or hemoptysis. Urine returned with 100K GNR - e coli sensitive. Wishes for SNF on d/c, needs daptomycin until 07/02 and ceftin until 06/22. CXR still with bilateral opacities. Plan: Antibiotics per ID, needs a bit more diuresis, D/C to SNF in the next day or so He needs to continue daptomycin, failed home health, needs placement at least until 07/02 to complete daptomycin course, has daptomycin sitting at home that will in 48 hours if not used per his . Vitals Vitals Vital Signs Date Time Temp Pulse Resp B/P (MAP) Pulse Ox O2 Delivery O2 Flow Rate FiO2 06/20/18 08:09 Nasal Cannula 3.0 06/20/18 08:01 99 06/20/18 07:00 97.7 89 17 152/61 (91) 97.7 Physical Exam Physical Exam GENERAL: Propped up in bed, alert, NAD HEENT: Pupils equally round and reactive. Normal conjunctivae. Oral oropharynx pink and moist. No thrush. NECK: Supple. LUNGS: Improved aeration HEART: S1 and S2 irregular. ABDOMEN: Obese, soft and nontender with bowel sounds present. GENITOURINARY: Indwelling Crawley out. EXTREMITIES: Left hand is swollen. No redness, warmth or limited range of motion. Left lower extremity 1+ edema. No cyanosis. Right BKA incision healing well, stables still in place. no redness or drainage SKIN: Warm without generalized rash. Multiple tattoos. A small superficial ulcer, left lateral malleolus area without signs of infection - healing NEUROLOGIC: Alert and responding appropriately. Poor historian. RUE-PICC (POA) without signs of any complications. 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 taken down in the distant past) Extremities: Other (he is bilateral amputee with wound dressing he also has a stump protector on the right and a knee brace on the right) Labs LABS Laboratory Tests Test 06/19/18 09:35 06/19/18 11:34 06/19/18 16:46 06/19/18 20:48 White Blood Count 9.3 x10^3/uL (4.0-11.0) Red Blood Count 3.49 x10^6/uL (4.30-5.70) Hemoglobin 9.4 g/dL (13.0-17.5) Hematocrit 29.5 % (39.0-53.0) Mean Corpuscular Volume 85 fL (79-100) Mean Corpuscular Hemoglobin 27 pg (25-35) Mean Corpuscular Hemoglobin Concent 32 g/dL (31-37) Red Cell Distribution Width 16.8 % (11.5-14.5) Platelet Count 265 x10^3/uL (140-400) Neutrophils (%) (Auto) 78 % (31-73) Lymphocytes (%) (Auto) 7 % (24-48) Monocytes (%) (Auto) 10 % (0-9) Eosinophils (%) (Auto) 6 % (0-3) Basophils (%) (Auto) 0 % (0-3) Neutrophils # (Auto) 7.3 x10^3uL (1.8-7.7) Lymphocytes # (Auto) 0.6 x10^3/uL (1.0-4.8) Monocytes # (Auto) 0.9 x10^3/uL (0.0-1.1) Eosinophils # (Auto) 0.5 x10^3/uL (0.0-0.7) Basophils # (Auto) 0.0 x10^3/uL (0.0-0.2) Prothrombin Time 20.5 SEC (11.7-14.0) Prothromb Time International Ratio 1.8 (0.8-1.1) Sodium Level 144 mmol/L (136-145) Potassium Level 3.6 mmol/L (3.5-5.1) Chloride Level 105 mmol/L (98-107) Carbon Dioxide Level 31 mmol/L (21-32) Anion Gap 8 (6-14) Blood Urea Nitrogen 14 mg/dL (8-26) Creatinine 1.1 mg/dL (0.7-1.3) Estimated GFR (Cockcroft-Gault) 65.1 Glucose Level 180 mg/dL (70-99) Calcium Level 8.4 mg/dL (8.5-10.1) Glucose (Fingerstick) 136 mg/dL (70-99) 191 mg/dL (70-99) 165 mg/dL (70-99) Test 06/20/18 05:30 06/20/18 07:11 Prothrombin Time 24.5 SEC (11.7-14.0) Prothromb Time International Ratio 2.2 (0.8-1.1) Sodium Level 140 mmol/L (136-145) Potassium Level 3.9 mmol/L (3.5-5.1) Chloride Level 102 mmol/L (98-107) Carbon Dioxide Level 31 mmol/L (21-32) Anion Gap 7 (6-14) Blood Urea Nitrogen 12 mg/dL (8-26) Creatinine 1.1 mg/dL (0.7-1.3) Estimated GFR (Cockcroft-Gault) 65.1 Glucose Level 164 mg/dL (70-99) Calcium Level 8.6 mg/dL (8.5-10.1) Glucose (Fingerstick) 150 mg/dL (70-99) Assessment and Plan Assessmemt and Plan Problems Medical Problems: (1) Pneumonia Status: Acute (2) Sepsis Status: Acute (3) Tachycardia Status: Acute Comment Review of Relevant I have reviewed the following items navi (where applicable) has been applied. Labs Laboratory Tests Test 06/18/18 11:41 06/18/18 16:46 06/18/18 20:40 06/19/18 07:12 Glucose (Fingerstick) 155 mg/dL (70-99) 160 mg/dL (70-99) 165 mg/dL (70-99) 160 mg/dL (70-99) Test 06/19/18 09:35 06/19/18 11:34 06/19/18 16:46 06/19/18 20:48 White Blood Count 9.3 x10^3/uL (4.0-11.0) Red Blood Count 3.49 x10^6/uL (4.30-5.70) Hemoglobin 9.4 g/dL (13.0-17.5) Hematocrit 29.5 % (39.0-53.0) Mean Corpuscular Volume 85 fL (79-100) Mean Corpuscular Hemoglobin 27 pg (25-35) Mean Corpuscular Hemoglobin Concent 32 g/dL (31-37) Red Cell Distribution Width 16.8 % (11.5-14.5) Platelet Count 265 x10^3/uL (140-400) Neutrophils (%) (Auto) 78 % (31-73) Lymphocytes (%) (Auto) 7 % (24-48) Monocytes (%) (Auto) 10 % (0-9) Eosinophils (%) (Auto) 6 % (0-3) Basophils (%) (Auto) 0 % (0-3) Neutrophils # (Auto) 7.3 x10^3uL (1.8-7.7) Lymphocytes # (Auto) 0.6 x10^3/uL (1.0-4.8) Monocytes # (Auto) 0.9 x10^3/uL (0.0-1.1) Eosinophils # (Auto) 0.5 x10^3/uL (0.0-0.7) Basophils # (Auto) 0.0 x10^3/uL (0.0-0.2) Prothrombin Time 20.5 SEC (11.7-14.0) Prothromb Time International Ratio 1.8 (0.8-1.1) Sodium Level 144 mmol/L (136-145) Potassium Level 3.6 mmol/L (3.5-5.1) Chloride Level 105 mmol/L (98-107) Carbon Dioxide Level 31 mmol/L (21-32) Anion Gap 8 (6-14) Blood Urea Nitrogen 14 mg/dL (8-26) Creatinine 1.1 mg/dL (0.7-1.3) Estimated GFR (Cockcroft-Gault) 65.1 Glucose Level 180 mg/dL (70-99) Calcium Level 8.4 mg/dL (8.5-10.1) Glucose (Fingerstick) 136 mg/dL (70-99) 191 mg/dL (70-99) 165 mg/dL (70-99) Test 06/20/18 05:30 06/20/18 07:11 Prothrombin Time 24.5 SEC (11.7-14.0) Prothromb Time International Ratio 2.2 (0.8-1.1) Sodium Level 140 mmol/L (136-145) Potassium Level 3.9 mmol/L (3.5-5.1) Chloride Level 102 mmol/L (98-107) Carbon Dioxide Level 31 mmol/L (21-32) Anion Gap 7 (6-14) Blood Urea Nitrogen 12 mg/dL (8-26) Creatinine 1.1 mg/dL (0.7-1.3) Estimated GFR (Cockcroft-Gault) 65.1 Glucose Level 164 mg/dL (70-99) Calcium Level 8.6 mg/dL (8.5-10.1) Glucose (Fingerstick) 150 mg/dL (70-99) Laboratory Tests Test 06/19/18 09:35 06/19/18 11:34 06/19/18 16:46 06/19/18 20:48 White Blood Count 9.3 x10^3/uL (4.0-11.0) Red Blood Count 3.49 x10^6/uL (4.30-5.70) Hemoglobin 9.4 g/dL (13.0-17.5) Hematocrit 29.5 % (39.0-53.0) Mean Corpuscular Volume 85 fL (79-100) Mean Corpuscular Hemoglobin 27 pg (25-35) Mean Corpuscular Hemoglobin Concent 32 g/dL (31-37) Red Cell Distribution Width 16.8 % (11.5-14.5) Platelet Count 265 x10^3/uL (140-400) Neutrophils (%) (Auto) 78 % (31-73) Lymphocytes (%) (Auto) 7 % (24-48) Monocytes (%) (Auto) 10 % (0-9) Eosinophils (%) (Auto) 6 % (0-3) Basophils (%) (Auto) 0 % (0-3) Neutrophils # (Auto) 7.3 x10^3uL (1.8-7.7) Lymphocytes # (Auto) 0.6 x10^3/uL (1.0-4.8) Monocytes # (Auto) 0.9 x10^3/uL (0.0-1.1) Eosinophils # (Auto) 0.5 x10^3/uL (0.0-0.7) Basophils # (Auto) 0.0 x10^3/uL (0.0-0.2) Prothrombin Time 20.5 SEC (11.7-14.0) Prothromb Time International Ratio 1.8 (0.8-1.1) Sodium Level 144 mmol/L (136-145) Potassium Level 3.6 mmol/L (3.5-5.1) Chloride Level 105 mmol/L (98-107) Carbon Dioxide Level 31 mmol/L (21-32) Anion Gap 8 (6-14) Blood Urea Nitrogen 14 mg/dL (8-26) Creatinine 1.1 mg/dL (0.7-1.3) Estimated GFR (Cockcroft-Gault) 65.1 Glucose Level 180 mg/dL (70-99) Calcium Level 8.4 mg/dL (8.5-10.1) Glucose (Fingerstick) 136 mg/dL (70-99) 191 mg/dL (70-99) 165 mg/dL (70-99) Test 06/20/18 05:30 06/20/18 07:11 Prothrombin Time 24.5 SEC (11.7-14.0) Prothromb Time International Ratio 2.2 (0.8-1.1) Sodium Level 140 mmol/L (136-145) Potassium Level 3.9 mmol/L (3.5-5.1) Chloride Level 102 mmol/L (98-107) Carbon Dioxide Level 31 mmol/L (21-32) Anion Gap 7 (6-14) Blood Urea Nitrogen 12 mg/dL (8-26) Creatinine 1.1 mg/dL (0.7-1.3) Estimated GFR (Cockcroft-Gault) 65.1 Glucose Level 164 mg/dL (70-99) Calcium Level 8.6 mg/dL (8.5-10.1) Glucose (Fingerstick) 150 mg/dL (70-99) Microbiology 06/15/18 Blood Culture - Preliminary, Resulted NO GROWTH AFTER 4 DAYS 06/15/18 Urine Culture - Final, Complete 06/15/18 Urine Culture Result 1 (FELICITA) - Final, Complete 06/15/18 Antimicrobic Susceptibility - Final, Complete Medications Current Medications Albuterol/ Ipratropium (Duoneb) 3 ml 1X ONCE NEB Last administered on 06/15/18at 08:24; Start 06/15/18 at 08:15; Stop 06/15/18 at 08:16; Status DC Methylprednisolone Sodium Succinate (SOLU-Medrol 125MG VIAL) 125 mg 1X ONCE IV Last administered on 06/15/18at 08:46; Start 06/15/18 at 09:00; Stop 06/15/18 at 09:01; Status DC Vancomycin HCl (Vanco Per Pharmacy) 1 each PRN DAILY PRN MC SEE COMMENTS Last administered on 06/18/18at 09:38; Start 06/15/18 at 08:45; Stop 06/19/18 at 09:42; Status DC Piperacillin Sod/ Tazobactam Sod (Zosyn Per Pharmacy) 1 each PRN DAILY PRN MC SEE COMMENTS; Start 06/15/18 at 08:45; Stop 06/18/18 at 13:55; Status DC Sodium Chloride 500 ml @ 500 mls/hr 1X ONCE IV Last administered on 06/15/18at 08:47; Start 06/15/18 at 08:45; Stop 06/15/18 at 09:44; Status DC Vancomycin HCl 2 gm/Sodium Chloride 500 ml @ 250 mls/hr 1X ONCE IV Last administered on 06/15/18at 09:22; Start 06/15/18 at 09:15; Stop 06/15/18 at 11:14; Status DC Piperacillin Sod/ Tazobactam Sod 4.5 gm/Sodium Chloride 100 ml @ 200 mls/hr 1X ONCE IV Last administered on 06/15/18at 08:47; Start 06/15/18 at 09:15; Stop 06/15/18 at 09:44; Status DC Ondansetron HCl (Zofran) 4 mg PRN Q8HRS PRN IV NAUSEA/VOMITING; Start 06/15/18 at 08:45; Stop 06/16/18 at 08:44; Status DC Morphine Sulfate (Morphine Sulfate) 2 mg PRN Q2HR PRN IV PAIN; Start 06/15/18 at 08:45; Stop 06/16/18 at 08:44; Status DC Sodium Chloride 1,000 ml @ 100 mls/hr Q10H IV Last administered on 06/15/18at 09:17; Start 06/15/18 at 08:35; Stop 06/15/18 at 12:34; Status DC Albuterol/ Ipratropium (Duoneb) 3 ml RTQID NEB Last administered on 06/20/18at 08:00; Start 06/15/18 at 08:45 Acetaminophen (Tylenol) 500 mg PRN Q6HRS PRN PO MILD PAIN / TEMP; Start 06/15/18 at 08:45; Stop 06/15/18 at 14:08; Status DC Ondansetron HCl (Zofran) 4 mg PRN Q6HRS PRN IV NAUSEA/VOMITING; Start 06/15/18 at 08:45 Aspirin (Ecotrin) 81 mg DAILY PO Last administered on 06/15/18at 09:00; Start 06/15/18 at 09:00; Stop 06/16/18 at 08:34; Status DC Digoxin (Lanoxin) 125 mcg DAILY PO Last administered on 06/19/18at 08:37; Start 06/15/18 at 09:00 Furosemide (Lasix) 40 mg DAILY PO Last administered on 06/19/18at 08:38; Start 06/15/18 at 09:00 Gabapentin (Neurontin) 300 mg DAILY PO Last administered on 06/19/18at 08:38; Start 06/15/18 at 09:00 Lisinopril (Prinivil) 20 mg DAILY PO Last administered on 06/19/18at 08:38; Start 06/15/18 at 09:00 Metoprolol Tartrate (Lopressor) 50 mg BID PO Last administered on 06/19/18at 21:19; Start 06/15/18 at 09:00 Acetaminophen (Tylenol) 500 mg PRN Q6HRS PRN PO MILD PAIN / TEMP; Start 06/15/18 at 09:30 Atorvastatin Calcium (Lipitor) 80 mg QHS PO Last administered on 06/19/18at 21:19; Start 06/15/18 at 21:00 Hydralazine HCl (Apresoline) 10 mg TID PO Last administered on 06/19/18 21:19; Start 06/15/18 at 10:00 Non-Formulary Medication (Insulin Aspart (Novolog)) 10 unit DAILYAC SQ ; Start 06/16/18 at 07:30; Status UNV Levetiracetam (Keppra) 1,250 mg BID PO Last administered on 06/19/18at 21:19; Start 06/15/18 at 09:30 Multivitamins (Thera M Plus) 1 tab DAILY PO Last administered on 06/19/18at 08:37; Start 06/15/18 at 09:30 Risperidone (RisperDAL) 1 mg QHS PO Last administered on 06/19/18 21:19; Start 06/15/18 at 09:45 Non-Formulary Medication (Rosuvastatin Calcium (Crestor)) 40 mg DAILY PO ; Start 06/15/18 at 09:00; Status UNV Zonisamide (Zonegran) 400 mg DAILY PO Last administered on 06/19/18at 08:36; Start 06/15/18 at 09:30 Insulin Human Lispro (HumaLOG) 0-9 UNITS TIDWMEALS SQ Last administered on 06/19/18at 17:05; Start 06/15/18 at 09:20 Dextrose (Dextrose 50%-Water Syringe) 12.5 gm PRN Q15MIN PRN IV SEE COMMENTS; Start 06/15/18 at 08:45 Warfarin Sodium (Coumadin Per Pharmacy) 1 each PRN DAILY PRN MC SEE COMMENTS Last administered on 06/19/18at 11:35; Start 06/15/18 at 08:45 Warfarin Sodium (Coumadin - No Dose Today) 1 each 1X WARF ONCE MC ; Start 06/15/18 at 16:00; Stop 06/15/18 at 16:01; Status DC Piperacillin Sod/ Tazobactam Sod 4.5 gm/Sodium Chloride 100 ml @ 200 mls/hr Q6HRS IV Last administered on 06/18/18at 12:51; Start 06/15/18 at 17:00; Stop 06/18/18 at 13:55; Status DC Vancomycin HCl 1.5 gm/Sodium Chloride 500 ml @ 250 mls/hr Q18H IV Last administered on 06/16/18 21:49; Start 06/16/18 at 03:00; Stop 06/17/18 at 16:03; Status DC Vancomycin HCl (Vancomycin Trough Level) 1 each 1X ONCE MC Last administered on 06/17/18at 14:30; Start 06/17/18 at 14:30; Stop 06/17/18 at 14:31; Status DC Aspirin (Ecotrin) 81 mg DAILY PO Last administered on 06/19/18at 08:37; Start 06/16/18 at 09:00 Phytonadione (Mephyton Oral Soln) 5 mg 1X ONCE PO Last administered on 06/16/18 11:02; Start 06/16/18 at 11:00; Stop 06/16/18 at 11:01; Status DC Warfarin Sodium (Coumadin - No Dose Today) 1 each 1X WARF ONCE MC ; Start 06/16/18 at 16:00; Stop 06/16/18 at 16:01; Status DC Oxycodone/ Acetaminophen (Percocet 5/325) 1 tab PRN Q4HRS PRN PO SEVERE PAIN Last administered on 06/20/18 04:17; Start 06/17/18 at 03:15 Warfarin Sodium (Coumadin) 3 mg 1X WARF ONCE PO Last administered on 06/17/18at 17:29; Start 06/17/18 at 16:00; Stop 06/17/18 at 16:01; Status DC Vancomycin HCl 1.5 gm/Sodium Chloride 500 ml @ 250 mls/hr Q24H IV Last administered on 06/18/18at 22:56; Start 06/17/18 at 21:00; Stop 06/19/18 at 09:42; Status DC Vancomycin HCl (Vancomycin Trough Level) 1 each 1X ONCE MC ; Start 06/19/18 at 20:30; Stop 06/19/18 at 20:30; Status DC Albuterol Sulfate (Ventolin Neb Soln) 2.5 mg RTQID PRN IH WHEEZING Last administered on 06/20/18at 03:39; Start 06/17/18 at 17:30 Potassium Chloride (Klor-Con) 40 meq DAILY PO Last administered on 06/19/18at 08:37; Start 06/18/18 at 09:00 Warfarin Sodium (Coumadin) 5 mg 1X WARF ONCE PO Last administered on 06/18/18at 22:21; Start 06/18/18 at 16:00; Stop 06/18/18 at 16:01; Status DC Lactobacillus Rhamnosus (Culturelle) 1 cap BID PO ; Start 06/18/18 at 12:00; Status Cancel Piperacillin Sod/ Tazobactam Sod 3.375 gm/Sodium Chloride 50 ml @ 100 mls/hr Q6HRS IV Last administered on 06/19/18at 06:43; Start 06/18/18 at 18:00; Stop 06/19/18 at 09:42; Status DC Daptomycin 600 mg/ Sodium Chloride 50 ml @ 100 mls/hr Q24H IV Last administered on 06/19/18at 10:45; Start 06/19/18 at 10:30 Cephalexin HCl (Keflex) 500 mg QID PO Last administered on 06/19/18at 21:19; Start 06/19/18 at 13:00 Warfarin Sodium (Coumadin) 5 mg 1X WARF ONCE PO Last administered on 06/19/18at 16:00; Start 06/19/18 at 16:00; Stop 06/19/18 at 16:01; Status DC Active Scripts Active Digoxin 125 Mcg Tablet 125 Mcg PO DAILY Furosemide 40 Mg Tablet 40 Mg PO DAILY Metoprolol Tartrate 50 Mg Tablet 50 Mg PO BID [Warfarin Sodium] 1 EACH Each 1 Each MC PRN DAILY PRN Lisinopril 20 Mg Tablet 20 Mg PO DAILY Duoneb 0.5-3(2.5) Mg/3 Ml (Albuterol/Ipratropium) 3 Ml Ampul.neb 3 Ml NEB Q4HRS W/A 30 Days Hydralazine Hcl 10 Mg Tablet 10 Mg PO TID Reported Zonisamide 100 Mg Capsule 400 Mg PO DAILY Percocet 5-325 Mg Tablet (Oxycodone/Acetaminophen) 1 Each Tablet 1 Tab PO PRN Q4HRS PRN Multivitamins (Multivitamin) 1 Each Tablet 1 Tab PO DAILY Levetiracetam 250 Mg Tablet 1,250 Mg PO BID Novolin N (Nph, Human Insulin Isophane) 100 Unit/1 Ml Vial Unknown Dose SQ Atorvastatin Calcium 80 Mg Tablet 1 Tab PO DAILY Acetaminophen 500 Mg Tablet 1 Tab PO PRN Q6HRS PRN Albuterol Sulfate Hfa Inhaler (Albuterol Sulfate) 8.5 Gm Hfa.aer.ad 2 Puff IH PRN Q6HRS PRN Aspirin Ec (Aspirin) 325 Mg Tablet.dr 81 Mg PO DAILY Crestor (Rosuvastatin Calcium) 40 Mg Tablet 40 Mg PO DAILY Warfarin Sodium 5 Mg Tablet 6 Mg PO DAILY Warfarin Sodium 2.5 Mg Tablet 2.5 Mg PO 3X/WEEK monday,monday, Gabapentin (Gabapentin) 300 Mg Capsule 300 Mg PO DAILY Risperidone 1 Mg Tablet 1 Mg PO HS Novolog (Insulin Aspart) 100 Unit/1 Ml Vial 10 Unit SQ DAILYAC Oxycodone-Acetaminophen 10-325 (Oxycodone Hcl/Acetaminophen) 1 Each Tablet 1 Each PO PRN Q6HRS Potassium 99 Mg Tablet 20 Meq PO DAILY Prednisone (Prednisone) 10 Mg Tablet 10 Mg PO DAILY Metformin Hcl 500 Mg Tablet 1,000 Mg PO BIDBFRMEAL Vitals/I & O Vital Sign - Last 24 Hours 06/19/18 06/19/18 06/19/18 06/19/18 11:00 14:09 14:12 15:00 Temp 97.7 98.0 97.7 98.0 Pulse 66 66 69 Resp 17 16 18 B/P (MAP) 149/37 (74) 149/37 165/48 (87) Pulse Ox 99 99 O2 Delivery Nasal Cannula Nasal Cannula Nasal Cannula O2 Flow Rate 3.0 3.0 3.0 06/19/18 06/19/18 06/19/18 06/19/18 15:13 15:38 19:00 20:00 Temp 98.1 98.1 Pulse 67 Resp 18 B/P (MAP) 121/34 (63) Pulse Ox 98 O2 Delivery Nasal Cannula Nasal Cannula Nasal Cannula O2 Flow Rate 3.0 3.0 3.0 3.0 06/19/18 06/19/18 06/19/18 06/19/18 20:16 21:14 21:19 21:19 Temp 98.0 98.0 Pulse 69 69 69 Resp 18 B/P (MAP) 155/61 (92) 155/61 155/61 Pulse Ox 100 97 O2 Delivery Nasal Cannula Nasal Cannula O2 Flow Rate 4.0 3.0 06/19/18 06/19/18 06/20/18 06/20/18 22:02 23:00 03:00 03:40 Temp 97.7 98.9 97.7 98.9 Pulse 68 70 Resp 18 18 B/P (MAP) 156/39 (78) 185/69 (107) Pulse Ox 97 97 95 O2 Delivery Nasal Cannula Nasal Cannula Nasal Cannula Nasal Cannula O2 Flow Rate 3.0 3.0 3.0 2.0 06/20/18 06/20/18 06/20/18 06/20/18 04:17 05:17 07:00 08:01 Temp 97.7 97.7 Pulse 89 Resp 18 18 17 B/P (MAP) 152/61 (91) Pulse Ox 94 99 O2 Delivery Room Air Room Air Nasal Cannula Nasal Cannula O2 Flow Rate 3.0 3.0 06/20/18 08:09 O2 Delivery Nasal Cannula O2 Flow Rate 3.0 Intake and Output 06/19/18 06/19/18 06/20/18 15:00 23:00 07:00 Intake Total 300 ml 50 ml Balance 300 ml [address] Chest - 1. Bilateral airspace disease with more focal areas of consolidation in the right upper lobe and superior segment left lower lobe, likely related to pneumonia. 2. Moderate size bilateral pleural effusions. 3. Mediastinal and right hilar lymphadenopathy, likely reactive. Follow-up imaging after treatment to ensure resolution. 4. Aneurysmal dilation of the ascending thoracic aorta, unchanged. NEHAL NELSON MD June 20, 2018 08:40
--- NOTE | 2018-06-20 08:44 | RAD ---
CT chest without contrast dated 06/20/2018. COMPARISON: 05/25/2018. CLINICAL INDICATION: Follow-up infiltrates. TECHNIQUE: Contiguous axial imaging the chest performed without the administration of IV contrast. One or more of the following individualized dose reduction techniques were utilized for this examination: 1. Automated exposure control 2. Adjustment of the mA and/or kV according to patient size 3. Use of iterative reconstruction technique. FINDINGS: Heart size moderately enlarged. No pericardial effusion. Aneurysmal dilation of the ascending thoracic aorta measuring 4.2 cm transverse. The patient is status post median sternotomy and aortic valve replacement and CABG procedure. Mildly enlarged left paratracheal lymph node measures 1.4 cm short axis, unchanged. Enlarged subcarinal lymph node measures 10 mm short axis. There is some soft tissue fullness at the right hilum. No axillary adenopathy. Thyroid gland unremarkable. There is focal consolidation with air bronchograms in the right upper lobe, new from prior study. There is also patchy infiltrate in the right middle lobe, lingula and left upper lobe, increased. Consolidation in the superior segment left lower lobe along the posterior margin of the major fissure, increased from prior exam. There is also dependent consolidation in the bilateral lower lobes with moderate size bilateral pleural effusions. No pneumothorax. Limited images of upper abdomen show indeterminate low-density foci at the bilateral kidney upper pole, unchanged. There is high density material in the gallbladder lumen, sludge versus vicariously excreted contrast. There is fatty atrophy of the pancreas. Bone windows show no acute findings. Multilevel spondylosis. IMPRESSION: 1. Bilateral airspace disease with more focal areas of consolidation in the right upper lobe and superior segment left lower lobe, likely related to pneumonia. 2. Moderate size bilateral pleural effusions. 3. Mediastinal and right hilar lymphadenopathy, likely reactive. Follow-up imaging after treatment to ensure resolution. 4. Aneurysmal dilation of the ascending thoracic aorta, unchanged. Electronically signed by: John Blunt MD (06/20/2018 8:41 AM) [id number]
[2018-06-20] MEDS: CEPHALEXIN 250 MG CAPSULE. PO SCH ×4 (09:08→21:18)
[2018-06-20] MEDS: FUROSEMIDE 40 MG TABLET. PO SCH (09:08)
[2018-06-20] MEDS: hydrALAZINE 10 MG TABLET PO SCH ×3 (09:08→21:20)
[2018-06-20] MEDS: levETIRAcetam 250 MG TABLET PO SCH ×2 (09:08→21:17)
[2018-06-20] MEDS: GABAPENTIN 300 MG CAPSULE. PO SCH (09:09)
[2018-06-20] MEDS: ASPIRIN ENTERIC COATED 81 MG TABLET.DR. PO SCH (09:09)
[2018-06-20] MEDS: LISINOPRIL 20 MG TABLET PO SCH (09:09)
[2018-06-20] MEDS: ZONISAMIDE 100 MG CAPSULE. PO SCH (09:09)
[2018-06-20] MEDS: POTASSIUM CHLORIDE 20 MEQ TABLET.ER. PO SCH (09:09)
[2018-06-20] MEDS: MULTIVITAMIN with MINERAL TABLET. PO SCH (09:09)
[2018-06-20] MEDS: METOPROLOL TART IMMED RELEASE 50 MG TABLET. PO SCH ×2 (09:10→21:19)
[2018-06-20] MEDS: DIGOXIN 125 MCG TABLET. PO SCH (09:10)
--- NOTE | 2018-06-20 09:47 | NUR ---
SW following for discharge planning. Discussed with RN. [facility] accepted pt pending insurance approval, as well as insurance approval for Daptomycin carve out, or approval for family to bring the Daptomycin they have at home to [facility]. [facility] likely to have a bed or Monday. AMA[facility] will continue to follow. RN notified.
--- NOTE | 2018-06-20 10:15 | PDOC ---
PULMONARY PROGRESS NOTES Subjective PT NOT MORE SOA FEEL BETTER Vitals Vital Signs Date Time Temp Pulse Resp B/P (MAP) Pulse Ox O2 Delivery O2 Flow Rate FiO2 06/20/18 09:10 89 152/61 06/20/18 08:09 Nasal Cannula 3.0 06/20/18 08:01 99 06/20/18 07:00 97.7 17 97.7 ROS: No Chest Pain, No Abdominal Pain, No Increase Cough General: Alert Lungs: Clear Cardiovascular: S1 Abdomen: Soft, Non-tender, Other Extremities: Other (right BKA, 1+edema left) Labs Laboratory Tests Test 06/18/18 11:41 06/18/18 16:46 06/18/18 20:40 06/19/18 07:12 Glucose (Fingerstick) 155 mg/dL (70-99) 160 mg/dL (70-99) 165 mg/dL (70-99) 160 mg/dL (70-99) Test 06/19/18 09:35 06/19/18 11:34 06/19/18 16:46 06/19/18 20:48 White Blood Count 9.3 x10^3/uL (4.0-11.0) Red Blood Count 3.49 x10^6/uL (4.30-5.70) Hemoglobin 9.4 g/dL (13.0-17.5) Hematocrit 29.5 % (39.0-53.0) Mean Corpuscular Volume 85 fL (79-100) Mean Corpuscular Hemoglobin 27 pg (25-35) Mean Corpuscular Hemoglobin Concent 32 g/dL (31-37) Red Cell Distribution Width 16.8 % (11.5-14.5) Platelet Count 265 x10^3/uL (140-400) Neutrophils (%) (Auto) 78 % (31-73) Lymphocytes (%) (Auto) 7 % (24-48) Monocytes (%) (Auto) 10 % (0-9) Eosinophils (%) (Auto) 6 % (0-3) Basophils (%) (Auto) 0 % (0-3) Neutrophils # (Auto) 7.3 x10^3uL (1.8-7.7) Lymphocytes # (Auto) 0.6 x10^3/uL (1.0-4.8) Monocytes # (Auto) 0.9 x10^3/uL (0.0-1.1) Eosinophils # (Auto) 0.5 x10^3/uL (0.0-0.7) Basophils # (Auto) 0.0 x10^3/uL (0.0-0.2) Prothrombin Time 20.5 SEC (11.7-14.0) Prothromb Time International Ratio 1.8 (0.8-1.1) Sodium Level 144 mmol/L (136-145) Potassium Level 3.6 mmol/L (3.5-5.1) Chloride Level 105 mmol/L (98-107) Carbon Dioxide Level 31 mmol/L (21-32) Anion Gap 8 (6-14) Blood Urea Nitrogen 14 mg/dL (8-26) Creatinine 1.1 mg/dL (0.7-1.3) Estimated GFR (Cockcroft-Gault) 65.1 Glucose Level 180 mg/dL (70-99) Calcium Level 8.4 mg/dL (8.5-10.1) Glucose (Fingerstick) 136 mg/dL (70-99) 191 mg/dL (70-99) 165 mg/dL (70-99) Test 06/20/18 05:30 06/20/18 07:11 Prothrombin Time 24.5 SEC (11.7-14.0) Prothromb Time International Ratio 2.2 (0.8-1.1) Sodium Level 140 mmol/L (136-145) Potassium Level 3.9 mmol/L (3.5-5.1) Chloride Level 102 mmol/L (98-107) Carbon Dioxide Level 31 mmol/L (21-32) Anion Gap 7 (6-14) Blood Urea Nitrogen 12 mg/dL (8-26) Creatinine 1.1 mg/dL (0.7-1.3) Estimated GFR (Cockcroft-Gault) 65.1 Glucose Level 164 mg/dL (70-99) Calcium Level 8.6 mg/dL (8.5-10.1) Glucose (Fingerstick) 150 mg/dL (70-99) Laboratory Tests Test 06/19/18 11:34 06/19/18 16:46 06/19/18 20:48 06/20/18 05:30 Glucose (Fingerstick) 136 mg/dL (70-99) 191 mg/dL (70-99) 165 mg/dL (70-99) Prothrombin Time 24.5 SEC (11.7-14.0) Prothromb Time International Ratio 2.2 (0.8-1.1) Sodium Level 140 mmol/L (136-145) Potassium Level 3.9 mmol/L (3.5-5.1) Chloride Level 102 mmol/L (98-107) Carbon Dioxide Level 31 mmol/L (21-32) Anion Gap 7 (6-14) Blood Urea Nitrogen 12 mg/dL (8-26) Creatinine 1.1 mg/dL (0.7-1.3) Estimated GFR (Cockcroft-Gault) 65.1 Glucose Level 164 mg/dL (70-99) Calcium Level 8.6 mg/dL (8.5-10.1) Test 06/20/18 07:11 Glucose (Fingerstick) 150 mg/dL (70-99) Medications Active Scripts Medications Dose Route/Sig Max Daily Dose Days Date Category Dose Instructions Digoxin 125 Mcg Tablet 125 Mcg PO DAILY 05/15/16 Rx Furosemide 40 Mg Tablet 40 Mg PO DAILY 05/15/16 Rx Zonisamide 100 Mg Capsule 400 Mg PO DAILY 05/11/16 Reported Percocet 5-325 Mg Tablet (Oxycodone/Acetaminophen) 1 Each Tablet 1 Tab PO PRN Q4HRS PRN 05/11/16 Reported Multivitamins (Multivitamin) 1 Each Tablet 1 Tab PO DAILY 05/11/16 Reported Levetiracetam 250 Mg Tablet 1,250 Mg PO BID 05/11/16 Reported Novolin N (Nph, Human Insulin Isophane) 100 Unit/1 Ml Vial Unknown Dose SQ 05/11/16 Reported Atorvastatin Calcium 80 Mg Tablet 1 Tab PO DAILY 05/11/16 Reported Acetaminophen 500 Mg Tablet 1 Tab PO PRN Q6HRS PRN 05/11/16 Reported Metoprolol Tartrate 50 Mg Tablet 50 Mg PO BID 02/24/16 Rx [Warfarin Sodium] 1 EACH Each 1 Each MC PRN DAILY PRN 02/24/16 Rx Lisinopril 20 Mg Tablet 20 Mg PO DAILY 02/24/16 Rx Duoneb 0.5-3(2.5) Mg/3 Ml (Albuterol/Ipratropium) 3 Ml Ampul.neb 3 Ml NEB Q4HRS W/A 30 02/24/16 Rx Hydralazine Hcl 10 Mg Tablet 10 Mg PO TID 02/24/16 Rx Albuterol Sulfate Hfa Inhaler (Albuterol Sulfate) 8.5 Gm Hfa.aer.ad 2 Puff IH PRN Q6HRS PRN 02/20/13 Reported Aspirin Ec (Aspirin) 325 Mg Tablet.dr 81 Mg PO DAILY 02/20/13 Reported Crestor (Rosuvastatin Calcium) 40 Mg Tablet 40 Mg PO DAILY 02/19/13 Reported Warfarin Sodium 5 Mg Tablet 6 Mg PO DAILY 02/19/13 Reported Warfarin Sodium 2.5 Mg Tablet 2.5 Mg PO 3X/WEEK 02/19/13 Reported monday,monday, Gabapentin (Gabapentin) 300 Mg Capsule 300 Mg PO DAILY 02/19/13 Reported Risperidone 1 Mg Tablet 1 Mg PO HS 02/19/13 Reported Novolog (Insulin Aspart) 100 Unit/1 Ml Vial 10 Unit SQ DAILYAC 02/19/13 Reported Oxycodone-Acetaminophen 10-325 (Oxycodone Hcl/Acetaminophen) 1 Each Tablet 1 Each PO PRN Q6HRS 02/19/13 Reported Potassium 99 Mg Tablet 20 Meq PO DAILY 02/19/13 Reported Prednisone (Prednisone) 10 Mg Tablet 10 Mg PO DAILY 02/19/13 Reported Metformin Hcl 500 Mg Tablet 1,000 Mg PO BIDBFRMEAL 02/19/[address] CHEST IMPRESSION: 1. Bilateral airspace disease with more focal areas of consolidation in the right upper lobe and superior segment left lower lobe, likely related to pneumonia. 2. Moderate size bilateral pleural effusions. 3. Mediastinal and right hilar lymphadenopathy, likely reactive. Follow-up imaging after treatment to ensure resolution. 4. Aneurysmal dilation of the ascending thoracic aorta, unchanged. Electronically signed by: John Blunt MD (06/20/2018 8:41 AM) [facility] Impression . IMPRESSION: 1. Acute hypoxemic respiratory failure. 2. Euctl-aj-[id number] diastolic heart failure. 3. Atrial fibrillation with rapid ventricular response. 4. Coronary artery disease, status post coronary artery bypass grafting. 5. Leukocytosis, suspect reactive. 6. 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 7. Peripheral vascular disease. 8. Functional quadriplegia. 9. Accelerated hypertension. 10. Severe protein malnutrition. 11 h/o MRSA bacteremia with sepsis from 05/18. D/c Dapto till 07/02 -CRYSTAL done no vegetations 05/21; BC from 05/20 & onward were neg (PER ID) 12 NEGATIVE LEFT UPPER EXT VENOUS 13. CMP EF 35% 14. ABNORMAL CXR/ CT CHEST 06/20. Bilateral airspace disease with more focal areas of consolidation in the right upper lobe and superior segment left lower lobe, likely related to pneumonia./ Moderate size bilateral pleural effusions.due to low oncotic pressure Plan . ANTIBX PER ID repeat cxr in a week GI WORK UP PRN BIPAP U/S UPPER L EXT NEGATIVE DIURESE PLANS FOR SKILL PER PCP RAMESH SANTIAGO MD June 20, 2018 10:15
[2018-06-20] MEDS: DAPTOmycin (GENERIC) IVPB 600 MG in IV NORMAL SALINE 50ML 50 ML IV SCH (10:34)
--- NOTE | 2018-06-20 13:02 | NUR ---
Pharmacy Warfarin Dosing Note S: Pharmacy consulted to assist with anticoagulation therapy O: VICKI BRAUN is a 78 year old M with Atrial Fibrillation, Bioprosthetic Valve LABS: Last INR: 2.2 Last HGB: 9.4 Last HCT: 29.5 Last PLT: 265 Last dose of 5 mg given on 06/19/18 at 1600 Vitamin K given: Y A:INR of 2.2 is within desired range. Target range for this patient is: 2 - 3 P: Warfarin dose: 4 mg Today at 1600 Bridge Therapy: not needed Next INR due 06/21/18 Pharmacy anticoagulation service will continue to follow. AMER[facility] GONGORA [facility], 06/20/18 0738
--- NOTE | 2018-06-20 15:04 | NUR ---
Wound care: Patient seen per wound care follow up. See wound assessment. All Wounds cleansed, assessed, measured, and pictured if Monday pic was taken. Patient has multiple pressure ulcers and one DFU to left lateral ankle. Dressings applied and patient tolerated well. Dressing change instructions left in room. Patient repositioned using wedge to left side. Heel medix placed back on left foot. Left arm elevated on pillows as there is large amount of edema to entire extremity but does appear to be less than last week when seen in ICU. Bed lowered and call light in reach. Patient appears lethargic but responding. Patient on P-500 bed at this time. Christine at bedside. Will follow patient regarding wound care.
--- NOTE | 2018-06-20 15:52 | NUR ---
Patient was unable to open eyes or respond, did respond to sternal rub, vitals were BS 1454, BP 180/56, O2 98%, HR 79. stated he said he felt like he was dying, patient still not very responsive rapid called.
--- NOTE | 2018-06-20 15:55 | NUR ---
Called to rapid response. RN reports that pt has a change in LOC. at bedside and states that this in not his normal. Sternal rub preformed and patient opens eyes and grabs had and cusses at me. Chart reviewed and noticed that patient only slept for about 3 hours during the night. Informed the and agreed to let him sleep for a little while and then reevaluate. RN updated. Addendum: 06/20/18 at 1600 by NENITA BETTS RN Amended: Links added.
[2018-06-20] MEDS ORDERED: WARFARIN 4 MG TABLET. PO ONE (16:00)
[2018-06-20] MEDS: ATORVASTATIN CALCIUM 40 MG TABLET. PO SCH (21:17)
[2018-06-20] MEDS: risperiDONE 1 MG TABLET. PO SCH (21:18)
--- NOTE | 2018-06-20 22:44 | NUR ---
Called Rapid Response. Pt has a change in LOC and did not respond to a sternal rub. ICU nurse came and did a sternal rub and pt responded but is still groggy. This is not his normal reaction. He is usually awake and yelling for help. Medication held since Pt is will not wake up completely to take them. Will continue to monitor.
--- NOTE | 2018-06-20 23:30 | NUR ---
Rapid response called on patient for AMS. Patient's nurse told this nurse that the patient wasn't arousable to sternal rub when yesterday he was yelling out. Patient did not respond when this nurse called his name but did open eyes and mumbled words to sternal rub. VSS. A rapid response was called on patient earlier in the day for this same issue. Patient will remain on unit.
[2018-06-21 03:00] VITALS: BP 158/113
[2018-06-21 05:54] LABS: PROTHROMBIN TIME PATIENT 25.2 SEC (11.7-14.0)
[2018-06-21 06:01] LABS: CALCIUM 8.6 mg/dL (8.5-10.1); CREATININE 0.9 mg/dL (0.7-1.3); POTASSIUM 4.1 mmol/L (3.5-5.1)
[2018-06-21 07:00] VITALS: BP 136/48
[2018-06-21] MEDS: IPRATRPIUM/ALBUTEROL 0.5/2.5MG 3 ML NEBU. NEB SCH ×4 (07:18→20:44)
[2018-06-21] MEDS: POTASSIUM CHLORIDE 20 MEQ TABLET.ER. PO SCH (08:27)
[2018-06-21] MEDS: levETIRAcetam 250 MG TABLET PO SCH ×2 (08:27→22:02)
[2018-06-21] MEDS: ZONISAMIDE 100 MG CAPSULE. PO SCH (08:27)
[2018-06-21] MEDS: CEPHALEXIN 250 MG CAPSULE. PO SCH ×4 (08:28→22:03)
[2018-06-21] MEDS: FUROSEMIDE 40 MG TABLET. PO SCH (08:28)
[2018-06-21] MEDS: LISINOPRIL 20 MG TABLET PO SCH (08:28)
[2018-06-21] MEDS: GABAPENTIN 300 MG CAPSULE. PO SCH (08:28)
[2018-06-21] MEDS: ASPIRIN ENTERIC COATED 81 MG TABLET.DR. PO SCH (08:28)
[2018-06-21] MEDS: DIGOXIN 125 MCG TABLET. PO SCH (08:28)
[2018-06-21] MEDS: METOPROLOL TART IMMED RELEASE 50 MG TABLET. PO SCH ×2 (08:29→22:04)
[2018-06-21] MEDS: MULTIVITAMIN with MINERAL TABLET. PO SCH (08:29)
[2018-06-21] MEDS: hydrALAZINE 10 MG TABLET PO SCH ×3 (08:29→22:03)
[2018-06-21] MEDS: INSULIN LISPRO 300 UNITS/3 ML INSULN.PEN. SQ SCH ×3 (08:35→17:00)
--- NOTE | 2018-06-21 09:16 | PDOC ---
PROGRESS NOTES Chief Complaint Chief Complaint Pneumonia with right perihilar infiltrate. Leukocytosis Chronic Crawley with pyuria MRSA bacteremia with sepsis from 05/18. D/c Dapto till 07/02 Acute on chronic CHF MRSA and Enterobacter ( R Augmentin/cefuroxime) infection PSA ( R quinolones & I imipenem) infection Bioprosthetic aortic valve A- fib Anticoagulation on warfarin Diabetes Type II Seizure disorder, on Keppra Noncompliance New anemia with possible GI bleed s/p blood transfusion History of Present Illness History of Present Illness Patient seen and examined. I discussed the case at length with his and RN, AMAURI. Sitting up in bed this morning, breathing a bit better. At his baseline confusion per . Did not sleep well last night He denies dark stools or bloody stools or hemoptysis. Urine returned with 100K GNR - e coli sensitive. Wishes for SNF on d/c, needs daptomycin until 07/02 and ceftin until 06/22. CXR still with bilateral opacities. Plan: Antibiotics per ID, needs a bit more diuresis, D/C to SNF - is ready He needs to continue daptomycin, failed home health, needs placement at least until 07/02 to complete daptomycin course, has daptomycin sitting at home that will in 48 hours if not used per his . Vitals Vitals Vital Signs Date Time Temp Pulse Resp B/P (MAP) Pulse Ox O2 Delivery O2 Flow Rate FiO2 06/21/18 08:29 69 136/48 06/21/18 08:00 Nasal Cannula 2.0 06/21/18 07:21 97 06/21/18 07:00 97.7 18 97.7 Physical Exam Physical Exam GENERAL: Propped up in bed, alert, NAD HEENT: Pupils equally round and reactive. Normal conjunctivae. Oral oropharynx pink and moist. No thrush. NECK: Supple. LUNGS: Improved aeration HEART: S1 and S2 irregular. ABDOMEN: Obese, soft and nontender with bowel sounds present. GENITOURINARY: Indwelling Crawley out. EXTREMITIES: Left hand is swollen. No redness, warmth or limited range of motion. Left lower extremity 1+ edema. No cyanosis. Right BKA incision healing well, stables still in place. no redness or drainage SKIN: Warm without generalized rash. Multiple tattoos. A small superficial u lcer, left lateral malleolus area without signs of infection - healing NEUROLOGIC: Alert and responding appropriately. Poor historian. RUE-PICC (POA) without signs of any complications. 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 taken down in the distant past) Extremities: Other (he is bilateral amputee with wound dressing he also has a stump protector on the right and a knee brace on the right) Labs LABS Laboratory Tests Test 06/20/18 11:52 06/20/18 21:18 06/20/18 22:33 06/21/18 05:00 Glucose (Fingerstick) 192 mg/dL (70-99) 209 mg/dL (70-99) 193 mg/dL (70-99) Prothrombin Time 25.2 SEC (11.7-14.0) Prothromb Time International Ratio 2.3 (0.8-1.1) Sodium Level 140 mmol/L (136-145) Potassium Level 4.1 mmol/L (3.5-5.1) Chloride Level 102 mmol/L (98-107) Carbon Dioxide Level 33 mmol/L (21-32) Anion Gap 5 (6-14) Blood Urea Nitrogen 12 mg/dL (8-26) Creatinine 0.9 mg/dL (0.7-1.3) Estimated GFR (Cockcroft-Gault) 82.0 Glucose Level 178 mg/dL (70-99) Calcium Level 8.6 mg/dL (8.5-10.1) Test 06/21/18 07:49 Glucose (Fingerstick) 163 mg/dL (70-99) Assessment and Plan Assessmemt and Plan Problems Medical Problems: (1) Pneumonia Status: Acute (2) Sepsis Status: Acute (3) Tachycardia Status: Acute Comment Review of Relevant I have reviewed the following items navi (where applicable) has been applied. Labs Laboratory Tests Test 06/19/18 09:35 06/19/18 11:34 06/19/18 16:46 06/19/18 20:48 White Blood Count 9.3 x10^3/uL (4.0-11.0) Red Blood Count 3.49 x10^6/uL (4.30-5.70) Hemoglobin 9.4 g/dL (13.0-17.5) Hematocrit 29.5 % (39.0-53.0) Mean Corpuscular Volume 85 fL (79-100) Mean Corpuscular Hemoglobin 27 pg (25-35) Mean Corpuscular Hemoglobin Concent 32 g/dL (31-37) Red Cell Distribution Width 16.8 % (11.5-14.5) Platelet Count 265 x10^3/uL (140-400) Neutrophils (%) (Auto) 78 % (31-73) Lymphocytes (%) (Auto) 7 % (24-48) Monocytes (%) (Auto) 10 % (0-9) Eosinophils (%) (Auto) 6 % (0-3) Basophils (%) (Auto) 0 % (0-3) Neutrophils # (Auto) 7.3 x10^3uL (1.8-7.7) Lymphocytes # (Auto) 0.6 x10^3/uL (1.0-4.8) Monocytes # (Auto) 0.9 x10^3/uL (0.0-1.1) Eosinophils # (Auto) 0.5 x10^3/uL (0.0-0.7) Basophils # (Auto) 0.0 x10^3/uL (0.0-0.2) Prothrombin Time 20.5 SEC (11.7-14.0) Prothromb Time International Ratio 1.8 (0.8-1.1) Sodium Level 144 mmol/L (136-145) Potassium Level 3.6 mmol/L (3.5-5.1) Chloride Level 105 mmol/L (98-107) Carbon Dioxide Level 31 mmol/L (21-32) Anion Gap 8 (6-14) Blood Urea Nitrogen 14 mg/dL (8-26) Creatinine 1.1 mg/dL (0.7-1.3) Estimated GFR (Cockcroft-Gault) 65.1 Glucose Level 180 mg/dL (70-99) Calcium Level 8.4 mg/dL (8.5-10.1) Glucose (Fingerstick) 136 mg/dL (70-99) 191 mg/dL (70-99) 165 mg/dL (70-99) Test 06/20/18 05:30 06/20/18 07:11 06/20/18 11:52 06/20/18 21:18 Prothrombin Time 24.5 SEC (11.7-14.0) Prothromb Time International Ratio 2.2 (0.8-1.1) Sodium Level 140 mmol/L (136-145) Potassium Level 3.9 mmol/L (3.5-5.1) Chloride Level 102 mmol/L (98-107) Carbon Dioxide Level 31 mmol/L (21-32) Anion Gap 7 (6-14) Blood Urea Nitrogen 12 mg/dL (8-26) Creatinine 1.1 mg/dL (0.7-1.3) Estimated GFR (Cockcroft-Gault) 65.1 Glucose Level 164 mg/dL (70-99) Calcium Level 8.6 mg/dL (8.5-10.1) Glucose (Fingerstick) 150 mg/dL (70-99) 192 mg/dL (70-99) 209 mg/dL (70-99) Test 06/20/18 22:33 06/21/18 05:00 06/21/18 07:49 Glucose (Fingerstick) 193 mg/dL (70-99) 163 mg/dL (70-99) Prothrombin Time 25.2 SEC (11.7-14.0) Prothromb Time International Ratio 2.3 (0.8-1.1) Sodium Level 140 mmol/L (136-145) Potassium Level 4.1 mmol/L (3.5-5.1) Chloride Level 102 mmol/L (98-107) Carbon Dioxide Level 33 mmol/L (21-32) Anion Gap 5 (6-14) Blood Urea Nitrogen 12 mg/dL (8-26) Creatinine 0.9 mg/dL (0.7-1.3) Estimated GFR (Cockcroft-Gault) 82.0 Glucose Level 178 mg/dL (70-99) Calcium Level 8.6 mg/dL (8.5-10.1) Laboratory Tests Test 06/20/18 11:52 06/20/18 21:18 06/20/18 22:33 06/21/18 05:00 Glucose (Fingerstick) 192 mg/dL (70-99) 209 mg/dL (70-99) 193 mg/dL (70-99) Prothrombin Time 25.2 SEC (11.7-14.0) Prothromb Time International Ratio 2.3 (0.8-1.1) Sodium Level 140 mmol/L (136-145) Potassium Level 4.1 mmol/L (3.5-5.1) Chloride Level 102 mmol/L (98-107) Carbon Dioxide Level 33 mmol/L (21-32) Anion Gap 5 (6-14) Blood Urea Nitrogen 12 mg/dL (8-26) Creatinine 0.9 mg/dL (0.7-1.3) Estimated GFR (Cockcroft-Gault) 82.0 Glucose Level 178 mg/dL (70-99) Calcium Level 8.6 mg/dL (8.5-10.1) Test 06/21/18 07:49 Glucose (Fingerstick) 163 mg/dL (70-99) Microbiology 06/15/18 Blood Culture - Final, Complete NO GROWTH AFTER 5 DAYS 06/15/18 Urine Culture - Final, Complete 06/15/18 Urine Culture Result 1 (FELICITA) - Final, Complete 06/15/18 Antimicrobic Susceptibility - Final, Complete Medications Current Medications Albuterol/ Ipratropium (Duoneb) 3 ml 1X ONCE NEB Last administered on 06/15/18 at 08:24; Start 06/15/18 at 08:15; Stop 06/15/18 at 08:16; Status DC Methylprednisolone Sodium Succinate (SOLU-Medrol 125MG VIAL) 125 mg 1X ONCE IV Last administered on 06/15/18at 08:46; Start 06/15/18 at 09:00; Stop 06/15/18 at 09:01; Status DC Vancomycin HCl (Vanco Per Pharmacy) 1 each PRN DAILY PRN MC SEE COMMENTS Last administered on 06/18/18at 09:38; Start 06/15/18 at 08:45; Stop 06/19/18 at 09:42; Status DC Piperacillin Sod/ Tazobactam Sod (Zosyn Per Pharmacy) 1 each PRN DAILY PRN MC SEE COMMENTS; Start 06/15/18 at 08:45; Stop 06/18/18 at 13:55; Status DC Sodium Chloride 500 ml @ 500 mls/hr 1X ONCE IV Last administered on 06/15/18at 08:47; Start 06/15/18 at 08:45; Stop 06/15/18 at 09:44; Status DC Vancomycin HCl 2 gm/Sodium Chloride 500 ml @ 250 mls/hr 1X ONCE IV Last administered on 06/15/18at 09:22; Start 06/15/18 at 09:15; Stop 06/15/18 at 11:14; Status DC Piperacillin Sod/ Tazobactam Sod 4.5 gm/Sodium Chloride 100 ml @ 200 mls/hr 1X ONCE IV Last administered on 06/15/18at 08:47; Start 06/15/18 at 09:15; Stop 06/15/18 at 09:44; Status DC Ondansetron HCl (Zofran) 4 mg PRN Q8HRS PRN IV NAUSEA/VOMITING; Start 06/15/18 at 08:45; Stop 06/16/18 at 08:44; Status DC Morphine Sulfate (Morphine Sulfate) 2 mg PRN Q2HR PRN IV PAIN; Start 06/15/18 at 08:45; Stop 06/16/18 at 08:44; Status DC Sodium Chloride 1,000 ml @ 100 mls/hr Q10H IV Last administered on 06/15/18at 09:17; Start 06/15/18 at 08:35; Stop 06/15/18 at 12:34; Status DC Albuterol/ Ipratropium (Duoneb) 3 ml RTQID NEB Last administered on 06/21/18at 07:18; Start 06/15/18 at 08:45 Acetaminophen (Tylenol) 500 mg PRN Q6HRS PRN PO MILD PAIN / TEMP; Start 06/15/18 at 08:45; Stop 06/15/18 at 14:08; Status DC Ondansetron HCl (Zofran) 4 mg PRN Q6HRS PRN IV NAUSEA/VOMITING; Start 06/15/18 at 08:45 Aspirin (Ecotrin) 81 mg DAILY PO Last administered on 06/15/18at 09:00; Start 06/15/18 at 09:00; Stop 06/16/18 at 08:34; Status DC Digoxin (Lanoxin) 125 mcg DAILY PO Last administered on 06/21/18at 08:28; Start 06/15/18 at 09:00 Furosemide (Lasix) 40 mg DAILY PO Last administered on 06/21/18 08:28; Start 06/15/18 at 09:00 Gabapentin (Neurontin) 300 mg DAILY PO Last administered on 06/21/18 08:28; Start 06/15/18 at 09:00 Lisinopril (Prinivil) 20 mg DAILY PO Last administered on 06/21/18 08:28; Start 06/15/18 at 09:00 Metoprolol Tartrate (Lopressor) 50 mg BID PO Last administered on 06/21/18 08:29; Start 06/15/18 at 09:00 Acetaminophen (Tylenol) 500 mg PRN Q6HRS PRN PO MILD PAIN / TEMP; Start 06/15/18 at 09:30 Atorvastatin Calcium (Lipitor) 80 mg QHS PO Last administered on 06/20/18 21:17; Start 06/15/18 at 21:00 Hydralazine HCl (Apresoline) 10 mg TID PO Last administered on 06/21/18 08:29; Start 06/15/18 at 10:00 Non-Formulary Medication (Insulin Aspart (Novolog)) 10 unit DAILYAC SQ ; Start 06/16/18 at 07:30; Status UNV Levetiracetam (Keppra) 1,250 mg BID PO Last administered on 06/21/18 08:27; Start 06/15/18 at 09:30 Multivitamins (Thera M Plus) 1 tab DAILY PO Last administered on 06/21/18 08:29; Start 06/15/18 at 09:30 Risperidone (RisperDAL) 1 mg QHS PO Last administered on 06/20/18 21:18; Start 06/15/18 at 09:45 Non-Formulary Medication (Rosuvastatin Calcium (Crestor)) 40 mg DAILY PO ; Start 06/15/18 at 09:00; Status UNV Zonisamide (Zonegran) 400 mg DAILY PO Last administered on 06/21/18 08:27; Start 06/15/18 at 09:30 Insulin Human Lispro (HumaLOG) 0-9 UNITS TIDWMEALS SQ Last administered on 06/21/18 08:35; Start 06/15/18 at 09:20 Dextrose (Dextrose 50%-Water Syringe) 12.5 gm PRN Q15MIN PRN IV SEE COMMENTS; Start 06/15/18 at 08:45 Warfarin Sodium (Coumadin Per Pharmacy) 1 each PRN DAILY PRN MC SEE COMMENTS Last administered on 06/20/18at 13:01; Start 06/15/18 at 08:45 Warfarin Sodium (Coumadin - No Dose Today) 1 each 1X WARF ONCE MC ; Start 06/15/18 at 16:00; Stop 06/15/18 at 16:01; Status DC Piperacillin Sod/ Tazobactam Sod 4.5 gm/Sodium Chloride 100 ml @ 200 mls/hr Q6HRS IV Last administered on 06/18/18at 12:51; Start 06/15/18 at 17:00; Stop 06/18/18 at 13:55; Status DC Vancomycin HCl 1.5 gm/Sodium Chloride 500 ml @ 250 mls/hr Q18H IV Last administered on 06/16/18at 21:49; Start 06/16/18 at 03:00; Stop 06/17/18 at 16:03; Status DC Vancomycin HCl (Vancomycin Trough Level) 1 each 1X ONCE MC Last administered on 06/17/18at 14:30; Start 06/17/18 at 14:30; Stop 06/17/18 at 14:31; Status DC Aspirin (Ecotrin) 81 mg DAILY PO Last administered on 06/21/18at 08:28; Start 06/16/18 at 09:00 Phytonadione (Mephyton Oral Soln) 5 mg 1X ONCE PO Last administered on 06/16/18at 11:02; Start 06/16/18 at 11:00; Stop 06/16/18 at 11:01; Status DC Warfarin Sodium (Coumadin - No Dose Today) 1 each 1X WARF ONCE MC ; Start 06/16/18 at 16:00; Stop 06/16/18 at 16:01; Status DC Oxycodone/ Acetaminophen (Percocet 5/325) 1 tab PRN Q4HRS PRN PO SEVERE PAIN 7- 10 Last administered on 06/20/18at 21:17; Start 06/17/18 at 03:15 Warfarin Sodium (Coumadin) 3 mg 1X WARF ONCE PO Last administered on 06/17/18at 17:29; Start 06/17/18 at 16:00; Stop 06/17/18 at 16:01; Status DC Vancomycin HCl 1.5 gm/Sodium Chloride 500 ml @ 250 mls/hr Q24H IV Last administered on 06/18/18at 22:56; Start 06/17/18 at 21:00; Stop 06/19/18 at 09:42; Status DC Vancomycin HCl (Vancomycin Trough Level) 1 each 1X ONCE MC ; Start 06/19/18 at 20:30; Stop 06/19/18 at 20:30; Status DC Albuterol Sulfate (Ventolin Neb Soln) 2.5 mg RTQID PRN IH WHEEZING Last administered on 06/20/18at 18:27; Start 06/17/18 at 17:30 Potassium Chloride (Klor-Con) 40 meq DAILY PO Last administered on 06/21/18at 08:27; Start 06/18/18 at 09:00 Warfarin Sodium (Coumadin) 5 mg 1X WARF ONCE PO Last administered on 06/18/18at 22:21; Start 06/18/18 at 16:00; Stop 06/18/18 at 16:01; Status DC Lactobacillus Rhamnosus (Culturelle) 1 cap BID PO ; Start 06/18/18 at 12:00; Status Cancel Piperacillin Sod/ Tazobactam Sod 3.375 gm/Sodium Chloride 50 ml @ 100 mls/hr Q6HRS IV Last administered on 06/19/18at 06:43; Start 06/18/18 at 18:00; Stop 06/19/18 at 09:42; Status DC Daptomycin 600 mg/ Sodium Chloride 50 ml @ 100 mls/hr Q24H IV Last administered on 06/20/18at 10:34; Start 06/19/18 at 10:30 Cephalexin HCl (Keflex) 500 mg QID PO Last administered on 06/21/18at 08:28; Start 06/19/18 at 13:00 Warfarin Sodium (Coumadin) 5 mg 1X WARF ONCE PO Last administered on 06/19/18at 16:00; Start 06/19/18 at 16:00; Stop 06/19/18 at 16:01; Status DC Warfarin Sodium (Coumadin) 4 mg 1X WARF ONCE PO Last administered on 06/20/18at 16:00; Start 06/20/18 at 16:00; Stop 06/20/18 at 16:01; Status DC Active Scripts Active Digoxin 125 Mcg Tablet 125 Mcg PO DAILY Furosemide 40 Mg Tablet 40 Mg PO DAILY Metoprolol Tartrate 50 Mg Tablet 50 Mg PO BID [Warfarin Sodium] 1 EACH Each 1 Each MC PRN DAILY PRN Lisinopril 20 Mg Tablet 20 Mg PO DAILY Duoneb 0.5-3(2.5) Mg/3 Ml (Albuterol/Ipratropium) 3 Ml Ampul.neb 3 Ml NEB Q4HRS W/A 30 Days Hydralazine Hcl 10 Mg Tablet 10 Mg PO TID Reported Zonisamide 100 Mg Capsule 400 Mg PO DAILY Percocet 5-325 Mg Tablet (Oxycodone/Acetaminophen) 1 Each Tablet 1 Tab PO PRN Q4HRS PRN Multivitamins (Multivitamin) 1 Each Tablet 1 Tab PO DAILY Levetiracetam 250 Mg Tablet 1,250 Mg PO BID Novolin N (Nph, Human Insulin Isophane) 100 Unit/1 Ml Vial Unknown Dose SQ Atorvastatin Calcium 80 Mg Tablet 1 Tab PO DAILY Acetaminophen 500 Mg Tablet 1 Tab PO PRN Q6HRS PRN Albuterol Sulfate Hfa Inhaler (Albuterol Sulfate) 8.5 Gm Hfa.aer.ad 2 Puff IH PRN Q6HRS PRN Aspirin Ec (Aspirin) 325 Mg Tablet.dr 81 Mg PO DAILY Crestor (Rosuvastatin Calcium) 40 Mg Tablet 40 Mg PO DAILY Warfarin Sodium 5 Mg Tablet 6 Mg PO DAILY Warfarin Sodium 2.5 Mg Tablet 2.5 Mg PO 3X/WEEK monday,monday, Gabapentin (Gabapentin) 300 Mg Capsule 300 Mg PO DAILY Risperidone 1 Mg Tablet 1 Mg PO HS Novolog (Insulin Aspart) 100 Unit/1 Ml Vial 10 Unit SQ DAILYAC Oxycodone-Acetaminophen 10-325 (Oxycodone Hcl/Acetaminophen) 1 Each Tablet 1 Each PO PRN Q6HRS Potassium 99 Mg Tablet 20 Meq PO DAILY Prednisone (Prednisone) 10 Mg Tablet 10 Mg PO DAILY Metformin Hcl 500 Mg Tablet 1,000 Mg PO BIDBFRMEAL Vitals/I & O Vital Sign - Last 24 Hours 06/20/18 06/20/18 06/20/18 06/20/18 11:00 12:03 13:40 15:00 Temp 98.0 97.9 98.0 97.9 Pulse 83 83 79 Resp 17 18 B/P (MAP) 173/76 (108) 173/76 180/56 (97) Pulse Ox 96 96 98 O2 Delivery Nasal Cannula Nasal Cannula Nasal Cannula O2 Flow Rate 3.0 2.0 3.0 06/20/18 06/20/18 06/20/18 06/20/18 15:49 18:27 19:00 19:47 Temp 98.1 98.1 Pulse 78 Resp 18 B/P (MAP) 133/51 (78) Pulse Ox 93 100 93 O2 Delivery Nasal Cannula Nasal Cannula Nasal Cannula Nasal Cannula O2 Flow Rate 2.0 2.0 3.0 2.0 06/20/18 06/20/18 06/20/18 06/20/18 20:00 21:17 21:19 21:20 Pulse 65 65 Resp 16 B/P (MAP) 155/62 155/62 Pulse Ox 93 O2 Delivery Nasal Cannula Nasal Cannula O2 Flow Rate 3.0 3.0 06/20/18 06/20/18 06/20/18 06/21/18 22:17 22:45 23:00 03:00 Temp 99.4 98.1 99.4 98.1 Pulse 88 87 71 Resp 18 16 18 18 B/P (MAP) 145/47 (79) 163/47 (85) 158/113 (128) Pulse Ox 99 97 95 O2 Delivery Nasal Cannula Nasal Cannula Nasal Cannula Nasal Cannula O2 Flow Rate 3.0 3.0 3.0 3.0 06/21/18 06/21/18 06/21/18 06/21/18 07:00 07:21 08:00 08:28 Temp 97.7 97.7 Pulse 69 69 Resp 18 B/P (MAP) 136/48 (77) 136/48 Pulse Ox 94 97 O2 Delivery Nasal Cannula Nasal Cannula Nasal Cannula O2 Flow Rate 3.0 2.0 2.0 06/21/18 06/21/18 06/21/18 08:28 08:29 08:29 Pulse 69 69 69 B/P (MAP) 136/48 136/48 136/48 Intake and Output 06/20/18 06/20/18 06/21/18 14:59 22:59 06:59 Intake Total 375 ml 50 ml Balance 375 ml 50 ml NEHAL NELSON MD June 21, 2018 09:16
[2018-06-21] MEDS: DAPTOmycin (GENERIC) IVPB 600 MG in IV NORMAL SALINE 50ML 50 ML IV SCH (10:46)
[2018-06-21 11:00] VITALS: BP 155/62
--- NOTE | 2018-06-21 11:04 | NUR ---
Pharmacy Warfarin Dosing Note S:Pharmacy consulted to assist with anticoagulation therapy started with target INR: 2 -3 O:VICKI BRAUN is a 78 year old M with Atrial Fibrillation Bioprosthetic Valve LABS: Last INR: 2.3 Last HGB: 9.4 Last HCT: 29.5 Last PLT: 265 Last dose of 4 mg given on 06/20/18 at 1600 Previous Regimen: Vitamin K given: Y Drug Interaction Changes: Ongoing Drug Interactions: A:INR of 2.3 is within desired range. Target range for this patient is: 2 -3 P: Warfarin dose: 4 mg Today at 1600 Bridge Therapy: NONE Next INR due 06/22/18 Pharmacy anticoagulation service will continue to follow. MATT FAYE [facility], 06/21/18 [id number]
--- NOTE | 2018-06-21 12:13 | NUR ---
SW following for discharge planning. Discussed with RN, Naima Sandoval still waiting for pt's insurance to approve or deny SNU. AMAURI spoke with pt's dtr, Gwendolyn to provide update and advise medicaid application will be available for pt's . AMAURI left medicaid application with RN as pt's was not at [facility]. AMAURI will continue to follow.
--- NOTE | 2018-06-21 12:43 | PDOC ---
PULMONARY PROGRESS NOTES Subjective PT SLEEPING, DID NOT SLEEP WELL LAST NIGHT Vitals Vital Signs Date Time Temp Pulse Resp B/P (MAP) Pulse Ox O2 Delivery O2 Flow Rate FiO2 06/21/18 11:34 Nasal Cannula 2.0 06/21/18 11:00 98.0 68 18 155/62 (93) 96 98.0 Lungs: Clear Cardiovascular: S1 Abdomen: Soft, Non-tender, Other Extremities: Other (right BKA, 1+edema left) Labs Laboratory Tests Test 06/19/18 16:46 06/19/18 20:48 06/20/18 05:30 06/20/18 07:11 Glucose (Fingerstick) 191 mg/dL (70-99) 165 mg/dL (70-99) 150 mg/dL (70-99) Prothrombin Time 24.5 SEC (11.7-14.0) Prothromb Time International Ratio 2.2 (0.8-1.1) Sodium Level 140 mmol/L (136-145) Potassium Level 3.9 mmol/L (3.5-5.1) Chloride Level 102 mmol/L (98-107) Carbon Dioxide Level 31 mmol/L (21-32) Anion Gap 7 (6-14) Blood Urea Nitrogen 12 mg/dL (8-26) Creatinine 1.1 mg/dL (0.7-1.3) Estimated GFR (Cockcroft-Gault) 65.1 Glucose Level 164 mg/dL (70-99) Calcium Level 8.6 mg/dL (8.5-10.1) Test 06/20/18 11:52 06/20/18 21:18 06/20/18 22:33 06/21/18 05:00 Glucose (Fingerstick) 192 mg/dL (70-99) 209 mg/dL (70-99) 193 mg/dL (70-99) Prothrombin Time 25.2 SEC (11.7-14.0) Prothromb Time International Ratio 2.3 (0.8-1.1) Sodium Level 140 mmol/L (136-145) Potassium Level 4.1 mmol/L (3.5-5.1) Chloride Level 102 mmol/L (98-107) Carbon Dioxide Level 33 mmol/L (21-32) Anion Gap 5 (6-14) Blood Urea Nitrogen 12 mg/dL (8-26) Creatinine 0.9 mg/dL (0.7-1.3) Estimated GFR (Cockcroft-Gault) 82.0 Glucose Level 178 mg/dL (70-99) Calcium Level 8.6 mg/dL (8.5-10.1) Test 06/21/18 07:49 06/21/18 11:43 Glucose (Fingerstick) 163 mg/dL (70-99) 163 mg/dL (70-99) Laboratory Tests Test 06/20/18 21:18 06/20/18 22:33 06/21/18 05:00 06/21/18 07:49 Glucose (Fingerstick) 209 mg/dL (70-99) 193 mg/dL (70-99) 163 mg/dL (70-99) Prothrombin Time 25.2 SEC (11.7-14.0) Prothromb Time International Ratio 2.3 (0.8-1.1) Sodium Level 140 mmol/L (136-145) Potassium Level 4.1 mmol/L (3.5-5.1) Chloride Level 102 mmol/L (98-107) Carbon Dioxide Level 33 mmol/L (21-32) Anion Gap 5 (6-14) Blood Urea Nitrogen 12 mg/dL (8-26) Creatinine 0.9 mg/dL (0.7-1.3) Estimated GFR (Cockcroft-Gault) 82.0 Glucose Level 178 mg/dL (70-99) Calcium Level 8.6 mg/dL (8.5-10.1) Test 06/21/18 11:43 Glucose (Fingerstick) 163 mg/dL (70-99) Medications Active Scripts Medications Dose Route/Sig Max Daily Dose Days Date Category Dose Instructions Digoxin 125 Mcg Tablet 125 Mcg PO DAILY 05/15/16 Rx Furosemide 40 Mg Tablet 40 Mg PO DAILY 05/15/16 Rx Zonisamide 100 Mg Capsule 400 Mg PO DAILY 05/11/16 Reported Percocet 5-325 Mg Tablet (Oxycodone/Acetaminophen) 1 Each Tablet 1 Tab PO PRN Q4HRS PRN 05/11/16 Reported Multivitamins (Multivitamin) 1 Each Tablet 1 Tab PO DAILY 05/11/16 Reported Levetiracetam 250 Mg Tablet 1,250 Mg PO BID 05/11/16 Reported Novolin N (Nph, Human Insulin Isophane) 100 Unit/1 Ml Vial Unknown Dose SQ 05/11/16 Reported Atorvastatin Calcium 80 Mg Tablet 1 Tab PO DAILY 05/11/16 Reported Acetaminophen 500 Mg Tablet 1 Tab PO PRN Q6HRS PRN 05/11/16 Reported Metoprolol Tartrate 50 Mg Tablet 50 Mg PO BID 02/24/16 Rx [Warfarin Sodium] 1 EACH Each 1 Each MC PRN DAILY PRN 02/24/16 Rx Lisinopril 20 Mg Tablet 20 Mg PO DAILY 02/24/16 Rx Duoneb 0.5-3(2.5) Mg/3 Ml (Albuterol/Ipratropium) 3 Ml Ampul.neb 3 Ml NEB Q4HRS W/A 30 02/24/16 Rx Hydralazine Hcl 10 Mg Tablet 10 Mg PO TID 02/24/16 Rx Albuterol Sulfate Hfa Inhaler (Albuterol Sulfate) 8.5 Gm Hfa.aer.ad 2 Puff IH PRN Q6HRS PRN 02/20/13 Reported Aspirin Ec (Aspirin) 325 Mg Tablet.dr 81 Mg PO DAILY 02/20/13 Reported Crestor (Rosuvastatin Calcium) 40 Mg Tablet 40 Mg PO DAILY 02/19/13 Reported Warfarin Sodium 5 Mg Tablet 6 Mg PO DAILY 02/19/13 Reported Warfarin Sodium 2.5 Mg Tablet 2.5 Mg PO 3X/WEEK 02/19/13 Reported monday,monday, Gabapentin (Gabapentin) 300 Mg Capsule 300 Mg PO DAILY 02/19/13 Reported Risperidone 1 Mg Tablet 1 Mg PO HS 02/19/13 Reported Novolog (Insulin Aspart) 100 Unit/1 Ml Vial 10 Unit SQ DAILYAC 02/19/13 Reported Oxycodone-Acetaminophen 10-325 (Oxycodone Hcl/Acetaminophen) 1 Each Tablet 1 Each PO PRN Q6HRS 02/19/13 Reported Potassium 99 Mg Tablet 20 Meq PO DAILY 02/19/13 Reported Prednisone (Prednisone) 10 Mg Tablet 10 Mg PO DAILY 02/19/13 Reported Metformin Hcl 500 Mg Tablet 1,000 Mg PO BIDBFRMEAL 02/19/[address] CHEST IMPRESSION: 1. Bilateral airspace disease with more focal areas of consolidation in the right upper lobe and superior segment left lower lobe, likely related to pneumonia. 2. Moderate size bilateral pleural effusions. 3. Mediastinal and right hilar lymphadenopathy, likely reactive. Follow-up imaging after treatment to ensure resolution. 4. Aneurysmal dilation of the ascending thoracic aorta, unchanged. Electronically signed by: John Blunt MD (06/20/2018 8:41 AM) [facility] Impression . IMPRESSION: 1. Acute hypoxemic respiratory failure. 2. Brsup-ug-veqdogo diastolic heart failure. 3. Atrial fibrillation with rapid ventricular response. 4. Coronary artery disease, status post coronary artery bypass grafting. 5. Leukocytosis, suspect reactive. 6. 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 7. Peripheral vascular disease. 8. Functional quadriplegia. 9. Accelerated hypertension. 10. Severe protein malnutrition. 11 h/o MRSA bacteremia with sepsis from 05/18. D/c Dapto till 07/02 -CRYSTAL done no vegetations 05/21; BC from 05/20 & onward were neg (PER ID) 12 NEGATIVE LEFT UPPER EXT VENOUS 13. CMP EF 35% 14. ABNORMAL CXR/ CT CHEST 06/20. Bilateral airspace disease with more focal areas of consolidation in the right upper lobe and superior segment left lower lobe, likely related to pneumonia./ Moderate size bilateral pleural effusions.due to low oncotic pressure Plan . ANTIBX PER ID repeat cxr in a week GI WORK UP PRN BIPAP U/S UPPER L EXT NEGATIVE DIURESE PLANS FOR SKILL PER PCP RAMESH SANTIAGO MD June 21, 2018 12:43
[2018-06-21 15:00] VITALS: BP 163/49
[2018-06-21] MEDS ORDERED: WARFARIN 4 MG TABLET. PO ONE (16:00)
[2018-06-21 19:15] VITALS: BP 155/41
[2018-06-21] MEDS ORDERED: INSULIN LISPRO 300 UNITS/3 ML INSULN.PEN. SQ ONE (22:00)
[2018-06-21] MEDS: risperiDONE 1 MG TABLET. PO SCH (22:02)
[2018-06-21] MEDS: ATORVASTATIN CALCIUM 40 MG TABLET. PO SCH (22:02)
[2018-06-21 23:18] VITALS: BP 169/80
--- NOTE | 2018-06-22 02:41 | NUR ---
Pt's blue lumen from PICC Line unable to flush/blood return. Dr. Cárdenas notified. Order received. Will continue to monitor.
[2018-06-22] MEDS ORDERED: ALTEPLASE 1MG SYRINGE. INT CAT ONE (03:00)
[2018-06-22 03:06] VITALS: BP 134/48
--- NOTE | 2018-06-22 05:00 | NUR ---
This nurse administered Alteplase to the blue lumen from PICC Line. Able to Flush/receive blood return. Will continue to monitor.
[2018-06-22 05:48] LABS: CALCIUM 8.7 mg/dL (8.5-10.1); CREATININE 0.9 mg/dL (0.7-1.3)
[2018-06-22 06:24] LABS: PROTHROMBIN TIME PATIENT 26.1 SEC (11.7-14.0)
[2018-06-22 07:00] VITALS: BP 155/61
[2018-06-22] MEDS: IPRATRPIUM/ALBUTEROL 0.5/2.5MG 3 ML NEBU. NEB SCH ×2 (07:26→11:02)
--- NOTE | 2018-06-22 08:23 | PDOC ---
PROGRESS NOTES Chief Complaint Chief Complaint Pneumonia with right perihilar infiltrate. Leukocytosis Chronic Crawley with pyuria MRSA bacteremia with sepsis from 05/18. D/c Dapto till 07/02 Acute on chronic CHF MRSA and Enterobacter ( R Augmentin/cefuroxime) infection PSA ( R quinolones & I imipenem) infection Bioprosthetic aortic valve A- fib Anticoagulation on warfarin Diabetes Type II Seizure disorder, on Keppra Noncompliance New anemia with possible GI bleed s/p blood transfusion History of Present Illness History of Present Illness Mr Neri is a 78-year-old male with a history of severe peripheral arterial disease, status post previous bilateral lower extremity stents and previous toe amputations. He was recently admitted last month for gangrene of right foot for which he underwent a right below-knee amputation. In addition, he had developed an infected ulcer over the left lateral malleolus for which he had I and D. Cultures grew MRSA and Enterobacter for which he completed a course of meropenem. His blood cultures from 05/18 grew MRSA. A transesophageal echocardiogram showed no evidence of vegetation. He was eventually discharged home on daptomycin until 07/02/2018 to complete 6 weeks. The patient says he was doing well when he felt sick and short of breath prompting ER visit. He was hypoxic requiring increased supplemental oxygen. He had elevated white blood cell count of 18,500 and a lactic acid of 1.1. Chest x-ray showed right perihilar infiltrate. He has since been admitted and dosed with vancomycin and Zosyn for pulmonary treatment and mild rhabdo. Patient seen and examined. I discussed the case at length with his and RN, AMAURI. Sitting up in bed this morning, breathing a bit better. At his baseline confusion per . Did not sleep well last night He denies dark stools or bloody stools or hemoptysis. Urine returned with 100K GNR - e coli sensitive. Wishes for SNF on d/c, needs daptomycin until 07/02 and ceftin until 06/22. CXR still with bilateral opacities. Plan: Antibiotics per ID, needs a bit more diuresis, D/C to SNF - is ready He needs to continue daptomycin, failed home health, needs placement at least until 07/02 to complete daptomycin course, has daptomycin sitting at home that will in 48 hours if not used per his . Vitals Vitals Vital Signs Date Time Temp Pulse Resp B/P (MAP) Pulse Ox O2 Delivery O2 Flow Rate FiO2 06/22/18 07:32 96 Nasal Cannula 2.0 06/22/18 07:00 98.0 72 22 155/61 (92) 98.0 Physical Exam Physical Exam GENERAL: Propped up in bed, alert, NAD HEENT: Pupils equally round and reactive. Normal conjunctivae. Oral oropharynx pink and moist. No thrush. NECK: Supple. LUNGS: Improved aeration HEART: S1 and S2 irregular. ABDOMEN: Obese, soft and nontender with bowel sounds present. GENITOURINARY: Indwelling Crawley out. EXTREMITIES: Left hand is swollen. No redness, warmth or limited range of motion. Left lower extremity 1+ edema. No cyanosis. Right BKA incision healing well, stables still in place. no redness or drainage SKIN: Warm without generalized rash. Multiple tattoos. A small superficial u lcer, left lateral malleolus area without signs of infection - healing NEUROLOGIC: Alert and responding appropriately. Poor historian. RUE-PICC (POA) without signs of any complications. 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 taken down in the distant past) Extremities: Other (he is bilateral amputee with wound dressing he also has a stump protector on the right and a knee brace on the right) Labs LABS Laboratory Tests Test 06/21/18 11:43 06/21/18 16:33 06/21/18 21:11 06/22/18 05:10 Glucose (Fingerstick) 163 mg/dL (70-99) 152 mg/dL (70-99) 230 mg/dL (70-99) Sodium Level 139 mmol/L (136-145) Potassium Level 4.0 mmol/L (3.5-5.1) Chloride Level 101 mmol/L (98-107) Carbon Dioxide Level 32 mmol/L (21-32) Anion Gap 6 (6-14) Blood Urea Nitrogen 12 mg/dL (8-26) Creatinine 0.9 mg/dL (0.7-1.3) Estimated GFR (Cockcroft-Gault) 82.0 Glucose Level 184 mg/dL (70-99) Calcium Level 8.7 mg/dL (8.5-10.1) Test 06/22/18 06:00 Prothrombin Time 26.1 SEC (11.7-14.0) Prothromb Time International Ratio 2.4 (0.8-1.1) Assessment and Plan Assessmemt and Plan Problems Medical Problems: (1) Pneumonia Status: Acute (2) Sepsis Status: Acute (3) Tachycardia Status: Acute Comment Review of Relevant I have reviewed the following items navi (where applicable) has been applied. Labs Laboratory Tests Test 06/20/18 11:52 06/20/18 15:33 06/20/18 16:48 06/20/18 21:18 Glucose (Fingerstick) 192 mg/dL (70-99) 145 mg/dL (70-99) 156 mg/dL (70-99) 209 mg/dL (70-99) Test 06/20/18 22:33 06/21/18 05:00 06/21/18 07:49 06/21/18 11:43 Glucose (Fingerstick) 193 mg/dL (70-99) 163 mg/dL (70-99) 163 mg/dL (70-99) Prothrombin Time 25.2 SEC (11.7-14.0) Prothromb Time International Ratio 2.3 (0.8-1.1) Sodium Level 140 mmol/L (136-145) Potassium Level 4.1 mmol/L (3.5-5.1) Chloride Level 102 mmol/L (98-107) Carbon Dioxide Level 33 mmol/L (21-32) Anion Gap 5 (6-14) Blood Urea Nitrogen 12 mg/dL (8-26) Creatinine 0.9 mg/dL (0.7-1.3) Estimated GFR (Cockcroft-Gault) 82.0 Glucose Level 178 mg/dL (70-99) Calcium Level 8.6 mg/dL (8.5-10.1) Test 06/21/18 16:33 06/21/18 21:11 06/22/18 05:10 06/22/18 06:00 Glucose (Fingerstick) 152 mg/dL (70-99) 230 mg/dL (70-99) Sodium Level 139 mmol/L (136-145) Potassium Level 4.0 mmol/L (3.5-5.1) Chloride Level 101 mmol/L (98-107) Carbon Dioxide Level 32 mmol/L (21-32) Anion Gap 6 (6-14) Blood Urea Nitrogen 12 mg/dL (8-26) Creatinine 0.9 mg/dL (0.7-1.3) Estimated GFR (Cockcroft-Gault) 82.0 Glucose Level 184 mg/dL (70-99) Calcium Level 8.7 mg/dL (8.5-10.1) Prothrombin Time 26.1 SEC (11.7-14.0) Prothromb Time International Ratio 2.4 (0.8-1.1) Laboratory Tests Test 06/21/18 11:43 06/21/18 16:33 06/21/18 21:11 06/22/18 05:10 Glucose (Fingerstick) 163 mg/dL (70-99) 152 mg/dL (70-99) 230 mg/dL (70-99) Sodium Level 139 mmol/L (136-145) Potassium Level 4.0 mmol/L (3.5-5.1) Chloride Level 101 mmol/L (98-107) Carbon Dioxide Level 32 mmol/L (21-32) Anion Gap 6 (6-14) Blood Urea Nitrogen 12 mg/dL (8-26) Creatinine 0.9 mg/dL (0.7-1.3) Estimated GFR (Cockcroft-Gault) 82.0 Glucose Level 184 mg/dL (70-99) Calcium Level 8.7 mg/dL (8.5-10.1) Test 06/22/18 06:00 Prothrombin Time 26.1 SEC (11.7-14.0) Prothromb Time International Ratio 2.4 (0.8-1.1) Microbiology 06/15/18 Blood Culture - Final, Complete NO GROWTH AFTER 5 DAYS 06/15/18 Urine Culture - Final, Complete 06/15/18 Urine Culture Result 1 (FELICITA) - Final, Complete 06/15/18 Antimicrobic Susceptibility - Final, Complete Medications Current Medications Albuterol/ Ipratropium (Duoneb) 3 ml 1X ONCE NEB Last administered on 06/15/18at 08:24; Start 06/15/18 at 08:15; Stop 06/15/18 at 08:16; Status DC Methylprednisolone Sodium Succinate (SOLU-Medrol 125MG VIAL) 125 mg 1X ONCE IV Last administered on 06/15/18at 08:46; Start 06/15/18 at 09:00; Stop 06/15/18 at 09:01; Status DC Vancomycin HCl (Vanco Per Pharmacy) 1 each PRN DAILY PRN MC SEE COMMENTS Last administered on 06/18/18at 09:38; Start 06/15/18 at 08:45; Stop 06/19/18 at 09:42; Status DC Piperacillin Sod/ Tazobactam Sod (Zosyn Per Pharmacy) 1 each PRN DAILY PRN MC SEE COMMENTS; Start 06/15/18 at 08:45; Stop 06/18/18 at 13:55; Status DC Sodium Chloride 500 ml @ 500 mls/hr 1X ONCE IV Last administered on 06/15/18at 08:47; Start 06/15/18 at 08:45; Stop 06/15/18 at 09:44; Status DC Vancomycin HCl 2 gm/Sodium Chloride 500 ml @ 250 mls/hr 1X ONCE IV Last administered on 06/15/18at 09:22; Start 06/15/18 at 09:15; Stop 06/15/18 at 11:14; Status DC Piperacillin Sod/ Tazobactam Sod 4.5 gm/Sodium Chloride 100 ml @ 200 mls/hr 1X ONCE IV Last administered on 06/15/18at 08:47; Start 06/15/18 at 09:15; Stop 06/15/18 at 09:44; Status DC Ondansetron HCl (Zofran) 4 mg PRN Q8HRS PRN IV NAUSEA/VOMITING; Start 06/15/18 at 08:45; Stop 06/16/18 at 08:44; Status DC Morphine Sulfate (Morphine Sulfate) 2 mg PRN Q2HR PRN IV PAIN; Start 06/15/18 at 08:45; Stop 06/16/18 at 08:44; Status DC Sodium Chloride 1,000 ml @ 100 mls/hr Q10H IV Last administered on 06/15/18at 09:17; Start 06/15/18 at 08:35; Stop 06/15/18 at 12:34; Status DC Albuterol/ Ipratropium (Duoneb) 3 ml RTQID NEB Last administered on 06/22/18 07:26; Start 06/15/18 at 08:45 Acetaminophen (Tylenol) 500 mg PRN Q6HRS PRN PO MILD PAIN / TEMP; Start 06/15/18 at 08:45; Stop 06/15/18 at 14:08; Status DC Ondansetron HCl (Zofran) 4 mg PRN Q6HRS PRN IV NAUSEA/VOMITING; Start 06/15/18 at 08:45 Aspirin (Ecotrin) 81 mg DAILY PO Last administered on 06/15/18 09:00; Start 06/15/18 at 09:00; Stop 06/16/18 at 08:34; Status DC Digoxin (Lanoxin) 125 mcg DAILY PO Last administered on 06/21/18 08:28; Start 06/15/18 at 09:00 Furosemide (Lasix) 40 mg DAILY PO Last administered on 06/21/18 08:28; Start 06/15/18 at 09:00 Gabapentin (Neurontin) 300 mg DAILY PO Last administered on 06/21/18 08:28; Start 06/15/18 at 09:00 Lisinopril (Prinivil) 20 mg DAILY PO Last administered on 06/21/18 08:28; Start 06/15/18 at 09:00 Metoprolol Tartrate (Lopressor) 50 mg BID PO Last administered on 06/21/18 22:04; Start 06/15/18 at 09:00 Acetaminophen (Tylenol) 500 mg PRN Q6HRS PRN PO MILD PAIN / TEMP; Start 06/15/18 at 09:30 Atorvastatin Calcium (Lipitor) 80 mg QHS PO Last administered on 06/21/18 22:02; Start 06/15/18 at 21:00 Hydralazine HCl (Apresoline) 10 mg TID PO Last administered on 06/21/18 22:03; Start 06/15/18 at 10:00 Non-Formulary Medication (Insulin Aspart (Novolog)) 10 unit DAILYAC SQ ; Start 06/16/18 at 07:30; Status UNV Levetiracetam (Keppra) 1,250 mg BID PO Last administered on 06/21/18 22:02; Start 06/15/18 at 09:30 Multivitamins (Thera M Plus) 1 tab DAILY PO Last administered on 06/21/18 08: 29; Start 06/15/18 at 09:30 Risperidone (RisperDAL) 1 mg QHS PO Last administered on 06/21/18at 22:02; Start 06/15/18 at 09:45 Non-Formulary Medication (Rosuvastatin Calcium (Crestor)) 40 mg DAILY PO ; Start 06/15/18 at 09:00; Status UNV Zonisamide (Zonegran) 400 mg DAILY PO Last administered on 06/21/18at 08:27; Start 06/15/18 at 09:30 Insulin Human Lispro (HumaLOG) 0-9 UNITS TIDWMEALS SQ Last administered on 06/21/18at 17:00; Start 06/15/18 at 09:20 Dextrose (Dextrose 50%-Water Syringe) 12.5 gm PRN Q15MIN PRN IV SEE COMMENTS; Start 06/15/18 at 08:45 Warfarin Sodium (Coumadin Per Pharmacy) 1 each PRN DAILY PRN MC SEE COMMENTS La st administered on 06/21/18at 11:04; Start 06/15/18 at 08:45 Warfarin Sodium (Coumadin - No Dose Today) 1 each 1X WARF ONCE MC ; Start 06/15/18 at 16:00; Stop 06/15/18 at 16:01; Status DC Piperacillin Sod/ Tazobactam Sod 4.5 gm/Sodium Chloride 100 ml @ 200 mls/hr Q6HRS IV Last administered on 06/18/18at 12:51; Start 06/15/18 at 17:00; Stop 06/18/18 at 13:55; Status DC Vancomycin HCl 1.5 gm/Sodium Chloride 500 ml @ 250 mls/hr Q18H IV Last administered on 06/16/18at 21:49; Start 06/16/18 at 03:00; Stop 06/17/18 at 16:03; Status DC Vancomycin HCl (Vancomycin Trough Level) 1 each 1X ONCE MC Last administered on 06/17/18at 14:30; Start 06/17/18 at 14:30; Stop 06/17/18 at 14:31; Status DC Aspirin (Ecotrin) 81 mg DAILY PO Last administered on 06/21/18at 08:28; Start 06/16/18 at 09:00 Phytonadione (Mephyton Oral Soln) 5 mg 1X ONCE PO Last administered on 06/16/18at 11:02; Start 06/16/18 at 11:00; Stop 06/16/18 at 11:01; Status DC Warfarin Sodium (Coumadin - No Dose Today) 1 each 1X WARF ONCE MC ; Start 06/06 02/24 at 16:00; Stop 06/16/18 at 16:01; Status DC Oxycodone/ Acetaminophen (Percocet 5/325) 1 tab PRN Q4HRS PRN PO SEVERE PAIN 7- 10 Last administered on 06/20/18at 21:17; Start 06/17/18 at 03:15 Warfarin Sodium (Coumadin) 3 mg 1X WARF ONCE PO Last administered on 06/17/18at 17:29; Start 06/17/18 at 16:00; Stop 06/17/18 at 16:01; Status DC Vancomycin HCl 1.5 gm/Sodium Chloride 500 ml @ 250 mls/hr Q24H IV Last administered on 06/18/18at 22:56; Start 06/17/18 at 21:00; Stop 06/19/18 at 09:42; Status DC Vancomycin HCl (Vancomycin Trough Level) 1 each 1X ONCE MC ; Start 06/19/18 at 20:30; Stop 06/19/18 at 20:30; Status DC Albuterol Sulfate (Ventolin Neb Soln) 2.5 mg RTQID PRN IH WHEEZING Last administered on 06/20/18at 18:27; Start 06/17/18 at 17:30 Potassium Chloride (Klor-Con) 40 meq DAILY PO Last administered on 06/21/18at 08:27; Start 06/18/18 at 09:00 Warfarin Sodium (Coumadin) 5 mg 1X WARF ONCE PO Last administered on 06/18/18at 22:21; Start 06/18/18 at 16:00; Stop 06/18/18 at 16:01; Status DC Lactobacillus Rhamnosus (Culturelle) 1 cap BID PO ; Start 06/18/18 at 12:00; Status Cancel Piperacillin Sod/ Tazobactam Sod 3.375 gm/Sodium Chloride 50 ml @ 100 mls/hr Q6HRS IV Last administered on 06/19/18at 06:43; Start 06/18/18 at 18:00; Stop 06/19/18 at 09:42; Status DC Daptomycin 600 mg/ Sodium Chloride 50 ml @ 100 mls/hr Q24H IV Last administered on 06/21/18at 10:46; Start 06/19/18 at 10:30 Cephalexin HCl (Keflex) 500 mg QID PO Last administered on 06/21/18at 22:03; Start 06/19/18 at 13:00 Warfarin Sodium (Coumadin) 5 mg 1X WARF ONCE PO Last administered on 06/19/18at 16:00; Start 06/19/18 at 16:00; Stop 06/19/18 at 16:01; Status DC Warfarin Sodium (Coumadin) 4 mg 1X WARF ONCE PO Last administered on 06/20/18at 16:00; Start 06/20/18 at 16:00; Stop 06/20/18 at 16:01; Status DC Warfarin Sodium (Coumadin) 4 mg 1X WARF ONCE PO Last administered on 06/21/18at 15:52; Start 06/21/18 at 16:00; Stop 06/21/18 at 16:01; Status DC Insulin Human Lispro (HumaLOG) 3 units 1X ONCE SQ Last administered on 06/21/18at 22:18; Start 06/21/18 at 22:00; Stop 06/21/18 at 22:01; Status DC Alteplase, Recombinant (Cathflo For Central Catheter Clearance) 1 mg 1X ONCE INT CAT Last administered on 06/22/18at 03:09; Start 06/22/18 at 03:00; Stop 06/22/18 at 03:01; Status DC Active Scripts Active Digoxin 125 Mcg Tablet 125 Mcg PO DAILY Furosemide 40 Mg Tablet 40 Mg PO DAILY Metoprolol Tartrate 50 Mg Tablet 50 Mg PO BID [Warfarin Sodium] 1 EACH Each 1 Each MC PRN DAILY PRN Lisinopril 20 Mg Tablet 20 Mg PO DAILY Duoneb 0.5-3(2.5) Mg/3 Ml (Albuterol/Ipratropium) 3 Ml Ampul.neb 3 Ml NEB Q4HRS W/A 30 Days Hydralazine Hcl 10 Mg Tablet 10 Mg PO TID Reported Zonisamide 100 Mg Capsule 400 Mg PO DAILY Percocet 5-325 Mg Tablet (Oxycodone/Acetaminophen) 1 Each Tablet 1 Tab PO PRN Q4HRS PRN Multivitamins (Multivitamin) 1 Each Tablet 1 Tab PO DAILY Levetiracetam 250 Mg Tablet 1,250 Mg PO BID Novolin N (Nph, Human Insulin Isophane) 100 Unit/1 Ml Vial Unknown Dose SQ Atorvastatin Calcium 80 Mg Tablet 1 Tab PO DAILY Acetaminophen 500 Mg Tablet 1 Tab PO PRN Q6HRS PRN Albuterol Sulfate Hfa Inhaler (Albuterol Sulfate) 8.5 Gm Hfa.aer.ad 2 Puff IH PRN Q6HRS PRN Aspirin Ec (Aspirin) 325 Mg Tablet.dr 81 Mg PO DAILY Crestor (Rosuvastatin Calcium) 40 Mg Tablet 40 Mg PO DAILY Warfarin Sodium 5 Mg Tablet 6 Mg PO DAILY Warfarin Sodium 2.5 Mg Tablet 2.5 Mg PO 3X/WEEK monday,monday, Gabapentin (Gabapentin) 300 Mg Capsule 300 Mg PO DAILY Risperidone 1 Mg Tablet 1 Mg PO HS Novolog (Insulin Aspart) 100 Unit/1 Ml Vial 10 Unit SQ DAILYAC Oxycodone-Acetaminophen 10-325 (Oxycodone Hcl/Acetaminophen) 1 Each Tablet 1 Each PO PRN Q6HRS Potassium 99 Mg Tablet 20 Meq PO DAILY Prednisone (Prednisone) 10 Mg Tablet 10 Mg PO DAILY Metformin Hcl 500 Mg Tablet 1,000 Mg PO BIDBFRMEAL Vitals/I & O Vital Sign - Last 24 Hours 06/21/18 06/21/18 06/21/18 06/21/18 08:28 08:28 08:29 08:29 Pulse 69 69 69 69 B/P (MAP) 136/48 136/48 136/48 136/48 06/21/18 06/21/18 06/21/18 06/21/18 11:00 11:34 14:03 15:00 Temp 98.0 98.0 98.0 98.0 Pulse 68 68 70 Resp 18 18 B/P (MAP) 155/62 (93) 155/62 163/49 (87) Pulse Ox 96 94 O2 Delivery Nasal Cannula Nasal Cannula Nasal Cannula O2 Flow Rate 3.0 2.0 3.0 06/21/18 06/21/18 06/21/18 06/21/18 15:26 19:15 20:00 20:45 Temp 97.8 97.8 Pulse 72 Resp 18 B/P (MAP) 155/41 (79) Pulse Ox 95 O2 Delivery Nasal Cannula Room Air Nasal Cannula Nasal Cannula O2 Flow Rate 2.0 2.0 2.0 06/21/18 06/21/18 06/21/18 06/22/18 22:03 22:04 23:18 03:06 Temp 98.1 98.1 98.1 98.1 Pulse 72 72 88 70 Resp 20 20 B/P (MAP) 155/41 155/41 169/80 (109) 134/48 (76) Pulse Ox 98 98 O2 Delivery Nasal Cannula Nasal Cannula O2 Flow Rate 2.0 2.0 06/22/18 06/22/18 06/22/18 07:00 07:25 07:32 Temp 98.0 98.0 Pulse 72 Resp 22 B/P (MAP) 155/61 (92) Pulse Ox 97 96 O2 Delivery Nasal Cannula Nasal Cannula Nasal Cannula O2 Flow Rate 2.0 3.0 2.0 Intake and Output 06/21/18 06/21/18 06/22/18 15:00 23:00 07:00 Intake Total 300 ml 200 ml Balance 300 ml 200 ml NEHAL NELSON MD June 22, 2018 08:23
[2018-06-22] MEDS: GABAPENTIN 300 MG CAPSULE. PO SCH (08:28)
[2018-06-22] MEDS: ASPIRIN ENTERIC COATED 81 MG TABLET.DR. PO SCH (08:29)
[2018-06-22] MEDS: CEPHALEXIN 250 MG CAPSULE. PO SCH ×2 (08:29→11:53)
[2018-06-22] MEDS: hydrALAZINE 10 MG TABLET PO SCH ×2 (08:29→11:54)
[2018-06-22] MEDS: FUROSEMIDE 40 MG TABLET. PO SCH (08:29)
[2018-06-22] MEDS: POTASSIUM CHLORIDE 20 MEQ TABLET.ER. PO SCH (08:29)
[2018-06-22] MEDS: MULTIVITAMIN with MINERAL TABLET. PO SCH (08:29)
[2018-06-22] MEDS: ZONISAMIDE 100 MG CAPSULE. PO SCH (08:29)
[2018-06-22] MEDS: DIGOXIN 125 MCG TABLET. PO SCH (08:29)
[2018-06-22] MEDS: LISINOPRIL 20 MG TABLET PO SCH (08:30)
[2018-06-22] MEDS: levETIRAcetam 250 MG TABLET PO SCH (08:30)
[2018-06-22] MEDS: DAPTOmycin (GENERIC) IVPB 600 MG in IV NORMAL SALINE 50ML 50 ML IV SCH (08:31)
[2018-06-22] MEDS: METOPROLOL TART IMMED RELEASE 50 MG TABLET. PO SCH (08:36)
[2018-06-22] MEDS: INSULIN LISPRO 300 UNITS/3 ML INSULN.PEN. SQ SCH ×2 (08:36→11:53)
[2018-06-22] MEDS ORDERED: CEPH250C PO (10:32)
[2018-06-22] MEDS ORDERED: OXYC1TAB15 PO (10:32)
[2018-06-22] MEDS ORDERED: DAPT350V IV (10:32)
--- NOTE | 2018-06-22 10:32 | NUR ---
AMAURI following for discharge planning. Discussed with RN and Dr. Herrera. Pt can discharge to [facility] today. Pt's to bring the Daptomycin they have at home, to [facility]. [facility] setting up stretcher transportation and will advise AMAURI. AMAURI awaiting discharge paperwork to fax.
--- NOTE | 2018-06-22 10:35 | SNU/HH DC ---
DISCHARGE ORDERS DISCHARGE INFORMATION: DISCHARGE DATE: June 22, 2018 FINAL DIAGNOSIS Problems Medical Problems: (1) Pneumonia Status: Acute (2) Sepsis Status: Acute (3) Tachycardia Status: Acute CONDITION ON DISCHARGE: Stable CODE STATUS: Code Status: Full SENIOR CARE: SNF STAY <30 DAYS: Yes POST DISCHARGE ORDERS: ACTIVITY ORDERS: Activity as tolerated, Bedrest today WEIGHT BEARING STATUS: As tolerated BATHING ORDERS: Shower-keep dressing dry DIET AFTER DISCHARGE: Cardiac WOUND/INCISION CARE: Change dressing, Routine catheter care CHECKS AFTER DISCHARGE: CHECKS AFTER DISCHARGE: Check blood press - daily, Check blood sugar, ac/hs, Weigh Yourself Daily FOLLOW-UP: PHYSICIAN FOLLOW-UP: F/u ID office 2 weeks [phone] ADDITIONAL FOLLOW-UP: Vascular surgery - Dr. Urias LAB ORDERS FOR FOLLOW-UP: Weekly labs -CBC/CPK/CMP fax to [phone]. ANTICOAGULATION F/U NEEDED: Daily INR goal 2-3 TREATMENT/EQUIPMENT ORDERS: INFUSION EQUIPMENT NEEDED: PICC Line RESPIRATORY EQUIPMENT NEEDED: Oxygen Physical Therapy For: Evalulation/Treatment Occupational Therapy For: Evaluation/Treatment Speech Language Pathology For: Evaluation/Treatment DISCHARGE MEDICATIONS: Home Meds Active Scripts Daptomycin (Daptomycin) 350 Mg Vial, 350 MG IV DAILY for MRSA infection stump for 10 Days, #10 EACH Prov:NEHAL NELSON MD 06/22/18 Cephalexin (CEPHALEXIN) 250 Mg Capsule, 500 MG PO QID for Pneumonia for 3 Days, #24 CAP Prov:NEHAL NELSON MD 06/22/18 Oxycodone/Apap 5-325 (PERCOCET 5-325 MG TABLET ) 1 Each Tablet, 1 TAB PO PRN Q4HRS PRN for PAIN for 6 Days, #18 TAB Prov:NEHAL NELSON MD 06/22/18 Digoxin (DIGOXIN) 125 Mcg Tablet, 125 MCG PO DAILY, #30 TAB-CAP Prov:MAUREEN BRIDGES MD 05/15/16 Furosemide (FUROSEMIDE) 40 Mg Tablet, 40 MG PO DAILY, #30 TAB-CAP Prov:MAUREEN BRIDGES MD 05/15/16 Metoprolol Tartrate (METOPROLOL TARTRATE) 50 Mg Tablet, 50 MG PO BID, #60 TAB Prov:ISAAC SPRINGER MD 02/24/16 [Warfarin Sodium] 1 EACH EACH No Conflict Check, 1 EACH PRN DAILY PRN for SEE COMMENTS Prov:ISAAC SPRINGER MD 02/24/16 Lisinopril (LISINOPRIL) 20 Mg Tablet, 20 MG PO DAILY, #30 TAB Prov:ISAAC SPRINGER MD 02/24/16 Ipratropium/Albuterol Sulfate (DUONEB 0.5-3(2.5) MG/3 ML) 3 Ml Ampul.neb, 3 ML NEB Q4HRS W/A for 30 Days, ML Prov:ISAAC SPRINGER MD 02/24/16 Hydralazine Hcl (HYDRALAZINE HCL) 10 Mg Tablet, 10 MG PO TID, #90 TAB Prov:ISAAC SPRINGER MD 02/24/16 Reported Medications Zonisamide (ZONISAMIDE) 100 Mg Capsule, 400 MG PO DAILY 05/11/16 Multivitamin (MULTIVITAMINS) 1 Each Tablet, 1 TAB PO DAILY, #90 TAB 3 Refills 05/11/16 Levetiracetam (LEVETIRACETAM) 250 Mg Tablet, 1250 MG PO BID, TAB 05/11/16 Atorvastatin Calcium (ATORVASTATIN CALCIUM) 80 Mg Tablet, 1 TAB PO DAILY, #30 TAB 5 Refills 05/11/16 Acetaminophen (ACETAMINOPHEN) 500 Mg Tablet, 1 TAB PO PRN Q6HRS PRN for MILD PAIN / TEMP, #60 TAB 1 Refill 05/11/16 Albuterol Sulfate (ALBUTEROL SULFATE HFA INHALER) 8.5 Gm Hfa.aer.ad, 2 PUFF IH PRN Q6HRS PRN for SHORTNESS OF BREATH 02/20/13 Aspirin (ASPIRIN EC) 325 Mg Tablet.dr, 81 MG PO DAILY 02/20/13 Warfarin Sodium (WARFARIN SODIUM) 5 Mg Tablet, 6 MG PO DAILY 02/19/13 Warfarin Sodium (WARFARIN SODIUM) 2.5 Mg Tablet, 2.5 MG PO 3X/WEEK monday,monday,02/19/13 Gabapentin (GABAPENTIN ) 300 Mg Capsule, 300 MG PO DAILY 02/19/13 Risperidone (RISPERIDONE) 1 Mg Tablet, 1 MG PO HS 02/19/13 Insulin Aspart (NOVOLOG) 100 Unit/1 Ml Vial, 10 UNIT SQ DAILYAC, VIAL 02/19/13 Potassium (POTASSIUM) 99 Mg Tablet, 20 MEQ PO DAILY 02/19/13 Discontinued Reported Medications Nph, Human Insulin Isophane (NOVOLIN N) 100 Unit/1 Ml Vial, SQ, VIAL 05/11/16 Rosuvastatin Calcium (CRESTOR) 40 Mg Tablet, 40 MG PO DAILY 02/19/13 Oxycodone Hcl/Acetaminophen (OXYCODONE-ACETAMINOPHEN 10-325) 1 Each Tablet, 1 EACH PO PRN Q6HRS 02/19/13 Prednisone (PREDNISONE ) 10 Mg Tablet, 10 MG PO DAILY 02/19/13 Metformin Hcl (METFORMIN HCL) 500 Mg Tablet, 1000 MG PO BIDBFRMEAL 02/19/13 NEHAL NELSON MD June 22, 2018 10:35
--- NOTE | 2018-06-22 10:38 | PDOC3 ---
Discharge Summary Visit Information Date of Admission: June 15, 2018 Date of Discharge: June 22, 2018 Admitting Diagnosis: Pneumonia, sepsis Final Diagnosis Problems Medical Problems: (1) Pneumonia Status: Acute (2) Sepsis Status: Acute (3) Tachycardia Status: Acute Brief Hospital Course Allergies Allergies Coded Allergies Type Severity Reaction Last Updated Verified fentanyl Allergy Intermediate 06/17/18 Yes I S O L A T I O N *CONTACT* Allergy Unknown 05/23/18 Yes Vital Signs Vital Signs Date Time Temp Pulse Resp B/P (MAP) Pulse Ox O2 Delivery O2 Flow Rate FiO2 06/22/18 08:36 72 155/61 06/22/18 07:32 96 Nasal Cannula 2.0 06/22/18 07:00 98.0 22 98.0 Lab Results Laboratory Tests Test 06/20/18 11:52 06/20/18 15:33 06/20/18 16:48 06/20/18 21:18 Glucose (Fingerstick) 192 mg/dL (70-99) 145 mg/dL (70-99) 156 mg/dL (70-99) 209 mg/dL (70-99) Test 06/20/18 22:33 06/21/18 05:00 06/21/18 07:49 06/21/18 11:43 Glucose (Fingerstick) 193 mg/dL (70-99) 163 mg/dL (70-99) 163 mg/dL (70-99) Prothrombin Time 25.2 SEC (11.7-14.0) Prothromb Time International Ratio 2.3 (0.8-1.1) Sodium Level 140 mmol/L (136-145) Potassium Level 4.1 mmol/L (3.5-5.1) Chloride Level 102 mmol/L (98-107) Carbon Dioxide Level 33 mmol/L (21-32) Anion Gap 5 (6-14) Blood Urea Nitrogen 12 mg/dL (8-26) Creatinine 0.9 mg/dL (0.7-1.3) Estimated GFR (Cockcroft-Gault) 82.0 Glucose Level 178 mg/dL (70-99) Calcium Level 8.6 mg/dL (8.5-10.1) Test 06/21/18 16:33 06/21/18 21:11 06/22/18 05:10 06/22/18 06:00 Glucose (Fingerstick) 152 mg/dL (70-99) 230 mg/dL (70-99) Sodium Level 139 mmol/L (136-145) Potassium Level 4.0 mmol/L (3.5-5.1) Chloride Level 101 mmol/L (98-107) Carbon Dioxide Level 32 mmol/L (21-32) Anion Gap 6 (6-14) Blood Urea Nitrogen 12 mg/dL (8-26) Creatinine 0.9 mg/dL (0.7-1.3) Estimated GFR (Cockcroft-Gault) 82.0 Glucose Level 184 mg/dL (70-99) Calcium Level 8.7 mg/dL (8.5-10.1) Prothrombin Time 26.1 SEC (11.7-14.0) Prothromb Time International Ratio 2.4 (0.8-1.1) Test 06/22/18 07:18 Glucose (Fingerstick) 159 mg/dL (70-99) Laboratory Tests Test 06/21/18 11:43 06/21/18 16:33 06/21/18 21:11 06/22/18 05:10 Glucose (Fingerstick) 163 mg/dL (70-99) 152 mg/dL (70-99) 230 mg/dL (70-99) Sodium Level 139 mmol/L (136-145) Potassium Level 4.0 mmol/L (3.5-5.1) Chloride Level 101 mmol/L (98-107) Carbon Dioxide Level 32 mmol/L (21-32) Anion Gap 6 (6-14) Blood Urea Nitrogen 12 mg/dL (8-26) Creatinine 0.9 mg/dL (0.7-1.3) Estimated GFR (Cockcroft-Gault) 82.0 Glucose Level 184 mg/dL (70-99) Calcium Level 8.7 mg/dL (8.5-10.1) Test 06/22/18 06:00 06/22/18 07:18 Prothrombin Time 26.1 SEC (11.7-14.0) Prothromb Time International Ratio 2.4 (0.8-1.1) Glucose (Fingerstick) 159 mg/dL (70-99) Brief Hospital Course Mr Neri is a 78-year-old male with a history of severe peripheral arterial disease, status post previous bilateral lower extremity stents and previous toe amputations. He was recently admitted last month for gangrene of right foot for which he underwent a right below-knee amputation. In addition, he had developed an infected ulcer over the left lateral malleolus for which he had I and D. Cultures grew MRSA and Enterobacter for which he completed a course of meropenem. His blood cultures from 05/18 grew MRSA. A transesophageal echocardiogram showed no evidence of vegetation. He was eventually discharged home on daptomycin until 07/02/2018 to complete 6 weeks. The patient says he was doing well when he felt sick and short of breath prompting ER visit. He was hypoxic requiring increased supplemental oxygen. He had elevated white blood cell count of 18,500 and a lactic acid of 1.1. Chest x-ray showed right perihilar infiltrate. He has since been admitted and dosed with vancomycin and Zosyn for pulmonary treatment and mild rhabdo. Seen by Pulm, ELLA Patient seen and examined. I discussed the case at length with his and RNAMAURI. Sitting up in bed this morning, breathing a bit better. At his baseline confusion per . Did not sleep well last night He denies dark stools or bloody stools or hemoptysis. Urine returned with 100K GNR - e coli sensitive. Wishes for SNF on d/c, needs daptomycin until 07/02 and ceftin until 06/24. CXR still with bilateral opacities. Pneumonia with right perihilar infiltrate. Leukocytosis Chronic [place] with pyuria MRSA bacteremia with sepsis from 05/18. D/c Dapto till 07/02 Acute on chronic CHF MRSA and Enterobacter ( R Augmentin/cefuroxime) infection PSA ( R quinolones & I imipenem) infection Bioprosthetic aortic valve A- fib Anticoagulation on warfarin Diabetes Type II Seizure disorder, on Keppra Noncompliance New anemia with possible GI bleed s/p blood transfusion Plan: Antibiotics per ID, needs a bit more diuresis, D/C to SNF - is ready He needs to continue daptomycin, failed home health, needs placement at least until 07/02 to complete daptomycin course, has daptomycin sitting at home that will in 48 hours if not used per his . Greater than 30 minutes spent on discharge. Discharge Information Condition at Discharge: Improved Follow Up: Weeks (2) Disposition/Orders: D/C to Another Facility ([place]) Scheduled Aspirin (Aspirin Ec) 325 Mg Tablet.dr, 81 MG PO DAILY, (Reported) Entered as Reported by: Briana Del Real on 02/20/13 0414 Last Action: Continued on 06/15/18840 by ARABELLA MARTINEZ Atorvastatin Calcium (Atorvastatin Calcium) 80 Mg Tablet, 1 TAB PO DAILY, #30 Ref 5 (Reported) Entered as Reported by: NATALIO ARDON on 05/11/16 0103 Last Action: Converted on 06/15/18840 by ARABELLA MARTINEZ Cephalexin (Cephalexin) 250 Mg Capsule, 500 MG PO QID for Pneumonia for 3 Days, #24 Prescribed by: NEHAL NELSON MD on 06/22/18 1032 Daptomycin (Daptomycin) 350 Mg Vial, 350 MG IV DAILY for MRSA infection stump for 10 Days, #10 Prescribed by: NEHAL NELSON MD on 06/22/18 1032 Digoxin (Digoxin) 125 Mcg Tablet, 125 MCG PO DAILY, #30 Prescribed by: MAUREEN BRIDGES MD on 05/15/16 1009 Last Action: Continued on 06/15/18840 by ARABELLA MARTINEZ Furosemide (Furosemide) 40 Mg Tablet, 40 MG PO DAILY, #30 Prescribed by: MAUREEN BRIDGES MD on 05/15/16 1007 Last Action: Continued on 06/15/18840 by ARABELLA MARTINEZ Gabapentin (Gabapentin ) 300 Mg Capsule, 300 MG PO DAILY, (Reported) Entered as Reported by: STEVEN WASHBURN on 02/19/132017 Last Action: Continued on 06/15/18840 by ARABELLA MARTINEZ Hydralazine Hcl (Hydralazine Hcl) 10 Mg Tablet, 10 MG PO TID, #90 Prescribed by: ISAAC SPRINGER MD on 02/24/16 1434 Last Action: Converted on 06/15/18840 by ARABELLA MARTINEZ Insulin Aspart (Novolog) 100 Unit/1 Ml Vial, 10 UNIT SQ DAILYAC, (Reported) Entered as Reported by: STEVEN WASHBURN on 02/19/132017 Last Action: Converted on 06/15/18840 by ARABELLA MARTINEZ Ipratropium/Albuterol Sulfate (Duoneb 0.5-3(2.5) Mg/3 Ml) 3 Ml Ampul.neb, 3 ML NEB Q4HRS W/A for 30 Days Prescribed by: ISAAC SPRINGER MD on 02/24/161433 Last Action: Reviewed on 06/15/18840 by ARABELLA MARTINEZ Levetiracetam (Levetiracetam) 250 Mg Tablet, 1,250 MG PO BID, (Reported) Entered as Reported by: NATALIO ARDON on 05/11/16112 Last Action: Converted on 06/15/18840 by ARABELLA MARTINEZ Lisinopril (Lisinopril) 20 Mg Tablet, 20 MG PO DAILY, #30 Prescribed by: ISAAC SPRINGER MD on 02/24/161433 Last Action: Continued on 06/15/18840 by ARABELLA MARTINEZ Metoprolol Tartrate (Metoprolol Tartrate) 50 Mg Tablet, 50 MG PO BID, #60 Prescribed by: ISAAC SPRINGER MD on 02/24/161433 Last Action: Continued on 06/15/18840 by ARABELLA MARTINEZ Multivitamin (Multivitamins) 1 Each Tablet, 1 TAB PO DAILY, #90 Ref 3 (Reported) Entered as Reported by: NATALIO ARDON on 05/11/16115 Last Action: Converted on 06/15/18840 by ARABELLA MARTINEZ Potassium (Potassium) 99 Mg Tablet, 20 MEQ PO DAILY, (Reported) Entered as Reported by: STEVEN WASHBURN on 02/19/132017 Last Action: HELD on 06/15/18840 by ARABELLA MARTINEZ Risperidone (Risperidone) 1 Mg Tablet, 1 MG PO HS, (Reported) Entered as Reported by: STEVEN WASHBURN on 02/19/132017 Last Action: Converted on 06/15/18840 by ARABELLA MARTINEZ Warfarin Sodium (Warfarin Sodium) 2.5 Mg Tablet, 2.5 MG PO 3X/WEEK, (Reported) monday,monday, Entered as Reported by: STEVEN WASHBURN on 02/19/132017 Last Action: HELD on 06/15/18840 by ARABELLA MARTINEZ Warfarin Sodium (Warfarin Sodium) 5 Mg Tablet, 6 MG PO DAILY, (Reported) Entered as Reported by: STEVEN WASHBURN on 02/19/132017 Last Action: HELD on 06/15/18840 by ARABELLA MARTINEZ Zonisamide (Zonisamide) 100 Mg Capsule, 400 MG PO DAILY, (Reported) Entered as Reported by: NATALIO ARDON on 05/11/16 0122 Last Action: Converted on 06/15/18840 by ARABELLA MARTINEZ Scheduled PRN Acetaminophen (Acetaminophen) 500 Mg Tablet, 1 TAB PO PRN Q6HRS PRN for MILD PAIN / TEMP, #60 Ref 1 (Reported) Entered as Reported by: NATALIO ARDON on 05/11/16 010 Last Action: Converted on 06/15/18840 by ARABELLA MARTINEZ Albuterol Sulfate (Albuterol Sulfate Hfa Inhaler) 8.5 Gm Hfa.aer.ad, 2 PUFF IH PRN Q6HRS PRN for SHORTNESS OF BREATH, (Reported) Entered as Reported by: Briana Del Real on 02/20/13 0415 Last Action: Reviewed on 06/15/18840 by ARABELLA MARTINEZ Oxycodone/Apap 5-325 (Percocet 5-325 Mg Tablet ) 1 Each Tablet, 1 TAB PO PRN Q4HRS PRN for PAIN for 6 Days, #18 Prescribed by: NEHAL NELSON MD on 06/22/18 1032 [Warfarin Sodium] 1 EACH EACH, 1 EACH MC PRN DAILY PRN for SEE COMMENTS Prescribed by: ISAAC SPRINGER MD on 02/24/16 1434 Last Action: HELD on 06/15/18840 by ARABELLA MARTINEZ Discontinued Medications Metformin Hcl (Metformin Hcl) 500 Mg Tablet, 1,000 MG PO BIDBFRMEAL, (Reported) Entered as Reported by: STEVEN WASHBURN on 02/19/132017 Last Action: HELD on 06/15/18840 by ARABELLA MARTINEZ Nph, Human Insulin Isophane (Novolin N) 100 Unit/1 Ml Vial, Unknown Dose SQ, (Reported) Entered as Reported by: NATALIO ARDON on 05/11/16 011 Oxycodone Hcl/Acetaminophen (Oxycodone-Acetaminophen 10-325) 1 Each Tablet, 1 EACH PO PRN Q6HRS, (Reported) Entered as Reported by: STEVEN WASHBURN on 02/19/132017 Last Action: HELD on 06/15/18840 by ARABELLA MARTINEZ Prednisone (Prednisone ) 10 Mg Tablet, 10 MG PO DAILY, (Reported) Entered as Reported by: STEVEN WASHBURN on 02/19/132017 Last Action: HELD on 06/15/18840 by ARABELLA MARTINEZ Rosuvastatin Calcium (Crestor) 40 Mg Tablet, 40 MG PO DAILY, (Reported) Entered as Reported by: STEVEN WASHBURN on 02/19/132018 Last Action: Converted on 06/15/18840 by NEHAL ANDINO MD June 22, 2018 10:38
--- NOTE | 2018-06-22 10:50 | PDOC ---
PULMONARY PROGRESS NOTES Subjective no soa Vitals Vital Signs Date Time Temp Pulse Resp B/P (MAP) Pulse Ox O2 Delivery O2 Flow Rate FiO2 06/22/18 08:36 72 155/61 06/22/18 07:32 96 Nasal Cannula 2.0 06/22/18 07:00 98.0 22 98.0 Lungs: Clear Cardiovascular: S1 Abdomen: Soft, Non-tender, Other Extremities: Other (right BKA, 1+edema left) Labs Laboratory Tests Test 06/20/18 11:52 06/20/18 15:33 06/20/18 16:48 06/20/18 21:18 Glucose (Fingerstick) 192 mg/dL (70-99) 145 mg/dL (70-99) 156 mg/dL (70-99) 209 mg/dL (70-99) Test 06/20/18 22:33 06/21/18 05:00 06/21/18 07:49 06/21/18 11:43 Glucose (Fingerstick) 193 mg/dL (70-99) 163 mg/dL (70-99) 163 mg/dL (70-99) Prothrombin Time 25.2 SEC (11.7-14.0) Prothromb Time International Ratio 2.3 (0.8-1.1) Sodium Level 140 mmol/L (136-145) Potassium Level 4.1 mmol/L (3.5-5.1) Chloride Level 102 mmol/L (98-107) Carbon Dioxide Level 33 mmol/L (21-32) Anion Gap 5 (6-14) Blood Urea Nitrogen 12 mg/dL (8-26) Creatinine 0.9 mg/dL (0.7-1.3) Estimated GFR (Cockcroft-Gault) 82.0 Glucose Level 178 mg/dL (70-99) Calcium Level 8.6 mg/dL (8.5-10.1) Test 06/21/18 16:33 06/21/18 21:11 06/22/18 05:10 06/22/18 06:00 Glucose (Fingerstick) 152 mg/dL (70-99) 230 mg/dL (70-99) Sodium Level 139 mmol/L (136-145) Potassium Level 4.0 mmol/L (3.5-5.1) Chloride Level 101 mmol/L (98-107) Carbon Dioxide Level 32 mmol/L (21-32) Anion Gap 6 (6-14) Blood Urea Nitrogen 12 mg/dL (8-26) Creatinine 0.9 mg/dL (0.7-1.3) Estimated GFR (Cockcroft-Gault) 82.0 Glucose Level 184 mg/dL (70-99) Calcium Level 8.7 mg/dL (8.5-10.1) Prothrombin Time 26.1 SEC (11.7-14.0) Prothromb Time International Ratio 2.4 (0.8-1.1) Test 06/22/18 07:18 Glucose (Fingerstick) 159 mg/dL (70-99) Laboratory Tests Test 06/21/18 11:43 06/21/18 16:33 06/21/18 21:11 06/22/18 05:10 Glucose (Fingerstick) 163 mg/dL (70-99) 152 mg/dL (70-99) 230 mg/dL (70-99) Sodium Level 139 mmol/L (136-145) Potassium Level 4.0 mmol/L (3.5-5.1) Chloride Level 101 mmol/L (98-107) Carbon Dioxide Level 32 mmol/L (21-32) Anion Gap 6 (6-14) Blood Urea Nitrogen 12 mg/dL (8-26) Creatinine 0.9 mg/dL (0.7-1.3) Estimated GFR (Cockcroft-Gault) 82.0 Glucose Level 184 mg/dL (70-99) Calcium Level 8.7 mg/dL (8.5-10.1) Test 06/22/18 06:00 06/22/18 07:18 Prothrombin Time 26.1 SEC (11.7-14.0) Prothromb Time International Ratio 2.4 (0.8-1.1) Glucose (Fingerstick) 159 mg/dL (70-99) Medications Active Scripts Medications Dose Route/Sig Max Daily Dose Days Date Category Dose Instructions Digoxin 125 Mcg Tablet 125 Mcg PO DAILY 05/15/16 Rx Furosemide 40 Mg Tablet 40 Mg PO DAILY 05/15/16 Rx Zonisamide 100 Mg Capsule 400 Mg PO DAILY 05/11/16 Reported Percocet 5-325 Mg Tablet (Oxycodone/Acetaminophen) 1 Each Tablet 1 Tab PO PRN Q4HRS PRN 05/11/16 Reported Multivitamins (Multivitamin) 1 Each Tablet 1 Tab PO DAILY 05/11/16 Reported Levetiracetam 250 Mg Tablet 1,250 Mg PO BID 05/11/16 Reported Novolin N (Nph, Human Insulin Isophane) 100 Unit/1 Ml Vial Unknown Dose SQ 05/11/16 Reported Atorvastatin Calcium 80 Mg Tablet 1 Tab PO DAILY 05/11/16 Reported Acetaminophen 500 Mg Tablet 1 Tab PO PRN Q6HRS PRN 05/11/16 Reported Metoprolol Tartrate 50 Mg Tablet 50 Mg PO BID 02/24/16 Rx [Warfarin Sodium] 1 EACH Each 1 Each MC PRN DAILY PRN 02/24/16 Rx Lisinopril 20 Mg Tablet 20 Mg PO DAILY 02/24/16 Rx Duoneb 0.5-3(2.5) Mg/3 Ml (Albuterol/Ipratropium) 3 Ml Ampul.neb 3 Ml NEB Q4HRS W/A 30 02/24/16 Rx Hydralazine Hcl 10 Mg Tablet 10 Mg PO TID 02/24/16 Rx Albuterol Sulfate Hfa Inhaler (Albuterol Sulfate) 8.5 Gm Hfa.aer.ad 2 Puff IH PRN Q6HRS PRN 02/20/13 Reported Aspirin Ec (Aspirin) 325 Mg Tablet.dr 81 Mg PO DAILY 02/20/13 Reported Crestor (Rosuvastatin Calcium) 40 Mg Tablet 40 Mg PO DAILY 02/19/13 Reported Warfarin Sodium 5 Mg Tablet 6 Mg PO DAILY 02/19/13 Reported Warfarin Sodium 2.5 Mg Tablet 2.5 Mg PO 3X/WEEK 02/19/13 Reported monday,monday, Gabapentin (Gabapentin) 300 Mg Capsule 300 Mg PO DAILY 02/19/13 Reported Risperidone 1 Mg Tablet 1 Mg PO HS 02/19/13 Reported Novolog (Insulin Aspart) 100 Unit/1 Ml Vial 10 Unit SQ DAILYAC 02/19/13 Reported Oxycodone-Acetaminophen 10-325 (Oxycodone Hcl/Acetaminophen) 1 Each Tablet 1 Each PO PRN Q6HRS 02/19/13 Reported Potassium 99 Mg Tablet 20 Meq PO DAILY 02/19/13 Reported Prednisone (Prednisone) 10 Mg Tablet 10 Mg PO DAILY 02/19/13 Reported Metformin Hcl 500 Mg Tablet 1,000 Mg PO BIDBFRMEAL 02/19/[address] CHEST IMPRESSION: 1. Bilateral airspace disease with more focal areas of consolidation in the right upper lobe and superior segment left lower lobe, likely related to pneumonia. 2. Moderate size bilateral pleural effusions. 3. Mediastinal and right hilar lymphadenopathy, likely reactive. Follow-up imaging after treatment to ensure resolution. 4. Aneurysmal dilation of the ascending thoracic aorta, unchanged. Electronically signed by: John Blunt MD (06/20/2018 8:41 AM) [facility] Impression . IMPRESSION: 1. Acute hypoxemic respiratory failure. 2. [id number] diastolic heart failure. 3. Atrial fibrillation with rapid ventricular response. 4. Coronary artery disease, status post coronary artery bypass grafting. 5. Leukocytosis, suspect reactive. 6. 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 7. Peripheral vascular disease. 8. Functional quadriplegia. 9. Accelerated hypertension. 10. Severe protein malnutrition. 11 h/o MRSA bacteremia with sepsis from 05/18. D/c Dapto till 07/02 -CRYSTAL done no vegetations 05/21; BC from 05/20 & onward were neg (PER ID) 12 NEGATIVE LEFT UPPER EXT VENOUS 13. CMP EF 35% 14. ABNORMAL CXR/ CT CHEST 06/20. Bilateral airspace disease with more focal areas of consolidation in the right upper lobe and superior segment left lower lobe, likely related to pneumonia./ Moderate size bilateral pleural effusions.due to low oncotic pressure Plan . ANTIBX PER ID repeat cxr in a week GI WORK UP PRN BIPAP U/S UPPER L EXT NEGATIVE DIURESE PLANS FOR SKILL PER PCP RAMESH SANTIAGO MD June 22, 2018 10:49
[2018-06-22 11:00] VITALS: BP 159/59
--- NOTE | 2018-06-22 12:26 | NUR ---
SW following. Pt will be discharging to [facility] at 1400. RN and Family notified.
--- NOTE | 2018-06-22 14:25 | NUR ---
Discharge Note: [facility]ICKI [place] Discharge instructions and discharge home medications reviewed with Other facility and a copy given. All questions have been answered and understanding verbalized. Report given to DANNY Mclain at [facility]. The following instructions and handouts were given: information about plan of care, medications, wounds, etc. Discontinued lines and drains: right upper arm double lumen PICC line left in place for antibiotics to be administered at facility. Patient discharged to [facility] with medical transport, layla used for transport to discharge vehicle.
[2018-06-22] MEDS ORDERED: WARFARIN 4 MG TABLET. PO ONE (16:00)
[2018-06-28] MEDS ORDERED: FAMO20TA5 PO (09:33)
[2018-06-28] MEDS ORDERED: BUDE0.5A NEB (09:33)
== END 2018-06-22 14:25 | DRG 871 ==
LOC: ER 08:07 → 1 WEST ICU 08:51 → 4 NORTH 06-17 15:46
PROVIDERS: ADMIT Internal Medicine; ATTEND Internal Medicine
PROC: 30233K1 Transfusion of Nonautologous Frozen Plasma into Peripheral Vein, Percutaneous Approach (ICD-10-PCS; principal; 2018-06-20)
PROC: 30233N1 Transfusion of Nonautologous Red Blood Cells into Peripheral Vein, Percutaneous Approach (ICD-10-PCS; 2018-06-20)
DX: A41.9 Sepsis, unspecified organism (principal); J18.9 Pneumonia, unspecified organism; J96.01 Acute respiratory failure with hypoxia; I50.33 Acute on chronic diastolic (congestive) heart failure; E43 Unspecified severe protein-calorie malnutrition; R53.2 Functional quadriplegia; J44.0 Chronic obstructive pulmonary disease with (acute) lower respiratory infection; L97.329 Non-pressure chronic ulcer of left ankle with unspecified severity; N39.0 Urinary tract infection, site not specified; K92.2 Gastrointestinal hemorrhage, unspecified; I11.0 Hypertensive heart disease with heart failure; D63.8 Anemia in other chronic diseases classified elsewhere; E11.51 Type 2 diabetes mellitus with diabetic peripheral angiopathy without gangrene; E78.00 Pure hypercholesterolemia, unspecified; E78.5 Hyperlipidemia, unspecified; G40.909 Epilepsy, unspecified, not intractable, without status epilepticus; I25.10 Atherosclerotic heart disease of native coronary artery without angina pectoris; I25.2 Old myocardial infarction; I25.5 Ischemic cardiomyopathy; I44.7 Left bundle-branch block, unspecified; I48.91 Unspecified atrial fibrillation; I71.2 Thoracic aortic aneurysm, without rupture; Y95 Nosocomial condition; Z96.642 Presence of left artificial hip joint; B96.20 Unspecified Escherichia coli [E. coli] as the cause of diseases classified elsewhere; Z79.01 Long term (current) use of anticoagulants; Z80.8 Family history of malignant neoplasm of other organs or systems; Z82.49 Family history of ischemic heart disease and other diseases of the circulatory system; Z86.14 Personal history of Methicillin resistant Staphylococcus aureus infection; Z86.73 Personal history of transient ischemic attack (TIA), and cerebral infarction without residual deficits; Z89.511 Acquired absence of right leg below knee; Z90.49 Acquired absence of other specified parts of digestive tract; Z91.19 Patient's noncompliance with other medical treatment and regimen; Z95.0 Presence of cardiac pacemaker; Z95.1 Presence of aortocoronary bypass graft; Z99.81 Dependence on supplemental oxygen; Z87.891 Personal history of nicotine dependence; E66.9 Obesity, unspecified; F32.9 Major depressive disorder, single episode, unspecified; M19.90 Unspecified osteoarthritis, unspecified site; Z88.8 Allergy status to other drugs, medicaments and biological substances; Z68.29 Body mass index [BMI] 29.0-29.9, adult
CPT/HCPCS: 36415; 71045; 71250; 76705; 80048; 80076; 80202; 81001; 82550; 82962; 83605; 83690; 83735; 83880; 84145; 84484; 85007; 85025; 85027; 85610; 85651; 86850; 86900; 86901; 86920; 86927; 87040; 87086; 87186; 87641; 93005; 93971; 94640; 94760; J0878; J1815; J2543; J2930; J3370; J7030; J7040; J7613; J7620; P9016; P9017; 97110; 97530; 97535; 99285-25

== ENCOUNTER 2018-06-23 03:10 | Inpatient (IN) | payer OTHER ==
[~2018-06-23] VITALS: Ht 172.7 cm; Wt 89.8 kg
[~2018-06-23 03:10] MED LIST changes: +CEPH250C PO; +DAPT350V IV
[2018-06-23] MEDS ORDERED: DEXAMETHASONE SOD PHOS 4 MG/ML VIAL IV ONE (03:30)
[2018-06-23] MEDS ORDERED: IPRATRPIUM/ALBUTEROL 0.5/2.5MG 3 ML NEBU. NEB ONE (03:30)
[2018-06-23 03:36] LABS: BASO # 0.1 x10^3/uL (0.0-0.2); BASO % 1 % (0-3); EOS # 0.7 x10^3/uL (0.0-0.7); EOS % 4 % (0-3); HEMATOCRIT 23.8 % (39.0-53.0); HEMOGLOBIN 7.4 g/dL (13.0-17.5); LYMPH # 0.9 x10^3/uL (1.0-4.8); LYMPH % 6 % (24-48); MEAN CORPUSCULAR HEMOGLOBIN 26 pg (25-35); MEAN CORPUSCULAR HGB CONC 31 g/dL (31-37); MEAN CORPUSCULAR VOLUME 83 fL (79-100); MONO # 1.8 x10^3/uL (0.0-1.1); MONO % 11 % (0-9); NEUT # 13.2 x10^3uL (1.8-7.7); NEUT % 79 % (31-73); PLATELET COUNT 262 x10^3/uL (140-400); RED BLOOD COUNT 2.86 x10^6/uL (4.30-5.70); RED CELL DISTRIBUTION WIDTH 17.1 % (11.5-14.5); WHITE BLOOD COUNT 16.8 x10^3/uL (4.0-11.0)
[2018-06-23 03:46] LABS: CALCIUM 8.8 mg/dL (8.5-10.1); CREATININE 1.1 mg/dL (0.7-1.3); GFR 65.1; POTASSIUM 4.1 mmol/L (3.5-5.1)
--- NOTE | 2018-06-23 03:49 | PHYS DOC ---
Past Medical History Past Medical History: A-Fib, Anemia, Arthritis, CAD, CHF, COPD, Depression, Diabetes-Type II, High Cholesterol, Hypertension, MRSA, Seizure, Stroke Additional Past Medical Histor: bronchiolitis obliterans, TREMORS,NECROTIC RT TOES, RT HEEL, LT OUTER ANKLE Past Surgical History: Appendectomy, Coronary Bypass Surgery Additional Past Surgical Histo: MULTIPLE TOE AMP, ROTATOR CUFF, BOVINE VALVE, LT HIP Smoking: Quit Greater Than 1 Year Alcohol Use: None Drug Use: None Adult General Chief Complaint Chief Complaint: DYSPNEA/RESPIRATOY DISTRESS HPI HPI Patient is a 78 year old male who presents with shortness of breath. Patient has an extensive medical history was recently discharge from [facility] for treatment of pneumonia and sepsis. Today at [facility] he was found to have SpO2 in the low 80s on his usual 3 L O2. They increased his O2 to 7 L with improvement of his saturation but he still felt short of breath. He says that he has not had worsening cough. It is more difficult for him to breath lying down and his LE's are swollen. He denies chest pain, palpitations, fever, chills, or abdominal pain at this time. Review of Systems Review of Systems Constitutional: Denies fever or chills [] Eyes: Denies change in visual acuity or diplopia [] HENT: Denies nasal congestion or sore throat [] Respiratory: Reports shortness of breath and dyspnea. Denies cough or increased sputum.[] Cardiovascular: Denies chest pain or palpitations [] GI: Denies abdominal pain, nausea, vomiting, or diarrhea [] : Denies dysuria or hematuria [] Neurologic: Denies headache, focal weakness or sensory changes [] Complete review of systems found to be within normal limits, except as documented in this note. Current Medications Current Medications Current Medications Medications (Trade) Dose Ordered Sig/Ana Start Time Stop Time Status Last Admin Dose Admin Acetaminophen (Tylenol) 650 mg PRN Q4HRS PRN 06/23/18 04:15 06/24/18 04:14 Albuterol/ Ipratropium (Duoneb) 3 ml RTQID 06/23/18 08:00 06/24/18 07:59 Aspirin (Alexander Aspirin) 325 mg 1X ONCE 06/23/18 04:15 06/23/18 04:16 DC 06/23/18 04:33 325 MG Dexamethasone Sodium Phosphate (Decadron) 10 mg 1X ONCE 06/23/18 03:30 06/23/18 03:33 DC 06/23/18 04:33 10 MG Dextrose (Dextrose 50%-Water Syringe) 12.5 gm PRN Q15MIN PRN 06/23/18 04:15 Info (CONTRAST GIVEN -- Rx MONITORING) 1 each PRN DAILY PRN 06/23/18 05:00 06/25/18 04:59 Insulin Human Lispro (HumaLOG) 0-5 UNITS TIDWMEALS 06/23/18 08:00 UNV Iohexol (Omnipaque 350 Mg/ml) 100 ml 1X ONCE 06/23/18 05:00 06/23/18 05:01 DC 06/23/18 04:58 100 ML Morphine Sulfate (Morphine Sulfate) 4 mg PRN Q4HRS PRN 06/23/18 04:15 Ondansetron HCl (Zofran) 4 mg PRN Q8HRS PRN 06/23/18 04:15 06/24/18 04:14 Sodium Chloride 1,000 ml @ 1,000 mls/hr 1X ONCE 06/23/18 04:15 06/23/18 04:33 DC Allergies Allergies Allergies Coded Allergies Type Severity Reaction Last Updated Verified fentanyl Allergy Intermediate 06/17/18 Yes I S O L A T I O N *CONTACT* Allergy Unknown 05/23/18 Yes Physical Exam Physical Exam Constitutional: Frail appearing man laying in hospital bed. [] HENT: Normocephalic, atraumatic. [] Eyes: EOMI, conjunctiva normal, no discharge. [] Neck: Supple and nontender [] Cardiovascular: Irregularly irregular rhythm with rate ranging from 90s to 120s, systolic murmur [] Lungs & Thorax: Diminished breath sounds throughout with bibasilar crackles. [] Abdomen: Soft and nontender. [] Skin: Warm, dry, no erythema, no rash. [] Extremities: Right below the knee amputation, left LE edematous. Left UE edematous. [] Neurologic: Alert and oriented. [] Psychologic: Affect normal, judgement normal, mood normal. [] Current Patient Data Vital Signs Vital Signs Date Time Temp Pulse Resp B/P (MAP) Pulse Ox O2 Delivery O2 Flow Rate FiO2 06/23/18 04:09 96 Nasal Cannula 3.0 06/23/18 03:10 98.2 99 34 129/60 (83) 98.2 Lab Values Laboratory Tests Test 06/23/18 03:20 White Blood Count 16.8 x10^3/uL (4.0-11.0) H Red Blood Count 2.86 x10^6/uL (4.30-5.70) L Hemoglobin 7.4 g/dL (13.0-17.5) L Hematocrit 23.8 % (39.0-53.0) L Mean Corpuscular Volume 83 fL (79-100) Mean Corpuscular Hemoglobin 26 pg (25-35) Mean Corpuscular Hemoglobin Concent 31 g/dL (31-37) Red Cell Distribution Width 17.1 % (11.5-14.5) H Platelet Count 262 x10^3/uL (140-400) Neutrophils (%) (Auto) 79 % (31-73) H Lymphocytes (%) (Auto) 6 % (24-48) L Monocytes (%) (Auto) 11 % (0-9) H Eosinophils (%) (Auto) 4 % (0-3) H Basophils (%) (Auto) 1 % (0-3) Neutrophils # (Auto) 13.2 x10^3uL (1.8-7.7) H Lymphocytes # (Auto) 0.9 x10^3/uL (1.0-4.8) L Monocytes # (Auto) 1.8 x10^3/uL (0.0-1.1) H Eosinophils # (Auto) 0.7 x10^3/uL (0.0-0.7) Basophils # (Auto) 0.1 x10^3/uL (0.0-0.2) Segmented Neutrophils % 86 % (35-66) H Lymphocytes % 4 % (24-48) L Monocytes % 8 % (0-10) Eosinophils % 2 % (0-5) Platelet Estimate Adequate (ADEQUATE) Hypochromasia Mod Anisocytosis Slight Sodium Level 140 mmol/L (136-145) Potassium Level 4.1 mmol/L (3.5-5.1) Chloride Level 102 mmol/L (98-107) Carbon Dioxide Level 31 mmol/L (21-32) Anion Gap 7 (6-14) Blood Urea Nitrogen 14 mg/dL (8-26) Creatinine 1.1 mg/dL (0.7-1.3) Estimated GFR (Cockcroft-Gault) 65.1 BUN/Creatinine Ratio 13 (6-20) Glucose Level 136 mg/dL (70-99) H Lactic Acid Level 0.8 mmol/L (0.4-2.0) Calcium Level 8.8 mg/dL (8.5-10.1) Magnesium Level 1.9 mg/dL (1.8-2.4) Total Bilirubin 0.5 mg/dL (0.2-1.0) Aspartate Amino Transferase (AST) 30 U/L (15-37) Alanine Aminotransferase (ALT) 26 U/L (16-63) Alkaline Phosphatase 74 U/L (46-116) Creatine Kinase 31 U/L (39-308) L Creatine Kinase MB (Mass) 1.4 ng/mL (0.0-3.6) Creatine Kinase MB Relative Index % (0-4) Troponin I Quantitative 0.060 ng/mL (0.000-0.055) PU-Cgv-Q-Type Natriuretic Peptide 9867 pg/mL (0-449) H Total Protein 6.6 g/dL (6.4-8.2) Albumin 1.8 g/dL (3.4-5.0) L Albumin/Globulin Ratio 0.4 (1.0-1.7) L Digoxin Level 0.9 ng/mL (0.9-2.0) Digoxin Last Dose Date Unk Digoxin Last Dose Time Unk Laboratory Tests 06/23/18 03:20 Laboratory Tests 06/23/18 03:20 EKG EKG @0431: Atrial fibrillation with rapid ventricular response. Rate of 104. Left bundle branch block with QRS of 132 ms. Left axis deviation present. ST and T wave abnormalities in lateral leads. [] Radiology/Procedures Radiology/Procedures PROCEDURE: CT ANGIOGRAPHY CHEST PQRS Compliance Statement: One or more of the following individualized dose reduction techniques were utilized for this examination: 1. Automated exposure control 2. Adjustment of the mA and/or kV according to patient size 3. Use of iterative reconstruction technique CT CHEST WITH CONTRAST, PULMONARY ANGIOGRAM History: Shortness of breath. Comparison: None. Technique: Helical CT of the chest was performed after the administration of 100 cc of Omnipaque 350 intravenous contrast according to PE protocol. Axial and coronal reconstructions were obtained. 3-D MIP images were constructed to better evaluate the pulmonary arteries. Findings: Pulmonary arteries are adequately opacified. There is no evidence of pulmonary embolism. The pulmonary trunk is dilated measuring up to 4.3 cm suggesting pulmonary arterial hypertension. No thoracic aortic dissection. Atherosclerotic aortic arch. Median sternotomy wires and changes of CABG and aortic valve prosthesis. There is right PICC tip in distal SVC. There is coronary artery disease. Cardiac size normal, no pericardial effusion. Mild mediastinal adenopathy is likely reactive, unchanged. There are moderate bilateral pleural effusions. The central airways are patent. There are moderate consolidations in the right upper lobe. Patchy groundglass opacities are seen in the left upper lobe. There is compressive atelectasis in the bilateral lower lobes adjacent to the effusions, mild bilaterally. There are patchy groundglass opacities in the aerated right lower lobe. Small nodular and groundglass opacities are seen in the medial right middle lobe. Pulmonary findings are similar to prior study. Hydropic gallbladder contains hyperdense material, sludge versus vicarious excretion of contrast. Fatty replacement of the pancreas. Small bilateral upper pole renal cysts. Degenerative spondylosis of the thoracic spine. IMPRESSION: 1. There is no CT evidence of pulmonary embolus. 2. Dilated pulmonary trunk suggests pulmonary arterial hypertension. 3. Moderate bilateral pleural effusions. 4. Unchanged right upper lobe bronchopneumonia. Scattered groundglass opacities in the lungs are similar to prior study and are likely infectious/inflammatory. 5. Mild mediastinal adenopathy may be reactive. Electronically signed by: Gene Hernandes MD (06/23/2018 5:37 AM) [facility] Course & Med Decision Making Course & Med Decision Making Pertinent Labs and Imaging studies reviewed. (See chart for details) Patient is a 78 year old male who was discharged yesterday 06/22 for treatment of pneumonia and sepsis. This afternoon he became dyspneic with SpO2 in low 80s. On arrival to ED his saturations are above 95% on 3 L by nasal canula which is is baseline O2 requirement. Received breathing treatment in ED with improvement in his respiratory effort. Dexamethasone and aspirin given in ED. Patient has a history of atrial fibrillation and has a current rate ranging from 90s to 120s. CBC notable for WBC of 16.8 (elevated since discharge) and hemoglobin of 7.4 Lactic acid negative. Troponin 0.060 (up from 0.030). Pro-BNP 9867 (down from 40568). CT scan showed no evidence of pulmonary embolism but a unchanged right upper lobe bronchopneumonia remains. Empiric antibiotics started in ED for treat ment of pneumonia along with 1 L fluid bolus. Patient requiring admission for further evaluation and treatment. Discussed with Dr. Witt who is in agreement with admission. Discussed findings and plan with patient and family, who acknowledge understanding and agreement. [] Dragon Disclaimer Dragon Disclaimer This electronic medical record was generated, in whole or in part, using a voice recognition dictation system. Departure Departure Impression: Primary Impression: Dyspnea Additional Impressions: Hypoxia Elevated troponin Disposition: ADMITTED INPATIENT Admitting Physician: Other (Miryam) Condition: GUARDED Referrals: NO PCP (PCP) Critical Care Time Critical care time was 30 minutes which includes time at bedside, spent in discussion of patient's care with specialists and/or family members, with interpretation of laboratory and/or radiological studies and is exclusive of procedures. Problem Qualifiers Primary Impression: Dyspnea Dyspnea type: shortness of breath Qualified Codes: R06.02 - Shortness of breath JORGENSENARABELLA DO June 23, 2018 03:49
[2018-06-23 03:53] LABS: ALBUMIN 1.8 g/dL (3.4-5.0); ALBUMIN/GLOBULIN RATIO 0.4 (1.0-1.7); MAGNESIUM 1.9 mg/dL (1.8-2.4); TOTAL BILIRUBIN 0.5 mg/dL (0.2-1.0); TOTAL PROTEIN 6.6 g/dL (6.4-8.2)
[2018-06-23 03:59] LABS: CREATINE KINASE 31 U/L (39-308)
[2018-06-23] MEDS ORDERED: ASPIRIN 325 MG TABLET PO ONE (04:15)
[2018-06-23] MEDS ORDERED: IV NORMAL SALINE 1000ML BAG 1,000 ML IV ONE (04:15)
[2018-06-23] MEDS ORDERED: ACETAMINOPHEN 325 MG TABLET. PO PRN (04:15)
[2018-06-23] MEDS ORDERED: DEXTROSE 50% 25 GM / 50ML DISP.SYRIN. IV PRN (04:15)
[2018-06-23] MEDS ORDERED: ONDANSETRON PF 4 MG/2 ML VIAL. IV PRN (04:15)
[2018-06-23 04:21] LABS: DIG 0.9 ng/mL (0.9-2.0)
[2018-06-23 04:58] LABS: % EOS 2 % (0-5); % LYMPHS 4 % (24-48); % MONOS 8 % (0-10); % SEGS 86 % (35-66); ANISOCYTOSIS SLIGHT; HYPOCHROMIA MOD; PLT ESTIMATE ADEQUATE (ADEQUATE)
[2018-06-23] MEDS ORDERED: IOHEXOL 350 MG/ML 100 ML VIAL. IV ONE (05:00)
[2018-06-23] MEDS ORDERED: CONTRAST GIVEN. MC PRN (05:00)
--- NOTE | 2018-06-23 05:40 | RAD ---
PQRS Compliance Statement: One or more of the following individualized dose reduction techniques were utilized for this examination: 1. Automated exposure control 2. Adjustment of the mA and/or kV according to patient size 3. Use of iterative reconstruction technique CT CHEST WITH CONTRAST, PULMONARY ANGIOGRAM History: Shortness of breath. Comparison: None. Technique: Helical CT of the chest was performed after the administration of 100 cc of Omnipaque 350 intravenous contrast according to PE protocol. Axial and coronal reconstructions were obtained. 3-D MIP images were constructed to better evaluate the pulmonary arteries. Findings: Pulmonary arteries are adequately opacified. There is no evidence of pulmonary embolism. The pulmonary trunk is dilated measuring up to 4.3 cm suggesting pulmonary arterial hypertension. No thoracic aortic dissection. Atherosclerotic aortic arch. Median sternotomy wires and changes of CABG and aortic valve prosthesis. There is right PICC tip in distal SVC. There is coronary artery disease. Cardiac size normal, no pericardial effusion. Mild mediastinal adenopathy is likely reactive, unchanged. There are moderate bilateral pleural effusions. The central airways are patent. There are moderate consolidations in the right upper lobe. Patchy groundglass opacities are seen in the left upper lobe. There is compressive atelectasis in the bilateral lower lobes adjacent to the effusions, mild bilaterally. There are patchy groundglass opacities in the aerated right lower lobe. Small nodular and groundglass opacities are seen in the medial right middle lobe. Pulmonary findings are similar to prior study. Hydropic gallbladder contains hyperdense material, sludge versus vicarious excretion of contrast. Fatty replacement of the pancreas. Small bilateral upper pole renal cysts. Degenerative spondylosis of the thoracic spine. IMPRESSION: 1. There is no CT evidence of pulmonary embolus. 2. Dilated pulmonary trunk suggests pulmonary arterial hypertension. 3. Moderate bilateral pleural effusions. 4. Unchanged right upper lobe bronchopneumonia. Scattered groundglass opacities in the lungs are similar to prior study and are likely infectious/inflammatory. 5. Mild mediastinal adenopathy may be reactive. Electronically signed by: Gene Hernandes MD (06/23/2018 5:37 AM) [facility]
[2018-06-23] MEDS ORDERED: PIPERACILLIN/TAZOBACTAM 4.5 GM in IV NORMAL SALINE 100ML 100 ML IV ONE (06:00)
[2018-06-23] MEDS ORDERED: VANCOMYCIN 2 GM in IV NORMAL SALINE 500ML BAG 500 ML IV ONE (06:00)
[2018-06-23 07:30] VITALS: BP 119/56
--- NOTE | 2018-06-23 07:45 | NUR ---
PT arrived to bed 112 with admission diagnosis of dyspnea, elevated troponin, and hypoxia. Pt currently denies SOA or pain. Pt has several wounds. Pt has DL PICC line in right upper arm placed [employer]. Currently on 3L NC which patient wears at home. at bedside. Will continue to monitor.
[2018-06-23] MEDS: INSULIN LISPRO 300 UNITS/3 ML INSULN.PEN. SQ SCH ×3 (08:00→17:18)
[2018-06-23] MEDS ORDERED: IPRATRPIUM/ALBUTEROL 0.5/2.5MG 3 ML NEBU. NEB SCH (08:00)
--- NOTE | 2018-06-23 09:56 | PDOC1 ---
History and Physical Date of Admission Date of Admission DATE: 06/23/18 TIME: 09:56 Identification/Chief Complaint Chief Complaint seen in er, Patient is a 78 year old male who was discharged 06/22 for treatment of pneumonia and sepsis. This afternoon he became dyspneic with SpO2 in low 80s. On arrival to ED his saturations are above 95% on 3 L by nasal canula which is is baseline O2 requirement. Received breathing treatment in ED with improvement in his respiratory effort. Dexamethasone and aspirin given in ED. Patient has a history of atrial fibrillation and has a current rate ranging from 90s to 120s. CBC notable for WBC of 16.8 (elevated since discharge) and hemoglobin of 7.4 L actic acid negative. Troponin 0.060 (up from 0.030). Pro-BNP 9867 (down from 63620). CT scan showed no evidence of pulmonary embolism but a unchanged right upper lobe bronchopneumonia remains. Empiric antibiotics started in ED for treatment of pneumonia Past Medical History Past Medical History Past Medical History Past Medical History: A-Fib, Anemia, Arthritis, CAD, CHF, COPD, Depression, Diabetes-Type II, High Cholesterol, Hypertension, MRSA, Seizure, Stroke Additional Past Medical Histor: bronchiolitis obliterans, TREMORS,NECROTIC RT TOES, RT HEEL, LT OUTER ANKLE Past Surgical History: Appendectomy, Coronary Bypass Surgery Additional Past Surgical Histo: MULTIPLE TOE AMP, ROTATOR CUFF, BOVINE VALVE, LT HIP Smoking: Quit Greater Than 1 Year Alcohol Use: None Drug Use: None family hx obesity Cardiovascular: AFIB, HTN, NE Pulmonary: Asthma, Bronchitis, COPD, Pneumonia, Other CENTRAL NERVOUS SYSTEM: CVA, Periperal neuropathy GI: Other Heme/Onc: No pertinent hx Hepatobiliary: No pertinent hx Psych: Depression Musculoskeletal: Osteoarthritis Rheumatologic: No pertinent hx Infectious disease: No pertinent hx Renal/: Other Endocrine: Diabetes Past Surgical History Past Surgical History: Pacemaker, Appendectomy, CABG, Other Family History Family History: Coronary Artery Disease, High Cholestrol, Hypertension Social History Smoke: No ALCOHOL: none Drugs: None Current Medications Current Medications Current Medications Albuterol/ Ipratropium (Duoneb) 3 ml 1X ONCE NEB Last administered on 06/23/18at 04:06; Start 06/23/18 at 03:30; Stop 06/23/18 at 03:33; Status DC Dexamethasone Sodium Phosphate (Decadron) 10 mg 1X ONCE IV Last administered on 06/23/18at 04:33; Start 06/23/18 at 03:30; Stop 06/23/18 at 03:33; Status DC Aspirin (Alexander Aspirin) 325 mg 1X ONCE PO Last administered on 06/23/18at 04:33; Start 06/23/18 at 04:15; Stop 06/23/18 at 04:16; Status DC Sodium Chloride 1,000 ml @ 1,000 mls/hr 1X ONCE IV ; Start 06/23/18 at 04:15; Stop 06/23/18 at 04:33; Status DC Ondansetron HCl (Zofran) 4 mg PRN Q8HRS PRN IV NAUSEA/VOMITING; Start 06/23/18 at 04:15; Stop 06/24/18 at 04:14 Acetaminophen (Tylenol) 650 mg PRN Q4HRS PRN PO FEVER; Start 06/23/18 at 04:15; Stop 06/24/18 at 04:14 Albuterol/ Ipratropium (Duoneb) 3 ml RTQID NEB Last administered on 06/23/18at 08:01; Start 06/23/18 at 08:00; Stop 06/24/18 at 07:59 Insulin Human Lispro (HumaLOG) 0-5 UNITS TIDWMEALS SQ ; Start 06/23/18 at 08:00 Dextrose (Dextrose 50%-Water Syringe) 12.5 gm PRN Q15MIN PRN IV SEE COMMENTS; Start 06/23/18 at 04:15 Morphine Sulfate (Morphine Sulfate) 4 mg PRN Q4HRS PRN IV MODERATE PAIN 4-6; Start 06/23/18 at 04:15 Iohexol (Omnipaque 350 Mg/ml) 100 ml 1X ONCE IV Last administered on 06/23/18at 04:58; Start 06/23/18 at 05:00; Stop 06/23/18 at 05:01; Status DC Info (CONTRAST GIVEN -- Rx MONITORING) 1 each PRN DAILY PRN MC SEE COMMENTS; Start 06/23/18 at 05:00; Stop 06/25/18 at 04:59 Piperacillin Sod/ Tazobactam Sod 4.5 gm/Sodium Chloride 100 ml @ 200 mls/hr 1X ONCE IV Last administered on 06/23/18at 06:12; Start 06/23/18 at 06:00; Stop 06/23/18 at 06:29; Status DC Vancomycin HCl 2 gm/Sodium Chloride 500 ml @ 250 mls/hr 1X ONCE IV Last administered on 06/23/18at 08:02; Start 06/23/18 at 06:00; Stop 06/23/18 at 07:59; Status DC Active Scripts Active Daptomycin 350 Mg Vial 350 Mg IV DAILY 10 Days Cephalexin 250 Mg Capsule 500 Mg PO QID 3 Days Percocet 5-325 Mg Tablet (Oxycodone/Acetaminophen) 1 Each Tablet 1 Tab PO PRN Q4HRS PRN 6 Days Digoxin 125 Mcg Tablet 125 Mcg PO DAILY Furosemide 40 Mg Tablet 40 Mg PO DAILY Metoprolol Tartrate 50 Mg Tablet 50 Mg PO BID [Warfarin Sodium] 1 EACH Each 1 Each MC PRN DAILY PRN Lisinopril 20 Mg Tablet 20 Mg PO DAILY Duoneb 0.5-3(2.5) Mg/3 Ml (Albuterol/Ipratropium) 3 Ml Ampul.neb 3 Ml NEB Q4HRS W/A 30 Days Hydralazine Hcl 10 Mg Tablet 10 Mg PO TID Reported Zonisamide 100 Mg Capsule 400 Mg PO DAILY Multivitamins (Multivitamin) 1 Each Tablet 1 Tab PO DAILY Levetiracetam 250 Mg Tablet 1,250 Mg PO BID Atorvastatin Calcium 80 Mg Tablet 1 Tab PO DAILY Acetaminophen 500 Mg Tablet 1 Tab PO PRN Q6HRS PRN Albuterol Sulfate Hfa Inhaler (Albuterol Sulfate) 8.5 Gm Hfa.aer.ad 2 Puff IH PRN Q6HRS PRN Aspirin Ec (Aspirin) 325 Mg Tablet.dr 81 Mg PO DAILY Warfarin Sodium 5 Mg Tablet 6 Mg PO DAILY Warfarin Sodium 2.5 Mg Tablet 2.5 Mg PO 3X/WEEK monday,monday, Gabapentin (Gabapentin) 300 Mg Capsule 300 Mg PO DAILY Risperidone 1 Mg Tablet 1 Mg PO HS Novolog (Insulin Aspart) 100 Unit/1 Ml Vial 10 Unit SQ DAILYAC Potassium 99 Mg Tablet 20 Meq PO DAILY Allergies Allergies: Coded Allergies: fentanyl (Verified Allergy, Intermediate, 06/17/18) Per pt : agitation and difficulty awakening pt after fentanyl administration I S O L A T I O N *CONTACT* (Verified Allergy, Unknown, 05/23/18) mrsa ROS Review of System Review of Systems Review of Systems Constitutional: Denies fever or chills [] Eyes: Denies change in visual acuity or diplopia [] HENT: Denies nasal congestion or sore throat [] Respiratory: Reports shortness of breath and dyspnea. Denies cough or increased sputum.[] Cardiovascular: Denies chest pain or palpitations [] GI: Denies abdominal pain, nausea, vomiting, or diarrhea [] : Denies dysuria or hematuria [] Neurologic: Denies headache, focal weakness or sensory changes [] 14 PT review of systems found to be within normal limits, except as documented General: YES: Fatigue, Malaise Cardiovascular: yes Palpitations Musculoskeletal: Yes Joint Stiffness Physical Exam Physical Exam Constitutional: Frail appearing [] HENT: Normocephalic, atraumatic. [] Eyes: EOMI, conjunctiva normal, no discharge. [] Neck: Supple and nontender [] Cardiovascular: Irregularly irregular rhythm with rate ranging from 90s to 120s, systolic murmur [] Lungs & Thorax: Diminished breath sounds throughout with bibasilar crackles. [] Abdomen: Soft and nontender. [] Skin: Warm, dry, no erythema, no rash. [] Extremities: Right below the knee amputation, left LE edematous. Left UE edematous. [] Neurologic: Alert and oriented. [] Psychologic: Affect normal, judgement normal, mood normal. [] General: Cooperative Breasts: Not examined Abdomen: Normal bowel sounds, Soft Rectal Exam: not examined Extremities: No cyanosis Neuro: Cranial nerves 3-12 NL Psych/Mental Status: Mood NL Vitals Vitals Vital Signs Date Time Temp Pulse Resp B/P (MAP) Pulse Ox O2 Delivery O2 Flow Rate FiO2 06/23/18 08:01 98 Nasal Cannula 3.0 06/23/18 05:58 76 24 119/53 (75) 06/23/18 03:10 98.2 98.2 Labs Labs Laboratory Tests Test 06/23/18 03:20 06/23/18 07:10 White Blood Count 16.8 x10^3/uL (4.0-11.0) Red Blood Count 2.86 x10^6/uL (4.30-5.70) Hemoglobin 7.4 g/dL (13.0-17.5) Hematocrit 23.8 % (39.0-53.0) Mean Corpuscular Volume 83 fL (79-100) Mean Corpuscular Hemoglobin 26 pg (25-35) Mean Corpuscular Hemoglobin Concent 31 g/dL (31-37) Red Cell Distribution Width 17.1 % (11.5-14.5) Platelet Count 262 x10^3/uL (140-400) Neutrophils (%) (Auto) 79 % (31-73) Lymphocytes (%) (Auto) 6 % (24-48) Monocytes (%) (Auto) 11 % (0-9) Eosinophils (%) (Auto) 4 % (0-3) Basophils (%) (Auto) 1 % (0-3) Neutrophils # (Auto) 13.2 x10^3uL (1.8-7.7) Lymphocytes # (Auto) 0.9 x10^3/uL (1.0-4.8) Monocytes # (Auto) 1.8 x10^3/uL (0.0-1.1) Eosinophils # (Auto) 0.7 x10^3/uL (0.0-0.7) Basophils # (Auto) 0.1 x10^3/uL (0.0-0.2) Segmented Neutrophils % 86 % (35-66) Lymphocytes % 4 % (24-48) Monocytes % 8 % (0-10) Eosinophils % 2 % (0-5) Platelet Estimate Adequate (ADEQUATE) Hypochromasia Mod Anisocytosis Slight Sodium Level 140 mmol/L (136-145) Potassium Level 4.1 mmol/L (3.5-5.1) Chloride Level 102 mmol/L (98-107) Carbon Dioxide Level 31 mmol/L (21-32) Anion Gap 7 (6-14) Blood Urea Nitrogen 14 mg/dL (8-26) Creatinine 1.1 mg/dL (0.7-1.3) Estimated GFR (Cockcroft-Gault) 65.1 BUN/Creatinine Ratio 13 (6-20) Glucose Level 136 mg/dL (70-99) Lactic Acid Level 0.8 mmol/L (0.4-2.0) 0.7 mmol/L (0.4-2.0) Calcium Level 8.8 mg/dL (8.5-10.1) Magnesium Level 1.9 mg/dL (1.8-2.4) Total Bilirubin 0.5 mg/dL (0.2-1.0) Aspartate Amino Transf (AST/SGOT) 30 U/L (15-37) Alanine Aminotransferase (ALT/SGPT) 26 U/L (16-63) Alkaline Phosphatase 74 U/L (46-116) Creatine Kinase 31 U/L (39-308) Creatine Kinase MB (Mass) 1.4 ng/mL (0.0-3.6) Creatine Kinase MB Relative Index % (0-4) Troponin I Quantitative 0.060 ng/mL (0.000-0.055) 0.052 ng/mL (0.000-0.055) GM-Jup-V-Type Natriuretic Peptide 9867 pg/mL (0-449) Total Protein 6.6 g/dL (6.4-8.2) Albumin 1.8 g/dL (3.4-5.0) Albumin/Globulin Ratio 0.4 (1.0-1.7) Digoxin Level 0.9 ng/mL (0.9-2.0) Digoxin Last Dose Date Unk Digoxin Last Dose Time Unk Laboratory Tests Test 06/23/18 03:20 06/23/18 07:10 White Blood Count 16.8 x10^3/uL (4.0-11.0) Red Blood Count 2.86 x10^6/uL (4.30-5.70) Hemoglobin 7.4 g/dL (13.0-17.5) Hematocrit 23.8 % (39.0-53.0) Mean Corpuscular Volume 83 fL (79-100) Mean Corpuscular Hemoglobin 26 pg (25-35) Mean Corpuscular Hemoglobin Concent 31 g/dL (31-37) Red Cell Distribution Width 17.1 % (11.5-14.5) Platelet Count 262 x10^3/uL (140-400) Neutrophils (%) (Auto) 79 % (31-73) Lymphocytes (%) (Auto) 6 % (24-48) Monocytes (%) (Auto) 11 % (0-9) Eosinophils (%) (Auto) 4 % (0-3) Basophils (%) (Auto) 1 % (0-3) Neutrophils # (Auto) 13.2 x10^3uL (1.8-7.7) Lymphocytes # (Auto) 0.9 x10^3/uL (1.0-4.8) Monocytes # (Auto) 1.8 x10^3/uL (0.0-1.1) Eosinophils # (Auto) 0.7 x10^3/uL (0.0-0.7) Basophils # (Auto) 0.1 x10^3/uL (0.0-0.2) Segmented Neutrophils % 86 % (35-66) Lymphocytes % 4 % (24-48) Monocytes % 8 % (0-10) Eosinophils % 2 % (0-5) Platelet Estimate Adequate (ADEQUATE) Hypochromasia Mod Anisocytosis Slight Sodium Level 140 mmol/L (136-145) Potassium Level 4.1 mmol/L (3.5-5.1) Chloride Level 102 mmol/L (98-107) Carbon Dioxide Level 31 mmol/L (21-32) Anion Gap 7 (6-14) Blood Urea Nitrogen 14 mg/dL (8-26) Creatinine 1.1 mg/dL (0.7-1.3) Estimated GFR (Cockcroft-Gault) 65.1 BUN/Creatinine Ratio 13 (6-20) Glucose Level 136 mg/dL (70-99) Lactic Acid Level 0.8 mmol/L (0.4-2.0) 0.7 mmol/L (0.4-2.0) Calcium Level 8.8 mg/dL (8.5-10.1) Magnesium Level 1.9 mg/dL (1.8-2.4) Total Bilirubin 0.5 mg/dL (0.2-1.0) Aspartate Amino Transf (AST/SGOT) 30 U/L (15-37) Alanine Aminotransferase (ALT/SGPT) 26 U/L (16-63) Alkaline Phosphatase 74 U/L (46-116) Creatine Kinase 31 U/L (39-308) Creatine Kinase MB (Mass) 1.4 ng/mL (0.0-3.6) Creatine Kinase MB Relative Index % (0-4) Troponin I Quantitative 0.060 ng/mL (0.000-0.055) 0.052 ng/mL (0.000-0.055) DQ-Ibn-G-Type Natriuretic Peptide 9867 pg/mL (0-449) Total Protein 6.6 g/dL (6.4-8.2) Albumin 1.8 g/dL (3.4-5.0) Albumin/Globulin Ratio 0.4 (1.0-1.7) Digoxin Level 0.9 ng/mL (0.9-2.0) Digoxin Last Dose Date Unk Digoxin Last Dose Time Unk Images Images Examination: ABDOMEN LTD History: Gallbladder distention Comparison/Correlation: 05/27/2018 Limited abdominal ultrasound exam Findings: Limited right upper quadrant ultrasound exam was performed. Fatty infiltration of the liver is present. Portal venous flow is normal. Inferior cava is unremarkable. Gallbladder wall thickness of 0.3 cm noted. No cholelithiasis. No findings of cholecystitis. There is sludge in the gallbladder. Common bile that measures up to 0.6 cm diameter. Right kidney measures 11.7 cm x 5.2 cm 4.5 cm. Small right renal superior pole cyst is present measuring 3.3 cm diameter. Adjacent smaller cystic structure measuring up to 1.5 cm diameter is also noted. This alternatively may represent a single septated cyst.. Right kidney is slightly echogenic echotexture. Renal cortical atrophy noted. No right hydronephrosis. No right upper quadrant ascites. Fatty infiltration of the proximal pancreas is present. Impression: Sludge in the gallbladder. No cholelithiasis or cholecystitis. No biliary dilatation. Electronically signed by: Tyrone Reynoso MD (06/19/2018 8:07 AM) [facility] [place] CT CHEST WITH CONTRAST, PULMONARY ANGIOGRAM History: Shortness of breath. Comparison: None. Technique: Helical CT of the chest was performed after the administration of 100 cc of Omnipaque 350 intravenous contrast according to PE protocol. Axial and coronal reconstructions were obtained. 3-D MIP images were constructed to better evaluate the pulmonary arteries. Findings: Pulmonary arteries are adequately opacified. There is no evidence of pulmonary embolism. The pulmonary trunk is dilated measuring up to 4.3 cm suggesting pulmonary arterial hypertension. No thoracic aortic dissection. Atherosclerotic aortic arch. Median sternotomy wires and changes of CABG and aortic valve prosthesis. There is right PICC tip in distal SVC. There is coronary artery disease. Cardiac size normal, no pericardial effusion. Mild mediastinal adenopathy is likely reactive, unchanged. There are moderate bilateral pleural effusions. The central airways are patent. There are moderate consolidations in the right upper lobe. Patchy groundglass opacities are seen in the left upper lobe. There is compressive atelectasis in the bilateral lower lobes adjacent to the effusions, mild bilaterally. There are patchy groundglass opacities in the aerated right lower lobe. Small nodular and groundglass opacities are seen in the medial right middle lobe. Pulmonary findings are similar to prior study. Hydropic gallbladder contains hyperdense material, sludge versus vicarious excretion of contrast. Fatty replacement of the pancreas. Small bilateral upper pole renal cysts. Degenerative spondylosis of the thoracic spine. IMPRESSION: 1. There is no CT evidence of pulmonary embolus. 2. Dilated pulmonary trunk suggests pulmonary arterial hypertension. 3. Moderate bilateral pleural effusions. 4. Unchanged right upper lobe bronchopneumonia. Scattered groundglass opacities in the lungs are similar to prior study and are likely infectious/inflammatory. 5. Mild mediastinal adenopathy may be reactive. Electronically signed by: Gene Hernandes MD (06/23/2018 5:37 AM) [facility] VTE Prophylaxis Ordered VTE Prophylaxis Devices: Yes VTE Pharmacological Prophylaxi: Yes Assessment/Plan Assessment/Plan IMPRESSION Pneumonia with right perihilar infiltrate. failed outpt trial Leukocytosis Chronic [place] with pyuria MRSA bacteremia with sepsis from 05/18. was D/c on iv Dapto till 07/02 Acute on chronic CHF MRSA and Enterobacter ( R Augmentin/cefuroxime) infection PSA ( R quinolones & I imipenem) infection Bioprosthetic aortic valve A- fib Anticoagulation on warfarin Hydropic gallbladder contains hyperdense material, sludge versus vicarious excretion of contrast. Fatty replacement of the pancreas. Small bilateral upper pole renal cysts. Sludge in the gallbladder. No cholelithiasis or cholecystitis. No biliary dilatation. Diabetes Type II Seizure disorder, on Keppra Noncompliance New anemia with possible GI bleed s/p blood transfusion elevated troponin i Dilated pulmonary trunk suggests pulmonary arterial hypertension. Plan: Antibiotics per ID, Continue vancomycin and Zosyn ICU BED blood cult pulm consult ID consult cardiology consult 111 min cc time KEV HATCH MD June 23, 2018 09:56
[2018-06-23 11:00] VITALS: BP 117/50
--- NOTE | 2018-06-23 11:07 | PDOC ---
Provider Note Provider Note [id number] acute on chronic resp fail ?sepsis pneumonia ae of copd a sys chf anemia see order FLOR SANCHEZ MD June 23, 2018 11:07
--- NOTE | 2018-06-23 11:27 | CONS ---
DATE OF CONSULTATION: 06/23/2018 REASON FOR CONSULTATION: I was asked to see this 78-year-old gentleman for [id number] respiratory failure. HISTORY OF PRESENT ILLNESS: The patient has a history of [id number] smoking, stopped smoking many years ago. He has been on oxygen at 3 liters per minute via nasal cannula. He was admitted to [facility] earlier this month for a pneumonia. [facility] was [facility] a [facility]. Earlier today, he was found to have hypoxemia and was also hypotensive. He was brought to the Emergency Room for further evaluation. The patient received a liter of normal saline, also dexamethasone was given. He was starting Zosyn and vancomycin. ID is consulted. He is on oxygen. He is sleepy, but wakes up and answers some of my questions. He does have shortness of breath. He denies pain. He has cough. PAST MEDICAL HISTORY: CVA, coronary artery disease status post coronary artery bypass graft 5 years ago at [facility]. He had CVA after CABG. Since then he has been bedridden. 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 Cardiomyopathy, bronchiolitis obliterans many years ago, was given prednisone then, CHF, atrial fibrillation, hypertension, MRSA, seizure, status post appendectomy, status post below-knee amputation. ALLERGIES: FENTANYL. MEDICATIONS: Currently, he is on DuoNeb and morphine. SOCIAL HISTORY: History of [id number] smoking, stopped smoking many years ago. FAMILY HISTORY: Hypertension. REVIEW OF SYSTEMS: As mentioned as above. His and daughter are at the bedside and they answered many of my questions regarding his medical history. Other systems are otherwise negative. PHYSICAL EXAMINATION: GENERAL: An overweight gentleman. VITAL SIGNS: His O2 saturation on 3 liters of oxygen is 98%, respiratory rate 24, heart rate 76, blood pressure 119/53, temperature 98.2. HEENT: Normocephalic, atraumatic. Pupils equal, round, reactive to light. He appears pale. Nose is clear. He has poor dentition. NECK: There is no lymphadenopathy or thyromegaly. CARDIOVASCULAR: Irregular rhythm. PMI is not displaced. CHEST: Inspection is normal. LUNGS: There are bibasilar crackles, dullness at the bases, end expiratory wheezing. ABDOMEN: Soft and obese. Bowel sounds are good. There is no mass. EXTREMITIES: There is edema, status post right below-knee amputation. SKIN: Chronic changes. Pale. NEUROLOGIC: He is sleepy, but wakes up and answers all my questions. LABORATORY DATA: I reviewed the following lab data: WBC 16.8, hemoglobin 7.4, platelets 262. Sodium 140, potassium 4.1, chloride 102, CO2 is 31, glucose 136, BUN 14, creatinine 1.1. BNP 9867. Lactic acid 0.7. Troponin 0.052. CT of the chest did not show pulmonary embolism, showed bilateral small effusion, right more than left; right upper lobe infiltrate with scattered ground-glass opacities similar to prior study, mild mediastinal lymphadenopathy. IMPRESSION: 1. Emlog-du-vzhramt hypoxemic respiratory failure secondary to acute exacerbation of chronic obstructive pulmonary disease, pneumonia, acute systolic congestive heart failure versus others. 2. Abnormal CT of the chest as mentioned as above. 3. Pneumonia, query sepsis. 4. Acute systolic congestive heart failure. 5. Acute exacerbation of chronic obstructive pulmonary disease. 6. Leukocytosis. 7. Anemia. 8. History of cerebrovascular accident. 9. Lower extremity edema, cannot rule out deep vein thrombosis. 10. Atrial fibrillation/atrial flutter. 11. Bioprosthetic aortic valve. PLAN AND RECOMMENDATIONS: 1. Monitor very closely in ICU. 2. Titrate FiO2 to keep O2 saturation 92%. 3. ABG. 4. Lower extremity venous Doppler. 5. ID is consulted. 6. Start Solu-Medrol 40 mg IV every 12 hours. 7. Start bronchodilator, Atrovent only. He has history of atrial fibrillation/atrial flutter with rapid ventricular response. 8. Check PT/INR. Thank you very much for allowing me to participate in care of this very nice gentleman. The findings and recommendations were discussed with the patient's daughter and . They understood and agreed to proceed with the plan. FLOR SANCHEZ M.D. : ARIES/arely JOB#: [id number] / [id number]
--- NOTE | 2018-06-23 11:54 | PDOC ---
Infectious Disease Note Subjective Subjective Known to our service. See consult from 06/17 and last progress note from 06/19. Discharge yesterday on Dapto for MRSA bacteremia till 07/02 and Cephalexin for E. coli UTI through 06/24. Sent to ER early this morning from SNF for hypoxia and SOA. Received Duoneb treatment, dexamethasone and one time dose vanc and Zosyn. Says still feeling little SOA O2 2L Denies cough/CP/F/C/S/aches Some sinus congestion Denies N/V/D Vital Sign Vital Signs Vital Signs Date Time Temp Pulse Resp B/P (MAP) Pulse Ox O2 Delivery O2 Flow Rate FiO2 06/23/18 11:00 72 14 117/50 (72) 98 Nasal Cannula 3.0 06/23/18 07:30 98.3 98.3 Physical Exam PHYSICAL EXAM GENERAL: Propped up in bed,, alert, relaxed appearance HENT: ISMAEL, Oral cavity/pharynx pink, dry. No thrush LUNGS: Clear anteriorly, nonlabored CV: S1 S2, regular ABD: Obese, soft, NT EXT: 2+ edema left leg. Right BKA stump incision healing well, steri strips in place. 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 RUE-PICC (POA) clean Labs Lab Laboratory Tests Test 06/23/18 03:20 06/23/18 07:10 White Blood Count 16.8 x10^3/uL (4.0-11.0) Red Blood Count 2.86 x10^6/uL (4.30-5.70) Hemoglobin 7.4 g/dL (13.0-17.5) Hematocrit 23.8 % (39.0-53.0) Mean Corpuscular Volume 83 fL (79-100) Mean Corpuscular Hemoglobin 26 pg (25-35) Mean Corpuscular Hemoglobin Concent 31 g/dL (31-37) Red Cell Distribution Width 17.1 % (11.5-14.5) Platelet Count 262 x10^3/uL (140-400) Neutrophils (%) (Auto) 79 % (31-73) Lymphocytes (%) (Auto) 6 % (24-48) Monocytes (%) (Auto) 11 % (0-9) Eosinophils (%) (Auto) 4 % (0-3) Basophils (%) (Auto) 1 % (0-3) Neutrophils # (Auto) 13.2 x10^3uL (1.8-7.7) Lymphocytes # (Auto) 0.9 x10^3/uL (1.0-4.8) Monocytes # (Auto) 1.8 x10^3/uL (0.0-1.1) Eosinophils # (Auto) 0.7 x10^3/uL (0.0-0.7) Basophils # (Auto) 0.1 x10^3/uL (0.0-0.2) Segmented Neutrophils % 86 % (35-66) Lymphocytes % 4 % (24-48) Monocytes % 8 % (0-10) Eosinophils % 2 % (0-5) Platelet Estimate Adequate (ADEQUATE) Hypochromasia Mod Anisocytosis Slight Sodium Level 140 mmol/L (136-145) Potassium Level 4.1 mmol/L (3.5-5.1) Chloride Level 102 mmol/L (98-107) Carbon Dioxide Level 31 mmol/L (21-32) Anion Gap 7 (6-14) Blood Urea Nitrogen 14 mg/dL (8-26) Creatinine 1.1 mg/dL (0.7-1.3) Estimated GFR (Cockcroft-Gault) 65.1 BUN/Creatinine Ratio 13 (6-20) Glucose Level 136 mg/dL (70-99) Lactic Acid Level 0.8 mmol/L (0.4-2.0) 0.7 mmol/L (0.4-2.0) Calcium Level 8.8 mg/dL (8.5-10.1) Magnesium Level 1.9 mg/dL (1.8-2.4) Total Bilirubin 0.5 mg/dL (0.2-1.0) Aspartate Amino Transf (AST/SGOT) 30 U/L (15-37) Alanine Aminotransferase (ALT/SGPT) 26 U/L (16-63) Alkaline Phosphatase 74 U/L (46-116) Creatine Kinase 31 U/L (39-308) Creatine Kinase MB (Mass) 1.4 ng/mL (0.0-3.6) Creatine Kinase MB Relative Index % (0-4) Troponin I Quantitative 0.060 ng/mL (0.000-0.055) 0.052 ng/mL (0.000-0.055) OZ-Any-D-Type Natriuretic Peptide 9867 pg/mL (0-449) Total Protein 6.6 g/dL (6.4-8.2) Albumin 1.8 g/dL (3.4-5.0) Albumin/Globulin Ratio 0.4 (1.0-1.7) Digoxin Level 0.9 ng/mL (0.9-2.0) Digoxin Last Dose Date Unk Digoxin Last Dose Time Unk IMPRESSION: 1. There is no CT evidence of pulmonary embolus. 2. Dilated pulmonary trunk suggests pulmonary arterial hypertension. 3. Moderate bilateral pleural effusions. 4. Unchanged right upper lobe bronchopneumonia. Scattered groundglass opacities in the lungs are similar to prior study and are likely infectious/inflammatory. 5. Mild mediastinal adenopathy may be reactive. Objective Assessment Persistent right perihilar infiltrate and pleural effusions Leukocytosis, had been on prednisone at [place] h/o E. coli UTI, discharged on Keflex through 06/24 h/o MRSA bacteremia with sepsis from 05/18. Discharged on Dapto till 07/02. CPK 31 -CRYSTAL done no vegetations 05/21; BC from 05/20 & onward were neg Acute on chronic CHF h/o MRSA and Enterobacter ( R Augmentin/cefuroxime) infection h/o PSA ( R quinolones & I imipenem) infection Bioprosthetic aortic valve A- fib, anticoagulation on warfarin Diabetes Type II Seizure disorder, on Keppra H/o cholecystitis - U/S 06/18 Sludge in the gallbladder. No cholelithiasis or cholecystitis. No biliary dilatation Plan Plan of Care Continue vancomycin and Zosyn Monitor WBC/temp and renal function closely Procalcitonin f/u cultures PICC maintenance care Leg elevation Needs to remain in isolation for MRSA D/w nursing D/w Thank you Patient seen, examined, I agree with above assessment and plan as laid out by DEPARTMENT EDITOR. labs and micro reviewed D/W GIO ARECHIGA APRN June 23, 2018 11:54 NESHA CATES MD June 23, 2018 14:11
[2018-06-23] MEDS: IPRATROPIUM BROMIDE 0.5 MG/2.5 ML NEBU. NEB SCH ×3 (12:08→19:36)
[2018-06-23] MEDS: VANCOMYCIN PER PHARMACY MC PRN (12:09)
--- NOTE | 2018-06-23 12:16 | NUR ---
Pharmacy Vancomycin Dosing Note S:Consulted to monitor and dose vancomycin started 06/23/18. O:VICKI BRAUN is a 78 year old M with Sepsis UTI . Height: 5 feet, 9 inches Weight: 113.828546 kg Imperial Body Weight: 70.70 Adjusted Body Weight: 87.62 Dosing Weight: Actual Other Antibiotics: ZOSYN LABS: Last BUN: 14 Last Creatinine: 1.1 Creatinine Clearance: 71 mL/min Last WBC: 16.8 Last Procalcitonin: Tmax (past 24 hours): 98.2 Microbiology: I/O: Drug Levels: Last level: on at Last dose given at Vancomycin Dosing: Loading Dose: 2000 mg x1 Dosing Weight: Actual Target Trough: 15-20 A: Based on: ht, wt and renal fxn, last admission P: 1. Begin Vancomycin 1500 mg IV q24h 2. Follow up Trough level on 06/25/18 at 0730 3. Pharmacy will continue to monitor, follow and adjust therapy as needed. GAIL GEORGES, [facility], 06/23/18 [id number]
[2018-06-23] MEDS: PIPERACILLIN/TAZOBACTAM 3.375 GM in IV NORMAL SALINE 50ML 50 ML IV SCH ×2 (12:24→17:19)
[2018-06-23 15:00] VITALS: BP 137/49
--- NOTE | 2018-06-23 16:31 | RAD ---
Bilateral lower extremity venous doppler ultrasound History: Bilateral lower extremity edema and hypoxemia Comparison: None Findings: Multiple grayscale, color, and duplex spectral analysis sonographic images were acquired of the bilateral lower extremity veins to evaluate for the presence of DVT. There is normal phasicity. Normal compression, color-flow, and augmentation is demonstrated from the bilateral common femoral through the distal superficial femoral veins and left popliteal vein. There is normal color flow of the proximal greater saphenous and profunda femoris veins. There is normal color flow of segments of the left calf veins. 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 Impression: 1. There is no evidence of deep venous thrombosis. Electronically signed by: Jean-Pierre Griffiths MD (06/23/2018 4:28 PM) [facility]
[2018-06-23] MEDS: ASPIRIN ENTERIC COATED 81 MG TABLET.DR. PO SCH (18:47)
[2018-06-23] MEDS: POTASSIUM CHLORIDE 20 MEQ TABLET.ER. PO SCH (18:47)
[2018-06-23] MEDS: ZONISAMIDE 100 MG CAPSULE. PO SCH (18:47)
[2018-06-23 19:00] VITALS: BP 135/90
[2018-06-23] MEDS ORDERED: WARFARIN 4 MG TABLET. PO SCH (19:30)
--- NOTE | 2018-06-23 19:40 | NUR ---
Pharmacy Warfarin Dosing Note S:Pharmacy consulted to assist with anticoagulation therapy started with target INR: 2 -3 O:VICKI BRAUN is a 78 year old M with Atrial Fibrillation LABS: Last INR: 2.4 Last HGB: 7.4 Last HCT: 23.8 Last PLT: 262 Last dose of 4 mg given on at Previous Regimen: Vitamin K given: N Drug Interaction Changes: Ongoing Drug Interactions: Patient was discharged on 06/22 and readmitted on 06-23. INR on 06/22 was 2.4 and dose ordered was 4mg. Dose was NOT administered here at [facility] for 06/22. A:INR of 2.4 is within desired range. Target range for this patient is: 2 -3 P: Warfarin dose: 4 mg Today at 1944. Bridge Therapy: None Next INR due tomorrow. Pharmacy anticoagulation service will continue to follow. George Foley [facility], 06/23/181940
[2018-06-23] MEDS: ATORVASTATIN CALCIUM 40 MG TABLET. PO SCH (21:19)
[2018-06-23] MEDS: risperiDONE 1 MG TABLET. PO SCH (21:19)
[2018-06-23] MEDS: METOPROLOL TART IMMED RELEASE 50 MG TABLET. PO SCH (21:19)
[2018-06-23] MEDS: FAMOTIDINE 20 MG/2 ML VIAL IVP SCH (21:19)
[2018-06-23] MEDS: levETIRAcetam 250 MG TABLET PO SCH (21:20)
[2018-06-23] MEDS: hydrALAZINE 10 MG TABLET PO SCH (21:20)
[2018-06-23 23:00] VITALS: BP 91/53
[2018-06-24] VITALS (7 sets, daily range): BP systolic 101–163; BP diastolic 40–67
[2018-06-24] MEDS: PIPERACILLIN/TAZOBACTAM 3.375 GM in IV NORMAL SALINE 50ML 50 ML IV SCH ×5 (00:28→23:45)
[2018-06-24 05:46] LABS: BASO % 0 % (0-3); EOS % 0 % (0-3); HEMATOCRIT 23.6 % (39.0-53.0); HEMOGLOBIN 7.4 g/dL (13.0-17.5); LYMPH # 0.4 x10^3/uL (1.0-4.8); LYMPH % 4 % (24-48); MEAN CORPUSCULAR HEMOGLOBIN 26 pg (25-35); MEAN CORPUSCULAR HGB CONC 32 g/dL (31-37); MEAN CORPUSCULAR VOLUME 83 fL (79-100); MONO # 0.9 x10^3/uL (0.0-1.1); MONO % 10 % (0-9); NEUT # 7.8 x10^3uL (1.8-7.7); NEUT % 86 % (31-73); PLATELET COUNT 243 x10^3/uL (140-400); RED BLOOD COUNT 2.83 x10^6/uL (4.30-5.70); RED CELL DISTRIBUTION WIDTH 16.8 % (11.5-14.5); WHITE BLOOD COUNT 9.1 x10^3/uL (4.0-11.0)
[2018-06-24 06:02] LABS: ALBUMIN 1.8 g/dL (3.4-5.0); ALBUMIN/GLOBULIN RATIO 0.4 (1.0-1.7); CALCIUM 8.3 mg/dL (8.5-10.1); GFR 72.6; POTASSIUM 3.5 mmol/L (3.5-5.1); TOTAL BILIRUBIN 0.5 mg/dL (0.2-1.0); TOTAL PROTEIN 6.8 g/dL (6.4-8.2)
--- NOTE | 2018-06-24 06:57 | PDOC ---
PULMONARY PROGRESS NOTES Subjective has sob, has occ cough, no pain, had 8 loose stool over night on 02, Vitals Vital Signs Date Time Temp Pulse Resp B/P (MAP) Pulse Ox O2 Delivery O2 Flow Rate FiO2 06/24/18 03:00 98.2 67 20 153/67 (95) 98 Nasal Cannula 3.0 98.2 Comments ros as mentioned as above other sys otherwise neg ROS: No Nausea HEENT: Other (nc at perrl nose clear shallow oropharynx. neck no lad no thyromegaly) Lungs: Wheezing, Crackles, Other (dull at bases) Cardiovascular: Other (irreg irreg) Abdomen: Soft, Non-tender, Other Neuro Exam: Alert Extremities: Other (edema) Skin: Warm Labs Laboratory Tests Test 06/23/18 03:20 06/23/18 07:10 06/23/18 10:15 06/23/18 12:26 White Blood Count 16.8 x10^3/uL (4.0-11.0) Red Blood Count 2.86 x10^6/uL (4.30-5.70) Hemoglobin 7.4 g/dL (13.0-17.5) Hematocrit 23.8 % (39.0-53.0) Mean Corpuscular Volume 83 fL (79-100) Mean Corpuscular Hemoglobin 26 pg (25-35) Mean Corpuscular Hemoglobin Concent 31 g/dL (31-37) Red Cell Distribution Width 17.1 % (11.5-14.5) Platelet Count 262 x10^3/uL (140-400) Neutrophils (%) (Auto) 79 % (31-73) Lymphocytes (%) (Auto) 6 % (24-48) Monocytes (%) (Auto) 11 % (0-9) Eosinophils (%) (Auto) 4 % (0-3) Basophils (%) (Auto) 1 % (0-3) Neutrophils # (Auto) 13.2 x10^3uL (1.8-7.7) Lymphocytes # (Auto) 0.9 x10^3/uL (1.0-4.8) Monocytes # (Auto) 1.8 x10^3/uL (0.0-1.1) Eosinophils # (Auto) 0.7 x10^3/uL (0.0-0.7) Basophils # (Auto) 0.1 x10^3/uL (0.0-0.2) Segmented Neutrophils % 86 % (35-66) Lymphocytes % 4 % (24-48) Monocytes % 8 % (0-10) Eosinophils % 2 % (0-5) Platelet Estimate Adequate (ADEQUATE) Hypochromasia Mod Anisocytosis Slight Prothrombin Time 26.0 SEC (11.7-14.0) Prothromb Time International Ratio 2.4 (0.8-1.1) Sodium Level 140 mmol/L (136-145) Potassium Level 4.1 mmol/L (3.5-5.1) Chloride Level 102 mmol/L (98-107) Carbon Dioxide Level 31 mmol/L (21-32) Anion Gap 7 (6-14) Blood Urea Nitrogen 14 mg/dL (8-26) Creatinine 1.1 mg/dL (0.7-1.3) Estimated GFR (Cockcroft-Gault) 65.1 BUN/Creatinine Ratio 13 (6-20) Glucose Level 136 mg/dL (70-99) Lactic Acid Level 0.8 mmol/L (0.4-2.0) 0.7 mmol/L (0.4-2.0) Calcium Level 8.8 mg/dL (8.5-10.1) Magnesium Level 1.9 mg/dL (1.8-2.4) Total Bilirubin 0.5 mg/dL (0.2-1.0) Aspartate Amino Transf (AST/SGOT) 30 U/L (15-37) Alanine Aminotransferase (ALT/SGPT) 26 U/L (16-63) Alkaline Phosphatase 74 U/L (46-116) Creatine Kinase 31 U/L (39-308) Creatine Kinase MB (Mass) 1.4 ng/mL (0.0-3.6) Creatine Kinase MB Relative Index % (0-4) Troponin I Quantitative 0.060 ng/mL (0.000-0.055) 0.052 ng/mL (0.000-0.055) 0.048 ng/mL (0.000-0.055) YJ-Tkt-G-Type Natriuretic Peptide 9867 pg/mL (0-449) Total Protein 6.6 g/dL (6.4-8.2) Albumin 1.8 g/dL (3.4-5.0) Albumin/Globulin Ratio 0.4 (1.0-1.7) Digoxin Level 0.9 ng/mL (0.9-2.0) Digoxin Last Dose Date Unk Digoxin Last Dose Time Unk Procalcitonin 0.40 ng/mL (0.00-0.10) Glucose (Fingerstick) 212 mg/dL (70-99) Test 06/23/18 17:16 06/24/18 05:15 Glucose (Fingerstick) 227 mg/dL (70-99) White Blood Count 9.1 x10^3/uL (4.0-11.0) Red Blood Count 2.83 x10^6/uL (4.30-5.70) Hemoglobin 7.4 g/dL (13.0-17.5) Hematocrit 23.6 % (39.0-53.0) Mean Corpuscular Volume 83 fL (79-100) Mean Corpuscular Hemoglobin 26 pg (25-35) Mean Corpuscular Hemoglobin Concent 32 g/dL (31-37) Red Cell Distribution Width 16.8 % (11.5-14.5) Platelet Count 243 x10^3/uL (140-400) Neutrophils (%) (Auto) 86 % (31-73) Lymphocytes (%) (Auto) 4 % (24-48) Monocytes (%) (Auto) 10 % (0-9) Eosinophils (%) (Auto) 0 % (0-3) Basophils (%) (Auto) 0 % (0-3) Neutrophils # (Auto) 7.8 x10^3uL (1.8-7.7) Lymphocytes # (Auto) 0.4 x10^3/uL (1.0-4.8) Monocytes # (Auto) 0.9 x10^3/uL (0.0-1.1) Eosinophils # (Auto) 0.0 x10^3/uL (0.0-0.7) Basophils # (Auto) 0.0 x10^3/uL (0.0-0.2) Sodium Level 139 mmol/L (136-145) Potassium Level 3.5 mmol/L (3.5-5.1) Chloride Level 102 mmol/L (98-107) Carbon Dioxide Level 26 mmol/L (21-32) Anion Gap 11 (6-14) Blood Urea Nitrogen 19 mg/dL (8-26) Creatinine 1.0 mg/dL (0.7-1.3) Estimated GFR (Cockcroft-Gault) 72.6 BUN/Creatinine Ratio 19 (6-20) Glucose Level 223 mg/dL (70-99) Calcium Level 8.3 mg/dL (8.5-10.1) Total Bilirubin 0.5 mg/dL (0.2-1.0) Aspartate Amino Transf (AST/SGOT) 34 U/L (15-37) Alanine Aminotransferase (ALT/SGPT) 30 U/L (16-63) Alkaline Phosphatase 79 U/L (46-116) Total Protein 6.8 g/dL (6.4-8.2) Albumin 1.8 g/dL (3.4-5.0) Albumin/Globulin Ratio 0.4 (1.0-1.7) Laboratory Tests Test 06/23/18 07:10 06/23/18 10:15 06/23/18 12:26 06/23/18 17:16 Lactic Acid Level 0.7 mmol/L (0.4-2.0) Troponin I Quantitative 0.052 ng/mL (0.000-0.055) 0.048 ng/mL (0.000-0.055) Procalcitonin 0.40 ng/mL (0.00-0.10) Glucose (Fingerstick) 212 mg/dL (70-99) 227 mg/dL (70-99) Test 06/24/18 05:15 White Blood Count 9.1 x10^3/uL (4.0-11.0) Red Blood Count 2.83 x10^6/uL (4.30-5.70) Hemoglobin 7.4 g/dL (13.0-17.5) Hematocrit 23.6 % (39.0-53.0) Mean Corpuscular Volume 83 fL (79-100) Mean Corpuscular Hemoglobin 26 pg (25-35) Mean Corpuscular Hemoglobin Concent 32 g/dL (31-37) Red Cell Distribution Width 16.8 % (11.5-14.5) Platelet Count 243 x10^3/uL (140-400) Neutrophils (%) (Auto) 86 % (31-73) Lymphocytes (%) (Auto) 4 % (24-48) Monocytes (%) (Auto) 10 % (0-9) Eosinophils (%) (Auto) 0 % (0-3) Basophils (%) (Auto) 0 % (0-3) Neutrophils # (Auto) 7.8 x10^3uL (1.8-7.7) Lymphocytes # (Auto) 0.4 x10^3/uL (1.0-4.8) Monocytes # (Auto) 0.9 x10^3/uL (0.0-1.1) Eosinophils # (Auto) 0.0 x10^3/uL (0.0-0.7) Basophils # (Auto) 0.0 x10^3/uL (0.0-0.2) Sodium Level 139 mmol/L (136-145) Potassium Level 3.5 mmol/L (3.5-5.1) Chloride Level 102 mmol/L (98-107) Carbon Dioxide Level 26 mmol/L (21-32) Anion Gap 11 (6-14) Blood Urea Nitrogen 19 mg/dL (8-26) Creatinine 1.0 mg/dL (0.7-1.3) Estimated GFR (Cockcroft-Gault) 72.6 BUN/Creatinine Ratio 19 (6-20) Glucose Level 223 mg/dL (70-99) Calcium Level 8.3 mg/dL (8.5-10.1) Total Bilirubin 0.5 mg/dL (0.2-1.0) Aspartate Amino Transf (AST/SGOT) 34 U/L (15-37) Alanine Aminotransferase (ALT/SGPT) 30 U/L (16-63) Alkaline Phosphatase 79 U/L (46-116) Total Protein 6.8 g/dL (6.4-8.2) Albumin 1.8 g/dL (3.4-5.0) Albumin/Globulin Ratio 0.4 (1.0-1.7) Medications Active Scripts Medications Dose Route/Sig Max Daily Dose Days Date Category Dose Instructions Daptomycin 350 Mg Vial 350 Mg IV DAILY 10 06/22/18 Rx Cephalexin 250 Mg Capsule 500 Mg PO QID 3 06/22/18 Rx Percocet 5-325 Mg Tablet (Oxycodone/Acetaminophen) 1 Each Tablet 1 Tab PO PRN Q4HRS PRN 6 06/22/18 Rx Digoxin 125 Mcg Tablet 125 Mcg PO DAILY 05/15/16 Rx Furosemide 40 Mg Tablet 40 Mg PO DAILY 05/15/16 Rx Zonisamide 100 Mg Capsule 400 Mg PO DAILY 05/11/16 Reported Multivitamins (Multivitamin) 1 Each Tablet 1 Tab PO DAILY 05/11/16 Reported Levetiracetam 250 Mg Tablet 1,250 Mg PO BID 05/11/16 Reported Atorvastatin Calcium 80 Mg Tablet 1 Tab PO DAILY 05/11/16 Reported Acetaminophen 500 Mg Tablet 1 Tab PO PRN Q6HRS PRN 05/11/16 Reported Metoprolol Tartrate 50 Mg Tablet 50 Mg PO BID 02/24/16 Rx [Warfarin Sodium] 1 EACH Each 1 Each MC PRN DAILY PRN 02/24/16 Rx Lisinopril 20 Mg Tablet 20 Mg PO DAILY 02/24/16 Rx Duoneb 0.5-3(2.5) Mg/3 Ml (Albuterol/Ipratropium) 3 Ml Ampul.neb 3 Ml NEB Q4HRS W/A 30 02/24/16 Rx Hydralazine Hcl 10 Mg Tablet 10 Mg PO TID 02/24/16 Rx Albuterol Sulfate Hfa Inhaler (Albuterol Sulfate) 8.5 Gm Hfa.aer.ad 2 Puff IH PRN Q6HRS PRN 02/20/13 Reported Aspirin Ec (Aspirin) 325 Mg Tablet.dr 81 Mg PO DAILY 02/20/13 Reported Warfarin Sodium 5 Mg Tablet 6 Mg PO DAILY 02/19/13 Reported Warfarin Sodium 2.5 Mg Tablet 2.5 Mg PO 3X/WEEK 02/19/13 Reported monday,monday, Gabapentin (Gabapentin) 300 Mg Capsule 300 Mg PO DAILY 02/19/13 Reported Risperidone 1 Mg Tablet 1 Mg PO HS 02/19/13 Reported Novolog (Insulin Aspart) 100 Unit/1 Ml Vial 10 Unit SQ DAILYAC 02/19/13 Reported Potassium 99 Mg Tablet 20 Meq PO DAILY 02/19/13 Reported Comments reviewed cxr 06/24, b lat infil, worse rul, l linula ll, cardiomegaly reviewed cta 06/23 1. There is no CT evidence of pulmonary embolus. 2. Dilated pulmonary trunk suggests pulmonary arterial hypertension. 3. Moderate bilateral pleural effusions. 4. Unchanged right upper lobe bronchopneumonia. Scattered groundglass opacities in the lungs are similar to prior study and are likely infectious/inflammatory. 5. Mild mediastinal adenopathy may be reactive. Impression . IMPRESSION: 1. Usdks-kj-haslrlw hypoxemic respiratory failure secondary to acute exacerbation of chronic obstructive pulmonary disease, pneumonia, acute systolic congestive heart failure versus others. 2. Abnormal CT of the chest 3. Pneumonia, query sepsis. 4. Acute systolic congestive heart failure. 5. Acute exacerbation of chronic obstructive pulmonary disease. 6. Leukocytosis. 7. Anemia. 8. History of cerebrovascular accident. 9. Lower extremity edema, no dvt 10. Atrial fibrillation/atrial flutter on coumadi. 11. Bioprosthetic aortic valve. 12. diarrhea, ? c diff Plan . PLAN AND RECOMMENDATIONS: 1. Monitor very closely in ICU. 2. Titrate FiO2 to keep O2 saturation 92%. 3. stool for c diff 4. Lower extremity venous Doppler, neg. 5. abx per ID 6. cont Solu-Medrol to 40 mg IV bid 7. bronchodilator, Atrovent only. He has history of atrial fibrillation/atrial flutter with rapid ventricular response. add ICS 8. monitor PT/INR. 9. fu cxr 10. lasix, monitor k, cr fabrice w FLOR Mendiola MD June 24, 2018 06:57
[2018-06-24] MEDS: BUDESONIDE 0.5 MG/2 ML NEBU. NEB SCH ×2 (08:01→19:56)
[2018-06-24] MEDS: IPRATROPIUM BROMIDE 0.5 MG/2.5 ML NEBU. NEB SCH ×4 (08:01→19:56)
--- NOTE | 2018-06-24 08:27 | RAD ---
EXAM: CHEST 1 VIEW History: Pneumonia COMPARISON: 06/19/2018 TECHNIQUE: Single portable radiograph of the chest FINDINGS: Low lung volumes and technique accentuates heart size and pulmonary vascularity. Prosthetic heart valve is identified. Right-sided PICC line is unchanged. Diffuse prominent appearing bilateral interstitial lung markings in the perihilar region likely interstitial infiltrates or edema similar to prior exam. IMPRESSION: Diffuse prominent appearing bilateral perihilar interstitial lung markings likely congestive changes or interstitial infiltrates similar to prior exam. Electronically signed by: Parrish Cueto MD (06/24/2018 8:24 AM) [facility]
[2018-06-24] MEDS: GABAPENTIN 300 MG CAPSULE. PO SCH (08:53)
[2018-06-24] MEDS: levETIRAcetam 250 MG TABLET PO SCH ×2 (08:53→23:15)
[2018-06-24] MEDS: POTASSIUM CHLORIDE 20 MEQ TABLET.ER. PO SCH (08:53)
[2018-06-24] MEDS: VANCOMYCIN 1.5 GM in IV NORMAL SALINE 500ML BAG 500 ML IV SCH (08:53)
[2018-06-24] MEDS: DIGOXIN 125 MCG TABLET. PO SCH (08:54)
[2018-06-24] MEDS: ASPIRIN ENTERIC COATED 81 MG TABLET.DR. PO SCH (08:54)
[2018-06-24] MEDS: MULTIVITAMIN with MINERAL TABLET. PO SCH (08:54)
[2018-06-24] MEDS: hydrALAZINE 10 MG TABLET PO SCH ×3 (08:54→23:15)
[2018-06-24] MEDS: ZONISAMIDE 100 MG CAPSULE. PO SCH (08:54)
--- NOTE | 2018-06-24 08:54 | PDOC ---
Infectious Disease Note Subjective Subjective Says breathing is better Comfortable, denies pain Remains afebrile without chills/aches/sweats ROS ROS per HPI Vital Sign Vital Signs Vital Signs Date Time Temp Pulse Resp B/P (MAP) Pulse Ox O2 Delivery O2 Flow Rate FiO2 06/24/18 08:01 100 Nasal Cannula 3.0 06/24/18 07:00 98.4 69 15 163/57 (92) 98.4 Physical Exam PHYSICAL EXAM GENERAL: Propped up in bed,, alert, eating HENT: ISMAEL, Oral cavity/pharynx pink, dry. No thrush LUNGS: Clear anteriorly, nonlabored CV: S1 S2, regular ABD: Obese, soft, NT : [place] EXT: 2+ edema left leg. Right BKA stump incision healing well, steri strips in place. 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 RUE-PICC (POA) clean Labs Lab Laboratory Tests Test 06/23/18 10:15 06/23/18 12:26 06/23/18 17:16 06/24/18 05:15 Troponin I Quantitative 0.048 ng/mL (0.000-0.055) Procalcitonin 0.40 ng/mL (0.00-0.10) Glucose (Fingerstick) 212 mg/dL (70-99) 227 mg/dL (70-99) White Blood Count 9.1 x10^3/uL (4.0-11.0) Red Blood Count 2.83 x10^6/uL (4.30-5.70) Hemoglobin 7.4 g/dL (13.0-17.5) Hematocrit 23.6 % (39.0-53.0) Mean Corpuscular Volume 83 fL (79-100) Mean Corpuscular Hemoglobin 26 pg (25-35) Mean Corpuscular Hemoglobin Concent 32 g/dL (31-37) Red Cell Distribution Width 16.8 % (11.5-14.5) Platelet Count 243 x10^3/uL (140-400) Neutrophils (%) (Auto) 86 % (31-73) Lymphocytes (%) (Auto) 4 % (24-48) Monocytes (%) (Auto) 10 % (0-9) Eosinophils (%) (Auto) 0 % (0-3) Basophils (%) (Auto) 0 % (0-3) Neutrophils # (Auto) 7.8 x10^3uL (1.8-7.7) Lymphocytes # (Auto) 0.4 x10^3/uL (1.0-4.8) Monocytes # (Auto) 0.9 x10^3/uL (0.0-1.1) Eosinophils # (Auto) 0.0 x10^3/uL (0.0-0.7) Basophils # (Auto) 0.0 x10^3/uL (0.0-0.2) Sodium Level 139 mmol/L (136-145) Potassium Level 3.5 mmol/L (3.5-5.1) Chloride Level 102 mmol/L (98-107) Carbon Dioxide Level 26 mmol/L (21-32) Anion Gap 11 (6-14) Blood Urea Nitrogen 19 mg/dL (8-26) Creatinine 1.0 mg/dL (0.7-1.3) Estimated GFR (Cockcroft-Gault) 72.6 BUN/Creatinine Ratio 19 (6-20) Glucose Level 223 mg/dL (70-99) Calcium Level 8.3 mg/dL (8.5-10.1) Total Bilirubin 0.5 mg/dL (0.2-1.0) Aspartate Amino Transf (AST/SGOT) 34 U/L (15-37) Alanine Aminotransferase (ALT/SGPT) 30 U/L (16-63) Alkaline Phosphatase 79 U/L (46-116) Total Protein 6.8 g/dL (6.4-8.2) Albumin 1.8 g/dL (3.4-5.0) Albumin/Globulin Ratio 0.4 (1.0-1.7) Test 06/24/18 08:08 Glucose (Fingerstick) 206 mg/dL (70-99) CXR, 06/24 Diffuse prominent appearing bilateral perihilar interstitial lung markings likely congestive changes or interstitial infiltrates similar to prior exam. Micro Microbiology 06/23/18 Blood Culture - Preliminary, Resulted NO GROWTH AFTER 1 DAY Objective Assessment Persistent right perihilar infiltrate and pleural effusions Leukocytosis, had been on prednisone at [place] h/o E. coli UTI, discharged on Keflex through 06/24 h/o MRSA bacteremia with sepsis from 05/18. Discharged on Dapto till 07/02. CPK 31 -CRYSTAL done no vegetations 05/21; BC from 05/20 & onward were neg Acute on chronic CHF h/o MRSA and Enterobacter ( R Augmentin/cefuroxime) infection h/o PSA ( R quinolones & I imipenem) infection Bioprosthetic aortic valve A- fib, anticoagulation on warfarin Diabetes Type II Seizure disorder, on Keppra H/o cholecystitis - U/S 06/18 Sludge in the gallbladder. No cholelithiasis or cholecystitis. No biliary dilatation Plan Plan of Care Continue vancomycin and Zosyn Monitor WBC/temp and renal function closely Procalcitonin 0.40 fBC neg so far PICC maintenance care Leg elevation Needs to remain in isolation for MRSA Patient seen, examined, I agree with above A/P. D/W RESEARCH LAB ASSISTANT D/W at bedside GIO GASPAR APRN June 24, 2018 08:54 NESHA CATES MD June 24, 2018 14:40
[2018-06-24] MEDS: METOPROLOL TART IMMED RELEASE 50 MG TABLET. PO SCH ×2 (08:55→23:15)
[2018-06-24] MEDS: FAMOTIDINE 20 MG/2 ML VIAL IVP SCH ×2 (08:57→21:06)
--- NOTE | 2018-06-24 08:57 | PDOC ---
PROGRESS NOTES History of Present Illness History of Present Illness VTE Prophylaxis Ordered VTE Prophylaxis Devices: Yes VTE Pharmacological Prophylaxi: Yes Assessment/Plan Assessment/Plan IMPRESSION Pneumonia with right perihilar infiltrate. failed outpt trial Leukocytosis Chronic Crawley with pyuria MRSA bacteremia with sepsis from 05/18. was D/c on iv Dapto till 07/02 Acute on chronic CHF MRSA and Enterobacter ( R Augmentin/cefuroxime) infection PSA ( R quinolones & I imipenem) infection Bioprosthetic aortic valve A- fib Anticoagulation on warfarin Hydropic gallbladder contains hyperdense material, sludge versus vicarious excretion of contrast. Fatty replacement of the pancreas. Small bilateral upper pole renal cysts. Sludge in the gallbladder. No cholelithiasis or cholecystitis. No biliary dilatation. Diabetes Type II Seizure disorder, on Keppra Noncompliance New anemia with possible GI bleed s/p blood transfusion elevated troponin i Dilated pulmonary trunk suggests pulmonary arterial hypertension. encephalopathy seeing bugs on wall 06/24 Plan: Antibiotics per ID, Continue vancomycin and Zosyn ICU BED blood cult pulm consult ID consult cardiology consult contact isolation TSH 41 min cc time Vitals Vitals Vital Signs Date Time Temp Pulse Resp B/P (MAP) Pulse Ox O2 Delivery O2 Flow Rate FiO2 06/24/18 08:01 100 Nasal Cannula 3.0 06/24/18 07:00 98.4 69 15 163/57 (92) 98.4 Physical Exam Physical Exam GENERAL: Propped up in bed,, alert, eating HENT: [place], Oral cavity/pharynx pink, dry. No thrush LUNGS: Clear anteriorly, nonlabored CV: S1 S2, regular ABD: Obese, soft, NT : Crawley EXT: 2+ edema left leg. Right BKA stump incision healing well, steri strips in place. 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6 % (39.0-53.0) Mean Corpuscular Volume 83 fL (79-100) Mean Corpuscular Hemoglobin 26 pg (25-35) Mean Corpuscular Hemoglobin Concent 32 g/dL (31-37) Red Cell Distribution Width 16.8 % (11.5-14.5) Platelet Count 243 x10^3/uL (140-400) Neutrophils (%) (Auto) 86 % (31-73) Lymphocytes (%) (Auto) 4 % (24-48) Monocytes (%) (Auto) 10 % (0-9) Eosinophils (%) (Auto) 0 % (0-3) Basophils (%) (Auto) 0 % (0-3) Neutrophils # (Auto) 7.8 x10^3uL (1.8-7.7) Lymphocytes # (Auto) 0.4 x10^3/uL (1.0-4.8) Monocytes # (Auto) 0.9 x10^3/uL (0.0-1.1) Eosinophils # (Auto) 0.0 x10^3/uL (0.0-0.7) Basophils # (Auto) 0.0 x10^3/uL (0.0-0.2) Sodium Level 139 mmol/L (136-145) Potassium Level 3.5 mmol/L (3.5-5.1) Chloride Level 102 mmol/L (98-107) Carbon Dioxide Level 26 mmol/L (21-32) Anion Gap 11 (6-14) Blood Urea Nitrogen 19 mg/dL (8-26) Creatinine 1.0 mg/dL (0.7-1.3) Estimated GFR (Cockcroft-Gault) 72.6 BUN/Creatinine Ratio 19 (6-20) Glucose Level 223 mg/dL (70-99) Calcium Level 8.3 mg/dL (8.5-10.1) Total Bilirubin 0.5 mg/dL (0.2-1.0) Aspartate Amino Transf (AST/SGOT) 34 U/L (15-37) Alanine Aminotransferase (ALT/SGPT) 30 U/L (16-63) Alkaline Phosphatase 79 U/L (46-116) Total Protein 6.8 g/dL (6.4-8.2) Albumin 1.8 g/dL (3.4-5.0) Albumin/Globulin Ratio 0.4 (1.0-1.7) Test 06/24/18 08:08 Glucose (Fingerstick) 206 mg/dL (70-99) Comment Review of Relevant I have reviewed the following items navi (where applicable) has been applied. Labs Laboratory Tests Test 06/23/18 03:20 06/23/18 07:10 06/23/18 10:15 06/23/18 12:26 White Blood Count 16.8 x10^3/uL (4.0-11.0) Red Blood Count 2.86 x10^6/uL (4.30-5.70) Hemoglobin 7.4 g/dL (13.0-17.5) Hematocrit 23.8 % (39.0-53.0) Mean Corpuscular Volume 83 fL (79-100) Mean Corpuscular Hemoglobin 26 pg (25-35) Mean Corpuscular Hemoglobin Concent 31 g/dL (31-37) Red Cell Distribution Width 17.1 % (11.5-14.5) Platelet Count 262 x10^3/uL (140-400) Neutrophils (%) (Auto) 79 % (31-73) Lymphocytes (%) (Auto) 6 % (24-48) Monocytes (%) (Auto) 11 % (0-9) Eosinophils (%) (Auto) 4 % (0-3) Basophils (%) (Auto) 1 % (0-3) Neutrophils # (Auto) 13.2 x10^3uL (1.8-7.7) Lymphocytes # (Auto) 0.9 x10^3/uL (1.0-4.8) Monocytes # (Auto) 1.8 x10^3/uL (0.0-1.1) Eosinophils # (Auto) 0.7 x10^3/uL (0.0-0.7) Basophils # (Auto) 0.1 x10^3/uL (0.0-0.2) Segmented Neutrophils % 86 % (35-66) Lymphocytes % 4 % (24-48) Monocytes % 8 % (0-10) Eosinophils % 2 % (0-5) Platelet Estimate Adequate (ADEQUATE) Hypochromasia Mod Anisocytosis Slight Prothrombin Time 26.0 SEC (11.7-14.0) Prothromb Time International Ratio 2.4 (0.8-1.1) Sodium Level 140 mmol/L (136-145) Potassium Level 4.1 mmol/L (3.5-5.1) Chloride Level 102 mmol/L (98-107) Carbon Dioxide Level 31 mmol/L (21-32) Anion Gap 7 (6-14) Blood Urea Nitrogen 14 mg/dL (8-26) Creatinine 1.1 mg/dL (0.7-1.3) Estimated GFR (Cockcroft-Gault) 65.1 BUN/Creatinine Ratio 13 (6-20) Glucose Level 136 mg/dL (70-99) Lactic Acid Level 0.8 mmol/L (0.4-2.0) 0.7 mmol/L (0.4-2.0) Calcium Level 8.8 mg/dL (8.5-10.1) Magnesium Level 1.9 mg/dL (1.8-2.4) Total Bilirubin 0.5 mg/dL (0.2-1.0) Aspartate Amino Transf (AST/SGOT) 30 U/L (15-37) Alanine Aminotransferase (ALT/SGPT) 26 U/L (16-63) Alkaline Phosphatase 74 U/L (46-116) Creatine Kinase 31 U/L (39-308) Creatine Kinase MB (Mass) 1.4 ng/mL (0.0-3.6) Creatine Kinase MB Relative Index % (0-4) Troponin I Quantitative 0.060 ng/mL (0.000-0.055) 0.052 ng/mL (0.000-0.055) 0.048 ng/mL (0.000-0.055) ZH-Cun-E-Type Natriuretic Peptide 9867 pg/mL (0-449) Total Protein 6.6 g/dL (6.4-8.2) Albumin 1.8 g/dL (3.4-5.0) Albumin/Globulin Ratio 0.4 (1.0-1.7) Digoxin Level 0.9 ng/mL (0.9-2.0) Digoxin Last Dose Date Unk Digoxin Last Dose Time Unk Procalcitonin 0.40 ng/mL (0.00-0.10) Glucose (Fingerstick) 212 mg/dL (70-99) Test 06/23/18 17:16 06/24/18 05:15 06/24/18 08:08 Glucose (Fingerstick) 227 mg/dL (70-99) 206 mg/dL (70-99) White Blood Count 9.1 x10^3/uL (4.0-11.0) Red Blood Count 2.83 x10^6/uL (4.30-5.70) Hemoglobin 7.4 g/dL (13.0-17.5) Hematocrit 23.6 % (39.0-53.0) Mean Corpuscular Volume 83 fL (79-100) Mean Corpuscular Hemoglobin 26 pg (25-35) Mean Corpuscular Hemoglobin Concent 32 g/dL (31-37) Red Cell Distribution Width 16.8 % (11.5-14.5) Platelet Count 243 x10^3/uL (140-400) Neutrophils (%) (Auto) 86 % (31-73) Lymphocytes (%) (Auto) 4 % (24-48) Monocytes (%) (Auto) 10 % (0-9) Eosinophils (%) (Auto) 0 % (0-3) Basophils (%) (Auto) 0 % (0-3) Neutrophils # (Auto) 7.8 x10^3uL (1.8-7.7) Lymphocytes # (Auto) 0.4 x10^3/uL (1.0-4.8) Monocytes # (Auto) 0.9 x10^3/uL (0.0-1.1) Eosinophils # (Auto) 0.0 x10^3/uL (0.0-0.7) Basophils # (Auto) 0.0 x10^3/uL (0.0-0.2) Sodium Level 139 mmol/L (136-145) Potassium Level 3.5 mmol/L (3.5-5.1) Chloride Level 102 mmol/L (98-107) Carbon Dioxide Level 26 mmol/L (21-32) Anion Gap 11 (6-14) Blood Urea Nitrogen 19 mg/dL (8-26) Creatinine 1.0 mg/dL (0.7-1.3) Estimated GFR (Cockcroft-Gault) 72.6 BUN/Creatinine Ratio 19 (6-20) Glucose Level 223 mg/dL (70-99) Calcium Level 8.3 mg/dL (8.5-10.1) Total Bilirubin 0.5 mg/dL (0.2-1.0) Aspartate Amino Transf (AST/SGOT) 34 U/L (15-37) Alanine Aminotransferase (ALT/SGPT) 30 U/L (16-63) Alkaline Phosphatase 79 U/L (46-116) Total Protein 6.8 g/dL (6.4-8.2) Albumin 1.8 g/dL (3.4-5.0) Albumin/Globulin Ratio 0.4 (1.0-1.7) Laboratory Tests Test 06/23/18 10:15 06/23/18 12:26 06/23/18 17:16 06/24/18 05:15 Troponin I Quantitative 0.048 ng/mL (0.000-0.055) Procalcitonin 0.40 ng/mL (0.00-0.10) Glucose (Fingerstick) 212 mg/dL (70-99) 227 mg/dL (70-99) White Blood Count 9.1 x10^3/uL (4.0-11.0) Red Blood Count 2.83 x10^6/uL (4.30-5.70) Hemoglobin 7.4 g/dL (13.0-17.5) Hematocrit 23.6 % (39.0-53.0) Mean Corpuscular Volume 83 fL (79-100) Mean Corpuscular Hemoglobin 26 pg (25-35) Mean Corpuscular Hemoglobin Concent 32 g/dL (31-37) Red Cell Distribution Width 16.8 % (11.5-14.5) Platelet Count 243 x10^3/uL (140-400) Neutrophils (%) (Auto) 86 % (31-73) Lymphocytes (%) (Auto) 4 % (24-48) Monocytes (%) (Auto) 10 % (0-9) Eosinophils (%) (Auto) 0 % (0-3) Basophils (%) (Auto) 0 % (0-3) Neutrophils # (Auto) 7.8 x10^3uL (1.8-7.7) Lymphocytes # (Auto) 0.4 x10^3/uL (1.0-4.8) Monocytes # (Auto) 0.9 x10^3/uL (0.0-1.1) Eosinophils # (Auto) 0.0 x10^3/uL (0.0-0.7) Basophils # (Auto) 0.0 x10^3/uL (0.0-0.2) Sodium Level 139 mmol/L (136-145) Potassium Level 3.5 mmol/L (3.5-5.1) Chloride Level 102 mmol/L (98-107) Carbon Dioxide Level 26 mmol/L (21-32) Anion Gap 11 (6-14) Blood Urea Nitrogen 19 mg/dL (8-26) Creatinine 1.0 mg/dL (0.7-1.3) Estimated GFR (Cockcroft-Gault) 72.6 BUN/Creatinine Ratio 19 (6-20) Glucose Level 223 mg/dL (70-99) Calcium Level 8.3 mg/dL (8.5-10.1) Total Bilirubin 0.5 mg/dL (0.2-1.0) Aspartate Amino Transf (AST/SGOT) 34 U/L (15-37) Alanine Aminotransferase (ALT/SGPT) 30 U/L (16-63) Alkaline Phosphatase 79 U/L (46-116) Total Protein 6.8 g/dL (6.4-8.2) Albumin 1.8 g/dL (3.4-5.0) Albumin/Globulin Ratio 0.4 (1.0-1.7) Test 06/24/18 08:08 Glucose (Fingerstick) 206 mg/dL (70-99) Microbiology 06/23/18 Blood Culture - Preliminary, Resulted NO GROWTH AFTER 1 DAY Medications Current Medications Albuterol/ Ipratropium (Duoneb) 3 ml 1X ONCE NEB Last administered on 06/23/18at 04:06; Start 06/23/18 at 03:30; Stop 06/23/18 at 03:33; Status DC Dexamethasone Sodium Phosphate (Decadron) 10 mg 1X ONCE IV Last administered on 06/23/18at 04:33; Start 06/23/18 at 03:30; Stop 06/23/18 at 03:33; Status DC Aspirin (Alexander Aspirin) 325 mg 1X ONCE PO Last administered on 06/23/18at 04:33; Start 06/23/18 at 04:15; Stop 06/23/18 at 04:16; Status DC Sodium Chloride 1,000 ml @ 1,000 mls/hr 1X ONCE IV ; Start 06/23/18 at 04:15; Stop 06/23/18 at 04:33; Status DC Ondansetron HCl (Zofran) 4 mg PRN Q8HRS PRN IV NAUSEA/VOMITING; Start 06/23/18 at 04:15; Stop 06/24/18 at 04:14; Status DC Acetaminophen (Tylenol) 650 mg PRN Q4HRS PRN PO FEVER; Start 06/23/18 at 04:15; Stop 06/24/18 at 04:14; Status DC Albuterol/ Ipratropium (Duoneb) 3 ml RTQID NEB Last administered on 06/23/18at 08:01; Start 06/23/18 at 08:00; Stop 06/23/18 at 10:57; Status DC Insulin Human Lispro (HumaLOG) 0-5 UNITS TIDWMEALS SQ Last administered on 06/23/18at 17:18; Start 06/23/18 at 08:00 Dextrose (Dextrose 50%-Water Syringe) 12.5 gm PRN Q15MIN PRN IV SEE COMMENTS; Start 06/23/18 at 04:15 Morphine Sulfate (Morphine Sulfate) 4 mg PRN Q4HRS PRN IV MODERATE PAIN 4-6; Start 06/23/18 at 04:15 Iohexol (Omnipaque 350 Mg/ml) 100 ml 1X ONCE IV Last administered on 06/23/18at 04:58; Start 06/23/18 at 05:00; Stop 06/23/18 at 05:01; Status DC Info (CONTRAST GIVEN -- Rx MONITORING) 1 each PRN DAILY PRN MC SEE COMMENTS; Start 06/23/18 at 05:00; Stop 06/25/18 at 04:59 Piperacillin Sod/ Tazobactam Sod 4.5 gm/Sodium Chloride 100 ml @ 200 mls/hr 1X ONCE IV Last administered on 06/23/18at 06:12; Start 06/23/18 at 06:00; Stop 06/23/18 at 06:29; Status DC Vancomycin HCl 2 gm/Sodium Chloride 500 ml @ 250 mls/hr 1X ONCE IV Last administered on 06/23/18at 08:02; Start 06/23/18 at 06:00; Stop 06/23/18 at 07:59; Status DC Ipratropium [place] (Atrovent) 0.5 mg RTQID NEB Last administered on 06/24/18at 08:01; Start 06/23/18 at 12:00 Famotidine (Pepcid Vial) 20 mg BID IVP Last administered on 06/23/18 21:19; Start 06/23/18 at 21:00 Vancomycin HCl (Vanco Per Pharmacy) 1 each PRN DAILY PRN MC SEE COMMENTS Last administered on 06/23/18at 12:09; Start 06/23/18 at 11:45 Piperacillin Sod/ Tazobactam Sod 3.375 gm/Sodium Chloride 50 ml @ 100 mls/hr Q6HRS IV Last administered on 06/24/18at 05:25; Start 06/23/18 at 12:00 Vancomycin HCl 1.5 gm/Sodium Chloride 500 ml @ 250 mls/hr Q24H IV ; Start 06/24/18 at 08:00 Vancomycin HCl (Vancomycin Trough Level) 1 each 1X ONCE MC ; Start 06/25/18 at 07:30; Stop 06/25/18 at 07:31 Aspirin (Ecotrin) 81 mg DAILYWBKFT PO Last administered on 06/23/18at 18:47; Start 06/23/18 at 18:15 Digoxin (Lanoxin) 125 mcg DAILY PO ; Start 06/24/18 at 09:00 Furosemide (Lasix) 40 mg DAILY PO ; Start 06/24/18 at 09:00 Gabapentin (Neurontin) 300 mg DAILY PO ; Start 06/24/18 at 09:00 Lisinopril (Prinivil) 20 mg DAILY PO ; Start 06/24/18 at 09:00 Metoprolol Tartrate (Lopressor) 50 mg BID PO Last administered on 06/23/18at 21:19; Start 06/23/18 at 21:00 Atorvastatin Calcium (Lipitor) 80 mg QHS PO Last administered on 06/23/18 21:19; Start 06/23/18 at 21:00 Hydralazine HCl (Apresoline) 10 mg TID PO Last administered on 06/23/18 21:20; Start 06/23/18 at 21:00 Levetiracetam (Keppra) 1,250 mg BID PO Last administered on 06/23/18 21:20; Start 06/23/18 at 21:00 Multivitamins (Thera M Plus) 1 tab DAILY PO ; Start 06/24/18 at 09:00 Potassium Chloride (Klor-Con) 20 meq DAILYWBKFT PO Last administered on 06/23/18 18:47; Start 06/23/18 at 18:30 Risperidone (RisperDAL) 1 mg QHS PO Last administered on 06/23/18 21:19; Start 06/23/18 at 21:00 Zonisamide (Zonegran) 400 mg DAILY PO Last administered on 06/23/18at 18:47; Start 06/23/18 at 18:00 Warfarin Sodium (Coumadin Per Pharmacy) 1 each PRN DAILY PRN MC SEE COMMENTS Last administered on 06/23/18at 19:40; Start 06/23/18 at 18:30 Warfarin Sodium (Coumadin) 4 mg DAILY16 PO Last administered on 06/23/18 21:19; Start 06/23/18 at 19:30 Budesonide (Pulmicort) 0.5 mg RTBID NEB Last administered on 06/24/18at 08:01; Start 06/24/18 at 08:00 Active Scripts Active Daptomycin 350 Mg Vial 350 Mg IV DAILY 10 Days Cephalexin 250 Mg Capsule 500 Mg PO QID 3 Days Percocet 5-325 Mg Tablet (Oxycodone/Acetaminophen) 1 Each Tablet 1 Tab PO PRN Q4HRS PRN 6 Days Digoxin 125 Mcg Tablet 125 Mcg PO DAILY Furosemide 40 Mg Tablet 40 Mg PO DAILY Metoprolol Tartrate 50 Mg Tablet 50 Mg PO BID [Warfarin Sodium] 1 EACH Each 1 Each MC PRN DAILY PRN Lisinopril 20 Mg Tablet 20 Mg PO DAILY Duoneb 0.5-3(2.5) Mg/3 Ml (Albuterol/Ipratropium) 3 Ml Ampul.neb 3 Ml NEB Q4HRS W/A 30 Days Hydralazine Hcl 10 Mg Tablet 10 Mg PO TID Reported Zonisamide 100 Mg Capsule 400 Mg PO DAILY Multivitamins (Multivitamin) 1 Each Tablet 1 Tab PO DAILY Levetiracetam 250 Mg Tablet 1,250 Mg PO BID Atorvastatin Calcium 80 Mg Tablet 1 Tab PO DAILY Acetaminophen 500 Mg Tablet 1 Tab PO PRN Q6HRS PRN Albuterol Sulfate Hfa Inhaler (Albuterol Sulfate) 8.5 Gm Hfa.aer.ad 2 Puff IH PRN Q6HRS PRN Aspirin Ec (Aspirin) 325 Mg Tablet.dr 81 Mg PO DAILY Warfarin Sodium 5 Mg Tablet 6 Mg PO DAILY Warfarin Sodium 2.5 Mg Tablet 2.5 Mg PO 3X/WEEK monday,monday, Gabapentin (Gabapentin) 300 Mg Capsule 300 Mg PO DAILY Risperidone 1 Mg Tablet 1 Mg PO HS Novolog (Insulin Aspart) 100 Unit/1 Ml Vial 10 Unit SQ DAILYAC Potassium 99 Mg Tablet 20 Meq PO DAILY Vitals/I & O Vital Sign - Last 24 Hours 06/23/18 06/23/18 06/23/18 06/23/18 11:00 12:08 15:00 15:31 Temp 98.2 98.2 Pulse 72 69 Resp 14 15 B/P (MAP) 117/50 (72) 137/49 (78) Pulse Ox 98 98 100 O2 Delivery Nasal Cannula Nasal Cannula Nasal Cannula Nasal Cannula O2 Flow Rate 3.0 2.0 3.0 2.0 06/23/18 06/23/18 06/23/18 06/23/18 19:00 19:36 20:30 21:19 Temp 98.5 98.5 Pulse 68 68 Resp 22 B/P (MAP) 135/90 (105) 143/46 Pulse Ox 98 100 O2 Delivery Nasal Cannula Nasal Cannula Nasal Cannula O2 Flow Rate 3.0 2.0 3.0 06/23/18 06/23/18 06/24/18 06/24/18 21:20 23:00 03:00 07:00 Temp 98.1 98.2 98.4 98.1 98.2 98.4 Pulse 91 67 67 69 Resp 20 20 15 B/P (MAP) 143/46 91/53 (66) 153/67 (95) 163/57 (92) Pulse Ox 98 98 100 O2 Delivery Nasal Cannula Nasal Cannula Nasal Cannula O2 Flow Rate 3.0 3.0 2.0 06/24/18 08:01 Pulse Ox 100 O2 Delivery Nasal Cannula O2 Flow Rate 3.0 Intake and Output 06/23/18 06/23/18 06/24/18 14:59 22:59 06:59 Intake Total 650 ml 1000 ml 850 ml Output Total 1125 ml Balance 650 ml 1000 ml -275 ml KEV HATCH MD June 24, 2018 08:57
[2018-06-24] MEDS ORDERED: LISINOPRIL 20 MG TABLET PO SCH (09:00)
[2018-06-24] MEDS ORDERED: FUROSEMIDE 40 MG TABLET. PO SCH (09:00)
--- NOTE | 2018-06-24 09:02 | PDOC2 ---
CONSULT Date of Consult Date of Consult DATE: 06/24/18 TIME: 09:02 Reason for Consult Reason for Consult: Elevated troponin level Referring Physician Referring Physician: Dr. Gonzales Identification/Chief Complaint Chief Complaint Dyspnea Source Source: Chart review, Patient History of Present Illness Reason for Visit: 78-year-old male was recently discharged to halfway facility from [facility] 06/22/18 after treatment for pneumonia and sepsis presented with shortness of breath and was found to be hypoxic. He was diagnosed with acute on chronic resp iratory failure secondary to pneumonia and admitted for further management. He denied any chest pain, palpitations or syncope. Past Medical History Cardiovascular: AFIB, HTN, CO Pulmonary: Asthma, Bronchitis, COPD, Pneumonia, Other CENTRAL NERVOUS SYSTEM: CVA, Periperal neuropathy GI: Other Heme/Onc: No pertinent hx Hepatobiliary: No pertinent hx Psych: Depression Musculoskeletal: Osteoarthritis Rheumatologic: No pertinent hx Infectious disease: No pertinent hx Renal/: Other Endocrine: Diabetes Past Surgical History Past Surgical History: Pacemaker, Appendectomy, CABG, Other Family History Family History: Coronary Artery Disease, High Cholestrol, Hypertension Social History No ALCOHOL: none Drugs: None Lives: with Family Current Medications Current Medications Current Medications Albuterol/ Ipratropium (Duoneb) 3 ml 1X ONCE NEB Last administered on 06/23/18at 04:06; Start 06/23/18 at 03:30; Stop 06/23/18 at 03:33; Status DC Dexamethasone Sodium Phosphate (Decadron) 10 mg 1X ONCE IV Last administered on 06/23/18at 04:33; Start 06/23/18 at 03:30; Stop 06/23/18 at 03:33; Status DC Aspirin (Alexander Aspirin) 325 mg 1X ONCE PO Last administered on 06/23/18at 0 4:33; Start 06/23/18 at 04:15; Stop 06/23/18 at 04:16; Status DC Sodium Chloride 1,000 ml @ 1,000 mls/hr 1X ONCE IV ; Start 06/23/18 at 04:15; Stop 06/23/18 at 04:33; Status DC Ondansetron HCl (Zofran) 4 mg PRN Q8HRS PRN IV NAUSEA/VOMITING; Start 06/23/18 at 04:15; Stop 06/24/18 at 04:14; Status DC Acetaminophen (Tylenol) 650 mg PRN Q4HRS PRN PO FEVER; Start 06/23/18 at 04:15; Stop 06/24/18 at 04:14; Status DC Albuterol/ Ipratropium (Duoneb) 3 ml RTQID NEB Last administered on 06/23/18at 08:01; Start 06/23/18 at 08:00; Stop 06/23/18 at 10:57; Status DC Insulin Human Lispro (HumaLOG) 0-5 UNITS TIDWMEALS SQ Last administered on 06/23/18at 17:18; Start 06/23/18 at 08:00 Dextrose (Dextrose 50%-Water Syringe) 12.5 gm PRN Q15MIN PRN IV SEE COMMENTS; Start 06/23/18 at 04:15 Morphine Sulfate (Morphine Sulfate) 4 mg PRN Q4HRS PRN IV MODERATE PAIN 4-6; Start 06/23/18 at 04:15 Iohexol (Omnipaque 350 Mg/ml) 100 ml 1X ONCE IV Last administered on 06/23/18at 04:58; Start 06/23/18 at 05:00; Stop 06/23/18 at 05:01; Status DC Info (CONTRAST GIVEN -- Rx MONITORING) 1 each PRN DAILY PRN MC SEE COMMENTS; Start 06/23/18 at 05:00; Stop 06/25/18 at 04:59 Piperacillin Sod/ Tazobactam Sod 4.5 gm/Sodium Chloride 100 ml @ 200 mls/hr 1X ONCE IV Last administered on 06/23/18at 06:12; Start 06/23/18 at 06:00; Stop 06/23/18 at 06:29; Status DC Vancomycin HCl 2 gm/Sodium Chloride 500 ml @ 250 mls/hr 1X ONCE IV Last administered on 06/23/18at 08:02; Start 06/23/18 at 06:00; Stop 06/23/18 at 07:59; Status DC Ipratropium [place] (Atrovent) 0.5 mg RTQID NEB Last administered on 06/24/18at 08:01; Start 06/23/18 at 12:00 Famotidine (Pepcid Vial) 20 mg BID IVP Last administered on 06/23/18at 21:19; Start 06/23/18 at 21:00 Vancomycin HCl (Vanco Per Pharmacy) 1 each PRN DAILY PRN MC SEE COMMENTS Last administered on 06/23/18at 12:09; Start 06/23/18 at 11:45 Piperacillin Sod/ Tazobactam Sod 3.375 gm/Sodium Chloride 50 ml @ 100 mls/hr Q6HRS IV Last administered on 06/24/18at 05:25; Start 06/23/18 at 12:00 Vancomycin HCl 1.5 gm/Sodium Chloride 500 ml @ 250 mls/hr Q24H IV ; Start 06/24/18 at 08:00 Vancomycin HCl (Vancomycin Trough Level) 1 each 1X ONCE MC ; Start 06/25/18 at 07:30; Stop 06/25/18 at 07:31 Aspirin (Ecotrin) 81 mg DAILYWBKFT PO Last administered on 06/23/18 18:47; Start 06/23/18 at 18:15 Digoxin (Lanoxin) 125 mcg DAILY PO ; Start 06/24/18 at 09:00 Furosemide (Lasix) 40 mg DAILY PO ; Start 06/24/18 at 09:00 Gabapentin (Neurontin) 300 mg DAILY PO ; Start 06/24/18 at 09:00 Lisinopril (Prinivil) 20 mg DAILY PO ; Start 06/24/18 at 09:00 Metoprolol Tartrate (Lopressor) 50 mg BID PO Last administered on 06/23/18 21:19; Start 06/23/18 at 21:00 Atorvastatin Calcium (Lipitor) 80 mg QHS PO Last administered on 06/23/18 21:19; Start 06/23/18 at 21:00 Hydralazine HCl (Apresoline) 10 mg TID PO Last administered on 06/23/18 21:20; Start 06/23/18 at 21:00 Levetiracetam (Keppra) 1,250 mg BID PO Last administered on 06/23/18 21:20; Start 06/23/18 at 21:00 Multivitamins (Thera M Plus) 1 tab DAILY PO ; Start 06/24/18 at 09:00 Potassium Chloride (Klor-Con) 20 meq DAILYWBKFT PO Last administered on 06/23/18at 18:47; Start 06/23/18 at 18:30 Risperidone (RisperDAL) 1 mg QHS PO Last administered on 5/18/19at 21:19; Start 06/23/18 at 21:00 Zonisamide (Zonegran) 400 mg DAILY PO Last administered on 06/23/18at 18:47; Start 06/23/18 at 18:00 Warfarin Sodium (Coumadin Per Pharmacy) 1 each PRN DAILY PRN MC SEE COMMENTS Last administered on 06/23/18at 19:40; Start 06/23/18 at 18:30 Warfarin Sodium (Coumadin) 4 mg DAILY16 PO Last administered on 06/23/18at 21:19; Start 06/23/18 at 19:30 Budesonide (Pulmicort) 0.5 mg RTBID NEB Last administered on 06/24/18at 08:01; Start 06/24/18 at 08:00 Active Scripts Active Daptomycin 350 Mg Vial 350 Mg IV DAILY 10 Days Cephalexin 250 Mg Capsule 500 Mg PO QID 3 Days Percocet 5-325 Mg Tablet (Oxycodone/Acetaminophen) 1 Each Tablet 1 Tab PO PRN Q4HRS PRN 6 Days Digoxin 125 Mcg Tablet 125 Mcg PO DAILY Furosemide 40 Mg Tablet 40 Mg PO DAILY Metoprolol Tartrate 50 Mg Tablet 50 Mg PO BID [Warfarin Sodium] 1 EACH Each 1 Each MC PRN DAILY PRN Lisinopril 20 Mg Tablet 20 Mg PO DAILY Duoneb 0.5-3(2.5) Mg/3 Ml (Albuterol/Ipratropium) 3 Ml Ampul.neb 3 Ml NEB Q4HRS W/A 30 Days Hydralazine Hcl 10 Mg Tablet 10 Mg PO TID Reported Zonisamide 100 Mg Capsule 400 Mg PO DAILY Multivitamins (Multivitamin) 1 Each Tablet 1 Tab PO DAILY Levetiracetam 250 Mg Tablet 1,250 Mg PO BID Atorvastatin Calcium 80 Mg Tablet 1 Tab PO DAILY Acetaminophen 500 Mg Tablet 1 Tab PO PRN Q6HRS PRN Albuterol Sulfate Hfa Inhaler (Albuterol Sulfate) 8.5 Gm Hfa.aer.ad 2 Puff IH PRN Q6HRS PRN Aspirin Ec (Aspirin) 325 Mg Tablet.dr 81 Mg PO DAILY Warfarin Sodium 5 Mg Tablet 6 Mg PO DAILY Warfarin Sodium 2.5 Mg Tablet 2.5 Mg PO 3X/WEEK monday,monday, Gabapentin (Gabapentin) 300 Mg Capsule 300 Mg PO DAILY Risperidone 1 Mg Tablet 1 Mg PO HS Novolog (Insulin Aspart) 100 Unit/1 Ml Vial 10 Unit SQ DAILYAC Potassium 99 Mg Tablet 20 Meq PO DAILY Allergies Allergies: Coded Allergies: fentanyl (Verified Allergy, Intermediate, 06/17/18) Per pt : agitation and difficulty awakening pt after fentanyl administration I S O L A T I O N *CONTACT* (Verified Allergy, Unknown, 05/23/18) mrsa ROS PSYCHOLOGICAL ROS: No: Hallucinations Eyes: No Loss of vision HEENT: No: Epistaxis Respiratory: YES: Cough, Shortness of breath; No: Hemoptysis Cardiovascular: No Chest Pain Gastrointestinal: No Vomiting, No Diarrhea Neurological: No Seizures Skin: No Rash Physical Exam General: Alert, Oriented X3 HEENT: Atraumatic Lungs: Other (bilateral basal crepts) Heart: Other (HR irregular) Abdomen: Soft, No tenderness Extremities: Other (RBKA, left toes amputation, 1-2+ edema ) Psych/Mental Status: Mood NL Vitals VITALS Vital Signs Date Time Temp Pulse Resp B/P (MAP) Pulse Ox O2 Delivery O2 Flow Rate FiO2 06/24/18 08:01 100 Nasal Cannula 3.0 06/24/18 07:00 98.4 69 15 163/57 (92) 98.4 Labs Labs Laboratory Tests Test 06/23/18 03:20 06/23/18 07:10 06/23/18 10:15 06/23/18 12:26 White Blood Count 16.8 x10^3/uL (4.0-11.0) Red Blood Count 2.86 x10^6/uL (4.30-5.70) Hemoglobin 7.4 g/dL (13.0-17.5) Hematocrit 23.8 % (39.0-53.0) Mean Corpuscular Volume 83 fL (79-100) Mean Corpuscular Hemoglobin 26 pg (25-35) Mean Corpuscular Hemoglobin Concent 31 g/dL (31-37) Red Cell Distribution Width 17.1 % (11.5-14.5) Platelet Count 262 x10^3/uL (140-400) Neutrophils (%) (Auto) 79 % (31-73) Lymphocytes (%) (Auto) 6 % (24-48) Monocytes (%) (Auto) 11 % (0-9) Eosinophils (%) (Auto) 4 % (0-3) Basophils (%) (Auto) 1 % (0-3) Neutrophils # (Auto) 13.2 x10^3uL (1.8-7.7) Lymphocytes # (Auto) 0.9 x10^3/uL (1.0-4.8) Monocytes # (Auto) 1.8 x10^3/uL (0.0-1.1) Eosinophils # (Auto) 0.7 x10^3/uL (0.0-0.7) Basophils # (Auto) 0.1 x10^3/uL (0.0-0.2) Segmented Neutrophils % 86 % (35-66) Lymphocytes % 4 % (24-48) Monocytes % 8 % (0-10) Eosinophils % 2 % (0-5) Platelet Estimate Adequate (ADEQUATE) Hypochromasia Mod Anisocytosis Slight Prothrombin Time 26.0 SEC (11.7-14.0) Prothromb Time International Ratio 2.4 (0.8-1.1) Sodium Level 140 mmol/L (136-145) Potassium Level 4.1 mmol/L (3.5-5.1) Chloride Level 102 mmol/L (98-107) Carbon Dioxide Level 31 mmol/L (21-32) Anion Gap 7 (6-14) Blood Urea Nitrogen 14 mg/dL (8-26) Creatinine 1.1 mg/dL (0.7-1.3) Estimated GFR (Cockcroft-Gault) 65.1 BUN/Creatinine Ratio 13 (6-20) Glucose Level 136 mg/dL (70-99) Lactic Acid Level 0.8 mmol/L (0.4-2.0) 0.7 mmol/L (0.4-2.0) Calcium Level 8.8 mg/dL (8.5-10.1) Magnesium Level 1.9 mg/dL (1.8-2.4) Total Bilirubin 0.5 mg/dL (0.2-1.0) Aspartate Amino Transf (AST/SGOT) 30 U/L (15-37) Alanine Aminotransferase (ALT/SGPT) 26 U/L (16-63) Alkaline Phosphatase 74 U/L (46-116) Creatine Kinase 31 U/L (39-308) Creatine Kinase MB (Mass) 1.4 ng/mL (0.0-3.6) Creatine Kinase MB Relative Index % (0-4) Troponin I Quantitative 0.060 ng/mL (0.000-0.055) 0.052 ng/mL (0.000-0.055) 0.048 ng/mL (0.000-0.055) JO-Aqm-W-Type Natriuretic Peptide 9867 pg/mL (0-449) Total Protein 6.6 g/dL (6.4-8.2) Albumin 1.8 g/dL (3.4-5.0) Albumin/Globulin Ratio 0.4 (1.0-1.7) Digoxin Level 0.9 ng/mL (0.9-2.0) Digoxin Last Dose Date Unk Digoxin Last Dose Time Unk Procalcitonin 0.40 ng/mL (0.00-0.10) Glucose (Fingerstick) 212 mg/dL (70-99) Test 06/23/18 17:16 06/24/18 05:15 06/24/18 08:08 Glucose (Fingerstick) 227 mg/dL (70-99) 206 mg/dL (70-99) White Blood Count 9.1 x10^3/uL (4.0-11.0) Red Blood Count 2.83 x10^6/uL (4.30-5.70) Hemoglobin 7.4 g/dL (13.0-17.5) Hematocrit 23.6 % (39.0-53.0) Mean Corpuscular Volume 83 fL (79-100) Mean Corpuscular Hemoglobin 26 pg (25-35) Mean Corpuscular Hemoglobin Concent 32 g/dL (31-37) Red Cell Distribution Width 16.8 % (11.5-14.5) Platelet Count 243 x10^3/uL (140-400) Neutrophils (%) (Auto) 86 % (31-73) Lymphocytes (%) (Auto) 4 % (24-48) Monocytes (%) (Auto) 10 % (0-9) Eosinophils (%) (Auto) 0 % (0-3) Basophils (%) (Auto) 0 % (0-3) Neutrophils # (Auto) 7.8 x10^3uL (1.8-7.7) Lymphocytes # (Auto) 0.4 x10^3/uL (1.0-4.8) Monocytes # (Auto) 0.9 x10^3/uL (0.0-1.1) Eosinophils # (Auto) 0.0 x10^3/uL (0.0-0.7) Basophils # (Auto) 0.0 x10^3/uL (0.0-0.2) Sodium Level 139 mmol/L (136-145) Potassium Level 3.5 mmol/L (3.5-5.1) Chloride Level 102 mmol/L (98-107) Carbon Dioxide Level 26 mmol/L (21-32) Anion Gap 11 (6-14) Blood Urea Nitrogen 19 mg/dL (8-26) Creatinine 1.0 mg/dL (0.7-1.3) Estimated GFR (Cockcroft-Gault) 72.6 BUN/Creatinine Ratio 19 (6-20) Glucose Level 223 mg/dL (70-99) Calcium Level 8.3 mg/dL (8.5-10.1) Total Bilirubin 0.5 mg/dL (0.2-1.0) Aspartate Amino Transf (AST/SGOT) 34 U/L (15-37) Alanine Aminotransferase (ALT/SGPT) 30 U/L (16-63) Alkaline Phosphatase 79 U/L (46-116) Total Protein 6.8 g/dL (6.4-8.2) Albumin 1.8 g/dL (3.4-5.0) Albumin/Globulin Ratio 0.4 (1.0-1.7) Laboratory Tests Test 06/23/18 10:15 06/23/18 12:26 06/23/18 17:16 06/24/18 05:15 Troponin I Quantitative 0.048 ng/mL (0.000-0.055) Procalcitonin 0.40 ng/mL (0.00-0.10) Glucose (Fingerstick) 212 mg/dL (70-99) 227 mg/dL (70-99) White Blood Count 9.1 x10^3/uL (4.0-11.0) Red Blood Count 2.83 x10^6/uL (4.30-5.70) Hemoglobin 7.4 g/dL (13.0-17.5) Hematocrit 23.6 % (39.0-53.0) Mean Corpuscular Volume 83 fL (79-100) Mean Corpuscular Hemoglobin 26 pg (25-35) Mean Corpuscular Hemoglobin Concent 32 g/dL (31-37) Red Cell Distribution Width 16.8 % (11.5-14.5) Platelet Count 243 x10^3/uL (140-400) Neutrophils (%) (Auto) 86 % (31-73) Lymphocytes (%) (Auto) 4 % (24-48) Monocytes (%) (Auto) 10 % (0-9) Eosinophils (%) (Auto) 0 % (0-3) Basophils (%) (Auto) 0 % (0-3) Neutrophils # (Auto) 7.8 x10^3uL (1.8-7.7) Lymphocytes # (Auto) 0.4 x10^3/uL (1.0-4.8) Monocytes # (Auto) 0.9 x10^3/uL (0.0-1.1) Eosinophils # (Auto) 0.0 x10^3/uL (0.0-0.7) Basophils # (Auto) 0.0 x10^3/uL (0.0-0.2) Sodium Level 139 mmol/L (136-145) Potassium Level 3.5 mmol/L (3.5-5.1) Chloride Level 102 mmol/L (98-107) Carbon Dioxide Level 26 mmol/L (21-32) Anion Gap 11 (6-14) Blood Urea Nitrogen 19 mg/dL (8-26) Creatinine 1.0 mg/dL (0.7-1.3) Estimated GFR (Cockcroft-Gault) 72.6 BUN/Creatinine Ratio 19 (6-20) Glucose Level 223 mg/dL (70-99) Calcium Level 8.3 mg/dL (8.5-10.1) Total Bilirubin 0.5 mg/dL (0.2-1.0) Aspartate Amino Transf (AST/SGOT) 34 U/L (15-37) Alanine Aminotransferase (ALT/SGPT) 30 U/L (16-63) Alkaline Phosphatase 79 U/L (46-116) Total Protein 6.8 g/dL (6.4-8.2) Albumin 1.8 g/dL (3.4-5.0) Albumin/Globulin Ratio 0.4 (1.0-1.7) Test 06/24/18 08:08 Glucose (Fingerstick) 206 mg/dL (70-99) Assessment/Plan Assessment/Plan 1. Acute on chronic hypoxic respiratory failure secondary to acute COPD exacerbation, pneumonia and mild acute on chronic systolic heart failure. Continue current treatment per pulmonary team. Recent CRYSTAL in May 2018 showed LVEF 35-40%. Diuresis with intravenous Lasix. 2. Coronary artery disease s/p coronary artery bypass surgery ((AGUILAR to LAD, SVG to D2, SVG to OM and SVG to PDA) in 2012, presently stable and chest pain- free. Slight troponin elevation probably demand ischemia. Continue current medical regimen. 3. Bioprosthetic AVR, stable. Recent echo showed normal function. 4. Permanent atrial fibrillation slightly elevated heart rate probably secondary to respiratory distress. He is adequately anticoagulated with warfarin. 5. Hypertension: Blood pressure slightly elevated. Increase lisinopril to 40 mg daily. 6. PAD s/p RBKA and left toe amputations, appears stable clinically 7. DM2: per IM 8. Hyperlipidemia: Continue statin therapy Thank you for your consultation ADRI SARGENT MD June 24, 2018 09:02
[2018-06-24] MEDS: INSULIN LISPRO 300 UNITS/3 ML INSULN.PEN. SQ SCH ×3 (09:08→17:47)
[2018-06-24] MEDS: MORPHINE SULFATE 4 MG/ML VIAL. IV PRN (10:43)
--- NOTE | 2018-06-24 11:11 | EKG ---
[facility] [address] [place] [address] Test Date: 2018-06-23 Test Time: 04:31:16 Pat Name: VICKI BRAUN Department: Room: 112 1 Gender: M [employer]: : 1940 Requested By: ARABELLA JORGENSEN Order Number: [id number] Reading MD: Rickie Barr Measurements Intervals [place] Rate: 103 P: NM: QRS: -37 QRSD: 132 T: 118 QT: 352 QTc: 463 Interpretive Statements ATRIAL FIB./FLUTTER WITH RAPID VENTRICULAR RESPONSE ABNORMAL LEFT AXIS DEVIATION LEFT BUNDLE BRANCH BLOCK ABNORMAL ECG Electronically Signed On 07-13-2018 12:40:01 CDT by Rickie Barr
--- NOTE | 2018-06-24 11:24 | NUR ---
pt increasingly confused this a.m. visual hallucinations, thinks he sees bugs on the [place]nandez and blankets. also thinks he is falling out of bed and is requesting to lie down on the floor to keep from falling. Neurology has been consulted.
[2018-06-24] MEDS: VANCOMYCIN PER PHARMACY MC PRN (11:27)
[2018-06-24 11:55] LABS: FREE T4 0.94 ng/dL (0.76-1.46); THYROID STIM HORMONE (TSH) 0.415 uIU/mL (0.358-3.74)
--- NOTE | 2018-06-24 12:38 | RAD ---
CT HEAD INDICATION: Encephalopathy COMPARISON: 05/22/2018 Exposure: One or more of the following individualized dose reduction techniques were utilized for this examination: 1. Automated exposure control 2. Adjustment of the mA and/or kV according to patient size 3. Use of iterative reconstruction technique TECHNIQUE: 5 mm contiguous axial images were obtained from the skull base to the vertex FINDINGS: Moderate size hypodensity identified in the right parietal lobe likely encephalomalacia from prior infarct similar to prior exam. Age-related cerebral atrophy changes. No evidence of acute intracranial hemorrhage. No extra-axial fluid collections. No mass effect or midline shift. Ventricular size is appropriate. Basal cisterns are patent. No fractures identified.Howard-white differentiation is preserved.Globes and orbits are within normal limits. Paranasal sinuses and mastoid air cells are clear. IMPRESSION: 1. No acute intracranial findings. 2. Moderate-sized hypodensity identified in the right parietal lobe likely old infarct similar to prior exam. Electronically signed by: Parrish Cueto MD (06/24/2018 12:34 PM) [facility]
[2018-06-24] MEDS: FUROSEMIDE 40 MG/4 ML VIAL. IVP SCH (12:51)
[2018-06-24 14:42] LABS: PROTHROMBIN TIME PATIENT 33.7 SEC (11.7-14.0)
--- NOTE | 2018-06-24 15:42 | PDOC ---
PROGRESS NOTES Assessment Assessment IMPRESSION: Metabolic encephalopathy. Seizure. Respiratory distress. Leukocytosis. Necrotic right toes, s/p right BKA. AFib. CAD, s/p CABG. CHF. DM. HTN. HLD. 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 RECOMMENDATIONS/PLAN: EEG. Treat medical diseases. OT/PT. HCT: negative. HISTORY OF THE PRESENT ILLNESS: This is a 78-year-old male who was discharged 06/22 after treatment for pneumonia and sepsis. This afternoon he became dyspneic with SpO2 in low 80s, so he was brought back to ER. On arrival to ER his saturations are above 95% on 3 L by nasal canula which is at his baseline O2 requirement. Received breathing treatment in ED with improvement in his respiratory effort. He has been ahving MS changes, further declined cognitive function, so he was hospitalized and neurology was requested for consultation. Past Medical History A-Fib, Anemia, Arthritis, CAD, CHF, COPD, Depression, Diabetes-Type II, High Cholesterol, Hypertension, MRSA, Seizure, Stroke, bronchiolitis obliterans, TREMORS,NECROTIC RT TOES, RT HEEL, LT OUTER ANKLE Cardiovascular: AFIB, HTN, [place] Pulmonary: Asthma, Bronchitis, COPD, Pneumonia, Other CENTRAL NERVOUS SYSTEM: CVA, Periperal neuropathy GI: Other Heme/Onc: No pertinent hx Hepatobiliary: No pertinent hx Psych: Depression Musculoskeletal: Osteoarthritis Rheumatologic: No pertinent hx Infectious disease: No pertinent hx Renal/: Other Endocrine: Diabetes Past Surgical History Appendectomy, Coronary Bypass Surgery, MULTIPLE TOE AMP, ROTATOR CUFF, BOVINE VALVE, LT HIP Family History Coronary Artery Disease, HLD, Hypertension Social History Smoke: No ALCOHOL: none Drugs: None Allergies Coded Allergies: Fentanyl (Verified Allergy, Intermediate, 06/17/18) Per pt : agitation and difficulty awakening pt after I S O L A T I O N *CONTACT* (Verified Allergy, Unknown, 05/23/18), mrsa MEDICATIONS: Refer to MAR REVIEW OF SYSTEMS: Constitutional: No malnutrition, weight loss, cachexia. Head: No traumatic brain or head injury. Skin: No edema, or rash. Ear: No infection. Eyes: No vision loss or color blindness. Nose: No bleeding or purulent discharges. Hearing: Hearing decrease. Neck: No injury. Cardiac: CAD, s/p CABG, AFib, HTN, HLD. Pulmonary: No COPD. GI: No GI ulcer, GI bleeding. Urinary/genital: UTI. Endocrinologic: Diabetes Mellitus, obesity. Skeletomuscular: Generalized weakness. Neurological: see HP. Psychiatric: Denies drug use/abuse. Otherwise, not [id number] review of systems. PHYSICAL EXAMINATION: General appearance is in subacute distress. HEENT: Normocephalic and nontraumatic. Eyes, nose, ears, and throat are unremarkable. Neck is supple. No lymphadenopathy. No crepitus. Cardiovascular: S1, S2, regular rate and rhythm. Pulmonary: Decreased to auscultation bilaterally. Abdomen: Bowel sounds are positive. Extremities: No rash or edema. No restriction of range of motion NEUROLOGICAL EXAMINATION: Awake. Not oriented to time, place but knew his . PERRL. EOMI. CN: no focal findings. Muscle tone: Increased in left side. Within normal right side. Muscle strength: 2 left side, 4 right side. DTR: 2 Plantar reflex: Neutral response left side, BKA right side. Gait: not able to walk. Sensory exam: no acute abnormal findings. Not able to access cerebellar signs due to not follow commands. F-T-N test not performed. Objective Objective Vital Signs Date Time Temp Pulse Resp B/P (MAP) Pulse Ox O2 Delivery O2 Flow Rate FiO2 06/24/18 14:55 98.3 68 7 129/58 (81) 98 Nasal Cannula 98.0 98.3 Intake and Output 06/24/18 07:00 Intake Total 2500 ml Output Total 1125 ml Balance 1375 ml Intake Oral 1800 ml IV Total 700 ml Output Urine Total 1125 ml # Voids 4 # Bowel Movements 10 Vitals Signs Vitals VS - Last 72 Hours, by Label Date Time Temp Pulse Resp B/P (MAP) Pulse Ox O2 Delivery O2 Flow Rate FiO2 06/24/18 14:55 98.3 68 7 129/58 (81) 98 Nasal Cannula 98.0 98.3 06/24/18 11:38 98 Nasal Cannula 2.0 06/24/18 11:00 67 12 147/67 (93) 99 Nasal Cannula 2.0 06/24/18 08:55 69 163/57 06/24/18 08:54 69 163/57 06/24/18 08:54 69 163/57 06/24/18 08:54 70 06/24/18 08:01 100 Nasal Cannula 3.0 06/24/18 08:00 Nasal Cannula 3.0 06/24/18 07:00 98.4 69 15 163/57 (92) 100 Nasal Cannula 2.0 98.4 06/24/18 03:00 98.2 67 20 153/67 (95) 98 Nasal Cannula 3.0 98.2 06/23/18 23:00 98.1 67 20 91/53 (66) 98 Nasal Cannula 3.0 98.1 06/23/18 21:20 91 143/46 06/23/18 21:19 68 143/46 06/23/18 20:30 Nasal Cannula 3.0 06/23/18 19:36 100 Nasal Cannula 2.0 06/23/18 19:00 98.5 68 22 135/90 (105) 98 Nasal Cannula 3.0 98.5 06/23/18 15:31 Nasal Cannula 2.0 06/23/18 15:00 98.2 69 15 137/49 (78) 100 Nasal Cannula 3.0 98.2 06/23/18 12:08 98 Nasal Cannula 2.0 06/23/18 11:00 72 14 117/50 (72) 98 Nasal Cannula 3.0 06/23/18 08:01 98 Nasal Cannula 3.0 06/23/18 08:00 Nasal Cannula 3.0 06/23/18 07:30 98.3 74 12 119/56 (77) 98 Nasal Cannula 3.0 98.3 Laboratory Laboratory Laboratory Tests Test 06/23/18 17:16 06/24/18 05:15 06/24/18 08:08 06/24/18 11:49 Glucose (Fingerstick) 227 mg/dL (70-99) 206 mg/dL (70-99) 191 mg/dL (70-99) White Blood Count 9.1 x10^3/uL (4.0-11.0) Red Blood Count 2.83 x10^6/uL (4.30-5.70) Hemoglobin 7.4 g/dL (13.0-17.5) Hematocrit 23.6 % (39.0-53.0) Mean Corpuscular Volume 83 fL (79-100) Mean Corpuscular Hemoglobin 26 pg (25-35) Mean Corpuscular Hemoglobin Concent 32 g/dL (31-37) Red Cell Distribution Width 16.8 % (11.5-14.5) Platelet Count 243 x10^3/uL (140-400) Neutrophils (%) (Auto) 86 % (31-73) Lymphocytes (%) (Auto) 4 % (24-48) Monocytes (%) (Auto) 10 % (0-9) Eosinophils (%) (Auto) 0 % (0-3) Basophils (%) (Auto) 0 % (0-3) Neutrophils # (Auto) 7.8 x10^3uL (1.8-7.7) Lymphocytes # (Auto) 0.4 x10^3/uL (1.0-4.8) Monocytes # (Auto) 0.9 x10^3/uL (0.0-1.1) Eosinophils # (Auto) 0.0 x10^3/uL (0.0-0.7) Basophils # (Auto) 0.0 x10^3/uL (0.0-0.2) Sodium Level 139 mmol/L (136-145) Potassium Level 3.5 mmol/L (3.5-5.1) Chloride Level 102 mmol/L (98-107) Carbon Dioxide Level 26 mmol/L (21-32) Anion Gap 11 (6-14) Blood Urea Nitrogen 19 mg/dL (8-26) Creatinine 1.0 mg/dL (0.7-1.3) Estimated GFR (Cockcroft-Gault) 72.6 BUN/Creatinine Ratio 19 (6-20) Glucose Level 223 mg/dL (70-99) Calcium Level 8.3 mg/dL (8.5-10.1) Total Bilirubin 0.5 mg/dL (0.2-1.0) Aspartate Amino Transf (AST/SGOT) 34 U/L (15-37) Alanine Aminotransferase (ALT/SGPT) 30 U/L (16-63) Alkaline Phosphatase 79 U/L (46-116) Total Protein 6.8 g/dL (6.4-8.2) Albumin 1.8 g/dL (3.4-5.0) Albumin/Globulin Ratio 0.4 (1.0-1.7) Thyroid Stimulating Hormone (TSH) 0.415 uIU/mL (0.358-3.74) Free Thyroxine 0.94 ng/dL (0.76-1.46) Test 06/24/18 13:35 Prothrombin Time 33.7 SEC (11.7-14.0) Prothromb Time International Ratio 3.3 (0.8-1.1) Microbiology 06/23/18 Blood Culture - Preliminary, Resulted NO GROWTH AFTER 1 DAY Medication Medications Current Medications Aspirin (Ecotrin) 81 mg DAILYWBKFT PO Last administered on 06/24/18 08:54; Start 06/23/18 at 18:15 Atorvastatin Calcium (Lipitor) 80 mg QHS PO Last administered on 06/23/18 21:19; Start 06/23/18 at 21:00 Budesonide (Pulmicort) 0.5 mg RTBID NEB Last administered on 06/24/18 08:01; Start 06/24/18 at 08:00 Digoxin (Lanoxin) 125 mcg DAILY PO Last administered on 06/24/18 08:54; Start 06/24/18 at 09:00 Famotidine (Pepcid Vial) 20 mg BID IVP Last administered on 06/24/18 08:57; Start 06/23/18 at 21:00 Furosemide (Lasix) 40 mg DAILY IVP Last administered on 06/24/18 12:51; Start 06/24/18 at 12:30 Furosemide (Lasix) 40 mg DAILY PO Last administered on 06/24/18 08:56; Start 06/24/18 at 09:00; Stop 06/24/18 at 12:27; Status DC Gabapentin (Neurontin) 300 mg DAILY PO Last administered on 06/24/18 08:53; Start 06/24/18 at 09:00 Hydralazine HCl (Apresoline) 10 mg TID PO Last administered on 06/24/18 08:54; Start 06/23/18 at 21:00 Lactobacillus Rhamnosus (Culturelle) 1 cap BID PO ; Start 06/24/18 at 21:00 Levetiracetam (Keppra) 1,250 mg BID PO Last administered on 06/24/18 08:53; Start 06/23/18 at 21:00 Lisinopril (Prinivil) 20 mg DAILY PO Last administered on 06/24/18 08:54; Start 06/24/18 at 09:00; Stop 06/24/18 at 12:27; Status DC Lisinopril (Prinivil) 40 mg DAILY PO ; Start 06/25/18 at 09:00 Metoprolol Tartrate (Lopressor) 50 mg BID PO Last administered on 06/24/18 08:55; Start 06/23/18 at 21:00 Multivitamins (Thera M Plus) 1 tab DAILY PO Last administered on 06/24/18 08:54; Start 06/24/18 at 09:00 Potassium Chloride (Klor-Con) 20 meq DAILYWBKFT PO Last administered on 06/24/18 08:53; Start 06/23/18 at 18:30 Risperidone (RisperDAL) 1 mg QHS PO Last administered on 06/23/18 21:19; Start 06/23/18 at 21:00 Vancomycin HCl (Vancomycin Trough Level) 1 each 1X ONCE MC ; Start 06/25/18 at 07:30; Stop 06/25/18 at 07:31 Vancomycin HCl 1.5 gm/Sodium Chloride 500 ml @ 250 mls/hr Q24H IV Last administered on 06/24/18 08:53; Start 06/24/18 at 08:00 Warfarin Sodium (Coumadin Per Pharmacy) 1 each PRN DAILY PRN MC SEE COMMENTS Last administered on 06/24/18 11:22; Start 06/23/18 at 18:30 Warfarin Sodium (Coumadin) 4 mg DAILY16 PO Last administered on 06/23/18 21:19; Start 06/23/18 at 19:30 Zonisamide (Zonegran) 400 mg DAILY PO Last administered on 06/24/18 08:54; Start 06/23/18 at 18:00 Comment Review of Relevant I have reviewed the following items navi (where applicable) has been applied. LIA MALIN MD June 24, 2018 15:42
--- NOTE | 2018-06-24 15:49 | NUR ---
Pharmacy Warfarin Dosing Note S:Pharmacy consulted to assist with anticoagulation therapy started with target INR: 2 -3 O:VICKI BRAUN is a 78 year old M with Atrial Fibrillation LABS: Last INR: 2.4 Last HGB: 7.4 Last HCT: 23.6 Last PLT: 243 Last dose of 4 mg given on 06/23/18 at 2121 Previous Regimen: Vitamin K given: N Drug Interaction Changes: Ongoing Drug Interactions: Patient was discharged on 06/22 and readmitted on 06-23. INR on 06/22 was 2.4 and dose ordered was 4mg. Dose was NOT administered here at [facility] for 06/22. A:INR of 3.4 is above desired range. Target range for this patient is: 2 -3 P: Warfarin dose: HOLD Today at 1600 Bridge Therapy: None Next INR due IN AM Pharmacy anticoagulation service will continue to follow. GAIL GEORGES, [facility], 06/24/18 [id number]
--- NOTE | 2018-06-24 21:00 | NUR ---
NURSING NOTE Pt is less alert than previous assessment, pt minimally opens eyes upon turning him. It was reported that pt does have periods of extreme sleepiness and low respiratory rate. Pt unable to take any oral medications at this time not being alert enough. Will monitor and administer meds when pt is more alert.
[2018-06-24] MEDS: LACTOBACILLUS RHAMNOSUS GG 1 CAPSULE. PO SCH (23:15)
[2018-06-24] MEDS: risperiDONE 1 MG TABLET. PO SCH (23:15)
[2018-06-24] MEDS: ATORVASTATIN CALCIUM 40 MG TABLET. PO SCH (23:15)
--- NOTE | 2018-06-24 23:15 | NUR ---
NURSING NOTE Pt given bed bath, linen changed, gown changed. Pt resisted bathing times with his right arm, and did open his eyes but only whispered "no" when asked if he would take a drink, then went back to sleep. Vitals taken and documented. Pt still not alert enough to take his HS oral medications, will non-administer on EMar.
[2018-06-25 03:21] VITALS: BP 110/43
--- NOTE | 2018-06-25 05:44 | RAD ---
AP chest. HISTORY: Respiratory failure AP view was taken of the chest. Patient had previous aortic valve surgery. Patient rotated to the right. Right PICC line is unchanged. There are bilateral areas of infiltrate with a mild improvement. Pleural effusions have shown improvement. IMPRESSION: 1. Right PICC line unchanged. 2. Improving infiltrates.. Electronically signed by: Nelson Still MD (06/25/2018 5:41 AM) [facility]
[2018-06-25] MEDS: PIPERACILLIN/TAZOBACTAM 3.375 GM in IV NORMAL SALINE 50ML 50 ML IV SCH ×4 (05:55→23:37)
[2018-06-25 06:37] LABS: ALBUMIN 1.8 g/dL (3.4-5.0); ALBUMIN/GLOBULIN RATIO 0.4 (1.0-1.7); CALCIUM 8.1 mg/dL (8.5-10.1); CREATININE 1.2 mg/dL (0.7-1.3); GFR 58.9; POTASSIUM 3.3 mmol/L (3.5-5.1); TOTAL BILIRUBIN 0.3 mg/dL (0.2-1.0); TOTAL PROTEIN 6.3 g/dL (6.4-8.2)
[2018-06-25 06:38] LABS: BASO % 0 % (0-3); EOS # 0.2 x10^3/uL (0.0-0.7); EOS % 2 % (0-3); HEMATOCRIT 24.2 % (39.0-53.0); HEMOGLOBIN 7.6 g/dL (13.0-17.5); LYMPH # 0.7 x10^3/uL (1.0-4.8); LYMPH % 7 % (24-48); MEAN CORPUSCULAR HEMOGLOBIN 27 pg (25-35); MEAN CORPUSCULAR HGB CONC 32 g/dL (31-37); MEAN CORPUSCULAR VOLUME 84 fL (79-100); MONO # 0.8 x10^3/uL (0.0-1.1); MONO % 9 % (0-9); NEUT # 7.4 x10^3uL (1.8-7.7); NEUT % 81 % (31-73); PLATELET COUNT 254 x10^3/uL (140-400); RED BLOOD COUNT 2.87 x10^6/uL (4.30-5.70); WHITE BLOOD COUNT 9.1 x10^3/uL (4.0-11.0)
[2018-06-25 06:48] LABS: PROTHROMBIN TIME PATIENT 36.3 SEC (11.7-14.0)
[2018-06-25 07:30] VITALS: BP 135/53
[2018-06-25] MEDS: VANCOMYCIN 1.5 GM in IV NORMAL SALINE 500ML BAG 500 ML IV SCH (08:00)
--- NOTE | 2018-06-25 08:29 | PDOC ---
Infectious Disease Note Subjective Subjective Says breathing is better Comfortable, denies pain Remains afebrile without chills/aches/sweats ROS ROS no n/v/d/sob/fever Vital Sign Vital Signs Vital Signs Date Time Temp Pulse Resp B/P (MAP) Pulse Ox O2 Delivery O2 Flow Rate FiO2 06/25/18 07:30 97.7 69 18 135/53 (80) 98 Nasal Cannula 2.0 97.7 Physical Exam PHYSICAL EXAM GENERAL: in bed,, alert, HENT: ISMAEL, Oral cavity/pharynx pink, dry. No thrush LUNGS: Clear anteriorly, nonlabored CV: S1 S2, regular ABD: Obese, soft, NT : [place] EXT: 2+ edema left leg. Right BKA stump incision healing well, steri strips in place. 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, responding appropriately RUE-PICC (POA) clean Labs Lab Laboratory Tests Test 06/24/18 11:49 06/24/18 13:35 06/24/18 16:55 06/24/18 17:03 Glucose (Fingerstick) 191 mg/dL (70-99) 235 mg/dL (70-99) 232 mg/dL (70-99) Prothrombin Time 33.7 SEC (11.7-14.0) Prothromb Time International Ratio 3.3 (0.8-1.1) Test 06/24/18 21:09 06/25/18 06:05 Glucose (Fingerstick) 245 mg/dL (70-99) White Blood Count 9.1 x10^3/uL (4.0-11.0) Red Blood Count 2.87 x10^6/uL (4.30-5.70) Hemoglobin 7.6 g/dL (13.0-17.5) Hematocrit 24.2 % (39.0-53.0) Mean Corpuscular Volume 84 fL (79-100) Mean Corpuscular Hemoglobin 27 pg (25-35) Mean Corpuscular Hemoglobin Concent 32 g/dL (31-37) Red Cell Distribution Width 17.0 % (11.5-14.5) Platelet Count 254 x10^3/uL (140-400) Neutrophils (%) (Auto) 81 % (31-73) Lymphocytes (%) (Auto) 7 % (24-48) Monocytes (%) (Auto) 9 % (0-9) Eosinophils (%) (Auto) 2 % (0-3) Basophils (%) (Auto) 0 % (0-3) Neutrophils # (Auto) 7.4 x10^3uL (1.8-7.7) Lymphocytes # (Auto) 0.7 x10^3/uL (1.0-4.8) Monocytes # (Auto) 0.8 x10^3/uL (0.0-1.1) Eosinophils # (Auto) 0.2 x10^3/uL (0.0-0.7) Basophils # (Auto) 0.0 x10^3/uL (0.0-0.2) Prothrombin Time 36.3 SEC (11.7-14.0) Prothromb Time International Ratio 3.6 (0.8-1.1) Sodium Level 143 mmol/L (136-145) Potassium Level 3.3 mmol/L (3.5-5.1) Chloride Level 106 mmol/L (98-107) Carbon Dioxide Level 31 mmol/L (21-32) Anion Gap 6 (6-14) Blood Urea Nitrogen 19 mg/dL (8-26) Creatinine 1.2 mg/dL (0.7-1.3) Estimated GFR (Cockcroft-Gault) 58.9 BUN/Creatinine Ratio 16 (6-20) Glucose Level 253 mg/dL (70-99) Calcium Level 8.1 mg/dL (8.5-10.1) Total Bilirubin 0.3 mg/dL (0.2-1.0) Aspartate Amino Transf (AST/SGOT) 26 U/L (15-37) Alanine Aminotransferase (ALT/SGPT) 30 U/L (16-63) Alkaline Phosphatase 80 U/L (46-116) Total Protein 6.3 g/dL (6.4-8.2) Albumin 1.8 g/dL (3.4-5.0) Albumin/Globulin Ratio 0.4 (1.0-1.7) Micro Microbiology 06/23/18 Blood Culture - Preliminary, Resulted NO GROWTH AFTER 2 DAYS Objective Assessment Persistent right perihilar infiltrate and pleural effusions Leukocytosis, had been on prednisone at CT h/o E. coli UTI, discharged on Keflex through 06/24 h/o MRSA bacteremia with sepsis from 05/18. Discharged on Dapto till 07/02. CPK 31 -CRYSTAL done no vegetations 05/21; BC from 05/20 & onward were neg Acute on chronic CHF h/o MRSA and Enterobacter ( R Augmentin/cefuroxime) infection h/o PSA ( R quinolones & I imipenem) infection Bioprosthetic aortic valve A- fib, anticoagulation on warfarin Diabetes Type II Seizure disorder, on Keppra H/o cholecystitis - U/S 06/18 Sludge in the gallbladder. No cholelithiasis or cholecystitis. No biliary dilatation Plan Plan of Care Continue vancomycin and Zosyn Monitor WBC/temp and renal function closely Procalcitonin 0.40 fBC neg so far PICC maintenance care Leg elevation d/w DAYANA WONG MD June 25, 2018 08:29
[2018-06-25] MEDS: INSULIN LISPRO 300 UNITS/3 ML INSULN.PEN. SQ SCH ×4 (08:39→17:37)
--- NOTE | 2018-06-25 08:50 | PDOC ---
PULMONARY PROGRESS NOTES Subjective PT NOT SOA NO CHEST PAIN Vitals Vital Signs Date Time Temp Pulse Resp B/P (MAP) Pulse Ox O2 Delivery O2 Flow Rate FiO2 06/25/18 07:30 97.7 69 18 135/53 (80) 98 Nasal Cannula 2.0 97.7 ROS: No Nausea, No Chest Pain, No Increase Cough HEENT: Other Lungs: Wheezing, Crackles, Other Cardiovascular: Other (irreg irreg) Abdomen: Soft, Non-tender, Other Neuro Exam: Alert Extremities: Other (edema) Skin: Warm Labs Laboratory Tests Test 06/23/18 10:15 06/23/18 12:26 06/23/18 17:16 06/24/18 05:15 Troponin I Quantitative 0.048 ng/mL (0.000-0.055) Procalcitonin 0.40 ng/mL (0.00-0.10) Glucose (Fingerstick) 212 mg/dL (70-99) 227 mg/dL (70-99) White Blood Count 9.1 x10^3/uL (4.0-11.0) Red Blood Count 2.83 x10^6/uL (4.30-5.70) Hemoglobin 7.4 g/dL (13.0-17.5) Hematocrit 23.6 % (39.0-53.0) Mean Corpuscular Volume 83 fL (79-100) Mean Corpuscular Hemoglobin 26 pg (25-35) Mean Corpuscular Hemoglobin Concent 32 g/dL (31-37) Red Cell Distribution Width 16.8 % (11.5-14.5) Platelet Count 243 x10^3/uL (140-400) Neutrophils (%) (Auto) 86 % (31-73) Lymphocytes (%) (Auto) 4 % (24-48) Monocytes (%) (Auto) 10 % (0-9) Eosinophils (%) (Auto) 0 % (0-3) Basophils (%) (Auto) 0 % (0-3) Neutrophils # (Auto) 7.8 x10^3uL (1.8-7.7) Lymphocytes # (Auto) 0.4 x10^3/uL (1.0-4.8) Monocytes # (Auto) 0.9 x10^3/uL (0.0-1.1) Eosinophils # (Auto) 0.0 x10^3/uL (0.0-0.7) Basophils # (Auto) 0.0 x10^3/uL (0.0-0.2) Sodium Level 139 mmol/L (136-145) Potassium Level 3.5 mmol/L (3.5-5.1) Chloride Level 102 mmol/L (98-107) Carbon Dioxide Level 26 mmol/L (21-32) Anion Gap 11 (6-14) Blood Urea Nitrogen 19 mg/dL (8-26) Creatinine 1.0 mg/dL (0.7-1.3) Estimated GFR (Cockcroft-Gault) 72.6 BUN/Creatinine Ratio 19 (6-20) Glucose Level 223 mg/dL (70-99) Calcium Level 8.3 mg/dL (8.5-10.1) Total Bilirubin 0.5 mg/dL (0.2-1.0) Aspartate Amino Transf (AST/SGOT) 34 U/L (15-37) Alanine Aminotransferase (ALT/SGPT) 30 U/L (16-63) Alkaline Phosphatase 79 U/L (46-116) Total Protein 6.8 g/dL (6.4-8.2) Albumin 1.8 g/dL (3.4-5.0) Albumin/Globulin Ratio 0.4 (1.0-1.7) Thyroid Stimulating Hormone (TSH) 0.415 uIU/mL (0.358-3.74) Free Thyroxine 0.94 ng/dL (0.76-1.46) Test 06/24/18 08:08 06/24/18 11:49 06/24/18 13:35 06/24/18 16:55 Glucose (Fingerstick) 206 mg/dL (70-99) 191 mg/dL (70-99) 235 mg/dL (70-99) Prothrombin Time 33.7 SEC (11.7-14.0) Prothromb Time International Ratio 3.3 (0.8-1.1) Test 06/24/18 17:03 06/24/18 21:09 06/25/18 06:05 Glucose (Fingerstick) 232 mg/dL (70-99) 245 mg/dL (70-99) White Blood Count 9.1 x10^3/uL (4.0-11.0) Red Blood Count 2.87 x10^6/uL (4.30-5.70) Hemoglobin 7.6 g/dL (13.0-17.5) Hematocrit 24.2 % (39.0-53.0) Mean Corpuscular Volume 84 fL (79-100) Mean Corpuscular Hemoglobin 27 pg (25-35) Mean Corpuscular Hemoglobin Concent 32 g/dL (31-37) Red Cell Distribution Width 17.0 % (11.5-14.5) Platelet Count 254 x10^3/uL (140-400) Neutrophils (%) (Auto) 81 % (31-73) Lymphocytes (%) (Auto) 7 % (24-48) Monocytes (%) (Auto) 9 % (0-9) Eosinophils (%) (Auto) 2 % (0-3) Basophils (%) (Auto) 0 % (0-3) Neutrophils # (Auto) 7.4 x10^3uL (1.8-7.7) Lymphocytes # (Auto) 0.7 x10^3/uL (1.0-4.8) Monocytes # (Auto) 0.8 x10^3/uL (0.0-1.1) Eosinophils # (Auto) 0.2 x10^3/uL (0.0-0.7) Basophils # (Auto) 0.0 x10^3/uL (0.0-0.2) Prothrombin Time 36.3 SEC (11.7-14.0) Prothromb Time International Ratio 3.6 (0.8-1.1) Sodium Level 143 mmol/L (136-145) Potassium Level 3.3 mmol/L (3.5-5.1) Chloride Level 106 mmol/L (98-107) Carbon Dioxide Level 31 mmol/L (21-32) Anion Gap 6 (6-14) Blood Urea Nitrogen 19 mg/dL (8-26) Creatinine 1.2 mg/dL (0.7-1.3) Estimated GFR (Cockcroft-Gault) 58.9 BUN/Creatinine Ratio 16 (6-20) Glucose Level 253 mg/dL (70-99) Calcium Level 8.1 mg/dL (8.5-10.1) Total Bilirubin 0.3 mg/dL (0.2-1.0) Aspartate Amino Transf (AST/SGOT) 26 U/L (15-37) Alanine Aminotransferase (ALT/SGPT) 30 U/L (16-63) Alkaline Phosphatase 80 U/L (46-116) Total Protein 6.3 g/dL (6.4-8.2) Albumin 1.8 g/dL (3.4-5.0) Albumin/Globulin Ratio 0.4 (1.0-1.7) Laboratory Tests Test 06/24/18 11:49 06/24/18 13:35 06/24/18 16:55 06/24/18 17:03 Glucose (Fingerstick) 191 mg/dL (70-99) 235 mg/dL (70-99) 232 mg/dL (70-99) Prothrombin Time 33.7 SEC (11.7-14.0) Prothromb Time International Ratio 3.3 (0.8-1.1) Test 06/24/18 21:09 06/25/18 06:05 Glucose (Fingerstick) 245 mg/dL (70-99) White Blood Count 9.1 x10^3/uL (4.0-11.0) Red Blood Count 2.87 x10^6/uL (4.30-5.70) Hemoglobin 7.6 g/dL (13.0-17.5) Hematocrit 24.2 % (39.0-53.0) Mean Corpuscular Volume 84 fL (79-100) Mean Corpuscular Hemoglobin 27 pg (25-35) Mean Corpuscular Hemoglobin Concent 32 g/dL (31-37) Red Cell Distribution Width 17.0 % (11.5-14.5) Platelet Count 254 x10^3/uL (140-400) Neutrophils (%) (Auto) 81 % (31-73) Lymphocytes (%) (Auto) 7 % (24-48) Monocytes (%) (Auto) 9 % (0-9) Eosinophils (%) (Auto) 2 % (0-3) Basophils (%) (Auto) 0 % (0-3) Neutrophils # (Auto) 7.4 x10^3uL (1.8-7.7) Lymphocytes # (Auto) 0.7 x10^3/uL (1.0-4.8) Monocytes # (Auto) 0.8 x10^3/uL (0.0-1.1) Eosinophils # (Auto) 0.2 x10^3/uL (0.0-0.7) Basophils # (Auto) 0.0 x10^3/uL (0.0-0.2) Prothrombin Time 36.3 SEC (11.7-14.0) Prothromb Time International Ratio 3.6 (0.8-1.1) Sodium Level 143 mmol/L (136-145) Potassium Level 3.3 mmol/L (3.5-5.1) Chloride Level 106 mmol/L (98-107) Carbon Dioxide Level 31 mmol/L (21-32) Anion Gap 6 (6-14) Blood Urea Nitrogen 19 mg/dL (8-26) Creatinine 1.2 mg/dL (0.7-1.3) Estimated GFR (Cockcroft-Gault) 58.9 BUN/Creatinine Ratio 16 (6-20) Glucose Level 253 mg/dL (70-99) Calcium Level 8.1 mg/dL (8.5-10.1) Total Bilirubin 0.3 mg/dL (0.2-1.0) Aspartate Amino Transf (AST/SGOT) 26 U/L (15-37) Alanine Aminotransferase (ALT/SGPT) 30 U/L (16-63) Alkaline Phosphatase 80 U/L (46-116) Total Protein 6.3 g/dL (6.4-8.2) Albumin 1.8 g/dL (3.4-5.0) Albumin/Globulin Ratio 0.4 (1.0-1.7) Medications Active Scripts Medications Dose Route/Sig Max Daily Dose Days Date Category Dose Instructions Daptomycin 350 Mg Vial 350 Mg IV DAILY 10 06/22/18 Rx Cephalexin 250 Mg Capsule 500 Mg PO QID 3 06/22/18 Rx Percocet 5-325 Mg Tablet (Oxycodone/Acetaminophen) 1 Each Tablet 1 Tab PO PRN Q4HRS PRN 6 06/22/18 Rx Digoxin 125 Mcg Tablet 125 Mcg PO DAILY 05/15/16 Rx Furosemide 40 Mg Tablet 40 Mg PO DAILY 05/15/16 Rx Zonisamide 100 Mg Capsule 400 Mg PO DAILY 05/11/16 Reported Multivitamins (Multivitamin) 1 Each Tablet 1 Tab PO DAILY 05/11/16 Reported Levetiracetam 250 Mg Tablet 1,250 Mg PO BID 05/11/16 Reported Atorvastatin Calcium 80 Mg Tablet 1 Tab PO DAILY 05/11/16 Reported Acetaminophen 500 Mg Tablet 1 Tab PO PRN Q6HRS PRN 05/11/16 Reported Metoprolol Tartrate 50 Mg Tablet 50 Mg PO BID 02/24/16 Rx [Warfarin Sodium] 1 EACH Each 1 Each MC PRN DAILY PRN 02/24/16 Rx Lisinopril 20 Mg Tablet 20 Mg PO DAILY 02/24/16 Rx Duoneb 0.5-3(2.5) Mg/3 Ml (Albuterol/Ipratropium) 3 Ml Ampul.neb 3 Ml NEB Q4HRS W/A 30 02/24/16 Rx Hydralazine Hcl 10 Mg Tablet 10 Mg PO TID 02/24/16 Rx Albuterol Sulfate Hfa Inhaler (Albuterol Sulfate) 8.5 Gm Hfa.aer.ad 2 Puff IH PRN Q6HRS PRN 02/20/13 Reported Aspirin Ec (Aspirin) 325 Mg Tablet.dr 81 Mg PO DAILY 02/20/13 Reported Warfarin Sodium 5 Mg Tablet 6 Mg PO DAILY 02/19/13 Reported Warfarin Sodium 2.5 Mg Tablet 2.5 Mg PO 3X/WEEK 02/19/13 Reported monday,monday, Gabapentin (Gabapentin) 300 Mg Capsule 300 Mg PO DAILY 02/19/13 Reported Risperidone 1 Mg Tablet 1 Mg PO HS 02/19/13 Reported Novolog (Insulin Aspart) 100 Unit/1 Ml Vial 10 Unit SQ DAILYAC 02/19/13 Reported Potassium 99 Mg Tablet 20 Meq PO DAILY 02/19/13 Reported Comments reviewed cta 06/23 1. There is no CT evidence of pulmonary embolus. 2. Dilated pulmonary trunk suggests pulmonary arterial hypertension. 3. Moderate bilateral pleural effusions. 4. Unchanged right upper lobe bronchopneumonia. Scattered groundglass opacities in the lungs are similar to prior study and are likely infectious/inflammatory. 5. Mild mediastinal adenopathy may be reactive. Impression . WILL CONTINUE SUPPORT FOLLOW CXR IMPRESSION: 1. [id number] hypoxemic respiratory failure secondary to acute exacerbation of chronic obstructive pulmonary disease, pneumonia, 2. Abnormal CT of the chest 3. Pneumonia 4. Acute systolic congestive heart failure. 5. Acute exacerbation of chronic obstructive pulmonary disease. 6. Leukocytosis. 7. Anemia. 8. History of cerebrovascular accident. 9. Lower extremity edema, no dvt 10. Atrial fibrillation/atrial flutter on Coumadin. 11. Bioprosthetic aortic valve. 12. diarrhea, ? c diff Plan . PLAN AND RECOMMENDATIONS: 1. Monitor very closely in ICU. 2. Titrate FiO2 to keep O2 saturation 92%. 3. stool for c diff 4. Lower extremity venous Doppler, neg. 5. abx per ID 6. cont Solu-Medrol to 40 mg IV bid 7. bronchodilator, Atrovent only. He has history of atrial fibrillation/atrial flutter with rapid ventricular response. add ICS 8. monitor PT/INR. 9. fu cxr 10. lasix, monitor k, cr fabrice w MANDEEP Fried MD June 25, 2018 08:50
[2018-06-25] MEDS: IPRATROPIUM BROMIDE 0.5 MG/2.5 ML NEBU. NEB SCH ×4 (09:12→19:40)
[2018-06-25] MEDS: BUDESONIDE 0.5 MG/2 ML NEBU. NEB SCH ×2 (09:12→19:41)
--- NOTE | 2018-06-25 09:13 | NUR ---
Pharmacy Warfarin Dosing Note S:Pharmacy consulted to assist with anticoagulation therapy started with target INR: 2 -3 O:VICKI BRAUN is a 78 year old M with Atrial Fibrillation LABS: Last INR: 3.6 Last HGB: 7.6 Last HCT: 24.2 Last PLT: 254 Last dose of Hold given on 06/24/18 at 2121 Previous Regimen: Vitamin K given: N Drug Interaction Changes: Ongoing Drug Interactions: 06/25 INR THRU 06/28 Patient was discharged on 06/22 and readmitted on 06-23. INR on 06/22 was 2.4 and dose ordered was 4mg. Dose was NOT administered here at [facility] for 06/22. A:INR of 3.6 is above desired range. Target range for this patient is: 2 -3 P: Warfarin dose: Hold Today at 1600 Bridge Therapy: None Next INR due TOMORROW. Pharmacy anticoagulation service will continue to follow. NENITA LAM [facility], 06/25/18 [id number]
--- NOTE | 2018-06-25 09:15 | NUR ---
IP: Pt is mrsa screen + requiring contact precautions. Pt also has a hx of mrsa in blood and an ankle wound from 05/18/18.
[2018-06-25] MEDS: LACTOBACILLUS RHAMNOSUS GG 1 CAPSULE. PO SCH ×2 (09:26→20:54)
[2018-06-25] MEDS: ASPIRIN ENTERIC COATED 81 MG TABLET.DR. PO SCH (09:26)
[2018-06-25] MEDS: METOPROLOL TART IMMED RELEASE 50 MG TABLET. PO SCH (09:26)
[2018-06-25] MEDS: DIGOXIN 125 MCG TABLET. PO SCH (09:26)
[2018-06-25] MEDS: POTASSIUM CHLORIDE 20 MEQ TABLET.ER. PO SCH (09:26)
[2018-06-25] MEDS: MULTIVITAMIN with MINERAL TABLET. PO SCH (09:27)
[2018-06-25] MEDS: FUROSEMIDE 40 MG/4 ML VIAL. IVP SCH (09:27)
[2018-06-25] MEDS: LISINOPRIL 20 MG TABLET PO SCH (09:27)
[2018-06-25] MEDS: FAMOTIDINE 20 MG/2 ML VIAL IVP SCH ×2 (09:27→20:52)
[2018-06-25] MEDS: ZONISAMIDE 100 MG CAPSULE. PO SCH (09:27)
[2018-06-25] MEDS: GABAPENTIN 300 MG CAPSULE. PO SCH (09:27)
[2018-06-25] MEDS: levETIRAcetam 250 MG TABLET PO SCH ×2 (09:28→20:54)
[2018-06-25] MEDS: hydrALAZINE 10 MG TABLET PO SCH ×3 (09:28→20:53)
[2018-06-25] MEDS: VANCOMYCIN PER PHARMACY MC PRN ×2 (09:32→10:24)
--- NOTE | 2018-06-25 09:50 | PDOC ---
PROGRESS NOTES History of Present Illness History of Present Illness VTE Prophylaxis Ordered VTE Prophylaxis Devices: Yes VTE Pharmacological Prophylaxi: Yes Assessment/Plan Assessment/Plan IMPRESSION Pneumonia with right perihilar infiltrate. failed outpt trial Leukocytosis Chronic Crawley with pyuria MRSA bacteremia with sepsis from 05/18. was D/c on iv Dapto till 07/02 Acute on chronic CHF MRSA and Enterobacter ( R Augmentin/cefuroxime) infection PSA ( R quinolones & I imipenem) infection Bioprosthetic aortic valve A- fib Anticoagulation on warfarin Hydropic gallbladder contains hyperdense material, sludge versus vicarious excretion of contrast. Fatty replacement of the pancreas. Small bilateral upper pole renal cysts. Sludge in the gallbladder. No cholelithiasis or cholecystitis. No biliary dilatation. Diabetes Type II Seizure disorder, on Keppra Noncompliance New anemia with possible GI bleed s/p blood transfusion elevated troponin i Dilated pulmonary trunk suggests pulmonary arterial hypertension. 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 REMOTE seeing bugs on wall 06/24 Plan: Antibiotics per ID, Continue vancomycin and Zosyn ICU BED blood cult pulm consult ID consult cardiology consult contact isolation TSH 45 min cc time Vitals Vitals Vital Signs Date Time Temp Pulse Resp B/P (MAP) Pulse Ox O2 Delivery O2 Flow Rate FiO2 06/25/18 09:28 69 135/53 06/25/18 09:13 98 Nasal Cannula 2.0 06/25/18 07:30 97.7 18 97.7 Physical Exam Physical Exam GENERAL: in bed,, alert, HENT: ISMAEL, Oral cavity/pharynx pink, dry. No thrush LUNGS: Clear anteriorly, nonlabored CV: S1 S2, regular ABD: Obese, soft, NT : Crawley EXT: 2+ edema left leg. Right BKA stump incision healing well, steri strips in place. SKIN: No rash [employer]: Alert, responding appropriately RUE-PICC (POA) clean General: Alert, Oriented X3, Cooperative, No acute distress Heart: Other (HR irregular) Lungs: Wheezing, Crackles, Other (dull at bases) Abdomen: Normal bowel sounds, Soft, No tenderness Extremities: No cyanosis, Other (RBKA, left toes amputation, 1-2+ edema ) Labs LABS AP chest. HISTORY: Respiratory failure AP view was taken of the chest. Patient had previous aortic valve surgery. Patient rotated to the right. Right PICC line is unchanged. There are bilateral areas of infiltrate with a mild improvement. Pleural effusions have shown improvement. IMPRESSION: 1. Right PICC line unchanged. 2. Improving infiltrates.. Electronically signed by: Nelson Lance MD (06/25/2018 5:41 AM) [facility] DICTATED and SIGNED BY: NELSON LANCE MD DATE: 06/25/18540 Laboratory Tests Test 06/24/18 11:49 06/24/18 13:35 06/24/18 16:55 06/24/18 17:03 Glucose (Fingerstick) 191 mg/dL (70-99) 235 mg/dL (70-99) 232 mg/dL (70-99) Prothrombin Time 33.7 SEC (11.7-14.0) Prothromb Time International Ratio 3.3 (0.8-1.1) Test 06/24/18 21:09 06/25/18 06:05 06/25/18 08:35 Glucose (Fingerstick) 245 mg/dL (70-99) 200 mg/dL (70-99) White Blood Count 9.1 x10^3/uL (4.0-11.0) Red Blood Count 2.87 x10^6/uL (4.30-5.70) Hemoglobin 7.6 g/dL (13.0-17.5) Hematocrit 24.2 % (39.0-53.0) Mean Corpuscular Volume 84 fL (79-100) Mean Corpuscular Hemoglobin 27 pg (25-35) Mean Corpuscular Hemoglobin Concent 32 g/dL (31-37) Red Cell Distribution Width 17.0 % (11.5-14.5) Platelet Count 254 x10^3/uL (140-400) Neutrophils (%) (Auto) 81 % (31-73) Lymphocytes (%) (Auto) 7 % (24-48) Monocytes (%) (Auto) 9 % (0-9) Eosinophils (%) (Auto) 2 % (0-3) Basophils (%) (Auto) 0 % (0-3) Neutrophils # (Auto) 7.4 x10^3uL (1.8-7.7) Lymphocytes # (Auto) 0.7 x10^3/uL (1.0-4.8) Monocytes # (Auto) 0.8 x10^3/uL (0.0-1.1) Eosinophils # (Auto) 0.2 x10^3/uL (0.0-0.7) Basophils # (Auto) 0.0 x10^3/uL (0.0-0.2) Prothrombin Time 36.3 SEC (11.7-14.0) Prothromb Time International Ratio 3.6 (0.8-1.1) Sodium Level 143 mmol/L (136-145) Potassium Level 3.3 mmol/L (3.5-5.1) Chloride Level 106 mmol/L (98-107) Carbon Dioxide Level 31 mmol/L (21-32) Anion Gap 6 (6-14) Blood Urea Nitrogen 19 mg/dL (8-26) Creatinine 1.2 mg/dL (0.7-1.3) Estimated GFR (Cockcroft-Gault) 58.9 BUN/Creatinine Ratio 16 (6-20) Glucose Level 253 mg/dL (70-99) Calcium Level 8.1 mg/dL (8.5-10.1) Total Bilirubin 0.3 mg/dL (0.2-1.0) Aspartate Amino Transf (AST/SGOT) 26 U/L (15-37) Alanine Aminotransferase (ALT/SGPT) 30 U/L (16-63) Alkaline Phosphatase 80 U/L (46-116) Total Protein 6.3 g/dL (6.4-8.2) Albumin 1.8 g/dL (3.4-5.0) Albumin/Globulin Ratio 0.4 (1.0-1.7) Vitamin B12 Level 572 pg/mL (247-911) Comment Review of Relevant I have reviewed the following items navi (where applicable) has been applied. Labs Laboratory Tests Test 06/23/18 10:15 06/23/18 12:26 06/23/18 17:16 06/24/18 05:15 Troponin I Quantitative 0.048 ng/mL (0.000-0.055) Procalcitonin 0.40 ng/mL (0.00-0.10) Glucose (Fingerstick) 212 mg/dL (70-99) 227 mg/dL (70-99) White Blood Count 9.1 x10^3/uL (4.0-11.0) Red Blood Count 2.83 x10^6/uL (4.30-5.70) Hemoglobin 7.4 g/dL (13.0-17.5) Hematocrit 23.6 % (39.0-53.0) Mean Corpuscular Volume 83 fL (79-100) Mean Corpuscular Hemoglobin 26 pg (25-35) Mean Corpuscular Hemoglobin Concent 32 g/dL (31-37) Red Cell Distribution Width 16.8 % (11.5-14.5) Platelet Count 243 x10^3/uL (140-400) Neutrophils (%) (Auto) 86 % (31-73) Lymphocytes (%) (Auto) 4 % (24-48) Monocytes (%) (Auto) 10 % (0-9) Eosinophils (%) (Auto) 0 % (0-3) Basophils (%) (Auto) 0 % (0-3) Neutrophils # (Auto) 7.8 x10^3uL (1.8-7.7) Lymphocytes # (Auto) 0.4 x10^3/uL (1.0-4.8) Monocytes # (Auto) 0.9 x10^3/uL (0.0-1.1) Eosinophils # (Auto) 0.0 x10^3/uL (0.0-0.7) Basophils # (Auto) 0.0 x10^3/uL (0.0-0.2) Sodium Level 139 mmol/L (136-145) Potassium Level 3.5 mmol/L (3.5-5.1) Chloride Level 102 mmol/L (98-107) Carbon Dioxide Level 26 mmol/L (21-32) Anion Gap 11 (6-14) Blood Urea Nitrogen 19 mg/dL (8-26) Creatinine 1.0 mg/dL (0.7-1.3) Estimated GFR (Cockcroft-Gault) 72.6 BUN/Creatinine Ratio 19 (6-20) Glucose Level 223 mg/dL (70-99) Calcium Level 8.3 mg/dL (8.5-10.1) Total Bilirubin 0.5 mg/dL (0.2-1.0) Aspartate Amino Transf (AST/SGOT) 34 U/L (15-37) Alanine Aminotransferase (ALT/SGPT) 30 U/L (16-63) Alkaline Phosphatase 79 U/L (46-116) Total Protein 6.8 g/dL (6.4-8.2) Albumin 1.8 g/dL (3.4-5.0) Albumin/Globulin Ratio 0.4 (1.0-1.7) Thyroid Stimulating Hormone (TSH) 0.415 uIU/mL (0.358-3.74) Free Thyroxine 0.94 ng/dL (0.76-1.46) Test 06/24/18 08:08 06/24/18 11:49 06/24/18 13:35 06/24/18 16:55 Glucose (Fingerstick) 206 mg/dL (70-99) 191 mg/dL (70-99) 235 mg/dL (70-99) Prothrombin Time 33.7 SEC (11.7-14.0) Prothromb Time International Ratio 3.3 (0.8-1.1) Test 06/24/18 17:03 06/24/18 21:09 06/25/18 06:05 06/25/18 08:35 Glucose (Fingerstick) 232 mg/dL (70-99) 245 mg/dL (70-99) 200 mg/dL (70-99) White Blood Count 9.1 x10^3/uL (4.0-11.0) Red Blood Count 2.87 x10^6/uL (4.30-5.70) Hemoglobin 7.6 g/dL (13.0-17.5) Hematocrit 24.2 % (39.0-53.0) Mean Corpuscular Volume 84 fL (79-100) Mean Corpuscular Hemoglobin 27 pg (25-35) Mean Corpuscular Hemoglobin Concent 32 g/dL (31-37) Red Cell Distribution Width 17.0 % (11.5-14.5) Platelet Count 254 x10^3/uL (140-400) Neutrophils (%) (Auto) 81 % (31-73) Lymphocytes (%) (Auto) 7 % (24-48) Monocytes (%) (Auto) 9 % (0-9) Eosinophils (%) (Auto) 2 % (0-3) Basophils (%) (Auto) 0 % (0-3) Neutrophils # (Auto) 7.4 x10^3uL (1.8-7.7) Lymphocytes # (Auto) 0.7 x10^3/uL (1.0-4.8) Monocytes # (Auto) 0.8 x10^3/uL (0.0-1.1) Eosinophils # (Auto) 0.2 x10^3/uL (0.0-0.7) Basophils # (Auto) 0.0 x10^3/uL (0.0-0.2) Prothrombin Time 36.3 SEC (11.7-14.0) Prothromb Time International Ratio 3.6 (0.8-1.1) Sodium Level 143 mmol/L (136-145) Potassium Level 3.3 mmol/L (3.5-5.1) Chloride Level 106 mmol/L (98-107) Carbon Dioxide Level 31 mmol/L (21-32) Anion Gap 6 (6-14) Blood Urea Nitrogen 19 mg/dL (8-26) Creatinine 1.2 mg/dL (0.7-1.3) Estimated GFR (Cockcroft-Gault) 58.9 BUN/Creatinine Ratio 16 (6-20) Glucose Level 253 mg/dL (70-99) Calcium Level 8.1 mg/dL (8.5-10.1) Total Bilirubin 0.3 mg/dL (0.2-1.0) Aspartate Amino Transf (AST/SGOT) 26 U/L (15-37) Alanine Aminotransferase (ALT/SGPT) 30 U/L (16-63) Alkaline Phosphatase 80 U/L (46-116) Total Protein 6.3 g/dL (6.4-8.2) Albumin 1.8 g/dL (3.4-5.0) Albumin/Globulin Ratio 0.4 (1.0-1.7) Vitamin B12 Level 572 pg/mL (247-911) Laboratory Tests Test 06/24/18 11:49 06/24/18 13:35 06/24/18 16:55 06/24/18 17:03 Glucose (Fingerstick) 191 mg/dL (70-99) 235 mg/dL (70-99) 232 mg/dL (70-99) Prothrombin Time 33.7 SEC (11.7-14.0) Prothromb Time International Ratio 3.3 (0.8-1.1) Test 06/24/18 21:09 06/25/18 06:05 06/25/18 08:35 Glucose (Fingerstick) 245 mg/dL (70-99) 200 mg/dL (70-99) White Blood Count 9.1 x10^3/uL (4.0-11.0) Red Blood Count 2.87 x10^6/uL (4.30-5.70) Hemoglobin 7.6 g/dL (13.0-17.5) Hematocrit 24.2 % (39.0-53.0) Mean Corpuscular Volume 84 fL (79-100) Mean Corpuscular Hemoglobin 27 pg (25-35) Mean Corpuscular Hemoglobin Concent 32 g/dL (31-37) Red Cell Distribution Width 17.0 % (11.5-14.5) Platelet Count 254 x10^3/uL (140-400) Neutrophils (%) (Auto) 81 % (31-73) Lymphocytes (%) (Auto) 7 % (24-48) Monocytes (%) (Auto) 9 % (0-9) Eosinophils (%) (Auto) 2 % (0-3) Basophils (%) (Auto) 0 % (0-3) Neutrophils # (Auto) 7.4 x10^3uL (1.8-7.7) Lymphocytes # (Auto) 0.7 x10^3/uL (1.0-4.8) Monocytes # (Auto) 0.8 x10^3/uL (0.0-1.1) Eosinophils # (Auto) 0.2 x10^3/uL (0.0-0.7) Basophils # (Auto) 0.0 x10^3/uL (0.0-0.2) Prothrombin Time 36.3 SEC (11.7-14.0) Prothromb Time International Ratio 3.6 (0.8-1.1) Sodium Level 143 mmol/L (136-145) Potassium Level 3.3 mmol/L (3.5-5.1) Chloride Level 106 mmol/L (98-107) Carbon Dioxide Level 31 mmol/L (21-32) Anion Gap 6 (6-14) Blood Urea Nitrogen 19 mg/dL (8-26) Creatinine 1.2 mg/dL (0.7-1.3) Estimated GFR (Cockcroft-Gault) 58.9 BUN/Creatinine Ratio 16 (6-20) Glucose Level 253 mg/dL (70-99) Calcium Level 8.1 mg/dL (8.5-10.1) Total Bilirubin 0.3 mg/dL (0.2-1.0) Aspartate Amino Transf (AST/SGOT) 26 U/L (15-37) Alanine Aminotransferase (ALT/SGPT) 30 U/L (16-63) Alkaline Phosphatase 80 U/L (46-116) Total Protein 6.3 g/dL (6.4-8.2) Albumin 1.8 g/dL (3.4-5.0) Albumin/Globulin Ratio 0.4 (1.0-1.7) Vitamin B12 Level 572 pg/mL (247-911) Microbiology 06/23/18 Blood Culture - Preliminary, Resulted NO GROWTH AFTER 2 DAYS Medications Current Medications Albuterol/ Ipratropium (Duoneb) 3 ml 1X ONCE NEB Last administered on 06/23/18at 04:06; Start 06/23/18 at 03:30; Stop 06/23/18 at 03:33; Status DC Dexamethasone Sodium Phosphate (Decadron) 10 mg 1X ONCE IV Last administered on 06/23/18at 04:33; Start 06/23/18 at 03:30; Stop 06/23/18 at 03:33; Status DC Aspirin (Alexander Aspirin) 325 mg 1X ONCE PO Last administered on 06/23/18at 04:33; Start 06/23/18 at 04:15; Stop 06/23/18 at 04:16; Status DC Sodium Chloride 1,000 ml @ 1,000 mls/hr 1X ONCE IV ; Start 06/23/18 at 04:15; Stop 06/23/18 at 04:33; Status DC Ondansetron HCl (Zofran) 4 mg PRN Q8HRS PRN IV NAUSEA/VOMITING; Start 06/23/18 at 04:15; Stop 06/24/18 at 04:14; Status DC Acetaminophen (Tylenol) 650 mg PRN Q4HRS PRN PO FEVER; Start 06/23/18 at 04:15; Stop 06/24/18 at 04:14; Status DC Albuterol/ Ipratropium (Duoneb) 3 ml RTQID NEB Last administered on 06/23/18 08:01; Start 06/23/18 at 08:00; Stop 06/23/18 at 10:57; Status DC Insulin Human Lispro (HumaLOG) 0-5 UNITS TIDWMEALS SQ Last administered on 06/25/18 08:39; Start 06/23/18 at 08:00 Dextrose (Dextrose 50%-Water Syringe) 12.5 gm PRN Q15MIN PRN IV SEE COMMENTS; Start 06/23/18 at 04:15 Morphine Sulfate (Morphine Sulfate) 4 mg PRN Q4HRS PRN IV MODERATE PAIN 4-6 Last administered on 06/24/18 10:43; Start 06/23/18 at 04:15 Iohexol (Omnipaque 350 Mg/ml) 100 ml 1X ONCE IV Last administered on 06/23/18 04:58; Start 06/23/18 at 05:00; Stop 06/23/18 at 05:01; Status DC Info (CONTRAST GIVEN -- Rx MONITORING) 1 each PRN DAILY PRN MC SEE COMMENTS; Start 06/23/18 at 05:00; Stop 06/25/18 at 04:59; Status DC Piperacillin Sod/ Tazobactam Sod 4.5 gm/Sodium Chloride 100 ml @ 200 mls/hr 1X ONCE IV Last administered on 06/23/18 06:12; Start 06/23/18 at 06:00; Stop 06/23/18 at 06:29; Status DC Vancomycin HCl 2 gm/Sodium Chloride 500 ml @ 250 mls/hr 1X ONCE IV Last administered on 06/23/18at 08:02; Start 06/23/18 at 06:00; Stop 06/23/18 at 07:59; Status DC Ipratropium Andrew (Atrovent) 0.5 mg RTQID NEB Last administered on 06/25/18 09:12; Start 06/23/18 at 12:00 Famotidine (Pepcid Vial) 20 mg BID IVP Last administered on 06/25/18 09:27; Start 06/23/18 at 21:00 Vancomycin HCl (Vanco Per Pharmacy) 1 each PRN DAILY PRN MC SEE COMMENTS Last administered on 06/25/18at 09:32; Start 06/23/18 at 11:45 Piperacillin Sod/ Tazobactam Sod 3.375 gm/Sodium Chloride 50 ml @ 100 mls/hr Q6HRS IV Last administered on 06/25/18 05:55; Start 06/23/18 at 12:00 Vancomycin HCl 1.5 gm/Sodium Chloride 500 ml @ 250 mls/hr Q24H IV Last administered on 06/24/18 08:53; Start 06/24/18 at 08:00 Vancomycin HCl (Vancomycin Trough Level) 1 each 1X ONCE MC ; Start 06/25/18 at 07:30; Stop 06/25/18 at 07:31; Status DC Aspirin (Ecotrin) 81 mg DAILYWBKFT PO Last administered on 06/25/18 09:26; Start 06/23/18 at 18:15 Digoxin (Lanoxin) 125 mcg DAILY PO Last administered on 06/25/18 09:26; Start 06/24/18 at 09:00 Furosemide (Lasix) 40 mg DAILY PO Last administered on 06/24/18 08:56; Start 06/24/18 at 09:00; Stop 06/24/18 at 12:27; Status DC Gabapentin (Neurontin) 300 mg DAILY PO Last administered on 06/25/18 09:27; Start 06/24/18 at 09:00 Lisinopril (Prinivil) 20 mg DAILY PO Last administered on 06/24/18 08:54; Start 06/24/18 at 09:00; Stop 06/24/18 at 12:27; Status DC Metoprolol Tartrate (Lopressor) 50 mg BID PO Last administered on 06/25/18 09:26; Start 06/23/18 at 21:00 Atorvastatin Calcium (Lipitor) 80 mg QHS PO Last administered on 06/23/18 21:19; Start 06/23/18 at 21:00 Hydralazine HCl (Apresoline) 10 mg TID PO Last administered on 06/25/18 09:28; Start 06/23/18 at 21:00 Levetiracetam (Keppra) 1,250 mg BID PO Last administered on 06/25/18 09:28; Start 06/23/18 at 21:00 Multivitamins (Thera M Plus) 1 tab DAILY PO Last administered on 06/25/18 09:27; Start 06/24/18 at 09:00 Potassium Chloride (Klor-Con) 20 meq DAILYWBKFT PO Last administered on 06/25/18 09:26; Start 06/23/18 at 18:30 Risperidone (RisperDAL) 1 mg QHS PO Last administered on 06/23/18 21:19; Start 06/23/18 at 21:00 Zonisamide (Zonegran) 400 mg DAILY PO Last administered on 06/25/18 09:27; Start 06/23/18 at 18:00 Warfarin Sodium (Coumadin Per Pharmacy) 1 each PRN DAILY PRN MC SEE COMMENTS Last administered on 06/25/18 09:13; Start 06/23/18 at 18:30 Warfarin Sodium (Coumadin) 4 mg DAILY16 PO Last administered on 06/23/18 21:19; Start 06/23/18 at 19:30; Stop 06/24/18 at 15:48; Status DC Budesonide (Pulmicort) 0.5 mg RTBID NEB Last administered on 06/25/18 09:12; Start 06/24/18 at 08:00 Lisinopril (Prinivil) 40 mg DAILY PO Last administered on 06/25/18 09:27; Start 06/25/18 at 09:00 Furosemide (Lasix) 40 mg DAILY IVP Last administered on 06/25/18 09:27; Start 06/24/18 at 12:30 Lactobacillus Rhamnosus (Culturelle) 1 cap BID PO Last administered on 06/25/18 09:26; Start 06/24/18 at 21:00 Warfarin Sodium (Coumadin - No Dose Today) 1 each 1X WARF ONCE MC Last administered on 06/24/18at 15:59; Start 06/24/18 at 16:00; Stop 06/24/18 at 16:01; Status DC Warfarin Sodium (Coumadin - No Dose Today) 1 each 1X WARF ONCE MC ; Start 06/25/18 at 16:00; Stop 06/25/18 at 16:01 Vancomycin HCl (Vancomycin Trough Level) 1 each 1X ONCE MC ; Start 06/26/18 at 07:30; Stop 06/26/18 at 07:31 Active Scripts Active Daptomycin 350 Mg Vial 350 Mg IV DAILY 10 Days Cephalexin 250 Mg Capsule 500 Mg PO QID 3 Days Percocet 5-325 Mg Tablet (Oxycodone/Acetaminophen) 1 Each Tablet 1 Tab PO PRN Q4HRS PRN 6 Days Digoxin 125 Mcg Tablet 125 Mcg PO DAILY Furosemide 40 Mg Tablet 40 Mg PO DAILY Metoprolol Tartrate 50 Mg Tablet 50 Mg PO BID [Warfarin Sodium] 1 EACH Each 1 Each MC PRN DAILY PRN Lisinopril 20 Mg Tablet 20 Mg PO DAILY Duoneb 0.5-3(2.5) Mg/3 Ml (Albuterol/Ipratropium) 3 Ml Ampul.neb 3 Ml NEB Q4HRS W/A 30 Days Hydralazine Hcl 10 Mg Tablet 10 Mg PO TID Reported Zonisamide 100 Mg Capsule 400 Mg PO DAILY Multivitamins (Multivitamin) 1 Each Tablet 1 Tab PO DAILY Levetiracetam 250 Mg Tablet 1,250 Mg PO BID Atorvastatin Calcium 80 Mg Tablet 1 Tab PO DAILY Acetaminophen 500 Mg Tablet 1 Tab PO PRN Q6HRS PRN Albuterol Sulfate Hfa Inhaler (Albuterol Sulfate) 8.5 Gm Hfa.aer.ad 2 Puff IH PRN Q6HRS PRN Aspirin Ec (Aspirin) 325 Mg Tablet.dr 81 Mg PO DAILY Warfarin Sodium 5 Mg Tablet 6 Mg PO DAILY Warfarin Sodium 2.5 Mg Tablet 2.5 Mg PO 3X/WEEK monday,monday, Gabapentin (Gabapentin) 300 Mg Capsule 300 Mg PO DAILY Risperidone 1 Mg Tablet 1 Mg PO HS Novolog (Insulin Aspart) 100 Unit/1 Ml Vial 10 Unit SQ DAILYAC Potassium 99 Mg Tablet 20 Meq PO DAILY Vitals/I & O Vital Sign - Last 24 Hours 06/24/18 06/24/18 06/24/18 06/24/18 11:00 11:38 14:55 15:41 Temp 98.3 98.3 Pulse 67 68 Resp 12 7 B/P (MAP) 147/67 (93) 129/58 (81) Pulse Ox 99 98 98 99 O2 Delivery Nasal Cannula Nasal Cannula Nasal Cannula Nasal Cannula O2 Flow Rate 2.0 2.0 98.0 2.0 06/24/18 06/24/18 06/24/18 06/24/18 19:00 19:57 19:57 20:00 Temp 98.3 98.3 Pulse 68 Resp 10 B/P (MAP) 101/40 (60) Pulse Ox 99 99 O2 Delivery Nasal Cannula Nasal Cannula Nasal Cannula Nasal Cannula O2 Flow Rate 2.0 2.0 2.0 2.0 06/24/18 06/24/18 06/25/18 06/25/18 20:45 23:38 03:21 07:30 Temp 97.4 97.6 97.7 97.4 97.6 97.7 Pulse 68 67 67 69 Resp 7 8 9 18 B/P (MAP) 103/49 (67) 122/45 (70) 110/43 (65) 135/53 (80) Pulse Ox 99 99 98 O2 Delivery Nasal Cannula Nasal Cannula Nasal Cannula Nasal Cannula O2 Flow Rate 2.0 2.0 2.0 2.0 06/25/18 06/25/18 06/25/18 06/25/18 09:13 09:26 09:26 09:27 Pulse 69 69 69 B/P (MAP) 135/53 135/53 135/53 Pulse Ox 98 O2 Delivery Nasal Cannula O2 Flow Rate 2.0 06/25/18 09:28 Pulse 69 B/P (MAP) 135/53 Intake and Output 06/24/18 06/24/18 06/25/18 15:00 23:00 07:00 Intake Total 200 ml 0 ml Output Total 2200 ml 500 ml Balance -2000 ml -500 ml KEV HATCH MD June 25, 2018 09:50
[2018-06-25 10:03] LABS: VANC TR 24.5 mcg/mL (10.0-20.0)
[2018-06-25 11:00] VITALS: BP 118/54
--- NOTE | 2018-06-25 13:14 | PDOC ---
MATT CIFUENTES PRUDENCE 06/25/18 1314: CARDIO Progress Notes Date and Time Date of Service 06/25/18 Time of Evaluation 1315 Subjective Subjective: No Chest Pain, No Palpitations, Other (SOA improved) Vitals Vitals Vital Signs Date Time Temp Pulse Resp B/P (MAP) Pulse Ox O2 Delivery O2 Flow Rate FiO2 06/25/18 11:00 69 10 118/54 (75) 100 Nasal Cannula 2.0 06/25/18 07:30 97.7 97.7 Weight Weight [ ] Input and Output Intake and Output Intake and Output 06/25/18 07:00 Intake Total 200 ml Output Total 2700 ml Balance -2500 ml Intake Oral 200 ml Output Urine Total 2700 ml # Bowel Movements 1 Laboratory Labs Laboratory Tests Test 06/24/18 13:35 06/24/18 16:55 06/24/18 17:03 06/24/18 21:09 Prothrombin Time 33.7 SEC (11.7-14.0) Prothromb Time International Ratio 3.3 (0.8-1.1) Glucose (Fingerstick) 235 mg/dL (70-99) 232 mg/dL (70-99) 245 mg/dL (70-99) Test 06/25/18 06:05 06/25/18 08:35 06/25/18 08:50 White Blood Count 9.1 x10^3/uL (4.0-11.0) Red Blood Count 2.87 x10^6/uL (4.30-5.70) Hemoglobin 7.6 g/dL (13.0-17.5) Hematocrit 24.2 % (39.0-53.0) Mean Corpuscular Volume 84 fL (79-100) Mean Corpuscular Hemoglobin 27 pg (25-35) Mean Corpuscular Hemoglobin Concent 32 g/dL (31-37) Red Cell Distribution Width 17.0 % (11.5-14.5) Platelet Count 254 x10^3/uL (140-400) Neutrophils (%) (Auto) 81 % (31-73) Lymphocytes (%) (Auto) 7 % (24-48) Monocytes (%) (Auto) 9 % (0-9) Eosinophils (%) (Auto) 2 % (0-3) Basophils (%) (Auto) 0 % (0-3) Neutrophils # (Auto) 7.4 x10^3uL (1.8-7.7) Lymphocytes # (Auto) 0.7 x10^3/uL (1.0-4.8) Monocytes # (Auto) 0.8 x10^3/uL (0.0-1.1) Eosinophils # (Auto) 0.2 x10^3/uL (0.0-0.7) Basophils # (Auto) 0.0 x10^3/uL (0.0-0.2) Prothrombin Time 36.3 SEC (11.7-14.0) Prothromb Time International Ratio 3.6 (0.8-1.1) Sodium Level 143 mmol/L (136-145) Potassium Level 3.3 mmol/L (3.5-5.1) Chloride Level 106 mmol/L (98-107) Carbon Dioxide Level 31 mmol/L (21-32) Anion Gap 6 (6-14) Blood Urea Nitrogen 19 mg/dL (8-26) Creatinine 1.2 mg/dL (0.7-1.3) Estimated GFR (Cockcroft-Gault) 58.9 BUN/Creatinine Ratio 16 (6-20) Glucose Level 253 mg/dL (70-99) Calcium Level 8.1 mg/dL (8.5-10.1) Total Bilirubin 0.3 mg/dL (0.2-1.0) Aspartate Amino Transf (AST/SGOT) 26 U/L (15-37) Alanine Aminotransferase (ALT/SGPT) 30 U/L (16-63) Alkaline Phosphatase 80 U/L (46-116) Total Protein 6.3 g/dL (6.4-8.2) Albumin 1.8 g/dL (3.4-5.0) Albumin/Globulin Ratio 0.4 (1.0-1.7) Vitamin B12 Level 572 pg/mL (247-911) Glucose (Fingerstick) 200 mg/dL (70-99) Vancomycin Level Trough 24.5 mcg/mL (10.0-20.0) Vancomycin Last Dose Date 06/24/18 Vancomycin Last Dose Time 0830 Microbiology Micro Microbiology 06/23/18 Blood Culture - Preliminary, Resulted NO GROWTH AFTER 2 DAYS Physical Exam HEENT: Neck Supple W Full Motion Chest: Symmetric LUNGS: Other (diminished bases) Heart: S1S2, irregularly irregular Abdomen: Soft N/T Extremities: Other (1-2+ LLE edema. Right BKA) Neurology: alert, follow commands Assessment Assessment 1. Acute on chronic hypoxic respiratory failure secondary to acute COPD exacerbation, pneumonia and mild acute on chronic systolic heart failure. 2. Acute on chronic systolic heart failure; better compensated following IV diuresis 3. Coronary artery disease s/p coronary artery bypass surgery (AGUILAR to LAD, SVG to D2, SVG to OM and SVG to PDA) in 2012. Stable. CP free. 4. Mild troponin elevation; peak 0.06. Most probably demand ischemia. Echo 05/2018 showed LVEF 35-40%. 5. Bioprosthetic AVR, stable. Recent echo with normal function. 6. Permanent AFIB; rate cotrolled, but having intermittent pauses/bradycardia. warfarin for stroke prevention. INR 3.6 5. Hypertension: controlled 6. PAD s/p RBKA and left toe amputations, appears stable clinically 7. DM2: per IM 8. Hyperlipidemia; statin therapy Recommendations Mild diuresis Continue secondary prevention; ASA, satin, BB, ACEi Decrease metoprolol due to intermittent pauses/bradycardia Warfarin for stroke prevention Consider outpatient event monitor Lung optimization as per pulmonary. Supportive care. ADRI SARGENT MD 06/26/18 0658: CARDIO Progress Notes Assessment Assessment Patient seen and examined 06/25/18. Agree with ALLERGIST/PEDIATRIC PULMONOLOGIST's assessment and plan. Acute on chronic systolic heart failure better compensated with diuresis Slight troponin elevation probably demand ischemia CAD status clinically stable overall Agree with decreasing metoprolol dose secondary to bradycardia on telemetry Continue current treatment for acute COPD exacerbation/pneumonia per pulmonary team MATT CIFUENTES APRN June 25, 2018 13:14 ADRI SARGENT MD June 26, 2018 06:58
[2018-06-25 14:45] VITALS: BP 114/45
--- NOTE | 2018-06-25 14:50 | NUR ---
SS following for discharge planning. SS received notification that pt was from [facility], ; fax [phone]. 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 Pt will need PT/OT evaluations for skilled authorization.
--- NOTE | 2018-06-25 15:20 | NUR ---
wound care patient seen per wound care consult. see wound assessment. patient familiar to the wound care team from previous system. the patient has a DFU to the left lateral ankle, the wound was cleaned, and redressed with Xeroform gauze and a foam dressing, recommendations of changing every 3 days. patient also has a skin tear to the right wrist and left shoulder, these areas were cleaned and redressed with Xeroform gauze and a foam dressing recommendations of changing every 3 days. patient has DTI to the coccyx area the wound was cleaned and redressed with Calazime, recommendations of applying as needed. patient needs to be turning every 2 hours, patient turned to the left side at this time. patient has an abrasion to the left hip the area was cleaned and redressed with a foam dressings. patient has a pink blanchable left heel, ordered a Heelmedix boot at this time. patient currently on an ICU bed. wound care will continue to f/u.
[2018-06-25] MEDS ORDERED: POTASSIUM CHLORIDE 20 MEQ TABLET.ER. PO ONE (15:45)
--- NOTE | 2018-06-25 17:05 | PDOC ---
PROGRESS NOTES Assessment Assessment Metabolic encephalopathy. Seizure. Respiratory distress. Leukocytosis. Necrotic right toes, s/p right BKA. AFib. CAD, s/p CABG. CHF. DM. HTN. HLD. 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 RECOMMENDATIONS/PLAN: EEG. Treat medical diseases. OT/PT. HCT on 05/22/18 and 06/24/18: negative for acute findings. HISTORY OF THE PRESENT ILLNESS: This is a 78-year-old male who was discharged 06/22 after treatment for pneumonia and sepsis. This afternoon he became dyspneic with SpO2 in low 80s, so he was brought back to ER. On arrival to ER his saturations are above 95% on 3 L by nasal canula which is at his baseline O2 requirement. Received breathing treatment in ED with improvement in his respiratory effort. He has been having M S changes, further declined cognitive function, so he was hospitalized and neurology was requested for consultation. Past Medical History A-Fib, Anemia, Arthritis, CAD, CHF, COPD, Depression, Diabetes-Type II, High Cholesterol, Hypertension, MRSA, Seizure, Stroke, bronchiolitis obliterans, TREMORS,NECROTIC RT TOES, RT HEEL, LT OUTER ANKLE Cardiovascular: AFIB, HTN, [place] Pulmonary: Asthma, Bronchitis, COPD, Pneumonia, Other CENTRAL NERVOUS SYSTEM: CVA, Periperal neuropathy GI: Other Heme/Onc: No pertinent hx Hepatobiliary: No pertinent hx Psych: Depression Musculoskeletal: Osteoarthritis Rheumatologic: No pertinent hx Infectious disease: No pertinent hx Renal/: Other Endocrine: Diabetes Past Surgical History Appendectomy, Coronary Bypass Surgery, MULTIPLE TOE AMP, ROTATOR CUFF, BOVINE VALVE, LT HIP Family History Coronary Artery Disease, HLD, Hypertension Social History Smoke: No ALCOHOL: none Drugs: None Allergies Coded Allergies: Fentanyl (Verified Allergy, Intermediate, 06/17/18) Per pt : agitation and difficulty awakening pt after I S O L A T I O N *CONTACT* (Verified Allergy, Unknown, 05/23/18), mrsa MEDICATIONS: Refer to [facility] REVIEW OF SYSTEMS: Constitutional: No malnutrition, weight loss, cachexia. Head: No traumatic brain or head injury. Skin: No edema, or rash. Ear: No infection. Eyes: No vision loss or color blindness. Nose: No bleeding or purulent discharges. Hearing: Hearing decrease. Neck: No injury. Cardiac: CAD, s/p CABG, AFib, HTN, HLD. Pulmonary: No COPD. GI: No GI ulcer, GI bleeding. Urinary/genital: UTI. Endocrinologic: Diabetes Mellitus, obesity. Skeletomuscular: Generalized weakness. Neurological: see HP. Psychiatric: Denies drug use/abuse. Otherwise, not [id number] review of systems. PHYSICAL EXAMINATION: General appearance is in subacute distress. HEENT: Normocephalic and nontraumatic. Eyes, nose, ears, and throat are unremarkable. Neck is supple. No lymphadenopathy. No crepitus. Cardiovascular: S1, S2, regular rate and rhythm. Pulmonary: Decreased to auscultation bilaterally. Abdomen: Bowel sounds are positive. Extremities: No rash or edema. No restriction of range of motion NEUROLOGICAL EXAMINATION: Mildly lethargic. Not oriented to time, place but knew his . PERRL. EOMI. CN: no focal findings. Muscle tone: Increased in left side. Within normal at right side. Muscle strength: 2 left side, 4 right side. DTR: 2 Plantar reflex: Neutral response left side, BKA right side. Gait: not able to walk. Sensory exam: no acute abnormal findings. Not able to access cerebellar signs due to not follow commands. F-T-N test not performed. Objective Objective Vital Signs Date Time Temp Pulse Resp B/P (MAP) Pulse Ox O2 Delivery O2 Flow Rate FiO2 06/25/18 16:34 100 Nasal Cannula 2.0 06/25/18 14:45 98.0 53 12 114/45 (68) 98.0 Intake and Output 06/25/18 07:00 Intake Total 200 ml Output Total 2700 ml Balance -2500 ml Intake Oral 200 ml Output Urine Total 2700 ml # Bowel Movements 1 Vitals Signs Vitals VS - Last 72 Hours, by Label Date Time Temp Pulse Resp B/P (MAP) Pulse Ox O2 Delivery O2 Flow Rate FiO2 06/25/18 16:34 100 Nasal Cannula 2.0 06/25/18 14:45 98.0 53 12 114/45 (68) 98 Nasal Cannula 2.0 98.0 06/25/18 13:20 99 Nasal Cannula 2.0 06/25/18 11:00 69 10 118/54 (75) 100 Nasal Cannula 2.0 06/25/18 09:28 69 135/53 06/25/18 09:27 69 135/53 06/25/18 09:26 69 135/53 06/25/18 09:26 69 135/53 06/25/18 09:13 98 Nasal Cannula 2.0 06/25/18 08:00 Nasal Cannula 2.0 06/25/18 07:30 97.7 69 18 135/53 (80) 98 Nasal Cannula 2.0 97.7 06/25/18 03:21 97.6 67 9 110/43 (65) 99 Nasal Cannula 2.0 97.6 06/24/18 23:38 97.4 67 8 122/45 (70) 99 Nasal Cannula 2.0 97.4 06/24/18 20:45 68 7 103/49 (67) Nasal Cannula 2.0 06/24/18 20:00 Nasal Cannula 2.0 06/24/18 19:57 99 Nasal Cannula 2.0 06/24/18 19:57 99 Nasal Cannula 2.0 06/24/18 19:00 98.3 68 10 101/40 (60) Nasal Cannula 2.0 98.3 06/24/18 15:41 99 Nasal Cannula 2.0 06/24/18 14:55 98.3 68 7 129/58 (81) 98 Nasal Cannula 98.0 98.3 06/24/18 11:38 98 Nasal Cannula 2.0 06/24/18 11:00 67 12 147/67 (93) 99 Nasal Cannula 2.0 06/24/18 08:55 69 163/57 06/24/18 08:54 69 163/57 06/24/18 08:54 69 163/57 06/24/18 08:54 70 06/24/18 08:01 100 Nasal Cannula 3.0 06/24/18 08:00 Nasal Cannula 3.0 06/24/18 07:00 98.4 69 15 163/57 (92) 100 Nasal Cannula 2.0 98.4 Laboratory Laboratory Laboratory Tests Test 06/24/18 17:03 06/24/18 21:09 06/25/18 06:05 06/25/18 08:35 Glucose (Fingerstick) 232 mg/dL (70-99) 245 mg/dL (70-99) 200 mg/dL (70-99) White Blood Count 9.1 x10^3/uL (4.0-11.0) Red Blood Count 2.87 x10^6/uL (4.30-5.70) Hemoglobin 7.6 g/dL (13.0-17.5) Hematocrit 24.2 % (39.0-53.0) Mean Corpuscular Volume 84 fL (79-100) Mean Corpuscular Hemoglobin 27 pg (25-35) Mean Corpuscular Hemoglobin Concent 32 g/dL (31-37) Red Cell Distribution Width 17.0 % (11.5-14.5) Platelet Count 254 x10^3/uL (140-400) Neutrophils (%) (Auto) 81 % (31-73) Lymphocytes (%) (Auto) 7 % (24-48) Monocytes (%) (Auto) 9 % (0-9) Eosinophils (%) (Auto) 2 % (0-3) Basophils (%) (Auto) 0 % (0-3) Neutrophils # (Auto) 7.4 x10^3uL (1.8-7.7) Lymphocytes # (Auto) 0.7 x10^3/uL (1.0-4.8) Monocytes # (Auto) 0.8 x10^3/uL (0.0-1.1) Eosinophils # (Auto) 0.2 x10^3/uL (0.0-0.7) Basophils # (Auto) 0.0 x10^3/uL (0.0-0.2) Prothrombin Time 36.3 SEC (11.7-14.0) Prothromb Time International Ratio 3.6 (0.8-1.1) Sodium Level 143 mmol/L (136-145) Potassium Level 3.3 mmol/L (3.5-5.1) Chloride Level 106 mmol/L (98-107) Carbon Dioxide Level 31 mmol/L (21-32) Anion Gap 6 (6-14) Blood Urea Nitrogen 19 mg/dL (8-26) Creatinine 1.2 mg/dL (0.7-1.3) Estimated GFR (Cockcroft-Gault) 58.9 BUN/Creatinine Ratio 16 (6-20) Glucose Level 253 mg/dL (70-99) Calcium Level 8.1 mg/dL (8.5-10.1) Total Bilirubin 0.3 mg/dL (0.2-1.0) Aspartate Amino Transf (AST/SGOT) 26 U/L (15-37) Alanine Aminotransferase (ALT/SGPT) 30 U/L (16-63) Alkaline Phosphatase 80 U/L (46-116) Total Protein 6.3 g/dL (6.4-8.2) Albumin 1.8 g/dL (3.4-5.0) Albumin/Globulin Ratio 0.4 (1.0-1.7) Vitamin B12 Level 572 pg/mL (247-911) Test 06/25/18 08:50 06/25/18 12:23 Magnesium Level 2.1 mg/dL (1.8-2.4) Vancomycin Level Trough 24.5 mcg/mL (10.0-20.0) Vancomycin Last Dose Date 06/24/18 Vancomycin Last Dose Time 0830 Glucose (Fingerstick) 194 mg/dL (70-99) Microbiology 06/23/18 Blood Culture - Preliminary, Resulted NO GROWTH AFTER 2 DAYS Medication Medications Current Medications Lactobacillus Rhamnosus (Culturelle) 1 cap BID PO Last administered on 06/25/18at 09:26; Start 06/24/18 at 21:00 Lisinopril (Prinivil) 40 mg DAILY PO Last administered on 06/25/18at 09:27; Start 06/25/18 at 09:00 Oxycodone/ Acetaminophen (Percocet 5/325) 1 tab PRN Q4HRS PRN PO PAIN; Start 06/25/18 at 15:00 Potassium Chloride (Klor-Con) 20 meq 1X ONCE PO ; Start 06/25/18 at 15:45; Stop 06/25/18 at 15:46; Status DC Potassium Chloride (Klor-Con) 20 meq DAILYWBKFT PO ; Start 06/26/18 at 08:00; Status Cancel Vancomycin HCl (Vancomycin Random Level) 1 each 1X ONCE MC ; Start 06/25/18 at 19:00; Stop 06/25/18 at 19:01 Vancomycin HCl (Vancomycin Trough Level) 1 each 1X ONCE MC Last administered on 06/25/18at 10:09; Start 06/25/18 at 07:30; Stop 06/25/18 at 07:31; Status DC Warfarin Sodium (Coumadin - No Dose Today) 1 each 1X WARF ONCE MC ; Start 06/25/18 at 16:00; Stop 06/25/18 at 16:01; Status DC Comment Review of Relevant I have reviewed the following items navi (where applicable) has been applied. LIA MALIN MD June 25, 2018 17:05
[2018-06-25] MEDS: oxyCODONE/APAP 5/325 1 TAB TABLET PO PRN (17:41)
[2018-06-25] MEDS ORDERED: VANCOMYCIN RANDOM LEVEL. MC ONE (19:00)
[2018-06-25 19:47] VITALS: BP 125/55
[2018-06-25] MEDS: ATORVASTATIN CALCIUM 40 MG TABLET. PO SCH (20:52)
[2018-06-25] MEDS: risperiDONE 1 MG TABLET. PO SCH (20:54)
[2018-06-25] MEDS: METOPROLOL TART IMMED RELEASE 25 MG TABLET. PO SCH (20:54)
[2018-06-25 22:11] LABS: BILIRUBIN,URINE NEGATIVE (NEG); CLARITY,URINE CLEAR; COLOR,URINE YELLOW; NITRITE,URINE NEGATIVE (NEG); PH,URINE 6.5; PROTEIN,URINE NEGATIVE (NEG-TRACE)
[2018-06-25 22:16] LABS: BACTERIA,URINE 0 /HPF (0-FEW); RBC,URINE 0 /HPF (0-2); SQUAMOUS EPITHELIAL CELL,UR OCC /LPF; WBC,URINE OCC /HPF (0-4)
[2018-06-25 22:59] VITALS: BP 128/63
[2018-06-26] VITALS (14 sets, daily range): BP systolic 112–158; BP diastolic 57–68
[2018-06-26] MEDS: oxyCODONE/APAP 5/325 1 TAB TABLET PO PRN
[2018-06-26] MEDS: VANCOMYCIN 1 GM in IV NORMAL SALINE 250ML 250 ML IV SCH (00:20)
[2018-06-26 04:28] LABS: PROTHROMBIN TIME PATIENT 40.5 SEC (11.7-14.0)
[2018-06-26 04:41] LABS: BASO % 0 % (0-3); EOS # 0.5 x10^3/uL (0.0-0.7); EOS % 6 % (0-3); HEMATOCRIT 22.4 % (39.0-53.0); LYMPH % 11 % (24-48); MEAN CORPUSCULAR HEMOGLOBIN 26 pg (25-35); MEAN CORPUSCULAR HGB CONC 31 g/dL (31-37); MEAN CORPUSCULAR VOLUME 84 fL (79-100); MONO # 0.9 x10^3/uL (0.0-1.1); MONO % 10 % (0-9); NEUT # 6.5 x10^3uL (1.8-7.7); NEUT % 73 % (31-73); PLATELET COUNT 245 x10^3/uL (140-400); RED BLOOD COUNT 2.67 x10^6/uL (4.30-5.70); RED CELL DISTRIBUTION WIDTH 16.8 % (11.5-14.5); WHITE BLOOD COUNT 8.9 x10^3/uL (4.0-11.0)
[2018-06-26 04:52] LABS: ALBUMIN 1.6 g/dL (3.4-5.0); ALBUMIN/GLOBULIN RATIO 0.4 (1.0-1.7); CREATININE 1.1 mg/dL (0.7-1.3); GFR 65.1; POTASSIUM 3.9 mmol/L (3.5-5.1); TOTAL BILIRUBIN 0.3 mg/dL (0.2-1.0); TOTAL PROTEIN 5.8 g/dL (6.4-8.2)
[2018-06-26] MEDS: PIPERACILLIN/TAZOBACTAM 3.375 GM in IV NORMAL SALINE 50ML 50 ML IV SCH (05:35)
[2018-06-26] MEDS: IPRATROPIUM BROMIDE 0.5 MG/2.5 ML NEBU. NEB SCH ×4 (07:57→20:59)
[2018-06-26] MEDS: BUDESONIDE 0.5 MG/2 ML NEBU. NEB SCH ×2 (07:57→20:59)
[2018-06-26] MEDS ORDERED: POTASSIUM CHLORIDE 20 MEQ TABLET.ER. PO SCH (08:00)
[2018-06-26] MEDS: INSULIN LISPRO 300 UNITS/3 ML INSULN.PEN. SQ SCH ×3 (08:00→17:44)
--- NOTE | 2018-06-26 08:05 | PDOC ---
Infectious Disease Note Subjective Subjective pt is awake, comfortable breathing, wants to go home , and says he will stay home, until says ROS ROS no n/v/d/fever/sob Vital Sign Vital Signs Vital Signs Date Time Temp Pulse Resp B/P (MAP) Pulse Ox O2 Delivery O2 Flow Rate FiO2 06/26/18 02:55 98.0 66 19 112/62 (79) 98 Nasal Cannula 2.0 98.0 Physical Exam PHYSICAL EXAM GENERAL: in bed,, alert, HENT: ISMAEL, Oral cavity/pharynx pink, dry. No thrush LUNGS: Clear anteriorly, nonlabored CV: S1 S2, regular ABD: Obese, soft, NT : [place] EXT: 2+ edema left leg. Right BKA stump incision healing well, steri strips in place. SKIN: No rash [employer]: Alert, responding appropriately RUE-PICC (POA) clean Labs Lab Laboratory Tests Test 06/25/18 08:35 06/25/18 08:50 06/25/18 12:23 06/25/18 17:31 Glucose (Fingerstick) 200 mg/dL (70-99) 194 mg/dL (70-99) 211 mg/dL (70-99) Magnesium Level 2.1 mg/dL (1.8-2.4) Vancomycin Level Trough 24.5 mcg/mL (10.0-20.0) Vancomycin Last Dose Date 06/24/18 Vancomycin Last Dose Time 0830 Test 06/25/18 19:10 06/25/18 21:26 06/25/18 22:00 06/26/18 03:55 Random Vancomycin Level 20.8 mcg/mL Glucose (Fingerstick) 199 mg/dL (70-99) Urine Color Yellow Urine Clarity Clear Urine pH 6.5 Urine Specific [place] 1.025 Urine Protein Negative mg/dL (NEG-TRACE) Urine Glucose (UA) Negative mg/dL (NEG) Urine Ketones (Stick) Negative mg/dL (NEG) Urine Blood Negative (NEG) Urine Nitrite Negative (NEG) Urine Bilirubin Negative (NEG) Urine Urobilinogen Dipstick 1.0 mg/dL (0.2 mg/dL) Urine Leukocyte Esterase Negative (NEG) Urine RBC 0 /HPF (0-2) Urine WBC Occ /HPF (0-4) Urine Squamous Epithelial Cells Occ /LPF Urine Bacteria 0 /HPF (0-FEW) Urine Mucus Slight /LPF White Blood Count 8.9 x10^3/uL (4.0-11.0) Red Blood Count 2.67 x10^6/uL (4.30-5.70) Hemoglobin 7.0 g/dL (13.0-17.5) Hematocrit 22.4 % (39.0-53.0) Mean Corpuscular Volume 84 fL (79-100) Mean Corpuscular Hemoglobin 26 pg (25-35) Mean Corpuscular Hemoglobin Concent 31 g/dL (31-37) Red Cell Distribution Width 16.8 % (11.5-14.5) Platelet Count 245 x10^3/uL (140-400) Neutrophils (%) (Auto) 73 % (31-73) Lymphocytes (%) (Auto) 11 % (24-48) Monocytes (%) (Auto) 10 % (0-9) Eosinophils (%) (Auto) 6 % (0-3) Basophils (%) (Auto) 0 % (0-3) Neutrophils # (Auto) 6.5 x10^3uL (1.8-7.7) Lymphocytes # (Auto) 1.0 x10^3/uL (1.0-4.8) Monocytes # (Auto) 0.9 x10^3/uL (0.0-1.1) Eosinophils # (Auto) 0.5 x10^3/uL (0.0-0.7) Basophils # (Auto) 0.0 x10^3/uL (0.0-0.2) Prothrombin Time 40.5 SEC (11.7-14.0) Prothromb Time International Ratio 4.2 (0.8-1.1) Sodium Level 141 mmol/L (136-145) Potassium Level 3.9 mmol/L (3.5-5.1) Chloride Level 105 mmol/L (98-107) Carbon Dioxide Level 30 mmol/L (21-32) Anion Gap 6 (6-14) Blood Urea Nitrogen 19 mg/dL (8-26) Creatinine 1.1 mg/dL (0.7-1.3) Estimated GFR (Cockcroft-Gault) 65.1 BUN/Creatinine Ratio 17 (6-20) Glucose Level 187 mg/dL (70-99) Calcium Level 8.0 mg/dL (8.5-10.1) Total Bilirubin 0.3 mg/dL (0.2-1.0) Aspartate Amino Transf (AST/SGOT) 21 U/L (15-37) Alanine Aminotransferase (ALT/SGPT) 26 U/L (16-63) Alkaline Phosphatase 72 U/L (46-116) Total Protein 5.8 g/dL (6.4-8.2) Albumin 1.6 g/dL (3.4-5.0) Albumin/Globulin Ratio 0.4 (1.0-1.7) Micro Microbiology 06/23/18 Blood Culture - Preliminary, Resulted NO GROWTH AFTER 2 DAYS Objective Assessment Persistent right perihilar infiltrate and pleural effusions Leukocytosis, had been on prednisone at [place] h/o E. coli UTI, discharged on Keflex through 06/24 h/o MRSA bacteremia with sepsis from 05/18. Discharged on Dapto till 07/02. CPK 31 -CRYSTAL done no vegetations 05/21; BC from 05/20 & onward were neg Acute on chronic CHF h/o MRSA and Enterobacter ( R Augmentin/cefuroxime) infection h/o PSA ( R quinolones & I imipenem) infection Bioprosthetic aortic valve A- fib, anticoagulation on warfarin Diabetes Type II Seizure disorder, on Keppra H/o cholecystitis - U/S 06/18 Sludge in the gallbladder. No cholelithiasis or cholecystitis. No biliary dilatation visit is for CHF Plan Plan of Care Continue vancomycin and d/c Zosyn Monitor WBC/temp and renal function closely Procalcitonin 0.40 BC neg so far PICC maintenance care Leg elevation may need to revisit hospice at home, Pat to work on it d/w DANNY CATES,DAYANA West MD June 26, 2018 08:05
--- NOTE | 2018-06-26 09:04 | PDOC ---
PULMONARY PROGRESS NOTES Subjective PT NOT SOA NO CHEST PAIN PT WANTS TO GO HOME WITH Vitals Vital Signs Date Time Temp Pulse Resp B/P (MAP) Pulse Ox O2 Delivery O2 Flow Rate FiO2 06/26/18 08:35 97.9 99 11 151/61 97.9 06/26/18 07:57 98 Nasal Cannula 2.0 ROS: No Nausea, No Chest Pain, No Increase Cough HEENT: Other Lungs: Wheezing, Crackles, Other Cardiovascular: Other (irreg irreg) Abdomen: Soft, Non-tender, Other Neuro Exam: Alert Extremities: Other (edema) Skin: Warm Labs Laboratory Tests Test 06/24/18 11:49 06/24/18 13:35 06/24/18 16:55 06/24/18 17:03 Glucose (Fingerstick) 191 mg/dL (70-99) 235 mg/dL (70-99) 232 mg/dL (70-99) Prothrombin Time 33.7 SEC (11.7-14.0) Prothromb Time International Ratio 3.3 (0.8-1.1) Test 06/24/18 21:09 06/25/18 06:05 06/25/18 08:35 06/25/18 08:50 Glucose (Fingerstick) 245 mg/dL (70-99) 200 mg/dL (70-99) White Blood Count 9.1 x10^3/uL (4.0-11.0) Red Blood Count 2.87 x10^6/uL (4.30-5.70) Hemoglobin 7.6 g/dL (13.0-17.5) Hematocrit 24.2 % (39.0-53.0) Mean Corpuscular Volume 84 fL (79-100) Mean Corpuscular Hemoglobin 27 pg (25-35) Mean Corpuscular Hemoglobin Concent 32 g/dL (31-37) Red Cell Distribution Width 17.0 % (11.5-14.5) Platelet Count 254 x10^3/uL (140-400) Neutrophils (%) (Auto) 81 % (31-73) Lymphocytes (%) (Auto) 7 % (24-48) Monocytes (%) (Auto) 9 % (0-9) Eosinophils (%) (Auto) 2 % (0-3) Basophils (%) (Auto) 0 % (0-3) Neutrophils # (Auto) 7.4 x10^3uL (1.8-7.7) Lymphocytes # (Auto) 0.7 x10^3/uL (1.0-4.8) Monocytes # (Auto) 0.8 x10^3/uL (0.0-1.1) Eosinophils # (Auto) 0.2 x10^3/uL (0.0-0.7) Basophils # (Auto) 0.0 x10^3/uL (0.0-0.2) Prothrombin Time 36.3 SEC (11.7-14.0) Prothromb Time International Ratio 3.6 (0.8-1.1) Sodium Level 143 mmol/L (136-145) Potassium Level 3.3 mmol/L (3.5-5.1) Chloride Level 106 mmol/L (98-107) Carbon Dioxide Level 31 mmol/L (21-32) Anion Gap 6 (6-14) Blood Urea Nitrogen 19 mg/dL (8-26) Creatinine 1.2 mg/dL (0.7-1.3) Estimated GFR (Cockcroft-Gault) 58.9 BUN/Creatinine Ratio 16 (6-20) Glucose Level 253 mg/dL (70-99) Calcium Level 8.1 mg/dL (8.5-10.1) Total Bilirubin 0.3 mg/dL (0.2-1.0) Aspartate Amino Transf (AST/SGOT) 26 U/L (15-37) Alanine Aminotransferase (ALT/SGPT) 30 U/L (16-63) Alkaline Phosphatase 80 U/L (46-116) Total Protein 6.3 g/dL (6.4-8.2) Albumin 1.8 g/dL (3.4-5.0) Albumin/Globulin Ratio 0.4 (1.0-1.7) Vitamin B12 Level 572 pg/mL (247-911) Magnesium Level 2.1 mg/dL (1.8-2.4) Vancomycin Level Trough 24.5 mcg/mL (10.0-20.0) Vancomycin Last Dose Date 06/24/18 Vancomycin Last Dose Time 0830 Test 06/25/18 12:23 06/25/18 17:31 06/25/18 19:10 06/25/18 21:26 Glucose (Fingerstick) 194 mg/dL (70-99) 211 mg/dL (70-99) 199 mg/dL (70-99) Random Vancomycin Level 20.8 mcg/mL Test 06/25/18 22:00 06/26/18 03:55 Urine Color Yellow Urine Clarity Clear Urine pH 6.5 Urine Specific [place] 1.025 Urine Protein Negative mg/dL (NEG-TRACE) Urine Glucose (UA) Negative mg/dL (NEG) Urine Ketones (Stick) Negative mg/dL (NEG) Urine Blood Negative (NEG) Urine Nitrite Negative (NEG) Urine Bilirubin Negative (NEG) Urine Urobilinogen Dipstick 1.0 mg/dL (0.2 mg/dL) Urine Leukocyte Esterase Negative (NEG) Urine RBC 0 /HPF (0-2) Urine WBC Occ /HPF (0-4) Urine Squamous Epithelial Cells Occ /LPF Urine Bacteria 0 /HPF (0-FEW) Urine Mucus Slight /LPF White Blood Count 8.9 x10^3/uL (4.0-11.0) Red Blood Count 2.67 x10^6/uL (4.30-5.70) Hemoglobin 7.0 g/dL (13.0-17.5) Hematocrit 22.4 % (39.0-53.0) Mean Corpuscular Volume 84 fL (79-100) Mean Corpuscular Hemoglobin 26 pg (25-35) Mean Corpuscular Hemoglobin Concent 31 g/dL (31-37) Red Cell Distribution Width 16.8 % (11.5-14.5) Platelet Count 245 x10^3/uL (140-400) Neutrophils (%) (Auto) 73 % (31-73) Lymphocytes (%) (Auto) 11 % (24-48) Monocytes (%) (Auto) 10 % (0-9) Eosinophils (%) (Auto) 6 % (0-3) Basophils (%) (Auto) 0 % (0-3) Neutrophils # (Auto) 6.5 x10^3uL (1.8-7.7) Lymphocytes # (Auto) 1.0 x10^3/uL (1.0-4.8) Monocytes # (Auto) 0.9 x10^3/uL (0.0-1.1) Eosinophils # (Auto) 0.5 x10^3/uL (0.0-0.7) Basophils # (Auto) 0.0 x10^3/uL (0.0-0.2) Prothrombin Time 40.5 SEC (11.7-14.0) Prothromb Time International Ratio 4.2 (0.8-1.1) Sodium Level 141 mmol/L (136-145) Potassium Level 3.9 mmol/L (3.5-5.1) Chloride Level 105 mmol/L (98-107) Carbon Dioxide Level 30 mmol/L (21-32) Anion Gap 6 (6-14) Blood Urea Nitrogen 19 mg/dL (8-26) Creatinine 1.1 mg/dL (0.7-1.3) Estimated GFR (Cockcroft-Gault) 65.1 BUN/Creatinine Ratio 17 (6-20) Glucose Level 187 mg/dL (70-99) Calcium Level 8.0 mg/dL (8.5-10.1) Total Bilirubin 0.3 mg/dL (0.2-1.0) Aspartate Amino Transf (AST/SGOT) 21 U/L (15-37) Alanine Aminotransferase (ALT/SGPT) 26 U/L (16-63) Alkaline Phosphatase 72 U/L (46-116) Total Protein 5.8 g/dL (6.4-8.2) Albumin 1.6 g/dL (3.4-5.0) Albumin/Globulin Ratio 0.4 (1.0-1.7) Laboratory Tests Test 06/25/18 12:23 06/25/18 17:31 06/25/18 19:10 06/25/18 21:26 Glucose (Fingerstick) 194 mg/dL (70-99) 211 mg/dL (70-99) 199 mg/dL (70-99) Random Vancomycin Level 20.8 mcg/mL Test 06/25/18 22:00 06/26/18 03:55 Urine Color Yellow Urine Clarity Clear Urine pH 6.5 Urine Specific [place] 1.025 Urine Protein Negative mg/dL (NEG-TRACE) Urine Glucose (UA) Negative mg/dL (NEG) Urine Ketones (Stick) Negative mg/dL (NEG) Urine Blood Negative (NEG) Urine Nitrite Negative (NEG) Urine Bilirubin Negative (NEG) Urine Urobilinogen Dipstick 1.0 mg/dL (0.2 mg/dL) Urine Leukocyte Esterase Negative (NEG) Urine RBC 0 /HPF (0-2) Urine WBC Occ /HPF (0-4) Urine Squamous Epithelial Cells Occ /LPF Urine Bacteria 0 /HPF (0-FEW) Urine Mucus Slight /LPF White Blood Count 8.9 x10^3/uL (4.0-11.0) Red Blood Count 2.67 x10^6/uL (4.30-5.70) Hemoglobin 7.0 g/dL (13.0-17.5) Hematocrit 22.4 % (39.0-53.0) Mean Corpuscular Volume 84 fL (79-100) Mean Corpuscular Hemoglobin 26 pg (25-35) Mean Corpuscular Hemoglobin Concent 31 g/dL (31-37) Red Cell Distribution Width 16.8 % (11.5-14.5) Platelet Count 245 x10^3/uL (140-400) Neutrophils (%) (Auto) 73 % (31-73) Lymphocytes (%) (Auto) 11 % (24-48) Monocytes (%) (Auto) 10 % (0-9) Eosinophils (%) (Auto) 6 % (0-3) Basophils (%) (Auto) 0 % (0-3) Neutrophils # (Auto) 6.5 x10^3uL (1.8-7.7) Lymphocytes # (Auto) 1.0 x10^3/uL (1.0-4.8) Monocytes # (Auto) 0.9 x10^3/uL (0.0-1.1) Eosinophils # (Auto) 0.5 x10^3/uL (0.0-0.7) Basophils # (Auto) 0.0 x10^3/uL (0.0-0.2) Prothrombin Time 40.5 SEC (11.7-14.0) Prothromb Time International Ratio 4.2 (0.8-1.1) Sodium Level 141 mmol/L (136-145) Potassium Level 3.9 mmol/L (3.5-5.1) Chloride Level 105 mmol/L (98-107) Carbon Dioxide Level 30 mmol/L (21-32) Anion Gap 6 (6-14) Blood Urea Nitrogen 19 mg/dL (8-26) Creatinine 1.1 mg/dL (0.7-1.3) Estimated GFR (Cockcroft-Gault) 65.1 BUN/Creatinine Ratio 17 (6-20) Glucose Level 187 mg/dL (70-99) Calcium Level 8.0 mg/dL (8.5-10.1) Total Bilirubin 0.3 mg/dL (0.2-1.0) Aspartate Amino Transf (AST/SGOT) 21 U/L (15-37) Alanine Aminotransferase (ALT/SGPT) 26 U/L (16-63) Alkaline Phosphatase 72 U/L (46-116) Total Protein 5.8 g/dL (6.4-8.2) Albumin 1.6 g/dL (3.4-5.0) Albumin/Globulin Ratio 0.4 (1.0-1.7) Medications Active Scripts Medications Dose Route/Sig Max Daily Dose Days Date Category Dose Instructions Daptomycin 350 Mg Vial 350 Mg IV DAILY 10 06/22/18 Rx Cephalexin 250 Mg Capsule 500 Mg PO QID 3 06/22/18 Rx Percocet 5-325 Mg Tablet (Oxycodone/Acetaminophen) 1 Each Tablet 1 Tab PO PRN Q4HRS PRN 6 06/22/18 Rx Digoxin 125 Mcg Tablet 125 Mcg PO DAILY 05/15/16 Rx Furosemide 40 Mg Tablet 40 Mg PO DAILY 05/15/16 Rx Zonisamide 100 Mg Capsule 400 Mg PO DAILY 05/11/16 Reported Multivitamins (Multivitamin) 1 Each Tablet 1 Tab PO DAILY 05/11/16 Reported Levetiracetam 250 Mg Tablet 1,250 Mg PO BID 05/11/16 Reported Atorvastatin Calcium 80 Mg Tablet 1 Tab PO DAILY 05/11/16 Reported Acetaminophen 500 Mg Tablet 1 Tab PO PRN Q6HRS PRN 05/11/16 Reported Metoprolol Tartrate 50 Mg Tablet 50 Mg PO BID 02/24/16 Rx [Warfarin Sodium] 1 EACH Each 1 Each MC PRN DAILY PRN 02/24/16 Rx Lisinopril 20 Mg Tablet 20 Mg PO DAILY 02/24/16 Rx Duoneb 0.5-3(2.5) Mg/3 Ml (Albuterol/Ipratropium) 3 Ml Ampul.neb 3 Ml NEB Q4HRS W/A 30 02/24/16 Rx Hydralazine Hcl 10 Mg Tablet 10 Mg PO TID 02/24/16 Rx Albuterol Sulfate Hfa Inhaler (Albuterol Sulfate) 8.5 Gm Hfa.aer.ad 2 Puff IH PRN Q6HRS PRN 02/20/13 Reported Aspirin Ec (Aspirin) 325 Mg Tablet. 81 Mg PO DAILY 02/20/13 Reported Warfarin Sodium 5 Mg Tablet 6 Mg PO DAILY 02/19/13 Reported Warfarin Sodium 2.5 Mg Tablet 2.5 Mg PO 3X/WEEK 02/19/13 Reported monday,monday, Gabapentin (Gabapentin) 300 Mg Capsule 300 Mg PO DAILY 02/19/13 Reported Risperidone 1 Mg Tablet 1 Mg PO HS 02/19/13 Reported Novolog (Insulin Aspart) 100 Unit/1 Ml Vial 10 Unit SQ DAILYAC 02/19/13 Reported Potassium 99 Mg Tablet 20 Meq PO DAILY 02/19/13 Reported Comments reviewed cta 06/23 1. There is no CT evidence of pulmonary embolus. 2. Dilated pulmonary trunk suggests pulmonary arterial hypertension. 3. Moderate bilateral pleural effusions. 4. Unchanged right upper lobe bronchopneumonia. Scattered groundglass opacities in the lungs are similar to prior study and are likely infectious/inflammatory. 5. Mild mediastinal adenopathy may be reactive. Impression . 1. Zwziz-uk-[id number] hypoxemic respiratory failure secondary to acute exacerbation of chronic obstructive pulmonary disease, pneumonia, 2. Abnormal CT of the chest 3. Pneumonia 4. Acute systolic congestive heart failure. 5. Acute exacerbation of chronic obstructive pulmonary disease. 6. Leukocytosis. 7. Anemia. 8. History of cerebrovascular accident. 9. Lower extremity edema, no dvt 10. Atrial fibrillation/atrial flutter on Coumadin. 11. Bioprosthetic aortic valve. 12. diarrhea, ? c diff Plan . PRN BIPAP 02 MA PALLIATIVE CARE ANTI BX PE R ID STEROID PT BETTER TODAY LESS WHEEZE DIURESE 06/26 PALLIATIVE CARE NOTE I D/W PT 1230 Spoke with patient and Aura. Dr. Gonzales here. states patient can't come home--too difficult for her to handle without him getting stronger first. Would need children's input before making any decisions. Family can not meet until . Plan: Family Meeting to discuss plan of care. MANDEEP ZEPEDA MD June 26, 2018 09:04
--- NOTE | 2018-06-26 09:19 | PDOC ---
PROGRESS NOTES History of Present Illness History of Present Illness VTE Prophylaxis Ordered VTE Prophylaxis Devices: Yes VTE Pharmacological Prophylaxi: Yes Assessment/Plan Assessment/Plan IMPRESSION Pneumonia with right perihilar infiltrate. failed outpt trial Leukocytosis Chronic Crawley with pyuria MRSA bacteremia with sepsis from 05/18. was D/c on iv Dapto till 07/02 Acute on chronic CHF MRSA and Enterobacter ( R Augmentin/cefuroxime) infection PSA ( R quinolones & I imipenem) infection Bioprosthetic aortic valve A- fib Anticoagulation on warfarin Hydropic gallbladder contains hyperdense material, sludge versus vicarious excretion of contrast. Fatty replacement of the pancreas. Small bilateral upper pole renal cysts. Sludge in the gallbladder. No cholelithiasis or cholecystitis. No biliary dilatation. Diabetes Type II Seizure disorder, on Keppra Noncompliance New anemia with possible GI bleed s/p blood transfusion elevated troponin i Dilated pulmonary trunk suggests pulmonary arterial hypertension. 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 REMOTE SUPRATHERAPEUTIC INR , PHARMACY TO ADJUST D/W PHARMACIST BY PHONE seeing bugs on wall 06/24 06/26 family meeting for possible hospice soon d/w PAT D/W Plan: Antibiotics per ID, Continue vancomycin and Zosyn ICU BED blood cult pulm consult ID consult cardiology consult contact isolation TSH 41 min cc time Vitals Vitals Vital Signs Date Time Temp Pulse Resp B/P (MAP) Pulse Ox O2 Delivery O2 Flow Rate FiO2 06/26/18 08:35 97.9 99 11 151/61 97.9 06/26/18 07:57 98 Nasal Cannula 2.0 Physical Exam Physical Exam GENERAL: in bed,, alert, HENT: ISMA[place], Oral cavity/pharynx pink, dry. No thrush LUNGS: Clear anteriorly, nonlabored CV: S1 S2, regular ABD: Obese, soft, NT : Crawley EXT: 2+ edema left leg. Right BKA stump incision healing well, steri strips in place. SKIN: No rash CHARGE ENTRY: Alert, responding appropriately RUE-PICC (POA) clean General: Alert, Oriented X3, Cooperative, No acute distress, mild distress Heart: Other (HR irregular) Lungs: Wheezing, Crackles, Other Abdomen: Normal bowel sounds, Soft, No tenderness Extremities: No cyanosis, Other (RBKA, left toes amputation, 1-2+ edema ) Labs LABS AP chest. HISTORY: Respiratory failure AP view was taken of the chest. Patient had previous aortic valve surgery. Patient rotated to the right. Right PICC line is unchanged. There are bilateral areas of infiltrate with a mild improvement. Pleural effusions have shown improvement. IMPRESSION: 1. Right PICC line unchanged. 2. Improving infiltrates.. Electronically signed by: Nelson Lance MD (06/25/2018 5:41 AM) [facility] DICTATED and SIGNED BY: NELSON LANCE MD DATE: 06/25/18540 Laboratory Tests Test 06/25/18 12:23 06/25/18 17:31 06/25/18 19:10 06/25/18 21:26 Glucose (Fingerstick) 194 mg/dL (70-99) 211 mg/dL (70-99) 199 mg/dL (70-99) Random Vancomycin Level 20.8 mcg/mL Test 06/25/18 22:00 06/26/18 03:55 Urine Color Yellow Urine Clarity Clear Urine pH 6.5 Urine Specific [place] 1.025 Urine Protein Negative mg/dL (NEG-TRACE) Urine Glucose (UA) Negative mg/dL (NEG) Urine Ketones (Stick) Negative mg/dL (NEG) Urine Blood Negative (NEG) Urine Nitrite Negative (NEG) Urine Bilirubin Negative (NEG) Urine Urobilinogen Dipstick 1.0 mg/dL (0.2 mg/dL) Urine Leukocyte Esterase Negative (NEG) Urine RBC 0 /HPF (0-2) Urine WBC Occ /HPF (0-4) Urine Squamous Epithelial Cells Occ /LPF Urine Bacteria 0 /HPF (0-FEW) Urine Mucus Slight /LPF White Blood Count 8.9 x10^3/uL (4.0-11.0) Red Blood Count 2.67 x10^6/uL (4.30-5.70) Hemoglobin 7.0 g/dL (13.0-17.5) Hematocrit 22.4 % (39.0-53.0) Mean Corpuscular Volume 84 fL (79-100) Mean Corpuscular Hemoglobin 26 pg (25-35) Mean Corpuscular Hemoglobin Concent 31 g/dL (31-37) Red Cell Distribution Width 16.8 % (11.5-14.5) Platelet Count 245 x10^3/uL (140-400) Neutrophils (%) (Auto) 73 % (31-73) Lymphocytes (%) (Auto) 11 % (24-48) Monocytes (%) (Auto) 10 % (0-9) Eosinophils (%) (Auto) 6 % (0-3) Basophils (%) (Auto) 0 % (0-3) Neutrophils # (Auto) 6.5 x10^3uL (1.8-7.7) Lymphocytes # (Auto) 1.0 x10^3/uL (1.0-4.8) Monocytes # (Auto) 0.9 x10^3/uL (0.0-1.1) Eosinophils # (Auto) 0.5 x10^3/uL (0.0-0.7) Basophils # (Auto) 0.0 x10^3/uL (0.0-0.2) Prothrombin Time 40.5 SEC (11.7-14.0) Prothromb Time International Ratio 4.2 (0.8-1.1) Sodium Level 141 mmol/L (136-145) Potassium Level 3.9 mmol/L (3.5-5.1) Chloride Level 105 mmol/L (98-107) Carbon Dioxide Level 30 mmol/L (21-32) Anion Gap 6 (6-14) Blood Urea Nitrogen 19 mg/dL (8-26) Creatinine 1.1 mg/dL (0.7-1.3) Estimated GFR (Cockcroft-Gault) 65.1 BUN/Creatinine Ratio 17 (6-20) Glucose Level 187 mg/dL (70-99) Calcium Level 8.0 mg/dL (8.5-10.1) Total Bilirubin 0.3 mg/dL (0.2-1.0) Aspartate Amino Transf (AST/SGOT) 21 U/L (15-37) Alanine Aminotransferase (ALT/SGPT) 26 U/L (16-63) Alkaline Phosphatase 72 U/L (46-116) Total Protein 5.8 g/dL (6.4-8.2) Albumin 1.6 g/dL (3.4-5.0) Albumin/Globulin Ratio 0.4 (1.0-1.7) Comment Review of Relevant I have reviewed the following items navi (where applicable) has been applied. Labs Laboratory Tests Test 06/24/18 11:49 06/24/18 13:35 06/24/18 16:55 06/24/18 17:03 Glucose (Fingerstick) 191 mg/dL (70-99) 235 mg/dL (70-99) 232 mg/dL (70-99) Prothrombin Time 33.7 SEC (11.7-14.0) Prothromb Time International Ratio 3.3 (0.8-1.1) Test 06/24/18 21:09 06/25/18 06:05 06/25/18 08:35 06/25/18 08:50 Glucose (Fingerstick) 245 mg/dL (70-99) 200 mg/dL (70-99) White Blood Count 9.1 x10^3/uL (4.0-11.0) Red Blood Count 2.87 x10^6/uL (4.30-5.70) Hemoglobin 7.6 g/dL (13.0-17.5) Hematocrit 24.2 % (39.0-53.0) Mean Corpuscular Volume 84 fL (79-100) Mean Corpuscular Hemoglobin 27 pg (25-35) Mean Corpuscular Hemoglobin Concent 32 g/dL (31-37) Red Cell Distribution Width 17.0 % (11.5-14.5) Platelet Count 254 x10^3/uL (140-400) Neutrophils (%) (Auto) 81 % (31-73) Lymphocytes (%) (Auto) 7 % (24-48) Monocytes (%) (Auto) 9 % (0-9) Eosinophils (%) (Auto) 2 % (0-3) Basophils (%) (Auto) 0 % (0-3) Neutrophils # (Auto) 7.4 x10^3uL (1.8-7.7) Lymphocytes # (Auto) 0.7 x10^3/uL (1.0-4.8) Monocytes # (Auto) 0.8 x10^3/uL (0.0-1.1) Eosinophils # (Auto) 0.2 x10^3/uL (0.0-0.7) Basophils # (Auto) 0.0 x10^3/uL (0.0-0.2) Prothrombin Time 36.3 SEC (11.7-14.0) Prothromb Time International Ratio 3.6 (0.8-1.1) Sodium Level 143 mmol/L (136-145) Potassium Level 3.3 mmol/L (3.5-5.1) Chloride Level 106 mmol/L (98-107) Carbon Dioxide Level 31 mmol/L (21-32) Anion Gap 6 (6-14) Blood Urea Nitrogen 19 mg/dL (8-26) Creatinine 1.2 mg/dL (0.7-1.3) Estimated GFR (Cockcroft-Gault) 58.9 BUN/Creatinine Ratio 16 (6-20) Glucose Level 253 mg/dL (70-99) Calcium Level 8.1 mg/dL (8.5-10.1) Total Bilirubin 0.3 mg/dL (0.2-1.0) Aspartate Amino Transf (AST/SGOT) 26 U/L (15-37) Alanine Aminotransferase (ALT/SGPT) 30 U/L (16-63) Alkaline Phosphatase 80 U/L (46-116) Total Protein 6.3 g/dL (6.4-8.2) Albumin 1.8 g/dL (3.4-5.0) Albumin/Globulin Ratio 0.4 (1.0-1.7) Vitamin B12 Level 572 pg/mL (247-911) Magnesium Level 2.1 mg/dL (1.8-2.4) Vancomycin Level Trough 24.5 mcg/mL (10.0-20.0) Vancomycin Last Dose Date 06/24/18 Vancomycin Last Dose Time 0830 Test 06/25/18 12:23 06/25/18 17:31 06/25/18 19:10 06/25/18 21:26 Glucose (Fingerstick) 194 mg/dL (70-99) 211 mg/dL (70-99) 199 mg/dL (70-99) Random Vancomycin Level 20.8 mcg/mL Test 06/25/18 22:00 06/26/18 03:55 Urine Color Yellow Urine Clarity Clear Urine pH 6.5 Urine Specific [place] 1.025 Urine Protein Negative mg/dL (NEG-TRACE) Urine Glucose (UA) Negative mg/dL (NEG) Urine Ketones (Stick) Negative mg/dL (NEG) Urine Blood Negative (NEG) Urine Nitrite Negative (NEG) Urine Bilirubin Negative (NEG) Urine Urobilinogen Dipstick 1.0 mg/dL (0.2 mg/dL) Urine Leukocyte Esterase Negative (NEG) Urine RBC 0 /HPF (0-2) Urine WBC Occ /HPF (0-4) Urine Squamous Epithelial Cells Occ /LPF Urine Bacteria 0 /HPF (0-FEW) Urine Mucus Slight /LPF White Blood Count 8.9 x10^3/uL (4.0-11.0) Red Blood Count 2.67 x10^6/uL (4.30-5.70) Hemoglobin 7.0 g/dL (13.0-17.5) Hematocrit 22.4 % (39.0-53.0) Mean Corpuscular Volume 84 fL (79-100) Mean Corpuscular Hemoglobin 26 pg (25-35) Mean Corpuscular Hemoglobin Concent 31 g/dL (31-37) Red Cell Distribution Width 16.8 % (11.5-14.5) Platelet Count 245 x10^3/uL (140-400) Neutrophils (%) (Auto) 73 % (31-73) Lymphocytes (%) (Auto) 11 % (24-48) Monocytes (%) (Auto) 10 % (0-9) Eosinophils (%) (Auto) 6 % (0-3) Basophils (%) (Auto) 0 % (0-3) Neutrophils # (Auto) 6.5 x10^3uL (1.8-7.7) Lymphocytes # (Auto) 1.0 x10^3/uL (1.0-4.8) Monocytes # (Auto) 0.9 x10^3/uL (0.0-1.1) Eosinophils # (Auto) 0.5 x10^3/uL (0.0-0.7) Basophils # (Auto) 0.0 x10^3/uL (0.0-0.2) Prothrombin Time 40.5 SEC (11.7-14.0) Prothromb Time International Ratio 4.2 (0.8-1.1) Sodium Level 141 mmol/L (136-145) Potassium Level 3.9 mmol/L (3.5-5.1) Chloride Level 105 mmol/L (98-107) Carbon Dioxide Level 30 mmol/L (21-32) Anion Gap 6 (6-14) Blood Urea Nitrogen 19 mg/dL (8-26) Creatinine 1.1 mg/dL (0.7-1.3) Estimated GFR (Cockcroft-Gault) 65.1 BUN/Creatinine Ratio 17 (6-20) Glucose Level 187 mg/dL (70-99) Calcium Level 8.0 mg/dL (8.5-10.1) Total Bilirubin 0.3 mg/dL (0.2-1.0) Aspartate Amino Transf (AST/SGOT) 21 U/L (15-37) Alanine Aminotransferase (ALT/SGPT) 26 U/L (16-63) Alkaline Phosphatase 72 U/L (46-116) Total Protein 5.8 g/dL (6.4-8.2) Albumin 1.6 g/dL (3.4-5.0) Albumin/Globulin Ratio 0.4 (1.0-1.7) Laboratory Tests Test 06/25/18 12:23 06/25/18 17:31 06/25/18 19:10 06/25/18 21:26 Glucose (Fingerstick) 194 mg/dL (70-99) 211 mg/dL (70-99) 199 mg/dL (70-99) Random Vancomycin Level 20.8 mcg/mL Test 06/25/18 22:00 06/26/18 03:55 Urine Color Yellow Urine Clarity Clear Urine pH 6.5 Urine Specific [place] 1.025 Urine Protein Negative mg/dL (NEG-TRACE) Urine Glucose (UA) Negative mg/dL (NEG) Urine Ketones (Stick) Negative mg/dL (NEG) Urine Blood Negative (NEG) Urine Nitrite Negative (NEG) Urine Bilirubin Negative (NEG) Urine Urobilinogen Dipstick 1.0 mg/dL (0.2 mg/dL) Urine Leukocyte Esterase Negative (NEG) Urine RBC 0 /HPF (0-2) Urine WBC Occ /HPF (0-4) Urine Squamous Epithelial Cells Occ /LPF Urine Bacteria 0 /HPF (0-FEW) Urine Mucus Slight /LPF White Blood Count 8.9 x10^3/uL (4.0-11.0) Red Blood Count 2.67 x10^6/uL (4.30-5.70) Hemoglobin 7.0 g/dL (13.0-17.5) Hematocrit 22.4 % (39.0-53.0) Mean Corpuscular Volume 84 fL (79-100) Mean Corpuscular Hemoglobin 26 pg (25-35) Mean Corpuscular Hemoglobin Concent 31 g/dL (31-37) Red Cell Distribution Width 16.8 % (11.5-14.5) Platelet Count 245 x10^3/uL (140-400) Neutrophils (%) (Auto) 73 % (31-73) Lymphocytes (%) (Auto) 11 % (24-48) Monocytes (%) (Auto) 10 % (0-9) Eosinophils (%) (Auto) 6 % (0-3) Basophils (%) (Auto) 0 % (0-3) Neutrophils # (Auto) 6.5 x10^3uL (1.8-7.7) Lymphocytes # (Auto) 1.0 x10^3/uL (1.0-4.8) Monocytes # (Auto) 0.9 x10^3/uL (0.0-1.1) Eosinophils # (Auto) 0.5 x10^3/uL (0.0-0.7) Basophils # (Auto) 0.0 x10^3/uL (0.0-0.2) Prothrombin Time 40.5 SEC (11.7-14.0) Prothromb Time International Ratio 4.2 (0.8-1.1) Sodium Level 141 mmol/L (136-145) Potassium Level 3.9 mmol/L (3.5-5.1) Chloride Level 105 mmol/L (98-107) Carbon Dioxide Level 30 mmol/L (21-32) Anion Gap 6 (6-14) Blood Urea Nitrogen 19 mg/dL (8-26) Creatinine 1.1 mg/dL (0.7-1.3) Estimated GFR (Cockcroft-Gault) 65.1 BUN/Creatinine Ratio 17 (6-20) Glucose Level 187 mg/dL (70-99) Calcium Level 8.0 mg/dL (8.5-10.1) Total Bilirubin 0.3 mg/dL (0.2-1.0) Aspartate Amino Transf (AST/SGOT) 21 U/L (15-37) Alanine Aminotransferase (ALT/SGPT) 26 U/L (16-63) Alkaline Phosphatase 72 U/L (46-116) Total Protein 5.8 g/dL (6.4-8.2) Albumin 1.6 g/dL (3.4-5.0) Albumin/Globulin Ratio 0.4 (1.0-1.7) Microbiology 06/23/18 Blood Culture - Preliminary, Resulted NO GROWTH AFTER 3 DAYS Medications Current Medications Albuterol/ Ipratropium (Duoneb) 3 ml 1X ONCE NEB Last administered on 06/23/18at 04:06; Start 06/23/18 at 03:30; Stop 06/23/18 at 03:33; Status DC Dexamethasone Sodium Phosphate (Decadron) 10 mg 1X ONCE IV Last administered on 06/23/18at 04:33; Start 06/23/18 at 03:30; Stop 06/23/18 at 03:33; Status DC Aspirin (Alexander Aspirin) 325 mg 1X ONCE PO Last administered on 06/23/18at 04:33; Start 06/23/18 at 04:15; Stop 06/23/18 at 04:16; Status DC Sodium Chloride 1,000 ml @ 1,000 mls/hr 1X ONCE IV ; Start 06/23/18 at 04:15; Stop 06/23/18 at 04:33; Status DC Ondansetron HCl (Zofran) 4 mg PRN Q8HRS PRN IV NAUSEA/VOMITING; Start 06/23/18 at 04:15; Stop 06/24/18 at 04:14; Status DC Acetaminophen (Tylenol) 650 mg PRN Q4HRS PRN PO FEVER; Start 06/23/18 at 04:15; Stop 06/24/18 at 04:14; Status DC Albuterol/ Ipratropium (Duoneb) 3 ml RTQID NEB Last administered on 06/23/18at 08:01; Start 06/23/18 at 08:00; Stop 06/23/18 at 10:57; Status DC Insulin Human Lispro (HumaLOG) 0-5 UNITS TIDWMEALS SQ Last administered on 06/25/18at 17:37; Start 06/23/18 at 08:00 Dextrose (Dextrose 50%-Water Syringe) 12.5 gm PRN Q15MIN PRN IV SEE COMMENTS; Start 06/23/18 at 04:15 Morphine Sulfate (Morphine Sulfate) 4 mg PRN Q4HRS PRN IV MODERATE PAIN 4-6 Last administered on 06/24/18at 10:43; Start 06/23/18 at 04:15 Iohexol (Omnipaque 350 Mg/ml) 100 ml 1X ONCE IV Last administered on 06/23/18at 04:58; Start 06/23/18 at 05:00; Stop 06/23/18 at 05:01; Status DC Info (CONTRAST GIVEN -- Rx MONITORING) 1 each PRN DAILY PRN MC SEE COMMENTS; Start 06/23/18 at 05:00; Stop 06/25/18 at 04:59; Status DC Piperacillin Sod/ Tazobactam Sod 4.5 gm/Sodium Chloride 100 ml @ 200 mls/hr 1X ONCE IV Last administered on 06/23/18at 06:12; Start 06/23/18 at 06:00; Stop 06/23/18 at 06:29; Status DC Vancomycin HCl 2 gm/Sodium Chloride 500 ml @ 250 mls/hr 1X ONCE IV Last administered on 06/23/18at 08:02; Start 06/23/18 at 06:00; Stop 06/23/18 at 07:59; Status DC Ipratropium [place] (Atrovent) 0.5 mg RTQID NEB Last administered on 06/26/18at 07:57; Start 06/23/18 at 12:00 Famotidine (Pepcid Vial) 20 mg BID IVP Last administered on 06/25/18at 20:52; Start 06/23/18 at 21:00 Vancomycin HCl (Vanco Per Pharmacy) 1 each PRN DAILY PRN MC SEE COMMENTS Last administered on 06/25/18at 10:24; Start 06/23/18 at 11:45 Piperacillin Sod/ Tazobactam Sod 3.375 gm/Sodium Chloride 50 ml @ 100 mls/hr Q6HRS IV Last administered on 06/26/18at 05:35; Start 06/23/18 at 12:00; Stop 06/26/18 at 07:56; Status DC Vancomycin HCl 1.5 gm/Sodium Chloride 500 ml @ 250 mls/hr Q24H IV Last administered on 06/24/18at 08:53; Start 06/24/18 at 08:00; Stop 06/25/18 at 10:17; Status DC Vancomycin HCl (Vancomycin Trough Level) 1 each 1X ONCE MC Last administered on 06/25/18at 10:09; Start 06/25/18 at 07:30; Stop 06/25/18 at 07:31; Status DC Aspirin (Ecotrin) 81 mg DAILYWBKFT PO Last administered on 06/25/18 09:26; Start 06/23/18 at 18:15 Digoxin (Lanoxin) 125 mcg DAILY PO Last administered on 06/25/18 09:26; Start 06/24/18 at 09:00 Furosemide (Lasix) 40 mg DAILY PO Last administered on 06/24/18 08:56; Start 06/24/18 at 09:00; Stop 06/24/18 at 12:27; Status DC Gabapentin (Neurontin) 300 mg DAILY PO Last administered on 06/25/18 09:27; Start 06/24/18 at 09:00 Lisinopril (Prinivil) 20 mg DAILY PO Last administered on 06/24/18 08:54; Start 06/24/18 at 09:00; Stop 06/24/18 at 12:27; Status DC Metoprolol Tartrate (Lopressor) 50 mg BID PO Last administered on 06/25/18 09:26; Start 06/23/18 at 21:00; Stop 06/25/18 at 18:09; Status DC Atorvastatin Calcium (Lipitor) 80 mg QHS PO Last administered on 06/25/18 20:52; Start 06/23/18 at 21:00 Hydralazine HCl (Apresoline) 10 mg TID PO Last administered on 06/25/18 20:53; Start 06/23/18 at 21:00 Levetiracetam (Keppra) 1,250 mg BID PO Last administered on 06/25/18 20:54; Start 06/23/18 at 21:00 Multivitamins (Thera M Plus) 1 tab DAILY PO Last administered on 06/25/18 09:27; Start 06/24/18 at 09:00 Potassium Chloride (Klor-Con) 20 meq DAILYWBKFT PO Last administered on 06/25/18 09:26; Start 06/23/18 at 18:30 Risperidone (RisperDAL) 1 mg QHS PO Last administered on 06/25/18 20:54; Start 06/23/18 at 21:00 Zonisamide (Zonegran) 400 mg DAILY PO Last administered on 06/25/18 09:27; Start 06/23/18 at 18:00 Warfarin Sodium (Coumadin Per Pharmacy) 1 each PRN DAILY PRN MC SEE COMMENTS Last administered on 06/25/18 09:13; Start 06/23/18 at 18:30 Warfarin Sodium (Coumadin) 4 mg DAILY16 PO Last administered on 06/23/18 21:19; Start 06/23/18 at 19:30; Stop 06/24/18 at 15:48; Status DC Budesonide (Pulmicort) 0.5 mg RTBID NEB Last administered on 06/26/18 07:57; Start 06/24/18 at 08:00 Lisinopril (Prinivil) 40 mg DAILY PO Last administered on 06/25/18 09:27; Start 06/25/18 at 09:00 Furosemide (Lasix) 40 mg DAILY IVP Last administered on 06/25/18 09:27; Start 06/24/18 at 12:30 Lactobacillus Rhamnosus (Culturelle) 1 cap BID PO Last administered on 06/25/18 20:54; Start 06/24/18 at 21:00 Warfarin Sodium (Coumadin - No Dose Today) 1 each 1X WARF ONCE MC Last administered on 06/24/18 15:59; Start 06/24/18 at 16:00; Stop 06/24/18 at 16:01; Status DC Warfarin Sodium (Coumadin - No Dose Today) 1 each 1X WARF ONCE MC Last administered on 06/25/18 16:00; Start 06/25/18 at 16:00; Stop 06/25/18 at 16:01; Status DC Vancomycin HCl (Vancomycin Random Level) 1 each 1X ONCE MC Last administered on 06/25/18 19:00; Start 06/25/18 at 19:00; Stop 06/25/18 at 19:01; Status DC Oxycodone/ Acetaminophen (Percocet 5/325) 1 tab PRN Q4HRS PRN PO PAIN Last administered on 06/26/18at 00:00; Start 06/25/18 at 15:00 Potassium Chloride (Klor-Con) 20 meq 1X ONCE PO Last administered on 06/25/18 17:39; Start 06/25/18 at 15:45; Stop 06/25/18 at 15:46; Status DC Potassium Chloride (Klor-Con) 20 meq DAILYWBKFT PO ; Start 06/26/18 at 08:00; Status Cancel Metoprolol Tartrate (Lopressor) 25 mg BID PO Last administered on 06/25/18at 20:54; Start 06/25/18 at 21:00 Vancomycin HCl 1 gm/Sodium Chloride 250 ml @ 250 mls/hr Q24H IV Last administered on 06/26/18at 00:20; Start 06/26/18 at 00:00 Active Scripts Active Daptomycin 350 Mg Vial 350 Mg IV DAILY 10 Days Cephalexin 250 Mg Capsule 500 Mg PO QID 3 Days Percocet 5-325 Mg Tablet (Oxycodone/Acetaminophen) 1 Each Tablet 1 Tab PO PRN Q4HRS PRN 6 Days Digoxin 125 Mcg Tablet 125 Mcg PO DAILY Furosemide 40 Mg Tablet 40 Mg PO DAILY Metoprolol Tartrate 50 Mg Tablet 50 Mg PO BID [Warfarin Sodium] 1 EACH Each 1 Each MC PRN DAILY PRN Lisinopril 20 Mg Tablet 20 Mg PO DAILY Duoneb 0.5-3(2.5) Mg/3 Ml (Albuterol/Ipratropium) 3 Ml Ampul.neb 3 Ml NEB Q4HRS W/A 30 Days Hydralazine Hcl 10 Mg Tablet 10 Mg PO TID Reported Zonisamide 100 Mg Capsule 400 Mg PO DAILY Multivitamins (Multivitamin) 1 Each Tablet 1 Tab PO DAILY Levetiracetam 250 Mg Tablet 1,250 Mg PO BID Atorvastatin Calcium 80 Mg Tablet 1 Tab PO DAILY Acetaminophen 500 Mg Tablet 1 Tab PO PRN Q6HRS PRN Albuterol Sulfate Hfa Inhaler (Albuterol Sulfate) 8.5 Gm Hfa.aer.ad 2 Puff IH PRN Q6HRS PRN Aspirin Ec (Aspirin) 325 Mg Tablet.dr 81 Mg PO DAILY Warfarin Sodium 5 Mg Tablet 6 Mg PO DAILY Warfarin Sodium 2.5 Mg Tablet 2.5 Mg PO 3X/WEEK monday,monday, Gabapentin (Gabapentin) 300 Mg Capsule 300 Mg PO DAILY Risperidone 1 Mg Tablet 1 Mg PO HS Novolog (Insulin Aspart) 100 Unit/1 Ml Vial 10 Unit SQ DAILYAC Potassium 99 Mg Tablet 20 Meq PO DAILY Vitals/I & O Vital Sign - Last 24 Hours 5/06/25/18 06/25/18 06/25/18 09:26 09:26 09:27 09:28 Pulse 69 69 69 69 B/P (MAP) 135/53 135/53 135/53 135/53 06/25/18 06/25/18 06/25/18 06/25/18 11:00 13:20 14:00 14:45 Temp 98.0 98.0 Pulse 69 50 53 Resp 10 12 B/P (MAP) 118/54 (75) 114/45 114/45 (68) Pulse Ox 100 99 98 O2 Delivery Nasal Cannula Nasal Cannula Nasal Cannula O2 Flow Rate 2.0 2.0 2.0 06/25/18 06/25/18 06/25/18 06/25/18 16:34 17:41 19:41 19:47 Temp 98.3 98.3 Pulse 87 Resp 16 B/P (MAP) 125/55 (78) Pulse Ox 100 100 96 O2 Delivery Nasal Cannula Nasal Cannula Nasal Cannula Nasal Cannula O2 Flow Rate 2.0 2.0 2.0 2.0 06/25/18 06/25/18 06/25/18 06/25/18 19:50 20:53 20:54 22:59 Temp 98.4 98.4 Pulse 87 87 68 Resp 12 B/P (MAP) 125/55 125/55 128/63 (84) Pulse Ox 96 O2 Delivery Nasal Cannula Nasal Cannula O2 Flow Rate 2.0 2.0 06/26/18 06/26/18 06/26/18 06/26/18 00:00 00:59 02:55 07:57 Temp 98.0 98.0 Pulse 66 Resp 19 B/P (MAP) 112/62 (79) Pulse Ox 95 98 98 O2 Delivery Nasal Cannula Nasal Cannula Nasal Cannula Nasal Cannula O2 Flow Rate 2.0 2.0 2.0 2.0 06/26/18 06/26/18 08:20 08:35 Temp 97.7 97.9 97.7 97.9 Pulse 68 99 Resp 7 11 B/P (MAP) 136/58 151/61 Intake and Output 06/25/18 06/25/18 06/26/18 14:59 22:59 06:59 Intake Total 240 ml 290 ml 700 ml Output Total 950 ml 300 ml 350 ml Balance -710 ml -10 ml 350 ml Nutrition Consultation Dietary Evaluation: Recommendations by RD: Protein supplementation Comments: REC continue w/ADA/cardiac diet as ordered Continue w/MVI REC Glucerna TID (chocolate) REC Vit C 500 mg BID Expected Outcomes/Goals: PO intake to meet >75% est needs Interpretation of weight loss: >1-2% in 1 week Malnutrition Findings: Weight Status: Overweight KEV HATCH MD June 26, 2018 09:19
[2018-06-26] MEDS: ZONISAMIDE 100 MG CAPSULE. PO SCH (09:50)
[2018-06-26] MEDS: FAMOTIDINE 20 MG/2 ML VIAL IVP SCH ×2 (09:50→21:15)
[2018-06-26] MEDS: LACTOBACILLUS RHAMNOSUS GG 1 CAPSULE. PO SCH ×2 (09:50→21:14)
[2018-06-26] MEDS: FUROSEMIDE 40 MG/4 ML VIAL. IVP SCH (09:50)
[2018-06-26] MEDS: ASPIRIN ENTERIC COATED 81 MG TABLET.DR. PO SCH (09:51)
[2018-06-26] MEDS: DIGOXIN 125 MCG TABLET. PO SCH (09:51)
[2018-06-26] MEDS: POTASSIUM CHLORIDE 20 MEQ TABLET.ER. PO SCH (09:51)
[2018-06-26] MEDS: hydrALAZINE 10 MG TABLET PO SCH ×3 (09:53→21:15)
[2018-06-26] MEDS: levETIRAcetam 250 MG TABLET PO SCH ×2 (09:54→21:15)
[2018-06-26] MEDS: MULTIVITAMIN with MINERAL TABLET. PO SCH (09:54)
[2018-06-26] MEDS: METOPROLOL TART IMMED RELEASE 25 MG TABLET. PO SCH ×2 (09:54→21:15)
[2018-06-26] MEDS: GABAPENTIN 300 MG CAPSULE. PO SCH (09:54)
[2018-06-26] MEDS: LISINOPRIL 20 MG TABLET PO SCH (09:55)
[2018-06-26] MEDS ORDERED: ALTEPLASE 1MG SYRINGE. INT CAT ONE (10:30)
--- NOTE | 2018-06-26 11:27 | NUR ---
Pharmacy Warfarin Dosing Note S:Pharmacy consulted to assist with anticoagulation therapy started with target INR: 2 -3 O:VICKI BRAUN is a 78 year old M with Atrial Fibrillation LABS: Last INR: 4.2 Last HGB: 7 Last HCT: 22.4 Last PLT: 245 Last dose of Hold given on 06/25/18 at 2121 Previous Regimen: Vitamin K given: N Drug Interaction Changes: Ongoing Drug Interactions: 06/25 INR THRU 06/28 Patient was discharged on 06/22 and readmitted on 06-23. INR on 06/22 was 2.4 and dose ordered was 4mg. Dose was NOT administered here at [facility] for 06/22. A:INR of 4.2 is above desired range. Target range for this patient is: 2 -3 P: Warfarin dose: Hold Today at 1600 Bridge Therapy: None Next INR due TOMORROW. Pharmacy anticoagulation service will continue to follow. NENITA LAM [facility] [place], 06/26/18 [id number]
--- NOTE | 2018-06-26 13:44 | PDOC ---
CARDIO Progress Notes Date and Time Date of Service 06/26/2018 Time of Evaluation 1330 Subjective Subjective: No Chest Pain, No shortness of breath, No Palpitations Vitals Vitals Vital Signs Date Time Temp Pulse Resp B/P (MAP) Pulse Ox O2 Delivery O2 Flow Rate FiO2 06/26/18 13:00 97.7 66 17 138/62 97.7 06/26/18 12:20 Nasal Cannula 2.0 06/26/18 11:00 93 Weight Weight [ ] Input and Output Intake and Output Intake and Output 06/26/18 06:59 Intake Total 1230 ml Output Total 1600 ml Balance -370 ml Intake Oral 930 ml IV Total 300 ml Output Urine Total 1600 ml Laboratory Labs Laboratory Tests Test 06/25/18 17:31 06/25/18 19:10 06/25/18 21:26 06/25/18 22:00 Glucose (Fingerstick) 211 mg/dL (70-99) 199 mg/dL (70-99) Random Vancomycin Level 20.8 mcg/mL Urine Color Yellow Urine Clarity Clear Urine pH 6.5 Urine Specific [place] 1.025 Urine Protein Negative mg/dL (NEG-TRACE) Urine Glucose (UA) Negative mg/dL (NEG) Urine Ketones (Stick) Negative mg/dL (NEG) Urine Blood Negative (NEG) Urine Nitrite Negative (NEG) Urine Bilirubin Negative (NEG) Urine Urobilinogen Dipstick 1.0 mg/dL (0.2 mg/dL) Urine Leukocyte Esterase Negative (NEG) Urine RBC 0 /HPF (0-2) Urine WBC Occ /HPF (0-4) Urine Squamous Epithelial Cells Occ /LPF Urine Bacteria 0 /HPF (0-FEW) Urine Mucus Slight /LPF Test 06/26/18 03:55 06/26/18 13:14 White Blood Count 8.9 x10^3/uL (4.0-11.0) Red Blood Count 2.67 x10^6/uL (4.30-5.70) Hemoglobin 7.0 g/dL (13.0-17.5) Hematocrit 22.4 % (39.0-53.0) Mean Corpuscular Volume 84 fL (79-100) Mean Corpuscular Hemoglobin 26 pg (25-35) Mean Corpuscular Hemoglobin Concent 31 g/dL (31-37) Red Cell Distribution Width 16.8 % (11.5-14.5) Platelet Count 245 x10^3/uL (140-400) Neutrophils (%) (Auto) 73 % (31-73) Lymphocytes (%) (Auto) 11 % (24-48) Monocytes (%) (Auto) 10 % (0-9) Eosinophils (%) (Auto) 6 % (0-3) Basophils (%) (Auto) 0 % (0-3) Neutrophils # (Auto) 6.5 x10^3uL (1.8-7.7) Lymphocytes # (Auto) 1.0 x10^3/uL (1.0-4.8) Monocytes # (Auto) 0.9 x10^3/uL (0.0-1.1) Eosinophils # (Auto) 0.5 x10^3/uL (0.0-0.7) Basophils # (Auto) 0.0 x10^3/uL (0.0-0.2) Prothrombin Time 40.5 SEC (11.7-14.0) Prothromb Time International Ratio 4.2 (0.8-1.1) Sodium Level 141 mmol/L (136-145) Potassium Level 3.9 mmol/L (3.5-5.1) Chloride Level 105 mmol/L (98-107) Carbon Dioxide Level 30 mmol/L (21-32) Anion Gap 6 (6-14) Blood Urea Nitrogen 19 mg/dL (8-26) Creatinine 1.1 mg/dL (0.7-1.3) Estimated GFR (Cockcroft-Gault) 65.1 BUN/Creatinine Ratio 17 (6-20) Glucose Level 187 mg/dL (70-99) Calcium Level 8.0 mg/dL (8.5-10.1) Total Bilirubin 0.3 mg/dL (0.2-1.0) Aspartate Amino Transf (AST/SGOT) 21 U/L (15-37) Alanine Aminotransferase (ALT/SGPT) 26 U/L (16-63) Alkaline Phosphatase 72 U/L (46-116) Total Protein 5.8 g/dL (6.4-8.2) Albumin 1.6 g/dL (3.4-5.0) Albumin/Globulin Ratio 0.4 (1.0-1.7) Glucose (Fingerstick) 174 mg/dL (70-99) Microbiology Micro Microbiology 06/23/18 Blood Culture - Preliminary, Resulted NO GROWTH AFTER 3 DAYS Physical Exam HEENT: Neck Supple W Full Motion Chest: Symmetric LUNGS: Other (diminished bases) Heart: S1S2, irregularly irregular (Aflutter) Abdomen: Soft N/T Extremities: Other (1-2+ LLE edema. Right BKA) Neurology: alert, follow commands Assessment Assessment 1. Acute on chronic hypoxic respiratory failure secondary to acute COPD exacerbation, pneumonia and mild acute on chronic systolic heart failure. 2. Acute on chronic systolic heart failure; better compensated following IV diuresis 3. Coronary artery disease s/p coronary artery bypass surgery (AGUILAR to LAD, SVG to D2, SVG to OM and SVG to PDA) in 2012. Stable. CP free. 4. Mild troponin elevation; peak 0.06. Most probably demand ischemia. Echo 05/2018 showed LVEF 35-40%. 5. Bioprosthetic AVR, stable. Recent echo with normal function. 6. Permanent AFIB/flutter; notable for 4 sec pause yesterday and intermittent 2-3 sec. 7. 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 Hypertension: controlled 9. PAD s/p RBKA and left toe amputations, appears stable clinically 8. DM2: per IM 9. Hyperlipidemia; statin therapy 10. Chronic coumadin therapy: INR 4.2 hold dose today 11. Anemia: Hgb 7, no obvious bleed, S/P transfusion 12. 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 EF 35-40 Recommendations 1. Continue with lasix therapy. Continue with metoprolol, DC digoxin and check level. 2. Continue secondary prevention; ASA, satin, BB, ACEi 3. Poor normalizer prognosis, consider hospice. if aggressive is continued then PPM will need to be considered. 4. Lung optimization as per pulmonary. VERONIKA VANCE TOY DEPARTMENT MANAGER June 26, 2018 13:44
--- NOTE | 2018-06-26 14:00 | PDOC ---
PROGRESS NOTES Assessment Assessment Metabolic encephalopathy. Seizure. Respiratory distress. Leukocytosis. Necrotic right toes, s/p right BKA. AFib. CAD, s/p CABG. CHF. DM. HTN. HLD. 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 Right BKA. RECOMMENDATIONS/PLAN: EEG. Treat medical diseases. Placement issues. OT/PT. Discussed with his on a daily basis at bedside in ICU. HCT on 05/22/18 and 06/24/18: negative for acute findings. HISTORY OF THE PRESENT ILLNESS: This is a 78-year-old male who was discharged 06/22 after treatment for pneumonia and sepsis. This afternoon he became dyspneic with SpO2 in low 80s, so he was brought back to ER. On arrival to ER his saturations are above 95% on 3 L by nasal canula which is at his baseline O2 requirement. Received breathing treatment in ED with improvement in his respiratory effort. He has been having MS changes, further declined cognitive function, so he was hospitalized and neurology was requested for consultation. Past Medical History A-Fib, Anemia, Arthritis, CAD, CHF, COPD, Depression, Diabetes-Type II, High Cholesterol, Hypertension, MRSA, Seizure, Stroke, bronchiolitis obliterans, TREMORS,NECROTIC RT TOES, RT HEEL, LT OUTER ANKLE Cardiovascular: AFIB, HTN, AL Pulmonary: Asthma, Bronchitis, COPD, Pneumonia, Other CENTRAL NERVOUS SYSTEM: CVA, Periperal neuropathy GI: Other Heme/Onc: No pertinent hx Hepatobiliary: No pertinent hx Psych: Depression Musculoskeletal: Osteoarthritis Rheumatologic: No pertinent hx Infectious disease: No pertinent hx Renal/: Other Endocrine: Diabetes Past Surgical History Appendectomy, Coronary Bypass Surgery, MULTIPLE TOE AMP, ROTATOR CUFF, BOVINE VALVE, LT HIP Family History Coronary Artery Disease, HLD, Hypertension Social History Smoke: No ALCOHOL: none Drugs: None Allergies Coded Allergies: Fentanyl (Verified Allergy, Intermediate, 06/17/18) Per pt : agitation and difficulty awakening pt after I S O L A T I O N *CONTACT* (Verified Allergy, Unknown, 05/23/18), mrsa MEDICATIONS: Refer to MAR REVIEW OF SYSTEMS: Constitutional: No malnutrition, weight loss, cachexia. Head: No traumatic brain or head injury. Skin: No edema, or rash. Ear: No infection. Eyes: No vision loss or color blindness. Nose: No bleeding or purulent discharges. Hearing: Hearing decrease. Neck: No injury. Cardiac: CAD, s/p CABG, AFib, HTN, HLD. Pulmonary: No COPD. GI: No GI ulcer, GI bleeding. Urinary/genital: UTI. Endocrinologic: Diabetes Mellitus, obesity. Skeletomuscular: Generalized weakness. Neurological: see HP. Psychiatric: Denies drug use/abuse. Otherwise, not [id number] review of systems. PHYSICAL EXAMINATION: General appearance is in subacute distress. HEENT: Normocephalic and nontraumatic. Eyes, nose, ears, and throat are unremarkable. Neck is supple. No lymphadenopathy. No crepitus. Cardiovascular: S1, S2, regular rate and rhythm. Pulmonary: Decreased to auscultation bilaterally. Abdomen: Bowel sounds are positive. Extremities: No rash or edema. No restriction of range of motion NEUROLOGICAL EXAMINATION: Awake. Not fully oriented to time, but knew place and person. PERRL. EOMI. CN: no focal findings. Muscle tone: Increased in left side. Within normal at right side. Muscle strength: 2 left side, 4 right UE. Right LE BKA. DTR: 2 Plantar reflex: Neutral response left side, BKA right side. Gait: not able to walk. Sensory exam: no acute abnormal findings. Not able to access cerebellar signs due to not follow commands. F-T-N test not performed. Objective Objective Vital Signs Date Time Temp Pulse Resp B/P (MAP) Pulse Ox O2 Delivery O2 Flow Rate FiO2 06/26/18 13:00 97.7 66 17 138/62 97.7 06/26/18 12:20 Nasal Cannula 2.0 06/26/18 11:00 93 l Intake and Output 06/26/18 06:59 Intake Total 1230 ml Output Total 1600 ml Balance -370 ml Intake Oral 930 ml IV Total 300 ml Output Urine Total 1600 ml Vitals Signs Vitals VS - Last 72 Hours, by Label Date Time Temp Pulse Resp B/P (MAP) Pulse Ox O2 Delivery O2 Flow Rate FiO2 06/26/18 13:00 97.7 66 17 138/62 97.7 06/26/18 12:20 Nasal Cannula 2.0 06/26/18 12:00 97.6 69 16 125/57 97.6 06/26/18 11:00 97.5 76 9 149/66 (93) 93 Nasal Cannula 2.0 97.5 06/26/18 11:00 97.5 76 9 149/66 97.5 06/26/18 10:45 97.6 68 9 147/58 97.6 06/26/18 10:35 97.6 68 9 147/58 97.6 06/26/18 09:55 68 120/67 06/26/18 09:54 68 120/67 06/26/18 09:53 68 120/67 06/26/18 09:51 68 120/67 06/26/18 09:35 97.8 99 18 120/67 97.8 06/26/18 08:35 97.9 99 11 151/61 97.9 06/26/18 08:20 97.7 68 7 136/58 97.7 06/26/18 08:00 Nasal Cannula 2.0 06/26/18 07:57 98 Nasal Cannula 2.0 06/26/18 07:00 97.7 68 7 136/58 (84) 97 Nasal Cannula 2.0 97.7 06/26/18 02:55 98.0 66 19 112/62 (79) 98 Nasal Cannula 2.0 98.0 06/26/18 00:59 95 Nasal Cannula 2.0 06/26/18 00:00 Nasal Cannula 2.0 06/25/18 22:59 98.4 68 12 128/63 (84) 96 Nasal Cannula 2.0 98.4 06/25/18 20:54 87 125/55 06/25/18 20:53 87 125/55 06/25/18 19:50 Nasal Cannula 2.0 06/25/18 19:47 98.3 87 16 125/55 (78) 96 Nasal Cannula 2.0 98.3 06/25/18 19:41 100 Nasal Cannula 2.0 06/25/18 17:41 Nasal Cannula 2.0 06/25/18 16:34 100 Nasal Cannula 2.0 06/25/18 14:45 98.0 53 12 114/45 (68) 98 Nasal Cannula 2.0 98.0 06/25/18 14:00 50 114/45 06/25/18 13:20 99 Nasal Cannula 2.0 06/25/18 11:00 69 10 118/54 (75) 100 Nasal Cannula 2.0 06/25/18 09:28 69 135/53 06/25/18 09:27 69 135/53 06/25/18 09:26 69 135/53 06/25/18 09:26 69 135/53 06/25/18 09:13 98 Nasal Cannula 2.0 06/25/18 08:00 Nasal Cannula 2.0 06/25/18 07:30 97.7 69 18 135/53 (80) 98 Nasal Cannula 2.0 97.7 Laboratory Laboratory Laboratory Tests Test 06/25/18 17:31 06/25/18 19:10 06/25/18 21:26 06/25/18 22:00 Glucose (Fingerstick) 211 mg/dL (70-99) 199 mg/dL (70-99) Random Vancomycin Level 20.8 mcg/mL Urine Color Yellow Urine Clarity Clear Urine pH 6.5 Urine Specific [place] 1.025 Urine Protein Negative mg/dL (NEG-TRACE) Urine Glucose (UA) Negative mg/dL (NEG) Urine Ketones (Stick) Negative mg/dL (NEG) Urine Blood Negative (NEG) Urine Nitrite Negative (NEG) Urine Bilirubin Negative (NEG) Urine Urobilinogen Dipstick 1.0 mg/dL (0.2 mg/dL) Urine Leukocyte Esterase Negative (NEG) Urine RBC 0 /HPF (0-2) Urine WBC Occ /HPF (0-4) Urine Squamous Epithelial Cells Occ /LPF Urine Bacteria 0 /HPF (0-FEW) Urine Mucus Slight /LPF Test 06/26/18 03:55 06/26/18 13:14 White Blood Count 8.9 x10^3/uL (4.0-11.0) Red Blood Count 2.67 x10^6/uL (4.30-5.70) Hemoglobin 7.0 g/dL (13.0-17.5) Hematocrit 22.4 % (39.0-53.0) Mean Corpuscular Volume 84 fL (79-100) Mean Corpuscular Hemoglobin 26 pg (25-35) Mean Corpuscular Hemoglobin Concent 31 g/dL (31-37) Red Cell Distribution Width 16.8 % (11.5-14.5) Platelet Count 245 x10^3/uL (140-400) Neutrophils (%) (Auto) 73 % (31-73) Lymphocytes (%) (Auto) 11 % (24-48) Monocytes (%) (Auto) 10 % (0-9) Eosinophils (%) (Auto) 6 % (0-3) Basophils (%) (Auto) 0 % (0-3) Neutrophils # (Auto) 6.5 x10^3uL (1.8-7.7) Lymphocytes # (Auto) 1.0 x10^3/uL (1.0-4.8) Monocytes # (Auto) 0.9 x10^3/uL (0.0-1.1) Eosinophils # (Auto) 0.5 x10^3/uL (0.0-0.7) Basophils # (Auto) 0.0 x10^3/uL (0.0-0.2) Prothrombin Time 40.5 SEC (11.7-14.0) Prothromb Time International Ratio 4.2 (0.8-1.1) Sodium Level 141 mmol/L (136-145) Potassium Level 3.9 mmol/L (3.5-5.1) Chloride Level 105 mmol/L (98-107) Carbon Dioxide Level 30 mmol/L (21-32) Anion Gap 6 (6-14) Blood Urea Nitrogen 19 mg/dL (8-26) Creatinine 1.1 mg/dL (0.7-1.3) Estimated GFR (Cockcroft-Gault) 65.1 BUN/Creatinine Ratio 17 (6-20) Glucose Level 187 mg/dL (70-99) Calcium Level 8.0 mg/dL (8.5-10.1) Total Bilirubin 0.3 mg/dL (0.2-1.0) Aspartate Amino Transf (AST/SGOT) 21 U/L (15-37) Alanine Aminotransferase (ALT/SGPT) 26 U/L (16-63) Alkaline Phosphatase 72 U/L (46-116) Total Protein 5.8 g/dL (6.4-8.2) Albumin 1.6 g/dL (3.4-5.0) Albumin/Globulin Ratio 0.4 (1.0-1.7) Glucose (Fingerstick) 174 mg/dL (70-99) Microbiology 06/23/18 Blood Culture - Preliminary, Resulted NO GROWTH AFTER 3 DAYS Medication Medications Current Medications Alteplase, Recombinant (Cathflo For Central Catheter Clearance) 1 mg 1X ONCE IN T CAT Last administered on 06/26/18at 13:47; Start 06/26/18 at 10:30; Stop 06/26/18 at 10:31; Status DC Metoprolol Tartrate (Lopressor) 25 mg BID PO Last administered on 06/26/18at 09:54; Start 06/25/18 at 21:00 Oxycodone/ Acetaminophen (Percocet 5/325) 1 tab PRN Q4HRS PRN PO PAIN Last administered on 06/26/18at 00:00; Start 06/25/18 at 15:00 Potassium Chloride (Klor-Con) 20 meq 1X ONCE PO Last administered on 06/25/18at 17:39; Start 06/25/18 at 15:45; Stop 06/25/18 at 15:46; Status DC Potassium Chloride (Klor-Con) 20 meq [id number] PO ; Start 06/26/18 at 08:00; Status Cancel Vancomycin HCl (Vancomycin Random Level) 1 each 1X ONCE MC Last administered on 06/25/18at 19:00; Start 06/25/18 at 19:00; Stop 06/25/18 at 19:01; Status DC Vancomycin HCl 1 gm/Sodium Chloride 250 ml @ 250 mls/hr Q24H IV Last administered on 06/26/18at 00:20; Start 06/26/18 at 00:00 Warfarin Sodium (Coumadin - No Dose Today) 1 each 1X WARF ONCE MC Last administered on 06/25/18at 16:00; Start 06/25/18 at 16:00; Stop 06/25/18 at 16 :01; Status DC Warfarin Sodium (Coumadin - No Dose Today) 1 each 1X WARF ONCE MC Last administered on 06/26/18at 11:54; Start 06/26/18 at 16:00; Stop 06/26/18 at 16:01 Comment Review of Relevant I have reviewed the following items navi (where applicable) has been applied. LIA MALIN MD June 26, 2018 14:00
--- NOTE | 2018-06-26 14:23 | PDOC2 ---
PALLIATIVE CARE Palliative Care Note Palliative Care Consult requested by Dr. Miguel Arroyo to address patient's wishes to "go home" does not want to return to hospital or to go to a Nursing Facility. Would accept Hospice Support. Patient alert and oriented. States "I know I'm dying and just want to go home" 0900 spoke with and informed her of patient wishes. Patient had [facility] at home 1230 Spoke with patient and Aura. Dr. Gonzales here. states patient can't come home--too difficult for her to handle without him getting stronger first. Would need children's input before making any decisions. Family can not meet until . Plan: Family Meeting to discuss plan of care. DEANDRA LACY June 26, 2018 14:23
[2018-06-26 14:49] LABS: HEMATOCRIT 29.7 % (39.0-53.0); HEMOGLOBIN 9.6 g/dL (13.0-17.5)
[2018-06-26 14:49] LABS: DIG 1.5 ng/mL (0.9-2.0)
[2018-06-26] MEDS: MORPHINE SULFATE 4 MG/ML VIAL. IV PRN (16:47)
[2018-06-26] MEDS: risperiDONE 1 MG TABLET. PO SCH (21:14)
[2018-06-26] MEDS: ATORVASTATIN CALCIUM 40 MG TABLET. PO SCH (21:15)
[2018-06-27] MEDS: VANCOMYCIN 1 GM in IV NORMAL SALINE 250ML 250 ML IV SCH (00:41)
[2018-06-27 03:00] VITALS: BP 140/60
--- NOTE | 2018-06-27 05:39 | PDOC ---
Infectious Disease Note Subjective Subjective sleepy , but ok by DANNY CASTRO no n/v/d/ Vital Sign Vital Signs Vital Signs Date Time Temp Pulse Resp B/P (MAP) Pulse Ox O2 Delivery O2 Flow Rate FiO2 06/27/18 03:00 97.6 70 140/60 (86) 93 Room Air 97.6 06/26/18 23:00 18 06/26/18 20:00 2.0 Physical Exam PHYSICAL EXAM GENERAL: in bed,, alert, HENT: ISMAEL, Oral cavity/pharynx pink, dry. No thrush LUNGS: Clear anteriorly, nonlabored CV: S1 S2, regular ABD: Obese, soft, NT : [place] EXT: 2+ edema left leg. Right BKA stump incision healing well, steri strips in place. SKIN: No rash SENIOR DATA MINING ANALYST: Alert, responding appropriately RUE-PICC (POA) clean Labs Lab Laboratory Tests Test 06/26/18 13:14 06/26/18 14:10 06/26/18 14:45 06/26/18 16:46 Glucose (Fingerstick) 174 mg/dL (70-99) 214 mg/dL (70-99) Digoxin Level 1.5 ng/mL (0.9-2.0) Digoxin Last Dose Date 06/26/18 Digoxin Last Dose Time 0900 Hemoglobin 9.6 g/dL (13.0-17.5) Hematocrit 29.7 % (39.0-53.0) Mean Corpuscular Hemoglobin Concent 32 g/dL (31-37) Micro Microbiology 06/23/18 Blood Culture - Preliminary, Resulted NO GROWTH AFTER 2 DAYS Objective Assessment Persistent right perihilar infiltrate and pleural effusions Leukocytosis, had been on prednisone at [place] h/o E. coli UTI, discharged on Keflex through 06/24 h/o MRSA bacteremia with sepsis from 05/18. Discharged on Dapto till 07/02. CPK 31 -CRYSTAL done no vegetations 05/21; BC from 05/20 & onward were neg Acute on chronic CHF h/o MRSA and Enterobacter ( R Augmentin/cefuroxime) infection h/o PSA ( R quinolones & I imipenem) infection Bioprosthetic aortic valve A- fib, anticoagulation on warfarin Diabetes Type II Seizure disorder, on Keppra H/o cholecystitis - U/S 06/18 Sludge in the gallbladder. No cholelithiasis or cholecystitis. No biliary dilatation visit is for CHF Plan Plan of Care Continue vancomycin Monitor WBC/temp and renal function closely Procalcitonin 0.40 BC neg so far PICC maintenance care Leg elevation may need to revisit hospice at home, Pat to work on it d/w DAYANA WONG MD June 27, 2018 05:39
[2018-06-27 07:00] VITALS: BP 162/59
[2018-06-27 07:19] LABS: PROTHROMBIN TIME PATIENT 28.2 SEC (11.7-14.0)
[2018-06-27] MEDS: IPRATROPIUM BROMIDE 0.5 MG/2.5 ML NEBU. NEB SCH ×4 (07:23→20:00)
[2018-06-27] MEDS: BUDESONIDE 0.5 MG/2 ML NEBU. NEB SCH ×2 (07:23→20:00)
--- NOTE | 2018-06-27 08:55 | PDOC ---
PROGRESS NOTES Chief Complaint Chief Complaint 1. Acute on chronic hypoxic respiratory failure secondary to acute COPD exacerbation, pneumonia and mild acute on chronic systolic heart failure. 2. Acute on chronic systolic heart failure; better compensated following IV diuresis 3. Coronary artery disease s/p coronary artery bypass surgery (AGUILAR to LAD, SVG to D2, SVG to OM and SVG to PDA) in 2012. Stable. CP free. 4. Mild troponin elevation; peak 0.06. Most probably demand ischemia. Echo 05/2018 showed LVEF 35-40%. 5. Bioprosthetic AVR, stable. Recent echo with normal function. 6. Permanent AFIB/flutter; notable for 4 sec pause yesterday and intermittent 2-3 sec. 7. 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 Hypertension: controlled 9. PAD s/p RBKA and left toe amputations, appears stable clinically 8. DM2: per IM 9. Hyperlipidemia; statin therapy 10. Chronic coumadin therapy: INR 4.2 hold dose today 11. Anemia: Hgb 7, no obvious bleed, S/P transfusion 12. 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 EF 35-40 13, DNR History of Present Illness History of Present Illness MULTIPLE past medical history/comorbidities Right amputee, one month ago, has an electric wheelchair at home but unable to transfer to the wheelchair even Patient wants hospice, unable to take patient home Family meet plan for tomorrow - waiting for other family members Patient eats less than 50% of regular tray Sleeps okay Plan family meeting tomorrow He wants to get up to chair today-has been in bed all day yesterday cont other supportive meds Vitals Vitals Vital Signs Date Time Temp Pulse Resp B/P (MAP) Pulse Ox O2 Delivery O2 Flow Rate FiO2 06/27/18 07:23 96 Room Air 06/27/18 07:00 97.9 74 20 162/59 (93) 97.9 06/26/18 20:00 2.0 Physical Exam Physical Exam GENERAL: in bed,, alert, HENT: ISMAEL, Oral cavity/pharynx pink, dry. No thrush LUNGS: Clear anteriorly, nonlabored CV: S1 S2, regular ABD: Obese, soft, NT : [place] EXT: 2+ edema left leg. Right BKA stump incision healing well, steri strips in place. SKIN: No rash [employer]: Alert, responding appropriately RUE-PICC (POA) clean General: Alert, Oriented X3, Cooperative, No acute distress, mild distress Heart: Other (HR irregular) Lungs: Wheezing, Crackles, Other Abdomen: Normal bowel sounds, Soft, No tenderness Extremities: No cyanosis, Other (RBKA, left toes amputation, 1-2+ edema ) Labs LABS Laboratory Tests Test 06/26/18 13:14 06/26/18 14:10 06/26/18 14:45 06/26/18 16:46 Glucose (Fingerstick) 174 mg/dL (70-99) 214 mg/dL (70-99) Digoxin Level 1.5 ng/mL (0.9-2.0) Digoxin Last Dose Date 06/26/18 Digoxin Last Dose Time 0900 Hemoglobin 9.6 g/dL (13.0-17.5) Hematocrit 29.7 % (39.0-53.0) Mean Corpuscular Hemoglobin Concent 32 g/dL (31-37) Test 06/27/18 06:15 06/27/18 08:03 Prothrombin Time 28.2 SEC (11.7-14.0) Prothromb Time International Ratio 2.7 (0.8-1.1) Glucose (Fingerstick) 147 mg/dL (70-99) Review of Systems Review of Systems Weak, poor appetite, fatigue, tired, no chest pain, no SOA Comment Review of Relevant I have reviewed the following items navi (where applicable) has been applied. Labs Laboratory Tests Test 06/25/18 12:23 06/25/18 17:31 06/25/18 19:10 06/25/18 21:26 Glucose (Fingerstick) 194 mg/dL (70-99) 211 mg/dL (70-99) 199 mg/dL (70-99) Random Vancomycin Level 20.8 mcg/mL Test 06/25/18 22:00 06/26/18 03:55 06/26/18 13:14 06/26/18 14:10 Urine Color Yellow Urine Clarity Clear Urine pH 6.5 Urine Specific [place] 1.025 Urine Protein Negative mg/dL (NEG-TRACE) Urine Glucose (UA) Negative mg/dL (NEG) Urine Ketones (Stick) Negative mg/dL (NEG) Urine Blood Negative (NEG) Urine Nitrite Negative (NEG) Urine Bilirubin Negative (NEG) Urine Urobilinogen Dipstick 1.0 mg/dL (0.2 mg/dL) Urine Leukocyte Esterase Negative (NEG) Urine RBC 0 /HPF (0-2) Urine WBC Occ /HPF (0-4) Urine Squamous Epithelial Cells Occ /LPF Urine Bacteria 0 /HPF (0-FEW) Urine Mucus Slight /LPF White Blood Count 8.9 x10^3/uL (4.0-11.0) Red Blood Count 2.67 x10^6/uL (4.30-5.70) Hemoglobin 7.0 g/dL (13.0-17.5) Hematocrit 22.4 % (39.0-53.0) Mean Corpuscular Volume 84 fL (79-100) Mean Corpuscular Hemoglobin 26 pg (25-35) Mean Corpuscular Hemoglobin Concent 31 g/dL (31-37) Red Cell Distribution Width 16.8 % (11.5-14.5) Platelet Count 245 x10^3/uL (140-400) Neutrophils (%) (Auto) 73 % (31-73) Lymphocytes (%) (Auto) 11 % (24-48) Monocytes (%) (Auto) 10 % (0-9) Eosinophils (%) (Auto) 6 % (0-3) Basophils (%) (Auto) 0 % (0-3) Neutrophils # (Auto) 6.5 x10^3uL (1.8-7.7) Lymphocytes # (Auto) 1.0 x10^3/uL (1.0-4.8) Monocytes # (Auto) 0.9 x10^3/uL (0.0-1.1) Eosinophils # (Auto) 0.5 x10^3/uL (0.0-0.7) Basophils # (Auto) 0.0 x10^3/uL (0.0-0.2) Prothrombin Time 40.5 SEC (11.7-14.0) Prothromb Time International Ratio 4.2 (0.8-1.1) Sodium Level 141 mmol/L (136-145) Potassium Level 3.9 mmol/L (3.5-5.1) Chloride Level 105 mmol/L (98-107) Carbon Dioxide Level 30 mmol/L (21-32) Anion Gap 6 (6-14) Blood Urea Nitrogen 19 mg/dL (8-26) Creatinine 1.1 mg/dL (0.7-1.3) Estimated GFR (Cockcroft-Gault) 65.1 BUN/Creatinine Ratio 17 (6-20) Glucose Level 187 mg/dL (70-99) Calcium Level 8.0 mg/dL (8.5-10.1) Total Bilirubin 0.3 mg/dL (0.2-1.0) Aspartate Amino Transf (AST/SGOT) 21 U/L (15-37) Alanine Aminotransferase (ALT/SGPT) 26 U/L (16-63) Alkaline Phosphatase 72 U/L (46-116) Total Protein 5.8 g/dL (6.4-8.2) Albumin 1.6 g/dL (3.4-5.0) Albumin/Globulin Ratio 0.4 (1.0-1.7) Glucose (Fingerstick) 174 mg/dL (70-99) Digoxin Level 1.5 ng/mL (0.9-2.0) Digoxin Last Dose Date 06/26/18 Digoxin Last Dose Time 0900 Test 06/26/18 14:45 06/26/18 16:46 06/27/18 06:15 06/27/18 08:03 Hemoglobin 9.6 g/dL (13.0-17.5) Hematocrit 29.7 % (39.0-53.0) Mean Corpuscular Hemoglobin Concent 32 g/dL (31-37) Glucose (Fingerstick) 214 mg/dL (70-99) 147 mg/dL (70-99) Prothrombin Time 28.2 SEC (11.7-14.0) Prothromb Time International Ratio 2.7 (0.8-1.1) Laboratory Tests Test 06/26/18 13:14 06/26/18 14:10 06/26/18 14:45 06/26/18 16:46 Glucose (Fingerstick) 174 mg/dL (70-99) 214 mg/dL (70-99) Digoxin Level 1.5 ng/mL (0.9-2.0) Digoxin Last Dose Date 06/26/18 Digoxin Last Dose Time 0900 Hemoglobin 9.6 g/dL (13.0-17.5) Hematocrit 29.7 % (39.0-53.0) Mean Corpuscular Hemoglobin Concent 32 g/dL (31-37) Test 06/27/18 06:15 06/27/18 08:03 Prothrombin Time 28.2 SEC (11.7-14.0) Prothromb Time International Ratio 2.7 (0.8-1.1) Glucose (Fingerstick) 147 mg/dL (70-99) Microbiology 06/23/18 Blood Culture - Preliminary, Resulted NO GROWTH AFTER 4 DAYS Medications Current Medications Albuterol/ Ipratropium (Duoneb) 3 ml 1X ONCE NEB Last administered on 06/23/18at 04:06; Start 06/23/18 at 03:30; Stop 06/23/18 at 03:33; Status DC Dexamethasone Sodium Phosphate (Decadron) 10 mg 1X ONCE IV Last administered on 06/23/18at 04:33; Start 06/23/18 at 03:30; Stop 06/23/18 at 03:33; Status DC Aspirin (Alexander Aspirin) 325 mg 1X ONCE PO Last administered on 06/23/18at 04:33; Start 06/23/18 at 04:15; Stop 06/23/18 at 04:16; Status DC Sodium Chloride 1,000 ml @ 1,000 mls/hr 1X ONCE IV ; Start 06/23/18 at 04:15; Stop 06/23/18 at 04:33; Status DC Ondansetron HCl (Zofran) 4 mg PRN Q8HRS PRN IV NAUSEA/VOMITING; Start 06/23/18 at 04:15; Stop 06/24/18 at 04:14; Status DC Acetaminophen (Tylenol) 650 mg PRN Q4HRS PRN PO FEVER; Start 06/23/18 at 04:15; Stop 06/24/18 at 04:14; Status DC Albuterol/ Ipratropium (Duoneb) 3 ml RTQID NEB Last administered on 06/23/18at 08:01; Start 06/23/18 at 08:00; Stop 06/23/18 at 10:57; Status DC Insulin Human Lispro (HumaLOG) 0-5 UNITS TIDWMEALS SQ Last administered on 06/26/18at 17:44; Start 06/23/18 at 08:00 Dextrose (Dextrose 50%-Water Syringe) 12.5 gm PRN Q15MIN PRN IV SEE COMMENTS; Start 06/23/18 at 04:15 Morphine Sulfate (Morphine Sulfate) 4 mg PRN Q4HRS PRN IV MODERATE PAIN 4-6 Last administered on 06/26/18at 16:47; Start 06/23/18 at 04:15 Iohexol (Omnipaque 350 Mg/ml) 100 ml 1X ONCE IV Last administered on 06/23/18at 04:58; Start 06/23/18 at 05:00; Stop 06/23/18 at 05:01; Status DC Info (CONTRAST GIVEN -- Rx MONITORING) 1 each PRN DAILY PRN MC SEE COMMENTS; Start 06/23/18 at 05:00; Stop 06/25/18 at 04:59; Status DC Piperacillin Sod/ Tazobactam Sod 4.5 gm/Sodium Chloride 100 ml @ 200 mls/hr 1X ONCE IV Last administered on 06/23/18at 06:12; Start 06/23/18 at 06:00; Stop 06/23/18 at 06:29; Status DC Vancomycin HCl 2 gm/Sodium Chloride 500 ml @ 250 mls/hr 1X ONCE IV Last administered on 06/23/18at 08:02; Start 06/23/18 at 06:00; Stop 06/23/18 at 07:59; Status DC Ipratropium [place] (Atrovent) 0.5 mg RTQID NEB Last administered on 06/27/18at 07:23; Start 06/23/18 at 12:00 Famotidine (Pepcid Vial) 20 mg BID IVP Last administered on 06/26/18at 21:15; Start 06/23/18 at 21:00 Vancomycin HCl (Vanco Per Pharmacy) 1 each PRN DAILY PRN MC SEE COMMENTS Last administered on 06/25/18at 10:24; Start 06/23/18 at 11:45 Piperacillin Sod/ Tazobactam Sod 3.375 gm/Sodium Chloride 50 ml @ 100 mls/hr Q6HRS IV Last administered on 06/26/18at 05:35; Start 06/23/18 at 12:00; Stop 06/26/18 at 07:56; Status DC Vancomycin HCl 1.5 gm/Sodium Chloride 500 ml @ 250 mls/hr Q24H IV Last administered on 06/24/18 08:53; Start 06/24/18 at 08:00; Stop 06/25/18 at 10:17; Status DC Vancomycin HCl (Vancomycin Trough Level) 1 each 1X ONCE MC Last administered on 06/25/18 10:09; Start 06/25/18 at 07:30; Stop 06/25/18 at 07:31; Status DC Aspirin (Ecotrin) 81 mg DAILYWBKFT PO Last administered on 06/26/18 09:51; Start 06/23/18 at 18:15 Digoxin (Lanoxin) 125 mcg DAILY PO Last administered on 06/26/18 09:51; Start 06/24/18 at 09:00; Stop 06/26/18 at 13:45; Status DC Furosemide (Lasix) 40 mg DAILY PO Last administered on 06/24/18 08:56; Start 06/24/18 at 09:00; Stop 06/24/18 at 12:27; Status DC Gabapentin (Neurontin) 300 mg DAILY PO Last administered on 06/26/18 09:54; Start 06/24/18 at 09:00 Lisinopril (Prinivil) 20 mg DAILY PO Last administered on 06/24/18 08:54; St art 06/24/18 at 09:00; Stop 06/24/18 at 12:27; Status DC Metoprolol Tartrate (Lopressor) 50 mg BID PO Last administered on 06/25/18 09:26; Start 06/23/18 at 21:00; Stop 06/25/18 at 18:09; Status DC Atorvastatin Calcium (Lipitor) 80 mg QHS PO Last administered on 06/26/18 21:15; Start 06/23/18 at 21:00 Hydralazine HCl (Apresoline) 10 mg TID PO Last administered on 06/26/18 21:15; Start 06/23/18 at 21:00 Levetiracetam (Keppra) 1,250 mg BID PO Last administered on 06/26/18 21:15; Start 06/23/18 at 21:00 Multivitamins (Thera M Plus) 1 tab DAILY PO Last administered on 06/26/18 09:54; Start 06/24/18 at 09:00 Potassium Chloride (Klor-Con) 20 meq DAILYWBKFT PO Last administered on 06/26/18 09:51; Start 06/23/18 at 18:30 Risperidone (RisperDAL) 1 mg QHS PO Last administered on 06/26/18 21:14; Start 06/23/18 at 21:00 Zonisamide (Zonegran) 400 mg DAILY PO Last administered on 06/26/18 09:50; Start 06/23/18 at 18:00 Warfarin Sodium (Coumadin Per Pharmacy) 1 each PRN DAILY PRN MC SEE COMMENTS Last administered on 06/26/18 11:26; Start 06/23/18 at 18:30 Warfarin Sodium (Coumadin) 4 mg DAILY16 PO Last administered on 06/23/18 2 1:19; Start 06/23/18 at 19:30; Stop 06/24/18 at 15:48; Status DC Budesonide (Pulmicort) 0.5 mg RTBID NEB Last administered on 06/27/18 07:23; Start 06/24/18 at 08:00 Lisinopril (Prinivil) 40 mg DAILY PO Last administered on 06/26/18 09:55; Start 06/25/18 at 09:00 Furosemide (Lasix) 40 mg DAILY IVP Last administered on 06/26/18 09:50; Start 06/24/18 at 12:30 Lactobacillus Rhamnosus (Culturelle) 1 cap BID PO Last administered on 06/26/18 21:14; Start 06/24/18 at 21:00 Warfarin Sodium (Coumadin - No Dose Today) 1 each 1X WARF ONCE MC Last administered on 06/24/18 15:59; Start 06/24/18 at 16:00; Stop 06/24/18 at 16:01; Status DC Warfarin Sodium (Coumadin - No Dose Today) 1 each 1X WARF ONCE MC Last administered on 06/25/18 16:00; Start 06/25/18 at 16:00; Stop 06/25/18 at 16:01; Status DC Vancomycin HCl (Vancomycin Random Level) 1 each 1X ONCE MC Last administered on 06/25/18 19:00; Start 06/25/18 at 19:00; Stop 06/25/18 at 19:01; Status DC Oxycodone/ Acetaminophen (Percocet 5/325) 1 tab PRN Q4HRS PRN PO PAIN Last administered on 06/26/18at 00:00; Start 06/25/18 at 15:00 Potassium Chloride (Klor-Con) 20 meq 1X ONCE PO Last administered on 06/25/18at 17:39; Start 06/25/18 at 15:45; Stop 06/25/18 at 15:46; Status DC Potassium Chloride (Klor-Con) 20 meq DAILYWBKFT PO ; Start 06/26/18 at 08:00; Status Cancel Metoprolol Tartrate (Lopressor) 25 mg BID PO Last administered on 06/26/18at 21:15; Start 06/25/18 at 21:00 Vancomycin HCl 1 gm/Sodium Chloride 250 ml @ 250 mls/hr Q24H IV Last administered on 06/27/18at 00:41; Start 06/26/18 at 00:00 Alteplase, Recombinant (Cathflo For Central Catheter Clearance) 1 mg 1X ONCE INT CAT Last administered on 06/26/18at 13:47; Start 06/26/18 at 10:30; Stop 06/26/18 at 10:31; Status DC Warfarin Sodium (Coumadin - No Dose Today) 1 each 1X WARF ONCE MC Last administered on 06/26/18at 11:54; Start 06/26/18 at 16:00; Stop 06/26/18 at 16:01; Status DC Active Scripts Active Daptomycin 350 Mg Vial 350 Mg IV DAILY 10 Days Cephalexin 250 Mg Capsule 500 Mg PO QID 3 Days Percocet 5-325 Mg Tablet (Oxycodone/Acetaminophen) 1 Each Tablet 1 Tab PO PRN Q4HRS PRN 6 Days Digoxin 125 Mcg Tablet 125 Mcg PO DAILY Furosemide 40 Mg Tablet 40 Mg PO DAILY Metoprolol Tartrate 50 Mg Tablet 50 Mg PO BID [Warfarin Sodium] 1 EACH Each 1 Each MC PRN DAILY PRN Lisinopril 20 Mg Tablet 20 Mg PO DAILY Duoneb 0.5-3(2.5) Mg/3 Ml (Albuterol/Ipratropium) 3 Ml Ampul.neb 3 Ml NEB Q4HRS W/A 30 Days Hydralazine Hcl 10 Mg Tablet 10 Mg PO TID Reported Zonisamide 100 Mg Capsule 400 Mg PO DAILY Multivitamins (Multivitamin) 1 Each Tablet 1 Tab PO DAILY Levetiracetam 250 Mg Tablet 1,250 Mg PO BID Atorvastatin Calcium 80 Mg Tablet 1 Tab PO DAILY Acetaminophen 500 Mg Tablet 1 Tab PO PRN Q6HRS PRN Albuterol Sulfate Hfa Inhaler (Albuterol Sulfate) 8.5 Gm Hfa.aer.ad 2 Puff IH PRN Q6HRS PRN Aspirin Ec (Aspirin) 325 Mg Tablet.dr 81 Mg PO DAILY Warfarin Sodium 5 Mg Tablet 6 Mg PO DAILY Warfarin Sodium 2.5 Mg Tablet 2.5 Mg PO 3X/WEEK monday,monday, Gabapentin (Gabapentin) 300 Mg Capsule 300 Mg PO DAILY Risperidone 1 Mg Tablet 1 Mg PO HS Novolog (Insulin Aspart) 100 Unit/1 Ml Vial 10 Unit SQ DAILYAC Potassium 99 Mg Tablet 20 Meq PO DAILY Vitals/I & O Vital Sign - Last 24 Hours 06/26/18 06/26/18 06/26/18 06/26/18 09:35 09:51 09:53 09:54 Temp 97.8 97.8 Pulse 99 68 68 68 Resp 18 B/P (MAP) 120/67 120/67 120/67 120/67 06/26/18 06/26/18 06/26/18 06/26/18 09:55 10:35 10:45 11:00 Temp 97.6 97.6 97.5 97.6 97.6 97.5 Pulse 68 68 68 76 Resp 9 9 9 B/P (MAP) 120/67 147/58 147/58 149/66 06/26/18 06/26/18 06/26/18 06/26/18 11:00 12:00 12:20 13:00 Temp 97.5 97.6 97.7 97.5 97.6 97.7 Pulse 76 69 66 Resp 9 16 17 B/P (MAP) 149/66 (93) 125/57 138/62 Pulse Ox 93 O2 Delivery Nasal Cannula Nasal Cannula O2 Flow Rate 2.0 2.0 06/26/18 06/26/18 06/26/18 06/26/18 13:56 14:18 16:00 16:00 Temp 97.6 97.7 97.6 97.7 Pulse 66 67 69 Resp 7 18 B/P (MAP) 138/62 140/68 152/62 (92) Pulse Ox 96 O2 Delivery Nasal Cannula Nasal Cannula O2 Flow Rate 2.0 2.0 06/26/18 06/26/18 06/26/18 06/26/18 16:08 16:47 17:44 19:00 Temp 97.7 97.7 Pulse 72 B/P (MAP) 158/66 (96) Pulse Ox 98 98 96 O2 Delivery Nasal Cannula Nasal Cannula Nasal Cannula Nasal Cannula O2 Flow Rate 0.5 0.5 2.0 2.0 06/26/18 06/26/18 06/26/18 06/26/18 20:00 21:00 21:15 21:15 Pulse 72 72 B/P (MAP) 158/66 158/66 O2 Delivery Nasal Cannula Room Air O2 Flow Rate 2.0 06/26/18 06/27/18 06/27/18 06/27/18 23:00 03:00 07:00 07:23 Temp 97.9 97.6 97.9 97.9 97.6 97.9 Pulse 68 70 74 Resp 18 20 B/P (MAP) 143/63 (89) 140/60 (86) 162/59 (93) Pulse Ox 95 93 97 96 O2 Delivery Room Air Room Air Room Air Room Air Intake and Output 06/26/18 06/26/18 06/27/18 15:00 23:00 07:00 Intake Total 2527 ml 400 ml 100 ml Output Total 1350 ml 1350 ml 2300 ml Balance 1177 ml -950 ml -2200 ml Nutrition Consultation Dietary Evaluation: Recommendations by RD: Protein supplementation Comments: REC continue w/ADA/cardiac diet as ordered Continue w/MVI REC Glucerna TID (chocolate) REC Vit C 500 mg BID Expected Outcomes/Goals: PO intake to meet >75% est needs Interpretation of weight loss: >1-2% in 1 week Malnutrition Findings: Weight Status: Overweight ARABELLA MARTINEZ MD June 27, 2018 08:55
--- NOTE | 2018-06-27 09:02 | PDOC ---
PULMONARY PROGRESS NOTES Subjective NOT MORE SOA AT BEDSIDE FEEDING PT Vitals Vital Signs Date Time Temp Pulse Resp B/P (MAP) Pulse Ox O2 Delivery O2 Flow Rate FiO2 06/27/18 07:23 96 Room Air 06/27/18 07:00 97.9 74 20 162/59 (93) 97.9 06/26/18 20:00 2.0 ROS: No Nausea, No Chest Pain, No Increase Cough HEENT: Other Lungs: Wheezing, Crackles, Other Cardiovascular: Other (irreg irreg) Abdomen: Soft, Non-tender, Other Neuro Exam: Alert Extremities: Other (edema) Skin: Warm Labs Laboratory Tests Test 06/25/18 12:23 06/25/18 17:31 06/25/18 19:10 06/25/18 21:26 Glucose (Fingerstick) 194 mg/dL (70-99) 211 mg/dL (70-99) 199 mg/dL (70-99) Random Vancomycin Level 20.8 mcg/mL Test 06/25/18 22:00 06/26/18 03:55 06/26/18 13:14 06/26/18 14:10 Urine Color Yellow Urine Clarity Clear Urine pH 6.5 Urine Specific [place] 1.025 Urine Protein Negative mg/dL (NEG-TRACE) Urine Glucose (UA) Negative mg/dL (NEG) Urine Ketones (Stick) Negative mg/dL (NEG) Urine Blood Negative (NEG) Urine Nitrite Negative (NEG) Urine Bilirubin Negative (NEG) Urine Urobilinogen Dipstick 1.0 mg/dL (0.2 mg/dL) Urine Leukocyte Esterase Negative (NEG) Urine RBC 0 /HPF (0-2) Urine WBC Occ /HPF (0-4) Urine Squamous Epithelial Cells Occ /LPF Urine Bacteria 0 /HPF (0-FEW) Urine Mucus Slight /LPF White Blood Count 8.9 x10^3/uL (4.0-11.0) Red Blood Count 2.67 x10^6/uL (4.30-5.70) Hemoglobin 7.0 g/dL (13.0-17.5) Hematocrit 22.4 % (39.0-53.0) Mean Corpuscular Volume 84 fL (79-100) Mean Corpuscular Hemoglobin 26 pg (25-35) Mean Corpuscular Hemoglobin Concent 31 g/dL (31-37) Red Cell Distribution Width 16.8 % (11.5-14.5) Platelet Count 245 x10^3/uL (140-400) Neutrophils (%) (Auto) 73 % (31-73) Lymphocytes (%) (Auto) 11 % (24-48) Monocytes (%) (Auto) 10 % (0-9) Eosinophils (%) (Auto) 6 % (0-3) Basophils (%) (Auto) 0 % (0-3) Neutrophils # (Auto) 6.5 x10^3uL (1.8-7.7) Lymphocytes # (Auto) 1.0 x10^3/uL (1.0-4.8) Monocytes # (Auto) 0.9 x10^3/uL (0.0-1.1) Eosinophils # (Auto) 0.5 x10^3/uL (0.0-0.7) Basophils # (Auto) 0.0 x10^3/uL (0.0-0.2) Prothrombin Time 40.5 SEC (11.7-14.0) Prothromb Time International Ratio 4.2 (0.8-1.1) Sodium Level 141 mmol/L (136-145) Potassium Level 3.9 mmol/L (3.5-5.1) Chloride Level 105 mmol/L (98-107) Carbon Dioxide Level 30 mmol/L (21-32) Anion Gap 6 (6-14) Blood Urea Nitrogen 19 mg/dL (8-26) Creatinine 1.1 mg/dL (0.7-1.3) Estimated GFR (Cockcroft-Gault) 65.1 BUN/Creatinine Ratio 17 (6-20) Glucose Level 187 mg/dL (70-99) Calcium Level 8.0 mg/dL (8.5-10.1) Total Bilirubin 0.3 mg/dL (0.2-1.0) Aspartate Amino Transf (AST/SGOT) 21 U/L (15-37) Alanine Aminotransferase (ALT/SGPT) 26 U/L (16-63) Alkaline Phosphatase 72 U/L (46-116) Total Protein 5.8 g/dL (6.4-8.2) Albumin 1.6 g/dL (3.4-5.0) Albumin/Globulin Ratio 0.4 (1.0-1.7) Glucose (Fingerstick) 174 mg/dL (70-99) Digoxin Level 1.5 ng/mL (0.9-2.0) Digoxin Last Dose Date 06/26/18 Digoxin Last Dose Time 0900 Test 06/26/18 14:45 06/26/18 16:46 06/27/18 06:15 06/27/18 08:03 Hemoglobin 9.6 g/dL (13.0-17.5) Hematocrit 29.7 % (39.0-53.0) Mean Corpuscular Hemoglobin Concent 32 g/dL (31-37) Glucose (Fingerstick) 214 mg/dL (70-99) 147 mg/dL (70-99) Prothrombin Time 28.2 SEC (11.7-14.0) Prothromb Time International Ratio 2.7 (0.8-1.1) Laboratory Tests Test 06/26/18 13:14 06/26/18 14:10 06/26/18 14:45 06/26/18 16:46 Glucose (Fingerstick) 174 mg/dL (70-99) 214 mg/dL (70-99) Digoxin Level 1.5 ng/mL (0.9-2.0) Digoxin Last Dose Date 06/26/18 Digoxin Last Dose Time 0900 Hemoglobin 9.6 g/dL (13.0-17.5) Hematocrit 29.7 % (39.0-53.0) Mean Corpuscular Hemoglobin Concent 32 g/dL (31-37) Test 06/27/18 06:15 06/27/18 08:03 Prothrombin Time 28.2 SEC (11.7-14.0) Prothromb Time International Ratio 2.7 (0.8-1.1) Glucose (Fingerstick) 147 mg/dL (70-99) Medications Active Scripts Medications Dose Route/Sig Max Daily Dose Days Date Category Dose Instructions Daptomycin 350 Mg Vial 350 Mg IV DAILY 10 06/22/18 Rx Cephalexin 250 Mg Capsule 500 Mg PO QID 3 06/22/18 Rx Percocet 5-325 Mg Tablet (Oxycodone/Acetaminophen) 1 Each Tablet 1 Tab PO PRN Q4HRS PRN 6 06/22/18 Rx Digoxin 125 Mcg Tablet 125 Mcg PO DAILY 05/15/16 Rx Furosemide 40 Mg Tablet 40 Mg PO DAILY 05/15/16 Rx Zonisamide 100 Mg Capsule 400 Mg PO DAILY 05/11/16 Reported Multivitamins (Multivitamin) 1 Each Tablet 1 Tab PO DAILY 05/11/16 Reported Levetiracetam 250 Mg Tablet 1,250 Mg PO BID 05/11/16 Reported Atorvastatin Calcium 80 Mg Tablet 1 Tab PO DAILY 05/11/16 Reported Acetaminophen 500 Mg Tablet 1 Tab PO PRN Q6HRS PRN 05/11/16 Reported Metoprolol Tartrate 50 Mg Tablet 50 Mg PO BID 02/24/16 Rx [Warfarin Sodium] 1 EACH Each 1 Each MC PRN DAILY PRN 02/24/16 Rx Lisinopril 20 Mg Tablet 20 Mg PO DAILY 02/24/16 Rx Duoneb 0.5-3(2.5) Mg/3 Ml (Albuterol/Ipratropium) 3 Ml Ampul.neb 3 Ml NEB Q4HRS W/A 30 02/24/16 Rx Hydralazine Hcl 10 Mg Tablet 10 Mg PO TID 02/24/16 Rx Albuterol Sulfate Hfa Inhaler (Albuterol Sulfate) 8.5 Gm Hfa.aer.ad 2 Puff IH PRN Q6HRS PRN 02/20/13 Reported Aspirin Ec (Aspirin) 325 Mg Tablet.dr 81 Mg PO DAILY 02/20/13 Reported Warfarin Sodium 5 Mg Tablet 6 Mg PO DAILY 02/19/13 Reported Warfarin Sodium 2.5 Mg Tablet 2.5 Mg PO 3X/WEEK 02/19/13 Reported monday,monday, Gabapentin (Gabapentin) 300 Mg Capsule 300 Mg PO DAILY 02/19/13 Reported Risperidone 1 Mg Tablet 1 Mg PO HS 02/19/13 Reported Novolog (Insulin Aspart) 100 Unit/1 Ml Vial 10 Unit SQ DAILYAC 02/19/13 Reported Potassium 99 Mg Tablet 20 Meq PO DAILY 02/19/13 Reported Comments reviewed cta 06/23 1. There is no CT evidence of pulmonary embolus. 2. Dilated pulmonary trunk suggests pulmonary arterial hypertension. 3. Moderate bilateral pleural effusions. 4. Unchanged right upper lobe bronchopneumonia. Scattered groundglass opacities in the lungs are similar to prior study and are likely infectious/inflammatory. 5. Mild mediastinal adenopathy may be reactive. Impression . 1. [id number] hypoxemic respiratory failure secondary to acute exacerbation of chronic obstructive pulmonary disease, pneumonia, 2. Abnormal CT of the chest 3. Pneumonia 4. Acute systolic congestive heart failure. 5. Acute exacerbation of chronic obstructive pulmonary disease. 6. Leukocytosis. 7. Anemia. 8. History of cerebrovascular accident. 9. Lower extremity edema, no dvt 10. Atrial fibrillation/atrial flutter on Coumadin. 11. Bioprosthetic aortic valve. 12. diarrhea, ? c diff Plan . MEETING IN AM WITH PALLIATIVE CARE PRN BIPAP 02 NC ANTI BX PE R ID STEROID PT BETTER TODAY LESS WHEEZE DIURESE 06/26 PALLIATIVE CARE NOTE I D/W PT 1230 Spoke with patient and Aura. Dr. Gonzales here. states patient can't come home--too difficult for her to handle without him getting stronger first. Would need children's input before making any decisions. Family can not meet until . Plan: Family Meeting to discuss plan of care. MANDEEP ZEPEDA MD June 27, 2018 09:02
[2018-06-27] MEDS: INSULIN LISPRO 300 UNITS/3 ML INSULN.PEN. SQ SCH ×3 (09:15→17:12)
[2018-06-27] MEDS: ASPIRIN ENTERIC COATED 81 MG TABLET.DR. PO SCH (09:16)
[2018-06-27] MEDS: POTASSIUM CHLORIDE 20 MEQ TABLET.ER. PO SCH (09:17)
[2018-06-27] MEDS: FUROSEMIDE 40 MG/4 ML VIAL. IVP SCH (09:17)
[2018-06-27] MEDS: FAMOTIDINE 20 MG/2 ML VIAL IVP SCH (09:18)
[2018-06-27] MEDS: LACTOBACILLUS RHAMNOSUS GG 1 CAPSULE. PO SCH ×2 (09:20→21:00)
[2018-06-27] MEDS: hydrALAZINE 10 MG TABLET PO SCH ×3 (09:20→21:00)
[2018-06-27] MEDS: levETIRAcetam 250 MG TABLET PO SCH ×2 (09:21→21:00)
[2018-06-27] MEDS: METOPROLOL TART IMMED RELEASE 25 MG TABLET. PO SCH ×2 (09:22→21:00)
[2018-06-27] MEDS: GABAPENTIN 300 MG CAPSULE. PO SCH (09:22)
[2018-06-27] MEDS: LISINOPRIL 20 MG TABLET PO SCH (09:23)
[2018-06-27] MEDS: MULTIVITAMIN with MINERAL TABLET. PO SCH (09:24)
[2018-06-27] MEDS: ZONISAMIDE 100 MG CAPSULE. PO SCH (09:51)
[2018-06-27 11:00] VITALS: BP 156/39
--- NOTE | 2018-06-27 12:32 | EEG ---
DATE OF SERVICE: 06/26/2018 EEG REPORT EEG NUMBER: [id number]. OBJECTIVE: This is a 78-year-old male patient with history of seizure. EEG was requested to evaluate seizure activity. METHODS: Twenty electrodes were applied according to the international 10-20 electrode placement system. EKG monitoring, hyperventilation, intermittent photic stimulation, monopolar and bipolar montages are routinely utilized. The record was obtained on a digital system with video monitoring. MEDICATIONS: Keppra. FINDINGS: 1. Background: The patient was recorded in the awake, drowsy and sleep states. The overall background amplitude is 5-15 microvolts. A posterior dominant rhythm of 6-8 Hz is observed. 2. Abnormalities: No specific epileptiform discharge or electrographic seizure is seen. No diffuse slowing. 3. Activation: Hyperventilation was not performed because the patient was unable to perform the technique. Intermittent photic stimulation was performed with photic driving. No specific epileptiform discharge or electrographic seizure induced by intermittent photic stimulation. IMPRESSION: This EEG falls into the abnormal category of the study for the awake, drowsy, and sleep states. The posterior dominant rhythm of 6-8 Hz is slow for age. No focal, lateralizing, specific epileptiform discharge or electrographic seizure is seen. LIA MALIN MD DR: KEENAN/arely JOB#: [id number] / [id number] BENJAMIN
[2018-06-27] MEDS: VANCOMYCIN PER PHARMACY MC PRN (13:01)
--- NOTE | 2018-06-27 13:01 | NUR ---
Pharmacy Warfarin Dosing Note S:Pharmacy consulted to assist with anticoagulation therapy started with target INR: 2 -3 O:VICKI BRAUN is a 78 year old M with Atrial Fibrillation LABS: Last INR: 2.7 Last HGB: 9.6 Last HCT: 29.7 Last PLT: 245 Last dose of Hold given on 06/26/18 at 2121 Previous Regimen: Vitamin K given: N Drug Interaction Changes: Ongoing Drug Interactions: 06/25 INR THRU 06/28 Patient was discharged on 06/22 and readmitted on 06-23. INR on 06/22 was 2.4 and dose ordered was 4mg. Dose was NOT administered here at [facility] for 06/22. A:INR of 2.7 is within desired range. Target range for this patient is: 2 -3 P: Warfarin dose: 2 mg Today at 1600 Bridge Therapy: None Next INR due 06/28/18 Pharmacy anticoagulation service will continue to follow. MATT FAYE RPH, 06/27/18 1305
--- NOTE | 2018-06-27 13:43 | NUR ---
Pt lethargic at lunch,could not awaken for lunch. Continues to be sleeping sound vs 134/37 71 20,94% on 1 liter n/c. FSBS repeated =184 will continue to monitor pt status.
--- NOTE | 2018-06-27 14:41 | PDOC ---
PROGRESS NOTES Assessment Assessment Metabolic encephalopathy. Seizure. Respiratory distress. Leukocytosis. Necrotic right toes, s/p right BKA. AFib. CAD, s/p CABG. CHF. DM. HTN. HLD. 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 Right BKA. RECOMMENDATIONS/PLAN: Treat medical diseases. Placement issues. 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 Consulted Palliative Care team for family's goal of care. Discussed with his on a daily basis at bedside in ICU. HCT on 05/22/18 and 06/24/18: negative for acute findings. EEG on 06/26/18: The posterior dominant rhythm is 6-8 Hz/s that is mildly slow for age. HISTORY OF THE PRESENT ILLNESS: This is a 78-year-old male who was discharged 06/22 after treatment for pneumonia and sepsis. This afternoon he became dyspneic with SpO2 in low 80s, so he was brought back to ER. On arrival to ER his saturations are above 95% on 3 L by nasal canula which is at his baseline O2 requirement. Received breathing treatment in ED with improvement in his respiratory effort. He has been having MS changes, further declined cognitive function, so he was hospitalized and neurology was requested for consultation. Past Medical History A-Fib, Anemia, Arthritis, CAD, CHF, COPD, Depression, Diabetes-Type II, High Cholesterol, Hypertension, MRSA, Seizure, Stroke, bronchiolitis obliterans, TREMORS,NECROTIC RT TOES, RT HEEL, LT OUTER ANKLE Cardiovascular: AFIB, HTN, [place] Pulmonary: Asthma, Bronchitis, COPD, Pneumonia, Other CENTRAL NERVOUS SYSTEM: CVA, Periperal neuropathy GI: Other Heme/Onc: No pertinent hx Hepatobiliary: No pertinent hx Psych: Depression Musculoskeletal: Osteoarthritis Rheumatologic: No pertinent hx Infectious disease: No pertinent hx Renal/: Other Endocrine: Diabetes Past Surgical History Appendectomy, Coronary Bypass Surgery, MULTIPLE TOE AMP, ROTATOR CUFF, BOVINE VALVE, LT HIP Family History Coronary Artery Disease, HLD, Hypertension Social History Smoke: No ALCOHOL: none Drugs: None Allergies Coded Allergies: Fentanyl (Verified Allergy, Intermediate, 06/17/18) Per pt : agitation and difficulty awakening pt after I S O L A T I O N *CONTACT* (Verified Allergy, Unknown, 05/23/18), mrsa MEDICATIONS: Refer to [facility] REVIEW OF SYSTEMS: Constitutional: No malnutrition, weight loss, cachexia. Head: No traumatic brain or head injury. Skin: No edema, or rash. Ear: No infection. Eyes: No vision loss or color blindness. Nose: No bleeding or purulent discharges. Hearing: Hearing decrease. Neck: No injury. Cardiac: CAD, s/p CABG, AFib, HTN, HLD. Pulmonary: No COPD. GI: No GI ulcer, GI bleeding. Urinary/genital: UTI. Endocrinologic: Diabetes Mellitus, obesity. Skeletomuscular: Generalized weakness. Neurological: see HP. Psychiatric: Denies drug use/abuse. Otherwise, not [id number] review of systems. PHYSICAL EXAMINATION: General appearance is in subacute distress. HEENT: Normocephalic and nontraumatic. Eyes, nose, ears, and throat are unremarkable. Neck is supple. No lymphadenopathy. No crepitus. Cardiovascular: S1, S2, regular rate and rhythm. Pulmonary: Decreased to auscultation bilaterally. Abdomen: Bowel sounds are positive. Extremities: No rash or edema. No restriction of range of motion NEUROLOGICAL EXAMINATION: Awake. Not fully oriented to time, but knew place and person. PERRL. EOMI. CN: no focal findings. Muscle tone: Increased in left side. Within normal at right side. Muscle strength: 2 left side, 4 right UE. Right LE BKA. DTR: 2 Plantar reflex: Neutral response left side, BKA right side. Gait: not able to walk. Sensory exam: no acute abnormal findings. Not able to access cerebellar signs due to not follow commands. F-T-N test not performed. Objective Objective Vital Signs Date Time Temp Pulse Resp B/P (MAP) Pulse Ox O2 Delivery O2 Flow Rate FiO2 06/27/18 14:12 71 134/37 06/27/18 11:26 97 Room Air 06/27/18 11:00 97.5 18 97.5 06/27/18 08:00 2.0 Intake and Output 06/27/18 07:00 Intake Total 3027 ml Output Total 5000 ml Balance -1973 ml Intake Oral 1720 ml Blood Product IV Normal Saline Flush 1307 ml Output Urine Total 5000 ml Vitals Signs Vitals VS - Last 72 Hours, by Label Date Time Temp Pulse Resp B/P (MAP) Pulse Ox O2 Delivery O2 Flow Rate FiO2 06/27/18 14:12 71 134/37 06/27/18 11:26 97 Room Air 06/27/18 11:00 97.5 70 18 156/39 (78) 100 Room Air 97.5 06/27/18 09:23 74 162/59 06/27/18 09:22 74 162/59 06/27/18 09:20 74 162/59 06/27/18 08:00 Nasal Cannula 2.0 06/27/18 07:23 96 Room Air 06/27/18 07:00 97.9 74 20 162/59 (93) 97 Room Air 97.9 06/27/18 03:00 97.6 70 140/60 (86) 93 Room Air 97.6 06/26/18 23:00 97.9 68 18 143/63 (89) 95 Room Air 97.9 06/26/18 21:15 72 158/66 06/26/18 21:15 72 158/66 06/26/18 21:00 Room Air 06/26/18 20:00 Nasal Cannula 2.0 06/26/18 19:00 97.7 72 158/66 (96) 96 Nasal Cannula 2.0 97.7 06/26/18 17:44 98 Nasal Cannula 2.0 06/26/18 16:47 Nasal Cannula 0.5 06/26/18 16:08 98 Nasal Cannula 0.5 06/26/18 16:00 97.7 69 18 152/62 (92) 96 Nasal Cannula 2.0 97.7 06/26/18 16:00 Nasal Cannula 2.0 06/26/18 14:18 97.6 67 7 140/68 97.6 06/26/18 13:56 66 138/62 06/26/18 13:00 97.7 66 17 138/62 97.7 06/26/18 12:20 Nasal Cannula 2.0 06/26/18 12:00 97.6 69 16 125/57 97.6 06/26/18 11:00 97.5 76 9 149/66 (93) 93 Nasal Cannula 2.0 97.5 06/26/18 11:00 97.5 76 9 149/66 97.5 06/26/18 10:45 97.6 68 9 147/58 97.6 06/26/18 10:35 97.6 68 9 147/58 97.6 06/26/18 09:55 68 120/67 06/26/18 09:54 68 120/67 06/26/18 09:53 68 120/67 06/26/18 09:51 68 120/67 06/26/18 09:35 97.8 99 18 120/67 97.8 06/26/18 08:35 97.9 99 11 151/61 97.9 06/26/18 08:20 97.7 68 7 136/58 97.7 06/26/18 08:00 Nasal Cannula 2.0 06/26/18 07:57 98 Nasal Cannula 2.0 06/26/18 07:00 97.7 68 7 136/58 (84) 97 Nasal Cannula 2.0 97.7 Laboratory Laboratory Laboratory Tests Test 06/26/18 14:45 06/26/18 16:46 06/27/18 06:15 06/27/18 08:03 Hemoglobin 9.6 g/dL (13.0-17.5) Hematocrit 29.7 % (39.0-53.0) Mean Corpuscular Hemoglobin Concent 32 g/dL (31-37) Glucose (Fingerstick) 214 mg/dL (70-99) 147 mg/dL (70-99) Prothrombin Time 28.2 SEC (11.7-14.0) Prothromb Time International Ratio 2.7 (0.8-1.1) Test 06/27/18 11:45 06/27/18 13:39 Glucose (Fingerstick) 210 mg/dL (70-99) 184 mg/dL (70-99) Microbiology 06/23/18 Blood Culture - Preliminary, Resulted NO GROWTH AFTER 4 DAYS Medication Medications Current Medications Famotidine (Pepcid) 20 mg BID PO ; Start 06/27/18 at 21:00 Vancomycin HCl (Vancomycin Trough Level) 1 each 1X ONCE MC ; Start 06/27/18 at 23:30; Stop 06/27/18 at 23:31 Warfarin Sodium (Coumadin - No Dose Today) 1 each 1X WARF ONCE MC Last administered on 06/26/18at 11:54; Start 06/26/18 at 16:00; Stop 06/26/18 at 16:01; Status DC Warfarin Sodium (Coumadin) 2 mg 1X WARF ONCE PO ; Start 06/27/18 at 16:00; Stop 06/27/18 at 16:01 Comment Review of Relevant I have reviewed the following items navi (where applicable) has been applied. LIA MALIN MD June 27, 2018 14:41
[2018-06-27 15:00] VITALS: BP 112/70
--- NOTE | 2018-06-27 15:25 | NUR ---
SW following Pt. Palliative care following pt and has a family meeting for tomorrow. AMAURI will await for family's decision to assist with dc planning.
[2018-06-27] MEDS ORDERED: WARFARIN 2 MG TABLET. PO ONE (16:00)
--- NOTE | 2018-06-27 18:00 | NUR ---
Pt became more alert at 1700,reported when he sleeps he sleeps very sound.
[2018-06-27 19:00] VITALS: BP 123/67
[2018-06-27] MEDS: ATORVASTATIN CALCIUM 40 MG TABLET. PO SCH (21:00)
[2018-06-27] MEDS: FAMOTIDINE 20 MG TABLET. PO SCH (21:00)
[2018-06-27] MEDS: risperiDONE 1 MG TABLET. PO SCH (21:00)
[2018-06-27 22:36] VITALS: BP_SYST 133; BP_SYST 188; BP_DIAS 34; BP_DIAS 71
--- NOTE | 2018-06-27 23:27 | NUR ---
patient was lethargic and it was hard to awaken him for his 2100 medications. His vital signs were BP 133/34, HR 68, TEMP,98.4, RR16, SAO2 97and blood sugar was 173. Patient on 2 liters Nasal cannula. The nurse called the Doctor, and was advised to hold all 2100 medication. patient still sound asleep, the nurse will continue to monitor him.
[2018-06-28 02:06] LABS: CREATININE 0.9 mg/dL (0.7-1.3); VANC TR 19.3 mcg/mL (10.0-20.0)
[2018-06-28] MEDS: VANCOMYCIN 1 GM in IV NORMAL SALINE 250ML 250 ML IV SCH (02:47)
[2018-06-28 03:00] VITALS: BP 122/30
[2018-06-28] MEDS: VANCOMYCIN PER PHARMACY MC PRN ×2 (03:33→12:44)
--- NOTE | 2018-06-28 03:33 | NUR ---
Pharmacy Vancomycin Dosing Note S:Consulted to monitor and dose vancomycin started 06/23/18. O:VICKI BRAUN is a 78 year old M with Sepsis UTI . Height: 5 feet, 8 inches Weight: 89.586310 kg [place] Body Weight: 70.70 Adjusted Body Weight: 87.62 Dosing Weight: Actual Other Antibiotics: ZOSYN D/C'D 06/27 LABS: Last BUN: 19 Last Creatinine: 1.1 Creatinine Clearance: 62 mL/min Last WBC: 8.9 Last Procalcitonin: 0.4 Tmax (past 24 hours): AFEBRILE Microbiology: BLD CX=NGTD I/O: 1610/5010 Drug Levels: Last Trough level: 19.3 on 06/27/18 at 2230 Last dose given 06/27/18 at 0040 Vancomycin Dosing: Loading Dose: 2000 mg x1 Dosing Weight: Actual Target Trough: 15-20 A: Based on: TROUGH P: 1. Continue Vancomycin 1000 mg IV q24h 2. Follow up Trough level IF NEEDED 3. Pharmacy will continue to monitor, follow and adjust therapy as needed. JOSE JUAN ZACARIAS RPH, 06/28/18 0333 Signed: 06/28/18 at 0334 by JOSE JUAN ZACARIAS RPH PHA
[2018-06-28 05:33] LABS: PROTHROMBIN TIME PATIENT 24.7 SEC (11.7-14.0)
[2018-06-28 07:00] VITALS: BP 144/36
[2018-06-28] MEDS: INSULIN LISPRO 300 UNITS/3 ML INSULN.PEN. SQ SCH ×3 (08:00→17:10)
[2018-06-28] MEDS: BUDESONIDE 0.5 MG/2 ML NEBU. NEB SCH ×2 (08:33→20:11)
[2018-06-28] MEDS: IPRATROPIUM BROMIDE 0.5 MG/2.5 ML NEBU. NEB SCH ×4 (08:33→20:11)
[2018-06-28] MEDS: MULTIVITAMIN with MINERAL TABLET. PO SCH (09:25)
[2018-06-28] MEDS: GABAPENTIN 300 MG CAPSULE. PO SCH (09:25)
[2018-06-28] MEDS: levETIRAcetam 250 MG TABLET PO SCH ×2 (09:25→22:11)
[2018-06-28] MEDS: LACTOBACILLUS RHAMNOSUS GG 1 CAPSULE. PO SCH ×2 (09:25→22:11)
[2018-06-28] MEDS: hydrALAZINE 10 MG TABLET PO SCH ×3 (09:25→22:14)
[2018-06-28] MEDS: ASPIRIN ENTERIC COATED 81 MG TABLET.DR. PO SCH (09:26)
[2018-06-28] MEDS: ZONISAMIDE 100 MG CAPSULE. PO SCH (09:26)
[2018-06-28] MEDS: FAMOTIDINE 20 MG TABLET. PO SCH ×2 (09:26→22:12)
[2018-06-28] MEDS: POTASSIUM CHLORIDE 20 MEQ TABLET.ER. PO SCH (09:26)
[2018-06-28] MEDS: METOPROLOL TART IMMED RELEASE 25 MG TABLET. PO SCH ×2 (09:26→22:13)
[2018-06-28] MEDS: FUROSEMIDE 40 MG/4 ML VIAL. IVP SCH (09:27)
[2018-06-28] MEDS: LISINOPRIL 20 MG TABLET PO SCH (09:27)
--- NOTE | 2018-06-28 09:29 | PDOC ---
PROGRESS NOTES Chief Complaint Chief Complaint 1. Acute on chronic hypoxic respiratory failure secondary to acute COPD exacerbation, pneumonia and mild acute on chronic systolic heart failure. 2. Acute on chronic systolic heart failure; better compensated following IV diuresis 3. Coronary artery disease s/p coronary artery bypass surgery (AGUILAR to LAD, SVG to D2, SVG to OM and SVG to PDA) in 2012. Stable. CP free. 4. Mild troponin elevation; peak 0.06. Most probably demand ischemia. Echo 05/2018 showed LVEF 35-40%. 5. Bioprosthetic AVR, stable. Recent echo with normal function. 6. Permanent AFIB/flutter; notable for 4 sec pause yesterday and intermittent 2-3 sec. 7. 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 Hypertension: controlled 9. PAD s/p RBKA and left toe amputations, appears stable clinically 8. DM2: per IM 9. Hyperlipidemia; statin therapy 10. Chronic coumadin therapy: INR 4.2 hold dose today 11. Anemia: Hgb 7, no obvious bleed, S/P transfusion 12. 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 EF 35-40 13, DNR History of Present Illness History of Present Illness MULTIPLE past medical history/comorbidities Right amputee, one month ago, has an electric wheelchair at home but unable to transfer to the wheelchair even Patient wants hospice, unable to take patient home Family meet plan for today Patient eats less than 50% of regular tray Sleeps okay Rounded with ID today - PT WAS CLEAR hE WANTS HOME HOSPICE with the impression that hospice comes out everyday - which is not the case as verified with PLAN: [facility] meet HE does qualify for SNU but will not go - has been to [facility] within the last 3 mos Family wants SNU for him Vitals Vitals Vital Signs Date Time Temp Pulse Resp B/P (MAP) Pulse Ox O2 Delivery O2 Flow Rate FiO2 06/28/18 08:35 98 Nasal Cannula 2.0 06/28/18 07:00 97.5 69 14 144/36 (72) 97.5 Physical Exam Physical Exam GENERAL: in bed,, alert, HENT: ISMAEL, Oral cavity/pharynx pink, dry. No thrush LUNGS: Clear anteriorly, nonlabored CV: S1 S2, regular ABD: Obese, soft, NT : [place] EXT: 2+ edema left leg. Right BKA stump incision healing well, steri strips in place. 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 RUE-PICC (POA) clean General: Alert, Oriented X3, Cooperative, No acute distress, mild distress Heart: Other (HR irregular) Lungs: Wheezing, Crackles, Other Abdomen: Normal bowel sounds, Soft, No tenderness Extremities: No cyanosis, Other (RBKA, left toes amputation, 1-2+ edema ) Labs LABS Laboratory Tests Test 06/27/18 11:45 06/27/18 13:39 06/27/18 16:15 06/27/18 21:22 Glucose (Fingerstick) 210 mg/dL (70-99) 184 mg/dL (70-99) 163 mg/dL (70-99) 212 mg/dL (70-99) Test 06/27/18 23:25 06/28/18 01:30 06/28/18 05:00 06/28/18 07:27 Glucose (Fingerstick) 173 mg/dL (70-99) 147 mg/dL (70-99) Creatinine 0.9 mg/dL (0.7-1.3) Estimated GFR (Cockcroft-Gault) 82.0 Vancomycin Level Trough 19.3 mcg/mL (10.0-20.0) Vancomycin Last Dose Date Vancomycin Last Dose Time 004 Prothrombin Time 24.7 SEC (11.7-14.0) Prothromb Time International Ratio 2.3 (0.8-1.1) Review of Systems Review of Systems weak, Easily fatigued with exertion, no chest pain, the rest of 14 point negative, Comment Review of Relevant I have reviewed the following items navi (where applicable) has been applied. Labs Laboratory Tests Test 06/26/18 13:14 06/26/18 14:10 06/26/18 14:45 06/26/18 16:46 Glucose (Fingerstick) 174 mg/dL (70-99) 214 mg/dL (70-99) Digoxin Level 1.5 ng/mL (0.9-2.0) Digoxin Last Dose Date 06/26/18 Digoxin Last Dose Time 0900 Hemoglobin 9.6 g/dL (13.0-17.5) Hematocrit 29.7 % (39.0-53.0) Mean Corpuscular Hemoglobin Concent 32 g/dL (31-37) Test 06/27/18 06:15 06/27/18 08:03 06/27/18 11:45 06/27/18 13:39 Prothrombin Time 28.2 SEC (11.7-14.0) Prothromb Time International Ratio 2.7 (0.8-1.1) Glucose (Fingerstick) 147 mg/dL (70-99) 210 mg/dL (70-99) 184 mg/dL (70-99) Test 06/27/18 16:15 06/27/18 21:22 06/27/18 23:25 06/28/18 01:30 Glucose (Fingerstick) 163 mg/dL (70-99) 212 mg/dL (70-99) 173 mg/dL (70-99) Creatinine 0.9 mg/dL (0.7-1.3) Estimated GFR (Cockcroft-Gault) 82.0 Vancomycin Level Trough 19.3 mcg/mL (10.0-20.0) Vancomycin Last Dose Date Vancomycin Last Dose Time 0041 Test 06/28/18 05:00 06/28/18 07:27 Prothrombin Time 24.7 SEC (11.7-14.0) Prothromb Time International Ratio 2.3 (0.8-1.1) Glucose (Fingerstick) 147 mg/dL (70-99) Laboratory Tests Test 06/27/18 11:45 06/27/18 13:39 06/27/18 16:15 06/27/18 21:22 Glucose (Fingerstick) 210 mg/dL (70-99) 184 mg/dL (70-99) 163 mg/dL (70-99) 212 mg/dL (70-99) Test 06/27/18 23:25 06/28/18 01:30 06/28/18 05:00 06/28/18 07:27 Glucose (Fingerstick) 173 mg/dL (70-99) 147 mg/dL (70-99) Creatinine 0.9 mg/dL (0.7-1.3) Estimated GFR (Cockcroft-Gault) 82.0 Vancomycin Level Trough 19.3 mcg/mL (10.0-20.0) Vancomycin Last Dose Date Vancomycin Last Dose Time 40 Prothrombin Time 24.7 SEC (11.7-14.0) Prothromb Time International Ratio 2.3 (0.8-1.1) Microbiology 06/23/18 Blood Culture - Final, Complete NO GROWTH AFTER 5 DAYS Medications Current Medications Albuterol/ Ipratropium (Duoneb) 3 ml 1X ONCE NEB Last administered on 06/23/18at 04:06; Start 06/23/18 at 03:30; Stop 06/23/18 at 03:33; Status DC Dexamethasone Sodium Phosphate (Decadron) 10 mg 1X ONCE IV Last administered on 06/23/18at 04:33; Start 06/23/18 at 03:30; Stop 06/23/18 at 03:33; Status DC Aspirin (Alexander Aspirin) 325 mg 1X ONCE PO Last administered on 06/23/18at 04:33; Start 06/23/18 at 04:15; Stop 06/23/18 at 04:16; Status DC Sodium Chloride 1,000 ml @ 1,000 mls/hr 1X ONCE IV ; Start 06/23/18 at 04:15; Stop 06/23/18 at 04:33; Status DC Ondansetron HCl (Zofran) 4 mg PRN Q8HRS PRN IV NAUSEA/VOMITING; Start 06/23/18 at 04:15; Stop 06/24/18 at 04:14; Status DC Acetaminophen (Tylenol) 650 mg PRN Q4HRS PRN PO FEVER; Start 06/23/18 at 04:15; Stop 06/24/18 at 04:14; Status DC Albuterol/ Ipratropium (Duoneb) 3 ml RTQID NEB Last administered on 06/23/18at 08:01; Start 06/23/18 at 08:00; Stop 06/23/18 at 10:57; Status DC Insulin Human Lispro (HumaLOG) 0-5 UNITS TIDWMEALS SQ Last administered on 06/26/18at 17:44; Start 06/23/18 at 08:00 Dextrose (Dextrose 50%-Water Syringe) 12.5 gm PRN Q15MIN PRN IV SEE COMMENTS; Start 06/23/18 at 04:15 Morphine Sulfate (Morphine Sulfate) 4 mg PRN Q4HRS PRN IV MODERATE PAIN 4-6 Last administered on 06/26/18at 16:47; Start 06/23/18 at 04:15 Iohexol (Omnipaque 350 Mg/ml) 100 ml 1X ONCE IV Last administered on 06/23/18at 04:58; Start 06/23/18 at 05:00; Stop 06/23/18 at 05:01; Status DC Info (CONTRAST GIVEN -- Rx MONITORING) 1 each PRN DAILY PRN MC SEE COMMENTS; Start 06/23/18 at 05:00; Stop 06/25/18 at 04:59; Status DC Piperacillin Sod/ Tazobactam Sod 4.5 gm/Sodium Chloride 100 ml @ 200 mls/hr 1X ONCE IV Last administered on 06/23/18at 06:12; Start 06/23/18 at 06:00; Stop 06/23/18 at 06:29; Status DC Vancomycin HCl 2 gm/Sodium Chloride 500 ml @ 250 mls/hr 1X ONCE IV Last administered on 06/23/18at 08:02; Start 06/23/18 at 06:00; Stop 06/23/18 at 07:59; Status DC Ipratropium [place] (Atrovent) 0.5 mg RTQID NEB Last administered on 06/28/18at 08:33; Start 06/23/18 at 12:00 Famotidine (Pepcid Vial) 20 mg BID IVP Last administered on 06/27/18at 09:18; Start 06/23/18 at 21:00; Stop 06/27/18 at 12:55; Status DC Vancomycin HCl (Vanco Per Pharmacy) 1 each PRN DAILY PRN MC SEE COMMENTS Last administered on 06/28/18at 03:33; Start 06/23/18 at 11:45 Piperacillin Sod/ Tazobactam Sod 3.375 gm/Sodium Chloride 50 ml @ 100 mls/hr Q6HRS IV Last administered on 06/26/18at 05:35; Start 06/23/18 at 12:00; Stop 06/26/18 at 07:56; Status DC Vancomycin HCl 1.5 gm/Sodium Chloride 500 ml @ 250 mls/hr Q24H IV Last administered on 06/24/18at 08:53; Start 06/24/18 at 08:00; Stop 06/25/18 at 10:17; Status DC Vancomycin HCl (Vancomycin Trough Level) 1 each 1X ONCE MC Last administered on 06/25/18 10:09; Start 06/25/18 at 07:30; Stop 06/25/18 at 07:31; Status DC Aspirin (Ecotrin) 81 mg DAILYWBKFT PO Last administered on 06/27/18 09:16; Start 06/23/18 at 18:15 Digoxin (Lanoxin) 125 mcg DAILY PO Last administered on 06/26/18 09:51; Start 06/24/18 at 09:00; Stop 06/26/18 at 13:45; Status DC Furosemide (Lasix) 40 mg DAILY PO Last administered on 06/24/18 08:56; Start 06/24/18 at 09:00; Stop 06/24/18 at 12:27; Status DC Gabapentin (Neurontin) 300 mg DAILY PO Last administered on 06/27/18 09:22; Start 06/24/18 at 09:00 Lisinopril (Prinivil) 20 mg DAILY PO Last administered on 06/24/18 08:54; Start 06/24/18 at 09:00; Stop 06/24/18 at 12:27; Status DC Metoprolol Tartrate (Lopressor) 50 mg BID PO Last administered on 06/25/18 09:26; Start 06/23/18 at 21:00; Stop 06/25/18 at 18:09; Status DC Atorvastatin Calcium (Lipitor) 80 mg QHS PO Last administered on 06/26/18 21:15; Start 06/23/18 at 21:00 Hydralazine HCl (Apresoline) 10 mg TID PO Last administered on 06/27/18 09:20; Start 06/23/18 at 21:00 Levetiracetam (Keppra) 1,250 mg BID PO Last administered on 06/27/18 09:21; Start 06/23/18 at 21:00 Multivitamins (Thera M Plus) 1 tab DAILY PO Last administered on 06/27/18 09:24; Start 06/24/18 at 09:00 Potassium Chloride (Klor-Con) 20 meq DAILYWBKFT PO Last administered on 06/27/18 09:17; Start 06/23/18 at 18:30 Risperidone (RisperDAL) 1 mg QHS PO Last administered on 06/26/18 21:14; Start 06/23/18 at 21:00 Zonisamide (Zonegran) 400 mg DAILY PO Last administered on 06/27/18 09:51; Start 06/23/18 at 18:00 Warfarin Sodium (Coumadin Per Pharmacy) 1 each PRN DAILY PRN MC SEE COMMENTS Last administered on 06/27/18 12:59; Start 06/23/18 at 18:30 Warfarin Sodium (Coumadin) 4 mg DAILY16 PO Last administered on 06/23/18 21:19; Start 06/23/18 at 19:30; Stop 06/24/18 at 15:48; Status DC Budesonide (Pulmicort) 0.5 mg RTBID NEB Last administered on 06/28/18 08:33; Start 06/24/18 at 08:00 Lisinopril (Prinivil) 40 mg DAILY PO Last administered on 06/27/18 09:23; Start 06/25/18 at 09:00 Furosemide (Lasix) 40 mg DAILY IVP Last administered on 06/27/18 09:17; Start 06/24/18 at 12:30 Lactobacillus Rhamnosus (Culturelle) 1 cap BID PO Last administered on 06/27/18 09:20; Start 06/24/18 at 21:00 Warfarin Sodium (Coumadin - No Dose Today) 1 each 1X WARF ONCE MC Last administered on 06/24/18 15:59; Start 06/24/18 at 16:00; Stop 06/24/18 at 16:01; Status DC Warfarin Sodium (Coumadin - No Dose Today) 1 each 1X WARF ONCE MC Last administered on 06/25/18 16:00; Start 06/25/18 at 16:00; Stop 06/25/18 at 16:01; Status DC Vancomycin HCl (Vancomycin Random Level) 1 each 1X ONCE MC Last administered on 06/25/18 19:00; Start 06/25/18 at 19:00; Stop 06/25/18 at 19:01; Status DC Oxycodone/ Acetaminophen (Percocet 5/325) 1 tab PRN Q4HRS PRN PO PAIN Last administered on 06/26/18 00:00; Start 06/25/18 at 15:00 Potassium Chloride (Klor-Con) 20 meq 1X ONCE PO Last administered on 06/25/18at 17:39; Start 06/25/18 at 15:45; Stop 06/25/18 at 15:46; Status DC Potassium Chloride (Klor-Con) 20 meq DAILYWBKFT PO ; Start 06/26/18 at 08:00; Status Cancel Metoprolol Tartrate (Lopressor) 25 mg BID PO Last administered on 06/27/18at 09:22; Start 06/25/18 at 21:00 Vancomycin HCl 1 gm/Sodium Chloride 250 ml @ 250 mls/hr Q24H IV Last administe red on 06/28/18at 02:47; Start 06/26/18 at 00:00 Alteplase, Recombinant (Cathflo For Central Catheter Clearance) 1 mg 1X ONCE IN T CAT Last administered on 06/26/18at 13:47; Start 06/26/18 at 10:30; Stop 06/26/18 at 10:31; Status DC Warfarin Sodium (Coumadin - No Dose Today) 1 each 1X WARF ONCE MC Last administered on 06/26/18at 11:54; Start 06/26/18 at 16:00; Stop 06/26/18 at 16: 01; Status DC Warfarin Sodium (Coumadin) 2 mg 1X WARF ONCE PO Last administered on 06/27/18at 17:13; Start 06/27/18 at 16:00; Stop 06/27/18 at 16:01; Status DC Famotidine (Pepcid) 20 mg BID PO ; Start 06/27/18 at 21:00 Vancomycin HCl (Vancomycin Trough Level) 1 each 1X ONCE MC Last administered on 06/27/18at 02:20; Start 06/27/18 at 23:30; Stop 06/27/18 at 23:31; Status DC Active Scripts Active Daptomycin 350 Mg Vial 350 Mg IV DAILY 10 Days Cephalexin 250 Mg Capsule 500 Mg PO QID 3 Days Percocet 5-325 Mg Tablet (Oxycodone/Acetaminophen) 1 Each Tablet 1 Tab PO PRN Q4HRS PRN 6 Days Digoxin 125 Mcg Tablet 125 Mcg PO DAILY Furosemide 40 Mg Tablet 40 Mg PO DAILY Metoprolol Tartrate 50 Mg Tablet 50 Mg PO BID [Warfarin Sodium] 1 EACH Each 1 Each MC PRN DAILY PRN Lisinopril 20 Mg Tablet 20 Mg PO DAILY Duoneb 0.5-3(2.5) Mg/3 Ml (Albuterol/Ipratropium) 3 Ml Ampul.neb 3 Ml NEB Q4HRS W/A 30 Days Hydralazine Hcl 10 Mg Tablet 10 Mg PO TID Reported Zonisamide 100 Mg Capsule 400 Mg PO DAILY Multivitamins (Multivitamin) 1 Each Tablet 1 Tab PO DAILY Levetiracetam 250 Mg Tablet 1,250 Mg PO BID Atorvastatin Calcium 80 Mg Tablet 1 Tab PO DAILY Acetaminophen 500 Mg Tablet 1 Tab PO PRN Q6HRS PRN Albuterol Sulfate Hfa Inhaler (Albuterol Sulfate) 8.5 Gm Hfa.aer.ad 2 Puff IH PRN Q6HRS PRN Aspirin Ec (Aspirin) 325 Mg Tablet.dr 81 Mg PO DAILY Warfarin Sodium 5 Mg Tablet 6 Mg PO DAILY Warfarin Sodium 2.5 Mg Tablet 2.5 Mg PO 3X/WEEK monday,monday, Gabapentin (Gabapentin) 300 Mg Capsule 300 Mg PO DAILY Risperidone 1 Mg Tablet 1 Mg PO HS Novolog (Insulin Aspart) 100 Unit/1 Ml Vial 10 Unit SQ DAILYAC Potassium 99 Mg Tablet 20 Meq PO DAILY Vitals/I & O Vital Sign - Last 24 Hours 06/27/18 06/27/18 06/27/18 06/27/18 11:00 11:26 14:12 15:00 Temp 97.5 99.0 97.5 99.0 Pulse 70 71 69 Resp 18 12 B/P (MAP) 156/39 (78) 134/37 112/70 (84) Pulse Ox 100 97 99 O2 Delivery Room Air Room Air Room Air 06/27/18 06/27/18 06/27/18 06/27/18 15:50 19:00 20:00 20:01 Temp 97.5 97.5 Pulse 65 Resp 18 B/P (MAP) 123/67 (85) Pulse Ox 98 96 O2 Delivery Nasal Cannula Room Air Nasal Cannula Nasal Cannula O2 Flow Rate 2.0 2.0 2.0 06/27/18 06/27/18 06/28/18 06/28/18 20:02 22:36 03:00 07:00 Temp 98.4 97.7 97.5 98.4 97.7 97.5 Pulse 68 68 69 Resp 16 16 14 B/P (MAP) 133/34 (67) 122/30 (60) 144/36 (72) Pulse Ox 96 97 98 100 O2 Delivery Nasal Cannula Nasal Cannula Nasal Cannula Nasal Cannula O2 Flow Rate 2.0 2.0 2.0 2.0 06/28/18 06/28/18 08:35 08:35 Pulse Ox 98 98 O2 Delivery Nasal Cannula Nasal Cannula O2 Flow Rate 2.0 2.0 Intake and Output 06/27/18 06/27/18 06/28/18 15:00 23:00 07:00 Intake Total 120 ml 0 ml 0 ml Output Total 2750 ml 650 ml 475 ml Balance -2630 ml -650 ml -475 ml Nutrition Consultation Dietary Evaluation: Recommendations by RD: Protein supplementation Comments: REC continue w/ADA/cardiac diet as ordered Continue w/MVI REC Glucerna TID (chocolate) REC Vit C 500 mg BID Expected Outcomes/Goals: PO intake to meet >75% est needs Interpretation of weight loss: >1-2% in 1 week Malnutrition Findings: Weight Status: Overweight ARABELLA MARTINEZ MD June 28, 2018 09:29
[2018-06-28] MEDS ORDERED: FAMO20TA5 PO (09:33)
[2018-06-28] MEDS ORDERED: BUDE0.5A NEB (09:33)
--- NOTE | 2018-06-28 10:12 | PDOC ---
PULMONARY PROGRESS NOTES Subjective COMFORTABLE NOT SOA Vitals Vital Signs Date Time Temp Pulse Resp B/P (MAP) Pulse Ox O2 Delivery O2 Flow Rate FiO2 06/28/18 09:27 69 144/36 06/28/18 08:35 98 Nasal Cannula 2.0 06/28/18 07:00 97.5 14 97.5 ROS: No Nausea, No Chest Pain, No Increase Cough HEENT: Other Lungs: Wheezing, Crackles, Other Cardiovascular: Other (irreg irreg) Abdomen: Soft, Non-tender, Other Neuro Exam: Alert Extremities: Other (edema) Skin: Warm Labs Laboratory Tests Test 06/26/18 13:14 06/26/18 14:10 06/26/18 14:45 06/26/18 16:46 Glucose (Fingerstick) 174 mg/dL (70-99) 214 mg/dL (70-99) Digoxin Level 1.5 ng/mL (0.9-2.0) Digoxin Last Dose Date 06/26/18 Digoxin Last Dose Time 0900 Hemoglobin 9.6 g/dL (13.0-17.5) Hematocrit 29.7 % (39.0-53.0) Mean Corpuscular Hemoglobin Concent 32 g/dL (31-37) Test 06/27/18 06:15 06/27/18 08:03 06/27/18 11:45 06/27/18 13:39 Prothrombin Time 28.2 SEC (11.7-14.0) Prothromb Time International Ratio 2.7 (0.8-1.1) Glucose (Fingerstick) 147 mg/dL (70-99) 210 mg/dL (70-99) 184 mg/dL (70-99) Test 06/27/18 16:15 06/27/18 21:22 06/27/18 23:25 06/28/18 01:30 Glucose (Fingerstick) 163 mg/dL (70-99) 212 mg/dL (70-99) 173 mg/dL (70-99) Creatinine 0.9 mg/dL (0.7-1.3) Estimated GFR (Cockcroft-Gault) 82.0 Vancomycin Level Trough 19.3 mcg/mL (10.0-20.0) Vancomycin Last Dose Date Vancomycin Last Dose Time 004 Test 06/28/18 05:00 06/28/18 07:27 Prothrombin Time 24.7 SEC (11.7-14.0) Prothromb Time International Ratio 2.3 (0.8-1.1) Glucose (Fingerstick) 147 mg/dL (70-99) Laboratory Tests Test 06/27/18 11:45 06/27/18 13:39 06/27/18 16:15 06/27/18 21:22 Glucose (Fingerstick) 210 mg/dL (70-99) 184 mg/dL (70-99) 163 mg/dL (70-99) 212 mg/dL (70-99) Test 06/27/18 23:25 06/28/18 01:30 06/28/18 05:00 06/28/18 07:27 Glucose (Fingerstick) 173 mg/dL (70-99) 147 mg/dL (70-99) Creatinine 0.9 mg/dL (0.7-1.3) Estimated GFR (Cockcroft-Gault) 82.0 Vancomycin Level Trough 19.3 mcg/mL (10.0-20.0) Vancomycin Last Dose Date Vancomycin Last Dose Time 004 Prothrombin Time 24.7 SEC (11.7-14.0) Prothromb Time International Ratio 2.3 (0.8-1.1) Medications Active Scripts Medications Dose Route/Sig Max Daily Dose Days Date Category Dose Instructions Daptomycin 350 Mg Vial 350 Mg IV DAILY 10 06/22/18 Rx Cephalexin 250 Mg Capsule 500 Mg PO QID 3 06/22/18 Rx Percocet 5-325 Mg Tablet (Oxycodone/Acetaminophen) 1 Each Tablet 1 Tab PO PRN Q4HRS PRN 6 06/22/18 Rx Digoxin 125 Mcg Tablet 125 Mcg PO DAILY 05/15/16 Rx Furosemide 40 Mg Tablet 40 Mg PO DAILY 05/15/16 Rx Zonisamide 100 Mg Capsule 400 Mg PO DAILY 05/11/16 Reported Multivitamins (Multivitamin) 1 Each Tablet 1 Tab PO DAILY 05/11/16 Reported Levetiracetam 250 Mg Tablet 1,250 Mg PO BID 05/11/16 Reported Atorvastatin Calcium 80 Mg Tablet 1 Tab PO DAILY 05/11/16 Reported Acetaminophen 500 Mg Tablet 1 Tab PO PRN Q6HRS PRN 05/11/16 Reported Metoprolol Tartrate 50 Mg Tablet 50 Mg PO BID 02/24/16 Rx [Warfarin Sodium] 1 EACH Each 1 Each MC PRN DAILY PRN 02/24/16 Rx Lisinopril 20 Mg Tablet 20 Mg PO DAILY 02/24/16 Rx Duoneb 0.5-3(2.5) Mg/3 Ml (Albuterol/Ipratropium) 3 Ml Ampul.neb 3 Ml NEB Q4HRS W/A 30 02/24/16 Rx Hydralazine Hcl 10 Mg Tablet 10 Mg PO TID 02/24/16 Rx Albuterol Sulfate Hfa Inhaler (Albuterol Sulfate) 8.5 Gm Hfa.aer.ad 2 Puff IH PRN Q6HRS PRN 02/20/13 Reported Aspirin Ec (Aspirin) 325 Mg Tablet. 81 Mg PO DAILY 02/20/13 Reported Warfarin Sodium 5 Mg Tablet 6 Mg PO DAILY 02/19/13 Reported Warfarin Sodium 2.5 Mg Tablet 2.5 Mg PO 3X/WEEK 02/19/13 Reported monday,monday, Gabapentin (Gabapentin) 300 Mg Capsule 300 Mg PO DAILY 02/19/13 Reported Risperidone 1 Mg Tablet 1 Mg PO HS 02/19/13 Reported Novolog (Insulin Aspart) 100 Unit/1 Ml Vial 10 Unit SQ DAILYAC 02/19/13 Reported Potassium 99 Mg Tablet 20 Meq PO DAILY 02/19/13 Reported Comments reviewed cta 06/23 1. [address] is no CT evidence of pulmonary embolus. 2. Dilated pulmonary trunk suggests pulmonary arterial hypertension. 3. Moderate bilateral pleural effusions. 4. Unchanged right upper lobe bronchopneumonia. Scattered groundglass opacities in the lungs are similar to prior study and are likely infectious/inflammatory. 5. Mild mediastinal adenopathy may be reactive. Impression . 1. Ilhcm-de-fmamovk hypoxemic respiratory failure secondary to acute exacerbation of chronic obstructive pulmonary disease, pneumonia, 2. Abnormal CT of the chest 3. Pneumonia 4. Acute systolic congestive heart failure. 5. Acute exacerbation of chronic obstructive pulmonary disease. 6. Leukocytosis. 7. Anemia. 8. History of cerebrovascular accident. 9. Lower extremity edema, no dvt 10. Atrial fibrillation/atrial flutter on Coumadin. 11. Bioprosthetic aortic valve. 12. diarrhea, ? c diff Plan . D/C WITH HOSPICE 06/26 PALLIATIVE CARE NOTE I D/W PT 2575 Spoke with patient and Aura. Dr. Gonzales here. states patient can't come home--too difficult for her to handle without him getting stronger first. Would need children's input before making any decisions. Family can not meet until . Plan: Family Meeting to discuss plan of care. MANDEEP ZEPEDA MD June 28, 2018 10:12
[2018-06-28 11:00] VITALS: BP 110/29
--- NOTE | 2018-06-28 12:32 | NUR ---
Pharmacy Warfarin Dosing Note S:Pharmacy consulted to assist with anticoagulation therapy started with target INR: 2 -3 O:VICKI BRAUN is a 78 year old M with Atrial Fibrillation LABS: Last INR: 2.3 Last HGB: 9.6 Last HCT: 29.7 Last PLT: 245 Last dose of 2 mg given on 06/27/18 at 1713 Previous Regimen: Vitamin K given: N Drug Interaction Changes: Ongoing Drug Interactions: 06/25 INR THRU 06/28 Patient was discharged on 06/22 and readmitted on 06-23. INR on 06/22 was 2.4 and dose ordered was 4mg. Dose was NOT administered here at [facility] for 06/22. A:INR of 2.3 is within desired range. Target range for this patient is: 2 -3 P: Warfarin dose: 3 mg Today at 1600 Bridge Therapy: None Next INR due tomorrow. Pharmacy anticoagulation service will continue to follow. George Foley [facility], 06/28/18 0845
--- NOTE | 2018-06-28 13:05 | PDOC2 ---
PALLIATIVE CARE Palliative Care Note Palliative Care Met with patient prior to family meeting. Patient states he wants to go home---NO Group Home---does not want to return to the hospital. "I know I'm going to and I just want to be home" Met with --Christine, Dariela-friend of family, sons Ulises and Tab, daughter Gwendolyn and grandson Olu. Reviewed medical condition; Respiratory distress, CHF, BKA, seizures, at fib, DM HTN, Discussed options for care; wants patient to go to [facility] to get stronger before he comes home. other option discussed was home with hospice. Family expressed concern about not enough help for care. Questions answered about resources as well as family providing care and services hospice would provide. Family expressed concern that patient is sent back to hospital by hospice when he goes into atrial fibrillation. Patient and family do not want to return to hospital for this. Patient currently has equipment--bed oxygen etc. at home. Patient would need Bariatric Bed and another Phoeeb Life that patient's could operate. Son Ulises believes the patient should go home with Hospice. Discussed Code Status; Patient and family request DNR/DNI. Outside the Hospital DNR/DNI form signed by . Decision by patient and support of family is to go home with [facility]. Equipment currently in place will need to be removed and new hospital bed, Phoebe lift will need to be in place before patient can go home. Above reviewed with Raegan BAUGH. She will get in contact with equipment provider. [facility] also discussed as option for support at night. Informed that family would have to see that Sisters are picked up at 6pm and returned to [facility] by 6am. Also there is a waiting list for their services. Plan; HOme with [facility] --likely tomorrow when equipment is in place. DNR/DNI---will need physician signature. DEANDRA LACY June 28, 2018 13:05
--- NOTE | 2018-06-28 13:19 | NUR ---
AMAURI following Pt. Family has decided to take pt home tomorrow with [facility]. Cori from [facility] here to speak with pt's . AMAURI Phoned [facility] and spoke with Sister Margarita who requested for family to call them to make arrangements. AMAURI provided Pt's with their phone number/address and relayed information. 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 Pt's verbalized understanding. Discussed with RN.
[2018-06-28 15:00] VITALS: BP 114/26
[2018-06-28] MEDS ORDERED: WARFARIN 3 MG TABLET. PO ONE (16:00)
[2018-06-28] MEDS: oxyCODONE/APAP 5/325 1 TAB TABLET PO PRN (17:34)
--- NOTE | 2018-06-28 17:52 | PDOC ---
PROGRESS NOTES Assessment Assessment Metabolic encephalopathy. Seizure. Respiratory distress. Leukocytosis. Necrotic right toes, s/p right BKA. AFib. CAD, s/p CABG. CHF. DM. HTN. HLD. 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 Right BKA. RECOMMENDATIONS/PLAN: Treat medical diseases. Placement issues. Consulted Palliative Care team for family's goal of care. Family decided home hospice. Discussed with his on a daily basis at bedside. HCT on 05/22/18 and 06/24/18: negative for acute findings. EEG on 06/26/18: The posterior dominant rhythm is 6-8 Hz/s that is mildly slow for age. HISTORY OF THE PRESENT ILLNESS: This is a 78-year-old male who was discharged 06/22 after treatment for pneumonia and sepsis. This afternoon he became dyspneic with SpO2 in low 80s, so he was brought back to ER. On arrival to ER his saturations are above 95% on 3 L by nasal canula which is at his baseline O2 requirement. Received breathing treatment in ED with improvement in his respiratory effort. He has been having MS changes, further declined cognitive function, so he was hospitalized and neurology was requested for consultation. Past Medical History A-Fib, Anemia, Arthritis, CAD, CHF, COPD, Depression, Diabetes-Type II, High Cholesterol, Hypertension, MRSA, Seizure, Stroke, bronchiolitis obliterans, TREMORS,NECROTIC RT TOES, RT HEEL, LT OUTER ANKLE Cardiovascular: AFIB, HTN, DE Pulmonary: Asthma, Bronchitis, COPD, Pneumonia, Other CENTRAL NERVOUS SYSTEM: CVA, Periperal neuropathy GI: Other Heme/Onc: No pertinent hx Hepatobiliary: No pertinent hx Psych: Depression Musculoskeletal: Osteoarthritis Rheumatologic: No pertinent hx Infectious disease: No pertinent hx Renal/: Other Endocrine: Diabetes Past Surgical History Appendectomy, Coronary Bypass Surgery, MULTIPLE TOE AMP, ROTATOR CUFF, BOVINE VALVE, LT HIP Family History Coronary Artery Disease, HLD, Hypertension Social History Smoke: No ALCOHOL: none Drugs: None Allergies Coded Allergies: Fentanyl (Verified Allergy, Intermediate, 06/17/18) Per pt : agitation and difficulty awakening pt after I S O L A T I O N *CONTACT* (Verified Allergy, Unknown, 05/23/18), mrsa MEDICATIONS: Refer to [facility] REVIEW OF SYSTEMS: Constitutional: No malnutrition, weight loss, cachexia. Head: No traumatic brain or head injury. Skin: No edema, or rash. Ear: No infection. Eyes: No vision loss or color blindness. Nose: No bleeding or purulent discharges. Hearing: Hearing decrease. Neck: No injury. Cardiac: CAD, s/p CABG, AFib, HTN, HLD. Pulmonary: No COPD. GI: No GI ulcer, GI bleeding. Urinary/genital: UTI. Endocrinologic: Diabetes Mellitus, obesity. Skeletomuscular: Generalized weakness. Neurological: see HP. Psychiatric: Denies drug use/abuse. Otherwise, not [id number] review of systems. PHYSICAL EXAMINATION: General appearance is in subacute distress. HEENT: Normocephalic and nontraumatic. Eyes, nose, ears, and throat are unremarkable. Neck is supple. No lymphadenopathy. No crepitus. Cardiovascular: S1, S2, regular rate and rhythm. Pulmonary: Decreased to auscultation bilaterally. Abdomen: Bowel sounds are positive. Extremities: No rash or edema. No restriction of range of motion NEUROLOGICAL EXAMINATION: Awake. Not fully oriented to time, but knew in the hospital and person. PERRL. EOMI. CN: no focal findings. Muscle tone: Increased in left side. Within normal at right side. Muscle strength: 2+ left side, 4+ right UE. Right LE BKA. DTR: Not accurate in left side on exam due to increased tone. 2 right side. Plantar reflex: Neutral response left side, BKA right side. Gait: not able to walk. Sensory exam: no acute abnormal findings. No cerebellar signs elicited. F-T-N test not performed. Objective Objective Vital Signs Date Time Temp Pulse Resp B/P (MAP) Pulse Ox O2 Delivery O2 Flow Rate FiO2 06/28/18 15:00 97.9 69 14 114/26 (55) 97 Nasal Cannula 2.0 97.9 Intake and Output 06/28/18 07:00 Intake Total 120 ml Output Total 3875 ml Balance -3755 ml Intake Oral 120 ml Output Urine Total 3875 ml # Bowel Movements 1 Vitals Signs Vitals VS - Last 72 Hours, by Label Date Time Temp Pulse Resp B/P (MAP) Pulse Ox O2 Delivery O2 Flow Rate FiO2 06/28/18 15:00 97.9 69 14 114/26 (55) 97 Nasal Cannula 2.0 97.9 06/28/18 14:00 68 110/29 06/28/18 12:44 Nasal Cannula 2.0 06/28/18 11:00 97.7 68 16 110/29 (56) 95 Room Air 97.7 06/28/18 09:27 69 144/36 06/28/18 09:26 69 144/36 06/28/18 09:25 69 144/36 06/28/18 08:35 98 Nasal Cannula 2.0 06/28/18 08:35 98 Nasal Cannula 2.0 06/28/18 08:00 Nasal Cannula 2.0 06/28/18 07:00 97.5 69 14 144/36 (72) 100 Nasal Cannula 2.0 97.5 06/28/18 03:00 97.7 68 16 122/30 (60) 98 Nasal Cannula 2.0 97.7 06/27/18 22:36 98.4 68 16 133/34 (67) 97 Nasal Cannula 2.0 98.4 06/27/18 20:02 96 Nasal Cannula 2.0 06/27/18 20:01 96 Nasal Cannula 2.0 06/27/18 20:00 Nasal Cannula 2.0 06/27/18 19:00 97.5 65 18 123/67 (85) 98 Room Air 97.5 06/27/18 15:50 Nasal Cannula 2.0 06/27/18 15:00 99.0 69 12 112/70 (84) 99 Room Air 99.0 06/27/18 14:12 71 134/37 06/27/18 11:26 97 Room Air 06/27/18 11:00 97.5 70 18 156/39 (78) 100 Room Air 97.5 06/27/18 09:23 74 162/59 06/27/18 09:22 74 162/59 06/27/18 09:20 74 162/59 06/27/18 08:00 Nasal Cannula 2.0 06/27/18 07:23 96 Room Air 06/27/18 07:00 97.9 74 20 162/59 (93) 97 Room Air 97.9 Laboratory Laboratory Laboratory Tests Test 06/27/18 21:22 06/27/18 23:25 06/28/18 01:30 06/28/18 05:00 Glucose (Fingerstick) 212 mg/dL (70-99) 173 mg/dL (70-99) Creatinine 0.9 mg/dL (0.7-1.3) Estimated GFR (Cockcroft-Gault) 82.0 Vancomycin Level Trough 19.3 mcg/mL (10.0-20.0) Vancomycin Last Dose Date Vancomycin Last Dose Time 40 Prothrombin Time 24.7 SEC (11.7-14.0) Prothromb Time International Ratio 2.3 (0.8-1.1) Test 06/28/18 07:27 06/28/18 11:42 06/28/18 16:39 Glucose (Fingerstick) 147 mg/dL (70-99) 197 mg/dL (70-99) 158 mg/dL (70-99) Microbiology 06/23/18 Blood Culture - Final, Complete NO GROWTH AFTER 5 DAYS Medication Medications Current Medications Famotidine (Pepcid) 20 mg BID PO Last administered on 06/28/18at 09:26; Start 06/27/18 at 21:00 Vancomycin HCl (Vancomycin Trough Level) 1 each 1X ONCE MC Last administered on 06/27/18at 02:20; Start 06/27/18 at 23:30; Stop 06/27/18 at 23:31; Status DC Warfarin Sodium (Coumadin) 3 mg 1X WARF ONCE PO Last administered on 06/28/18at 17:07; Start 06/28/18 at 16:00; Stop 06/28/18 at 16:01; Status DC Comment Review of Relevant I have reviewed the following items navi (where applicable) has been applied. LIA MALIN MD June 28, 2018 17:52
[2018-06-28 19:00] VITALS: BP 156/41
[2018-06-28] MEDS: risperiDONE 1 MG TABLET. PO SCH (22:12)
[2018-06-28] MEDS: ATORVASTATIN CALCIUM 40 MG TABLET. PO SCH (22:12)
[2018-06-28 23:00] VITALS: BP 162/54
[2018-06-29] MEDS: VANCOMYCIN 1 GM in IV NORMAL SALINE 250ML 250 ML IV SCH (00:09)
[2018-06-29] MEDS: oxyCODONE/APAP 5/325 1 TAB TABLET PO PRN ×2 (02:26→12:40)
[2018-06-29 02:51] VITALS: BP 109/39
--- NOTE | 2018-06-29 05:44 | PDOC ---
Infectious Disease Note Subjective Subjective awake, going home on hospice ROS ROS no n/v/d/sob Vital Sign Vital Signs Vital Signs Date Time Temp Pulse Resp B/P (MAP) Pulse Ox O2 Delivery O2 Flow Rate FiO2 06/29/18 02:51 97.9 65 16 109/39 (62) 96 Nasal Cannula 2.0 97.9 Physical Exam PHYSICAL EXAM GENERAL: in bed,, alert, HENT: ISMAEL, Oral cavity/pharynx pink, dry. No thrush LUNGS: Clear anteriorly, nonlabored CV: S1 S2, regular ABD: Obese, soft, NT : [place] EXT: 2+ edema left leg. Right BKA stump incision healing well, steri strips in place. SKIN: No rash EXPORT MANAGER: Alert, responding appropriately RUE-PICC (POA) clean Labs Lab Laboratory Tests Test 06/28/18 07:27 06/28/18 11:42 06/28/18 16:39 06/28/18 20:56 Glucose (Fingerstick) 147 mg/dL (70-99) 197 mg/dL (70-99) 158 mg/dL (70-99) 192 mg/dL (70-99) Micro Microbiology 06/23/18 Blood Culture - Preliminary, Resulted NO GROWTH AFTER 2 DAYS Objective Assessment Persistent right perihilar infiltrate and pleural effusions Leukocytosis, had been on prednisone at [facility] h/o E. coli UTI, discharged on Keflex through 06/24 h/o MRSA bacteremia with sepsis from 05/18. Discharged on Dapto till 07/02. CPK 31 -CRYSTAL done no vegetations 05/21; BC from 05/20 & onward were neg Acute on chronic CHF h/o MRSA and Enterobacter ( R Augmentin/cefuroxime) infection h/o PSA ( R quinolones & I imipenem) infection Bioprosthetic aortic valve A- fib, anticoagulation on warfarin Diabetes Type II Seizure disorder, on Keppra H/o cholecystitis - U/S 06/18 Sludge in the gallbladder. No cholelithiasis or cholecystitis. No biliary dilatation visit is for CHF Plan Plan of Care pt has decided to go home on hospice iv cannot be done, he is ok with them will have him take po DAYANA Dejesus MD June 29, 2018 05:44
[2018-06-29 07:00] VITALS: BP 113/45
[2018-06-29] MEDS: IPRATROPIUM BROMIDE 0.5 MG/2.5 ML NEBU. NEB SCH ×3 (07:37→15:38)
[2018-06-29] MEDS: BUDESONIDE 0.5 MG/2 ML NEBU. NEB SCH (07:37)
--- NOTE | 2018-06-29 07:57 | SNU/HH DC ---
DISCHARGE WITH HOME HEALTH DISCHARGE INFORMATION: Discharge Date: June 29, 2018 Condition on Discharge: Stable CODE STATUS: Code Status: DNR/DNI HOME HEALTH: Face to Face: I certify this patient is under my care and that I, or a nurse practitioner or physician's periodicals library assistant working with me, had a face to face encounter that meets the physician face to face encounter requirements with this patient on []. Medical Complications: CHF, COPD, Falls, HTN, Other (sepsis) RN For Eval/Treatment: Yes Physical Therapy For: Evalulation/Treatment Occupational Therapy For: Evaluation/Treatment Home Health Aide For: Self-care UX DEVELOPER For: Community Resources Pt Meets Homebound Status: Unsteady balance w/ amb,, Extreme weakness w/ amb., Fatigue w/ amb. POST DISCHARGE ORDERS: Activity Instructions for Disc: Activity as tolerated Weight Bearing Status after Di: As tolerated Bathing Instructions: Shower-keep dressing dry DIET AFTER DISCHARGE: Cardiac Wound/Incision Care: Change dressing, Routine catheter care CHECKS AFTER DISCHARGE: Checks after discharge: Check blood press - daily, Check blood sugar, ac/hs, Weigh Yourself Daily Comment: home hospice FOLLOW-UP: DC TO SNF LABS: Weekly labs -CBC/CPK/CMP fax to [phone]. TREATMENT/EQUIPMENT ORDERS: Adaptive Equipment Issued: None Discharge Respiratory Equipmen: Oxygen CERTIFICATION STATEMENT: Certification Statement: Certification Statement: Based on the above finding, I certify that this patient is confined to the home and needs intermittent jail care, physical therapy and/or speech therapy, or continues to need occupational therapy.~ This patient is under my care, and I have initiated the establishment of the plan of care.~ This patient will be followed by myself or a community physician who will periodically review the plan of care. Home Meds Active Scripts Budesonide (BUDESONIDE) 0.5 Mg/2 Ml Ampul.neb, 0.5 MG NEB RTBID for soa MDD 1, #60 EACH Prov:ARABELLA MARTINEZ MD 06/28/18 Famotidine (FAMOTIDINE) 20 Mg Tablet, 20 MG PO BID for gerd MDD 1, #60 TAB Prov:ARABELLA MARTINEZ MD 06/28/18 Daptomycin (Daptomycin) 350 Mg Vial, 350 MG IV DAILY for MRSA infection stump for 10 Days, #10 EACH Prov:NEHAL NELSON MD 06/22/18 Cephalexin (CEPHALEXIN) 250 Mg Capsule, 500 MG PO QID for Pneumonia for 3 Days, #24 CAP Prov:NEHAL NELSON MD 06/22/18 Oxycodone/Apap 5-325 (PERCOCET 5-325 MG TABLET ) 1 Each Tablet, 1 TAB PO PRN Q4HRS PRN for PAIN for 6 Days, #18 TAB Prov:NEHAL NELSON MD 06/22/18 Digoxin (DIGOXIN) 125 Mcg Tablet, 125 MCG PO DAILY, #30 TAB-CAP Prov:MAUREEN BRIDGES MD 05/15/16 Furosemide (FUROSEMIDE) 40 Mg Tablet, 40 MG PO DAILY, #30 TAB-CAP Prov:MAUREEN BRIDGES MD 05/15/16 Metoprolol Tartrate (METOPROLOL TARTRATE) 50 Mg Tablet, 50 MG PO BID, #60 TAB Prov:ISAAC SPRINGER MD 02/24/16 [Warfarin Sodium] 1 EACH EACH No Conflict Check, 1 EACH PRN DAILY PRN for SEE COMMENTS Prov:ISAAC SPRINGER MD 02/24/16 Lisinopril (LISINOPRIL) 20 Mg Tablet, 20 MG PO DAILY, #30 TAB Prov:ISAAC SPRINGER MD 02/24/16 Ipratropium/Albuterol Sulfate (DUONEB 0.5-3(2.5) MG/3 ML) 3 Ml Ampul.neb, 3 ML NEB Q4HRS W/A for 30 Days, ML Prov:ISAAC SPRINGER MD 02/24/16 Hydralazine Hcl (HYDRALAZINE HCL) 10 Mg Tablet, 10 MG PO TID, #90 TAB Prov:ISAAC SPRINGER MD 02/24/16 Reported Medications Zonisamide (ZONISAMIDE) 100 Mg Capsule, 400 MG PO DAILY 05/11/16 Multivitamin (MULTIVITAMINS) 1 Each Tablet, 1 TAB PO DAILY, #90 TAB 3 Refills 05/11/16 Levetiracetam (LEVETIRACETAM) 250 Mg Tablet, 1250 MG PO BID, TAB 05/11/16 Atorvastatin Calcium (ATORVASTATIN CALCIUM) 80 Mg Tablet, 1 TAB PO DAILY, #30 TAB 5 Refills 05/11/16 Acetaminophen (ACETAMINOPHEN) 500 Mg Tablet, 1 TAB PO PRN Q6HRS PRN for MILD PAIN / TEMP, #60 TAB 1 Refill 05/11/16 Albuterol Sulfate (ALBUTEROL SULFATE HFA INHALER) 8.5 Gm Hfa.aer.ad, 2 PUFF IH PRN Q6HRS PRN for SHORTNESS OF BREATH 02/20/13 Aspirin (ASPIRIN EC) 325 Mg Tablet.dr, 81 MG PO DAILY 02/20/13 Warfarin Sodium (WARFARIN SODIUM) 5 Mg Tablet, 6 MG PO DAILY 02/19/13 Warfarin Sodium (WARFARIN SODIUM) 2.5 Mg Tablet, 2.5 MG PO 3X/WEEK monday,monday,02/19/13 Gabapentin (GABAPENTIN ) 300 Mg Capsule, 300 MG PO DAILY 02/19/13 Risperidone (RISPERIDONE) 1 Mg Tablet, 1 MG PO HS 02/19/13 Insulin Aspart (NOVOLOG) 100 Unit/1 Ml Vial, 10 UNIT SQ DAILYAC, VIAL 02/19/13 Potassium (POTASSIUM) 99 Mg Tablet, 20 MEQ PO DAILY 02/19/13 Discontinued Reported Medications Nph, Human Insulin Isophane (NOVOLIN N) 100 Unit/1 Ml Vial, SQ, VIAL 05/11/16 Rosuvastatin Calcium (CRESTOR) 40 Mg Tablet, 40 MG PO DAILY 02/19/13 Oxycodone Hcl/Acetaminophen (OXYCODONE-ACETAMINOPHEN 10-325) 1 Each Tablet, 1 EACH PO PRN Q6HRS 02/19/13 Prednisone (PREDNISONE ) 10 Mg Tablet, 10 MG PO DAILY 02/19/13 Metformin Hcl (METFORMIN HCL) 500 Mg Tablet, 1000 MG PO BIDBFRMEAL 02/19/13 ARABELLA MARTINEZ MD June 29, 2018 07:57
[2018-06-29] MEDS: LACTOBACILLUS RHAMNOSUS GG 1 CAPSULE. PO SCH (08:26)
[2018-06-29] MEDS: ASPIRIN ENTERIC COATED 81 MG TABLET.DR. PO SCH (08:27)
[2018-06-29] MEDS: ZONISAMIDE 100 MG CAPSULE. PO SCH (08:27)
[2018-06-29] MEDS: MULTIVITAMIN with MINERAL TABLET. PO SCH (08:27)
[2018-06-29] MEDS: FAMOTIDINE 20 MG TABLET. PO SCH (08:27)
[2018-06-29] MEDS: POTASSIUM CHLORIDE 20 MEQ TABLET.ER. PO SCH (08:27)
[2018-06-29] MEDS: LISINOPRIL 20 MG TABLET PO SCH (08:29)
[2018-06-29] MEDS: hydrALAZINE 10 MG TABLET PO SCH ×2 (08:30→14:00)
[2018-06-29] MEDS: METOPROLOL TART IMMED RELEASE 25 MG TABLET. PO SCH (08:30)
[2018-06-29] MEDS: GABAPENTIN 300 MG CAPSULE. PO SCH (08:30)
[2018-06-29] MEDS: FUROSEMIDE 40 MG/4 ML VIAL. IVP SCH (08:31)
[2018-06-29] MEDS: INSULIN LISPRO 300 UNITS/3 ML INSULN.PEN. SQ SCH ×2 (08:45→12:00)
--- NOTE | 2018-06-29 09:14 | PDOC3 ---
Discharge Summary Visit Information Date of Admission: June 23, 2018 Date of Discharge: June 29, 2018 Admitting Diagnosis Comment: 1. Acute on chronic hypoxic respiratory failure secondary to acute COPD exacerbation, pneumonia and mild acute on chronic systolic heart failure. 2. Acute on chronic systolic heart failure; better compensated following IV diuresis 3. Coronary artery disease s/p coronary artery bypass surgery (AGUILAR to LAD, SVG to D2, SVG to OM and SVG to PDA) in 2012. Stable. CP free. 4. Mild troponin elevation; peak 0.06. Most probably demand ischemia. Echo 05/2018 showed LVEF 35-40%. 5. Bioprosthetic AVR, stable. Recent echo with normal function. 6. Permanent AFIB/flutter; notable for 4 sec pause yesterday and intermittent 2-3 sec. 7. 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 Hypertension: controlled 9. PAD s/p RBKA and left toe amputations, appears stable clinically 8. DM2: per IM 9. Hyperlipidemia; statin therapy 10. Chronic coumadin therapy: INR 4.2 hold dose today 11. Anemia: Hgb 7, no obvious bleed, S/P transfusion 12. 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 EF 35-40 13, DNR Brief Hospital Course Allergies Allergies Coded Allergies Type Severity Reaction Last Updated Verified fentanyl Allergy Intermediate 06/17/18 Yes I S O L A T I O N *CONTACT* Allergy Unknown 05/23/18 Yes Vital Signs Vital Signs Date Time Temp Pulse Resp B/P (MAP) Pulse Ox O2 Delivery O2 Flow Rate FiO2 06/29/18 08:30 116/45 06/29/18 07:39 98 Nasal Cannula 1.0 06/29/18 07:00 97.9 66 16 97.9 Lab Results Laboratory Tests Test 06/27/18 11:45 06/27/18 13:39 06/27/18 16:15 06/27/18 21:22 Glucose (Fingerstick) 210 mg/dL (70-99) 184 mg/dL (70-99) 163 mg/dL (70-99) 212 mg/dL (70-99) Test 06/27/18 23:25 06/28/18 01:30 06/28/18 05:00 06/28/18 07:27 Glucose (Fingerstick) 173 mg/dL (70-99) 147 mg/dL (70-99) Creatinine 0.9 mg/dL (0.7-1.3) Estimated GFR (Cockcroft-Gault) 82.0 Vancomycin Level Trough 19.3 mcg/mL (10.0-20.0) Vancomycin Last Dose Date Vancomycin Last Dose Time 40 Prothrombin Time 24.7 SEC (11.7-14.0) Prothromb Time International Ratio 2.3 (0.8-1.1) Test 06/28/18 11:42 06/28/18 16:39 06/28/18 20:56 06/29/18 07:27 Glucose (Fingerstick) 197 mg/dL (70-99) 158 mg/dL (70-99) 192 mg/dL (70-99) 177 mg/dL (70-99) Laboratory Tests Test 06/28/18 11:42 06/28/18 16:39 06/28/18 20:56 06/29/18 07:27 Glucose (Fingerstick) 197 mg/dL (70-99) 158 mg/dL (70-99) 192 mg/dL (70-99) 177 mg/dL (70-99) Brief Hospital Course Mr. Neri is a 78 old male who has multiple comorbidities placed refer to the above diagnoses. He has frequent the hospital so often. He came from home with . is unable to take care of him. Patient is agreeable to hospice but just wants to go home and not SNU with hospice. Palliative had to be involved because needed some encouragement for the and the whole family to accept or follow patient's wishes. Patient stayed around a week with us. Continue all other meds, but will be DNR and home hospice. Patient voiced out that he wants to at home and not in the different facility or SNU place Conuslts performed multiple including pulmonary infectious disease, cardiology etc. Procedures performed none just medications and imaging dc < 30 Discharge Information Condition at Discharge: Stable Disposition/Orders: D/C to Home w/ Hospice Scheduled Aspirin (Aspirin Ec) 325 Mg Tablet., 81 MG PO DAILY, (Reported) Entered as Reported by: Briana Del Real on 02/20/13 0268 Last Action: Continued on 06/23/181828 by DANA ROSEN Atorvastatin Calcium (Atorvastatin Calcium) 80 Mg Tablet, 1 TAB PO DAILY, #30 Ref 5 (Reported) Entered as Reported by: NATALIO ARDON on 05/11/16 0103 Last Action: Converted on 06/23/181828 by DANA ROSEN Budesonide (Budesonide) 0.5 Mg/2 Ml Ampul.neb, 0.5 MG NEB RTBID for soa MDD 1, #60 Prescribed by: ARABELLA MARTINEZ on 06/28/18 0933 Cephalexin (Cephalexin) 250 Mg Capsule, 500 MG PO QID for Pneumonia for 3 Days, #24 Prescribed by: NEHAL NELSON MD on 06/22/18 1032 Daptomycin (Daptomycin) 350 Mg Vial, 350 MG IV DAILY for MRSA infection stump for 10 Days, #10 Prescribed by: ENHAL NELSON MD on 06/22/18 1032 Digoxin (Digoxin) 125 Mcg Tablet, 125 MCG PO DAILY, #30 Prescribed by: MAUREEN BRIDGES MD on 05/15/16 1009 Last Action: Continued on 06/23/181828 by DANA ROSEN Famotidine (Famotidine) 20 Mg Tablet, 20 MG PO BID for gerd MDD 1, #60 Prescribed by: ARABELLA MARTINEZ on 06/28/18 0933 Furosemide (Furosemide) 40 Mg Tablet, 40 MG PO DAILY, #30 Prescribed by: MAUREEN BRIDGES MD on 05/15/16 1007 Last Action: Continued on 06/23/181828 by DANA ROSEN Gabapentin (Gabapentin ) 300 Mg Capsule, 300 MG PO DAILY, (Reported) Entered as Reported by: STEVEN WASHBURN on 02/19/132017 Last Action: Continued on 06/23/181828 by DANA ROSEN Hydralazine Hcl (Hydralazine Hcl) 10 Mg Tablet, 10 MG PO TID, #90 Prescribed by: ISAAC SPRINGER MD on 02/24/16 1434 Last Action: Converted on 06/23/181828 by DANA ROSEN Insulin Aspart (Novolog) 100 Unit/1 Ml Vial, 10 UNIT SQ DAILYAC, (Reported) Entered as Reported by: STEVEN WASHBURN on 02/19/132017 Ipratropium/Albuterol Sulfate (Duoneb 0.5-3(2.5) Mg/3 Ml) 3 Ml Ampul.neb, 3 ML NEB Q4HRS W/A for 30 Days Prescribed by: ISAAC SPRINGER MD on 02/24/16 1434 Levetiracetam (Levetiracetam) 250 Mg Tablet, 1,250 MG PO BID, (Reported) Entered as Reported by: NATALIO ARDON on 05/11/16112 Last Action: Converted on 06/23/181828 by DANA ROSEN Lisinopril (Lisinopril) 20 Mg Tablet, 20 MG PO DAILY, #30 Prescribed by: ISAAC SPRINGER MD on 02/24/16 1434 Last Action: Continued on 06/23/181828 by DANA ROSEN Metoprolol Tartrate (Metoprolol Tartrate) 50 Mg Tablet, 50 MG PO BID, #60 Prescribed by: ISAAC SPRINGER MD on 02/24/16 1434 Last Action: Continued on 06/23/181828 by DANA ROSEN Multivitamin (Multivitamins) 1 Each Tablet, 1 TAB PO DAILY, #90 Ref 3 (Reported) Entered as Reported by: NATALIO ARDON on 05/11/16115 Last Action: Converted on 06/23/181828 by DANA ROSEN Potassium (Potassium) 99 Mg Tablet, 20 MEQ PO DAILY, (Reported) Entered as Reported by: STEVEN WASHBURN on 02/19/132017 Last Action: Converted on 06/23/181828 by DANA ROSEN Risperidone (Risperidone) 1 Mg Tablet, 1 MG PO HS, (Reported) Entered as Reported by: STEVEN WASHBURN on 02/19/132017 Last Action: Converted on 06/23/181828 by DANA ROSEN Warfarin Sodium (Warfarin Sodium) 2.5 Mg Tablet, 2.5 MG PO 3X/WEEK, (Reported) monday,monday, Entered as Reported by: STEVEN WASHBURN on 02/19/132017 Warfarin Sodium (Warfarin Sodium) 5 Mg Tablet, 6 MG PO DAILY, (Reported) Entered as Reported by: STEVEN WASHBURN on 02/19/132017 Zonisamide (Zonisamide) 100 Mg Capsule, 400 MG PO DAILY, (Reported) Entered as Reported by: NATALIO ARDON on 05/11/16 0122 Last Action: Converted on 06/23/18 1829 by DANA ROSEN Scheduled PRN Acetaminophen (Acetaminophen) 500 Mg Tablet, 1 TAB PO PRN Q6HRS PRN for MILD PAIN / TEMP, #60 Ref 1 (Reported) Entered as Reported by: NATALIO ARDON on 05/11/16 0103 Albuterol Sulfate (Albuterol Sulfate Hfa Inhaler) 8.5 Gm Hfa.aer.ad, 2 PUFF IH PRN Q6HRS PRN for SHORTNESS OF BREATH, (Reported) Entered as Reported by: Briana Del Real on 02/20/13 0415 Oxycodone/Apap 5-325 (Percocet 5-325 Mg Tablet ) 1 Each Tablet, 1 TAB PO PRN Q4HRS PRN for PAIN for 6 Days, #18 Prescribed by: NEHAL NELSON MD on 06/22/18 1032 [Warfarin Sodium] 1 EACH EACH, 1 EACH MC PRN DAILY PRN for SEE COMMENTS Prescribed by: ISAAC SPRINGER MD on 02/24/16 1434 Discontinued Medications Metformin Hcl (Metformin Hcl) 500 Mg Tablet, 1,000 MG PO BIDBFRMEAL, (Reported) Entered as Reported by: STEVEN WASHBURN on 02/19/13 2018 Nph, Human Insulin Isophane (Novolin N) 100 Unit/1 Ml Vial, Unknown Dose SQ, (Reported) Entered as Reported by: NATALIO ARDON on 05/11/16 0113 Oxycodone Hcl/Acetaminophen (Oxycodone-Acetaminophen 10-325) 1 Each Tablet, 1 EACH PO PRN Q6HRS, (Reported) Entered as Reported by: STEVEN WASHBURN on 02/19/132017 Prednisone (Prednisone ) 10 Mg Tablet, 10 MG PO DAILY, (Reported) Entered as Reported by: STEVEN WASHBURN on 02/19/132017 Rosuvastatin Calcium (Crestor) 40 Mg Tablet, 40 MG PO DAILY, (Reported) Entered as Reported by: STEVEN WASHBURN on 02/19/132018 ARABELLA MARTINEZ MD June 29, 2018 09:14
[2018-06-29] MEDS: levETIRAcetam 250 MG TABLET PO SCH (10:55)
[2018-06-29 11:00] VITALS: BP 99/34
--- NOTE | 2018-06-29 11:08 | SNU/HH DC ---
DISCHARGE ORDERS DISCHARGE INFORMATION: DISCHARGE DATE: June 29, 2018 CONDITION ON DISCHARGE: Stable CODE STATUS: Code Status: DNR/DNI HALFWAY: SNF STAY <30 DAYS: No HOSPICE: HOSPICE: Yes HOSPICE EVAL & TREAT: Yes LTAC: ADMIT TO LTAC: No POST DISCHARGE ORDERS: ACTIVITY ORDERS: Activity as tolerated WEIGHT BEARING STATUS: As tolerated BATHING ORDERS: Shower-keep dressing dry DIET AFTER DISCHARGE: Cardiac WOUND/INCISION CARE: Change dressing, Routine catheter care CHECKS AFTER DISCHARGE: CHECKS AFTER DISCHARGE: Check blood press - daily, Check blood sugar, ac/hs, Weigh Yourself Daily COMMENTS: home hospice FOLLOW-UP: LAB ORDERS FOR FOLLOW-UP: Weekly labs -CBC/CPK/CMP fax to [phone]. TREATMENT/EQUIPMENT ORDERS: ADAPTIVE EQUIPMENT NEEDED: None RESPIRATORY EQUIPMENT NEEDED: Oxygen Physical Therapy For: Evalulation/Treatment Occupational Therapy For: Evaluation/Treatment Speech Language Pathology For: Evaluation/Treatment DISCHARGE MEDICATIONS: Home Meds Active Scripts Budesonide (BUDESONIDE) 0.5 Mg/2 Ml Ampul.neb, 0.5 MG NEB RTBID for soa MDD 1, #60 EACH Prov:ARABELLA MARTINEZ MD 06/28/18 Famotidine (FAMOTIDINE) 20 Mg Tablet, 20 MG PO BID for gerd MDD 1, #60 TAB Prov:ARABELLA MARTINEZ MD 06/28/18 Oxycodone/Apap 5-325 (PERCOCET 5-325 MG TABLET ) 1 Each Tablet, 1 TAB PO PRN Q4HRS PRN for PAIN for 6 Days, #18 TAB Prov:NEHAL NELSON MD 06/22/18 Digoxin (DIGOXIN) 125 Mcg Tablet, 125 MCG PO DAILY, #30 TAB-CAP Prov:MAUREEN BRIDGES MD 05/15/16 Furosemide (FUROSEMIDE) 40 Mg Tablet, 40 MG PO DAILY, #30 TAB-CAP Prov:MAUREEN BRIDGES MD 05/15/16 Metoprolol Tartrate (METOPROLOL TARTRATE) 50 Mg Tablet, 50 MG PO BID, #60 TAB Prov:ISAAC SPRINGER MD 02/24/16 [Warfarin Sodium] 1 EACH EACH No Conflict Check, 1 EACH MC PRN DAILY PRN for SEE COMMENTS Prov:ISAAC SPRINGER MD 02/24/16 Lisinopril (LISINOPRIL) 20 Mg Tablet, 20 MG PO DAILY, #30 TAB Prov:ISAAC SPRINGER MD 02/24/16 Ipratropium/Albuterol Sulfate (DUONEB 0.5-3(2.5) MG/3 ML) 3 Ml Ampul.neb, 3 ML NEB Q4HRS W/A for 30 Days, ML Prov:ISAAC SPRINGER MD 02/24/16 Hydralazine Hcl (HYDRALAZINE HCL) 10 Mg Tablet, 10 MG PO TID, #90 TAB Prov:ISAAC SPRINGER MD 02/24/16 Reported Medications Zonisamide (ZONISAMIDE) 100 Mg Capsule, 400 MG PO DAILY 05/11/16 Multivitamin (MULTIVITAMINS) 1 Each Tablet, 1 TAB PO DAILY, #90 TAB 3 Refills 05/11/16 Levetiracetam (LEVETIRACETAM) 250 Mg Tablet, 1250 MG PO BID, TAB 05/11/16 Atorvastatin Calcium (ATORVASTATIN CALCIUM) 80 Mg Tablet, 1 TAB PO DAILY, #30 TAB 5 Refills 05/11/16 Acetaminophen (ACETAMINOPHEN) 500 Mg Tablet, 1 TAB PO PRN Q6HRS PRN for MILD PAIN / TEMP, #60 TAB 1 Refill 05/11/16 Albuterol Sulfate (ALBUTEROL SULFATE HFA INHALER) 8.5 Gm Hfa.aer.ad, 2 PUFF IH PRN Q6HRS PRN for SHORTNESS OF BREATH 02/20/13 Aspirin (ASPIRIN EC) 325 Mg Tablet.dr, 81 MG PO DAILY 02/20/13 Warfarin Sodium (WARFARIN SODIUM) 5 Mg Tablet, 6 MG PO DAILY 02/19/13 Warfarin Sodium (WARFARIN SODIUM) 2.5 Mg Tablet, 2.5 MG PO 3X/WEEK monday,monday,02/19/13 Gabapentin (GABAPENTIN ) 300 Mg Capsule, 300 MG PO DAILY 02/19/13 Risperidone (RISPERIDONE) 1 Mg Tablet, 1 MG PO HS 02/19/13 Insulin Aspart (NOVOLOG) 100 Unit/1 Ml Vial, 10 UNIT SQ DAILYAC, VIAL 02/19/13 Potassium (POTASSIUM) 99 Mg Tablet, 20 MEQ PO DAILY 02/19/13 Discontinued Reported Medications Nph, Human Insulin Isophane (NOVOLIN N) 100 Unit/1 Ml Vial, SQ, VIAL 05/11/16 Rosuvastatin Calcium (CRESTOR) 40 Mg Tablet, 40 MG PO DAILY 02/19/13 Oxycodone Hcl/Acetaminophen (OXYCODONE-ACETAMINOPHEN 10-325) 1 Each Tablet, 1 EACH PO PRN Q6HRS 02/19/13 Prednisone (PREDNISONE ) 10 Mg Tablet, 10 MG PO DAILY 02/19/13 Metformin Hcl (METFORMIN HCL) 500 Mg Tablet, 1000 MG PO BIDBFRMEAL 02/19/13 Discontinued Scripts Daptomycin (Daptomycin) 350 Mg Vial, 350 MG IV DAILY for MRSA infection stump for 10 Days, #10 EACH Prov:NEHAL NELSON MD 06/22/18 Cephalexin (CEPHALEXIN) 250 Mg Capsule, 500 MG PO QID for Pneumonia for 3 Days, #24 CAP Prov:NEHAL NELSON MD 06/22/18 ARABELLA MARTINEZ MD June 29, 2018 11:08
[2018-06-29] MEDS ORDERED: DOXYCYCLINE HYCLATE 100 MG TABLET PO SCH (12:00)
--- NOTE | 2018-06-29 12:14 | PDOC ---
PULMONARY PROGRESS NOTES Subjective COMFORTABLE NOT SOA Vitals Vital Signs Date Time Temp Pulse Resp B/P (MAP) Pulse Ox O2 Delivery O2 Flow Rate FiO2 06/29/18 11:29 Nasal Cannula 1.0 06/29/18 11:00 97.9 67 17 99/34 (55) 99 97.9 ROS: No Nausea, No Chest Pain, No Increase Cough HEENT: Other Lungs: Wheezing, Crackles, Other Cardiovascular: Other (irreg irreg) Abdomen: Soft, Non-tender, Other Neuro Exam: Alert Extremities: Other (edema) Skin: Warm Labs Laboratory Tests Test 06/27/18 13:39 06/27/18 16:15 06/27/18 21:22 06/27/18 23:25 Glucose (Fingerstick) 184 mg/dL (70-99) 163 mg/dL (70-99) 212 mg/dL (70-99) 173 mg/dL (70-99) Test 06/28/18 01:30 06/28/18 05:00 06/28/18 07:27 06/28/18 11:42 Creatinine 0.9 mg/dL (0.7-1.3) Estimated GFR (Cockcroft-Gault) 82.0 Vancomycin Level Trough 19.3 mcg/mL (10.0-20.0) Vancomycin Last Dose Date Vancomycin Last Dose Time 004 Prothrombin Time 24.7 SEC (11.7-14.0) Prothromb Time International Ratio 2.3 (0.8-1.1) Glucose (Fingerstick) 147 mg/dL (70-99) 197 mg/dL (70-99) Test 06/28/18 16:39 06/28/18 20:56 06/29/18 07:27 06/29/18 11:28 Glucose (Fingerstick) 158 mg/dL (70-99) 192 mg/dL (70-99) 177 mg/dL (70-99) 179 mg/dL (70-99) Laboratory Tests Test 06/28/18 16:39 06/28/18 20:56 06/29/18 07:27 06/29/18 11:28 Glucose (Fingerstick) 158 mg/dL (70-99) 192 mg/dL (70-99) 177 mg/dL (70-99) 179 mg/dL (70-99) Medications Active Scripts Medications Dose Route/Sig Max Daily Dose Days Date Category Dose Instructions Daptomycin 350 Mg Vial 350 Mg IV DAILY 10 06/22/18 Rx Cephalexin 250 Mg Capsule 500 Mg PO QID 3 06/22/18 Rx Percocet 5-325 Mg Tablet (Oxycodone/Acetaminophen) 1 Each Tablet 1 Tab PO PRN Q4HRS PRN 6 06/22/18 Rx Digoxin 125 Mcg Tablet 125 Mcg PO DAILY 05/15/16 Rx Furosemide 40 Mg Tablet 40 Mg PO DAILY 05/15/16 Rx Zonisamide 100 Mg Capsule 400 Mg PO DAILY 05/11/16 Reported Multivitamins (Multivitamin) 1 Each Tablet 1 Tab PO DAILY 05/11/16 Reported Levetiracetam 250 Mg Tablet 1,250 Mg PO BID 05/11/16 Reported Atorvastatin Calcium 80 Mg Tablet 1 Tab PO DAILY 05/11/16 Reported Acetaminophen 500 Mg Tablet 1 Tab PO PRN Q6HRS PRN 05/11/16 Reported Metoprolol Tartrate 50 Mg Tablet 50 Mg PO BID 02/24/16 Rx [Warfarin Sodium] 1 EACH Each 1 Each MC PRN DAILY PRN 02/24/16 Rx Lisinopril 20 Mg Tablet 20 Mg PO DAILY 02/24/16 Rx Duoneb 0.5-3(2.5) Mg/3 Ml (Albuterol/Ipratropium) 3 Ml Ampul.neb 3 Ml NEB Q4HRS W/A 30 02/24/16 Rx Hydralazine Hcl 10 Mg Tablet 10 Mg PO TID 02/24/16 Rx Albuterol Sulfate Hfa Inhaler (Albuterol Sulfate) 8.5 Gm Hfa.aer.ad 2 Puff IH PRN Q6HRS PRN 02/20/13 Reported Aspirin Ec (Aspirin) 325 Mg Tablet.dr 81 Mg PO DAILY 02/20/13 Reported Warfarin Sodium 5 Mg Tablet 6 Mg PO DAILY 02/19/13 Reported Warfarin Sodium 2.5 Mg Tablet 2.5 Mg PO 3X/WEEK 02/19/13 Reported monday,monday, Gabapentin (Gabapentin) 300 Mg Capsule 300 Mg PO DAILY 02/19/13 Reported Risperidone 1 Mg Tablet 1 Mg PO HS 02/19/13 Reported Novolog (Insulin Aspart) 100 Unit/1 Ml Vial 10 Unit SQ DAILYAC 02/19/13 Reported Potassium 99 Mg Tablet 20 Meq PO DAILY 02/19/13 Reported Comments reviewed cta 06/23 1. There is no CT evidence of pulmonary embolus. 2. Dilated pulmonary trunk suggests pulmonary arterial hypertension. 3. Moderate bilateral pleural effusions. 4. Unchanged right upper lobe bronchopneumonia. Scattered groundglass opacities in the lungs are similar to prior study and are likely infectious/inflammatory. 5. Mild mediastinal adenopathy may be reactive. Impression . 1. [id number] hypoxemic respiratory failure secondary to acute exacerbation of chronic obstructive pulmonary disease, pneumonia, 2. Abnormal CT of the chest 3. Pneumonia 4. Acute systolic congestive heart failure. 5. Acute exacerbation of chronic obstructive pulmonary disease. 6. Leukocytosis. 7. Anemia. 8. History of cerebrovascular accident. 9. Lower extremity edema, no dvt 10. Atrial fibrillation/atrial flutter on Coumadin. 11. Bioprosthetic aortic valve. 12. diarrhea, ? c diff Plan . D/C TODAY MANDEEP ZEPEDA MD June 29, 2018 12:14
--- NOTE | 2018-06-29 12:34 | NUR ---
SS following up with discharge planning. SS received notification from [facility] stating that equipment would be picked up from pt's home at 1400. SS contacted Nelli from [facility] and she reported that there equipment would be delivered between 1500 and 1600. SS phoned and faxed discharge orders to [facility]. Pt will discharge today and return to home with [facility] at 1630 via [facility] ambulance. Pt, pt's RN, and pt's spouse notified.
[2018-06-29 13:05] LABS: PROTHROMBIN TIME PATIENT 23.5 SEC (11.7-14.0)
[2018-06-29] MEDS ORDERED: WARFARIN 4 MG TABLET. PO ONE (14:00)
--- NOTE | 2018-06-29 14:06 | NUR ---
Pharmacy Warfarin Dosing Note S:Pharmacy consulted to assist with anticoagulation therapy started with target INR: 2 -3 O:VICKI BRAUN is a 78 year old M with Atrial Fibrillation LABS: Last INR: 2.1 Last HGB: 9.6 Last HCT: 29.7 Last PLT: 245 Last dose of 3 mg given on 06/28/18 at 1707 Previous Regimen: Vitamin K given: N Drug Interaction Changes: Ongoing Drug Interactions: 06/25 INR THRU 06/28 Patient was discharged on 06/22 and readmitted on 06-23. INR on 06/22 was 2.4 and dose ordered was 4mg. Dose was NOT administered here at [facility] for 06/22. A:INR of 2.1 is within desired range. Target range for this patient is: 2 -3 P: Warfarin dose: 4 mg Today at 1400 Bridge Therapy: None Next INR due per PCP. Pharmacy anticoagulation service will continue to follow. George Foley [facility], 06/29/18 [id number]
--- NOTE | 2018-06-29 14:42 | PDOC ---
PROGRESS NOTES Assessment Assessment Metabolic encephalopathy. Seizure. Respiratory distress. Leukocytosis. Necrotic right toes, s/p right BKA. AFib. CAD, s/p CABG. CHF. DM. HTN. HLD. 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 Right BKA. RECOMMENDATIONS/PLAN: Treat medical diseases. Placement issues. Consulted Palliative Care team for family's goal of care. Family decided home hospice. Discussed with his before at bedside. HCT on 05/22/18 and 06/24/18: negative for acute findings. EEG on 06/26/18: The posterior dominant rhythm is 6-8 Hz/s that is mildly slow for age. HISTORY OF THE PRESENT ILLNESS: This is a 78-year-old male who was discharged 06/22 after treatment for pneumonia and sepsis. This afternoon he became dyspneic with SpO2 in low 80s, so he was brought back to ER. On arrival to ER his saturations are above 95% on 3 L by nasal canula which is at his baseline O2 requirement. Received breathing treatment in ED with improvement in his respiratory effort. He has been having MS changes, further declined cognitive function, so he was hospitalized and neurology was requested for consultation. Past Medical History A-Fib, Anemia, Arthritis, CAD, CHF, COPD, Depression, Diabetes-Type II, High Cholesterol, Hypertension, MRSA, Seizure, Stroke, bronchiolitis obliterans, TREMORS,NECROTIC RT TOES, RT HEEL, LT OUTER ANKLE Cardiovascular: AFIB, HTN, [place] Pulmonary: Asthma, Bronchitis, COPD, Pneumonia, Other CENTRAL NERVOUS SYSTEM: CVA, Periperal neuropathy GI: Other Heme/Onc: No pertinent hx Hepatobiliary: No pertinent hx Psych: Depression Musculoskeletal: Osteoarthritis Rheumatologic: No pertinent hx Infectious disease: No pertinent hx Renal/: Other Endocrine: Diabetes Past Surgical History Appendectomy, Coronary Bypass Surgery, MULTIPLE TOE AMP, ROTATOR CUFF, BOVINE VALVE, LT HIP Family History Coronary Artery Disease, HLD, Hypertension Social History Smoke: No ALCOHOL: none Drugs: None Allergies Coded Allergies: Fentanyl (Verified Allergy, Intermediate, 06/17/18) Per pt : agitation and difficulty awakening pt after I S O L A T I O N *CONTACT* (Verified Allergy, Unknown, 05/23/18), mrsa MEDICATIONS: Refer to MAR REVIEW OF SYSTEMS: Constitutional: No malnutrition, weight loss, cachexia. Head: No traumatic brain or head injury. Skin: No edema, or rash. Ear: No infection. Eyes: No vision loss or color blindness. Nose: No bleeding or purulent discharges. Hearing: Hearing decrease. Neck: No injury. Cardiac: CAD, s/p CABG, AFib, HTN, HLD. Pulmonary: No COPD. GI: No GI ulcer, GI bleeding. Urinary/genital: UTI. Endocrinologic: Diabetes Mellitus, obesity. Skeletomuscular: Generalized weakness. Neurological: see HP. Psychiatric: Denies drug use/abuse. Otherwise, not [id number] review of systems. PHYSICAL EXAMINATION: General appearance is in subacute distress. HEENT: Normocephalic and nontraumatic. Eyes, nose, ears, and throat are unremarkable. Neck is supple. No lymphadenopathy. No crepitus. Cardiovascular: S1, S2, regular rate and rhythm. Pulmonary: Decreased to auscultation bilaterally. Abdomen: Bowel sounds are positive. Extremities: No rash or edema. No restriction of range of motion NEUROLOGICAL EXAMINATION: Awake. Not fully oriented to time, but knew in the hospital and person. PERRL. EOMI. CN: no focal findings. Muscle tone: Increased in left side. Within normal at right side. Muscle strength: 2+ left side, 4+ right UE. Right LE BKA. DTR: Not accurate in left side on exam due to increased tone. 2 right side. Plantar reflex: Neutral response left side, BKA right side. Gait: not able to walk. Sensory exam: no acute abnormal findings. No cerebellar signs elicited. F-T-N test fine. Objective Objective Vital Signs Date Time Temp Pulse Resp B/P (MAP) Pulse Ox O2 Delivery O2 Flow Rate FiO2 06/29/18 13:54 Nasal Cannula 06/29/18 12:40 99 1.0 06/29/18 11:00 97.9 67 17 99/34 (55) 97.9 Intake and Output 06/29/18 07:00 Intake Total 670 ml Output Total 1140 ml Balance -470 ml Intake Oral 420 ml IV Total 250 ml Output Urine Total 1140 ml # Bowel Movements 1 Vitals Signs Vitals VS - Last 72 Hours, by Label Date Time Temp Pulse Resp B/P (MAP) Pulse Ox O2 Delivery O2 Flow Rate FiO2 06/29/18 13:54 Nasal Cannula 5/24/19 12:40 99 Nasal Cannula 1.0 06/29/18 11:29 Nasal Cannula 1.0 06/29/18 11:00 97.9 67 17 99/34 (55) 99 Nasal Cannula 1.0 97.9 06/29/18 08:30 116/45 06/29/18 08:30 116/45 06/29/18 08:29 116/45 06/29/18 08:00 Nasal Cannula 1.0 06/29/18 07:39 98 Nasal Cannula 1.0 06/29/18 07:00 97.9 66 16 113/45 (67) 98 Nasal Cannula 2.0 97.9 06/29/18 03:26 20 06/29/18 02:51 97.9 65 16 109/39 (62) 96 Nasal Cannula 2.0 97.9 06/29/18 02:26 20 99 Nasal Cannula 2.0 06/28/18 23:00 99.8 68 18 162/54 (90) 99 Nasal Cannula 2.0 99.8 06/28/18 22:14 66 162/54 06/28/18 22:13 66 162/54 06/28/18 20:13 97 Nasal Cannula 2.0 06/28/18 20:13 97 Nasal Cannula 2.0 06/28/18 20:00 Nasal Cannula 2.0 06/28/18 19:00 98.0 67 18 156/41 (79) 96 Nasal Cannula 2.0 98.0 06/28/18 15:00 97.9 69 14 114/26 (55) 97 Nasal Cannula 2.0 97.9 06/28/18 14:00 68 110/29 06/28/18 12:44 Nasal Cannula 2.0 06/28/18 11:00 97.7 68 16 110/29 (56) 95 Room Air 97.7 06/28/18 09:27 69 144/36 06/28/18 09:26 69 144/36 06/28/18 09:25 69 144/36 06/28/18 08:35 98 Nasal Cannula 2.0 06/28/18 08:35 98 Nasal Cannula 2.0 06/28/18 08:00 Nasal Cannula 2.0 06/28/18 07:00 97.5 69 14 144/36 (72) 100 Nasal Cannula 2.0 97.5 Laboratory Laboratory Laboratory Tests Test 06/28/18 16:39 5/23/19 20:56 06/29/18 07:27 06/29/18 11:28 Glucose (Fingerstick) 158 mg/dL (70-99) 192 mg/dL (70-99) 177 mg/dL (70-99) 179 mg/dL (70-99) Test 06/29/18 12:50 Prothrombin Time 23.5 SEC (11.7-14.0) Prothromb Time International Ratio 2.1 (0.8-1.1) Microbiology 06/23/18 Blood Culture - Final, Complete NO GROWTH AFTER 5 DAYS Medication Medications Current Medications Doxycycline Hyclate (Vibra-Tab) 100 mg BID PO Last administered on 06/29/18at 12:40; Start 06/29/18 at 12:00 Warfarin Sodium (Coumadin) 3 mg 1X WARF ONCE PO Last administered on 06/28/18at 17:07; Start 06/28/18 at 16:00; Stop 06/28/18 at 16:01; Status DC Warfarin Sodium (Coumadin) 4 mg 1X WARF ONCE PO ; Start 06/29/18 at 14:00; Stop 06/29/18 at 14:04; Status DC Comment Review of Relevant I have reviewed the following items navi (where applicable) has been applied. LIA MALIN MD June 29, 2018 14:42
[2018-06-29 15:00] VITALS: BP 102/34
--- NOTE | 2018-06-29 17:33 | NUR ---
pt discharged home with hospice via EMS. [facility] services notified. pt stable upon dc. PICC removed from right upper arm, cath intact.
== END 2018-06-29 17:37 | disposition hospice, home (50) | DRG 177 ==
LOC: ER 03:10 → 1 WEST ICU 04:03 → 5 NORTH 06-26 15:34
PROVIDERS: ADMIT Internal Medicine; ATTEND Internal Medicine
PROC: 30233N1 Transfusion of Nonautologous Red Blood Cells into Peripheral Vein, Percutaneous Approach (ICD-10-PCS; principal; 2018-06-23)
DX: J15.6 Pneumonia due to other Gram-negative bacteria (principal); J96.21 Acute and chronic respiratory failure with hypoxia; G93.41 Metabolic encephalopathy; I50.23 Acute on chronic systolic (congestive) heart failure; I48.92 Unspecified atrial flutter; J44.0 Chronic obstructive pulmonary disease with (acute) lower respiratory infection; J44.1 Chronic obstructive pulmonary disease with (acute) exacerbation; K82.1 Hydrops of gallbladder; N39.0 Urinary tract infection, site not specified; I69.354 Hemiplegia and hemiparesis following cerebral infarction affecting left non-dominant side; I24.8 Other forms of acute ischemic heart disease; I42.9 Cardiomyopathy, unspecified; I11.0 Hypertensive heart disease with heart failure; D64.9 Anemia, unspecified; E11.9 Type 2 diabetes mellitus without complications; E78.00 Pure hypercholesterolemia, unspecified; E78.5 Hyperlipidemia, unspecified; G40.909 Epilepsy, unspecified, not intractable, without status epilepticus; I25.10 Atherosclerotic heart disease of native coronary artery without angina pectoris; I48.2 Chronic atrial fibrillation; K21.9 Gastro-esophageal reflux disease without esophagitis; M47.814 Spondylosis without myelopathy or radiculopathy, thoracic region; F32.9 Major depressive disorder, single episode, unspecified; M19.90 Unspecified osteoarthritis, unspecified site; N28.1 Cyst of kidney, acquired; E11.51 Type 2 diabetes mellitus with diabetic peripheral angiopathy without gangrene; E11.42 Type 2 diabetes mellitus with diabetic polyneuropathy; Z66 Do not resuscitate; I49.5 Sick sinus syndrome; Z79.01 Long term (current) use of anticoagulants; Z79.4 Long term (current) use of insulin; Z79.51 Long term (current) use of inhaled steroids; Z79.899 Other long term (current) drug therapy; Z82.49 Family history of ischemic heart disease and other diseases of the circulatory system; Z86.14 Personal history of Methicillin resistant Staphylococcus aureus infection; Z89.511 Acquired absence of right leg below knee; Z87.891 Personal history of nicotine dependence; Z90.49 Acquired absence of other specified parts of digestive tract; Z91.19 Patient's noncompliance with other medical treatment and regimen; Z95.1 Presence of aortocoronary bypass graft; Z95.3 Presence of xenogenic heart valve; Z88.8 Allergy status to other drugs, medicaments and biological substances; I25.2 Old myocardial infarction; E66.9 Obesity, unspecified; Z68.30 Body mass index [BMI] 30.0-30.9, adult
CPT/HCPCS: 36415; 70450; 71045; 71275; 80053; 80162; 80202; 81001; 82553; 82565; 82607; 82962; 83605; 83735; 83880; 84145; 84439; 84443; 84484; 85007; 85014; 85018; 85025; 85610; 86850; 86900; 86901; 86920; 87040; 87493; 87641; 93005; 93970; 94640; 94760; 95816; 96365; 96375; 99291; J1100; J1815; J1940; J2270; J2543; J3370; J3490; J7040; J7050; J7620; J7626; J7644; P9016; Q9967; 97110; 97530; J7030